=== PATIENT | female | born 1955 | race Caucasian/White ===

== ENCOUNTER 2016-06-03 09:45 | Inpatient (IN) | payer OTHER ==
[~2016-06-03] VITALS: Ht 152.4 cm; Wt 53.1 kg
[~2016-06-03 09:45] MED LIST: ASPI-535 PO; BENA20TA48 PO; CLOP75TA27 PO; DILT180C9 PO; FOLI-49 PO; METO-429 PO; MYCO250C6 PO; OMEP20CA16 PO; PRED-253 PO; SENN8.6C3 PO
[2016-06-03 11:02] LABS: BASOPHILS % 0.1 % (0.0-2.0); EOSINOPHILS # 0.1 10^3/ul (0.0-0.5); EOSINOPHILS % 1.7 % (0.0-7.0); HEMATOCRIT 35.9 % (37.0-47.0); HEMOGLOBIN 11.6 g/dl (12.0-16.0); LYMPHOCYTES # 0.8 10^3/ul (0.8-2.9); LYMPHOCYTES % 16.4 % (15.0-51.0); MEAN CORPUSCULAR HEMOGLOBIN 29.2 pg (29.0-33.0); MEAN CORPUSCULAR HGB CONC 32.4 g/dl (32.0-37.0); MEAN CORPUSCULAR VOLUME 90.3 fl (82.0-101.0); MEAN PLATELET VOLUME 10.8 fl (7.4-10.4); MONOCYTE # 0.6 10^3/ul (0.3-0.9); MONOCYTES % 12.4 % (0.0-11.0); NEUTROPHIL # 3.4 10^3/ul (1.6-7.5); NEUTROPHILS % 69.4 % (39.0-77.0); PLATELET COUNT 174 10^3/UL (140-440); RED BLOOD COUNT 3.98 10^6/ul (4.20-5.40); RED CELL DISTRIBUTION WIDTH 15.4 % (11.5-14.5); UNCORRECTED WBC 4.9 10^3/ul (4.8-10.8); WHITE BLOOD COUNT 4.9 10^3/ul (4.8-10.8)
[2016-06-03 11:12] LABS: CONDITION 1; LH ANALYZER COMMENTS 1; NUCLEATED RED BLOOD CELLS # 0.1 10^3/ul (0.0-0.0); SUSPECT 1
[2016-06-03 11:13] VITALS: Ht 152.4 cm; Wt 53.1 kg
[2016-06-03 11:13] LABS: PROTIME 13.2 Sec (12.2-14.2)
[2016-06-03 11:14] LABS: PARTIAL THROMBOPLASTIN TIME 27.3 Sec (25.0-35.0)
[2016-06-03 11:17] VITALS: BP 159/84; PULSE 59; RESP 16
[2016-06-03] MEDS ORDERED: CHOL100062 PO (11:19)
--- NOTE | 2016-06-03 11:23 | CONS ---
Date/Time of Note Date/Time of Note DATE: 06/03/16 TIME: 11:16 Assessment/Plan Assessment/Plan Chief Complaint/Hosp Course VASCULAR SURGERY CONSULTATION Dear Doctors: Ms. Ericka Aguillon is a 61-year-old female with a longstanding history of bilateral lower extremity gangrene and atherosclerosis with diminished bilateral pedal pulses. Of note, this patient, since September 2015, had undergone bilateral lower extremity interventions with endovascular angioplasty, stenting , and arthrectomy. This was done secondary to having bilateral lower extremity gangrene. Unfortunately, the patient was lost to followup secondary to having insurance issues and her not being able to follow up with us. However, she was seen back in [facility] secondary to her increased tissue loss and rest pain of her bilateral lower extremities in which she had followed up with us and underwent bilateral arterial ultrasound that identified the patient having significant infrapopliteal disease which is similar to her prior interventions. Further, the patient was scheduled for an angiogram. Unfortunately, the patient 's insurance had changed; therefore, we had to reschedule her once her new insurance had been approved. The patient has had a history of gangrene, and after intervention of her right lower extremity and left lower extremity, she had developed adequate demarcation of the fourth and fifth toe on the left, and demarcation of her right fifth toe. The patient is somewhat noncompliant and a little bit difficult to accepting our plans as she likes to pursue her own home remedies with applying medications from her holistic care provider and not necessarily compliant with recommendations given for her wound care. The patient and I had extensive conversations regarding the risk and benefits and alternatives for podiatry intervention, anesthesia, and an angiogram. We have explained to her that because she is a kidney transplant recipient, we are very thoughtful as to try to limit the amount of contrast and would like to separate her interventions; however, the patient feels that if she needs to go under another angiogram, she would rather " and not go through it." Therefore, understanding her concern, we went and reviewed all of her wishes as to how she would like to proceed with this procedure. The patient would like to have this procedure done in a way that she has minimal to no pain during her procedure. We have discussed moderate sedation, we have discussed conscious sedation, we have discussed general anesthesia, and she understands that each one will require different evaluation. If the patient chooses to have general anesthesia, then she would require to have cardiac evaluation and clearance for our intervention. If she does choose that route, then will plan to do bilateral lower extremity interventions at one time; however, with thoughtfulness of her being a kidney transplant. We will limit her dye load and will try to CO2 angiogram for interventions and use intravascular ultrasound for our interventions as needed. At the moment she denies shortness of breath, chest pain, nausea, vomiting, fever or chills. She does have bilateral lower extremity rest pain, specifically in the areas of her gangrene. PHYSICAL EXAMINATION: GENERAL: Alert and oriented x3. LUNGS: Clear to auscultation bilaterally. HEART: S1, S2 present. ABDOMEN: Soft, nontender, nondistended. Bowel sounds positive. EXTREMITIES: Right lower extremity palpable femoral pulse, nonpalpable pedal pulse. Motor, sensory intact. Cap refill 3 to 4 seconds. Right fifth toe with gangrene on the lateral aspect of the toe with demarcation and some dependent rubor on the dorsal aspect of the foot. She had previous ulcers that were on her thigh and calf that have now healed. Left lower extremity palpable femoral pulse, nonpalpable pedal pulse. Motor and sensory intact. Cap refill 3 to 4 seconds. She has circumferential gangrene of her 5th toe which is dry and she has her right 4th toe which has partial gangrene with demarcation. However, the gangrene on her 5th toe has expanded slightly further intermetatarsal region which is concerning. At the moment, she does not have any erythema around her gangrene or sign of any infection. ASSESSMENT AND PLAN: -Bilateral lower extremity atherosclerosis with gangrene: It seems that the patient has come to be agreeable with performing an angiogram for the bilateral lower extremities and interventions. However, she has expressed that she would not like to have the angiogram if it causes her pain, she would rather than to have any interventions done. With this in mind, we have discussed multiple options for interventions with her, and she has agreed to either undergo conscious sedation versus general anesthesia. We have explained to her that if she does want to have general anesthesia will have cardiac evaluation and would require further time in order for us to schedule her. -Her gangrene has worsened and requires antibiotics as there's erythema of bilateral feet. -We have discussed with podiatry regarding her gangrene, and they would like for us to pursue first with an angiogram to evaluate lower extremity perfusion prior to any intervention from their standpoint of debridement and possible amputation. -Discussed vascular optimization (BP meds, diet, nutrition, exercise, sugar control, antiplatelets). -Thank you for allowing us to partake in the care of your patient. Please call with any questions. Problems: Consultation Date/Type/Reason Admit Date/Time Social History Smoking Status: Never smoker Exam/Review of Systems Results Result Diagram: 06/03/16 1046 Results 24 hrs Laboratory Tests Test 06/03/16 10:46 06/03/16 10:51 Activated Partial Thromboplast Time 27.3 Basophils # 0.0 Basophils % 0.1 Blood Morphology Comment Eosinophils # 0.1 Eosinophils % 1.7 Hematocrit 35.9 L Hemoglobin 11.6 L INR International Normalized Ratio 1.00 Lymphocytes # 0.8 Lymphocytes % 16.4 Mean Corpuscular Hemoglobin 29.2 Mean Corpuscular Hemoglobin Concent 32.4 Mean Corpuscular Volume 90.3 Mean Platelet Volume 10.8 H Monocytes # 0.6 Monocytes % 12.4 H Neutrophils # 3.4 Neutrophils % 69.4 Nucleated Red Blood Cells # 0.1 H Nucleated Red Blood Cells % 2.0 H Platelet Count 174 # Prothrombin Time 13.2 Prothrombin Time Ratio 1.0 Red Blood Count 3.98 L Red Cell Distribution Width 15.4 H White Blood Count 4.9 # Bedside Glucose 97 WILD DUARTE MD Jun 03, 2016 11:23
[2016-06-03 11:27] LABS: CALCIUM 9.3 mg/dl (8.4-10.2); CREATININE 0.76 mg/dl (0.44-1.00); POTASSIUM 5.2 mmol/L (3.5-5.1)
[2016-06-03 13:30] VITALS: BP 143/69
[2016-06-03] MEDS ORDERED: ACETAMINOPHEN 325 MG TAB PO PRN (14:00)
[2016-06-03] MEDS ORDERED: morphine 10 MG INJ IM PRN (14:30)
[2016-06-03] MEDS: HYDROCODONE/APAP (5/325) TAB PO PRN (14:35)
[2016-06-03] MEDS ORDERED: NA POLYST SULFON 15 GM/60 ML BTL PO ONE (15:30)
--- NOTE | 2016-06-03 15:59 | CONS ---
DATE OF ADMISSION: 06/03/2016 DATE OF CONSULTATION: 06/03/2016 TYPE OF CONSULTATION: Nephrology. REFERRING PHYSICIAN: Dr. Jeffy Cohen/Dr. Aung Valencia REASON FOR CONSULTATION: Kidney transplant patient, to prevent contrast-induced nephropathy in a pat ient who will need lower extremity angiogram. HISTORY OF PRESENT ILLNESS: This is a 61-year-old female with a past medical history of previous en d-stage renal disease secondary to diabetic nephropathy, was on hemodialysis and had a kidney transp lant done in 2009 at [facility]. The patient has been on Prograf, CellCept and prednisone for immunosuppr ession medications. The patient previously had a left upper extremity AV fistula, currently not work ing. She was seen by vascular surgery, Dr. Valencia for lower extremity angiogram and was plannin g to have possible interventions, but the patient is noted to have a potassium of 5.21 chemistry. S he is also gives a history of not taking kidney transplant medications. The patient gives a history off of medications for a kidney transplant for 2 weeks due to her insurance reasons and not recentl y resumed her kidney transplant medications. At the time of my evaluation, currently she denies any chest pain, palpitation, headache, dizziness, blurry vision, constipation, diarrhea, dysuria, increased urinary frequency. REVIEW OF SYSTEMS: As per HPI. PAST MEDICAL HISTORY: 1. Notable for hypertension, diabetes mellitus, history of a previous end-stage renal disease secon jessica to diabetic nephropathy, status post kidney transplant in 2009 at [facility]. 2. Possible peripheral vascular disease. 3. Anemia of chronic renal disease. 4. History of hypertension. PAST SURGICAL HISTORY: History of right lower extremity kidney transplant surgery, history of left upper extremity AV fistula surgery. SOCIAL HISTORY: No smoking, alcohol or recreational drug use. FAMILY HISTORY: Noncontributory. PHYSICAL EXAMINATION: VITAL SIGNS: Temperature 98.2, heart rate 59, respirations 16, blood pressure 159/84, saturation 10 0% on room air. GENERAL: Awake, alert, in no distress. HEENT: Normal. Oropharynx clear. NECK: Supple, no JVD, no lymphadenopathy. LUNGS: Clear to auscultation. No crackles, no wheezes. HEART: S1, S2, with regular rhythm, no murmur. ABDOMEN: Soft, nontender, nondistended. Bowel sounds are present. EXTREMITIES: No clubbing, cyanosis, or edema. NEUROLOGICAL: Nonfocal, intact. Right lower quadrant kidney, renal allograft is present. No bruit s or tenderness. Normal to palpation. LABORATORY DATA AND DIAGNOSTIC IMAGING: Sodium 142, potassium 5.2, chloride 108, bicarbonate 22, B UN 24, creatinine 0.7, glucose 103, calcium 9.3. PT 13.2, PTT 27.3, INR 1. WBC 4.9, hemoglobin 11. 6, platelet count is 174. IMPRESSION: This is a 61-year-old female with: 1. Left lower extremity gangrene getting admitted for possible lower extremity angiogram. 2. Acute hyperkalemia, potassium 5.2. 3. Status post donor kidney transplant in 2009 at [facility], currently on immunosuppression with Prograf , CellCept, prednisone. 4. History of previous end-stage renal disease on hemodialysis secondary to diabetic nephropathy. 5. History of hypertension. 6. History of diabetes mellitus. 7. History of previous left upper extremity arteriovenous fistula. PLAN: 1. Thank you, Dr. Cohen, for this consultation. I will give the patient Kayexalate 15 grams p.o . x1. 2. Renal allograft ultrasound in the right lower quadrant to assess for kidney transplant. 3. Continue the prednisone and CellCept. The patient was on Prograf at home, but does not remember the dose so I will find out about her Prograf dose. We will continue the Prograf also. 4. The patient will be started on Mucomyst 1200 mg p.o. b.i.d. to prevent any contrast-induced neph ropathy. 5. Depending on the patient's course in the hospital, will follow up. Thank you, Dr. Cohen/Dr. Valencia for this consultation. I will continue to follow this patient . Dictated By: RAMON KEMP MD, KP/SIRISHA Conf#: [id number] DID#: [id number]
--- NOTE | 2016-06-03 18:51 | CONS ---
DATE OF ADMISSION: 06/03/2016 DATE OF CONSULTATION: 06/03/2016 TYPE OF CONSULTATION: Infectious Disease. REASON FOR CONSULTATION: Antibiotic management. HISTORY OF PRESENT ILLNESS: Ericka Aguillon is a 61-year-old female who is admitted with gangr frantz of bilateral feet. Her past problems include: 1. History of end-stage renal disease secondary to diabetic nephropathy who had a kidney transplant in 2009 at [facility]. She has been on Prograf, CellCept and prednisone for immunosuppression. 2. Previous left upper extremity AV fistula, currently not working. 3. Severe peripheral vascular disease, probably secondary to her diabetic condition. She is not ta shama her kidney transplant medication as well for the last 2 weeks. Other problems include hyperten sharmin and anemia of chronic disease. PAST SURGICAL HISTORY: History of the right lower extremity surgery, kidney transplant surgery, his tory of left upper extremity AV fistula. PAST MEDICAL HISTORY: Operations as outlined. FAMILY HISTORY: Noncontributory. SOCIAL HISTORY: She does not smoke, drink or abuse drugs. ALLERGIES: NONE TO PENICILLIN, SULFA OR FOODS. MEDICATIONS: Per chart. REVIEW OF SYSTEMS: As per HPI. PHYSICAL EXAMINATION: GENERAL: The patient is a well-developed, somewhat thin female who speaks mostly Bel[place]ian, is alert, responsive, in no acute distress. VITAL SIGNS: Stable. She is afebrile. SKIN: Without generalized rash. HEENT: Within normal limits. NECK: Supple. LYMPH NODES: None palpable. CHEST: Decreased breath sounds at the bases. HEART: Without murmur or gallop. ABDOMEN: Soft, nontender, without organosplenomegaly or masses. EXTREMITIES: The right lower extremity has right fifth toe gangrene on the lateral aspect of the to e with demarcation and some dependent rubor. The left lower extremity has palpable pulses as does t he right have palpable femoral pulses, nonpalpable pedal pulses for both. She has circumferential g angrene of her 5th toe which is dry and she has right fourth toe which has partial gangrene with dem arcation, however, gangrene of the fifth toe has increased slightly. She has no erythema surroundin g the gangrene or signs of infection. RECTAL AND GENITAL: Deferred. NEUROLOGIC: No focal neurological abnormalities. IMPRESSION AND PLAN: The patient has bilateral lower extremity atherosclerosis with gangrene. The issue is performing an angiogram. She does not want any interventions done. She can undergo consci ous sedation versus general anesthesia. Her gangrene has worsened according to Dr. Valencia and re quires antibiotics as there is erythema of bilateral feet. White count is 4.9, H and H 11.6 and 35 .9, platelet count 174,000. I think in view of her kidney problems, we have a choice of either usin g daptomycin, clindamycin or Zyvox and I think that I would prefer to use Zyvox at this point in jessa e. I will dictate my findings to Dr. Valencia and Dr. Theo Briscoe. Dictated By: TRISTAN CHRISTIE MD, JD/SIRISHA Conf#: [id number] DID#: [id number]
--- NOTE | 2016-06-03 19:06 | HP ---
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 The patient with bilateral lower extremity atheroscler osis. The patient was followed by Dr. Valencia and had multiple interventions including endovascul ar angioplasty, stenting and arthrectomy. The patient also had a history of skin graft to thigh les ions. The patient also presented with bilateral gangrenous toes, a right gangrenous toe that the pa tient developed 1 year ago and 5th and 4th metatarsal gangrenous ulcers on the left lower extremity that the patient stated started developing 2 years ago. The patient also complains of bilateral low er extremity pain and worsened gangrene and presented to [facility]. The patient was not followed due to loss of insurance for some time. However, she presented to [facility], was seen by Dr. Valencia and underwent bilateral arterial ultrasound that identified significant infrapopliteal disease. The patient is admitted for further evaluation and management. The patient denied any fever. Denies any chest pain, denies shortness of breath. Denies nausea, v omiting, diarrhea. PAST MEDICAL HISTORY: Per HPI. PAST SURGICAL HISTORY: Status post renal transplant in 2009, status post left upper extremity arter iovenous fistula for dialysis many years ago, status post skin graft to the thigh and status post nu merous vascular interventions. FAMILY HISTORY: Negative for diabetes and cardiac disease. SOCIAL HISTORY: The patient lives at home with her family. The patient denies any tobacco use, den ies any illicit drug use, denies any alcohol use. ALLERGIES: THE PATIENT HAS NO KNOWN ALLERGIES. MEDICATIONS ON ADMISSION: 1. Benazepril. 2. Cholecalciferol. 3. Plavix. 4. Diltiazem. 5. Folic acid. 6. Metoprolol. 7. CellCept. 8. Omeprazole. 9. Prednisone. 10. Sennosides. REVIEW OF SYSTEMS: A 12-point review of systems is negative unless what mentioned in HPI. PHYSICAL ASSESSMENT: GENERAL: A well-developed, well-nourished female in no acute distress. VITAL SIGNS: Temperature is 98.2, pulse is 59, blood pressure is 143/69, respiratory rate 16, oxyge n saturation 100% on room air. HEENT: Head is atraumatic, normocephalic. Pupils equal, round, reactive to light and accommodation . Oral mucosa is pink, moist. NECK: Supple. No cervical lymphadenopathy, no thyromegaly. CHEST: Lungs clear bilaterally. There are no rhonchi, wheezes, rales noted. CARDIOVASCULAR: Normal S1, S2. The patient has systolic murmur III/. ABDOMEN: Round, soft, nondistended, nontender. Bowel sounds present. There is no guarding or rebo und tenderness. EXTREMITIES: The patient has right 5th toe gangrene and left 5th and 4th toe gangrene, and patient has multiple discolorations over bilateral thighs. SKIN: There is no rash, petechiae. NEUROLOGIC: The patient is awake, alert and oriented x4. No focal deficit noted. Motor strength o f 5/5 in all extremities. LABORATORY DATA ON ADMISSION: CBC: White blood cells 4.9, hemoglobin is 11.6, hematocrit 35.9, princess telets 178. Chemistry: Sodium is 142, potassium 5.2, chloride 108, carbon dioxide 22, anion gap 17 , BUN is 24, creatinine 0.76, glucose 103, calcium is 9.3. PT 13.2, INR is 1.08, PTT is 27.3. ASSESSMENT AND PLAN: 1. Bilateral lower extremity atherosclerosis with gangrene. The patient is followed by Dr. Subhash alicea in vascular surgery consultation, planned for an angiogram. Will obtain cardiology clearance maegan Powell. 2. End-stage renal disease, status post renal transplant. Continue patient on prednisone and CellC ept. 3. Hypertension. Continue benazepril, Lopressor and diltiazem. 4. 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 Continue Plavix. 5. Anemia of chronic kidney disease. Continue to monitor hemoglobin and hematocrit. 6. Severe peripheral arterial disease. PLAN: Will continue Madeline and morphine for pain and Zofran p.r.n. for nausea. Resume patient's anastacio e medication. Will obtain 2D echo. Further recommendations based on clinical course. Plan of care discussed with Dr. Hall. Dictated By: LES GILLILAND NP anibal HALL MD, SR/SIRISHA Conf#: [id number] DID#: [id number]
[2016-06-03] MEDS: SENNA TAB PO SCH (20:52)
[2016-06-03] MEDS: LINEZOLID 600 MG/D5W (PMX) 300 ML IVPB SCH (20:52)
[2016-06-03] MEDS: MYCOPHENOLATE 250 MG CAP PO SCH (20:52)
[2016-06-03] MEDS: TACROLIMUS 0.5 MG CAP PO SCH (20:53)
[2016-06-03] MEDS: ACETYLCYSTEINE 600 MG CAP PO SCH (20:53)
[2016-06-03] MEDS: METOPROLOL 50 MG TAB PO SCH (20:54)
[2016-06-03] MEDS ORDERED: SENNA TAB PO SCH (21:00)
--- NOTE | 2016-06-03 21:48 | CONS ---
DATE OF ADMISSION: 06/03/2016 DATE OF CONSULTATION: 06/03/2016 REASON FOR CONSULTATION: Preoperative evaluation. REQUESTING PHYSICIAN: Dr. Duarte from the vascular surgery service and Dr. Kristin Hall. HISTORY OF PRESENT ILLNESS: Ms. Aguillon is a very pleasant 61-year-old Sierra Leonean speaking female with a history of prior kidney transplantation in 2009, PAD with nonhealing left lower extremity gangrenou s changes of the toe, hypertension who [facility] with ongoing nonheal ing ulceration and gangrenous changes. The patient has now been admitted for further evaluation wit h possible need for surgical intervention for treatment of her gangrenous toe. At this time, the pa mirandant denies chest pain, shortness of breath, prior myocardial infarction, CVA. PAST MEDICAL HISTORY: As above in HPI. MEDICATIONS CURRENTLY IN HOSPITAL: 1. Benazepril 10 mg daily. 2. Plavix 75 mg daily. 3. Diltiazem CD ____ mg daily. 4. Folic acid 1 mg daily. 5. Prednisone 5 mg daily. 6. Lopressor 50 mg p.o. b.i.d. 7. CellCept 1000 mg b.i.d. 8. Senna 8.6 p.o. b.i.d. 9. Mucomyst 1200 mg b.i.d. 10. Prograf 0.5 q.12h. 11. Linezolid q.12. 12. [place] p.r.n. 13. Morphine p.r.n. ALLERGIES: NO KNOWN DRUG ALLERGIES. SOCIAL HISTORY: No tobacco, ETOH, or illicit drug use. FAMILY HISTORY: No history of sudden cardiac or early CAD. REVIEW OF SYSTEMS: As above in HPI. CONSTITUTIONAL: No fevers, chills. PULMONARY: No current shortness of breath. CARDIOVASCULAR: No current chest pain. GASTROINTESTINAL: No vomiting. GENITOURINARY: No hematuria. MUSCULOSKELETAL: Left toe gangrenous changes. PSYCHIATRIC: No documented psych history. NEUROLOGIC: No documented history of CVA. ENDOCRINE: Diabetes mellitus. PHYSICAL EXAMINATION: VITAL SIGNS: Temperature 98.2, blood pressure most recently 143/69, pulse in the 60s, respirations 16, saturating 99%. GENERAL: The patient is alert, awake, in no acute distress. NECK: JVP approximately 9 cm water. CHEST: Fair movement throughout with mildly decreased breath sounds at bases bilaterally. HEART: Regular rate and rhythm. Normal S1, S2. I/ systolic murmur, nondisplaced PMI. ABDOMEN: Positive bowel sounds, soft. EXTREMITIES: Trace edema. Difficult to palpate distal pulses, bilateral posterior tibial. Gangren ous changes the toe. LABORATORY DATA: As above in HPI. No further labs for my review at this time. IMAGING STUDIES: As above in HPI. Her chest x-ray from the revealing no acute cardiopulmonary abnormalities. Lower extremity arterial Doppler revealing abnormal flow in the calf arteries with significant stenosis on the left side. Abnormal flow is present throughout, which may indicate infl ow disease at the iliac. A foot x-ray that also revealed no definite radiographic evidence of acute fracture or osteomyelitis, but ____ is somewhat limited evaluation. The patient additionally has h ad a stress test in 10/2015. At that time revealing mildly diminished diffusion along the inferior wall on stress and rest images without evidence for reversible ischemia. ELECTROCARDIOGRAM: Reveals normal sinus rhythm at 62, normal axis, normal intervals, with inferior T-wave inversion, anterior T-wave inversion. IMPRESSION: 1. Preoperative evaluation prior to intervention on lower extremities for gangrenous changes of the toe. 2. Abnormal electrocardiogram, assess for acute coronary syndrome. 3. Hypertension, mildly elevated. 4. Status post renal transplant. 5. Peripheral arterial disease with lower extremity gangrenous changes and nonhealing wound. 6. Anemia, mild. RECOMMENDATIONS: 1. At this time, would check serial EKGs to assess for any significant ongoing changes. EKG in the morning, EKG for any complaints of chest pain or change in rhythm. 2. Will check a 2D echo to reassess the patient's ejection fraction, wall motion, and any major shreya ve abnormalities. 3. Continue the patient's current beta-donna to control heart rate and blood pressure. 4. Continue the patient's Plavix at this time for prevention of cardiovascular events. 5. Would discontinue the patient's diltiazem and benazepril with further up titration as necessary to improve overall systolic blood pressure control. 6. Continue patient's local wound care. 7. Further recommendations pertaining to the surgical candidacy of this patient will be made after completion of above studies. Dictated By: TIMOTHY SOSA/SIRISHA Conf#: [id number] [facility]#: [id number] CC: KRISTIN HALL MD; WILD DUARTE MD;*[facility]*
[2016-06-04 06:00] LABS: BASOPHILS % 0.1 % (0.0-2.0); EOSINOPHILS # 0.1 10^3/ul (0.0-0.5); EOSINOPHILS % 2.6 % (0.0-7.0); HEMATOCRIT 33.4 % (37.0-47.0); HEMOGLOBIN 10.6 g/dl (12.0-16.0); LYMPHOCYTES # 0.8 10^3/ul (0.8-2.9); MEAN CORPUSCULAR HGB CONC 31.9 g/dl (32.0-37.0); MEAN PLATELET VOLUME 11.3 fl (7.4-10.4); MONOCYTE # 0.8 10^3/ul (0.3-0.9); MONOCYTES % 17.7 % (0.0-11.0); NEUTROPHIL # 2.8 10^3/ul (1.6-7.5); NEUTROPHILS % 61.6 % (39.0-77.0); PLATELET COUNT 157 10^3/UL (140-440); RED BLOOD COUNT 3.67 10^6/ul (4.20-5.40); RED CELL DISTRIBUTION WIDTH 15.4 % (11.5-14.5); UNCORRECTED WBC 4.5 10^3/ul (4.8-10.8); WHITE BLOOD COUNT 4.5 10^3/ul (4.8-10.8)
[2016-06-04 06:16] LABS: ALBUMIN 3.3 g/dl (3.3-4.9); INR 1.14; POTASSIUM 4.7 mmol/L (3.5-5.1); PROTIME 14.6 Sec (12.2-14.2); PT RATIO 1.1
[2016-06-04 06:17] LABS: PARTIAL THROMBOPLASTIN TIME 28.5 Sec (25.0-35.0)
[2016-06-04 06:18] LABS: CREATININE 0.84 mg/dl (0.44-1.00)
[2016-06-04 06:19] LABS: ALBUMIN/GLOBULIN RATIO 1.32; TOTAL PROTEIN 5.8 g/dl (6.1-8.1)
[2016-06-04 06:20] LABS: CALCIUM 8.8 mg/dl (8.4-10.2)
[2016-06-04 06:29] LABS: CONDITION 1; LH ANALYZER COMMENTS 1
[2016-06-04 06:34] LABS: CHOL/HDL RATIO 4.5 RATIO
[2016-06-04 07:26] VITALS: BP 118/68; RESP 18
[2016-06-04] MEDS: CHOLECALCIFEROL 1,000 UNIT TAB PO SCH (08:44)
[2016-06-04] MEDS: TACROLIMUS 0.5 MG CAP PO SCH ×2 (08:44→20:33)
[2016-06-04] MEDS: ACETYLCYSTEINE 600 MG CAP PO SCH ×2 (08:45→20:33)
[2016-06-04] MEDS: METOPROLOL 50 MG TAB PO SCH ×2 (08:45→20:37)
[2016-06-04] MEDS: BENAZEPRIL 20 MG TAB PO SCH (08:45)
[2016-06-04] MEDS: MYCOPHENOLATE 250 MG CAP PO SCH ×2 (08:46→20:33)
[2016-06-04] MEDS: FOLIC ACID 1 MG TAB PO SCH (08:46)
[2016-06-04] MEDS: CLOPIDOGREL 75 MG TAB PO SCH (08:46)
[2016-06-04] MEDS: predniSONE 5 MG TAB PO SCH (08:46)
[2016-06-04] MEDS: SENNA TAB PO SCH ×2 (08:46→20:33)
[2016-06-04] MEDS: LINEZOLID 600 MG/D5W (PMX) 300 ML IVPB SCH ×2 (08:47→20:33)
[2016-06-04] MEDS: DILTIAZEM (CD) 180 MG CAP PO SCH (08:48)
--- NOTE | 2016-06-04 10:33 | CONS ---
Date/Time of Note Date/Time of Note DATE: 06/04/16 TIME: 10:30 Assessment/Plan Assessment/Plan Additional Assessment/Plan 1. Preoperative evaluation prior to intervention on lower extremities for gangrenous changes of the toe- no evidence of ischemia. Pt had Stress test 2015 - no reversible disae. OK to proceed with vascular studies/Rx as needed. 2. Abnormal electrocardiogram, assess for acute coronary syndrome. 3. Hypertension, mildly elevated- BP well Rx now. 4. Status post renal transplant- renal team to follow. 5. Peripheral arterial disease with lower extremity gangrenous changes and nonhealing wound- awaiting vascular dispo and care. 6. Anemia, mild- H/H stable - no bleeding noted. Consultation Date/Type/Reason Admit Date/Time Jun 03, 2016 at 11:09 Initial Consult Date 24 HR Interval Summary Free Text/Dictation no evidence of ischemia. Pt had Stress test 10/2015 - no reversible disease. OK to proceed with vascular studies/Rx as needed. Stable. ROS: No fever, no chills, no nausea, no vomiting, no diarrhea/constipation No recent weight changes No chest pain, no PND, no orthopnea No dizziness, blurred vision No thirst, no heat or cold intolerance Exam/Review of Systems Vital Signs Vitals Vital Signs Date Time Temp Pulse Resp B/P Pulse Ox O2 Delivery O2 Flow Rate FiO2 06/04/16 07:26 97.9 64 18 118/68 100 06/03/16 11:17 Room Air Intake and Output 06/03/16 06/03/16 06/04/16 15:00 23:00 07:00 Intake Total 940 ml 200 ml Balance 940 ml 200 ml Exam General: WN/WD/NAD, AOx 3 (Bulgarian) HEENT: Unicetric/atraumatic/EOMI (follow commands) NECK: JVD elevated, no thyromegaly Lymph: no lymphadenopathy HEART: regular with no S3, II/ systolic murmur at apex LUNGS: Coarse sounds ABD: soft, NT, ND, +BS : Intact Neuro: non focal SKIN: chronic changes EXT: trace edema, PAD Results Result Diagram: 06/04/16 0455 06/04/16 0455 Results 24 hrs Laboratory Tests Test 06/03/16 10:46 06/03/16 10:51 06/04/16 01:09 06/04/16 04:55 Activated Partial Thromboplast Time 27.3 28.5 Anion Gap 17 H 15 Basophils # 0.0 0.0 Basophils % 0.1 0.1 Blood Morphology Comment Blood Urea Nitrogen 24 H 22 H Calcium Level 9.3 8.8 Carbon Dioxide Level 22 26 Chloride Level 108 106 Creatinine 0.76 0.84 Eosinophils # 0.1 0.1 Eosinophils % 1.7 2.6 Glucose Level 103 98 Hematocrit 35.9 L 33.4 L Hemoglobin 11.6 L 10.6 L INR International Normalized Ratio 1.00 1.14 Lymphocytes # 0.8 0.8 Lymphocytes % 16.4 18.0 Mean Corpuscular Hemoglobin 29.2 29.0 Mean Corpuscular Hemoglobin Concent 32.4 31.9 L Mean Corpuscular Volume 90.3 91.0 Mean Platelet Volume 10.8 H 11.3 H Monocytes # 0.6 0.8 Monocytes % 12.4 H 17.7 H Neutrophils # 3.4 2.8 Neutrophils % 69.4 61.6 Nucleated Red Blood Cells # 0.1 H 0.0 Nucleated Red Blood Cells % 2.0 H 0.0 Platelet Count 174 # 157 Potassium Level 5.2 H 4.7 Prothrombin Time 13.2 14.6 H Prothrombin Time Ratio 1.0 1.1 Red Blood Count 3.98 L 3.67 L Red Cell Distribution Width 15.4 H 15.4 H Sodium Level 142 142 White Blood Count 4.9 # 4.5 L Bedside Glucose 97 Troponin I 0.018 < 0.012 Alanine Aminotransferase (ALT/SGPT) 30 Albumin 3.3 Albumin/Globulin Ratio 1.32 Alkaline Phosphatase 170 H Aspartate Amino Transf (AST/SGOT) 24 Cholesterol Level 155 Cholesterol/HDL Ratio 4.5 Direct Bilirubin 0.00 Globulin 2.50 HDL Cholesterol 34 L Indirect Bilirubin 0.0 LDL Cholesterol, Calculated 101 Total Bilirubin 0.0 L Total Protein 5.8 L Triglycerides Level 99 Medications Medications Current Medications Benazepril HCl (Lotensin) 10 mg DAILY PO Last administered on 06/04/16 08:45; Admin Dose 10 MG; Start 06/04/16 at 09:00 Cholecalciferol (Vitamin D) 1,000 unit DAILY PO Last administered on 06/04/16 08:44; Admin Dose 1,000 UNIT; Start 06/04/16 at 09:00 Clopidogrel Bisulfate (plaVIX) 75 mg DAILY PO Last administered on 06/04/16 08 :46; Admin Dose 75 MG; Start 06/04/16 at 09:00 Diltiazem HCl (Cardizem Cd) 180 mg DAILY PO Last administered on 06/04/16 08: 48; Admin Dose 180 MG; Start 06/04/16 at 09:00 Folic Acid (Folic Acid) 1 mg DAILY PO Last administered on 06/04/16 08:46; Admin Dose 1 MG; Start 06/04/16 at 09:00 Metoprolol Tartrate (Lopressor) 50 mg BID PO Last administered on 06/03/16 20: 54; Admin Dose 50 MG; Start 06/03/16 at 21:00 Mycophenolate Mofetil (Cellcept) 1,000 mg BID PO Last administered on 08:46; Admin Dose 1,000 MG; Start 06/03/16 at 21:00 Prednisone (Prednisone) 5 mg DAILY PO Last administered on 06/04/16 08:46; Admin Dose 5 MG; Start 06/04/16 at 09:00 Acetaminophen (Tylenol Tab) 650 mg Q4H PRN PO PAIN AND OR ELEVATED TEMP; Start 06/03/16 at 14:00 Acetaminophen/ Hydrocodone Bitart ([place] (5/325)) 1 tab Q4H PRN PO PAIN Last administered on 06/03/16 14:35; Admin Dose 1 TAB; Start 06/03/16 at 14:30 Morphine Sulfate (morphine) 2 mg Q4H PRN IV PAIN 7-10; Start 06/03/16 at 14:00 Acetylcysteine (Nac) 1,200 mg BID PO Last administered on 06/04/16 08:45; Admin Dose 1,200 MG; Start 06/03/16 at 21:00 Tacrolimus 0.5 mg 0.5 mg Q12 PO Last administered on 06/04/16 08:44; Admin Dose 0.5 MG; Start 06/03/16 at 21:00 Linezolid (Zyvox 600mg/D5W (Pmx)) 300 ml @ 300 mls/hr Q12 IVPB Last administered on 06/04/16 08:47; Admin Dose 300 MLS/HR; Start 06/03/16 at 21:00 Senna (Senokot) 1 tab BID PO Last administered on 06/04/16t 08:46; Admin Dose 1 TAB; Start 06/03/16 at 21:00 MIRELLA MOSER MD Jun 04, 2016 10:33
--- NOTE | 2016-06-04 12:20 | CONS ---
Date/Time of Note Date/Time of Note DATE: 06/04/16 TIME: 12:17 Assessment/Plan Assessment/Plan Additional Assessment/Plan 1. Left lower extremity gangrene getting admitted for possible lower extremity angiogram. 2. Acute hyperkalemia, potassium 5.2. 3. Status post donor kidney transplant in 2009 at [facility], currently on immunosuppression with Prograf, CellCept, prednisone. 4. History of previous end-stage renal disease on hemodialysis secondary to diabetic nephropathy. 5. History of hypertension. 6. History of diabetes mellitus. 7. History of previous left upper extremity arteriovenous fistula. PLAN: K normal today Plan for Right lower quadrant Renal allograft US pt is cleared to have angigoram from renal point of view, currently she is on Mucocyst BID will start IVF hydration with NS 1mg/kg/hr Pre and Post angiogram will follow up Consultation Date/Type/Reason Admit Date/Time Jun 03, 2016 at 11:09 Initial Consult Date May Type of Consultation: NEPHROLOGY Reason for Consultation Kidney transplant pt with LE gangrene, evaluate for prevention of contrast induced nephropathy Referring Provider: WILD DUARTE MD 24 HR Interval Summary Free Text/Dictation pt remained stable, possible plan for LE angiogram on Friday Exam/Review of Systems Vital Signs Vitals Vital Signs Date Time Temp Pulse Resp B/P Pulse Ox O2 Delivery O2 Flow Rate FiO2 06/04/16 07:26 97.9 64 18 118/68 100 06/03/16 11:17 Room Air Intake and Output 06/03/16 06/03/16 06/04/16 14:59 22:59 06:59 Intake Total 940 ml 200 ml Balance 940 ml 200 ml Exam GENERAL: Awake, alert, in no distress. HEENT: Normal. Oropharynx clear. NECK: Supple, no JVD, no lymphadenopathy. LUNGS: Clear to auscultation. No crackles, no wheezes. HEART: S1, S2, with regular rhythm, no murmur. ABDOMEN: Soft, nontender, nondistended. Bowel sounds are present. EXTREMITIES: No clubbing, cyanosis, or edema. NEUROLOGICAL: Nonfocal, intact. Right lower quadrant kidney, renal allograft is present. No bruits or tenderness. Normal to palpation. Results Result Diagram: 06/04/16 0455 06/04/16 0455 Results 24 hrs Laboratory Tests Test 06/04/16 01:09 06/04/16 04:55 Troponin I 0.018 < 0.012 Activated Partial Thromboplast Time 28.5 Alanine Aminotransferase (ALT/SGPT) 30 Albumin 3.3 Albumin/Globulin Ratio 1.32 Alkaline Phosphatase 170 H Anion Gap 15 Aspartate Amino Transf (AST/SGOT) 24 Basophils # 0.0 Basophils % 0.1 Blood Morphology Comment Blood Urea Nitrogen 22 H Calcium Level 8.8 Carbon Dioxide Level 26 Chloride Level 106 Cholesterol Level 155 Cholesterol/HDL Ratio 4.5 Creatinine 0.84 Direct Bilirubin 0.00 Eosinophils # 0.1 Eosinophils % 2.6 Globulin 2.50 Glucose Level 98 HDL Cholesterol 34 L Hematocrit 33.4 L Hemoglobin 10.6 L INR International Normalized Ratio 1.14 Indirect Bilirubin 0.0 LDL Cholesterol, Calculated 101 Lymphocytes # 0.8 Lymphocytes % 18.0 Mean Corpuscular Hemoglobin 29.0 Mean Corpuscular Hemoglobin Concent 31.9 L Mean Corpuscular Volume 91.0 Mean Platelet Volume 11.3 H Monocytes # 0.8 Monocytes % 17.7 H Neutrophils # 2.8 Neutrophils % 61.6 Nucleated Red Blood Cells # 0.0 Nucleated Red Blood Cells % 0.0 Platelet Count 157 Potassium Level 4.7 Prothrombin Time 14.6 H Prothrombin Time Ratio 1.1 Red Blood Count 3.67 L Red Cell Distribution Width 15.4 H Sodium Level 142 Total Bilirubin 0.0 L Total Protein 5.8 L Triglycerides Level 99 White Blood Count 4.5 L Medications Medications Current Medications Benazepril HCl (Lotensin) 10 mg DAILY PO Last administered on 06/04/16 08:45; Admin Dose 10 MG; Start 06/04/16 at 09:00 Cholecalciferol (Vitamin D) 1,000 unit DAILY PO Last administered on 06/04/16 08:44; Admin Dose 1,000 UNIT; Start 06/04/16 at 09:00 Clopidogrel Bisulfate (plaVIX) 75 mg DAILY PO Last administered on 06/04/16 08 :46; Admin Dose 75 MG; Start 06/04/16 at 09:00 Diltiazem HCl (Cardizem Cd) 180 mg DAILY PO Last administered on 06/04/16 08: 48; Admin Dose 180 MG; Start 06/04/16 at 09:00 Folic Acid (Folic Acid) 1 mg DAILY PO Last administered on 06/04/16 08:46; Admin Dose 1 MG; Start 06/04/16 at 09:00 Metoprolol Tartrate (Lopressor) 50 mg BID PO Last administered on 06/03/16 20: 54; Admin Dose 50 MG; Start 06/03/16 at 21:00 Mycophenolate Mofetil (Cellcept) 1,000 mg BID PO Last administered on 08:46; Admin Dose 1,000 MG; Start 06/03/16 at 21:00 Prednisone (Prednisone) 5 mg DAILY PO Last administered on 06/04/16 08:46; Admin Dose 5 MG; Start 06/04/16 at 09:00 Acetaminophen (Tylenol Tab) 650 mg Q4H PRN PO PAIN AND OR ELEVATED TEMP; Start 06/03/16 at 14:00 Acetaminophen/ Hydrocodone Bitart ([place] (5/325)) 1 tab Q4H PRN PO PAIN Last administered on 06/03/16 14:35; Admin Dose 1 TAB; Start 06/03/16 at 14:30 Morphine Sulfate (morphine) 2 mg Q4H PRN IV PAIN 7-10; Start 06/03/16 at 14:00 Acetylcysteine (Nac) 1,200 mg BID PO Last administered on 06/04/16 08:45; Admin Dose 1,200 MG; Start 06/03/16 at 21:00 Tacrolimus 0.5 mg 0.5 mg Q12 PO Last administered on 06/04/16 08:44; Admin Dose 0.5 MG; Start 06/03/16 at 21:00 Linezolid (Zyvox 600mg/D5W (Pmx)) 300 ml @ 300 mls/hr Q12 IVPB Last administered on 06/04/16 08:47; Admin Dose 300 MLS/HR; Start 06/03/16 at 21:00 Senna (Senokot) 1 tab BID PO Last administered on 06/04/16 08:46; Admin Dose 1 TAB; Start 06/03/16 at 21:00 RAMON KEMP MD Jun 04, 2016 12:20
--- NOTE | 2016-06-04 12:55 | PN ---
Date/Time of Note Date/Time of Note DATE: 06/04/16 TIME: 12:52 Assessment/Plan Lines/Catheters IV Catheter Type (from [facility]): Peripheral IV [place] in Place (from [facility]): No Assessment/Plan Chief Complaint/Hosp Course -Bilateral lower extremity atherosclerosis with gangrene: It seems that the patient has come to be agreeable with performing an angiogram for the bilateral lower extremities and interventions. However, she has expressed that she would not like to have the angiogram if it causes her pain, she "would rather than to have any interventions done". With this in mind, we have discussed multiple options for interventions with her, and she has agreed to either undergo conscious sedation versus general anesthesia. We have explained to her that if she does want to have general anesthesia will have cardiac evaluation and would require further time in order for us to schedule her. -Her gangrene has worsened and requires antibiotics as there's erythema of bilateral feet. -We have discussed with podiatry regarding her gangrene, and they would like for us to pursue first with an angiogram to evaluate lower extremity perfusion prior to any intervention from their standpoint of debridement and possible amputation. -Will need nephrology evaluation and hydration prior to intervention - appreciate nephrology feedback -Discussed vascular optimization (BP meds, diet, nutrition, exercise, sugar control, antiplatelets). -Thank you for allowing us to partake in the care of your patient. Please call with any questions. Problems: Subjective 24 Hr Interval Summary no new vascular events overnight Exam/Review of Systems Vital Signs Vitals Vital Signs Date Time Temp Pulse Resp B/P Pulse Ox O2 Delivery O2 Flow Rate FiO2 06/04/16 07:26 97.9 64 18 118/68 100 06/03/16 11:17 Room Air Intake and Output 06/03/16 06/03/16 06/04/16 15:00 23:00 07:00 Intake Total 940 ml 200 ml Balance 940 ml 200 ml Exam Free Text/Dictation GENERAL: Alert and oriented x3. LUNGS: Clear to auscultation bilaterally. HEART: S1, S2 present. ABDOMEN: Soft, nontender, nondistended. Bowel sounds positive. EXTREMITIES: Right lower extremity palpable femoral pulse, nonpalpable pedal pulse. Motor, sensory intact. Cap refill 3 to 4 seconds. fifth toe with gangrene on the lateral aspect of the toe with demarcation with erythema and some dependent rubor on the dorsal aspect of the foot. She had previous ulcers that were on her thigh and calf that have now healed. Left lower extremity palpable femoral pulse, nonpalpable pedal pulse. Motor and sensory intact. Cap refill 3 to 4 seconds. She has circumferential gangrene of her 5th toe which is dry and she has her right 4th toe which has partial gangrene with demarcation with erythema, the gangrene on her 5th toe has expanded slightly further intermetatarsal region which is concerning Results Result Diagram: 06/04/16 0455 06/04/16 0455 WILD DUARTE MD Jun 04, 2016 12:55
--- NOTE | 2016-06-04 13:11 | PN ---
DATE: 06/04/2016 INFECTIOUS DISEASE PROGRESS NOTE SUBJECTIVE: The patient is alert, sitting up in a chair. Looks comfortable, complaining of left fo ot pain. She is in no distress. No fevers. ANTIMICROBIALS: She is on Zyvox. MICROBIOLOGY: Cultures are pending. LABORATORY DATA: WBC today 4.5, platelets 157, no shift, no bands. BUN 22, creatinine 0.84. PHYSICAL EXAMINATION: GENERAL: This is a well-nourished, well-developed, fragile, elderly woman who is alert, in no distr ess. HEENT: Head atraumatic, normocephalic. Sclerae anicteric. Buccal mucosa pink. NECK: Supple, trachea midline. CHEST: Rise symmetrical. Breath sounds clear. HEART: S1, S2. ABDOMEN: Soft, bowel sounds present. EXTREMITIES: Left foot gangrenous change and wound with some drainage. Right foot also with some g angrenous changes. ASSESSMENT: 1. Bilateral lower extremity gangrene. 2. End-stage renal disease with a history of kidney transplant in 2009, on Prograf, CellCept, and p rednisone. 3. History of left upper extremity AV fistula currently not working. 4. Severe peripheral vascular disease. PLAN: The patient remains stable. We will keep her on current antimicrobials for now. Follow telma mmendations of consultants. Pending angiogram. Dictated By: JACQUES HUERTA E [employer] for TRISTAN RIOS/SIRISHA Conf#: [id number] DID#: [id number]
--- NOTE | 2016-06-04 14:38 | RADRPT ---
Vent Rate: 62 bpm RR Interval: 0 msec [place] Interval: 174 msec QRS Duration: 84 msec QT Interval: 468 msec QTC Interval: 475 msec P-R-T [place]: 55 - 44 - 19 degrees Normal sinus rhythm Nonspecific T wave abnormality Prolonged QT Abnormal ECG Electronically Signed By: Dionicio Maza [id number]
--- NOTE | 2016-06-04 14:43 | RADRPT ---
Vent Rate: 60 bpm RR Interval: 0 msec [place] Interval: 172 msec QRS Duration: 86 msec QT Interval: 432 msec QTC Interval: 432 msec P-R-T [place]: 52 - 47 - 10 degrees Normal sinus rhythm Nonspecific T wave abnormality Abnormal ECG Electronically Signed By: Dionicio Maza [id number]
--- NOTE | 2016-06-04 16:28 | PN ---
Date/Time of Note Date/Time of Note DATE: 06/04/16 TIME: 16:25 Assessment/Plan VTE Prophylaxis VTE Prophylaxis Intervention: SCD's Lines/Catheters IV [facility]ter Type (from [facility]): Peripheral IV Urinary Cath still in place: No Assessment/Plan Chief Complaint/Hosp Course ASSESSMENT AND PLAN: 1. Bilateral lower extremity atherosclerosis with gangrene. The patient is followed by Dr. Valencia in vascular surgery consultation, planned for an angiogram. cardiology clearance from Dr. Powell. Dr. Bowen is following from infectious disease standpoint. 2. End-stage renal disease, status post renal transplant. Continue patient on prednisone and CellCept. 3. Hypertension. Continue benazepril, Lopressor and diltiazem. 4. 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 Continue Plavix. 5. Anemia of chronic kidney disease. Continue to monitor hemoglobin and hematocrit. 6. Severe peripheral arterial disease. Further recommendations based on clinical course. Plan of care discussed with Dr. Cohen. Problems: Subjective 24 Hr Interval Summary Free Text/Dictation Patient is undergoing ultrasound currently, no nausea vomiting, remains afebrile , pain is well controlled. Exam/Review of Systems Vital Signs Vitals Vital Signs Date Time Temp Pulse Resp B/P Pulse Ox O2 Delivery O2 Flow Rate FiO2 06/04/16 07:26 97.9 64 18 118/68 100 06/03/16 11:17 Room Air Intake and Output 06/03/16 06/03/16 06/04/16 15:00 23:00 07:00 Intake Total 940 ml 200 ml Balance 940 ml 200 ml Exam PHYSICAL ASSESSMENT: GENERAL: A well-developed, well-nourished female in no acute distress. HEENT: Head is atraumatic, normocephalic. Pupils equal, round, reactive to light and accommodation. Oral mucosa is pink, moist. NECK: Supple. No cervical lymphadenopathy, no thyromegaly. CHEST: Lungs clear bilaterally. There are no rhonchi, wheezes, rales noted. CARDIOVASCULAR: Normal S1, S2. The patient has systolic murmur III/. ABDOMEN: Round, soft, nondistended, nontender. Bowel sounds present. There is no guarding or rebound tenderness. EXTREMITIES: The patient has right 5th toe gangrene and left 5th and 4th toe gangrene, and patient has multiple discolorations over bilateral thighs. SKIN: There is no rash, petechiae. NEUROLOGIC: The patient is awake, alert and oriented x4. Results Result Diagram: 06/04/16 0455 06/04/16 0455 Results 24 hrs Laboratory Tests Test 06/04/16 01:09 06/04/16 04:55 06/04/16 14:20 Troponin I 0.018 < 0.012 < 0.012 Activated Partial Thromboplast Time 28.5 Alanine Aminotransferase (ALT/SGPT) 30 Albumin 3.3 Albumin/Globulin Ratio 1.32 Alkaline Phosphatase 170 H Anion Gap 15 Aspartate Amino Transf (AST/SGOT) 24 Basophils # 0.0 Basophils % 0.1 Blood Morphology Comment Blood Urea Nitrogen 22 H Calcium Level 8.8 Carbon Dioxide Level 26 Chloride Level 106 Cholesterol Level 155 Cholesterol/HDL Ratio 4.5 Creatinine 0.84 Direct Bilirubin 0.00 Eosinophils # 0.1 Eosinophils % 2.6 Globulin 2.50 Glucose Level 98 HDL Cholesterol 34 L Hematocrit 33.4 L Hemoglobin 10.6 L INR International Normalized Ratio 1.14 Indirect Bilirubin 0.0 LDL Cholesterol, Calculated 101 Lymphocytes # 0.8 Lymphocytes % 18.0 Mean Corpuscular Hemoglobin 29.0 Mean Corpuscular Hemoglobin Concent 31.9 L Mean Corpuscular Volume 91.0 Mean Platelet Volume 11.3 H Monocytes # 0.8 Monocytes % 17.7 H Neutrophils # 2.8 Neutrophils % 61.6 Nucleated Red Blood Cells # 0.0 Nucleated Red Blood Cells % 0.0 Platelet Count 157 Potassium Level 4.7 Prothrombin Time 14.6 H Prothrombin Time Ratio 1.1 Red Blood Count 3.67 L Red Cell Distribution Width 15.4 H Sodium Level 142 Total Bilirubin 0.0 L Total Protein 5.8 L Triglycerides Level 99 White Blood Count 4.5 L Medications Medications Current Medications Benazepril HCl (Lotensin) 10 mg DAILY PO Last administered on 06/04/16 08:45; Admin Dose 10 MG; Start 06/04/16 at 09:00 Cholecalciferol (Vitamin D) 1,000 unit DAILY PO Last administered on 06/04/16 08:44; Admin Dose 1,000 UNIT; Start 06/04/16 at 09:00 Clopidogrel Bisulfate (plaVIX) 75 mg DAILY PO Last administered on 06/04/16 08 :46; Admin Dose 75 MG; Start 06/04/16 at 09:00 Diltiazem HCl (Cardizem Cd) 180 mg DAILY PO Last administered on 06/04/16 08: 48; Admin Dose 180 MG; Start 06/04/16 at 09:00 Folic Acid (Folic Acid) 1 mg DAILY PO Last administered on 06/04/16 08:46; Admin Dose 1 MG; Start 06/04/16 at 09:00 Metoprolol Tartrate (Lopressor) 50 mg BID PO Last administered on 06/03/16 20: 54; Admin Dose 50 MG; Start 06/03/16 at 21:00 Mycophenolate Mofetil (Cellcept) 1,000 mg BID PO Last administered on 08:46; Admin Dose 1,000 MG; Start 06/03/16 at 21:00 Prednisone (Prednisone) 5 mg DAILY PO Last administered on 06/04/16 08:46; Admin Dose 5 MG; Start 06/04/16 at 09:00 Acetaminophen (Tylenol Tab) 650 mg Q4H PRN PO PAIN AND OR ELEVATED TEMP; Start 06/03/16 at 14:00 Acetaminophen/ Hydrocodone Bitart ([place] (5/325)) 1 tab Q4H PRN PO PAIN Last administered on 06/03/16 14:35; Admin Dose 1 TAB; Start 06/03/16 at 14:30 Morphine Sulfate (morphine) 2 mg Q4H PRN IV PAIN 7-10; Start 06/03/16 at 14:00 Acetylcysteine (Nac) 1,200 mg BID PO Last administered on 06/04/16 08:45; Admin Dose 1,200 MG; Start 06/03/16 at 21:00 Tacrolimus 0.5 mg 0.5 mg Q12 PO Last administered on 06/04/16 08:44; Admin Dose 0.5 MG; Start 06/03/16 at 21:00 Linezolid (Zyvox 600mg/D5W (Pmx)) 300 ml @ 300 mls/hr Q12 IVPB Last administered on 06/04/16 08:47; Admin Dose 300 MLS/HR; Start 06/03/16 at 21:00 Senna (Senokot) 1 tab BID PO Last administered on 06/04/16 08:46; Admin Dose 1 TAB; Start 06/03/16 at 21:00 LES GILLILAND Jun 04, 2016 16:28
--- NOTE | 2016-06-04 17:15 | RADRPT ---
PROCEDURE: Renal US. CLINICAL INDICATION: Renal dysfunction. Renal transplant in the right iliac fossa. TECHNIQUE: Multiple sonographic images of the kidneys and urinary bladder were obtained. The imag es were reviewed on a PACS workstation. COMPARISON: No prior studies are available for comparison. FINDINGS: The [place] right kidney measures 10.8 cm. The [place] left kidney measures 11.2 cm. Both [place] kidneys are abnormal with increased echogenicity and multiple small cysts consistent wit h chronic renal failure. The transplant kidney appears normal within the right iliac fossa measuring 11.5 x 4.7 x 5.2 cm. Th e transplant kidney and has no mass, hydronephrosis, or calculus. There is no surrounding fluid col lection. The urinary bladder is unremarkable with no mass or calculus. IMPRESSION: 1. Abnormal bilateral [place] kidneys consistent with chronic renal failure. 2. Normal appearance of transplant kidney within the right iliac fossa. RPTAT: QQ .Hernan Baker MD, MD Date Time Electronically viewed and signed by .Hernan Baker MD, on 06/04/2016 17:14 .R/
[2016-06-04 20:00] VITALS: BP 117/57; RESP 20
[2016-06-04] MEDS: HYDROCODONE/APAP (5/325) TAB PO PRN (20:44)
[2016-06-05 06:27] LABS: POTASSIUM 4.6 mmol/L (3.5-5.1)
[2016-06-05 06:29] LABS: CREATININE 0.91 mg/dl (0.44-1.00)
[2016-06-05 06:30] LABS: CALCIUM 8.8 mg/dl (8.4-10.2)
[2016-06-05 06:43] LABS: BASOPHILS % 0.1 % (0.0-2.0); EOSINOPHILS # 0.1 10^3/ul (0.0-0.5); EOSINOPHILS % 1.9 % (0.0-7.0); HEMATOCRIT 30.1 % (37.0-47.0); HEMOGLOBIN 9.7 g/dl (12.0-16.0); LYMPHOCYTES # 0.8 10^3/ul (0.8-2.9); LYMPHOCYTES % 18.2 % (15.0-51.0); MEAN CORPUSCULAR HEMOGLOBIN 29.2 pg (29.0-33.0); MEAN CORPUSCULAR HGB CONC 32.3 g/dl (32.0-37.0); MEAN CORPUSCULAR VOLUME 90.2 fl (82.0-101.0); MEAN PLATELET VOLUME 10.9 fl (7.4-10.4); MONOCYTE # 0.6 10^3/ul (0.3-0.9); MONOCYTES % 14.2 % (0.0-11.0); NEUTROPHIL # 2.7 10^3/ul (1.6-7.5); NEUTROPHILS % 65.6 % (39.0-77.0); PLATELET COUNT 137 10^3/UL (140-440); RED BLOOD COUNT 3.34 10^6/ul (4.20-5.40); RED CELL DISTRIBUTION WIDTH 15.4 % (11.5-14.5); UNCORRECTED WBC 4.1 10^3/ul (4.8-10.8); WHITE BLOOD COUNT 4.1 10^3/ul (4.8-10.8)
[2016-06-05 07:05] LABS: CONDITION 1; LH ANALYZER COMMENTS 1; SUSPECT 1
[2016-06-05 07:47] VITALS: BP 134/91; RESP 14
[2016-06-05] MEDS: CLOPIDOGREL 75 MG TAB PO SCH (08:57)
[2016-06-05] MEDS: CHOLECALCIFEROL 1,000 UNIT TAB PO SCH (08:57)
[2016-06-05] MEDS: LINEZOLID 600 MG/D5W (PMX) 300 ML IVPB SCH ×2 (08:57→20:53)
[2016-06-05] MEDS: METOPROLOL 50 MG TAB PO SCH ×2 (08:57→20:55)
[2016-06-05] MEDS: ACETYLCYSTEINE 600 MG CAP PO SCH ×2 (08:57→20:54)
[2016-06-05] MEDS: SENNA TAB PO SCH ×2 (08:58→20:54)
[2016-06-05] MEDS: MYCOPHENOLATE 250 MG CAP PO SCH ×2 (08:58→20:53)
[2016-06-05] MEDS: FOLIC ACID 1 MG TAB PO SCH (08:58)
[2016-06-05] MEDS: DILTIAZEM (CD) 180 MG CAP PO SCH (08:58)
[2016-06-05] MEDS: TACROLIMUS 0.5 MG CAP PO SCH ×2 (08:59→20:55)
[2016-06-05] MEDS: BENAZEPRIL 20 MG TAB PO SCH (08:59)
[2016-06-05] MEDS: predniSONE 5 MG TAB PO SCH (08:59)
--- NOTE | 2016-06-05 09:34 | CONS ---
Date/Time of Note Date/Time of Note DATE: 06/05/16 TIME: 09:31 Assessment/Plan Assessment/Plan Additional Assessment/Plan 1. Left lower extremity gangrene getting admitted for possible lower extremity angiogram. 2. Acute hyperkalemia, potassium 5.2. 3. Status post donor kidney transplant in 2009 at [facility], currently on immunosuppression with Prograf, CellCept, prednisone. 4. History of previous end-stage renal disease on hemodialysis secondary to diabetic nephropathy. 5. History of hypertension. 6. History of diabetes mellitus. 7. History of previous left upper extremity arteriovenous fistula. PLAN: continue Current immunosuppression with cellcept, prograf and prednisone Right lower quadrant Renal allograft US - normal pt is cleared to have angigoram from renal point of view,-will start IVF hydration with NS 1mg/kg/hr Pre and Post angiogram- Nurse is instructed to call me with extact date and time of LE angiogram procedure. currently she is on Mucocyst BID will follow up Consultation Date/Type/Reason Admit Date/Time Jun 03, 2016 at 11:09 Initial Consult Date May Type of Consultation: NEPHROLOGY Reason for Consultation Kidney transplant with need of LE angiogram, to assess for risk of contrast induced nephropathy Referring Provider: WILD DUARTE MD 24 HR Interval Summary Free Text/Dictation pt remained stable, Plan for LE angiogram, US showd normal appearance of RLQ transplant kidney Exam/Review of Systems Vital Signs Vitals Vital Signs Date Time Temp Pulse Resp B/P Pulse Ox O2 Delivery O2 Flow Rate FiO2 06/05/16 07:47 97.4 62 14 134/91 97 06/03/16 11:17 Room Air Intake and Output 06/04/16 06/04/16 06/05/16 15:00 23:00 07:00 Intake Total 1560 ml 240 ml Balance 1560 ml 240 ml Exam GENERAL: Awake, alert, in no distress. HEENT: Normal. Oropharynx clear. NECK: Supple, no JVD, no lymphadenopathy. LUNGS: Clear to auscultation. No crackles, no wheezes. HEART: S1, S2, with regular rhythm, no murmur. ABDOMEN: Soft, nontender, nondistended. Bowel sounds are present. EXTREMITIES: No clubbing, cyanosis, or edema. NEUROLOGICAL: Nonfocal, intact. Right lower quadrant kidney, renal allograft is present. No bruits or tenderness. Normal to palpation. Results Result Diagram: 06/05/16 0545 06/05/16 0545 Results 24 hrs Laboratory Tests Test 06/04/16 14:20 06/05/16 05:45 Troponin I < 0.012 Anion Gap 15 Basophils # 0.0 Basophils % 0.1 Blood Morphology Comment Blood Urea Nitrogen 25 H Calcium Level 8.8 Carbon Dioxide Level 23 Chloride Level 108 Creatinine 0.91 Eosinophils # 0.1 Eosinophils % 1.9 Glucose Level 85 Hematocrit 30.1 L Hemoglobin 9.7 L Lymphocytes # 0.8 Lymphocytes % 18.2 Mean Corpuscular Hemoglobin 29.2 Mean Corpuscular Hemoglobin Concent 32.3 Mean Corpuscular Volume 90.2 Mean Platelet Volume 10.9 H Monocytes # 0.6 Monocytes % 14.2 H Neutrophils # 2.7 Neutrophils % 65.6 Nucleated Red Blood Cells # 0.0 Nucleated Red Blood Cells % 0.0 Platelet Count 137 L Potassium Level 4.6 Red Blood Count 3.34 L Red Cell Distribution Width 15.4 H Sodium Level 141 White Blood Count 4.1 L Medications Medications Current Medications Benazepril HCl (Lotensin) 10 mg DAILY PO Last administered on 06/05/16 08:59; Admin Dose 10 MG; Start 06/04/16 at 09:00 Cholecalciferol (Vitamin D) 1,000 unit DAILY PO Last administered on 06/05/16 08:57; Admin Dose 1,000 UNIT; Start 06/04/16 at 09:00 Clopidogrel Bisulfate (plaVIX) 75 mg DAILY PO Last administered on 06/05/16 08 :57; Admin Dose 75 MG; Start 06/04/16 at 09:00 Diltiazem HCl (Cardizem Cd) 180 mg DAILY PO Last administered on 06/05/16 08: 58; Admin Dose 180 MG; Start 06/04/16 at 09:00 Folic Acid (Folic Acid) 1 mg DAILY PO Last administered on 06/05/16 08:58; Admin Dose 1 MG; Start 06/04/16 at 09:00 Metoprolol Tartrate (Lopressor) 50 mg BID PO Last administered on 06/05/16 08: 57; Admin Dose 50 MG; Start 06/03/16 at 21:00 Mycophenolate Mofetil (Cellcept) 1,000 mg BID PO Last administered on 08:58; Admin Dose 1,000 MG; Start 06/03/16 at 21:00 Prednisone (Prednisone) 5 mg DAILY PO Last administered on 06/05/16 08:59; Admin Dose 5 MG; Start 06/04/16 at 09:00 Acetaminophen (Tylenol Tab) 650 mg Q4H PRN PO PAIN AND OR ELEVATED TEMP; Start 06/03/16 at 14:00 Acetaminophen/ Hydrocodone Bitart ([place] (5/325)) 1 tab Q4H PRN PO PAIN Last administered on 06/04/16 20:44; Admin Dose 1 TAB; Start 06/03/16 at 14:30 Morphine Sulfate (morphine) 2 mg Q4H PRN IV PAIN 7-10; Start 06/03/16 at 14:00 Acetylcysteine (Nac) 1,200 mg BID PO Last administered on 06/05/16 08:57; Admin Dose 1,200 MG; Start 06/03/16 at 21:00 Tacrolimus 0.5 mg 0.5 mg Q12 PO Last administered on 06/05/16 08:59; Admin Dose 0.5 MG; Start 06/03/16 at 21:00 Linezolid (Zyvox 600mg/D5W (Pmx)) 300 ml @ 300 mls/hr Q12 IVPB Last administered on 06/05/16 08:57; Admin Dose 300 MLS/HR; Start 06/03/16 at 21:00 Senna (Senokot) 1 tab BID PO Last administered on 06/05/16 08:58; Admin Dose 1 TAB; Start 06/03/16 at 21:00 RAMON KEMP MD Jun 05, 2016 09:34
--- NOTE | 2016-06-05 12:52 | CONS ---
Date/Time of Note Date/Time of Note DATE: 06/05/16 TIME: 12:50 Assessment/Plan Assessment/Plan Chief Complaint/Hosp Course SUBJECTIVE: The patient is alert. Looks comfortable. She is in no distress. No fevers. ANTIMICROBIALS: Zyvox. MICROBIOLOGY: Cultures are pending. PHYSICAL EXAMINATION: GENERAL: This is a well-nourished, well-developed, fragile, elderly woman who is alert, in no distress. HEENT: Head atraumatic, normocephalic. Sclerae anicteric. Buccal mucosa pink. NECK: Supple, trachea midline. CHEST: Rise symmetrical. Breath sounds clear. HEART: S1, S2. ABDOMEN: Soft, bowel sounds present. EXTREMITIES: Left foot gangrenous change and open wound. Right foot also with some gangrenous changes. ASSESSMENT: 1. Bilateral lower extremity gangrene R>L. 2. End-stage renal disease with a history of kidney transplant in 2009, on Prograf, CellCept, and prednisone. 3. History of left upper extremity AV fistula currently not working. 4. Severe peripheral vascular disease. PLAN: The patient remains stable. We will keep her on current antimicrobials for now. Vascular rec-s DW staff Problems: Consultation Date/Type/Reason Admit Date/Time Jun 03, 2016 at 11:09 Initial Consult Date Type of Consultation: id Referring Provider: WILD DUARTE MD Exam/Review of Systems Vital Signs Vitals Vital Signs Date Time Temp Pulse Resp B/P Pulse Ox O2 Delivery O2 Flow Rate FiO2 06/05/16 07:47 97.4 62 14 134/91 97 06/03/16 11:17 Room Air Intake and Output 06/04/16 06/04/16 06/05/16 15:00 23:00 07:00 Intake Total 1560 ml 240 ml Balance 1560 ml 240 ml Results Result Diagram: 06/05/16 0545 06/05/16 0545 Results 24 hrs Laboratory Tests Test 06/04/16 14:20 06/05/16 05:45 Troponin I < 0.012 Anion Gap 15 Basophils # 0.0 Basophils % 0.1 Blood Morphology Comment Blood Urea Nitrogen 25 H Calcium Level 8.8 Carbon Dioxide Level 23 Chloride Level 108 Creatinine 0.91 Eosinophils # 0.1 Eosinophils % 1.9 Glucose Level 85 Hematocrit 30.1 L Hemoglobin 9.7 L Lymphocytes # 0.8 Lymphocytes % 18.2 Mean Corpuscular Hemoglobin 29.2 Mean Corpuscular Hemoglobin Concent 32.3 Mean Corpuscular Volume 90.2 Mean Platelet Volume 10.9 H Monocytes # 0.6 Monocytes % 14.2 H Neutrophils # 2.7 Neutrophils % 65.6 Nucleated Red Blood Cells # 0.0 Nucleated Red Blood Cells % 0.0 Platelet Count 137 L Potassium Level 4.6 Red Blood Count 3.34 L Red Cell Distribution Width 15.4 H Sodium Level 141 White Blood Count 4.1 L Medications Medications Current Medications Benazepril HCl (Lotensin) 10 mg DAILY PO Last administered on 06/05/16 08:59; Admin Dose 10 MG; Start 06/04/16 at 09:00 Cholecalciferol (Vitamin D) 1,000 unit DAILY PO Last administered on 06/05/16 08:57; Admin Dose 1,000 UNIT; Start 06/04/16 at 09:00 Clopidogrel Bisulfate (plaVIX) 75 mg DAILY PO Last administered on 06/05/16 08 :57; Admin Dose 75 MG; Start 06/04/16 at 09:00 Diltiazem HCl (Cardizem Cd) 180 mg DAILY PO Last administered on 06/05/16 08: 58; Admin Dose 180 MG; Start 06/04/16 at 09:00 Folic Acid (Folic Acid) 1 mg DAILY PO Last administered on 06/05/16 08:58; Admin Dose 1 MG; Start 06/04/16 at 09:00 Metoprolol Tartrate (Lopressor) 50 mg BID PO Last administered on 06/05/16 08: 57; Admin Dose 50 MG; Start 06/03/16 at 21:00 Mycophenolate Mofetil (Cellcept) 1,000 mg BID PO Last administered on 08:58; Admin Dose 1,000 MG; Start 06/03/16 at 21:00 Prednisone (Prednisone) 5 mg DAILY PO Last administered on 06/05/16 08:59; Admin Dose 5 MG; Start 06/04/16 at 09:00 Acetaminophen (Tylenol Tab) 650 mg Q4H PRN PO PAIN AND OR ELEVATED TEMP; Start 06/03/16 at 14:00 Acetaminophen/ Hydrocodone Bitart ([place] (5/325)) 1 tab Q4H PRN PO PAIN Last administered on 06/04/16 20:44; Admin Dose 1 TAB; Start 06/03/16 at 14:30 Morphine Sulfate (morphine) 2 mg Q4H PRN IV PAIN 7-10; Start 06/03/16 at 14:00 Acetylcysteine (Nac) 1,200 mg BID PO Last administered on 06/05/16 08:57; Admin Dose 1,200 MG; Start 06/03/16 at 21:00 Tacrolimus 0.5 mg 0.5 mg Q12 PO Last administered on 06/05/16 08:59; Admin Dose 0.5 MG; Start 06/03/16 at 21:00 Linezolid (Zyvox 600mg/D5W (Pmx)) 300 ml @ 300 mls/hr Q12 IVPB Last administered on 06/05/16 08:57; Admin Dose 300 MLS/HR; Start 06/03/16 at 21:00 Senna (Senokot) 1 tab BID PO Last administered on 06/05/16 08:58; Admin Dose 1 TAB; Start 06/03/16 at 21:00 JACQUES HUERTA NP Jun 05, 2016 12:52
--- NOTE | 2016-06-05 14:39 | CONS ---
Date/Time of Note Date/Time of Note DATE: 06/05/16 TIME: 14:35 Assessment/Plan Assessment/Plan Chief Complaint/Hosp Course IMPRESSION: 1. Preoperative evaluation prior to intervention on lower extremities for gangrenous changes of the toe. 2. Abnormal electrocardiogram, assess for acute coronary syndrome.-negative troponin x 3 3. Hypertension, mildly elevated. 4. Status post renal transplant. 5. Peripheral arterial disease with lower extremity gangrenous changes and nonhealing wound. 6. Anemia, mild. Recc: -Continue plavix -Continue Dilt/metoprolol -Will f/u echo -Local wound care Problems: Consultation Date/Type/Reason Admit Date/Time Jun 03, 2016 at 11:09 Initial Consult Date 06/03/16 Type of Consultation: Cardiology Reason for Consultation Pre-op Referring Provider: WILD DUARTE MD Exam/Review of Systems Vital Signs Vitals Vital Signs Date Time Temp Pulse Resp B/P Pulse Ox O2 Delivery O2 Flow Rate FiO2 06/05/16 07:47 97.4 62 14 134/91 97 06/03/16 11:17 Room Air Intake and Output 06/04/16 06/04/16 06/05/16 15:00 23:00 07:00 Intake Total 1560 ml 240 ml Balance 1560 ml 240 ml Exam Review of Systems: CONSTITUTIONAL: No fevers, chills. PULMONARY: No sob CARDIOVASCULAR: No chest pain/palpitations GASTROINTESTINAL: No nausea/vomiting. GENITOURINARY: No hematuria/dysuria. MUSCULOSKELETAL: No myagias/arthalgias. PSYCHIATRIC: The patient denies depression. NEUROLOGIC: No weakness Constitutional: alert, oriented Psych: no complaints Head: normocephalic ENMT: mucosa pink and moist Neck: jvd (9 cm water), supple Respiratory: diminished breath sounds (at bases/B) Cardiovascular: regular rate and rhythm Gastrointestinal: non-tender, soft Musculoskeletal: muscle tone (normal) Extremities: edema (none) Neurological: other (No focal deficits) Results Result Diagram: 06/05/16 0545 06/05/16 0545 Results 24 hrs Laboratory Tests Test 06/05/16 05:45 Anion Gap 15 Basophils # 0.0 Basophils % 0.1 Blood Morphology Comment Blood Urea Nitrogen 25 H Calcium Level 8.8 Carbon Dioxide Level 23 Chloride Level 108 Creatinine 0.91 Eosinophils # 0.1 Eosinophils % 1.9 Glucose Level 85 Hematocrit 30.1 L Hemoglobin 9.7 L Lymphocytes # 0.8 Lymphocytes % 18.2 Mean Corpuscular Hemoglobin 29.2 Mean Corpuscular Hemoglobin Concent 32.3 Mean Corpuscular Volume 90.2 Mean Platelet Volume 10.9 H Monocytes # 0.6 Monocytes % 14.2 H Neutrophils # 2.7 Neutrophils % 65.6 Nucleated Red Blood Cells # 0.0 Nucleated Red Blood Cells % 0.0 Platelet Count 137 L Potassium Level 4.6 Red Blood Count 3.34 L Red Cell Distribution Width 15.4 H Sodium Level 141 White Blood Count 4.1 L Medications Medications Current Medications Benazepril HCl (Lotensin) 10 mg DAILY PO Last administered on 06/05/16 08:59; Admin Dose 10 MG; Start 06/04/16 at 09:00 Cholecalciferol (Vitamin D) 1,000 unit DAILY PO Last administered on 06/05/16 08:57; Admin Dose 1,000 UNIT; Start 06/04/16 at 09:00 Clopidogrel Bisulfate (plaVIX) 75 mg DAILY PO Last administered on 06/05/16 08 :57; Admin Dose 75 MG; Start 06/04/16 at 09:00 Diltiazem HCl (Cardizem Cd) 180 mg DAILY PO Last administered on 06/05/16 08: 58; Admin Dose 180 MG; Start 06/04/16 at 09:00 Folic Acid (Folic Acid) 1 mg DAILY PO Last administered on 06/05/16 08:58; Admin Dose 1 MG; Start 06/04/16 at 09:00 Metoprolol Tartrate (Lopressor) 50 mg BID PO Last administered on 06/05/16 08: 57; Admin Dose 50 MG; Start 06/03/16 at 21:00 Mycophenolate Mofetil (Cellcept) 1,000 mg BID PO Last administered on 08:58; Admin Dose 1,000 MG; Start 06/03/16 at 21:00 Prednisone (Prednisone) 5 mg DAILY PO Last administered on 06/05/16 08:59; Admin Dose 5 MG; Start 06/04/16 at 09:00 Acetaminophen (Tylenol Tab) 650 mg Q4H PRN PO PAIN AND OR ELEVATED TEMP; Start 06/03/16 at 14:00 Acetaminophen/ Hydrocodone Bitart ([place] (5/325)) 1 tab Q4H PRN PO PAIN Last administered on 06/04/16 20:44; Admin Dose 1 TAB; Start 06/03/16 at 14:30 Morphine Sulfate (morphine) 2 mg Q4H PRN IV PAIN 7-10; Start 06/03/16 at 14:00 Acetylcysteine (Nac) 1,200 mg BID PO Last administered on 06/05/16 08:57; Admin Dose 1,200 MG; Start 06/03/16 at 21:00 Tacrolimus 0.5 mg 0.5 mg Q12 PO Last administered on 06/05/16 08:59; Admin Dose 0.5 MG; Start 06/03/16 at 21:00 Linezolid (Zyvox 600mg/D5W (Pmx)) 300 ml @ 300 mls/hr Q12 IVPB Last administered on 06/05/16 08:57; Admin Dose 300 MLS/HR; Start 06/03/16 at 21:00 Senna (Senokot) 1 tab BID PO Last administered on 06/05/16 08:58; Admin Dose 1 TAB; Start 06/03/16 at 21:00 TIMOTHY CORTES Jun 05, 2016 14:39
--- NOTE | 2016-06-05 16:09 | RADRPT ---
Echocardiogram Report Patient Name: ESTIVEN RIVERA Gender: Female Date: 1955 Study Date: 04-Jun-2016 Slab Lifting Engineer: Micky Gale [facility] Location: 622 Ref. Physician: LES GILLILAND Quality: Technically Difficult Study Procedures: Transthoracic echocardiogram with complete 2D, M-Mode, and doppler examination. Indications: Evaluate Left Ventricular function. 2D/M Mode Doppler Measurement Value Normal Ranges Measurement Value Normal Ranges LVIDd 2D 4.2 3.5 - 5.6 cm JOSE Vmax 1.0 cm2 LVIDs 2D 2.8 2.1 - 4.1 cm JOSE VTI 1.0 cm2 LVPWd 2D 0.9 0.6 - 1.1 cm AV Mean Claus 1.8 m/sec IVSd 2D 0.8 0.6 - 1.1 cm AV Mean PG 14.7 mmHg AoR Diam 2D 2.6 2.0 - 3.7 cm AV Peak Claus 2.7 m/sec EDV 2D 78.7 cm3 AV Peak PG 28.2 mmHg ESV 2D 22.1 cm3 AV VTI 50.6 cm LA Dimen 2D 4.1 2.3 - 4.0 cm LVOT Mean Claus 0.6 m/sec LVOT Diam 1.9 cm LVOT Mean PG 1.6 mmHg LVOT Peak Claus 0.9 m/sec LVOT Peak PG 3.3 mmHg LVOT VTI 21.2 cm MV E Peak Claus 0.6 m/sec MV A Peak Claus 0.8 m/sec MV E/A 0.7 MV Decel Time 197 msec MV Decel [place] 3 MV E/A 0.7 TR Peak Claus 2.8 m/sec TR Peak PG 31.1 mmHg RVSP 34.0 mmHg Findings Left Ventricle: Normal left ventricular systolic function. Normal left ventricular cavity size. Normal left ventricular wall thickness. Ejection fraction is visually estimated at 6065 %. Tissue Doppler/Mitral Doppler indices are consistent with impaired relaxation (Stage I diastolic dysfunction). Right Ventricle: Mild enlargement of right ventricle. Left Atrium: There is mild enlargement of left atrium. Right Atrium: There is moderate enlargement of right atrium. Mitral Valve: Mitral valve leaflets appear mildly thickened. Mild mitral annular calcification. Trace mitral regurgitation. Aortic Valve: Mild to moderate aortic stenosis. Aortic valve Max velocity 2.66 m/sec. Max PG 28.20 mmHg. Mean PG 14.70 mmHg. Aortic valve area 1.20 cm2. Aortic cusps appear moderately calcified. Tricuspid Valve: Estimated peak PA systolic pressure 34 mmHg. There is moderate to severe tricuspid regurgitation. Pulmonic Valve: Pulmonic valve not well visualized. Pericardium: Normal pericardium with no significant pericardial effusion. Aorta: Normal aortic root. IVC: Normal size and normal respiratory collapse consistent with normal right atrial pressure. Conclusions 1.Normal left ventricular systolic function. Normal left ventricular cavity size. Normal left ventricular wall thickness. Ejection fraction is visually estimated at 60-65 %. Tissue Doppler/Mitral Doppler indices are consistent with impaired relaxation (Stage I diastolic dysfunction). 2.Mild enlargement of right ventricle. 3.There is mild enlargement of left atrium. 4.There is moderate enlargement of right atrium. 5.Trace mitral regurgitation. 6.Mild to moderate aortic stenosis. 7.Estimated peak PA systolic pressure 34 mmHg. 8.There is moderate to severe tricuspid regurgitation. Electronically Signed By: Enrique Powell 05-Jun-2016 16:07:55 -0800 Patient Name: ESTIVEN RIVERA Study Date: 04-Jun-2016 [id number]
--- NOTE | 2016-06-05 16:32 | PN ---
Date/Time of Note Date/Time of Note DATE: 06/05/16 TIME: 16:27 Assessment/Plan VTE Prophylaxis VTE Prophylaxis Intervention: SCD's Lines/Catheters IV Catheter Type (from [facility]): [place] Urinary Cath still in place: No Assessment/Plan Chief Complaint/Hosp Course ASSESSMENT AND PLAN: 1. Bilateral lower extremity atherosclerosis with gangrene. The patient is followed by Dr. Valencia in vascular surgery consultation, planned for an angiogram on Friday. Dr. Powell is following from cardiology standpoint. Dr. Bowen is following from infectious disease standpoint. 2. End-stage renal disease, status post renal transplant. Continue patient on prednisone and CellCept. Dr. Briscoe is following in nephrology consultation. 3. Hypertension. Continue benazepril, Lopressor and diltiazem. 4. 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 Continue Plavix. 5. Anemia of chronic kidney disease. Continue to monitor hemoglobin and hematocrit. 6. Severe peripheral arterial disease. Continue Plavix. Further recommendations based on clinical course. Plan of care discussed with Dr. Cohen. Problems: Subjective 24 Hr Interval Summary Free Text/Dictation No acute events overnight, stable vital signs. Exam/Review of Systems Vital Signs Vitals Vital Signs Date Time Temp Pulse Resp B/P Pulse Ox O2 Delivery O2 Flow Rate FiO2 06/05/16 07:47 97.4 62 14 134/91 97 06/03/16 11:17 Room Air Intake and Output 06/04/16 06/04/16 06/05/16 15:00 23:00 07:00 Intake Total 1560 ml 240 ml Balance 1560 ml 240 ml Exam PHYSICAL ASSESSMENT: GENERAL: A well-developed, well-nourished female in no acute distress. HEENT: Head is atraumatic, normocephalic. Pupils equal, round, reactive to light and accommodation. Oral mucosa is pink, moist. NECK: Supple. No cervical lymphadenopathy, no thyromegaly. CHEST: Lungs clear bilaterally. There are no rhonchi, wheezes, rales noted. CARDIOVASCULAR: Normal S1, S2. The patient has systolic murmur III/. ABDOMEN: Round, soft, nondistended, nontender. Bowel sounds present. There is no guarding or rebound tenderness. EXTREMITIES: The patient has right 5th toe gangrene and left 5th and 4th toe gangrene, and patient has multiple discolorations over bilateral thighs. SKIN: There is no rash, petechiae. NEUROLOGIC: The patient is awake, alert and oriented x4. Results Result Diagram: 06/05/16 0545 06/05/16 0545 Results 24 hrs Laboratory Tests Test 06/05/16 05:45 Anion Gap 15 Basophils # 0.0 Basophils % 0.1 Blood Morphology Comment Blood Urea Nitrogen 25 H Calcium Level 8.8 Carbon Dioxide Level 23 Chloride Level 108 Creatinine 0.91 Eosinophils # 0.1 Eosinophils % 1.9 Glucose Level 85 Hematocrit 30.1 L Hemoglobin 9.7 L Lymphocytes # 0.8 Lymphocytes % 18.2 Mean Corpuscular Hemoglobin 29.2 Mean Corpuscular Hemoglobin Concent 32.3 Mean Corpuscular Volume 90.2 Mean Platelet Volume 10.9 H Monocytes # 0.6 Monocytes % 14.2 H Neutrophils # 2.7 Neutrophils % 65.6 Nucleated Red Blood Cells # 0.0 Nucleated Red Blood Cells % 0.0 Platelet Count 137 L Potassium Level 4.6 Red Blood Count 3.34 L Red Cell Distribution Width 15.4 H Sodium Level 141 White Blood Count 4.1 L Medications Medications Current Medications Benazepril HCl (Lotensin) 10 mg DAILY PO Last administered on 06/05/16 08:59; Admin Dose 10 MG; Start 06/04/16 at 09:00 Cholecalciferol (Vitamin D) 1,000 unit DAILY PO Last administered on 06/05/16 08:57; Admin Dose 1,000 UNIT; Start 06/04/16 at 09:00 Clopidogrel Bisulfate (plaVIX) 75 mg DAILY PO Last administered on 06/05/16 08 :57; Admin Dose 75 MG; Start 06/04/16 at 09:00 Diltiazem HCl (Cardizem Cd) 180 mg DAILY PO Last administered on 06/05/16 08: 58; Admin Dose 180 MG; Start 06/04/16 at 09:00 Folic Acid (Folic Acid) 1 mg DAILY PO Last administered on 06/05/16 08:58; Admin Dose 1 MG; Start 06/04/16 at 09:00 Metoprolol Tartrate (Lopressor) 50 mg BID PO Last administered on 06/05/16 08: 57; Admin Dose 50 MG; Start 06/03/16 at 21:00 Mycophenolate Mofetil (Cellcept) 1,000 mg BID PO Last administered on 08:58; Admin Dose 1,000 MG; Start 06/03/16 at 21:00 Prednisone (Prednisone) 5 mg DAILY PO Last administered on 06/05/16 08:59; Admin Dose 5 MG; Start 06/04/16 at 09:00 Acetaminophen (Tylenol Tab) 650 mg Q4H PRN PO PAIN AND OR ELEVATED TEMP; Start 06/03/16 at 14:00 Acetaminophen/ Hydrocodone Bitart ([place] (5/325)) 1 tab Q4H PRN PO PAIN Last administered on 06/04/16 20:44; Admin Dose 1 TAB; Start 06/03/16 at 14:30 Morphine Sulfate (morphine) 2 mg Q4H PRN IV PAIN 7-10; Start 06/03/16 at 14:00 Acetylcysteine (Nac) 1,200 mg BID PO Last administered on 06/05/16 08:57; Admin Dose 1,200 MG; Start 06/03/16 at 21:00 Tacrolimus 0.5 mg 0.5 mg Q12 PO Last administered on 06/05/16 08:59; Admin Dose 0.5 MG; Start 06/03/16 at 21:00 Linezolid (Zyvox 600mg/D5W (Pmx)) 300 ml @ 300 mls/hr Q12 IVPB Last administered on 06/05/16 08:57; Admin Dose 300 MLS/HR; Start 06/03/16 at 21:00 Senna (Senokot) 1 tab BID PO Last administered on 06/05/16 08:58; Admin Dose 1 TAB; Start 06/03/16 at 21:00 LES GILLILAND Jun 05, 2016 16:32
[2016-06-05 19:47] VITALS: BP 119/68; RESP 14
--- NOTE | 2016-06-05 20:45 | PN ---
Date/Time of Note Date/Time of Note DATE: 06/05/16 TIME: 20:45 Assessment/Plan Lines/Catheters IV Catheter Type (from [facility]): Saline Lock Moreira in Place (from [facility]): No Assessment/Plan Chief Complaint/Hosp Course -Bilateral lower extremity atherosclerosis with gangrene: It seems that the patient has come to be agreeable with performing an angiogram for the bilateral lower extremities and interventions. However, she has expressed that she would not like to have the angiogram if it causes her pain, she "would rather than to have any interventions done". With this in mind, we have discussed multiple options for interventions with her, and she has agreed to either undergo conscious sedation versus general anesthesia. We have explained to her that if she does want to have general anesthesia will have cardiac evaluation and would require further time in order for us to schedule her. -Patient has been scheduled for Friday as that is the first availability with laborer operator and anesthesia for her sedation -Her gangrene has worsened and requires antibiotics as there's erythema of bilateral feet. -We have discussed with podiatry regarding her gangrene, and they would like for us to pursue first with an angiogram to evaluate lower extremity perfusion prior to any intervention from their standpoint of debridement and possible amputation. -Will need nephrology evaluation and hydration prior to intervention - appreciate nephrology feedback -Discussed vascular optimization (BP meds, diet, nutrition, exercise, sugar control, antiplatelets). -Thank you for allowing us to partake in the care of your patient. Please call with any questions. Problems: Subjective 24 Hr Interval Summary no new vascular events overnight Exam/Review of Systems Vital Signs Vitals Vital Signs Date Time Temp Pulse Resp B/P Pulse Ox O2 Delivery O2 Flow Rate FiO2 06/06/16 07:38 97.4 54 18 134/72 100 06/03/16 11:17 Room Air Intake and Output 06/05/16 06/05/16 06/06/16 15:00 23:00 07:00 Intake Total 300 ml 1260 ml 800 ml Output Total 800 ml 800 ml Balance 300 ml 460 ml 0 ml Exam Free Text/Dictation GENERAL: Alert and oriented x3. LUNGS: Clear to auscultation bilaterally. HEART: S1, S2 present. ABDOMEN: Soft, nontender, nondistended. Bowel sounds positive. EXTREMITIES: Right lower extremity palpable femoral pulse, nonpalpable pedal pulse. Motor, sensory intact. Cap refill 3 to 4 seconds. fifth toe with gangrene on the lateral aspect of the toe with demarcation with erythema and some dependent rubor on the dorsal aspect of the foot. Healed ulcers on her thigh and calf. Left lower extremity palpable femoral pulse, nonpalpable pedal pulse. Motor and sensory intact. Cap refill 3 to 4 seconds. She has circumferential gangrene of her 5th toe which is dry and she has her right 4th toe which has partial gangrene with demarcation with erythema, the gangrene on her 5th toe has expanded slightly further intermetatarsal region which is concerning Results Result Diagram: 06/05/16 0545 06/05/16 0545 WILD DUARTE MD Jun 05, 2016 20:45
[2016-06-05] MEDS: HYDROCODONE/APAP (5/325) TAB PO PRN (20:54)
[2016-06-06 07:38] VITALS: BP 134/72; RESP 18
--- NOTE | 2016-06-06 08:54 | CONS ---
Date/Time of Note Date/Time of Note DATE: 06/06/16 TIME: 08:51 Assessment/Plan Assessment/Plan Additional Assessment/Plan 1. Left lower extremity gangrene getting admitted for possible lower extremity angiogram. 2. Acute hyperkalemia, potassium 5.2. 3. Status post donor kidney transplant in 2009 at [facility], currently on immunosuppression with Prograf, CellCept, prednisone. 4. History of previous end-stage renal disease on hemodialysis secondary to diabetic nephropathy. 5. History of hypertension. 6. History of diabetes mellitus. 7. History of previous left upper extremity arteriovenous fistula. PLAN: continue Current immunosuppression with cellcept, prograf and prednisone Right lower quadrant Renal allograft US - normal pt is cleared to have angigoram from renal point of view,-will start IVF hydration with NS 1mg/kg/hr Pre and Post angiogram- Nurse is instructed to call me with extact date and time of LE angiogram procedure. currently she is on Mucocyst BID will follow up Consultation Date/Type/Reason Admit Date/Time Jun 03, 2016 at 11:09 Initial Consult Date May Type of Consultation: NEPHROLOGY Reason for Consultation Kidney transplant on immunosuppression, Plan for LE angiogram Referring Provider: WILD DUARTE MD 24 HR Interval Summary Free Text/Dictation pt stable , awaiting LE angiogram, BP controlled, Cr normal, Renal US showed normal, No hydronephrosis Exam/Review of Systems Vital Signs Vitals Vital Signs Date Time Temp Pulse Resp B/P Pulse Ox O2 Delivery O2 Flow Rate FiO2 06/06/16 07:38 97.4 54 18 134/72 100 06/03/16 11:17 Room Air Intake and Output 06/05/16 06/05/16 06/06/16 15:00 23:00 07:00 Intake Total 300 ml 1260 ml 800 ml Output Total 800 ml 800 ml Balance 300 ml 460 ml 0 ml Exam GENERAL: Awake, alert, in no distress. HEENT: Normal. Oropharynx clear. NECK: Supple, no JVD, no lymphadenopathy. LUNGS: Clear to auscultation. No crackles, no wheezes. HEART: S1, S2, with regular rhythm, no murmur. ABDOMEN: Soft, nontender, nondistended. Bowel sounds are present. EXTREMITIES: No clubbing, cyanosis, or edema. LLE gangrene Results Result Diagram: 06/05/16 0545 06/05/16 0545 Medications Medications Current Medications Benazepril HCl (Lotensin) 10 mg DAILY PO Last administered on 06/05/16 08:59; Admin Dose 10 MG; Start 06/04/16 at 09:00 Cholecalciferol (Vitamin D) 1,000 unit DAILY PO Last administered on 06/05/16 08:57; Admin Dose 1,000 UNIT; Start 06/04/16 at 09:00 Clopidogrel Bisulfate (plaVIX) 75 mg DAILY PO Last administered on 06/05/16 08 :57; Admin Dose 75 MG; Start 06/04/16 at 09:00 Diltiazem HCl (Cardizem Cd) 180 mg DAILY PO Last administered on 06/05/16 08: 58; Admin Dose 180 MG; Start 06/04/16 at 09:00 Folic Acid (Folic Acid) 1 mg DAILY PO Last administered on 06/05/16 08:58; Admin Dose 1 MG; Start 06/04/16 at 09:00 Metoprolol Tartrate (Lopressor) 50 mg BID PO Last administered on 06/05/16 20: 55; Admin Dose 50 MG; Start 06/03/16 at 21:00 Mycophenolate Mofetil (Cellcept) 1,000 mg BID PO Last administered on 20:53; Admin Dose 1,000 MG; Start 06/03/16 at 21:00 Prednisone (Prednisone) 5 mg DAILY PO Last administered on 06/05/16 08:59; Admin Dose 5 MG; Start 06/04/16 at 09:00 Acetaminophen (Tylenol Tab) 650 mg Q4H PRN PO PAIN AND OR ELEVATED TEMP; Start 06/03/16 at 14:00 Acetaminophen/ Hydrocodone Bitart ([place] (5/325)) 1 tab Q4H PRN PO PAIN Last administered on 06/05/16 20:54; Admin Dose 1 TAB; Start 06/03/16 at 14:30 Morphine Sulfate (morphine) 2 mg Q4H PRN IV PAIN 7-10; Start 06/03/16 at 14:00 Acetylcysteine (Nac) 1,200 mg BID PO Last administered on 06/05/16 20:54; Admin Dose 1,200 MG; Start 06/03/16 at 21:00 Tacrolimus 0.5 mg 0.5 mg Q12 PO Last administered on 06/05/16 20:55; Admin Dose 0.5 MG; Start 06/03/16 at 21:00 Linezolid (Zyvox 600mg/D5W (Pmx)) 300 ml @ 300 mls/hr Q12 IVPB Last administered on 06/05/16 20:53; Admin Dose 300 MLS/HR; Start 06/03/16 at 21:00 Senna (Senokot) 1 tab BID PO Last administered on 06/05/16 20:54; Admin Dose 1 TAB; Start 06/03/16 at 21:00 RAMON KEMP MD Jun 06, 2016 08:54
[2016-06-06] MEDS: LINEZOLID 600 MG/D5W (PMX) 300 ML IVPB SCH ×2 (08:56→20:25)
[2016-06-06] MEDS: CLOPIDOGREL 75 MG TAB PO SCH (08:59)
[2016-06-06] MEDS: FOLIC ACID 1 MG TAB PO SCH (08:59)
[2016-06-06] MEDS: HYDROCODONE/APAP (5/325) TAB PO PRN ×2 (08:59→20:25)
[2016-06-06] MEDS: METOPROLOL 50 MG TAB PO SCH ×2 (09:00→20:26)
[2016-06-06] MEDS: TACROLIMUS 0.5 MG CAP PO SCH ×2 (09:00→20:25)
[2016-06-06] MEDS: DILTIAZEM (CD) 180 MG CAP PO SCH (09:00)
[2016-06-06] MEDS: BENAZEPRIL 20 MG TAB PO SCH (09:01)
[2016-06-06] MEDS: predniSONE 5 MG TAB PO SCH (09:01)
[2016-06-06] MEDS: CHOLECALCIFEROL 1,000 UNIT TAB PO SCH (09:01)
[2016-06-06] MEDS: SENNA TAB PO SCH ×2 (09:01→20:25)
[2016-06-06] MEDS: ACETYLCYSTEINE 600 MG CAP PO SCH ×2 (09:01→20:25)
[2016-06-06] MEDS: MYCOPHENOLATE 250 MG CAP PO SCH ×2 (09:07→20:27)
--- NOTE | 2016-06-06 09:11 | PN ---
Date/Time of Note Date/Time of Note DATE: 06/06/16 TIME: 09:09 Assessment/Plan VTE Prophylaxis VTE Prophylaxis Intervention: other Lines/Catheters IV [facility] Type (from [facility]): Saline Lock Urinary Cath still in place: No Assessment/Plan Assessment/Plan 1. Bilateral lower extremity atherosclerosis with gangrene. The patient is followed by Dr. Valencia in vascular surgery consultation, planned for an angiogram on Friday. Dr. Powell is following from cardiology standpoint. Dr. Bowen is following from infectious disease standpoint. 2. End-stage renal disease, status post renal transplant. Continue patient on prednisone and CellCept. Dr. Briscoe is following in nephrology consultation. 3. Hypertension. Continue benazepril, Lopressor and diltiazem. 4. 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 Continue Plavix. 5. Anemia of chronic kidney disease. Continue to monitor hemoglobin and hematocrit. 6. Severe peripheral arterial disease. Continue Plavix. Further recommendations based on clinical course. Plan of care discussed with Dr. Cohen. Subjective 24 Hr Interval Summary Eyes: no complaints ENT: no complaints Respiratory: no complaints Cardiovascular: no complaints Gastrointestinal: no complaints Genitourinary: no complaints Musculoskeletal: bone/joint pain, no complaints Skin: no complaints Neurologic: no complaints Endocrine: no complaints Lymphatic: no complaints Psychological: no complaints Exam/Review of Systems Vital Signs Vitals Vital Signs Date Time Temp Pulse Resp B/P Pulse Ox O2 Delivery O2 Flow Rate FiO2 06/06/16 07:38 97.4 54 18 134/72 100 06/03/16 11:17 Room Air Intake and Output 06/05/16 06/05/16 06/06/16 15:00 23:00 07:00 Intake Total 300 ml 1260 ml 800 ml Output Total 800 ml 800 ml Balance 300 ml 460 ml 0 ml Exam Constitutional: alert Psych: nl mood/affect Eyes: EOMI, nl sclera ENMT: nl external ears & nose Neck: non-tender Respiratory: clear to auscultation Cardiovascular: nl pulses Gastrointestinal: soft Musculoskeletal: nl extremities to inspection Results Result Diagram: 06/05/16 0545 06/05/16 0545 Medications Medications Current Medications Benazepril HCl (Lotensin) 10 mg DAILY PO Last administered on 06/06/16t 09:01; Admin Dose 10 MG; Start 06/04/16 at 09:00 Cholecalciferol (Vitamin D) 1,000 unit DAILY PO Last administered on 06/06/16 09:01; Admin Dose 1,000 UNIT; Start 06/04/16 at 09:00 Clopidogrel Bisulfate (plaVIX) 75 mg DAILY PO Last administered on 06/06/16 08 :59; Admin Dose 75 MG; Start 06/04/16 at 09:00 Diltiazem HCl (Cardizem Cd) 180 mg DAILY PO Last administered on 06/06/16 09: 00; Admin Dose 180 MG; Start 06/04/16 at 09:00 Folic Acid (Folic Acid) 1 mg DAILY PO Last administered on 06/06/16 08:59; Admin Dose 1 MG; Start 06/04/16 at 09:00 Metoprolol Tartrate (Lopressor) 50 mg BID PO Last administered on 06/06/16 09: 00; Admin Dose 50 MG; Start 06/03/16 at 21:00 Mycophenolate Mofetil (Cellcept) 1,000 mg BID PO Last administered on 09:07; Admin Dose 1,000 MG; Start 06/03/16 at 21:00 Prednisone (Prednisone) 5 mg DAILY PO Last administered on 06/06/16 09:01; Admin Dose 5 MG; Start 06/04/16 at 09:00 Acetaminophen (Tylenol Tab) 650 mg Q4H PRN PO PAIN AND OR ELEVATED TEMP; Start 06/03/16 at 14:00 Acetaminophen/ Hydrocodone Bitart ([place] (5/325)) 1 tab Q4H PRN PO PAIN Last administered on 06/06/16 08:59; Admin Dose 1 TAB; Start 06/03/16 at 14:30 Morphine Sulfate (morphine) 2 mg Q4H PRN IV PAIN 7-10; Start 06/03/16 at 14:00 Acetylcysteine (Nac) 1,200 mg BID PO Last administered on 06/06/16 09:01; Admin Dose 1,200 MG; Start 06/03/16 at 21:00 Tacrolimus 0.5 mg 0.5 mg Q12 PO Last administered on 06/06/16 09:00; Admin Dose 0.5 MG; Start 06/03/16 at 21:00 Linezolid (Zyvox 600mg/D5W (Pmx)) 300 ml @ 300 mls/hr Q12 IVPB Last administered on 06/06/16 08:56; Admin Dose 300 MLS/HR; Start 06/03/16 at 21:00 Senna (Senokot) 1 tab BID PO Last administered on 06/06/16 09:01; Admin Dose 1 TAB; Start 06/03/16 at 21:00 TIM BENNETT Jun 06, 2016 09:11
--- NOTE | 2016-06-06 09:41 | PN ---
Date/Time of Note Date/Time of Note DATE: 06/06/16 TIME: 09:39 Assessment/Plan Lines/Catheters IV Catheter Type (from [facility]): Saline Lock Moreira in Place (from [facility]): No Assessment/Plan Chief Complaint/Hosp Course -Bilateral lower extremity atherosclerosis with gangrene: It seems that the patient has come to be agreeable with performing an angiogram for the bilateral lower extremities and interventions. However, she has expressed that she would not like to have the angiogram if it causes her pain, she "would rather than to have any interventions done". With this in mind, we have discussed multiple options for interventions with her, and she has agreed to either undergo conscious sedation versus general anesthesia. -Patient has been scheduled for Friday as that is the first availability with lab aide and anesthesia for her sedation -Her gangrene has worsened and requires antibiotics as there's erythema of bilateral feet. -We have discussed with podiatry regarding her gangrene, and they would like for us to pursue first with an angiogram to evaluate lower extremity perfusion prior to any intervention from their standpoint of debridement and possible amputation. -Will need nephrology evaluation and hydration prior to intervention - appreciate nephrology feedback -Discussed vascular optimization (BP meds, diet, nutrition, exercise, sugar control, antiplatelets). -Thank you for allowing us to partake in the care of your patient. Please call with any questions. Problems: Subjective 24 Hr Interval Summary no new vascular events overnight Exam/Review of Systems Vital Signs Vitals Vital Signs Date Time Temp Pulse Resp B/P Pulse Ox O2 Delivery O2 Flow Rate FiO2 06/06/16 07:38 97.4 54 18 134/72 100 06/03/16 11:17 Room Air Intake and Output 06/05/16 06/05/16 06/06/16 15:00 23:00 07:00 Intake Total 300 ml 1260 ml 800 ml Output Total 800 ml 800 ml Balance 300 ml 460 ml 0 ml Exam Free Text/Dictation GENERAL: Alert and oriented x3. LUNGS: Clear to auscultation bilaterally. HEART: S1, S2 present. ABDOMEN: Soft, nontender, nondistended. Bowel sounds positive. EXTREMITIES: Right lower extremity palpable femoral pulse, nonpalpable pedal pulse. Motor, sensory intact. Cap refill 3 to 4 seconds. fifth toe with gangrene on the lateral aspect of the toe with demarcation with erythema and some dependent rubor on the dorsal aspect of the foot. Healed ulcers on her thigh and calf. Left lower extremity palpable femoral pulse, nonpalpable pedal pulse. Motor and sensory intact. Cap refill 3 to 4 seconds. She has circumferential gangrene of her 5th toe which is dry and she has her right 4th toe which has partial gangrene with demarcation with erythema, the gangrene on her 5th toe has expanded slightly further intermetatarsal region which is concerning Results Result Diagram: 06/05/16 0545 06/05/16 0545 WILD DUARTE MD Jun 06, 2016 09:41
--- NOTE | 2016-06-06 12:15 | CONS ---
Date/Time of Note Date/Time of Note DATE: 06/06/16 TIME: 12:11 Assessment/Plan Assessment/Plan Chief Complaint/Hosp Course IMPRESSION: 1. Preoperative evaluation prior to intervention on lower extremities for gangrenous changes of the toe. 2. Abnormal electrocardiogram, assess for acute coronary syndrome.-negative troponin x 3/Echo 06/05 EF 60-65/mod-sev TR. No cardiac contraindication to proceeding to OR on current medications at moderate risk 3. Hypertension, mildly elevated. 4. Status post renal transplant. 5. Peripheral arterial disease with lower extremity gangrenous changes and nonhealing wound. 6. Anemia, mild. 7.TR-mod-sev by echo Recc: -Continue plavix -Continue Dilt/metoprolol -Local wound care Problems: Consultation Date/Type/Reason Admit Date/Time Jun 03, 2016 at 11:09 Initial Consult Date 06/03/16 Type of Consultation: Cardiology Reason for Consultation Pre-op Referring Provider: WILD DUARTE MD Exam/Review of Systems Vital Signs Vitals Vital Signs Date Time Temp Pulse Resp B/P Pulse Ox O2 Delivery O2 Flow Rate FiO2 06/06/16 07:38 97.4 54 18 134/72 100 06/03/16 11:17 Room Air Intake and Output 06/05/16 06/05/16 06/06/16 15:00 23:00 07:00 Intake Total 300 ml 1260 ml 800 ml Output Total 800 ml 800 ml Balance 300 ml 460 ml 0 ml Exam Review of Systems: CONSTITUTIONAL: No fevers, chills. PULMONARY: No sob CARDIOVASCULAR: No chest pain/palpitations GASTROINTESTINAL: No nausea/vomiting. GENITOURINARY: No hematuria/dysuria. MUSCULOSKELETAL: No myagias/arthalgias. PSYCHIATRIC: The patient denies depression. NEUROLOGIC: No weakness Constitutional: alert, oriented Psych: no complaints Head: normocephalic ENMT: mucosa pink and moist Neck: jvd, supple Respiratory: diminished breath sounds (at bases/B) Cardiovascular: regular rate and rhythm Gastrointestinal: non-tender, soft Musculoskeletal: muscle tone (normal) Extremities: edema (none) Neurological: other (No focal deficits) Results Result Diagram: 06/05/16 0545 06/05/16 0545 Medications Medications Current Medications Benazepril HCl (Lotensin) 10 mg DAILY PO Last administered on 06/06/16 09:01; Admin Dose 10 MG; Start 06/04/16 at 09:00 Cholecalciferol (Vitamin D) 1,000 unit DAILY PO Last administered on 06/06/16 09:01; Admin Dose 1,000 UNIT; Start 06/04/16 at 09:00 Clopidogrel Bisulfate (plaVIX) 75 mg DAILY PO Last administered on 06/06/16 08 :59; Admin Dose 75 MG; Start 06/04/16 at 09:00 Diltiazem HCl (Cardizem Cd) 180 mg DAILY PO Last administered on 06/06/16 09: 00; Admin Dose 180 MG; Start 06/04/16 at 09:00 Folic Acid (Folic Acid) 1 mg DAILY PO Last administered on 06/06/16 08:59; Admin Dose 1 MG; Start 06/04/16 at 09:00 Metoprolol Tartrate (Lopressor) 50 mg BID PO Last administered on 06/06/16 09: 00; Admin Dose 50 MG; Start 06/03/16 at 21:00 Mycophenolate Mofetil (Cellcept) 1,000 mg BID PO Last administered on 09:07; Admin Dose 1,000 MG; Start 06/03/16 at 21:00 Prednisone (Prednisone) 5 mg DAILY PO Last administered on 06/06/16 09:01; Admin Dose 5 MG; Start 06/04/16 at 09:00 Acetaminophen (Tylenol Tab) 650 mg Q4H PRN PO PAIN AND OR ELEVATED TEMP; Start 06/03/16 at 14:00 Acetaminophen/ Hydrocodone Bitart ([place] (5/325)) 1 tab Q4H PRN PO PAIN Last administered on 06/06/16 08:59; Admin Dose 1 TAB; Start 06/03/16 at 14:30 Morphine Sulfate (morphine) 2 mg Q4H PRN IV PAIN 7-10; Start 06/03/16 at 14:00 Acetylcysteine (Nac) 1,200 mg BID PO Last administered on 06/06/16 09:01; Admin Dose 1,200 MG; Start 06/03/16 at 21:00 Tacrolimus 0.5 mg 0.5 mg Q12 PO Last administered on 06/06/16 09:00; Admin Dose 0.5 MG; Start 06/03/16 at 21:00 Linezolid (Zyvox 600mg/D5W (Pmx)) 300 ml @ 300 mls/hr Q12 IVPB Last administered on 06/06/16 08:56; Admin Dose 300 MLS/HR; Start 06/03/16 at 21:00 Senna (Senokot) 1 tab BID PO Last administered on 06/06/16 09:01; Admin Dose 1 TAB; Start 06/03/16 at 21:00 TIMOTHY CORTES Jun 06, 2016 12:15
--- NOTE | 2016-06-06 13:21 | CONS ---
Date/Time of Note Date/Time of Note DATE: 06/06/16 TIME: 13:19 Assessment/Plan Assessment/Plan Chief Complaint/Hosp Course SUBJECTIVE: The patient is alert. Looks comfortable. She is in no distress. No fevers. ANTIMICROBIALS: Zyvox. MICROBIOLOGY: no cultures. PHYSICAL EXAMINATION: GENERAL: This is a well-nourished, well-developed, fragile, elderly woman who is alert, in no distress. HEENT: Head atraumatic, normocephalic. Sclerae anicteric. Buccal mucosa pink. NECK: Supple, trachea midline. CHEST: Rise symmetrical. Breath sounds clear. HEART: S1, S2. ABDOMEN: Soft, bowel sounds present. EXTREMITIES: Left foot gangrenous change and open wound. Right foot also with gangrenous changes of little toe. ASSESSMENT: 1. Bilateral lower extremity gangrene R>L. 2. End-stage renal disease with a history of kidney transplant in 2009, on Prograf, CellCept, and prednisone. 3. History of left upper extremity AV fistula currently not working. 4. Severe peripheral vascular disease. PLAN: The patient remains stable. We will keep her on current antimicrobials. Follow vascular rec-s [facility] staff Problems: Consultation Date/Type/Reason Admit Date/Time Jun 03, 2016 at 11:09 Type of Consultation: id Referring Provider: WILD DUARTE MD Exam/Review of Systems Vital Signs Vitals Vital Signs Date Time Temp Pulse Resp B/P Pulse Ox O2 Delivery O2 Flow Rate FiO2 06/06/16 07:38 97.4 54 18 134/72 100 06/03/16 11:17 Room Air Intake and Output 06/05/16 06/05/16 06/06/16 15:00 23:00 07:00 Intake Total 300 ml 1260 ml 800 ml Output Total 800 ml 800 ml Balance 300 ml 460 ml 0 ml Results Result Diagram: 06/05/16 0545 06/05/16 0545 Medications Medications Current Medications Benazepril HCl (Lotensin) 10 mg DAILY PO Last administered on 06/06/16 09:01; Admin Dose 10 MG; Start 06/04/16 at 09:00 Cholecalciferol (Vitamin D) 1,000 unit DAILY PO Last administered on 06/06/16 09:01; Admin Dose 1,000 UNIT; Start 06/04/16 at 09:00 Clopidogrel Bisulfate (plaVIX) 75 mg DAILY PO Last administered on 06/06/16 08 :59; Admin Dose 75 MG; Start 06/04/16 at 09:00 Diltiazem HCl (Cardizem Cd) 180 mg DAILY PO Last administered on 06/06/16 09: 00; Admin Dose 180 MG; Start 06/04/16 at 09:00 Folic Acid (Folic Acid) 1 mg DAILY PO Last administered on 06/06/16 08:59; Admin Dose 1 MG; Start 06/04/16 at 09:00 Metoprolol Tartrate (Lopressor) 50 mg BID PO Last administered on 06/06/16 09: 00; Admin Dose 50 MG; Start 06/03/16 at 21:00 Mycophenolate Mofetil (Cellcept) 1,000 mg BID PO Last administered on 09:07; Admin Dose 1,000 MG; Start 06/03/16 at 21:00 Prednisone (Prednisone) 5 mg DAILY PO Last administered on 06/06/16 09:01; Admin Dose 5 MG; Start 06/04/16 at 09:00 Acetaminophen (Tylenol Tab) 650 mg Q4H PRN PO PAIN AND OR ELEVATED TEMP; Start 06/03/16 at 14:00 Acetaminophen/ Hydrocodone Bitart ([place] (5/325)) 1 tab Q4H PRN PO PAIN Last administered on 06/06/16 08:59; Admin Dose 1 TAB; Start 06/03/16 at 14:30 Morphine Sulfate (morphine) 2 mg Q4H PRN IV PAIN 7-10; Start 06/03/16 at 14:00 Acetylcysteine (Nac) 1,200 mg BID PO Last administered on 06/06/16 09:01; Admin Dose 1,200 MG; Start 06/03/16 at 21:00 Tacrolimus 0.5 mg 0.5 mg Q12 PO Last administered on 06/06/16 09:00; Admin Dose 0.5 MG; Start 06/03/16 at 21:00 Linezolid (Zyvox 600mg/D5W (Pmx)) 300 ml @ 300 mls/hr Q12 IVPB Last administered on 06/06/16 08:56; Admin Dose 300 MLS/HR; Start 2/13/17 at 21:00 Senna (Senokot) 1 tab BID PO Last administered on 06/06/16t 09:01; Admin Dose 1 TAB; Start 06/03/16 at 21:00 JACQUES HUERTA NP Jun 06, 2016 13:21
[2016-06-06 15:29] LABS: ADD UMIC NO; URINE BILIRUBIN (Dip) NEGATIVE (NEGATIVE); URINE BLOOD (Dip) NEGATIVE (NEGATIVE); URINE COLOR LT. YELLOW (YELLOW); URINE GLUCOSE (Dip) NEGATIVE (NEGATIVE); URINE KETONES (Dip) NEGATIVE (NEGATIVE); URINE LEUKOCYTE ESTERASE (Dip) NEGATIVE (NEGATIVE); URINE NITRITE (Dip) NEGATIVE (NEGATIVE); URINE TOTAL PROTEIN (Dip) NEGATIVE (NEGATIVE); URINE UROBILINOGEN (Dip) 0.2 E.U./dL (0.1-1.0)
[2016-06-06 20:07] VITALS: BP 128/63; RESP 18
[2016-06-07 07:07] LABS: BASOPHILS % 0.2 % (0.0-2.0); EOSINOPHILS # 0.1 10^3/ul (0.0-0.5); EOSINOPHILS % 1.5 % (0.0-7.0); HEMATOCRIT 31.2 % (37.0-47.0); HEMOGLOBIN 10.1 g/dl (12.0-16.0); LYMPHOCYTES # 0.8 10^3/ul (0.8-2.9); LYMPHOCYTES % 15.4 % (15.0-51.0); MEAN CORPUSCULAR HEMOGLOBIN 29.4 pg (29.0-33.0); MEAN CORPUSCULAR HGB CONC 32.3 g/dl (32.0-37.0); MEAN CORPUSCULAR VOLUME 91.1 fl (82.0-101.0); MEAN PLATELET VOLUME 11.3 fl (7.4-10.4); MONOCYTE # 0.7 10^3/ul (0.3-0.9); NEUTROPHIL # 3.8 10^3/ul (1.6-7.5); NEUTROPHILS % 70.9 % (39.0-77.0); PLATELET COUNT 168 10^3/UL (140-440); RED BLOOD COUNT 3.42 10^6/ul (4.20-5.40); RED CELL DISTRIBUTION WIDTH 14.9 % (11.5-14.5); UNCORRECTED WBC 5.4 10^3/ul (4.8-10.8); WHITE BLOOD COUNT 5.4 10^3/ul (4.8-10.8)
[2016-06-07 07:09] LABS: POTASSIUM 4.7 mmol/L (3.5-5.1)
[2016-06-07 07:12] LABS: CREATININE 0.97 mg/dl (0.44-1.00)
[2016-06-07 07:13] LABS: CALCIUM 8.9 mg/dl (8.4-10.2)
[2016-06-07 07:15] LABS: NUCLEATED RED BLOOD CELLS # 0.1 10^3/ul (0.0-0.0)
[2016-06-07 07:16] LABS: CONDITION 1; LH ANALYZER COMMENTS 1
[2016-06-07 07:32] VITALS: BP 107/66; RESP 18
--- NOTE | 2016-06-07 08:34 | CONS ---
Date/Time of Note Date/Time of Note DATE: 06/07/16 TIME: 08:33 Assessment/Plan Assessment/Plan Additional Assessment/Plan 1. Left lower extremity gangrene getting admitted for possible lower extremity angiogram. 2. Acute hyperkalemia, potassium 5.2. 3. Status post donor kidney transplant in 2009 at [facility], currently on immunosuppression with Prograf, CellCept, prednisone. 4. History of previous end-stage renal disease on hemodialysis secondary to diabetic nephropathy. 5. History of hypertension. 6. History of diabetes mellitus. 7. History of previous left upper extremity arteriovenous fistula. PLAN: continue Current immunosuppression with cellcept, prograf and prednisone Right lower quadrant Renal allograft US - normal pt is cleared to have angigoram from renal point of view,-will start IVF hydration with NS 1mg/kg/hr Pre and Post angiogram- Nurse is instructed to call me with extact date and time of LE angiogram procedure. currently she is on Mucocyst BID will follow up Consultation Date/Type/Reason Admit Date/Time Jun 03, 2016 at 11:09 Initial Consult Date May Type of Consultation: NEPHROLOGY Reason for Consultation Kidney Transplant patient, plan for LE angiogram Referring Provider: WILD DUARTE MD 24 HR Interval Summary Free Text/Dictation no events, BP stable, awaiting LE angiogram, pt is on immunosuppression for kidney transplant Exam/Review of Systems Vital Signs Vitals Vital Signs Date Time Temp Pulse Resp B/P Pulse Ox O2 Delivery O2 Flow Rate FiO2 06/07/16 07:32 97.8 64 18 107/66 99 06/03/16 11:17 Room Air Intake and Output 06/06/16 06/06/16 06/07/16 15:00 23:00 07:00 Intake Total 1800 ml 260 ml Output Total 800 ml Balance 1000 ml 260 ml Exam GENERAL: Awake, alert, in no distress. HEENT: Normal. Oropharynx clear. NECK: Supple, no JVD, no lymphadenopathy. LUNGS: Clear to auscultation. No crackles, no wheezes. HEART: S1, S2, with regular rhythm, no murmur. ABDOMEN: Soft, nontender, nondistended. Bowel sounds are present. EXTREMITIES: No clubbing, cyanosis, or edema. LLE gangrene Results Result Diagram: 06/07/16 0505 06/07/16 0505 Results 24 hrs Laboratory Tests Test 06/06/16 14:05 06/07/16 05:05 Urine Bilirubin NEGATIVE Urine Clarity SLIGHTLY CLOUDY Urine Color LT. YELLOW Urine Glucose NEGATIVE Urine Hemoglobin NEGATIVE Urine Ketones NEGATIVE Urine Leukocyte Esterase NEGATIVE Urine Nitrite NEGATIVE Urine Specific [place] 1.010 Urine Total Protein NEGATIVE Urine Urobilinogen 0.2 E.U./dL Urine pH 6.0 Anion Gap 17 H Basophils # 0.0 Basophils % 0.2 Blood Morphology Comment Blood Urea Nitrogen 25 H Calcium Level 8.9 Carbon Dioxide Level 22 Chloride Level 107 Creatinine 0.97 Eosinophils # 0.1 Eosinophils % 1.5 Glucose Level 77 Hematocrit 31.2 L Hemoglobin 10.1 L Lymphocytes # 0.8 Lymphocytes % 15.4 Mean Corpuscular Hemoglobin 29.4 Mean Corpuscular Hemoglobin Concent 32.3 Mean Corpuscular Volume 91.1 Mean Platelet Volume 11.3 H Monocytes # 0.7 Monocytes % 12.0 H Neutrophils # 3.8 Neutrophils % 70.9 Nucleated Red Blood Cells # 0.1 H Nucleated Red Blood Cells % 2.0 H Platelet Count 168 # Potassium Level 4.7 Red Blood Count 3.42 L Red Cell Distribution Width 14.9 H Sodium Level 141 White Blood Count 5.4 # Medications Medications Current Medications Benazepril HCl (Lotensin) 10 mg DAILY PO Last administered on 06/06/16 09:01; Admin Dose 10 MG; Start 06/04/16 at 09:00 Cholecalciferol (Vitamin D) 1,000 unit DAILY PO Last administered on 06/06/16 09:01; Admin Dose 1,000 UNIT; Start 06/04/16 at 09:00 Clopidogrel Bisulfate (plaVIX) 75 mg DAILY PO Last administered on 06/06/16 08 :59; Admin Dose 75 MG; Start 06/04/16 at 09:00 Diltiazem HCl (Cardizem Cd) 180 mg DAILY PO Last administered on 06/06/16 09: 00; Admin Dose 180 MG; Start 06/04/16 at 09:00 Folic Acid (Folic Acid) 1 mg DAILY PO Last administered on 06/06/16 08:59; Admin Dose 1 MG; Start 06/04/16 at 09:00 Metoprolol Tartrate (Lopressor) 50 mg BID PO Last administered on 06/06/16 20: 26; Admin Dose 50 MG; Start 06/03/16 at 21:00 Mycophenolate Mofetil (Cellcept) 1,000 mg BID PO Last administered on 20:27; Admin Dose 1,000 MG; Start 06/03/16 at 21:00 Prednisone (Prednisone) 5 mg DAILY PO Last administered on 06/06/16 09:01; Admin Dose 5 MG; Start 06/04/16 at 09:00 Acetaminophen (Tylenol Tab) 650 mg Q4H PRN PO PAIN AND OR ELEVATED TEMP; Start 06/03/16 at 14:00 Acetaminophen/ Hydrocodone Bitart ([place] (5/325)) 1 tab Q4H PRN PO PAIN Last administered on 06/06/16 20:25; Admin Dose 1 TAB; Start 06/03/16 at 14:30 Morphine Sulfate (morphine) 2 mg Q4H PRN IV PAIN 7-10; Start 06/03/16 at 14:00 Acetylcysteine (Nac) 1,200 mg BID PO Last administered on 06/06/16 20:25; Admin Dose 1,200 MG; Start 06/03/16 at 21:00 Tacrolimus 0.5 mg 0.5 mg Q12 PO Last administered on 06/06/16 20:25; Admin Dose 0.5 MG; Start 06/03/16 at 21:00 Linezolid (Zyvox 600mg/D5W (Pmx)) 300 ml @ 300 mls/hr Q12 IVPB Last administered on 06/06/16 20:25; Admin Dose 300 MLS/HR; Start 06/03/16 at 21:00 Senna (Senokot) 1 tab BID PO Last administered on 06/06/16 20:25; Admin Dose 1 TAB; Start 06/03/16 at 21:00 RAMON KEMP MD Jun 07, 2016 08:34
[2016-06-07] MEDS: DILTIAZEM (CD) 180 MG CAP PO SCH (09:05)
[2016-06-07] MEDS: CLOPIDOGREL 75 MG TAB PO SCH (09:05)
[2016-06-07] MEDS: SENNA TAB PO SCH ×2 (09:05→20:52)
[2016-06-07] MEDS: MYCOPHENOLATE 250 MG CAP PO SCH ×2 (09:05→20:53)
[2016-06-07] MEDS: predniSONE 5 MG TAB PO SCH (09:05)
[2016-06-07] MEDS: FOLIC ACID 1 MG TAB PO SCH (09:05)
[2016-06-07] MEDS: ACETYLCYSTEINE 600 MG CAP PO SCH ×2 (09:05→20:53)
[2016-06-07] MEDS: CHOLECALCIFEROL 1,000 UNIT TAB PO SCH (09:05)
[2016-06-07] MEDS: BENAZEPRIL 20 MG TAB PO SCH (09:06)
[2016-06-07] MEDS: METOPROLOL 50 MG TAB PO SCH ×2 (09:06→20:53)
[2016-06-07] MEDS: TACROLIMUS 0.5 MG CAP PO SCH ×2 (09:12→20:53)
[2016-06-07] MEDS: LINEZOLID 600 MG/D5W (PMX) 300 ML IVPB SCH ×2 (09:13→20:53)
--- NOTE | 2016-06-07 10:40 | CONS ---
Date/Time of Note Date/Time of Note DATE: 06/07/16 TIME: 10:39 Assessment/Plan Assessment/Plan Chief Complaint/Hosp Course IMPRESSION: 1. Preoperative evaluation prior to intervention on lower extremities for gangrenous changes of the toe. 2. Abnormal electrocardiogram, assess for acute coronary syndrome.-negative troponin x 3/Echo 06/05 EF 60-65/mod-sev TR. No cardiac contraindication to proceeding to OR on current medications at moderate risk 3. Hypertension, mildly elevated. 4. Status post renal transplant. 5. Peripheral arterial disease with lower extremity gangrenous changes and nonhealing wound. 6. Anemia, mild. 7.TR-mod-sev by echo Recc: -Continue plavix -Continue Dilt/metoprolol -Local wound care Problems: Consultation Date/Type/Reason Admit Date/Time Jun 03, 2016 at 11:09 Initial Consult Date 06/03/16 Type of Consultation: Cardiology Reason for Consultation Pre-op Referring Provider: WILD DUARTE MD Exam/Review of Systems Vital Signs Vitals Vital Signs Date Time Temp Pulse Resp B/P Pulse Ox O2 Delivery O2 Flow Rate FiO2 06/07/16 07:32 97.8 64 18 107/66 99 06/03/16 11:17 Room Air Intake and Output 06/06/16 06/06/16 06/07/16 15:00 23:00 07:00 Intake Total 1800 ml 260 ml Output Total 800 ml Balance 1000 ml 260 ml Exam Review of Systems: CONSTITUTIONAL: No fevers, chills. PULMONARY: No sob CARDIOVASCULAR: No chest pain/palpitations GASTROINTESTINAL: No nausea/vomiting. GENITOURINARY: No hematuria/dysuria. MUSCULOSKELETAL: Pain in foot PSYCHIATRIC: The patient denies depression. NEUROLOGIC: No weakness Constitutional: alert, oriented Psych: no complaints Head: normocephalic Neck: jvd (9 cm water), supple Respiratory: clear to auscultation Cardiovascular: regular rate and rhythm Gastrointestinal: non-tender, soft Musculoskeletal: muscle tone (normal) Extremities: edema (none) Neurological: other (No focal deficits) Results Result Diagram: 06/07/16 0505 06/07/16 0505 Results 24 hrs Laboratory Tests Test 06/06/16 14:05 06/07/16 05:05 Urine Bilirubin NEGATIVE Urine Clarity SLIGHTLY CLOUDY Urine Color LT. YELLOW Urine Glucose NEGATIVE Urine Hemoglobin NEGATIVE Urine Ketones NEGATIVE Urine Leukocyte Esterase NEGATIVE Urine Nitrite NEGATIVE Urine Specific [place] 1.010 Urine Total Protein NEGATIVE Urine Urobilinogen 0.2 E.U./dL Urine pH 6.0 Anion Gap 17 H Basophils # 0.0 Basophils % 0.2 Blood Morphology Comment Blood Urea Nitrogen 25 H Calcium Level 8.9 Carbon Dioxide Level 22 Chloride Level 107 Creatinine 0.97 Eosinophils # 0.1 Eosinophils % 1.5 Glucose Level 77 Hematocrit 31.2 L Hemoglobin 10.1 L Lymphocytes # 0.8 Lymphocytes % 15.4 Mean Corpuscular Hemoglobin 29.4 Mean Corpuscular Hemoglobin Concent 32.3 Mean Corpuscular Volume 91.1 Mean Platelet Volume 11.3 H Monocytes # 0.7 Monocytes % 12.0 H Neutrophils # 3.8 Neutrophils % 70.9 Nucleated Red Blood Cells # 0.1 H Nucleated Red Blood Cells % 2.0 H Platelet Count 168 # Potassium Level 4.7 Red Blood Count 3.42 L Red Cell Distribution Width 14.9 H Sodium Level 141 White Blood Count 5.4 # Medications Medications Current Medications Benazepril HCl (Lotensin) 10 mg DAILY PO Last administered on 06/07/16 09:06; Admin Dose 10 MG; Start 06/04/16 at 09:00 Cholecalciferol (Vitamin D) 1,000 unit DAILY PO Last administered on 06/07/16 09:05; Admin Dose 1,000 UNIT; Start 06/04/16 at 09:00 Clopidogrel Bisulfate (plaVIX) 75 mg DAILY PO Last administered on 06/07/16 09 :05; Admin Dose 75 MG; Start 06/04/16 at 09:00 Diltiazem HCl (Cardizem Cd) 180 mg DAILY PO Last administered on 06/07/16 09: 05; Admin Dose 180 MG; Start 06/04/16 at 09:00 Folic Acid (Folic Acid) 1 mg DAILY PO Last administered on 06/07/16 09:05; Admin Dose 1 MG; Start 06/04/16 at 09:00 Metoprolol Tartrate (Lopressor) 50 mg BID PO Last administered on 06/07/16 09: 06; Admin Dose 50 MG; Start 06/03/16 at 21:00 Mycophenolate Mofetil (Cellcept) 1,000 mg BID PO Last administered on 09:05; Admin Dose 1,000 MG; Start 06/03/16 at 21:00 Prednisone (Prednisone) 5 mg DAILY PO Last administered on 06/07/16 09:05; Admin Dose 5 MG; Start 06/04/16 at 09:00 Acetaminophen (Tylenol Tab) 650 mg Q4H PRN PO PAIN AND OR ELEVATED TEMP; Start 06/03/16 at 14:00 Acetaminophen/ Hydrocodone Bitart ([place] (5/325)) 1 tab Q4H PRN PO PAIN Last administered on 06/06/16 20:25; Admin Dose 1 TAB; Start 06/03/16 at 14:30 Morphine Sulfate (morphine) 2 mg Q4H PRN IV PAIN 7-10; Start 06/03/16 at 14:00 Acetylcysteine (Nac) 1,200 mg BID PO Last administered on 06/07/16 09:05; Admin Dose 1,200 MG; Start 06/03/16 at 21:00 Tacrolimus 0.5 mg 0.5 mg Q12 PO Last administered on 06/07/16 09:12; Admin Dose 0.5 MG; Start 06/03/16 at 21:00 Linezolid (Zyvox 600mg/D5W (Pmx)) 300 ml @ 300 mls/hr Q12 IVPB Last administered on 06/07/16 09:13; Admin Dose 300 MLS/HR; Start 06/03/16 at 21:00 Senna (Senokot) 1 tab BID PO Last administered on 06/07/16 09:05; Admin Dose 1 TAB; Start 06/03/16 at 21:00 TIMOTHY CORTES Jun 07, 2016 10:40
--- NOTE | 2016-06-07 12:56 | CONS ---
Date/Time of Note Date/Time of Note DATE: 06/07/16 TIME: 12:55 Assessment/Plan Assessment/Plan Chief Complaint/Hosp Course SUBJECTIVE: The patient is alert. Looks comfortable. She is in no distress. No fevers. ANTIMICROBIALS: Zyvox. MICROBIOLOGY: no cultures. PHYSICAL EXAMINATION: GENERAL: This is a well-nourished, well-developed, fragile, elderly woman who is alert, in no distress. HEENT: Head atraumatic, normocephalic. Sclerae anicteric. Buccal mucosa pink. NECK: Supple, trachea midline. CHEST: Rise symmetrical. Breath sounds clear. HEART: S1, S2. ABDOMEN: Soft, bowel sounds present. EXTREMITIES: Left foot gangrenous change and open wound. Right foot also with gangrenous changes of little toe. ASSESSMENT: 1. Bilateral lower extremity gangrene R>L. 2. End-stage renal disease with a history of kidney transplant in 2009, on Prograf, CellCept, and prednisone. 3. History of left upper extremity AV fistula currently not working. 4. Severe peripheral vascular disease. PLAN: The patient remains stable. We will keep her on current antimicrobials. Follow vascular rec-s. Pending cardiac clearance DW staff Problems: Consultation Date/Type/Reason Admit Date/Time Jun 03, 2016 at 11:09 Type of Consultation: id Referring Provider: WILD DUARTE MD Exam/Review of Systems Vital Signs Vitals Vital Signs Date Time Temp Pulse Resp B/P Pulse Ox O2 Delivery O2 Flow Rate FiO2 06/07/16 07:32 97.8 64 18 107/66 99 06/03/16 11:17 Room Air Intake and Output 06/06/16 06/06/16 06/07/16 14:59 22:59 06:59 Intake Total 1800 ml 260 ml Output Total 800 ml Balance 1000 ml 260 ml Results Result Diagram: 06/07/16 0505 06/07/16 0505 Results 24 hrs Laboratory Tests Test 06/06/16 14:05 06/07/16 05:05 Urine Bilirubin NEGATIVE Urine Clarity SLIGHTLY CLOUDY Urine Color LT. YELLOW Urine Glucose NEGATIVE Urine Hemoglobin NEGATIVE Urine Ketones NEGATIVE Urine Leukocyte Esterase NEGATIVE Urine Nitrite NEGATIVE Urine Specific [place] 1.010 Urine Total Protein NEGATIVE Urine Urobilinogen 0.2 E.U./dL Urine pH 6.0 Anion Gap 17 H Basophils # 0.0 Basophils % 0.2 Blood Morphology Comment Blood Urea Nitrogen 25 H Calcium Level 8.9 Carbon Dioxide Level 22 Chloride Level 107 Creatinine 0.97 Eosinophils # 0.1 Eosinophils % 1.5 Glucose Level 77 Hematocrit 31.2 L Hemoglobin 10.1 L Lymphocytes # 0.8 Lymphocytes % 15.4 Mean Corpuscular Hemoglobin 29.4 Mean Corpuscular Hemoglobin Concent 32.3 Mean Corpuscular Volume 91.1 Mean Platelet Volume 11.3 H Monocytes # 0.7 Monocytes % 12.0 H Neutrophils # 3.8 Neutrophils % 70.9 Nucleated Red Blood Cells # 0.1 H Nucleated Red Blood Cells % 2.0 H Platelet Count 168 # Potassium Level 4.7 Red Blood Count 3.42 L Red Cell Distribution Width 14.9 H Sodium Level 141 White Blood Count 5.4 # Medications Medications Current Medications Benazepril HCl (Lotensin) 10 mg DAILY PO Last administered on 06/07/16 09:06; Admin Dose 10 MG; Start 06/04/16 at 09:00 Cholecalciferol (Vitamin D) 1,000 unit DAILY PO Last administered on 06/07/16 09:05; Admin Dose 1,000 UNIT; Start 06/04/16 at 09:00 Clopidogrel Bisulfate (plaVIX) 75 mg DAILY PO Last administered on 06/07/16 09 :05; Admin Dose 75 MG; Start 06/04/16 at 09:00 Diltiazem HCl (Cardizem Cd) 180 mg DAILY PO Last administered on 06/07/16 09: 05; Admin Dose 180 MG; Start 06/04/16 at 09:00 Folic Acid (Folic Acid) 1 mg DAILY PO Last administered on 06/07/16 09:05; Admin Dose 1 MG; Start 06/04/16 at 09:00 Metoprolol Tartrate (Lopressor) 50 mg BID PO Last administered on 06/07/16 09: 06; Admin Dose 50 MG; Start 06/03/16 at 21:00 Mycophenolate Mofetil (Cellcept) 1,000 mg BID PO Last administered on 09:05; Admin Dose 1,000 MG; Start 06/03/16 at 21:00 Prednisone (Prednisone) 5 mg DAILY PO Last administered on 06/07/16 09:05; Admin Dose 5 MG; Start 06/04/16 at 09:00 Acetaminophen (Tylenol Tab) 650 mg Q4H PRN PO PAIN AND OR ELEVATED TEMP; Start 06/03/16 at 14:00 Acetaminophen/ Hydrocodone Bitart ([place] (5/325)) 1 tab Q4H PRN PO PAIN Last administered on 06/06/16 20:25; Admin Dose 1 TAB; Start 06/03/16 at 14:30 Morphine Sulfate (morphine) 2 mg Q4H PRN IV PAIN 7-10; Start 06/03/16 at 14:00 Acetylcysteine (Nac) 1,200 mg BID PO Last administered on 06/07/16 09:05; Admin Dose 1,200 MG; Start 06/03/16 at 21:00 Tacrolimus 0.5 mg 0.5 mg Q12 PO Last administered on 06/07/16 09:12; Admin Dose 0.5 MG; Start 06/03/16 at 21:00 Linezolid (Zyvox 600mg/D5W (Pmx)) 300 ml @ 300 mls/hr Q12 IVPB Last administered on 06/07/16 09:13; Admin Dose 300 MLS/HR; Start 06/03/16 at 21:00 Senna (Senokot) 1 tab BID PO Last administered on 06/07/16 09:05; Admin Dose 1 TAB; Start 06/03/16 at 21:00 JACQUES HUERTA NP Jun 07, 2016 12:56
--- NOTE | 2016-06-07 19:45 | PN ---
Date/Time of Note Date/Time of Note DATE: 06/07/16 TIME: 19:43 Assessment/Plan VTE Prophylaxis VTE Prophylaxis Intervention: SCD's Lines/Catheters IV [facility]from [facility] [place] Urinary Cath still in place: No Assessment/Plan Chief Complaint/Hosp Course ASSESSMENT AND PLAN: 1. Bilateral lower extremity atherosclerosis with gangrene. The patient is followed by Dr. Valencia in vascular surgery consultation, planned for an angiogram on Friday. Dr. Powell is following from cardiology standpoint. Dr. Bowen is following from infectious disease standpoint. 2. End-stage renal disease, status post renal transplant. Continue patient on prednisone and CellCept. Dr. Briscoe is following in nephrology consultation. 3. Hypertension. Continue benazepril, Lopressor and diltiazem. 4. 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 Continue Plavix. 5. Anemia of chronic kidney disease. Continue to monitor hemoglobin and hematocrit. 6. Severe peripheral arterial disease. Continue Plavix. Further recommendations based on clinical course. Plan of care discussed with Dr. Cohen. Problems: Subjective 24 Hr Interval Summary Free Text/Dictation Patient denies any nausea vomiting, pain is well controlled. Exam/Review of Systems Vital Signs Vitals Vital Signs Date Time Temp Pulse Resp B/P Pulse Ox O2 Delivery O2 Flow Rate FiO2 06/07/16 07:32 97.8 64 18 107/66 99 06/03/16 11:17 Room Air Intake and Output 06/06/16 06/06/16 06/07/16 15:00 23:00 07:00 Intake Total 1800 ml 260 ml Output Total 800 ml Balance 1000 ml 260 ml Exam PHYSICAL ASSESSMENT: GENERAL: A well-developed, well-nourished female in no acute distress. HEENT: Head is atraumatic, normocephalic. Pupils equal, round, reactive to light and accommodation. Oral mucosa is pink, moist. NECK: Supple. No cervical lymphadenopathy, no thyromegaly. CHEST: Lungs clear bilaterally. There are no rhonchi, wheezes, rales noted. CARDIOVASCULAR: Normal S1, S2. The patient has systolic murmur III/. ABDOMEN: Round, soft, nondistended, nontender. Bowel sounds present. There is no guarding or rebound tenderness. EXTREMITIES: The patient has right 5th toe gangrene and left 5th and 4th toe gangrene, and patient has multiple discolorations over bilateral thighs. SKIN: There is no rash, petechiae. NEUROLOGIC: The patient is awake, alert and oriented x4. Results Result Diagram: 06/07/16 0505 06/07/16 0505 Results 24 hrs Laboratory Tests Test 06/07/16 05:05 Anion Gap 17 H Basophils # 0.0 Basophils % 0.2 Blood Morphology Comment Blood Urea Nitrogen 25 H Calcium Level 8.9 Carbon Dioxide Level 22 Chloride Level 107 Creatinine 0.97 Eosinophils # 0.1 Eosinophils % 1.5 Glucose Level 77 Hematocrit 31.2 L Hemoglobin 10.1 L Lymphocytes # 0.8 Lymphocytes % 15.4 Mean Corpuscular Hemoglobin 29.4 Mean Corpuscular Hemoglobin Concent 32.3 Mean Corpuscular Volume 91.1 Mean Platelet Volume 11.3 H Monocytes # 0.7 Monocytes % 12.0 H Neutrophils # 3.8 Neutrophils % 70.9 Nucleated Red Blood Cells # 0.1 H Nucleated Red Blood Cells % 2.0 H Platelet Count 168 # Potassium Level 4.7 Red Blood Count 3.42 L Red Cell Distribution Width 14.9 H Sodium Level 141 White Blood Count 5.4 # Medications Medications Current Medications Benazepril HCl (Lotensin) 10 mg DAILY PO Last administered on 06/07/16 09:06; Admin Dose 10 MG; Start 06/04/16 at 09:00 Cholecalciferol (Vitamin D) 1,000 unit DAILY PO Last administered on 06/07/16 09:05; Admin Dose 1,000 UNIT; Start 06/04/16 at 09:00 Clopidogrel Bisulfate (plaVIX) 75 mg DAILY PO Last administered on 06/07/16 09 :05; Admin Dose 75 MG; Start 06/04/16 at 09:00 Diltiazem HCl (Cardizem Cd) 180 mg DAILY PO Last administered on 06/07/16 09: 05; Admin Dose 180 MG; Start 06/04/16 at 09:00 Folic Acid (Folic Acid) 1 mg DAILY PO Last administered on 06/07/16 09:05; Admin Dose 1 MG; Start 06/04/16 at 09:00 Metoprolol Tartrate (Lopressor) 50 mg BID PO Last administered on 06/07/16 09: 06; Admin Dose 50 MG; Start 06/03/16 at 21:00 Mycophenolate Mofetil (Cellcept) 1,000 mg BID PO Last administered on 09:05; Admin Dose 1,000 MG; Start 06/03/16 at 21:00 Prednisone (Prednisone) 5 mg DAILY PO Last administered on 06/07/16 09:05; Admin Dose 5 MG; Start 06/04/16 at 09:00 Acetaminophen (Tylenol Tab) 650 mg Q4H PRN PO PAIN AND OR ELEVATED TEMP; Start 06/03/16 at 14:00 Acetaminophen/ Hydrocodone Bitart ([place] (5/325)) 1 tab Q4H PRN PO PAIN Last administered on 06/06/16 20:25; Admin Dose 1 TAB; Start 06/03/16 at 14:30 Morphine Sulfate (morphine) 2 mg Q4H PRN IV PAIN 7-10; Start 06/03/16 at 14:00 Acetylcysteine (Nac) 1,200 mg BID PO Last administered on 06/07/16 09:05; Admin Dose 1,200 MG; Start 06/03/16 at 21:00 Tacrolimus 0.5 mg 0.5 mg Q12 PO Last administered on 06/07/16 09:12; Admin Dose 0.5 MG; Start 06/03/16 at 21:00 Linezolid (Zyvox 600mg/D5W (Pmx)) 300 ml @ 300 mls/hr Q12 IVPB Last administered on 06/07/16 09:13; Admin Dose 300 MLS/HR; Start 06/03/16 at 21:00 Senna (Senokot) 1 tab BID PO Last administered on 06/07/16 09:05; Admin Dose 1 TAB; Start 06/03/16 at 21:00 LES GILLILAND Jun 07, 2016 19:45
[2016-06-07 20:39] VITALS: BP 124/66; RESP 18
[2016-06-07] MEDS: HYDROCODONE/APAP (5/325) TAB PO PRN (20:54)
[2016-06-08 05:11] LABS: EOSINOPHILS # 0.1 10^3/ul (0.0-0.5); EOSINOPHILS % 1.8 % (0.0-7.0); HEMATOCRIT 32.6 % (37.0-47.0); HEMOGLOBIN 10.5 g/dl (12.0-16.0); LYMPHOCYTES # 0.8 10^3/ul (0.8-2.9); LYMPHOCYTES % 16.7 % (15.0-51.0); MEAN CORPUSCULAR HEMOGLOBIN 29.1 pg (29.0-33.0); MEAN CORPUSCULAR HGB CONC 32.1 g/dl (32.0-37.0); MEAN CORPUSCULAR VOLUME 90.7 fl (82.0-101.0); MEAN PLATELET VOLUME 10.8 fl (7.4-10.4); MONOCYTE # 0.7 10^3/ul (0.3-0.9); MONOCYTES % 14.2 % (0.0-11.0); NEUTROPHIL # 3.3 10^3/ul (1.6-7.5); NEUTROPHILS % 67.3 % (39.0-77.0); PLATELET COUNT 169 10^3/UL (140-440); RED BLOOD COUNT 3.59 10^6/ul (4.20-5.40); RED CELL DISTRIBUTION WIDTH 15.7 % (11.5-14.5); UNCORRECTED WBC 4.8 10^3/ul (4.8-10.8); WHITE BLOOD COUNT 4.8 10^3/ul (4.8-10.8)
[2016-06-08 05:23] LABS: POTASSIUM 4.6 mmol/L (3.5-5.1)
[2016-06-08 05:25] LABS: CREATININE 0.89 mg/dl (0.44-1.00)
[2016-06-08 05:26] LABS: CALCIUM 8.9 mg/dl (8.4-10.2)
[2016-06-08 05:36] LABS: CONDITION 1; LH ANALYZER COMMENTS 1
[2016-06-08 07:53] VITALS: BP 114/63; RESP 20
[2016-06-08] MEDS: LINEZOLID 600 MG/D5W (PMX) 300 ML IVPB SCH ×2 (08:31→21:45)
[2016-06-08] MEDS: TACROLIMUS 0.5 MG CAP PO SCH ×2 (08:34→21:36)
[2016-06-08] MEDS: DILTIAZEM (CD) 180 MG CAP PO SCH (08:34)
[2016-06-08] MEDS: CLOPIDOGREL 75 MG TAB PO SCH (08:34)
[2016-06-08] MEDS: ACETYLCYSTEINE 600 MG CAP PO SCH ×2 (08:34→21:38)
[2016-06-08] MEDS: SENNA TAB PO SCH ×2 (08:35→21:38)
[2016-06-08] MEDS: METOPROLOL 50 MG TAB PO SCH ×2 (08:35→21:37)
[2016-06-08] MEDS: FOLIC ACID 1 MG TAB PO SCH (08:35)
[2016-06-08] MEDS: MYCOPHENOLATE 250 MG CAP PO SCH ×2 (08:35→21:37)
[2016-06-08] MEDS: CHOLECALCIFEROL 1,000 UNIT TAB PO SCH (08:35)
[2016-06-08] MEDS: predniSONE 5 MG TAB PO SCH (08:35)
[2016-06-08] MEDS: BENAZEPRIL 20 MG TAB PO SCH (08:35)
--- NOTE | 2016-06-08 09:08 | PN ---
Date/Time of Note Date/Time of Note DATE: 06/08/16 TIME: 09:07 Assessment/Plan VTE Prophylaxis VTE Prophylaxis Intervention: other Lines/Catheters IV Catheter Type (from [facility]): Saline Lock Urinary Cath still in place: No Assessment/Plan Chief Complaint/Hosp Course 1. Bilateral lower extremity atherosclerosis with gangrene. The patient is followed by Dr. Valencia in vascular surgery consultation, planned for an angiogram on Friday. Dr. Powell is following from cardiology standpoint. Dr. Bowen is following from infectious disease standpoint. 2. End-stage renal disease, status post renal transplant. Continue patient on prednisone and CellCept. Dr. Briscoe is following in nephrology consultation. 3. Hypertension. Continue benazepril, Lopressor and diltiazem. 4. 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 Continue Plavix. 5. Anemia of chronic kidney disease. Continue to monitor hemoglobin and hematocrit. 6. Severe peripheral arterial disease. Continue Plavix. Problems: Subjective 24 Hr Interval Summary Free Text/Dictation Complains of pain in foot where there is gangrene Exam/Review of Systems Vital Signs Vitals Vital Signs Date Time Temp Pulse Resp B/P Pulse Ox O2 Delivery O2 Flow Rate FiO2 06/08/16 07:53 97.7 61 20 114/63 100 Intake and Output 06/07/16 06/07/16 06/08/16 15:00 23:00 07:00 Intake Total 600 ml 400 ml Balance 600 ml 400 ml Exam Constitutional: frail Head: atraumatic, normocephalic Neck: supple Respiratory: clear to auscultation Cardiovascular: regular rate and rhythm Gastrointestinal: non-tender, soft Results Result Diagram: 06/08/160 06/08/16 0440 Results 24 hrs Laboratory Tests Test 06/08/16 04:40 Anion Gap 16 Basophils # 0.0 Basophils % 0.0 Blood Morphology Comment Blood Urea Nitrogen 19 Calcium Level 8.9 Carbon Dioxide Level 21 Chloride Level 109 Creatinine 0.89 Eosinophils # 0.1 Eosinophils % 1.8 Glucose Level 83 Hematocrit 32.6 L Hemoglobin 10.5 L Lymphocytes # 0.8 Lymphocytes % 16.7 Mean Corpuscular Hemoglobin 29.1 Mean Corpuscular Hemoglobin Concent 32.1 Mean Corpuscular Volume 90.7 Mean Platelet Volume 10.8 H Monocytes # 0.7 Monocytes % 14.2 H Neutrophils # 3.3 Neutrophils % 67.3 Nucleated Red Blood Cells # 0.0 Nucleated Red Blood Cells % 0.0 Platelet Count 169 Potassium Level 4.6 Red Blood Count 3.59 L Red Cell Distribution Width 15.7 H Sodium Level 141 White Blood Count 4.8 Medications Medications Current Medications Benazepril HCl (Lotensin) 10 mg DAILY PO Last administered on 06/08/16 08:35; Admin Dose 10 MG; Start 06/04/16 at 09:00 Cholecalciferol (Vitamin D) 1,000 unit DAILY PO Last administered on 06/08/16 08:35; Admin Dose 1,000 UNIT; Start 06/04/16 at 09:00 Clopidogrel Bisulfate (plaVIX) 75 mg DAILY PO Last administered on 06/08/16 08 :34; Admin Dose 75 MG; Start 06/04/16 at 09:00 Diltiazem HCl (Cardizem Cd) 180 mg DAILY PO Last administered on 06/07/16 09: 05; Admin Dose 180 MG; Start 06/04/16 at 09:00 Folic Acid (Folic Acid) 1 mg DAILY PO Last administered on 06/08/16 08:35; Admin Dose 1 MG; Start 06/04/16 at 09:00 Metoprolol Tartrate (Lopressor) 50 mg BID PO Last administered on 06/07/16 20: 53; Admin Dose 50 MG; Start 06/03/16 at 21:00 Mycophenolate Mofetil (Cellcept) 1,000 mg BID PO Last administered on 08:35; Admin Dose 1,000 MG; Start 06/03/16 at 21:00 Prednisone (Prednisone) 5 mg DAILY PO Last administered on 06/08/16 08:35; Admin Dose 5 MG; Start 06/04/16 at 09:00 Acetaminophen (Tylenol Tab) 650 mg Q4H PRN PO PAIN AND OR ELEVATED TEMP; Start 06/03/16 at 14:00 Acetaminophen/ Hydrocodone Bitart ([place] (5/325)) 1 tab Q4H PRN PO PAIN Last administered on 06/07/16 20:54; Admin Dose 1 TAB; Start 06/03/16 at 14:30 Morphine Sulfate (morphine) 2 mg Q4H PRN IV PAIN 7-10; Start 06/03/16 at 14:00 Acetylcysteine (Nac) 1,200 mg BID PO Last administered on 06/08/16 08:34; Admin Dose 1,200 MG; Start 06/03/16 at 21:00 Tacrolimus 0.5 mg 0.5 mg Q12 PO Last administered on 06/08/16 08:34; Admin Dose 0.5 MG; Start 06/03/16 at 21:00 Linezolid (Zyvox 600mg/D5W (Pmx)) 300 ml @ 300 mls/hr Q12 IVPB Last administered on 06/08/16 08:31; Admin Dose 300 MLS/HR; Start 06/03/16 at 21:00 Senna (Senokot) 1 tab BID PO Last administered on 06/08/16 08:35; Admin Dose 1 TAB; Start 06/03/16 at 21:00 RUPERTO ANDUJAR Jun 08, 2016 09:08
--- NOTE | 2016-06-08 10:04 | PN ---
Date/Time of Note Date/Time of Note DATE: 06/08/16 TIME: 10:03 Assessment/Plan Lines/Catheters IV Catheter Type (from [facility]): Saline Lock [place] in Place (from [facility]): No Assessment/Plan Chief Complaint/Hosp Course -Bilateral lower extremity atherosclerosis with gangrene: It seems that the patient has come to be agreeable with performing an angiogram for the bilateral lower extremities and interventions. However, she has expressed that she would not like to have the angiogram if it causes her pain, she "would rather than to have any interventions done". With this in mind, we have discussed multiple options for interventions with her, and she has agreed to either undergo conscious sedation versus general anesthesia. 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 -We have discussed with podiatry regarding her gangrene, and they would like for us to pursue first with an angiogram to evaluate lower extremity perfusion prior to any intervention from their standpoint of debridement and possible amputation. -Appreciate nephrology evaluation and hydration prior to intervention -Discussed vascular optimization (BP meds, diet, nutrition, exercise, sugar control, antiplatelets). -Thank you for allowing us to partake in the care of your patient. Please call with any questions. Problems: Subjective 24 Hr Interval Summary No new vascular events overnight Exam/Review of Systems Vital Signs Vitals Vital Signs Date Time Temp Pulse Resp B/P Pulse Ox O2 Delivery O2 Flow Rate FiO2 06/08/16 07:53 97.7 61 20 114/63 100 Intake and Output 06/07/16 06/07/16 06/08/16 14:59 22:59 06:59 Intake Total 300 ml 700 ml Balance 300 ml 700 ml Exam Free Text/Dictation GENERAL: Alert and oriented x3. LUNGS: Clear to auscultation bilaterally. HEART: S1, S2 present. ABDOMEN: Soft, nontender, nondistended. Bowel sounds positive. EXTREMITIES: Right lower extremity palpable femoral pulse, nonpalpable pedal pulse. Motor, sensory intact. Cap refill 3 to 4 seconds. fifth toe with gangrene on the lateral aspect of the toe with demarcation with erythema and some dependent rubor on the dorsal aspect of the foot. Healed ulcers on her thigh and calf. Left lower extremity palpable femoral pulse, nonpalpable pedal pulse. Motor and sensory intact. Cap refill 3 to 4 seconds. She has circumferential gangrene of her 5th toe which is dry and she has her right 4th toe which has partial gangrene with demarcation with erythema, the gangrene on her 5th toe has expanded slightly further intermetatarsal region which is concerning Results Result Diagram: 06/08/16 0440 06/08/16 0440 WILD DUARTE MD Jun 08, 2016 10:04
--- NOTE | 2016-06-08 10:41 | CONS ---
Date/Time of Note Date/Time of Note DATE: 06/08/16 TIME: 10:37 Assessment/Plan Assessment/Plan Additional Assessment/Plan 1. Left lower extremity gangrene getting admitted for possible lower extremity angiogram. 2. Acute hyperkalemia, potassium 5.2. 3. Status post donor kidney transplant in 2009 at [facility], currently on immunosuppression with Prograf, CellCept, prednisone. 4. History of previous end-stage renal disease on hemodialysis secondary to diabetic nephropathy. 5. History of hypertension. 6. History of diabetes mellitus. 7. History of previous left upper extremity arteriovenous fistula. PLAN: continue Current immunosuppression with cellcept, prograf and prednisone Right lower quadrant Renal allograft US - normal pt is cleared to have angigoram from renal point of view,-will start IVF hydration with NS 1mg/kg/hr Pre and Post angiogram- Nurse is instructed to call me with extact date and time of LE angiogram procedure. currently she is on Mucocyst BID will follow up Consultation Date/Type/Reason Admit Date/Time Jun 03, 2016 at 11:09 Initial Consult Date May Type of Consultation: NEPHROLOGY Reason for Consultation Kidney transplant on immunosuppression, plan for LE angiogram Referring Provider: WILD DUARTE MD 24 HR Interval Summary Free Text/Dictation stable,afebrile, plan for LE angiogram on friday Exam/Review of Systems Vital Signs Vitals Vital Signs Date Time Temp Pulse Resp B/P Pulse Ox O2 Delivery O2 Flow Rate FiO2 06/08/16 07:53 97.7 61 20 114/63 100 Intake and Output 06/07/16 06/07/16 06/08/16 15:00 23:00 07:00 Intake Total 600 ml 400 ml Balance 600 ml 400 ml Exam GENERAL: Awake, alert, in no distress. HEENT: Normal. Oropharynx clear. NECK: Supple, no JVD, no lymphadenopathy. LUNGS: Clear to auscultation. No crackles, no wheezes. HEART: S1, S2, with regular rhythm, no murmur. ABDOMEN: Soft, nontender, nondistended. Bowel sounds are present. EXTREMITIES: No clubbing, cyanosis, or edema. LLE gangrene Results Result Diagram: 06/08/16 0440 06/08/16 0440 Results 24 hrs Laboratory Tests Test 06/08/16 04:40 Anion Gap 16 Basophils # 0.0 Basophils % 0.0 Blood Morphology Comment Blood Urea Nitrogen 19 Calcium Level 8.9 Carbon Dioxide Level 21 Chloride Level 109 Creatinine 0.89 Eosinophils # 0.1 Eosinophils % 1.8 Glucose Level 83 Hematocrit 32.6 L Hemoglobin 10.5 L Lymphocytes # 0.8 Lymphocytes % 16.7 Mean Corpuscular Hemoglobin 29.1 Mean Corpuscular Hemoglobin Concent 32.1 Mean Corpuscular Volume 90.7 Mean Platelet Volume 10.8 H Monocytes # 0.7 Monocytes % 14.2 H Neutrophils # 3.3 Neutrophils % 67.3 Nucleated Red Blood Cells # 0.0 Nucleated Red Blood Cells % 0.0 Platelet Count 169 Potassium Level 4.6 Red Blood Count 3.59 L Red Cell Distribution Width 15.7 H Sodium Level 141 White Blood Count 4.8 Medications Medications Current Medications Benazepril HCl (Lotensin) 10 mg DAILY PO Last administered on 06/08/16 08:35; Admin Dose 10 MG; Start 06/04/16 at 09:00 Cholecalciferol (Vitamin D) 1,000 unit DAILY PO Last administered on 06/08/16 08:35; Admin Dose 1,000 UNIT; Start 06/04/16 at 09:00 Clopidogrel Bisulfate (plaVIX) 75 mg DAILY PO Last administered on 06/08/16 08 :34; Admin Dose 75 MG; Start 06/04/16 at 09:00 Diltiazem HCl (Cardizem Cd) 180 mg DAILY PO Last administered on 06/07/16 09: 05; Admin Dose 180 MG; Start 06/04/16 at 09:00 Folic Acid (Folic Acid) 1 mg DAILY PO Last administered on 06/08/16 08:35; Admin Dose 1 MG; Start 06/04/16 at 09:00 Metoprolol Tartrate (Lopressor) 50 mg BID PO Last administered on 06/07/16 20: 53; Admin Dose 50 MG; Start 06/03/16 at 21:00 Mycophenolate Mofetil (Cellcept) 1,000 mg BID PO Last administered on 08:35; Admin Dose 1,000 MG; Start 06/03/16 at 21:00 Prednisone (Prednisone) 5 mg DAILY PO Last administered on 06/08/16 08:35; Admin Dose 5 MG; Start 06/04/16 at 09:00 Acetaminophen (Tylenol Tab) 650 mg Q4H PRN PO PAIN AND OR ELEVATED TEMP; Start 06/03/16 at 14:00 Acetaminophen/ Hydrocodone Bitart ([place] (5/325)) 1 tab Q4H PRN PO PAIN Last administered on 06/07/16 20:54; Admin Dose 1 TAB; Start 06/03/16 at 14:30 Morphine Sulfate (morphine) 2 mg Q4H PRN IV PAIN 7-10; Start 06/03/16 at 14:00 Acetylcysteine (Nac) 1,200 mg BID PO Last administered on 06/08/16 08:34; Admin Dose 1,200 MG; Start 06/03/16 at 21:00 Tacrolimus 0.5 mg 0.5 mg Q12 PO Last administered on 06/08/16 08:34; Admin Dose 0.5 MG; Start 06/03/16 at 21:00 Linezolid (Zyvox 600mg/D5W (Pmx)) 300 ml @ 300 mls/hr Q12 IVPB Last administered on 06/08/16 08:31; Admin Dose 300 MLS/HR; Start 06/03/16 at 21:00 Senna (Senokot) 1 tab BID PO Last administered on 06/08/16 08:35; Admin Dose 1 TAB; Start 06/03/16 at 21:00 RAMON KEMP MD Jun 08, 2016 10:41
--- NOTE | 2016-06-08 12:42 | CONS ---
Date/Time of Note Date/Time of Note DATE: 06/08/16 TIME: 12:40 Assessment/Plan Assessment/Plan Chief Complaint/Hosp Course IMPRESSION: 1. Preoperative evaluation prior to intervention on lower extremities for gangrenous changes of the toe. 2. Abnormal electrocardiogram, assess for acute coronary syndrome.-negative troponin x 3/Echo 06/05 EF 60-65/mod-sev TR. No cardiac contraindication to proceeding to OR on current medications at moderate risk 3. Hypertension, mildly elevated. 4. Status post renal transplant. 5. Peripheral arterial disease with lower extremity gangrenous changes and nonhealing wound. 6. Anemia, mild. 7.TR-mod-sev by echo 8. s/p renal transplant Recc: -Continue plavix -Continue Dilt/metoprolol/ACEI -Local wound care -Continue steroids/immunosuppresives Problems: Consultation Date/Type/Reason Admit Date/Time Jun 03, 2016 at 11:09 Initial Consult Date 06/03/16 Type of Consultation: Cardiology Reason for Consultation pre-op Referring Provider: WILD DUARTE MD Exam/Review of Systems Vital Signs Vitals Vital Signs Date Time Temp Pulse Resp B/P Pulse Ox O2 Delivery O2 Flow Rate FiO2 06/08/16 07:53 97.7 61 20 114/63 100 Intake and Output 06/07/16 06/07/16 06/08/16 15:00 23:00 07:00 Intake Total 600 ml 400 ml Balance 600 ml 400 ml Exam Review of Systems: CONSTITUTIONAL: No fevers, chills. PULMONARY: No sob CARDIOVASCULAR: No chest pain/palpitations GASTROINTESTINAL: No nausea/vomiting. GENITOURINARY: No hematuria/dysuria. MUSCULOSKELETAL: No myagias/arthalgias. PSYCHIATRIC: The patient denies depression. NEUROLOGIC: No weakness Constitutional: alert, oriented Psych: no complaints Head: normocephalic ENMT: mucosa pink and moist Neck: jvd (9 cm water), supple Respiratory: diminished breath sounds (at bases/B) Cardiovascular: regular rate and rhythm Gastrointestinal: non-tender, soft Musculoskeletal: muscle tone (normal) Extremities: edema (none) Neurological: other (No focal deficits) Results Result Diagram: 06/08/16 0440 06/08/16 0440 Results 24 hrs Laboratory Tests Test 06/08/16 04:40 Anion Gap 16 Basophils # 0.0 Basophils % 0.0 Blood Morphology Comment Blood Urea Nitrogen 19 Calcium Level 8.9 Carbon Dioxide Level 21 Chloride Level 109 Creatinine 0.89 Eosinophils # 0.1 Eosinophils % 1.8 Glucose Level 83 Hematocrit 32.6 L Hemoglobin 10.5 L Lymphocytes # 0.8 Lymphocytes % 16.7 Mean Corpuscular Hemoglobin 29.1 Mean Corpuscular Hemoglobin Concent 32.1 Mean Corpuscular Volume 90.7 Mean Platelet Volume 10.8 H Monocytes # 0.7 Monocytes % 14.2 H Neutrophils # 3.3 Neutrophils % 67.3 Nucleated Red Blood Cells # 0.0 Nucleated Red Blood Cells % 0.0 Platelet Count 169 Potassium Level 4.6 Red Blood Count 3.59 L Red Cell Distribution Width 15.7 H Sodium Level 141 White Blood Count 4.8 Medications Medications Current Medications Benazepril HCl (Lotensin) 10 mg DAILY PO Last administered on 06/08/16 08:35; Admin Dose 10 MG; Start 06/04/16 at 09:00 Cholecalciferol (Vitamin D) 1,000 unit DAILY PO Last administered on 06/08/16 08:35; Admin Dose 1,000 UNIT; Start 06/04/16 at 09:00 Clopidogrel Bisulfate (plaVIX) 75 mg DAILY PO Last administered on 06/08/16 08 :34; Admin Dose 75 MG; Start 06/04/16 at 09:00 Diltiazem HCl (Cardizem Cd) 180 mg DAILY PO Last administered on 06/07/16 09: 05; Admin Dose 180 MG; Start 06/04/16 at 09:00 Folic Acid (Folic Acid) 1 mg DAILY PO Last administered on 06/08/16 08:35; Admin Dose 1 MG; Start 06/04/16 at 09:00 Metoprolol Tartrate (Lopressor) 50 mg BID PO Last administered on 06/07/16 20: 53; Admin Dose 50 MG; Start 06/03/16 at 21:00 Mycophenolate Mofetil (Cellcept) 1,000 mg BID PO Last administered on 08:35; Admin Dose 1,000 MG; Start 06/03/16 at 21:00 Prednisone (Prednisone) 5 mg DAILY PO Last administered on 06/08/16 08:35; Admin Dose 5 MG; Start 06/04/16 at 09:00 Acetaminophen (Tylenol Tab) 650 mg Q4H PRN PO PAIN AND OR ELEVATED TEMP; Start 06/03/16 at 14:00 Acetaminophen/ Hydrocodone Bitart ([place] (5/325)) 1 tab Q4H PRN PO PAIN Last administered on 06/07/16 20:54; Admin Dose 1 TAB; Start 06/03/16 at 14:30 Morphine Sulfate (morphine) 2 mg Q4H PRN IV PAIN 7-10; Start 06/03/16 at 14:00 Acetylcysteine (Nac) 1,200 mg BID PO Last administered on 06/08/16 08:34; Admin Dose 1,200 MG; Start 06/03/16 at 21:00 Tacrolimus 0.5 mg 0.5 mg Q12 PO Last administered on 06/08/16 08:34; Admin Dose 0.5 MG; Start 06/03/16 at 21:00 Linezolid (Zyvox 600mg/D5W (Pmx)) 300 ml @ 300 mls/hr Q12 IVPB Last administered on 06/08/16 08:31; Admin Dose 300 MLS/HR; Start 06/03/16 at 21:00 Senna 1 tab 1 tab BID PO Last administered on 06/08/16 08:35; Admin Dose 1 TAB ; Start 06/03/16 at 21:00 Sodium Chloride (NS) 1,000 ml @ 75 mls/hr [id number] IV ; Start 06/09/16 at 10:00 TIMOTHY CORTES Jun 08, 2016 12:42
[2016-06-08 20:00] VITALS: BP 141/73; PULSE 68; RESP 18
[2016-06-08] MEDS: HYDROCODONE/APAP (5/325) TAB PO PRN (21:45)
[2016-06-09 06:11] LABS: INR 1.1; PROTIME 14.2 Sec (12.2-14.2); PT RATIO 1.1
[2016-06-09 06:12] LABS: PARTIAL THROMBOPLASTIN TIME 25.4 Sec (25.0-35.0)
[2016-06-09 06:15] LABS: POTASSIUM 5.1 mmol/L (3.5-5.1)
[2016-06-09 06:18] LABS: CREATININE 0.93 mg/dl (0.44-1.00)
[2016-06-09 06:19] LABS: CALCIUM 9.2 mg/dl (8.4-10.2)
[2016-06-09 07:37] VITALS: BP 129/72; RESP 20
[2016-06-09] MEDS: LINEZOLID 600 MG/D5W (PMX) 300 ML IVPB SCH ×2 (09:09→20:45)
[2016-06-09] MEDS: SOD CHLORIDE 0.9% 1,000 ML IV SCH (09:09)
[2016-06-09] MEDS: SENNA TAB PO SCH ×2 (09:11→20:45)
[2016-06-09] MEDS: METOPROLOL 50 MG TAB PO SCH ×2 (09:12→20:47)
[2016-06-09] MEDS: FOLIC ACID 1 MG TAB PO SCH (09:12)
[2016-06-09] MEDS: CLOPIDOGREL 75 MG TAB PO SCH (09:12)
[2016-06-09] MEDS: predniSONE 5 MG TAB PO SCH (09:12)
[2016-06-09] MEDS: CHOLECALCIFEROL 1,000 UNIT TAB PO SCH (09:12)
[2016-06-09] MEDS: TACROLIMUS 0.5 MG CAP PO SCH ×2 (09:12→20:46)
[2016-06-09] MEDS: BENAZEPRIL 20 MG TAB PO SCH (09:13)
[2016-06-09] MEDS: DILTIAZEM (CD) 180 MG CAP PO SCH (09:13)
[2016-06-09] MEDS: MYCOPHENOLATE 250 MG CAP PO SCH ×2 (09:13→20:46)
[2016-06-09] MEDS: ACETYLCYSTEINE 600 MG CAP PO SCH ×2 (09:13→20:46)
--- NOTE | 2016-06-09 11:04 | PN ---
Date/Time of Note Date/Time of Note DATE: 06/09/16 TIME: 11:03 Assessment/Plan VTE Prophylaxis VTE Prophylaxis Intervention: other Lines/Catheters [facility] Type (from [facility]): Saline Lock Urinary Cath still in place: No Assessment/Plan Chief Complaint/Hosp Course 1. Bilateral lower extremity atherosclerosis with gangrene. The patient is followed by Dr. Valencia in vascular surgery consultation, planned for an angiogram on Friday. Dr. Powell is following from cardiology standpoint. Dr. Bowen is following from infectious disease standpoint. 2. End-stage renal disease, status post renal transplant. Continue patient on prednisone and CellCept. Dr. Briscoe is following in nephrology consultation. 3. Hypertension. Continue benazepril, Lopressor and diltiazem. 4. 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 Continue Plavix. 5. Anemia of chronic kidney disease. Continue to monitor hemoglobin and hematocrit. 6. Severe peripheral arterial disease. Continue Plavix. Problems: Subjective 24 Hr Interval Summary Free Text/Dictation Patient has no complaints Exam/Review of Systems Vital Signs Vitals Vital Signs Date Time Temp Pulse Resp B/P Pulse Ox O2 Delivery O2 Flow Rate FiO2 06/09/16 07:37 98.2 62 20 129/72 99 06/08/16 20:00 Room Air Intake and Output 06/08/16 06/08/16 06/09/16 15:00 23:00 07:00 Intake Total 1280 ml 300 ml Output Total 800 ml Balance 480 ml 300 ml Exam Constitutional: well developed Head: atraumatic, normocephalic Neck: supple Respiratory: clear to auscultation Cardiovascular: regular rate and rhythm Gastrointestinal: non-tender, soft Results Result Diagram: 06/08/16 0440 06/09/16 0512 Results 24 hrs Laboratory Tests Test 06/09/16 05:12 Activated Partial Thromboplast Time 25.4 Anion Gap 16 Blood Urea Nitrogen 22 H Calcium Level 9.2 Carbon Dioxide Level 22 Chloride Level 108 Creatinine 0.93 Glucose Level 79 INR International Normalized Ratio 1.10 Potassium Level 5.1 Prothrombin Time 14.2 Prothrombin Time Ratio 1.1 Sodium Level 141 Medications Medications Current Medications Benazepril HCl (Lotensin) 10 mg DAILY PO Last administered on 06/09/16t 09:13; Admin Dose 10 MG; Start 06/04/16 at 09:00 Cholecalciferol (Vitamin D) 1,000 unit DAILY PO Last administered on 06/09/16 09:12; Admin Dose 1,000 UNIT; Start 06/04/16 at 09:00 Clopidogrel Bisulfate (plaVIX) 75 mg DAILY PO Last administered on 06/09/16 09 :12; Admin Dose 75 MG; Start 06/04/16 at 09:00 Diltiazem HCl (Cardizem Cd) 180 mg DAILY PO Last administered on 06/09/16 09: 13; Admin Dose 180 MG; Start 06/04/16 at 09:00 Folic Acid (Folic Acid) 1 mg DAILY PO Last administered on 06/09/16 09:12; Admin Dose 1 MG; Start 06/04/16 at 09:00 Metoprolol Tartrate (Lopressor) 50 mg BID PO Last administered on 06/09/16 09: 12; Admin Dose 50 MG; Start 06/03/16 at 21:00 Mycophenolate Mofetil (Cellcept) 1,000 mg BID PO Last administered on 09:13; Admin Dose 1,000 MG; Start 06/03/16 at 21:00 Prednisone (Prednisone) 5 mg DAILY PO Last administered on 06/09/16 09:12; Admin Dose 5 MG; Start 06/04/16 at 09:00 Acetaminophen (Tylenol Tab) 650 mg Q4H PRN PO PAIN AND OR ELEVATED TEMP; Start 06/03/16 at 14:00 Acetaminophen/ Hydrocodone Bitart ([place] (5/325)) 1 tab Q4H PRN PO PAIN Last administered on 06/08/16 21:45; Admin Dose 1 TAB; Start 06/03/16 at 14:30 Morphine Sulfate (morphine) 2 mg Q4H PRN IV PAIN 7-10; Start 06/03/16 at 14:00 Acetylcysteine (Nac) 1,200 mg BID PO Last administered on 06/09/16 09:13; Admin Dose 1,200 MG; Start 06/03/16 at 21:00 Tacrolimus 0.5 mg 0.5 mg Q12 PO Last administered on 06/09/16 09:12; Admin Dose 0.5 MG; Start 06/03/16 at 21:00 Linezolid (Zyvox 600mg/D5W (Pmx)) 300 ml @ 300 mls/hr Q12 IVPB Last administered on 06/09/16 09:09; Admin Dose 300 MLS/HR; Start 06/03/16 at 21:00 Senna 1 tab 1 tab BID PO Last administered on 06/09/16 09:11; Admin Dose 1 TAB ; Start 06/03/16 at 21:00 Sodium Chloride (NS) 1,000 ml @ 75 mls/hr [id number] IV Last administered on 06/09 09:09; Admin Dose 75 MLS/HR; Start 06/09/16 at 10:00 RUPERTO ANDUJAR Jun 09, 2016 11:04
--- NOTE | 2016-06-09 11:30 | CONS ---
Date/Time of Note Date/Time of Note DATE: 06/09/16 TIME: 11:29 Assessment/Plan Assessment/Plan Chief Complaint/Hosp Course IMPRESSION: 1. Preoperative evaluation prior to intervention on lower extremities for gangrenous changes of the toe. 2. Abnormal electrocardiogram, assess for acute coronary syndrome.-negative troponin x 3/Echo 06/05 EF 60-65/mod-sev TR. No cardiac contraindication to proceeding to OR on current medications at moderate risk 3. Hypertension, mildly elevated. 4. Status post renal transplant. 5. Peripheral arterial disease with lower extremity gangrenous changes and nonhealing wound. 6. Anemia, mild. 7.TR-mod-sev by echo 8. s/p renal transplant Recc: -Continue plavix -Continue Dilt/metoprolol/ACEI -Local wound care -Continue steroids/immunosuppresives -Pnding vascular surgery intervention Problems: Consultation Date/Type/Reason Admit Date/Time Jun 03, 2016 at 11:09 Initial Consult Date 06/03/16 Type of Consultation: Cardiology Reason for Consultation Pre-op Referring Provider: WILD DUARTE MD Exam/Review of Systems Vital Signs Vitals Vital Signs Date Time Temp Pulse Resp B/P Pulse Ox O2 Delivery O2 Flow Rate FiO2 06/09/16 07:37 98.2 62 20 129/72 99 06/08/16 20:00 Room Air Intake and Output 06/08/16 06/08/16 06/09/16 15:00 23:00 07:00 Intake Total 1280 ml 300 ml Output Total 800 ml Balance 480 ml 300 ml Exam Review of Systems: CONSTITUTIONAL: No fevers, chills. PULMONARY: No sob CARDIOVASCULAR: No chest pain/palpitations GASTROINTESTINAL: No nausea/vomiting. GENITOURINARY: No hematuria/dysuria. MUSCULOSKELETAL: Pain in foot PSYCHIATRIC: The patient denies depression. NEUROLOGIC: No weakness Constitutional: alert, oriented Head: normocephalic ENMT: mucosa pink and moist Neck: jvd (9 cm water), supple Respiratory: clear to auscultation Cardiovascular: regular rate and rhythm Gastrointestinal: nl liver, spleen, soft Musculoskeletal: muscle tone (normal) Extremities: other (Gangrenous changes of toe) Neurological: other (No focak deficits) Results Result Diagram: 06/08/16 0440 06/09/16 0512 Results 24 hrs Laboratory Tests Test 06/09/16 05:12 Activated Partial Thromboplast Time 25.4 Anion Gap 16 Blood Urea Nitrogen 22 H Calcium Level 9.2 Carbon Dioxide Level 22 Chloride Level 108 Creatinine 0.93 Glucose Level 79 INR International Normalized Ratio 1.10 Potassium Level 5.1 Prothrombin Time 14.2 Prothrombin Time Ratio 1.1 Sodium Level 141 Medications Medications Current Medications Benazepril HCl (Lotensin) 10 mg DAILY PO Last administered on 06/09/16 09:13; Admin Dose 10 MG; Start 06/04/16 at 09:00 Cholecalciferol (Vitamin D) 1,000 unit DAILY PO Last administered on 06/09/16 09:12; Admin Dose 1,000 UNIT; Start 06/04/16 at 09:00 Clopidogrel Bisulfate (plaVIX) 75 mg DAILY PO Last administered on 06/09/16 09 :12; Admin Dose 75 MG; Start 06/04/16 at 09:00 Diltiazem HCl (Cardizem Cd) 180 mg DAILY PO Last administered on 06/09/16 09: 13; Admin Dose 180 MG; Start 06/04/16 at 09:00 Folic Acid (Folic Acid) 1 mg DAILY PO Last administered on 06/09/16 09:12; Admin Dose 1 MG; Start 06/04/16 at 09:00 Metoprolol Tartrate (Lopressor) 50 mg BID PO Last administered on 06/09/16 09: 12; Admin Dose 50 MG; Start 06/03/16 at 21:00 Mycophenolate Mofetil (Cellcept) 1,000 mg BID PO Last administered on 09:13; Admin Dose 1,000 MG; Start 06/03/16 at 21:00 Prednisone (Prednisone) 5 mg DAILY PO Last administered on 06/09/16 09:12; Admin Dose 5 MG; Start 06/04/16 at 09:00 Acetaminophen (Tylenol Tab) 650 mg Q4H PRN PO PAIN AND OR ELEVATED TEMP; Start 06/03/16 at 14:00 Acetaminophen/ Hydrocodone Bitart ([place] (5/325)) 1 tab Q4H PRN PO PAIN Last administered on 06/08/16 21:45; Admin Dose 1 TAB; Start 06/03/16 at 14:30 Morphine Sulfate (morphine) 2 mg Q4H PRN IV PAIN 7-10; Start 06/03/16 at 14:00 Acetylcysteine (Nac) 1,200 mg BID PO Last administered on 06/09/16 09:13; Admin Dose 1,200 MG; Start 06/03/16 at 21:00 Tacrolimus 0.5 mg 0.5 mg Q12 PO Last administered on 06/09/16 09:12; Admin Dose 0.5 MG; Start 06/03/16 at 21:00 Linezolid (Zyvox 600mg/D5W (Pmx)) 300 ml @ 300 mls/hr Q12 IVPB Last administered on 06/09/16 09:09; Admin Dose 300 MLS/HR; Start 06/03/16 at 21:00 Senna 1 tab 1 tab BID PO Last administered on 06/09/16 09:11; Admin Dose 1 TAB ; Start 06/03/16 at 21:00 Sodium Chloride (NS) 1,000 ml @ 75 mls/hr [id number] IV Last administered on 06/09 09:09; Admin Dose 75 MLS/HR; Start 06/09/16 at 10:00 TIMOTHY CORTES Jun 09, 2016 11:30
--- NOTE | 2016-06-09 18:14 | CONS ---
Date/Time of Note Date/Time of Note DATE: 06/09/16 TIME: 18:12 Assessment/Plan Assessment/Plan Additional Assessment/Plan 1. Left lower extremity gangrene getting admitted for possible lower extremity angiogram. 2. Acute hyperkalemia, potassium 5.2. 3. Status post donor kidney transplant in 2009 at [facility], currently on immunosuppression with Prograf, CellCept, prednisone. 4. History of previous end-stage renal disease on hemodialysis secondary to diabetic nephropathy. 5. History of hypertension. 6. History of diabetes mellitus. 7. History of previous left upper extremity arteriovenous fistula. PLAN: continue Current immunosuppression with cellcept, prograf and prednisone Right lower quadrant Renal allograft US - normal pt is cleared to have angigoram from renal point of view,-will start IVF hydration with NS at 70 cc/hr today and will continue it until 6 hr post angiogram currently she is on Mucocyst BID will follow up Consultation Date/Type/Reason Admit Date/Time Jun 03, 2016 at 11:09 Initial Consult Date May Type of Consultation: NEPHROLOGY Reason for Consultation Kidney transplant on immunosuppression, plan for LE angiogram Referring Provider: WILD DUARTE MD 24 HR Interval Summary Free Text/Dictation no acute events, plan for LE angiogram on Friday Exam/Review of Systems Vital Signs Vitals Vital Signs Date Time Temp Pulse Resp B/P Pulse Ox O2 Delivery O2 Flow Rate FiO2 06/09/16 07:37 98.2 62 20 129/72 99 06/08/16 20:00 Room Air Intake and Output 06/08/16 06/08/16 06/09/16 15:00 23:00 07:00 Intake Total 1280 ml 300 ml Output Total 800 ml Balance 480 ml 300 ml Exam GENERAL: Awake, alert, in no distress. HEENT: Normal. Oropharynx clear. NECK: Supple, no JVD, no lymphadenopathy. LUNGS: Clear to auscultation. No crackles, no wheezes. HEART: S1, S2, with regular rhythm, no murmur. ABDOMEN: Soft, nontender, nondistended. Bowel sounds are present. EXTREMITIES: No clubbing, cyanosis, or edema. LLE gangrene Results Result Diagram: 06/08/16 0440 06/09/16 0512 Results 24 hrs Laboratory Tests Test 06/09/16 05:12 Activated Partial Thromboplast Time 25.4 Anion Gap 16 Blood Urea Nitrogen 22 H Calcium Level 9.2 Carbon Dioxide Level 22 Chloride Level 108 Creatinine 0.93 Glucose Level 79 INR International Normalized Ratio 1.10 Potassium Level 5.1 Prothrombin Time 14.2 Prothrombin Time Ratio 1.1 Sodium Level 141 Medications Medications Current Medications Benazepril HCl (Lotensin) 10 mg DAILY PO Last administered on 06/09/16 09:13; Admin Dose 10 MG; Start 06/04/16 at 09:00 Cholecalciferol (Vitamin D) 1,000 unit DAILY PO Last administered on 06/09/16 09:12; Admin Dose 1,000 UNIT; Start 06/04/16 at 09:00 Clopidogrel Bisulfate (plaVIX) 75 mg DAILY PO Last administered on 06/09/16 09 :12; Admin Dose 75 MG; Start 06/04/16 at 09:00 Diltiazem HCl (Cardizem Cd) 180 mg DAILY PO Last administered on 06/09/16 09: 13; Admin Dose 180 MG; Start 06/04/16 at 09:00 Folic Acid (Folic Acid) 1 mg DAILY PO Last administered on 06/09/16 09:12; Admin Dose 1 MG; Start 06/04/16 at 09:00 Metoprolol Tartrate (Lopressor) 50 mg BID PO Last administered on 06/09/16 09: 12; Admin Dose 50 MG; Start 06/03/16 at 21:00 Mycophenolate Mofetil (Cellcept) 1,000 mg BID PO Last administered on 09:13; Admin Dose 1,000 MG; Start 06/03/16 at 21:00 Prednisone (Prednisone) 5 mg DAILY PO Last administered on 06/09/16 09:12; Admin Dose 5 MG; Start 06/04/16 at 09:00 Acetaminophen (Tylenol Tab) 650 mg Q4H PRN PO PAIN AND OR ELEVATED TEMP; Start 06/03/16 at 14:00 Acetaminophen/ Hydrocodone Bitart ([place] (5/325)) 1 tab Q4H PRN PO PAIN Last administered on 06/08/16 21:45; Admin Dose 1 TAB; Start 06/03/16 at 14:30 Morphine Sulfate (morphine) 2 mg Q4H PRN IV PAIN 7-10; Start 06/03/16 at 14:00 Acetylcysteine (Nac) 1,200 mg BID PO Last administered on 06/09/16 09:13; Admin Dose 1,200 MG; Start 06/03/16 at 21:00 Tacrolimus 0.5 mg 0.5 mg Q12 PO Last administered on 06/09/16 09:12; Admin Dose 0.5 MG; Start 06/03/16 at 21:00 Linezolid (Zyvox 600mg/D5W (Pmx)) 300 ml @ 300 mls/hr Q12 IVPB Last administered on 06/09/16 09:09; Admin Dose 300 MLS/HR; Start 06/03/16 at 21:00 Senna 1 tab 1 tab BID PO Last administered on 06/09/16 09:11; Admin Dose 1 TAB ; Start 06/03/16 at 21:00 Sodium Chloride (NS) 1,000 ml @ 75 mls/hr [id number] IV Last administered on 06/09 09:09; Admin Dose 75 MLS/HR; Start 06/09/16 at 10:00 RAMON KEMP MD Jun 09, 2016 18:14
--- NOTE | 2016-06-09 18:22 | CONS ---
Date/Time of Note Date/Time of Note DATE: 06/09/16 TIME: 18:22 Assessment/Plan Assessment/Plan Chief Complaint/Hosp Course SUBJECTIVE: The patient is alert. Looks comfortable. She is in no distress. No fevers. ANTIMICROBIALS: Zyvox. MICROBIOLOGY: no cultures. PHYSICAL EXAMINATION: GENERAL: This is a well-nourished, well-developed, fragile, elderly woman who is alert, in no distress. HEENT: Head atraumatic, normocephalic. Sclerae anicteric. Buccal mucosa pink. NECK: Supple, trachea midline. CHEST: Rise symmetrical. Breath sounds clear. HEART: S1, S2. ABDOMEN: Soft, bowel sounds present. EXTREMITIES: Left foot gangrenous change and open wound. Right foot also with gangrenous changes of little toe. ASSESSMENT: 1. Bilateral lower extremity gangrene R>L. 2. End-stage renal disease with a history of kidney transplant in 2009, on Prograf, CellCept, and prednisone. 3. History of left upper extremity AV fistula currently not working. 4. Severe peripheral vascular disease. PLAN: The patient remains stable. Continue abx. Follow vascular rec-s. DW staff Problems: Consultation Date/Type/Reason Admit Date/Time Jun 03, 2016 at 11:09 Type of Consultation: ID Referring Provider: WILD DUARTE MD Exam/Review of Systems Vital Signs Vitals Vital Signs Date Time Temp Pulse Resp B/P Pulse Ox O2 Delivery O2 Flow Rate FiO2 06/09/16 07:37 98.2 62 20 129/72 99 06/08/16 20:00 Room Air Intake and Output 06/08/16 06/08/16 06/09/16 15:00 23:00 07:00 Intake Total 1280 ml 300 ml Output Total 800 ml Balance 480 ml 300 ml Results Result Diagram: 06/08/16 0440 06/09/16 0512 Results 24 hrs Laboratory Tests Test 06/09/16 05:12 Activated Partial Thromboplast Time 25.4 Anion Gap 16 Blood Urea Nitrogen 22 H Calcium Level 9.2 Carbon Dioxide Level 22 Chloride Level 108 Creatinine 0.93 Glucose Level 79 INR International Normalized Ratio 1.10 Potassium Level 5.1 Prothrombin Time 14.2 Prothrombin Time Ratio 1.1 Sodium Level 141 Medications Medications Current Medications Benazepril HCl (Lotensin) 10 mg DAILY PO Last administered on 06/09/16 09:13; Admin Dose 10 MG; Start 06/04/16 at 09:00 Cholecalciferol (Vitamin D) 1,000 unit DAILY PO Last administered on 06/09/16 09:12; Admin Dose 1,000 UNIT; Start 06/04/16 at 09:00 Clopidogrel Bisulfate (plaVIX) 75 mg DAILY PO Last administered on 06/09/16 09 :12; Admin Dose 75 MG; Start 06/04/16 at 09:00 Diltiazem HCl (Cardizem Cd) 180 mg DAILY PO Last administered on 06/09/16 09: 13; Admin Dose 180 MG; Start 06/04/16 at 09:00 Folic Acid (Folic Acid) 1 mg DAILY PO Last administered on 06/09/16 09:12; Admin Dose 1 MG; Start 06/04/16 at 09:00 Metoprolol Tartrate (Lopressor) 50 mg BID PO Last administered on 06/09/16 09: 12; Admin Dose 50 MG; Start 06/03/16 at 21:00 Mycophenolate Mofetil (Cellcept) 1,000 mg BID PO Last administered on 09:13; Admin Dose 1,000 MG; Start 06/03/16 at 21:00 Prednisone (Prednisone) 5 mg DAILY PO Last administered on 06/09/16 09:12; Admin Dose 5 MG; Start 06/04/16 at 09:00 Acetaminophen (Tylenol Tab) 650 mg Q4H PRN PO PAIN AND OR ELEVATED TEMP; Start 06/03/16 at 14:00 Acetaminophen/ Hydrocodone Bitart ([place] (5/325)) 1 tab Q4H PRN PO PAIN Last administered on 06/08/16 21:45; Admin Dose 1 TAB; Start 06/03/16 at 14:30 Morphine Sulfate (morphine) 2 mg Q4H PRN IV PAIN 7-10; Start 06/03/16 at 14:00 Acetylcysteine (Nac) 1,200 mg BID PO Last administered on 06/09/16 09:13; Admin Dose 1,200 MG; Start 06/03/16 at 21:00 Tacrolimus 0.5 mg 0.5 mg Q12 PO Last administered on 06/09/16 09:12; Admin Dose 0.5 MG; Start 06/03/16 at 21:00 Linezolid (Zyvox 600mg/D5W (Pmx)) 300 ml @ 300 mls/hr Q12 IVPB Last administered on 06/09/16 09:09; Admin Dose 300 MLS/HR; Start 06/03/16 at 21:00 Senna 1 tab 1 tab BID PO Last administered on 06/09/16 09:11; Admin Dose 1 TAB ; Start 06/03/16 at 21:00 Sodium Chloride (NS) 1,000 ml @ 75 mls/hr [id number] IV Last administered on 06/09 09:09; Admin Dose 75 MLS/HR; Start 06/09/16 at 10:00 JACQUES HUERTA NP Jun 09, 2016 18:22
[2016-06-09 20:13] VITALS: BP 116/64; RESP 16
[2016-06-10] VITALS (11 sets, daily range): BP systolic 137–155; BP diastolic 65–77; PULSE 50–55; RESP 18–20
[2016-06-10 06:31] LABS: EOSINOPHILS # 0.1 10^3/ul (0.0-0.5); EOSINOPHILS % 1.2 % (0.0-7.0); HEMATOCRIT 34.9 % (37.0-47.0); HEMOGLOBIN 11.2 g/dl (12.0-16.0); LYMPHOCYTES % 19.1 % (15.0-51.0); MEAN CORPUSCULAR HEMOGLOBIN 29.2 pg (29.0-33.0); MEAN CORPUSCULAR VOLUME 91.4 fl (82.0-101.0); MEAN PLATELET VOLUME 10.3 fl (7.4-10.4); MONOCYTE # 0.5 10^3/ul (0.3-0.9); NEUTROPHIL # 3.5 10^3/ul (1.6-7.5); NEUTROPHILS % 69.7 % (39.0-77.0); PLATELET COUNT 177 10^3/UL (140-440); RED BLOOD COUNT 3.82 10^6/ul (4.20-5.40); RED CELL DISTRIBUTION WIDTH 15.2 % (11.5-14.5)
[2016-06-10 06:33] LABS: CONDITION 1; LH ANALYZER COMMENTS 1; NUCLEATED RED BLOOD CELLS # 0.1 10^3/ul (0.0-0.0)
[2016-06-10 06:34] LABS: INR 1.15; PROTIME 14.7 Sec (12.2-14.2); PT RATIO 1.1
[2016-06-10 06:35] LABS: ALBUMIN 3.3 g/dl (3.3-4.9); PARTIAL THROMBOPLASTIN TIME 27.5 Sec (25.0-35.0)
[2016-06-10 06:36] LABS: POTASSIUM 4.8 mmol/L (3.5-5.1)
[2016-06-10 06:38] LABS: ALBUMIN/GLOBULIN RATIO 1.26; BILIRUBIN,INDIRECT 0.1 mg/dl (0-1.1); BILIRUBIN,TOTAL 0.1 mg/dl (0.2-1.3); CREATININE 0.78 mg/dl (0.44-1.00); TOTAL PROTEIN 5.9 g/dl (6.1-8.1)
[2016-06-10] MEDS ORDERED: CEFAZOLIN 2 GM/50 ML (PMX) IVPB ONE (07:00)
[2016-06-10] MEDS ORDERED: LIDOCAINE 2% (SDV) 5 ML INJ ONE (07:00)
[2016-06-10] MEDS ORDERED: PROPOFOL 200 MG INJ ONE (07:00)
[2016-06-10] MEDS: LINEZOLID 600 MG/D5W (PMX) 300 ML IVPB SCH (08:51)
[2016-06-10] MEDS: ACETYLCYSTEINE 600 MG CAP PO SCH ×2 (08:53→21:23)
[2016-06-10] MEDS: SENNA TAB PO SCH ×2 (08:54→21:23)
[2016-06-10] MEDS: DILTIAZEM (CD) 180 MG CAP PO SCH (08:54)
[2016-06-10] MEDS: MYCOPHENOLATE 250 MG CAP PO SCH ×2 (08:54→21:22)
[2016-06-10] MEDS: METOPROLOL 50 MG TAB PO SCH ×2 (08:55→21:29)
[2016-06-10] MEDS: FOLIC ACID 1 MG TAB PO SCH (08:55)
[2016-06-10] MEDS: predniSONE 5 MG TAB PO SCH (08:56)
[2016-06-10] MEDS: BENAZEPRIL 20 MG TAB PO SCH (08:56)
[2016-06-10] MEDS: CLOPIDOGREL 75 MG TAB PO SCH (08:56)
[2016-06-10] MEDS: CHOLECALCIFEROL 1,000 UNIT TAB PO SCH (08:56)
[2016-06-10] MEDS: TACROLIMUS 0.5 MG CAP PO SCH ×2 (08:57→21:22)
[2016-06-10] MEDS: SOD CHLORIDE 0.9% 1,000 ML IV SCH ×2 (12:40)
--- NOTE | 2016-06-10 12:57 | CONS ---
Date/Time of Note Date/Time of Note DATE: 06/10/16 TIME: 12:56 Assessment/Plan Assessment/Plan Chief Complaint/Hosp Course SUBJECTIVE: The patient is alert. Looks comfortable. She is in no distress. No fevers. ANTIMICROBIALS: Zyvox. MICROBIOLOGY: no cultures. PHYSICAL EXAMINATION: GENERAL: This is a well-nourished, well-developed, fragile, elderly woman who is alert, in no distress. HEENT: Head atraumatic, normocephalic. Sclerae anicteric. Buccal mucosa pink. NECK: Supple, trachea midline. CHEST: Rise symmetrical. Breath sounds clear. HEART: S1, S2. ABDOMEN: Soft, bowel sounds present. EXTREMITIES: Left foot gangrenous change and open wound. Right foot also with gangrenous changes of little toe. ASSESSMENT: 1. Bilateral lower extremity gangrene L>R. 2. End-stage renal disease with a history of kidney transplant in 2009, on Prograf, CellCept, and prednisone. 3. History of left upper extremity AV fistula currently not working. 4. Severe peripheral vascular disease. PLAN: The patient remains stable. Continue abx. Follow vascular rec-s. DW staff Problems: Consultation Date/Type/Reason Admit Date/Time Jun 03, 2016 at 11:09 Type of Consultation: ID Referring Provider: WILD DUARTE MD Exam/Review of Systems Vital Signs Vitals Vital Signs Date Time Temp Pulse Resp B/P Pulse Ox O2 Delivery O2 Flow Rate FiO2 06/10/16 08:08 98.3 65 20 138/70 100 06/08/16 20:00 Room Air Intake and Output 06/09/16 06/09/16 06/10/16 15:00 23:00 07:00 Intake Total 2420 ml 1275 ml Output Total 1150 ml 800 ml Balance 1270 ml 475 ml Results Result Diagram: 06/10/16 0525 06/10/16 0525 Results 24 hrs Laboratory Tests Test 06/10/16 05:25 Activated Partial Thromboplast Time 27.5 Alanine Aminotransferase (ALT/SGPT) 43 Albumin 3.3 Albumin/Globulin Ratio 1.26 Alkaline Phosphatase 191 H Anion Gap 20 H Aspartate Amino Transf (AST/SGOT) 27 Basophils # 0.0 Basophils % 0.0 Blood Morphology Comment Blood Urea Nitrogen 18 Calcium Level 9.0 Carbon Dioxide Level 16 L Chloride Level 112 H Creatinine 0.78 Direct Bilirubin 0.00 Eosinophils # 0.1 Eosinophils % 1.2 Globulin 2.60 Glucose Level 80 Hematocrit 34.9 L Hemoglobin 11.2 L INR International Normalized Ratio 1.15 Indirect Bilirubin 0.1 Lymphocytes # 1.0 Lymphocytes % 19.1 Mean Corpuscular Hemoglobin 29.2 Mean Corpuscular Hemoglobin Concent 32.0 Mean Corpuscular Volume 91.4 Mean Platelet Volume 10.3 Monocytes # 0.5 Monocytes % 10.0 Neutrophils # 3.5 Neutrophils % 69.7 Nucleated Red Blood Cells # 0.1 H Nucleated Red Blood Cells % 2.0 H Platelet Count 177 Potassium Level 4.8 Prothrombin Time 14.7 H Prothrombin Time Ratio 1.1 Red Blood Count 3.82 L Red Cell Distribution Width 15.2 H Sodium Level 143 Total Bilirubin 0.1 L Total Protein 5.9 L White Blood Count 5.0 Medications Medications Current Medications Benazepril HCl (Lotensin) 10 mg DAILY PO Last administered on 06/10/16 08:56; Admin Dose 10 MG; Start 06/04/16 at 09:00 Cholecalciferol (Vitamin D) 1,000 unit DAILY PO Last administered on 06/10/16 08:56; Admin Dose 1,000 UNIT; Start 06/04/16 at 09:00 Clopidogrel Bisulfate (plaVIX) 75 mg DAILY PO Last administered on 06/10/16 08 :56; Admin Dose 75 MG; Start 06/04/16 at 09:00 Diltiazem HCl (Cardizem Cd) 180 mg DAILY PO Last administered on 06/10/16 08: 54; Admin Dose 180 MG; Start 06/04/16 at 09:00 Folic Acid (Folic Acid) 1 mg DAILY PO Last administered on 06/10/16 08:55; Admin Dose 1 MG; Start 06/04/16 at 09:00 Metoprolol Tartrate (Lopressor) 50 mg BID PO Last administered on 06/10/16 08: 55; Admin Dose 50 MG; Start 06/03/16 at 21:00 Mycophenolate Mofetil (Cellcept) 1,000 mg BID PO Last administered on 08:54; Admin Dose 1,000 MG; Start 06/03/16 at 21:00 Prednisone (Prednisone) 5 mg DAILY PO Last administered on 06/10/16 08:56; Admin Dose 5 MG; Start 06/04/16 at 09:00 Acetaminophen (Tylenol Tab) 650 mg Q4H PRN PO PAIN AND OR ELEVATED TEMP; Start 06/03/16 at 14:00 Acetaminophen/ Hydrocodone Bitart ([place] (5/325)) 1 tab Q4H PRN PO PAIN Last administered on 06/08/16 21:45; Admin Dose 1 TAB; Start 06/03/16 at 14:30 Morphine Sulfate (morphine) 2 mg Q4H PRN IV PAIN 7-10; Start 06/03/16 at 14:00 Acetylcysteine (Nac) 1,200 mg BID PO Last administered on 06/10/16 08:53; Admin Dose 1,200 MG; Start 06/03/16 at 21:00 Tacrolimus 0.5 mg 0.5 mg Q12 PO Last administered on 06/10/16 08:57; Admin Dose 0.5 MG; Start 06/03/16 at 21:00 Linezolid (Zyvox 600mg/D5W (Pmx)) 300 ml @ 300 mls/hr Q12 IVPB Last administered on 06/10/16 08:51; Admin Dose 300 MLS/HR; Start 06/03/16 at 21:00 Senna 1 tab 1 tab BID PO Last administered on 06/10/16 08:54; Admin Dose 1 TAB ; Start 06/03/16 at 21:00 Sodium Chloride (NS) 1,000 ml @ 75 mls/hr [id number] IV Last administered on 06/10 00:00; Admin Dose 75 MLS/HR; Start 06/09/16 at 10:00 JACQUES HUERTA NP Jun 10, 2016 12:57
--- NOTE | 2016-06-10 13:02 | CONS ---
Date/Time of Note Date/Time of Note DATE: 06/10/16 TIME: 13:01 Assessment/Plan Assessment/Plan Chief Complaint/Hosp Course IMPRESSION: 1. Preoperative evaluation prior to intervention on lower extremities for gangrenous changes of the toe. 2. Abnormal electrocardiogram, assess for acute coronary syndrome.-negative troponin x 3/Echo 06/05 EF 60-65/mod-sev TR. No cardiac contraindication to proceeding to OR on current medications at moderate risk 3. Hypertension, mildly elevated. 4. Status post renal transplant. 5. Peripheral arterial disease with lower extremity gangrenous changes and nonhealing wound. 6. Anemia, mild. 7.TR-mod-sev by echo 8. s/p renal transplant Recc: -Continue plavix -Continue Dilt/metoprolol/ACEI -Local wound care -Continue steroids/immunosuppresives -Pnding vascular surgery intervention Problems: Consultation Date/Type/Reason Admit Date/Time Jun 03, 2016 at 11:09 Initial Consult Date 06/03/16 Type of Consultation: Cardiology Reason for Consultation pre-op Referring Provider: WILD DUARTE MD Exam/Review of Systems Vital Signs Vitals Vital Signs Date Time Temp Pulse Resp B/P Pulse Ox O2 Delivery O2 Flow Rate FiO2 06/10/16 08:08 98.3 65 20 138/70 100 06/08/16 20:00 Room Air Intake and Output 06/09/16 06/09/16 06/10/16 15:00 23:00 07:00 Intake Total 2420 ml 1275 ml Output Total 1150 ml 800 ml Balance 1270 ml 475 ml Exam Review of Systems: CONSTITUTIONAL: No fevers, chills. PULMONARY: No sob CARDIOVASCULAR: No chest pain/palpitations GASTROINTESTINAL: No nausea/vomiting. GENITOURINARY: No hematuria/dysuria. MUSCULOSKELETAL: pain in foot PSYCHIATRIC: The patient denies depression. NEUROLOGIC: No weakness Constitutional: alert, oriented Psych: no complaints Head: normocephalic ENMT: mucosa pink and moist Neck: jvd (8 cm water), supple Respiratory: clear to auscultation Cardiovascular: regular rate and rhythm Gastrointestinal: non-tender, soft Musculoskeletal: muscle tone (normal) Extremities: edema, other (Gangrenous changes on foot) Neurological: other (No focal deficits) Results Result Diagram: 06/10/1625 06/10/16524 Results 24 hrs Laboratory Tests Test 06/10/16 05:25 Activated Partial Thromboplast Time 27.5 Alanine Aminotransferase (ALT/SGPT) 43 Albumin 3.3 Albumin/Globulin Ratio 1.26 Alkaline Phosphatase 191 H Anion Gap 20 H Aspartate Amino Transf (AST/SGOT) 27 Basophils # 0.0 Basophils % 0.0 Blood Morphology Comment Blood Urea Nitrogen 18 Calcium Level 9.0 Carbon Dioxide Level 16 L Chloride Level 112 H Creatinine 0.78 Direct Bilirubin 0.00 Eosinophils # 0.1 Eosinophils % 1.2 Globulin 2.60 Glucose Level 80 Hematocrit 34.9 L Hemoglobin 11.2 L INR International Normalized Ratio 1.15 Indirect Bilirubin 0.1 Lymphocytes # 1.0 Lymphocytes % 19.1 Mean Corpuscular Hemoglobin 29.2 Mean Corpuscular Hemoglobin Concent 32.0 Mean Corpuscular Volume 91.4 Mean Platelet Volume 10.3 Monocytes # 0.5 Monocytes % 10.0 Neutrophils # 3.5 Neutrophils % 69.7 Nucleated Red Blood Cells # 0.1 H Nucleated Red Blood Cells % 2.0 H Platelet Count 177 Potassium Level 4.8 Prothrombin Time 14.7 H Prothrombin Time Ratio 1.1 Red Blood Count 3.82 L Red Cell Distribution Width 15.2 H Sodium Level 143 Total Bilirubin 0.1 L Total Protein 5.9 L White Blood Count 5.0 Medications Medications Current Medications Benazepril HCl (Lotensin) 10 mg DAILY PO Last administered on 06/10/16 08:56; Admin Dose 10 MG; Start 06/04/16 at 09:00 Cholecalciferol (Vitamin D) 1,000 unit DAILY PO Last administered on 06/10/16 08:56; Admin Dose 1,000 UNIT; Start 06/04/16 at 09:00 Clopidogrel Bisulfate (plaVIX) 75 mg DAILY PO Last administered on 06/10/16 08 :56; Admin Dose 75 MG; Start 06/04/16 at 09:00 Diltiazem HCl (Cardizem Cd) 180 mg DAILY PO Last administered on 06/10/16 08: 54; Admin Dose 180 MG; Start 06/04/16 at 09:00 Folic Acid (Folic Acid) 1 mg DAILY PO Last administered on 06/10/16 08:55; Admin Dose 1 MG; Start 06/04/16 at 09:00 Metoprolol Tartrate (Lopressor) 50 mg BID PO Last administered on 06/10/16 08: 55; Admin Dose 50 MG; Start 06/03/16 at 21:00 Mycophenolate Mofetil (Cellcept) 1,000 mg BID PO Last administered on 08:54; Admin Dose 1,000 MG; Start 06/03/16 at 21:00 Prednisone (Prednisone) 5 mg DAILY PO Last administered on 06/10/16 08:56; Admin Dose 5 MG; Start 06/04/16 at 09:00 Acetaminophen (Tylenol Tab) 650 mg Q4H PRN PO PAIN AND OR ELEVATED TEMP; Start 06/03/16 at 14:00 Acetaminophen/ Hydrocodone Bitart ([place] (5/325)) 1 tab Q4H PRN PO PAIN Last administered on 06/08/16 21:45; Admin Dose 1 TAB; Start 06/03/16 at 14:30 Morphine Sulfate (morphine) 2 mg Q4H PRN IV PAIN 7-10; Start 06/03/16 at 14:00 Acetylcysteine (Nac) 1,200 mg BID PO Last administered on 06/10/16 08:53; Admin Dose 1,200 MG; Start 06/03/16 at 21:00 Tacrolimus 0.5 mg 0.5 mg Q12 PO Last administered on 06/10/16 08:57; Admin Dose 0.5 MG; Start 06/03/16 at 21:00 Linezolid (Zyvox 600mg/D5W (Pmx)) 300 ml @ 300 mls/hr Q12 IVPB Last administered on 06/10/16 08:51; Admin Dose 300 MLS/HR; Start 06/03/16 at 21:00 Senna 1 tab 1 tab BID PO Last administered on 06/10/16 08:54; Admin Dose 1 TAB ; Start 06/03/16 at 21:00 Sodium Chloride (NS) 1,000 ml @ 75 mls/hr [id number] IV Last administered on 06/10 00:00; Admin Dose 75 MLS/HR; Start 06/09/16 at 10:00 TIMOTHY CORTES Jun 10, 2016 13:02
[2016-06-10] MEDS ORDERED: IODIXANOL LOCM 100 ML BTL ONE (13:45)
[2016-06-10] MEDS ORDERED: HEPARIN 1000 UNITS/ML 10 ML INJ ONE (13:45)
[2016-06-10] MEDS ORDERED: HEPARIN 1000 UNITS/NS (A-LINE) 1,000 ML ONE (13:45)
[2016-06-10] MEDS ORDERED: LIDOCAINE 1% (MDV) 20 ML INJ ONE (13:45)
[2016-06-10] MEDS ORDERED: SOD CHLORIDE 0.9% 500 ML ONE (13:46)
[2016-06-10] MEDS ORDERED: FENTAnyl 50 MCG/ML VIAL ONE (14:09)
[2016-06-10] MEDS ORDERED: MIDAZOLAM 1 MG/ML 2 ML INJ ONE (14:09)
[2016-06-10] MEDS ORDERED: PROPOFOL 0 ML ONE (14:09)
--- NOTE | 2016-06-10 15:43 | PN ---
Date/Time of Note Date/Time of Note DATE: 06/10/16 TIME: 15:41 Assessment/Plan VTE Prophylaxis VTE Prophylaxis Intervention: heparin Lines/Catheters IV [facility] Peripheral IV Urinary Cath still in place: No Assessment/Plan Chief Complaint/Hosp Course ASSESSMENT AND PLAN: 1. Bilateral lower extremity atherosclerosis with gangrene. The patient is followed by Dr. Valencia in vascular surgery consultation, planned for an angiogram today. Dr. Powell is following from cardiology standpoint. Dr. Bowen is following from infectious disease standpoint. 2. End-stage renal disease, status post renal transplant. Continue patient on prednisone and CellCept. Dr. Briscoe is following in nephrology consultation. 3. Hypertension. Continue benazepril, Lopressor and diltiazem. 4. 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 Continue Plavix. 5. Anemia of chronic kidney disease. Continue to monitor hemoglobin and hematocrit. 6. Severe peripheral arterial disease. Continue Plavix. Further recommendations based on clinical course. Plan of care discussed with Dr. Cohen. 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 Exam/Review of Systems Vital Signs Vitals Vital Signs Date Time Temp Pulse Resp B/P Pulse Ox O2 Delivery O2 Flow Rate FiO2 06/10/16 08:08 98.3 65 20 138/70 100 06/08/16 20:00 Room Air Intake and Output 06/09/16 06/09/16 06/10/16 15:00 23:00 07:00 Intake Total 2420 ml 1275 ml Output Total 1150 ml 800 ml Balance 1270 ml 475 ml Results Result Diagram: 06/10/16 0525 06/10/16 0525 Results 24 hrs Laboratory Tests Test 06/10/16 05:25 Activated Partial Thromboplast Time 27.5 Alanine Aminotransferase (ALT/SGPT) 43 Albumin 3.3 Albumin/Globulin Ratio 1.26 Alkaline Phosphatase 191 H Anion Gap 20 H Aspartate Amino Transf (AST/SGOT) 27 Basophils # 0.0 Basophils % 0.0 Blood Morphology Comment Blood Urea Nitrogen 18 Calcium Level 9.0 Carbon Dioxide Level 16 L Chloride Level 112 H Creatinine 0.78 Direct Bilirubin 0.00 Eosinophils # 0.1 Eosinophils % 1.2 Globulin 2.60 Glucose Level 80 Hematocrit 34.9 L Hemoglobin 11.2 L INR International Normalized Ratio 1.15 Indirect Bilirubin 0.1 Lymphocytes # 1.0 Lymphocytes % 19.1 Mean Corpuscular Hemoglobin 29.2 Mean Corpuscular Hemoglobin Concent 32.0 Mean Corpuscular Volume 91.4 Mean Platelet Volume 10.3 Monocytes # 0.5 Monocytes % 10.0 Neutrophils # 3.5 Neutrophils % 69.7 Nucleated Red Blood Cells # 0.1 H Nucleated Red Blood Cells % 2.0 H Platelet Count 177 Potassium Level 4.8 Prothrombin Time 14.7 H Prothrombin Time Ratio 1.1 Red Blood Count 3.82 L Red Cell Distribution Width 15.2 H Sodium Level 143 Total Bilirubin 0.1 L Total Protein 5.9 L White Blood Count 5.0 Medications Medications Current Medications Benazepril HCl (Lotensin) 10 mg DAILY PO Last administered on 06/10/16 08:56; Admin Dose 10 MG; Start 06/04/16 at 09:00 Cholecalciferol (Vitamin D) 1,000 unit DAILY PO Last administered on 06/10/16 08:56; Admin Dose 1,000 UNIT; Start 06/04/16 at 09:00 Clopidogrel Bisulfate (plaVIX) 75 mg DAILY PO Last administered on 06/10/16 08 :56; Admin Dose 75 MG; Start 06/04/16 at 09:00 Diltiazem HCl (Cardizem Cd) 180 mg DAILY PO Last administered on 06/10/16 08: 54; Admin Dose 180 MG; Start 06/04/16 at 09:00 Folic Acid (Folic Acid) 1 mg DAILY PO Last administered on 06/10/16 08:55; Admin Dose 1 MG; Start 06/04/16 at 09:00 Metoprolol Tartrate (Lopressor) 50 mg BID PO Last administered on 06/10/16 08: 55; Admin Dose 50 MG; Start 06/03/16 at 21:00 Mycophenolate Mofetil (Cellcept) 1,000 mg BID PO Last administered on 08:54; Admin Dose 1,000 MG; Start 06/03/16 at 21:00 Prednisone (Prednisone) 5 mg DAILY PO Last administered on 06/10/16 08:56; Admin Dose 5 MG; Start 06/04/16 at 09:00 Acetaminophen (Tylenol Tab) 650 mg Q4H PRN PO PAIN AND OR ELEVATED TEMP; Start 06/03/16 at 14:00 Acetaminophen/ Hydrocodone Bitart ([place] (5/325)) 1 tab Q4H PRN PO PAIN Last administered on 06/08/16 21:45; Admin Dose 1 TAB; Start 06/03/16 at 14:30 Morphine Sulfate (morphine) 2 mg Q4H PRN IV PAIN 7-10; Start 06/03/16 at 14:00 Acetylcysteine (Nac) 1,200 mg BID PO Last administered on 06/10/16 08:53; Admin Dose 1,200 MG; Start 06/03/16 at 21:00 Tacrolimus 0.5 mg 0.5 mg Q12 PO Last administered on 06/10/16 08:57; Admin Dose 0.5 MG; Start 06/03/16 at 21:00 Linezolid (Zyvox 600mg/D5W (Pmx)) 300 ml @ 300 mls/hr Q12 IVPB Last administered on 06/10/16 08:51; Admin Dose 300 MLS/HR; Start 06/03/16 at 21:00 Senna 1 tab 1 tab BID PO Last administered on 06/10/16 08:54; Admin Dose 1 TAB ; Start 06/03/16 at 21:00 Sodium Chloride (NS) 1,000 ml @ 75 mls/hr [id number] IV Last administered on 06/10 00:00; Admin Dose 75 MLS/HR; Start 06/09/16 at 10:00 LES GILLILAND Jun 10, 2016 15:43
[2016-06-10] MEDS ORDERED: SOD CHLORIDE 0.45% 1,000 ML IV SCH (17:25)
[2016-06-10] MEDS ORDERED: ONDANSETRON 4 MG INJ IV PRN (17:30)
--- NOTE | 2016-06-10 19:24 | OPR ---
DATE OF OPERATION: 06/10/2016 FLUOROSCOPY SINGH: Lion Barajas MD PREOPERATIVE DIAGNOSIS: Bilateral lower extremity gangrene. POSTOPERATIVE DIAGNOSIS: Bilateral lower extremity gangrene. ANESTHESIA: Local with moderate sedation. BLOOD LOSS: Minimal. COMPLICATIONS: None. HEPARIN: 6000 units of heparin. CONTRAST: As recorded. ACCESS: Bilateral common femoral artery 5-Romanian sheath. CLOSURE: Manual compression and Mynx closure device. INDICATIONS: This is a 61-year-old female who had presented with bilateral lower extremity tissue l oss and gangrene with diminished bilateral popliteal and pedal pulses. Preoperative diagnosis evalu ation was consistent with severe femoral, popliteal and severe tibial disease. The patient had been informed of the alternatives, risks and benefits of angiogram, balloon angioplasty, stenting and at herectomy; risks including but not limited to bleeding, thrombosis, embolization, myocardial infarct ion, , device malfunction, infection, nephrotoxicity and has agreed to proceed. The patient al so had preoperative hydration secondary to her kidney transplant, and we had Nephrology on board. F urther, patient had wanted to have significant amount of sedation for this procedure. Therefore, we had anesthesiologist involved with providing her adequate moderate sedation. PROCEDURE: 1. Ultrasound-guided access of antegrade right common femoral artery. 2. Ultrasound-guided access of antegrade left common femoral artery. 3. Right lower extremity angiogram. 4. Left lower extremity angiogram. 5. Right femoral and popliteal artery balloon angioplasty with [place] 5 mm x 200 cm balloon. 6. Left femoral popliteal artery balloon angioplasty with a [place] 5 mm x 220 cm balloon. 7. Left at-knee popliteal artery and below-knee popliteal artery with a [place] balloon 4 mm x 80 cm . 8. Left posterior tibial artery and tibioperoneal trunk artery balloon angioplasty with a [place] 2. 5 mm x 220 cm. FINDINGS: 1. Left common femoral artery with mild to moderate calcification. 2. Left superficial femoral artery with moderate to severe disease throughout with distal superfici al femoral artery stent restenosis. 3. Left profunda femoral artery with moderate to severe disease in its distal aspect after the seco nd perforating branch. 4. Left above-knee popliteal artery with moderate to severe disease with a stent that has restenosi s. 5. Left at-knee popliteal artery with moderate to severe disease. 6. Left below-knee popliteal artery with moderate disease. 7. Left peroneal artery that is occluded. 8. Left anterior tibial artery that is patent in its proximal aspect with severe stenosis in its or ifice and in its mid and distal aspect has severe disease and occludes at the ankle. 9. The left posterior tibial artery with moderate to severe disease with significant calcification and it's the only runoff to the foot into the common plantar artery. Left dorsalis pedis artery memo y small in caliber and seems to be continuous with the anterior tibial artery that seems to be occlu ding near the ankle with severe disease. 10. Left common plantar artery severely calcified with moderate to severe disease. 11. Left medial and plantar arteries are small in caliber and severely diseased. 12. Right common femoral artery patent with moderate disease. 13. Right profunda femoral artery with moderate disease in its proximal aspect and severe disease i n its distal portion after the second perforating branch. 14. Right superficial femoral artery with moderate to severe disease throughout its course. 15. Right above-knee popliteal artery with mild to moderate disease. 16. Right at-knee popliteal artery with mild to moderate disease. 17. Right below-knee popliteal artery with mild to moderate disease. 18. Right tibioperoneal trunk partially patent and then occludes at the junction of the peroneal an d posterior tibial artery. 19. Posterior tibial artery is occluded. 20. Right peroneal artery has severe disease throughout its course and occludes at the ankle. 21. Right anterior tibial artery is patent with mild disease and calcification throughout and has d irect flow into dorsalis pedis artery which is small in caliber. 22. Right common plantar artery not visualized. 23. Right medial and lateral plantar arteries are not visualized. DESCRIPTION OF PROCEDURE: The patient was brought to the angio suite and positioned in the supine p osition on the fluoroscopic table. Sedation was administered without complications. Bilateral groi ns were shaved and prepped and draped in the usual standard sterile fashion. A timeout and appropri ate sites were marked and confirmed. Local anesthesia was infiltrated in the region of the bilatera l common femoral arteries. The artery was cannulated with a micro access needle under ultrasound guidance, and a guidewire was advanced into the superficial femoral artery under fluoroscopic guidance. The needle was removed an d a microcatheter was placed. A CLARED wire was then passed into the superficial femoral artery un akabr fluoroscopic guidance followed by a short 5-Romanian sheath over the wire. Sheath was appropriate ly flushed with heparinized saline solution. At this point, this was repeated for bilateral groins. At this point, on the right lower extremity using an angled Glidewire and a Norton guiding catheter , we were able to place our wire in the below-knee popliteal artery. Once this was done, angiogram was performed and findings are noted above. At this point, a [place] 5 mm x 200 cm balloon was used , and balloon angioplasty was performed. Completion angiogram identified the patient had patent and adequate in-line flow from the common femoral artery to the below-knee popliteal artery. No areas of dissection were identified. In regard to the left lower extremity, using an angled Glidewire with a Norton guiding catheter, were able to cannulate the left posterior tibial artery. At this point, our Glidewire was exchanged to a 0.014 [place] wire. This was placed in the distal-most aspect of the posterior tibial artery. Once this was performed, we had performed angiogram with noted findings above. We went ahead and u sed a 2.5 mm balloon by 220 cm [place], and balloon angioplasty was performed of the posterior tibial artery and the tibioperoneal trunk. Following this, we went ahead and performed balloon angioplast y of the at-knee popliteal artery and below-knee popliteal artery with a [place] 4 mm x 80 cm balloon . We then concluded with performing a balloon angioplasty of femoral popliteal segment with a Sterl ing 5 mm x 220 cm balloon. Balloon angioplasty was performed, and a completion angiogram identified some areas of dissection near the calcification in the proximal aspect of the superficial femoral a rtery. At this point, the 5 mm balloon was then passed again to the femoral popliteal segment, and balloon angioplasty was performed in order to resolve the issue. During this time, we held the ball oon for about 3 minutes and repeated our angiogram, which identified resolution of the findings. At this point, using a Mynx closure device, we deployed the closure device in bilateral groins, and pr essure was held. All sheaths, catheters and wires were removed. The patient tolerated procedure we ll and was taken to the postanesthesia care unit in stable condition. PLAN: At this point, the patient will be continued on her aspirin and Plavix for dual antiplatelet therapy. Will discuss the findings with our podiatry colleagues as they can pursue with debridement and possible amputation of the lower extremity gangrene. Dictated By: WILD PRATHER/SIRISHA Conf#: [id number] DID#: [id number]
--- NOTE | 2016-06-10 22:16 | CONS ---
Date/Time of Note Date/Time of Note DATE: 06/10/16 TIME: 22:13 Assessment/Plan Assessment/Plan Additional Assessment/Plan 1. Left lower extremity gangrene s/p LE angiogram 2. Acute hyperkalemia- resolved 3. Status post donor kidney transplant in 2009 at [facility], currently on immunosuppression with Prograf, CellCept, prednisone. 4. History of previous end-stage renal disease on hemodialysis secondary to diabetic nephropathy. 5. History of hypertension. 6. History of diabetes mellitus. 7. History of previous left upper extremity arteriovenous fistula. PLAN: continue Current immunosuppression with cellcept, prograf and prednisone Right lower quadrant Renal allograft US - normal s/p LE angiogram- will continue mucomyst and 1/2 NS IVF will follow up this Follow up progress note took greater than 45 min to complete Consultation Date/Type/Reason Admit Date/Time Jun 03, 2016 at 11:09 Initial Consult Date May Type of Consultation: NEPHROLOGY Reason for Consultation Kidney transplant on immunosuppression, Plan for LE angiogram Referring Provider: WILD DUARTE MD 24 HR Interval Summary Free Text/Dictation S/p LE angiogram , on IVF Exam/Review of Systems Vital Signs Vitals Vital Signs Date Time Temp Pulse Resp B/P Pulse Ox O2 Delivery O2 Flow Rate FiO2 06/10/16 19:21 98.0 55 18 150/77 100 06/10/16 18:25 Room Air Intake and Output 06/09/16 06/09/16 06/10/16 15:00 23:00 07:00 Intake Total 2420 ml 1275 ml Output Total 1150 ml 800 ml Balance 1270 ml 475 ml Exam GENERAL: Awake, alert, in no distress. HEENT: Normal. Oropharynx clear. NECK: Supple, no JVD, no lymphadenopathy. LUNGS: Clear to auscultation. No crackles, no wheezes. HEART: S1, S2, with regular rhythm, no murmur. ABDOMEN: Soft, nontender, nondistended. Bowel sounds are present. EXTREMITIES: No clubbing, cyanosis, or edema. LLE gangrene Results Result Diagram: 06/10/16 0525 06/10/16 0525 Results 24 hrs Laboratory Tests Test 06/10/16 05:25 Activated Partial Thromboplast Time 27.5 Alanine Aminotransferase (ALT/SGPT) 43 Albumin 3.3 Albumin/Globulin Ratio 1.26 Alkaline Phosphatase 191 H Anion Gap 20 H Aspartate Amino Transf (AST/SGOT) 27 Basophils # 0.0 Basophils % 0.0 Blood Morphology Comment Blood Urea Nitrogen 18 Calcium Level 9.0 Carbon Dioxide Level 16 L Chloride Level 112 H Creatinine 0.78 Direct Bilirubin 0.00 Eosinophils # 0.1 Eosinophils % 1.2 Globulin 2.60 Glucose Level 80 Hematocrit 34.9 L Hemoglobin 11.2 L INR International Normalized Ratio 1.15 Indirect Bilirubin 0.1 Lymphocytes # 1.0 Lymphocytes % 19.1 Mean Corpuscular Hemoglobin 29.2 Mean Corpuscular Hemoglobin Concent 32.0 Mean Corpuscular Volume 91.4 Mean Platelet Volume 10.3 Monocytes # 0.5 Monocytes % 10.0 Neutrophils # 3.5 Neutrophils % 69.7 Nucleated Red Blood Cells # 0.1 H Nucleated Red Blood Cells % 2.0 H Platelet Count 177 Potassium Level 4.8 Prothrombin Time 14.7 H Prothrombin Time Ratio 1.1 Red Blood Count 3.82 L Red Cell Distribution Width 15.2 H Sodium Level 143 Total Bilirubin 0.1 L Total Protein 5.9 L White Blood Count 5.0 Medications Medications Current Medications Benazepril HCl (Lotensin) 10 mg DAILY PO Last administered on 06/10/16 08:56; Admin Dose 10 MG; Start 06/04/16 at 09:00 Cholecalciferol (Vitamin D) 1,000 unit DAILY PO Last administered on 06/10/16 08:56; Admin Dose 1,000 UNIT; Start 06/04/16 at 09:00 Clopidogrel Bisulfate (plaVIX) 75 mg DAILY PO Last administered on 06/10/16 08 :56; Admin Dose 75 MG; Start 06/04/16 at 09:00 Diltiazem HCl (Cardizem Cd) 180 mg DAILY PO Last administered on 06/10/16 08: 54; Admin Dose 180 MG; Start 06/04/16 at 09:00 Folic Acid (Folic Acid) 1 mg DAILY PO Last administered on 06/10/16 08:55; Admin Dose 1 MG; Start 06/04/16 at 09:00 Metoprolol Tartrate (Lopressor) 50 mg BID PO Last administered on 06/10/16 21: 29; Admin Dose 50 MG; Start 06/03/16 at 21:00 Mycophenolate Mofetil (Cellcept) 1,000 mg BID PO Last administered on 21:22; Admin Dose 1,000 MG; Start 06/03/16 at 21:00 Prednisone (Prednisone) 5 mg DAILY PO Last administered on 06/10/16 08:56; Admin Dose 5 MG; Start 06/04/16 at 09:00 Acetaminophen (Tylenol Tab) 650 mg Q4H PRN PO PAIN AND OR ELEVATED TEMP; Start 06/03/16 at 14:00 Acetaminophen/ Hydrocodone Bitart ([place] (5/325)) 1 tab Q4H PRN PO PAIN Last administered on 06/08/16 21:45; Admin Dose 1 TAB; Start 06/03/16 at 14:30 Morphine Sulfate (morphine) 2 mg Q4H PRN IV PAIN 7-10; Start 06/03/16 at 14:00 Acetylcysteine (Nac) 1,200 mg BID PO Last administered on 06/10/16 21:23; Admin Dose 1,200 MG; Start 06/03/16 at 21:00 Tacrolimus 0.5 mg 0.5 mg Q12 PO Last administered on 06/10/16 21:22; Admin Dose 0.5 MG; Start 06/03/16 at 21:00 Linezolid (Zyvox 600mg/D5W (Pmx)) 300 ml @ 300 mls/hr Q12 IVPB Last administered on 06/10/16 08:51; Admin Dose 300 MLS/HR; Start 06/03/16 at 21:00 Senna 1 tab 1 tab BID PO Last administered on 06/10/16 21:23; Admin Dose 1 TAB ; Start 06/03/16 at 21:00 Sodium Chloride (NS) 1,000 ml @ 75 mls/hr [id number] IV Last administered on 06/10 00:00; Admin Dose 75 MLS/HR; Start 06/09/16 at 10:00 Ondansetron HCl 4 mg 4 mg Q4H PRN IV NAUSEA AND/OR VOMITING; Start 06/10/16 at 17:30 Sodium Chloride (1/2 NS) 1,000 ml @ 75 mls/hr [id number] IV ; Start 06/10/16 at 17 :25; Stop 06/11/16 at 06:44 RAMON KEMP MD Jun 10, 2016 22:16
[2016-06-10] MEDS ORDERED: CLOPIDOGREL 75 MG TAB PO ONE (23:00)
[2016-06-11] MEDS: LINEZOLID 600 MG/D5W (PMX) 300 ML IVPB SCH ×3 (00:27→20:39)
[2016-06-11 07:36] VITALS: BP 169/80; RESP 20
[2016-06-11] MEDS ORDERED: CLOPIDOGREL 75 MG TAB PO SCH (09:00)
[2016-06-11 09:06] LABS: BASOPHILS % 0.1 % (0.0-2.0); EOSINOPHILS % 0.5 % (0.0-7.0); HEMATOCRIT 31.3 % (37.0-47.0); HEMOGLOBIN 10.2 g/dl (12.0-16.0); LYMPHOCYTES # 0.8 10^3/ul (0.8-2.9); LYMPHOCYTES % 10.8 % (15.0-51.0); MEAN CORPUSCULAR HEMOGLOBIN 29.5 pg (29.0-33.0); MEAN CORPUSCULAR HGB CONC 32.5 g/dl (32.0-37.0); MEAN CORPUSCULAR VOLUME 90.7 fl (82.0-101.0); MONOCYTE # 0.7 10^3/ul (0.3-0.9); MONOCYTES % 10.1 % (0.0-11.0); NEUTROPHIL # 5.4 10^3/ul (1.6-7.5); NEUTROPHILS % 78.5 % (39.0-77.0); PLATELET COUNT 156 10^3/UL (140-440); RED BLOOD COUNT 3.45 10^6/ul (4.20-5.40); RED CELL DISTRIBUTION WIDTH 14.8 % (11.5-14.5); UNCORRECTED WBC 6.9 10^3/ul (4.8-10.8); WHITE BLOOD COUNT 6.9 10^3/ul (4.8-10.8)
[2016-06-11 09:13] LABS: POTASSIUM 4.5 mmol/L (3.5-5.1)
[2016-06-11 09:15] LABS: CREATININE 0.81 mg/dl (0.44-1.00)
[2016-06-11 09:16] LABS: CALCIUM 8.9 mg/dl (8.4-10.2)
[2016-06-11 09:19] LABS: CONDITION 1; LH ANALYZER COMMENTS 1
[2016-06-11 10:00] VITALS: BP 130/75; PULSE 88; RESP 18
--- NOTE | 2016-06-11 10:32 | CONS ---
Date/Time of Note Date/Time of Note DATE: 06/11/16 TIME: 10:30 Assessment/Plan Assessment/Plan Additional Assessment/Plan 1. Left lower extremity gangrene s/p LE angiogram 2. Acute hyperkalemia- resolved 3. Status post donor kidney transplant in 2009 at [facility], currently on immunosuppression with Prograf, CellCept, prednisone. 4. History of previous end-stage renal disease on hemodialysis secondary to diabetic nephropathy. 5. History of hypertension. 6. History of diabetes mellitus. 7. History of previous left upper extremity arteriovenous fistula. PLAN: continue Current immunosuppression with cellcept, prograf and prednisone Right lower quadrant Renal allograft US - normal s/p LE angiogram- will continue mucomyst and 1/2 NS IVF - will monitor HCO3 and Cr, plan is to d/c IVF tomorrow will follow up Consultation Date/Type/Reason Admit Date/Time Jun 03, 2016 at 11:09 Initial Consult Date May Type of Consultation: NEPHROLOGY Reason for Consultation Kidney transplant on immunosuppression, S/p LE angiogram Referring Provider: WILD DUARTE MD Exam/Review of Systems Vital Signs Vitals Vital Signs Date Time Temp Pulse Resp B/P Pulse Ox O2 Delivery O2 Flow Rate FiO2 06/11/16 07:36 98.5 70 20 169/80 100 06/10/16 18:25 Room Air Intake and Output 06/10/16 06/10/16 06/11/16 15:00 23:00 07:00 Intake Total 925 ml 950 ml Output Total 1380 ml 1300 ml Balance -455 ml -350 ml Exam GENERAL: Awake, alert, in no distress. HEENT: Normal. Oropharynx clear. NECK: Supple, no JVD, no lymphadenopathy. LUNGS: Clear to auscultation. No crackles, no wheezes. HEART: S1, S2, with regular rhythm, no murmur. ABDOMEN: Soft, nontender, nondistended. Bowel sounds are present. EXTREMITIES: No clubbing, cyanosis, or edema. LLE gangrene Results Result Diagram: 06/11/1612 06/11/16811 Results 24 hrs Laboratory Tests Test 06/11/16 08:12 Anion Gap 17 H Basophils # 0.0 Basophils % 0.1 Blood Morphology Comment Blood Urea Nitrogen 14 Calcium Level 8.9 Carbon Dioxide Level 20 L Chloride Level 107 Creatinine 0.81 Eosinophils # 0.0 Eosinophils % 0.5 Glucose Level 93 Hematocrit 31.3 L Hemoglobin 10.2 L Lymphocytes # 0.8 Lymphocytes % 10.8 L Mean Corpuscular Hemoglobin 29.5 Mean Corpuscular Hemoglobin Concent 32.5 Mean Corpuscular Volume 90.7 Mean Platelet Volume 10.0 Monocytes # 0.7 Monocytes % 10.1 Neutrophils # 5.4 Neutrophils % 78.5 H Nucleated Red Blood Cells # 0.0 Nucleated Red Blood Cells % 0.0 Platelet Count 156 Potassium Level 4.5 Red Blood Count 3.45 L Red Cell Distribution Width 14.8 H Sodium Level 139 White Blood Count 6.9 # Medications Medications Current Medications Benazepril HCl (Lotensin) 10 mg DAILY PO Last administered on 06/10/16 08:56; Admin Dose 10 MG; Start 06/04/16 at 09:00 Cholecalciferol (Vitamin D) 1,000 unit DAILY PO Last administered on 06/10/16 08:56; Admin Dose 1,000 UNIT; Start 06/04/16 at 09:00 Clopidogrel Bisulfate (plaVIX) 75 mg DAILY PO Last administered on 06/10/16 08 :56; Admin Dose 75 MG; Start 06/04/16 at 09:00 Diltiazem HCl (Cardizem Cd) 180 mg DAILY PO Last administered on 06/10/16 08: 54; Admin Dose 180 MG; Start 06/04/16 at 09:00 Folic Acid (Folic Acid) 1 mg DAILY PO Last administered on 06/10/16 08:55; Admin Dose 1 MG; Start 06/04/16 at 09:00 Metoprolol Tartrate (Lopressor) 50 mg BID PO Last administered on 06/10/16 21: 29; Admin Dose 50 MG; Start 06/03/16 at 21:00 Mycophenolate Mofetil (Cellcept) 1,000 mg BID PO Last administered on 21:22; Admin Dose 1,000 MG; Start 06/03/16 at 21:00 Prednisone (Prednisone) 5 mg DAILY PO Last administered on 06/10/16 08:56; Admin Dose 5 MG; Start 06/04/16 at 09:00 Acetaminophen (Tylenol Tab) 650 mg Q4H PRN PO PAIN AND OR ELEVATED TEMP; Start 06/03/16 at 14:00 Acetaminophen/ Hydrocodone Bitart ([place] (5/325)) 1 tab Q4H PRN PO PAIN Last administered on 06/08/16 21:45; Admin Dose 1 TAB; Start 06/03/16 at 14:30 Morphine Sulfate (morphine) 2 mg Q4H PRN IV PAIN 7-10; Start 06/03/16 at 14:00 Acetylcysteine (Nac) 1,200 mg BID PO Last administered on 06/10/16 21:23; Admin Dose 1,200 MG; Start 06/03/16 at 21:00 Tacrolimus 0.5 mg 0.5 mg Q12 PO Last administered on 06/10/16 21:22; Admin Dose 0.5 MG; Start 06/03/16 at 21:00 Linezolid (Zyvox 600mg/D5W (Pmx)) 300 ml @ 300 mls/hr Q12 IVPB Last administered on 06/11/16 00:27; Admin Dose 300 MLS/HR; Start 06/03/16 at 21:00 Senna 1 tab 1 tab BID PO Last administered on 06/10/16 21:23; Admin Dose 1 TAB ; Start 06/03/16 at 21:00 Sodium Chloride (NS) 1,000 ml @ 75 mls/hr [id number] IV Last administered on 06/10 00:00; Admin Dose 75 MLS/HR; Start 06/09/16 at 10:00 Ondansetron HCl (Zofran Inj) 4 mg Q4H PRN IV NAUSEA AND/OR VOMITING; Start at 17:30 RAMON KEMP MD Jun 11, 2016 10:32
[2016-06-11] MEDS: morphine 2 MG INJ IV PRN ×2 (10:44→14:57)
[2016-06-11] MEDS: FOLIC ACID 1 MG TAB PO SCH (10:45)
[2016-06-11] MEDS: CHOLECALCIFEROL 1,000 UNIT TAB PO SCH (10:45)
[2016-06-11] MEDS: CLOPIDOGREL 75 MG TAB PO SCH (10:45)
[2016-06-11] MEDS: predniSONE 5 MG TAB PO SCH (10:45)
[2016-06-11] MEDS: ACETYLCYSTEINE 600 MG CAP PO SCH ×2 (10:45→20:41)
[2016-06-11] MEDS: TACROLIMUS 0.5 MG CAP PO SCH ×2 (10:45→20:42)
[2016-06-11] MEDS: SENNA TAB PO SCH ×2 (10:45→20:41)
[2016-06-11] MEDS: MYCOPHENOLATE 250 MG CAP PO SCH ×2 (10:46→20:40)
[2016-06-11] MEDS: BENAZEPRIL 20 MG TAB PO SCH (10:46)
[2016-06-11] MEDS: METOPROLOL 50 MG TAB PO SCH ×2 (10:47→20:40)
[2016-06-11] MEDS: DILTIAZEM (CD) 180 MG CAP PO SCH (10:47)
--- NOTE | 2016-06-11 12:46 | PN ---
DATE: 06/11/2016 SUBJECTIVE: No events overnight. The patient is sitting comfortably in bed. Denies pain at the ti me. No fevers. WBC 6.9, neutrophils 78.5. BUN 14, creatinine 0.81. ANTIMICROBIALS: The patient remains on Zyvox. PHYSICAL EXAMINATION: GENERAL: Well-developed, fragile, elderly woman who is alert, in no distress. HEENT: Head atraumatic, normocephalic. Sclerae anicteric. Buccal mucosa pink. NECK: Supple, trachea midline. CHEST: Rise symmetrical. Breath sounds clear. HEART: S1, S2. ABDOMEN: Soft. Bowel tones present. EXTREMITIES: With bilateral lower extremity gangrenous changes. ASSESSMENT: 1. Bilateral lower extremities gangrene. 2. Severe peripheral vascular disease status post angiogram with angioplasty. 3. History of kidney transplant, on Prograf, CellCept and prednisone. PLAN: The patient remains stable post-procedure. Continue present care, antibiotics. Follow [facility] ular recommendations. Dictated By: JACQUES HUERTA HEEL ATTACHER for TRISTAN RIOS/SIRISHA Conf#: [id number] DID#: [id number]
--- NOTE | 2016-06-11 14:16 | CONS ---
Date/Time of Note Date/Time of Note DATE: 06/11/16 TIME: 14:14 Assessment/Plan Assessment/Plan Chief Complaint/Hosp Course IMPRESSION: 1. Preoperative evaluation prior to intervention on lower extremities for gangrenous changes of the toe. 2. Abnormal electrocardiogram, assess for acute coronary syndrome.-negative troponin x 3/Echo 06/05 EF 60-65/mod-sev TR. No cardiac contraindication to proceeding to OR on current medications at moderate risk 3. Hypertension, mildly elevated. 4. Status post renal transplant. 5. Peripheral arterial disease with lower extremity gangrenous changes and nonhealing wound s/p peripheral angio/MAP CLERK 06/10/16 6. Anemia, mild. 7.TR-mod-sev by echo 8. s/p renal transplant Recc: -Continue plavix -Continue Dilt/metoprolol with slight increase to ACEI to improve BP control -Local wound care -Continue steroids/immunosuppresives Problems: Consultation Date/Type/Reason Admit Date/Time Jun 03, 2016 at 11:09 Initial Consult Date 06/03/16 Type of Consultation: Cardiology Reason for Consultation pre-op/HTN Referring Provider: WILD DUARTE MD Exam/Review of Systems Vital Signs Vitals Vital Signs Date Time Temp Pulse Resp B/P Pulse Ox O2 Delivery O2 Flow Rate FiO2 06/11/16 07:36 98.5 70 20 169/80 100 06/10/16 18:25 Room Air Intake and Output 06/10/16 06/10/16 06/11/16 15:00 23:00 07:00 Intake Total 925 ml 950 ml Output Total 1380 ml 1300 ml Balance -455 ml -350 ml Exam Review of Systems: CONSTITUTIONAL: No fevers, chills. PULMONARY: No sob CARDIOVASCULAR: No chest pain/palpitations GASTROINTESTINAL: No nausea/vomiting. GENITOURINARY: No hematuria/dysuria. MUSCULOSKELETAL: Mild pain in foot PSYCHIATRIC: The patient denies depression. NEUROLOGIC: No weakness Constitutional: alert, oriented Psych: no complaints Head: normocephalic ENMT: mucosa pink and moist Neck: jvd (8-9 cm water), supple Respiratory: diminished breath sounds (at bases/B) Cardiovascular: regular rate and rhythm Gastrointestinal: non-tender, soft Musculoskeletal: muscle tone (normal) Extremities: edema (none), other (gangrenous changes of foot) Neurological: other (No focal deficits) Results Result Diagram: 06/11/16 0812 06/11/16 0812 Results 24 hrs Laboratory Tests Test 06/11/16 08:12 Anion Gap 17 H Basophils # 0.0 Basophils % 0.1 Blood Morphology Comment Blood Urea Nitrogen 14 Calcium Level 8.9 Carbon Dioxide Level 20 L Chloride Level 107 Creatinine 0.81 Eosinophils # 0.0 Eosinophils % 0.5 Glucose Level 93 Hematocrit 31.3 L Hemoglobin 10.2 L Lymphocytes # 0.8 Lymphocytes % 10.8 L Mean Corpuscular Hemoglobin 29.5 Mean Corpuscular Hemoglobin Concent 32.5 Mean Corpuscular Volume 90.7 Mean Platelet Volume 10.0 Monocytes # 0.7 Monocytes % 10.1 Neutrophils # 5.4 Neutrophils % 78.5 H Nucleated Red Blood Cells # 0.0 Nucleated Red Blood Cells % 0.0 Platelet Count 156 Potassium Level 4.5 Red Blood Count 3.45 L Red Cell Distribution Width 14.8 H Sodium Level 139 White Blood Count 6.9 # Medications Medications Current Medications Benazepril HCl (Lotensin) 10 mg DAILY PO Last administered on 06/11/16 10:46; Admin Dose 10 MG; Start 06/04/16 at 09:00 Cholecalciferol (Vitamin D) 1,000 unit DAILY PO Last administered on 06/11/16 10:45; Admin Dose 1,000 UNIT; Start 06/04/16 at 09:00 Clopidogrel Bisulfate (plaVIX) 75 mg DAILY PO Last administered on 06/11/16 10 :45; Admin Dose 75 MG; Start 06/04/16 at 09:00 Diltiazem HCl (Cardizem Cd) 180 mg DAILY PO Last administered on 06/11/16 10: 47; Admin Dose 180 MG; Start 06/04/16 at 09:00 Folic Acid (Folic Acid) 1 mg DAILY PO Last administered on 06/11/16 10:45; Admin Dose 1 MG; Start 06/04/16 at 09:00 Metoprolol Tartrate (Lopressor) 50 mg BID PO Last administered on 06/11/16 10: 47; Admin Dose 50 MG; Start 06/03/16 at 21:00 Mycophenolate Mofetil (Cellcept) 1,000 mg BID PO Last administered on 10:46; Admin Dose 1,000 MG; Start 06/03/16 at 21:00 Prednisone (Prednisone) 5 mg DAILY PO Last administered on 06/11/16 10:45; Admin Dose 5 MG; Start 06/04/16 at 09:00 Acetaminophen (Tylenol Tab) 650 mg Q4H PRN PO PAIN AND OR ELEVATED TEMP; Start 06/03/16 at 14:00 Acetaminophen/ Hydrocodone Bitart ([place] (5/325)) 1 tab Q4H PRN PO PAIN Last administered on 06/08/16 21:45; Admin Dose 1 TAB; Start 06/03/16 at 14:30 Morphine Sulfate (morphine) 2 mg Q4H PRN IV PAIN 7-10 Last administered on 06/11 10:44; Admin Dose 2 MG; Start 06/03/16 at 14:00 Acetylcysteine (Nac) 1,200 mg BID PO Last administered on 06/11/16 10:45; Admin Dose 1,200 MG; Start 06/03/16 at 21:00 Tacrolimus 0.5 mg 0.5 mg Q12 PO Last administered on 06/11/16 10:45; Admin Dose 0.5 MG; Start 06/03/16 at 21:00 Linezolid (Zyvox 600mg/D5W (Pmx)) 300 ml @ 300 mls/hr Q12 IVPB Last administered on 06/11/16 10:53; Admin Dose 300 MLS/HR; Start 06/03/16 at 21:00 Senna 1 tab 1 tab BID PO Last administered on 06/11/16 10:45; Admin Dose 1 TAB ; Start 06/03/16 at 21:00 Sodium Chloride (NS) 1,000 ml @ 75 mls/hr [id number] IV Last administered on 06/10 00:00; Admin Dose 75 MLS/HR; Start 06/09/16 at 10:00 Ondansetron HCl (Zofran Inj) 4 mg Q4H PRN IV NAUSEA AND/OR VOMITING; Start at 17:30 TIMOTHY CORTES Jun 11, 2016 14:16
[2016-06-11] MEDS: SOD CHLORIDE 0.9% 1,000 ML IV SCH ×2 (14:53→15:20)
--- NOTE | 2016-06-11 18:24 | CONS ---
Date/Time of Note Date/Time of Note DATE: 06/11/16 TIME: 18:16 Assessment/Plan Assessment/Plan Problems: (1) Toe gangrene (2) Peripheral vascular disease Additional Assessment/Plan I discussed and counseled patient extensively regarding her condition. Her left fifth toe gangrene is extensive and involves over 80% of the toe. This toe must be amputated. The fourth toe on the left foot may have potential for salvage and I will debride that in the operating room. The right fifth toe also has good potential with debridement. Patient will be scheduled for surgery. Patient is amenable to surgery. I discussed the case and plan with Dr. Duarte and he agrees. Consultation Date/Type/Reason Admit Date/Time Jun 03, 2016 at 11:09 Date of Consultation: Jun 11, 2016 Type of Consultation: Foot and ankle surgery Reason for Consultation Gangrene of left fourth and fifth toes. Gangrene of right fifth toe. Referring Provider: WILD DUARTE MD Hx of Present Illness Thank you very much for involving me in the care of this patient. As you very well know this is a 61-year-old significant for end-stage renal disease, status post renal transplant in 2009, history of hypertension, history of bilateral upper extremity pyoderma gangrenosum gangrenosum, history of lower extremity DVT who has recently undergone bilateral arterial ultrasound and lower extremity surgical intervention by Dr. Duarte. I was consulted to evaluate left fourth and fifth gangrene and right fifth toe gangrene. Patient reports no pain today. Denies fever, chills, nausea or vomiting. Psychological: no complaints Social History Smoking Status: Never smoker Exam/Review of Systems Vital Signs Vitals Vital Signs Date Time Temp Pulse Resp B/P Pulse Ox O2 Delivery O2 Flow Rate FiO2 06/11/16 07:36 98.5 70 20 169/80 100 06/10/16 18:25 Room Air Intake and Output 06/10/16 06/10/16 06/11/16 15:00 23:00 07:00 Intake Total 925 ml 950 ml Output Total 1380 ml 1300 ml Balance -455 ml -350 ml Exam Patient is in no acute distress. Left fifth toe gangrene is noted which is over 80% of the toe, well demarcated with no sign of infection. Left fourth toe dorsal gangrene noted which is about 10-15% of the toe. Right fifth toe dorsal gangrene noted which is about 10% of the toe. There is no edema of the feet and no erythema surrounding the toes. Palpable pulses noted. Decreased sensation to sharp, dull, vibratory and temperature stimuli noted. Labs and x- rays are reviewed. Results Result Diagram: 06/11/16 0812 06/11/16 0812 Results 24 hrs Laboratory Tests Test 06/11/16 08:12 Anion Gap 17 H Basophils # 0.0 Basophils % 0.1 Blood Morphology Comment Blood Urea Nitrogen 14 Calcium Level 8.9 Carbon Dioxide Level 20 L Chloride Level 107 Creatinine 0.81 Eosinophils # 0.0 Eosinophils % 0.5 Glucose Level 93 Hematocrit 31.3 L Hemoglobin 10.2 L Lymphocytes # 0.8 Lymphocytes % 10.8 L Mean Corpuscular Hemoglobin 29.5 Mean Corpuscular Hemoglobin Concent 32.5 Mean Corpuscular Volume 90.7 Mean Platelet Volume 10.0 Monocytes # 0.7 Monocytes % 10.1 Neutrophils # 5.4 Neutrophils % 78.5 H Nucleated Red Blood Cells # 0.0 Nucleated Red Blood Cells % 0.0 Platelet Count 156 Potassium Level 4.5 Red Blood Count 3.45 L Red Cell Distribution Width 14.8 H Sodium Level 139 White Blood Count 6.9 # Medications Medications Current Medications Cholecalciferol (Vitamin D) 1,000 unit DAILY PO Last administered on 06/11/16 10:45; Admin Dose 1,000 UNIT; Start 06/04/16 at 09:00 Clopidogrel Bisulfate (plaVIX) 75 mg DAILY PO Last administered on 06/11/16 10 :45; Admin Dose 75 MG; Start 06/04/16 at 09:00 Diltiazem HCl (Cardizem Cd) 180 mg DAILY PO Last administered on 06/11/16 10: 47; Admin Dose 180 MG; Start 06/04/16 at 09:00 Folic Acid (Folic Acid) 1 mg DAILY PO Last administered on 06/11/16 10:45; Admin Dose 1 MG; Start 06/04/16 at 09:00 Metoprolol Tartrate (Lopressor) 50 mg BID PO Last administered on 06/11/16 10: 47; Admin Dose 50 MG; Start 06/03/16 at 21:00 Mycophenolate Mofetil (Cellcept) 1,000 mg BID PO Last administered on 10:46; Admin Dose 1,000 MG; Start 06/03/16 at 21:00 Prednisone (Prednisone) 5 mg DAILY PO Last administered on 06/11/16 10:45; Admin Dose 5 MG; Start 06/04/16 at 09:00 Acetaminophen (Tylenol Tab) 650 mg Q4H PRN PO PAIN AND OR ELEVATED TEMP; Start 06/03/16 at 14:00 Acetaminophen/ Hydrocodone Bitart ([place] (5/325)) 1 tab Q4H PRN PO PAIN Last administered on 06/08/16 21:45; Admin Dose 1 TAB; Start 06/03/16 at 14:30 Morphine Sulfate (morphine) 2 mg Q4H PRN IV PAIN 7-10 Last administered on 06/11 14:57; Admin Dose 2 MG; Start 06/03/16 at 14:00 Acetylcysteine (Nac) 1,200 mg BID PO Last administered on 06/11/16 10:45; Admin Dose 1,200 MG; Start 06/03/16 at 21:00 Tacrolimus 0.5 mg 0.5 mg Q12 PO Last administered on 06/11/16 10:45; Admin Dose 0.5 MG; Start 06/03/16 at 21:00 Linezolid (Zyvox 600mg/D5W (Pmx)) 300 ml @ 300 mls/hr Q12 IVPB Last administered on 06/11/16 10:53; Admin Dose 300 MLS/HR; Start 06/03/16 at 21:00 Senna 1 tab 1 tab BID PO Last administered on 06/11/16 10:45; Admin Dose 1 TAB ; Start 06/03/16 at 21:00 Sodium Chloride (NS) 1,000 ml @ 75 mls/hr [id number] IV Last administered on 06/11 14:53; Admin Dose 75 MLS/HR; Start 06/09/16 at 10:00 Ondansetron HCl (Zofran Inj) 4 mg Q4H PRN IV NAUSEA AND/OR VOMITING Last administered on 06/11/16 16:54; Admin Dose 4 MG; Start 06/10/16 at 17:30 Benazepril HCl (Lotensin) 10 mg BID PO ; Start 06/11/16 at 21:00 PHILLIP EMANUEL DPM Jun 11, 2016 18:24
--- NOTE | 2016-06-11 18:56 | PN ---
Date/Time of Note Date/Time of Note DATE: 06/11/16 TIME: 18:51 Assessment/Plan VTE Prophylaxis VTE Prophylaxis Intervention: SCD's Lines/Catheters IV Catheter Type (from [facility]): Peripheral IV Urinary Cath still in place: No Assessment/Plan Chief Complaint/Hosp Course ASSESSMENT AND PLAN: 1. Bilateral lower extremity atherosclerosis with gangrene. The patient is followed by Dr. Valencia in vascular surgery consultation. S/p bilateral lower extremity angiogram with angioplasty of multiple arteries on . Dr. Bowen is following from infectious disease standpoint. Patient spell followed by Dr. Martin in podiatry consultation. Plan for right fifth toe amputation and debridement of the left fourth and fifth toe. 2. End-stage renal disease, status post renal transplant. Continue patient on prednisone and CellCept. Dr. Briscoe is following in nephrology consultation. Continue to monitor patient creatinine. IV hydration per nephrology. 3. Hypertension. Continue benazepril, Lopressor and diltiazem. Dr. Powell is following from cardiology standpoint. 4. 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 Continue Plavix. 5. Anemia of chronic kidney disease. Continue to monitor hemoglobin and hematocrit. 6. Severe peripheral arterial disease. Continue Plavix. Further recommendations based on clinical course. Plan of care discussed with Dr. Cohen. Problems: Subjective 24 Hr Interval Summary Free Text/Dictation Patient's complains of abdominal pain, and nausea , denies vomiting. Exam/Review of Systems Vital Signs Vitals Vital Signs Date Time Temp Pulse Resp B/P Pulse Ox O2 Delivery O2 Flow Rate FiO2 06/11/16 07:36 98.5 70 20 169/80 100 06/10/16 18:25 Room Air Intake and Output 06/10/16 06/10/16 06/11/16 14:59 22:59 06:59 Intake Total 925 ml 950 ml Output Total 1380 ml 1300 ml Balance -455 ml -350 ml Exam PHYSICAL ASSESSMENT: GENERAL: A well-developed, well-nourished female in no acute distress. HEENT: Head is atraumatic, normocephalic. Pupils equal, round, reactive to light and accommodation. Oral mucosa is pink, moist. NECK: Supple. No cervical lymphadenopathy, no thyromegaly. CHEST: Lungs clear bilaterally. There are no rhonchi, wheezes, rales noted. CARDIOVASCULAR: Normal S1, S2. The patient has systolic murmur III/. ABDOMEN: Round, soft, nondistended, nontender. Bowel sounds present. There is no guarding or rebound tenderness. EXTREMITIES: The patient has right 5th toe gangrene and left 5th and 4th toe gangrene, and patient has multiple discolorations over bilateral thighs. SKIN: There is no rash, petechiae. NEUROLOGIC: The patient is awake, alert and oriented x4. Results Result Diagram: 06/11/16 0812 06/11/16 0812 Results 24 hrs Laboratory Tests Test 06/11/16 08:12 Anion Gap 17 H Basophils # 0.0 Basophils % 0.1 Blood Morphology Comment Blood Urea Nitrogen 14 Calcium Level 8.9 Carbon Dioxide Level 20 L Chloride Level 107 Creatinine 0.81 Eosinophils # 0.0 Eosinophils % 0.5 Glucose Level 93 Hematocrit 31.3 L Hemoglobin 10.2 L Lymphocytes # 0.8 Lymphocytes % 10.8 L Mean Corpuscular Hemoglobin 29.5 Mean Corpuscular Hemoglobin Concent 32.5 Mean Corpuscular Volume 90.7 Mean Platelet Volume 10.0 Monocytes # 0.7 Monocytes % 10.1 Neutrophils # 5.4 Neutrophils % 78.5 H Nucleated Red Blood Cells # 0.0 Nucleated Red Blood Cells % 0.0 Platelet Count 156 Potassium Level 4.5 Red Blood Count 3.45 L Red Cell Distribution Width 14.8 H Sodium Level 139 White Blood Count 6.9 # Medications Medications Current Medications Cholecalciferol (Vitamin D) 1,000 unit DAILY PO Last administered on 06/11/16 10:45; Admin Dose 1,000 UNIT; Start 06/04/16 at 09:00 Clopidogrel Bisulfate (plaVIX) 75 mg DAILY PO Last administered on 06/11/16 10 :45; Admin Dose 75 MG; Start 06/04/16 at 09:00 Diltiazem HCl (Cardizem Cd) 180 mg DAILY PO Last administered on 06/11/16 10: 47; Admin Dose 180 MG; Start 06/04/16 at 09:00 Folic Acid (Folic Acid) 1 mg DAILY PO Last administered on 06/11/16 10:45; Admin Dose 1 MG; Start 06/04/16 at 09:00 Metoprolol Tartrate (Lopressor) 50 mg BID PO Last administered on 06/11/16 10: 47; Admin Dose 50 MG; Start 06/03/16 at 21:00 Mycophenolate Mofetil (Cellcept) 1,000 mg BID PO Last administered on 10:46; Admin Dose 1,000 MG; Start 06/03/16 at 21:00 Prednisone (Prednisone) 5 mg DAILY PO Last administered on 06/11/16 10:45; Admin Dose 5 MG; Start 06/04/16 at 09:00 Acetaminophen (Tylenol Tab) 650 mg Q4H PRN PO PAIN AND OR ELEVATED TEMP; Start 06/03/16 at 14:00 Acetaminophen/ Hydrocodone Bitart ([place] (5/325)) 1 tab Q4H PRN PO PAIN Last administered on 06/08/16 21:45; Admin Dose 1 TAB; Start 06/03/16 at 14:30 Morphine Sulfate (morphine) 2 mg Q4H PRN IV PAIN 7-10 Last administered on 06/11 14:57; Admin Dose 2 MG; Start 06/03/16 at 14:00 Acetylcysteine (Nac) 1,200 mg BID PO Last administered on 06/11/16 10:45; Admin Dose 1,200 MG; Start 06/03/16 at 21:00 Tacrolimus 0.5 mg 0.5 mg Q12 PO Last administered on 06/11/16 10:45; Admin Dose 0.5 MG; Start 06/03/16 at 21:00 Linezolid (Zyvox 600mg/D5W (Pmx)) 300 ml @ 300 mls/hr Q12 IVPB Last administered on 06/11/16 10:53; Admin Dose 300 MLS/HR; Start 06/03/16 at 21:00 Senna 1 tab 1 tab BID PO Last administered on 06/11/16 10:45; Admin Dose 1 TAB ; Start 06/03/16 at 21:00 Sodium Chloride (NS) 1,000 ml @ 75 mls/hr [id number] IV Last administered on 06/11 14:53; Admin Dose 75 MLS/HR; Start 06/09/16 at 10:00 Ondansetron HCl (Zofran Inj) 4 mg Q4H PRN IV NAUSEA AND/OR VOMITING Last administered on 2/21/17at 16:54; Admin Dose 4 MG; Start 06/10/16 at 17:30 Benazepril HCl (Lotensin) 10 mg BID PO ; Start 06/11/16 at 21:00 LES GILLILAND Jun 11, 2016 18:55
[2016-06-11 20:13] VITALS: BP 105/58; RESP 18
[2016-06-11] MEDS: BENAZEPRIL 10 MG TAB PO SCH (20:41)
--- NOTE | 2016-06-11 23:07 | PN ---
Date/Time of Note Date/Time of Note DATE: 06/11/16 TIME: 23:07 Assessment/Plan Lines/Catheters IV Catheter Type (from [facility]): Peripheral IV [place] in Place (from [facility]): No Assessment/Plan Chief Complaint/Hosp Course -Bilateral lower extremity atherosclerosis with gangrene: S/P Bilateral LE interventions -Her gangrene has worsened and requires antibiotics as there's erythema of bilateral feet. -Would recommend for patient to undergo debridement possible amputation as soon as possible as perfusion has improved to expedite wound healing -Appreciate nephrology evaluation and hydration -Discussed vascular optimization (BP meds, diet, nutrition, exercise, sugar control, antiplatelets). -Thank you for allowing us to partake in the care of your patient. Please call with any questions. Problems: Subjective 24 Hr Interval Summary Constitutional: no complaints Exam/Review of Systems Vital Signs Vitals Vital Signs Date Time Temp Pulse Resp B/P Pulse Ox O2 Delivery O2 Flow Rate FiO2 06/12/16 20:13 98.4 71 17 131/63 100 06/11/16 10:00 Room Air Intake and Output 06/11/16 06/11/16 06/12/16 15:00 23:00 07:00 Intake Total 300 ml 2515 ml 975 ml Output Total 3400 ml Balance 300 ml -885 ml 975 ml Exam Free Text/Dictation GENERAL: Alert and oriented x3. LUNGS: Clear to auscultation bilaterally. HEART: S1, S2 present. ABDOMEN: Soft, nontender, nondistended. Bowel sounds positive. EXTREMITIES: Right lower extremity palpable femoral pulse, nonpalpable pedal pulse. Motor, sensory intact. Cap refill 3 to 4 seconds. fifth toe with gangrene on the lateral aspect of the toe with demarcation with erythema and some dependent rubor on the dorsal aspect of the foot improving. Healed ulcers on her thigh and calf. Left lower extremity palpable femoral pulse, nonpalpable pedal pulse. Motor and sensory intact. Cap refill 3 to 4 seconds. She has circumferential gangrene of her 5th toe which is dry and she has her right 4th toe which has partial gangrene with demarcation with erythema, the gangrene on her 5th toe has expanded slightly further intermetatarsal region which is concerning Results Result Diagram: 06/12/1615 06/12/16514 WILD DUARTE MD Jun 11, 2016 23:07
[2016-06-12] MEDS: SOD CHLORIDE 0.9% 1,000 ML IV SCH ×3 (02:01→19:36)
[2016-06-12 06:04] LABS: ALBUMIN 2.8 g/dl (3.3-4.9); INR 1.27; POTASSIUM 4.1 mmol/L (3.5-5.1); PT RATIO 1.3
[2016-06-12 06:05] LABS: PARTIAL THROMBOPLASTIN TIME 30.4 Sec (25.0-35.0)
[2016-06-12 06:07] LABS: ALBUMIN/GLOBULIN RATIO 1.21; BILIRUBIN,INDIRECT 0.3 mg/dl (0-1.1); BILIRUBIN,TOTAL 0.3 mg/dl (0.2-1.3); CREATININE 1.04 mg/dl (0.44-1.00); TOTAL PROTEIN 5.1 g/dl (6.1-8.1)
[2016-06-12 06:08] LABS: CALCIUM 8.1 mg/dl (8.4-10.2)
[2016-06-12 07:28] VITALS: BP 93/55; RESP 12
[2016-06-12] MEDS: ACETYLCYSTEINE 600 MG CAP PO SCH (08:27)
[2016-06-12] MEDS: LINEZOLID 600 MG/D5W (PMX) 300 ML IVPB SCH ×2 (08:27→20:24)
[2016-06-12] MEDS: MYCOPHENOLATE 250 MG CAP PO SCH ×2 (08:27→20:25)
[2016-06-12] MEDS: TACROLIMUS 0.5 MG CAP PO SCH ×2 (08:28→20:24)
[2016-06-12] MEDS: FOLIC ACID 1 MG TAB PO SCH (08:28)
[2016-06-12] MEDS: CLOPIDOGREL 75 MG TAB PO SCH (08:28)
[2016-06-12] MEDS: CHOLECALCIFEROL 1,000 UNIT TAB PO SCH (08:29)
[2016-06-12] MEDS: predniSONE 5 MG TAB PO SCH (08:29)
[2016-06-12] MEDS: SENNA TAB PO SCH ×2 (08:29→20:25)
[2016-06-12] MEDS: METOPROLOL 50 MG TAB PO SCH (08:30)
[2016-06-12] MEDS: BENAZEPRIL 10 MG TAB PO SCH ×2 (08:30→20:27)
[2016-06-12] MEDS: DILTIAZEM (CD) 180 MG CAP PO SCH (08:30)
[2016-06-12 08:57] LABS: BASOPHILS % 0.1 % (0.0-2.0); EOSINOPHILS % 0.4 % (0.0-7.0); HEMATOCRIT 28.7 % (37.0-47.0); HEMOGLOBIN 9.4 g/dl (12.0-16.0); LYMPHOCYTES # 0.9 10^3/ul (0.8-2.9); LYMPHOCYTES % 14.1 % (15.0-51.0); MEAN CORPUSCULAR HEMOGLOBIN 29.8 pg (29.0-33.0); MEAN CORPUSCULAR HGB CONC 32.7 g/dl (32.0-37.0); MEAN CORPUSCULAR VOLUME 91.1 fl (82.0-101.0); MEAN PLATELET VOLUME 10.3 fl (7.4-10.4); MONOCYTE # 0.8 10^3/ul (0.3-0.9); MONOCYTES % 12.3 % (0.0-11.0); NEUTROPHIL # 4.8 10^3/ul (1.6-7.5); NEUTROPHILS % 73.1 % (39.0-77.0); PLATELET COUNT 122 10^3/UL (140-440); RED BLOOD COUNT 3.15 10^6/ul (4.20-5.40); RED CELL DISTRIBUTION WIDTH 14.7 % (11.5-14.5); UNCORRECTED WBC 6.6 10^3/ul (4.8-10.8); WHITE BLOOD COUNT 6.6 10^3/ul (4.8-10.8)
[2016-06-12 09:04] LABS: CONDITION 1; LH ANALYZER COMMENTS 1
--- NOTE | 2016-06-12 10:29 | CONS ---
Date/Time of Note Date/Time of Note DATE: 06/12/16 TIME: 10:25 Assessment/Plan Assessment/Plan Additional Assessment/Plan 1. Left lower extremity gangrene s/p LE angiogram 2. Acute hyperkalemia- resolved 3. Acute kidney injury post angiogram due to contrast exposure with prerenal azotemia 3. Status post donor kidney transplant in 2009 at [facility], currently on immunosuppression with Prograf, CellCept, prednisone. 4. History of previous end-stage renal disease on hemodialysis secondary to diabetic nephropathy. 5. History of hypertension. 6. History of diabetes mellitus. 7. History of previous left upper extremity arteriovenous fistula. PLAN: Cr bumped today, pt making good urine, still acidotic , K normal - will start bicitra, d/c IVF now continue Current immunosuppression with cellcept, prograf and prednisone Right lower quadrant Renal allograft US - normal s/p LE angiogram- need Foot surgery ,seen by podiatry, awaiting plan for surgery will follow up Consultation Date/Type/Reason Admit Date/Time Jun 03, 2016 at 11:09 Initial Consult Date May Type of Consultation: NEPHROLOGY Reason for Consultation Kidney transplant on immunosuppression, TOMEKA after angiogram Referring Provider: WILD DUARTE MD 24 HR Interval Summary Free Text/Dictation Cr bumped today, pt making good urine, still acidotic , K normal Exam/Review of Systems Vital Signs Vitals Vital Signs Date Time Temp Pulse Resp B/P Pulse Ox O2 Delivery O2 Flow Rate FiO2 06/12/16 07:28 99.1 54 12 93/55 98 06/11/16 10:00 Room Air Intake and Output 06/11/16 06/11/16 06/12/16 15:00 23:00 07:00 Intake Total 300 ml 2515 ml 975 ml Output Total 3400 ml Balance 300 ml -885 ml 975 ml Exam GENERAL: Awake, alert, in no distress. HEENT: Normal. Oropharynx clear. NECK: Supple, no JVD, no lymphadenopathy. LUNGS: Clear to auscultation. No crackles, no wheezes. HEART: S1, S2, with regular rhythm, no murmur. ABDOMEN: Soft, nontender, nondistended. Bowel sounds are present. EXTREMITIES: No clubbing, cyanosis, or edema. LLE gangrene Results Result Diagram: 06/12/16 0515 06/12/16 0515 Results 24 hrs Laboratory Tests Test 06/12/16 05:15 Activated Partial Thromboplast Time 30.4 Alanine Aminotransferase (ALT/SGPT) 32 Albumin 2.8 L Albumin/Globulin Ratio 1.21 Alkaline Phosphatase 162 H Anion Gap 17 H Aspartate Amino Transf (AST/SGOT) 13 L Basophils # 0.0 Basophils % 0.1 Blood Morphology Comment Blood Urea Nitrogen 19 Calcium Level 8.1 L Carbon Dioxide Level 19 L Chloride Level 106 Creatinine 1.04 H Direct Bilirubin 0.00 Eosinophils # 0.0 Eosinophils % 0.4 Globulin 2.30 Glucose Level 102 Hematocrit 28.7 L Hemoglobin 9.4 L INR International Normalized Ratio 1.27 Indirect Bilirubin 0.3 Lymphocytes # 0.9 Lymphocytes % 14.1 L Mean Corpuscular Hemoglobin 29.8 Mean Corpuscular Hemoglobin Concent 32.7 Mean Corpuscular Volume 91.1 Mean Platelet Volume 10.3 Monocytes # 0.8 Monocytes % 12.3 H Neutrophils # 4.8 Neutrophils % 73.1 Nucleated Red Blood Cells # 0.0 Nucleated Red Blood Cells % 0.0 Platelet Count 122 #L Potassium Level 4.1 Prothrombin Time 16.0 H Prothrombin Time Ratio 1.3 Red Blood Count 3.15 L Red Cell Distribution Width 14.7 H Sodium Level 138 Total Bilirubin 0.3 Total Protein 5.1 L White Blood Count 6.6 Medications Medications Current Medications Cholecalciferol (Vitamin D) 1,000 unit DAILY PO Last administered on 06/12/16 08:29; Admin Dose 1,000 UNIT; Start 06/04/16 at 09:00 Clopidogrel Bisulfate (plaVIX) 75 mg DAILY PO Last administered on 06/12/16 08 :28; Admin Dose 75 MG; Start 06/04/16 at 09:00 Diltiazem HCl (Cardizem Cd) 180 mg DAILY PO Last administered on 06/11/16 10: 47; Admin Dose 180 MG; Start 06/04/16 at 09:00 Folic Acid (Folic Acid) 1 mg DAILY PO Last administered on 06/12/16 08:28; Admin Dose 1 MG; Start 06/04/16 at 09:00 Metoprolol Tartrate (Lopressor) 50 mg BID PO Last administered on 06/11/16 10: 47; Admin Dose 50 MG; Start 06/03/16 at 21:00 Mycophenolate Mofetil (Cellcept) 1,000 mg BID PO Last administered on 08:27; Admin Dose 1,000 MG; Start 06/03/16 at 21:00 Prednisone (Prednisone) 5 mg DAILY PO Last administered on 06/12/16 08:29; Admin Dose 5 MG; Start 06/04/16 at 09:00 Acetaminophen (Tylenol Tab) 650 mg Q4H PRN PO PAIN AND OR ELEVATED TEMP; Start 06/03/16 at 14:00 Acetaminophen/ Hydrocodone Bitart ([place] (5/325)) 1 tab Q4H PRN PO PAIN Last administered on 06/08/16 21:45; Admin Dose 1 TAB; Start 06/03/16 at 14:30 Morphine Sulfate (morphine) 2 mg Q4H PRN IV PAIN 7-10 Last administered on 06/11 14:57; Admin Dose 2 MG; Start 06/03/16 at 14:00 Tacrolimus 0.5 mg 0.5 mg Q12 PO Last administered on 06/12/16 08:28; Admin Dose 0.5 MG; Start 06/03/16 at 21:00 Linezolid (Zyvox 600mg/D5W (Pmx)) 300 ml @ 300 mls/hr Q12 IVPB Last administered on 06/12/16 08:27; Admin Dose 300 MLS/HR; Start 06/03/16 at 21:00 Senna 1 tab 1 tab BID PO Last administered on 06/12/16 08:29; Admin Dose 1 TAB ; Start 06/03/16 at 21:00 Sodium Chloride (NS) 1,000 ml @ 75 mls/hr [id number] IV Last administered on 06/12 02:01; Admin Dose 75 MLS/HR; Start 06/09/16 at 10:00 Ondansetron HCl (Zofran Inj) 4 mg Q4H PRN IV NAUSEA AND/OR VOMITING Last administered on 06/11/16 16:54; Admin Dose 4 MG; Start 06/10/16 at 17:30 Benazepril HCl (Lotensin) 10 mg BID PO ; Start 06/11/16 at 21:00 RAMON KEMP MD Jun 12, 2016 10:29
[2016-06-12] MEDS ORDERED: CITRIC ACID/NA CITRATE 30 ML CUP PO ONE (10:30)
--- NOTE | 2016-06-12 13:14 | CONS ---
Date/Time of Note Date/Time of Note DATE: 06/12/16 TIME: 13:09 Assessment/Plan Assessment/Plan Chief Complaint/Hosp Course IMPRESSION: 1. Preoperative evaluation prior to intervention on lower extremities for gangrenous changes of the toe. 2. Abnormal electrocardiogram, assess for acute coronary syndrome.-negative troponin x 3/Echo 06/05 EF 60-65/mod-sev TR. No cardiac contraindication to proceeding to OR on current medications at moderate risk 3. Hypertension, mildly elevated-borderline Hotn 4. Status post renal transplant. 5. 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 Anemia, mild. 7.TR-mod-sev by echo 8. s/p renal transplant Recc: -Continue plavix -Continue Dilt/metoprolol with possible need to decrease doses to allow patient to better tolerate. -Local wound care -Continue steroids/immunosuppresives -Follow volume status closely Problems: Consultation Date/Type/Reason Admit Date/Time Jun 03, 2016 at 11:09 Initial Consult Date 06/03/16 Type of Consultation: Cardiology Reason for Consultation pre-op/abnl ecg Referring Provider: WILD DUARTE MD Exam/Review of Systems Vital Signs Vitals Vital Signs Date Time Temp Pulse Resp B/P Pulse Ox O2 Delivery O2 Flow Rate FiO2 06/12/16 07:28 99.1 54 12 93/55 98 06/11/16 10:00 Room Air Intake and Output 06/11/16 06/11/16 06/12/16 15:00 23:00 07:00 Intake Total 300 ml 2515 ml 975 ml Output Total 3400 ml Balance 300 ml -885 ml 975 ml Exam Review of Systems: CONSTITUTIONAL: No fevers, chills. PULMONARY: No sob CARDIOVASCULAR: No chest pain/palpitations GASTROINTESTINAL: No nausea/vomiting. GENITOURINARY: No hematuria/dysuria. MUSCULOSKELETAL: mild pain in foot PSYCHIATRIC: The patient denies depression. NEUROLOGIC: No weakness Constitutional: alert, oriented Psych: no complaints Head: normocephalic ENMT: mucosa pink and moist Neck: jvd (9 cm water), supple Respiratory: diminished breath sounds (at bases/B) Cardiovascular: regular rate and rhythm Gastrointestinal: non-tender, soft Musculoskeletal: muscle tone (normal) Extremities: edema (none) Neurological: other (No focal deficits) Results Result Diagram: 06/12/1615 06/12/16 0515 Results 24 hrs Laboratory Tests Test 06/12/16 05:15 Activated Partial Thromboplast Time 30.4 Alanine Aminotransferase (ALT/SGPT) 32 Albumin 2.8 L Albumin/Globulin Ratio 1.21 Alkaline Phosphatase 162 H Anion Gap 17 H Aspartate Amino Transf (AST/SGOT) 13 L Basophils # 0.0 Basophils % 0.1 Blood Morphology Comment Blood Urea Nitrogen 19 Calcium Level 8.1 L Carbon Dioxide Level 19 L Chloride Level 106 Creatinine 1.04 H Direct Bilirubin 0.00 Eosinophils # 0.0 Eosinophils % 0.4 Globulin 2.30 Glucose Level 102 Hematocrit 28.7 L Hemoglobin 9.4 L INR International Normalized Ratio 1.27 Indirect Bilirubin 0.3 Lymphocytes # 0.9 Lymphocytes % 14.1 L Mean Corpuscular Hemoglobin 29.8 Mean Corpuscular Hemoglobin Concent 32.7 Mean Corpuscular Volume 91.1 Mean Platelet Volume 10.3 Monocytes # 0.8 Monocytes % 12.3 H Neutrophils # 4.8 Neutrophils % 73.1 Nucleated Red Blood Cells # 0.0 Nucleated Red Blood Cells % 0.0 Platelet Count 122 #L Potassium Level 4.1 Prothrombin Time 16.0 H Prothrombin Time Ratio 1.3 Red Blood Count 3.15 L Red Cell Distribution Width 14.7 H Sodium Level 138 Total Bilirubin 0.3 Total Protein 5.1 L White Blood Count 6.6 Medications Medications Current Medications Cholecalciferol (Vitamin D) 1,000 unit DAILY PO Last administered on 06/12/16 08:29; Admin Dose 1,000 UNIT; Start 06/04/16 at 09:00 Clopidogrel Bisulfate (plaVIX) 75 mg DAILY PO Last administered on 06/12/16 08 :28; Admin Dose 75 MG; Start 06/04/16 at 09:00 Diltiazem HCl (Cardizem Cd) 180 mg DAILY PO Last administered on 06/11/16 10: 47; Admin Dose 180 MG; Start 06/04/16 at 09:00 Folic Acid (Folic Acid) 1 mg DAILY PO Last administered on 06/12/16 08:28; Admin Dose 1 MG; Start 06/04/16 at 09:00 Metoprolol Tartrate (Lopressor) 50 mg BID PO Last administered on 06/11/16 10: 47; Admin Dose 50 MG; Start 06/03/16 at 21:00 Mycophenolate Mofetil (Cellcept) 1,000 mg BID PO Last administered on 08:27; Admin Dose 1,000 MG; Start 06/03/16 at 21:00 Prednisone (Prednisone) 5 mg DAILY PO Last administered on 06/12/16 08:29; Admin Dose 5 MG; Start 06/04/16 at 09:00 Acetaminophen (Tylenol Tab) 650 mg Q4H PRN PO PAIN AND OR ELEVATED TEMP; Start 06/03/16 at 14:00 Acetaminophen/ Hydrocodone Bitart ([place] (5/325)) 1 tab Q4H PRN PO PAIN Last administered on 06/08/16 21:45; Admin Dose 1 TAB; Start 06/03/16 at 14:30 Morphine Sulfate (morphine) 2 mg Q4H PRN IV PAIN 7-10 Last administered on 06/11 14:57; Admin Dose 2 MG; Start 06/03/16 at 14:00 Tacrolimus 0.5 mg 0.5 mg Q12 PO Last administered on 06/12/16 08:28; Admin Dose 0.5 MG; Start 06/03/16 at 21:00 Linezolid (Zyvox 600mg/D5W (Pmx)) 300 ml @ 300 mls/hr Q12 IVPB Last administered on 06/12/16 08:27; Admin Dose 300 MLS/HR; Start 06/03/16 at 21:00 Senna 1 tab 1 tab BID PO Last administered on 06/12/16 08:29; Admin Dose 1 TAB ; Start 06/03/16 at 21:00 Sodium Chloride (NS) 1,000 ml @ 75 mls/hr [id number] IV Last administered on 06/12 02:01; Admin Dose 75 MLS/HR; Start 06/09/16 at 10:00 Ondansetron HCl (Zofran Inj) 4 mg Q4H PRN IV NAUSEA AND/OR VOMITING Last administered on 06/11/16 16:54; Admin Dose 4 MG; Start 06/10/16 at 17:30 Benazepril HCl (Lotensin) 10 mg BID PO ; Start 06/11/16 at 21:00 Citric Acid/ Sodium Citrate (Bicitra) 30 ml BID PO ; Start 06/12/16 at 21:00 TIMOTHY CORTES Jun 12, 2016 13:14
--- NOTE | 2016-06-12 13:18 | CONS ---
Date/Time of Note Date/Time of Note DATE: 06/12/16 TIME: 13:18 Assessment/Plan Assessment/Plan Chief Complaint/Hosp Course UBJECTIVE: No events overnight. The patient is sitting comfortably in bed. Denies pain at the time. No fevers. ANTIMICROBIALS: The patient remains on Zyvox. PHYSICAL EXAMINATION: GENERAL: Well-developed, fragile, elderly woman who is alert, in no distress. HEENT: Head atraumatic, normocephalic. Sclerae anicteric. Buccal mucosa pink. NECK: Supple, trachea midline. CHEST: Rise symmetrical. Breath sounds clear. HEART: S1, S2. ABDOMEN: Soft. Bowel tones present. EXTREMITIES: With bilateral lower extremity gangrenous changes. ASSESSMENT: 1. Bilateral lower extremities gangrene. 2. Severe peripheral vascular disease status post angiogram with angioplasty. 3. History of kidney transplant, on Prograf, CellCept and prednisone. PLAN: The patient remains stable. Continue present care, antibiotics. Follow vascular/cardiology/renal recommendations. DW staff Problems: Consultation Date/Type/Reason Admit Date/Time Jun 03, 2016 at 11:09 Type of Consultation: ID Referring Provider: WILD DUARTE MD Exam/Review of Systems Vital Signs Vitals Vital Signs Date Time Temp Pulse Resp B/P Pulse Ox O2 Delivery O2 Flow Rate FiO2 06/12/16 07:28 99.1 54 12 93/55 98 06/11/16 10:00 Room Air Intake and Output 06/11/16 06/11/16 06/12/16 14:59 22:59 06:59 Intake Total 300 ml 2515 ml 975 ml Output Total 3400 ml Balance 300 ml -885 ml 975 ml Results Result Diagram: 06/12/16 0515 06/12/16 0515 Results 24 hrs Laboratory Tests Test 06/12/16 05:15 Activated Partial Thromboplast Time 30.4 Alanine Aminotransferase (ALT/SGPT) 32 Albumin 2.8 L Albumin/Globulin Ratio 1.21 Alkaline Phosphatase 162 H Anion Gap 17 H Aspartate Amino Transf (AST/SGOT) 13 L Basophils # 0.0 Basophils % 0.1 Blood Morphology Comment Blood Urea Nitrogen 19 Calcium Level 8.1 L Carbon Dioxide Level 19 L Chloride Level 106 Creatinine 1.04 H Direct Bilirubin 0.00 Eosinophils # 0.0 Eosinophils % 0.4 Globulin 2.30 Glucose Level 102 Hematocrit 28.7 L Hemoglobin 9.4 L INR International Normalized Ratio 1.27 Indirect Bilirubin 0.3 Lymphocytes # 0.9 Lymphocytes % 14.1 L Mean Corpuscular Hemoglobin 29.8 Mean Corpuscular Hemoglobin Concent 32.7 Mean Corpuscular Volume 91.1 Mean Platelet Volume 10.3 Monocytes # 0.8 Monocytes % 12.3 H Neutrophils # 4.8 Neutrophils % 73.1 Nucleated Red Blood Cells # 0.0 Nucleated Red Blood Cells % 0.0 Platelet Count 122 #L Potassium Level 4.1 Prothrombin Time 16.0 H Prothrombin Time Ratio 1.3 Red Blood Count 3.15 L Red Cell Distribution Width 14.7 H Sodium Level 138 Total Bilirubin 0.3 Total Protein 5.1 L White Blood Count 6.6 Medications Medications Current Medications Cholecalciferol (Vitamin D) 1,000 unit DAILY PO Last administered on 06/12/16 08:29; Admin Dose 1,000 UNIT; Start 06/04/16 at 09:00 Clopidogrel Bisulfate (plaVIX) 75 mg DAILY PO Last administered on 06/12/16 08 :28; Admin Dose 75 MG; Start 06/04/16 at 09:00 Diltiazem HCl (Cardizem Cd) 180 mg DAILY PO Last administered on 06/11/16 10: 47; Admin Dose 180 MG; Start 06/04/16 at 09:00 Folic Acid (Folic Acid) 1 mg DAILY PO Last administered on 06/12/16 08:28; Admin Dose 1 MG; Start 06/04/16 at 09:00 Mycophenolate Mofetil (Cellcept) 1,000 mg BID PO Last administered on 08:27; Admin Dose 1,000 MG; Start 06/03/16 at 21:00 Prednisone (Prednisone) 5 mg DAILY PO Last administered on 06/12/16 08:29; Admin Dose 5 MG; Start 06/04/16 at 09:00 Acetaminophen (Tylenol Tab) 650 mg Q4H PRN PO PAIN AND OR ELEVATED TEMP; Start 06/03/16 at 14:00 Acetaminophen/ Hydrocodone Bitart ([place] (5/325)) 1 tab Q4H PRN PO PAIN Last administered on 06/08/16 21:45; Admin Dose 1 TAB; Start 06/03/16 at 14:30 Morphine Sulfate (morphine) 2 mg Q4H PRN IV PAIN 7-10 Last administered on 06/11 14:57; Admin Dose 2 MG; Start 06/03/16 at 14:00 Tacrolimus 0.5 mg 0.5 mg Q12 PO Last administered on 06/12/16 08:28; Admin Dose 0.5 MG; Start 06/03/16 at 21:00 Linezolid (Zyvox 600mg/D5W (Pmx)) 300 ml @ 300 mls/hr Q12 IVPB Last administered on 06/12/16 08:27; Admin Dose 300 MLS/HR; Start 06/03/16 at 21:00 Senna 1 tab 1 tab BID PO Last administered on 06/12/16 08:29; Admin Dose 1 TAB ; Start 06/03/16 at 21:00 Sodium Chloride (NS) 1,000 ml @ 75 mls/hr [id number] IV Last administered on 06/12 02:01; Admin Dose 75 MLS/HR; Start 06/09/16 at 10:00 Ondansetron HCl (Zofran Inj) 4 mg Q4H PRN IV NAUSEA AND/OR VOMITING Last administered on 06/11/16 16:54; Admin Dose 4 MG; Start 06/10/16 at 17:30 Benazepril HCl (Lotensin) 10 mg BID PO ; Start 06/11/16 at 21:00 Citric Acid/ Sodium Citrate (Bicitra) 30 ml BID PO ; Start 06/12/16 at 21:00 Metoprolol Tartrate (Lopressor) 25 mg BID PO ; Start 06/12/16 at 21:00; Status JACQUES [employer]IN[employer]ACTITIONER Jun 12, 2016 13:18
--- NOTE | 2016-06-12 18:11 | PN ---
Date/Time of Note Date/Time of Note DATE: 06/12/16 TIME: 18:10 Assessment/Plan VTE Prophylaxis VTE Prophylaxis Intervention: SCD's Lines/Catheters IV [facility]ter Type (from [email or web address] Peripheral IV Urinary Cath still in place: No Assessment/Plan Chief Complaint/Hosp Course ASSESSMENT AND PLAN: 1. Bilateral lower extremity atherosclerosis with gangrene. The patient is followed by Dr. Valencia in vascular surgery consultation. S/p bilateral lower extremity angiogram with angioplasty of multiple arteries on . Dr. Bowen is following from infectious disease standpoint. Patient spell followed by Dr. Martin in podiatry consultation. Plan for right fifth toe amputation and debridement of the left fourth and fifth toe. 2. End-stage renal disease, status post renal transplant. Continue patient on prednisone and CellCept. Dr. Briscoe is following in nephrology consultation. Continue to monitor patient creatinine. IV hydration per nephrology. 3. Hypertension. Continue benazepril, Lopressor and diltiazem. Dr. Powell is following from cardiology standpoint. 4. 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 Continue Plavix. 5. Anemia of chronic kidney disease. Continue to monitor hemoglobin and hematocrit. 6. Severe peripheral arterial disease. Continue Plavix. Further recommendations based on clinical course. Plan of care discussed with Dr. Cohen. Problems: Subjective 24 Hr Interval Summary Free Text/Dictation Patient denies any nausea today, able to tolerate diet well, afebrile, pain is well controlled. Exam/Review of Systems Vital Signs Vitals Vital Signs Date Time Temp Pulse Resp B/P Pulse Ox O2 Delivery O2 Flow Rate FiO2 06/12/16 07:28 99.1 54 12 93/55 98 06/11/16 10:00 Room Air Intake and Output 06/11/16 06/11/16 06/12/16 15:00 23:00 07:00 Intake Total 300 ml 2515 ml 975 ml Output Total 3400 ml Balance 300 ml -885 ml 975 ml Exam PHYSICAL ASSESSMENT: GENERAL: A well-developed, well-nourished female in no acute distress. HEENT: Head is atraumatic, normocephalic. Pupils equal, round, reactive to light and accommodation. Oral mucosa is pink, moist. NECK: Supple. No cervical lymphadenopathy, no thyromegaly. CHEST: Lungs clear bilaterally. There are no rhonchi, wheezes, rales noted. CARDIOVASCULAR: Normal S1, S2. The patient has systolic murmur III/. ABDOMEN: Round, soft, nondistended, nontender. Bowel sounds present. There is no guarding or rebound tenderness. EXTREMITIES: The patient has right 5th toe gangrene and left 5th and 4th toe gangrene, and patient has multiple discolorations over bilateral thighs. SKIN: There is no rash, petechiae. NEUROLOGIC: The patient is awake, alert and oriented x4. Results Result Diagram: 06/12/1615 06/12/1615 Results 24 hrs Laboratory Tests Test 06/12/16 05:15 Activated Partial Thromboplast Time 30.4 Alanine Aminotransferase (ALT/SGPT) 32 Albumin 2.8 L Albumin/Globulin Ratio 1.21 Alkaline Phosphatase 162 H Anion Gap 17 H Aspartate Amino Transf (AST/SGOT) 13 L Basophils # 0.0 Basophils % 0.1 Blood Morphology Comment Blood Urea Nitrogen 19 Calcium Level 8.1 L Carbon Dioxide Level 19 L Chloride Level 106 Creatinine 1.04 H Direct Bilirubin 0.00 Eosinophils # 0.0 Eosinophils % 0.4 Globulin 2.30 Glucose Level 102 Hematocrit 28.7 L Hemoglobin 9.4 L INR International Normalized Ratio 1.27 Indirect Bilirubin 0.3 Lymphocytes # 0.9 Lymphocytes % 14.1 L Mean Corpuscular Hemoglobin 29.8 Mean Corpuscular Hemoglobin Concent 32.7 Mean Corpuscular Volume 91.1 Mean Platelet Volume 10.3 Monocytes # 0.8 Monocytes % 12.3 H Neutrophils # 4.8 Neutrophils % 73.1 Nucleated Red Blood Cells # 0.0 Nucleated Red Blood Cells % 0.0 Platelet Count 122 #L Potassium Level 4.1 Prothrombin Time 16.0 H Prothrombin Time Ratio 1.3 Red Blood Count 3.15 L Red Cell Distribution Width 14.7 H Sodium Level 138 Total Bilirubin 0.3 Total Protein 5.1 L White Blood Count 6.6 Medications Medications Current Medications Cholecalciferol (Vitamin D) 1,000 unit DAILY PO Last administered on 06/12/16 08:29; Admin Dose 1,000 UNIT; Start 06/04/16 at 09:00 Clopidogrel Bisulfate (plaVIX) 75 mg DAILY PO Last administered on 06/12/16 08 :28; Admin Dose 75 MG; Start 06/04/16 at 09:00 Diltiazem HCl (Cardizem Cd) 180 mg DAILY PO Last administered on 06/11/16 10: 47; Admin Dose 180 MG; Start 06/04/16 at 09:00 Folic Acid (Folic Acid) 1 mg DAILY PO Last administered on 06/12/16 08:28; Admin Dose 1 MG; Start 06/04/16 at 09:00 Mycophenolate Mofetil (Cellcept) 1,000 mg BID PO Last administered on 08:27; Admin Dose 1,000 MG; Start 06/03/16 at 21:00 Prednisone (Prednisone) 5 mg DAILY PO Last administered on 06/12/16 08:29; Admin Dose 5 MG; Start 06/04/16 at 09:00 Acetaminophen (Tylenol Tab) 650 mg Q4H PRN PO PAIN AND OR ELEVATED TEMP; Start 06/03/16 at 14:00 Acetaminophen/ Hydrocodone Bitart ([place] (5/325)) 1 tab Q4H PRN PO PAIN Last administered on 06/08/16 21:45; Admin Dose 1 TAB; Start 06/03/16 at 14:30 Morphine Sulfate (morphine) 2 mg Q4H PRN IV PAIN 7-10 Last administered on 06/11 14:57; Admin Dose 2 MG; Start 06/03/16 at 14:00 Tacrolimus 0.5 mg 0.5 mg Q12 PO Last administered on 06/12/16 08:28; Admin Dose 0.5 MG; Start 06/03/16 at 21:00 Linezolid (Zyvox 600mg/D5W (Pmx)) 300 ml @ 300 mls/hr Q12 IVPB Last administered on 06/12/16 08:27; Admin Dose 300 MLS/HR; Start 06/03/16 at 21:00 Senna 1 tab 1 tab BID PO Last administered on 06/12/16 08:29; Admin Dose 1 TAB ; Start 06/03/16 at 21:00 Sodium Chloride (NS) 1,000 ml @ 75 mls/hr [id number] IV Last administered on 06/12 02:01; Admin Dose 75 MLS/HR; Start 06/09/16 at 10:00 Ondansetron HCl (Zofran Inj) 4 mg Q4H PRN IV NAUSEA AND/OR VOMITING Last administered on 06/11/16t 16:54; Admin Dose 4 MG; Start 06/10/16 at 17:30 Benazepril HCl (Lotensin) 10 mg BID PO ; Start 06/11/16 at 21:00 Citric Acid/ Sodium Citrate (Bicitra) 30 ml BID PO ; Start 06/12/16 at 21:00 Metoprolol Tartrate (Lopressor) 25 mg BID PO ; Start 06/12/16 at 21:00 LES GILLILAND Jun 12, 2016 18:11
[2016-06-12 20:13] VITALS: BP 131/63; RESP 17
[2016-06-12] MEDS: CITRIC ACID/NA CITRATE 30 ML CUP PO SCH (20:23)
[2016-06-12] MEDS: METOPROLOL 25 MG TAB PO SCH (20:27)
--- NOTE | 2016-06-12 22:48 | PN ---
Date/Time of Note Date/Time of Note DATE: 06/12/16 TIME: 22:46 Assessment/Plan Lines/Catheters IV Catheter Type (from [facility]): Peripheral IV [place] in Place (from [facility]): No Assessment/Plan Chief Complaint/Hosp Course -Bilateral lower extremity atherosclerosis with gangrene: S/P Bilateral LE interventions -No further vascular intervention needed -Continue antibiotics. -Would recommend for patient to undergo debridement possible amputation as soon as possible as perfusion has improved to expedite wound healing -Appreciate nephrology evaluation and hydration -Discussed vascular optimization (BP meds, diet, nutrition, exercise, sugar control, antiplatelets). -Thank you for allowing us to partake in the care of your patient. Please call with any questions. Problems: Subjective 24 Hr Interval Summary Constitutional: ambulates, improved, no complaints Exam/Review of Systems Vital Signs Vitals Vital Signs Date Time Temp Pulse Resp B/P Pulse Ox O2 Delivery O2 Flow Rate FiO2 06/12/16 20:13 98.4 71 17 131/63 100 06/11/16 10:00 Room Air Intake and Output 06/11/16 06/11/16 06/12/16 15:00 23:00 07:00 Intake Total 300 ml 2515 ml 975 ml Output Total 3400 ml Balance 300 ml -885 ml 975 ml Exam Free Text/Dictation GENERAL: Alert and oriented x3. LUNGS: Clear to auscultation bilaterally. HEART: S1, S2 present. ABDOMEN: Soft, nontender, nondistended. Bowel sounds positive. EXTREMITIES: Right lower extremity palpable femoral pulse, nonpalpable pedal pulse. Motor, sensory intact. Cap refill 3 to 4 seconds. fifth toe with gangrene on the lateral aspect of the toe with demarcation with erythema and some dependent rubor on the dorsal aspect of the foot. Healed ulcers on her thigh and calf. Left lower extremity palpable femoral pulse, nonpalpable pedal pulse. Motor and sensory intact. Cap refill 3 to 4 seconds. She has circumferential gangrene of her 5th toe which is dry and she has her right 4th toe which has partial gangrene with demarcation with erythema improving, the gangrene on her 5th toe has expanded slightly further intermetatarsal region which is concerning Results Result Diagram: 06/12/1615 06/12/16514 WILD DUARTE MD Jun 12, 2016 22:48
[2016-06-13] VITALS (15 sets, daily range): BP systolic 112–154; BP diastolic 55–78; PULSE 62–68; RESP 16–21
[2016-06-13 05:43] LABS: EOSINOPHILS # 0.1 10^3/ul (0.0-0.5); EOSINOPHILS % 1.6 % (0.0-7.0); HEMATOCRIT 28.9 % (37.0-47.0); HEMOGLOBIN 9.3 g/dl (12.0-16.0); LYMPHOCYTES # 0.7 10^3/ul (0.8-2.9); LYMPHOCYTES % 14.6 % (15.0-51.0); MEAN CORPUSCULAR HEMOGLOBIN 29.2 pg (29.0-33.0); MEAN PLATELET VOLUME 9.8 fl (7.4-10.4); MONOCYTE # 0.5 10^3/ul (0.3-0.9); MONOCYTES % 10.8 % (0.0-11.0); NEUTROPHIL # 3.4 10^3/ul (1.6-7.5); PLATELET COUNT 119 10^3/UL (140-440); RED BLOOD COUNT 3.17 10^6/ul (4.20-5.40); RED CELL DISTRIBUTION WIDTH 14.9 % (11.5-14.5); UNCORRECTED WBC 4.6 10^3/ul (4.8-10.8); WHITE BLOOD COUNT 4.6 10^3/ul (4.8-10.8)
[2016-06-13 06:01] LABS: POTASSIUM 4.1 mmol/L (3.5-5.1)
[2016-06-13 06:03] LABS: CREATININE 0.8 mg/dl (0.44-1.00)
[2016-06-13 06:04] LABS: CALCIUM 8.6 mg/dl (8.4-10.2)
[2016-06-13 06:22] LABS: CONDITION 1; LH ANALYZER COMMENTS 1
[2016-06-13] MEDS ORDERED: LIDOCAINE 2% (MDV) 20 ML INJ ONE (06:59)
[2016-06-13] MEDS ORDERED: POLYMYXIN/BACITRACIN 1L IRRIG ONE (06:59)
[2016-06-13] MEDS ORDERED: BUPIVACAINE 0.5% (SDV) 30 ML INJ ONE (06:59)
[2016-06-13] MEDS: SOD CHLORIDE 0.9% 1,000 ML IV SCH ×2 (07:20→20:25)
--- NOTE | 2016-06-13 07:33 | HPN ---
Date/Time of Note Date/Time of Note DATE: 06/13/16 TIME: 07:33 Interval H&P Admission Note Pt. seen H&P reviewed: No system changes PHILLIP EMANUEL DPM Jun 13, 2016 07:33
[2016-06-13] MEDS ORDERED: FENTAnyl 50 MCG/ML VIAL ONE (07:47)
[2016-06-13] MEDS ORDERED: PROPOFOL 20 ML ONE (07:47)
[2016-06-13] MEDS ORDERED: CEFAZOLIN 1 GM INJ ONE (07:47)
[2016-06-13] MEDS ORDERED: MIDAZOLAM 1 MG/ML 2 ML INJ ONE (07:47)
[2016-06-13] MEDS ORDERED: LIDOCAINE 2% (SDV) 5 ML INJ ONE (07:47)
[2016-06-13] MEDS ORDERED: ONDANSETRON 4 MG INJ ONE (07:54)
[2016-06-13] MEDS ORDERED: DIPHENHYDRAMINE 50 MG INJ IV PRN (08:30)
[2016-06-13] MEDS ORDERED: MEPERIDINE 25 MG INJ IV PRN (08:30)
[2016-06-13] MEDS ORDERED: PROCHLORPERAZINE 10 MG INJ IV PRN (08:30)
[2016-06-13] MEDS ORDERED: ONDANSETRON 4 MG INJ IV PRN (08:30)
[2016-06-13] MEDS ORDERED: FENTAnyl 50 MCG/ML VIAL IV PRN (08:30)
[2016-06-13] MEDS ORDERED: OXYCODONE/ACETAMINOPHEN (5/325) TAB PO PRN (08:30)
[2016-06-13] MEDS ORDERED: HYDROmorphONE (0.2 MG/ML) 10ML SYG IV PRN (08:30)
--- NOTE | 2016-06-13 08:45 | OPR ---
Date/Time of Note Date/Time of Note DATE: 06/13/16 TIME: 08:41 Operative Report Procedure Date: Jun 13, 2016 Preoperative Diagnosis Gangrene of left fifth toe Gangrene of left fourth toe Gangrene of right fifth toe Peripheral vascular disease Diabetes mellitus Peripheral neuropathy Postoperative Diagnosis Gangrene of left fifth toe Gangrene of left fourth toe Gangrene of right fifth toe Peripheral vascular disease Diabetes mellitus Peripheral neuropathy Operation Performed Amputation of left fifth gangrenous toe Surgical debridement of gangrenous left fourth toe Surgical debridement of gangrenous right fifth toe Surgeon: PHILLIP EMANUEL DPM Anesthesia: MAC Estimated Blood Loss: minimal Specimens Left fifth gangrenous toe Complications: None Pt Condition Post Procedure: stable Disposition: PACU Indications This is a pleasant 61 year old female who has been suffering with gangrene of her left fifth, fourth and right fifth toes. Patient has had recent lower extremity arterial procedure. I recommended amputation of the left fifth toe with surgical debridement of left fourth and right fifth toes. Risks and complications of this type of surgery was discussed with patient in great detail. All questions were answered. Consent was obtained, signed and placed in the chart. No guarantee or warranty was given or implied as to the outcome of the procedure, either in verbal or written form. Operative Findings Gangrenous changes to the left fifth toe at 80% of the toe. 40% gangrene of the left fourth toe. 25% gangrene of the right fifth toe. Procedure Description The patient was brought into the operating room and was placed on the operating table in supine position. All bony prominences were properly padded. A timeout was called by the circulating nurse. The patient was placed under mild sedation and I injected the left foot with 20 cc of a one-to-one mixture of 2% lidocaine plain and 0.5% Marcaine plain. Left foot was then scrubbed, prepped and draped in the usual aseptic manner. Attention was directed to the left foot. Left fifth toe was found to be 80% gangrenous. An incision was made along the healthy tissue border using a #15 blade to bleeding tissue. Using electrocautery, bleeders were cauterized. The gangrenous toe was sharply debrided using electrocautery, sharp [address] to the metatarsophalangeal joint. The toe was then disarticulated at this level. Bleeders were cauterized to control as necessary. The wound was flushed with copious amounts of sterile normal saline. I created a plantar flap from the fifth toe and was able to bring up the flap to cover the wound. Primary closure was achieved using 4-0 Monocryl in simple suture technique. Next, sharp debridement of gangrenous changes of the left fourth toe was done to bleeding tissue. Next, sharp debridement of gangrenous changes of the right fifth toe was done to bleeding tissue. All wounds were flushed with copious amounts of sterile normal saline. Sterile dressing was applied to both feet. Patient tolerated the procedure and anesthesia well. She was transferred to the recovery room with vital signs stable and vascular status intact the remaining left foot and full right foot. Postoperative orders written. X-rays are ordered as well. Patient is to be nonweightbearing on her feet. Patient will be sent back to the floor when stable. Patient will be followed in-house. PHILLIP EMANUEL DPM Jun 13, 2016 08:45
[2016-06-13] MEDS: METOPROLOL 25 MG TAB PO SCH ×3 (09:00→20:38)
[2016-06-13] MEDS: TACROLIMUS 0.5 MG CAP PO SCH ×3 (09:00→20:24)
[2016-06-13] MEDS: predniSONE 5 MG TAB PO SCH ×2 (09:00→10:38)
[2016-06-13] MEDS: SENNA TAB PO SCH ×3 (09:00→20:24)
[2016-06-13] MEDS: CITRIC ACID/NA CITRATE 30 ML CUP PO SCH ×3 (09:00→20:23)
[2016-06-13] MEDS: DILTIAZEM (CD) 180 MG CAP PO SCH ×2 (09:00→10:39)
[2016-06-13] MEDS: MYCOPHENOLATE 250 MG CAP PO SCH ×3 (09:00→20:24)
[2016-06-13] MEDS: LINEZOLID 600 MG/D5W (PMX) 300 ML IVPB SCH ×3 (09:00→20:25)
[2016-06-13] MEDS: BENAZEPRIL 10 MG TAB PO SCH ×3 (09:00→20:38)
[2016-06-13] MEDS: CHOLECALCIFEROL 1,000 UNIT TAB PO SCH ×2 (09:00→10:33)
[2016-06-13] MEDS: FOLIC ACID 1 MG TAB PO SCH ×2 (09:00→10:37)
[2016-06-13] MEDS: CLOPIDOGREL 75 MG TAB PO SCH ×2 (09:00→10:37)
--- NOTE | 2016-06-13 09:35 | CONS ---
Date/Time of Note Date/Time of Note DATE: 06/13/16 TIME: 09:33 Assessment/Plan Assessment/Plan Additional Assessment/Plan 1. Left lower extremity gangrene s/p LE angiogram - plan for podiatry surgery today 2. Acute hyperkalemia- resolved 3. Acute kidney injury post angiogram due to contrast exposure with prerenal azotemia - now improved to normal 3. Status post donor kidney transplant in 2009 at [facility], currently on immunosuppression with Prograf, CellCept, prednisone. 4. 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 History of hypertension. 6. History of diabetes mellitus. 7. History of previous left upper extremity arteriovenous fistula. PLAN: plan for podiatry surgery today Cr improved back to normal, electroytes stable, Continue Bicitra continue Current immunosuppression with cellcept, prograf and prednisone Right lower quadrant Renal allograft US - normal will follow up Consultation Date/Type/Reason Admit Date/Time Jun 03, 2016 at 11:09 Initial Consult Date May Type of Consultation: NEPHROLOGY Reason for Consultation TOME[place], kidney transplant, Referring Provider: WILD DUARTE MD 24 HR Interval Summary Free Text/Dictation Plan for podiatry surgery today,a febrile, BP stable Exam/Review of Systems Vital Signs Vitals Vital Signs Date Time Temp Pulse Resp B/P Pulse Ox O2 Delivery O2 Flow Rate FiO2 06/13/16 09:20 64 17 120/55 100 Room Air 06/13/16 08:59 98.0 Intake and Output 06/12/16 06/12/16 06/13/16 15:00 23:00 07:00 Intake Total 2265 ml 712 ml Balance 2265 ml 712 ml Exam GENERAL: Awake, alert, in no distress. HEENT: Normal. Oropharynx clear. NECK: Supple, no JVD, no lymphadenopathy. LUNGS: Clear to auscultation. No crackles, no wheezes. HEART: S1, S2, with regular rhythm, no murmur. ABDOMEN: Soft, nontender, nondistended. Bowel sounds are present. EXTREMITIES: No clubbing, cyanosis, or edema. LLE gangrene Results Result Diagram: 06/13/16 0510 06/13/16 0510 Results 24 hrs Laboratory Tests Test 06/13/16 05:10 Anion Gap 14 Basophils # 0.0 Basophils % 0.0 Blood Morphology Comment Blood Urea Nitrogen 14 Calcium Level 8.6 Carbon Dioxide Level 23 Chloride Level 109 Creatinine 0.80 Eosinophils # 0.1 Eosinophils % 1.6 Glucose Level 84 Hematocrit 28.9 L Hemoglobin 9.3 L Lymphocytes # 0.7 L Lymphocytes % 14.6 L Mean Corpuscular Hemoglobin 29.2 Mean Corpuscular Hemoglobin Concent 32.0 Mean Corpuscular Volume 91.0 Mean Platelet Volume 9.8 Monocytes # 0.5 Monocytes % 10.8 Neutrophils # 3.4 Neutrophils % 73.0 Nucleated Red Blood Cells # 0.0 Nucleated Red Blood Cells % 0.0 Platelet Count 119 L Potassium Level 4.1 Red Blood Count 3.17 L Red Cell Distribution Width 14.9 H Sodium Level 142 White Blood Count 4.6 #L Medications Medications Current Medications Cholecalciferol (Vitamin D) 1,000 unit DAILY PO Last administered on 06/12/16 08:29; Admin Dose 1,000 UNIT; Start 06/04/16 at 09:00 Clopidogrel Bisulfate (plaVIX) 75 mg DAILY PO Last administered on 06/12/16 08 :28; Admin Dose 75 MG; Start 06/04/16 at 09:00 Diltiazem HCl (Cardizem Cd) 180 mg DAILY PO Last administered on 06/11/16 10: 47; Admin Dose 180 MG; Start 06/04/16 at 09:00 Folic Acid (Folic Acid) 1 mg DAILY PO Last administered on 06/12/16 08:28; Admin Dose 1 MG; Start 06/04/16 at 09:00 Mycophenolate Mofetil (Cellcept) 1,000 mg BID PO Last administered on 20:25; Admin Dose 1,000 MG; Start 06/03/16 at 21:00 Prednisone (Prednisone) 5 mg DAILY PO Last administered on 06/12/16 08:29; Admin Dose 5 MG; Start 06/04/16 at 09:00 Acetaminophen (Tylenol Tab) 650 mg Q4H PRN PO PAIN AND OR ELEVATED TEMP; Start 06/03/16 at 14:00 Acetaminophen/ Hydrocodone Bitart ([place] (5/325)) 1 tab Q4H PRN PO PAIN Last administered on 06/08/16 21:45; Admin Dose 1 TAB; Start 06/03/16 at 14:30 Morphine Sulfate (morphine) 2 mg Q4H PRN IV PAIN 7-10 Last administered on 06/11 14:57; Admin Dose 2 MG; Start 06/03/16 at 14:00 Tacrolimus 0.5 mg 0.5 mg Q12 PO Last administered on 06/12/16 20:24; Admin Dose 0.5 MG; Start 06/03/16 at 21:00 Linezolid (Zyvox 600mg/D5W (Pmx)) 300 ml @ 300 mls/hr Q12 IVPB Last administered on 06/12/16 20:24; Admin Dose 300 MLS/HR; Start 06/03/16 at 21:00 Senna 1 tab 1 tab BID PO Last administered on 06/12/16 20:25; Admin Dose 1 TAB ; Start 06/03/16 at 21:00 Sodium Chloride (NS) 1,000 ml @ 75 mls/hr [id number] IV Last administered on 06/12 19:36; Admin Dose 75 MLS/HR; Start 06/09/16 at 10:00 Ondansetron HCl (Zofran Inj) 4 mg Q4H PRN IV NAUSEA AND/OR VOMITING Last administered on 06/11/16 16:54; Admin Dose 4 MG; Start 06/10/16 at 17:30 Benazepril HCl (Lotensin) 10 mg BID PO Last administered on 06/12/16 20:27; Admin Dose 10 MG; Start 06/11/16 at 21:00 Citric Acid/ Sodium Citrate (Bicitra) 30 ml BID PO Last administered on 20:23; Admin Dose 30 ML; Start 06/12/16 at 21:00 Metoprolol Tartrate (Lopressor) 25 mg BID PO Last administered on 06/12/16 20: 27; Admin Dose 25 MG; Start 06/12/16 at 21:00 RAMON KEMP MD Jun 13, 2016 09:35
--- NOTE | 2016-06-13 11:15 | CONS ---
Date/Time of Note Date/Time of Note DATE: 06/13/16 TIME: 11:11 Assessment/Plan Assessment/Plan Chief Complaint/Hosp Course IMPRESSION: 1. Preoperative evaluation prior to intervention on lower extremities for gangrenous changes of the toe. 2. Abnormal electrocardiogram, assess for acute coronary syndrome.-negative troponin x 3/Echo 06/05 EF 60-65/mod-sev TR. No cardiac contraindication to proceeding to OR on current medications at moderate risk 3. Hypertension, mildly elevated-borderline Hotn 4. Status post renal transplant. 5. Peripheral arterial disease with lower extremity gangrenous changes and nonhealing wound s/p peripheral angio/[employer] 06/10/16 and now POD#0 s/p toe debridement 6. Anemia, mild. 7.TR-mod-sev by echo 8. s/p renal transplant Recc: -Continue plavix -Continue ACEI/metoprolol and follow BP closely -Local wound care -Continue steroids/immunosuppresives -Follow volume status closely Problems: Consultation Date/Type/Reason Admit Date/Time Jun 03, 2016 at 11:09 Initial Consult Date 06/03/16 Type of Consultation: Cardiology Reason for Consultation HTn/abnl ecg Referring Provider: WILD DUARTE MD Exam/Review of Systems Vital Signs Vitals Vital Signs Date Time Temp Pulse Resp B/P Pulse Ox O2 Delivery O2 Flow Rate FiO2 06/13/16 10:08 97.7 70 16 141/71 100 06/13/16 09:40 Room Air Intake and Output 06/12/16 06/12/16 06/13/16 15:00 23:00 07:00 Intake Total 2265 ml 712 ml Balance 2265 ml 712 ml Exam Review of Systems: CONSTITUTIONAL: No fevers, chills. PULMONARY: No sob CARDIOVASCULAR: No chest pain/palpitations GASTROINTESTINAL: No nausea/vomiting. GENITOURINARY: No hematuria/dysuria. MUSCULOSKELETAL: pain in foot PSYCHIATRIC: The patient denies depression. NEUROLOGIC: No weakness Constitutional: alert Psych: no complaints Head: normocephalic ENMT: mucosa pink and moist Neck: jvd (8 cm water), supple Respiratory: diminished breath sounds (at bases/B) Cardiovascular: regular rate and rhythm Gastrointestinal: non-tender, soft Musculoskeletal: muscle tone Extremities: edema (none) Neurological: other (No focal deficits) Results Result Diagram: 06/13/16 0510 06/13/16 0510 Results 24 hrs Laboratory Tests Test 06/13/16 05:10 Anion Gap 14 Basophils # 0.0 Basophils % 0.0 Blood Morphology Comment Blood Urea Nitrogen 14 Calcium Level 8.6 Carbon Dioxide Level 23 Chloride Level 109 Creatinine 0.80 Eosinophils # 0.1 Eosinophils % 1.6 Glucose Level 84 Hematocrit 28.9 L Hemoglobin 9.3 L Lymphocytes # 0.7 L Lymphocytes % 14.6 L Mean Corpuscular Hemoglobin 29.2 Mean Corpuscular Hemoglobin Concent 32.0 Mean Corpuscular Volume 91.0 Mean Platelet Volume 9.8 Monocytes # 0.5 Monocytes % 10.8 Neutrophils # 3.4 Neutrophils % 73.0 Nucleated Red Blood Cells # 0.0 Nucleated Red Blood Cells % 0.0 Platelet Count 119 L Potassium Level 4.1 Red Blood Count 3.17 L Red Cell Distribution Width 14.9 H Sodium Level 142 White Blood Count 4.6 #L Medications Medications Current Medications Cholecalciferol (Vitamin D) 1,000 unit DAILY PO Last administered on 06/13/16 10:33; Admin Dose 1,000 UNIT; Start 06/04/16 at 09:00 Clopidogrel Bisulfate (plaVIX) 75 mg DAILY PO Last administered on 06/13/16 10 :37; Admin Dose 75 MG; Start 06/04/16 at 09:00 Diltiazem HCl (Cardizem Cd) 180 mg DAILY PO Last administered on 06/13/16 10: 39; Admin Dose 180 MG; Start 06/04/16 at 09:00 Folic Acid (Folic Acid) 1 mg DAILY PO Last administered on 06/13/16 10:37; Admin Dose 1 MG; Start 06/04/16 at 09:00 Mycophenolate Mofetil (Cellcept) 1,000 mg BID PO Last administered on 10:40; Admin Dose 1,000 MG; Start 06/03/16 at 21:00 Prednisone (Prednisone) 5 mg DAILY PO Last administered on 06/13/16 10:38; Admin Dose 5 MG; Start 06/04/16 at 09:00 Acetaminophen (Tylenol Tab) 650 mg Q4H PRN PO PAIN AND OR ELEVATED TEMP; Start 06/03/16 at 14:00 Acetaminophen/ Hydrocodone Bitart ([place] (5/325)) 1 tab Q4H PRN PO PAIN Last administered on 06/08/16 21:45; Admin Dose 1 TAB; Start 06/03/16 at 14:30 Morphine Sulfate (morphine) 2 mg Q4H PRN IV PAIN 7-10 Last administered on 06/11 14:57; Admin Dose 2 MG; Start 06/03/16 at 14:00 Tacrolimus 0.5 mg 0.5 mg Q12 PO Last administered on 06/13/16 10:34; Admin Dose 0.5 MG; Start 06/03/16 at 21:00 Linezolid (Zyvox 600mg/D5W (Pmx)) 300 ml @ 300 mls/hr Q12 IVPB Last administered on 06/12/16 20:24; Admin Dose 300 MLS/HR; Start 06/03/16 at 21:00 Senna 1 tab 1 tab BID PO Last administered on 06/13/16 10:37; Admin Dose 1 TAB ; Start 06/03/16 at 21:00 Sodium Chloride (NS) 1,000 ml @ 75 mls/hr [id number] IV Last administered on 06/12 19:36; Admin Dose 75 MLS/HR; Start 06/09/16 at 10:00 Ondansetron HCl (Zofran Inj) 4 mg Q4H PRN IV NAUSEA AND/OR VOMITING Last administered on 06/11/16 16:54; Admin Dose 4 MG; Start 06/10/16 at 17:30 Benazepril HCl (Lotensin) 10 mg BID PO Last administered on 06/13/16 10:37; Admin Dose 10 MG; Start 06/11/16 at 21:00 Citric Acid/ Sodium Citrate (Bicitra) 30 ml BID PO Last administered on 10:32; Admin Dose 30 ML; Start 06/12/16 at 21:00 Metoprolol Tartrate (Lopressor) 25 mg BID PO Last administered on 06/13/16 10: 38; Admin Dose 25 MG; Start 06/12/16 at 21:00 TIMOTHY CORTES Jun 13, 2016 11:15
--- NOTE | 2016-06-13 11:43 | PN ---
Date/Time of Note Date/Time of Note DATE: 06/13/16 TIME: 11:40 Assessment/Plan Lines/Catheters IV [facility] [place] [facility] Urinary Cath still in place: No Assessment/Plan Assessment/Plan 1. Bilateral lower extremity atherosclerosis with gangrene. The patient is followed by Dr. Valencia in vascular surgery consultation. S/p bilateral lower extremity angiogram with angioplasty of multiple arteries on . Dr. Bowen is following from infectious disease standpoint. Patient spell followed by Dr. Martin in podiatry consultation. Plan for right fifth toe amputation and debridement of the left fourth and fifth toe. 2. End-stage renal disease, status post renal transplant. Continue patient on prednisone and CellCept. Dr. Briscoe is following in nephrology consultation. Continue to monitor patient creatinine. IV hydration per nephrology. 3. Hypertension. Continue benazepril, Lopressor and diltiazem. Dr. Powell is following from cardiology standpoint. 4. 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 Continue Plavix. 5. Anemia of chronic kidney disease. Continue to monitor hemoglobin and hematocrit. 6. Severe peripheral arterial disease. Continue Plavix. Further recommendations based on clinical course. Plan of care discussed with Dr. Cohen. Exam/Review of Systems Vital Signs Vitals Vital Signs Date Time Temp Pulse Resp B/P Pulse Ox O2 Delivery O2 Flow Rate FiO2 06/13/16 10:08 97.7 70 16 141/71 100 06/13/16 09:40 Room Air Intake and Output 06/12/16 06/12/16 06/13/16 15:00 23:00 07:00 Intake Total 2265 ml 712 ml Balance 2265 ml 712 ml Results Result Diagram: 06/13/16 0510 06/13/16 0510 Results 24 hrs Laboratory Tests Test 06/13/16 05:10 Anion Gap 14 Basophils # 0.0 Basophils % 0.0 Blood Morphology Comment Blood Urea Nitrogen 14 Calcium Level 8.6 Carbon Dioxide Level 23 Chloride Level 109 Creatinine 0.80 Eosinophils # 0.1 Eosinophils % 1.6 Glucose Level 84 Hematocrit 28.9 L Hemoglobin 9.3 L Lymphocytes # 0.7 L Lymphocytes % 14.6 L Mean Corpuscular Hemoglobin 29.2 Mean Corpuscular Hemoglobin Concent 32.0 Mean Corpuscular Volume 91.0 Mean Platelet Volume 9.8 Monocytes # 0.5 Monocytes % 10.8 Neutrophils # 3.4 Neutrophils % 73.0 Nucleated Red Blood Cells # 0.0 Nucleated Red Blood Cells % 0.0 Platelet Count 119 L Potassium Level 4.1 Red Blood Count 3.17 L Red Cell Distribution Width 14.9 H Sodium Level 142 White Blood Count 4.6 #L Medications Medications Current Medications Cholecalciferol (Vitamin D) 1,000 unit DAILY PO Last administered on 06/13/16 10:33; Admin Dose 1,000 UNIT; Start 06/04/16 at 09:00 Clopidogrel Bisulfate (plaVIX) 75 mg DAILY PO Last administered on 06/13/16 10 :37; Admin Dose 75 MG; Start 06/04/16 at 09:00 Diltiazem HCl (Cardizem Cd) 180 mg DAILY PO Last administered on 06/13/16 10: 39; Admin Dose 180 MG; Start 06/04/16 at 09:00 Folic Acid (Folic Acid) 1 mg DAILY PO Last administered on 06/13/16 10:37; Admin Dose 1 MG; Start 06/04/16 at 09:00 Mycophenolate Mofetil (Cellcept) 1,000 mg BID PO Last administered on 10:40; Admin Dose 1,000 MG; Start 06/03/16 at 21:00 Prednisone (Prednisone) 5 mg DAILY PO Last administered on 06/13/16 10:38; Admin Dose 5 MG; Start 06/04/16 at 09:00 Acetaminophen (Tylenol Tab) 650 mg Q4H PRN PO PAIN AND OR ELEVATED TEMP; Start 06/03/16 at 14:00 Acetaminophen/ Hydrocodone Bitart ([place] (5/325)) 1 tab Q4H PRN PO PAIN Last administered on 06/08/16 21:45; Admin Dose 1 TAB; Start 06/03/16 at 14:30 Morphine Sulfate (morphine) 2 mg Q4H PRN IV PAIN 7-10 Last administered on 06/11 14:57; Admin Dose 2 MG; Start 06/03/16 at 14:00 Tacrolimus 0.5 mg 0.5 mg Q12 PO Last administered on 06/13/16 10:34; Admin Dose 0.5 MG; Start 06/03/16 at 21:00 Linezolid (Zyvox 600mg/D5W (Pmx)) 300 ml @ 300 mls/hr Q12 IVPB Last administered on 06/12/16 20:24; Admin Dose 300 MLS/HR; Start 06/03/16 at 21:00 Senna 1 tab 1 tab BID PO Last administered on 06/13/16 10:37; Admin Dose 1 TAB ; Start 06/03/16 at 21:00 Sodium Chloride (NS) 1,000 ml @ 75 mls/hr [id number] IV Last administered on 06/12 19:36; Admin Dose 75 MLS/HR; Start 06/09/16 at 10:00 Ondansetron HCl (Zofran Inj) 4 mg Q4H PRN IV NAUSEA AND/OR VOMITING Last administered on 06/11/16 16:54; Admin Dose 4 MG; Start 06/10/16 at 17:30 Benazepril HCl (Lotensin) 10 mg BID PO Last administered on 06/13/16 10:37; Admin Dose 10 MG; Start 06/11/16 at 21:00 Citric Acid/ Sodium Citrate (Bicitra) 30 ml BID PO Last administered on 10:32; Admin Dose 30 ML; Start 06/12/16 at 21:00 Metoprolol Tartrate (Lopressor) 25 mg BID PO Last administered on 06/13/16 10: 38; Admin Dose 25 MG; Start 06/12/16 at 21:00 TMI BENNETT Jun 13, 2016 11:43
--- NOTE | 2016-06-13 11:57 | RADRPT ---
PROCEDURE: XR Left Foot. CLINICAL INDICATION: Postoperative x-rays following indication of the left fifth digit. TECHNIQUE: AP, lateral and oblique views of the left foot was obtained. The images were reviewed on a PACS workstation. COMPARISON: Left foot 04/02/2016 FINDINGS: The bony elements are rarefied. The left fifth digit was amputated. This effacing the same adjacen t to the distal end of the left fifth metatarsal bone. There are vascular calcifications in the art erial side of the including anterior posterior tibial arteries and plantar arteries. There is a princess ntar spur off of the os calcaneus. There is a small residual bone density distal to the left fifth metatarsal bone. IMPRESSION: 1. There are extensive vascular calcifications in the foot and ankle. 2. Status post amputation of the left fifth digit. 3. Rarefaction of bony elements. 4. Plantar spur off of the left os calcaneus. RPTAT:AAJJ Physician Izzy Date Time Electronically viewed and signed by Physician Izzy on 06/13/2016 11:56 RHODA/
[2016-06-13] MEDS ORDERED: LIDOCAINE 1% (MDV) 20 ML INJ SC ONE (12:30)
--- NOTE | 2016-06-13 12:51 | CONS ---
Date/Time of Note Date/Time of Note DATE: 06/13/16 TIME: 12:50 Assessment/Plan Assessment/Plan Chief Complaint/Hosp Course UBJECTIVE: No events overnight. The patient is sitting comfortably in bed. Denies pain at the time. No fevers. ANTIMICROBIALS: Zyvox. PHYSICAL EXAMINATION: GENERAL: Well-developed, fragile, elderly woman who is alert, in no distress. HEENT: Head atraumatic, normocephalic. Sclerae anicteric. Buccal mucosa pink. NECK: Supple, trachea midline. CHEST: Rise symmetrical. Breath sounds clear. HEART: S1, S2. ABDOMEN: Soft. Bowel tones present. EXTREMITIES: With bilateral lower extremity dressings intact ASSESSMENT: 1. Bilateral lower extremities gangrene, s/p amputation of left fifth gangrenous toe Surgical debridement of gangrenous left fourth toe Surgical debridement of gangrenous right fifth toe 2. Severe peripheral vascular disease status post angiogram with angioplasty. 3. History of kidney transplant, on Prograf, CellCept and prednisone. PLAN: The patient remains stable. Continue present care, antibiotics. Follow vascular/cardiology/renal recommendations. DW staff Problems: Consultation Date/Type/Reason Admit Date/Time Jun 03, 2016 at 11:09 Type of Consultation: ID Referring Provider: WILD DUARTE MD Exam/Review of Systems Vital Signs Vitals Vital Signs Date Time Temp Pulse Resp B/P Pulse Ox O2 Delivery O2 Flow Rate FiO2 06/13/16 10:08 97.7 70 16 141/71 100 06/13/16 09:40 Room Air Intake and Output 06/12/16 06/12/16 06/13/16 15:00 23:00 07:00 Intake Total 2265 ml 712 ml Balance 2265 ml 712 ml Results Result Diagram: 06/13/16 0510 06/13/16 0510 Results 24 hrs Laboratory Tests Test 06/13/16 05:10 Anion Gap 14 Basophils # 0.0 Basophils % 0.0 Blood Morphology Comment Blood Urea Nitrogen 14 Calcium Level 8.6 Carbon Dioxide Level 23 Chloride Level 109 Creatinine 0.80 Eosinophils # 0.1 Eosinophils % 1.6 Glucose Level 84 Hematocrit 28.9 L Hemoglobin 9.3 L Lymphocytes # 0.7 L Lymphocytes % 14.6 L Mean Corpuscular Hemoglobin 29.2 Mean Corpuscular Hemoglobin Concent 32.0 Mean Corpuscular Volume 91.0 Mean Platelet Volume 9.8 Monocytes # 0.5 Monocytes % 10.8 Neutrophils # 3.4 Neutrophils % 73.0 Nucleated Red Blood Cells # 0.0 Nucleated Red Blood Cells % 0.0 Platelet Count 119 L Potassium Level 4.1 Red Blood Count 3.17 L Red Cell Distribution Width 14.9 H Sodium Level 142 White Blood Count 4.6 #L Medications Medications Current Medications Cholecalciferol (Vitamin D) 1,000 unit DAILY PO Last administered on 06/13/16 10:33; Admin Dose 1,000 UNIT; Start 06/04/16 at 09:00 Clopidogrel Bisulfate (plaVIX) 75 mg DAILY PO Last administered on 06/13/16 10 :37; Admin Dose 75 MG; Start 06/04/16 at 09:00 Diltiazem HCl (Cardizem Cd) 180 mg DAILY PO Last administered on 06/13/16 10: 39; Admin Dose 180 MG; Start 06/04/16 at 09:00 Folic Acid (Folic Acid) 1 mg DAILY PO Last administered on 06/13/16 10:37; Admin Dose 1 MG; Start 06/04/16 at 09:00 Mycophenolate Mofetil (Cellcept) 1,000 mg BID PO Last administered on 10:40; Admin Dose 1,000 MG; Start 06/03/16 at 21:00 Prednisone (Prednisone) 5 mg DAILY PO Last administered on 06/13/16 10:38; Admin Dose 5 MG; Start 06/04/16 at 09:00 Acetaminophen (Tylenol Tab) 650 mg Q4H PRN PO PAIN AND OR ELEVATED TEMP; Start 06/03/16 at 14:00 Acetaminophen/ Hydrocodone Bitart ([place] (5/325)) 1 tab Q4H PRN PO PAIN Last administered on 06/08/16 21:45; Admin Dose 1 TAB; Start 06/03/16 at 14:30 Morphine Sulfate (morphine) 2 mg Q4H PRN IV PAIN 7-10 Last administered on 06/11 14:57; Admin Dose 2 MG; Start 06/03/16 at 14:00 Tacrolimus 0.5 mg 0.5 mg Q12 PO Last administered on 06/13/16 10:34; Admin Dose 0.5 MG; Start 06/03/16 at 21:00 Linezolid (Zyvox 600mg/D5W (Pmx)) 300 ml @ 300 mls/hr Q12 IVPB Last administered on 06/13/16 12:28; Admin Dose 300 MLS/HR; Start 06/03/16 at 21:00 Senna 1 tab 1 tab BID PO Last administered on 06/13/16 10:37; Admin Dose 1 TAB ; Start 06/03/16 at 21:00 Sodium Chloride (NS) 1,000 ml @ 75 mls/hr [id number] IV Last administered on 06/12 19:36; Admin Dose 75 MLS/HR; Start 06/09/16 at 10:00 Ondansetron HCl (Zofran Inj) 4 mg Q4H PRN IV NAUSEA AND/OR VOMITING Last administered on 06/11/16 16:54; Admin Dose 4 MG; Start 06/10/16 at 17:30 Benazepril HCl (Lotensin) 10 mg BID PO Last administered on 06/13/16 10:37; Admin Dose 10 MG; Start 06/11/16 at 21:00 Citric Acid/ Sodium Citrate (Bicitra) 30 ml BID PO Last administered on 10:32; Admin Dose 30 ML; Start 06/12/16 at 21:00 Metoprolol Tartrate (Lopressor) 25 mg BID PO Last administered on 06/13/16 10: 38; Admin Dose 25 MG; Start 06/12/16 at 21:00 JACQUES HUERTA NP Jun 13, 2016 12:51
[2016-06-13] MEDS: morphine 2 MG INJ IV PRN (14:01)
[2016-06-13] MEDS: HYDROCODONE/APAP (5/325) TAB PO PRN ×2 (15:32→20:24)
[2016-06-14] MEDS: HYDROCODONE/APAP (5/325) TAB PO PRN ×2 (04:43→20:58)
[2016-06-14] MEDS: morphine 2 MG INJ IV PRN (04:47)
[2016-06-14 05:42] LABS: ADD SCAN DIFF NO
[2016-06-14 05:53] LABS: INR 1.13; PROTIME 14.5 Sec (12.2-14.2); PT RATIO 1.1
[2016-06-14 05:54] LABS: PARTIAL THROMBOPLASTIN TIME 30.2 Sec (25.0-35.0)
[2016-06-14 05:57] LABS: HEMATOCRIT 28.3 % (37.0-47.0); HEMOGLOBIN 8.8 g/dl (12.0-16.0); MEAN CORPUSCULAR HEMOGLOBIN 28.8 pg (29.0-33.0); MEAN CORPUSCULAR HGB CONC 31.1 g/dl (32.0-37.0); MEAN CORPUSCULAR VOLUME 92.5 fl (82.0-101.0); PLATELET COUNT 108 10^3/UL (140-415); RED BLOOD COUNT 3.06 10^6/ul (4.20-5.40); RED CELL DISTRIBUTION WIDTH 13.7 % (11.5-14.5); WHITE BLOOD COUNT 6.3 10^3/ul (4.8-10.8)
[2016-06-14 05:59] LABS: POTASSIUM 4.3 mmol/L (3.5-5.1)
[2016-06-14 06:01] LABS: CREATININE 0.75 mg/dl (0.44-1.00)
[2016-06-14 06:02] LABS: CALCIUM 8.4 mg/dl (8.4-10.2)
[2016-06-14 07:04] LABS: MEAN PLATELET VOLUME 12.7 fl (7.4-10.4)
[2016-06-14 08:39] VITALS: BP 114/64; RESP 18
[2016-06-14] MEDS: LINEZOLID 600 MG/D5W (PMX) 300 ML IVPB SCH (09:12)
[2016-06-14] MEDS: CITRIC ACID/NA CITRATE 30 ML CUP PO SCH (09:12)
[2016-06-14] MEDS: SENNA TAB PO SCH ×2 (09:12→20:46)
[2016-06-14] MEDS: TACROLIMUS 0.5 MG CAP PO SCH ×2 (09:12→20:46)
[2016-06-14] MEDS: FOLIC ACID 1 MG TAB PO SCH (09:12)
[2016-06-14] MEDS: predniSONE 5 MG TAB PO SCH (09:12)
[2016-06-14] MEDS: CLOPIDOGREL 75 MG TAB PO SCH (09:13)
[2016-06-14] MEDS: MYCOPHENOLATE 250 MG CAP PO SCH ×2 (09:13→20:44)
[2016-06-14] MEDS: CHOLECALCIFEROL 1,000 UNIT TAB PO SCH (09:13)
[2016-06-14] MEDS: BENAZEPRIL 10 MG TAB PO SCH ×2 (09:13→20:46)
[2016-06-14] MEDS: DILTIAZEM (CD) 180 MG CAP PO SCH (09:14)
[2016-06-14] MEDS: SOD CHLORIDE 0.9% 1,000 ML IV SCH ×2 (10:00→18:06)
[2016-06-14 10:25] LABS: EOSINOPHILS # 0.1 10^3/ul (0.0-0.5); LYMPHOCYTES # 0.9 10^3/ul (0.8-2.9); MONOCYTE # 0.3 10^3/ul (0.3-0.9); NEUTROPHIL # 5.1 10^3/ul (1.6-7.5)
--- NOTE | 2016-06-14 10:57 | CONS ---
Date/Time of Note Date/Time of Note DATE: 06/14/16 TIME: 10:53 Assessment/Plan Assessment/Plan Additional Assessment/Plan 1. Left lower extremity gangrene s/p LE angiogram - now s/p Amputation of left fifth gangrenous toe, Surgical debridement of gangrenous left fourth toe, Surgical debridement of gangrenous right fifth toe 2. Acute hyperkalemia- resolved 3. Acute kidney injury post angiogram due to contrast exposure with prerenal azotemia - now improved to normal with IVF hydration 3. Status post donor kidney transplant in 2009 at [facility], currently on immunosuppression with Prograf, CellCept, prednisone. 4. 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 History of hypertension. 6. History of diabetes mellitus. 7. History of previous left upper extremity arteriovenous fistula. PLAN: s/p Amputation of left fifth gangrenous toe, Surgical debridement of gangrenous left fourth toe, Surgical debridement of gangrenous right fifth toe Cr improved back to normal, electroytes stable, d/c bicitra continue Current immunosuppression with cellcept, prograf and prednisone Right lower quadrant Renal allograft US - normal will follow up Consultation Date/Type/Reason Admit Date/Time Jun 03, 2016 at 11:09 Initial Consult Date May Type of Consultation: NEPHROLOGY Reason for Consultation kidney transplant on immunosuppression, S/p podiatry surgery, TOMEKA post op , s/p LE angiogram Referring Provider: WILD DUARTE MD 24 HR Interval Summary Free Text/Dictation s/p Amputation of left fifth gangrenous toe, Surgical debridement of gangrenous left fourth toe, Surgical debridement of gangrenous right fifth toe pt creatinine improved to0.75 with IVF hydration, pain controlled,BP stable Exam/Review of Systems Vital Signs Vitals Vital Signs Date Time Temp Pulse Resp B/P Pulse Ox O2 Delivery O2 Flow Rate FiO2 06/14/16 08:39 98.8 73 18 114/64 100 06/13/16 09:40 Room Air Intake and Output 06/13/16 06/13/16 06/14/16 15:00 23:00 07:00 Intake Total 350 ml 888 ml 830 ml Output Total 5 ml 1200 ml Balance 345 ml -312 ml 830 ml Exam GENERAL: Awake, alert, in no distress. HEENT: Normal. Oropharynx clear. NECK: Supple, no JVD, no lymphadenopathy. LUNGS: Clear to auscultation. No crackles, no wheezes. HEART: S1, S2, with regular rhythm, no murmur. ABDOMEN: Soft, nontender, nondistended. Bowel sounds are present. EXTREMITIES: No clubbing, cyanosis, or edema. LLE dressing in place Results Result Diagram: 06/14/1615 06/14/16 0515 Results 24 hrs Laboratory Tests Test 06/14/16 05:15 Activated Partial Thromboplast Time 30.2 Anion Gap 14 Blood Urea Nitrogen 12 Calcium Level 8.4 Carbon Dioxide Level 25 Chloride Level 103 Creatinine 0.75 Eosinophils # 0.1 Eosinophils % 1.0 Glucose Level 96 Hematocrit 28.3 L Hemoglobin 8.8 L Hemoglobin A1c 5.3 INR International Normalized Ratio 1.13 Lymphocytes # 0.9 Lymphocytes % 14.0 L Mean Corpuscular Hemoglobin 28.8 L Mean Corpuscular Hemoglobin Concent 31.1 L Mean Corpuscular Volume 92.5 Mean Platelet Volume 12.7 #H Monocytes # 0.3 Monocytes % 4.0 Neutrophils # 5.1 Neutrophils % 81.0 H Platelet Count 108 L Potassium Level 4.3 Prothrombin Time 14.5 H Prothrombin Time Ratio 1.1 Red Blood Count 3.06 L Red Cell Distribution Width 13.7 Sodium Level 138 White Blood Count 6.3 # Medications Medications Current Medications Cholecalciferol (Vitamin D) 1,000 unit DAILY PO Last administered on 06/14/16 09:13; Admin Dose 1,000 UNIT; Start 06/04/16 at 09:00 Clopidogrel Bisulfate (plaVIX) 75 mg DAILY PO Last administered on 06/14/16 09 :13; Admin Dose 75 MG; Start 06/04/16 at 09:00 Diltiazem HCl (Cardizem Cd) 180 mg DAILY PO Last administered on 06/14/16 09: 14; Admin Dose 180 MG; Start 06/04/16 at 09:00 Folic Acid (Folic Acid) 1 mg DAILY PO Last administered on 06/14/16 09:12; Admin Dose 1 MG; Start 06/04/16 at 09:00 Mycophenolate Mofetil (Cellcept) 1,000 mg BID PO Last administered on 09:13; Admin Dose 1,000 MG; Start 06/03/16 at 21:00 Prednisone (Prednisone) 5 mg DAILY PO Last administered on 06/14/16 09:12; Admin Dose 5 MG; Start 06/04/16 at 09:00 Acetaminophen (Tylenol Tab) 650 mg Q4H PRN PO PAIN AND OR ELEVATED TEMP; Start 06/03/16 at 14:00 Acetaminophen/ Hydrocodone Bitart ([place] (5/325)) 1 tab Q4H PRN PO PAIN Last administered on 06/14/16 04:43; Admin Dose 1 TAB; Start 06/03/16 at 14:30 Morphine Sulfate (morphine) 2 mg Q4H PRN IV PAIN 7-10 Last administered on 06/14 04:47; Admin Dose 2 MG; Start 06/03/16 at 14:00 Tacrolimus 0.5 mg 0.5 mg Q12 PO Last administered on 06/14/16 09:12; Admin Dose 0.5 MG; Start 06/03/16 at 21:00 Linezolid (Zyvox 600mg/D5W (Pmx)) 300 ml @ 300 mls/hr Q12 IVPB Last administered on 06/14/16 09:12; Admin Dose 300 MLS/HR; Start 06/03/16 at 21:00 Senna 1 tab 1 tab BID PO Last administered on 06/14/16 09:12; Admin Dose 1 TAB ; Start 06/03/16 at 21:00 Sodium Chloride (NS) 1,000 ml @ 75 mls/hr [id number] IV Last administered on 06/13 20:25; Admin Dose 75 MLS/HR; Start 06/09/16 at 10:00 Ondansetron HCl (Zofran Inj) 4 mg Q4H PRN IV NAUSEA AND/OR VOMITING Last administered on 06/11/16 16:54; Admin Dose 4 MG; Start 06/10/16 at 17:30 Benazepril HCl (Lotensin) 10 mg BID PO Last administered on 06/14/16 09:13; Admin Dose 10 MG; Start 06/11/16 at 21:00 Citric Acid/ Sodium Citrate (Bicitra) 30 ml BID PO Last administered on 09:12; Admin Dose 30 ML; Start 06/12/16 at 21:00 Metoprolol Tartrate (Lopressor) 25 mg BID PO Last administered on 06/13/16t 20: 38; Admin Dose 25 MG; Start 06/12/16 at 21:00 RAMON KEMP MD Jun 14, 2016 10:57
[2016-06-14] MEDS: METOPROLOL 25 MG TAB PO SCH ×2 (11:20→20:45)
--- NOTE | 2016-06-14 12:08 | CONS ---
Date/Time of Note Date/Time of Note DATE: 06/14/16 TIME: 12:06 Assessment/Plan Assessment/Plan Additional Assessment/Plan 1. Preoperative evaluation prior to intervention on lower extremities for gangrenous changes of the toe- s/p therapy, tolearated well, surgical team follows 2. Abnormal electrocardiogram, assess for acute coronary syndrome.-negative troponin x 3/Echo 06/05 EF 60-65/mod-sev TR. No cardiac contraindication to proceeding to OR on current medications at moderate risk 3. Hypertension, mildly elevated-borderline Hotn- STABLE, will con't current RX 4. Status post renal transplant - avoid nephrotoxic meds, renal team follows 5. 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 Anemia, mild- H/H stable, no bleeding noted 7.TR-mod-sev by echo 8. s/p renal transplant Consultation Date/Type/Reason Admit Date/Time Jun 03, 2016 at 11:09 Type of Consultation: NEPHROLOGY Referring Provider: WILD DUARTE MD 24 HR Interval Summary Free Text/Dictation NO acute change.Off tele. No CP. No palpitations noted. ROS: No fever, no chills, no nausea, no vomiting, no diarrhea/constipation No recent weight changes No chest pain, no PND, no orthopnea No dizziness, blurred vision No thirst, no heat or cold intolerance Exam/Review of Systems Vital Signs Vitals Vital Signs Date Time Temp Pulse Resp B/P Pulse Ox O2 Delivery O2 Flow Rate FiO2 06/14/16 08:39 98.8 73 18 114/64 100 06/13/16 09:40 Room Air Intake and Output 06/13/16 06/13/16 06/14/16 15:00 23:00 07:00 Intake Total 350 ml 888 ml 830 ml Output Total 5 ml 1200 ml Balance 345 ml -312 ml 830 ml Exam General: WN/WD/NAD, AOx 3 HEENT: Unicetric/atraumatic/EOMI (follow commands) NECK: JVD elevated, no thyromegaly Lymph: no lymphadenopathy HEART: regular with no S3, II/ systolic murmur at apex LUNGS: Coarse sounds ABD: soft, NT, ND, +BS : Intact Neuro: non focal SKIN: chronic changes EXT: trace edema, post op changes /dressing Results Result Diagram: 06/14/1615 06/14/1615 Results 24 hrs Laboratory Tests Test 06/14/16 05:15 Activated Partial Thromboplast Time 30.2 Anion Gap 14 Blood Urea Nitrogen 12 Calcium Level 8.4 Carbon Dioxide Level 25 Chloride Level 103 Creatinine 0.75 Eosinophils # 0.1 Eosinophils % 1.0 Glucose Level 96 Hematocrit 28.3 L Hemoglobin 8.8 L Hemoglobin A1c 5.3 INR International Normalized Ratio 1.13 Lymphocytes # 0.9 Lymphocytes % 14.0 L Mean Corpuscular Hemoglobin 28.8 L Mean Corpuscular Hemoglobin Concent 31.1 L Mean Corpuscular Volume 92.5 Mean Platelet Volume 12.7 #H Monocytes # 0.3 Monocytes % 4.0 Neutrophils # 5.1 Neutrophils % 81.0 H Platelet Count 108 L Potassium Level 4.3 Prothrombin Time 14.5 H Prothrombin Time Ratio 1.1 Red Blood Count 3.06 L Red Cell Distribution Width 13.7 Sodium Level 138 White Blood Count 6.3 # Medications Medications Current Medications Cholecalciferol (Vitamin D) 1,000 unit DAILY PO Last administered on 06/14/16 09:13; Admin Dose 1,000 UNIT; Start 06/04/16 at 09:00 Clopidogrel Bisulfate (plaVIX) 75 mg DAILY PO Last administered on 06/14/16 09 :13; Admin Dose 75 MG; Start 06/04/16 at 09:00 Diltiazem HCl (Cardizem Cd) 180 mg DAILY PO Last administered on 06/14/16 09: 14; Admin Dose 180 MG; Start 06/04/16 at 09:00 Folic Acid (Folic Acid) 1 mg DAILY PO Last administered on 06/14/16 09:12; Admin Dose 1 MG; Start 06/04/16 at 09:00 Mycophenolate Mofetil (Cellcept) 1,000 mg BID PO Last administered on 09:13; Admin Dose 1,000 MG; Start 06/03/16 at 21:00 Prednisone (Prednisone) 5 mg DAILY PO Last administered on 06/14/16 09:12; Admin Dose 5 MG; Start 06/04/16 at 09:00 Acetaminophen (Tylenol Tab) 650 mg Q4H PRN PO PAIN AND OR ELEVATED TEMP; Start 06/03/16 at 14:00 Acetaminophen/ Hydrocodone Bitart ([place] (5/325)) 1 tab Q4H PRN PO PAIN Last administered on 06/14/16 04:43; Admin Dose 1 TAB; Start 06/03/16 at 14:30 Morphine Sulfate (morphine) 2 mg Q4H PRN IV PAIN 7-10 Last administered on 06/14 04:47; Admin Dose 2 MG; Start 06/03/16 at 14:00 Tacrolimus 0.5 mg 0.5 mg Q12 PO Last administered on 06/14/16 09:12; Admin Dose 0.5 MG; Start 06/03/16 at 21:00 Linezolid (Zyvox 600mg/D5W (Pmx)) 300 ml @ 300 mls/hr Q12 IVPB Last administered on 06/14/16 09:12; Admin Dose 300 MLS/HR; Start 06/03/16 at 21:00 Senna 1 tab 1 tab BID PO Last administered on 06/14/16 09:12; Admin Dose 1 TAB ; Start 06/03/16 at 21:00 Sodium Chloride (NS) 1,000 ml @ 75 mls/hr [id number] IV Last administered on 06/13 20:25; Admin Dose 75 MLS/HR; Start 06/09/16 at 10:00 Ondansetron HCl (Zofran Inj) 4 mg Q4H PRN IV NAUSEA AND/OR VOMITING Last administered on 06/11/16 16:54; Admin Dose 4 MG; Start 06/10/16 at 17:30 Benazepril HCl (Lotensin) 10 mg BID PO Last administered on 06/14/16 09:13; Admin Dose 10 MG; Start 06/11/16 at 21:00 Metoprolol Tartrate (Lopressor) 25 mg BID PO Last administered on 06/14/16 11: 20; Admin Dose 25 MG; Start 06/12/16 at 21:00 MIRELLA MOSER MD Jun 14, 2016 12:08
--- NOTE | 2016-06-14 13:05 | CONS ---
Date/Time of Note Date/Time of Note DATE: 06/14/16 TIME: 13:04 Assessment/Plan Assessment/Plan Chief Complaint/Hosp Course SUBJECTIVE: No events overnight. The patient is sitting comfortably in bed. No fevers. No n/v/d ANTIMICROBIALS: Zyvox. PHYSICAL EXAMINATION: GENERAL: Well-developed, fragile, elderly woman who is alert, in no distress. HEENT: Head atraumatic, normocephalic. Sclerae anicteric. Buccal mucosa pink. NECK: Supple, trachea midline. CHEST: Rise symmetrical. Breath sounds clear. HEART: S1, S2. ABDOMEN: Soft. Bowel tones present. EXTREMITIES: With bilateral lower extremity dressings intact ASSESSMENT: 1. Bilateral lower extremities gangrene, s/p amputation of left fifth gangrenous toe, surgical debridement of gangrenous left fourth toe and right fifth toe 2. Severe peripheral vascular disease status post angiogram with angioplasty. 3. History of kidney transplant, on Prograf, CellCept and prednisone. 4. Thrombocytopenia PLAN: The patient remains stable. Continue present care, change antibiotics to Daptomycin 2 to thrombocytopenia. Follow vascular/cardiology/renal recommendations. DW staff Problems: Consultation Date/Type/Reason Admit Date/Time Jun 03, 2016 at 11:09 Type of Consultation: ID Referring Provider: WILD DUARTE MD Exam/Review of Systems Vital Signs Vitals Vital Signs Date Time Temp Pulse Resp B/P Pulse Ox O2 Delivery O2 Flow Rate FiO2 06/14/16 08:39 98.8 73 18 114/64 100 06/13/16 09:40 Room Air Intake and Output 06/13/16 06/13/16 06/14/16 15:00 23:00 07:00 Intake Total 350 ml 888 ml 830 ml Output Total 5 ml 1200 ml Balance 345 ml -312 ml 830 ml Results Result Diagram: 06/14/16 0515 06/14/16 0515 Results 24 hrs Laboratory Tests Test 06/14/16 05:15 Activated Partial Thromboplast Time 30.2 Anion Gap 14 Blood Urea Nitrogen 12 Calcium Level 8.4 Carbon Dioxide Level 25 Chloride Level 103 Creatinine 0.75 Eosinophils # 0.1 Eosinophils % 1.0 Glucose Level 96 Hematocrit 28.3 L Hemoglobin 8.8 L Hemoglobin A1c 5.3 INR International Normalized Ratio 1.13 Lymphocytes # 0.9 Lymphocytes % 14.0 L Mean Corpuscular Hemoglobin 28.8 L Mean Corpuscular Hemoglobin Concent 31.1 L Mean Corpuscular Volume 92.5 Mean Platelet Volume 12.7 #H Monocytes # 0.3 Monocytes % 4.0 Neutrophils # 5.1 Neutrophils % 81.0 H Platelet Count 108 L Potassium Level 4.3 Prothrombin Time 14.5 H Prothrombin Time Ratio 1.1 Red Blood Count 3.06 L Red Cell Distribution Width 13.7 Sodium Level 138 White Blood Count 6.3 # Medications Medications Current Medications Cholecalciferol (Vitamin D) 1,000 unit DAILY PO Last administered on 06/14/16 09:13; Admin Dose 1,000 UNIT; Start 06/04/16 at 09:00 Clopidogrel Bisulfate (plaVIX) 75 mg DAILY PO Last administered on 06/14/16 09 :13; Admin Dose 75 MG; Start 06/04/16 at 09:00 Diltiazem HCl (Cardizem Cd) 180 mg DAILY PO Last administered on 06/14/16 09: 14; Admin Dose 180 MG; Start 06/04/16 at 09:00 Folic Acid (Folic Acid) 1 mg DAILY PO Last administered on 06/14/16 09:12; Admin Dose 1 MG; Start 06/04/16 at 09:00 Mycophenolate Mofetil (Cellcept) 1,000 mg BID PO Last administered on 09:13; Admin Dose 1,000 MG; Start 06/03/16 at 21:00 Prednisone (Prednisone) 5 mg DAILY PO Last administered on 06/14/16 09:12; Admin Dose 5 MG; Start 06/04/16 at 09:00 Acetaminophen (Tylenol Tab) 650 mg Q4H PRN PO PAIN AND OR ELEVATED TEMP; Start 06/03/16 at 14:00 Acetaminophen/ Hydrocodone Bitart ([place] (5/325)) 1 tab Q4H PRN PO PAIN Last administered on 06/14/16 04:43; Admin Dose 1 TAB; Start 06/03/16 at 14:30 Morphine Sulfate (morphine) 2 mg Q4H PRN IV PAIN 7-10 Last administered on 06/14 04:47; Admin Dose 2 MG; Start 06/03/16 at 14:00 Tacrolimus 0.5 mg 0.5 mg Q12 PO Last administered on 06/14/16 09:12; Admin Dose 0.5 MG; Start 06/03/16 at 21:00 Linezolid (Zyvox 600mg/D5W (Pmx)) 300 ml @ 300 mls/hr Q12 IVPB Last administered on 06/14/16 09:12; Admin Dose 300 MLS/HR; Start 06/03/16 at 21:00 Senna 1 tab 1 tab BID PO Last administered on 06/14/16 09:12; Admin Dose 1 TAB ; Start 06/03/16 at 21:00 Sodium Chloride (NS) 1,000 ml @ 75 mls/hr [id number] IV Last administered on 06/13 20:25; Admin Dose 75 MLS/HR; Start 06/09/16 at 10:00 Ondansetron HCl (Zofran Inj) 4 mg Q4H PRN IV NAUSEA AND/OR VOMITING Last administered on 06/11/16 16:54; Admin Dose 4 MG; Start 06/10/16 at 17:30 Benazepril HCl (Lotensin) 10 mg BID PO Last administered on 06/14/16 09:13; Admin Dose 10 MG; Start 06/11/16 at 21:00 Metoprolol Tartrate (Lopressor) 25 mg BID PO Last administered on 06/14/16 11: 20; Admin Dose 25 MG; Start 06/12/16 at 21:00 JACQUES HUERTA NP Jun 14, 2016 13:05
--- NOTE | 2016-06-14 15:40 | PN ---
Date/Time of Note Date/Time of Note DATE: 06/14/16 TIME: 15:35 Assessment/Plan VTE Prophylaxis VTE Prophylaxis Intervention: SCD's, other Lines/Catheters IV [facility] [place] Urinary Cath still in place: No Assessment/Plan Chief Complaint/Hosp Course ASSESSMENT AND PLAN: 1. Bilateral lower extremity atherosclerosis with gangrene. The patient is followed by Dr. Valencia in vascular surgery consultation. S/p bilateral lower extremity angiogram with angioplasty of multiple arteries on . Dr. Bowen is following from infectious disease standpoint. S/p amputation of left fifth gangrenous toe, surgical debridement of gangrenous left fourth toe and gangrenous right fifth toe by Dr Reynaga, podiatry 06/13. Continue current wound care per podiatry recommendations. 2. End-stage renal disease, status post renal transplant. Continue patient on prednisone and CellCept. Dr. Briscoe is following in nephrology consultation. Continue to monitor patient creatinine. IV hydration per nephrology. 3. Hypertension. Continue benazepril, Lopressor and diltiazem. Dr. Powell is following from cardiology standpoint. 4. 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 Continue Plavix. 5. Anemia of chronic kidney disease. Continue to monitor hemoglobin and hematocrit. 6. Severe peripheral arterial disease. Continue Plavix. Further recommendations based on clinical course. Plan of care discussed with Dr. Cohen. Problems: Subjective 24 Hr Interval Summary Free Text/Dictation Patient denies any nausea vomiting remains afebrile, complains of bilateral surgical incision pain, patient status post left fifth toe amputation. Exam/Review of Systems Vital Signs Vitals Vital Signs Date Time Temp Pulse Resp B/P Pulse Ox O2 Delivery O2 Flow Rate FiO2 06/14/16 08:39 98.8 73 18 114/64 100 06/13/16 09:40 Room Air Intake and Output 06/13/16 06/13/16 06/14/16 15:00 23:00 07:00 Intake Total 350 ml 888 ml 830 ml Output Total 5 ml 1200 ml Balance 345 ml -312 ml 830 ml Exam PHYSICAL ASSESSMENT: GENERAL: A well-developed, well-nourished female in no acute distress. HEENT: Head is atraumatic, normocephalic. Pupils equal, round, reactive to light and accommodation. Oral mucosa is pink, moist. NECK: Supple. No cervical lymphadenopathy, no thyromegaly. CHEST: Lungs clear bilaterally. There are no rhonchi, wheezes, rales noted. CARDIOVASCULAR: Normal S1, S2. The patient has systolic murmur III/. ABDOMEN: Round, soft, nondistended, nontender. Bowel sounds present. There is no guarding or rebound tenderness. EXTREMITIES: patient has multiple discolorations over bilateral thighs. Left fifth and fourth toes in the right fifth toe status post surgery with dry clean and intact dressing. SKIN: There is no rash, petechiae. NEUROLOGIC: The patient is awake, alert and oriented x4. Results Result Diagram: 06/14/16 0515 06/14/16 0515 Results 24 hrs Laboratory Tests Test 06/14/16 05:15 Activated Partial Thromboplast Time 30.2 Anion Gap 14 Blood Urea Nitrogen 12 Calcium Level 8.4 Carbon Dioxide Level 25 Chloride Level 103 Creatinine 0.75 Eosinophils # 0.1 Eosinophils % 1.0 Glucose Level 96 Hematocrit 28.3 L Hemoglobin 8.8 L Hemoglobin A1c 5.3 INR International Normalized Ratio 1.13 Lymphocytes # 0.9 Lymphocytes % 14.0 L Mean Corpuscular Hemoglobin 28.8 L Mean Corpuscular Hemoglobin Concent 31.1 L Mean Corpuscular Volume 92.5 Mean Platelet Volume 12.7 #H Monocytes # 0.3 Monocytes % 4.0 Neutrophils # 5.1 Neutrophils % 81.0 H Platelet Count 108 L Potassium Level 4.3 Prothrombin Time 14.5 H Prothrombin Time Ratio 1.1 Red Blood Count 3.06 L Red Cell Distribution Width 13.7 Sodium Level 138 White Blood Count 6.3 # Medications Medications Current Medications Cholecalciferol (Vitamin D) 1,000 unit DAILY PO Last administered on 06/14/16 09:13; Admin Dose 1,000 UNIT; Start 06/04/16 at 09:00 Clopidogrel Bisulfate (plaVIX) 75 mg DAILY PO Last administered on 06/14/16 09 :13; Admin Dose 75 MG; Start 06/04/16 at 09:00 Diltiazem HCl (Cardizem Cd) 180 mg DAILY PO Last administered on 06/14/16 09: 14; Admin Dose 180 MG; Start 06/04/16 at 09:00 Folic Acid (Folic Acid) 1 mg DAILY PO Last administered on 06/14/16 09:12; Admin Dose 1 MG; Start 06/04/16 at 09:00 Mycophenolate Mofetil (Cellcept) 1,000 mg BID PO Last administered on 09:13; Admin Dose 1,000 MG; Start 06/03/16 at 21:00 Prednisone (Prednisone) 5 mg DAILY PO Last administered on 06/14/16 09:12; Admin Dose 5 MG; Start 06/04/16 at 09:00 Acetaminophen (Tylenol Tab) 650 mg Q4H PRN PO PAIN AND OR ELEVATED TEMP; Start 06/03/16 at 14:00 Acetaminophen/ Hydrocodone Bitart ([place] (5/325)) 1 tab Q4H PRN PO PAIN Last administered on 06/14/16 04:43; Admin Dose 1 TAB; Start 06/03/16 at 14:30 Morphine Sulfate (morphine) 2 mg Q4H PRN IV PAIN 7-10 Last administered on 06/14 04:47; Admin Dose 2 MG; Start 06/03/16 at 14:00 Tacrolimus (Prograf) 0.5 mg Q12 PO Last administered on 06/14/16 09:12; Admin Dose 0.5 MG; Start 06/03/16 at 21:00 Senna 1 tab 1 tab BID PO Last administered on 06/14/16 09:12; Admin Dose 1 TAB ; Start 06/03/16 at 21:00 Sodium Chloride (NS) 1,000 ml @ 75 mls/hr [id number] IV Last administered on 06/13 20:25; Admin Dose 75 MLS/HR; Start 06/09/16 at 10:00 Ondansetron HCl (Zofran Inj) 4 mg Q4H PRN IV NAUSEA AND/OR VOMITING Last administered on 06/11/16 16:54; Admin Dose 4 MG; Start 06/10/16 at 17:30 Benazepril HCl (Lotensin) 10 mg BID PO Last administered on 06/14/16 09:13; Admin Dose 10 MG; Start 06/11/16 at 21:00 Metoprolol Tartrate 25 mg 25 mg BID PO Last administered on 06/14/16 11:20; Admin Dose 25 MG; Start 06/12/16 at 21:00 Daptomycin/Sodium Chloride ([place]/NS) 100 ml @ 200 mls/hr Q24H IVPB ; Start 06/14/16 at 16:00 LES GILLILAND Jun 14, 2016 15:40
[2016-06-14] MEDS: DAPTOMYCIN 320 MG in SOD CHLORIDE 0.9% 100 ML IVPB SCH (18:02)
[2016-06-14 20:00] VITALS: BP 183/83; PULSE 86
[2016-06-14 21:00] VITALS: BP 125/65; PULSE 65; RESP 18
[2016-06-15 06:17] LABS: ADD SCAN DIFF NO
[2016-06-15 06:33] LABS: ABNORMAL IP MESSAGE 1; BASOPHILS % 0.4 % (0.0-2.0); EOSINOPHILS # 0.1 10^3/ul (0.0-0.5); EOSINOPHILS % 1.4 % (0.0-7.0); HEMATOCRIT 28.6 % (37.0-47.0); HEMOGLOBIN 9.2 g/dl (12.0-16.0); LYMPHOCYTES # 0.9 10^3/ul (0.8-2.9); LYMPHOCYTES % 19.1 % (15.0-51.0); MEAN CORPUSCULAR HEMOGLOBIN 29.6 pg (29.0-33.0); MEAN CORPUSCULAR HGB CONC 32.2 g/dl (32.0-37.0); MEAN PLATELET VOLUME 12.6 fl (7.4-10.4); MONOCYTE # 0.5 10^3/ul (0.3-0.9); MONOCYTES % 10.9 % (0.0-11.0); NEUTROPHIL # 3.3 10^3/ul (1.6-7.5); PLATELET COUNT 95 10^3/UL (140-415); RED BLOOD COUNT 3.11 10^6/ul (4.20-5.40); RED CELL DISTRIBUTION WIDTH 13.5 % (11.5-14.5); WHITE BLOOD COUNT 4.9 10^3/ul (4.8-10.8)
[2016-06-15 06:54] LABS: POTASSIUM 4.6 mmol/L (3.5-5.1)
[2016-06-15 06:57] LABS: CREATININE 0.72 mg/dl (0.44-1.00)
[2016-06-15 06:58] LABS: CALCIUM 8.8 mg/dl (8.4-10.2)
[2016-06-15 07:40] VITALS: BP 160/77; RESP 18
[2016-06-15] MEDS: MYCOPHENOLATE 250 MG CAP PO SCH ×2 (08:31→21:26)
[2016-06-15] MEDS: FOLIC ACID 1 MG TAB PO SCH (08:32)
[2016-06-15] MEDS: TACROLIMUS 0.5 MG CAP PO SCH ×2 (08:33→21:26)
[2016-06-15] MEDS: SENNA TAB PO SCH ×2 (08:33→21:26)
[2016-06-15] MEDS: BENAZEPRIL 10 MG TAB PO SCH ×2 (08:33→21:29)
[2016-06-15] MEDS: CLOPIDOGREL 75 MG TAB PO SCH (08:33)
[2016-06-15] MEDS: predniSONE 5 MG TAB PO SCH (08:33)
[2016-06-15] MEDS: CHOLECALCIFEROL 1,000 UNIT TAB PO SCH (08:34)
[2016-06-15] MEDS: METOPROLOL 25 MG TAB PO SCH ×2 (08:34→21:29)
[2016-06-15] MEDS: DILTIAZEM (CD) 180 MG CAP PO SCH (09:37)
[2016-06-15] MEDS: HYDROCODONE/APAP (5/325) TAB PO PRN ×2 (09:38→21:34)
[2016-06-15] MEDS: SOD CHLORIDE 0.9% 1,000 ML IV SCH (09:39)
--- NOTE | 2016-06-15 12:34 | PN ---
Date/Time of Note Date/Time of Note DATE: 06/15/16 TIME: 12:31 Assessment/Plan VTE Prophylaxis VTE Prophylaxis Intervention: other Lines/Catheters IV Catheter Type (from [facility]): [place] [facility] Urinary Cath still in place: No Assessment/Plan Assessment/Plan 1. Bilateral lower extremity atherosclerosis with gangrene. The patient is followed by Dr. Valencia in vascular surgery consultation. S/p bilateral lower extremity angiogram with angioplasty of multiple arteries on . Dr. Bowen is following from infectious disease standpoint. S/p amputation of left fifth gangrenous toe, surgical debridement of gangrenous left fourth toe and gangrenous right fifth toe by Dr Reynaga, podiatry 06/13. Continue current wound care per podiatry recommendations. 2. End-stage renal disease, status post renal transplant. Continue patient on prednisone and CellCept. Dr. Briscoe is following in nephrology consultation. Continue to monitor patient creatinine. IV hydration per nephrology. 3. Hypertension. Continue benazepril, Lopressor and diltiazem. Dr. Powell is following from cardiology standpoint. 4. 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 Continue Plavix. 5. Anemia of chronic kidney disease. Continue to monitor hemoglobin and hematocrit. 6. Severe peripheral arterial disease. Continue Plavix. Further recommendations based on clinical course. Plan of care discussed with Dr. Cohen. Exam/Review of Systems Vital Signs Vitals Vital Signs Date Time Temp Pulse Resp B/P Pulse Ox O2 Delivery O2 Flow Rate FiO2 06/15/16 07:40 98.6 78 18 160/77 99 06/14/16 21:00 Room Air Intake and Output 06/14/16 06/14/16 06/15/16 15:00 23:00 07:00 Intake Total 300 ml 1140 ml 825 ml Balance 300 ml 1140 ml 825 ml Exam Constitutional: alert, oriented Psych: no complaints Head: atraumatic Eyes: EOMI, nl sclera ENMT: nl external ears & nose, nl lips & teeth Neck: non-tender Respiratory: clear to auscultation Cardiovascular: nl pulses Gastrointestinal: non-tender, soft Musculoskeletal: nl extremities to inspection Extremities: normal pulses Neurological: nl mental status Skin: nl turgor Lymph: nontender Results Result Diagram: 06/15/16 0506/15/16 0520 Results 24 hrs Laboratory Tests Test 06/15/16 05:20 Anion Gap 16 Basophils # 0.0 Basophils % 0.4 Blood Urea Nitrogen 12 Calcium Level 8.8 Carbon Dioxide Level 24 Chloride Level 106 Creatine Kinase 62 Creatinine 0.72 Eosinophils # 0.1 Eosinophils % 1.4 Glucose Level 83 Hematocrit 28.6 L Hemoglobin 9.2 L Lymphocytes # 0.9 Lymphocytes % 19.1 Mean Corpuscular Hemoglobin 29.6 Mean Corpuscular Hemoglobin Concent 32.2 Mean Corpuscular Volume 92.0 Mean Platelet Volume 12.6 H Monocytes # 0.5 Monocytes % 10.9 Neutrophils # 3.3 Neutrophils % 68.0 Nucleated Red Blood Cells # 0.0 Nucleated Red Blood Cells % 0.0 Platelet Count 95 L Potassium Level 4.6 Red Blood Count 3.11 L Red Cell Distribution Width 13.5 Sodium Level 141 White Blood Count 4.9 # Medications Medications Current Medications Cholecalciferol (Vitamin D) 1,000 unit DAILY PO Last administered on 06/15/16 08:34; Admin Dose 1,000 UNIT; Start 06/04/16 at 09:00 Clopidogrel Bisulfate (plaVIX) 75 mg DAILY PO Last administered on 06/15/16 08 :33; Admin Dose 75 MG; Start 06/04/16 at 09:00 Diltiazem HCl (Cardizem Cd) 180 mg DAILY PO Last administered on 06/15/16 09: 37; Admin Dose 180 MG; Start 06/04/16 at 09:00 Folic Acid (Folic Acid) 1 mg DAILY PO Last administered on 06/15/16 08:32; Admin Dose 1 MG; Start 06/04/16 at 09:00 Mycophenolate Mofetil (Cellcept) 1,000 mg BID PO Last administered on 08:31; Admin Dose 1,000 MG; Start 06/03/16 at 21:00 Prednisone (Prednisone) 5 mg DAILY PO Last administered on 06/15/16 08:33; Admin Dose 5 MG; Start 06/04/16 at 09:00 Acetaminophen (Tylenol Tab) 650 mg Q4H PRN PO PAIN AND OR ELEVATED TEMP; Start 06/03/16 at 14:00 Acetaminophen/ Hydrocodone Bitart ([place] (5/325)) 1 tab Q4H PRN PO PAIN Last administered on 06/15/16 09:38; Admin Dose 1 TAB; Start 06/03/16 at 14:30 Tacrolimus (Prograf) 0.5 mg Q12 PO Last administered on 06/15/16 08:33; Admin Dose 0.5 MG; Start 06/03/16 at 21:00 Senna 1 tab 1 tab BID PO Last administered on 06/15/16 08:33; Admin Dose 1 TAB ; Start 06/03/16 at 21:00 Sodium Chloride (NS) 1,000 ml @ 75 mls/hr [id number] IV Last administered on 06/15 09:39; Admin Dose 75 MLS/HR; Start 06/09/16 at 10:00 Ondansetron HCl (Zofran Inj) 4 mg Q4H PRN IV NAUSEA AND/OR VOMITING Last administered on 06/11/16 16:54; Admin Dose 4 MG; Start 06/10/16 at 17:30 Benazepril HCl (Lotensin) 10 mg BID PO Last administered on 06/15/16 08:33; Admin Dose 10 MG; Start 06/11/16 at 21:00 Metoprolol Tartrate 25 mg 25 mg BID PO Last administered on 06/15/16 08:34; Admin Dose 25 MG; Start 06/12/16 at 21:00 Daptomycin/Sodium Chloride (Cubicin/NS) 100 ml @ 200 mls/hr Q24H IVPB Last administered on 06/14/16 18:02; Admin Dose 200 MLS/HR; Start 06/14/16 at 16:00 Morphine Sulfate (morphine) 2 mg Q3H PRN IV PAIN 7-10; Start 06/14/16 at 18:00 TIM BENNETT Jun 15, 2016 12:34
--- NOTE | 2016-06-15 12:39 | CONS ---
Date/Time of Note Date/Time of Note DATE: 06/15/16 TIME: 12:37 Assessment/Plan Assessment/Plan Additional Assessment/Plan 1. Left lower extremity gangrene s/p LE angiogram - now s/p Amputation of left fifth gangrenous toe, Surgical debridement of gangrenous left fourth toe, Surgical debridement of gangrenous right fifth toe 2. Acute hyperkalemia- resolved 3. Acute kidney injury post angiogram due to contrast exposure with prerenal azotemia - now improved to normal with IVF hydration 3. Status post donor kidney transplant in 2009 at [facility], currently on immunosuppression with Prograf, CellCept, prednisone. 4. 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 History of hypertension. 6. History of diabetes mellitus. 7. History of previous left upper extremity arteriovenous fistula. PLAN: s/p Amputation of left fifth gangrenous toe, Surgical debridement of gangrenous left fourth toe, Surgical debridement of gangrenous right fifth toe Cr improved back to normal, electroytes stable, d/c bicitra ,d/c IV fluids continue Current immunosuppression with cellcept, prograf and prednisone Right lower quadrant Renal allograft US - normal will follow up Consultation Date/Type/Reason Admit Date/Time Jun 03, 2016 at 11:09 Initial Consult Date May Type of Consultation: NEPHROLOGY Reason for Consultation Kidney transplant on immunosupppressin, Post Contrast TOMEKA,S/p foot amputation Referring Provider: WILD DUARTE MD 24 HR Interval Summary Free Text/Dictation Cr normal now, pt stable Exam/Review of Systems Vital Signs Vitals Vital Signs Date Time Temp Pulse Resp B/P Pulse Ox O2 Delivery O2 Flow Rate FiO2 06/15/16 07:40 98.6 78 18 160/77 99 06/14/16 21:00 Room Air Intake and Output 06/14/16 06/14/16 06/15/16 15:00 23:00 07:00 Intake Total 300 ml 1140 ml 825 ml Balance 300 ml 1140 ml 825 ml Exam GENERAL: Awake, alert, in no distress. HEENT: Normal. Oropharynx clear. NECK: Supple, no JVD, no lymphadenopathy. LUNGS: Clear to auscultation. No crackles, no wheezes. HEART: S1, S2, with regular rhythm, no murmur. ABDOMEN: Soft, nontender, nondistended. Bowel sounds are present. EXTREMITIES: No clubbing, cyanosis, or edema. LLE dressing in place Results Result Diagram: 06/15/16 0520 06/15/16 0520 Results 24 hrs Laboratory Tests Test 06/15/16 05:20 Anion Gap 16 Basophils # 0.0 Basophils % 0.4 Blood Urea Nitrogen 12 Calcium Level 8.8 Carbon Dioxide Level 24 Chloride Level 106 Creatine Kinase 62 Creatinine 0.72 Eosinophils # 0.1 Eosinophils % 1.4 Glucose Level 83 Hematocrit 28.6 L Hemoglobin 9.2 L Lymphocytes # 0.9 Lymphocytes % 19.1 Mean Corpuscular Hemoglobin 29.6 Mean Corpuscular Hemoglobin Concent 32.2 Mean Corpuscular Volume 92.0 Mean Platelet Volume 12.6 H Monocytes # 0.5 Monocytes % 10.9 Neutrophils # 3.3 Neutrophils % 68.0 Nucleated Red Blood Cells # 0.0 Nucleated Red Blood Cells % 0.0 Platelet Count 95 L Potassium Level 4.6 Red Blood Count 3.11 L Red Cell Distribution Width 13.5 Sodium Level 141 White Blood Count 4.9 # Medications Medications Current Medications Cholecalciferol (Vitamin D) 1,000 unit DAILY PO Last administered on 06/15/16 08:34; Admin Dose 1,000 UNIT; Start 06/04/16 at 09:00 Clopidogrel Bisulfate (plaVIX) 75 mg DAILY PO Last administered on 06/15/16 08 :33; Admin Dose 75 MG; Start 06/04/16 at 09:00 Diltiazem HCl (Cardizem Cd) 180 mg DAILY PO Last administered on 06/15/16 09: 37; Admin Dose 180 MG; Start 06/04/16 at 09:00 Folic Acid (Folic Acid) 1 mg DAILY PO Last administered on 06/15/16 08:32; Admin Dose 1 MG; Start 06/04/16 at 09:00 Mycophenolate Mofetil (Cellcept) 1,000 mg BID PO Last administered on 08:31; Admin Dose 1,000 MG; Start 06/03/16 at 21:00 Prednisone (Prednisone) 5 mg DAILY PO Last administered on 06/15/16 08:33; Admin Dose 5 MG; Start 06/04/16 at 09:00 Acetaminophen (Tylenol Tab) 650 mg Q4H PRN PO PAIN AND OR ELEVATED TEMP; Start 06/03/16 at 14:00 Acetaminophen/ Hydrocodone Bitart ([place] (5/325)) 1 tab Q4H PRN PO PAIN Last administered on 06/15/16 09:38; Admin Dose 1 TAB; Start 06/03/16 at 14:30 Tacrolimus (Prograf) 0.5 mg Q12 PO Last administered on 06/15/16 08:33; Admin Dose 0.5 MG; Start 06/03/16 at 21:00 Senna (Senokot) 1 tab BID PO Last administered on 06/15/16 08:33; Admin Dose 1 TAB; Start 06/03/16 at 21:00 Ondansetron HCl (Zofran Inj) 4 mg Q4H PRN IV NAUSEA AND/OR VOMITING Last administered on 06/11/16 16:54; Admin Dose 4 MG; Start 06/10/16 at 17:30 Benazepril HCl (Lotensin) 10 mg BID PO Last administered on 06/15/16 08:33; Admin Dose 10 MG; Start 06/11/16 at 21:00 Metoprolol Tartrate 25 mg 25 mg BID PO Last administered on 06/15/16 08:34; Admin Dose 25 MG; Start 06/12/16 at 21:00 Daptomycin/Sodium Chloride (Cubicin/NS) 100 ml @ 200 mls/hr Q24H IVPB Last administered on 06/14/16 18:02; Admin Dose 200 MLS/HR; Start 06/14/16 at 16:00 Morphine Sulfate (morphine) 2 mg Q3H PRN IV PAIN 7-10; Start 06/14/16 at 18:00 RAMON KEMP MD Jun 15, 2016 12:39
--- NOTE | 2016-06-15 14:15 | CONS ---
Date/Time of Note Date/Time of Note DATE: 06/15/16 TIME: 14:13 Assessment/Plan Assessment/Plan Additional Assessment/Plan 1. Preoperative evaluation prior to intervention on lower extremities for gangrenous changes of the toe- s/p therapy, tolerated well, surgical team follows - PAIN CONTROLLED. 2. Abnormal electrocardiogram, assess for acute coronary syndrome.-negative troponin x 3/Echo 06/05 EF 60-65/mod-sev TR. No cardiac contraindication to proceeding to OR on current medications at moderate risk - stable now 3. Hypertension, mildly elevated-borderline Hotn- STABLE, will con't current RX - con't MED RX 4. Status post renal transplant - avoid nephrotoxic meds, renal team follows 5. Peripheral arterial disease with lower extremity gangrenous changes and nonhealing wound s/p peripheral angio/[employer] 06/10/16 and now POD#0 s/p toe debridement 6. Anemia, mild- H/H stable, no bleeding noted 7.TR-mod-sev by echo 8. s/p renal transplant Consultation Date/Type/Reason Admit Date/Time Jun 03, 2016 at 11:09 Type of Consultation: NEPHROLOGY Referring Provider: WILD DUARTE MD 24 HR Interval Summary Free Text/Dictation No acute change - con't pain Rx and HTN therapy.Off tele now. ROS: No fever, no chills, no nausea, no vomiting, no diarrhea/constipation No recent weight changes No chest pain, no PND, no orthopnea No dizziness, blurred vision No thirst, no heat or cold intolerance Exam/Review of Systems Vital Signs Vitals Vital Signs Date Time Temp Pulse Resp B/P Pulse Ox O2 Delivery O2 Flow Rate FiO2 06/15/16 07:40 98.6 78 18 160/77 99 06/14/16 21:00 Room Air Intake and Output 06/14/16 06/14/16 06/15/16 15:00 23:00 07:00 Intake Total 300 ml 1140 ml 825 ml Balance 300 ml 1140 ml 825 ml Exam General: WN/WD/NAD, AOx 2-3 HEENT: Unicetric/atraumatic/EOMI (follows commands) NECK: JVD elevated, no thyromegaly Lymph: no lymphadenopathy HEART: regular with no S3, II/ systolic murmur at apex LUNGS: Coarse sounds ABD: soft, NT, ND, +BS : Intact Neuro: non focal SKIN: chronic changes EXT: trace edema, PVD, amputation Results Result Diagram: 06/15/1620 06/15/16 0520 Results 24 hrs Laboratory Tests Test 06/15/16 05:20 Anion Gap 16 Basophils # 0.0 Basophils % 0.4 Blood Urea Nitrogen 12 Calcium Level 8.8 Carbon Dioxide Level 24 Chloride Level 106 Creatine Kinase 62 Creatinine 0.72 Eosinophils # 0.1 Eosinophils % 1.4 Glucose Level 83 Hematocrit 28.6 L Hemoglobin 9.2 L Lymphocytes # 0.9 Lymphocytes % 19.1 Mean Corpuscular Hemoglobin 29.6 Mean Corpuscular Hemoglobin Concent 32.2 Mean Corpuscular Volume 92.0 Mean Platelet Volume 12.6 H Monocytes # 0.5 Monocytes % 10.9 Neutrophils # 3.3 Neutrophils % 68.0 Nucleated Red Blood Cells # 0.0 Nucleated Red Blood Cells % 0.0 Platelet Count 95 L Potassium Level 4.6 Red Blood Count 3.11 L Red Cell Distribution Width 13.5 Sodium Level 141 White Blood Count 4.9 # Medications Medications Current Medications Cholecalciferol (Vitamin D) 1,000 unit DAILY PO Last administered on 06/15/16 08:34; Admin Dose 1,000 UNIT; Start 06/04/16 at 09:00 Clopidogrel Bisulfate (plaVIX) 75 mg DAILY PO Last administered on 06/15/16 08 :33; Admin Dose 75 MG; Start 06/04/16 at 09:00 Diltiazem HCl (Cardizem Cd) 180 mg DAILY PO Last administered on 06/15/16 09: 37; Admin Dose 180 MG; Start 06/04/16 at 09:00 Folic Acid (Folic Acid) 1 mg DAILY PO Last administered on 06/15/16 08:32; Admin Dose 1 MG; Start 06/04/16 at 09:00 Mycophenolate Mofetil (Cellcept) 1,000 mg BID PO Last administered on 08:31; Admin Dose 1,000 MG; Start 06/03/16 at 21:00 Prednisone (Prednisone) 5 mg DAILY PO Last administered on 06/15/16 08:33; Admin Dose 5 MG; Start 06/04/16 at 09:00 Acetaminophen (Tylenol Tab) 650 mg Q4H PRN PO PAIN AND OR ELEVATED TEMP; Start 06/03/16 at 14:00 Acetaminophen/ Hydrocodone Bitart ([place] (5/325)) 1 tab Q4H PRN PO PAIN Last administered on 06/15/16 09:38; Admin Dose 1 TAB; Start 06/03/16 at 14:30 Tacrolimus (Prograf) 0.5 mg Q12 PO Last administered on 06/15/16 08:33; Admin Dose 0.5 MG; Start 06/03/16 at 21:00 Senna (Senokot) 1 tab BID PO Last administered on 06/15/16 08:33; Admin Dose 1 TAB; Start 06/03/16 at 21:00 Ondansetron HCl (Zofran Inj) 4 mg Q4H PRN IV NAUSEA AND/OR VOMITING Last administered on 06/11/16 16:54; Admin Dose 4 MG; Start 06/10/16 at 17:30 Benazepril HCl (Lotensin) 10 mg BID PO Last administered on 06/15/16 08:33; Admin Dose 10 MG; Start 06/11/16 at 21:00 Metoprolol Tartrate 25 mg 25 mg BID PO Last administered on 06/15/16 08:34; Admin Dose 25 MG; Start 06/12/16 at 21:00 Daptomycin/Sodium Chloride (Cubicin/NS) 100 ml @ 200 mls/hr Q24H IVPB Last administered on 06/14/16 18:02; Admin Dose 200 MLS/HR; Start 06/14/16 at 16:00 Morphine Sulfate (morphine) 2 mg Q3H PRN IV PAIN 7-10; Start 06/14/16 at 18:00 MIRELLA MOSER MD Jun 15, 2016 14:15
--- NOTE | 2016-06-15 14:24 | CONS ---
Date/Time of Note Date/Time of Note DATE: 06/15/16 TIME: 14:23 Assessment/Plan Assessment/Plan Chief Complaint/Hosp Course ID PROGRESS NOTE CURRENT ABX=> DAPTO s/p Zyvox POD #2 => S/p 06/13/16 Operation Performed Amputation of left fifth gangrenous toe Surgical debridement of gangrenous left fourth toe Surgical debridement of gangrenous right fifth toe 24H INTERVAL SUMMARY * Sleeping, awakens, no new issues * Afebrile, VSS, NAD PHYSICAL EXAMINATION: GENERAL: VSS, NAD HEENT: Unremarkable -- NECK: Supple, trachea midline. CHEST: Rise symmetrical, without dyspnea on observation HEART: Pulse RRR ABDOMEN: Soft, benign EXTREMITIES: Warm -- gangrenous toes ID ASSESSMENT 61 yo F admit with: 1. Bilateral lower extremities gangrene, s/p 06/13/16 amputation of left fifth gangrenous toe, surgical debridement of gangrenous left fourth toe and right fifth toe 2. Severe peripheral vascular disease status post angiogram with angioplasty 3. History of kidney transplant, on Prograf, CellCept and prednisone. 4. Thrombocytopenia (- )MRSA Nares screening last admit 10/31/15 INVASIVES: PIV, ABX ALLERGY: KNDA CURRENT ABX: =>DAPTO IV s/p Zyvox ID RECOMMENDATIONS 1. Continue current ABX 2. Await further recs consultants . Problems: Consultation Date/Type/Reason Admit Date/Time Jun 03, 2016 at 11:09 Initial Consult Date 06/11/16 Type of Consultation: ID Referring Provider: WILD DUARTE MD Exam/Review of Systems Vital Signs Vitals Vital Signs Date Time Temp Pulse Resp B/P Pulse Ox O2 Delivery O2 Flow Rate FiO2 06/15/16 07:40 98.6 78 18 160/77 99 06/14/16 21:00 Room Air Intake and Output 06/14/16 06/14/16 06/15/16 15:00 23:00 07:00 Intake Total 300 ml 1140 ml 825 ml Balance 300 ml 1140 ml 825 ml Results Result Diagram: 06/15/16 0520 06/15/16 0520 Results 24 hrs Laboratory Tests Test 06/15/16 05:20 Anion Gap 16 Basophils # 0.0 Basophils % 0.4 Blood Urea Nitrogen 12 Calcium Level 8.8 Carbon Dioxide Level 24 Chloride Level 106 Creatine Kinase 62 Creatinine 0.72 Eosinophils # 0.1 Eosinophils % 1.4 Glucose Level 83 Hematocrit 28.6 L Hemoglobin 9.2 L Lymphocytes # 0.9 Lymphocytes % 19.1 Mean Corpuscular Hemoglobin 29.6 Mean Corpuscular Hemoglobin Concent 32.2 Mean Corpuscular Volume 92.0 Mean Platelet Volume 12.6 H Monocytes # 0.5 Monocytes % 10.9 Neutrophils # 3.3 Neutrophils % 68.0 Nucleated Red Blood Cells # 0.0 Nucleated Red Blood Cells % 0.0 Platelet Count 95 L Potassium Level 4.6 Red Blood Count 3.11 L Red Cell Distribution Width 13.5 Sodium Level 141 White Blood Count 4.9 # Medications Medications Current Medications Cholecalciferol (Vitamin D) 1,000 unit DAILY PO Last administered on 06/15/16 08:34; Admin Dose 1,000 UNIT; Start 06/04/16 at 09:00 Clopidogrel Bisulfate (plaVIX) 75 mg DAILY PO Last administered on 06/15/16 08 :33; Admin Dose 75 MG; Start 06/04/16 at 09:00 Diltiazem HCl (Cardizem Cd) 180 mg DAILY PO Last administered on 06/15/16 09: 37; Admin Dose 180 MG; Start 06/04/16 at 09:00 Folic Acid (Folic Acid) 1 mg DAILY PO Last administered on 06/15/16 08:32; Admin Dose 1 MG; Start 06/04/16 at 09:00 Mycophenolate Mofetil (Cellcept) 1,000 mg BID PO Last administered on 08:31; Admin Dose 1,000 MG; Start 06/03/16 at 21:00 Prednisone (Prednisone) 5 mg DAILY PO Last administered on 06/15/16 08:33; Admin Dose 5 MG; Start 06/04/16 at 09:00 Acetaminophen (Tylenol Tab) 650 mg Q4H PRN PO PAIN AND OR ELEVATED TEMP; Start 06/03/16 at 14:00 Acetaminophen/ Hydrocodone Bitart ([place] (5/325)) 1 tab Q4H PRN PO PAIN Last administered on 06/15/16 09:38; Admin Dose 1 TAB; Start 06/03/16 at 14:30 Tacrolimus (Prograf) 0.5 mg Q12 PO Last administered on 06/15/16 08:33; Admin Dose 0.5 MG; Start 06/03/16 at 21:00 Senna (Senokot) 1 tab BID PO Last administered on 06/15/16 08:33; Admin Dose 1 TAB; Start 06/03/16 at 21:00 Ondansetron HCl (Zofran Inj) 4 mg Q4H PRN IV NAUSEA AND/OR VOMITING Last administered on 06/11/16 16:54; Admin Dose 4 MG; Start 06/10/16 at 17:30 Benazepril HCl (Lotensin) 10 mg BID PO Last administered on 06/15/16 08:33; Admin Dose 10 MG; Start 06/11/16 at 21:00 Metoprolol Tartrate 25 mg 25 mg BID PO Last administered on 06/15/16 08:34; Admin Dose 25 MG; Start 06/12/16 at 21:00 Daptomycin/Sodium Chloride (Cubicin/NS) 100 ml @ 200 mls/hr Q24H IVPB Last administered on 06/14/16 18:02; Admin Dose 200 MLS/HR; Start 06/14/16 at 16:00 Morphine Sulfate (morphine) 2 mg Q3H PRN IV PAIN 7-10; Start 06/14/16 at 18:00 Hydralazine HCl (Apresoline) 50 mg TID PO ; Start 06/15/16 at 21:00; Status HAMZAH BHATIA NP Jun 15, 2016 14:24
[2016-06-15] MEDS: DAPTOMYCIN 320 MG in SOD CHLORIDE 0.9% 100 ML IVPB SCH (16:08)
[2016-06-15 19:43] VITALS: BP 177/80; RESP 18
[2016-06-16 00:01] VITALS: BP 155/74; PULSE 69
[2016-06-16 05:48] LABS: ADD SCAN DIFF NO
[2016-06-16 05:58] LABS: POTASSIUM 4.1 mmol/L (3.5-5.1)
[2016-06-16 06:00] LABS: CREATININE 0.75 mg/dl (0.44-1.00)
[2016-06-16 06:01] LABS: CALCIUM 8.7 mg/dl (8.4-10.2)
[2016-06-16 06:07] LABS: ABNORMAL IP MESSAGE 1; BASOPHILS % 0.2 % (0.0-2.0); EOSINOPHILS # 0.1 10^3/ul (0.0-0.5); HEMATOCRIT 26.8 % (37.0-47.0); HEMOGLOBIN 8.5 g/dl (12.0-16.0); LYMPHOCYTES # 0.8 10^3/ul (0.8-2.9); LYMPHOCYTES % 16.2 % (15.0-51.0); MEAN CORPUSCULAR HEMOGLOBIN 28.9 pg (29.0-33.0); MEAN CORPUSCULAR HGB CONC 31.7 g/dl (32.0-37.0); MEAN CORPUSCULAR VOLUME 91.2 fl (82.0-101.0); MEAN PLATELET VOLUME 12.3 fl (7.4-10.4); MONOCYTE # 0.7 10^3/ul (0.3-0.9); MONOCYTES % 14.3 % (0.0-11.0); NEUTROPHIL # 3.4 10^3/ul (1.6-7.5); NEUTROPHILS % 67.1 % (39.0-77.0); PLATELET COUNT 83 10^3/UL (140-415); RED BLOOD COUNT 2.94 10^6/ul (4.20-5.40); RED CELL DISTRIBUTION WIDTH 13.2 % (11.5-14.5); WHITE BLOOD COUNT 5.1 10^3/ul (4.8-10.8)
[2016-06-16 07:50] VITALS: BP 152/74; RESP 18
[2016-06-16 10:31] VITALS: BP 199/85; PULSE 69
[2016-06-16] MEDS: BENAZEPRIL 10 MG TAB PO SCH ×2 (10:43→20:11)
[2016-06-16] MEDS: DILTIAZEM (CD) 180 MG CAP PO SCH (10:43)
[2016-06-16] MEDS: CHOLECALCIFEROL 1,000 UNIT TAB PO SCH (10:43)
[2016-06-16] MEDS: MYCOPHENOLATE 250 MG CAP PO SCH ×2 (10:43→20:11)
[2016-06-16] MEDS: FOLIC ACID 1 MG TAB PO SCH (10:43)
[2016-06-16] MEDS: TACROLIMUS 0.5 MG CAP PO SCH ×2 (10:44→20:10)
[2016-06-16] MEDS: SENNA TAB PO SCH ×2 (10:44→20:11)
[2016-06-16] MEDS: CLOPIDOGREL 75 MG TAB PO SCH (10:44)
[2016-06-16] MEDS: HYDROCODONE/APAP (5/325) TAB PO PRN ×2 (10:44→21:08)
[2016-06-16] MEDS: predniSONE 5 MG TAB PO SCH (10:44)
[2016-06-16] MEDS: METOPROLOL 25 MG TAB PO SCH ×2 (10:45→20:10)
--- NOTE | 2016-06-16 11:22 | PN ---
Date/Time of Note Date/Time of Note DATE: 06/16/16 TIME: 11:14 Assessment/Plan VTE Prophylaxis VTE Prophylaxis Intervention: LMWH Lines/Catheters [facility] Saline Lock Urinary Cath still in place: No Assessment/Plan Assessment/Plan 1. Bilateral lower extremity atherosclerosis with gangrene. The patient is followed by Dr. Valencia in vascular surgery consultation. S/p bilateral lower extremity angiogram with angioplasty of multiple arteries on . Dr. Bowen is following from infectious disease standpoint. S/p amputation of left fifth gangrenous toe, surgical debridement of gangrenous left fourth toe and gangrenous right fifth toe by Dr Reynaga, podiatry . Continue current wound care per podiatry recommendations. 2. End-stage renal disease, status post renal transplant. Continue patient on prednisone and CellCept. Dr. Briscoe is following in nephrology consultation. Continue to monitor patient creatinine. IV hydration per nephrology. 3. Hypertension. Continue benazepril, Lopressor and diltiazem. Dr. Powell is following from cardiology standpoint. 4. 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 Continue Plavix. 5. Anemia of chronic kidney disease. Continue to monitor hemoglobin and hematocrit. 6. Severe peripheral arterial disease. Continue Plavix. Further recommendations based on clinical course. Plan of care discussed with Dr. Cohen. Subjective 24 Hr Interval Summary Eyes: no complaints ENT: no complaints Respiratory: no complaints Cardiovascular: no complaints Gastrointestinal: no complaints Genitourinary: no complaints Musculoskeletal: bone/joint pain Skin: no complaints Neurologic: no complaints Endocrine: no complaints Lymphatic: no complaints Psychological: no complaints Exam/Review of Systems Vital Signs Vitals Vital Signs Date Time Temp Pulse Resp B/P Pulse Ox O2 Delivery O2 Flow Rate FiO2 06/16/16 10:31 69 199/85 06/16/16 07:50 98.6 18 100 06/14/16 21:00 Room Air Intake and Output 06/15/16 06/15/16 06/16/16 15:00 23:00 07:00 Intake Total 1080 ml 400 ml Output Total 2400 ml 2200 ml Balance -1320 ml -1800 ml Exam Constitutional: alert, oriented, well developed Psych: no complaints Head: atraumatic Eyes: EOMI, PERRL, nl sclera ENMT: nl external ears & nose Neck: non-tender Respiratory: clear to auscultation Cardiovascular: nl pulses Gastrointestinal: non-tender, soft Musculoskeletal: other Extremities: normal pulses Neurological: nl mental status, nl speech Skin: other Lymph: nontender Results Result Diagram: 06/16/1651406/16/1615 Results 24 hrs Laboratory Tests Test 06/16/16 05:15 Anion Gap 12 Basophils # 0.0 Basophils % 0.2 Blood Urea Nitrogen 13 Calcium Level 8.7 Carbon Dioxide Level 31 Chloride Level 102 Creatinine 0.75 Eosinophils # 0.1 Eosinophils % 2.0 Glucose Level 107 Hematocrit 26.8 L Hemoglobin 8.5 L Lymphocytes # 0.8 Lymphocytes % 16.2 Mean Corpuscular Hemoglobin 28.9 L Mean Corpuscular Hemoglobin Concent 31.7 L Mean Corpuscular Volume 91.2 Mean Platelet Volume 12.3 H Monocytes # 0.7 Monocytes % 14.3 H Neutrophils # 3.4 Neutrophils % 67.1 Nucleated Red Blood Cells # 0.0 Nucleated Red Blood Cells % 0.0 Platelet Count 83 L Potassium Level 4.1 Red Blood Count 2.94 L Red Cell Distribution Width 13.2 Sodium Level 141 White Blood Count 5.1 Medications Medications Current Medications Cholecalciferol (Vitamin D) 1,000 unit DAILY PO Last administered on 06/16/16 10:43; Admin Dose 1,000 UNIT; Start 06/04/16 at 09:00 Clopidogrel Bisulfate (plaVIX) 75 mg DAILY PO Last administered on 06/16/16 10 :44; Admin Dose 75 MG; Start 06/04/16 at 09:00 Diltiazem HCl (Cardizem Cd) 180 mg DAILY PO Last administered on 06/16/16 10: 43; Admin Dose 180 MG; Start 06/04/16 at 09:00 Folic Acid (Folic Acid) 1 mg DAILY PO Last administered on 06/16/16 10:43; Admin Dose 1 MG; Start 06/04/16 at 09:00 Mycophenolate Mofetil (Cellcept) 1,000 mg BID PO Last administered on 10:43; Admin Dose 1,000 MG; Start 06/03/16 at 21:00 Prednisone (Prednisone) 5 mg DAILY PO Last administered on 06/16/16 10:44; Admin Dose 5 MG; Start 06/04/16 at 09:00 Acetaminophen (Tylenol Tab) 650 mg Q4H PRN PO PAIN AND OR ELEVATED TEMP; Start 06/03/16 at 14:00 Acetaminophen/ Hydrocodone Bitart ([place] (5/325)) 1 tab Q4H PRN PO PAIN Last administered on 06/16/16 10:44; Admin Dose 1 TAB; Start 06/03/16 at 14:30 Tacrolimus (Prograf) 0.5 mg Q12 PO Last administered on 06/16/16 10:44; Admin Dose 0.5 MG; Start 06/03/16 at 21:00 Senna (Senokot) 1 tab BID PO Last administered on 06/16/16 10:44; Admin Dose 1 TAB; Start 06/03/16 at 21:00 Ondansetron HCl (Zofran Inj) 4 mg Q4H PRN IV NAUSEA AND/OR VOMITING Last administered on 06/11/16 16:54; Admin Dose 4 MG; Start 06/10/16 at 17:30 Benazepril HCl (Lotensin) 10 mg BID PO Last administered on 06/16/16 10:43; Admin Dose 10 MG; Start 06/11/16 at 21:00 Metoprolol Tartrate 25 mg 25 mg BID PO Last administered on 06/16/16 10:45; Admin Dose 25 MG; Start 06/12/16 at 21:00 Daptomycin/Sodium Chloride (Cubicin/NS) 100 ml @ 200 mls/hr Q24H IVPB Last administered on 06/15/16 16:08; Admin Dose 200 MLS/HR; Start 06/14/16 at 16:00 Morphine Sulfate (morphine) 2 mg Q3H PRN IV PAIN 7-10; Start 06/14/16 at 18:00 Hydralazine HCl (Apresoline) 50 mg TID PRN PO ELEVATED BLOOD PRESSURE; Start at 15:00 TIM BENNETT Jun 16, 2016 11:22
--- NOTE | 2016-06-16 12:14 | CONS ---
Date/Time of Note Date/Time of Note DATE: 06/16/16 TIME: 12:12 Assessment/Plan Assessment/Plan Additional Assessment/Plan 1. Left lower extremity gangrene s/p LE angiogram - now s/p Amputation of left fifth gangrenous toe, Surgical debridement of gangrenous left fourth toe, Surgical debridement of gangrenous right fifth toe 2. Acute hyperkalemia- resolved 3. Acute kidney injury post angiogram due to contrast exposure with prerenal azotemia - now improved to normal with IVF hydration 3. Status post donor kidney transplant in 2009 at [facility], currently on immunosuppression with Prograf, CellCept, prednisone. 4. 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 History of hypertension. 6. History of diabetes mellitus. 7. History of previous left upper extremity arteriovenous fistula. PLAN: s/p Amputation of left fifth gangrenous toe, Surgical debridement of gangrenous left fourth toe, Surgical debridement of gangrenous right fifth toe Cr improved back to normal, electroytes stable, d/emily bicitra ,d/emily IV fluids continue Current immunosuppression with cellcept, prograf and prednisone Right lower quadrant Renal allograft US - normal will follow up Consultation Date/Type/Reason Admit Date/Time Jun 03, 2016 at 11:09 Initial Consult Date May Type of Consultation: NEPHROLOGY Reason for Consultation Kidney transplant on immunosuppression, Post Contrast TOMEKA, s/p foot amputation Referring Provider: WILD DUARTE MD Exam/Review of Systems Vital Signs Vitals Vital Signs Date Time Temp Pulse Resp B/P Pulse Ox O2 Delivery O2 Flow Rate FiO2 06/16/16 10:31 69 199/85 06/16/16 07:50 98.6 18 100 06/14/16 21:00 Room Air Intake and Output 06/15/16 06/15/16 06/16/16 15:00 23:00 07:00 Intake Total 1080 ml 400 ml Output Total 2400 ml 2200 ml Balance -1320 ml -1800 ml Exam GENERAL: Awake, alert, in no distress. HEENT: Normal. Oropharynx clear. NECK: Supple, no JVD, no lymphadenopathy. LUNGS: Clear to auscultation. No crackles, no wheezes. HEART: S1, S2, with regular rhythm, no murmur. ABDOMEN: Soft, nontender, nondistended. Bowel sounds are present. EXTREMITIES: No clubbing, cyanosis, or edema. LLE dressing in place Results Result Diagram: 06/16/16 0515 06/16/16 0515 Results 24 hrs Laboratory Tests Test 06/16/16 05:15 Anion Gap 12 Basophils # 0.0 Basophils % 0.2 Blood Urea Nitrogen 13 Calcium Level 8.7 Carbon Dioxide Level 31 Chloride Level 102 Creatinine 0.75 Eosinophils # 0.1 Eosinophils % 2.0 Glucose Level 107 Hematocrit 26.8 L Hemoglobin 8.5 L Lymphocytes # 0.8 Lymphocytes % 16.2 Mean Corpuscular Hemoglobin 28.9 L Mean Corpuscular Hemoglobin Concent 31.7 L Mean Corpuscular Volume 91.2 Mean Platelet Volume 12.3 H Monocytes # 0.7 Monocytes % 14.3 H Neutrophils # 3.4 Neutrophils % 67.1 Nucleated Red Blood Cells # 0.0 Nucleated Red Blood Cells % 0.0 Platelet Count 83 L Potassium Level 4.1 Red Blood Count 2.94 L Red Cell Distribution Width 13.2 Sodium Level 141 White Blood Count 5.1 Medications Medications Current Medications Cholecalciferol (Vitamin D) 1,000 unit DAILY PO Last administered on 06/16/16 10:43; Admin Dose 1,000 UNIT; Start 06/04/16 at 09:00 Clopidogrel Bisulfate (plaVIX) 75 mg DAILY PO Last administered on 06/16/16 10 :44; Admin Dose 75 MG; Start 06/04/16 at 09:00 Diltiazem HCl (Cardizem Cd) 180 mg DAILY PO Last administered on 06/16/16 10: 43; Admin Dose 180 MG; Start 06/04/16 at 09:00 Folic Acid (Folic Acid) 1 mg DAILY PO Last administered on 06/16/16 10:43; Admin Dose 1 MG; Start 06/04/16 at 09:00 Mycophenolate Mofetil (Cellcept) 1,000 mg BID PO Last administered on 10:43; Admin Dose 1,000 MG; Start 06/03/16 at 21:00 Prednisone (Prednisone) 5 mg DAILY PO Last administered on 06/16/16 10:44; Admin Dose 5 MG; Start 06/04/16 at 09:00 Acetaminophen (Tylenol Tab) 650 mg Q4H PRN PO PAIN AND OR ELEVATED TEMP; Start 06/03/16 at 14:00 Acetaminophen/ Hydrocodone Bitart ([place] (5/325)) 1 tab Q4H PRN PO PAIN Last administered on 06/16/16 10:44; Admin Dose 1 TAB; Start 06/03/16 at 14:30 Tacrolimus (Prograf) 0.5 mg Q12 PO Last administered on 06/16/16 10:44; Admin Dose 0.5 MG; Start 06/03/16 at 21:00 Senna (Senokot) 1 tab BID PO Last administered on 06/16/16 10:44; Admin Dose 1 TAB; Start 06/03/16 at 21:00 Ondansetron HCl (Zofran Inj) 4 mg Q4H PRN IV NAUSEA AND/OR VOMITING Last administered on 06/11/16 16:54; Admin Dose 4 MG; Start 06/10/16 at 17:30 Benazepril HCl (Lotensin) 10 mg BID PO Last administered on 06/16/16 10:43; Admin Dose 10 MG; Start 06/11/16 at 21:00 Metoprolol Tartrate 25 mg 25 mg BID PO Last administered on 06/16/16 10:45; Admin Dose 25 MG; Start 06/12/16 at 21:00 Daptomycin/Sodium Chloride (Cubicin/NS) 100 ml @ 200 mls/hr Q24H IVPB Last administered on 06/15/16 16:08; Admin Dose 200 MLS/HR; Start 06/14/16 at 16:00 Morphine Sulfate (morphine) 2 mg Q3H PRN IV PAIN 7-10; Start 06/14/16 at 18:00 Hydralazine HCl (Apresoline) 50 mg TID PRN PO ELEVATED BLOOD PRESSURE; Start at 15:00 RAMON KEMP MD Jun 16, 2016 12:14
[2016-06-16 12:25] VITALS: BP 131/69; PULSE 60
--- NOTE | 2016-06-16 14:24 | CONS ---
Date/Time of Note Date/Time of Note DATE: 06/16/16 TIME: 14:21 Assessment/Plan Assessment/Plan Additional Assessment/Plan 1. Preoperative evaluation prior to intervention on lower extremities for gangrenous changes of the toe- s/p therapy, tolerated well, surgical team follows - PAIN CONTROLLED 2. Abnormal electrocardiogram, assess for acute coronary syndrome.-negative troponin x 3/Echo 06/05 EF 60-65/mod-sev TR. No cardiac contraindication to proceeding to OR on current medications at moderate risk - stable now 3. Hypertension, mildly elevated-borderline Hotn- BP very high now, will adjust Rx in conjunction with renal team. 4. Status post renal transplant - avoid nephrotoxic meds, renal team follows 5. Peripheral arterial disease with lower extremity gangrenous changes and nonhealing wound s/p peripheral angio/[employer] 06/10/16 and now s/p toe debridement 6. Anemia, mild- H/H stable, no bleeding noted 7.TR-mod-sev by echo 8. s/p renal transplant Consultation Date/Type/Reason Admit Date/Time Jun 03, 2016 at 11:09 Type of Consultation: NEPHROLOGY Referring Provider: WILD DUARTE MD 24 HR Interval Summary Free Text/Dictation No acute change - pain reasonably controlled, but BP is very high. ROS: No fever, no chills, no nausea, no vomiting, no diarrhea/constipation No recent weight changes No chest pain, no PND, no orthopnea No dizziness, blurred vision No thirst, no heat or cold intolerance Exam/Review of Systems Vital Signs Vitals Vital Signs Date Time Temp Pulse Resp B/P Pulse Ox O2 Delivery O2 Flow Rate FiO2 06/16/16 10:31 69 199/85 06/16/16 07:50 98.6 18 100 06/14/16 21:00 Room Air Intake and Output 06/15/16 06/15/16 06/16/16 15:00 23:00 07:00 Intake Total 1080 ml 400 ml Output Total 2400 ml 2200 ml Balance -1320 ml -1800 ml Exam General: WN/WD/NAD, AOx 2-3 HEENT: Unicetric/atraumatic/EOMI (follows commands) NECK: JVD elevated, no thyromegaly Lymph: no lymphadenopathy HEART: regular with no S3, II/ systolic murmur at apex LUNGS: Coarse sounds ABD: soft, NT, ND, +BS : Intact Neuro: non focal SKIN: chronic changes EXT: trace edema, PVD Results Result Diagram: 06/16/1651406/16/1615 Results 24 hrs Laboratory Tests Test 06/16/16 05:15 Anion Gap 12 Basophils # 0.0 Basophils % 0.2 Blood Urea Nitrogen 13 Calcium Level 8.7 Carbon Dioxide Level 31 Chloride Level 102 Creatinine 0.75 Eosinophils # 0.1 Eosinophils % 2.0 Glucose Level 107 Hematocrit 26.8 L Hemoglobin 8.5 L Lymphocytes # 0.8 Lymphocytes % 16.2 Mean Corpuscular Hemoglobin 28.9 L Mean Corpuscular Hemoglobin Concent 31.7 L Mean Corpuscular Volume 91.2 Mean Platelet Volume 12.3 H Monocytes # 0.7 Monocytes % 14.3 H Neutrophils # 3.4 Neutrophils % 67.1 Nucleated Red Blood Cells # 0.0 Nucleated Red Blood Cells % 0.0 Platelet Count 83 L Potassium Level 4.1 Red Blood Count 2.94 L Red Cell Distribution Width 13.2 Sodium Level 141 White Blood Count 5.1 Medications Medications Current Medications Cholecalciferol (Vitamin D) 1,000 unit DAILY PO Last administered on 06/16/16 10:43; Admin Dose 1,000 UNIT; Start 06/04/16 at 09:00 Clopidogrel Bisulfate (plaVIX) 75 mg DAILY PO Last administered on 06/16/16 10 :44; Admin Dose 75 MG; Start 06/04/16 at 09:00 Diltiazem HCl (Cardizem Cd) 180 mg DAILY PO Last administered on 06/16/16 10: 43; Admin Dose 180 MG; Start 06/04/16 at 09:00 Folic Acid (Folic Acid) 1 mg DAILY PO Last administered on 06/16/16 10:43; Admin Dose 1 MG; Start 06/04/16 at 09:00 Mycophenolate Mofetil (Cellcept) 1,000 mg BID PO Last administered on 10:43; Admin Dose 1,000 MG; Start 06/03/16 at 21:00 Prednisone (Prednisone) 5 mg DAILY PO Last administered on 06/16/16 10:44; Admin Dose 5 MG; Start 06/04/16 at 09:00 Acetaminophen (Tylenol Tab) 650 mg Q4H PRN PO PAIN AND OR ELEVATED TEMP; Start 06/03/16 at 14:00 Acetaminophen/ Hydrocodone Bitart ([place] (5/325)) 1 tab Q4H PRN PO PAIN Last administered on 06/16/16 10:44; Admin Dose 1 TAB; Start 06/03/16 at 14:30 Tacrolimus (Prograf) 0.5 mg Q12 PO Last administered on 06/16/16 10:44; Admin Dose 0.5 MG; Start 06/03/16 at 21:00 Senna (Senokot) 1 tab BID PO Last administered on 06/16/16 10:44; Admin Dose 1 TAB; Start 06/03/16 at 21:00 Ondansetron HCl (Zofran Inj) 4 mg Q4H PRN IV NAUSEA AND/OR VOMITING Last administered on 06/11/16 16:54; Admin Dose 4 MG; Start 06/10/16 at 17:30 Benazepril HCl (Lotensin) 10 mg BID PO Last administered on 06/16/16 10:43; Admin Dose 10 MG; Start 06/11/16 at 21:00 Metoprolol Tartrate 25 mg 25 mg BID PO Last administered on 06/16/16 10:45; Admin Dose 25 MG; Start 06/12/16 at 21:00 Daptomycin/Sodium Chloride (Cubicin/NS) 100 ml @ 200 mls/hr Q24H IVPB Last administered on 06/15/16 16:08; Admin Dose 200 MLS/HR; Start 06/14/16 at 16:00 Morphine Sulfate (morphine) 2 mg Q3H PRN IV PAIN 7-10; Start 06/14/16 at 18:00 Hydralazine HCl (Apresoline) 50 mg TID PRN PO ELEVATED BLOOD PRESSURE; Start at 15:00 MIRELLA MOSER MD Jun 16, 2016 14:24
--- NOTE | 2016-06-16 15:38 | CONS ---
Date/Time of Note Date/Time of Note DATE: 06/16/16 TIME: 15:37 Assessment/Plan Assessment/Plan Chief Complaint/Hosp Course ID PROGRESS NOTE CURRENT ABX=> DAPTO s/p Zyvox POD #3 => S/p 06/13/16 Operation Performed Amputation of left fifth gangrenous toe Surgical debridement of gangrenous left fourth toe Surgical debridement of gangrenous right fifth toe 24H INTERVAL SUMMARY * Clinically stable, no new issues, doing "OK" * Afebrile, VSS, NAD PHYSICAL EXAMINATION: GENERAL: VSS, NAD HEENT: Unremarkable -- NECK: Supple, trachea midline. CHEST: Rise symmetrical, without dyspnea on observation HEART: Pulse RRR ABDOMEN: Soft, benign EXTREMITIES: Warm -- gangrenous toes ID ASSESSMENT 61 yo F admit with: 1. Bilateral lower extremities gangrene, s/p 06/13/16 amputation of left fifth gangrenous toe, surgical debridement of gangrenous left fourth toe and right fifth toe 2. Severe peripheral vascular disease status post angiogram with angioplasty 3. History of kidney transplant, on Prograf, CellCept and prednisone. 4. Thrombocytopenia (- )MRSA Nares screening last admit 10/31/15 INVASIVES: PIV, ABX ALLERGY: KNDA CURRENT ABX: =>DAPTO IV s/p Zyvox ID RECOMMENDATIONS 1. Continue current ABX 2. Await further recs consultants . Problems: Consultation Date/Type/Reason Admit Date/Time Jun 03, 2016 at 11:09 Initial Consult Date 06/11/16 Type of Consultation: ID Referring Provider: WILD DUARTE MD Exam/Review of Systems Vital Signs Vitals Vital Signs Date Time Temp Pulse Resp B/P Pulse Ox O2 Delivery O2 Flow Rate FiO2 06/16/16 10:31 69 199/85 06/16/16 07:50 98.6 18 100 06/14/16 21:00 Room Air Intake and Output 06/15/16 06/15/16 06/16/16 15:00 23:00 07:00 Intake Total 1080 ml 400 ml Output Total 2400 ml 2200 ml Balance -1320 ml -1800 ml Results Result Diagram: 06/16/16 0515 06/16/16 0515 Results 24 hrs Laboratory Tests Test 06/16/16 05:15 Anion Gap 12 Basophils # 0.0 Basophils % 0.2 Blood Urea Nitrogen 13 Calcium Level 8.7 Carbon Dioxide Level 31 Chloride Level 102 Creatinine 0.75 Eosinophils # 0.1 Eosinophils % 2.0 Glucose Level 107 Hematocrit 26.8 L Hemoglobin 8.5 L Lymphocytes # 0.8 Lymphocytes % 16.2 Mean Corpuscular Hemoglobin 28.9 L Mean Corpuscular Hemoglobin Concent 31.7 L Mean Corpuscular Volume 91.2 Mean Platelet Volume 12.3 H Monocytes # 0.7 Monocytes % 14.3 H Neutrophils # 3.4 Neutrophils % 67.1 Nucleated Red Blood Cells # 0.0 Nucleated Red Blood Cells % 0.0 Platelet Count 83 L Potassium Level 4.1 Red Blood Count 2.94 L Red Cell Distribution Width 13.2 Sodium Level 141 White Blood Count 5.1 Medications Medications Current Medications Cholecalciferol (Vitamin D) 1,000 unit DAILY PO Last administered on 06/16/16 10:43; Admin Dose 1,000 UNIT; Start 06/04/16 at 09:00 Clopidogrel Bisulfate (plaVIX) 75 mg DAILY PO Last administered on 06/16/16 10 :44; Admin Dose 75 MG; Start 06/04/16 at 09:00 Diltiazem HCl (Cardizem Cd) 180 mg DAILY PO Last administered on 06/16/16 10: 43; Admin Dose 180 MG; Start 06/04/16 at 09:00 Folic Acid (Folic Acid) 1 mg DAILY PO Last administered on 06/16/16 10:43; Admin Dose 1 MG; Start 06/04/16 at 09:00 Mycophenolate Mofetil (Cellcept) 1,000 mg BID PO Last administered on 10:43; Admin Dose 1,000 MG; Start 06/03/16 at 21:00 Prednisone (Prednisone) 5 mg DAILY PO Last administered on 06/16/16 10:44; Admin Dose 5 MG; Start 06/04/16 at 09:00 Acetaminophen (Tylenol Tab) 650 mg Q4H PRN PO PAIN AND OR ELEVATED TEMP; Start 06/03/16 at 14:00 Acetaminophen/ Hydrocodone Bitart ([place] (5/325)) 1 tab Q4H PRN PO PAIN Last administered on 06/16/16 10:44; Admin Dose 1 TAB; Start 06/03/16 at 14:30 Tacrolimus (Prograf) 0.5 mg Q12 PO Last administered on 06/16/16 10:44; Admin Dose 0.5 MG; Start 06/03/16 at 21:00 Senna (Senokot) 1 tab BID PO Last administered on 06/16/16 10:44; Admin Dose 1 TAB; Start 06/03/16 at 21:00 Ondansetron HCl (Zofran Inj) 4 mg Q4H PRN IV NAUSEA AND/OR VOMITING Last administered on 06/11/16 16:54; Admin Dose 4 MG; Start 06/10/16 at 17:30 Benazepril HCl (Lotensin) 10 mg BID PO Last administered on 06/16/16 10:43; Admin Dose 10 MG; Start 06/11/16 at 21:00 Metoprolol Tartrate 25 mg 25 mg BID PO Last administered on 06/16/16 10:45; Admin Dose 25 MG; Start 06/12/16 at 21:00 Daptomycin/Sodium Chloride (Cubicin/NS) 100 ml @ 200 mls/hr Q24H IVPB Last administered on 06/15/16 16:08; Admin Dose 200 MLS/HR; Start 06/14/16 at 16:00 Morphine Sulfate (morphine) 2 mg Q3H PRN IV PAIN 7-10; Start 06/14/16 at 18:00 Hydralazine HCl (Apresoline) 50 mg TID PRN PO ELEVATED BLOOD PRESSURE; Start at 15:00 Isosorbide Dinitrate (Isordil) 60 mg TID PO ; Start 06/16/16 at 21:00 HAMZAH GARZA NP Jun 16, 2016 15:38
[2016-06-16] MEDS: DAPTOMYCIN 320 MG in SOD CHLORIDE 0.9% 100 ML IVPB SCH (16:20)
[2016-06-16 19:46] VITALS: BP 198/91; RESP 20
[2016-06-16] MEDS: morphine 2 MG INJ IV PRN (20:04)
[2016-06-16] MEDS: ISOSORBIDE DINITRATE 20 MG TAB PO SCH (20:11)
[2016-06-16 21:10] VITALS: BP 173/77; PULSE 71; RESP 18
--- NOTE | 2016-06-16 23:33 | PN ---
Date/Time of Note Date/Time of Note DATE: 06/14/16 TIME: 20:29 Assessment/Plan Lines/Catheters IV Catheter Type (from Nrs): Saline Lock Moreira in Place (from Nrsg): No Assessment/Plan Problems: (1) Acquired absence of other left toe(s) Comment: Dressing was changed today. Continue partial weightbearing bilateral feet. Patient will be followed up in-house. (2) Toe gangrene (3) Peripheral vascular disease Subjective 24 Hr Interval Summary Patient was seen and examined at bedside. She is status post amputation of the left gangrenous fifth toe and debridement of left fourth and right fifth toes. She is doing well with minimum complaint of pain. Denies fever or chills. Reports no overnight adverse events. Date of surgery June 13, 2016. Constitutional: no complaints Pain Control: well controlled Exam/Review of Systems Vital Signs Vitals Vital Signs Date Time Temp Pulse Resp B/P Pulse Ox O2 Delivery O2 Flow Rate FiO2 06/16/16 21:10 71 18 173/77 06/16/16 19:46 98.5 100 06/14/16 21:00 Room Air Intake and Output 06/15/16 06/15/16 06/16/16 15:00 23:00 07:00 Intake Total 1080 ml 400 ml Output Total 2400 ml 2200 ml Balance -1320 ml -1800 ml Exam Free Text/Dictation Patient is laying supine in bed in no acute distress. Bandages are removed from both feet. Patient is status post amputation of the left fifth toe well- healed with wound edges well coapted. Sutures are intact with no sign of infection. Left fourth toe is status post surgical debridement. There is viable tissue present. Right fifth toe is also status post surgical debridement. There is viable tissue on the right fifth toe as well. Dorsalis pedis and posterior tibial pulse is weak but palpable. There is no sign of infection with no bleeding. Both feet are tender to palpation. No other changes noted on examination. Labs were reviewed along with imaging. Results Result Diagram: 06/16/16 0515 06/16/16 0515 PHILLIP EMANUEL DPM Jun 16, 2016 23:33
--- NOTE | 2016-06-16 23:35 | PN ---
Date/Time of Note Date/Time of Note DATE: 06/16/16 TIME: 23:33 Assessment/Plan Lines/Catheters IV Catheter Type (from Nrs): Saline Lock Moreira in Place (from Nrs): No Assessment/Plan Problems: (1) Acquired absence of other left toe(s) (2) Toe gangrene (3) Peripheral vascular disease (4) DVT (deep venous thrombosis) Status: Acute (5) Encounter for wound re-check Status: Acute Assessment/Plan Patient may continue partial weightbearing. Daily dressing change to continue. Santyl ointment to left fourth toe and right fifth toe. Patient may be discharged home with visiting nurse for daily dressing change. Postop shoe to both feet. Patient may follow-up in 1 week at the clinic. Subjective 24 Hr Interval Summary Patient was seen and examined at bedside. Status post left fifth toe amputation with debridement of the left fourth and left fifth gangrenous toes on June 13, 2016. Reports less pain. Denies fever chills nausea or vomiting. Reports no overnight adverse events. Constitutional: no complaints Pain Control: well controlled Exam/Review of Systems Vital Signs Vitals Vital Signs Date Time Temp Pulse Resp B/P Pulse Ox O2 Delivery O2 Flow Rate FiO2 06/16/16 21:10 71 18 173/77 06/16/16 19:46 98.5 100 06/14/16 21:00 Room Air Intake and Output 06/15/16 06/15/16 06/16/16 15:00 23:00 07:00 Intake Total 1080 ml 400 ml Output Total 2400 ml 2200 ml Balance -1320 ml -1800 ml Exam Free Text/Dictation Laying supine in bed in no acute distress. Bandages were removed. Status post amputation of left fifth toe well coapted with sutures intact. No sign of infection noted. Left fourth and fifth toes are viable removed. Well coapted incision on the left foot with sutures intact. Both the left fourth and fifth toes show viable to. No other changes noted on examination today. Results Result Diagram: 06/16/16 0515 06/16/16 0515 PHILLIP EMANUEL DPM Jun 16, 2016 23:35
[2016-06-17] VITALS (7 sets, daily range): BP systolic 91–171; BP diastolic 52–81; PULSE 62–68; RESP 18
[2016-06-17 04:55] LABS: ADD SCAN DIFF NO
[2016-06-17 05:04] LABS: ABNORMAL IP MESSAGE 1; BASOPHILS % 0.1 % (0.0-2.0); EOSINOPHILS # 0.1 10^3/ul (0.0-0.5); EOSINOPHILS % 1.4 % (0.0-7.0); HEMATOCRIT 27.7 % (37.0-47.0); HEMOGLOBIN 8.7 g/dl (12.0-16.0); LYMPHOCYTES % 14.2 % (15.0-51.0); MEAN CORPUSCULAR HGB CONC 31.4 g/dl (32.0-37.0); MEAN CORPUSCULAR VOLUME 92.3 fl (82.0-101.0); MEAN PLATELET VOLUME 12.6 fl (7.4-10.4); MONOCYTE # 1.1 10^3/ul (0.3-0.9); MONOCYTES % 15.3 % (0.0-11.0); NEUTROPHIL # 4.8 10^3/ul (1.6-7.5); NEUTROPHILS % 68.7 % (39.0-77.0); PLATELET COUNT 86 10^3/UL (140-415); RED CELL DISTRIBUTION WIDTH 13.2 % (11.5-14.5)
[2016-06-17 05:36] LABS: POTASSIUM 4.3 mmol/L (3.5-5.1)
[2016-06-17 05:38] LABS: CREATININE 0.83 mg/dl (0.44-1.00)
[2016-06-17 05:39] LABS: CALCIUM 8.6 mg/dl (8.4-10.2)
[2016-06-17] MEDS: HYDROCODONE/APAP (5/325) TAB PO PRN ×2 (07:45→20:34)
[2016-06-17] MEDS: TACROLIMUS 0.5 MG CAP PO SCH ×2 (08:53→20:33)
[2016-06-17] MEDS: CLOPIDOGREL 75 MG TAB PO SCH (08:54)
[2016-06-17] MEDS: METOPROLOL 25 MG TAB PO SCH ×2 (08:55→20:34)
[2016-06-17] MEDS: DILTIAZEM (CD) 180 MG CAP PO SCH (08:56)
[2016-06-17] MEDS: ISOSORBIDE DINITRATE 20 MG TAB PO SCH ×3 (08:57→20:33)
[2016-06-17] MEDS: SENNA TAB PO SCH ×2 (08:57→20:33)
[2016-06-17] MEDS: MYCOPHENOLATE 250 MG CAP PO SCH ×2 (08:58→20:33)
[2016-06-17] MEDS: BENAZEPRIL 10 MG TAB PO SCH ×2 (08:58→20:33)
[2016-06-17] MEDS: predniSONE 5 MG TAB PO SCH (09:00)
[2016-06-17] MEDS: CHOLECALCIFEROL 1,000 UNIT TAB PO SCH (09:00)
[2016-06-17] MEDS: FOLIC ACID 1 MG TAB PO SCH (09:00)
--- NOTE | 2016-06-17 09:29 | CONS ---
Date/Time of Note Date/Time of Note DATE: 06/17/16 TIME: 09:25 Assessment/Plan Assessment/Plan Additional Assessment/Plan 1. Preoperative evaluation prior to intervention on lower extremities for gangrenous changes of the toe- s/p therapy, tolerated well, surgical team follows - PAIN CONTROLLED with meds - better overall. 2. Abnormal electrocardiogram, assess for acute coronary syndrome.-negative troponin x 3/Echo 06/05 EF 60-65/mod-sev TR. No signs of ischemia. 3. Hypertension, mildly elevated-borderline Hotn- BP very high now, will adjust Rx in conjunction with renal team. 4. Status post renal transplant - avoid nephrotoxic meds, renal team follows 5. 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 Anemia, mild- H/H stable, no bleeding noted 7.TR-mod-sev by echo 8. s/p renal transplant Consultation Date/Type/Reason Admit Date/Time Jun 03, 2016 at 11:09 Type of Consultation: ID Referring Provider: WILD DUARTE MD 24 HR Interval Summary Free Text/Dictation No acute change -BP stable - con't pain rx - vascular team follows. ROS: No fever, no chills, no nausea, no vomiting, no diarrhea/constipation No recent weight changes No chest pain, no PND, no orthopnea No dizziness, blurred vision No thirst, no heat or cold intolerance Exam/Review of Systems Vital Signs Vitals Vital Signs Date Time Temp Pulse Resp B/P Pulse Ox O2 Delivery O2 Flow Rate FiO2 06/17/16 07:28 98.1 77 18 171/81 99 06/14/16 21:00 Room Air Intake and Output 06/16/16 06/16/16 06/17/16 15:00 23:00 07:00 Intake Total 760 ml 200 ml Output Total 1600 ml 1500 ml Balance -840 ml -1300 ml Exam General: WN/WD/NAD, AOx 3 HEENT: Unicetric/atraumatic/EOMI (follows commands) NECK: JVD elevated, no thyromegaly Lymph: no lymphadenopathy HEART: regular with no S3, II/ systolic murmur at apex LUNGS: Coarse sounds ABD: soft, NT, ND, +BS : Intact Neuro: non focal SKIN: chronic changes EXT: in dressing, warm LE Results Result Diagram: 06/17/16 0420 06/17/16 0420 Results 24 hrs Laboratory Tests Test 06/17/16 04:20 Anion Gap 14 Basophils # 0.0 Basophils % 0.1 Blood Urea Nitrogen 19 Calcium Level 8.6 Carbon Dioxide Level 27 Chloride Level 103 Creatinine 0.83 Eosinophils # 0.1 Eosinophils % 1.4 Glucose Level 92 Hematocrit 27.7 L Hemoglobin 8.7 L Lymphocytes # 1.0 Lymphocytes % 14.2 L Mean Corpuscular Hemoglobin 29.0 Mean Corpuscular Hemoglobin Concent 31.4 L Mean Corpuscular Volume 92.3 Mean Platelet Volume 12.6 H Monocytes # 1.1 H Monocytes % 15.3 H Neutrophils # 4.8 Neutrophils % 68.7 Nucleated Red Blood Cells # 0.0 Nucleated Red Blood Cells % 0.0 Platelet Count 86 L Potassium Level 4.3 Red Blood Count 3.00 L Red Cell Distribution Width 13.2 Sodium Level 140 White Blood Count 7.0 # Medications Medications Current Medications Cholecalciferol (Vitamin D) 1,000 unit DAILY PO Last administered on 06/17/16 09:00; Admin Dose 1,000 UNIT; Start 06/04/16 at 09:00 Clopidogrel Bisulfate (plaVIX) 75 mg DAILY PO Last administered on 06/17/16 08 :54; Admin Dose 75 MG; Start 06/04/16 at 09:00 Diltiazem HCl (Cardizem Cd) 180 mg DAILY PO Last administered on 06/17/16 08: 56; Admin Dose 180 MG; Start 06/04/16 at 09:00 Folic Acid (Folic Acid) 1 mg DAILY PO Last administered on 06/17/16 09:00; Admin Dose 1 MG; Start 06/04/16 at 09:00 Mycophenolate Mofetil (Cellcept) 1,000 mg BID PO Last administered on 08:58; Admin Dose 1,000 MG; Start 06/03/16 at 21:00 Prednisone (Prednisone) 5 mg DAILY PO Last administered on 06/17/16 09:00; Admin Dose 5 MG; Start 06/04/16 at 09:00 Acetaminophen (Tylenol Tab) 650 mg Q4H PRN PO PAIN AND OR ELEVATED TEMP; Start 06/03/16 at 14:00 Acetaminophen/ Hydrocodone Bitart ([place] (5/325)) 1 tab Q4H PRN PO PAIN Last administered on 06/17/16 07:45; Admin Dose 1 TAB; Start 06/03/16 at 14:30 Tacrolimus (Prograf) 0.5 mg Q12 PO Last administered on 06/17/16 08:53; Admin Dose 0.5 MG; Start 06/03/16 at 21:00 Senna (Senokot) 1 tab BID PO Last administered on 06/17/16 08:57; Admin Dose 1 TAB; Start 06/03/16 at 21:00 Ondansetron HCl (Zofran Inj) 4 mg Q4H PRN IV NAUSEA AND/OR VOMITING Last administered on 06/11/16 16:54; Admin Dose 4 MG; Start 06/10/16 at 17:30 Benazepril HCl (Lotensin) 10 mg BID PO Last administered on 06/17/16 08:58; Admin Dose 10 MG; Start 06/11/16 at 21:00 Metoprolol Tartrate 25 mg 25 mg BID PO Last administered on 06/17/16 08:55; Admin Dose 25 MG; Start 06/12/16 at 21:00 Daptomycin/Sodium Chloride (Cubicin/NS) 100 ml @ 200 mls/hr Q24H IVPB Last administered on 06/16/16 16:20; Admin Dose 200 MLS/HR; Start 06/14/16 at 16:00 Morphine Sulfate (morphine) 2 mg Q3H PRN IV PAIN 7-10 Last administered on 06/16 20:04; Admin Dose 2 MG; Start 06/14/16 at 18:00 Hydralazine HCl (Apresoline) 50 mg TID PRN PO ELEVATED BLOOD PRESSURE Last administered on 06/16/16 21:12; Admin Dose 50 MG; Start 06/15/16 at 15:00 Isosorbide Dinitrate (Isordil) 60 mg TID PO Last administered on 06/17/16 08: 57; Admin Dose 60 MG; Start 06/16/16 at 21:00 MIRELLA MOSER MD Jun 17, 2016 09:29
--- NOTE | 2016-06-17 12:39 | CONS ---
Date/Time of Note Date/Time of Note DATE: 06/17/16 TIME: 12:32 Assessment/Plan Assessment/Plan Chief Complaint/Hosp Course SUBJECTIVE: No events overnight. The patient is sitting comfortably in bed. No fevers. No n/v/d ANTIMICROBIALS: Zyvox. PHYSICAL EXAMINATION: GENERAL: Well-developed, fragile, elderly woman who is alert, in no distress. HEENT: Head atraumatic, normocephalic. Sclerae anicteric. Buccal mucosa pink. NECK: Supple, trachea midline. CHEST: Rise symmetrical. Breath sounds clear. HEART: S1, S2. ABDOMEN: Soft. Bowel tones present. EXTREMITIES: With bilateral lower extremity dressings intact ASSESSMENT: 1. Bilateral lower extremities gangrene, s/p amputation of left fifth gangrenous toe, surgical debridement of gangrenous left fourth toe and right fifth toe 2. Severe peripheral vascular disease status post angiogram with angioplasty. 3. History of kidney transplant, on Prograf, CellCept and prednisone. 4. Thrombocytopenia PLAN: The patient remains stable. Will dw with Dr Reynaga if pt can be switched to oral Doxycycline DW staff Problems: Consultation Date/Type/Reason Admit Date/Time Jun 03, 2016 at 11:09 Type of Consultation: ID Referring Provider: WILD DUARTE MD Exam/Review of Systems Vital Signs Vitals Vital Signs Date Time Temp Pulse Resp B/P Pulse Ox O2 Delivery O2 Flow Rate FiO2 06/17/16 11:49 67 06/17/16 11:48 111/57 06/17/16 07:28 98.1 18 99 06/14/16 21:00 Room Air Intake and Output 06/16/16 06/16/16 06/17/16 15:00 23:00 07:00 Intake Total 760 ml 200 ml Output Total 1600 ml 1500 ml Balance -840 ml -1300 ml Results Result Diagram: 06/17/16 0420 06/17/16 0420 Results 24 hrs Laboratory Tests Test 06/17/16 04:20 Anion Gap 14 Basophils # 0.0 Basophils % 0.1 Blood Urea Nitrogen 19 Calcium Level 8.6 Carbon Dioxide Level 27 Chloride Level 103 Creatinine 0.83 Eosinophils # 0.1 Eosinophils % 1.4 Glucose Level 92 Hematocrit 27.7 L Hemoglobin 8.7 L Lymphocytes # 1.0 Lymphocytes % 14.2 L Mean Corpuscular Hemoglobin 29.0 Mean Corpuscular Hemoglobin Concent 31.4 L Mean Corpuscular Volume 92.3 Mean Platelet Volume 12.6 H Monocytes # 1.1 H Monocytes % 15.3 H Neutrophils # 4.8 Neutrophils % 68.7 Nucleated Red Blood Cells # 0.0 Nucleated Red Blood Cells % 0.0 Platelet Count 86 L Potassium Level 4.3 Red Blood Count 3.00 L Red Cell Distribution Width 13.2 Sodium Level 140 White Blood Count 7.0 # Medications Medications Current Medications Cholecalciferol (Vitamin D) 1,000 unit DAILY PO Last administered on 06/17/16 09:00; Admin Dose 1,000 UNIT; Start 06/04/16 at 09:00 Clopidogrel Bisulfate (plaVIX) 75 mg DAILY PO Last administered on 06/17/16 08 :54; Admin Dose 75 MG; Start 06/04/16 at 09:00 Diltiazem HCl (Cardizem Cd) 180 mg DAILY PO Last administered on 06/17/16 08: 56; Admin Dose 180 MG; Start 06/04/16 at 09:00 Folic Acid (Folic Acid) 1 mg DAILY PO Last administered on 06/17/16 09:00; Admin Dose 1 MG; Start 06/04/16 at 09:00 Mycophenolate Mofetil (Cellcept) 1,000 mg BID PO Last administered on 08:58; Admin Dose 1,000 MG; Start 06/03/16 at 21:00 Prednisone (Prednisone) 5 mg DAILY PO Last administered on 06/17/16 09:00; Admin Dose 5 MG; Start 06/04/16 at 09:00 Acetaminophen (Tylenol Tab) 650 mg Q4H PRN PO PAIN AND OR ELEVATED TEMP; Start 06/03/16 at 14:00 Acetaminophen/ Hydrocodone Bitart ([place] (5/325)) 1 tab Q4H PRN PO PAIN Last administered on 06/17/16 07:45; Admin Dose 1 TAB; Start 06/03/16 at 14:30 Tacrolimus (Prograf) 0.5 mg Q12 PO Last administered on 06/17/16 08:53; Admin Dose 0.5 MG; Start 06/03/16 at 21:00 Senna (Senokot) 1 tab BID PO Last administered on 06/17/16 08:57; Admin Dose 1 TAB; Start 06/03/16 at 21:00 Ondansetron HCl (Zofran Inj) 4 mg Q4H PRN IV NAUSEA AND/OR VOMITING Last administered on 06/11/16 16:54; Admin Dose 4 MG; Start 06/10/16 at 17:30 Benazepril HCl (Lotensin) 10 mg BID PO Last administered on 06/17/16 08:58; Admin Dose 10 MG; Start 06/11/16 at 21:00 Metoprolol Tartrate 25 mg 25 mg BID PO Last administered on 06/17/16 08:55; Admin Dose 25 MG; Start 06/12/16 at 21:00 Daptomycin/Sodium Chloride (Cubicin/NS) 100 ml @ 200 mls/hr Q24H IVPB Last administered on 06/16/16 16:20; Admin Dose 200 MLS/HR; Start 06/14/16 at 16:00 Morphine Sulfate (morphine) 2 mg Q3H PRN IV PAIN 7-10 Last administered on 06/16 20:04; Admin Dose 2 MG; Start 06/14/16 at 18:00 Hydralazine HCl (Apresoline) 50 mg TID PRN PO ELEVATED BLOOD PRESSURE Last administered on 06/16/16 21:12; Admin Dose 50 MG; Start 06/15/16 at 15:00 Isosorbide Dinitrate (Isordil) 60 mg TID PO Last administered on 06/17/16 08: 57; Admin Dose 60 MG; Start 06/16/16 at 21:00 JACQUES HUERTA NP Jun 17, 2016 12:39
[2016-06-17] MEDS: DAPTOMYCIN 320 MG in SOD CHLORIDE 0.9% 100 ML IVPB SCH (15:54)
--- NOTE | 2016-06-17 17:35 | CONS ---
Date/Time of Note Date/Time of Note DATE: 06/17/16 TIME: 17:34 Assessment/Plan Assessment/Plan Additional Assessment/Plan 1. Left lower extremity gangrene s/p LE angiogram - now s/p Amputation of left fifth gangrenous toe, Surgical debridement of gangrenous left fourth toe, Surgical debridement of gangrenous right fifth toe 2. Acute hyperkalemia- resolved 3. Acute kidney injury post angiogram due to contrast exposure with prerenal azotemia - now improved to normal with IVF hydration 3. Status post donor kidney transplant in 2009 at [facility], currently on immunosuppression with Prograf, CellCept, prednisone. 4. 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 History of hypertension. 6. History of diabetes mellitus. 7. History of previous left upper extremity arteriovenous fistula. PLAN: s/p Amputation of left fifth gangrenous toe, Surgical debridement of gangrenous left fourth toe, Surgical debridement of gangrenous right fifth toe Cr improved back to normal, electroytes stable continue Current immunosuppression with cellcept, prograf and prednisone Right lower quadrant Renal allograft US - normal will follow up Consultation Date/Type/Reason Admit Date/Time Jun 03, 2016 at 11:09 Initial Consult Date May Type of Consultation: NEPHROLOGY Reason for Consultation TOMEKA post contrast,kidney transplant on immunosuppression Referring Provider: WILD DUARTE MD 24 HR Interval Summary Free Text/Dictation Cr stable, no complaints Exam/Review of Systems Vital Signs Vitals Vital Signs Date Time Temp Pulse Resp B/P Pulse Ox O2 Delivery O2 Flow Rate FiO2 06/17/16 14:17 65 106/58 06/17/16 07:28 98.1 18 99 06/14/16 21:00 Room Air Intake and Output 06/16/16 06/16/16 06/17/16 15:00 23:00 07:00 Intake Total 760 ml 200 ml Output Total 1600 ml 1500 ml Balance -840 ml -1300 ml Exam HEENT: Unicetric/atraumatic/EOMI (follows commands) NECK: JVD elevated, no thyromegaly Lymph: no lymphadenopathy HEART: regular with no S3, II/ systolic murmur at apex LUNGS: Coarse sounds ABD: soft, NT, ND, +BS : Intact Neuro: non focal SKIN: chronic changes EXT: in dressing, warm LE Results Result Diagram: 06/17/16 0420 06/17/16 0420 Results 24 hrs Laboratory Tests Test 06/17/16 04:20 Anion Gap 14 Basophils # 0.0 Basophils % 0.1 Blood Urea Nitrogen 19 Calcium Level 8.6 Carbon Dioxide Level 27 Chloride Level 103 Creatinine 0.83 Eosinophils # 0.1 Eosinophils % 1.4 Glucose Level 92 Hematocrit 27.7 L Hemoglobin 8.7 L Lymphocytes # 1.0 Lymphocytes % 14.2 L Mean Corpuscular Hemoglobin 29.0 Mean Corpuscular Hemoglobin Concent 31.4 L Mean Corpuscular Volume 92.3 Mean Platelet Volume 12.6 H Monocytes # 1.1 H Monocytes % 15.3 H Neutrophils # 4.8 Neutrophils % 68.7 Nucleated Red Blood Cells # 0.0 Nucleated Red Blood Cells % 0.0 Platelet Count 86 L Potassium Level 4.3 Red Blood Count 3.00 L Red Cell Distribution Width 13.2 Sodium Level 140 White Blood Count 7.0 # Medications Medications Current Medications Cholecalciferol (Vitamin D) 1,000 unit DAILY PO Last administered on 06/17/16 09:00; Admin Dose 1,000 UNIT; Start 06/04/16 at 09:00 Clopidogrel Bisulfate (plaVIX) 75 mg DAILY PO Last administered on 06/17/16 08 :54; Admin Dose 75 MG; Start 06/04/16 at 09:00 Diltiazem HCl (Cardizem Cd) 180 mg DAILY PO Last administered on 06/17/16 08: 56; Admin Dose 180 MG; Start 06/04/16 at 09:00 Folic Acid (Folic Acid) 1 mg DAILY PO Last administered on 06/17/16 09:00; Admin Dose 1 MG; Start 06/04/16 at 09:00 Mycophenolate Mofetil (Cellcept) 1,000 mg BID PO Last administered on 08:58; Admin Dose 1,000 MG; Start 06/03/16 at 21:00 Prednisone (Prednisone) 5 mg DAILY PO Last administered on 06/17/16 09:00; Admin Dose 5 MG; Start 06/04/16 at 09:00 Acetaminophen (Tylenol Tab) 650 mg Q4H PRN PO PAIN AND OR ELEVATED TEMP; Start 06/03/16 at 14:00 Acetaminophen/ Hydrocodone Bitart ([place] (5/325)) 1 tab Q4H PRN PO PAIN Last administered on 06/17/16 07:45; Admin Dose 1 TAB; Start 06/03/16 at 14:30 Tacrolimus (Prograf) 0.5 mg Q12 PO Last administered on 06/17/16 08:53; Admin Dose 0.5 MG; Start 06/03/16 at 21:00 Senna (Senokot) 1 tab BID PO Last administered on 06/17/16 08:57; Admin Dose 1 TAB; Start 06/03/16 at 21:00 Ondansetron HCl (Zofran Inj) 4 mg Q4H PRN IV NAUSEA AND/OR VOMITING Last administered on 06/11/16 16:54; Admin Dose 4 MG; Start 06/10/16 at 17:30 Benazepril HCl (Lotensin) 10 mg BID PO Last administered on 06/17/16 08:58; Admin Dose 10 MG; Start 06/11/16 at 21:00 Metoprolol Tartrate 25 mg 25 mg BID PO Last administered on 06/17/16 08:55; Admin Dose 25 MG; Start 06/12/16 at 21:00 Daptomycin/Sodium Chloride (Cubicin/NS) 100 ml @ 200 mls/hr Q24H IVPB Last administered on 06/17/16 15:54; Admin Dose 200 MLS/HR; Start 06/14/16 at 16:00 Morphine Sulfate (morphine) 2 mg Q3H PRN IV PAIN 7-10 Last administered on 06/16 20:04; Admin Dose 2 MG; Start 06/14/16 at 18:00 Hydralazine HCl (Apresoline) 50 mg TID PRN PO ELEVATED BLOOD PRESSURE Last administered on 06/16/16 21:12; Admin Dose 50 MG; Start 06/15/16 at 15:00 Isosorbide Dinitrate (Isordil) 60 mg TID PO Last administered on 06/17/16 08: 57; Admin Dose 60 MG; Start 06/16/16 at 21:00 RAMON KEMP MD Jun 17, 2016 17:35
--- NOTE | 2016-06-17 19:00 | PN ---
Date/Time of Note Date/Time of Note DATE: 06/17/16 TIME: 18:58 Assessment/Plan VTE Prophylaxis VTE Prophylaxis Intervention: SCD's Lines/Catheters IV [facility] [place] Urinary Cath still in place: No Assessment/Plan Chief Complaint/Hosp Course ASSESSMENT AND PLAN: 1. Bilateral lower extremity atherosclerosis with gangrene. The patient is followed by Dr. Valencia in vascular surgery consultation. S/p bilateral lower extremity angiogram with angioplasty of multiple arteries on . Dr. Bowen is following from infectious disease standpoint. S/p amputation of left fifth gangrenous toe, surgical debridement of gangrenous left fourth toe and gangrenous right fifth toe by Dr Reynaga, podiatry 06/13. Continue current wound care per podiatry recommendations. 2. End-stage renal disease, status post renal transplant. Continue patient on prednisone and CellCept. Dr. Briscoe is following in nephrology consultation. Continue to monitor patient creatinine. IV hydration per nephrology. 3. Hypertension. Continue benazepril, Lopressor and diltiazem. Dr. Powell is following from cardiology standpoint. 4. 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 Continue Plavix. 5. Anemia of chronic kidney disease. Continue to monitor hemoglobin and hematocrit. 6. Severe peripheral arterial disease. Continue Plavix. Further recommendations based on clinical course. Plan of care discussed with Dr. Cohen. Problems: Subjective 24 Hr Interval Summary Free Text/Dictation No acute events overnight, patient is afebrile, denies nausea vomiting, pain is well controlled. Exam/Review of Systems Vital Signs Vitals Vital Signs Date Time Temp Pulse Resp B/P Pulse Ox O2 Delivery O2 Flow Rate FiO2 06/17/16 14:17 65 106/58 06/17/16 07:28 98.1 18 99 06/14/16 21:00 Room Air Intake and Output 06/16/16 06/16/16 06/17/16 15:00 23:00 07:00 Intake Total 760 ml 200 ml Output Total 1600 ml 1500 ml Balance -840 ml -1300 ml Exam PHYSICAL ASSESSMENT: GENERAL: A well-developed, well-nourished female in no acute distress. HEENT: Head is atraumatic, normocephalic. Pupils equal, round, reactive to light and accommodation. Oral mucosa is pink, moist. NECK: Supple. No cervical lymphadenopathy, no thyromegaly. CHEST: Lungs clear bilaterally. There are no rhonchi, wheezes, rales noted. CARDIOVASCULAR: Normal S1, S2. The patient has systolic murmur III/. ABDOMEN: Round, soft, nondistended, nontender. Bowel sounds present. There is no guarding or rebound tenderness. EXTREMITIES: patient has multiple discolorations over bilateral thighs. Left fifth and fourth toes in the right fifth toe status post surgery with dry clean and intact dressing. SKIN: There is no rash, petechiae. NEUROLOGIC: The patient is awake, alert and oriented x4. Results Result Diagram: 06/17/16 0420 06/17/16 0420 Results 24 hrs Laboratory Tests Test 06/17/16 04:20 Anion Gap 14 Basophils # 0.0 Basophils % 0.1 Blood Urea Nitrogen 19 Calcium Level 8.6 Carbon Dioxide Level 27 Chloride Level 103 Creatinine 0.83 Eosinophils # 0.1 Eosinophils % 1.4 Glucose Level 92 Hematocrit 27.7 L Hemoglobin 8.7 L Lymphocytes # 1.0 Lymphocytes % 14.2 L Mean Corpuscular Hemoglobin 29.0 Mean Corpuscular Hemoglobin Concent 31.4 L Mean Corpuscular Volume 92.3 Mean Platelet Volume 12.6 H Monocytes # 1.1 H Monocytes % 15.3 H Neutrophils # 4.8 Neutrophils % 68.7 Nucleated Red Blood Cells # 0.0 Nucleated Red Blood Cells % 0.0 Platelet Count 86 L Potassium Level 4.3 Red Blood Count 3.00 L Red Cell Distribution Width 13.2 Sodium Level 140 White Blood Count 7.0 # Medications Medications Current Medications Cholecalciferol (Vitamin D) 1,000 unit DAILY PO Last administered on 06/17/16 09:00; Admin Dose 1,000 UNIT; Start 06/04/16 at 09:00 Clopidogrel Bisulfate (plaVIX) 75 mg DAILY PO Last administered on 06/17/16 08 :54; Admin Dose 75 MG; Start 06/04/16 at 09:00 Diltiazem HCl (Cardizem Cd) 180 mg DAILY PO Last administered on 06/17/16 08: 56; Admin Dose 180 MG; Start 06/04/16 at 09:00 Folic Acid (Folic Acid) 1 mg DAILY PO Last administered on 06/17/16 09:00; Admin Dose 1 MG; Start 06/04/16 at 09:00 Mycophenolate Mofetil (Cellcept) 1,000 mg BID PO Last administered on 08:58; Admin Dose 1,000 MG; Start 06/03/16 at 21:00 Prednisone (Prednisone) 5 mg DAILY PO Last administered on 06/17/16 09:00; Admin Dose 5 MG; Start 06/04/16 at 09:00 Acetaminophen (Tylenol Tab) 650 mg Q4H PRN PO PAIN AND OR ELEVATED TEMP; Start 06/03/16 at 14:00 Acetaminophen/ Hydrocodone Bitart ([place] (5/325)) 1 tab Q4H PRN PO PAIN Last administered on 06/17/16 07:45; Admin Dose 1 TAB; Start 06/03/16 at 14:30 Tacrolimus (Prograf) 0.5 mg Q12 PO Last administered on 06/17/16 08:53; Admin Dose 0.5 MG; Start 06/03/16 at 21:00 Senna (Senokot) 1 tab BID PO Last administered on 06/17/16 08:57; Admin Dose 1 TAB; Start 06/03/16 at 21:00 Ondansetron HCl (Zofran Inj) 4 mg Q4H PRN IV NAUSEA AND/OR VOMITING Last administered on 06/11/16 16:54; Admin Dose 4 MG; Start 06/10/16 at 17:30 Benazepril HCl (Lotensin) 10 mg BID PO Last administered on 06/17/16 08:58; Admin Dose 10 MG; Start 06/11/16 at 21:00 Metoprolol Tartrate 25 mg 25 mg BID PO Last administered on 06/17/16 08:55; Admin Dose 25 MG; Start 06/12/16 at 21:00 Daptomycin/Sodium Chloride (Cubicin/NS) 100 ml @ 200 mls/hr Q24H IVPB Last administered on 06/17/16 15:54; Admin Dose 200 MLS/HR; Start 06/14/16 at 16:00 Morphine Sulfate (morphine) 2 mg Q3H PRN IV PAIN 7-10 Last administered on 06/16 20:04; Admin Dose 2 MG; Start 06/14/16 at 18:00 Hydralazine HCl (Apresoline) 50 mg TID PRN PO ELEVATED BLOOD PRESSURE Last administered on 06/16/16 21:12; Admin Dose 50 MG; Start 06/15/16 at 15:00 Isosorbide Dinitrate (Isordil) 60 mg TID PO Last administered on 06/17/16 08: 57; Admin Dose 60 MG; Start 06/16/16 at 21:00 LES GILLILAND Jun 17, 2016 19:00
[2016-06-17] MEDS: morphine 2 MG INJ IV PRN (20:29)
[2016-06-18 05:30] LABS: ADD SCAN DIFF NO
[2016-06-18 05:36] LABS: ABNORMAL IP MESSAGE 1; HEMATOCRIT 26.2 % (37.0-47.0); HEMOGLOBIN 8.2 g/dl (12.0-16.0); MEAN CORPUSCULAR HEMOGLOBIN 28.8 pg (29.0-33.0); MEAN CORPUSCULAR HGB CONC 31.3 g/dl (32.0-37.0); MEAN CORPUSCULAR VOLUME 91.9 fl (82.0-101.0); MEAN PLATELET VOLUME 11.4 fl (7.4-10.4); PLATELET COUNT 87 10^3/UL (140-415); RED BLOOD COUNT 2.85 10^6/ul (4.20-5.40); RED CELL DISTRIBUTION WIDTH 13.1 % (11.5-14.5); WHITE BLOOD COUNT 5.3 10^3/ul (4.8-10.8)
[2016-06-18 06:03] LABS: POTASSIUM 4.6 mmol/L (3.5-5.1)
[2016-06-18 06:06] LABS: CALCIUM 8.7 mg/dl (8.4-10.2); CREATININE 0.84 mg/dl (0.44-1.00)
[2016-06-18 07:47] VITALS: BP 132/72; RESP 20
[2016-06-18] MEDS: ISOSORBIDE DINITRATE 20 MG TAB PO SCH ×2 (08:32→12:55)
[2016-06-18] MEDS: BENAZEPRIL 10 MG TAB PO SCH (08:32)
[2016-06-18] MEDS: predniSONE 5 MG TAB PO SCH (08:32)
[2016-06-18] MEDS: TACROLIMUS 0.5 MG CAP PO SCH (08:32)
[2016-06-18] MEDS: MYCOPHENOLATE 250 MG CAP PO SCH (08:33)
[2016-06-18] MEDS: FOLIC ACID 1 MG TAB PO SCH (08:33)
[2016-06-18] MEDS: DILTIAZEM (CD) 180 MG CAP PO SCH (08:33)
[2016-06-18] MEDS: METOPROLOL 25 MG TAB PO SCH (08:33)
[2016-06-18] MEDS: CHOLECALCIFEROL 1,000 UNIT TAB PO SCH (08:33)
[2016-06-18] MEDS: CLOPIDOGREL 75 MG TAB PO SCH (08:33)
[2016-06-18] MEDS: SENNA TAB PO SCH (08:33)
[2016-06-18] MEDS: HYDROCODONE/APAP (5/325) TAB PO PRN (08:36)
--- NOTE | 2016-06-18 08:46 | CONS ---
Date/Time of Note Date/Time of Note DATE: 06/18/16 TIME: 08:45 Assessment/Plan Assessment/Plan Additional Assessment/Plan 1. Left lower extremity gangrene s/p LE angiogram - now s/p Amputation of left fifth gangrenous toe, Surgical debridement of gangrenous left fourth toe, Surgical debridement of gangrenous right fifth toe 2. Acute hyperkalemia- resolved 3. Acute kidney injury post angiogram due to contrast exposure with prerenal azotemia - now improved to normal with IVF hydration 3. Status post donor kidney transplant in 2009 at [facility], currently on immunosuppression with Prograf, CellCept, prednisone. 4. 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 History of hypertension. 6. History of diabetes mellitus. 7. History of previous left upper extremity arteriovenous fistula. PLAN: s/p Amputation of left fifth gangrenous toe, Surgical debridement of gangrenous left fourth toe, Surgical debridement of gangrenous right fifth toe Cr improved back to normal, electroytes stable continue Current immunosuppression with cellcept, prograf and prednisone Right lower quadrant Renal allograft US - normal will follow up Consultation Date/Type/Reason Admit Date/Time Jun 03, 2016 at 11:09 Initial Consult Date May Type of Consultation: NEPHROLOGY Reason for Consultation Kidney transplant on immunosuppresssion, post Contrast TOMEKA Referring Provider: WILD DUARTE MD Exam/Review of Systems Vital Signs Vitals Vital Signs Date Time Temp Pulse Resp B/P Pulse Ox O2 Delivery O2 Flow Rate FiO2 06/18/16 07:47 98.4 72 20 132/72 100 06/14/16 21:00 Room Air Intake and Output 06/17/16 06/17/16 06/18/16 15:00 23:00 07:00 Intake Total 740 ml 580 ml Output Total 600 ml Balance 140 ml 580 ml Exam HEENT: Unicetric/atraumatic/EOMI (follows commands) NECK: JVD elevated, no thyromegaly Lymph: no lymphadenopathy HEART: regular with no S3, II/ systolic murmur at apex LUNGS: Coarse sounds ABD: soft, NT, ND, +BS : Intact Neuro: non focal SKIN: chronic changes EXT: in dressing, warm LE Results Result Diagram: 06/18/1645406/18/16454 Results 24 hrs Laboratory Tests Test 06/18/16 04:55 Anion Gap 16 Blood Urea Nitrogen 20 Calcium Level 8.7 Carbon Dioxide Level 27 Chloride Level 104 Creatinine 0.84 Glucose Level 91 Hematocrit 26.2 L Hemoglobin 8.2 L Mean Corpuscular Hemoglobin 28.8 L Mean Corpuscular Hemoglobin Concent 31.3 L Mean Corpuscular Volume 91.9 Mean Platelet Volume 11.4 H Platelet Count 87 L Potassium Level 4.6 Red Blood Count 2.85 L Red Cell Distribution Width 13.1 Sodium Level 142 White Blood Count 5.3 # Medications Medications Current Medications Cholecalciferol (Vitamin D) 1,000 unit DAILY PO Last administered on 06/18/16 08:33; Admin Dose 1,000 UNIT; Start 06/04/16 at 09:00 Clopidogrel Bisulfate (plaVIX) 75 mg DAILY PO Last administered on 06/18/16 08 :33; Admin Dose 75 MG; Start 06/04/16 at 09:00 Diltiazem HCl (Cardizem Cd) 180 mg DAILY PO Last administered on 06/18/16 08: 33; Admin Dose 180 MG; Start 06/04/16 at 09:00 Folic Acid (Folic Acid) 1 mg DAILY PO Last administered on 06/18/16 08:33; Admin Dose 1 MG; Start 06/04/16 at 09:00 Mycophenolate Mofetil (Cellcept) 1,000 mg BID PO Last administered on 08:33; Admin Dose 1,000 MG; Start 06/03/16 at 21:00 Prednisone (Prednisone) 5 mg DAILY PO Last administered on 06/18/16 08:32; Admin Dose 5 MG; Start 06/04/16 at 09:00 Acetaminophen (Tylenol Tab) 650 mg Q4H PRN PO PAIN AND OR ELEVATED TEMP; Start 06/03/16 at 14:00 Acetaminophen/ Hydrocodone Bitart ([place] (5/325)) 1 tab Q4H PRN PO PAIN Last administered on 06/18/16 08:36; Admin Dose 1 TAB; Start 06/03/16 at 14:30 Tacrolimus (Prograf) 0.5 mg Q12 PO Last administered on 06/18/16 08:32; Admin Dose 0.5 MG; Start 06/03/16 at 21:00 Senna (Senokot) 1 tab BID PO Last administered on 06/18/16 08:33; Admin Dose 1 TAB; Start 06/03/16 at 21:00 Ondansetron HCl (Zofran Inj) 4 mg Q4H PRN IV NAUSEA AND/OR VOMITING Last administered on 06/11/16 16:54; Admin Dose 4 MG; Start 06/10/16 at 17:30 Benazepril HCl (Lotensin) 10 mg BID PO Last administered on 06/18/16 08:32; Admin Dose 10 MG; Start 06/11/16 at 21:00 Metoprolol Tartrate 25 mg 25 mg BID PO Last administered on 06/18/16 08:33; Admin Dose 25 MG; Start 06/12/16 at 21:00 Daptomycin/Sodium Chloride (Cubicin/NS) 100 ml @ 200 mls/hr Q24H IVPB Last administered on 06/17/16 15:54; Admin Dose 200 MLS/HR; Start 06/14/16 at 16:00 Morphine Sulfate (morphine) 2 mg Q3H PRN IV PAIN 7-10 Last administered on 06/17 20:29; Admin Dose 2 MG; Start 06/14/16 at 18:00 Hydralazine HCl (Apresoline) 50 mg TID PRN PO ELEVATED BLOOD PRESSURE Last administered on 06/16/16 21:12; Admin Dose 50 MG; Start 06/15/16 at 15:00 Isosorbide Dinitrate (Isordil) 60 mg TID PO Last administered on 06/18/16 08: 32; Admin Dose 60 MG; Start 06/16/16 at 21:00 RAMON KEMP MD Jun 18, 2016 08:46
[2016-06-18 09:18] LABS: EOSINOPHILS # 0.2 10^3/ul (0.0-0.5); MONOCYTE # 0.9 10^3/ul (0.3-0.9); NEUTROPHIL # 3.2 10^3/ul (1.6-7.5)
[2016-06-18 09:19] LABS: PLATELET ESTIMATE PLT APPEAR DECREASED
--- NOTE | 2016-06-18 12:11 | CONS ---
Date/Time of Note Date/Time of Note DATE: 06/18/16 TIME: 12:09 Assessment/Plan Assessment/Plan Chief Complaint/Hosp Course SUBJECTIVE: No events overnight. The patient is sitting comfortably in bed. No fevers. No n/v/d ANTIMICROBIALS: Daptomycin PHYSICAL EXAMINATION: GENERAL: Well-developed, fragile, elderly woman who is alert, in no distress. HEENT: Head atraumatic, normocephalic. Sclerae anicteric. Buccal mucosa pink. NECK: Supple, trachea midline. CHEST: Rise symmetrical. Breath sounds clear. HEART: S1, S2. ABDOMEN: Soft. Bowel tones present. EXTREMITIES: With bilateral lower extremity dressings intact ASSESSMENT: 1. Bilateral lower extremities gangrene, s/p amputation of left fifth gangrenous toe, surgical debridement of gangrenous left fourth toe and right fifth toe 2. Severe peripheral vascular disease status post angiogram with angioplasty. 3. History of kidney transplant, on Prograf, CellCept and prednisone. 4. Thrombocytopenia PLAN: The patient remains stable. Given the fact that infected toe was amputated and per dw with Dr Reynaga will dc on oral Doxycycline DW staff Problems: Consultation Date/Type/Reason Admit Date/Time Jun 03, 2016 at 11:09 Type of Consultation: id Referring Provider: WILD DUARTE MD Exam/Review of Systems Vital Signs Vitals Vital Signs Date Time Temp Pulse Resp B/P Pulse Ox O2 Delivery O2 Flow Rate FiO2 06/18/16 07:47 98.4 72 20 132/72 100 06/14/16 21:00 Room Air Intake and Output 06/17/16 06/17/16 06/18/16 15:00 23:00 07:00 Intake Total 740 ml 580 ml Output Total 600 ml Balance 140 ml 580 ml Results Result Diagram: 06/18/16 0455 06/18/16 0455 Results 24 hrs Laboratory Tests Test 06/18/16 04:55 Anion Gap 16 Band Neutrophils % 1.0 Blood Urea Nitrogen 20 Calcium Level 8.7 Carbon Dioxide Level 27 Chloride Level 104 Creatinine 0.84 Eosinophils # 0.2 Eosinophils % 3.0 Glucose Level 91 Hematocrit 26.2 L Hemoglobin 8.2 L Lymphocytes # 1.0 Lymphocytes % 19.0 Mean Corpuscular Hemoglobin 28.8 L Mean Corpuscular Hemoglobin Concent 31.3 L Mean Corpuscular Volume 91.9 Mean Platelet Volume 11.4 H Monocytes # 0.9 Monocytes % 17.0 H Neutrophils # 3.2 Neutrophils % 60.0 Platelet Count 87 L Platelet Estimate PLT APPEAR DECREASED Potassium Level 4.6 Red Blood Count 2.85 L Red Cell Distribution Width 13.1 Sodium Level 142 White Blood Count 5.3 # Medications Medications Current Medications Cholecalciferol (Vitamin D) 1,000 unit DAILY PO Last administered on 06/18/16 08:33; Admin Dose 1,000 UNIT; Start 06/04/16 at 09:00 Clopidogrel Bisulfate (plaVIX) 75 mg DAILY PO Last administered on 06/18/16 08 :33; Admin Dose 75 MG; Start 06/04/16 at 09:00 Diltiazem HCl (Cardizem Cd) 180 mg DAILY PO Last administered on 06/18/16 08: 33; Admin Dose 180 MG; Start 06/04/16 at 09:00 Folic Acid (Folic Acid) 1 mg DAILY PO Last administered on 06/18/16 08:33; Admin Dose 1 MG; Start 06/04/16 at 09:00 Mycophenolate Mofetil (Cellcept) 1,000 mg BID PO Last administered on 08:33; Admin Dose 1,000 MG; Start 06/03/16 at 21:00 Prednisone (Prednisone) 5 mg DAILY PO Last administered on 06/18/16 08:32; Admin Dose 5 MG; Start 06/04/16 at 09:00 Acetaminophen (Tylenol Tab) 650 mg Q4H PRN PO PAIN AND OR ELEVATED TEMP; Start 06/03/16 at 14:00 Acetaminophen/ Hydrocodone Bitart ([place] (5/325)) 1 tab Q4H PRN PO PAIN Last administered on 06/18/16 08:36; Admin Dose 1 TAB; Start 06/03/16 at 14:30 Tacrolimus (Prograf) 0.5 mg Q12 PO Last administered on 06/18/16 08:32; Admin Dose 0.5 MG; Start 06/03/16 at 21:00 Senna (Senokot) 1 tab BID PO Last administered on 06/18/16 08:33; Admin Dose 1 TAB; Start 06/03/16 at 21:00 Ondansetron HCl (Zofran Inj) 4 mg Q4H PRN IV NAUSEA AND/OR VOMITING Last administered on 06/11/16 16:54; Admin Dose 4 MG; Start 06/10/16 at 17:30 Benazepril HCl (Lotensin) 10 mg BID PO Last administered on 06/18/16 08:32; Admin Dose 10 MG; Start 06/11/16 at 21:00 Metoprolol Tartrate 25 mg 25 mg BID PO Last administered on 06/18/16 08:33; Admin Dose 25 MG; Start 06/12/16 at 21:00 Daptomycin/Sodium Chloride (Cubicin/NS) 100 ml @ 200 mls/hr Q24H IVPB Last administered on 06/17/16 15:54; Admin Dose 200 MLS/HR; Start 06/14/16 at 16:00 Morphine Sulfate (morphine) 2 mg Q3H PRN IV PAIN 7-10 Last administered on 06/17 20:29; Admin Dose 2 MG; Start 06/14/16 at 18:00 Hydralazine HCl (Apresoline) 50 mg TID PRN PO ELEVATED BLOOD PRESSURE Last administered on 06/16/16 21:12; Admin Dose 50 MG; Start 06/15/16 at 15:00 Isosorbide Dinitrate (Isordil) 60 mg TID PO Last administered on 06/18/16 08: 32; Admin Dose 60 MG; Start 06/16/16 at 21:00 JACQUES HUERTA NP Jun 18, 2016 12:11
[2016-06-18 12:56] VITALS: BP 118/62; PULSE 66
--- NOTE | 2016-06-18 12:59 | CONS ---
Date/Time of Note Date/Time of Note DATE: 06/18/16 TIME: 12:57 Assessment/Plan Assessment/Plan Additional Assessment/Plan 1. Preoperative evaluation prior to intervention on lower extremities for gangrenous changes of the toe- s/p therapy, tolerated well, surgical team follows - PAIN CONTROLLED with meds - better overall. STABLE. 2. Abnormal electrocardiogram, assess for acute coronary syndrome.-negative troponin x 3/Echo 06/05 EF 60-65/mod-sev TR. No signs of ischemia. 3. Hypertension, mildly elevated-borderline Hotn- BP very high now, will adjust Rx in conjunction with renal team. BETTER now. 4. Status post renal transplant - avoid nephrotoxic meds, renal team follows 5. Peripheral arterial disease with lower extremity gangrenous changes and nonhealing wound s/p peripheral angio/NURSE CHEMICAL DEPENDENCY 06/10/16 and now s/p toe debridement 6. Anemia, mild- H/H stable, no bleeding noted 7.TR-mod-sev by echo - no intervention planned. 8. s/p renal transplant Consultation Date/Type/Reason Admit Date/Time Jun 03, 2016 at 11:09 Type of Consultation: id Referring Provider: WILD DUARTE MD 24 HR Interval Summary Free Text/Dictation NO acute change - pain controlled. Con't Med rx. Medications reviewed ROS: No fever, no chills, no nausea, no vomiting, no diarrhea/constipation No recent weight changes No chest pain, no PND, no orthopnea No dizziness, blurred vision No thirst, no heat or cold intolerance . Exam/Review of Systems Vital Signs Vitals Vital Signs Date Time Temp Pulse Resp B/P Pulse Ox O2 Delivery O2 Flow Rate FiO2 06/18/16 12:56 66 118/62 06/18/16 07:47 98.4 20 100 06/14/16 21:00 Room Air Intake and Output 06/17/16 06/17/16 06/18/16 15:00 23:00 07:00 Intake Total 740 ml 580 ml Output Total 600 ml Balance 140 ml 580 ml Exam General: WN/WD/NAD, AOx 3 HEENT: Unicetric/atraumatic/EOMI (follow commands) NECK: JVD elevated, no thyromegaly Lymph: no lymphadenopathy HEART: regular with no S3, II/ systolic murmur at apex LUNGS: Coarse sounds ABD: soft, NT, ND, +BS : Intact Neuro: non focal SKIN: chronic changes EXT: trace edema Results Result Diagram: 06/18/165 06/18/165 Results 24 hrs Laboratory Tests Test 06/18/16 04:55 Anion Gap 16 Band Neutrophils % 1.0 Blood Urea Nitrogen 20 Calcium Level 8.7 Carbon Dioxide Level 27 Chloride Level 104 Creatinine 0.84 Eosinophils # 0.2 Eosinophils % 3.0 Glucose Level 91 Hematocrit 26.2 L Hemoglobin 8.2 L Lymphocytes # 1.0 Lymphocytes % 19.0 Mean Corpuscular Hemoglobin 28.8 L Mean Corpuscular Hemoglobin Concent 31.3 L Mean Corpuscular Volume 91.9 Mean Platelet Volume 11.4 H Monocytes # 0.9 Monocytes % 17.0 H Neutrophils # 3.2 Neutrophils % 60.0 Platelet Count 87 L Platelet Estimate PLT APPEAR DECREASED Potassium Level 4.6 Red Blood Count 2.85 L Red Cell Distribution Width 13.1 Sodium Level 142 White Blood Count 5.3 # Medications Medications Current Medications Cholecalciferol (Vitamin D) 1,000 unit DAILY PO Last administered on 06/18/16 08:33; Admin Dose 1,000 UNIT; Start 06/04/16 at 09:00 Clopidogrel Bisulfate (plaVIX) 75 mg DAILY PO Last administered on 06/18/16 08 :33; Admin Dose 75 MG; Start 06/04/16 at 09:00 Diltiazem HCl (Cardizem Cd) 180 mg DAILY PO Last administered on 06/18/16 08: 33; Admin Dose 180 MG; Start 06/04/16 at 09:00 Folic Acid (Folic Acid) 1 mg DAILY PO Last administered on 06/18/16 08:33; Admin Dose 1 MG; Start 06/04/16 at 09:00 Mycophenolate Mofetil (Cellcept) 1,000 mg BID PO Last administered on 08:33; Admin Dose 1,000 MG; Start 06/03/16 at 21:00 Prednisone (Prednisone) 5 mg DAILY PO Last administered on 06/18/16 08:32; Admin Dose 5 MG; Start 06/04/16 at 09:00 Acetaminophen (Tylenol Tab) 650 mg Q4H PRN PO PAIN AND OR ELEVATED TEMP; Start 06/03/16 at 14:00 Acetaminophen/ Hydrocodone Bitart ([place] (5/325)) 1 tab Q4H PRN PO PAIN Last administered on 06/18/16 08:36; Admin Dose 1 TAB; Start 06/03/16 at 14:30 Tacrolimus (Prograf) 0.5 mg Q12 PO Last administered on 06/18/16 08:32; Admin Dose 0.5 MG; Start 06/03/16 at 21:00 Senna (Senokot) 1 tab BID PO Last administered on 06/18/16 08:33; Admin Dose 1 TAB; Start 06/03/16 at 21:00 Ondansetron HCl (Zofran Inj) 4 mg Q4H PRN IV NAUSEA AND/OR VOMITING Last administered on 06/11/16 16:54; Admin Dose 4 MG; Start 06/10/16 at 17:30 Benazepril HCl (Lotensin) 10 mg BID PO Last administered on 06/18/16 08:32; Admin Dose 10 MG; Start 06/11/16 at 21:00 Metoprolol Tartrate 25 mg 25 mg BID PO Last administered on 06/18/16 08:33; Admin Dose 25 MG; Start 06/12/16 at 21:00 Daptomycin/Sodium Chloride (Cubicin/NS) 100 ml @ 200 mls/hr Q24H IVPB Last administered on 06/17/16 15:54; Admin Dose 200 MLS/HR; Start 06/14/16 at 16:00 Morphine Sulfate (morphine) 2 mg Q3H PRN IV PAIN 7-10 Last administered on 06/17 20:29; Admin Dose 2 MG; Start 06/14/16 at 18:00 Hydralazine HCl (Apresoline) 50 mg TID PRN PO ELEVATED BLOOD PRESSURE Last administered on 06/16/16 21:12; Admin Dose 50 MG; Start 06/15/16 at 15:00 Isosorbide Dinitrate (Isordil) 60 mg TID PO Last administered on 06/18/16 12: 55; Admin Dose 60 MG; Start 06/16/16 at 21:00 MIRELLA MOSER MD Jun 18, 2016 12:58
[2016-06-18] MEDS ORDERED: DOXY-220 PO (15:29)
[2016-06-18] MEDS ORDERED: CLOP75TA27 PO (15:29)
[2016-06-18] MEDS ORDERED: METO-448 PO (15:29)
[2016-06-18] MEDS ORDERED: ISOS20TA19 PO (15:29)
[2016-06-18] MEDS ORDERED: BENA10TA48 PO (15:29)
[2016-06-18] MEDS ORDERED: HYDR-3498 PO (15:33)
[2016-06-18] MEDS ORDERED: COLLAGENASE 30 GM TUBE TOP ONE (16:00)
[2016-06-18] MEDS: DAPTOMYCIN 320 MG in SOD CHLORIDE 0.9% 100 ML IVPB SCH (16:34)
== END 2016-06-18 18:45 | disposition home or self-care (01) | DRG 253 ==
LOC: SDS 09:45 → MS2 11:09 → SDS 11:09 → MS2 12:35
PROVIDERS: ADMIT Internal Medicine; ATTEND Internal Medicine
PROC: 047L3ZZ Dilation of Left Femoral Artery, Percutaneous Approach (ICD-10-PCS; 2016-06-10)
PROC: 047N3ZZ Dilation of Left Popliteal Artery, Percutaneous Approach (ICD-10-PCS; 2016-06-10)
PROC: 047M3ZZ Dilation of Right Popliteal Artery, Percutaneous Approach (ICD-10-PCS; 2016-06-10)
PROC: 047S3ZZ Dilation of Left Posterior Tibial Artery, Percutaneous Approach (ICD-10-PCS; 2016-06-10)
PROC: 047Y3ZZ Dilation of Lower Artery, Percutaneous Approach (ICD-10-PCS; 2016-06-10)
PROC: 047K3ZZ Dilation of Right Femoral Artery, Percutaneous Approach (ICD-10-PCS; principal; 2016-06-10 12:00)
PROC: 0YBN0ZZ Excision of Left Foot, Open Approach (ICD-10-PCS; 2016-06-13)
PROC: 0Y6Y0Z0 Detachment at Left 5th Toe, Complete, Open Approach (ICD-10-PCS; 2016-06-13)
PROC: 0YBM0ZZ Excision of Right Foot, Open Approach (ICD-10-PCS; 2016-06-13 07:30)
DX: I70.263 Atherosclerosis of native arteries of extremities with gangrene, bilateral legs (principal); N17.9 Acute kidney failure, unspecified; D69.6 Thrombocytopenia, unspecified; Z94.0 Kidney transplant status; E87.5 Hyperkalemia; I10 Essential (primary) hypertension; D64.9 Anemia, unspecified; E78.5 Hyperlipidemia, unspecified; E11.9 Type 2 diabetes mellitus without complications; T50.8X5A Adverse effect of diagnostic agents, initial encounter; Y92.230 Patient room in hospital as the place of occurrence of the external cause; Z86.718 Personal history of other venous thrombosis and embolism; Z79.899 Other long term (current) drug therapy; Z79.02 Long term (current) use of antithrombotics/antiplatelets; Z79.52 Long term (current) use of systemic steroids
CPT/HCPCS: 75716; 76775; 80048; 80053; 80061; 81003; 82550; 82553; 82962; 83036; 84484; 85025; 85610; 85730; 88305; 88311; 93005; 93306; C1725; C1769; C1887; C1894; J0690; J1644; J2250; J2270; J2405; J3010; J7030; J7040; J7512; J7517; L3260-LT; Q9967

== ENCOUNTER 2016-09-26 08:28 | Day surgery (SDC) | payer OTHER ==
[2016-09-26] VITALS (11 sets, daily range): BP systolic 106–140; BP diastolic 59–72; PULSE 58–66; RESP 13–24; Ht 152.4 cm; Wt 50.0 kg
[~2016-09-26] VITALS: Ht 152.4 cm; Wt 50.0 kg
[~2016-09-26 08:28] MED LIST changes: -ASPI-535 PO; +BENA10TA48 PO; -BENA20TA48 PO; +CHOL100062 PO; +DOXY-220 PO; +FENTAnyl 50 MCG/ML VIAL ONE; +HYDR-3498 PO; +ISOS20TA19 PO; +LIDOCAINE 2% (SDV) 5 ML INJ ONE; -METO-429 PO; +METO-448 PO; +MIDAZOLAM 1 MG/ML 2 ML INJ ONE; +PROPOFOL 20 ML ONE
[2016-09-26] MEDS ORDERED: PROCHLORPERAZINE 10 MG INJ IV PRN (08:30)
[2016-09-26] MEDS ORDERED: METOCLOPRAMIDE 10 MG INJ IV PRN (08:30)
[2016-09-26] MEDS ORDERED: OXYCODONE/ACETAMINOPHEN (5/325) TAB PO PRN (08:30)
[2016-09-26] MEDS ORDERED: DIPHENHYDRAMINE 50 MG INJ IV PRN (08:30)
[2016-09-26] MEDS ORDERED: MEPERIDINE 25 MG INJ IV PRN (08:30)
[2016-09-26] MEDS ORDERED: ONDANSETRON 4 MG INJ IV PRN (08:30)
[2016-09-26] MEDS ORDERED: HYDROmorphONE (0.2 MG/ML) 10ML SYG IV PRN (08:30)
[2016-09-26] MEDS ORDERED: FENTAnyl 50 MCG/ML VIAL IV PRN (08:30)
[2016-09-26] MEDS ORDERED: CEFAZOLIN 2 GM/50 ML (PMX) 50 ML IVPB ONE (09:00)
[2016-09-26] MEDS ORDERED: METO-429 PO (09:19)
[2016-09-26] MEDS ORDERED: TACR1CAP PO (09:21)
[2016-09-26 10:14] LABS: ADD SCAN DIFF NO
[2016-09-26 10:23] LABS: BASOPHILS % 0.2 % (0.0-2.0); EOSINOPHILS # 0.1 10^3/ul (0.0-0.5); EOSINOPHILS % 1.1 % (0.0-7.0); HEMATOCRIT 35.1 % (37.0-47.0); HEMOGLOBIN 10.8 g/dl (12.0-16.0); LYMPHOCYTES # 0.8 10^3/ul (0.8-2.9); LYMPHOCYTES % 16.4 % (15.0-51.0); MEAN CORPUSCULAR HEMOGLOBIN 27.4 pg (29.0-33.0); MEAN CORPUSCULAR HGB CONC 30.8 g/dl (32.0-37.0); MEAN CORPUSCULAR VOLUME 89.1 fl (82.0-101.0); MEAN PLATELET VOLUME 12.9 fl (7.4-10.4); MONOCYTE # 0.7 10^3/ul (0.3-0.9); MONOCYTES % 14.3 % (0.0-11.0); NEUTROPHIL # 3.2 10^3/ul (1.6-7.5); NEUTROPHILS % 67.8 % (39.0-77.0); PLATELET COUNT 170 10^3/UL (140-415); RED BLOOD COUNT 3.94 10^6/ul (4.20-5.40); RED CELL DISTRIBUTION WIDTH 14.1 % (11.5-14.5); WHITE BLOOD COUNT 4.7 10^3/ul (4.8-10.8)
[2016-09-26 10:36] LABS: INR 1.19; PROTIME 15.2 Sec (12.2-14.2); PT RATIO 1.2
[2016-09-26 10:37] LABS: PARTIAL THROMBOPLASTIN TIME 28.7 Sec (25.0-35.0)
[2016-09-26] MEDS ORDERED: BUPIVACAINE 0.5% (SDV) 30 ML INJ ONE (10:41)
[2016-09-26] MEDS ORDERED: LIDOCAINE 2% (MDV) 20 ML INJ ONE (10:41)
[2016-09-26 10:42] LABS: MAGNESIUM 1.5 mg/dl (1.7-2.5); PHOSPHORUS 5.1 mg/dl (2.5-4.9)
[2016-09-26] MEDS ORDERED: BACITRACIN/POLYMYXIN 28.35 GM OINT TOP ONE (10:42)
--- NOTE | 2016-09-26 11:09 | HPN ---
Date/Time of Note Date/Time of Note DATE: 09/26/16 TIME: 11:08 Interval H&P Admission Note Pt. seen H&P reviewed: No system changes PIHLLIP EMANUEL DPM Sep 26, 2016 11:09
[2016-09-26 11:10] LABS: CALCIUM 9.2 mg/dl (8.4-10.2); CREATININE 0.92 mg/dl (0.44-1.00); POTASSIUM 4.1 mmol/L (3.5-5.1)
[2016-09-26] MEDS ORDERED: CEFAZOLIN 1 GM INJ ONE (11:17)
[2016-09-26] MEDS ORDERED: METOCLOPRAMIDE 10 MG INJ ONE (11:19)
[2016-09-26] MEDS ORDERED: ONDANSETRON 4 MG INJ ONE (11:19)
[2016-09-26] MEDS ORDERED: EPHEDrine SULFATE 50 MG/5 ML SYG ONE (11:20)
[2016-09-26] MEDS ORDERED: POLYMYXIN/BACITRACIN 1L IRRIG IRR ONE (11:53)
--- NOTE | 2016-09-26 12:06 | OPR ---
Date/Time of Note Date/Time of Note DATE: 09/26/16 TIME: 12:06 Operative Report Procedure Date: Sep 26, 2016 Preoperative Diagnosis Gangrene right fifth toe Gangrene left fourth toe Status post left fifth toe previous amputation Peripheral vascular disease Diabetes mellitus Peripheral neuropathy Postoperative Diagnosis Gangrene right fifth toe Gangrene left fourth toe Status post left fifth toe previous amputation Peripheral vascular disease Diabetes mellitus Peripheral neuropathy Operation Performed Amputation of right fifth gangrenous toe Amputation of left fourth gangrenous toe Surgeon: PHILLIP EMANUEL DPM Anesthesia: general, MAC Estimated Blood Loss: minimal Specimens Right fifth toe Left fourth toe Complications: None Pt Condition Post Procedure: stable Disposition: PACU Indications This is a pleasant 61-year-old female patient who has been suffering with gangrenous changes to the right fifth toe and left fourth toe for the past several months. She has already had amputation of her left fifth toe due to gangrenous changes and has been suffering with chronic open wound and pain in both feet because of the above toes. She has been followed at the amputation prevention center and she has not progressed to healing. Recommendation was made for amputation of the right fifth gangrenous toe and left fourth gangrenous toe. Risks and complications of this type of surgery was discussed with patient in great detail. Risks and complications discussed included, but are not limited to, postoperative infection, postoperative pain, hardware failure, failure of surgery to correct the problem, need for additional surgical procedures, deep venous thrombosis, limb loss and loss of life. Patient understands the discussion and agrees to the procedure. An informed consent was signed, obtained and placed in the chart. No guarantees or warrantees was given or implied as to the outcome of the procedure either in verbal or written form. Operative\Procedure Findings Gangrenous right fifth toe and gangrenous left fourth toe. Status post left fifth toe amputation. Procedure Description The patient was seen in the preoperative area. Proposed surgery was discussed with patient in great detail. Risks and complications of this type of surgery was discussed with patient in great detail. Opportunity was given to patient to ask questions and all questions were answered. An informed consent was then obtained, signed and placed in the chart. The patient was then taken to the operating room and was placed on the operating table in the supine position. General anesthesia was given by the anesthesiologist. All bony prominences were properly padded. A timeout was called by the circulating nurse and everyone agreed. Both feet were then scrubbed, prepped and draped in the usual aseptic manner. Procedure #1: Amputation of right fifth gangrenous toe attention was first directed to the right fifth toe. A fishmouth incision was made using a #10 blade. Bleeders were cauterized as necessary. Dissection was made all the way to bone at the base of the proximal phalanx. Next, the fifth metatarsophalangeal joint was sharply dissected and the toe was disarticulated at the joint and passed to the back table. Copious amounts of sterile normal saline was used for irrigation. Tendinous and ligamentous structures were then sharply debrided. The skin was closed using 2-0 nylon simple suture technique. Procedure #2: Amputation of left fourth gangrenous toe The same exact procedure was done on the left fourth toe as was done on the right fifth toe. Postoperative injection of 0.5% Marcaine plain was given to both the right and left feet. Sterile dressing was applied to both feet. The patient tolerated the procedure and anesthesia well. She was transferred to the recovery room with vital signs stable and vascular status intact to both feet and the remaining toes. Postoperative orders were written. Patient will be discharged home after postoperative monitoring. Prescription was submitted electronically to her pharmacy. Patient will be followed up in the amputation prevention center in 1 week. Partial weightbearing bilateral feet with postop shoes and crutches. PHILLIP EMANUEL DPM Sep 26, 2016 12:06
--- NOTE | 2016-09-27 08:29 | RADRPT ---
PROCEDURE: XR Foot. CLINICAL INDICATION: Post op xrays TECHNIQUE: AP, lateral and oblique views of the right foot was obtained. The images were reviewed on a PACS workstation. COMPARISON: Plain radiographs of the right foot from 04/02/2016 FINDINGS: There has been interval resection at the fifth proximal phalanx. There is decreased osseous mineralization. Mild degenerative changes of the midfoot are again noted including joint space narrowing. There is a tiny inferior calcaneal spur. Atherosclerotic vascular calcifications of the anterior and posterior tibial arteries in the distal calf and ankle as well as the dorsalis pedis artery are noted. IMPRESSION: Interval resection of the fifth proximal phalanx. Decreased osseous mineralization. Mild degenerative changes of the midfoot. Tiny inferior calcaneal spur. RPTAT: EE Physician Eve Date Time Electronically viewed and signed by Physician Eve on 09/27/2016 08:29 /
--- NOTE | 2016-09-27 08:32 | RADRPT ---
PROCEDURE: XR Foot. CLINICAL INDICATION: Post op xrays, gangrene TECHNIQUE: AP, lateral and oblique views of the left foot was obtained. The images were reviewed on a PACS workstation. COMPARISON: Plain radiographs of the left foot from 06/13/2016 FINDINGS: There has been interval resection at the fourth proximal phalanx. Resection at the first proximal phalanx is again noted. There is decreased osseous mineralization. There is mild narrowing of the joint spaces in the midfoot. Prominent vascular calcifications of the anterior and posterior tibial arteries are noted as well as the dorsalis pedis artery. There is a tiny inferior calcaneal spur. There is no acute fracture. RPTAT: AA IMPRESSION: Interval resection at the fourth proximal phalanx. Redemonstration of resection of the fifth proximal phalanx. Decreased osseous mineralization. Prominent atherosclerotic vascular calcifications. Given the reported history of gangrene and foot resections, pain duplex sonogram of the lower extremity arteries or CTA runoff study can be obtained for further evaluation of the lower extremity arteries, if indicated. Tiny inferior calcaneal spur. Physician Eve Date Time Electronically viewed and signed by Physician vEe on 09/27/2016 08:32 /
== END 2016-09-26 14:00 | disposition home or self-care (01) ==
LOC: SDS 08:28
PROVIDERS: ATTEND Podiatrist Foot & Ankle Surgery
DX: M86.171 Other acute osteomyelitis, right ankle and foot (principal); I96 Gangrene, not elsewhere classified; I73.9 Peripheral vascular disease, unspecified; E09.42 Drug or chemical induced diabetes mellitus with neurological complications with diabetic polyneuropathy
CPT/HCPCS: 28820; 73630; 80048; 82962; 83735; 84100; 85025; 85610; 85730; 88305; 88311; J0690; J2250; J2405; J2765; J3010; L3260; Z7512; Z7610

== ENCOUNTER 2016-11-12 07:33 | Inpatient (IN) | payer OTHER ==
[~2016-11-12] VITALS: Ht 152.4 cm; Wt 48.8 kg
[~2016-11-12 07:33] MED LIST changes: -BENA10TA48 PO; -DOXY-220 PO; -FENTAnyl 50 MCG/ML VIAL ONE; -FOLI-49 PO; -HYDR-3498 PO; -ISOS20TA19 PO; -LIDOCAINE 2% (SDV) 5 ML INJ ONE; +METO-429 PO; -METO-448 PO; -MIDAZOLAM 1 MG/ML 2 ML INJ ONE; -PRED-253 PO; -PROPOFOL 20 ML ONE; -SENN8.6C3 PO; +TACR1CAP PO
[2016-11-12 07:36] VITALS: Ht 152.4 cm; Wt 48.8 kg
[2016-11-12] MEDS ORDERED: HYDROmorphONE 1 MG/ML SYG IV STA (08:15)
[2016-11-12] MEDS ORDERED: SOD CHLORIDE 0.9% 1,000 ML IV ONE ×2 (08:30→10:00)
[2016-11-12] MEDS ORDERED: FAMO40TA52 PO (08:44)
[2016-11-12] MEDS ORDERED: FOLI-49 PO (08:45)
[2016-11-12] MEDS ORDERED: ASPI-664 PO (08:45)
[2016-11-12] MEDS ORDERED: HYDR-906 PO (08:45)
[2016-11-12] MEDS ORDERED: SENN-53 PO (08:46)
[2016-11-12] MEDS ORDERED: MEG40/1 PO (08:46)
[2016-11-12] MEDS ORDERED: BENA10TA48 PO (08:46)
[2016-11-12] MEDS ORDERED: PRED5 PO (08:47)
[2016-11-12 08:58] LABS: BASOPHILS % 0.1 % (0.0-2.0); EOSINOPHILS % 0.4 % (0.0-7.0); HEMATOCRIT 39.9 % (37.0-47.0); HEMOGLOBIN 12.8 g/dl (12.0-16.0); LYMPHOCYTES # 0.8 10^3/ul (0.8-2.9); LYMPHOCYTES % 7.3 % (15.0-51.0); MEAN CORPUSCULAR HEMOGLOBIN 27.2 pg (29.0-33.0); MEAN CORPUSCULAR HGB CONC 32.1 g/dl (32.0-37.0); MEAN CORPUSCULAR VOLUME 84.7 fl (82.0-101.0); MONOCYTE # 0.8 10^3/ul (0.3-0.9); MONOCYTES % 7.5 % (0.0-11.0); NEUTROPHIL # 8.8 10^3/ul (1.6-7.5); NEUTROPHILS % 84.4 % (39.0-77.0); PLATELET COUNT 239 10^3/UL (140-415); RED BLOOD COUNT 4.71 10^6/ul (4.20-5.40); RED CELL DISTRIBUTION WIDTH 14.5 % (11.5-14.5); WHITE BLOOD COUNT 10.5 10^3/ul (4.8-10.8)
[2016-11-12 09:12] LABS: INR 1.18; PROTIME 15.1 Sec (12.2-14.2); PT RATIO 1.2
[2016-11-12] MEDS ORDERED: VANCOMYCIN 1 GM (PMX) 250 ML IVPB SCH (09:30)
[2016-11-12] MEDS ORDERED: PIPER-TAZO 3.375 GM IV (PMX) 100 ML IVPB ONE (09:30)
--- NOTE | 2016-11-12 09:30 | RADRPT ---
PROCEDURE: XR Chest. CLINICAL INDICATION: Possible Sepsis TECHNIQUE: Single frontal view of the chest was obtained COMPARISON: Chest x-ray 04/02/[address] abdomen/pelvis 03/02/2012 FINDINGS: The cardiac silhouette is within normal limits. There are atherosclerotic calcifications of the thoracic aorta. An ovoid density projecting over the lower midline cardiac silhouette is stable compared to prior est x-ray and compatible with a small hiatal hernia, as seen on prior CT of 03/02/2012. There is mild left basilar atelectasis and / or scarring. No pneumothorax, significant pleural effusion, or parenchymal consolidation is identified. There ar e degenerative changes of the visualized spine. There is a new 7 mm sclerotic lesion in the left humeral head, of uncertain etiology. Recommend ded icated left shoulder x-rays for further evaluation. IMPRESSION: 1. No evidence of acute cardiopulmonary process. 2. Mild left basilar atelectasis and / or scarring. 3. New 7 mm sclerotic lesion in the left humeral head, of uncertain etiology. Recommend dedicated left shoulder x-rays for further evaluation. 4. Small hiatal hernia, stable. 5. Thoracic aortic atherosclerotic disease. RPTAT: PP Physician Ethan Date Time Electronically viewed and signed by Physician Ethan on 11/12/2016 09:30 /
[2016-11-12 09:42] LABS: ALBUMIN 4.5 g/dl (3.3-4.9); ALBUMIN/GLOBULIN RATIO 1.32; BILIRUBIN,INDIRECT 0.2 mg/dl (0-1.1); BILIRUBIN,TOTAL 0.2 mg/dl (0.2-1.3); CALCIUM 10.3 mg/dl (8.4-10.2); CREATININE 0.88 mg/dl (0.44-1.00); POTASSIUM 4.1 mmol/L (3.5-5.1); TOTAL PROTEIN 7.9 g/dl (6.1-8.1)
[2016-11-12 09:56] LABS: TROPONIN-I 0.034 ng/ml (0.00-0.12)
--- NOTE | 2016-11-12 09:59 | ERA ---
ER Documentation Chief Complaint Date/Time DATE: 11/12/16 TIME: 075 Chief Complaint left lower leg lump and redness x 2 weeks, bilateral feet pain s/p toe ampu HPI 61-year-old female presents to the emergency department complaining of chills and bilateral leg pain. Patient is recently status post amputation of gangrenous toes on bilateral feet accompanied by ongoing peripheral vascular disease. Patient states that since her amputation, she has continued to have severe bilateral foot and leg pain. She describes chills but no specific fever. She denies trauma. She is an otherwise poor historian but does not describe anything other than the 01/28 pain. ROS All systems reviewed and are negative except as per history of present illness. Medications Home Meds Reported Medications Prednisone* (Prednisone*) 5 Mg Tab, 5 MG PO DAILY, TAB 11/12/16 Sennosides* (Senna Lax*) 8.6 Mg Tablet, 1 TAB PO DAILY, TAB 11/12/16 Benazepril Hcl* (Benazepril Hcl*) 10 Mg Tablet, 10 MG PO DAILY, #30 TAB 11/12/16 Megestrol Acetate* (Megestrol Acetate*) 400 Mg/10 Ml Susp, 400 MG PO BID, ML 11/12/16 Aspirin (Low Dose Aspirin) 81 Mg Tablet.dr, 81 MG PO DAILY, #30 TAB 11/12/16 Folic Acid* (Folic Acid*) 1 Mg Tablet, 1 MG PO DAILY, TAB 11/12/16 Hydrocodone/Acetaminophen (Waterproof 5-325 Tablet) 1 Each Tablet, 1 EACH PO Q6 Y for PAIN, TAB 11/12/16 Famotidine* (Famotidine*) 40 Mg Tablet, 40 MG PO HS, #30 TAB 11/12/16 Tacrolimus* (Tacrolimus*) 1 Mg Capsule, 2 MG PO Q12, CAP 09/26/16 Metoprolol Tartrate* (Lopressor*) 50 Mg Tab, 50 MG PO BID, #60 TAB 09/26/16 Cholecalciferol* (Vitamin D3*) 1,000 Unit Tablet, 1 TAB PO DAILY, #30 06/03/16 Mycophenolate Mofetil (Cellcept) 250 Mg Capsule, 1000 MG PO BID 07/31/12 Diltiazem Hcl (Diltiazem Er) 180 Mg Capsule.cr, 180 MG PO DAILY 07/30/12 Discontinued Reported Medications Omeprazole* (Omeprazole*) 20 Mg Capsule.dr, 20 MG PO BID 07/21/13 Discontinued Scripts Clopidogrel Bisulfate (Clopidogrel) 75 Mg Tablet, 75 MG PO DAILY for 30 Days, # 30 TAB 1 Refill Prov:LSE GILLILAND 06/18/16 Allergies Allergies: Coded Allergies: No Known Allergy (Unverified , 11/12/16) PMhx/Soc History of Surgery: Yes (KIDNEY TRANSPLANT IN 2009) Anesthesia Reaction: No Hx Neurological Disorder: No Hx Respiratory Disorders: No Hx Cardiac Disorders: Yes (HTN, HYPERLIPIDEMIA, CARDIAC VALVE ISSUES ) Hx Psychiatric Problems: No Hx Miscellaneous Medical Probl: Yes (AMPUTAION OF TWO TOES TODAY) Hx Alcohol Use: Yes (NOT SINCE TRANSPLANT) Hx Substance Use: No Hx Tobacco Use: No Smoking Status: Unknown if ever smoked FmHx Noncontributory for chief complaint Physical Exam Vitals Vital Signs Date Time Temp Pulse Resp B/P Pulse Ox O2 Delivery O2 Flow Rate FiO2 11/12/16 07:36 98.6 108 18 172/88 100 Physical Exam GENERAL: Patient is a frail elderly female who appears uncomfortable HEENT: Pupils equal, round, and reactive to light. EOMI. There is no scleral icterus. NECK: C-spine is soft and supple, there is no meningismus. There is no cervical lymphadenopathy. LUNGS: Clear to auscultation bilaterally. There are no rales, wheezes or rhonchi. HEART: Regular rate and rhythm, no murmurs, clicks, rubs or gallops. ABDOMEN: Soft, non-tender, non-distended. There are bowel sounds in all four quadrants. No rebound or guarding. EXTREMITIES: Patient has gangrenous toes of both lower extremities. Her recent operative amputations are healing, but with poor healing noted. No new trauma is noted. NEURO: The patient moves all four extremities with 5/5 strength. Cranial nerves II - XII are intact. Normal gait. Alert and oriented SKIN: Patient has chronic vascular changes as well as gangrene about both feet HEME/LYMPHATIC: There is no evidence of excessive bruising or lymphedema. PSYCHIATRIC: The patient does not appear anxious or depressed. Result Diagram: 11/12/16 0820 11/12/16 0820 Results 24 hrs Laboratory Tests Test 11/12/16 08:19 11/12/16 08:20 Bedside Glucose 129mg/dL White Blood Count 10.510^3/ul Red Blood Count 4.7110^6/ul Hemoglobin 12.8g/dl Hematocrit 39.9% Mean Corpuscular Volume 84.7fl Mean Corpuscular Hemoglobin 27.2pg Mean Corpuscular Hemoglobin Concent 32.1g/dl Red Cell Distribution Width 14.5% Platelet Count 92794^3/UL Mean Platelet Volume 13.0fl Neutrophils % 84.4% Lymphocytes % 7.3% Monocytes % 7.5% Eosinophils % 0.4% Basophils % 0.1% Nucleated Red Blood Cells % 0.0/100WBC Neutrophils # 8.810^3/ul Lymphocytes # 0.810^3/ul Monocytes # 0.810^3/ul Eosinophils # 0.010^3/ul Basophils # 0.010^3/ul Nucleated Red Blood Cells # 0.010^3/ul Prothrombin Time 15.1Sec Prothrombin Time Ratio 1.2 INR International Normalized Ratio 1.18 Activated Partial Thromboplast Time 29.0Sec Sodium Level 141mmol/L Potassium Level 4.1mmol/L Chloride Level 104mmol/L Carbon Dioxide Level 18mmol/L Anion Gap 23 Blood Urea Nitrogen 20mg/dl Creatinine 0.88mg/dl Glucose Level 139mg/dl Lactic Acid Level 2.3mmol/L Calcium Level 10.3mg/dl Total Bilirubin 0.2mg/dl Direct Bilirubin 0.00mg/dl Indirect Bilirubin 0.2mg/dl Aspartate Amino Transf (AST/SGOT) 22IU/L Alanine Aminotransferase (ALT/SGPT) 18IU/L Alkaline Phosphatase 165IU/L Troponin I Pending Total Protein 7.9g/dl Albumin 4.5g/dl Globulin 3.40g/dl Albumin/Globulin Ratio 1.32 Current Medications Medications (Trade) Dose Ordered Sig/Lacey Route PRN Reason Start Time Stop Time Status Last Admin Dose Admin Hydromorphone HCl 1 mg 1 mg ONCE STAT IV 11/12/16 08:15 11/12/16 08:18 DC 11/12/16 08:59 Sodium Chloride 1,000 ml @ 1,000 mls/hr Q1H ONCE IV 11/12/16 08:30 11/12/16 09:29 DC 11/12/16 08:58 Vancomycin HCl 250 ml @ 125 mls/hr ONCE IVPB 11/12/16 09:30 11/12/16 11:29 Piperacillin Sod/ Tazobactam Sod 100 ml @ 200 mls/hr ONCE ONCE IVPB 11/12/16 09:30 11/12/16 09:59 11/12/16 09:27 Sodium Chloride (NS) 1,000 ml @ 1,000 mls/hr Q1H ONCE IV 11/12/16 10:00 11/12/16 10:59 Procedures/MDM Patient was taken to a room, seen and evaluated. Comfort measures were initiated. Diagnostic tests were ordered and reviewed. 3 LEAD RHYTHM STRIP: Normal sinus rhythm without ectopy EK lead EKG reviewed by myself: Normal Sinus Rhythm Normal [place] and intervals Nonspecific ST and T-wave changes without ST elevation Impression: Nonspecific EKG RADIOLOGY: reviewed with the radiologist CONSULTATION: Dr. Cohen was notified for admission. Dr. Reynaga was notified for wound care REEVALUATION: Patient pain was able to be controlled with narcotics. She remained hemodynamically stable MEDICAL DECISION MAKIN-year-old female with advanced peripheral vascular disease presents with bilateral lower extremity gangrene and evidence of ongoing ischemia with bilateral lower leg pain. At this point, her lactate is elevated with her evidence of gangrene raising the concern that she may be septic from the gangrenous feet. Patient has been started on broad-spectrum antibiotics as well as aggressive fluid resuscitation. Patient will be admitted to the hospital for further vascular surgery consultation, consideration of bypass, antibiotics and consideration of further amputation. Departure Diagnosis: Primary Impression: Peripheral vascular disease Additional Impression: Toe gangrene Condition: Serious LANETTE DARBY Nov 12, 2016 09:59
[2016-11-12 13:16] VITALS: TEMP 98.2
[2016-11-12 14:00] VITALS: BP 153/74; RESP 19
[2016-11-12] MEDS ORDERED: OMEP40CA6 PO (14:41)
[2016-11-12] MEDS ORDERED: ONDANSETRON 4 MG INJ IV PRN (16:00)
[2016-11-12] MEDS ORDERED: ACETAMINOPHEN 325 MG TAB PO PRN (16:00)
[2016-11-12] MEDS: SOD CHLORIDE 0.9% 1,000 ML IV SCH (16:13)
--- NOTE | 2016-11-12 16:29 | HP ---
Date/Time of Note Date/Time of Note DATE: 11/12/16 TIME: 16:00 Assessment/Plan VTE Prophylaxis VTE Prophylaxis Intervention: LMWH, SCD's Assessment/Plan Assessment/Plan - Possible postop infection, patient status post bilateral fifth and left fourth toe amputation by Dr. Reynaga, continue antibiotics. Dr. Bowen will be following patient from infectious disease consultation. - Severe left lower extremity pain with concern for ischemia, Dr. Valencia is asked to see patient in vascular surgery consultation. Continue pain medication. - End-stage renal disease status post renal transplant. Continues CellCept and tacrolimus. - Hypertension. Dr. Powell will be following from cardiology consultation. 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 - Anemia of chronic kidney disease. - Severe peripheral arterial disease. Further recommendations based on clinical course. Plan of care discussed with Dr. Cohen. HPI/ROS Admit Date/Time Admit Date/Time Nov 12, 2016 at 10:06 Hx of Present Illness The patient is 61-year-old female known to me from previous admission. Patient with history of end-stage renal disease status post renal transplant in 2009, hypertension, dyslipidemia, history of bilateral upper extremity pyoderma gangrenosum lesions versus embolic lesions, history of left lower extremity DVT, and bilateral lower extremity atherosclerosis. Patient underwent bilateral lower extremities angiogram with multiple vascular intervention in May [address] Valencia. Patient had bilateral eye gangrenosa toes and underwent recently bilateral toes amputation by Dr. Reynaga 5 days ago. Patient presented to the emergency room with severe left lower extremity pain extending from the toe to the the cuff. Patient also complains of chills. Patient denies any nausea vomiting. patient had elevated lactate and slightly elevated white blood cells, patient takes CellCept and tacrolimus. Patient was started on broad-spectrum antibiotics in the emergency room and admitted for further evaluation and management. ROS 12 point review of system is negative unless what mentioned in HPI PMH/Family/Social Past Medical History Per HPI Past Surgical History Status post renal transplant in 2009, status post left upper extremity arteriovenous fistula for dialysis many years ago, status post skin graft to the thigh and status post numerous vascular interventions, status post recent bilateral 5th toes amputation. Family History Significant Family History: no pertinent family hx Social History Alcohol Use: none Smoking Status: Never smoker Drug Use: none Exam/Review of Systems Vital Signs Vitals Vital Signs Date Time Temp Pulse Resp B/P Pulse Ox O2 Delivery O2 Flow Rate FiO2 11/12/16 14:00 97.9 88 19 153/74 99 11/12/16 13:16 Room Air Labs Result Diagram: 11/12/16 0820 11/12/16 0820 Medications Medications Current Medications Sodium Chloride (NS) 1,000 ml @ 60 mls/hr [id number] IV ; Start 11/12/16 at 15:54 ; Status UNV Ondansetron HCl (Zofran Inj) 4 mg Q6H PRN IV NAUSEA AND/OR VOMITING; Start at 16:00; Status UNV Acetaminophen (Tylenol Tab) 650 mg Q6H PRN PO PAIN LEVEL 1-3 OR FEVER; Start at 16:00; Status UNV Morphine Sulfate (morphine) 2 mg Q4H PRN IV SEVERE PAIN LEVEL 7-10; Start 11/12 at 16:00; Status UNV Pantoprazole (Protonix Tab) 40 mg DAILY@06 PO ; Start 11/13/16 at 06:00; Status UNV Enoxaparin Sodium (Lovenox) 30 mg DAILY SC ; Start 11/13/16 at 09:00; Status UNV LES GILLILAND Nov 12, 2016 16:11
--- NOTE | 2016-11-12 17:04 | CONS ---
Date/Time of Note Date/Time of Note DATE: 11/12/16 TIME: 16:51 Assessment/Plan Assessment/Plan Additional Assessment/Plan 1. Bilateral LE gangrene, s/p recent amputation by podiatry, Rule out Ischemia of LE 2. h/o donor kidney transplant in 2009 at [facility], currently on immunosuppression with Prograf, CellCept 4. 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 History of hypertension. 6. History of diabetes mellitus. 7. History of previous left upper extremity arteriovenous fistula. 8. Mild Metabolic acidosis, Hypercalcemia Plan: IV abx as per Infectious disease service will start bicitra 30ml pO TID for acidosis IVF NS Vascular surgery is planning for LE angiogram so we will order mucomyst to avoid Contrast induced nephropathy Continue current immunosuppresion with prograf,cellcept, no prednisone due to hypercalcemia will continue to follow up Pt is seen in med/surge floor, Total time spent in pt evaluation, management and communicating with nursing staff is more than 90 minutes Consultation Date/Type/Reason Admit Date/Time Nov 12, 2016 at 10:06 Date of Consultation: Nov 12, 2016 Type of Consultation: NEPHROLOGY Reason for Consultation Kidney transplant, on Immunosuppression to prevent contrast induced nephropathy, severe PVD Referring Provider: KRISTIN HALL MD Hx of Present Illness 61-year-old female known to me from previous admission. 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 Patient underwent bilateral lower extremities angiogram with multiple vascular intervention in May [address] Valencia. Patient had bilateral dry gangrenous toes and underwent recently bilateral toes amputation by Dr. Reynaga 5 days ago. Patient presented to the emergency room with severe left lower extremity pain extending from the toe to the the cuff. Patient also complains of chills. Patient denies any nausea vomiting. patient had elevated lactate and slightly elevated white blood cells. Patient was started on broad-spectrum antibiotics in the emergency room and admitted for further evaluation and management. Vascular surgery has been consulted on case and Possible plan for LE angiogram, Renal has been consulted for management of immunosuppresion and to prevent contrast induced nephropathy. Constitutional: no complaints Eyes: no complaints ENT: no complaints Respiratory: no complaints Cardiovascular: no complaints Gastrointestinal: no complaints Genitourinary: no complaints Musculoskeletal: other (left lower leg pain, with gangrene ) Skin: skin lesions Neurologic: no complaints Endocrine: no complaints Lymphatic: no complaints Immunologic: no complaints Past Medical History Medical History: coronary artery disease, high cholesterol, hypertension, other (peripheral vascular diseasea, atherosclerosis ) Past Surgical History Past Surgical Hx: other (Bilatearal Toe amputation, H/o Kideny transplatn in 2009) Family History Significant Family History: no pertinent family hx Social History Alcohol Use: none Smoking Status: Never smoker Drug Use: none Exam/Review of Systems Vital Signs Vitals Vital Signs Date Time Temp Pulse Resp B/P Pulse Ox O2 Delivery O2 Flow Rate FiO2 11/12/16 14:00 97.9 88 19 153/74 99 11/12/16 13:16 Room Air Exam Constitutional: alert, oriented Psych: no complaints Head: atraumatic, normocephalic Eyes: nl conjunctiva ENMT: nl external ears & nose Neck: non-tender, supple Respiratory: clear to auscultation, diminished breath sounds, normal air movement Cardiovascular: nl pulses, regular rate and rhythm Gastrointestinal: non-tender, soft Genitourinary - Female: other (deferred) Musculoskeletal: other (gangrenous toes of both lower extremities. Her recent operative amputations are healing, but with poor healing noted. No new trauma is noted.) Extremities: edema, other (diminished pulses in both LE ) Neurological: CHIP SILO TENDER II-XII intact Lymph: nl lymph nodes Results Result Diagram: 11/12/16 0820 11/12/16 0820 Results 24 hrs Laboratory Tests Test 11/12/16 08:19 11/12/16 08:20 11/12/16 11:30 11/12/16 13:30 Bedside Glucose 129 White Blood Count 10.5 # Red Blood Count 4.71 Hemoglobin 12.8 Hematocrit 39.9 Mean Corpuscular Volume 84.7 Mean Corpuscular Hemoglobin 27.2 L Mean Corpuscular Hemoglobin Concent 32.1 Red Cell Distribution Width 14.5 Platelet Count 239 # Mean Platelet Volume 13.0 H Neutrophils % 84.4 H Lymphocytes % 7.3 L Monocytes % 7.5 Eosinophils % 0.4 Basophils % 0.1 Nucleated Red Blood Cells % 0.0 Neutrophils # 8.8 H Lymphocytes # 0.8 Monocytes # 0.8 Eosinophils # 0.0 Basophils # 0.0 Nucleated Red Blood Cells # 0.0 Prothrombin Time 15.1 H Prothrombin Time Ratio 1.2 INR International Normalized Ratio 1.18 Activated Partial Thromboplast Time 29.0 Sodium Level 141 Potassium Level 4.1 Chloride Level 104 Carbon Dioxide Level 18 L Anion Gap 23 H Blood Urea Nitrogen 20 Creatinine 0.88 Glucose Level 139 Lactic Acid Level 2.3 *H 1.3 0.9 Calcium Level 10.3 H Total Bilirubin 0.2 Direct Bilirubin 0.00 Indirect Bilirubin 0.2 Aspartate Amino Transf (AST/SGOT) 22 Alanine Aminotransferase (ALT/SGPT) 18 Alkaline Phosphatase 165 H Troponin I 0.034 Total Protein 7.9 Albumin 4.5 Globulin 3.40 H Albumin/Globulin Ratio 1.32 Medications Medications Current Medications Sodium Chloride (NS) 1,000 ml @ 60 mls/hr [id number] IV Last administered on 11/12t 16:13; Admin Dose 60 MLS/HR; Start 11/12/16 at 15:54 Ondansetron HCl (Zofran Inj) 4 mg Q6H PRN IV NAUSEA AND/OR VOMITING; Start at 16:00 Acetaminophen (Tylenol Tab) 650 mg Q6H PRN PO PAIN LEVEL 1-3 OR FEVER; Start at 16:00 Morphine Sulfate (morphine) 2 mg Q4H PRN IV SEVERE PAIN LEVEL 7-10; Start 11/12 at 16:00 Pantoprazole (Protonix Tab) 40 mg DAILY@06 PO ; Start 11/13/16 at 06:00 Enoxaparin Sodium (Lovenox) 30 mg DAILY SC ; Start 11/13/16 at 09:00 Aspirin (Halfprin) 81 mg DAILY PO ; Start 11/13/16 at 09:00 Diltiazem HCl (Cardizem Cd) 180 mg DAILY PO ; Start 11/13/16 at 09:00 Famotidine (Pepcid) 40 mg HS PO ; Start 11/12/16 at 21:00 Folic Acid (Folic Acid) 1 mg DAILY PO ; Start 11/13/16 at 09:00 Metoprolol Tartrate (Lopressor) 50 mg BID PO ; Start 11/12/16 at 21:00 Mycophenolate Mofetil (Cellcept) 1,000 mg BID PO ; Start 11/12/16 at 21:00 Tacrolimus (Prograf) 2 mg Q12 PO ; Start 11/12/16 at 21:00 RAMON KEMP MD Nov 12, 2016 17:02
[2016-11-12] MEDS ORDERED: PENDING SANTYL ORDER FOR WOUND CARE XX PRN (19:00)
--- NOTE | 2016-11-12 19:46 | CONS ---
Date/Time of Note Date/Time of Note DATE: 11/12/16 TIME: 19:45 Consultation Date/Type/Reason Admit Date/Time Nov 12, 2016 at 10:06 Type of Consultation: ID Reason for Consultation Antibiotic management. Constitutional: no complaints Eyes: no complaints ENT: no complaints Respiratory: no complaints Cardiovascular: no complaints Gastrointestinal: no complaints Genitourinary: no complaints Musculoskeletal: other (left lower leg pain, with gangrene ) Skin: skin lesions Neurologic: no complaints Endocrine: no complaints Lymphatic: no complaints Psychological: no complaints Immunologic: no complaints Past Medical History Medical History: coronary artery disease, high cholesterol, hypertension, other (peripheral vascular diseasea, atherosclerosis ) Past Surgical History Past Surgical Hx: other (Bilatearal Toe amputation, H/o Kideny transplatn in 2009) Social History Alcohol Use: none Smoking Status: Never smoker Drug Use: none Exam/Review of Systems Vital Signs Vitals Vital Signs Date Time Temp Pulse Resp B/P Pulse Ox O2 Delivery O2 Flow Rate FiO2 11/12/16 14:00 97.9 88 19 153/74 99 11/12/16 13:16 Room Air Results Result Diagram: 11/12/16 0820 11/12/16 0820 Results 24 hrs Laboratory Tests Test 11/12/16 08:19 11/12/16 08:20 11/12/16 11:30 11/12/16 13:30 Bedside Glucose 129 White Blood Count 10.5 # Red Blood Count 4.71 Hemoglobin 12.8 Hematocrit 39.9 Mean Corpuscular Volume 84.7 Mean Corpuscular Hemoglobin 27.2 L Mean Corpuscular Hemoglobin Concent 32.1 Red Cell Distribution Width 14.5 Platelet Count 239 # Mean Platelet Volume 13.0 H Neutrophils % 84.4 H Lymphocytes % 7.3 L Monocytes % 7.5 Eosinophils % 0.4 Basophils % 0.1 Nucleated Red Blood Cells % 0.0 Neutrophils # 8.8 H Lymphocytes # 0.8 Monocytes # 0.8 Eosinophils # 0.0 Basophils # 0.0 Nucleated Red Blood Cells # 0.0 Prothrombin Time 15.1 H Prothrombin Time Ratio 1.2 INR International Normalized Ratio 1.18 Activated Partial Thromboplast Time 29.0 Sodium Level 141 Potassium Level 4.1 Chloride Level 104 Carbon Dioxide Level 18 L Anion Gap 23 H Blood Urea Nitrogen 20 Creatinine 0.88 Glucose Level 139 Lactic Acid Level 2.3 *H 1.3 0.9 Calcium Level 10.3 H Total Bilirubin 0.2 Direct Bilirubin 0.00 Indirect Bilirubin 0.2 Aspartate Amino Transf (AST/SGOT) 22 Alanine Aminotransferase (ALT/SGPT) 18 Alkaline Phosphatase 165 H Troponin I 0.034 Total Protein 7.9 Albumin 4.5 Globulin 3.40 H Albumin/Globulin Ratio 1.32 Test 11/12/16 18:20 Troponin I 0.044 Medications Medications Current Medications Sodium Chloride (NS) 1,000 ml @ 75 mls/hr [id number] IV Last administered on 11/12t 16:13; Admin Dose 60 MLS/HR; Start 11/12/16 at 15:54 Ondansetron HCl (Zofran Inj) 4 mg Q6H PRN IV NAUSEA AND/OR VOMITING; Start at 16:00 Acetaminophen (Tylenol Tab) 650 mg Q6H PRN PO PAIN LEVEL 1-3 OR FEVER; Start at 16:00 Morphine Sulfate (morphine) 2 mg Q4H PRN IV SEVERE PAIN LEVEL 7-10; Start 11/12 at 16:00 Pantoprazole (Protonix Tab) 40 mg DAILY@06 PO ; Start 11/13/16 at 06:00 Enoxaparin Sodium (Lovenox) 30 mg DAILY SC ; Start 11/13/16 at 09:00 Aspirin (Halfprin) 81 mg DAILY PO ; Start 11/13/16 at 09:00 Diltiazem HCl (Cardizem Cd) 180 mg DAILY PO ; Start 11/13/16 at 09:00 Famotidine (Pepcid) 40 mg HS PO ; Start 11/12/16 at 21:00 Folic Acid (Folic Acid) 1 mg DAILY PO ; Start 11/13/16 at 09:00 Mycophenolate Mofetil (Cellcept) 1,000 mg BID PO ; Start 11/12/16 at 21:00 Tacrolimus (Prograf) 2 mg Q12 PO ; Start 11/12/16 at 21:00 Citric Acid/ Sodium Citrate (Bicitra) 30 ml TID PO ; Start 11/12/16 at 21:00 Acetylcysteine (Nac) 1,200 mg BID PO ; Start 11/12/16 at 21:00 Metoprolol Tartrate (Lopressor) 75 mg BID PO ; Start 11/12/16 at 21:00 Gabapentin (Neurontin) 100 mg TID PO ; Start 11/12/16 at 21:00 Miscellaneous Information (Pending [facility] Order For Wound Care) This patient hernandez... PRN PRN XX WOUND CARE; Start 11/12/16 at 19:00 TRISTAN CHRISTIE MD Nov 12, 2016 19:45
[2016-11-12 20:00] VITALS: BP 143/76; RESP 18
[2016-11-12] MEDS ORDERED: COLLAGENASE 30 GM TUBE TOP PRN (20:00)
[2016-11-12] MEDS: morphine 2 MG INJ IV PRN (20:01)
[2016-11-12] MEDS: CITRIC ACID/NA CITRATE 30 ML CUP PO SCH (20:15)
[2016-11-12] MEDS: FAMOTIDINE 20 MG TAB PO SCH (20:16)
[2016-11-12] MEDS: GABAPENTIN 100 MG CAP PO SCH (20:16)
[2016-11-12] MEDS: ACETYLCYSTEINE 600 MG CAP PO SCH (20:16)
[2016-11-12] MEDS: TACROLIMUS 1 MG CAP PO SCH (20:16)
[2016-11-12] MEDS: MYCOPHENOLATE 250 MG CAP PO SCH (20:16)
[2016-11-12] MEDS: METOPROLOL 25 MG TAB PO SCH (20:17)
[2016-11-12] MEDS ORDERED: METOPROLOL 50 MG TAB PO SCH (21:00)
[2016-11-12] MEDS: COLLAGENASE 30 GM TUBE TOP SCH (22:21)
[2016-11-12] MEDS ORDERED: morphine 2 MG INJ IV ONE (23:30)
[2016-11-13] MEDS: morphine 2 MG INJ IV PRN ×3 (00:41→20:41)
[2016-11-13 02:11] VITALS: BP 134/62; RESP 19
[2016-11-13] MEDS: SOD CHLORIDE 0.9% 1,000 ML IV SCH ×2 (05:27→09:18)
[2016-11-13 05:39] LABS: ABNORMAL IP MESSAGE 1; BASOPHILS % 0.2 % (0.0-2.0); EOSINOPHILS # 0.1 10^3/ul (0.0-0.5); HEMATOCRIT 32.1 % (37.0-47.0); HEMOGLOBIN 9.9 g/dl (12.0-16.0); LYMPHOCYTES # 0.8 10^3/ul (0.8-2.9); LYMPHOCYTES % 13.8 % (15.0-51.0); MEAN CORPUSCULAR HEMOGLOBIN 26.3 pg (29.0-33.0); MEAN CORPUSCULAR HGB CONC 30.8 g/dl (32.0-37.0); MEAN CORPUSCULAR VOLUME 85.1 fl (82.0-101.0); MEAN PLATELET VOLUME 13.5 fl (7.4-10.4); MONOCYTE # 1.2 10^3/ul (0.3-0.9); MONOCYTES % 20.1 % (0.0-11.0); NEUTROPHIL # 3.9 10^3/ul (1.6-7.5); NEUTROPHILS % 64.6 % (39.0-77.0); PLATELET COUNT 193 10^3/UL (140-415); RED BLOOD COUNT 3.77 10^6/ul (4.20-5.40); RED CELL DISTRIBUTION WIDTH 14.6 % (11.5-14.5); WHITE BLOOD COUNT 6.1 10^3/ul (4.8-10.8)
[2016-11-13 05:51] LABS: POSITIVE DIFF @See below
[2016-11-13] MEDS: PANTOPRAZOLE (EC) 40 MG TAB PO SCH (05:55)
[2016-11-13 06:13] LABS: CHOL/HDL RATIO 4.7 RATIO
[2016-11-13 06:18] LABS: ALBUMIN 3.4 g/dl (3.3-4.9); ALBUMIN/GLOBULIN RATIO 1.25; BILIRUBIN,INDIRECT 0.3 mg/dl (0-1.1); BILIRUBIN,TOTAL 0.3 mg/dl (0.2-1.3); CALCIUM 9.1 mg/dl (8.4-10.2); CREATININE 0.71 mg/dl (0.44-1.00); MAGNESIUM 1.3 mg/dl (1.7-2.5); POTASSIUM 3.6 mmol/L (3.5-5.1); TOTAL PROTEIN 6.1 g/dl (6.1-8.1)
--- NOTE | 2016-11-13 06:27 | CONS ---
DATE OF ADMISSION: 11/12/2016 DATE OF CONSULTATION: 11/12/2016 REASON FOR CONSULTATION: Preoperative evaluation. HISTORY OF PRESENT ILLNESS: Ms. Aguillon is 61-year-old female with a history of hypertension, dyslipidemia, renal transplant 2009, bilateral lower extremity nonhealing ulcers, history of lower extremity DVT, peripheral arterial disease, status post bilateral left toe amputations, who presented with worsening infection and pain. Patient is being evaluated by Vascular Surgery with plans for peripheral bypass. Given these findings, cardiology consult has been requested. At this time, patient denies chest pain or shortness of breath. PAST MEDICAL HISTORY: As above in HPI. MEDICATION: Currently in the hospital, Lovenox subcu daily, aspirin 81 mg a day, diltiazem 180 mg a day, folic acid 1 mg daily, Protonix 40 mg daily, metoprolol 50 mg b.i.d., sulfa 1000 mg b.i.d., ProGraf 2 mg q.12, Bicitra, acetylcysteine, morphine p.r.n., Tylenol p.r.n., Zofran p.r.n. ALLERGIES: NO KNOWN DRUG ALLERGIES. SOCIAL HISTORY: No tobacco, EtOH or illicit drug use. FAMILY HISTORY: Negative for sudden cardiac or early CAD. REVIEW OF SYSTEMS: As above in HPI. CONSTITUTIONAL: No fevers, chills. RESPIRATORY: No current shortness of breath. CARDIOVASCULAR: No current chest pain. GASTROINTESTINAL: No vomiting. Abdominal pain. GENITOURINARY: No hematuria. MUSCULOSKELETAL: Multiple nonhealing ulcerations of the feet and toes, status post lower extremity bilateral toe amputations. Difficult to palpate distal pulses bilaterally and posterior tibial. No significant edema. LABORATORY: As above in HPI. No further labs are reviewed at this time. IMAGING STUDIES: As above in HPI. With chest x-ray revealing mild left basilar atelectasis. New 7 mm sclerotic lesion of the left humeral head. Small hiatal hernia. ELECTROCARDIOGRAM: No electrocardiograms are reviewed at this time. ECHOCARDIOGRAM: Most recent echo from May 2016 revealing EF of 60 percent to 65 percent with [id number] aortic stenosis, moderate tricuspid regurgitation. IMPRESSION: 1. Preoperative evaluation prior to lower extremity peripheral bypass surgery. 2. Hypertension, uncontrolled. 3. Possible coronary artery disease, on medications. 4. Peripheral arterial disease with nonhealing lower extremity ulcerations. 5. Status post lower extremity toe amputations. 6. Status post renal transplant, on immunosuppressive medications. 7. Lower extremity gangrenous changes. RECOMMENDATIONS: 1. At this time, would maintain patient on beta donna and diltiazem with further up-titration if necessary to improve overall systolic blood pressure control. 2. Would send troponin q.6 x2 to ensure patient has not had any recent coronary syndrome since the patient has upcoming surgery. 3. Given patient's multiple cardiac risk factors, I believe this patient will benefit from preoperative stress test. a Lexiscan first thing in the morning. 4. Continue the patient's aspirin for prophylaxis cardiac events. 5. Check a fasting lipid panel and initiate lipid-lowering medication if necessary. 6. Continue the patient's immunosuppressive medications. 7. Follow the patient's volume status closely. 8. Continue local wound care. Thank you for allowing to take part in the care of this patient. I will continue to follow very closely with you. Further recommendations will be made as the patient progresses though her inpatient hospital course. Dictated By: Mp Gaffney /santiago/fatuma /Document#: [id number] CC: Jeffy Cohen MD; Aung Valencia MD;*[facility]*
[2016-11-13 08:49] VITALS: BP 159/74; RESP 16
[2016-11-13] MEDS: FOLIC ACID 1 MG TAB PO SCH (09:00)
[2016-11-13] MEDS: CITRIC ACID/NA CITRATE 30 ML CUP PO SCH ×3 (09:00→20:42)
[2016-11-13] MEDS: GABAPENTIN 100 MG CAP PO SCH ×3 (09:00→20:42)
[2016-11-13] MEDS: ASPIRIN (EC) 81 MG TAB PO SCH (09:00)
[2016-11-13] MEDS: TACROLIMUS 1 MG CAP PO SCH ×2 (09:00→20:44)
[2016-11-13] MEDS: ACETYLCYSTEINE 600 MG CAP PO SCH ×2 (09:00→20:43)
[2016-11-13] MEDS: MYCOPHENOLATE 250 MG CAP PO SCH ×2 (09:00→20:42)
--- NOTE | 2016-11-13 09:03 | RADRPT ---
Vent Rate: 67 bpm RR Interval: 0 msec [place] Interval: 154 msec QRS Duration: 88 msec QT Interval: 416 msec QTC Interval: 439 msec P-R-T [place]: 58 - 23 - 25 degrees Normal sinus rhythm Normal ECG Electronically Signed By: Rashad Owens [id number]
[2016-11-13] MEDS: ENOXAPARIN 30 MG/0.3 ML SYG SC SCH (09:19)
[2016-11-13] MEDS: COLLAGENASE 30 GM TUBE TOP SCH ×2 (09:20→15:34)
[2016-11-13] MEDS: METOPROLOL 25 MG TAB PO SCH ×2 (09:53→20:43)
[2016-11-13] MEDS: DILTIAZEM (CD) 180 MG CAP PO SCH (09:54)
--- NOTE | 2016-11-13 13:08 | CONS ---
Date/Time of Note Date/Time of Note DATE: 11/13/16 TIME: 13:06 Assessment/Plan Assessment/Plan Chief Complaint/Hosp Course 61-year-old female known to me from previous admission. 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 Patient underwent bilateral lower extremities angiogram with multiple vascular intervention in May [address] Valencia. Patient had bilateral dry gangrenous toes and underwent recently bilateral toes amputation by Dr. Reynaga 5 days ago. Patient presented to the emergency room with severe left lower extremity pain extending from the toe to the the cuff. Patient also complains of chills. Patient denies any nausea vomiting. patient had elevated lactate and slightly elevated white blood cells. Patient was started on broad-spectrum antibiotics in the emergency room and admitted for further evaluation and management. Vascular surgery has been consulted on case and Possible plan for LE angiogram, Renal has been consulted for management of immunosuppresion and to prevent contrast induced nephropathy. Problems: Additional Assessment/Plan 1. Bilateral LE gangrene, s/p recent amputation by podiatry, Rule out Ischemia of LE 2. h/o donor kidney transplant in 2009 at [facility], currently on immunosuppression with Prograf, CellCept 4. 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 History of hypertension. 6. History of diabetes mellitus. 7. History of previous left upper extremity arteriovenous fistula. 8. Mild Metabolic acidosis, Hypercalcemia Plan: IV abx as per Infectious disease service will start bicitra 30ml pO TID for acidosis pt is developing hyperchloremic metaboilc acidosis, d/c NS< start 1/2 NS at 75 cc/hr Vascular surgery is planning for LE angiogram so we will order mucomyst to avoid Contrast induced nephropathy Continue current immunosuppresion with prograf,cellcept, no prednisone due to hypercalcemia will continue to follow up Consultation Date/Type/Reason Admit Date/Time Nov 12, 2016 at 10:06 Initial Consult Date 11/12/16 Type of Consultation: NEPHROLOGY Referring Provider: KRISTIN HALL MD Exam/Review of Systems Vital Signs Vitals Vital Signs Date Time Temp Pulse Resp B/P Pulse Ox O2 Delivery O2 Flow Rate FiO2 11/13/16 08:49 98.3 72 16 159/74 98 11/12/16 13:16 Room Air Intake and Output 11/12/16 11/12/16 11/13/16 15:00 23:00 07:00 Intake Total 120 ml 1045 ml Output Total 550 ml Balance 120 ml 495 ml Exam Constitutional: alert, oriented Psych: no complaints Head: atraumatic, normocephalic Eyes: nl conjunctiva ENMT: nl external ears & nose Neck: non-tender, supple Respiratory: clear to auscultation, diminished breath sounds, normal air movement Cardiovascular: nl pulses, regular rate and rhythm Gastrointestinal: non-tender, soft Genitourinary - Female: other (deferred) Musculoskeletal: other (gangrenous toes of both lower extremities. Her recent operative amputations are healing, but with poor healing noted. No new trauma is noted.) Extremities: edema, other (diminished pulses in both LE ) Neurological: LEAD MECHANIC II-XII intact Lymph: nl lymph nodes Results Result Diagram: 11/13/16 0448 11/13/16 0448 Results 24 hrs Laboratory Tests Test 11/12/16 13:30 11/12/16 18:20 11/13/16 00:39 11/13/16 04:48 Lactic Acid Level 0.9 Troponin I 0.044 0.041 White Blood Count 6.1 # Red Blood Count 3.77 L Hemoglobin 9.9 #L Hematocrit 32.1 L Mean Corpuscular Volume 85.1 Mean Corpuscular Hemoglobin 26.3 L Mean Corpuscular Hemoglobin Concent 30.8 L Red Cell Distribution Width 14.6 H Platelet Count 193 Mean Platelet Volume 13.5 H Neutrophils % 64.6 Lymphocytes % 13.8 L Monocytes % 20.1 H Eosinophils % 1.0 Basophils % 0.2 Nucleated Red Blood Cells % 0.0 Neutrophils # 3.9 Lymphocytes # 0.8 Monocytes # 1.2 H Eosinophils # 0.1 Basophils # 0.0 Nucleated Red Blood Cells # 0.0 Sodium Level 143 Potassium Level 3.6 Chloride Level 111 H Carbon Dioxide Level 19 L Anion Gap 17 H Blood Urea Nitrogen 10 # Creatinine 0.71 Glucose Level 85 # Calcium Level 9.1 Magnesium Level 1.3 L Total Bilirubin 0.3 Direct Bilirubin 0.00 Indirect Bilirubin 0.3 Aspartate Amino Transf (AST/SGOT) 17 Alanine Aminotransferase (ALT/SGPT) 23 Alkaline Phosphatase 112 Total Protein 6.1 # Albumin 3.4 # Globulin 2.70 Albumin/Globulin Ratio 1.25 Triglycerides Level 105 Cholesterol Level 118 LDL Cholesterol, Calculated 72 HDL Cholesterol 25 L Cholesterol/HDL Ratio 4.7 Medications Medications Current Medications Sodium Chloride (NS) 1,000 ml @ 75 mls/hr [id number] IV Last administered on 11/13 09:18; Admin Dose 75 MLS/HR; Start 11/12/16 at 15:54 Ondansetron HCl (Zofran Inj) 4 mg Q6H PRN IV NAUSEA AND/OR VOMITING; Start at 16:00 Acetaminophen (Tylenol Tab) 650 mg Q6H PRN PO PAIN LEVEL 1-3 OR FEVER; Start at 16:00 Morphine Sulfate (morphine) 2 mg Q4H PRN IV SEVERE PAIN LEVEL 7-10 Last administered on 11/13/16 06:10; Admin Dose 2 MG; Start 11/12/16 at 16:00 Pantoprazole (Protonix Tab) 40 mg DAILY@06 PO Last administered on 11/13/16 05 :55; Admin Dose 40 MG; Start 11/13/16 at 06:00 Enoxaparin Sodium (Lovenox) 30 mg DAILY SC Last administered on 11/13/16 09:19 ; Admin Dose 30 MG; Start 11/13/16 at 09:00 Aspirin (Halfprin) 81 mg DAILY PO ; Start 11/13/16 at 09:00 Diltiazem HCl (Cardizem Cd) 180 mg DAILY PO Last administered on 11/13/16 09: 54; Admin Dose 180 MG; Start 11/13/16 at 09:00 Famotidine (Pepcid) 40 mg HS PO Last administered on 11/12/16 20:16; Admin Dose 40 MG; Start 11/12/16 at 21:00 Folic Acid (Folic Acid) 1 mg DAILY PO ; Start 11/13/16 at 09:00 Mycophenolate Mofetil (Cellcept) 1,000 mg BID PO Last administered on 20:16; Admin Dose 1,000 MG; Start 11/12/16 at 21:00 Tacrolimus (Prograf) 2 mg Q12 PO Last administered on 11/12/16 20:16; Admin Dose 2 MG; Start 11/12/16 at 21:00 Citric Acid/ Sodium Citrate (Bicitra) 30 ml TID PO Last administered on 20:15; Admin Dose 30 ML; Start 11/12/16 at 21:00 Acetylcysteine (Nac) 1,200 mg BID PO Last administered on 11/12/16 20:16; Admin Dose 1,200 MG; Start 11/12/16 at 21:00 Metoprolol Tartrate (Lopressor) 75 mg BID PO Last administered on 11/13/16 09: 53; Admin Dose 75 MG; Start 11/12/16 at 21:00 Gabapentin (Neurontin) 100 mg TID PO Last administered on 11/12/16 20:16; Admin Dose 100 MG; Start 11/12/16 at 21:00 Collagenase (Santyl) 1 applic DAILY TOP Last administered on 11/13/16 09:20; Admin Dose 1 APPLIC; Start 11/12/16 at 21:00 Collagenase (Santyl) 1 applic PRN PRN TOP WOUND CARE; Start 11/12/16 at 20:00 RAMON KEMP MD Nov 13, 2016 13:08
--- NOTE | 2016-11-13 14:42 | CONS ---
Date/Time of Note Date/Time of Note DATE: 11/13/16 TIME: 14:37 Assessment/Plan Assessment/Plan Chief Complaint/Hosp Course IMP: 1. Pre-op for LE vascular procedure 2.HTN-uncontrolled 3,CAD 4.PAD with nonhealing LE wounds Recc: -Tele -serial ecg's -Continue dilt/BB -Start ACEI to improve BP control -local wound care -pre-op lecxiscan today Problems: Consultation Date/Type/Reason Admit Date/Time Nov 12, 2016 at 10:06 Initial Consult Date 11/12/16 Type of Consultation: cardiology Reason for Consultation pre-op Referring Provider: KRISTIN HALL MD Exam/Review of Systems Vital Signs Vitals Vital Signs Date Time Temp Pulse Resp B/P Pulse Ox O2 Delivery O2 Flow Rate FiO2 11/13/16 08:49 98.3 72 16 159/74 98 11/12/16 13:16 Room Air Intake and Output 11/12/16 11/12/16 11/13/16 15:00 23:00 07:00 Intake Total 120 ml 1045 ml Output Total 550 ml Balance 120 ml 495 ml Exam Review of Systems: CONSTITUTIONAL: No fevers, chills. PULMONARY: No sob CARDIOVASCULAR: No chest pain/palpitations GASTROINTESTINAL: No nausea/vomiting. GENITOURINARY: No hematuria/dysuria. MUSCULOSKELETAL: No myagias/arthalgias. PSYCHIATRIC: The patient denies depression. NEUROLOGIC: No weakness Constitutional: alert Psych: no complaints Head: normocephalic Neck: jvd (8 cm water), supple Respiratory: diminished breath sounds Cardiovascular: regular rate and rhythm Gastrointestinal: non-tender, soft Musculoskeletal: muscle tone (normal) Extremities: other (Dressing covering bnoth feet) Results Result Diagram: 11/13/16 0448 11/13/16 0448 Results 24 hrs Laboratory Tests Test 11/12/16 18:20 11/13/16 00:39 11/13/16 04:48 Troponin I 0.044 0.041 White Blood Count 6.1 # Red Blood Count 3.77 L Hemoglobin 9.9 #L Hematocrit 32.1 L Mean Corpuscular Volume 85.1 Mean Corpuscular Hemoglobin 26.3 L Mean Corpuscular Hemoglobin Concent 30.8 L Red Cell Distribution Width 14.6 H Platelet Count 193 Mean Platelet Volume 13.5 H Neutrophils % 64.6 Lymphocytes % 13.8 L Monocytes % 20.1 H Eosinophils % 1.0 Basophils % 0.2 Nucleated Red Blood Cells % 0.0 Neutrophils # 3.9 Lymphocytes # 0.8 Monocytes # 1.2 H Eosinophils # 0.1 Basophils # 0.0 Nucleated Red Blood Cells # 0.0 Sodium Level 143 Potassium Level 3.6 Chloride Level 111 H Carbon Dioxide Level 19 L Anion Gap 17 H Blood Urea Nitrogen 10 # Creatinine 0.71 Glucose Level 85 # Calcium Level 9.1 Magnesium Level 1.3 L Total Bilirubin 0.3 Direct Bilirubin 0.00 Indirect Bilirubin 0.3 Aspartate Amino Transf (AST/SGOT) 17 Alanine Aminotransferase (ALT/SGPT) 23 Alkaline Phosphatase 112 Total Protein 6.1 # Albumin 3.4 # Globulin 2.70 Albumin/Globulin Ratio 1.25 Triglycerides Level 105 Cholesterol Level 118 LDL Cholesterol, Calculated 72 HDL Cholesterol 25 L Cholesterol/HDL Ratio 4.7 Medications Medications Current Medications Ondansetron HCl (Zofran Inj) 4 mg Q6H PRN IV NAUSEA AND/OR VOMITING; Start at 16:00 Acetaminophen (Tylenol Tab) 650 mg Q6H PRN PO PAIN LEVEL 1-3 OR FEVER; Start at 16:00 Morphine Sulfate (morphine) 2 mg Q4H PRN IV SEVERE PAIN LEVEL 7-10 Last administered on 11/13/16 06:10; Admin Dose 2 MG; Start 11/12/16 at 16:00 Pantoprazole (Protonix Tab) 40 mg DAILY@06 PO Last administered on 11/13/16 05 :55; Admin Dose 40 MG; Start 11/13/16 at 06:00 Enoxaparin Sodium (Lovenox) 30 mg DAILY SC Last administered on 11/13/16 09:19 ; Admin Dose 30 MG; Start 11/13/16 at 09:00 Aspirin (Halfprin) 81 mg DAILY PO ; Start 11/13/16 at 09:00 Diltiazem HCl (Cardizem Cd) 180 mg DAILY PO Last administered on 11/13/16 09: 54; Admin Dose 180 MG; Start 11/13/16 at 09:00 Famotidine (Pepcid) 40 mg HS PO Last administered on 11/12/16 20:16; Admin Dose 40 MG; Start 11/12/16 at 21:00 Folic Acid (Folic Acid) 1 mg DAILY PO ; Start 11/13/16 at 09:00 Mycophenolate Mofetil (Cellcept) 1,000 mg BID PO Last administered on 20:16; Admin Dose 1,000 MG; Start 11/12/16 at 21:00 Tacrolimus (Prograf) 2 mg Q12 PO Last administered on 11/12/16 20:16; Admin Dose 2 MG; Start 11/12/16 at 21:00 Citric Acid/ Sodium Citrate (Bicitra) 30 ml TID PO Last administered on 20:15; Admin Dose 30 ML; Start 11/12/16 at 21:00 Acetylcysteine (Nac) 1,200 mg BID PO Last administered on 11/12/16 20:16; Admin Dose 1,200 MG; Start 11/12/16 at 21:00 Metoprolol Tartrate (Lopressor) 75 mg BID PO Last administered on 11/13/16 09: 53; Admin Dose 75 MG; Start 11/12/16 at 21:00 Gabapentin (Neurontin) 100 mg TID PO Last administered on 11/12/16 20:16; Admin Dose 100 MG; Start 11/12/16 at 21:00 Collagenase (Santyl) 1 applic DAILY TOP Last administered on 11/13/16 09:20; Admin Dose 1 APPLIC; Start 11/12/16 at 21:00 Collagenase 1 applic 1 applic PRN PRN TOP WOUND CARE; Start 11/12/16 at 20:00 Sodium Chloride (1/2 NS) 1,000 ml @ 75 mls/hr [id number] IV ; Start 11/13/16 at 13 :30 TIMOTHY CORTES Nov 13, 2016 14:42
[2016-11-13] MEDS: SOD CHLORIDE 0.45% 1,000 ML IV SCH (15:25)
[2016-11-13 15:30] VITALS: BP 144/68; RESP 18
--- NOTE | 2016-11-13 16:19 | RADRPT ---
PROCEDURE: Lexiscan myocardial perfusion study CLINICAL INDICATION: 61 -year-old patient complaining of chest pain. TECHNIQUE: Lexiscan 0.4 mg intravenously separate acquisition gated myocardial perfusion SPECT usi ng Tc 99m Myoview 27.3 mCi intravenously at stress and Tc-99m Myoview, 8.6 mCi intravenously at rest was performed using the rest/stress sequence. Poststress Myoview SPECT images were obtained in the supine position. COMPARISON: October 24, 2015 FINDINGS: Perfusion images reveal no evidence of new perfusion defects. Unchanged mild predominantly nonreversible perfusion abnormality is seen in the inferior and inferos eptal tatum. Lexiscan post stress gated SPECT images demonstrate no wall motion abnormalities. IMPRESSION: 1. The type and distribution of the scintigraphic abnormalities are most consistent with an unchang ed predominantly nonreversible perfusion abnormality in the inferior and inferoseptal tatum. 2. No new wall motion abnormalities. 3. The left ventricle ejection fraction at stress is greater than 70%, unchanged since the previous study. A call report was made to Dr. Powell at 04:17 p.m. on November 13, 2016. RPTAT: HH .Delores Schilling MD, MD Date Time Electronically viewed and signed by .Delores Schilling MD, MD on 11/13/2016 16:18 .L/
[2016-11-13] MEDS ORDERED: REGADENOSON 0.4 MG/5 ML SYG ONE (18:03)
[2016-11-13 20:29] VITALS: BP 157/81; RESP 18
--- NOTE | 2016-11-13 20:31 | CONS ---
Date/Time of Note Date/Time of Note DATE: 11/13/16 TIME: 20:08 Assessment/Plan Assessment/Plan Chief Complaint/Hosp Course ID PROGRESS NOTE CURRENT ABX=> Start Clindamycin IV + Levaquin IV Vanco IV + Zosyn 11/12 * LABS11/13/16 0448 11/13/16 0448 24H INTERVAL SUMMARY * Sleeping, Afebrile, VSS, NAD * 11/12 BCx (-) * s/p Lexiscan-MIBI 11/13 w/unchanged predominantly nonreversible perfusion abnormality in the inferior and inferoseptal tatum. No new wall motion abnormalities. LVEF at stress is greater than 70%, unchanged since the previous study. PHYSICAL EXAMINATION: GENERAL: VSS, NAD HEENT: Unremarkable -- NECK: Supple, trachea midline. CHEST: Rise symmetrical, without dyspnea on observation HEART: Pulse RRR ABDOMEN: Soft, benign EXTREMITIES: Warm -- gangrenous toes ID ASSESSMENT 61 yo F admit with: 1. 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 Severe peripheral vascular disease status post angiogram with angioplasty 3. Hx of donor kidney transplant 2009, on Prograf, CellCept and prednisone. 4. 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 h/o donor kidney transplant in 2009 at [facility], currently on immunosuppression with Prograf, CellCept 6. HTN -> Poorly controlle 7. DM w/complications of DM polyneuropathies: renal, peripheral 8. History of previous left upper extremity arteriovenous fistula. 9. Mild Metabolic acidosis, Hypercalcemia 10. Hx of Thrombocytopenia FEB admission on Zyvox 11. Hx of CAD, 11/13 Lexiscan MIBI: No reversibility, no new WMA, EF 70% at stress (- )MRSA Nares screening last admit 10/31/15 INVASIVES: PIV, ABX ALLERGY: KNDA CURRENT ABX: Start Clindamycin IV + Levaquin IV =>Vanco IV + Zosyn on 11/12/16 ID RECOMMENDATIONS 1. Pt is high risk immunocompromised host 2/2 DM + immunosuppressive renal Tx status 2. Hx of renal insufficiency with Vanco IV in the past, hx of thrombocytopenia w /Zyvox in the past * Daptomycin used in the past -> not able to use statin meds if needed for PAD while on Dapto => may consider future 3. Start Clindamycin IVPB 600mg IV Q6H + Levaquin pharm dose IV 4. At risk for C.Diff on current ABX combination -- monitor for opportunistic infx such as yeast, diarrhea . Problems: Consultation Date/Type/Reason Admit Date/Time Nov 12, 2016 at 10:06 Initial Consult Date 11/12/16 Type of Consultation: ID Referring Provider: KRISTIN HALL MD Exam/Review of Systems Vital Signs Vitals Vital Signs Date Time Temp Pulse Resp B/P Pulse Ox O2 Delivery O2 Flow Rate FiO2 11/13/16 15:30 98.1 69 18 144/68 100 11/12/16 13:16 Room Air Intake and Output 11/12/16 11/12/16 11/13/16 15:00 23:00 07:00 Intake Total 120 ml 1045 ml Output Total 550 ml Balance 120 ml 495 ml Results Result Diagram: 11/13/16 0448 11/13/16 0448 Results 24 hrs Laboratory Tests Test 11/13/16 00:39 11/13/16 04:48 Troponin I 0.041 White Blood Count 6.1 # Red Blood Count 3.77 L Hemoglobin 9.9 #L Hematocrit 32.1 L Mean Corpuscular Volume 85.1 Mean Corpuscular Hemoglobin 26.3 L Mean Corpuscular Hemoglobin Concent 30.8 L Red Cell Distribution Width 14.6 H Platelet Count 193 Mean Platelet Volume 13.5 H Neutrophils % 64.6 Lymphocytes % 13.8 L Monocytes % 20.1 H Eosinophils % 1.0 Basophils % 0.2 Nucleated Red Blood Cells % 0.0 Neutrophils # 3.9 Lymphocytes # 0.8 Monocytes # 1.2 H Eosinophils # 0.1 Basophils # 0.0 Nucleated Red Blood Cells # 0.0 Sodium Level 143 Potassium Level 3.6 Chloride Level 111 H Carbon Dioxide Level 19 L Anion Gap 17 H Blood Urea Nitrogen 10 # Creatinine 0.71 Glucose Level 85 # Calcium Level 9.1 Magnesium Level 1.3 L Total Bilirubin 0.3 Direct Bilirubin 0.00 Indirect Bilirubin 0.3 Aspartate Amino Transf (AST/SGOT) 17 Alanine Aminotransferase (ALT/SGPT) 23 Alkaline Phosphatase 112 Total Protein 6.1 # Albumin 3.4 # Globulin 2.70 Albumin/Globulin Ratio 1.25 Triglycerides Level 105 Cholesterol Level 118 LDL Cholesterol, Calculated 72 HDL Cholesterol 25 L Cholesterol/HDL Ratio 4.7 Medications Medications Current Medications Ondansetron HCl (Zofran Inj) 4 mg Q6H PRN IV NAUSEA AND/OR VOMITING; Start at 16:00 Acetaminophen (Tylenol Tab) 650 mg Q6H PRN PO PAIN LEVEL 1-3 OR FEVER; Start at 16:00 Morphine Sulfate (morphine) 2 mg Q4H PRN IV SEVERE PAIN LEVEL 7-10 Last administered on 11/13/16 06:10; Admin Dose 2 MG; Start 11/12/16 at 16:00 Pantoprazole (Protonix Tab) 40 mg DAILY@06 PO Last administered on 11/13/16 05 :55; Admin Dose 40 MG; Start 11/13/16 at 06:00 Enoxaparin Sodium (Lovenox) 30 mg DAILY SC Last administered on 11/13/16 09:19 ; Admin Dose 30 MG; Start 11/13/16 at 09:00 Aspirin (Halfprin) 81 mg DAILY PO ; Start 11/13/16 at 09:00 Diltiazem HCl (Cardizem Cd) 180 mg DAILY PO Last administered on 11/13/16 09: 54; Admin Dose 180 MG; Start 11/13/16 at 09:00 Famotidine (Pepcid) 40 mg HS PO Last administered on 11/12/16 20:16; Admin Dose 40 MG; Start 11/12/16 at 21:00 Folic Acid (Folic Acid) 1 mg DAILY PO ; Start 11/13/16 at 09:00 Mycophenolate Mofetil (Cellcept) 1,000 mg BID PO Last administered on 20:16; Admin Dose 1,000 MG; Start 11/12/16 at 21:00 Tacrolimus (Prograf) 2 mg Q12 PO Last administered on 11/12/16 20:16; Admin Dose 2 MG; Start 11/12/16 at 21:00 Citric Acid/ Sodium Citrate (Bicitra) 30 ml TID PO Last administered on 20:15; Admin Dose 30 ML; Start 11/12/16 at 21:00 Acetylcysteine (Nac) 1,200 mg BID PO Last administered on 11/12/16 20:16; Admin Dose 1,200 MG; Start 11/12/16 at 21:00 Metoprolol Tartrate (Lopressor) 75 mg BID PO Last administered on 11/13/16 09: 53; Admin Dose 75 MG; Start 11/12/16 at 21:00 Gabapentin (Neurontin) 100 mg TID PO Last administered on 11/12/16 20:16; Admin Dose 100 MG; Start 11/12/16 at 21:00 Collagenase (Santyl) 1 applic DAILY TOP Last administered on 11/12/16 22:21; Admin Dose 1 APPLIC; Start 11/12/16 at 21:00 Collagenase 1 applic 1 applic PRN PRN TOP WOUND CARE; Start 11/12/16 at 20:00 Sodium Chloride (1/2 NS) 1,000 ml @ 75 mls/hr [id number] IV Last administered on 11/13/16 15:25; Admin Dose 75 MLS/HR; Start 11/13/16 at 13:30 HAMZAH GARZA NP Nov 13, 2016 20:19
[2016-11-13] MEDS: LEVOFLOXACIN 500MG/D5W (PMX) 100 ML IVPB SCH (20:41)
[2016-11-13] MEDS: FAMOTIDINE 20 MG TAB PO SCH (20:42)
[2016-11-13] MEDS: CLINDAMYCIN 600 MG/D5W (PMX) 50 ML IVPB SCH (21:59)
[2016-11-13] MEDS ORDERED: MAGNESIUM SULFATE 2 GM/50 ML 50 ML IVPB ONE (23:30)
[2016-11-14] MEDS: CLINDAMYCIN 600 MG/D5W (PMX) 50 ML IVPB SCH ×4 (02:09→11:00)
[2016-11-14] MEDS: SOD CHLORIDE 0.45% 1,000 ML IV SCH ×2 (02:11→15:09)
[2016-11-14 02:20] VITALS: BP 136/63; RESP 18
[2016-11-14] MEDS: PANTOPRAZOLE (EC) 40 MG TAB PO SCH (05:22)
--- NOTE | 2016-11-14 07:44 | HP ---
DATE OF ADMISSION: 11/12/2016 Vascular surgery [facility] HISTORY OF PRESENT ILLNESS: Ms. Aguillon is a 61-year-old female known to our Vascular Surgery Service and the Wound Care Office secondary to extensive history of aortoiliac atherosclerotic disease and bilateral lower extremity atherosclerosis with gangrene. The patient over the past 2 years has had multiple interventions and evaluations for findings of lower extremity gangrene. Of note, in the past. The patient had originally presented with history of bilateral lower extremity lesions that were unexplained as the patient was negative for any specific type of autoimmune and cancer as she was evaluated by multiple tissue biopsies done by our General Surgery colleagues. Further the patient has been evaluated by our Medical colleagues for any other findings that may suggest otherwise. 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 Further the patient is somewhat noncompliant and does not necessarily follow up with us regarding her vascular surveillance as we had recommended in the past. The patient as of recent had developed new signs of left lower extremity blue toe and increased rest pain. We did have an extensive conversation in our office about a week ago about the patient requiring further interventions likely starting with her inflow for aortoiliac disease and then her bilateral lower extremities left being done first as that is the more symptomatic side. The patient has also developed worsening rest pain and has developed gangrene of the left first toe after originally presenting with a blue toe. REVIEW OF SYSTEMS: Fourteen point review performed and negative except what was mentioned in the HPI. PAST MEDICAL HISTORY: Entails history of noncompliance, bilateral lower extremity atherosclerosis with gangrene, aortoiliac atherosclerotic disease, hypertension, history of end- stage renal disease, a kidney transplant recipient in 2009 on immunosuppression therapy. PAST SURGICAL HISTORY: Left upper extremity AV fistula creation, multiple lower extremity endovascular interventions, and a kidney transplant in 2010. FAMILY HISTORY: Positive for hypertension. SOCIAL HISTORY: Denies tobacco, alcohol or illicit drug use. PHYSICAL EXAMINATION: Alert and oriented x3. No apparent distress. HEENT: Normocephalic and atraumatic. EOMI. PERRLA. Mucosa moist. NECK: Supple. No carotid bruit. LUNGS: Clear to auscultation bilaterally. No crackles. CARDIOVASCULAR: S1 and S2 present. No murmurs. ABDOMEN: Soft, nontender and nondistended. Bowel sounds positive. Surgical scar well healed. EXTREMITIES: Right lower extremity faint femoral pulse. Nonpalpable pedal pulse. Motor and sensory intact. Capillary refill 4 seconds. Gangrene of the fifth toe amputation stump. Left lower extremity faint femoral pulse. Nonpalpable pedal pulse. Motor and sensory intact. Capillary refill 4 seconds. Tenderness and pain of the left first toe that was a bluish discoloration and now developing gangrene. Left fourth and fifth toe amputation stump with gangrene. ASSESSMENT AND PLAN: Bilateral lower extremity atherosclerosis with bilateral foot gangrene: It seems that the patient's progression of atherosclerotic disease is still there, and the patient has developed new gangrene at the left first toe. There is still concern with the patient having a blue toe syndrome in which she may require stent grafting of her aortoiliac segment right above her kidney transplant. As we have to be cautious in regards to giving the patient contrast we will plan to discuss hydration and the renal protection prior to a angiogram with our Nephrology colleagues. Ideally we would like to obtain a CT angiography of her abdomen and pelvis with bilateral lower extremity runoff in order to allow us to delineate her aortoiliac disease since we had evaluated about a year ago. Would recommend obtaining bilateral upper and lower extremity vein mapping in order to evaluate a possible conduits if she would require revascularization. The patient in the past did not have adequate vein for conduit. Optimize vascular status (BP medications, diet, nutrition and exercise, [____] control, antiplatelets). Continue with antibiotics for the gangrene. Podiatry colleagues are involved with the local wound care and will plan to determine the best option course for the patient as she would like to have everything done to provide her adequate limb salvage. We will plan for Cardiology evaluation to evaluate for possible aortoiliac intervention and possible lower extremity intervention. Discussed findings, plan and management with the patient with a certified excel developer and she understands. Thank you for allowing us to partake in the care of your patient. Please call with any questions. Dictated By: Aung Valencia MD /[email or web address] /Document#: [id number]
[2016-11-14 08:03] VITALS: BP 155/73; RESP 18
[2016-11-14] MEDS: GABAPENTIN 100 MG CAP PO SCH ×3 (08:38→20:16)
[2016-11-14] MEDS: DILTIAZEM (CD) 180 MG CAP PO SCH (08:38)
[2016-11-14] MEDS: MYCOPHENOLATE 250 MG CAP PO SCH ×2 (08:38→20:16)
[2016-11-14] MEDS: CITRIC ACID/NA CITRATE 30 ML CUP PO SCH ×3 (08:38→20:17)
[2016-11-14] MEDS: ASPIRIN (EC) 81 MG TAB PO SCH (08:38)
[2016-11-14] MEDS: TACROLIMUS 1 MG CAP PO SCH ×2 (08:39→20:16)
[2016-11-14] MEDS: METOPROLOL 25 MG TAB PO SCH ×2 (08:39→20:17)
[2016-11-14] MEDS: COLLAGENASE 30 GM TUBE TOP SCH ×2 (08:39→09:00)
[2016-11-14] MEDS: ENOXAPARIN 30 MG/0.3 ML SYG SC SCH (08:44)
[2016-11-14] MEDS: FOLIC ACID 1 MG TAB PO SCH (09:06)
[2016-11-14] MEDS: ACETYLCYSTEINE 600 MG CAP PO SCH ×2 (09:06→20:16)
--- NOTE | 2016-11-14 10:04 | CONS ---
Date/Time of Note Date/Time of Note DATE: 11/14/16 TIME: 09:59 Assessment/Plan Assessment/Plan Chief Complaint/Hosp Course IMP: 1. Pre-op for LE vascular procedure. Nl EF and no ischemia by lexiscan 11/13 only scar. Thus ok to proceed to OR on current medical therapy without further noninvasive evaluation at moderate risk 2.HTN-uncontrolled 3,CAD 4.PAD with nonhealing LE wounds Recc: -Tele -serial ecg's -Continue dilt/BB -Start ACEI to improve BP control -local wound care -await echo Problems: Consultation Date/Type/Reason Admit Date/Time Nov 12, 2016 at 10:06 Initial Consult Date 11/12/16 Type of Consultation: cardiology Reason for Consultation preop Referring Provider: KRISTIN HALL MD Exam/Review of Systems Vital Signs Vitals Vital Signs Date Time Temp Pulse Resp B/P Pulse Ox O2 Delivery O2 Flow Rate FiO2 11/14/16 08:03 98.2 63 18 155/73 100 11/12/16 13:16 Room Air Intake and Output 11/13/16 11/13/16 11/14/16 15:00 23:00 07:00 Intake Total 400 ml 490 ml 1087.5 ml Balance 400 ml 490 ml 1087.5 ml Exam Review of Systems: CONSTITUTIONAL: No fevers, chills. PULMONARY: No sob CARDIOVASCULAR: No chest pain/palpitations GASTROINTESTINAL: No nausea/vomiting. GENITOURINARY: No hematuria/dysuria. MUSCULOSKELETAL:pain in foot PSYCHIATRIC: The patient denies depression. NEUROLOGIC: No weakness Constitutional: alert Psych: no complaints ENMT: mucosa pink and moist Neck: jvd (9 cm water), supple Respiratory: diminished breath sounds (at bases/B) Cardiovascular: regular rate and rhythm Gastrointestinal: non-tender, soft Musculoskeletal: muscle tone (normal) Extremities: edema (none) Neurological: other (No focal deficits) Results Result Diagram: 11/13/16 0448 11/13/16 0448 Results 24 hrs Laboratory Tests Test 11/13/16 20:40 11/14/16 04:39 Bedside Glucose 102 Magnesium Level 2.2 Medications Medications Current Medications Ondansetron HCl (Zofran Inj) 4 mg Q6H PRN IV NAUSEA AND/OR VOMITING; Start at 16:00 Acetaminophen (Tylenol Tab) 650 mg Q6H PRN PO PAIN LEVEL 1-3 OR FEVER; Start at 16:00 Morphine Sulfate (morphine) 2 mg Q4H PRN IV SEVERE PAIN LEVEL 7-10 Last administered on 11/13/16 20:41; Admin Dose 2 MG; Start 11/12/16 at 16:00 Pantoprazole (Protonix Tab) 40 mg DAILY@06 PO Last administered on 11/14/16 05 :22; Admin Dose 40 MG; Start 11/13/16 at 06:00 Enoxaparin Sodium (Lovenox) 30 mg DAILY SC Last administered on 11/14/16 08:44 ; Admin Dose 30 MG; Start 11/13/16 at 09:00 Aspirin (Halfprin) 81 mg DAILY PO Last administered on 11/14/16 08:38; Admin Dose 81 MG; Start 11/13/16 at 09:00 Diltiazem HCl (Cardizem Cd) 180 mg DAILY PO Last administered on 11/14/16 08: 38; Admin Dose 180 MG; Start 11/13/16 at 09:00 Famotidine (Pepcid) 40 mg HS PO Last administered on 11/13/16 20:42; Admin Dose 40 MG; Start 11/12/16 at 21:00 Folic Acid (Folic Acid) 1 mg DAILY PO Last administered on 11/14/16 09:06; Admin Dose 1 MG; Start 11/13/16 at 09:00 Mycophenolate Mofetil (Cellcept) 1,000 mg BID PO Last administered on 08:38; Admin Dose 1,000 MG; Start 11/12/16 at 21:00 Tacrolimus (Prograf) 2 mg Q12 PO Last administered on 11/14/16 08:39; Admin Dose 2 MG; Start 11/12/16 at 21:00 Citric Acid/ Sodium Citrate (Bicitra) 30 ml TID PO Last administered on 08:38; Admin Dose 30 ML; Start 11/12/16 at 21:00 Acetylcysteine (Nac) 1,200 mg BID PO Last administered on 11/14/16 09:06; Admin Dose 1,200 MG; Start 11/12/16 at 21:00 Metoprolol Tartrate (Lopressor) 75 mg BID PO Last administered on 11/14/16 08: 39; Admin Dose 75 MG; Start 11/12/16 at 21:00 Gabapentin (Neurontin) 100 mg TID PO Last administered on 11/14/16 08:38; Admin Dose 100 MG; Start 11/12/16 at 21:00 Collagenase (Santyl) 1 applic DAILY TOP Last administered on 11/14/16 08:39; Admin Dose 1 APPLIC; Start 11/12/16 at 21:00 Collagenase 1 applic 1 applic PRN PRN TOP WOUND CARE; Start 11/12/16 at 20:00 Sodium Chloride 1,000 ml @ 75 mls/hr [id number] IV Last administered on 15:25; Admin Dose 75 MLS/HR; Start 11/13/16 at 13:30 Clindamycin HCl/ Dextrose 50 ml @ 50 mls/hr Q6 IVPB Last administered on 05:22; Admin Dose 50 MLS/HR; Start 11/13/16 at 20:30 Levofloxacin/ Dextrose (Levaquin 500mg/ D5W 100 ml (Pmx)) 100 ml @ 100 mls/hr Q24H IVPB Last administered on 11/13/16 20:41; Admin Dose 100 MLS/HR; Start at 20:30 TIMOTHY CORTES Nov 14, 2016 10:04
[2016-11-14] MEDS: BENAZEPRIL 10 MG TAB PO SCH ×2 (10:59→20:16)
--- NOTE | 2016-11-14 12:56 | PN ---
Date/Time of Note Date/Time of Note DATE: 11/14/16 TIME: 12:37 Assessment/Plan Lines/Catheters IV C[facility] (from [facility]): Peripheral IV Assessment/Plan Chief Complaint/Hosp Course -Bilateral lower extremity atherosclerosis with bilateral foot gangrene: It seems that the patient's progression of atherosclerotic disease is still there, and the patient has developed new gangrene of the left first toe. There is still concern with the patient having a history of possible blue toe syndrome and may require stent grafting of her aortoiliac segment. As we have to be cautious in regards to giving the patient contrast, will plan for hydration and renal protection prior to a angiogram with our Nephrology colleagues. -Ideally would like to obtain a CT angiography of her abdomen and pelvis with bilateral lower extremity runoff in order to allow us better to delineate her aortoiliac disease since we had evaluated that about a year ago. -Awaiting bilateral upper and lower extremity vein mapping in order to evaluate possible conduits if she would require revascularization. The patient in the past did not have adequate veins for conduit. -Optimize vascular status (BP medications, diet, nutrition and exercise, sugar control, antiplatelets). -Continue with antibiotics for the gangrene. -Podiatry colleagues are involved with the local wound care and will plan to determine the best option course for the patient as she would like to have everything done to provide her adequate limb salvage. -We will plan for Cardiology evaluation to evaluate for possible aortoiliac intervention and possible lower extremity intervention. -Discussed findings, plan and management with the patient with a certified rail car repairman and she understands that there is great concern as she has critical limb ischemia of both legs and limb salvage may be challenging for her and possibility of a major amputation in there -Thank you for allowing us to partake in the care of your patient. Please call with any questions. Problems: Subjective 24 Hr Interval Summary no new vascular events overnight Exam/Review of Systems Vital Signs Vitals Vital Signs Date Time Temp Pulse Resp B/P Pulse Ox O2 Delivery O2 Flow Rate FiO2 11/14/16 08:03 98.2 63 18 155/73 100 11/12/16 13:16 Room Air Intake and Output 11/13/16 11/13/16 11/14/16 15:00 23:00 07:00 Intake Total 400 ml 490 ml 1087.5 ml Balance 400 ml 490 ml 1087.5 ml Exam Free Text/Dictation Alert and oriented x3. LUNGS: Clear to auscultation bilaterally CARDIOVASCULAR: S1 and S2 present. ABDOMEN: Soft, nontender and nondistended. Bowel sounds positive. Surgical scar well healed. EXTREMITIES: Right lower extremity faint femoral pulse. Nonpalpable pedal pulse. Motor and sensory intact. Capillary refill 4 seconds. Gangrene of the fifth toe amputation stump. Left lower extremity faint femoral pulse. Nonpalpable pedal pulse. Motor and sensory intact. Capillary refill 4 seconds. Tenderness and pain of the left first toe that was a bluish discoloration and now developing gangrene. Left fourth and fifth toe amputation stump with gangrene. Results Result Diagram: 11/13/16 0448 11/13/16 0448 WILD DUARTE MD Nov 14, 2016 12:53
[2016-11-14 14:00] VITALS: BP 122/64; RESP 19
[2016-11-14 15:39] LABS: ADD UMIC YES; UR ASCORBIC ACID 40 mg/dL (NEGATIVE); UR BACTERIA MANY /HPF (NONE SEEN); UR BILIRUBIN (Dip) 2+ mg/dL (NEGATIVE); UR BLOOD (Dip) 1+ mg/dL (NEGATIVE); UR CLARITY CLOUDY (CLEAR); UR COLOR AMBER (YELLOW); UR GLUCOSE (Dip) NEGATIVE (NEGATIVE); UR KETONES (Dip) 1+ mg/dL (NEGATIVE); UR LEUKOCYTE ESTERASE (Dip) 2+ Leu/ul (NEGATIVE); UR NITRITE (Dip) NEGATIVE (NEGATIVE); UR RBC 64 /HPF (0-5); UR SPECIFIC GRAVITY (Dip) 1.016 (1.003-1.030); UR TOTAL PROTEIN (Dip) 1+ mg/dl (NEGATIVE); UR UROBILINOGEN (Dip) 2+ mg/dL (NEGATIVE); UR WBC CLUMPS FEW /HPF (NONE SEEN)
--- NOTE | 2016-11-14 16:00 | CONS ---
Date/Time of Note Date/Time of Note DATE: 11/14/16 TIME: 15:50 Assessment/Plan Assessment/Plan Chief Complaint/Hosp Course ID PROGRESS NOTE CURRENT ABX=> Start Clindamycin IV + Levaquin IV Vanco IV + Zosyn 11/12 24H INTERVAL SUMMARY * (+)Diarrhea -> sample sent for C.Diff per nurse, no fevers, VSS * 11/12 BCx (-) * s/p Lexiscan-MIBI 11/13 w/unchanged predominantly nonreversible perfusion abnormality in the inferior and inferoseptal tatum. No new wall motion abnormalities. LVEF at stress is greater than 70%, unchanged since the previous study. PHYSICAL EXAMINATION: GENERAL: VSS, NAD HEENT: Unremarkable -- NECK: Supple, trachea midline. CHEST: Rise symmetrical, without dyspnea on observation HEART: Pulse RRR ABDOMEN: Soft, benign EXTREMITIES: Warm -- gangrenous toes ID ASSESSMENT 61 yo F admit with: 1. 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 Severe peripheral vascular disease status post angiogram with angioplasty 3. Hx of donor kidney transplant 2009, on Prograf, CellCept and prednisone. 4. 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 h/o donor kidney transplant in 2009 at [facility], currently on immunosuppression with Prograf, CellCept 6. HTN -> Poorly controlled 7. DM w/complications of DM polyneuropathies: renal, peripheral 8. History of previous left upper extremity arteriovenous fistula. 9. (+)Diarrhea => ABX associated suspect C.Diff 10. Hx of Thrombocytopenia FEB admission on Zyvox 11. Hx of CAD, 11/13 Lexiscan MIBI: No reversibility, no new WMA, EF 70% at stress (- )MRSA Nares screening last admit 10/31/15 INVASIVES: PIV, ABX ALLERGY: KNDA CURRENT ABX: Levaquin IV + START TODAY: Dapto + Flagyl + Vanco po #1 Clindamycin IV +=> DC TODAY DUE TO SEVERE DIARRHEA =>Vanco IV + Zosyn on 11/12/16 ID RECOMMENDATIONS 1. Pt is high risk immunocompromised host 2/2 DM + immunosuppressive renal Tx status 2. Hx of renal insufficiency with Vanco IV in the past, hx of thrombocytopenia w /Zyvox in the past * Start Dapto 6mg/kg pharmacy may adjust per renal => baseline CPK, ESR,CRP ordered for today, HOLD STATIN while on DAPTO * Start Flagyl 500mg IVPB daily * Start Vanco 125mg Liq PO Q6H for copious ABX associated diarrhea. * DC CLINDAMYCIN * Continue Levaquin 3 . Problems: Consultation Date/Type/Reason Admit Date/Time Nov 12, 2016 at 10:06 Initial Consult Date 11/12/16 Type of Consultation: ID Referring Provider: KRISTIN HALL MD Exam/Review of Systems Vital Signs Vitals Vital Signs Date Time Temp Pulse Resp B/P Pulse Ox O2 Delivery O2 Flow Rate FiO2 11/14/16 14:00 98.0 57 19 122/64 100 11/12/16 13:16 Room Air Intake and Output 11/13/16 11/13/16 11/14/16 15:00 23:00 07:00 Intake Total 400 ml 490 ml 1087.5 ml Balance 400 ml 490 ml 1087.5 ml Results Result Diagram: 11/13/16 0448 11/13/16 0448 Results 24 hrs Laboratory Tests Test 11/13/16 20:40 11/14/16 04:39 11/14/16 13:45 Bedside Glucose 102 Magnesium Level 2.2 Urine Color JASON Urine Clarity CLOUDY A Urine pH 7.0 Urine Specific [place] 1.016 Urine Ketones 1+ H Urine Nitrite NEGATIVE Urine Bilirubin 2+ H Urine Urobilinogen 2+ H Urine Leukocyte Esterase 2+ H Urine Microscopic RBC 64 H Urine Microscopic WBC 0 Urine Bacteria MANY A Urine Hemoglobin 1+ H Urine Glucose NEGATIVE Urine Total Protein 1+ H Medications Medications Current Medications Ondansetron HCl (Zofran Inj) 4 mg Q6H PRN IV NAUSEA AND/OR VOMITING; Start at 16:00 Acetaminophen (Tylenol Tab) 650 mg Q6H PRN PO PAIN LEVEL 1-3 OR FEVER; Start at 16:00 Morphine Sulfate (morphine) 2 mg Q4H PRN IV SEVERE PAIN LEVEL 7-10 Last administered on 11/13/16 20:41; Admin Dose 2 MG; Start 11/12/16 at 16:00 Pantoprazole (Protonix Tab) 40 mg DAILY@06 PO Last administered on 11/14/16 05 :22; Admin Dose 40 MG; Start 11/13/16 at 06:00 Enoxaparin Sodium (Lovenox) 30 mg DAILY SC Last administered on 11/14/16 08:44 ; Admin Dose 30 MG; Start 11/13/16 at 09:00 Aspirin (Halfprin) 81 mg DAILY PO Last administered on 11/14/16 08:38; Admin Dose 81 MG; Start 11/13/16 at 09:00 Diltiazem HCl (Cardizem Cd) 180 mg DAILY PO Last administered on 11/14/16 08: 38; Admin Dose 180 MG; Start 11/13/16 at 09:00 Famotidine (Pepcid) 40 mg HS PO Last administered on 11/13/16 20:42; Admin Dose 40 MG; Start 11/12/16 at 21:00 Folic Acid (Folic Acid) 1 mg DAILY PO Last administered on 11/14/16 09:06; Admin Dose 1 MG; Start 11/13/16 at 09:00 Mycophenolate Mofetil (Cellcept) 1,000 mg BID PO Last administered on 08:38; Admin Dose 1,000 MG; Start 11/12/16 at 21:00 Tacrolimus (Prograf) 2 mg Q12 PO Last administered on 11/14/16 08:39; Admin Dose 2 MG; Start 11/12/16 at 21:00 Citric Acid/ Sodium Citrate (Bicitra) 30 ml TID PO Last administered on 13:28; Admin Dose 30 ML; Start 11/12/16 at 21:00 Acetylcysteine (Nac) 1,200 mg BID PO Last administered on 11/14/16 09:06; Admin Dose 1,200 MG; Start 11/12/16 at 21:00 Metoprolol Tartrate (Lopressor) 75 mg BID PO Last administered on 11/14/16 08: 39; Admin Dose 75 MG; Start 11/12/16 at 21:00 Gabapentin (Neurontin) 100 mg TID PO Last administered on 11/14/16 13:28; Admin Dose 100 MG; Start 11/12/16 at 21:00 Collagenase (Santyl) 1 applic DAILY TOP Last administered on 11/14/16 08:39; Admin Dose 1 APPLIC; Start 11/12/16 at 21:00 Collagenase 1 applic 1 applic PRN PRN TOP WOUND CARE; Start 11/12/16 at 20:00 Sodium Chloride 1,000 ml @ 75 mls/hr [id number] IV Last administered on 15:09; Admin Dose 75 MLS/HR; Start 11/13/16 at 13:30 Clindamycin HCl/ Dextrose 50 ml @ 50 mls/hr Q6 IVPB Last administered on 11:00; Admin Dose 50 MLS/HR; Start 11/13/16 at 20:30 Levofloxacin/ Dextrose (Levaquin 500mg/ D5W 100 ml (Pmx)) 100 ml @ 100 mls/hr Q24H IVPB Last administered on 11/13/16 20:41; Admin Dose 100 MLS/HR; Start at 20:30 Benazepril HCl (Lotensin) 10 mg BID PO Last administered on 11/14/16 10:59; Admin Dose 10 MG; Start 11/14/16 at 11:00 HAMZAH GARZA NP Nov 14, 2016 16:00
[2016-11-14] MEDS: metroNIDAZOLE 500 MG/NS (PMX) 100 ML IVPB SCH ×2 (16:23→22:59)
--- NOTE | 2016-11-14 16:35 | CONS ---
Date/Time of Note Date/Time of Note DATE: 11/14/16 TIME: 16:33 Assessment/Plan Assessment/Plan Chief Complaint/Hosp Course 61-year-old female known to me from previous admission. 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 Patient underwent bilateral lower extremities angiogram with multiple vascular intervention in May [address] Valencia. Patient had bilateral dry gangrenous toes and underwent recently bilateral toes amputation by Dr. Reynaga 5 days ago. Patient presented to the emergency room with severe left lower extremity pain extending from the toe to the the cuff. Patient also complains of chills. Patient denies any nausea vomiting. patient had elevated lactate and slightly elevated white blood cells. Patient was started on broad-spectrum antibiotics in the emergency room and admitted for further evaluation and management. Vascular surgery has been consulted on case and Possible plan for LE angiogram, Renal has been consulted for management of immunosuppresion and to prevent contrast induced nephropathy. Problems: Additional Assessment/Plan 1. Bilateral LE gangrene, s/p recent amputation by podiatry, Rule out Ischemia of LE 2. h/o donor kidney transplant in 2009 at [facility], currently on immunosuppression with Prograf, CellCept 4. 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 History of hypertension. 6. History of diabetes mellitus. 7. History of previous left upper extremity arteriovenous fistula. 8. Mild Metabolic acidosis, Hypercalcemia Plan: IV abx as per Infectious disease service continue bicitra 30ml pO TID for acidosis 1/2 NS at 75 cc/hr Vascular surgery is planning for LE angiogram so on mucomyst to avoid Contrast induced nephropathy Continue current immunosuppresion with prograf,cellcept, no prednisone due to hypercalcemia will continue to follow up Consultation Date/Type/Reason Admit Date/Time Nov 12, 2016 at 10:06 Initial Consult Date 11/12/16 Type of Consultation: NEPHROLOGY Referring Provider: KRISTIN HALL MD Exam/Review of Systems Vital Signs Vitals Vital Signs Date Time Temp Pulse Resp B/P Pulse Ox O2 Delivery O2 Flow Rate FiO2 11/14/16 14:00 98.0 57 19 122/64 100 11/12/16 13:16 Room Air Intake and Output 11/13/16 11/13/16 11/14/16 15:00 23:00 07:00 Intake Total 400 ml 490 ml 1087.5 ml Balance 400 ml 490 ml 1087.5 ml Exam Constitutional: alert, oriented Psych: no complaints Head: atraumatic, normocephalic Eyes: nl conjunctiva ENMT: nl external ears & nose Neck: non-tender, supple Respiratory: clear to auscultation, diminished breath sounds, normal air movement Cardiovascular: nl pulses, regular rate and rhythm Gastrointestinal: non-tender, soft Genitourinary - Female: other (deferred) Musculoskeletal: other (gangrenous toes of both lower extremities. Her recent operative amputations are healing, but with poor healing noted. No new trauma is noted.) Extremities: edema, other (diminished pulses in both LE ) Neurological: MANAGER READING II-XII intact Lymph: nl lymph nodes Results Result Diagram: 11/13/16 0448 11/13/16 0448 Results 24 hrs Laboratory Tests Test 11/13/16 20:40 11/14/16 04:39 11/14/16 13:45 Bedside Glucose 102 Magnesium Level 2.2 Urine Color JASON Urine Clarity CLOUDY A Urine pH 7.0 Urine Specific [place] 1.016 Urine Ketones 1+ H Urine Nitrite NEGATIVE Urine Bilirubin 2+ H Urine Urobilinogen 2+ H Urine Leukocyte Esterase 2+ H Urine Microscopic RBC 64 H Urine Microscopic WBC 0 Urine Bacteria MANY A Urine Hemoglobin 1+ H Urine Glucose NEGATIVE Urine Total Protein 1+ H Medications Medications Current Medications Ondansetron HCl (Zofran Inj) 4 mg Q6H PRN IV NAUSEA AND/OR VOMITING; Start at 16:00 Acetaminophen (Tylenol Tab) 650 mg Q6H PRN PO PAIN LEVEL 1-3 OR FEVER; Start at 16:00 Morphine Sulfate (morphine) 2 mg Q4H PRN IV SEVERE PAIN LEVEL 7-10 Last administered on 11/13/16 20:41; Admin Dose 2 MG; Start 11/12/16 at 16:00 Pantoprazole (Protonix Tab) 40 mg DAILY@06 PO Last administered on 11/14/16 05 :22; Admin Dose 40 MG; Start 11/13/16 at 06:00 Enoxaparin Sodium (Lovenox) 30 mg DAILY SC Last administered on 11/14/16 08:44 ; Admin Dose 30 MG; Start 11/13/16 at 09:00 Aspirin (Halfprin) 81 mg DAILY PO Last administered on 11/14/16 08:38; Admin Dose 81 MG; Start 11/13/16 at 09:00 Diltiazem HCl (Cardizem Cd) 180 mg DAILY PO Last administered on 11/14/16 08: 38; Admin Dose 180 MG; Start 11/13/16 at 09:00 Famotidine (Pepcid) 40 mg HS PO Last administered on 11/13/16 20:42; Admin Dose 40 MG; Start 11/12/16 at 21:00 Folic Acid (Folic Acid) 1 mg DAILY PO Last administered on 11/14/16 09:06; Admin Dose 1 MG; Start 11/13/16 at 09:00 Mycophenolate Mofetil (Cellcept) 1,000 mg BID PO Last administered on 08:38; Admin Dose 1,000 MG; Start 11/12/16 at 21:00 Tacrolimus (Prograf) 2 mg Q12 PO Last administered on 11/14/16 08:39; Admin Dose 2 MG; Start 11/12/16 at 21:00 Citric Acid/ Sodium Citrate (Bicitra) 30 ml TID PO Last administered on 13:28; Admin Dose 30 ML; Start 11/12/16 at 21:00 Acetylcysteine (Nac) 1,200 mg BID PO Last administered on 11/14/16 09:06; Admin Dose 1,200 MG; Start 11/12/16 at 21:00 Metoprolol Tartrate (Lopressor) 75 mg BID PO Last administered on 11/14/16 08: 39; Admin Dose 75 MG; Start 11/12/16 at 21:00 Gabapentin (Neurontin) 100 mg TID PO Last administered on 11/14/16 13:28; Admin Dose 100 MG; Start 11/12/16 at 21:00 Collagenase (Santyl) 1 applic DAILY TOP Last administered on 11/12/16 22:21; Admin Dose 1 APPLIC; Start 11/12/16 at 21:00 Collagenase 1 applic 1 applic PRN PRN TOP WOUND CARE; Start 11/12/16 at 20:00 Sodium Chloride 1,000 ml @ 75 mls/hr [id number] IV Last administered on 15:09; Admin Dose 75 MLS/HR; Start 11/13/16 at 13:30 Levofloxacin/ Dextrose (Levaquin 500mg/ D5W 100 ml (Pmx)) 100 ml @ 100 mls/hr Q24H IVPB Last administered on 11/13/16 20:41; Admin Dose 100 MLS/HR; Start at 20:30 Benazepril HCl 10 mg 10 mg BID PO Last administered on 11/14/16 10:59; Admin Dose 10 MG; Start 11/14/16 at 11:00 Metronidazole 100 ml @ 100 mls/hr Q8 IVPB Last administered on 11/14/16 16:23 ; Admin Dose 100 MLS/HR; Start 11/14/16 at 16:00 Daptomycin/Sodium Chloride (Cubicin/NS) 100 ml @ 200 mls/hr Q24H IVPB ; Start 11/14/16 at 17:00 Vancomycin HCl (Vancomycin Oral Syringe) 250 mg Q6 PO ; Start 11/14/16 at 18:00 RAMON KEMP MD Nov 14, 2016 16:35
--- NOTE | 2016-11-14 17:02 | RADRPT ---
PROCEDURE: Right lower extremity venous mapping. CLINICAL INDICATION: Right lower extremity gangrene. TECHNIQUE: The right greater saphenous vein was evaluated with ultrasound in the axial and sagitta l planes. Diameter of the veins were determined as indicated below. COMPARISON: No prior studies are available for comparison. FINDINGS: Right greater saphenous vein: At groin: 0.04 cm. Upper thigh: 0.09 cm. Mid thigh: 0.07 cm. Lower thigh: 0.07 cm. At knee: 0.08 cm. Upper calf: 0.09 cm. Mid calf: 0.06 cm. Ankle: 0.01 cm. The greater saphenous veins demonstrate normal compressibility with no thrombus or occlusion. IMPRESSION: 1. Diameter of greater saphenous veins as indicated above. 2. No thrombosis visualized. RPTAT: QQ .Hernan Baker MD, MD Date Time Electronically viewed and signed by .Hernan Baker MD, MD on 11/14/2016 17:01 .R/
--- NOTE | 2016-11-14 17:28 | PN ---
Date/Time of Note Date/Time of Note DATE: 11/14/16 TIME: 17:27 Assessment/Plan VTE Prophylaxis VTE Prophylaxis Intervention: heparin Lines/Catheters IV Catheter Type (from Nrsg): Peripheral IV Assessment/Plan Chief Complaint/Hosp Course Continue abx for osteo of foot Angiogram planned for LLE vascular disease Continue immunsuppression for renal tranplant Problems: Subjective 24 Hr Interval Summary Free Text/Dictation Complains of pain in her L foot Exam/Review of Systems Vital Signs Vitals Vital Signs Date Time Temp Pulse Resp B/P Pulse Ox O2 Delivery O2 Flow Rate FiO2 11/14/16 14:00 98.0 57 19 122/64 100 11/12/16 13:16 Room Air Intake and Output 11/13/16 11/13/16 11/14/16 15:00 23:00 07:00 Intake Total 400 ml 490 ml 1087.5 ml Balance 400 ml 490 ml 1087.5 ml Results Result Diagram: 11/13/16 0448 11/13/16 0448 Results 24 hrs Laboratory Tests Test 11/13/16 20:40 11/14/16 04:39 11/14/16 13:45 Bedside Glucose 102 Magnesium Level 2.2 Urine Color JASON Urine Clarity CLOUDY A Urine pH 7.0 Urine Specific [place] 1.016 Urine Ketones 1+ H Urine Nitrite NEGATIVE Urine Bilirubin 2+ H Urine Urobilinogen 2+ H Urine Leukocyte Esterase 2+ H Urine Microscopic RBC 64 H Urine Microscopic WBC 0 Urine Bacteria MANY A Urine Hemoglobin 1+ H Urine Glucose NEGATIVE Urine Total Protein 1+ H Medications Medications Current Medications Ondansetron HCl (Zofran Inj) 4 mg Q6H PRN IV NAUSEA AND/OR VOMITING; Start at 16:00 Acetaminophen (Tylenol Tab) 650 mg Q6H PRN PO PAIN LEVEL 1-3 OR FEVER; Start at 16:00 Morphine Sulfate (morphine) 2 mg Q4H PRN IV SEVERE PAIN LEVEL 7-10 Last administered on 11/13/16 20:41; Admin Dose 2 MG; Start 11/12/16 at 16:00 Pantoprazole (Protonix Tab) 40 mg DAILY@06 PO Last administered on 11/14/16 05 :22; Admin Dose 40 MG; Start 11/13/16 at 06:00 Enoxaparin Sodium (Lovenox) 30 mg DAILY SC Last administered on 11/14/16 08:44 ; Admin Dose 30 MG; Start 11/13/16 at 09:00 Aspirin (Halfprin) 81 mg DAILY PO Last administered on 11/14/16 08:38; Admin Dose 81 MG; Start 11/13/16 at 09:00 Diltiazem HCl (Cardizem Cd) 180 mg DAILY PO Last administered on 11/14/16 08: 38; Admin Dose 180 MG; Start 11/13/16 at 09:00 Famotidine (Pepcid) 40 mg HS PO Last administered on 11/13/16 20:42; Admin Dose 40 MG; Start 11/12/16 at 21:00 Folic Acid (Folic Acid) 1 mg DAILY PO Last administered on 11/14/16 09:06; Admin Dose 1 MG; Start 11/13/16 at 09:00 Mycophenolate Mofetil (Cellcept) 1,000 mg BID PO Last administered on 08:38; Admin Dose 1,000 MG; Start 11/12/16 at 21:00 Tacrolimus (Prograf) 2 mg Q12 PO Last administered on 11/14/16 08:39; Admin Dose 2 MG; Start 11/12/16 at 21:00 Citric Acid/ Sodium Citrate (Bicitra) 30 ml TID PO Last administered on 13:28; Admin Dose 30 ML; Start 11/12/16 at 21:00 Acetylcysteine (Nac) 1,200 mg BID PO Last administered on 11/14/16 09:06; Admin Dose 1,200 MG; Start 11/12/16 at 21:00 Metoprolol Tartrate (Lopressor) 75 mg BID PO Last administered on 11/14/16 08: 39; Admin Dose 75 MG; Start 11/12/16 at 21:00 Gabapentin (Neurontin) 100 mg TID PO Last administered on 11/14/16 13:28; Admin Dose 100 MG; Start 11/12/16 at 21:00 Collagenase (Santyl) 1 applic DAILY TOP Last administered on 11/12/16 22:21; Admin Dose 1 APPLIC; Start 11/12/16 at 21:00 Collagenase 1 applic 1 applic PRN PRN TOP WOUND CARE; Start 11/12/16 at 20:00 Sodium Chloride 1,000 ml @ 75 mls/hr [id number] IV Last administered on 15:09; Admin Dose 75 MLS/HR; Start 11/13/16 at 13:30 Levofloxacin/ Dextrose (Levaquin 500mg/ D5W 100 ml (Pmx)) 100 ml @ 100 mls/hr Q24H IVPB Last administered on 11/13/16 20:41; Admin Dose 100 MLS/HR; Start at 20:30 Benazepril HCl 10 mg 10 mg BID PO Last administered on 11/14/16 10:59; Admin Dose 10 MG; Start 11/14/16 at 11:00 Metronidazole 100 ml @ 100 mls/hr Q8 IVPB Last administered on 11/14/16 16:23 ; Admin Dose 100 MLS/HR; Start 11/14/16 at 16:00 Daptomycin/Sodium Chloride (Cubicin/NS) 100 ml @ 200 mls/hr Q24H IVPB ; Start 11/14/16 at 17:00 Vancomycin HCl (Vancomycin Oral Syringe) 250 mg Q6 PO ; Start 11/14/16 at 18:00 ARSEN JJ MD Nov 14, 2016 17:28
--- NOTE | 2016-11-14 17:37 | RADRPT ---
PROCEDURE: US Bilateral Upper Extremity Veins. CLINICAL INDICATION: Bilateral upper extremity swelling. Venous diameter for dialysis fistula plan shruthi. TECHNIQUE: Multiple longitudinal and transverse images of the bilateral upper extremity venous eufemia e was obtained with kirkland scale and color Doppler imaging. COMPARISON: None available FINDINGS: Diameters are as follows: Right arm cephalic: Not visualized. Right forearm cephalic: Not visualized. Right arm basilic upper: 0.40 cm. Right arm basilic mid: 0.31 cm. Right arm basilic lower: 0.21 cm. Right forearm basilic upper: 0.03 cm. Right forearm basilic mid: 0.09 cm. Right forearm basilic lower: 0.03 cm. Left arm cephalic upper: 0.02 cm. Left arm cephalic mid: 0.08 cm. Left arm cephalic lower: 0.16 cm. Thrombosed Left forearm cephalic upper: 0.10 cm. Thrombosed Left forearm cephalic mid: 0.13 cm. Thrombosed Left forearm cephalic lower: 0.13 cm. Thrombosed Left arm basilic upper: Not visualized. Left arm basilic mid: 0.03 cm. Left arm basilic lower: 0.07 cm. Left forearm basilic upper: 0.02 cm. Left forearm basilic mid: Not visualized. Left forearm basilic lower: 0.02 cm. There is a dialysis fistula extending from the left brachial artery to the left basilic vein. IMPRESSION: 1. The diameter of the vessels as indicated above. 2. Dialysis fistula extending from the left brachial artery to the left basilic vein. 3. Right cephalic vein not visualized. 4. Left forearm cephalic vein is thrombosed. RPTAT: QQ .Hernan Baker MD, Date Time Electronically viewed and signed by .Hernan Baker MD, on 11/14/2016 17:37 .R/
--- NOTE | 2016-11-14 17:45 | RADRPT ---
PROCEDURE: US bilateral lower extremity arteries. CLINICAL INDICATION: Bilateral leg pain. Lower extremity gangrene. TECHNIQUE: Multiple longitudinal and transverse images of the bilateral lower extremity arteries w ere obtained with kirkland scale, pulsed Doppler, and color Doppler imaging. COMPARISON: No prior studies are available for comparison. FINDINGS: Right ECONOMICS FACULTY MEMBER:72 cm/sec PSFA:388 cm/sec MSFA:396 cm/sec DSFA:111 cm/sec POP:36 cm/sec MOWER SHARPENER:Occluded DPA:Occluded Left ECONOMICS FACULTY MEMBER:121 cm/sec PSFA:255 cm/sec MSFA:517 cm/sec DSFA:65 cm/sec POP:113 cm/sec MOWER SHARPENER:Occluded DPA:Occluded On the right side, there is abnormal flow consistent with a high-grade stenosis in the proximal and mid superficial femoral artery. The calf arteries are occluded or not visualized. On the left side, there is abnormal flow consistent with high-grade stenosis in the proximal superfi cial femoral artery and mid superficial femoral artery. The calf arteries are occluded or not visua lized. IMPRESSION: 1. Bilateral high-grade stenosis in the superficial femoral arteries. 2. Bilateral calf artery occlusion. RPTAT: QQ .Hernan Baker MD, MD Date Time Electronically viewed and signed by .Hernan Baker MD, on 11/14/2016 17:44 .R/
[2016-11-14] MEDS: DAPTOMYCIN IVPB SCH (17:56)
[2016-11-14] MEDS: SOD CHLORIDE 0.9% IVPB SCH (17:56)
[2016-11-14] MEDS: VANCOMYCIN HCL 250 MG/5ML POSYG PO SCH ×2 (17:56→23:00)
[2016-11-14] MEDS: morphine 2 MG INJ IV PRN (18:24)
[2016-11-14 18:44] LABS: CK-MB 0.96 ng/ml (0.0-2.4); TROPONIN-I 0.023 ng/ml (0.00-0.12)
[2016-11-14 19:40] LABS: C-REACTIVE PROTEIN 3.5 mg/dl (0.0-0.9)
[2016-11-14] MEDS: FAMOTIDINE 20 MG TAB PO SCH (20:16)
[2016-11-14] MEDS: LEVOFLOXACIN 500MG/D5W (PMX) 100 ML IVPB SCH (20:19)
[2016-11-14 20:24] VITALS: BP 113/58; RESP 18
[2016-11-14] MEDS ORDERED: IODIXANOL LOCM 50 ML BTL ONE (21:19)
[2016-11-14] MEDS ORDERED: SOD CHLORIDE 0.9% 100 ML ONE (21:19)
[2016-11-14] MEDS ORDERED: IODIXANOL LOCM 100 ML BTL ONE (21:19)
--- NOTE | 2016-11-14 23:55 | CONS ---
Date/Time of Note Date/Time of Note DATE: 11/13/16 TIME: 23:55 Assessment/Plan Assessment/Plan Problems: (1) DVT (deep venous thrombosis) Status: Acute (2) Encounter for wound re-check Status: Acute (3) Skin change Status: Acute (4) Acquired absence of other left toe(s) (5) Non-pressure chronic ulcer of other part of left foot with fat layer exposed (6) Peripheral vascular disease (7) Toe gangrene Additional Assessment/Plan Thank you very much again for involving the care of this patient. This patient requires meticulous evaluation by vascular surgery in order to decipher whether or not she is a candidate for revascularization in order to improve perfusion to the feet. She also has microvascular disease which has made her condition worse. She is in pain and will require pain management. At this time, foot surgery is going to be delayed until there is adequate perfusion to both feet. Only on an emergency basis and if there is a life or limb threatening condition , surgery will be entertained. Patient is under evaluation of vascular surgery at this time and I will await their plan. Meanwhile, Betadine will be painted in the open areas and the feet will be open to air. Partial weightbearing allowed with postop shoes. Patient will be followed in-house. Consultation Date/Type/Reason Admit Date/Time Nov 12, 2016 at 10:06 Date of Consultation: Nov 13, 2016 Type of Consultation: Foot and ankle surgery Reason for Consultation Evaluation of significant pain in both feet and open wound bilateral feet Hx of Present Illness Thank you very much for involving the care of this patient. As you very well know this is a 61-year-old female patient who is well-known to me from previous admissions and also amputation prevention center. At performed amputations of her right fifth toe and left fourth and fifth toes with revision amputation. She is undergone evaluation by vascular surgery as well. She has history of end -stage renal disease status post renal transplant 2009. She has hypertension and dyslipidemia with history of bilateral upper extremity pyoderma gangrenosum with history of lower extremity DVT and bilateral lower extremity atherosclerosis. She has had worsening. Amputation sites anymore gangrenous changes and returns to the hospital and was admitted. I was consulted for continuation of care and evaluation. Patient reports continued pain in both feet and has been having this complains even in the clinic. Patient will be placed on broad-spectrum antibiotics during this admission. Constitutional: no complaints, No chills, No diaphoresis, No disoriented, No febrile, No improved, No other , No poor po, No requiring IVF, No requiring O2 Eyes: no complaints, No discharge, No other, No pain, No redness, No visual change ENT: no complaints, No bleeding, No congestion, No discharge, No dysphagia, No other, No pain, No sore throat Respiratory: no complaints, No cough, No other, No pain, No pleuritic pain, No shortness of breath, No sputum, No wheezing Cardiovascular: no complaints Gastrointestinal: no complaints Genitourinary: no complaints Musculoskeletal: other (left lower leg pain, with gangrene ) Skin: skin lesions Neurologic: no complaints Endocrine: no complaints Lymphatic: no complaints Psychological: no complaints Immunologic: no complaints Past Medical History As per history of present illness. Medical History: coronary artery disease, high cholesterol, hypertension, other (peripheral vascular diseasea, atherosclerosis ) Past Surgical History As per history of present illness. Past Surgical Hx: other (Bilatearal Toe amputation, H/o Kideny transplatn in 2009) Social History As per history of present illness. Alcohol Use: none Smoking Status: Never smoker Drug Use: none Exam/Review of Systems Vital Signs Vitals Vital Signs Date Time Temp Pulse Resp B/P Pulse Ox O2 Delivery O2 Flow Rate FiO2 11/14/16 20:24 97.9 57 18 113/58 100 11/12/16 13:16 Room Air Intake and Output 11/13/16 11/13/16 11/14/16 15:00 23:00 07:00 Intake Total 400 ml 490 ml 1087.5 ml Balance 400 ml 490 ml 1087.5 ml Exam Patient is in no acute distress laying supine in bed. Bilateral feet have no palpable pedal pulses. There is increase in temperature gradient bilaterally. Patient has gangrenous changes at the amputation sites on both feet. She is status post amputation of the right fifth toe and amputation of the left fourth and fifth toes. There is no erythema and no edema of the lower extremity. The areas are tender to palpation. Protective sensation is abnormal to sharp, dull , vibratory temperature stimuli. Labs reviewed. Imaging reviewed. Results Result Diagram: 11/13/16 0448 11/13/16 0448 Results 24 hrs Laboratory Tests Test 11/14/16 04:39 11/14/16 13:45 11/14/16 17:45 Magnesium Level 2.2 Urine Color JASON Urine Clarity CLOUDY A Urine pH 7.0 Urine Specific [place] 1.016 Urine Ketones 1+ H Urine Nitrite NEGATIVE Urine Bilirubin 2+ H Urine Urobilinogen 2+ H Urine Leukocyte Esterase 2+ H Urine Microscopic RBC 64 H Urine Microscopic WBC 0 Urine Bacteria MANY A Urine Hemoglobin 1+ H Urine Glucose NEGATIVE Urine Total Protein 1+ H Erythrocyte Sedimentation Rate 30 Creatine Kinase 47 Creatine Kinase Index 2.0 Creatinine Kinase MB (Mass) 0.96 Troponin I 0.023 C-Reactive Protein 3.5 H Medications Medications Current Medications Ondansetron HCl (Zofran Inj) 4 mg Q6H PRN IV NAUSEA AND/OR VOMITING; Start at 16:00 Acetaminophen (Tylenol Tab) 650 mg Q6H PRN PO PAIN LEVEL 1-3 OR FEVER; Start at 16:00 Morphine Sulfate (morphine) 2 mg Q4H PRN IV SEVERE PAIN LEVEL 7-10 Last administered on 11/14/16 18:24; Admin Dose 2 MG; Start 11/12/16 at 16:00 Pantoprazole (Protonix Tab) 40 mg DAILY@06 PO Last administered on 11/14/16 05 :22; Admin Dose 40 MG; Start 11/13/16 at 06:00 Enoxaparin Sodium (Lovenox) 30 mg DAILY SC Last administered on 11/14/16 08:44 ; Admin Dose 30 MG; Start 11/13/16 at 09:00 Aspirin (Halfprin) 81 mg DAILY PO Last administered on 11/14/16 08:38; Admin Dose 81 MG; Start 11/13/16 at 09:00 Diltiazem HCl (Cardizem Cd) 180 mg DAILY PO Last administered on 11/14/16 08: 38; Admin Dose 180 MG; Start 11/13/16 at 09:00 Famotidine (Pepcid) 40 mg HS PO Last administered on 11/14/16 20:16; Admin Dose 40 MG; Start 11/12/16 at 21:00 Folic Acid (Folic Acid) 1 mg DAILY PO Last administered on 11/14/16 09:06; Admin Dose 1 MG; Start 11/13/16 at 09:00 Mycophenolate Mofetil (Cellcept) 1,000 mg BID PO Last administered on 20:16; Admin Dose 1,000 MG; Start 11/12/16 at 21:00 Tacrolimus (Prograf) 2 mg Q12 PO Last administered on 11/14/16 20:16; Admin Dose 2 MG; Start 11/12/16 at 21:00 Citric Acid/ Sodium Citrate (Bicitra) 30 ml TID PO Last administered on 20:17; Admin Dose 30 ML; Start 11/12/16 at 21:00 Acetylcysteine (Nac) 1,200 mg BID PO Last administered on 11/14/16 20:16; Admin Dose 1,200 MG; Start 11/12/16 at 21:00 Metoprolol Tartrate (Lopressor) 75 mg BID PO Last administered on 11/14/16 08: 39; Admin Dose 75 MG; Start 11/12/16 at 21:00 Gabapentin (Neurontin) 100 mg TID PO Last administered on 11/14/16 20:16; Admin Dose 100 MG; Start 11/12/16 at 21:00 Collagenase (Santyl) 1 applic DAILY TOP Last administered on 11/12/16 22:21; Admin Dose 1 APPLIC; Start 11/12/16 at 21:00 Collagenase 1 applic 1 applic PRN PRN TOP WOUND CARE; Start 11/12/16 at 20:00 Sodium Chloride 1,000 ml @ 75 mls/hr [id number] IV Last administered on 15:09; Admin Dose 75 MLS/HR; Start 11/13/16 at 13:30 Levofloxacin/ Dextrose (Levaquin 500mg/ D5W 100 ml (Pmx)) 100 ml @ 100 mls/hr Q24H IVPB Last administered on 11/14/16 20:19; Admin Dose 100 MLS/HR; Start at 20:30 Benazepril HCl 10 mg 10 mg BID PO Last administered on 11/14/16 20:16; Admin Dose 10 MG; Start 11/14/16 at 11:00 Metronidazole 100 ml @ 100 mls/hr Q8 IVPB Last administered on 11/14/16 22:59 ; Admin Dose 100 MLS/HR; Start 11/14/16 at 16:00 Daptomycin/Sodium Chloride (Cubicin/NS) 100 ml @ 200 mls/hr Q24H IVPB Last administered on 11/14/16 17:56; Admin Dose 200 MLS/HR; Start 11/14/16 at 17:00 Vancomycin HCl (Vancomycin Oral Syringe) 250 mg Q6 PO Last administered on 11/14 23:00; Admin Dose 250 MG; Start 11/14/16 at 18:00 PHILLIP EMANUEL DPM Nov 14, 2016 23:55
--- NOTE | 2016-11-14 23:56 | PN ---
Date/Time of Note Date/Time of Note DATE: 11/14/16 TIME: 23:55 Assessment/Plan Lines/Catheters IV Catheter Type (from Nrs): Peripheral IV Assessment/Plan Problems: (1) Genitourinary symptoms Status: Acute (2) DVT (deep venous thrombosis) Status: Acute (3) Encounter for wound re-check Status: Acute (4) Skin change Status: Acute (5) Acquired absence of other left toe(s) (6) Non-pressure chronic ulcer of other part of left foot with fat layer exposed (7) Peripheral vascular disease (8) Toe gangrene Assessment/Plan Continue with Betadine paint to the open wound on both the right and left foot. Awaiting vascular surgery plan. No surgery recommended for both feet at this time. Patient will be followed in-house. Subjective 24 Hr Interval Summary Patient is in no acute distress laying supine in bed. She reports continued pain in both feet. She states that she does not want to have Santyl applied to both feet because that causes pain. Patient denies fever and chills and reports no trauma to her feet. Constitutional: no complaints Pain Control: well controlled Exam/Review of Systems Vital Signs Vitals Vital Signs Date Time Temp Pulse Resp B/P Pulse Ox O2 Delivery O2 Flow Rate FiO2 11/16/16 17:07 98.1 61 20 125/68 100 11/12/16 13:16 Room Air Intake and Output 11/15/16 11/15/16 11/16/16 15:00 23:00 07:00 Intake Total 250 ml 1695 ml 1180 ml Balance 250 ml 1695 ml 1180 ml Exam Free Text/Dictation Laying supine in bed in no acute distress. There is no major change in both feet. They are tender to palpation. Nonpalpable dorsalis pedis and posterior tibial pulse continues on both lower extremities. Labs reviewed. Imaging reviewed. Results Result Diagram: 11/13/16 0448 11/16/16 1411 PHILLIP EMANUEL DPM Nov 14, 2016 23:55
[2016-11-15] MEDS: morphine 2 MG INJ IV PRN ×2 (02:27→20:17)
[2016-11-15 02:47] VITALS: BP 131/67; RESP 16
[2016-11-15] MEDS: SOD CHLORIDE 0.45% 1,000 ML IV SCH ×2 (05:05→14:53)
[2016-11-15] MEDS: PANTOPRAZOLE (EC) 40 MG TAB PO SCH (05:06)
[2016-11-15] MEDS: VANCOMYCIN HCL 250 MG/5ML POSYG PO SCH ×3 (05:06→17:42)
[2016-11-15] MEDS: metroNIDAZOLE 500 MG/NS (PMX) 100 ML IVPB SCH ×3 (05:06→21:53)
[2016-11-15 08:00] VITALS: BP 170/82; RESP 18
--- NOTE | 2016-11-15 09:53 | RADRPT ---
PROCEDURE: CT angiogram of the aorta and bilateral runoff. CLINICAL INDICATION: Peripheral vascular disease. lower extremity gangrene. Prior toe amputations . Renal transplant. TECHNIQUE: CT angiogram of the abdomen and pelvis with bilateral runoff was performed on the [place] [address] scanner . The patient was scanned after administration of 120 cc of Visipaque 320 intravenous contrast. Oral contrast was also administered. 3-D sagittal and coronal reformatte d images were obtained from the axial source images. One or more of the following dose reduction techniques were used: Automated exposure control. Adjustment of the mA and/or kV according to patient size. Use of iterative reconstruction technique. DLP 143.84 mGycm. CTDI vol 456.41 mGy COMPARISON: Lower extremity Doppler study 11/13/2016 FINDINGS: CTA Aorta: There are concentric calcific plaques involving the infrarenal abdominal aorta with no significant s tenosis or aneurysmal dilatation. There is moderate ostial stenosis of the celiac artery. The SMA and UMU are patent with no significant ostial stenosis. There is severe stenosis of bilateral renal arteries. CTA Right leg: Scattered calcific plaques are seen in the proximal common and external iliac arteries with no hemod ynamically significant stenosis. There is mild calcific disease of the right common femoral artery with no significant stenosis. The re is severe stenosis of the proximal right SFA. There is occlusion of the right cerebral SFA appro ximately 7 cm distal to its origin. There is discontinuous faint opacification of the mid distal ri ght SFA through the collaterals. There is diffuse calcific disease of the right popliteal artery wh ich remains patent. There is occlusion of the tibioperoneal trunk. There is chronic occlusion of t he posterior tibial and peroneal arteries. Circumferential diffuse calcific disease involving right kbrbj-kad-fkpo arteries. It is difficult to evaluate the patency of the right anterior tibial arter y. CTA Left leg: Scattered calcific plaques are seen in the left common and external iliac arteries with no significa nt stenosis. There is moderate stenosis of the left common femoral artery just above the femoral bif urcation. There is occlusion of the left SFA at its origin. There is a long segment left SFA stent extending into the popliteal artery which is occluded. There is occlusion of the remainder of the popliteal artery. Severe calcific disease of the nruoi-jdp-tyuu arteries. CT abdomen: The lung bases are clear. There are markedly enlarged bilateral kidneys replaced by numerous cysts in keeping with polycystic kidney disease. Some of the cysts with hyperdense content and wall calcifications. Numerous sub anu timeter cysts are seen in both hepatic lobes. There is a small hiatal hernia. Right lower quadrant transplant kidney is enhances homogeneously. There is no urolithiasis. There is no hydronephrosis . The spleen, adrenal glands, pancreas, gallbladder are normal. There is no ascites or retroperitoneal adenopathy. There is no bowel obstruction. CT pelvis: The urinary bladder is normal. No pelvic masses or pelvic lymphadenopathy seen. There is no free fl uid. The bony pelvis is intact. IMPRESSION: Vascular: 1. No significant aortoiliac disease. 2. Moderate ostial stenosis of the celiac artery. 3. Severe stenosis of bilateral renal arteries. Right le. Mild stenosis of the right common femoral artery. 2. Severe stenosis of the proximal right SFA with occlusion approximately 7 cm distal to its origin. Faint discontinuous opacification of the mid distal right SFA through collaterals with short segmen t tandem occlusions. 3. Severe disease of the right popliteal artery which remains patent. 4. Circumferential heavily calcified plaque involving below the knee arteries. Not possible to yonatan luate the patency of the vessels. Posterior tibial and tibioperoneal arteries are likely chronicall y occluded. Left le. Moderate stenosis of the left common femoral artery above the femoral bifurcation. 2. Occlusion of the left SFA at its origin with no distal reconstitution. 3. Occluded long segment left SFA stent. 4. Occlusion of the left popliteal artery. 5. Circumferential heavily calcified plaque involving mingp-fvw-uhyl arteries. Not possible to yonatan luate the patency of the vessels. Abdomen and pelvis: 1. Polycystic kidney disease. 2. Mild hiatal hernia. 3. Unremarkable transplant kidney in the right lower quadrant. RPTAT: PP .Maxine Stanton MD, MD Date Time Electronically viewed and signed by .Maxine Stanton MD, on 11/15/2016 09:52 .O/
[2016-11-15] MEDS: CITRIC ACID/NA CITRATE 30 ML CUP PO SCH ×3 (10:32→20:23)
[2016-11-15] MEDS: ENOXAPARIN 30 MG/0.3 ML SYG SC SCH (10:33)
[2016-11-15] MEDS: ACETYLCYSTEINE 600 MG CAP PO SCH ×2 (10:33→20:25)
[2016-11-15] MEDS: MYCOPHENOLATE 250 MG CAP PO SCH ×2 (10:34→21:54)
[2016-11-15] MEDS: ASPIRIN (EC) 81 MG TAB PO SCH (10:34)
[2016-11-15] MEDS: BENAZEPRIL 10 MG TAB PO SCH (10:34)
[2016-11-15] MEDS: DILTIAZEM (CD) 180 MG CAP PO SCH (10:34)
[2016-11-15] MEDS: TACROLIMUS 1 MG CAP PO SCH ×2 (10:34→20:25)
[2016-11-15] MEDS: FOLIC ACID 1 MG TAB PO SCH (10:35)
[2016-11-15] MEDS: GABAPENTIN 100 MG CAP PO SCH ×3 (10:35→20:25)
[2016-11-15] MEDS: METOPROLOL 25 MG TAB PO SCH ×2 (10:35→20:25)
--- NOTE | 2016-11-15 12:31 | CONS ---
Date/Time of Note Date/Time of Note DATE: 11/15/16 TIME: 12:28 Assessment/Plan Assessment/Plan Additional Assessment/Plan 1. 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 h/o donor kidney transplant in 2009 at [facility], currently on immunosuppression with Prograf, CellCept 4. 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 History of hypertension. 6. History of diabetes mellitus. 7. History of previous left upper extremity arteriovenous fistula. 8. Mild Metabolic acidosis, Hypercalcemia Plan: IV abx as per Infectious disease service continue bicitra 30ml pO TID for acidosis, Cr normal today. s/p contrast exposure yesterda, pt will need Future Vascular intervetion next week as per - D/c mucomyst now, wcontinue IVF 1/2 NS at 75 cc/hr Continue current immunosuppresion with prograf,cellcept, no prednisone due to hypercalcemia will continue to follow up Consultation Date/Type/Reason Admit Date/Time Nov 12, 2016 at 10:06 Initial Consult Date 11/12/16 Type of Consultation: NEPHROLOGY Referring Provider: KRISTIN HALL MD 24 HR Interval Summary Free Text/Dictation s/p LE angiogram showed severe stenosis of Right SFA- used contrast, today Cr normal HCO3 still low Exam/Review of Systems Vital Signs Vitals Vital Signs Date Time Temp Pulse Resp B/P Pulse Ox O2 Delivery O2 Flow Rate FiO2 11/15/16 08:00 98.8 84 18 170/82 98 11/12/16 13:16 Room Air Intake and Output 11/14/16 11/14/16 11/15/16 15:00 23:00 07:00 Intake Total 50 ml 1810 ml 1175 ml Balance 50 ml 1810 ml 1175 ml Exam Constitutional: alert, oriented Psych: no complaints Head: atraumatic, normocephalic Eyes: nl conjunctiva ENMT: nl external ears & nose Neck: non-tender, supple Respiratory: clear to auscultation, diminished breath sounds, normal air movement Cardiovascular: nl pulses, regular rate and rhythm Gastrointestinal: non-tender, soft Genitourinary - Female: other (deferred) Musculoskeletal: other (gangrenous toes of both lower extremities. Her recent operative amputations are healing, but with poor healing noted. No new trauma is noted.) Extremities: edema, other (diminished pulses in both LE ) Neurological: IMMIGRATION JUDGE II-XII intact Lymph: nl lymph nodes Results Result Diagram: 11/13/168 11/13/168 Results 24 hrs Laboratory Tests Test 11/14/16 13:45 11/14/16 17:45 Urine Color JASON Urine Clarity CLOUDY A Urine pH 7.0 Urine Specific [place] 1.016 Urine Ketones 1+ H Urine Nitrite NEGATIVE Urine Bilirubin 2+ H Urine Urobilinogen 2+ H Urine Leukocyte Esterase 2+ H Urine Microscopic RBC 64 H Urine Microscopic WBC 0 Urine Bacteria MANY A Urine Hemoglobin 1+ H Urine Glucose NEGATIVE Urine Total Protein 1+ H Erythrocyte Sedimentation Rate 30 Creatine Kinase 47 Creatine Kinase Index 2.0 Creatinine Kinase MB (Mass) 0.96 Troponin I 0.023 C-Reactive Protein 3.5 H Medications Medications Current Medications Ondansetron HCl (Zofran Inj) 4 mg Q6H PRN IV NAUSEA AND/OR VOMITING; Start at 16:00 Acetaminophen (Tylenol Tab) 650 mg Q6H PRN PO PAIN LEVEL 1-3 OR FEVER; Start at 16:00 Morphine Sulfate (morphine) 2 mg Q4H PRN IV SEVERE PAIN LEVEL 7-10 Last administered on 11/15/16 02:27; Admin Dose 2 MG; Start 11/12/16 at 16:00 Pantoprazole (Protonix Tab) 40 mg DAILY@06 PO Last administered on 11/15/16 05 :06; Admin Dose 40 MG; Start 11/13/16 at 06:00 Enoxaparin Sodium (Lovenox) 30 mg DAILY SC Last administered on 11/15/16 10:33 ; Admin Dose 30 MG; Start 11/13/16 at 09:00 Aspirin (Halfprin) 81 mg DAILY PO Last administered on 11/15/16 10:34; Admin Dose 81 MG; Start 11/13/16 at 09:00 Diltiazem HCl (Cardizem Cd) 180 mg DAILY PO Last administered on 11/15/16 10: 34; Admin Dose 180 MG; Start 11/13/16 at 09:00 Famotidine (Pepcid) 40 mg HS PO Last administered on 11/14/16 20:16; Admin Dose 40 MG; Start 11/12/16 at 21:00 Folic Acid (Folic Acid) 1 mg DAILY PO Last administered on 11/15/16 10:35; Admin Dose 1 MG; Start 11/13/16 at 09:00 Mycophenolate Mofetil (Cellcept) 1,000 mg BID PO Last administered on 10:34; Admin Dose 1,000 MG; Start 11/12/16 at 21:00 Tacrolimus (Prograf) 2 mg Q12 PO Last administered on 11/15/16 10:34; Admin Dose 2 MG; Start 11/12/16 at 21:00 Citric Acid/ Sodium Citrate (Bicitra) 30 ml TID PO Last administered on 10:32; Admin Dose 30 ML; Start 11/12/16 at 21:00 Acetylcysteine (Nac) 1,200 mg BID PO Last administered on 11/15/16 10:33; Admin Dose 1,200 MG; Start 11/12/16 at 21:00 Metoprolol Tartrate (Lopressor) 75 mg BID PO Last administered on 11/15/16 10: 35; Admin Dose 75 MG; Start 11/12/16 at 21:00 Gabapentin (Neurontin) 100 mg TID PO Last administered on 11/15/16 10:35; Admin Dose 100 MG; Start 11/12/16 at 21:00 Collagenase (Santyl) 1 applic DAILY TOP Last administered on 11/12/16 22:21; Admin Dose 1 APPLIC; Start 11/12/16 at 21:00 Collagenase 1 applic 1 applic PRN PRN TOP WOUND CARE; Start 11/12/16 at 20:00 Sodium Chloride 1,000 ml @ 75 mls/hr [id number] IV Last administered on 15:09; Admin Dose 75 MLS/HR; Start 11/13/16 at 13:30 Levofloxacin/ Dextrose (Levaquin 500mg/ D5W 100 ml (Pmx)) 100 ml @ 100 mls/hr Q24H IVPB Last administered on 11/14/16 20:19; Admin Dose 100 MLS/HR; Start at 20:30 Benazepril HCl 10 mg 10 mg BID PO Last administered on 11/15/16 10:34; Admin Dose 10 MG; Start 11/14/16 at 11:00 Metronidazole 100 ml @ 100 mls/hr Q8 IVPB Last administered on 11/15/16 05:06 ; Admin Dose 100 MLS/HR; Start 11/14/16 at 16:00 Daptomycin/Sodium Chloride (Cubicin/NS) 100 ml @ 200 mls/hr Q24H IVPB Last administered on 11/14/16 17:56; Admin Dose 200 MLS/HR; Start 11/14/16 at 17:00 Vancomycin HCl (Vancomycin Oral Syringe) 250 mg Q6 PO Last administered on 11/15 05:06; Admin Dose 250 MG; Start 11/14/16 at 18:00 RAMON KEMP MD Nov 15, 2016 12:31
[2016-11-15] MEDS: COLLAGENASE 30 GM TUBE TOP SCH (12:41)
--- NOTE | 2016-11-15 13:44 | CARRPT ---
DATE OF PROCEDURE: 11/13/2016 DATE OF PROCEDURE: November 13, 2016. REQUESTING PHYSICIAN: Jeffy Cohen MD. ATTENDING PHYSICIAN: Enrique Powell MD. INDICATIONS: Preoperative. BASELINE VITAL SIGNS: Pulse 65, blood pressure 105/60. Electrocardiogram reveals normal sinus rhythm, rate of 67, normal axis, normal intervals with 2D finding actually to the AVL. PROCEDURE: The patient underwent standard Lexiscan infusion for 10 seconds, followed by a chaser. The patient's test was stopped upon completion of protocol. Max blood pressure during the test was 126/67. Max heart rate during the test was 95. ECG FINDINGS: During the Lexiscan infusion, the patient developed exaggeration of previously noted anterior T-wave inversion, which returned to normal during recovery. No documented PVCs. SYMPTOMS: The patient had no complaints of chest pain. No shortness of breath. Negative stress test. IMPRESSION: 1. Lexiscan-induced ST changes/abnormalities that are non- diagnostic for cardiac ischemia. 2. Positive complaints of chest pain and shortness of breath during stress test. 3. No documented PVCs during the test. 4. Report of nuclear images to follow in a separate dictation. Dictated By: Mp Gaffney /fnt/grs /Document#: [id number] CC: Jeffy Cohen MD;*EndCC* MTDD
[2016-11-15 14:00] VITALS: BP 117/69; RESP 18
--- NOTE | 2016-11-15 14:34 | CONS ---
Date/Time of Note Date/Time of Note DATE: 11/15/16 TIME: 14:29 Assessment/Plan Assessment/Plan Chief Complaint/Hosp Course IMP: 1. Pre-op for LE vascular procedure. Nl EF and no ischemia by lexiscan 11/13 only scar. Repeat echo pnding 2.HTN-uncontrolled 3,CAD 4.PAD with nonhealing LE wounds 5. Recc: -Tele -serial ecg's -Continue dilt/BB -ACEI held ? -local wound care -will f/u echo to asses significance of Problems: Consultation Date/Type/Reason Admit Date/Time Nov 12, 2016 at 10:06 Initial Consult Date 11/12/16 Type of Consultation: cardiology Reason for Consultation pre-op Referring Provider: KRISTIN HALL MD Exam/Review of Systems Vital Signs Vitals Vital Signs Date Time Temp Pulse Resp B/P Pulse Ox O2 Delivery O2 Flow Rate FiO2 11/15/16 08:00 98.8 84 18 170/82 98 11/12/16 13:16 Room Air Intake and Output 11/14/16 11/14/16 11/15/16 15:00 23:00 07:00 Intake Total 50 ml 1810 ml 1175 ml Balance 50 ml 1810 ml 1175 ml Exam Review of Systems: CONSTITUTIONAL: No fevers, chills. PULMONARY: No sob CARDIOVASCULAR: No chest pain/palpitations GASTROINTESTINAL: No nausea/vomiting. GENITOURINARY: No hematuria/dysuria. MUSCULOSKELETAL: pain in foot PSYCHIATRIC: The patient denies depression. NEUROLOGIC: No weakness Constitutional: alert Psych: no complaints Head: normocephalic ENMT: mucosa pink and moist Neck: jvd (8-9 cm water), supple Respiratory: clear to auscultation Cardiovascular: regular rate and rhythm Gastrointestinal: non-tender, soft Musculoskeletal: muscle weakness (generalized) Extremities: edema (none), other (gangrenoous changes of foot) Neurological: other (No focal deficits) Results Result Diagram: 11/13/1644711/13/168 Results 24 hrs Laboratory Tests Test 11/14/16 17:45 Erythrocyte Sedimentation Rate 30 Creatine Kinase 47 Creatine Kinase Index 2.0 Creatinine Kinase MB (Mass) 0.96 Troponin I 0.023 C-Reactive Protein 3.5 H Medications Medications Current Medications Ondansetron HCl (Zofran Inj) 4 mg Q6H PRN IV NAUSEA AND/OR VOMITING; Start at 16:00 Acetaminophen (Tylenol Tab) 650 mg Q6H PRN PO PAIN LEVEL 1-3 OR FEVER; Start at 16:00 Morphine Sulfate (morphine) 2 mg Q4H PRN IV SEVERE PAIN LEVEL 7-10 Last administered on 11/15/16 02:27; Admin Dose 2 MG; Start 11/12/16 at 16:00 Pantoprazole (Protonix Tab) 40 mg DAILY@06 PO Last administered on 11/15/16 05 :06; Admin Dose 40 MG; Start 11/13/16 at 06:00 Enoxaparin Sodium (Lovenox) 30 mg DAILY SC Last administered on 11/15/16 10:33 ; Admin Dose 30 MG; Start 11/13/16 at 09:00 Aspirin (Halfprin) 81 mg DAILY PO Last administered on 11/15/16 10:34; Admin Dose 81 MG; Start 11/13/16 at 09:00 Diltiazem HCl (Cardizem Cd) 180 mg DAILY PO Last administered on 11/15/16 10: 34; Admin Dose 180 MG; Start 11/13/16 at 09:00 Famotidine (Pepcid) 40 mg HS PO Last administered on 11/14/16 20:16; Admin Dose 40 MG; Start 11/12/16 at 21:00 Folic Acid (Folic Acid) 1 mg DAILY PO Last administered on 11/15/16 10:35; Admin Dose 1 MG; Start 11/13/16 at 09:00 Mycophenolate Mofetil (Cellcept) 1,000 mg BID PO Last administered on 10:34; Admin Dose 1,000 MG; Start 11/12/16 at 21:00 Tacrolimus (Prograf) 2 mg Q12 PO Last administered on 11/15/16 10:34; Admin Dose 2 MG; Start 11/12/16 at 21:00 Citric Acid/ Sodium Citrate (Bicitra) 30 ml TID PO Last administered on 12:42; Admin Dose 30 ML; Start 11/12/16 at 21:00 Acetylcysteine (Nac) 1,200 mg BID PO Last administered on 11/15/16 10:33; Admin Dose 1,200 MG; Start 11/12/16 at 21:00 Metoprolol Tartrate (Lopressor) 75 mg BID PO Last administered on 11/15/16 10: 35; Admin Dose 75 MG; Start 11/12/16 at 21:00 Gabapentin (Neurontin) 100 mg TID PO Last administered on 11/15/16 12:42; Admin Dose 100 MG; Start 11/12/16 at 21:00 Collagenase (Santyl) 1 applic DAILY TOP Last administered on 11/15/16 12:41; Admin Dose 1 APPLIC; Start 11/12/16 at 21:00 Collagenase 1 applic 1 applic PRN PRN TOP WOUND CARE; Start 11/12/16 at 20:00 Sodium Chloride 1,000 ml @ 75 mls/hr [id number] IV Last administered on 15:09; Admin Dose 75 MLS/HR; Start 11/13/16 at 13:30 Levofloxacin/ Dextrose (Levaquin 500mg/ D5W 100 ml (Pmx)) 100 ml @ 100 mls/hr Q24H IVPB Last administered on 11/14/16 20:19; Admin Dose 100 MLS/HR; Start at 20:30 Benazepril HCl 10 mg 10 mg BID PO Last administered on 11/15/16 10:34; Admin Dose 10 MG; Start 11/14/16 at 11:00; Status Future Hold Metronidazole 100 ml @ 100 mls/hr Q8 IVPB Last administered on 11/15/16 05:06 ; Admin Dose 100 MLS/HR; Start 11/14/16 at 16:00 Daptomycin/Sodium Chloride (Cubicin/NS) 100 ml @ 200 mls/hr Q24H IVPB Last administered on 11/14/16 17:56; Admin Dose 200 MLS/HR; Start 11/14/16 at 17:00 Vancomycin HCl (Vancomycin Oral Syringe) 250 mg Q6 PO Last administered on 11/15 12:42; Admin Dose 250 MG; Start 11/14/16 at 18:00 TIMOTHY CORTES 28, 2017 14:34
--- NOTE | 2016-11-15 16:06 | PN ---
Date/Time of Note Date/Time of Note DATE: 11/15/16 TIME: 16:03 Assessment/Plan VTE Prophylaxis VTE Prophylaxis Intervention: LMWH Lines/Catheters IV Catheter Type (from Nrsg): Peripheral IV Assessment/Plan Chief Complaint/Hosp Course 61 yo female wtih h/o kidney transplant on immunosuppresion, severe PAD leading to OM and nonhealing wounds, DMII with foot OM and claudication Osteomyelitis: - Continue abx per ID for osteo of foot Peripheral vascular disease: - Management per vascular, needs revascularization - Continue medical management with aspirin, statin, BP controlled H/o reanl transplant: - Continue cellcept, tacrolimus. Holding prednisone Problems: Subjective 24 Hr Interval Summary Free Text/Dictation Continued pain in L foot, calf at rest Exam/Review of Systems Vital Signs Vitals Vital Signs Date Time Temp Pulse Resp B/P Pulse Ox O2 Delivery O2 Flow Rate FiO2 11/15/16 14:00 98.6 63 18 117/69 96 11/12/16 13:16 Room Air Intake and Output 11/14/16 11/14/16 11/15/16 15:00 23:00 07:00 Intake Total 50 ml 1810 ml 1175 ml Balance 50 ml 1810 ml [address]-A with vascular stenosis as described L foot with nonhealing ulcer s/p toe amputations 4/5 Results Result Diagram: 11/13/16 0448 11/13/16 0448 Results 24 hrs Laboratory Tests Test 11/14/16 17:45 Erythrocyte Sedimentation Rate 30 Creatine Kinase 47 Creatine Kinase Index 2.0 Creatinine Kinase MB (Mass) 0.96 Troponin I 0.023 C-Reactive Protein 3.5 H Medications Medications Current Medications Ondansetron HCl (Zofran Inj) 4 mg Q6H PRN IV NAUSEA AND/OR VOMITING; Start at 16:00 Acetaminophen (Tylenol Tab) 650 mg Q6H PRN PO PAIN LEVEL 1-3 OR FEVER; Start at 16:00 Morphine Sulfate (morphine) 2 mg Q4H PRN IV SEVERE PAIN LEVEL 7-10 Last administered on 11/15/16 02:27; Admin Dose 2 MG; Start 11/12/16 at 16:00 Pantoprazole (Protonix Tab) 40 mg DAILY@06 PO Last administered on 11/15/16 05 :06; Admin Dose 40 MG; Start 11/13/16 at 06:00 Enoxaparin Sodium (Lovenox) 30 mg DAILY SC Last administered on 11/15/16 10:33 ; Admin Dose 30 MG; Start 11/13/16 at 09:00 Aspirin (Halfprin) 81 mg DAILY PO Last administered on 11/15/16 10:34; Admin Dose 81 MG; Start 11/13/16 at 09:00 Diltiazem HCl (Cardizem Cd) 180 mg DAILY PO Last administered on 11/15/16 10: 34; Admin Dose 180 MG; Start 11/13/16 at 09:00 Famotidine (Pepcid) 40 mg HS PO Last administered on 11/14/16 20:16; Admin Dose 40 MG; Start 11/12/16 at 21:00 Folic Acid (Folic Acid) 1 mg DAILY PO Last administered on 11/15/16 10:35; Admin Dose 1 MG; Start 11/13/16 at 09:00 Mycophenolate Mofetil (Cellcept) 1,000 mg BID PO Last administered on 10:34; Admin Dose 1,000 MG; Start 11/12/16 at 21:00 Tacrolimus (Prograf) 2 mg Q12 PO Last administered on 11/15/16 10:34; Admin Dose 2 MG; Start 11/12/16 at 21:00 Citric Acid/ Sodium Citrate (Bicitra) 30 ml TID PO Last administered on 12:42; Admin Dose 30 ML; Start 11/12/16 at 21:00 Acetylcysteine (Nac) 1,200 mg BID PO Last administered on 11/15/16 10:33; Admin Dose 1,200 MG; Start 11/12/16 at 21:00 Metoprolol Tartrate (Lopressor) 75 mg BID PO Last administered on 11/15/16 10: 35; Admin Dose 75 MG; Start 11/12/16 at 21:00 Gabapentin (Neurontin) 100 mg TID PO Last administered on 11/15/16 12:42; Admin Dose 100 MG; Start 11/12/16 at 21:00 Collagenase (Santyl) 1 applic DAILY TOP Last administered on 11/15/16 12:41; Admin Dose 1 APPLIC; Start 11/12/16 at 21:00 Collagenase 1 applic 1 applic PRN PRN TOP WOUND CARE; Start 11/12/16 at 20:00 Sodium Chloride 1,000 ml @ 75 mls/hr [id number] IV Last administered on 14:53; Admin Dose 75 MLS/HR; Start 11/13/16 at 13:30 Levofloxacin/ Dextrose (Levaquin 500mg/ D5W 100 ml (Pmx)) 100 ml @ 100 mls/hr Q24H IVPB Last administered on 11/14/16 20:19; Admin Dose 100 MLS/HR; Start at 20:30 Benazepril HCl 10 mg 10 mg BID PO Last administered on 11/15/16 10:34; Admin Dose 10 MG; Start 11/14/16 at 11:00; Status Future Hold Metronidazole 100 ml @ 100 mls/hr Q8 IVPB Last administered on 11/15/16 14:52 ; Admin Dose 100 MLS/HR; Start 11/14/16 at 16:00 Daptomycin/Sodium Chloride (Cubicin/NS) 100 ml @ 200 mls/hr Q24H IVPB Last administered on 11/14/16 17:56; Admin Dose 200 MLS/HR; Start 11/14/16 at 17:00 Vancomycin HCl (Vancomycin Oral Syringe) 250 mg Q6 PO Last administered on 11/15 12:42; Admin Dose 250 MG; Start 11/14/16 at 18:00 ARSEN JJ MD Nov 15, 2016 16:06
--- NOTE | 2016-11-15 16:21 | RADRPT ---
Echocardiogram Report Patient Name: ESTIVEN RIVERA Gender: Female Date: 1955 Study Date: 15-Nov-2016 Business [employer] Relationship Manager: Nazario English [facility] Location: 2260 Ref. Physician: TIMOTHY POWELL Quality: Technically Difficult Study Procedures: Transthoracic echocardiogram with complete 2D, M-Mode, and doppler examination. Indications: Pre-op. 2D/M Mode Doppler Measurement Value Normal Ranges Measurement Value Normal Ranges LVIDd 2D 4.6 3.5 - 5.6 cm JOSE Vmax 0.8 cm2 LVIDs 2D 3.2 2.1 - 4.1 cm JOSE VTI 1.7 cm2 FS 2D 30.5 % AV Peak Claus 3.6 m/sec LVPWd 2D 1.0 0.6 - 1.1 cm AV Peak PG 51.0 mmHg IVSd 2D 1.1 0.6 - 1.1 cm LVOT Mean Claus 0.6 m/sec IVS/LVPW 2D 1.1 LVOT Mean PG 2.0 mmHg AoR Diam 2D 2.0 2.0 - 3.7 cm LVOT Peak Claus 0.9 m/sec LA/Ao 2D 2 0 - 1 LVOT Peak PG 3.0 mmHg EDV 2D 94.2 cm3 LVOT VTI 26.9 cm ESV 2D 31.6 cm3 MV E Peak Claus 0.8 m/sec LA Dimen 2D 3.7 2.3 - 4.0 cm MV A Peak Claus 1.0 m/sec LVOT Diam 2.0 cm MV E/A 0.8 LVOT Area 3.1 cm2 MV Decel Time 324 msec MV E/A 0.8 TR Peak Claus 2.7 m/sec TR Peak PG 29.0 mmHg RVSP 37.0 mmHg Findings Left Ventricle: Normal left ventricular systolic function. Normal left ventricular cavity size. Mild concentric left ventricular hypertrophy. Ejection fraction is visually estimated at 6065 %. Tissue Doppler/Mitral Doppler indices are consistent with impaired relaxation (Stage I diastolic dysfunction). Right Ventricle: Normal right ventricular size. Normal right ventricular systolic function. Left Atrium: The left atrium is normal in size. Right Atrium: The right atrium is normal in size. Mitral Valve: Normal appearance and function of the mitral valve with trace physiologic regurgitation. Aortic Valve: Moderate aortic stenosis. Aortic valve Max velocity 3.58 m/sec. Max PG 51.00 mmHg. Mean PG 20.00 mmHg. Aortic valve area 1.17 cm2. Aortic cusps appear moderately calcified. Trace aortic valve regurgitation. Tricuspid Valve: Normal appearance of the tricuspid valve. Estimated peak PA systolic pressure 37 mmHg. There is mild tricuspid regurgitation. Pulmonic Valve: Pulmonic valve not well visualized. Pericardium: Normal pericardium with no significant pericardial effusion. Aorta: Normal aortic root. IVC: Normal size and no respiratory collapse consistent with elevated right atrial pressure. Conclusions 1.Normal left ventricular systolic function. Normal left ventricular cavity size. Mild concentric left ventricular hypertrophy. Ejection fraction is visually estimated at 60-65 %. Tissue Doppler/Mitral Doppler indices are consistent with impaired relaxation (Stage I diastolic dysfunction). 2.Normal appearance and function of the mitral valve with trace physiologic regurgitation. 3.Moderate aortic stenosis. Mean PG 20.00 mmHg. Aortic valve area 1.17 cm2. Aortic cusps appear moderately calcified. Trace aortic valve regurgitation. 4.Normal appearance of the tricuspid valve. Estimated peak PA systolic pressure 37 mmHg. There is mild tricuspid regurgitation. Electronically Signed By: Timothy Powell 15-Nov-2016 16:21:10 [id number] Patient Name: ESTIVEN RIVERA Study Date: 15-Nov-2016 [id number]
[2016-11-15] MEDS: SOD CHLORIDE 0.9% IVPB SCH (17:41)
[2016-11-15] MEDS: DAPTOMYCIN IVPB SCH (17:41)
--- NOTE | 2016-11-15 19:42 | CONS ---
Date/Time of Note Date/Time of Note DATE: 11/15/16 TIME: 19:38 Assessment/Plan Assessment/Plan Chief Complaint/Hosp Course ID PROGRESS NOTE CURRENT ABX=> Levaquin IV + Dapto + Flagyl + Vanco po #2 s/p Clindamycin-> DC"d due to severe diarrhea Vanco IV + Zosyn 11/12 24H INTERVAL SUMMARY * A/A/O =-> No fevers, still has (+)Diarrhea -> sample sent for C.Diff per nurse yesterday -- I see no result in computer ? PHYSICAL EXAMINATION: GENERAL: VSS, NAD HEENT: Unremarkable -- NECK: Supple, trachea midline. CHEST: Rise symmetrical, without dyspnea on observation HEART: Pulse RRR ABDOMEN: Soft, benign EXTREMITIES: Warm -- gangrenous toes ID ASSESSMENT 61 yo F admit with: 1. 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 Severe peripheral vascular disease status post angiogram with angioplasty 3. Hx of donor kidney transplant 2009, on Prograf, CellCept and prednisone. 4. 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 h/o donor kidney transplant in 2009 at [facility], currently on immunosuppression with Prograf, CellCept 6. HTN -> Poorly controlled 7. DM w/complications of DM polyneuropathies: renal, peripheral 8. History of previous left upper extremity arteriovenous fistula. 9. (+)Diarrhea => ABX associated suspect C.Diff 10. Hx of Thrombocytopenia FEB admission on Zyvox 11. Hx of CAD, 11/13 Lexiscan MIBI: No reversibility, no new WMA, EF 70% at stress (- )MRSA Nares screening last admit 10/31/15 INVASIVES: PIV, ABX ALLERGY: KNDA CURRENT ABX: Levaquin IV + Dapto + Flagyl + Vanco po #2 Clindamycin IV +=> DC TODAY DUE TO SEVERE DIARRHEA =>Vanco IV + Zosyn on 11/12/16 ID RECOMMENDATIONS 1. Pt is high risk immunocompromised host 2/2 DM + immunosuppressive renal Tx status 2. Hx of renal insufficiency with Vanco IV in the past, hx of thrombocytopenia w /Zyvox in the past * Dapto 6mg/kg pharmacy may adjust per renal => baseline CPK, ESR,CRP ordered for today, HOLD STATIN while on DAPTO * Flagyl 500mg IVPB daily * Vanco 125mg Liq PO Q6H for copious ABX associated diarrhea. * Continue Levaquin . Problems: Consultation Date/Type/Reason Admit Date/Time Nov 12, 2016 at 10:06 Initial Consult Date 11/12/16 Type of Consultation: ID Referring Provider: KRISTIN HALL MD Exam/Review of Systems Vital Signs Vitals Vital Signs Date Time Temp Pulse Resp B/P Pulse Ox O2 Delivery O2 Flow Rate FiO2 11/15/16 14:00 98.6 63 18 117/69 96 11/12/16 13:16 Room Air Intake and Output 11/14/16 11/14/16 11/15/16 15:00 23:00 07:00 Intake Total 50 ml 1810 ml 1175 ml Balance 50 ml 1810 ml 1175 ml Results Result Diagram: 11/13/16 0448 11/13/16 0448 Medications Medications Current Medications Ondansetron HCl (Zofran Inj) 4 mg Q6H PRN IV NAUSEA AND/OR VOMITING; Start at 16:00 Acetaminophen (Tylenol Tab) 650 mg Q6H PRN PO PAIN LEVEL 1-3 OR FEVER; Start at 16:00 Morphine Sulfate (morphine) 2 mg Q4H PRN IV SEVERE PAIN LEVEL 7-10 Last administered on 11/15/16 02:27; Admin Dose 2 MG; Start 11/12/16 at 16:00 Pantoprazole (Protonix Tab) 40 mg DAILY@06 PO Last administered on 11/15/16 05 :06; Admin Dose 40 MG; Start 11/13/16 at 06:00 Enoxaparin Sodium (Lovenox) 30 mg DAILY SC Last administered on 11/15/16 10:33 ; Admin Dose 30 MG; Start 11/13/16 at 09:00 Aspirin (Halfprin) 81 mg DAILY PO Last administered on 11/15/16 10:34; Admin Dose 81 MG; Start 11/13/16 at 09:00 Diltiazem HCl (Cardizem Cd) 180 mg DAILY PO Last administered on 11/15/16 10: 34; Admin Dose 180 MG; Start 11/13/16 at 09:00 Famotidine (Pepcid) 40 mg HS PO Last administered on 11/14/16 20:16; Admin Dose 40 MG; Start 11/12/16 at 21:00 Folic Acid (Folic Acid) 1 mg DAILY PO Last administered on 11/15/16 10:35; Admin Dose 1 MG; Start 11/13/16 at 09:00 Mycophenolate Mofetil (Cellcept) 1,000 mg BID PO Last administered on 10:34; Admin Dose 1,000 MG; Start 11/12/16 at 21:00 Tacrolimus (Prograf) 2 mg Q12 PO Last administered on 11/15/16 10:34; Admin Dose 2 MG; Start 11/12/16 at 21:00 Citric Acid/ Sodium Citrate (Bicitra) 30 ml TID PO Last administered on 12:42; Admin Dose 30 ML; Start 11/12/16 at 21:00 Acetylcysteine (Nac) 1,200 mg BID PO Last administered on 11/15/16 10:33; Admin Dose 1,200 MG; Start 11/12/16 at 21:00 Metoprolol Tartrate (Lopressor) 75 mg BID PO Last administered on 11/15/16 10: 35; Admin Dose 75 MG; Start 11/12/16 at 21:00 Gabapentin (Neurontin) 100 mg TID PO Last administered on 11/15/16 12:42; Admin Dose 100 MG; Start 11/12/16 at 21:00 Collagenase (Santyl) 1 applic DAILY TOP Last administered on 11/15/16 12:41; Admin Dose 1 APPLIC; Start 11/12/16 at 21:00 Collagenase 1 applic 1 applic PRN PRN TOP WOUND CARE; Start 11/12/16 at 20:00 Sodium Chloride 1,000 ml @ 75 mls/hr [id number] IV Last administered on 14:53; Admin Dose 75 MLS/HR; Start 11/13/16 at 13:30 Levofloxacin/ Dextrose (Levaquin 500mg/ D5W 100 ml (Pmx)) 100 ml @ 100 mls/hr Q24H IVPB Last administered on 11/14/16 20:19; Admin Dose 100 MLS/HR; Start at 20:30 Benazepril HCl 10 mg 10 mg BID PO Last administered on 11/15/16 10:34; Admin Dose 10 MG; Start 11/14/16 at 11:00; Status Future Hold Metronidazole 100 ml @ 100 mls/hr Q8 IVPB Last administered on 11/15/16 14:52 ; Admin Dose 100 MLS/HR; Start 11/14/16 at 16:00 Daptomycin/Sodium Chloride (Cubicin/NS) 100 ml @ 200 mls/hr Q24H IVPB Last administered on 11/15/16 17:41; Admin Dose 200 MLS/HR; Start 11/14/16 at 17:00 Vancomycin HCl (Vancomycin Oral Syringe) 250 mg Q6 PO Last administered on 11/15 17:42; Admin Dose 250 MG; Start 11/14/16 at 18:00 HAMZAH GARZA [employer]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
[2016-11-15] MEDS: LEVOFLOXACIN 500MG/D5W (PMX) 100 ML IVPB SCH (20:20)
[2016-11-15] MEDS: FAMOTIDINE 20 MG TAB PO SCH (20:26)
[2016-11-15 21:25] VITALS: BP 121/60; RESP 16
[2016-11-15] MEDS ORDERED: ZOLPIDEM 5 MG TAB PO PRN (23:30)
[2016-11-16] MEDS: morphine 2 MG INJ IV PRN (00:34)
[2016-11-16] MEDS: VANCOMYCIN HCL 250 MG/5ML POSYG PO SCH ×3 (00:35→11:03)
[2016-11-16 02:52] VITALS: BP 120/59; RESP 16
[2016-11-16] MEDS: PANTOPRAZOLE (EC) 40 MG TAB PO SCH (05:15)
[2016-11-16] MEDS: metroNIDAZOLE 500 MG/NS (PMX) 100 ML IVPB SCH ×3 (05:30→22:19)
[2016-11-16 06:57] LABS: CALCIUM 8.7 mg/dl (8.4-10.2); CREATININE 0.69 mg/dl (0.44-1.00)
[2016-11-16 07:04] LABS: INR 1.39; PARTIAL THROMBOPLASTIN TIME 32.4 Sec (25.0-35.0); PROTIME 17.1 Sec (12.2-14.2); PT RATIO 1.3
[2016-11-16 07:19] LABS: POTASSIUM 2.7 mmol/L (3.5-5.1)
[2016-11-16] MEDS: ACETYLCYSTEINE 600 MG CAP PO SCH ×2 (08:04→20:37)
[2016-11-16] MEDS: DILTIAZEM (CD) 180 MG CAP PO SCH (08:04)
[2016-11-16] MEDS: CITRIC ACID/NA CITRATE 30 ML CUP PO SCH ×3 (08:04→20:36)
[2016-11-16] MEDS: TACROLIMUS 1 MG CAP PO SCH ×2 (08:04→20:32)
[2016-11-16] MEDS: ASPIRIN (EC) 81 MG TAB PO SCH (08:04)
[2016-11-16] MEDS: FOLIC ACID 1 MG TAB PO SCH (08:04)
[2016-11-16] MEDS: MYCOPHENOLATE 250 MG CAP PO SCH ×2 (08:04→20:31)
[2016-11-16] MEDS: GABAPENTIN 100 MG CAP PO SCH ×3 (08:04→20:31)
[2016-11-16] MEDS: ENOXAPARIN 30 MG/0.3 ML SYG SC SCH (08:04)
[2016-11-16] MEDS: METOPROLOL 25 MG TAB PO SCH ×2 (08:05→20:37)
[2016-11-16 08:54] VITALS: BP 144/69; RESP 18
[2016-11-16] MEDS: COLLAGENASE 30 GM TUBE TOP SCH (09:00)
[2016-11-16] MEDS ORDERED: POTASSIUM CHLORIDE 50 ML IVPB PRN (09:00)
[2016-11-16] MEDS ORDERED: POTASSIUM CHLORIDE 20 MEQ POWDER FOR ORAL SOLN PO PRN ×4 (09:00→19:30)
[2016-11-16] MEDS ORDERED: POTASSIUM CHLORIDE 250 ML IVPB ONE (10:00)
--- NOTE | 2016-11-16 10:30 | PN ---
Date/Time of Note Date/Time of Note DATE: 11/16/16 TIME: 10:21 Assessment/Plan Lines/Catheters IV Catheter Type (from [facility]): Peripheral IV Moreira in Place (from [facility]): No Assessment/Plan Chief Complaint/Hosp Course -Bilateral lower extremity atherosclerosis with bilateral foot gangrene: It seems that the patient's has progression of her significant infrainguinal atherosclerotic disease and upon CT angiography there is extensive infrainguinal disease bilaterally and will require intervention. Unfortunately she has no vein conduit to perform limb salvage revascularization and being chronically immunosuppressed secondary to her kidney transplant limits performing bypass with graft. Therefore, will plan on staged procedures with endovascular interventions with anesthesia as she would like to be completely anesthetized during her procedures. Will plan LLE first followed by RLE . -Our interventions will be coordinated with our multidisciplinary team as she would need to be monitored for her preservation of kidney transplant and contrast dosing -Optimize vascular status (BP medications, diet, nutrition and exercise, sugar control, antiplatelets). -Continue with antibiotics for the gangrene. -Podiatry colleagues are involved with the local wound care and will plan to determine the best option course for the patient as she would like to have everything done to provide her adequate limb salvage. -Appreciate Cardiology evaluation -Discussed findings, plan and management with the patient with a certified dark room attendant and she understands that there is great concern as she has critical limb ischemia of both legs and limb salvage may be challenging for her and possibility of a major amputation in there -Thank you for allowing us to partake in the care of your patient. Please call with any questions. Problems: Subjective 24 Hr Interval Summary no new vascular events overnight Exam/Review of Systems Vital Signs Vitals Vital Signs Date Time Temp Pulse Resp B/P Pulse Ox O2 Delivery O2 Flow Rate FiO2 11/16/16 08:54 98.0 64 18 144/69 99 11/12/16 13:16 Room Air Intake and Output 11/15/16 11/15/16 11/16/16 15:00 23:00 07:00 Intake Total 250 ml 1695 ml 1180 ml Balance 250 ml 1695 ml 1180 ml Exam Free Text/Dictation Alert and oriented x3. LUNGS: Clear to auscultation bilaterally CARDIOVASCULAR: S1 and S2 present. ABDOMEN: Soft, nontender and nondistended. Bowel sounds positive. Surgical scar well healed. EXTREMITIES: Right lower extremity faint femoral pulse. Nonpalpable pedal pulse. Motor and sensory intact. Capillary refill 4 seconds. Gangrene of the fifth toe amputation stump. Left lower extremity faint femoral pulse. Nonpalpable pedal pulse. Motor and sensory intact. Capillary refill 4 seconds. Tenderness and pain of the left first toe that was a bluish discoloration and now developing gangrene. Left fourth and fifth toe amputation stump with gangrene. Results Result Diagram: 11/13/16 0448 11/16/16 0539 WILD DUARTE MD Nov 16, 2016 10:30
--- NOTE | 2016-11-16 12:15 | CONS ---
Date/Time of Note Date/Time of Note DATE: 11/16/16 TIME: 12:13 Assessment/Plan Assessment/Plan Additional Assessment/Plan 1. Pre-op for LE vascular procedure. Nl EF and no ischemia by lexalberto 11/13 only scar- per Dr. Powell, Mod - Ok for surgery, moderate risk. 2.HTN-uncontrolled - con't to adjust Rx 3,CAD - no CP now, no ischemi patrick Stress test 11/13 4.PAD with nonhealing LE wounds - vascular to follow 5. -moderate by ECHo. Consultation Date/Type/Reason Admit Date/Time Nov 12, 2016 at 10:06 Initial Consult Date 11/13/16 Type of Consultation: ID Referring Provider: KRISTIN HALL MD 24 HR Interval Summary Free Text/Dictation no ischemia by lexalberto 11/13 only scar- per Dr. Powell, Mod - Ok for surgery, moderate risk. ROS: No fever, no chills, no nausea, no vomiting, no diarrhea/constipation No recent weight changes No chest pain, no PND, no orthopnea No dizziness, blurred vision No thirst, no heat or cold intolerance Exam/Review of Systems Vital Signs Vitals Vital Signs Date Time Temp Pulse Resp B/P Pulse Ox O2 Delivery O2 Flow Rate FiO2 11/16/16 08:54 98.0 64 18 144/69 99 11/12/16 13:16 Room Air Intake and Output 11/15/16 11/15/16 11/16/16 15:00 23:00 07:00 Intake Total 250 ml 1695 ml 1180 ml Balance 250 ml 1695 ml 1180 ml Exam General: WN/WD/NAD, AOx 2-3 HEENT: Unicetric/atraumatic/EOMI ( follow commands) NECK: JVD elevated, no thyromegaly Lymph: no lymphadenopathy HEART: regular with no S3, II/ systolic murmur at apex + 2/6 t base LUNGS: Coarse sounds ABD: soft, NT, ND, +BS : Intact Neuro: non focal SKIN: chronic changes EXT: trace edema, PAD severe Results Result Diagram: 11/13/16 0448 11/16/16 0539 Results 24 hrs Laboratory Tests Test 11/16/16 05:39 Prothrombin Time 17.1 H Prothrombin Time Ratio 1.3 INR International Normalized Ratio 1.39 Activated Partial Thromboplast Time 32.4 Sodium Level 144 Potassium Level 2.7 *L Chloride Level 109 Carbon Dioxide Level 20 L Anion Gap 18 H Blood Urea Nitrogen 6 L Creatinine 0.69 Glucose Level 84 Calcium Level 8.7 Medications Medications Current Medications Ondansetron HCl (Zofran Inj) 4 mg Q6H PRN IV NAUSEA AND/OR VOMITING; Start at 16:00 Acetaminophen (Tylenol Tab) 650 mg Q6H PRN PO PAIN LEVEL 1-3 OR FEVER; Start at 16:00 Morphine Sulfate (morphine) 2 mg Q4H PRN IV SEVERE PAIN LEVEL 7-10 Last administered on 11/16/16 00:34; Admin Dose 2 MG; Start 11/12/16 at 16:00 Pantoprazole (Protonix Tab) 40 mg DAILY@06 PO Last administered on 11/16/16 05 :15; Admin Dose 40 MG; Start 11/13/16 at 06:00 Enoxaparin Sodium (Lovenox) 30 mg DAILY SC Last administered on 11/16/16 08:04 ; Admin Dose 30 MG; Start 11/13/16 at 09:00 Aspirin (Halfprin) 81 mg DAILY PO Last administered on 11/16/16 08:04; Admin Dose 81 MG; Start 11/13/16 at 09:00 Diltiazem HCl (Cardizem Cd) 180 mg DAILY PO Last administered on 11/16/16 08: 04; Admin Dose 180 MG; Start 11/13/16 at 09:00 Famotidine (Pepcid) 40 mg HS PO Last administered on 11/15/16 20:26; Admin Dose 40 MG; Start 11/12/16 at 21:00 Folic Acid (Folic Acid) 1 mg DAILY PO Last administered on 11/16/16 08:04; Admin Dose 1 MG; Start 11/13/16 at 09:00 Mycophenolate Mofetil (Cellcept) 1,000 mg BID PO Last administered on 08:04; Admin Dose 1,000 MG; Start 11/12/16 at 21:00 Tacrolimus (Prograf) 2 mg Q12 PO Last administered on 11/16/16 08:04; Admin Dose 2 MG; Start 11/12/16 at 21:00 Citric Acid/ Sodium Citrate (Bicitra) 30 ml TID PO Last administered on 08:04; Admin Dose 30 ML; Start 11/12/16 at 21:00 Acetylcysteine (Nac) 1,200 mg BID PO Last administered on 11/16/16 08:04; Admin Dose 1,200 MG; Start 11/12/16 at 21:00 Metoprolol Tartrate (Lopressor) 75 mg BID PO Last administered on 11/16/16 08: 05; Admin Dose 75 MG; Start 11/12/16 at 21:00 Gabapentin (Neurontin) 100 mg TID PO Last administered on 11/16/16 08:04; Admin Dose 100 MG; Start 11/12/16 at 21:00 Collagenase (Santyl) 1 applic DAILY TOP Last administered on 11/15/16 12:41; Admin Dose 1 APPLIC; Start 11/12/16 at 21:00 Collagenase 1 applic 1 applic PRN PRN TOP WOUND CARE; Start 11/12/16 at 20:00 Sodium Chloride 1,000 ml @ 75 mls/hr [id number] IV Last administered on 14:53; Admin Dose 75 MLS/HR; Start 11/13/16 at 13:30 Levofloxacin/ Dextrose (Levaquin 500mg/ D5W 100 ml (Pmx)) 100 ml @ 100 mls/hr Q24H IVPB Last administered on 11/15/16 20:20; Admin Dose 100 MLS/HR; Start at 20:30 Benazepril HCl 10 mg 10 mg BID PO Last administered on 11/15/16 10:34; Admin Dose 10 MG; Start 11/14/16 at 11:00; Status Future Hold Metronidazole 100 ml @ 100 mls/hr Q8 IVPB Last administered on 11/16/16 05:30 ; Admin Dose 100 MLS/HR; Start 11/14/16 at 16:00 Daptomycin/Sodium Chloride (Cubicin/NS) 100 ml @ 200 mls/hr Q24H IVPB Last administered on 11/15/16 17:41; Admin Dose 200 MLS/HR; Start 11/14/16 at 17:00 Vancomycin HCl (Vancomycin Oral Syringe) 250 mg Q6 PO Last administered on 11/16 11:03; Admin Dose 250 MG; Start 11/14/16 at 18:00 Zolpidem Tartrate 5 mg 5 mg HS PRN PO INSOMNIA; Start 11/15/16 at 23:30 Potassium Chloride (KCl 40 MEQ/250 ML NS) 250 ml @ 62.5 mls/hr ONCE ONCE IVPB Last administered on 11/16/16t 10:41; Admin Dose 62.5 MLS/HR; Start 11/16/16 at 10:00; Stop 11/16/16 at 13:59 MIRELLA MOSER MD Nov 16, 2016 12:15
--- NOTE | 2016-11-16 13:49 | CONS ---
Date/Time of Note Date/Time of Note DATE: 11/16/16 TIME: 13:47 Assessment/Plan Assessment/Plan Additional Assessment/Plan 1. 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 h/o donor kidney transplant in 2009 at [facility], currently on immunosuppression with Prograf, CellCept 4. 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 History of hypertension. 6. History of diabetes mellitus. 7. History of previous left upper extremity arteriovenous fistula. 8. Mild Metabolic acidosis, Hypercalcemia Plan: IV abx as per Infectious disease service continue bicitra 30ml pO TID for acidosis, Cr normal today. s/p contrast exposure yesterda, pt will need Future Vascular intervetion next week as per - D/c mucomyst now, wcontinue IVF 1/2 NS at 75 cc/hr K replacement , Cr normal Continue current immunosuppresion with prograf,cellcept, no prednisone due to hypercalcemia will continue to follow up Consultation Date/Type/Reason Admit Date/Time Nov 12, 2016 at 10:06 Initial Consult Date 11/12/16 Type of Consultation: ID Referring Provider: KRISTIN HALL MD Exam/Review of Systems Vital Signs Vitals Vital Signs Date Time Temp Pulse Resp B/P Pulse Ox O2 Delivery O2 Flow Rate FiO2 11/16/16 08:54 98.0 64 18 144/69 99 11/12/16 13:16 Room Air Intake and Output 11/15/16 11/15/16 11/16/16 15:00 23:00 07:00 Intake Total 250 ml 1695 ml 1180 ml Balance 250 ml 1695 ml 1180 ml Exam Constitutional: alert, oriented Psych: no complaints Head: atraumatic, normocephalic Eyes: nl conjunctiva ENMT: nl external ears & nose Neck: non-tender, supple Respiratory: clear to auscultation, diminished breath sounds, normal air movement Cardiovascular: nl pulses, regular rate and rhythm Gastrointestinal: non-tender, soft Genitourinary - Female: other (deferred) Musculoskeletal: other (gangrenous toes of both lower extremities. Her recent operative amputations are healing, but with poor healing noted. No new trauma is noted.) Extremities: edema, other (diminished pulses in both LE ) Neurological: BOX [employer] CHECKER II-XII intact Lymph: nl lymph nodes Results Result Diagram: 11/13/16 0448 11/16/16 0539 Results 24 hrs Laboratory Tests Test 11/16/16 05:39 Prothrombin Time 17.1 H Prothrombin Time Ratio 1.3 INR International Normalized Ratio 1.39 Activated Partial Thromboplast Time 32.4 Sodium Level 144 Potassium Level 2.7 *L Chloride Level 109 Carbon Dioxide Level 20 L Anion Gap 18 H Blood Urea Nitrogen 6 L Creatinine 0.69 Glucose Level 84 Calcium Level 8.7 Medications Medications Current Medications Ondansetron HCl (Zofran Inj) 4 mg Q6H PRN IV NAUSEA AND/OR VOMITING; Start at 16:00 Acetaminophen (Tylenol Tab) 650 mg Q6H PRN PO PAIN LEVEL 1-3 OR FEVER; Start at 16:00 Morphine Sulfate (morphine) 2 mg Q4H PRN IV SEVERE PAIN LEVEL 7-10 Last administered on 11/16/16 00:34; Admin Dose 2 MG; Start 11/12/16 at 16:00 Pantoprazole (Protonix Tab) 40 mg DAILY@06 PO Last administered on 11/16/16 05 :15; Admin Dose 40 MG; Start 11/13/16 at 06:00 Enoxaparin Sodium (Lovenox) 30 mg DAILY SC Last administered on 11/16/16 08:04 ; Admin Dose 30 MG; Start 11/13/16 at 09:00 Aspirin (Halfprin) 81 mg DAILY PO Last administered on 11/16/16 08:04; Admin Dose 81 MG; Start 11/13/16 at 09:00 Diltiazem HCl (Cardizem Cd) 180 mg DAILY PO Last administered on 11/16/16 08: 04; Admin Dose 180 MG; Start 11/13/16 at 09:00 Famotidine (Pepcid) 40 mg HS PO Last administered on 11/15/16 20:26; Admin Dose 40 MG; Start 11/12/16 at 21:00 Folic Acid (Folic Acid) 1 mg DAILY PO Last administered on 11/16/16 08:04; Admin Dose 1 MG; Start 11/13/16 at 09:00 Mycophenolate Mofetil (Cellcept) 1,000 mg BID PO Last administered on 08:04; Admin Dose 1,000 MG; Start 11/12/16 at 21:00 Tacrolimus (Prograf) 2 mg Q12 PO Last administered on 11/16/16 08:04; Admin Dose 2 MG; Start 11/12/16 at 21:00 Citric Acid/ Sodium Citrate (Bicitra) 30 ml TID PO Last administered on 13:23; Admin Dose 30 ML; Start 11/12/16 at 21:00 Acetylcysteine (Nac) 1,200 mg BID PO Last administered on 11/16/16 08:04; Admin Dose 1,200 MG; Start 11/12/16 at 21:00 Metoprolol Tartrate (Lopressor) 75 mg BID PO Last administered on 11/16/16 08: 05; Admin Dose 75 MG; Start 11/12/16 at 21:00 Gabapentin (Neurontin) 100 mg TID PO Last administered on 11/16/16 13:23; Admin Dose 100 MG; Start 11/12/16 at 21:00 Collagenase (Santyl) 1 applic DAILY TOP Last administered on 11/15/16 12:41; Admin Dose 1 APPLIC; Start 11/12/16 at 21:00 Collagenase 1 applic 1 applic PRN PRN TOP WOUND CARE; Start 11/12/16 at 20:00 Sodium Chloride 1,000 ml @ 75 mls/hr [id number] IV Last administered on 14:53; Admin Dose 75 MLS/HR; Start 11/13/16 at 13:30 Levofloxacin/ Dextrose (Levaquin 500mg/ D5W 100 ml (Pmx)) 100 ml @ 100 mls/hr Q24H IVPB Last administered on 11/15/16 20:20; Admin Dose 100 MLS/HR; Start at 20:30 Benazepril HCl 10 mg 10 mg BID PO Last administered on 11/15/16 10:34; Admin Dose 10 MG; Start 11/14/16 at 11:00; Status Future Hold Metronidazole 100 ml @ 100 mls/hr Q8 IVPB Last administered on 11/16/16 05:30 ; Admin Dose 100 MLS/HR; Start 11/14/16 at 16:00 Daptomycin/Sodium Chloride (Cubicin/NS) 100 ml @ 200 mls/hr Q24H IVPB Last administered on 11/15/16 17:41; Admin Dose 200 MLS/HR; Start 11/14/16 at 17:00 Vancomycin HCl (Vancomycin Oral Syringe) 250 mg Q6 PO Last administered on 11/16 11:03; Admin Dose 250 MG; Start 11/14/16 at 18:00 Zolpidem Tartrate 5 mg 5 mg HS PRN PO INSOMNIA; Start 11/15/16 at 23:30 Potassium Chloride (KCl 40 MEQ/250 ML NS) 250 ml @ 62.5 mls/hr ONCE ONCE IVPB Last administered on 11/16/16 10:41; Admin Dose 62.5 MLS/HR; Start 11/16/16 at 10:00; Stop 11/16/16 at 13:59 RAMON KEMP MD Nov 16, 2016 13:48
[2016-11-16] MEDS: SOD CHLORIDE 0.45% 1,000 ML IV SCH (14:40)
[2016-11-16 14:57] LABS: CALCIUM 8.6 mg/dl (8.4-10.2); CREATININE 0.69 mg/dl (0.44-1.00); POTASSIUM 3.5 mmol/L (3.5-5.1)
[2016-11-16] MEDS: SOD CHLORIDE 0.9% IVPB SCH (16:41)
[2016-11-16] MEDS: LOPERAMIDE 2 MG CAP PO PRN (16:41)
[2016-11-16] MEDS: DAPTOMYCIN IVPB SCH (16:41)
[2016-11-16 17:07] VITALS: BP 125/68; RESP 20
--- NOTE | 2016-11-16 17:27 | CONS ---
Date/Time of Note Date/Time of Note DATE: 11/16/16 TIME: 17:24 Assessment/Plan Assessment/Plan Chief Complaint/Hosp Course ID PROGRESS NOTE CURRENT ABX=> Levaquin IV + Dapto + Flagyl IV + Vanco po #3 s/p Clindamycin-> DC"d due to severe diarrhea Vanco IV + Zosyn 11/12 24H INTERVAL SUMMARY * A/A/O =-> No fevers, still has (+)Diarrhea ->C.Diff (-) * Appreciate APC/Vascular note: (+)critical limb ischemia of both legs and limb salvage may be challenging for her and possibility of a major amputation in there. The plan is for staged revascularization procedures -> plan LLE first followed by RLE . PHYSICAL EXAMINATION: GENERAL: VSS, NAD HEENT: Unremarkable -- NECK: Supple, trachea midline. CHEST: Rise symmetrical, without dyspnea on observation HEART: Pulse RRR ABDOMEN: Soft, benign EXTREMITIES: Warm -- gangrenous toes ID ASSESSMENT 61 yo F admit with: 1. 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 Severe peripheral vascular disease status post angiogram with angioplasty 3. Hx of donor kidney transplant 2009, on Prograf, CellCept and prednisone. 4. 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 h/o donor kidney transplant in 2009 at [facility], currently on immunosuppression with Prograf, CellCept 6. HTN -> Poorly controlled 7. DM w/complications of DM polyneuropathies: renal, peripheral 8. History of previous left upper extremity arteriovenous fistula. 9. (+)Diarrhea => ABX associated suspect C.Diff 10. Hx of Thrombocytopenia FEB admission on Zyvox 11. Hx of CAD, 11/13 Lexiscan MIBI: No reversibility, no new WMA, EF 70% at stress (- )MRSA Nares screening last admit 10/31/15 INVASIVES: PIV, ABX ALLERGY: KNDA CURRENT ABX: Levaquin IV + Dapto + Flagyl IV + Vanco po #3 Clindamycin IV +=> DC TODAY DUE TO SEVERE DIARRHEA =>Vanco IV + Zosyn on 11/12/16 ID RECOMMENDATIONS 1. Pt is high risk immunocompromised host 2/2 DM + immunosuppressive renal Tx status 2. Hx of renal insufficiency with Vanco IV in the past, hx of thrombocytopenia w /Zyvox in the past * Dapto 6mg/kg pharmacy may adjust per renal => baseline CPK, ESR,CRP ordered for today, HOLD STATIN while on DAPTO * Flagyl 500mg IVPB daily * Vanco 125mg Liq PO Q6H for copious ABX associated diarrhea. * Continue Levaquin 3. Appreciate APC/Vascular note: (+)critical limb ischemia of both legs and limb salvage may be challenging for her and possibility of a major amputation in there. * The plan is for staged revascularization procedures -> plan LLE first followed by RLE . . Problems: Consultation Date/Type/Reason Admit Date/Time Nov 12, 2016 at 10:06 Initial Consult Date 11/12/16 Type of Consultation: ID Referring Provider: KRISTIN HALL MD Exam/Review of Systems Vital Signs Vitals Vital Signs Date Time Temp Pulse Resp B/P Pulse Ox O2 Delivery O2 Flow Rate FiO2 11/16/16 17:07 98.1 61 20 125/68 100 11/12/16 13:16 Room Air Intake and Output 11/15/16 11/15/16 11/16/16 15:00 23:00 07:00 Intake Total 250 ml 1695 ml 1180 ml Balance 250 ml 1695 ml 1180 ml Results Result Diagram: 11/13/16 0448 11/16/16 1411 Results 24 hrs Laboratory Tests Test 11/16/16 05:39 11/16/16 14:11 Prothrombin Time 17.1 H Prothrombin Time Ratio 1.3 INR International Normalized Ratio 1.39 Activated Partial Thromboplast Time 32.4 Sodium Level 144 144 Potassium Level 2.7 *L 3.5 Chloride Level 109 111 H Carbon Dioxide Level 20 L 21 Anion Gap 18 H 16 Blood Urea Nitrogen 6 L 5 L Creatinine 0.69 0.69 Glucose Level 84 110 Calcium Level 8.7 8.6 Medications Medications Current Medications Ondansetron HCl (Zofran Inj) 4 mg Q6H PRN IV NAUSEA AND/OR VOMITING; Start at 16:00 Acetaminophen (Tylenol Tab) 650 mg Q6H PRN PO PAIN LEVEL 1-3 OR FEVER; Start at 16:00 Morphine Sulfate (morphine) 2 mg Q4H PRN IV SEVERE PAIN LEVEL 7-10 Last administered on 11/16/16 00:34; Admin Dose 2 MG; Start 11/12/16 at 16:00 Pantoprazole (Protonix Tab) 40 mg DAILY@06 PO Last administered on 11/16/16 05 :15; Admin Dose 40 MG; Start 11/13/16 at 06:00 Enoxaparin Sodium (Lovenox) 30 mg DAILY SC Last administered on 11/16/16 08:04 ; Admin Dose 30 MG; Start 11/13/16 at 09:00 Aspirin (Halfprin) 81 mg DAILY PO Last administered on 11/16/16 08:04; Admin Dose 81 MG; Start 11/13/16 at 09:00 Diltiazem HCl (Cardizem Cd) 180 mg DAILY PO Last administered on 11/16/16 08: 04; Admin Dose 180 MG; Start 11/13/16 at 09:00 Famotidine (Pepcid) 40 mg HS PO Last administered on 11/15/16 20:26; Admin Dose 40 MG; Start 11/12/16 at 21:00 Folic Acid (Folic Acid) 1 mg DAILY PO Last administered on 11/16/16 08:04; Admin Dose 1 MG; Start 11/13/16 at 09:00 Mycophenolate Mofetil (Cellcept) 1,000 mg BID PO Last administered on 08:04; Admin Dose 1,000 MG; Start 11/12/16 at 21:00 Tacrolimus (Prograf) 2 mg Q12 PO Last administered on 11/16/16 08:04; Admin Dose 2 MG; Start 11/12/16 at 21:00 Citric Acid/ Sodium Citrate (Bicitra) 30 ml TID PO Last administered on 13:23; Admin Dose 30 ML; Start 11/12/16 at 21:00 Acetylcysteine (Nac) 1,200 mg BID PO Last administered on 11/16/16 08:04; Admin Dose 1,200 MG; Start 11/12/16 at 21:00 Metoprolol Tartrate (Lopressor) 75 mg BID PO Last administered on 11/16/16 08: 05; Admin Dose 75 MG; Start 11/12/16 at 21:00 Gabapentin (Neurontin) 100 mg TID PO Last administered on 11/16/16 13:23; Admin Dose 100 MG; Start 11/12/16 at 21:00 Collagenase (Santyl) 1 applic DAILY TOP Last administered on 11/15/16 12:41; Admin Dose 1 APPLIC; Start 11/12/16 at 21:00 Collagenase 1 applic 1 applic PRN PRN TOP WOUND CARE; Start 11/12/16 at 20:00 Sodium Chloride 1,000 ml @ 75 mls/hr [id number] IV Last administered on 14:40; Admin Dose 75 MLS/HR; Start 11/13/16 at 13:30 Levofloxacin/ Dextrose (Levaquin 500mg/ D5W 100 ml (Pmx)) 100 ml @ 100 mls/hr Q24H IVPB Last administered on 11/15/16 20:20; Admin Dose 100 MLS/HR; Start at 20:30 Benazepril HCl 10 mg 10 mg BID PO Last administered on 11/15/16 10:34; Admin Dose 10 MG; Start 11/14/16 at 11:00; Status Future Hold Metronidazole 100 ml @ 100 mls/hr Q8 IVPB Last administered on 11/16/16 14:40 ; Admin Dose 100 MLS/HR; Start 11/14/16 at 16:00 Daptomycin/Sodium Chloride (Cubicin/NS) 100 ml @ 200 mls/hr Q24H IVPB Last administered on 11/16/16 16:41; Admin Dose 200 MLS/HR; Start 11/14/16 at 17:00 Zolpidem Tartrate (Ambien) 5 mg HS PRN PO INSOMNIA; Start 11/15/16 at 23:30 Loperamide HCl (Imodium Cap) 2 mg QID PRN PO DIARRHEA Last administered on 11/16 16:41; Admin Dose 2 MG; Start 11/16/16 at 16:00 HAMZAH GARZA NP Nov 16, 2016 17:27
--- NOTE | 2016-11-16 18:17 | PN ---
Date/Time of Note Date/Time of Note DATE: 11/16/16 TIME: 18:16 Assessment/Plan Lines/Catheters IV Catheter Type (from [email or web address] Peripheral IV More[place] in Place (from Nrs): No Assessment/Plan Problems: (1) Genitourinary symptoms Status: Acute (2) DVT (deep venous thrombosis) Status: Acute (3) Encounter for wound re-check Status: Acute (4) Skin change Status: Acute (5) Acquired absence of other left toe(s) (6) Non-pressure chronic ulcer of other part of left foot with fat layer exposed (7) Peripheral vascular disease (8) Toe gangrene Assessment/Plan Patient has significant atherosclerotic disease of the lower extremities and his immunocompromise and is quite a challenge apparently according to vascular surgery. I will coordinate care with vascular surgery and the team in order to optimize her limb salvage chances. At this time we will continue Betadine paint wound bilateral feet. Patient remains at high risk for worsening of condition and limb loss. Wound care will continue. Patient will be followed in -house. Subjective 24 Hr Interval Summary Patient was seen and examined at bedside. Patient has been evaluated by vascular surgery. Patient apparently has progression of her significant infrainguinal atherosclerotic disease with extensive infrainguinal disease bilaterally. Patient is currently being assessed for all possible surgical intravenous modalities for reperfusion of her limbs. Pain Control: moderate Exam/Review of Systems Vital Signs Vitals Vital Signs Date Time Temp Pulse Resp B/P Pulse Ox O2 Delivery O2 Flow Rate FiO2 11/16/16 17:07 98.1 61 20 125/68 100 11/12/16 13:16 Room Air Intake and Output 11/15/16 11/15/16 11/16/16 15:00 23:00 07:00 Intake Total 250 ml 1695 ml 1180 ml Balance 250 ml 1695 ml 1180 ml Exam Free Text/Dictation Patient is in no acute distress. Bilateral forefoot cyanotic changes noted. Status post amputation of the right big toe on the left foot fifth toes with gangrenous changes of the amputation site. No other major changes noted. Results Result Diagram: 11/13/16 0448 11/16/16 1411 PHILLIP EMANUEL DPM Nov 16, 2016 18:17
--- NOTE | 2016-11-16 19:02 | PN ---
Date/Time of Note Date/Time of Note DATE: 11/16/16 TIME: 19:01 Assessment/Plan VTE Prophylaxis VTE Prophylaxis Intervention: LMWH Lines/Catheters IV Catheter Type (from Nrsg): Peripheral IV Urinary Cath still in place: No Assessment/Plan Chief Complaint/Hosp Course 61 yo female wt h/o kidney transplant on immunosuppresion, severe PAD leading to OM and nonhealing wounds, DMII with foot OM and claudication Osteomyelitis: - Continue abx per ID for osteo of foot Peripheral vascular disease: - Management per vascular, needs revascularization - Continue medical management with aspirin, statin, BP controlled H/o reanl transplant: - Continue cellcept, tacrolimus. Holding prednisone Hypokalemia: - Likely from diarrhea, low PO - Supplement as needed Diarrhea: - C Diff negative - Suspect abx induced - Loperamide Problems: Subjective 24 Hr Interval Summary Free Text/Dictation Marked hypokalemia has developed Patient reports diarrhea, watery a few times a day. Not taking much PO she says as a results. No abomdinal pain. Continued LE pain Exam/Review of Systems Vital Signs Vitals Vital Signs Date Time Temp Pulse Resp B/P Pulse Ox O2 Delivery O2 Flow Rate FiO2 11/16/16 17:07 98.1 61 20 125/68 100 11/12/16 13:16 Room Air Intake and Output 11/15/16 11/15/16 11/16/16 15:00 23:00 07:00 Intake Total 250 ml 1695 ml 1180 ml Balance 250 ml 1695 ml 1180 ml Results Result Diagram: 11/13/16 0448 11/16/16 1411 Results 24 hrs Laboratory Tests Test 11/16/16 05:39 11/16/16 14:11 Prothrombin Time 17.1 H Prothrombin Time Ratio 1.3 INR International Normalized Ratio 1.39 Activated Partial Thromboplast Time 32.4 Sodium Level 144 144 Potassium Level 2.7 *L 3.5 Chloride Level 109 111 H Carbon Dioxide Level 20 L 21 Anion Gap 18 H 16 Blood Urea Nitrogen 6 L 5 L Creatinine 0.69 0.69 Glucose Level 84 110 Calcium Level 8.7 8.6 Medications Medications Current Medications Ondansetron HCl (Zofran Inj) 4 mg Q6H PRN IV NAUSEA AND/OR VOMITING; Start at 16:00 Acetaminophen (Tylenol Tab) 650 mg Q6H PRN PO PAIN LEVEL 1-3 OR FEVER; Start at 16:00 Morphine Sulfate (morphine) 2 mg Q4H PRN IV SEVERE PAIN LEVEL 7-10 Last administered on 11/16/16 00:34; Admin Dose 2 MG; Start 11/12/16 at 16:00 Pantoprazole (Protonix Tab) 40 mg DAILY@06 PO Last administered on 11/16/16 05 :15; Admin Dose 40 MG; Start 11/13/16 at 06:00 Enoxaparin Sodium (Lovenox) 30 mg DAILY SC Last administered on 11/16/16 08:04 ; Admin Dose 30 MG; Start 11/13/16 at 09:00 Aspirin (Halfprin) 81 mg DAILY PO Last administered on 11/16/16 08:04; Admin Dose 81 MG; Start 11/13/16 at 09:00 Diltiazem HCl (Cardizem Cd) 180 mg DAILY PO Last administered on 11/16/16 08: 04; Admin Dose 180 MG; Start 11/13/16 at 09:00 Famotidine (Pepcid) 40 mg HS PO Last administered on 11/15/16 20:26; Admin Dose 40 MG; Start 11/12/16 at 21:00 Folic Acid (Folic Acid) 1 mg DAILY PO Last administered on 11/16/16 08:04; Admin Dose 1 MG; Start 11/13/16 at 09:00 Mycophenolate Mofetil (Cellcept) 1,000 mg BID PO Last administered on 08:04; Admin Dose 1,000 MG; Start 11/12/16 at 21:00 Tacrolimus (Prograf) 2 mg Q12 PO Last administered on 11/16/16 08:04; Admin Dose 2 MG; Start 11/12/16 at 21:00 Citric Acid/ Sodium Citrate (Bicitra) 30 ml TID PO Last administered on 13:23; Admin Dose 30 ML; Start 11/12/16 at 21:00 Acetylcysteine (Nac) 1,200 mg BID PO Last administered on 11/16/16 08:04; Admin Dose 1,200 MG; Start 11/12/16 at 21:00 Metoprolol Tartrate (Lopressor) 75 mg BID PO Last administered on 11/16/16 08: 05; Admin Dose 75 MG; Start 11/12/16 at 21:00 Gabapentin 100 mg 100 mg TID PO Last administered on 11/16/16 13:23; Admin Dose 100 MG; Start 11/12/16 at 21:00 Sodium Chloride 1,000 ml @ 75 mls/hr [id number] IV Last administered on 14:40; Admin Dose 75 MLS/HR; Start 11/13/16 at 13:30 Levofloxacin/ Dextrose (Levaquin 500mg/ D5W 100 ml (Pmx)) 100 ml @ 100 mls/hr Q24H IVPB Last administered on 11/15/16 20:20; Admin Dose 100 MLS/HR; Start at 20:30 Benazepril HCl 10 mg 10 mg BID PO Last administered on 11/15/16 10:34; Admin Dose 10 MG; Start 11/14/16 at 11:00; Status Future Hold Metronidazole 100 ml @ 100 mls/hr Q8 IVPB Last administered on 11/16/16 14:40 ; Admin Dose 100 MLS/HR; Start 11/14/16 at 16:00 Daptomycin/Sodium Chloride (Cubicin/NS) 100 ml @ 200 mls/hr Q24H IVPB Last administered on 11/16/16 16:41; Admin Dose 200 MLS/HR; Start 11/14/16 at 17:00 Zolpidem Tartrate (Ambien) 5 mg HS PRN PO INSOMNIA; Start 11/15/16 at 23:30 Loperamide HCl (Imodium Cap) 2 mg QID PRN PO DIARRHEA Last administered on 11/16 16:41; Admin Dose 2 MG; Start 11/16/16 at 16:00 ARSEN JJ MD Nov 16, 2016 19:02
[2016-11-16] MEDS ORDERED: POTASSIUM CHLORIDE (SR) 20 MEQ TAB PO STA (19:14)
[2016-11-16 19:59] VITALS: BP 140/69; RESP 16
[2016-11-16] MEDS: LEVOFLOXACIN 500MG/D5W (PMX) 100 ML IVPB SCH (20:28)
[2016-11-16] MEDS: FAMOTIDINE 20 MG TAB PO SCH (20:31)
[2016-11-17 02:00] VITALS: BP 137/66; RESP 20
[2016-11-17] MEDS: morphine 2 MG INJ IV PRN ×2 (02:26→16:45)
[2016-11-17] MEDS: PANTOPRAZOLE (EC) 40 MG TAB PO SCH (05:36)
[2016-11-17] MEDS: metroNIDAZOLE 500 MG/NS (PMX) 100 ML IVPB SCH ×3 (05:36→22:24)
[2016-11-17 06:25] LABS: CREATININE 0.64 mg/dl (0.44-1.00); MAGNESIUM 1.1 mg/dl (1.7-2.5); POTASSIUM 3.8 mmol/L (3.5-5.1)
[2016-11-17] MEDS: SOD CHLORIDE 0.45% 1,000 ML IV SCH ×2 (06:37→10:50)
[2016-11-17 08:00] VITALS: BP 150/72; RESP 17
[2016-11-17] MEDS: GABAPENTIN 100 MG CAP PO SCH ×3 (08:46→21:23)
[2016-11-17] MEDS: DILTIAZEM (CD) 180 MG CAP PO SCH (08:47)
[2016-11-17] MEDS: MYCOPHENOLATE 250 MG CAP PO SCH ×2 (08:47→21:23)
[2016-11-17] MEDS: FOLIC ACID 1 MG TAB PO SCH (08:47)
[2016-11-17] MEDS: ASPIRIN (EC) 81 MG TAB PO SCH (08:47)
[2016-11-17] MEDS: TACROLIMUS 1 MG CAP PO SCH ×2 (08:47→21:23)
[2016-11-17] MEDS: ACETYLCYSTEINE 600 MG CAP PO SCH ×2 (08:47→21:23)
[2016-11-17] MEDS: ENOXAPARIN 30 MG/0.3 ML SYG SC SCH (08:48)
[2016-11-17] MEDS: CITRIC ACID/NA CITRATE 30 ML CUP PO SCH ×3 (08:48→21:22)
[2016-11-17] MEDS: METOPROLOL 25 MG TAB PO SCH ×2 (08:48→21:24)
[2016-11-17] MEDS: LOPERAMIDE 2 MG CAP PO PRN (12:51)
--- NOTE | 2016-11-17 13:59 | CONS ---
Date/Time of Note Date/Time of Note DATE: 11/17/16 TIME: 13:55 Assessment/Plan Assessment/Plan Chief Complaint/Hosp Course Assessment/Plan Chief Complaint/Hosp Course ID PROGRESS NOTE CURRENT ABX=> Levaquin IV + Dapto + Flagyl IV + Vanco po #3 s/p Clindamycin-> DC"d due to severe diarrhea Vanco IV + Zosyn 11/12 24H INTERVAL SUMMARY 1. Alert. Oriented. No Acute Distress. PHYSICAL EXAMINATION: GENERAL: VSS, NAD HEENT: Unremarkable -- NECK: Supple, trachea midline. CHEST: Rise symmetrical, without dyspnea on observation HEART: Pulse RRR ABDOMEN: Soft, benign EXTREMITIES: Warm -- gangrenous toes ID ASSESSMENT 61 yo F admit with: 1. 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 Severe peripheral vascular disease status post angiogram with angioplasty 3. Hx of donor kidney transplant 2009, on Prograf, CellCept and prednisone. 4. 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 h/o donor kidney transplant in 2009 at [facility], currently on immunosuppression with Prograf, CellCept 6. HTN -> Poorly controlled 7. DM w/complications of DM polyneuropathies: renal, peripheral 8. History of previous left upper extremity arteriovenous fistula. 9. (+)Diarrhea => ABX associated suspect C.Diff 10. Hx of Thrombocytopenia FEB admission on Zyvox 11. Hx of CAD, 11/13 Lexiscan MIBI: No reversibility, no new WMA, EF 70% at stress (- )MRSA Nares screening last admit 10/31/15 INVASIVES: PIV, ABX ALLERGY: KNDA CURRENT ABX: Levaquin IV + Dapto + Flagyl IV + Vanco po #3 Clindamycin IV +=> DC TODAY DUE TO SEVERE DIARRHEA =>Vanco IV + Zosyn on 11/12/16 ID RECOMMENDATIONS 1. Pt is high risk immunocompromised host 2/2 DM + immunosuppressive renal Tx status 2. Hx of renal insufficiency with Vanco IV in the past, hx of thrombocytopenia w /Zyvox in the past * Dapto 6mg/kg pharmacy may adjust per renal => baseline CPK, ESR,CRP ordered for today, HOLD STATIN while on DAPTO * Flagyl 500mg IVPB daily * Vanco 125mg Liq PO Q6H for copious ABX associated diarrhea. * Continue Levaquin 3. Appreciate APC/Vascular note: (+)critical limb ischemia of both legs and limb salvage may be challenging for her and possibility of a major amputation in there. * The plan is for staged revascularization procedures -> plan LLE first followed by RLE . 4. Monitor Labs. Problems: Consultation Date/Type/Reason Admit Date/Time Nov 12, 2016 at 10:06 Initial Consult Date 11/13/16 Type of Consultation: id Referring Provider: KRISTIN HALL MD Exam/Review of Systems Vital Signs Vitals Vital Signs Date Time Temp Pulse Resp B/P Pulse Ox O2 Delivery O2 Flow Rate FiO2 11/17/16 08:00 98.3 63 17 150/72 100 Intake and Output 11/16/16 11/16/16 11/17/16 15:00 23:00 07:00 Intake Total 475 ml 1070 ml 1300 ml Balance 475 ml 1070 ml 1300 ml Results Result Diagram: 11/13/16 0448 11/17/16 0446 Results 24 hrs Laboratory Tests Test 11/16/16 14:11 11/17/16 04:46 Sodium Level 144 146 H Potassium Level 3.5 3.8 Chloride Level 111 H 111 H Carbon Dioxide Level 21 20 L Anion Gap 16 19 H Blood Urea Nitrogen 5 L 4 L Creatinine 0.69 0.64 Glucose Level 110 86 Calcium Level 8.6 9.0 Magnesium Level 1.1 L Medications Medications Current Medications Ondansetron HCl (Zofran Inj) 4 mg Q6H PRN IV NAUSEA AND/OR VOMITING; Start at 16:00 Acetaminophen (Tylenol Tab) 650 mg Q6H PRN PO PAIN LEVEL 1-3 OR FEVER; Start at 16:00 Morphine Sulfate (morphine) 2 mg Q4H PRN IV SEVERE PAIN LEVEL 7-10 Last administered on 11/17/16t 02:26; Admin Dose 2 MG; Start 11/12/16 at 16:00 Pantoprazole (Protonix Tab) 40 mg DAILY@06 PO Last administered on 11/17/16 05 :36; Admin Dose 40 MG; Start 11/13/16 at 06:00 Enoxaparin Sodium (Lovenox) 30 mg DAILY SC Last administered on 11/17/16 08:48 ; Admin Dose 30 MG; Start 11/13/16 at 09:00 Aspirin (Halfprin) 81 mg DAILY PO Last administered on 11/17/16 08:47; Admin Dose 81 MG; Start 11/13/16 at 09:00 Diltiazem HCl (Cardizem Cd) 180 mg DAILY PO Last administered on 11/17/16 08: 47; Admin Dose 180 MG; Start 11/13/16 at 09:00 Famotidine (Pepcid) 40 mg HS PO Last administered on 11/16/16 20:31; Admin Dose 40 MG; Start 11/12/16 at 21:00 Folic Acid (Folic Acid) 1 mg DAILY PO Last administered on 11/17/16 08:47; Admin Dose 1 MG; Start 11/13/16 at 09:00 Mycophenolate Mofetil (Cellcept) 1,000 mg BID PO Last administered on 08:47; Admin Dose 1,000 MG; Start 11/12/16 at 21:00 Tacrolimus (Prograf) 2 mg Q12 PO Last administered on 11/17/16 08:47; Admin Dose 2 MG; Start 11/12/16 at 21:00 Citric Acid/ Sodium Citrate (Bicitra) 30 ml TID PO Last administered on 12:45; Admin Dose 30 ML; Start 11/12/16 at 21:00 Acetylcysteine (Nac) 1,200 mg BID PO Last administered on 11/17/16 08:47; Admin Dose 1,200 MG; Start 11/12/16 at 21:00 Metoprolol Tartrate (Lopressor) 75 mg BID PO Last administered on 11/17/16 08: 48; Admin Dose 75 MG; Start 11/12/16 at 21:00 Gabapentin 100 mg 100 mg TID PO Last administered on 11/17/16 12:45; Admin Dose 100 MG; Start 11/12/16 at 21:00 Sodium Chloride 1,000 ml @ 75 mls/hr [id number] IV Last administered on 06:37; Admin Dose 75 MLS/HR; Start 11/13/16 at 13:30 Levofloxacin/ Dextrose (Levaquin 500mg/ D5W 100 ml (Pmx)) 100 ml @ 100 mls/hr Q24H IVPB Last administered on 11/16/16 20:28; Admin Dose 100 MLS/HR; Start at 20:30 Benazepril HCl 10 mg 10 mg BID PO Last administered on 11/15/16 10:34; Admin Dose 10 MG; Start 11/14/16 at 11:00; Status Future Hold Metronidazole 100 ml @ 100 mls/hr Q8 IVPB Last administered on 11/17/16 05:36 ; Admin Dose 100 MLS/HR; Start 11/14/16 at 16:00 Daptomycin/Sodium Chloride (Cubicin/NS) 100 ml @ 200 mls/hr Q24H IVPB Last administered on 11/16/16 16:41; Admin Dose 200 MLS/HR; Start 11/14/16 at 17:00 Zolpidem Tartrate (Ambien) 5 mg HS PRN PO INSOMNIA; Start 11/15/16 at 23:30 Loperamide HCl (Imodium Cap) 2 mg QID PRN PO DIARRHEA Last administered on 11/17 12:51; Admin Dose 2 MG; Start 11/16/16 at 16:00 ROBERT GOETZ NP Nov 17, 2016 13:59
[2016-11-17 14:00] VITALS: BP 132/60; RESP 19
[2016-11-17] MEDS: DAPTOMYCIN IVPB SCH (16:34)
[2016-11-17] MEDS: SOD CHLORIDE 0.9% IVPB SCH (16:34)
--- NOTE | 2016-11-17 17:21 | CONS ---
Date/Time of Note Date/Time of Note DATE: 11/17/16 TIME: 17:19 Assessment/Plan Assessment/Plan Additional Assessment/Plan 1. Pre-op for LE vascular procedure. Nl EF and no ischemia by lexiscan 11/13 only scar- per Dr. Powell, Mod - Ok for surgery, moderate risk. 2.HTN-uncontrolled - con't to adjust Rx - will monitor 3,CAD - no CP now, no ischemi patrick Stress test 11/13 4.PAD with nonhealing LE wounds - vascular to follow, wound care in place 5. -moderate by ECHo.- no intervention planned now Consultation Date/Type/Reason Admit Date/Time Nov 12, 2016 at 10:06 Initial Consult Date 11/13/16 Type of Consultation: id Referring Provider: KRISTIN HALL MD 24 HR Interval Summary Free Text/Dictation NO acute events - BP in good range - con't to monitor ROS: No fever, no chills, no nausea, no vomiting, no diarrhea/constipation No recent weight changes No chest pain, no PND, no orthopnea No dizziness, blurred vision No thirst, no heat or cold intolerance Exam/Review of Systems Vital Signs Vitals Vital Signs Date Time Temp Pulse Resp B/P Pulse Ox O2 Delivery O2 Flow Rate FiO2 11/17/16 08:00 98.3 63 17 150/72 100 Intake and Output 11/16/16 11/16/16 11/17/16 15:00 23:00 07:00 Intake Total 475 ml 1070 ml 1300 ml Balance 475 ml 1070 ml 1300 ml Exam General: WN/WD/NAD, AOx 1-2 HEENT: Unicetric/atraumatic/EOMI (follow commands) NECK: JVD elevated, no thyromegaly Lymph: no lymphadenopathy HEART: regular with no S3, II/ systolic murmur at apex LUNGS: Coarse sounds ABD: soft, NT, ND, +BS : Intact Neuro: non focal SKIN: chronic changes EXT: trace edema, PAD Results Result Diagram: 11/13/16 0448 11/17/16 0446 Results 24 hrs Laboratory Tests Test 11/17/16 04:46 Sodium Level 146 H Potassium Level 3.8 Chloride Level 111 H Carbon Dioxide Level 20 L Anion Gap 19 H Blood Urea Nitrogen 4 L Creatinine 0.64 Glucose Level 86 Calcium Level 9.0 Magnesium Level 1.1 L Medications Medications Current Medications Ondansetron HCl (Zofran Inj) 4 mg Q6H PRN IV NAUSEA AND/OR VOMITING; Start at 16:00 Acetaminophen (Tylenol Tab) 650 mg Q6H PRN PO PAIN LEVEL 1-3 OR FEVER; Start at 16:00 Morphine Sulfate (morphine) 2 mg Q4H PRN IV SEVERE PAIN LEVEL 7-10 Last administered on 11/17/16 16:45; Admin Dose 2 MG; Start 11/12/16 at 16:00 Pantoprazole (Protonix Tab) 40 mg DAILY@06 PO Last administered on 11/17/16 05 :36; Admin Dose 40 MG; Start 11/13/16 at 06:00 Enoxaparin Sodium (Lovenox) 30 mg DAILY SC Last administered on 11/17/16 08:48 ; Admin Dose 30 MG; Start 11/13/16 at 09:00 Aspirin (Halfprin) 81 mg DAILY PO Last administered on 11/17/16 08:47; Admin Dose 81 MG; Start 11/13/16 at 09:00 Diltiazem HCl (Cardizem Cd) 180 mg DAILY PO Last administered on 11/17/16 08: 47; Admin Dose 180 MG; Start 11/13/16 at 09:00 Famotidine (Pepcid) 40 mg HS PO Last administered on 11/16/16 20:31; Admin Dose 40 MG; Start 11/12/16 at 21:00 Folic Acid (Folic Acid) 1 mg DAILY PO Last administered on 11/17/16 08:47; Admin Dose 1 MG; Start 11/13/16 at 09:00 Mycophenolate Mofetil (Cellcept) 1,000 mg BID PO Last administered on 08:47; Admin Dose 1,000 MG; Start 11/12/16 at 21:00 Tacrolimus (Prograf) 2 mg Q12 PO Last administered on 11/17/16 08:47; Admin Dose 2 MG; Start 11/12/16 at 21:00 Citric Acid/ Sodium Citrate (Bicitra) 30 ml TID PO Last administered on 12:45; Admin Dose 30 ML; Start 11/12/16 at 21:00 Acetylcysteine (Nac) 1,200 mg BID PO Last administered on 11/17/16 08:47; Admin Dose 1,200 MG; Start 11/12/16 at 21:00 Metoprolol Tartrate (Lopressor) 75 mg BID PO Last administered on 11/17/16 08: 48; Admin Dose 75 MG; Start 11/12/16 at 21:00 Gabapentin 100 mg 100 mg TID PO Last administered on 11/17/16 12:45; Admin Dose 100 MG; Start 11/12/16 at 21:00 Sodium Chloride 1,000 ml @ 75 mls/hr [id number] IV Last administered on 06:37; Admin Dose 75 MLS/HR; Start 11/13/16 at 13:30 Levofloxacin/ Dextrose (Levaquin 500mg/ D5W 100 ml (Pmx)) 100 ml @ 100 mls/hr Q24H IVPB Last administered on 11/16/16 20:28; Admin Dose 100 MLS/HR; Start at 20:30 Benazepril HCl 10 mg 10 mg BID PO Last administered on 11/15/16 10:34; Admin Dose 10 MG; Start 11/14/16 at 11:00; Status Future Hold Metronidazole 100 ml @ 100 mls/hr Q8 IVPB Last administered on 11/17/16 14:25 ; Admin Dose 100 MLS/HR; Start 11/14/16 at 16:00 Daptomycin/Sodium Chloride (Cubicin/NS) 100 ml @ 200 mls/hr Q24H IVPB Last administered on 11/17/16 16:34; Admin Dose 200 MLS/HR; Start 11/14/16 at 17:00 Zolpidem Tartrate (Ambien) 5 mg HS PRN PO INSOMNIA; Start 11/15/16 at 23:30 Loperamide HCl (Imodium Cap) 2 mg QID PRN PO DIARRHEA Last administered on 11/17 12:51; Admin Dose 2 MG; Start 11/16/16 at 16:00 MIRELLA MOSER MD Nov 17, 2016 17:21
--- NOTE | 2016-11-17 17:50 | PN ---
Date/Time of Note Date/Time of Note DATE: 11/17/16 TIME: 17:50 Assessment/Plan VTE Prophylaxis VTE Prophylaxis Intervention: heparin, LMWH Lines/Catheters IV Catheter Type (from Nrsg): Peripheral IV Urinary Cath still in place: No Assessment/Plan Chief Complaint/Hosp Course 61 yo female wt h/o kidney transplant on immunosuppresion, severe PAD leading to OM and nonhealing wounds, DMII with foot OM and claudication Osteomyelitis: - Continue abx per ID for osteo of foot Peripheral vascular disease: - Management per vascular, needs revascularization - Continue medical management with aspirin, statin, BP controlled H/o reanl transplant: - Continue cellcept, tacrolimus. Holding prednisone Hypokalemia: - Likely from diarrhea, low PO - Supplement as needed Diarrhea: - C Diff negative - Suspect abx induced - Loperamide Problems: Subjective 24 Hr Interval Summary Free Text/Dictation No events, stable LE pain Exam/Review of Systems Vital Signs Vitals Vital Signs Date Time Temp Pulse Resp B/P Pulse Ox O2 Delivery O2 Flow Rate FiO2 11/17/16 14:00 98.2 61 19 132/60 100 Intake and Output 11/16/16 11/16/16 11/17/16 15:00 23:00 07:00 Intake Total 475 ml 1070 ml 1300 ml Balance 475 ml 1070 ml 1300 ml Results Result Diagram: 11/13/16 0448 11/17/16 0446 Results 24 hrs Laboratory Tests Test 11/17/16 04:46 Sodium Level 146 H Potassium Level 3.8 Chloride Level 111 H Carbon Dioxide Level 20 L Anion Gap 19 H Blood Urea Nitrogen 4 L Creatinine 0.64 Glucose Level 86 Calcium Level 9.0 Magnesium Level 1.1 L Medications Medications Current Medications Ondansetron HCl (Zofran Inj) 4 mg Q6H PRN IV NAUSEA AND/OR VOMITING; Start at 16:00 Acetaminophen (Tylenol Tab) 650 mg Q6H PRN PO PAIN LEVEL 1-3 OR FEVER; Start at 16:00 Morphine Sulfate (morphine) 2 mg Q4H PRN IV SEVERE PAIN LEVEL 7-10 Last administered on 11/17/16 16:45; Admin Dose 2 MG; Start 11/12/16 at 16:00 Pantoprazole (Protonix Tab) 40 mg DAILY@06 PO Last administered on 11/17/16 05 :36; Admin Dose 40 MG; Start 11/13/16 at 06:00 Enoxaparin Sodium (Lovenox) 30 mg DAILY SC Last administered on 11/17/16 08:48 ; Admin Dose 30 MG; Start 11/13/16 at 09:00 Aspirin (Halfprin) 81 mg DAILY PO Last administered on 11/17/16 08:47; Admin Dose 81 MG; Start 11/13/16 at 09:00 Diltiazem HCl (Cardizem Cd) 180 mg DAILY PO Last administered on 11/17/16 08: 47; Admin Dose 180 MG; Start 11/13/16 at 09:00 Famotidine (Pepcid) 40 mg HS PO Last administered on 11/16/16 20:31; Admin Dose 40 MG; Start 11/12/16 at 21:00 Folic Acid (Folic Acid) 1 mg DAILY PO Last administered on 11/17/16 08:47; Admin Dose 1 MG; Start 11/13/16 at 09:00 Mycophenolate Mofetil (Cellcept) 1,000 mg BID PO Last administered on 08:47; Admin Dose 1,000 MG; Start 11/12/16 at 21:00 Tacrolimus (Prograf) 2 mg Q12 PO Last administered on 11/17/16 08:47; Admin Dose 2 MG; Start 11/12/16 at 21:00 Citric Acid/ Sodium Citrate (Bicitra) 30 ml TID PO Last administered on 12:45; Admin Dose 30 ML; Start 11/12/16 at 21:00 Acetylcysteine (Nac) 1,200 mg BID PO Last administered on 11/17/16 08:47; Admin Dose 1,200 MG; Start 11/12/16 at 21:00 Metoprolol Tartrate (Lopressor) 75 mg BID PO Last administered on 11/17/16 08: 48; Admin Dose 75 MG; Start 11/12/16 at 21:00 Gabapentin 100 mg 100 mg TID PO Last administered on 11/17/16 12:45; Admin Dose 100 MG; Start 11/12/16 at 21:00 Sodium Chloride 1,000 ml @ 75 mls/hr [id number] IV Last administered on 06:37; Admin Dose 75 MLS/HR; Start 11/13/16 at 13:30 Levofloxacin/ Dextrose (Levaquin 500mg/ D5W 100 ml (Pmx)) 100 ml @ 100 mls/hr Q24H IVPB Last administered on 11/16/16 20:28; Admin Dose 100 MLS/HR; Start at 20:30 Benazepril HCl 10 mg 10 mg BID PO Last administered on 11/15/16 10:34; Admin Dose 10 MG; Start 11/14/16 at 11:00; Status Future Hold Metronidazole 100 ml @ 100 mls/hr Q8 IVPB Last administered on 11/17/16 14:25 ; Admin Dose 100 MLS/HR; Start 11/14/16 at 16:00 Daptomycin/Sodium Chloride (Cubicin/NS) 100 ml @ 200 mls/hr Q24H IVPB Last administered on 11/17/16 16:34; Admin Dose 200 MLS/HR; Start 11/14/16 at 17:00 Zolpidem Tartrate (Ambien) 5 mg HS PRN PO INSOMNIA; Start 11/15/16 at 23:30 Loperamide HCl (Imodium Cap) 2 mg QID PRN PO DIARRHEA Last administered on 11/17 12:51; Admin Dose 2 MG; Start 11/16/16 at 16:00 ARSEN JJ MD Nov 17, 2016 17:50
--- NOTE | 2016-11-17 17:56 | CONS ---
DATE OF ADMISSION: 11/12/2016 DATE OF CONSULTATION: 11/12/2016 REASON FOR CONSULTATION: Antibiotic management. HISTORY OF PRESENT ILLNESS: The patient is a 61-year-old, female, with numerous problems, who was admitted with possible postop wound infection status post bilateral 5th and 4th toe amputation by Dr. Reynaga. The patient has numerous problems including, 1. End-stage renal disease, status post renal transplant in 2009. 2. Hypertension. 3. Dyslipidemia. 4. 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 5. History of left lower extremity DVT and bilateral lower extremity atherosclerosis. The patient underwent bilateral lower extremity angiogram with multiple vascular interventions in May,. She had bilateral pyoderma gangrenosa involving the toes and recently underwent bilateral toe amputation of her 5th toes by Dr. Reynaga. She presented to the emergency room with severe left lower extremity pain extending from the toe to the ankle. She also complained of chills. She is taking CellCept and tacrolimus. On admission, her white count was 10.5, hemoglobin and hematocrit of 12.8 and 39.9, platelet count 239,000. BUN and creatinine 20/0.88. PAST MEDICAL HISTORY: Operations as outlined. She also has a left upper extremity AV fistula for dialysis placed many years ago. FAMILY HISTORY: Noncontributory. SOCIAL HISTORY: She does not smoke, drink, or abuse drugs. ALLERGIES: NONE TO PENICILLIN, SULFA, OR FOODS. MEDICATIONS: Per chart. REVIEW OF SYSTEMS: As per HPI. PHYSICAL EXAMINATION: Patient is a well-developed, well- nourished female, alert, responsive, oriented times 3, in no acute distress. VITAL SIGNS: Stable. She is afebrile. SKIN: Without generalized rash. HEENT: Within normal limits. NECK: Supple. Lymph nodes nonpalpable. CHEST: Decreased breath sounds at the bases. HEART: Without murmur or gallop. ABDOMEN: Soft, nontender, without organosplenomegaly or masses. EXTREMITIES: She has gangrenous toes in both lower extremities. Recent amputations are healing, but poorly. She is edematous with decreased pulses in both lower extremities. RECTAL/GENITAL: Deferred. NEUROLOGICAL: No focal neurological abnormalities. IMPRESSION AND PLAN: Patient currently comes in with lower extremity cellulitis bilateral, possible postoperative infection. The patient was started on vancomycin and Zosyn and that is what she is currently on, though vancomycin will be probably every 3 to 4 days. She had blood cultures done and MRSA screen done as well. I will dictate my findings to Dr. Cohen and Dr. Mary Briscoe. Dictated By: Tod Bowen MD JD/santiago/panfilo /Document#: [id number]
[2016-11-17] MEDS ORDERED: MAGNESIUM SULFATE 2 GM/50 ML 50 ML IVPB ONE (20:00)
[2016-11-17 20:14] VITALS: BP 158/78; RESP 18
[2016-11-17] MEDS: LEVOFLOXACIN 500MG/D5W (PMX) 100 ML IVPB SCH (21:22)
[2016-11-17] MEDS: FAMOTIDINE 20 MG TAB PO SCH (21:23)
[2016-11-17 22:00] VITALS: BP 138/72; PULSE 67; RESP 18
--- NOTE | 2016-11-17 22:12 | CONS ---
Date/Time of Note Date/Time of Note DATE: 11/17/16 TIME: 22:11 Assessment/Plan Assessment/Plan Additional Assessment/Plan 1. 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 h/o donor kidney transplant in 2009 at [facility], currently on immunosuppression with Prograf, CellCept 4. 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 History of hypertension. 6. History of diabetes mellitus. 7. History of previous left upper extremity arteriovenous fistula. 8. Mild Metabolic acidosis, Hypercalcemia Plan: IV abx as per Infectious disease service continue bicitra 30ml pO TID for acidosis, Cr normal today. s/p contrast exposure with LE angiogram pt will need Future Vascular intervetion next week as per - D/c mucomyst now, wcontinue IVF 1/2 NS at 75 cc/hr Cr normal Continue current immunosuppresion with prograf,cellcept, no prednisone due to hypercalcemia will continue to follow up Consultation Date/Type/Reason Admit Date/Time Nov 12, 2016 at 10:06 Initial Consult Date 11/12/16 Type of Consultation: NEPHROLOGY Referring Provider: KRISTIN HALL MD 24 HR Interval Summary Free Text/Dictation Na 146, HCo3 20, BP stable,afebrile Exam/Review of Systems Vital Signs Vitals Vital Signs Date Time Temp Pulse Resp B/P Pulse Ox O2 Delivery O2 Flow Rate FiO2 11/17/16 20:14 98.2 62 18 158/78 100 Intake and Output 11/16/16 11/16/16 11/17/16 15:00 23:00 07:00 Intake Total 475 ml 1070 ml 1300 ml Balance 475 ml 1070 ml 1300 ml Results Result Diagram: 11/13/16 0448 11/17/16 0446 Results 24 hrs Laboratory Tests Test 11/17/16 04:46 Sodium Level 146 H Potassium Level 3.8 Chloride Level 111 H Carbon Dioxide Level 20 L Anion Gap 19 H Blood Urea Nitrogen 4 L Creatinine 0.64 Glucose Level 86 Calcium Level 9.0 Magnesium Level 1.1 L Medications Medications Current Medications Ondansetron HCl (Zofran Inj) 4 mg Q6H PRN IV NAUSEA AND/OR VOMITING; Start at 16:00 Acetaminophen (Tylenol Tab) 650 mg Q6H PRN PO PAIN LEVEL 1-3 OR FEVER; Start at 16:00 Morphine Sulfate (morphine) 2 mg Q4H PRN IV SEVERE PAIN LEVEL 7-10 Last administered on 11/17/16 16:45; Admin Dose 2 MG; Start 11/12/16 at 16:00 Pantoprazole (Protonix Tab) 40 mg DAILY@06 PO Last administered on 11/17/16 05 :36; Admin Dose 40 MG; Start 11/13/16 at 06:00 Enoxaparin Sodium (Lovenox) 30 mg DAILY SC Last administered on 11/17/16 08:48 ; Admin Dose 30 MG; Start 11/13/16 at 09:00 Aspirin (Halfprin) 81 mg DAILY PO Last administered on 11/17/16 08:47; Admin Dose 81 MG; Start 11/13/16 at 09:00 Diltiazem HCl (Cardizem Cd) 180 mg DAILY PO Last administered on 11/17/16 08: 47; Admin Dose 180 MG; Start 11/13/16 at 09:00 Famotidine (Pepcid) 40 mg HS PO Last administered on 11/17/16 21:23; Admin Dose 40 MG; Start 11/12/16 at 21:00 Folic Acid (Folic Acid) 1 mg DAILY PO Last administered on 11/17/16 08:47; Admin Dose 1 MG; Start 11/13/16 at 09:00 Mycophenolate Mofetil (Cellcept) 1,000 mg BID PO Last administered on 21:23; Admin Dose 1,000 MG; Start 11/12/16 at 21:00 Tacrolimus (Prograf) 2 mg Q12 PO Last administered on 11/17/16 21:23; Admin Dose 2 MG; Start 11/12/16 at 21:00 Citric Acid/ Sodium Citrate (Bicitra) 30 ml TID PO Last administered on 21:22; Admin Dose 30 ML; Start 11/12/16 at 21:00 Acetylcysteine (Nac) 1,200 mg BID PO Last administered on 11/17/16 21:23; Admin Dose 1,200 MG; Start 11/12/16 at 21:00 Metoprolol Tartrate (Lopressor) 75 mg BID PO Last administered on 11/17/16 21: 24; Admin Dose 75 MG; Start 11/12/16 at 21:00 Gabapentin 100 mg 100 mg TID PO Last administered on 11/17/16 21:23; Admin Dose 100 MG; Start 11/12/16 at 21:00 Sodium Chloride 1,000 ml @ 75 mls/hr [id number] IV Last administered on 06:37; Admin Dose 75 MLS/HR; Start 11/13/16 at 13:30 Levofloxacin/ Dextrose (Levaquin 500mg/ D5W 100 ml (Pmx)) 100 ml @ 100 mls/hr Q24H IVPB Last administered on 11/17/16 21:22; Admin Dose 100 MLS/HR; Start at 20:30 Benazepril HCl 10 mg 10 mg BID PO Last administered on 11/15/16 10:34; Admin Dose 10 MG; Start 11/14/16 at 11:00; Status Future Hold Metronidazole 100 ml @ 100 mls/hr Q8 IVPB Last administered on 11/17/16 14:25 ; Admin Dose 100 MLS/HR; Start 11/14/16 at 16:00 Daptomycin/Sodium Chloride (Cubicin/NS) 100 ml @ 200 mls/hr Q24H IVPB Last administered on 11/17/16 16:34; Admin Dose 200 MLS/HR; Start 11/14/16 at 17:00 Zolpidem Tartrate (Ambien) 5 mg HS PRN PO INSOMNIA; Start 11/15/16 at 23:30 Loperamide HCl (Imodium Cap) 2 mg QID PRN PO DIARRHEA Last administered on 11/17 12:51; Admin Dose 2 MG; Start 11/16/16 at 16:00 RAMON KEMP MD Nov 17, 2016 22:12
[2016-11-18] MEDS: SOD CHLORIDE 0.45% 1,000 ML IV SCH ×2 (00:22→12:29)
[2016-11-18] MEDS: morphine 2 MG INJ IV PRN (00:22)
[2016-11-18 02:31] VITALS: BP 114/57; RESP 18
[2016-11-18] MEDS: metroNIDAZOLE 500 MG/NS (PMX) 100 ML IVPB SCH ×3 (06:11→22:00)
[2016-11-18] MEDS: PANTOPRAZOLE (EC) 40 MG TAB PO SCH (06:11)
[2016-11-18 07:50] VITALS: BP 132/70; RESP 18
[2016-11-18] MEDS: METOPROLOL 25 MG TAB PO SCH ×2 (09:02→20:34)
[2016-11-18] MEDS: TACROLIMUS 1 MG CAP PO SCH ×2 (09:02→20:31)
[2016-11-18] MEDS: GABAPENTIN 100 MG CAP PO SCH ×3 (09:02→20:31)
[2016-11-18] MEDS: ACETYLCYSTEINE 600 MG CAP PO SCH ×2 (09:03→20:31)
[2016-11-18] MEDS: CITRIC ACID/NA CITRATE 30 ML CUP PO SCH ×3 (09:03→20:31)
[2016-11-18] MEDS: MYCOPHENOLATE 250 MG CAP PO SCH ×2 (09:03→20:31)
[2016-11-18] MEDS: ASPIRIN (EC) 81 MG TAB PO SCH (09:03)
[2016-11-18] MEDS: FOLIC ACID 1 MG TAB PO SCH (09:03)
[2016-11-18] MEDS: DILTIAZEM (CD) 180 MG CAP PO SCH (09:03)
[2016-11-18] MEDS: ENOXAPARIN 30 MG/0.3 ML SYG SC SCH (12:29)
--- NOTE | 2016-11-18 12:41 | CONS ---
Date/Time of Note Date/Time of Note DATE: 11/18/16 TIME: 12:34 Assessment/Plan Assessment/Plan Chief Complaint/Hosp Course IMP: 1. Pre-op for LE vascular procedure. Nl EF and no ischemia by lexiscan 11/13 only scar. Ok to proceed with surgery from CV standpoint at moderate risk 2.HTN-uncontrolled 3,CAD 4.PAD with nonhealing LE wounds 5. -moderate by echo this admit Recc: -Tele -serial ecg's -Continue dilt/BB/ASA -local wound care -pending LE revascularization this week Problems: Consultation Date/Type/Reason Admit Date/Time Nov 12, 2016 at 10:06 Initial Consult Date 11/12/16 Type of Consultation: cardiology Reason for Consultation Pre-op Referring Provider: KRISTIN HALL MD Exam/Review of Systems Vital Signs Vitals Vital Signs Date Time Temp Pulse Resp B/P Pulse Ox O2 Delivery O2 Flow Rate FiO2 11/18/16 07:50 98.1 72 18 132/70 98 11/17/16 22:00 Room Air Intake and Output 11/17/16 11/17/16 11/18/16 15:00 23:00 07:00 Intake Total 1675 ml 875 ml Balance 1675 ml 875 ml Exam Review of Systems: CONSTITUTIONAL: No fevers, chills. PULMONARY: No sob CARDIOVASCULAR: No chest pain/palpitations GASTROINTESTINAL: No nausea/vomiting. GENITOURINARY: No hematuria/dysuria. MUSCULOSKELETAL: No myagias/arthalgias. PSYCHIATRIC: The patient denies depression. NEUROLOGIC: No weakness Constitutional: alert Psych: no complaints Head: normocephalic ENMT: mucosa pink and moist Neck: jvd, supple Respiratory: diminished breath sounds Cardiovascular: regular rate and rhythm Gastrointestinal: non-tender, soft Musculoskeletal: muscle tone Extremities: edema (none) Neurological: other (No mfocal [id number]) Results Result Diagram: 11/17/16 0446 Medications Medications Current Medications Ondansetron HCl (Zofran Inj) 4 mg Q6H PRN IV NAUSEA AND/OR VOMITING; Start at 16:00 Acetaminophen (Tylenol Tab) 650 mg Q6H PRN PO PAIN LEVEL 1-3 OR FEVER; Start at 16:00 Morphine Sulfate (morphine) 2 mg Q4H PRN IV SEVERE PAIN LEVEL 7-10 Last administered on 11/18/16 00:22; Admin Dose 2 MG; Start 11/12/16 at 16:00 Pantoprazole (Protonix Tab) 40 mg DAILY@06 PO Last administered on 11/18/16 06 :11; Admin Dose 40 MG; Start 11/13/16 at 06:00 Enoxaparin Sodium (Lovenox) 30 mg DAILY SC Last administered on 11/18/16 12:29 ; Admin Dose 30 MG; Start 11/13/16 at 09:00 Aspirin (Halfprin) 81 mg DAILY PO Last administered on 11/18/16 09:03; Admin Dose 81 MG; Start 11/13/16 at 09:00 Diltiazem HCl (Cardizem Cd) 180 mg DAILY PO Last administered on 11/18/16 09: 03; Admin Dose 180 MG; Start 11/13/16 at 09:00 Famotidine (Pepcid) 40 mg HS PO Last administered on 11/17/16 21:23; Admin Dose 40 MG; Start 11/12/16 at 21:00 Folic Acid (Folic Acid) 1 mg DAILY PO Last administered on 11/18/16 09:03; Admin Dose 1 MG; Start 11/13/16 at 09:00 Mycophenolate Mofetil (Cellcept) 1,000 mg BID PO Last administered on 09:03; Admin Dose 1,000 MG; Start 11/12/16 at 21:00 Tacrolimus (Prograf) 2 mg Q12 PO Last administered on 11/18/16 09:02; Admin Dose 2 MG; Start 11/12/16 at 21:00 Citric Acid/ Sodium Citrate (Bicitra) 30 ml TID PO Last administered on 12:28; Admin Dose 30 ML; Start 11/12/16 at 21:00 Acetylcysteine (Nac) 1,200 mg BID PO Last administered on 11/18/16 09:03; Admin Dose 1,200 MG; Start 11/12/16 at 21:00 Metoprolol Tartrate (Lopressor) 75 mg BID PO Last administered on 11/18/16 09: 02; Admin Dose 75 MG; Start 11/12/16 at 21:00 Gabapentin 100 mg 100 mg TID PO Last administered on 11/18/16 12:28; Admin Dose 100 MG; Start 11/12/16 at 21:00 Sodium Chloride 1,000 ml @ 75 mls/hr [id number] IV Last administered on 00:22; Admin Dose 75 MLS/HR; Start 11/13/16 at 13:30 Levofloxacin/ Dextrose (Levaquin 500mg/ D5W 100 ml (Pmx)) 100 ml @ 100 mls/hr Q24H IVPB Last administered on 11/17/16 21:22; Admin Dose 100 MLS/HR; Start at 20:30 Benazepril HCl 10 mg 10 mg BID PO Last administered on 11/15/16 10:34; Admin Dose 10 MG; Start 11/14/16 at 11:00; Status Future Hold Metronidazole 100 ml @ 100 mls/hr Q8 IVPB Last administered on 11/18/16 06:11 ; Admin Dose 100 MLS/HR; Start 11/14/16 at 16:00 Daptomycin/Sodium Chloride (Cubicin/NS) 100 ml @ 200 mls/hr Q24H IVPB Last administered on 11/17/16 16:34; Admin Dose 200 MLS/HR; Start 11/14/16 at 17:00 Zolpidem Tartrate (Ambien) 5 mg HS PRN PO INSOMNIA; Start 11/15/16 at 23:30 Loperamide HCl (Imodium Cap) 2 mg QID PRN PO DIARRHEA Last administered on 11/17 12:51; Admin Dose 2 MG; Start 11/16/16 at 16:00 TIMOTHY CORTES Nov 18, 2016 12:41
--- NOTE | 2016-11-18 13:13 | CONS ---
Date/Time of Note Date/Time of Note DATE: 11/18/16 TIME: 13:09 Assessment/Plan Assessment/Plan Additional Assessment/Plan 1. 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 h/o donor kidney transplant in 2009 at [facility], currently on immunosuppression with Prograf, CellCept 4. 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 History of hypertension. 6. History of diabetes mellitus. 7. History of previous left upper extremity arteriovenous fistula. 8. Mild Metabolic acidosis, Hypercalcemia Plan: IV abx as per Infectious disease service continue bicitra 30ml pO TID for acidosis, Cr normal yesterday. s/p contrast exposure with LE angiogram pt will need Future Vascular intervetion next week as per - D/c mucomyst now, will hold off IVF now, then if Intervention planned on friday then we will give IVF startign tomorrow friday until post procedure Continue current immunosuppresion with prograf,cellcept, no prednisone due to hypercalcemia will continue to follow up Consultation Date/Type/Reason Admit Date/Time Nov 12, 2016 at 10:06 Initial Consult Date 11/12/16 Type of Consultation: cardiology Referring Provider: KRISTIN HALL MD Exam/Review of Systems Vital Signs Vitals Vital Signs Date Time Temp Pulse Resp B/P Pulse Ox O2 Delivery O2 Flow Rate FiO2 11/18/16 07:50 98.1 72 18 132/70 98 11/17/16 22:00 Room Air Intake and Output 11/17/16 11/17/16 11/18/16 15:00 23:00 07:00 Intake Total 1675 ml 875 ml Balance 1675 ml 875 ml Exam Constitutional: alert, oriented Respiratory: clear to auscultation, diminished breath sounds, normal air movement Cardiovascular: nl pulses, regular rate and rhythm Gastrointestinal: non-tender, soft Musculoskeletal: other (gangrenous toes of both lower extremities. Her recent operative amputations are healing, but with poor healing noted. No new trauma is noted.) Extremities: edema, other (diminished pulses in both LE ) Neurological: [employer] DEVEL[employer] II-XII intact Results Result Diagram: 11/17/16 0446 Medications Medications Current Medications Ondansetron HCl (Zofran Inj) 4 mg Q6H PRN IV NAUSEA AND/OR VOMITING; Start at 16:00 Acetaminophen (Tylenol Tab) 650 mg Q6H PRN PO PAIN LEVEL 1-3 OR FEVER; Start at 16:00 Morphine Sulfate (morphine) 2 mg Q4H PRN IV SEVERE PAIN LEVEL 7-10 Last administered on 11/18/16 00:22; Admin Dose 2 MG; Start 11/12/16 at 16:00 Pantoprazole (Protonix Tab) 40 mg DAILY@06 PO Last administered on 11/18/16 06 :11; Admin Dose 40 MG; Start 11/13/16 at 06:00 Enoxaparin Sodium (Lovenox) 30 mg DAILY SC Last administered on 11/18/16 12:29 ; Admin Dose 30 MG; Start 11/13/16 at 09:00 Aspirin (Halfprin) 81 mg DAILY PO Last administered on 11/18/16 09:03; Admin Dose 81 MG; Start 11/13/16 at 09:00 Diltiazem HCl (Cardizem Cd) 180 mg DAILY PO Last administered on 11/18/16 09: 03; Admin Dose 180 MG; Start 11/13/16 at 09:00 Famotidine (Pepcid) 40 mg HS PO Last administered on 11/17/16 21:23; Admin Dose 40 MG; Start 11/12/16 at 21:00 Folic Acid (Folic Acid) 1 mg DAILY PO Last administered on 11/18/16 09:03; Admin Dose 1 MG; Start 11/13/16 at 09:00 Mycophenolate Mofetil (Cellcept) 1,000 mg BID PO Last administered on 09:03; Admin Dose 1,000 MG; Start 11/12/16 at 21:00 Tacrolimus (Prograf) 2 mg Q12 PO Last administered on 11/18/16 09:02; Admin Dose 2 MG; Start 11/12/16 at 21:00 Citric Acid/ Sodium Citrate (Bicitra) 30 ml TID PO Last administered on 12:28; Admin Dose 30 ML; Start 11/12/16 at 21:00 Acetylcysteine (Nac) 1,200 mg BID PO Last administered on 11/18/16 09:03; Admin Dose 1,200 MG; Start 11/12/16 at 21:00 Metoprolol Tartrate (Lopressor) 75 mg BID PO Last administered on 11/18/16 09: 02; Admin Dose 75 MG; Start 11/12/16 at 21:00 Gabapentin 100 mg 100 mg TID PO Last administered on 11/18/16 12:28; Admin Dose 100 MG; Start 11/12/16 at 21:00 Sodium Chloride 1,000 ml @ 75 mls/hr [id number] IV Last administered on 00:22; Admin Dose 75 MLS/HR; Start 11/13/16 at 13:30 Levofloxacin/ Dextrose (Levaquin 500mg/ D5W 100 ml (Pmx)) 100 ml @ 100 mls/hr Q24H IVPB Last administered on 11/17/16 21:22; Admin Dose 100 MLS/HR; Start at 20:30 Benazepril HCl 10 mg 10 mg BID PO Last administered on 11/15/16 10:34; Admin Dose 10 MG; Start 11/14/16 at 11:00; Status Future Hold Metronidazole 100 ml @ 100 mls/hr Q8 IVPB Last administered on 11/18/16 06:11 ; Admin Dose 100 MLS/HR; Start 11/14/16 at 16:00 Daptomycin/Sodium Chloride (Cubicin/NS) 100 ml @ 200 mls/hr Q24H IVPB Last administered on 11/17/16 16:34; Admin Dose 200 MLS/HR; Start 11/14/16 at 17:00 Zolpidem Tartrate (Ambien) 5 mg HS PRN PO INSOMNIA; Start 11/15/16 at 23:30 Loperamide HCl (Imodium Cap) 2 mg QID PRN PO DIARRHEA Last administered on 11/17 12:51; Admin Dose 2 MG; Start 11/16/16 at 16:00 RAMON KEMP MD Nov 18, 2016 13:12
--- NOTE | 2016-11-18 14:20 | PN ---
Date/Time of Note Date/Time of Note DATE: 11/18/16 TIME: 14:20 Assessment/Plan VTE Prophylaxis VTE Prophylaxis Intervention: LMWH Lines/Catheters IV Catheter Type (from [facility]): Peripheral IV Urinary Cath still in place: No Assessment/Plan Chief Complaint/Hosp Course 1.Significant peripheral vascular disease with gangrene of the lower extremities , L>R 09/26/16 Amputation of right fifth gangrenous toe + Amputation of left fourth gangrenous toe 06/13/16 Amputation of left fifth gangrenous toe, and surgical debridement of gangrenous left fourth toe and right fifth toe -Vascular on board and plan for staged vascular intervention -Continue aspirin, blood pressure management, statin and prophylactic anticoagulation. -Antibiotics per ID recommendation. 2.H/o kidney transplant: - on immunosuppression with Prograf, CellCept 3. Hypertension. -Continue antihypertensives 4. Chronic anemia. -H&H stable. Will monitor. 5. Peripheral neuropathy. -Continue pain medications DVT prophylaxis: Lovenox PUD prophylaxis: Protonix next Plan: We will follow-up with vascular recommendation regarding further vascular interventions. Continue current medical management. Case discussed with . Problems: Subjective 24 Hr Interval Summary Free Text/Dictation Patient remains afebrile. No acute overnight episodes. Diarrhea controlled now. Exam/Review of Systems Vital Signs Vitals Vital Signs Date Time Temp Pulse Resp B/P Pulse Ox O2 Delivery O2 Flow Rate FiO2 11/18/16 07:50 98.1 72 18 132/70 98 11/17/16 22:00 Room Air Intake and Output 11/17/16 11/17/16 11/18/16 14:59 22:59 06:59 Intake Total 1675 ml 875 ml Balance 1675 ml 875 ml Exam General: Well developed,adequately built, not in any acute distress . HEENT: Normocephalic, Atraumatic, No laceration or hematoma; Eyes: PEERL, Conjunctiva clear, Anicteric sclera Neck: Supple without any lymphadenopathy, nontender, no JVD, no carotid bruits, trachea midline, no thyromegaly Cardiac: S1, S2 auscultated, regular rhythm and rate, no mumurs or gallop Pulmonary: Normal respiratory effort. Chest clear to auscultation bilaterally, no adventitious breath sounds GI: Abdomen normal to inspection. Soft, non tender, non- distended, no masses, no rebound tenderness or guarding. Bowel sounds active on all four quadrants Genitourinary: Deferred Extremities:gangrenous toes. No cyanosis, clubbing, or edema. Pulses [2+] bilaterally. Full ROM on all four extremities. No focal weakness appreciated. Neurologic: Alert to person, place, time, and situation. Affect appropriate, intact sensation. Skin: Clean,dry, and intact. No ecchymosis, no rashes, or lesions Results Result Diagram: 11/17/16 0446 Medications Medications Current Medications Ondansetron HCl (Zofran Inj) 4 mg Q6H PRN IV NAUSEA AND/OR VOMITING; Start at 16:00 Acetaminophen (Tylenol Tab) 650 mg Q6H PRN PO PAIN LEVEL 1-3 OR FEVER; Start at 16:00 Morphine Sulfate (morphine) 2 mg Q4H PRN IV SEVERE PAIN LEVEL 7-10 Last administered on 11/18/16 00:22; Admin Dose 2 MG; Start 11/12/16 at 16:00 Pantoprazole (Protonix Tab) 40 mg DAILY@06 PO Last administered on 11/18/16 06 :11; Admin Dose 40 MG; Start 11/13/16 at 06:00 Enoxaparin Sodium (Lovenox) 30 mg DAILY SC Last administered on 11/18/16 12:29 ; Admin Dose 30 MG; Start 11/13/16 at 09:00 Aspirin (Halfprin) 81 mg DAILY PO Last administered on 11/18/16 09:03; Admin Dose 81 MG; Start 11/13/16 at 09:00 Diltiazem HCl (Cardizem Cd) 180 mg DAILY PO Last administered on 11/18/16 09: 03; Admin Dose 180 MG; Start 11/13/16 at 09:00 Famotidine (Pepcid) 40 mg HS PO Last administered on 11/17/16 21:23; Admin Dose 40 MG; Start 11/12/16 at 21:00 Folic Acid (Folic Acid) 1 mg DAILY PO Last administered on 11/18/16 09:03; Admin Dose 1 MG; Start 11/13/16 at 09:00 Mycophenolate Mofetil (Cellcept) 1,000 mg BID PO Last administered on 09:03; Admin Dose 1,000 MG; Start 11/12/16 at 21:00 Tacrolimus (Prograf) 2 mg Q12 PO Last administered on 11/18/16 09:02; Admin Dose 2 MG; Start 11/12/16 at 21:00 Citric Acid/ Sodium Citrate (Bicitra) 30 ml TID PO Last administered on 12:28; Admin Dose 30 ML; Start 11/12/16 at 21:00 Acetylcysteine (Nac) 1,200 mg BID PO Last administered on 11/18/16 09:03; Admin Dose 1,200 MG; Start 11/12/16 at 21:00 Metoprolol Tartrate (Lopressor) 75 mg BID PO Last administered on 11/18/16 09: 02; Admin Dose 75 MG; Start 11/12/16 at 21:00 Gabapentin 100 mg 100 mg TID PO Last administered on 11/18/16 12:28; Admin Dose 100 MG; Start 11/12/16 at 21:00 Levofloxacin/ Dextrose (Levaquin 500mg/ D5W 100 ml (Pmx)) 100 ml @ 100 mls/hr Q24H IVPB Last administered on 11/17/16 21:22; Admin Dose 100 MLS/HR; Start at 20:30 Benazepril HCl 10 mg 10 mg BID PO Last administered on 11/15/16 10:34; Admin Dose 10 MG; Start 11/14/16 at 11:00; Status Future Hold Metronidazole 100 ml @ 100 mls/hr Q8 IVPB Last administered on 11/18/16 14:18 ; Admin Dose 100 MLS/HR; Start 11/14/16 at 16:00 Daptomycin/Sodium Chloride (Cubicin/NS) 100 ml @ 200 mls/hr Q24H IVPB Last administered on 11/17/16 16:34; Admin Dose 200 MLS/HR; Start 11/14/16 at 17:00 Zolpidem Tartrate (Ambien) 5 mg HS PRN PO INSOMNIA; Start 11/15/16 at 23:30 Loperamide HCl (Imodium Cap) 2 mg QID PRN PO DIARRHEA Last administered on 11/17 12:51; Admin Dose 2 MG; Start 11/16/16 at 16:00 HELEN ANDREWS NP Nov 18, 2016 14:20
[2016-11-18 15:18] VITALS: BP 108/56; RESP 18
[2016-11-18] MEDS: DAPTOMYCIN IVPB SCH (17:36)
[2016-11-18] MEDS: SOD CHLORIDE 0.9% IVPB SCH (17:36)
--- NOTE | 2016-11-18 18:17 | CONS ---
Date/Time of Note Date/Time of Note DATE: 11/18/16 TIME: 18:13 Assessment/Plan Assessment/Plan Chief Complaint/Hosp Course ID PROGRESS NOTE CURRENT ABX=> Levaquin IV + Dapto + Flagyl IV + Vanco po #5 s/p Clindamycin-> DC"d due to severe diarrhea Vanco IV + Zosyn 11/12 24H INTERVAL SUMMARY * Patient remains afebrile. No acute overnight episodes. Diarrhea controlled now. * A/A/O =-> No fevers, diarrhea controlled on empiric ABX for C.Diff despite (- ) C.Diff toxin PHYSICAL EXAMINATION: GENERAL: VSS, NAD HEENT: Unremarkable -- NECK: Supple, trachea midline. CHEST: Rise symmetrical, without dyspnea on observation HEART: Pulse RRR ABDOMEN: Soft, benign EXTREMITIES: Warm -- gangrenous toes ID ASSESSMENT 61 yo F admit with: 1. 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 Severe peripheral vascular disease status post angiogram with angioplasty 3. Hx of donor kidney transplant 2009, on Prograf, CellCept and prednisone. 4. 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 h/o donor kidney transplant in 2009 at [facility], currently on immunosuppression with Prograf, CellCept 6. HTN -> Poorly controlled 7. DM w/complications of DM polyneuropathies: renal, peripheral 8. History of previous left upper extremity arteriovenous fistula. 9. (+)Diarrhea => ABX associated suspect C.Diff => C.Diff toxin (-) after initiation of ABX 10. Hx of Thrombocytopenia FEB admission on Zyvox 11. Hx of CAD, 11/13 Lexiscan MIBI: No reversibility, no new WMA, EF 70% at stress (- )MRSA Nares screening last admit 10/31/15 INVASIVES: PIV, ABX ALLERGY: KNDA CURRENT ABX: CURRENT ABX=> Levaquin IV + Dapto + Flagyl IV + Vanco po #5 s/p Clindamycin-> DC"d 2/2 severe diarrhea Vanco IV + Zosyn 11/12 ID RECOMMENDATIONS 1. Pt is high risk immunocompromised host 2/2 DM + immunosuppressive renal Tx status 2. Hx of renal insufficiency with Vanco IV in the past, hx of thrombocytopenia w /Zyvox in the past * Dapto 6mg/kg pharmacy may adjust per renal => baseline CPK, ESR,CRP ordered for today, HOLD STATIN while on DAPTO * Flagyl 500mg IVPB daily/ Vanco 125mg Liq PO Q6H=> continue for now * Continue Levaquin 3. Appreciate APC/Vascular note: (+)critical limb ischemia of both legs and limb salvage may be challenging for her and possibility of a major amputation in there. * The plan is for staged revascularization procedures -> plan LLE first followed by RLE . . Problems: Consultation Date/Type/Reason Admit Date/Time Nov 12, 2016 at 10:06 Initial Consult Date 11/12/16 Type of Consultation: ID Referring Provider: KRISTIN HALL MD Exam/Review of Systems Vital Signs Vitals Vital Signs Date Time Temp Pulse Resp B/P Pulse Ox O2 Delivery O2 Flow Rate FiO2 11/18/16 15:18 97.8 58 18 108/56 96 11/17/16 22:00 Room Air Intake and Output 11/17/16 11/17/16 11/18/16 15:00 23:00 07:00 Intake Total 1675 ml 875 ml Balance 1675 ml 875 ml Results Result Diagram: 11/17/16 0446 Medications Medications Current Medications Ondansetron HCl (Zofran Inj) 4 mg Q6H PRN IV NAUSEA AND/OR VOMITING; Start at 16:00 Acetaminophen (Tylenol Tab) 650 mg Q6H PRN PO PAIN LEVEL 1-3 OR FEVER; Start at 16:00 Pantoprazole (Protonix Tab) 40 mg DAILY@06 PO Last administered on 11/18/16 06 :11; Admin Dose 40 MG; Start 11/13/16 at 06:00 Enoxaparin Sodium (Lovenox) 30 mg DAILY SC Last administered on 11/18/16 12:29 ; Admin Dose 30 MG; Start 11/13/16 at 09:00 Aspirin (Halfprin) 81 mg DAILY PO Last administered on 11/18/16 09:03; Admin Dose 81 MG; Start 11/13/16 at 09:00 Diltiazem HCl (Cardizem Cd) 180 mg DAILY PO Last administered on 11/18/16 09: 03; Admin Dose 180 MG; Start 11/13/16 at 09:00 Famotidine (Pepcid) 40 mg HS PO Last administered on 11/17/16 21:23; Admin Dose 40 MG; Start 11/12/16 at 21:00 Folic Acid (Folic Acid) 1 mg DAILY PO Last administered on 11/18/16 09:03; Admin Dose 1 MG; Start 11/13/16 at 09:00 Mycophenolate Mofetil (Cellcept) 1,000 mg BID PO Last administered on 09:03; Admin Dose 1,000 MG; Start 11/12/16 at 21:00 Tacrolimus (Prograf) 2 mg Q12 PO Last administered on 11/18/16 09:02; Admin Dose 2 MG; Start 11/12/16 at 21:00 Citric Acid/ Sodium Citrate (Bicitra) 30 ml TID PO Last administered on 12:28; Admin Dose 30 ML; Start 11/12/16 at 21:00 Acetylcysteine (Nac) 1,200 mg BID PO Last administered on 11/18/16 09:03; Admin Dose 1,200 MG; Start 11/12/16 at 21:00 Metoprolol Tartrate (Lopressor) 75 mg BID PO Last administered on 11/18/16 09: 02; Admin Dose 75 MG; Start 11/12/16 at 21:00 Gabapentin 100 mg 100 mg TID PO Last administered on 11/18/16 12:28; Admin Dose 100 MG; Start 11/12/16 at 21:00 Levofloxacin/ Dextrose (Levaquin 500mg/ D5W 100 ml (Pmx)) 100 ml @ 100 mls/hr Q24H IVPB Last administered on 11/17/16 21:22; Admin Dose 100 MLS/HR; Start at 20:30 Benazepril HCl 10 mg 10 mg BID PO Last administered on 11/15/16 10:34; Admin Dose 10 MG; Start 11/14/16 at 11:00; Status Future Hold Metronidazole 100 ml @ 100 mls/hr Q8 IVPB Last administered on 11/18/16 14:18 ; Admin Dose 100 MLS/HR; Start 11/14/16 at 16:00 Daptomycin/Sodium Chloride (Cubicin/NS) 100 ml @ 200 mls/hr Q24H IVPB Last administered on 11/18/16 17:36; Admin Dose 200 MLS/HR; Start 11/14/16 at 17:00 Zolpidem Tartrate (Ambien) 5 mg HS PRN PO INSOMNIA; Start 11/15/16 at 23:30 Loperamide HCl (Imodium Cap) 2 mg QID PRN PO DIARRHEA Last administered on 11/17 12:51; Admin Dose 2 MG; Start 11/16/16 at 16:00 Morphine Sulfate (morphine) 2 mg Q4H PRN IV SEVERE PAIN LEVEL 7-10; Start 11/18 at 14:30 HAMZAH GARZA NP Nov 18, 2016 18:17
[2016-11-18] MEDS: LEVOFLOXACIN 500MG/D5W (PMX) 100 ML IVPB SCH (20:22)
[2016-11-18] MEDS: FAMOTIDINE 20 MG TAB PO SCH (20:32)
[2016-11-18 21:01] VITALS: BP 125/60; RESP 18
[2016-11-19] MEDS: morphine 4 MG/ML VIAL IV PRN ×3 (00:43→21:05)
[2016-11-19 02:47] VITALS: BP 117/56; RESP 18
[2016-11-19 05:33] LABS: BASOPHILS % 0.2 % (0.0-2.0); EOSINOPHILS # 0.1 10^3/ul (0.0-0.5); EOSINOPHILS % 0.9 % (0.0-7.0); HEMOGLOBIN 9.2 g/dl (12.0-16.0); LYMPHOCYTES # 0.8 10^3/ul (0.8-2.9); LYMPHOCYTES % 15.4 % (15.0-51.0); MEAN CORPUSCULAR HEMOGLOBIN 27.1 pg (29.0-33.0); MEAN CORPUSCULAR HGB CONC 31.7 g/dl (32.0-37.0); MEAN CORPUSCULAR VOLUME 85.5 fl (82.0-101.0); MEAN PLATELET VOLUME 12.6 fl (7.4-10.4); MONOCYTE # 0.8 10^3/ul (0.3-0.9); NEUTROPHIL # 3.6 10^3/ul (1.6-7.5); NEUTROPHILS % 68.3 % (39.0-77.0); PLATELET COUNT 190 10^3/UL (140-415); RED BLOOD COUNT 3.39 10^6/ul (4.20-5.40); RED CELL DISTRIBUTION WIDTH 14.7 % (11.5-14.5); WHITE BLOOD COUNT 5.3 10^3/ul (4.8-10.8)
[2016-11-19 05:48] LABS: INR 1.55; PARTIAL THROMBOPLASTIN TIME 31.8 Sec (25.0-35.0); PROTIME 18.7 Sec (12.2-14.2); PT RATIO 1.5
[2016-11-19 05:54] LABS: CALCIUM 8.8 mg/dl (8.4-10.2); CREATININE 0.71 mg/dl (0.44-1.00); POTASSIUM 3.2 mmol/L (3.5-5.1)
[2016-11-19] MEDS: metroNIDAZOLE 500 MG/NS (PMX) 100 ML IVPB SCH ×3 (05:59→21:57)
[2016-11-19] MEDS: PANTOPRAZOLE (EC) 40 MG TAB PO SCH (05:59)
[2016-11-19 07:20] VITALS: BP 130/64; RESP 18
[2016-11-19] MEDS: SOD CHLORIDE 0.45% 1,000 ML IV SCH ×2 (07:35→20:20)
[2016-11-19] MEDS: MYCOPHENOLATE 250 MG CAP PO SCH ×2 (08:44→21:41)
[2016-11-19] MEDS: CITRIC ACID/NA CITRATE 30 ML CUP PO SCH ×3 (08:44→20:39)
[2016-11-19] MEDS: ASPIRIN (EC) 81 MG TAB PO SCH (08:47)
[2016-11-19] MEDS: FOLIC ACID 1 MG TAB PO SCH (08:47)
[2016-11-19] MEDS: DILTIAZEM (CD) 180 MG CAP PO SCH (08:48)
[2016-11-19] MEDS: GABAPENTIN 100 MG CAP PO SCH ×3 (08:48→20:40)
[2016-11-19] MEDS: METOPROLOL 25 MG TAB PO SCH ×2 (08:48→20:41)
[2016-11-19] MEDS: ENOXAPARIN 30 MG/0.3 ML SYG SC SCH (08:51)
[2016-11-19] MEDS: ACETYLCYSTEINE 600 MG CAP PO SCH ×2 (08:55→20:55)
[2016-11-19] MEDS: TACROLIMUS 1 MG CAP PO SCH ×2 (08:56→20:39)
--- NOTE | 2016-11-19 09:33 | CONS ---
Date/Time of Note Date/Time of Note DATE: 11/19/16 TIME: 09:33 Assessment/Plan Assessment/Plan Additional Assessment/Plan 1. 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 h/o donor kidney transplant in 2009 at [facility], currently on immunosuppression with Prograf, CellCept 4. 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 History of hypertension. 6. History of diabetes mellitus. 7. History of previous left upper extremity arteriovenous fistula. 8. Mild Metabolic acidosis, Hypercalcemia Plan: IV abx as per Infectious disease service continue bicitra 30ml pO TID for acidosis, Cr normal today. s/p contrast exposure with LE angiogram pt will need Future Vascular intervetion next week as per Continue current immunosuppresion with prograf,cellcept, no prednisone due to hypercalcemia will continue to follow up Consultation Date/Type/Reason Admit Date/Time Nov 12, 2016 at 10:06 Initial Consult Date 11/12/16 Type of Consultation: NEPHROLOGY Referring Provider: KRISTIN HALL MD 24 HR Interval Summary Free Text/Dictation K 3.2, mag 1.3, stable, c/o leg pain Exam/Review of Systems Vital Signs Vitals Vital Signs Date Time Temp Pulse Resp B/P Pulse Ox O2 Delivery O2 Flow Rate FiO2 11/19/16 07:20 98.2 62 18 130/64 100 11/17/16 22:00 Room Air Intake and Output 11/18/16 11/18/16 11/19/16 15:00 23:00 07:00 Intake Total 850 ml 1400 ml 580 ml Balance 850 ml 1400 ml 580 ml Results Result Diagram: 11/19/16 0447 11/19/16 0447 Results 24 hrs Laboratory Tests Test 11/19/16 04:47 White Blood Count 5.3 Red Blood Count 3.39 L Hemoglobin 9.2 L Hematocrit 29.0 L Mean Corpuscular Volume 85.5 Mean Corpuscular Hemoglobin 27.1 L Mean Corpuscular Hemoglobin Concent 31.7 L Red Cell Distribution Width 14.7 H Platelet Count 190 Mean Platelet Volume 12.6 H Neutrophils % 68.3 Lymphocytes % 15.4 Monocytes % 15.0 H Eosinophils % 0.9 Basophils % 0.2 Nucleated Red Blood Cells % 0.0 Neutrophils # 3.6 Lymphocytes # 0.8 Monocytes # 0.8 Eosinophils # 0.1 Basophils # 0.0 Nucleated Red Blood Cells # 0.0 Prothrombin Time 18.7 H Prothrombin Time Ratio 1.5 INR International Normalized Ratio 1.55 Activated Partial Thromboplast Time 31.8 Sodium Level 144 Potassium Level 3.2 L Chloride Level 105 Carbon Dioxide Level 26 Anion Gap 16 Blood Urea Nitrogen 12 Creatinine 0.71 Glucose Level 94 Hemoglobin A1c 5.4 Calcium Level 8.8 Magnesium Level 1.3 L Medications Medications Current Medications Ondansetron HCl (Zofran Inj) 4 mg Q6H PRN IV NAUSEA AND/OR VOMITING; Start at 16:00 Acetaminophen (Tylenol Tab) 650 mg Q6H PRN PO PAIN LEVEL 1-3 OR FEVER; Start at 16:00 Pantoprazole (Protonix Tab) 40 mg DAILY@06 PO Last administered on 11/19/16 05: 59; Admin Dose 40 MG; Start 11/13/16 at 06:00 Enoxaparin Sodium (Lovenox) 30 mg DAILY SC Last administered on 11/19/16 08:51 ; Admin Dose 30 MG; Start 11/13/16 at 09:00 Aspirin (Halfprin) 81 mg DAILY PO Last administered on 11/19/16 08:47; Admin Dose 81 MG; Start 11/13/16 at 09:00 Diltiazem HCl (Cardizem Cd) 180 mg DAILY PO Last administered on 11/19/16 08:48 ; Admin Dose 180 MG; Start 11/13/16 at 09:00 Famotidine (Pepcid) 40 mg HS PO Last administered on 11/18/16 20:32; Admin Dose 40 MG; Start 11/12/16 at 21:00 Folic Acid (Folic Acid) 1 mg DAILY PO Last administered on 11/19/16 08:47; Admin Dose 1 MG; Start 11/13/16 at 09:00 Mycophenolate Mofetil (Cellcept) 1,000 mg BID PO Last administered on 11/19/16 08:44; Admin Dose 1,000 MG; Start 11/12/16 at 21:00 Tacrolimus (Prograf) 2 mg Q12 PO Last administered on 11/19/16 08:56; Admin Dose 2 MG; Start 11/12/16 at 21:00 Citric Acid/ Sodium Citrate (Bicitra) 30 ml TID PO Last administered on 08:44; Admin Dose 30 ML; Start 11/12/16 at 21:00 Acetylcysteine (Nac) 1,200 mg BID PO Last administered on 11/19/16 08:55; Admin Dose 1,200 MG; Start 11/12/16 at 21:00 Metoprolol Tartrate (Lopressor) 75 mg BID PO Last administered on 11/19/16 08: 48; Admin Dose 75 MG; Start 11/12/16 at 21:00 Gabapentin 100 mg 100 mg TID PO Last administered on 11/19/16 08:48; Admin Dose 100 MG; Start 11/12/16 at 21:00 Levofloxacin/ Dextrose (Levaquin 500mg/ D5W 100 ml (Pmx)) 100 ml @ 100 mls/hr Q24H IVPB Last administered on 11/18/16 20:22; Admin Dose 100 MLS/HR; Start at 20:30 Benazepril HCl 10 mg 10 mg BID PO Last administered on 11/15/16 10:34; Admin Dose 10 MG; Start 11/14/16 at 11:00; Status Future Hold Metronidazole 100 ml @ 100 mls/hr Q8 IVPB Last administered on 11/19/16 05:59 ; Admin Dose 100 MLS/HR; Start 11/14/16 at 16:00 Daptomycin/Sodium Chloride (Cubicin/NS) 100 ml @ 200 mls/hr Q24H IVPB Last administered on 11/18/16 17:36; Admin Dose 200 MLS/HR; Start 11/14/16 at 17:00 Zolpidem Tartrate (Ambien) 5 mg HS PRN PO INSOMNIA; Start 11/15/16 at 23:30 Loperamide HCl (Imodium Cap) 2 mg QID PRN PO DIARRHEA Last administered on 11/17 12:51; Admin Dose 2 MG; Start 11/16/16 at 16:00 Morphine Sulfate 2 mg 2 mg Q4H PRN IV SEVERE PAIN LEVEL 7-10 Last administered on 11/19/16 00:43; Admin Dose 2 MG; Start 11/18/16 at 14:30 Sodium Chloride 1,000 ml @ 75 mls/hr [id number] IV Last administered on 11/19/16t 07:35; Admin Dose 75 MLS/HR; Start 11/19/16 at 07:00 Magnesium Sulfate/ Sodium Chloride (Magnesium Sulfate/NS) 106 ml @ 35.333 mls/ hr ONCE ONCE IVPB ; Start 11/19/16 at 10:00; Stop 11/19/16 at 12:59; Status UNV RAMON KEMP MD Nov 19, 2016 09:33
[2016-11-19] MEDS ORDERED: MAGNESIUM SULFATE 3 GM in SOD CHLORIDE 0.9% 100 ML IVPB ONE ×2 (11:00→15:00)
[2016-11-19] MEDS ORDERED: POTASSIUM CHLORIDE 20 MEQ in SOD CHLORIDE 0.9% 100 ML IVPB ONE (11:00)
[2016-11-19 14:02] VITALS: BP 102/50; RESP 16
--- NOTE | 2016-11-19 14:55 | PN ---
Date/Time of Note Date/Time of Note DATE: 11/19/16 TIME: 14:52 Assessment/Plan VTE Prophylaxis VTE Prophylaxis Intervention: LMWH Lines/Catheters IV Catheter Type (from [facility] Peripheral IV Urinary Cath still in place: No Assessment/Plan Chief Complaint/Hosp Course 1.Significant peripheral vascular disease with gangrene of the lower extremities , L>R 09/26/16 Amputation of right fifth gangrenous toe + Amputation of left fourth gangrenous toe 06/13/16 Amputation of left fifth gangrenous toe, and surgical debridement of gangrenous left fourth toe and right fifth toe -Vascular on board and plan for staged vascular intervention. -Continue aspirin, blood pressure management, statin and prophylactic anticoagulation. -Antibiotics per ID recommendation. 2.H/o kidney transplant: - on immunosuppression with Prograf, CellCept 3. Hypertension. -Continue antihypertensives 4. Chronic anemia. -H&H stable. Will monitor. 5. Peripheral neuropathy. -Continue pain medications 6.Hypokalemia with Hypomagnesemia. Status post repletion.Will monitor. DVT prophylaxis: Lovenox PUD prophylaxis: Protonix Plan: We will follow-up with vascular recommendation regarding further vascular interventions. Continue current medical management. Given patient's medical condition, patient is at intermediate risk for any untoward medical events for surgery. However, benefit likely outweigh risks and recommended to have surgical intervention. Case discussed with . Problems: Subjective 24 Hr Interval Summary Free Text/Dictation No acute overnight episodes. Exam/Review of Systems Vital Signs Vitals Vital Signs Date Time Temp Pulse Resp B/P Pulse Ox O2 Delivery O2 Flow Rate FiO2 11/19/16 14:02 98.7 59 16 102/50 98 11/17/16 22:00 Room Air Intake and Output 11/18/16 11/18/16 11/19/16 15:00 23:00 07:00 Intake Total 850 ml 1400 ml 580 ml Balance 850 ml 1400 ml 580 ml Exam General: Well developed,adequately built, not in any acute distress . HEENT: Normocephalic, Atraumatic, No laceration or hematoma; Eyes: PEERL, Conjunctiva clear, Anicteric sclera Neck: Supple without any lymphadenopathy, nontender, no JVD, no carotid bruits, trachea midline, no thyromegaly Cardiac: S1, S2 auscultated, regular rhythm and rate, no mumurs or gallop Pulmonary: Normal respiratory effort. Chest clear to auscultation bilaterally, no adventitious breath sounds GI: Abdomen normal to inspection. Soft, non tender, non- distended, no masses, no rebound tenderness or guarding. Bowel sounds active on all four quadrants Genitourinary: Deferred Extremities: Gangrenous toes. No cyanosis, clubbing, or edema. Pulses [2+] bilaterally. Full ROM on all four extremities. No focal weakness appreciated. Neurologic: Alert to person, place, time, and situation. Affect appropriate, intact sensation. Skin: Clean,dry, and intact. No ecchymosis, no rashes, or lesions Results Result Diagram: 11/19/1644611/19/16446 Results 24 hrs Laboratory Tests Test 11/19/16 04:47 White Blood Count 5.3 Red Blood Count 3.39 L Hemoglobin 9.2 L Hematocrit 29.0 L Mean Corpuscular Volume 85.5 Mean Corpuscular Hemoglobin 27.1 L Mean Corpuscular Hemoglobin Concent 31.7 L Red Cell Distribution Width 14.7 H Platelet Count 190 Mean Platelet Volume 12.6 H Neutrophils % 68.3 Lymphocytes % 15.4 Monocytes % 15.0 H Eosinophils % 0.9 Basophils % 0.2 Nucleated Red Blood Cells % 0.0 Neutrophils # 3.6 Lymphocytes # 0.8 Monocytes # 0.8 Eosinophils # 0.1 Basophils # 0.0 Nucleated Red Blood Cells # 0.0 Prothrombin Time 18.7 H Prothrombin Time Ratio 1.5 INR International Normalized Ratio 1.55 Activated Partial Thromboplast Time 31.8 Sodium Level 144 Potassium Level 3.2 L Chloride Level 105 Carbon Dioxide Level 26 Anion Gap 16 Blood Urea Nitrogen 12 Creatinine 0.71 Glucose Level 94 Hemoglobin A1c 5.4 Calcium Level 8.8 Magnesium Level 1.3 L Medications Medications Current Medications Ondansetron HCl (Zofran Inj) 4 mg Q6H PRN IV NAUSEA AND/OR VOMITING; Start at 16:00 Acetaminophen (Tylenol Tab) 650 mg Q6H PRN PO PAIN LEVEL 1-3 OR FEVER; Start at 16:00 Pantoprazole (Protonix Tab) 40 mg DAILY@06 PO Last administered on 11/19/16t 05: 59; Admin Dose 40 MG; Start 11/13/16 at 06:00 Enoxaparin Sodium (Lovenox) 30 mg DAILY SC Last administered on 11/19/16 08:51 ; Admin Dose 30 MG; Start 11/13/16 at 09:00 Aspirin (Halfprin) 81 mg DAILY PO Last administered on 11/19/16 08:47; Admin Dose 81 MG; Start 11/13/16 at 09:00 Diltiazem HCl (Cardizem Cd) 180 mg DAILY PO Last administered on 11/19/16 08:48 ; Admin Dose 180 MG; Start 11/13/16 at 09:00 Famotidine (Pepcid) 40 mg HS PO Last administered on 11/18/16 20:32; Admin Dose 40 MG; Start 11/12/16 at 21:00 Folic Acid (Folic Acid) 1 mg DAILY PO Last administered on 11/19/16 08:47; Admin Dose 1 MG; Start 11/13/16 at 09:00 Mycophenolate Mofetil (Cellcept) 1,000 mg BID PO Last administered on 11/19/16 08:44; Admin Dose 1,000 MG; Start 11/12/16 at 21:00 Tacrolimus (Prograf) 2 mg Q12 PO Last administered on 11/19/16 08:56; Admin Dose 2 MG; Start 11/12/16 at 21:00 Citric Acid/ Sodium Citrate (Bicitra) 30 ml TID PO Last administered on 13:26; Admin Dose 30 ML; Start 11/12/16 at 21:00 Acetylcysteine (Nac) 1,200 mg BID PO Last administered on 11/19/16 08:55; Admin Dose 1,200 MG; Start 11/12/16 at 21:00 Metoprolol Tartrate (Lopressor) 75 mg BID PO Last administered on 11/19/16 08: 48; Admin Dose 75 MG; Start 11/12/16 at 21:00 Gabapentin 100 mg 100 mg TID PO Last administered on 11/19/16 13:26; Admin Dose 100 MG; Start 11/12/16 at 21:00 Levofloxacin/ Dextrose (Levaquin 500mg/ D5W 100 ml (Pmx)) 100 ml @ 100 mls/hr Q24H IVPB Last administered on 11/18/16 20:22; Admin Dose 100 MLS/HR; Start at 20:30 Benazepril HCl 10 mg 10 mg BID PO Last administered on 11/15/16 10:34; Admin Dose 10 MG; Start 11/14/16 at 11:00; Status Future Hold Metronidazole 100 ml @ 100 mls/hr Q8 IVPB Last administered on 11/19/16 05:59 ; Admin Dose 100 MLS/HR; Start 11/14/16 at 16:00 Daptomycin/Sodium Chloride (Cubicin/NS) 100 ml @ 200 mls/hr Q24H IVPB Last administered on 11/18/16 17:36; Admin Dose 200 MLS/HR; Start 11/14/16 at 17:00 Zolpidem Tartrate (Ambien) 5 mg HS PRN PO INSOMNIA; Start 11/15/16 at 23:30 Loperamide HCl (Imodium Cap) 2 mg QID PRN PO DIARRHEA Last administered on 11/17 12:51; Admin Dose 2 MG; Start 11/16/16 at 16:00 Morphine Sulfate 2 mg 2 mg Q4H PRN IV SEVERE PAIN LEVEL 7-10 Last administered on 11/19/16 09:30; Admin Dose 2 MG; Start 11/18/16 at 14:30 Sodium Chloride (1/2 NS) 1,000 ml @ 75 mls/hr [id number] IV Last administered on 11/19/16 07:35; Admin Dose 75 MLS/HR; Start 11/19/16 at 07:00 HELEN ANDREWS NP Nov 19, 2016 14:55
[2016-11-19] MEDS: DAPTOMYCIN IVPB SCH (16:40)
[2016-11-19] MEDS: SOD CHLORIDE 0.9% IVPB SCH (16:40)
--- NOTE | 2016-11-19 16:42 | CONS ---
Date/Time of Note Date/Time of Note DATE: 11/19/16 TIME: 16:41 Assessment/Plan Assessment/Plan Chief Complaint/Hosp Course ID PROGRESS NOTE CURRENT ABX=> Levaquin IV + Dapto + Flagyl IV + Vanco po #6 s/p Clindamycin-> DC"d due to severe diarrhea Vanco IV + Zosyn 11/12 24H INTERVAL SUMMARY * Still having loose BMs, less frequent * A/A/O =-> No fevers, diarrhea controlled on empiric ABX for C.Diff despite (- ) C.Diff toxin PHYSICAL EXAMINATION: GENERAL: VSS, NAD HEENT: Unremarkable -- NECK: Supple, trachea midline. CHEST: Rise symmetrical, without dyspnea on observation HEART: Pulse RRR ABDOMEN: Soft, benign EXTREMITIES: Warm -- gangrenous toes ID ASSESSMENT 61 yo F admit with: 1. 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 Severe peripheral vascular disease status post angiogram with angioplasty 3. Hx of donor kidney transplant 2009, on Prograf, CellCept and prednisone. 4. 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 h/o donor kidney transplant in 2009 at [facility], currently on immunosuppression with Prograf, CellCept 6. HTN -> Poorly controlled 7. DM w/complications of DM polyneuropathies: renal, peripheral 8. History of previous left upper extremity arteriovenous fistula. 9. (+)Diarrhea => ABX associated suspect C.Diff => C.Diff toxin (-) after initiation of ABX 10. Hx of Thrombocytopenia FEB admission on Zyvox 11. Hx of CAD, 11/13 Lexiscan MIBI: No reversibility, no new WMA, EF 70% at stress (- )MRSA Nares screening last admit 10/31/15 INVASIVES: PIV, ABX ALLERGY: KNDA CURRENT ABX: CURRENT ABX=> Levaquin IV + Dapto + Flagyl IV + Vanco po #6 s/p Clindamycin-> DC"d 2/2 severe diarrhea Vanco IV + Zosyn 11/12 ID RECOMMENDATIONS=> Continue current plan: 1. Pt is high risk immunocompromised host 2/2 DM + immunosuppressive renal Tx status 2. Hx of renal insufficiency with Vanco IV in the past, hx of thrombocytopenia w /Zyvox in the past * Dapto 6mg/kg pharmacy may adjust per renal => baseline CPK, ESR,CRP ordered for today, HOLD STATIN while on DAPTO * Flagyl 500mg IVPB daily/ Vanco 125mg Liq PO Q6H=> continue for now * Continue Levaquin 3. Appreciate APC/Vascular note: (+)critical limb ischemia of both legs and limb salvage may be challenging for her and possibility of a major amputation in there. * The plan is for staged revascularization procedures -> plan LLE first followed by RLE . . Problems: Consultation Date/Type/Reason Admit Date/Time Nov 12, 2016 at 10:06 Initial Consult Date 11/12/16 Type of Consultation: ID Referring Provider: KRISTIN HALL MD Exam/Review of Systems Vital Signs Vitals Vital Signs Date Time Temp Pulse Resp B/P Pulse Ox O2 Delivery O2 Flow Rate FiO2 11/19/16 14:02 98.7 59 16 102/50 98 11/17/16 22:00 Room Air Intake and Output 11/18/16 11/18/16 11/19/16 15:00 23:00 07:00 Intake Total 850 ml 1400 ml 580 ml Balance 850 ml 1400 ml 580 ml Results Result Diagram: 11/19/16 0447 11/19/16 0447 Results 24 hrs Laboratory Tests Test 11/19/16 04:47 White Blood Count 5.3 Red Blood Count 3.39 L Hemoglobin 9.2 L Hematocrit 29.0 L Mean Corpuscular Volume 85.5 Mean Corpuscular Hemoglobin 27.1 L Mean Corpuscular Hemoglobin Concent 31.7 L Red Cell Distribution Width 14.7 H Platelet Count 190 Mean Platelet Volume 12.6 H Neutrophils % 68.3 Lymphocytes % 15.4 Monocytes % 15.0 H Eosinophils % 0.9 Basophils % 0.2 Nucleated Red Blood Cells % 0.0 Neutrophils # 3.6 Lymphocytes # 0.8 Monocytes # 0.8 Eosinophils # 0.1 Basophils # 0.0 Nucleated Red Blood Cells # 0.0 Prothrombin Time 18.7 H Prothrombin Time Ratio 1.5 INR International Normalized Ratio 1.55 Activated Partial Thromboplast Time 31.8 Sodium Level 144 Potassium Level 3.2 L Chloride Level 105 Carbon Dioxide Level 26 Anion Gap 16 Blood Urea Nitrogen 12 Creatinine 0.71 Glucose Level 94 Hemoglobin A1c 5.4 Calcium Level 8.8 Magnesium Level 1.3 L Medications Medications Current Medications Ondansetron HCl (Zofran Inj) 4 mg Q6H PRN IV NAUSEA AND/OR VOMITING; Start at 16:00 Acetaminophen (Tylenol Tab) 650 mg Q6H PRN PO PAIN LEVEL 1-3 OR FEVER; Start at 16:00 Pantoprazole (Protonix Tab) 40 mg DAILY@06 PO Last administered on 11/19/16 05: 59; Admin Dose 40 MG; Start 11/13/16 at 06:00 Enoxaparin Sodium (Lovenox) 30 mg DAILY SC Last administered on 11/19/16 08:51 ; Admin Dose 30 MG; Start 11/13/16 at 09:00 Aspirin (Halfprin) 81 mg DAILY PO Last administered on 11/19/16 08:47; Admin Dose 81 MG; Start 11/13/16 at 09:00 Diltiazem HCl (Cardizem Cd) 180 mg DAILY PO Last administered on 11/19/16 08:48 ; Admin Dose 180 MG; Start 11/13/16 at 09:00 Famotidine (Pepcid) 40 mg HS PO Last administered on 11/18/16 20:32; Admin Dose 40 MG; Start 11/12/16 at 21:00 Folic Acid (Folic Acid) 1 mg DAILY PO Last administered on 11/19/16 08:47; Admin Dose 1 MG; Start 11/13/16 at 09:00 Mycophenolate Mofetil (Cellcept) 1,000 mg BID PO Last administered on 11/19/16 08:44; Admin Dose 1,000 MG; Start 11/12/16 at 21:00 Tacrolimus (Prograf) 2 mg Q12 PO Last administered on 11/19/16 08:56; Admin Dose 2 MG; Start 11/12/16 at 21:00 Citric Acid/ Sodium Citrate (Bicitra) 30 ml TID PO Last administered on 13:26; Admin Dose 30 ML; Start 11/12/16 at 21:00 Acetylcysteine (Nac) 1,200 mg BID PO Last administered on 11/19/16 08:55; Admin Dose 1,200 MG; Start 11/12/16 at 21:00 Metoprolol Tartrate (Lopressor) 75 mg BID PO Last administered on 11/19/16 08: 48; Admin Dose 75 MG; Start 11/12/16 at 21:00 Gabapentin 100 mg 100 mg TID PO Last administered on 11/19/16 13:26; Admin Dose 100 MG; Start 11/12/16 at 21:00 Levofloxacin/ Dextrose (Levaquin 500mg/ D5W 100 ml (Pmx)) 100 ml @ 100 mls/hr Q24H IVPB Last administered on 11/18/16 20:22; Admin Dose 100 MLS/HR; Start at 20:30 Benazepril HCl 10 mg 10 mg BID PO Last administered on 11/15/16 10:34; Admin Dose 10 MG; Start 11/14/16 at 11:00; Status Future Hold Metronidazole 100 ml @ 100 mls/hr Q8 IVPB Last administered on 11/19/16 14:54 ; Admin Dose 100 MLS/HR; Start 11/14/16 at 16:00 Daptomycin/Sodium Chloride (Cubicin/NS) 100 ml @ 200 mls/hr Q24H IVPB Last administered on 11/18/16 17:36; Admin Dose 200 MLS/HR; Start 11/14/16 at 17:00 Zolpidem Tartrate (Ambien) 5 mg HS PRN PO INSOMNIA; Start 11/15/16 at 23:30 Loperamide HCl (Imodium Cap) 2 mg QID PRN PO DIARRHEA Last administered on 11/17 12:51; Admin Dose 2 MG; Start 11/16/16 at 16:00 Morphine Sulfate 2 mg 2 mg Q4H PRN IV SEVERE PAIN LEVEL 7-10 Last administered on 11/19/16 09:30; Admin Dose 2 MG; Start 11/18/16 at 14:30 Sodium Chloride (1/2 NS) 1,000 ml @ 75 mls/hr [id number] IV Last administered on 11/19/16 07:35; Admin Dose 75 MLS/HR; Start 11/19/16 at 07:00 HAMZAH GARZA NP Nov 19, 2016 16:42
--- NOTE | 2016-11-19 16:54 | PN ---
Date/Time of Note Date/Time of Note DATE: 11/19/16 TIME: 16:49 Assessment/Plan Lines/Catheters IV Catheter Type (from [facility]): Peripheral IV [place] in Place (from [facility]): No Assessment/Plan Chief Complaint/Hosp Course -Bilateral lower extremity atherosclerosis with bilateral foot gangrene: It seems that the patient's has progression of her significant infrainguinal atherosclerotic disease and upon CT angiography there is extensive infrainguinal disease bilaterally and will require intervention. Unfortunately she has no vein conduit to perform limb salvage revascularization and being chronically immunosuppressed secondary to her kidney transplant limits performing bypass with graft. Therefore, will plan on staged procedures with endovascular interventions with anesthesia as she would like to be completely anesthetized during her procedures. Will plan LLE first followed by RLE . At the moment anesthesia is not available in the lab head till early next week. Will continue to keep trying and request for availability -Our interventions will be coordinated with our multidisciplinary team as she would need to be monitored for her preservation of kidney transplant and contrast dosing -Optimize vascular status (BP medications, diet, nutrition and exercise, sugar control, antiplatelets). -Continue with antibiotics for the gangrene. -Podiatry colleagues are involved with the local wound care and will plan to determine the best option course for the patient as she would like to have everything done to provide her adequate limb salvage. -Appreciate Cardiology evaluation -Discussed findings, plan and management with the patient with a certified cylinder filler and she understands that there is great concern as she has critical limb ischemia of both legs and limb salvage may be challenging for her and possibility of a major amputation in there -Thank you for allowing us to partake in the care of your patient. Please call with any questions. Problems: Subjective 24 Hr Interval Summary no new vascular events overnight, pain controlled Exam/Review of Systems Vital Signs Vitals Vital Signs Date Time Temp Pulse Resp B/P Pulse Ox O2 Delivery O2 Flow Rate FiO2 11/19/16 14:02 98.7 59 16 102/50 98 11/17/16 22:00 Room Air Intake and Output 11/18/16 11/18/16 11/19/16 15:00 23:00 07:00 Intake Total 850 ml 1400 ml 580 ml Balance 850 ml 1400 ml 580 ml Exam Free Text/Dictation Alert and oriented x3. LUNGS: Clear to auscultation bilaterally CARDIOVASCULAR: S1 and S2 present. ABDOMEN: Soft, nontender and nondistended. Bowel sounds positive. Surgical scar well healed. EXTREMITIES: Right lower extremity faint femoral pulse. Nonpalpable pedal pulse. Motor and sensory intact. Capillary refill 4 seconds. Gangrene of the fifth toe amputation stump. Left lower extremity faint femoral pulse. Nonpalpable pedal pulse. Motor and sensory intact. Capillary refill 4 seconds. Tenderness improved first toe with gangrene. Fourth and fifth toe amputation stump gangrene. Results Result Diagram: 11/19/16 0447 11/19/16 0447 WILD DUARTE MD Nov 19, 2016 16:54
[2016-11-19 19:34] VITALS: BP 142/69; RESP 16
[2016-11-19] MEDS: LEVOFLOXACIN 500MG/D5W (PMX) 100 ML IVPB SCH (20:39)
[2016-11-19] MEDS: FAMOTIDINE 20 MG TAB PO SCH (20:40)
[2016-11-20] MEDS: morphine 4 MG/ML VIAL IV PRN (01:28)
[2016-11-20] MEDS: SOD CHLORIDE 0.45% 1,000 ML IV SCH ×2 (01:32→23:00)
[2016-11-20 02:04] VITALS: BP 134/65; RESP 16
[2016-11-20] MEDS: PANTOPRAZOLE (EC) 40 MG TAB PO SCH (05:16)
[2016-11-20] MEDS: metroNIDAZOLE 500 MG/NS (PMX) 100 ML IVPB SCH ×3 (05:16→22:01)
[2016-11-20 07:38] LABS: CALCIUM 8.5 mg/dl (8.4-10.2); CREATININE 0.58 mg/dl (0.44-1.00); MAGNESIUM 1.4 mg/dl (1.7-2.5); POTASSIUM 3.1 mmol/L (3.5-5.1)
[2016-11-20 08:21] VITALS: BP 143/65; RESP 18
[2016-11-20] MEDS: CITRIC ACID/NA CITRATE 30 ML CUP PO SCH ×3 (09:49→21:06)
[2016-11-20] MEDS: DILTIAZEM (CD) 180 MG CAP PO SCH (09:50)
[2016-11-20] MEDS: ASPIRIN (EC) 81 MG TAB PO SCH (09:51)
[2016-11-20] MEDS: ACETYLCYSTEINE 600 MG CAP PO SCH ×2 (09:51→21:06)
[2016-11-20] MEDS: FOLIC ACID 1 MG TAB PO SCH (09:51)
[2016-11-20] MEDS: METOPROLOL 25 MG TAB PO SCH ×2 (09:51→21:05)
[2016-11-20] MEDS: ENOXAPARIN 30 MG/0.3 ML SYG SC SCH (09:52)
[2016-11-20] MEDS: GABAPENTIN 100 MG CAP PO SCH ×3 (09:55→21:05)
[2016-11-20] MEDS: TACROLIMUS 1 MG CAP PO SCH ×2 (10:02→21:04)
[2016-11-20] MEDS: MYCOPHENOLATE 250 MG CAP PO SCH ×2 (10:02→21:58)
--- NOTE | 2016-11-20 12:05 | PN ---
Date/Time of Note Date/Time of Note DATE: 11/20/16 TIME: 11:59 Assessment/Plan VTE Prophylaxis VTE Prophylaxis Intervention: LMWH Lines/Catheters IV Catheter Type (from [facility]): Peripheral IV Urinary Cath still in place: No Assessment/Plan Chief Complaint/Hosp Course 1.Significant peripheral vascular disease with bilateral lower extremities gangrene. -Vascular on board and per evaluation, patient has critical limb ischemia of both legs and limb salvage may be challenging for her and possibility of a major amputation in there. Hence the plan is for staged revascularization procedure left lower extremities first followed by right lower extremity. -Continue aspirin, blood pressure management, statin and prophylactic anticoagulation. -Antibiotics per ID recommendation. 2.H/o kidney transplant: - on immunosuppression with Prograf, CellCept 3. Hypertension. -Continue antihypertensives 4. Chronic anemia. -H&H stable. Will monitor. 5. Peripheral neuropathy. -Continue pain medications DVT prophylaxis: Lovenox PUD prophylaxis: Protonix next Plan: We will follow-up with vascular recommendation regarding further vascular interventions-intervention pending secondary to anesthesia availability. Continue current medical management. Case discussed with . Problems: Subjective 24 Hr Interval Summary Free Text/Dictation No overnight episodes. Exam/Review of Systems Vital Signs Vitals Vital Signs Date Time Temp Pulse Resp B/P Pulse Ox O2 Delivery O2 Flow Rate FiO2 11/20/16 08:21 98.2 62 18 143/65 100 11/17/16 22:00 Room Air Intake and Output 11/19/16 11/19/16 11/20/16 15:00 23:00 07:00 Intake Total 406 ml 905 ml 1300 ml Balance 406 ml 905 ml 1300 ml Exam General: Well developed,adequately built, not in any acute distress . HEENT: Normocephalic, Atraumatic, No laceration or hematoma; Eyes: PEERL, Conjunctiva clear, Anicteric sclera Neck: Supple without any lymphadenopathy, nontender, no JVD, no carotid bruits, trachea midline, no thyromegaly Cardiac: S1, S2 auscultated, regular rhythm and rate, no mumurs or gallop Pulmonary: Normal respiratory effort. Chest clear to auscultation bilaterally, no adventitious breath sounds GI: Abdomen normal to inspection. Soft, non tender, non- distended, no masses, no rebound tenderness or guarding. Bowel sounds active on all four quadrants Genitourinary: Deferred Extremities: Gangrenous toes. No cyanosis, clubbing, or edema. Pulses [2+] bilaterally. Full ROM on all four extremities. No focal weakness appreciated. Neurologic: Alert to person, place, time, and situation. Affect appropriate, intact sensation. Skin: Clean,dry, and intact. No ecchymosis, no rashes, or lesions Results Result Diagram: 11/19/16 0447 11/20/16 0548 Results 24 hrs Laboratory Tests Test 11/19/16 20:37 11/20/16 05:48 Bedside Glucose 152 Sodium Level 140 Potassium Level 3.1 L Chloride Level 103 Carbon Dioxide Level 24 Anion Gap 16 Blood Urea Nitrogen 8 Creatinine 0.58 Glucose Level 88 Calcium Level 8.5 Magnesium Level 1.4 L Medications Medications Current Medications Ondansetron HCl (Zofran Inj) 4 mg Q6H PRN IV NAUSEA AND/OR VOMITING; Start at 16:00 Acetaminophen (Tylenol Tab) 650 mg Q6H PRN PO PAIN LEVEL 1-3 OR FEVER; Start at 16:00 Pantoprazole (Protonix Tab) 40 mg DAILY@06 PO Last administered on 11/20/16 05: 16; Admin Dose 40 MG; Start 11/13/16 at 06:00 Enoxaparin Sodium (Lovenox) 30 mg DAILY SC Last administered on 11/20/16 09:52 ; Admin Dose 30 MG; Start 11/13/16 at 09:00 Aspirin (Halfprin) 81 mg DAILY PO Last administered on 11/20/16 09:51; Admin Dose 81 MG; Start 11/13/16 at 09:00 Diltiazem HCl (Cardizem Cd) 180 mg DAILY PO Last administered on 11/20/16 09:50 ; Admin Dose 180 MG; Start 11/13/16 at 09:00 Famotidine (Pepcid) 40 mg HS PO Last administered on 11/19/16 20:40; Admin Dose 40 MG; Start 11/12/16 at 21:00 Folic Acid (Folic Acid) 1 mg DAILY PO Last administered on 11/20/16 09:51; Admin Dose 1 MG; Start 11/13/16 at 09:00 Mycophenolate Mofetil (Cellcept) 1,000 mg BID PO Last administered on 11/20/16 10:02; Admin Dose 1,000 MG; Start 11/12/16 at 21:00 Tacrolimus (Prograf) 2 mg Q12 PO Last administered on 11/20/16 10:02; Admin Dose 2 MG; Start 11/12/16 at 21:00 Citric Acid/ Sodium Citrate (Bicitra) 30 ml TID PO Last administered on 09:49; Admin Dose 30 ML; Start 11/12/16 at 21:00 Acetylcysteine (Nac) 1,200 mg BID PO Last administered on 11/20/16 09:51; Admin Dose 1,200 MG; Start 11/12/16 at 21:00 Metoprolol Tartrate (Lopressor) 75 mg BID PO Last administered on 11/20/16 09: 51; Admin Dose 75 MG; Start 11/12/16 at 21:00 Gabapentin 100 mg 100 mg TID PO Last administered on 11/20/16 09:55; Admin Dose 100 MG; Start 11/12/16 at 21:00 Levofloxacin/ Dextrose (Levaquin 500mg/ D5W 100 ml (Pmx)) 100 ml @ 100 mls/hr Q24H IVPB Last administered on 11/19/16 20:39; Admin Dose 100 MLS/HR; Start at 20:30 Benazepril HCl 10 mg 10 mg BID PO Last administered on 11/15/16 10:34; Admin Dose 10 MG; Start 11/14/16 at 11:00; Status Future Hold Metronidazole 100 ml @ 100 mls/hr Q8 IVPB Last administered on 11/20/16 05:16 ; Admin Dose 100 MLS/HR; Start 11/14/16 at 16:00 Daptomycin/Sodium Chloride (Cubicin/NS) 100 ml @ 200 mls/hr Q24H IVPB Last administered on 11/19/16 16:40; Admin Dose 200 MLS/HR; Start 11/14/16 at 17:00 Zolpidem Tartrate (Ambien) 5 mg HS PRN PO INSOMNIA; Start 11/15/16 at 23:30 Loperamide HCl (Imodium Cap) 2 mg QID PRN PO DIARRHEA Last administered on 11/17 12:51; Admin Dose 2 MG; Start 11/16/16 at 16:00 Morphine Sulfate 2 mg 2 mg Q4H PRN IV SEVERE PAIN LEVEL 7-10 Last administered on 11/20/16 01:28; Admin Dose 2 MG; Start 11/18/16 at 14:30 Sodium Chloride (1/2 NS) 1,000 ml @ 75 mls/hr [id number] IV Last administered on 11/20/16 01:32; Admin Dose 75 MLS/HR; Start 11/19/16 at 07:00 HELEN ANDREWS NP Nov 20, 2016 12:05
[2016-11-20] MEDS ORDERED: POTASSIUM CHLORIDE 250 ML IVPB ONE (13:00)
[2016-11-20] MEDS ORDERED: MAGNESIUM SULFATE 3 GM in SOD CHLORIDE 0.9% 100 ML IVPB ONE (13:00)
--- NOTE | 2016-11-20 13:38 | CONS ---
Date/Time of Note Date/Time of Note DATE: 11/20/16 TIME: 13:36 Assessment/Plan Assessment/Plan Chief Complaint/Hosp Course IMP: 1. Pre-op for LE vascular procedure. Nl EF and no ischemia by lexiscan 11/13 only scar. Ok to proceed with surgery from CV standpoint at moderate risk 2.HTN-uncontrolled 3,CAD 4.PAD with nonhealing LE wounds 5. -moderate by echo this admit Recc: -Tele -serial ecg's -Continue dilt/BB/ASA -local wound care -pending LE revascularization as staged procedure when anesthesia available and will attempt endovascular approach first Problems: Consultation Date/Type/Reason Admit Date/Time Nov 12, 2016 at 10:06 Initial Consult Date 11/12/16 Type of Consultation: cariology Reason for Consultation pre-op Referring Provider: KRISTIN HALL MD Exam/Review of Systems Vital Signs Vitals Vital Signs Date Time Temp Pulse Resp B/P Pulse Ox O2 Delivery O2 Flow Rate FiO2 11/20/16 08:21 98.2 62 18 143/65 100 11/17/16 22:00 Room Air Intake and Output 11/19/16 11/19/16 11/20/16 15:00 23:00 07:00 Intake Total 406 ml 905 ml 1300 ml Balance 406 ml 905 ml 1300 ml Exam Review of Systems: CONSTITUTIONAL: No fevers, chills. PULMONARY: No sob CARDIOVASCULAR: No chest pain/palpitations GASTROINTESTINAL: No nausea/vomiting. GENITOURINARY: No hematuria/dysuria. MUSCULOSKELETAL: PAIN IN FOOT PSYCHIATRIC: The patient denies depression. NEUROLOGIC: No weakness Constitutional: alert Psych: no complaints Head: normocephalic ENMT: mucosa pink and moist Neck: jvd (9 CM WATER), supple Respiratory: clear to auscultation Cardiovascular: regular rate and rhythm Gastrointestinal: non-tender, soft Musculoskeletal: muscle weakness (GENERALIZED) Extremities: edema (none), other (covered by dressing) Neurological: other (NO focal deficfts) Results Result Diagram: 11/19/16 0447 11/20/16 0548 Results 24 hrs Laboratory Tests Test 11/19/16 20:37 11/20/16 05:48 Bedside Glucose 152 Sodium Level 140 Potassium Level 3.1 L Chloride Level 103 Carbon Dioxide Level 24 Anion Gap 16 Blood Urea Nitrogen 8 Creatinine 0.58 Glucose Level 88 Calcium Level 8.5 Magnesium Level 1.4 L Medications Medications Current Medications Ondansetron HCl (Zofran Inj) 4 mg Q6H PRN IV NAUSEA AND/OR VOMITING; Start at 16:00 Acetaminophen (Tylenol Tab) 650 mg Q6H PRN PO PAIN LEVEL 1-3 OR FEVER; Start at 16:00 Pantoprazole (Protonix Tab) 40 mg DAILY@06 PO Last administered on 11/20/16 05: 16; Admin Dose 40 MG; Start 11/13/16 at 06:00 Enoxaparin Sodium (Lovenox) 30 mg DAILY SC Last administered on 11/20/16 09:52 ; Admin Dose 30 MG; Start 11/13/16 at 09:00 Aspirin (Halfprin) 81 mg DAILY PO Last administered on 11/20/16 09:51; Admin Dose 81 MG; Start 11/13/16 at 09:00 Diltiazem HCl (Cardizem Cd) 180 mg DAILY PO Last administered on 11/20/16 09:50 ; Admin Dose 180 MG; Start 11/13/16 at 09:00 Famotidine (Pepcid) 40 mg HS PO Last administered on 11/19/16 20:40; Admin Dose 40 MG; Start 11/12/16 at 21:00 Folic Acid (Folic Acid) 1 mg DAILY PO Last administered on 11/20/16 09:51; Admin Dose 1 MG; Start 11/13/16 at 09:00 Mycophenolate Mofetil (Cellcept) 1,000 mg BID PO Last administered on 11/20/16 10:02; Admin Dose 1,000 MG; Start 11/12/16 at 21:00 Tacrolimus (Prograf) 2 mg Q12 PO Last administered on 11/20/16 10:02; Admin Dose 2 MG; Start 11/12/16 at 21:00 Citric Acid/ Sodium Citrate (Bicitra) 30 ml TID PO Last administered on 13:32; Admin Dose 30 ML; Start 11/12/16 at 21:00 Acetylcysteine (Nac) 1,200 mg BID PO Last administered on 11/20/16 09:51; Admin Dose 1,200 MG; Start 11/12/16 at 21:00 Metoprolol Tartrate (Lopressor) 75 mg BID PO Last administered on 11/20/16 09: 51; Admin Dose 75 MG; Start 11/12/16 at 21:00 Gabapentin 100 mg 100 mg TID PO Last administered on 11/20/16 13:32; Admin Dose 100 MG; Start 11/12/16 at 21:00 Levofloxacin/ Dextrose (Levaquin 500mg/ D5W 100 ml (Pmx)) 100 ml @ 100 mls/hr Q24H IVPB Last administered on 11/19/16 20:39; Admin Dose 100 MLS/HR; Start at 20:30 Benazepril HCl 10 mg 10 mg BID PO Last administered on 11/15/16 10:34; Admin Dose 10 MG; Start 11/14/16 at 11:00; Status Future Hold Metronidazole 100 ml @ 100 mls/hr Q8 IVPB Last administered on 11/20/16 13:32 ; Admin Dose 100 MLS/HR; Start 11/14/16 at 16:00 Daptomycin/Sodium Chloride (Cubicin/NS) 100 ml @ 200 mls/hr Q24H IVPB Last administered on 11/19/16 16:40; Admin Dose 200 MLS/HR; Start 11/14/16 at 17:00 Zolpidem Tartrate (Ambien) 5 mg HS PRN PO INSOMNIA; Start 11/15/16 at 23:30 Loperamide HCl (Imodium Cap) 2 mg QID PRN PO DIARRHEA Last administered on 11/17 12:51; Admin Dose 2 MG; Start 11/16/16 at 16:00 Morphine Sulfate 2 mg 2 mg Q4H PRN IV SEVERE PAIN LEVEL 7-10 Last administered on 11/20/16 01:28; Admin Dose 2 MG; Start 11/18/16 at 14:30 Sodium Chloride 1,000 ml @ 75 mls/hr [id number] IV Last administered on 11/20/16 01:32; Admin Dose 75 MLS/HR; Start 11/19/16 at 07:00 Potassium Chloride 250 ml @ 62.5 mls/hr ONCE ONCE IVPB Last administered on 13:23; Admin Dose 62.5 MLS/HR; Start 11/20/16 at 13:00; Stop 11/20/16 at 16:59 Magnesium Sulfate/ Sodium Chloride (Magnesium Sulfate/NS) 106 ml @ 35.333 mls/ hr ONCE ONCE IVPB ; Start 11/20/16 at 13:00; Stop 11/20/16 at 15:59 TIMOTHY CORTES Nov 20, 2016 13:38
[2016-11-20 15:43] VITALS: BP 114/65; RESP 20
--- NOTE | 2016-11-20 16:35 | CONS ---
Date/Time of Note Date/Time of Note DATE: 11/20/16 TIME: 16:33 Assessment/Plan Assessment/Plan Chief Complaint/Hosp Course ID PROGRESS NOTE CURRENT ABX=> Levaquin IV + Dapto + Flagyl IV + Vanco po #7 s/p Clindamycin-> DC"d due to severe diarrhea Vanco IV + Zosyn 11/12 24H INTERVAL SUMMARY * No new isues, no fevers, pain is contolled. * Pending revascularization when [facility] [employer] is available for booking == next week per notes PHYSICAL EXAMINATION: GENERAL: VSS, NAD HEENT: Unremarkable -- NECK: Supple, trachea midline. CHEST: Rise symmetrical, without dyspnea on observation HEART: Pulse RRR ABDOMEN: Soft, benign EXTREMITIES: Warm -- gangrenous toes ID ASSESSMENT 61 yo F admit with: 1. 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 Severe peripheral vascular disease status post angiogram with angioplasty 3. Hx of donor kidney transplant 2009, on Prograf, CellCept and prednisone. 4. 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 h/o donor kidney transplant in 2009 at [facility], currently on immunosuppression with Prograf, CellCept 6. HTN -> Poorly controlled 7. DM w/complications of DM polyneuropathies: renal, peripheral 8. History of previous left upper extremity arteriovenous fistula. 9. (+)Diarrhea => ABX associated suspect C.Diff => C.Diff toxin (-) after initiation of ABX 10. Hx of Thrombocytopenia FEB admission on Zyvox 11. Hx of CAD, 11/13 Lexiscan MIBI: No reversibility, no new WMA, EF 70% at stress (- )MRSA Nares screening last admit 10/31/15 INVASIVES: PIV, ABX ALLERGY: KNDA CURRENT ABX: CURRENT ABX=> Levaquin IV + Dapto + Flagyl IV + Vanco po #7 s/p Clindamycin-> DC"d 2/2 severe diarrhea Vanco IV + Zosyn 11/12 ID RECOMMENDATIONS=> Continue current plan: 1. Pt is high risk immunocompromised host 2/2 DM + immunosuppressive renal Tx status 2. Hx of renal insufficiency with Vanco IV in the past, hx of thrombocytopenia w /Zyvox in the past * Dapto 6mg/kg pharmacy may adjust per renal => baseline CPK, ESR,CRP ordered for today, HOLD STATIN while on DAPTO * Flagyl 500mg IVPB daily/ Vanco 125mg Liq PO Q6H=> continue for now * Continue Levaquin 3. Appreciate APC/Vascular note: (+)critical limb ischemia of both legs and limb salvage may be challenging for her and possibility of a major amputation in there. * The plan is for staged revascularization procedures -> plan LLE first followed by RLE . * Pending revascularization when [facility] [employer] is available for booking == next week per notes . Problems: Consultation Date/Type/Reason Admit Date/Time Nov 12, 2016 at 10:06 Initial Consult Date 11/12/16 Type of Consultation: ID Referring Provider: KRISTIN HALL MD Exam/Review of Systems Vital Signs Vitals Vital Signs Date Time Temp Pulse Resp B/P Pulse Ox O2 Delivery O2 Flow Rate FiO2 11/20/16 15:43 98.8 62 20 114/65 100 11/17/16 22:00 Room Air Intake and Output 11/19/16 11/19/16 11/20/16 15:00 23:00 07:00 Intake Total 406 ml 905 ml 1300 ml Balance 406 ml 905 ml 1300 ml Results Result Diagram: 11/19/16 0447 11/20/16 0548 Results 24 hrs Laboratory Tests Test 11/19/16 20:37 11/20/16 05:48 Bedside Glucose 152 Sodium Level 140 Potassium Level 3.1 L Chloride Level 103 Carbon Dioxide Level 24 Anion Gap 16 Blood Urea Nitrogen 8 Creatinine 0.58 Glucose Level 88 Calcium Level 8.5 Magnesium Level 1.4 L Medications Medications Current Medications Ondansetron HCl (Zofran Inj) 4 mg Q6H PRN IV NAUSEA AND/OR VOMITING; Start at 16:00 Acetaminophen (Tylenol Tab) 650 mg Q6H PRN PO PAIN LEVEL 1-3 OR FEVER; Start at 16:00 Pantoprazole (Protonix Tab) 40 mg DAILY@06 PO Last administered on 11/20/16 05: 16; Admin Dose 40 MG; Start 11/13/16 at 06:00 Enoxaparin Sodium (Lovenox) 30 mg DAILY SC Last administered on 11/20/16 09:52 ; Admin Dose 30 MG; Start 11/13/16 at 09:00 Aspirin (Halfprin) 81 mg DAILY PO Last administered on 11/20/16 09:51; Admin Dose 81 MG; Start 11/13/16 at 09:00 Diltiazem HCl (Cardizem Cd) 180 mg DAILY PO Last administered on 11/20/16 09:50 ; Admin Dose 180 MG; Start 11/13/16 at 09:00 Famotidine (Pepcid) 40 mg HS PO Last administered on 11/19/16 20:40; Admin Dose 40 MG; Start 11/12/16 at 21:00 Folic Acid (Folic Acid) 1 mg DAILY PO Last administered on 11/20/16 09:51; Admin Dose 1 MG; Start 11/13/16 at 09:00 Mycophenolate Mofetil (Cellcept) 1,000 mg BID PO Last administered on 11/20/16 10:02; Admin Dose 1,000 MG; Start 11/12/16 at 21:00 Tacrolimus (Prograf) 2 mg Q12 PO Last administered on 11/20/16 10:02; Admin Dose 2 MG; Start 11/12/16 at 21:00 Citric Acid/ Sodium Citrate (Bicitra) 30 ml TID PO Last administered on 13:32; Admin Dose 30 ML; Start 11/12/16 at 21:00 Acetylcysteine (Nac) 1,200 mg BID PO Last administered on 11/20/16 09:51; Admin Dose 1,200 MG; Start 11/12/16 at 21:00 Metoprolol Tartrate (Lopressor) 75 mg BID PO Last administered on 11/20/16 09: 51; Admin Dose 75 MG; Start 11/12/16 at 21:00 Gabapentin 100 mg 100 mg TID PO Last administered on 11/20/16 13:32; Admin Dose 100 MG; Start 11/12/16 at 21:00 Levofloxacin/ Dextrose (Levaquin 500mg/ D5W 100 ml (Pmx)) 100 ml @ 100 mls/hr Q24H IVPB Last administered on 11/19/16 20:39; Admin Dose 100 MLS/HR; Start at 20:30 Benazepril HCl 10 mg 10 mg BID PO Last administered on 11/15/16 10:34; Admin Dose 10 MG; Start 11/14/16 at 11:00; Status Future Hold Metronidazole 100 ml @ 100 mls/hr Q8 IVPB Last administered on 11/20/16 13:32 ; Admin Dose 100 MLS/HR; Start 11/14/16 at 16:00 Daptomycin/Sodium Chloride (Cubicin/NS) 100 ml @ 200 mls/hr Q24H IVPB Last administered on 11/19/16 16:40; Admin Dose 200 MLS/HR; Start 11/14/16 at 17:00 Zolpidem Tartrate (Ambien) 5 mg HS PRN PO INSOMNIA; Start 11/15/16 at 23:30 Loperamide HCl (Imodium Cap) 2 mg QID PRN PO DIARRHEA Last administered on 11/17 12:51; Admin Dose 2 MG; Start 11/16/16 at 16:00 Morphine Sulfate 2 mg 2 mg Q4H PRN IV SEVERE PAIN LEVEL 7-10 Last administered on 11/20/16 01:28; Admin Dose 2 MG; Start 11/18/16 at 14:30 Sodium Chloride 1,000 ml @ 75 mls/hr [id number] IV Last administered on 11/20/16 01:32; Admin Dose 75 MLS/HR; Start 11/19/16 at 07:00 Potassium Chloride (KCl 40 MEQ/250 ML NS) 250 ml @ 62.5 mls/hr ONCE ONCE IVPB Last administered on 11/20/16 13:23; Admin Dose 62.5 MLS/HR; Start 11/20/16 at 13:00; Stop 11/20/16 at 16:59 HAMZAH GARZA NP Nov 20, 2016 16:35
--- NOTE | 2016-11-20 16:43 | CONS ---
Date/Time of Note Date/Time of Note DATE: 11/20/16 TIME: 16:42 Assessment/Plan Assessment/Plan Additional Assessment/Plan 1. 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 h/o donor kidney transplant in 2009 at [facility], currently on immunosuppression with Prograf, CellCept 4. 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 History of hypertension. 6. History of diabetes mellitus. 7. History of previous left upper extremity arteriovenous fistula. 8. Mild Metabolic acidosis, Hypercalcemia ,Hypokalemia, Hypomagnesemia Plan: IV abx as per Infectious disease service continue bicitra 30ml pO TID for acidosis, Cr normal today. mag and K replacement has been ordered for today Continue current immunosuppresion with prograf,cellcept, no prednisone due to hypercalcemia will continue to follow up Consultation Date/Type/Reason Admit Date/Time Nov 12, 2016 at 10:06 Initial Consult Date 11/12/16 Type of Consultation: NEPHROLOGY Referring Provider: KRISTIN HALL MD Exam/Review of Systems Vital Signs Vitals Vital Signs Date Time Temp Pulse Resp B/P Pulse Ox O2 Delivery O2 Flow Rate FiO2 11/20/16 15:43 98.8 62 20 114/65 100 11/17/16 22:00 Room Air Intake and Output 11/19/16 11/19/16 11/20/16 15:00 23:00 07:00 Intake Total 406 ml 905 ml 1300 ml Balance 406 ml 905 ml 1300 ml Exam Constitutional: alert, oriented Respiratory: clear to auscultation, diminished breath sounds, normal air movement Cardiovascular: nl pulses, regular rate and rhythm Gastrointestinal: non-tender, soft Musculoskeletal: other (gangrenous toes of both lower extremities. Her recent operative amputations are healing, but with poor healing noted. No new trauma is noted.) Extremities: edema, other (diminished pulses in both LE ) Neurological: LAYOUT FORMER II-XII intact Results Result Diagram: 11/19/16 0447 11/20/16 0548 Results 24 hrs Laboratory Tests Test 11/19/16 20:37 11/20/16 05:48 Bedside Glucose 152 Sodium Level 140 Potassium Level 3.1 L Chloride Level 103 Carbon Dioxide Level 24 Anion Gap 16 Blood Urea Nitrogen 8 Creatinine 0.58 Glucose Level 88 Calcium Level 8.5 Magnesium Level 1.4 L Medications Medications Current Medications Ondansetron HCl (Zofran Inj) 4 mg Q6H PRN IV NAUSEA AND/OR VOMITING; Start at 16:00 Acetaminophen (Tylenol Tab) 650 mg Q6H PRN PO PAIN LEVEL 1-3 OR FEVER; Start at 16:00 Pantoprazole (Protonix Tab) 40 mg DAILY@06 PO Last administered on 11/20/16 05: 16; Admin Dose 40 MG; Start 11/13/16 at 06:00 Enoxaparin Sodium (Lovenox) 30 mg DAILY SC Last administered on 11/20/16 09:52 ; Admin Dose 30 MG; Start 11/13/16 at 09:00 Aspirin (Halfprin) 81 mg DAILY PO Last administered on 11/20/16 09:51; Admin Dose 81 MG; Start 11/13/16 at 09:00 Diltiazem HCl (Cardizem Cd) 180 mg DAILY PO Last administered on 11/20/16 09:50 ; Admin Dose 180 MG; Start 11/13/16 at 09:00 Famotidine (Pepcid) 40 mg HS PO Last administered on 11/19/16 20:40; Admin Dose 40 MG; Start 11/12/16 at 21:00 Folic Acid (Folic Acid) 1 mg DAILY PO Last administered on 11/20/16 09:51; Admin Dose 1 MG; Start 11/13/16 at 09:00 Mycophenolate Mofetil (Cellcept) 1,000 mg BID PO Last administered on 11/20/16 10:02; Admin Dose 1,000 MG; Start 11/12/16 at 21:00 Tacrolimus (Prograf) 2 mg Q12 PO Last administered on 11/20/16 10:02; Admin Dose 2 MG; Start 11/12/16 at 21:00 Citric Acid/ Sodium Citrate (Bicitra) 30 ml TID PO Last administered on 13:32; Admin Dose 30 ML; Start 11/12/16 at 21:00 Acetylcysteine (Nac) 1,200 mg BID PO Last administered on 11/20/16 09:51; Admin Dose 1,200 MG; Start 11/12/16 at 21:00 Metoprolol Tartrate (Lopressor) 75 mg BID PO Last administered on 11/20/16 09: 51; Admin Dose 75 MG; Start 11/12/16 at 21:00 Gabapentin 100 mg 100 mg TID PO Last administered on 11/20/16 13:32; Admin Dose 100 MG; Start 11/12/16 at 21:00 Levofloxacin/ Dextrose (Levaquin 500mg/ D5W 100 ml (Pmx)) 100 ml @ 100 mls/hr Q24H IVPB Last administered on 11/19/16 20:39; Admin Dose 100 MLS/HR; Start at 20:30 Benazepril HCl 10 mg 10 mg BID PO Last administered on 11/15/16 10:34; Admin Dose 10 MG; Start 11/14/16 at 11:00; Status Future Hold Metronidazole 100 ml @ 100 mls/hr Q8 IVPB Last administered on 11/20/16 13:32 ; Admin Dose 100 MLS/HR; Start 11/14/16 at 16:00 Daptomycin/Sodium Chloride (Cubicin/NS) 100 ml @ 200 mls/hr Q24H IVPB Last administered on 11/19/16 16:40; Admin Dose 200 MLS/HR; Start 11/14/16 at 17:00 Zolpidem Tartrate (Ambien) 5 mg HS PRN PO INSOMNIA; Start 11/15/16 at 23:30 Loperamide HCl (Imodium Cap) 2 mg QID PRN PO DIARRHEA Last administered on 11/17 12:51; Admin Dose 2 MG; Start 11/16/16 at 16:00 Morphine Sulfate 2 mg 2 mg Q4H PRN IV SEVERE PAIN LEVEL 7-10 Last administered on 11/20/16 01:28; Admin Dose 2 MG; Start 11/18/16 at 14:30 Sodium Chloride 1,000 ml @ 75 mls/hr [id number] IV Last administered on 11/20/16 01:32; Admin Dose 75 MLS/HR; Start 11/19/16 at 07:00 Potassium Chloride (KCl 40 MEQ/250 ML NS) 250 ml @ 62.5 mls/hr ONCE ONCE IVPB Last administered on 11/20/16 13:23; Admin Dose 62.5 MLS/HR; Start 11/20/16 at 13:00; Stop 11/20/16 at 16:59 RAMON KEMP MD Nov 20, 2016 16:43
[2016-11-20] MEDS: SOD CHLORIDE 0.9% IVPB SCH (19:39)
[2016-11-20] MEDS: DAPTOMYCIN IVPB SCH (19:39)
[2016-11-20 20:02] VITALS: BP 141/70; RESP 18
[2016-11-20] MEDS: LEVOFLOXACIN 500MG/D5W (PMX) 100 ML IVPB SCH (21:04)
[2016-11-20] MEDS: FAMOTIDINE 20 MG TAB PO SCH (21:06)
--- NOTE | 2016-11-20 21:50 | RADRPT ---
PROCEDURE: Soft tissue of the neck CLINICAL INDICATION: Left neck bruise TECHNIQUE: AP and lateral soft tissue views of the neck were performed. COMPARISON: None FINDINGS: There is appearance of bilateral cervical carotid calcification. Additional arterial calcifications are apparent in the neck soft tissues. Visualized soft tissues of the neck are otherwise unremarkabl e in appearance. IMPRESSION: Bilateral cervical carotid calcification. Additional arterial calcifications in the neck soft tissue s. Please see above. RPTAT: HJES .Piyush Yap MD, MD Date Time Electronically viewed and signed by .Piyush Yap MD, MD on 11/20/2016 21:50 .S/
[2016-11-21 02:01] VITALS: BP 138/68; RESP 18
[2016-11-21] MEDS: SOD CHLORIDE 0.45% 1,000 ML IV SCH ×2 (03:07→20:55)
[2016-11-21] MEDS: morphine 4 MG/ML VIAL IV PRN ×2 (04:28→21:06)
[2016-11-21] MEDS: PANTOPRAZOLE (EC) 40 MG TAB PO SCH (05:09)
[2016-11-21] MEDS: metroNIDAZOLE 500 MG/NS (PMX) 100 ML IVPB SCH ×3 (05:10→22:22)
[2016-11-21 07:00] LABS: CALCIUM 8.9 mg/dl (8.4-10.2); CREATININE 0.58 mg/dl (0.44-1.00); MAGNESIUM 1.7 mg/dl (1.7-2.5); POTASSIUM 3.6 mmol/L (3.5-5.1)
[2016-11-21 08:00] VITALS: BP 157/77; RESP 18
[2016-11-21] MEDS: ACETYLCYSTEINE 600 MG CAP PO SCH ×2 (08:08→20:56)
[2016-11-21] MEDS: ASPIRIN (EC) 81 MG TAB PO SCH (08:08)
[2016-11-21] MEDS: CITRIC ACID/NA CITRATE 30 ML CUP PO SCH ×3 (08:08→20:55)
[2016-11-21] MEDS: GABAPENTIN 100 MG CAP PO SCH ×3 (08:08→20:57)
[2016-11-21] MEDS: TACROLIMUS 1 MG CAP PO SCH ×2 (08:09→20:55)
[2016-11-21] MEDS: MYCOPHENOLATE 250 MG CAP PO SCH ×2 (08:09→20:57)
[2016-11-21] MEDS: ENOXAPARIN 30 MG/0.3 ML SYG SC SCH (08:09)
[2016-11-21] MEDS: FOLIC ACID 1 MG TAB PO SCH (08:10)
[2016-11-21] MEDS: DILTIAZEM (CD) 180 MG CAP PO SCH (08:10)
[2016-11-21] MEDS: METOPROLOL 25 MG TAB PO SCH ×2 (08:10→20:57)
--- NOTE | 2016-11-21 09:22 | PN ---
Date/Time of Note Date/Time of Note DATE: 11/21/16 TIME: 09:20 Assessment/Plan VTE Prophylaxis VTE Prophylaxis Intervention: LMWH Lines/Catheters IV [facility]ter [facility]from [facility] Peripheral IV Urinary Cath still in place: No Assessment/Plan Chief Complaint/Hosp Course 1.Significant peripheral vascular disease with bilateral lower extremities gangrene. -Vascular on board and per evaluation, patient has critical limb ischemia of both legs and limb salvage may be challenging for her and possibility of a major amputation in there. Hence the plan is for staged revascularization procedure left lower extremities first followed by right lower extremity. -Continue aspirin, blood pressure management, statin and prophylactic anticoagulation. -ID following. So far cultures have been negative. Defer antibiotics to ID team. 2.H/o kidney transplant: - on immunosuppression with Prograf, CellCept -Nephrology on board and will follow recommendations. 3. Hypertension. -Continue antihypertensives 4. Chronic anemia. -H&H stable. Will monitor. 5. Peripheral neuropathy. -Continue pain medications 6. Persistent hypomagnesemia. Now resolved. DVT prophylaxis: Lovenox PUD prophylaxis: Protonix next Plan: We will follow-up with vascular recommendation regarding further vascular interventions-intervention pending secondary to anesthesia availability. Continue current medical management. Case discussed with . Problems: Subjective 24 Hr Interval Summary Free Text/Dictation No acute overnight episodes. Exam/Review of Systems Vital Signs Vitals Vital Signs Date Time Temp Pulse Resp B/P Pulse Ox O2 Delivery O2 Flow Rate FiO2 11/21/16 08:00 98.6 73 18 157/77 96 11/17/16 22:00 Room Air Intake and Output 11/20/16 11/20/16 11/21/16 15:00 23:00 07:00 Intake Total 100 ml 1584 ml 1046 ml Balance 100 ml 1584 ml 1046 ml Exam General: Well developed,adequately built, not in any acute distress . HEENT: Normocephalic, Atraumatic, No laceration or hematoma; Eyes: PEERL, Conjunctiva clear, Anicteric sclera Neck: Supple without any lymphadenopathy, nontender, no JVD, no carotid bruits, trachea midline, no thyromegaly Cardiac: S1, S2 auscultated, regular rhythm and rate, no mumurs or gallop Pulmonary: Normal respiratory effort. Chest clear to auscultation bilaterally, no adventitious breath sounds GI: Abdomen normal to inspection. Soft, non tender, non- distended, no masses, no rebound tenderness or guarding. Bowel sounds active on all four quadrants Genitourinary: Deferred Extremities: Gangrenous toes. No cyanosis, clubbing, or edema. Pulses [2+] bilaterally. Full ROM on all four extremities. No focal weakness appreciated. Neurologic: Alert to person, place, time, and situation. Affect appropriate, intact sensation. Skin: Clean,dry, and intact. No ecchymosis, no rashes, or lesions Results Result Diagram: 11/19/16 0447 11/21/16 0455 Results 24 hrs Laboratory Tests Test 11/21/16 04:55 Sodium Level 139 Potassium Level 3.6 Chloride Level 101 Carbon Dioxide Level 28 Anion Gap 14 Blood Urea Nitrogen 6 L Creatinine 0.58 Glucose Level 92 Calcium Level 8.9 Magnesium Level 1.7 Medications Medications Current Medications Ondansetron HCl (Zofran Inj) 4 mg Q6H PRN IV NAUSEA AND/OR VOMITING; Start at 16:00 Acetaminophen (Tylenol Tab) 650 mg Q6H PRN PO PAIN LEVEL 1-3 OR FEVER; Start at 16:00 Pantoprazole (Protonix Tab) 40 mg DAILY@06 PO Last administered on 11/21/16 05: 09; Admin Dose 40 MG; Start 11/13/16 at 06:00 Enoxaparin Sodium (Lovenox) 30 mg DAILY SC Last administered on 11/21/16 08:09 ; Admin Dose 30 MG; Start 11/13/16 at 09:00 Aspirin (Halfprin) 81 mg DAILY PO Last administered on 11/21/16 08:08; Admin Dose 81 MG; Start 11/13/16 at 09:00 Diltiazem HCl (Cardizem Cd) 180 mg DAILY PO Last administered on 11/21/16 08:10 ; Admin Dose 180 MG; Start 11/13/16 at 09:00 Famotidine (Pepcid) 40 mg HS PO Last administered on 11/20/16 21:06; Admin Dose 40 MG; Start 11/12/16 at 21:00 Folic Acid (Folic Acid) 1 mg DAILY PO Last administered on 11/21/16 08:10; Admin Dose 1 MG; Start 11/13/16 at 09:00 Mycophenolate Mofetil (Cellcept) 1,000 mg BID PO Last administered on 11/21/16 08:09; Admin Dose 1,000 MG; Start 11/12/16 at 21:00 Tacrolimus (Prograf) 2 mg Q12 PO Last administered on 11/21/16 08:09; Admin Dose 2 MG; Start 11/12/16 at 21:00 Citric Acid/ Sodium Citrate (Bicitra) 30 ml TID PO Last administered on 08:08; Admin Dose 30 ML; Start 11/12/16 at 21:00 Acetylcysteine (Nac) 1,200 mg BID PO Last administered on 11/21/16 08:08; Admin Dose 1,200 MG; Start 11/12/16 at 21:00 Metoprolol Tartrate (Lopressor) 75 mg BID PO Last administered on 11/21/16 08: 10; Admin Dose 75 MG; Start 11/12/16 at 21:00 Gabapentin 100 mg 100 mg TID PO Last administered on 11/21/16 08:08; Admin Dose 100 MG; Start 11/12/16 at 21:00 Levofloxacin/ Dextrose (Levaquin 500mg/ D5W 100 ml (Pmx)) 100 ml @ 100 mls/hr Q24H IVPB Last administered on 11/20/16 21:04; Admin Dose 100 MLS/HR; Start at 20:30 Benazepril HCl 10 mg 10 mg BID PO Last administered on 11/15/16 10:34; Admin Dose 10 MG; Start 11/14/16 at 11:00; Status Future Hold Metronidazole 100 ml @ 100 mls/hr Q8 IVPB Last administered on 11/21/16 05:10 ; Admin Dose 100 MLS/HR; Start 11/14/16 at 16:00 Daptomycin/Sodium Chloride (Cubicin/NS) 100 ml @ 200 mls/hr Q24H IVPB Last administered on 11/20/16 19:39; Admin Dose 200 MLS/HR; Start 11/14/16 at 17:00 Zolpidem Tartrate (Ambien) 5 mg HS PRN PO INSOMNIA; Start 11/15/16 at 23:30 Loperamide HCl (Imodium Cap) 2 mg QID PRN PO DIARRHEA Last administered on 11/17 12:51; Admin Dose 2 MG; Start 11/16/16 at 16:00 Morphine Sulfate 2 mg 2 mg Q4H PRN IV SEVERE PAIN LEVEL 7-10 Last administered on 11/21/16 04:28; Admin Dose 2 MG; Start 11/18/16 at 14:30 Sodium Chloride (1/2 NS) 1,000 ml @ 75 mls/hr [id number] IV Last administered on 11/21/16 03:07; Admin Dose 75 MLS/HR; Start 11/19/16 at 07:00 HELEN ANDREWS NP Nov 21, 2016 09:22
--- NOTE | 2016-11-21 12:07 | CONS ---
Date/Time of Note Date/Time of Note DATE: 11/21/16 TIME: 12:05 Assessment/Plan Assessment/Plan Additional Assessment/Plan 1. 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 h/o donor kidney transplant in 2009 at [facility], currently on immunosuppression with Prograf, CellCept 4. 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 History of hypertension. 6. History of diabetes mellitus. 7. History of previous left upper extremity arteriovenous fistula. 8. Mild Metabolic acidosis, Hypercalcemia ,Hypokalemia, Hypomagnesemia Plan: IV abx as per Infectious disease service continue bicitra 30ml pO TID for acidosis, Cr normal today. electrolytes replacement as needed whenever vascular plan for intervention,Nurse is instructed to call me to prevent contrast induced nephropathy Continue current immunosuppresion with prograf,cellcept, no prednisone due to hypercalcemia will continue to follow up Consultation Date/Type/Reason Admit Date/Time Nov 12, 2016 at 10:06 Initial Consult Date 11/12/16 Type of Consultation: NEPHROLOGY Referring Provider: KRISTIN HALL MD Exam/Review of Systems Vital Signs Vitals Vital Signs Date Time Temp Pulse Resp B/P Pulse Ox O2 Delivery O2 Flow Rate FiO2 11/21/16 08:00 98.6 73 18 157/77 96 11/17/16 22:00 Room Air Intake and Output 11/20/16 11/20/16 11/21/16 15:00 23:00 07:00 Intake Total 100 ml 1584 ml 1046 ml Balance 100 ml 1584 ml 1046 ml Exam Constitutional: alert, oriented Respiratory: clear to auscultation, diminished breath sounds, normal air movement Cardiovascular: nl pulses, regular rate and rhythm Gastrointestinal: non-tender, soft Musculoskeletal: other (gangrenous toes of both lower extremities. Her recent operative amputations are healing, but with poor healing noted. No new trauma is noted.) Extremities: edema, other (diminished pulses in both LE ) Neurological: SORT MANAGER II-XII intact Results Result Diagram: 11/19/16 0447 11/21/16 0455 Results 24 hrs Laboratory Tests Test 11/21/16 04:55 Sodium Level 139 Potassium Level 3.6 Chloride Level 101 Carbon Dioxide Level 28 Anion Gap 14 Blood Urea Nitrogen 6 L Creatinine 0.58 Glucose Level 92 Calcium Level 8.9 Magnesium Level 1.7 Medications Medications Current Medications Ondansetron HCl (Zofran Inj) 4 mg Q6H PRN IV NAUSEA AND/OR VOMITING; Start at 16:00 Acetaminophen (Tylenol Tab) 650 mg Q6H PRN PO PAIN LEVEL 1-3 OR FEVER; Start at 16:00 Pantoprazole (Protonix Tab) 40 mg DAILY@06 PO Last administered on 11/21/16 05: 09; Admin Dose 40 MG; Start 11/13/16 at 06:00 Enoxaparin Sodium (Lovenox) 30 mg DAILY SC Last administered on 11/21/16 08:09 ; Admin Dose 30 MG; Start 11/13/16 at 09:00 Aspirin (Halfprin) 81 mg DAILY PO Last administered on 11/21/16 08:08; Admin Dose 81 MG; Start 11/13/16 at 09:00 Diltiazem HCl (Cardizem Cd) 180 mg DAILY PO Last administered on 11/21/16 08:10 ; Admin Dose 180 MG; Start 11/13/16 at 09:00 Famotidine (Pepcid) 40 mg HS PO Last administered on 11/20/16 21:06; Admin Dose 40 MG; Start 11/12/16 at 21:00 Folic Acid (Folic Acid) 1 mg DAILY PO Last administered on 11/21/16 08:10; Admin Dose 1 MG; Start 11/13/16 at 09:00 Mycophenolate Mofetil (Cellcept) 1,000 mg BID PO Last administered on 11/21/16 08:09; Admin Dose 1,000 MG; Start 11/12/16 at 21:00 Tacrolimus (Prograf) 2 mg Q12 PO Last administered on 11/21/16 08:09; Admin Dose 2 MG; Start 11/12/16 at 21:00 Citric Acid/ Sodium Citrate (Bicitra) 30 ml TID PO Last administered on 08:08; Admin Dose 30 ML; Start 11/12/16 at 21:00 Acetylcysteine (Nac) 1,200 mg BID PO Last administered on 11/21/16 08:08; Admin Dose 1,200 MG; Start 11/12/16 at 21:00 Metoprolol Tartrate (Lopressor) 75 mg BID PO Last administered on 11/21/16 08: 10; Admin Dose 75 MG; Start 11/12/16 at 21:00 Gabapentin 100 mg 100 mg TID PO Last administered on 11/21/16 08:08; Admin Dose 100 MG; Start 11/12/16 at 21:00 Levofloxacin/ Dextrose (Levaquin 500mg/ D5W 100 ml (Pmx)) 100 ml @ 100 mls/hr Q24H IVPB Last administered on 11/20/16 21:04; Admin Dose 100 MLS/HR; Start at 20:30 Benazepril HCl 10 mg 10 mg BID PO Last administered on 11/15/16 10:34; Admin Dose 10 MG; Start 11/14/16 at 11:00; Status Future Hold Metronidazole 100 ml @ 100 mls/hr Q8 IVPB Last administered on 11/21/16 05:10 ; Admin Dose 100 MLS/HR; Start 11/14/16 at 16:00 Daptomycin/Sodium Chloride (Cubicin/NS) 100 ml @ 200 mls/hr Q24H IVPB Last administered on 11/20/16 19:39; Admin Dose 200 MLS/HR; Start 11/14/16 at 17:00 Zolpidem Tartrate (Ambien) 5 mg HS PRN PO INSOMNIA; Start 11/15/16 at 23:30 Loperamide HCl (Imodium Cap) 2 mg QID PRN PO DIARRHEA Last administered on 11/17 12:51; Admin Dose 2 MG; Start 11/16/16 at 16:00 Morphine Sulfate 2 mg 2 mg Q4H PRN IV SEVERE PAIN LEVEL 7-10 Last administered on 11/21/16 04:28; Admin Dose 2 MG; Start 11/18/16 at 14:30 Sodium Chloride (1/2 NS) 1,000 ml @ 75 mls/hr [id number] IV Last administered on 11/21/16 03:07; Admin Dose 75 MLS/HR; Start 11/19/16 at 07:00 RAMON KEMP MD Nov 21, 2016 12:06
--- NOTE | 2016-11-21 12:53 | CONS ---
Date/Time of Note Date/Time of Note DATE: 11/21/16 TIME: 12:51 Assessment/Plan Assessment/Plan Chief Complaint/Hosp Course IMP: 1. Pre-op for LE vascular procedure. Nl EF and no ischemia by lexiscan 11/13 only scar. Ok to proceed with surgery from CV standpoint at moderate risk 2.HTN-uncontrolled 3,CAD 4.PAD with nonhealing LE wounds 5. -moderate by echo this admit Recc: -Now on med-surg -serial ecg's -Continue dilt/BB/ASA -local wound care -pending LE revascularization as staged procedure when anesthesia available and will attempt endovascular approach first Problems: Consultation Date/Type/Reason Admit Date/Time Nov 12, 2016 at 10:06 Initial Consult Date 11/12/16 Type of Consultation: cardiology Reason for Consultation HTN/Pre-op Referring Provider: KRISTIN HALL MD Exam/Review of Systems Vital Signs Vitals Vital Signs Date Time Temp Pulse Resp B/P Pulse Ox O2 Delivery O2 Flow Rate FiO2 11/21/16 08:00 98.6 73 18 157/77 96 11/17/16 22:00 Room Air Intake and Output 11/20/16 11/20/16 11/21/16 14:59 22:59 06:59 Intake Total 100 ml 1484 ml 1146 ml Balance 100 ml 1484 ml 1146 ml Exam Review of Systems: CONSTITUTIONAL: No fevers, chills. PULMONARY: No sob CARDIOVASCULAR: No chest pain/palpitations GASTROINTESTINAL: No nausea/vomiting. GENITOURINARY: No hematuria/dysuria. MUSCULOSKELETAL: mild pain in foot PSYCHIATRIC: The patient denies depression. NEUROLOGIC: No weakness Constitutional: alert Psych: no complaints Head: normocephalic ENMT: mucosa pink and moist Neck: jvd (9 cm water), supple Respiratory: diminished breath sounds (at bases/B) Cardiovascular: regular rate and rhythm Gastrointestinal: non-tender, soft Musculoskeletal: muscle weakness (mild generlaized), other (foot covered by dressing) Extremities: edema (none) Neurological: other (No focal deficits) Results Result Diagram: 11/19/16 0447 11/21/16 0455 Results 24 hrs Laboratory Tests Test 11/21/16 04:55 Sodium Level 139 Potassium Level 3.6 Chloride Level 101 Carbon Dioxide Level 28 Anion Gap 14 Blood Urea Nitrogen 6 L Creatinine 0.58 Glucose Level 92 Calcium Level 8.9 Magnesium Level 1.7 Medications Medications Current Medications Ondansetron HCl (Zofran Inj) 4 mg Q6H PRN IV NAUSEA AND/OR VOMITING; Start at 16:00 Acetaminophen (Tylenol Tab) 650 mg Q6H PRN PO PAIN LEVEL 1-3 OR FEVER; Start at 16:00 Pantoprazole (Protonix Tab) 40 mg DAILY@06 PO Last administered on 11/21/16 05: 09; Admin Dose 40 MG; Start 11/13/16 at 06:00 Enoxaparin Sodium (Lovenox) 30 mg DAILY SC Last administered on 11/21/16 08:09 ; Admin Dose 30 MG; Start 11/13/16 at 09:00 Aspirin (Halfprin) 81 mg DAILY PO Last administered on 11/21/16 08:08; Admin Dose 81 MG; Start 11/13/16 at 09:00 Diltiazem HCl (Cardizem Cd) 180 mg DAILY PO Last administered on 11/21/16 08:10 ; Admin Dose 180 MG; Start 11/13/16 at 09:00 Famotidine (Pepcid) 40 mg HS PO Last administered on 11/20/16 21:06; Admin Dose 40 MG; Start 11/12/16 at 21:00 Folic Acid (Folic Acid) 1 mg DAILY PO Last administered on 11/21/16 08:10; Admin Dose 1 MG; Start 11/13/16 at 09:00 Mycophenolate Mofetil (Cellcept) 1,000 mg BID PO Last administered on 11/21/16 08:09; Admin Dose 1,000 MG; Start 11/12/16 at 21:00 Tacrolimus (Prograf) 2 mg Q12 PO Last administered on 11/21/16 08:09; Admin Dose 2 MG; Start 11/12/16 at 21:00 Citric Acid/ Sodium Citrate (Bicitra) 30 ml TID PO Last administered on 08:08; Admin Dose 30 ML; Start 11/12/16 at 21:00 Acetylcysteine (Nac) 1,200 mg BID PO Last administered on 11/21/16 08:08; Admin Dose 1,200 MG; Start 11/12/16 at 21:00 Metoprolol Tartrate (Lopressor) 75 mg BID PO Last administered on 11/21/16 08: 10; Admin Dose 75 MG; Start 11/12/16 at 21:00 Gabapentin 100 mg 100 mg TID PO Last administered on 11/21/16 08:08; Admin Dose 100 MG; Start 11/12/16 at 21:00 Levofloxacin/ Dextrose (Levaquin 500mg/ D5W 100 ml (Pmx)) 100 ml @ 100 mls/hr Q24H IVPB Last administered on 11/20/16 21:04; Admin Dose 100 MLS/HR; Start at 20:30 Benazepril HCl 10 mg 10 mg BID PO Last administered on 11/15/16 10:34; Admin Dose 10 MG; Start 11/14/16 at 11:00; Status Future Hold Metronidazole 100 ml @ 100 mls/hr Q8 IVPB Last administered on 11/21/16 05:10 ; Admin Dose 100 MLS/HR; Start 11/14/16 at 16:00 Daptomycin/Sodium Chloride (Cubicin/NS) 100 ml @ 200 mls/hr Q24H IVPB Last administered on 11/20/16 19:39; Admin Dose 200 MLS/HR; Start 11/14/16 at 17:00 Zolpidem Tartrate (Ambien) 5 mg HS PRN PO INSOMNIA; Start 11/15/16 at 23:30 Loperamide HCl (Imodium Cap) 2 mg QID PRN PO DIARRHEA Last administered on 11/17 12:51; Admin Dose 2 MG; Start 11/16/16 at 16:00 Morphine Sulfate 2 mg 2 mg Q4H PRN IV SEVERE PAIN LEVEL 7-10 Last administered on 11/21/16 04:28; Admin Dose 2 MG; Start 11/18/16 at 14:30 Sodium Chloride (1/2 NS) 1,000 ml @ 75 mls/hr [id number] IV Last administered on 11/21/16 03:07; Admin Dose 75 MLS/HR; Start 11/19/16 at 07:00 TIMOTHY CORTES Nov 21, 2016 12:53
[2016-11-21 14:00] VITALS: BP 108/58; RESP 18
--- NOTE | 2016-11-21 16:00 | PN ---
Date/Time of Note Date/Time of Note DATE: 11/21/16 TIME: 15:59 Assessment/Plan Lines/Catheters IV Catheter Type (from [facility] [[email or web address] Peripheral IV Moreira in Place (from [facility] [[email or web address] No Assessment/Plan Chief Complaint/Hosp Course -Bilateral lower extremity atherosclerosis with bilateral foot gangrene: It seems that the patient's has progression of her significant infrainguinal atherosclerotic disease and upon CT angiography there is extensive infrainguinal disease bilaterally and will require intervention. Unfortunately she has no vein conduit to perform limb salvage revascularization and being chronically immunosuppressed secondary to her kidney transplant limits performing bypass with graft. Therefore, will plan on staged procedures with endovascular interventions with anesthesia as she would like to be completely anesthetized during her procedures. At the moment anesthesia is not available in the laborer [facility] till early next week. Will continue to keep trying and request for availability. Will attempt in the OR -Our interventions will be coordinated with our multidisciplinary team as she would need to be monitored for her preservation of kidney transplant and contrast dosing -Optimize vascular status (BP medications, diet, nutrition and exercise, sugar control, antiplatelets). -Continue with antibiotics for the gangrene. -Podiatry colleagues are involved with the local wound care and will plan to determine the best option course for the patient as she would like to have everything done to provide her adequate limb salvage. -Appreciate Cardiology evaluation -Discussed findings, plan and management with the patient with a certified customer service consultant and she understands that there is great concern as she has critical limb ischemia of both legs and limb salvage may be challenging for her and possibility of a major amputation in there -Thank you for allowing us to partake in the care of your patient. Please call with any questions. Problems: Subjective 24 Hr Interval Summary no new vascular events overnight Exam/Review of Systems Vital Signs Vitals Vital Signs Date Time Temp Pulse Resp B/P Pulse Ox O2 Delivery O2 Flow Rate FiO2 11/21/16 14:00 98.6 86 18 108/58 96 11/17/16 22:00 Room Air Intake and Output 11/20/16 11/20/16 11/21/16 15:00 23:00 07:00 Intake Total 100 ml 1584 ml 1046 ml Balance 100 ml 1584 ml 1046 ml Exam Free Text/Dictation Alert and oriented x3. LUNGS: Clear to auscultation bilaterally CARDIOVASCULAR: S1 and S2 present. ABDOMEN: Soft, nontender and nondistended. Bowel sounds positive. Surgical scar well healed. EXTREMITIES: Right lower extremity faint femoral pulse. Nonpalpable pedal pulse. Motor and sensory intact. Capillary refill 4 seconds. Gangrene of the fifth toe amputation stump. Left lower extremity faint femoral pulse. Nonpalpable pedal pulse. Motor and sensory intact. Capillary refill 4 seconds. Tenderness improved first toe with gangrene. Fourth and fifth toe amputation stump gangrene. Results Result Diagram: 11/19/16 0447 11/21/16 0455 WILD DUARTE MD Nov 21, 2016 16:00
--- NOTE | 2016-11-21 16:26 | CONS ---
Date/Time of Note Date/Time of Note DATE: 11/21/16 TIME: 16:19 Assessment/Plan Assessment/Plan Chief Complaint/Hosp Course ID PROGRESS NOTE CURRENT ABX=> Levaquin IV + Dapto + Flagyl IV s/p Vanco PO 11/14-11/16 s/p Clindamycin-> DC"d due to severe diarrhea Vanco IV + Zosyn 11/12 24H INTERVAL SUMMARY * A.A/O -- diarrhea has resolved -- feeling much better, no fevers/chills * Pending revascularization when [facility] shift lab technician is available for booking == next week per notes PHYSICAL EXAMINATION: GENERAL: VSS, NAD HEENT: Unremarkable -- NECK: Supple, trachea midline. CHEST: Rise symmetrical, without dyspnea on observation HEART: Pulse RRR ABDOMEN: Soft, benign EXTREMITIES: Warm -- gangrenous toes ID ASSESSMENT 61 yo F admit with: 1. 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 Severe peripheral vascular disease status post angiogram with angioplasty 3. Hx of donor kidney transplant 2009, on Prograf, CellCept and prednisone. 4. 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 h/o donor kidney transplant in 2009 at [facility], currently on immunosuppression with Prograf, CellCept 6. HTN -> Poorly controlled 7. DM w/complications of DM polyneuropathies: renal, peripheral 8. History of previous left upper extremity arteriovenous fistula. 9. (+)Diarrhea => ABX associated suspect C.Diff => C.Diff toxin (-) after initiation of ABX 10. Hx of Thrombocytopenia FEB admission on Zyvox 11. Hx of CAD, 11/13 Lexiscan MIBI: No reversibility, no new WMA, EF 70% at stress (- )MRSA Nares screening last admit 10/31/15 INVASIVES: PIV, ABX ALLERGY: KNDA CURRENT ABX: => Levaquin IV + Dapto + Flagyl IV s/p Vanco PO 11/14-11/16 s/p Clindamycin-> DC"d due to severe diarrhea Vanco IV + Zosyn 11/12 ID RECOMMENDATIONS=> No Changes to ABX Plan Below: 1. Pt is high risk immunocompromised host 2/2 DM + immunosuppressive renal Tx status 2. Hx of renal insufficiency with Vanco IV in the past, hx of thrombocytopenia w /Zyvox in the past * Dapto 6mg/kg pharmacy may adjust per renal => baseline CPK, ESR,CRP ordered for today, HOLD STATIN while on DAPTO * Flagyl 500mg IVPB daily/ Vanco 125mg Liq PO Q6H=> continue for now * Continue Levaquin 3. Appreciate APC/Vascular note: (+)critical limb ischemia of both legs and limb salvage may be challenging for her and possibility of a major amputation in there. * The plan is for staged revascularization procedures -> plan LLE first followed by RLE . * Pending revascularization when [facility] shift lab technician is available for booking == next week per notes . Problems: Consultation Date/Type/Reason Admit Date/Time Nov 12, 2016 at 10:06 Initial Consult Date 11/12/16 Type of Consultation: ID Referring Provider: KRISTIN HALL MD Exam/Review of Systems Vital Signs Vitals Vital Signs Date Time Temp Pulse Resp B/P Pulse Ox O2 Delivery O2 Flow Rate FiO2 11/21/16 14:00 98.6 86 18 108/58 96 11/17/16 22:00 Room Air Intake and Output 11/20/16 11/20/16 11/21/16 15:00 23:00 07:00 Intake Total 100 ml 1584 ml 1046 ml Balance 100 ml 1584 ml 1046 ml Results Result Diagram: 11/19/16 0447 11/21/16 0455 Results 24 hrs Laboratory Tests Test 11/21/16 04:55 Sodium Level 139 Potassium Level 3.6 Chloride Level 101 Carbon Dioxide Level 28 Anion Gap 14 Blood Urea Nitrogen 6 L Creatinine 0.58 Glucose Level 92 Calcium Level 8.9 Magnesium Level 1.7 Medications Medications Current Medications Ondansetron HCl (Zofran Inj) 4 mg Q6H PRN IV NAUSEA AND/OR VOMITING; Start at 16:00 Acetaminophen (Tylenol Tab) 650 mg Q6H PRN PO PAIN LEVEL 1-3 OR FEVER; Start at 16:00 Pantoprazole (Protonix Tab) 40 mg DAILY@06 PO Last administered on 11/21/16 05: 09; Admin Dose 40 MG; Start 11/13/16 at 06:00 Enoxaparin Sodium (Lovenox) 30 mg DAILY SC Last administered on 11/21/16 08:09 ; Admin Dose 30 MG; Start 11/13/16 at 09:00 Aspirin (Halfprin) 81 mg DAILY PO Last administered on 11/21/16 08:08; Admin Dose 81 MG; Start 11/13/16 at 09:00 Diltiazem HCl (Cardizem Cd) 180 mg DAILY PO Last administered on 11/21/16 08:10 ; Admin Dose 180 MG; Start 11/13/16 at 09:00 Famotidine (Pepcid) 40 mg HS PO Last administered on 11/20/16 21:06; Admin Dose 40 MG; Start 11/12/16 at 21:00 Folic Acid (Folic Acid) 1 mg DAILY PO Last administered on 11/21/16 08:10; Admin Dose 1 MG; Start 11/13/16 at 09:00 Mycophenolate Mofetil (Cellcept) 1,000 mg BID PO Last administered on 11/21/16 08:09; Admin Dose 1,000 MG; Start 11/12/16 at 21:00 Tacrolimus (Prograf) 2 mg Q12 PO Last administered on 11/21/16 08:09; Admin Dose 2 MG; Start 11/12/16 at 21:00 Citric Acid/ Sodium Citrate (Bicitra) 30 ml TID PO Last administered on 15:23; Admin Dose 30 ML; Start 11/12/16 at 21:00 Acetylcysteine (Nac) 1,200 mg BID PO Last administered on 11/21/16 08:08; Admin Dose 1,200 MG; Start 11/12/16 at 21:00 Metoprolol Tartrate (Lopressor) 75 mg BID PO Last administered on 11/21/16 08: 10; Admin Dose 75 MG; Start 11/12/16 at 21:00 Gabapentin 100 mg 100 mg TID PO Last administered on 11/21/16 15:23; Admin Dose 100 MG; Start 11/12/16 at 21:00 Levofloxacin/ Dextrose (Levaquin 500mg/ D5W 100 ml (Pmx)) 100 ml @ 100 mls/hr Q24H IVPB Last administered on 11/20/16 21:04; Admin Dose 100 MLS/HR; Start at 20:30 Benazepril HCl 10 mg 10 mg BID PO Last administered on 11/15/16 10:34; Admin Dose 10 MG; Start 11/14/16 at 11:00; Status Future Hold Metronidazole 100 ml @ 100 mls/hr Q8 IVPB Last administered on 11/21/16 15:24 ; Admin Dose 100 MLS/HR; Start 11/14/16 at 16:00 Daptomycin/Sodium Chloride (Cubicin/NS) 100 ml @ 200 mls/hr Q24H IVPB Last administered on 11/20/16 19:39; Admin Dose 200 MLS/HR; Start 11/14/16 at 17:00 Zolpidem Tartrate (Ambien) 5 mg HS PRN PO INSOMNIA; Start 11/15/16 at 23:30 Loperamide HCl (Imodium Cap) 2 mg QID PRN PO DIARRHEA Last administered on 11/17 12:51; Admin Dose 2 MG; Start 11/16/16 at 16:00 Morphine Sulfate 2 mg 2 mg Q4H PRN IV SEVERE PAIN LEVEL 7-10 Last administered on 11/21/16 04:28; Admin Dose 2 MG; Start 11/18/16 at 14:30 Sodium Chloride (1/2 NS) 1,000 ml @ 75 mls/hr [id number] IV Last administered on 11/21/16 03:07; Admin Dose 75 MLS/HR; Start 11/19/16 at 07:00 HAMZAH GARZA NP Nov 21, 2016 16:26
[2016-11-21] MEDS: DAPTOMYCIN IVPB SCH (16:43)
[2016-11-21] MEDS: SOD CHLORIDE 0.9% IVPB SCH (16:43)
[2016-11-21 20:28] VITALS: BP 148/72; RESP 18
[2016-11-21] MEDS: LEVOFLOXACIN 500MG/D5W (PMX) 100 ML IVPB SCH (20:55)
[2016-11-21] MEDS: FAMOTIDINE 20 MG TAB PO SCH (20:58)
[2016-11-22] MEDS: morphine 4 MG/ML VIAL IV PRN (02:11)
[2016-11-22 02:53] VITALS: BP 153/72; RESP 18
[2016-11-22] MEDS: metroNIDAZOLE 500 MG/NS (PMX) 100 ML IVPB SCH ×3 (05:23→23:13)
[2016-11-22] MEDS: PANTOPRAZOLE (EC) 40 MG TAB PO SCH (05:23)
[2016-11-22 07:08] LABS: CALCIUM 8.9 mg/dl (8.4-10.2); CREATININE 0.53 mg/dl (0.44-1.00); MAGNESIUM 1.2 mg/dl (1.7-2.5); POTASSIUM 3.9 mmol/L (3.5-5.1)
[2016-11-22 08:31] VITALS: BP 152/72; RESP 17
[2016-11-22] MEDS: TACROLIMUS 1 MG CAP PO SCH ×2 (10:06→20:41)
[2016-11-22] MEDS: CITRIC ACID/NA CITRATE 30 ML CUP PO SCH ×3 (10:06→20:41)
[2016-11-22] MEDS: GABAPENTIN 100 MG CAP PO SCH ×3 (10:06→20:41)
[2016-11-22] MEDS: ACETYLCYSTEINE 600 MG CAP PO SCH ×2 (10:07→20:41)
[2016-11-22] MEDS: FOLIC ACID 1 MG TAB PO SCH (10:07)
[2016-11-22] MEDS: ASPIRIN (EC) 81 MG TAB PO SCH (10:07)
[2016-11-22] MEDS: MYCOPHENOLATE 250 MG CAP PO SCH ×2 (10:07→20:41)
[2016-11-22] MEDS: DILTIAZEM (CD) 180 MG CAP PO SCH (10:08)
[2016-11-22] MEDS: METOPROLOL 25 MG TAB PO SCH ×2 (10:09→20:42)
[2016-11-22] MEDS: ENOXAPARIN 30 MG/0.3 ML SYG SC SCH (10:10)
--- NOTE | 2016-11-22 11:34 | PN ---
Date/Time of Note Date/Time of Note DATE: 11/22/16 TIME: 11:34 Assessment/Plan VTE Prophylaxis VTE Prophylaxis Intervention: LMWH Lines/Catheters IV Catheter Type (from [facility]): Peripheral IV Urinary Cath still in place: No Assessment/Plan Chief Complaint/Hosp Course 1.Significant peripheral vascular disease with bilateral lower extremities gangrene. -Vascular on board and per evaluation, patient has critical limb ischemia of both legs and limb salvage may be challenging for her and possibility of a major amputation in there. Hence the plan is for staged revascularization procedure left lower extremities first followed by right lower extremity. -Continue aspirin, blood pressure management, statin and prophylactic anticoagulation. -ID following. So far cultures have been negative. Defer antibiotics to ID team. 2.H/o kidney transplant: - on immunosuppression with Prograf, CellCept -Nephrology on board and will follow recommendations. 3. Hypertension. -Continue antihypertensives 4. Chronic anemia. -H&H stable. Will monitor. 5. Peripheral neuropathy. -Continue pain medications 6. Persistent hypomagnesemia. Now resolved. DVT prophylaxis: Lovenox PUD prophylaxis: Protonix Plan: We will follow-up with vascular recommendation regarding further vascular interventions-intervention pending secondary to anesthesia availability- possibly early next week. Continue current medical management. Case discussed with . Problems: Subjective 24 Hr Interval Summary Free Text/Dictation HAVING MODERATE PAIN ON LEs, no acute distress. Exam/Review of Systems Vital Signs Vitals Vital Signs Date Time Temp Pulse Resp B/P Pulse Ox O2 Delivery O2 Flow Rate FiO2 11/22/16 08:31 98.7 65 17 152/72 99 Intake and Output 11/21/16 11/21/16 11/22/16 15:00 23:00 07:00 Intake Total 1050 ml 650 ml Balance 1050 ml 650 ml Exam General: Well developed,adequately built, not in any acute distress . HEENT: Normocephalic, Atraumatic, No laceration or hematoma; Eyes: PEERL, Conjunctiva clear, Anicteric sclera Neck: Supple without any lymphadenopathy, nontender, no JVD, no carotid bruits, trachea midline, no thyromegaly Cardiac: S1, S2 auscultated, regular rhythm and rate, no mumurs or gallop Pulmonary: Normal respiratory effort. Chest clear to auscultation bilaterally, no adventitious breath sounds GI: Abdomen normal to inspection. Soft, non tender, non- distended, no masses, no rebound tenderness or guarding. Bowel sounds active on all four quadrants Genitourinary: Deferred Extremities: Gangrenous toes. No cyanosis, clubbing, or edema. Pulses [2+] bilaterally. Full ROM on all four extremities. No focal weakness appreciated. Neurologic: Alert to person, place, time, and situation. Affect appropriate, intact sensation. Skin: Clean,dry, and intact. No ecchymosis, no rashes, or lesions Results Result Diagram: 11/19/167 11/22/16442 Results 24 hrs Laboratory Tests Test 11/22/16 04:43 Sodium Level 141 Potassium Level 3.9 Chloride Level 100 Carbon Dioxide Level 29 Anion Gap 16 Blood Urea Nitrogen 6 L Creatinine 0.53 Glucose Level 83 Calcium Level 8.9 Magnesium Level 1.2 L Creatine Kinase 45 Medications Medications Current Medications Ondansetron HCl (Zofran Inj) 4 mg Q6H PRN IV NAUSEA AND/OR VOMITING; Start at 16:00 Acetaminophen (Tylenol Tab) 650 mg Q6H PRN PO PAIN LEVEL 1-3 OR FEVER; Start at 16:00 Pantoprazole (Protonix Tab) 40 mg DAILY@06 PO Last administered on 11/22/16 05: 23; Admin Dose 40 MG; Start 11/13/16 at 06:00 Enoxaparin Sodium (Lovenox) 30 mg DAILY SC Last administered on 11/22/16 10:10 ; Admin Dose 30 MG; Start 11/13/16 at 09:00 Aspirin (Halfprin) 81 mg DAILY PO Last administered on 11/22/16 10:07; Admin Dose 81 MG; Start 11/13/16 at 09:00 Diltiazem HCl (Cardizem Cd) 180 mg DAILY PO Last administered on 11/22/16 10:08 ; Admin Dose 180 MG; Start 11/13/16 at 09:00 Famotidine (Pepcid) 40 mg HS PO Last administered on 11/21/16 20:58; Admin Dose 40 MG; Start 11/12/16 at 21:00 Folic Acid (Folic Acid) 1 mg DAILY PO Last administered on 11/22/16 10:07; Admin Dose 1 MG; Start 11/13/16 at 09:00 Mycophenolate Mofetil (Cellcept) 1,000 mg BID PO Last administered on 11/22/16 10:07; Admin Dose 1,000 MG; Start 11/12/16 at 21:00 Tacrolimus (Prograf) 2 mg Q12 PO Last administered on 11/22/16 10:06; Admin Dose 2 MG; Start 11/12/16 at 21:00 Citric Acid/ Sodium Citrate (Bicitra) 30 ml TID PO Last administered on 10:06; Admin Dose 30 ML; Start 11/12/16 at 21:00 Acetylcysteine (Nac) 1,200 mg BID PO Last administered on 11/22/16 10:07; Admin Dose 1,200 MG; Start 11/12/16 at 21:00 Metoprolol Tartrate (Lopressor) 75 mg BID PO Last administered on 11/22/16 10: 09; Admin Dose 75 MG; Start 11/12/16 at 21:00 Gabapentin 100 mg 100 mg TID PO Last administered on 11/22/16 10:06; Admin Dose 100 MG; Start 11/12/16 at 21:00 Levofloxacin/ Dextrose (Levaquin 500mg/ D5W 100 ml (Pmx)) 100 ml @ 100 mls/hr Q24H IVPB Last administered on 11/21/16 20:55; Admin Dose 100 MLS/HR; Start at 20:30 Benazepril HCl 10 mg 10 mg BID PO Last administered on 11/15/16 10:34; Admin Dose 10 MG; Start 11/14/16 at 11:00; Status Future Hold Metronidazole 100 ml @ 100 mls/hr Q8 IVPB Last administered on 11/22/16 05:23 ; Admin Dose 100 MLS/HR; Start 11/14/16 at 16:00 Daptomycin/Sodium Chloride (Cubicin/NS) 100 ml @ 200 mls/hr Q24H IVPB Last administered on 11/21/16 16:43; Admin Dose 200 MLS/HR; Start 11/14/16 at 17:00 Zolpidem Tartrate (Ambien) 5 mg HS PRN PO INSOMNIA; Start 11/15/16 at 23:30 Loperamide HCl (Imodium Cap) 2 mg QID PRN PO DIARRHEA Last administered on 11/17 12:51; Admin Dose 2 MG; Start 11/16/16 at 16:00 Morphine Sulfate 2 mg 2 mg Q4H PRN IV SEVERE PAIN LEVEL 7-10 Last administered on 11/22/16 02:11; Admin Dose 2 MG; Start 11/18/16 at 14:30 Sodium Chloride (1/2 NS) 1,000 ml @ 75 mls/hr [id number] IV Last administered on 11/21/16 20:55; Admin Dose 75 MLS/HR; Start 11/19/16 at 07:00 HELEN ANDREWS NP Nov 22, 2016 11:34
--- NOTE | 2016-11-22 13:22 | CONS ---
Date/Time of Note Date/Time of Note DATE: 11/22/16 TIME: 13:20 Assessment/Plan Assessment/Plan Chief Complaint/Hosp Course IMP: 1. Pre-op for LE vascular procedure. Nl EF and no ischemia by lexiscan 11/13 only scar. Ok to proceed with surgery from CV standpoint at moderate risk 2.HTN-uncontrolled 3,CAD 4.PAD with nonhealing LE wounds 5. -moderate by echo this admit Recc: -Now on med-surg -serial ecg's -Continue dilt/BB/ASA -local wound care -pending LE revascularization as staged procedure when anesthesia available and will attempt endovascular approach first Problems: Consultation Date/Type/Reason Admit Date/Time Nov 12, 2016 at 10:06 Initial Consult Date 11/12/16 Type of Consultation: cardiology Reason for Consultation HTN/pre-op Referring Provider: KRISTIN HALL MD Exam/Review of Systems Vital Signs Vitals Vital Signs Date Time Temp Pulse Resp B/P Pulse Ox O2 Delivery O2 Flow Rate FiO2 11/22/16 08:31 98.7 65 17 152/72 99 Intake and Output 11/21/16 11/21/16 11/22/16 15:00 23:00 07:00 Intake Total 1050 ml 650 ml Balance 1050 ml 650 ml Exam Review of Systems: CONSTITUTIONAL: No fevers, chills. PULMONARY: No sob CARDIOVASCULAR: No chest pain/palpitations GASTROINTESTINAL: No nausea/vomiting. GENITOURINARY: No hematuria/dysuria. MUSCULOSKELETAL: No myagias/arthalgias. PSYCHIATRIC: The patient denies depression. NEUROLOGIC: No weakness Constitutional: alert Psych: no complaints Head: normocephalic ENMT: mucosa pink and moist Neck: jvd (9 cm water), supple Respiratory: diminished breath sounds Cardiovascular: regular rate and rhythm Gastrointestinal: non-tender, soft Musculoskeletal: muscle tone Extremities: normal pulses Neurological: other (No focal deficits) Results Result Diagram: 11/19/16 0447 11/22/16 0443 Results 24 hrs Laboratory Tests Test 11/22/16 04:43 Sodium Level 141 Potassium Level 3.9 Chloride Level 100 Carbon Dioxide Level 29 Anion Gap 16 Blood Urea Nitrogen 6 L Creatinine 0.53 Glucose Level 83 Calcium Level 8.9 Magnesium Level 1.2 L Creatine Kinase 45 Medications Medications Current Medications Ondansetron HCl (Zofran Inj) 4 mg Q6H PRN IV NAUSEA AND/OR VOMITING; Start at 16:00 Acetaminophen (Tylenol Tab) 650 mg Q6H PRN PO PAIN LEVEL 1-3 OR FEVER; Start at 16:00 Pantoprazole (Protonix Tab) 40 mg DAILY@06 PO Last administered on 11/22/16 05: 23; Admin Dose 40 MG; Start 11/13/16 at 06:00 Enoxaparin Sodium (Lovenox) 30 mg DAILY SC Last administered on 11/22/16 10:10 ; Admin Dose 30 MG; Start 11/13/16 at 09:00 Aspirin (Halfprin) 81 mg DAILY PO Last administered on 11/22/16 10:07; Admin Dose 81 MG; Start 11/13/16 at 09:00 Diltiazem HCl (Cardizem Cd) 180 mg DAILY PO Last administered on 11/22/16 10:08 ; Admin Dose 180 MG; Start 11/13/16 at 09:00 Famotidine (Pepcid) 40 mg HS PO Last administered on 11/21/16 20:58; Admin Dose 40 MG; Start 11/12/16 at 21:00 Folic Acid (Folic Acid) 1 mg DAILY PO Last administered on 11/22/16 10:07; Admin Dose 1 MG; Start 11/13/16 at 09:00 Mycophenolate Mofetil (Cellcept) 1,000 mg BID PO Last administered on 11/22/16 10:07; Admin Dose 1,000 MG; Start 11/12/16 at 21:00 Tacrolimus (Prograf) 2 mg Q12 PO Last administered on 11/22/16 10:06; Admin Dose 2 MG; Start 11/12/16 at 21:00 Citric Acid/ Sodium Citrate (Bicitra) 30 ml TID PO Last administered on 10:06; Admin Dose 30 ML; Start 11/12/16 at 21:00 Acetylcysteine (Nac) 1,200 mg BID PO Last administered on 11/22/16 10:07; Admin Dose 1,200 MG; Start 11/12/16 at 21:00 Metoprolol Tartrate (Lopressor) 75 mg BID PO Last administered on 11/22/16 10: 09; Admin Dose 75 MG; Start 11/12/16 at 21:00 Gabapentin 100 mg 100 mg TID PO Last administered on 11/22/16 10:06; Admin Dose 100 MG; Start 11/12/16 at 21:00 Levofloxacin/ Dextrose (Levaquin 500mg/ D5W 100 ml (Pmx)) 100 ml @ 100 mls/hr Q24H IVPB Last administered on 11/21/16 20:55; Admin Dose 100 MLS/HR; Start at 20:30 Benazepril HCl 10 mg 10 mg BID PO Last administered on 11/15/16 10:34; Admin Dose 10 MG; Start 11/14/16 at 11:00; Status Future Hold Metronidazole 100 ml @ 100 mls/hr Q8 IVPB Last administered on 11/22/16 05:23 ; Admin Dose 100 MLS/HR; Start 11/14/16 at 16:00 Daptomycin/Sodium Chloride (Cubicin/NS) 100 ml @ 200 mls/hr Q24H IVPB Last administered on 11/21/16 16:43; Admin Dose 200 MLS/HR; Start 11/14/16 at 17:00 Zolpidem Tartrate (Ambien) 5 mg HS PRN PO INSOMNIA; Start 11/15/16 at 23:30 Loperamide HCl (Imodium Cap) 2 mg QID PRN PO DIARRHEA Last administered on 11/17 12:51; Admin Dose 2 MG; Start 11/16/16 at 16:00 Morphine Sulfate 2 mg 2 mg Q4H PRN IV SEVERE PAIN LEVEL 7-10 Last administered on 11/22/16 02:11; Admin Dose 2 MG; Start 11/18/16 at 14:30 Sodium Chloride (1/2 NS) 1,000 ml @ 75 mls/hr [id number] IV Last administered on 11/21/16 20:55; Admin Dose 75 MLS/HR; Start 11/19/16 at 07:00 Acetaminophen/ Hydrocodone Bitart ([place] (5/325)) 1 tab Q6H PRN PO pain; Start 11/22/16 at 12:00 TIMOTHY CORTES Nov 22, 2016 13:22
--- NOTE | 2016-11-22 13:38 | CONS ---
Date/Time of Note Date/Time of Note DATE: 11/22/16 TIME: 13:32 Assessment/Plan Assessment/Plan Additional Assessment/Plan 1. 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 h/o donor kidney transplant in 2009 at [facility], currently on immunosuppression with Prograf, CellCept 4. 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 History of hypertension. 6. History of diabetes mellitus. 7. History of previous left upper extremity arteriovenous fistula. 8. Mild Metabolic acidosis, Hypercalcemia ,Hypokalemia- resolved, Hypomagnesemia - 1.2- mag sulphate 3 gm iv x1, am MaG LEVEL Plan: IV abx as per Infectious disease service continue Bicitra 30ml pO TID for acidosis, Cr normal today. electrolytes replacement as needed whenever vascular plan for intervention,Nurse is instructed to call me to prevent contrast induced nephropathy Continue current immunosuppression with Prograf,CellCept, no prednisone due to hypercalcemia will continue to follow up Consultation Date/Type/Reason Admit Date/Time Nov 12, 2016 at 10:06 Initial Consult Date 11/13/16 Type of Consultation: cardiology Referring Provider: KRISTIN HALL MD 24 HR Interval Summary Free Text/Dictation c/o left leg pain. Plan for LLE vascular procedure on Friday11/26/[address] Maharaj per staff. Dr Briscoe to adjust any medication before procedure. dw staff Exam/Review of Systems Vital Signs Vitals Vital Signs Date Time Temp Pulse Resp B/P Pulse Ox O2 Delivery O2 Flow Rate FiO2 11/22/16 08:31 98.7 65 17 152/72 99 Intake and Output 11/21/16 11/21/16 11/22/16 15:00 23:00 07:00 Intake Total 1050 ml 650 ml Balance 1050 ml 650 ml Exam Constitutional: alert, oriented Respiratory: clear to auscultation, normal air movement Cardiovascular: nl pulses, regular rate and rhythm Gastrointestinal: non-tender, soft Musculoskeletal: other (Bilateral LE gangrene,) Extremities: other (Bilateral LE gangrene,) Neurological: nl mental status, nl speech Skin: other (Bilateral LE gangrene,) Results Result Diagram: 11/19/16 0447 11/22/16 0443 Results 24 hrs Laboratory Tests Test 11/22/16 04:43 Sodium Level 141 Potassium Level 3.9 Chloride Level 100 Carbon Dioxide Level 29 Anion Gap 16 Blood Urea Nitrogen 6 L Creatinine 0.53 Glucose Level 83 Calcium Level 8.9 Magnesium Level 1.2 L Creatine Kinase 45 Medications Medications Current Medications Ondansetron HCl (Zofran Inj) 4 mg Q6H PRN IV NAUSEA AND/OR VOMITING; Start at 16:00 Acetaminophen (Tylenol Tab) 650 mg Q6H PRN PO PAIN LEVEL 1-3 OR FEVER; Start at 16:00 Pantoprazole (Protonix Tab) 40 mg DAILY@06 PO Last administered on 11/22/16 05: 23; Admin Dose 40 MG; Start 11/13/16 at 06:00 Enoxaparin Sodium (Lovenox) 30 mg DAILY SC Last administered on 11/22/16 10:10 ; Admin Dose 30 MG; Start 11/13/16 at 09:00 Aspirin (Halfprin) 81 mg DAILY PO Last administered on 11/22/16 10:07; Admin Dose 81 MG; Start 11/13/16 at 09:00 Diltiazem HCl (Cardizem Cd) 180 mg DAILY PO Last administered on 11/22/16 10:08 ; Admin Dose 180 MG; Start 11/13/16 at 09:00 Famotidine (Pepcid) 40 mg HS PO Last administered on 11/21/16 20:58; Admin Dose 40 MG; Start 11/12/16 at 21:00 Folic Acid (Folic Acid) 1 mg DAILY PO Last administered on 11/22/16 10:07; Admin Dose 1 MG; Start 11/13/16 at 09:00 Mycophenolate Mofetil (Cellcept) 1,000 mg BID PO Last administered on 11/22/16 10:07; Admin Dose 1,000 MG; Start 11/12/16 at 21:00 Tacrolimus (Prograf) 2 mg Q12 PO Last administered on 11/22/16 10:06; Admin Dose 2 MG; Start 11/12/16 at 21:00 Citric Acid/ Sodium Citrate (Bicitra) 30 ml TID PO Last administered on 10:06; Admin Dose 30 ML; Start 11/12/16 at 21:00 Acetylcysteine (Nac) 1,200 mg BID PO Last administered on 11/22/16 10:07; Admin Dose 1,200 MG; Start 11/12/16 at 21:00 Metoprolol Tartrate (Lopressor) 75 mg BID PO Last administered on 11/22/16 10: 09; Admin Dose 75 MG; Start 11/12/16 at 21:00 Gabapentin 100 mg 100 mg TID PO Last administered on 11/22/16 10:06; Admin Dose 100 MG; Start 11/12/16 at 21:00 Levofloxacin/ Dextrose (Levaquin 500mg/ D5W 100 ml (Pmx)) 100 ml @ 100 mls/hr Q24H IVPB Last administered on 11/21/16 20:55; Admin Dose 100 MLS/HR; Start at 20:30 Benazepril HCl 10 mg 10 mg BID PO Last administered on 11/15/16 10:34; Admin Dose 10 MG; Start 11/14/16 at 11:00; Status Future Hold Metronidazole 100 ml @ 100 mls/hr Q8 IVPB Last administered on 11/22/16 05:23 ; Admin Dose 100 MLS/HR; Start 11/14/16 at 16:00 Daptomycin/Sodium Chloride (Cubicin/NS) 100 ml @ 200 mls/hr Q24H IVPB Last administered on 11/21/16 16:43; Admin Dose 200 MLS/HR; Start 11/14/16 at 17:00 Zolpidem Tartrate (Ambien) 5 mg HS PRN PO INSOMNIA; Start 11/15/16 at 23:30 Loperamide HCl (Imodium Cap) 2 mg QID PRN PO DIARRHEA Last administered on 11/17 12:51; Admin Dose 2 MG; Start 11/16/16 at 16:00 Morphine Sulfate 2 mg 2 mg Q4H PRN IV SEVERE PAIN LEVEL 7-10 Last administered on 11/22/16 02:11; Admin Dose 2 MG; Start 11/18/16 at 14:30 Sodium Chloride (1/2 NS) 1,000 ml @ 75 mls/hr [id number] IV Last administered on 11/21/16 20:55; Admin Dose 75 MLS/HR; Start 11/19/16 at 07:00 Acetaminophen/ Hydrocodone Bitart ([place] (5/325)) 1 tab Q6H PRN PO pain; Start 11/22/16 at 12:00 TIM BENNETT Nov 22, 2016 13:38
[2016-11-22] MEDS ORDERED: MAGNESIUM SULFATE 3 GM in SOD CHLORIDE 0.9% 100 ML IVPB SCH (15:00)
[2016-11-22] MEDS: SOD CHLORIDE 0.45% 1,000 ML IV SCH (15:17)
[2016-11-22 15:47] VITALS: BP 132/73; RESP 18
--- NOTE | 2016-11-22 16:03 | CONS ---
Date/Time of Note Date/Time of Note DATE: 11/22/16 TIME: 16:00 Assessment/Plan Assessment/Plan Chief Complaint/Hosp Course ID PROGRESS NOTE CURRENT ABX=> Levaquin IV #9 + Dapto#9 + Flagyl IV #9 TOTAL ABX DAY #11 s/p Vanco PO 11/14-11/16 s/p Clindamycin-> DC"d due to severe diarrhea Vanco IV + Zosyn 11/12 24H INTERVAL SUMMARY * Awake, alert, no new issues, doing OK -- pending vascular intervention to be scheduled next week * Diarrhea resolving -- still has less frequent loose stools which is manageable PHYSICAL EXAMINATION: GENERAL: VSS, NAD HEENT: Unremarkable -- NECK: Supple, trachea midline. CHEST: Rise symmetrical, without dyspnea on observation HEART: Pulse RRR ABDOMEN: Soft, benign EXTREMITIES: Warm -- gangrenous toes ID ASSESSMENT 61 yo F admit with: 1. 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 Severe peripheral vascular disease status post angiogram with angioplasty 3. Hx of donor kidney transplant 2009, on Prograf, CellCept and prednisone. 4. 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 h/o donor kidney transplant in 2009 at [facility], currently on immunosuppression with Prograf, CellCept 6. HTN -> Poorly controlled 7. DM w/complications of DM polyneuropathies: renal, peripheral 8. History of previous left upper extremity arteriovenous fistula. 9. (+)Diarrhea => ABX associated suspect C.Diff => C.Diff toxin (-) after initiation of ABX 10. Hx of Thrombocytopenia FEB admission on Zyvox 11. Hx of CAD, 11/13 Lexiscan MIBI: No reversibility, no new WMA, EF 70% at stress (- )MRSA Nares screening last admit 10/31/15 INVASIVES: PIV, ABX ALLERGY: KNDA CURRENT ABX: =>Levaquin IV #9 + Dapto#9 + Flagyl IV #9 TOTAL ABX DAY #11 s/p Vanco PO 11/14-11/16 s/p Clindamycin-> DC"d due to severe diarrhea Vanco IV + Zosyn 11/12 ID RECOMMENDATIONS=> No Changes to ABX Plan Below: 1. Pt is high risk immunocompromised host 2/2 DM + immunosuppressive renal Tx status 2. Hx of renal insufficiency with Vanco IV in the past, hx of thrombocytopenia w /Zyvox in the past * Dapto 6mg/kg pharmacy may adjust per renal => baseline CPK, ESR,CRP ordered for today, HOLD STATIN while on DAPTO * Flagyl 500mg IVPB daily/ Vanco 125mg Liq PO Q6H=> continue for now * Continue Levaquin 3. Appreciate APC/Vascular note: (+)critical limb ischemia of both legs and limb salvage may be challenging for her and possibility of a major amputation in there. * The plan is for staged revascularization procedures -> plan LLE first followed by RLE . * Pending revascularization when [facility] lab clerk is available for booking == next week per notes . Problems: Consultation Date/Type/Reason Admit Date/Time Nov 12, 2016 at 10:06 Initial Consult Date 11/12/16 Type of Consultation: ID Referring Provider: KRISTIN HALL MD Exam/Review of Systems Vital Signs Vitals Vital Signs Date Time Temp Pulse Resp B/P Pulse Ox O2 Delivery O2 Flow Rate FiO2 11/22/16 15:47 98.6 63 18 132/73 100 Intake and Output 11/21/16 11/21/16 11/22/16 15:00 23:00 07:00 Intake Total 1050 ml 650 ml Balance 1050 ml 650 ml Results Result Diagram: 11/19/16 0447 11/22/16 0443 Results 24 hrs Laboratory Tests Test 11/22/16 04:43 Sodium Level 141 Potassium Level 3.9 Chloride Level 100 Carbon Dioxide Level 29 Anion Gap 16 Blood Urea Nitrogen 6 L Creatinine 0.53 Glucose Level 83 Calcium Level 8.9 Magnesium Level 1.2 L Creatine Kinase 45 Medications Medications Current Medications Ondansetron HCl (Zofran Inj) 4 mg Q6H PRN IV NAUSEA AND/OR VOMITING; Start at 16:00 Acetaminophen (Tylenol Tab) 650 mg Q6H PRN PO PAIN LEVEL 1-3 OR FEVER; Start at 16:00 Pantoprazole (Protonix Tab) 40 mg DAILY@06 PO Last administered on 11/22/16 05: 23; Admin Dose 40 MG; Start 11/13/16 at 06:00 Enoxaparin Sodium (Lovenox) 30 mg DAILY SC Last administered on 11/22/16 10:10 ; Admin Dose 30 MG; Start 11/13/16 at 09:00 Aspirin (Halfprin) 81 mg DAILY PO Last administered on 11/22/16 10:07; Admin Dose 81 MG; Start 11/13/16 at 09:00 Diltiazem HCl (Cardizem Cd) 180 mg DAILY PO Last administered on 11/22/16 10:08 ; Admin Dose 180 MG; Start 11/13/16 at 09:00 Famotidine (Pepcid) 40 mg HS PO Last administered on 11/21/16 20:58; Admin Dose 40 MG; Start 11/12/16 at 21:00 Folic Acid (Folic Acid) 1 mg DAILY PO Last administered on 11/22/16 10:07; Admin Dose 1 MG; Start 11/13/16 at 09:00 Mycophenolate Mofetil (Cellcept) 1,000 mg BID PO Last administered on 11/22/16 10:07; Admin Dose 1,000 MG; Start 11/12/16 at 21:00 Tacrolimus (Prograf) 2 mg Q12 PO Last administered on 11/22/16 10:06; Admin Dose 2 MG; Start 11/12/16 at 21:00 Citric Acid/ Sodium Citrate (Bicitra) 30 ml TID PO Last administered on 15:17; Admin Dose 30 ML; Start 11/12/16 at 21:00 Acetylcysteine (Nac) 1,200 mg BID PO Last administered on 11/22/16 10:07; Admin Dose 1,200 MG; Start 11/12/16 at 21:00 Metoprolol Tartrate (Lopressor) 75 mg BID PO Last administered on 11/22/16 10: 09; Admin Dose 75 MG; Start 11/12/16 at 21:00 Gabapentin 100 mg 100 mg TID PO Last administered on 11/22/16 15:17; Admin Dose 100 MG; Start 11/12/16 at 21:00 Levofloxacin/ Dextrose (Levaquin 500mg/ D5W 100 ml (Pmx)) 100 ml @ 100 mls/hr Q24H IVPB Last administered on 11/21/16 20:55; Admin Dose 100 MLS/HR; Start at 20:30 Benazepril HCl 10 mg 10 mg BID PO Last administered on 11/15/16 10:34; Admin Dose 10 MG; Start 11/14/16 at 11:00; Status Future Hold Metronidazole 100 ml @ 100 mls/hr Q8 IVPB Last administered on 11/22/16 15:17 ; Admin Dose 100 MLS/HR; Start 11/14/16 at 16:00 Daptomycin/Sodium Chloride (Cubicin/NS) 100 ml @ 200 mls/hr Q24H IVPB Last administered on 11/21/16 16:43; Admin Dose 200 MLS/HR; Start 11/14/16 at 17:00 Zolpidem Tartrate (Ambien) 5 mg HS PRN PO INSOMNIA; Start 11/15/16 at 23:30 Loperamide HCl (Imodium Cap) 2 mg QID PRN PO DIARRHEA Last administered on 11/17 12:51; Admin Dose 2 MG; Start 11/16/16 at 16:00 Morphine Sulfate 2 mg 2 mg Q4H PRN IV SEVERE PAIN LEVEL 7-10 Last administered on 11/22/16 02:11; Admin Dose 2 MG; Start 11/18/16 at 14:30 Sodium Chloride (1/2 NS) 1,000 ml @ 75 mls/hr [id number] IV Last administered on 11/22/16 15:17; Admin Dose 75 MLS/HR; Start 11/19/16 at 07:00 Acetaminophen/ Hydrocodone Bitart 1 tab 1 tab Q6H PRN PO pain; Start 11/22/16 at 12:00 Magnesium Sulfate/ Sodium Chloride (Magnesium Sulfate/NS) 106 ml @ 35.333 mls/ hr ONCE IVPB ; Start 11/22/16 at 15:00; Stop 11/22/16 at 17:59 HAMZAH GARZA NP Nov 22, 2016 16:03
[2016-11-22] MEDS: DAPTOMYCIN IVPB SCH (18:13)
[2016-11-22] MEDS: SOD CHLORIDE 0.9% IVPB SCH (18:13)
[2016-11-22] MEDS: HYDROCODONE/APAP (5/325) TAB PO PRN (18:18)
[2016-11-22 19:33] VITALS: BP 141/72; RESP 20
[2016-11-22] MEDS: FAMOTIDINE 20 MG TAB PO SCH (20:41)
[2016-11-22] MEDS: LEVOFLOXACIN 500MG/D5W (PMX) 100 ML IVPB SCH (22:08)
[2016-11-23] MEDS: HYDROCODONE/APAP (5/325) TAB PO PRN ×4 (01:34→22:03)
[2016-11-23 02:04] VITALS: BP 115/58; RESP 18
[2016-11-23] MEDS: SOD CHLORIDE 0.45% 1,000 ML IV SCH ×2 (04:20→13:27)
[2016-11-23] MEDS: PANTOPRAZOLE (EC) 40 MG TAB PO SCH (05:08)
[2016-11-23] MEDS: metroNIDAZOLE 500 MG/NS (PMX) 100 ML IVPB SCH ×3 (05:08→22:06)
[2016-11-23 06:44] LABS: BASOPHILS % 0.2 % (0.0-2.0); EOSINOPHILS # 0.1 10^3/ul (0.0-0.5); EOSINOPHILS % 1.3 % (0.0-7.0); HEMATOCRIT 29.4 % (37.0-47.0); HEMOGLOBIN 9.1 g/dl (12.0-16.0); LYMPHOCYTES # 0.9 10^3/ul (0.8-2.9); LYMPHOCYTES % 18.5 % (15.0-51.0); MEAN CORPUSCULAR HEMOGLOBIN 26.8 pg (29.0-33.0); MEAN CORPUSCULAR VOLUME 86.5 fl (82.0-101.0); MEAN PLATELET VOLUME 12.4 fl (7.4-10.4); MONOCYTE # 0.8 10^3/ul (0.3-0.9); MONOCYTES % 16.3 % (0.0-11.0); NEUTROPHIL # 2.9 10^3/ul (1.6-7.5); NEUTROPHILS % 63.5 % (39.0-77.0); PLATELET COUNT 190 10^3/UL (140-415); RED CELL DISTRIBUTION WIDTH 14.8 % (11.5-14.5); WHITE BLOOD COUNT 4.6 10^3/ul (4.8-10.8)
[2016-11-23 07:01] LABS: CALCIUM 8.8 mg/dl (8.4-10.2); CREATININE 0.64 mg/dl (0.44-1.00); MAGNESIUM 1.8 mg/dl (1.7-2.5); POTASSIUM 3.9 mmol/L (3.5-5.1)
[2016-11-23 08:16] VITALS: BP 138/69; RESP 18
[2016-11-23] MEDS: CITRIC ACID/NA CITRATE 30 ML CUP PO SCH ×3 (08:44→22:00)
[2016-11-23] MEDS: GABAPENTIN 100 MG CAP PO SCH ×3 (08:44→22:03)
[2016-11-23] MEDS: MYCOPHENOLATE 250 MG CAP PO SCH ×2 (08:45→22:10)
[2016-11-23] MEDS: METOPROLOL 25 MG TAB PO SCH ×2 (08:45→22:05)
[2016-11-23] MEDS: ACETYLCYSTEINE 600 MG CAP PO SCH ×2 (08:45→22:05)
[2016-11-23] MEDS: ASPIRIN (EC) 81 MG TAB PO SCH (08:45)
[2016-11-23] MEDS: FOLIC ACID 1 MG TAB PO SCH (08:45)
[2016-11-23] MEDS: ENOXAPARIN 30 MG/0.3 ML SYG SC SCH (08:46)
[2016-11-23] MEDS: TACROLIMUS 1 MG CAP PO SCH ×2 (08:46→22:01)
[2016-11-23] MEDS: DILTIAZEM (CD) 180 MG CAP PO SCH (08:47)
--- NOTE | 2016-11-23 12:20 | PN ---
Date/Time of Note Date/Time of Note DATE: 11/23/16 TIME: 12:16 Assessment/Plan VTE Prophylaxis VTE Prophylaxis Intervention: heparin Lines/Catheters IV Catheter Type (from [facility]): Peripheral IV Urinary Cath still in place: No Assessment/Plan Problems: (1) Diabetes mellitus type 2 with complications Status: Chronic Comment: Patient had an excellent A1c coming into the hospital and is remained well controlled. Please note much of this is due to her diligence and also the changes in her physiology after all the problems she has had. 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 Please see their notes for the plans for a stage procedure as soon as they can get enough support. (4) Peripheral vascular disease Status: Chronic Comment: As per vascular surgery staged interventions as she can be supported. (5) Status post kidney transplant Status: Chronic Comment: She is already on an acid heel cysteine for protection. She will continue with nephrology assisting and continue on her antirejection medications Subjective 24 Hr Interval Summary Free Text/Dictation Patient sitting in bed able to converse easily. Constitutional: no complaints (Denies fevers chills or sweats) Respiratory: no complaints Cardiovascular: no complaints Gastrointestinal: no complaints Genitourinary: no complaints Exam/Review of Systems Vital Signs Vitals Vital Signs Date Time Temp Pulse Resp B/P Pulse Ox O2 Delivery O2 Flow Rate FiO2 11/23/16 08:16 98.0 60 18 138/69 100 Intake and Output 11/22/16 11/22/16 11/23/16 15:00 23:00 07:00 Intake Total 550 ml 446 ml 1050 ml Balance 550 ml 446 ml 1050 ml Exam Constitutional: alert, oriented Respiratory: clear to auscultation, normal air movement Cardiovascular: regular rate and rhythm Extremities: other (Decreased pulses with bilateral gangrene (dry) especially of the fifth toes and fourth toes. Left leg is worse than right leg.) Results Result Diagram: 11/23/16 0540 11/23/16 0542 Results 24 hrs Laboratory Tests Test 11/23/16 05:40 11/23/16 05:42 White Blood Count 4.6 L Red Blood Count 3.40 L Hemoglobin 9.1 L Hematocrit 29.4 L Mean Corpuscular Volume 86.5 Mean Corpuscular Hemoglobin 26.8 L Mean Corpuscular Hemoglobin Concent 31.0 L Red Cell Distribution Width 14.8 H Platelet Count 190 Mean Platelet Volume 12.4 H Neutrophils % 63.5 Lymphocytes % 18.5 Monocytes % 16.3 H Eosinophils % 1.3 Basophils % 0.2 Nucleated Red Blood Cells % 0.0 Neutrophils # 2.9 Lymphocytes # 0.9 Monocytes # 0.8 Eosinophils # 0.1 Basophils # 0.0 Nucleated Red Blood Cells # 0.0 Sodium Level 142 Potassium Level 3.9 Chloride Level 99 Carbon Dioxide Level 31 Anion Gap 16 Blood Urea Nitrogen 5 L Creatinine 0.64 Glucose Level 91 Calcium Level 8.8 Magnesium Level 1.8 Medications Medications Current Medications Ondansetron HCl (Zofran Inj) 4 mg Q6H PRN IV NAUSEA AND/OR VOMITING; Start at 16:00 Acetaminophen (Tylenol Tab) 650 mg Q6H PRN PO PAIN LEVEL 1-3 OR FEVER; Start at 16:00 Pantoprazole (Protonix Tab) 40 mg DAILY@06 PO Last administered on 11/23/16 05: 08; Admin Dose 40 MG; Start 11/13/16 at 06:00 Enoxaparin Sodium (Lovenox) 30 mg DAILY SC Last administered on 11/23/16 08:46 ; Admin Dose 30 MG; Start 11/13/16 at 09:00 Aspirin (Halfprin) 81 mg DAILY PO Last administered on 11/23/16 08:45; Admin Dose 81 MG; Start 11/13/16 at 09:00 Diltiazem HCl (Cardizem Cd) 180 mg DAILY PO Last administered on 11/23/16 08:47 ; Admin Dose 180 MG; Start 11/13/16 at 09:00 Famotidine (Pepcid) 40 mg HS PO Last administered on 11/22/16 20:41; Admin Dose 40 MG; Start 11/12/16 at 21:00 Folic Acid (Folic Acid) 1 mg DAILY PO Last administered on 11/23/16 08:45; Admin Dose 1 MG; Start 11/13/16 at 09:00 Mycophenolate Mofetil (Cellcept) 1,000 mg BID PO Last administered on 11/23/16 08:45; Admin Dose 1,000 MG; Start 11/12/16 at 21:00 Tacrolimus (Prograf) 2 mg Q12 PO Last administered on 11/23/16 08:46; Admin Dose 2 MG; Start 11/12/16 at 21:00 Citric Acid/ Sodium Citrate (Bicitra) 30 ml TID PO Last administered on 08:44; Admin Dose 30 ML; Start 11/12/16 at 21:00 Acetylcysteine (Nac) 1,200 mg BID PO Last administered on 11/23/16 08:45; Admin Dose 1,200 MG; Start 11/12/16 at 21:00 Metoprolol Tartrate (Lopressor) 75 mg BID PO Last administered on 11/23/16 08: 45; Admin Dose 75 MG; Start 11/12/16 at 21:00 Gabapentin 100 mg 100 mg TID PO Last administered on 11/23/16 08:44; Admin Dose 100 MG; Start 11/12/16 at 21:00 Levofloxacin/ Dextrose (Levaquin 500mg/ D5W 100 ml (Pmx)) 100 ml @ 100 mls/hr Q24H IVPB Last administered on 11/22/16 22:08; Admin Dose 100 MLS/HR; Start at 20:30 Benazepril HCl 10 mg 10 mg BID PO Last administered on 11/15/16 10:34; Admin Dose 10 MG; Start 11/14/16 at 11:00; Status Future Hold Metronidazole 100 ml @ 100 mls/hr Q8 IVPB Last administered on 11/23/16 05:08 ; Admin Dose 100 MLS/HR; Start 11/14/16 at 16:00 Daptomycin/Sodium Chloride (Cubicin/NS) 100 ml @ 200 mls/hr Q24H IVPB Last administered on 11/22/16 18:13; Admin Dose 200 MLS/HR; Start 11/14/16 at 17:00 Zolpidem Tartrate (Ambien) 5 mg HS PRN PO INSOMNIA; Start 11/15/16 at 23:30 Loperamide HCl 2 mg 2 mg QID PRN PO DIARRHEA Last administered on 11/17/16 12: 51; Admin Dose 2 MG; Start 11/16/16 at 16:00 Sodium Chloride (1/2 NS) 1,000 ml @ 75 mls/hr [id number] IV Last administered on 11/22/16 15:17; Admin Dose 75 MLS/HR; Start 11/19/16 at 07:00 Acetaminophen/ Hydrocodone Bitart ([place] (5/325)) 1 tab Q6H PRN PO pain Last administered on 11/23/16 08:50; Admin Dose 1 TAB; Start 11/22/16 at 12:00 Morphine Sulfate (morphine) 2 mg Q4H PRN IV SEVERE PAIN LEVEL 7-10; Start at 12:00 KRISTEN ZIMMERMAN MD Nov 23, 2016 12:20
--- NOTE | 2016-11-23 12:29 | PN ---
Date/Time of Note Date/Time of Note DATE: 11/23/16 TIME: 12:26 Assessment/Plan Lines/Catheters IV Catheter Type (from [facility]): Peripheral IV [place] in Place (from [facility]): No Assessment/Plan Chief Complaint/Hosp Course -Bilateral lower extremity atherosclerosis with bilateral foot gangrene: It seems that the patient's has progression of her significant infrainguinal atherosclerotic disease and upon CT angiography there is extensive infrainguinal disease bilaterally and will require intervention. Unfortunately she has no vein conduit to perform limb salvage revascularization and being chronically immunosuppressed secondary to her kidney transplant limits performing bypass with upper extremity vein graft. Therefore, will plan on staged procedures with endovascular interventions with anesthesia as she would like to be completely anesthetized during her procedures. At the moment anesthesia is not available in the cardiac cath tech till early next week. Will continue to keep trying and request for availability. Will attempt in the OR on Friday -Will need adequate renal hydration prior to intervention -Our interventions will be coordinated with our multidisciplinary team as she would need to be monitored for her preservation of kidney transplant and contrast dosing -Optimize vascular status (BP medications, diet, nutrition and exercise, sugar control, antiplatelets). -Continue with antibiotics for the gangrene. -Podiatry colleagues are involved with the local wound care and will plan to determine the best option course for the patient as she would like to have everything done to provide her adequate limb salvage. -Appreciate Cardiology evaluation -Discussed findings, plan and management with the patient with a certified vp ad sales west and she understands that there is great concern as she has critical limb ischemia of both legs and limb salvage may be challenging for her and possibility of a major amputation in there -Thank you for allowing us to partake in the care of your patient. Please call with any questions. Problems: Subjective 24 Hr Interval Summary no new vascular events overnight Exam/Review of Systems Vital Signs Vitals Vital Signs Date Time Temp Pulse Resp B/P Pulse Ox O2 Delivery O2 Flow Rate FiO2 11/23/16 08:16 98.0 60 18 138/69 100 Intake and Output 11/22/16 11/22/16 11/23/16 15:00 23:00 07:00 Intake Total 550 ml 446 ml 1050 ml Balance 550 ml 446 ml 1050 ml Exam Free Text/Dictation Alert and oriented x3. LUNGS: Clear to auscultation bilaterally CARDIOVASCULAR: S1 and S2 present. ABDOMEN: Soft, nontender and nondistended. Bowel sounds positive. Surgical scar well healed. EXTREMITIES: Right lower extremity faint femoral pulse. Nonpalpable pedal pulse. Motor and sensory intact. Capillary refill 4 seconds. Gangrene of the fifth toe amputation stump. Left lower extremity faint femoral pulse. Nonpalpable pedal pulse. Motor and sensory intact. Capillary refill 4 seconds. Tenderness improved first toe with gangrene. Fourth and fifth toe amputation stump gangrene. Results Result Diagram: 11/23/16 0540 11/23/16 0542 WILD DUARTE MD Nov 23, 2016 12:29
--- NOTE | 2016-11-23 12:35 | CONS ---
Date/Time of Note Date/Time of Note DATE: 11/23/16 TIME: 12:23 Assessment/Plan Assessment/Plan Additional Assessment/Plan 1. 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 h/o donor kidney transplant in 2009 at [facility], currently on immunosuppression with Prograf, CellCept 4. 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 History of hypertension. 6. History of diabetes mellitus. 7. History of previous left upper extremity arteriovenous fistula. 8. Mild Metabolic acidosis, 9. Electrolyte imbalance- Hypercalcemia- resolved ,Hypokalemia- resolved, Hypomagnesemia- resolved Plan: IV abx as per Infectious disease service continue bicitra 30ml pO TID for acidosis, Cr normal today. electrolytes replacement as needed whenever vascular plan for intervention,Nurse is instructed to call me to prevent contrast induced nephropathy Continue current immunosuppresion with prograf,cellcept, no prednisone due to hypercalcemia will continue to follow up Further treatment depends upon patient's clinical presentation. Plan of care dw Dr Mary Briscoe. Consultation Date/Type/Reason Admit Date/Time Nov 12, 2016 at 10:06 Initial Consult Date 11/13/16 Type of Consultation: ID Referring Provider: KRISTIN HALL MD 24 HR Interval Summary Free Text/Dictation afebrile, c/o left leg pain but its more controlled today. Plan for LLE vascular procedure on Friday11/26/[address] Maharaj per staff. Dr Briscoe to adjust any medication before procedure. dw staff Exam/Review of Systems Vital Signs Vitals Vital Signs Date Time Temp Pulse Resp B/P Pulse Ox O2 Delivery O2 Flow Rate FiO2 11/23/16 08:16 98.0 60 18 138/69 100 Intake and Output 11/22/16 11/22/16 11/23/16 15:00 23:00 07:00 Intake Total 550 ml 446 ml 1050 ml Balance 550 ml 446 ml 1050 ml Exam Constitutional: alert, oriented, well developed Respiratory: clear to auscultation, normal air movement Cardiovascular: nl pulses, regular rate and rhythm Gastrointestinal: non-tender, soft Musculoskeletal: other Neurological: nl mental status, nl speech Skin: other (BLE Gangrene, Foot cradle noted.) Results Result Diagram: 11/23/16 0540 11/23/16 0542 Results 24 hrs Laboratory Tests Test 11/23/16 05:40 11/23/16 05:42 White Blood Count 4.6 L Red Blood Count 3.40 L Hemoglobin 9.1 L Hematocrit 29.4 L Mean Corpuscular Volume 86.5 Mean Corpuscular Hemoglobin 26.8 L Mean Corpuscular Hemoglobin Concent 31.0 L Red Cell Distribution Width 14.8 H Platelet Count 190 Mean Platelet Volume 12.4 H Neutrophils % 63.5 Lymphocytes % 18.5 Monocytes % 16.3 H Eosinophils % 1.3 Basophils % 0.2 Nucleated Red Blood Cells % 0.0 Neutrophils # 2.9 Lymphocytes # 0.9 Monocytes # 0.8 Eosinophils # 0.1 Basophils # 0.0 Nucleated Red Blood Cells # 0.0 Sodium Level 142 Potassium Level 3.9 Chloride Level 99 Carbon Dioxide Level 31 Anion Gap 16 Blood Urea Nitrogen 5 L Creatinine 0.64 Glucose Level 91 Calcium Level 8.8 Magnesium Level 1.8 Medications Medications Current Medications Ondansetron HCl (Zofran Inj) 4 mg Q6H PRN IV NAUSEA AND/OR VOMITING; Start at 16:00 Acetaminophen (Tylenol Tab) 650 mg Q6H PRN PO PAIN LEVEL 1-3 OR FEVER; Start at 16:00 Pantoprazole (Protonix Tab) 40 mg DAILY@06 PO Last administered on 11/23/16 05: 08; Admin Dose 40 MG; Start 11/13/16 at 06:00 Enoxaparin Sodium (Lovenox) 30 mg DAILY SC Last administered on 11/23/16 08:46 ; Admin Dose 30 MG; Start 11/13/16 at 09:00 Aspirin (Halfprin) 81 mg DAILY PO Last administered on 11/23/16 08:45; Admin Dose 81 MG; Start 11/13/16 at 09:00 Diltiazem HCl (Cardizem Cd) 180 mg DAILY PO Last administered on 11/23/16 08:47 ; Admin Dose 180 MG; Start 11/13/16 at 09:00 Famotidine (Pepcid) 40 mg HS PO Last administered on 11/22/16 20:41; Admin Dose 40 MG; Start 11/12/16 at 21:00 Folic Acid (Folic Acid) 1 mg DAILY PO Last administered on 11/23/16 08:45; Admin Dose 1 MG; Start 11/13/16 at 09:00 Mycophenolate Mofetil (Cellcept) 1,000 mg BID PO Last administered on 11/23/16 08:45; Admin Dose 1,000 MG; Start 11/12/16 at 21:00 Tacrolimus (Prograf) 2 mg Q12 PO Last administered on 11/23/16 08:46; Admin Dose 2 MG; Start 11/12/16 at 21:00 Citric Acid/ Sodium Citrate (Bicitra) 30 ml TID PO Last administered on 08:44; Admin Dose 30 ML; Start 11/12/16 at 21:00 Acetylcysteine (Nac) 1,200 mg BID PO Last administered on 11/23/16 08:45; Admin Dose 1,200 MG; Start 11/12/16 at 21:00 Metoprolol Tartrate (Lopressor) 75 mg BID PO Last administered on 11/23/16 08: 45; Admin Dose 75 MG; Start 11/12/16 at 21:00 Gabapentin 100 mg 100 mg TID PO Last administered on 11/23/16 08:44; Admin Dose 100 MG; Start 11/12/16 at 21:00 Levofloxacin/ Dextrose (Levaquin 500mg/ D5W 100 ml (Pmx)) 100 ml @ 100 mls/hr Q24H IVPB Last administered on 11/22/16 22:08; Admin Dose 100 MLS/HR; Start at 20:30 Benazepril HCl 10 mg 10 mg BID PO Last administered on 11/15/16 10:34; Admin Dose 10 MG; Start 11/14/16 at 11:00; Status Future Hold Metronidazole 100 ml @ 100 mls/hr Q8 IVPB Last administered on 11/23/16 05:08 ; Admin Dose 100 MLS/HR; Start 11/14/16 at 16:00 Daptomycin/Sodium Chloride (Cubicin/NS) 100 ml @ 200 mls/hr Q24H IVPB Last administered on 11/22/16 18:13; Admin Dose 200 MLS/HR; Start 11/14/16 at 17:00 Zolpidem Tartrate (Ambien) 5 mg HS PRN PO INSOMNIA; Start 11/15/16 at 23:30 Loperamide HCl 2 mg 2 mg QID PRN PO DIARRHEA Last administered on 11/17/16 12: 51; Admin Dose 2 MG; Start 11/16/16 at 16:00 Sodium Chloride (1/2 NS) 1,000 ml @ 75 mls/hr [id number] IV Last administered on 11/22/16 15:17; Admin Dose 75 MLS/HR; Start 11/19/16 at 07:00 Acetaminophen/ Hydrocodone Bitart ([place] (5/325)) 1 tab Q6H PRN PO pain Last administered on 11/23/16 08:50; Admin Dose 1 TAB; Start 11/22/16 at 12:00 Morphine Sulfate (morphine) 2 mg Q4H PRN IV SEVERE PAIN LEVEL 7-10; Start at 12:00 TIM BNENETT Nov 23, 2016 12:34
--- NOTE | 2016-11-23 13:55 | CONS ---
Date/Time of Note Date/Time of Note DATE: 11/23/16 TIME: 13:49 Assessment/Plan Assessment/Plan Additional Assessment/Plan CAD PAD s/p Kidney Transplant Awaiting revascularization Continue metoprolol and diltiazem Continue Tacrolimus and CellCept Continue Antibiotics Continue GI and DVT Prophylaxis Consultation Date/Type/Reason Admit Date/Time Nov 12, 2016 at 10:06 Constitutional: no complaints (Denies fevers chills or sweats) Eyes: no complaints, No discharge, No other, No pain, No redness, No visual change ENT: no complaints, No bleeding, No congestion, No discharge, No dysphagia, No other, No pain, No sore throat Respiratory: no complaints Cardiovascular: no complaints Gastrointestinal: no complaints Genitourinary: no complaints Musculoskeletal: other (left lower leg pain, with gangrene ) Skin: skin lesions Neurologic: no complaints Endocrine: no complaints Lymphatic: no complaints Psychological: no complaints Immunologic: no complaints Past Medical History Medical History: coronary artery disease, high cholesterol, hypertension, other (peripheral vascular diseasea, atherosclerosis ) Past Surgical History Past Surgical Hx: other (Bilatearal Toe amputation, H/o Kideny transplatn in 2009) Social History Alcohol Use: none Smoking Status: Never smoker Drug Use: none Exam/Review of Systems Vital Signs Vitals Vital Signs Date Time Temp Pulse Resp B/P Pulse Ox O2 Delivery O2 Flow Rate FiO2 11/23/16 08:16 98.0 60 18 138/69 100 Intake and Output 11/22/16 11/22/16 11/23/16 14:59 22:59 06:59 Intake Total 996 ml 1050 ml Balance 996 ml 1050 ml Exam Psych: no complaints Head: atraumatic, normocephalic Respiratory: clear to auscultation Cardiovascular: regular rate and rhythm Gastrointestinal: nl liver, spleen, non-tender, soft Extremities: other (Gangrene 5th toe amputation stump.Fourth and fifth toe amputation stump ) Results Result Diagram: 11/23/16 0540 11/23/16 0542 Results 24 hrs Laboratory Tests Test 11/23/16 05:40 11/23/16 05:42 White Blood Count 4.6 L Red Blood Count 3.40 L Hemoglobin 9.1 L Hematocrit 29.4 L Mean Corpuscular Volume 86.5 Mean Corpuscular Hemoglobin 26.8 L Mean Corpuscular Hemoglobin Concent 31.0 L Red Cell Distribution Width 14.8 H Platelet Count 190 Mean Platelet Volume 12.4 H Neutrophils % 63.5 Lymphocytes % 18.5 Monocytes % 16.3 H Eosinophils % 1.3 Basophils % 0.2 Nucleated Red Blood Cells % 0.0 Neutrophils # 2.9 Lymphocytes # 0.9 Monocytes # 0.8 Eosinophils # 0.1 Basophils # 0.0 Nucleated Red Blood Cells # 0.0 Sodium Level 142 Potassium Level 3.9 Chloride Level 99 Carbon Dioxide Level 31 Anion Gap 16 Blood Urea Nitrogen 5 L Creatinine 0.64 Glucose Level 91 Calcium Level 8.8 Magnesium Level 1.8 Medications Medications Current Medications Ondansetron HCl (Zofran Inj) 4 mg Q6H PRN IV NAUSEA AND/OR VOMITING; Start at 16:00 Acetaminophen (Tylenol Tab) 650 mg Q6H PRN PO PAIN LEVEL 1-3 OR FEVER; Start at 16:00 Pantoprazole (Protonix Tab) 40 mg DAILY@06 PO Last administered on 11/23/16 05: 08; Admin Dose 40 MG; Start 11/13/16 at 06:00 Enoxaparin Sodium (Lovenox) 30 mg DAILY SC Last administered on 11/23/16 08:46 ; Admin Dose 30 MG; Start 11/13/16 at 09:00 Aspirin (Halfprin) 81 mg DAILY PO Last administered on 11/23/16 08:45; Admin Dose 81 MG; Start 11/13/16 at 09:00 Diltiazem HCl (Cardizem Cd) 180 mg DAILY PO Last administered on 11/23/16 08:47 ; Admin Dose 180 MG; Start 11/13/16 at 09:00 Famotidine (Pepcid) 40 mg HS PO Last administered on 11/22/16 20:41; Admin Dose 40 MG; Start 11/12/16 at 21:00 Folic Acid (Folic Acid) 1 mg DAILY PO Last administered on 11/23/16 08:45; Admin Dose 1 MG; Start 11/13/16 at 09:00 Mycophenolate Mofetil (Cellcept) 1,000 mg BID PO Last administered on 11/23/16 08:45; Admin Dose 1,000 MG; Start 11/12/16 at 21:00 Tacrolimus (Prograf) 2 mg Q12 PO Last administered on 11/23/16 08:46; Admin Dose 2 MG; Start 11/12/16 at 21:00 Citric Acid/ Sodium Citrate (Bicitra) 30 ml TID PO Last administered on 13:23; Admin Dose 30 ML; Start 11/12/16 at 21:00 Acetylcysteine (Nac) 1,200 mg BID PO Last administered on 11/23/16 08:45; Admin Dose 1,200 MG; Start 11/12/16 at 21:00 Metoprolol Tartrate (Lopressor) 75 mg BID PO Last administered on 11/23/16 08: 45; Admin Dose 75 MG; Start 11/12/16 at 21:00 Gabapentin 100 mg 100 mg TID PO Last administered on 11/23/16 13:23; Admin Dose 100 MG; Start 11/12/16 at 21:00 Levofloxacin/ Dextrose (Levaquin 500mg/ D5W 100 ml (Pmx)) 100 ml @ 100 mls/hr Q24H IVPB Last administered on 11/22/16 22:08; Admin Dose 100 MLS/HR; Start at 20:30 Benazepril HCl 10 mg 10 mg BID PO Last administered on 11/15/16 10:34; Admin Dose 10 MG; Start 11/14/16 at 11:00; Status Future Hold Metronidazole 100 ml @ 100 mls/hr Q8 IVPB Last administered on 11/23/16 13:24 ; Admin Dose 100 MLS/HR; Start 11/14/16 at 16:00 Daptomycin/Sodium Chloride (Cubicin/NS) 100 ml @ 200 mls/hr Q24H IVPB Last administered on 11/22/16 18:13; Admin Dose 200 MLS/HR; Start 11/14/16 at 17:00 Zolpidem Tartrate (Ambien) 5 mg HS PRN PO INSOMNIA; Start 11/15/16 at 23:30 Loperamide HCl 2 mg 2 mg QID PRN PO DIARRHEA Last administered on 11/17/16 12: 51; Admin Dose 2 MG; Start 11/16/16 at 16:00 Sodium Chloride (1/2 NS) 1,000 ml @ 75 mls/hr [id number] IV Last administered on 11/23/16 13:27; Admin Dose 75 MLS/HR; Start 11/19/16 at 07:00 Acetaminophen/ Hydrocodone Bitart ([place] (5/325)) 1 tab Q6H PRN PO pain Last administered on 11/23/16 08:50; Admin Dose 1 TAB; Start 11/22/16 at 12:00 Morphine Sulfate (morphine) 2 mg Q4H PRN IV SEVERE PAIN LEVEL 7-10; Start at 12:00 ALVARO SERRANO M.D. Nov 23, 2016 13:55
[2016-11-23 14:00] VITALS: BP 99/55; RESP 18
[2016-11-23] MEDS: DAPTOMYCIN IVPB SCH (17:49)
[2016-11-23] MEDS: SOD CHLORIDE 0.9% IVPB SCH (17:49)
[2016-11-23 20:00] VITALS: BP 117/62; RESP 20
[2016-11-23] MEDS: FAMOTIDINE 20 MG TAB PO SCH (22:04)
[2016-11-23] MEDS: LEVOFLOXACIN 500MG/D5W (PMX) 100 ML IVPB SCH (22:12)
[2016-11-24 02:00] VITALS: BP 113/64; RESP 20
[2016-11-24] MEDS: HYDROCODONE/APAP (5/325) TAB PO PRN ×3 (04:43→19:54)
[2016-11-24] MEDS: metroNIDAZOLE 500 MG/NS (PMX) 100 ML IVPB SCH ×3 (05:11→21:53)
[2016-11-24] MEDS: PANTOPRAZOLE (EC) 40 MG TAB PO SCH (05:11)
[2016-11-24 06:33] LABS: ABNORMAL IP MESSAGE 1; BASOPHILS % 0.4 % (0.0-2.0); EOSINOPHILS # 0.1 10^3/ul (0.0-0.5); EOSINOPHILS % 1.4 % (0.0-7.0); HEMATOCRIT 30.1 % (37.0-47.0); HEMOGLOBIN 9.3 g/dl (12.0-16.0); LYMPHOCYTES # 0.9 10^3/ul (0.8-2.9); LYMPHOCYTES % 18.8 % (15.0-51.0); MEAN CORPUSCULAR HEMOGLOBIN 26.6 pg (29.0-33.0); MEAN CORPUSCULAR HGB CONC 30.9 g/dl (32.0-37.0); MEAN PLATELET VOLUME 13.1 fl (7.4-10.4); MONOCYTE # 0.7 10^3/ul (0.3-0.9); MONOCYTES % 13.9 % (0.0-11.0); NEUTROPHIL # 3.2 10^3/ul (1.6-7.5); NEUTROPHILS % 65.3 % (39.0-77.0); PLATELET COUNT 175 10^3/UL (140-415); RED CELL DISTRIBUTION WIDTH 14.8 % (11.5-14.5)
[2016-11-24 06:43] LABS: CALCIUM 8.7 mg/dl (8.4-10.2); CREATININE 0.59 mg/dl (0.44-1.00); POTASSIUM 3.8 mmol/L (3.5-5.1)
[2016-11-24 06:51] LABS: POSITIVE DIFF @See below
[2016-11-24] MEDS: SOD CHLORIDE 0.45% 1,000 ML IV SCH ×2 (07:00→09:30)
[2016-11-24 08:17] VITALS: BP 125/63; RESP 16
[2016-11-24] MEDS: TACROLIMUS 1 MG CAP PO SCH (09:00)
[2016-11-24] MEDS: CITRIC ACID/NA CITRATE 30 ML CUP PO SCH ×3 (09:24→22:24)
[2016-11-24] MEDS: ACETYLCYSTEINE 600 MG CAP PO SCH ×2 (09:24→21:51)
[2016-11-24] MEDS: MYCOPHENOLATE 250 MG CAP PO SCH ×2 (09:25→21:52)
[2016-11-24] MEDS: METOPROLOL 25 MG TAB PO SCH ×2 (09:25→21:53)
[2016-11-24] MEDS: GABAPENTIN 100 MG CAP PO SCH ×3 (09:25→21:52)
[2016-11-24] MEDS: DILTIAZEM (CD) 180 MG CAP PO SCH (09:26)
[2016-11-24] MEDS: ASPIRIN (EC) 81 MG TAB PO SCH (09:26)
[2016-11-24] MEDS: FOLIC ACID 1 MG TAB PO SCH (09:26)
[2016-11-24] MEDS: ENOXAPARIN 30 MG/0.3 ML SYG SC SCH (09:28)
[2016-11-24] MEDS: TACROLIMUS 0.5 MG CAP PO SCH ×2 (12:10→22:26)
--- NOTE | 2016-11-24 12:39 | PN ---
Date/Time of Note Date/Time of Note DATE: 11/24/16 TIME: 12:37 Assessment/Plan VTE Prophylaxis VTE Prophylaxis Intervention: heparin Lines/Catheters IV [facility]ter Type (from [facility] Peripheral IV Urinary Cath still in place: No Assessment/Plan Problems: (1) Status post kidney transplant Status: Chronic Comment: Nephrology is actively following the patient to do the most protective maneuvers possible. She is on Mucomyst in preparation for staged vascular intervention. 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 She has had some surgical debridement. After revascularization this will allow for more definitive debridements which should be hopefully more limited (5) Peripheral vascular disease Status: Chronic Comment: Please see notes from vascular surgery we are awaiting availability of anesthesia to coordinate. This is what is the delay Subjective 24 Hr Interval Summary Free Text/Dictation Patient reports that her pain is generally fair. Approximately 3-4 out of 10. No fevers chills or sweats Constitutional: no complaints Respiratory: no complaints Cardiovascular: no complaints Gastrointestinal: no complaints Genitourinary: no complaints Exam/Review of Systems Vital Signs Vitals Vital Signs Date Time Temp Pulse Resp B/P Pulse Ox O2 Delivery O2 Flow Rate FiO2 11/24/16 08:17 97.8 63 16 125/63 100 Intake and Output 11/23/16 11/23/16 11/24/16 15:00 23:00 07:00 Intake Total 510 ml 820 ml 1305 ml Balance 510 ml 820 ml 1305 ml Exam Constitutional: alert, oriented Neck: non-tender, supple Respiratory: clear to auscultation, normal air movement Cardiovascular: nl pulses, regular rate and rhythm Extremities: other (No change) Results Result Diagram: 11/24/16 0506 11/24/16 0506 Results 24 hrs Laboratory Tests Test 11/24/16 05:06 White Blood Count 5.0 Red Blood Count 3.50 L Hemoglobin 9.3 L Hematocrit 30.1 L Mean Corpuscular Volume 86.0 Mean Corpuscular Hemoglobin 26.6 L Mean Corpuscular Hemoglobin Concent 30.9 L Red Cell Distribution Width 14.8 H Platelet Count 175 Mean Platelet Volume 13.1 H Neutrophils % 65.3 Lymphocytes % 18.8 Monocytes % 13.9 H Eosinophils % 1.4 Basophils % 0.4 Nucleated Red Blood Cells % 0.0 Neutrophils # 3.2 Lymphocytes # 0.9 Monocytes # 0.7 Eosinophils # 0.1 Basophils # 0.0 Nucleated Red Blood Cells # 0.0 Sodium Level 142 Potassium Level 3.8 Chloride Level 100 Carbon Dioxide Level 29 Anion Gap 17 H Blood Urea Nitrogen 6 L Creatinine 0.59 Glucose Level 79 Calcium Level 8.7 Medications Medications Current Medications Ondansetron HCl (Zofran Inj) 4 mg Q6H PRN IV NAUSEA AND/OR VOMITING; Start at 16:00 Acetaminophen (Tylenol Tab) 650 mg Q6H PRN PO PAIN LEVEL 1-3 OR FEVER; Start at 16:00 Pantoprazole (Protonix Tab) 40 mg DAILY@06 PO Last administered on 11/24/16 05: 11; Admin Dose 40 MG; Start 11/13/16 at 06:00 Enoxaparin Sodium (Lovenox) 30 mg DAILY SC Last administered on 11/24/16 09:28 ; Admin Dose 30 MG; Start 11/13/16 at 09:00 Aspirin (Halfprin) 81 mg DAILY PO Last administered on 11/24/16 09:26; Admin Dose 81 MG; Start 11/13/16 at 09:00 Diltiazem HCl (Cardizem Cd) 180 mg DAILY PO Last administered on 11/24/16 09:26 ; Admin Dose 180 MG; Start 11/13/16 at 09:00 Famotidine (Pepcid) 40 mg HS PO Last administered on 11/23/16 22:04; Admin Dose 40 MG; Start 11/12/16 at 21:00 Folic Acid (Folic Acid) 1 mg DAILY PO Last administered on 11/24/16 09:26; Admin Dose 1 MG; Start 11/13/16 at 09:00 Mycophenolate Mofetil (Cellcept) 1,000 mg BID PO Last administered on 11/24/16 09:25; Admin Dose 1,000 MG; Start 11/12/16 at 21:00 Citric Acid/ Sodium Citrate (Bicitra) 30 ml TID PO Last administered on 12:09; Admin Dose 30 ML; Start 11/12/16 at 21:00 Acetylcysteine (Nac) 1,200 mg BID PO Last administered on 11/24/16 09:24; Admin Dose 1,200 MG; Start 11/12/16 at 21:00 Metoprolol Tartrate (Lopressor) 75 mg BID PO Last administered on 11/24/16 09: 25; Admin Dose 75 MG; Start 11/12/16 at 21:00 Gabapentin 100 mg 100 mg TID PO Last administered on 11/24/16 12:09; Admin Dose 100 MG; Start 11/12/16 at 21:00 Levofloxacin/ Dextrose (Levaquin 500mg/ D5W 100 ml (Pmx)) 100 ml @ 100 mls/hr Q24H IVPB Last administered on 11/23/16 22:12; Admin Dose 100 MLS/HR; Start at 20:30 Benazepril HCl 10 mg 10 mg BID PO Last administered on 11/15/16 10:34; Admin Dose 10 MG; Start 11/14/16 at 11:00; Status Future Hold Metronidazole 100 ml @ 100 mls/hr Q8 IVPB Last administered on 11/24/16 05:11 ; Admin Dose 100 MLS/HR; Start 11/14/16 at 16:00 Daptomycin/Sodium Chloride (Cubicin/NS) 100 ml @ 200 mls/hr Q24H IVPB Last administered on 11/23/16 17:49; Admin Dose 200 MLS/HR; Start 11/14/16 at 17:00 Zolpidem Tartrate (Ambien) 5 mg HS PRN PO INSOMNIA; Start 11/15/16 at 23:30 Loperamide HCl 2 mg 2 mg QID PRN PO DIARRHEA Last administered on 11/17/16 12: 51; Admin Dose 2 MG; Start 11/16/16 at 16:00 Sodium Chloride (1/2 NS) 1,000 ml @ 75 mls/hr [id number] IV Last administered on 11/24/16 09:30; Admin Dose 75 MLS/HR; Start 11/19/16 at 07:00 Acetaminophen/ Hydrocodone Bitart ([place] (5/325)) 1 tab Q6H PRN PO pain Last administered on 11/24/16 12:13; Admin Dose 1 TAB; Start 11/22/16 at 12:00 Morphine Sulfate (morphine) 2 mg Q4H PRN IV SEVERE PAIN LEVEL 7-10; Start at 12:00 Tacrolimus (Prograf) 2 mg Q12 PO Last administered on 11/24/16 12:10; Admin Dose 2 MG; Start 11/24/16 at 10:00 KRISTEN ZIMMERMAN MD Nov 24, 2016 12:39
--- NOTE | 2016-11-24 13:13 | CONS ---
Date/Time of Note Date/Time of Note DATE: 11/24/16 TIME: 13:12 Assessment/Plan Assessment/Plan Additional Assessment/Plan 1. 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 h/o donor kidney transplant in 2009 at [facility], currently on immunosuppression with Prograf, CellCept 4. 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 History of hypertension. 6. History of diabetes mellitus. 7. History of previous left upper extremity arteriovenous fistula. 8. Mild Metabolic acidosis, 9. Electrolyte imbalance- Hypercalcemia- resolved ,Hypokalemia- resolved, Hypomagnesemia- resolved Plan: IV abx as per Infectious disease service continue bicitra 30ml pO TID for acidosis, Cr normal today. electrolytes replacement as needed whenever vascular plan for intervention,Nurse is instructed to call me to prevent contrast induced nephropathy Continue current immunosuppresion with prograf,cellcept, no prednisone due to hypercalcemia will continue to follow up Further treatment depends upon patient's clinical presentation. Plan of care dw Dr Mary Briscoe. Consultation Date/Type/Reason Admit Date/Time Nov 12, 2016 at 10:06 Initial Consult Date 11/13/16 Type of Consultation: ID Referring Provider: KRISTIN HALL MD 24 HR Interval Summary Free Text/Dictation afebrile, c/o left leg pain, Plan for LLE vascular procedure on Friday by Dr Maharaj per staff. Dr Briscoe to adjust any medication before procedure. dw staff Exam/Review of Systems Vital Signs Vitals Vital Signs Date Time Temp Pulse Resp B/P Pulse Ox O2 Delivery O2 Flow Rate FiO2 11/24/16 08:17 97.8 63 16 125/63 100 Intake and Output 11/23/16 11/23/16 11/24/16 14:59 22:59 06:59 Intake Total 510 ml 820 ml 1305 ml Balance 510 ml 820 ml 1305 ml Exam Constitutional: alert, oriented Respiratory: clear to auscultation, normal air movement Cardiovascular: nl pulses, regular rate and rhythm Gastrointestinal: non-tender, soft Musculoskeletal: other Extremities: other Neurological: nl mental status, nl speech Skin: other (BLE gangrene) Results Result Diagram: 11/24/16 0506 11/24/16 0506 Results 24 hrs Laboratory Tests Test 11/24/16 05:06 White Blood Count 5.0 Red Blood Count 3.50 L Hemoglobin 9.3 L Hematocrit 30.1 L Mean Corpuscular Volume 86.0 Mean Corpuscular Hemoglobin 26.6 L Mean Corpuscular Hemoglobin Concent 30.9 L Red Cell Distribution Width 14.8 H Platelet Count 175 Mean Platelet Volume 13.1 H Neutrophils % 65.3 Lymphocytes % 18.8 Monocytes % 13.9 H Eosinophils % 1.4 Basophils % 0.4 Nucleated Red Blood Cells % 0.0 Neutrophils # 3.2 Lymphocytes # 0.9 Monocytes # 0.7 Eosinophils # 0.1 Basophils # 0.0 Nucleated Red Blood Cells # 0.0 Sodium Level 142 Potassium Level 3.8 Chloride Level 100 Carbon Dioxide Level 29 Anion Gap 17 H Blood Urea Nitrogen 6 L Creatinine 0.59 Glucose Level 79 Calcium Level 8.7 Medications Medications Current Medications Ondansetron HCl (Zofran Inj) 4 mg Q6H PRN IV NAUSEA AND/OR VOMITING; Start at 16:00 Acetaminophen (Tylenol Tab) 650 mg Q6H PRN PO PAIN LEVEL 1-3 OR FEVER; Start at 16:00 Pantoprazole (Protonix Tab) 40 mg DAILY@06 PO Last administered on 11/24/16 05: 11; Admin Dose 40 MG; Start 11/13/16 at 06:00 Enoxaparin Sodium (Lovenox) 30 mg DAILY SC Last administered on 11/24/16 09:28 ; Admin Dose 30 MG; Start 11/13/16 at 09:00 Aspirin (Halfprin) 81 mg DAILY PO Last administered on 11/24/16 09:26; Admin Dose 81 MG; Start 11/13/16 at 09:00 Diltiazem HCl (Cardizem Cd) 180 mg DAILY PO Last administered on 11/24/16 09:26 ; Admin Dose 180 MG; Start 11/13/16 at 09:00 Famotidine (Pepcid) 40 mg HS PO Last administered on 11/23/16 22:04; Admin Dose 40 MG; Start 11/12/16 at 21:00 Folic Acid (Folic Acid) 1 mg DAILY PO Last administered on 11/24/16 09:26; Admin Dose 1 MG; Start 11/13/16 at 09:00 Mycophenolate Mofetil (Cellcept) 1,000 mg BID PO Last administered on 11/24/16 09:25; Admin Dose 1,000 MG; Start 11/12/16 at 21:00 Citric Acid/ Sodium Citrate (Bicitra) 30 ml TID PO Last administered on 12:09; Admin Dose 30 ML; Start 11/12/16 at 21:00 Acetylcysteine (Nac) 1,200 mg BID PO Last administered on 11/24/16 09:24; Admin Dose 1,200 MG; Start 11/12/16 at 21:00 Metoprolol Tartrate (Lopressor) 75 mg BID PO Last administered on 11/24/16 09: 25; Admin Dose 75 MG; Start 11/12/16 at 21:00 Gabapentin 100 mg 100 mg TID PO Last administered on 11/24/16 12:09; Admin Dose 100 MG; Start 11/12/16 at 21:00 Levofloxacin/ Dextrose (Levaquin 500mg/ D5W 100 ml (Pmx)) 100 ml @ 100 mls/hr Q24H IVPB Last administered on 11/23/16 22:12; Admin Dose 100 MLS/HR; Start at 20:30 Benazepril HCl 10 mg 10 mg BID PO Last administered on 11/15/16 10:34; Admin Dose 10 MG; Start 11/14/16 at 11:00; Status Future Hold Metronidazole 100 ml @ 100 mls/hr Q8 IVPB Last administered on 11/24/16 05:11 ; Admin Dose 100 MLS/HR; Start 11/14/16 at 16:00 Daptomycin/Sodium Chloride (Cubicin/NS) 100 ml @ 200 mls/hr Q24H IVPB Last administered on 11/23/16 17:49; Admin Dose 200 MLS/HR; Start 11/14/16 at 17:00 Zolpidem Tartrate (Ambien) 5 mg HS PRN PO INSOMNIA; Start 11/15/16 at 23:30 Loperamide HCl 2 mg 2 mg QID PRN PO DIARRHEA Last administered on 11/17/16 12: 51; Admin Dose 2 MG; Start 11/16/16 at 16:00 Sodium Chloride (1/2 NS) 1,000 ml @ 75 mls/hr [id number] IV Last administered on 11/24/16 09:30; Admin Dose 75 MLS/HR; Start 11/19/16 at 07:00 Acetaminophen/ Hydrocodone Bitart ([place] (5/325)) 1 tab Q6H PRN PO pain Last administered on 11/24/16 12:13; Admin Dose 1 TAB; Start 11/22/16 at 12:00 Morphine Sulfate (morphine) 2 mg Q4H PRN IV SEVERE PAIN LEVEL 7-10; Start at 12:00 Tacrolimus (Prograf) 2 mg Q12 PO Last administered on 11/24/16 12:10; Admin Dose 2 MG; Start 11/24/16 at 10:00 TIM BENNETT Nov 24, 2016 13:13
--- NOTE | 2016-11-24 14:29 | CONS ---
Date/Time of Note Date/Time of Note DATE: 11/24/16 TIME: 14:27 Assessment/Plan Assessment/Plan Additional Assessment/Plan Coronary artery disease Aortic Stenosis PAD s/p Kidney Transplant Hemodynamically stable Awaiting revascularization Continue metoprolol and diltiazem Continue Tacrolimus and CellCept Continue Antibiotics Continue GI and DVT Prophylaxis Consultation Date/Type/Reason Admit Date/Time Nov 12, 2016 at 10:06 Initial Consult Date 11/13/16 Type of Consultation: ID Referring Provider: KRISTIN HALL MD Exam/Review of Systems Vital Signs Vitals Vital Signs Date Time Temp Pulse Resp B/P Pulse Ox O2 Delivery O2 Flow Rate FiO2 11/24/16 08:17 97.8 63 16 125/63 100 Intake and Output 11/23/16 11/23/16 11/24/16 15:00 23:00 07:00 Intake Total 510 ml 820 ml 1305 ml Balance 510 ml 820 ml 1305 ml Exam Head: atraumatic, normocephalic Respiratory: clear to auscultation Cardiovascular: regular rate and rhythm Gastrointestinal: nl liver, spleen, non-tender, soft Extremities: other (Gangrene 5th toe amputation stump.Fourth and fifth toe amputation stump ) Results Result Diagram: 11/24/16 0506 11/24/16 0506 Results 24 hrs Laboratory Tests Test 11/24/16 05:06 White Blood Count 5.0 Red Blood Count 3.50 L Hemoglobin 9.3 L Hematocrit 30.1 L Mean Corpuscular Volume 86.0 Mean Corpuscular Hemoglobin 26.6 L Mean Corpuscular Hemoglobin Concent 30.9 L Red Cell Distribution Width 14.8 H Platelet Count 175 Mean Platelet Volume 13.1 H Neutrophils % 65.3 Lymphocytes % 18.8 Monocytes % 13.9 H Eosinophils % 1.4 Basophils % 0.4 Nucleated Red Blood Cells % 0.0 Neutrophils # 3.2 Lymphocytes # 0.9 Monocytes # 0.7 Eosinophils # 0.1 Basophils # 0.0 Nucleated Red Blood Cells # 0.0 Sodium Level 142 Potassium Level 3.8 Chloride Level 100 Carbon Dioxide Level 29 Anion Gap 17 H Blood Urea Nitrogen 6 L Creatinine 0.59 Glucose Level 79 Calcium Level 8.7 Medications Medications Current Medications Ondansetron HCl (Zofran Inj) 4 mg Q6H PRN IV NAUSEA AND/OR VOMITING; Start at 16:00 Acetaminophen (Tylenol Tab) 650 mg Q6H PRN PO PAIN LEVEL 1-3 OR FEVER; Start at 16:00 Pantoprazole (Protonix Tab) 40 mg DAILY@06 PO Last administered on 11/24/16 05: 11; Admin Dose 40 MG; Start 11/13/16 at 06:00 Enoxaparin Sodium (Lovenox) 30 mg DAILY SC Last administered on 11/24/16 09:28 ; Admin Dose 30 MG; Start 11/13/16 at 09:00 Aspirin (Halfprin) 81 mg DAILY PO Last administered on 11/24/16 09:26; Admin Dose 81 MG; Start 11/13/16 at 09:00 Diltiazem HCl (Cardizem Cd) 180 mg DAILY PO Last administered on 11/24/16 09:26 ; Admin Dose 180 MG; Start 11/13/16 at 09:00 Famotidine (Pepcid) 40 mg HS PO Last administered on 11/23/16 22:04; Admin Dose 40 MG; Start 11/12/16 at 21:00 Folic Acid (Folic Acid) 1 mg DAILY PO Last administered on 11/24/16 09:26; Admin Dose 1 MG; Start 11/13/16 at 09:00 Mycophenolate Mofetil (Cellcept) 1,000 mg BID PO Last administered on 11/24/16 09:25; Admin Dose 1,000 MG; Start 11/12/16 at 21:00 Citric Acid/ Sodium Citrate (Bicitra) 30 ml TID PO Last administered on 12:09; Admin Dose 30 ML; Start 11/12/16 at 21:00 Acetylcysteine (Nac) 1,200 mg BID PO Last administered on 11/24/16 09:24; Admin Dose 1,200 MG; Start 11/12/16 at 21:00 Metoprolol Tartrate (Lopressor) 75 mg BID PO Last administered on 11/24/16 09: 25; Admin Dose 75 MG; Start 11/12/16 at 21:00 Gabapentin 100 mg 100 mg TID PO Last administered on 11/24/16 12:09; Admin Dose 100 MG; Start 11/12/16 at 21:00 Levofloxacin/ Dextrose (Levaquin 500mg/ D5W 100 ml (Pmx)) 100 ml @ 100 mls/hr Q24H IVPB Last administered on 11/23/16 22:12; Admin Dose 100 MLS/HR; Start at 20:30 Benazepril HCl 10 mg 10 mg BID PO Last administered on 11/15/16 10:34; Admin Dose 10 MG; Start 11/14/16 at 11:00; Status Future Hold Metronidazole 100 ml @ 100 mls/hr Q8 IVPB Last administered on 11/24/16 05:11 ; Admin Dose 100 MLS/HR; Start 11/14/16 at 16:00 Daptomycin/Sodium Chloride (Cubicin/NS) 100 ml @ 200 mls/hr Q24H IVPB Last administered on 11/23/16 17:49; Admin Dose 200 MLS/HR; Start 11/14/16 at 17:00 Zolpidem Tartrate (Ambien) 5 mg HS PRN PO INSOMNIA; Start 11/15/16 at 23:30 Loperamide HCl 2 mg 2 mg QID PRN PO DIARRHEA Last administered on 11/17/16 12: 51; Admin Dose 2 MG; Start 11/16/16 at 16:00 Sodium Chloride (1/2 NS) 1,000 ml @ 75 mls/hr [id number] IV Last administered on 11/24/16 09:30; Admin Dose 75 MLS/HR; Start 11/19/16 at 07:00 Acetaminophen/ Hydrocodone Bitart ([place] (5/325)) 1 tab Q6H PRN PO pain Last administered on 11/24/16 12:13; Admin Dose 1 TAB; Start 11/22/16 at 12:00 Morphine Sulfate (morphine) 2 mg Q4H PRN IV SEVERE PAIN LEVEL 7-10; Start at 12:00 Tacrolimus (Prograf) 2 mg Q12 PO Last administered on 11/24/16 12:10; Admin Dose 2 MG; Start 11/24/16 at 10:00 ALVARO SERRANO M.D. Nov 24, 2016 14:29
[2016-11-24 14:38] VITALS: BP 116/64; RESP 18
[2016-11-24] MEDS: SOD CHLORIDE 0.9% IVPB SCH (17:32)
[2016-11-24] MEDS: DAPTOMYCIN IVPB SCH (17:32)
[2016-11-24 21:48] VITALS: BP 125/60; RESP 18
[2016-11-24] MEDS: LEVOFLOXACIN 500MG/D5W (PMX) 100 ML IVPB SCH (21:51)
[2016-11-24] MEDS: FAMOTIDINE 20 MG TAB PO SCH (21:52)
[2016-11-25 02:34] VITALS: BP 122/62; RESP 18
[2016-11-25] MEDS: HYDROCODONE/APAP (5/325) TAB PO PRN ×2 (02:56→10:35)
[2016-11-25] MEDS: SOD CHLORIDE 0.45% 1,000 ML IV SCH ×2 (02:58→17:22)
[2016-11-25 05:32] LABS: BASOPHILS % 0.2 % (0.0-2.0); EOSINOPHILS # 0.1 10^3/ul (0.0-0.5); EOSINOPHILS % 1.3 % (0.0-7.0); HEMATOCRIT 31.6 % (37.0-47.0); HEMOGLOBIN 9.8 g/dl (12.0-16.0); LYMPHOCYTES # 0.8 10^3/ul (0.8-2.9); LYMPHOCYTES % 13.3 % (15.0-51.0); MEAN CORPUSCULAR HEMOGLOBIN 27.2 pg (29.0-33.0); MEAN CORPUSCULAR VOLUME 87.8 fl (82.0-101.0); MEAN PLATELET VOLUME 12.6 fl (7.4-10.4); MONOCYTE # 0.9 10^3/ul (0.3-0.9); MONOCYTES % 14.1 % (0.0-11.0); NEUTROPHIL # 4.4 10^3/ul (1.6-7.5); NEUTROPHILS % 70.8 % (39.0-77.0); PLATELET COUNT 213 10^3/UL (140-415); RED CELL DISTRIBUTION WIDTH 14.7 % (11.5-14.5); WHITE BLOOD COUNT 6.2 10^3/ul (4.8-10.8)
[2016-11-25 06:06] LABS: CALCIUM 8.7 mg/dl (8.4-10.2); CREATININE 0.61 mg/dl (0.44-1.00); POTASSIUM 4.1 mmol/L (3.5-5.1)
[2016-11-25] MEDS: metroNIDAZOLE 500 MG/NS (PMX) 100 ML IVPB SCH ×3 (06:22→22:46)
[2016-11-25] MEDS: PANTOPRAZOLE (EC) 40 MG TAB PO SCH (06:22)
[2016-11-25 08:20] VITALS: BP 139/75; RESP 16
--- NOTE | 2016-11-25 09:22 | CONS ---
Date/Time of Note Date/Time of Note DATE: 11/25/16 TIME: 09:21 Assessment/Plan Assessment/Plan Additional Assessment/Plan 1. Pre-op for LE vascular procedure. Nl EF and no ischemia by lexiscan 11/13 only scar- per Dr. Powell, Mod - Ok for surgery, moderate risk. NO CP now. Surgical team follows. 2.HTN-uncontrolled - con't to adjust Rx - will monitor - BETTER 3,CAD - no CP now, no ischemi patrick Stress test 11/13 - no Cp noted 4.PAD with nonhealing LE wounds - vascular to follow, wound care in place 5. -moderate by ECHo.- no intervention planned now - stable by exam Consultation Date/Type/Reason Admit Date/Time Nov 12, 2016 at 10:06 Initial Consult Date 11/13/16 Type of Consultation: ID Referring Provider: KRISTIN HALL MD 24 HR Interval Summary Free Text/Dictation NO acute events - no CP, dispo plan in place ROS: No fever, no chills, no nausea, no vomiting, no diarrhea/constipation No recent weight changes No chest pain, no PND, no orthopnea No dizziness, blurred vision No thirst, no heat or cold intolerance Exam/Review of Systems Vital Signs Vitals Vital Signs Date Time Temp Pulse Resp B/P Pulse Ox O2 Delivery O2 Flow Rate FiO2 11/25/16 08:20 98.2 60 16 139/75 100 Intake and Output 11/24/16 11/24/16 11/25/16 15:00 23:00 07:00 Intake Total 1560 ml 1520 ml Balance 1560 ml 1520 ml Exam General: WN/WD/NAD, AOx 3 HEENT: Unicetric/atraumatic/EOMI (follow commands) NECK: JVD elevated, no thyromegaly Lymph: no lymphadenopathy HEART: regular with no S3, II/ systolic murmur at apex LUNGS: Coarse sounds ABD: soft, NT, ND, +BS : Intact Neuro: non focal SKIN: chronic changes EXT: trace edema, pAD Results Result Diagram: 11/25/16 0450 11/25/16 0444 Results 24 hrs Laboratory Tests Test 11/25/16 04:44 11/25/16 04:50 Sodium Level 142 Potassium Level 4.1 Chloride Level 101 Carbon Dioxide Level 28 Anion Gap 17 H Blood Urea Nitrogen 6 L Creatinine 0.61 Glucose Level 97 Calcium Level 8.7 White Blood Count 6.2 # Red Blood Count 3.60 L Hemoglobin 9.8 L Hematocrit 31.6 L Mean Corpuscular Volume 87.8 Mean Corpuscular Hemoglobin 27.2 L Mean Corpuscular Hemoglobin Concent 31.0 L Red Cell Distribution Width 14.7 H Platelet Count 213 # Mean Platelet Volume 12.6 H Neutrophils % 70.8 Lymphocytes % 13.3 L Monocytes % 14.1 H Eosinophils % 1.3 Basophils % 0.2 Nucleated Red Blood Cells % 0.0 Neutrophils # 4.4 Lymphocytes # 0.8 Monocytes # 0.9 Eosinophils # 0.1 Basophils # 0.0 Nucleated Red Blood Cells # 0.0 Medications Medications Current Medications Ondansetron HCl (Zofran Inj) 4 mg Q6H PRN IV NAUSEA AND/OR VOMITING; Start at 16:00 Acetaminophen (Tylenol Tab) 650 mg Q6H PRN PO PAIN LEVEL 1-3 OR FEVER; Start at 16:00 Pantoprazole (Protonix Tab) 40 mg DAILY@06 PO Last administered on 11/25/16 06: 22; Admin Dose 40 MG; Start 11/13/16 at 06:00 Enoxaparin Sodium (Lovenox) 30 mg DAILY SC Last administered on 11/24/16 09:28 ; Admin Dose 30 MG; Start 11/13/16 at 09:00 Aspirin (Halfprin) 81 mg DAILY PO Last administered on 11/24/16 09:26; Admin Dose 81 MG; Start 11/13/16 at 09:00 Diltiazem HCl (Cardizem Cd) 180 mg DAILY PO Last administered on 11/24/16 09:26 ; Admin Dose 180 MG; Start 11/13/16 at 09:00 Famotidine (Pepcid) 40 mg HS PO Last administered on 11/24/16 21:52; Admin Dose 40 MG; Start 11/12/16 at 21:00 Folic Acid (Folic Acid) 1 mg DAILY PO Last administered on 11/24/16 09:26; Admin Dose 1 MG; Start 11/13/16 at 09:00 Mycophenolate Mofetil (Cellcept) 1,000 mg BID PO Last administered on 11/24/16 21:52; Admin Dose 1,000 MG; Start 11/12/16 at 21:00 Citric Acid/ Sodium Citrate (Bicitra) 30 ml TID PO Last administered on 22:24; Admin Dose 30 ML; Start 11/12/16 at 21:00 Acetylcysteine (Nac) 1,200 mg BID PO Last administered on 11/24/16 21:51; Admin Dose 1,200 MG; Start 11/12/16 at 21:00 Metoprolol Tartrate (Lopressor) 75 mg BID PO Last administered on 11/24/16 21: 53; Admin Dose 75 MG; Start 11/12/16 at 21:00 Gabapentin 100 mg 100 mg TID PO Last administered on 11/24/16 21:52; Admin Dose 100 MG; Start 11/12/16 at 21:00 Levofloxacin/ Dextrose (Levaquin 500mg/ D5W 100 ml (Pmx)) 100 ml @ 100 mls/hr Q24H IVPB Last administered on 11/24/16 21:51; Admin Dose 100 MLS/HR; Start at 20:30 Benazepril HCl 10 mg 10 mg BID PO Last administered on 11/15/16 10:34; Admin Dose 10 MG; Start 11/14/16 at 11:00; Status Future Hold Metronidazole 100 ml @ 100 mls/hr Q8 IVPB Last administered on 11/25/16 06:22 ; Admin Dose 100 MLS/HR; Start 11/14/16 at 16:00 Daptomycin/Sodium Chloride (Cubicin/NS) 100 ml @ 200 mls/hr Q24H IVPB Last administered on 11/24/16 17:32; Admin Dose 200 MLS/HR; Start 11/14/16 at 17:00 Zolpidem Tartrate (Ambien) 5 mg HS PRN PO INSOMNIA; Start 11/15/16 at 23:30 Loperamide HCl 2 mg 2 mg QID PRN PO DIARRHEA Last administered on 11/17/16 12: 51; Admin Dose 2 MG; Start 11/16/16 at 16:00 Sodium Chloride (1/2 NS) 1,000 ml @ 75 mls/hr [id number] IV Last administered on 11/25/16 02:58; Admin Dose 75 MLS/HR; Start 11/19/16 at 07:00 Acetaminophen/ Hydrocodone Bitart ([place] (5/325)) 1 tab Q6H PRN PO pain Last administered on 11/25/16 02:56; Admin Dose 1 TAB; Start 11/22/16 at 12:00 Morphine Sulfate (morphine) 2 mg Q4H PRN IV SEVERE PAIN LEVEL 7-10; Start at 12:00 Tacrolimus (Prograf) 2 mg Q12 PO Last administered on 11/24/16 22:26; Admin Dose 2 MG; Start 11/24/16 at 10:00 MIRELLA MOSER MD Nov 25, 2016 09:22
[2016-11-25] MEDS: DILTIAZEM (CD) 180 MG CAP PO SCH (10:33)
[2016-11-25] MEDS: CITRIC ACID/NA CITRATE 30 ML CUP PO SCH ×2 (10:33→12:39)
[2016-11-25] MEDS: MYCOPHENOLATE 250 MG CAP PO SCH ×2 (10:34→22:42)
[2016-11-25] MEDS: GABAPENTIN 100 MG CAP PO SCH ×3 (10:34→22:42)
[2016-11-25] MEDS: METOPROLOL 25 MG TAB PO SCH ×2 (10:34→22:44)
[2016-11-25] MEDS: ASPIRIN (EC) 81 MG TAB PO SCH (10:34)
[2016-11-25] MEDS: ACETYLCYSTEINE 600 MG CAP PO SCH ×2 (10:35→22:42)
[2016-11-25] MEDS: TACROLIMUS 0.5 MG CAP PO SCH ×2 (10:35→22:46)
[2016-11-25] MEDS: FOLIC ACID 1 MG TAB PO SCH (10:35)
[2016-11-25] MEDS: ENOXAPARIN 30 MG/0.3 ML SYG SC SCH (10:40)
[2016-11-25 14:34] VITALS: BP 130/63; RESP 16
--- NOTE | 2016-11-25 15:43 | PN ---
JULIANAHELENJUANPABLO Mayorga NP 11/25/16 1542: Date/Time of Note Date/Time of Note DATE: 11/25/16 TIME: 15:40 Assessment/Plan VTE Prophylaxis VTE Prophylaxis Intervention: LMWH Lines/Catheters IV Catheter Type (from Nrs): Peripheral IV Urinary Cath still in place: No Assessment/Plan Chief Complaint/Hosp Course 1.Significant peripheral vascular disease with bilateral lower extremities gangrene. -Vascular on board and per evaluation, patient has critical limb ischemia of both legs and limb salvage may be challenging for her and possibility of a major amputation in there. Hence the plan is for staged revascularization procedure left lower extremities first followed by right lower extremity. -Continue aspirin, blood pressure management, statin and prophylactic anticoagulation. -ID following. So far cultures have been negative. Defer antibiotics to ID team. 2.Status post kidney transplant: - on immunosuppression with Prograf, CellCept -Nephrology on board and will follow recommendations-on Mucomyst for renal prophylaxis for vascular intervention 3. Hypertension. -Continue antihypertensives 4. Chronic anemia. -H&H stable. Will monitor. 5. Peripheral neuropathy. -Continue pain medications DVT prophylaxis: Lovenox PUD prophylaxis: Protonix Plan: We will follow-up with vascular recommendation regarding further vascular interventions-intervention pending secondary to anesthesia availability- Continue current medical management. Case discussed with Dr. Rider Problems: Subjective 24 Hr Interval Summary Free Text/Dictation No acute overnight episodes. Exam/Review of Systems Vital Signs Vitals Vital Signs Date Time Temp Pulse Resp B/P Pulse Ox O2 Delivery O2 Flow Rate FiO2 11/25/16 14:34 98.2 60 16 130/63 99 Intake and Output 11/24/16 11/24/16 11/25/16 15:00 23:00 07:00 Intake Total 1560 ml 1520 ml Balance 1560 ml 1520 ml Exam General: Well developed,adequately built, not in any acute distress . HEENT: Normocephalic, Atraumatic, No laceration or hematoma; Eyes: PEERL, Conjunctiva clear, Anicteric sclera Neck: Supple without any lymphadenopathy, nontender, no JVD, no carotid bruits, trachea midline, no thyromegaly Cardiac: S1, S2 auscultated, regular rhythm and rate, no mumurs or gallop Pulmonary: Normal respiratory effort. Chest clear to auscultation bilaterally, no adventitious breath sounds GI: Abdomen normal to inspection. Soft, non tender, non- distended, no masses, no rebound tenderness or guarding. Bowel sounds active on all four quadrants Genitourinary: Deferred Extremities: Gangrenous toes. No cyanosis, clubbing, or edema. Pulses [2+] bilaterally. Full ROM on all four extremities. No focal weakness appreciated. Neurologic: Alert to person, place, time, and situation. Affect appropriate, intact sensation. Skin: Clean,dry, and intact. No ecchymosis, no rashes, or lesions Results Result Diagram: 11/25/16 0450 11/25/16 0444 Results 24 hrs Laboratory Tests Test 11/25/16 04:44 11/25/16 04:50 Sodium Level 142 Potassium Level 4.1 Chloride Level 101 Carbon Dioxide Level 28 Anion Gap 17 H Blood Urea Nitrogen 6 L Creatinine 0.61 Glucose Level 97 Calcium Level 8.7 White Blood Count 6.2 # Red Blood Count 3.60 L Hemoglobin 9.8 L Hematocrit 31.6 L Mean Corpuscular Volume 87.8 Mean Corpuscular Hemoglobin 27.2 L Mean Corpuscular Hemoglobin Concent 31.0 L Red Cell Distribution Width 14.7 H Platelet Count 213 # Mean Platelet Volume 12.6 H Neutrophils % 70.8 Lymphocytes % 13.3 L Monocytes % 14.1 H Eosinophils % 1.3 Basophils % 0.2 Nucleated Red Blood Cells % 0.0 Neutrophils # 4.4 Lymphocytes # 0.8 Monocytes # 0.9 Eosinophils # 0.1 Basophils # 0.0 Nucleated Red Blood Cells # 0.0 Medications Medications Current Medications Ondansetron HCl (Zofran Inj) 4 mg Q6H PRN IV NAUSEA AND/OR VOMITING; Start at 16:00 Acetaminophen (Tylenol Tab) 650 mg Q6H PRN PO PAIN LEVEL 1-3 OR FEVER; Start at 16:00 Pantoprazole (Protonix Tab) 40 mg DAILY@06 PO Last administered on 11/25/16 06: 22; Admin Dose 40 MG; Start 11/13/16 at 06:00 Enoxaparin Sodium (Lovenox) 30 mg DAILY SC Last administered on 11/25/16 10:40 ; Admin Dose 30 MG; Start 11/13/16 at 09:00 Aspirin (Halfprin) 81 mg DAILY PO Last administered on 11/25/16 10:34; Admin Dose 81 MG; Start 11/13/16 at 09:00 Diltiazem HCl (Cardizem Cd) 180 mg DAILY PO Last administered on 11/25/16 10:33 ; Admin Dose 180 MG; Start 11/13/16 at 09:00 Famotidine (Pepcid) 40 mg HS PO Last administered on 11/24/16 21:52; Admin Dose 40 MG; Start 11/12/16 at 21:00 Folic Acid (Folic Acid) 1 mg DAILY PO Last administered on 11/25/16 10:35; Admin Dose 1 MG; Start 11/13/16 at 09:00 Mycophenolate Mofetil (Cellcept) 1,000 mg BID PO Last administered on 11/25/16 10:34; Admin Dose 1,000 MG; Start 11/12/16 at 21:00 Citric Acid/ Sodium Citrate (Bicitra) 30 ml TID PO Last administered on 12:39; Admin Dose 30 ML; Start 11/12/16 at 21:00 Acetylcysteine (Nac) 1,200 mg BID PO Last administered on 11/25/16 10:35; Admin Dose 1,200 MG; Start 11/12/16 at 21:00 Metoprolol Tartrate (Lopressor) 75 mg BID PO Last administered on 11/25/16 10: 34; Admin Dose 75 MG; Start 11/12/16 at 21:00 Gabapentin 100 mg 100 mg TID PO Last administered on 11/25/16 12:39; Admin Dose 100 MG; Start 11/12/16 at 21:00 Levofloxacin/ Dextrose (Levaquin 500mg/ D5W 100 ml (Pmx)) 100 ml @ 100 mls/hr Q24H IVPB Last administered on 11/24/16 21:51; Admin Dose 100 MLS/HR; Start at 20:30 Benazepril HCl 10 mg 10 mg BID PO Last administered on 11/15/16 10:34; Admin Dose 10 MG; Start 11/14/16 at 11:00; Status Future Hold Metronidazole 100 ml @ 100 mls/hr Q8 IVPB Last administered on 11/25/16 06:22 ; Admin Dose 100 MLS/HR; Start 11/14/16 at 16:00 Daptomycin/Sodium Chloride (Cubicin/NS) 100 ml @ 200 mls/hr Q24H IVPB Last administered on 11/24/16 17:32; Admin Dose 200 MLS/HR; Start 11/14/16 at 17:00 Zolpidem Tartrate (Ambien) 5 mg HS PRN PO INSOMNIA; Start 11/15/16 at 23:30 Loperamide HCl 2 mg 2 mg QID PRN PO DIARRHEA Last administered on 11/17/16 12: 51; Admin Dose 2 MG; Start 11/16/16 at 16:00 Sodium Chloride (1/2 NS) 1,000 ml @ 75 mls/hr [id number] IV Last administered on 11/25/16 02:58; Admin Dose 75 MLS/HR; Start 11/19/16 at 07:00 Acetaminophen/ Hydrocodone Bitart ([place] (5/325)) 1 tab Q6H PRN PO pain Last administered on 11/25/16 10:35; Admin Dose 1 TAB; Start 11/22/16 at 12:00 Morphine Sulfate (morphine) 2 mg Q4H PRN IV SEVERE PAIN LEVEL 7-10; Start at 12:00 Tacrolimus (Prograf) 2 mg Q12 PO Last administered on 11/25/16 10:35; Admin Dose 2 MG; Start 11/24/16 at 10:00 SHIRLEY RIDER MD 11/26/16 1846: Assessment/Plan Assessment/Plan Assessment/Plan addendum to [facility] [employer] note pt not on GI "prophylaxis" she's on PPI in outpatient setting Exam/Review of Systems Results Result Diagram: 11/25/16 0450 11/25/16 0444 HELEN ANDREWS NP Nov 25, 2016 15:42 SHIRLEY RIDER MD Nov 26, 2016 18:46
--- NOTE | 2016-11-25 16:33 | CONS ---
Date/Time of Note Date/Time of Note DATE: 11/25/16 TIME: 16:31 Assessment/Plan Assessment/Plan Additional Assessment/Plan 1. 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 h/o donor kidney transplant in 2009 at [facility], currently on immunosuppression with Prograf, CellCept 4. 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 History of hypertension. 6. History of diabetes mellitus. 7. History of previous left upper extremity arteriovenous fistula. 8. Mild Metabolic acidosis, 9. Electrolyte imbalance- Hypercalcemia- resolved ,Hypokalemia- resolved, Hypomagnesemia- resolved Plan: IV abx as per Infectious disease service d/c bicitra, Cr and HCo3 normal, Continue IVF 1/2 NS as ordered ,will follow up in AM whenever vascular plan for intervention,Nurse is instructed to call me to prevent contrast induced nephropathy Continue current immunosuppresion with prograf,cellcept, no prednisone due to hypercalcemia will continue to follow up . Consultation Date/Type/Reason Admit Date/Time Nov 12, 2016 at 10:06 Initial Consult Date 11/12/16 Type of Consultation: ID Referring Provider: KRISTIN HALL MD Exam/Review of Systems Vital Signs Vitals Vital Signs Date Time Temp Pulse Resp B/P Pulse Ox O2 Delivery O2 Flow Rate FiO2 11/25/16 14:34 98.2 60 16 130/63 99 Intake and Output 11/24/16 11/24/16 11/25/16 15:00 23:00 07:00 Intake Total 1560 ml 1520 ml Balance 1560 ml 1520 ml Exam GENERAL: VSS, NAD HEENT: Unremarkable -- NECK: Supple, trachea midline. CHEST: Rise symmetrical, without dyspnea on observation HEART: Pulse RRR ABDOMEN: Soft, benign EXTREMITIES: Warm -- gangrenous toes Results Result Diagram: 11/25/16 0450 11/25/16 0444 Results 24 hrs Laboratory Tests Test 11/25/16 04:44 11/25/16 04:50 Sodium Level 142 Potassium Level 4.1 Chloride Level 101 Carbon Dioxide Level 28 Anion Gap 17 H Blood Urea Nitrogen 6 L Creatinine 0.61 Glucose Level 97 Calcium Level 8.7 White Blood Count 6.2 # Red Blood Count 3.60 L Hemoglobin 9.8 L Hematocrit 31.6 L Mean Corpuscular Volume 87.8 Mean Corpuscular Hemoglobin 27.2 L Mean Corpuscular Hemoglobin Concent 31.0 L Red Cell Distribution Width 14.7 H Platelet Count 213 # Mean Platelet Volume 12.6 H Neutrophils % 70.8 Lymphocytes % 13.3 L Monocytes % 14.1 H Eosinophils % 1.3 Basophils % 0.2 Nucleated Red Blood Cells % 0.0 Neutrophils # 4.4 Lymphocytes # 0.8 Monocytes # 0.9 Eosinophils # 0.1 Basophils # 0.0 Nucleated Red Blood Cells # 0.0 Medications Medications Current Medications Ondansetron HCl (Zofran Inj) 4 mg Q6H PRN IV NAUSEA AND/OR VOMITING; Start at 16:00 Acetaminophen (Tylenol Tab) 650 mg Q6H PRN PO PAIN LEVEL 1-3 OR FEVER; Start at 16:00 Pantoprazole (Protonix Tab) 40 mg DAILY@06 PO Last administered on 11/25/16 06: 22; Admin Dose 40 MG; Start 11/13/16 at 06:00 Enoxaparin Sodium (Lovenox) 30 mg DAILY SC Last administered on 11/25/16 10:40 ; Admin Dose 30 MG; Start 11/13/16 at 09:00 Aspirin (Halfprin) 81 mg DAILY PO Last administered on 11/25/16 10:34; Admin Dose 81 MG; Start 11/13/16 at 09:00 Diltiazem HCl (Cardizem Cd) 180 mg DAILY PO Last administered on 11/25/16 10:33 ; Admin Dose 180 MG; Start 11/13/16 at 09:00 Famotidine (Pepcid) 40 mg HS PO Last administered on 11/24/16 21:52; Admin Dose 40 MG; Start 11/12/16 at 21:00 Folic Acid (Folic Acid) 1 mg DAILY PO Last administered on 11/25/16 10:35; Admin Dose 1 MG; Start 11/13/16 at 09:00 Mycophenolate Mofetil (Cellcept) 1,000 mg BID PO Last administered on 11/25/16 10:34; Admin Dose 1,000 MG; Start 11/12/16 at 21:00 Citric Acid/ Sodium Citrate (Bicitra) 30 ml TID PO Last administered on 12:39; Admin Dose 30 ML; Start 11/12/16 at 21:00 Acetylcysteine (Nac) 1,200 mg BID PO Last administered on 11/25/16 10:35; Admin Dose 1,200 MG; Start 11/12/16 at 21:00 Metoprolol Tartrate (Lopressor) 75 mg BID PO Last administered on 11/25/16 10: 34; Admin Dose 75 MG; Start 11/12/16 at 21:00 Gabapentin 100 mg 100 mg TID PO Last administered on 11/25/16 12:39; Admin Dose 100 MG; Start 11/12/16 at 21:00 Levofloxacin/ Dextrose (Levaquin 500mg/ D5W 100 ml (Pmx)) 100 ml @ 100 mls/hr Q24H IVPB Last administered on 11/24/16 21:51; Admin Dose 100 MLS/HR; Start at 20:30 Benazepril HCl 10 mg 10 mg BID PO Last administered on 11/15/16 10:34; Admin Dose 10 MG; Start 11/14/16 at 11:00; Status Future Hold Metronidazole 100 ml @ 100 mls/hr Q8 IVPB Last administered on 11/25/16 16:03 ; Admin Dose 100 MLS/HR; Start 11/14/16 at 16:00 Daptomycin/Sodium Chloride (Cubicin/NS) 100 ml @ 200 mls/hr Q24H IVPB Last administered on 11/24/16 17:32; Admin Dose 200 MLS/HR; Start 11/14/16 at 17:00 Zolpidem Tartrate (Ambien) 5 mg HS PRN PO INSOMNIA; Start 11/15/16 at 23:30 Loperamide HCl 2 mg 2 mg QID PRN PO DIARRHEA Last administered on 11/17/16 12: 51; Admin Dose 2 MG; Start 11/16/16 at 16:00 Sodium Chloride (1/2 NS) 1,000 ml @ 75 mls/hr [id number] IV Last administered on 11/25/16 02:58; Admin Dose 75 MLS/HR; Start 11/19/16 at 07:00 Acetaminophen/ Hydrocodone Bitart ([place] (5/325)) 1 tab Q6H PRN PO pain Last administered on 11/25/16 10:35; Admin Dose 1 TAB; Start 11/22/16 at 12:00 Morphine Sulfate (morphine) 2 mg Q4H PRN IV SEVERE PAIN LEVEL 7-10; Start at 12:00 Tacrolimus (Prograf) 2 mg Q12 PO Last administered on 11/25/16 10:35; Admin Dose 2 MG; Start 11/24/16 at 10:00 RAMON KEMP MD Nov 25, 2016 16:33
[2016-11-25] MEDS: SOD CHLORIDE 0.9% IVPB SCH (17:22)
[2016-11-25] MEDS: DAPTOMYCIN IVPB SCH (17:22)
[2016-11-25 20:20] VITALS: BP 155/74; RESP 18
[2016-11-25] MEDS: morphine 2 MG INJ IV PRN (22:40)
[2016-11-25] MEDS: FAMOTIDINE 20 MG TAB PO SCH (22:42)
[2016-11-25] MEDS: LEVOFLOXACIN 500MG/D5W (PMX) 100 ML IVPB SCH (22:44)
[2016-11-26] MEDS: HYDROCODONE/APAP (5/325) TAB PO PRN ×3 (01:06→18:39)
[2016-11-26 02:24] VITALS: BP 144/62; RESP 18
[2016-11-26] MEDS: metroNIDAZOLE 500 MG/NS (PMX) 100 ML IVPB SCH ×3 (05:55→21:36)
[2016-11-26] MEDS: PANTOPRAZOLE (EC) 40 MG TAB PO SCH (05:55)
[2016-11-26 07:20] VITALS: BP 141/73; RESP 18
[2016-11-26] MEDS: TACROLIMUS 0.5 MG CAP PO SCH ×2 (08:38→20:49)
[2016-11-26] MEDS: ENOXAPARIN 30 MG/0.3 ML SYG SC SCH (08:38)
[2016-11-26] MEDS: ACETYLCYSTEINE 600 MG CAP PO SCH (08:39)
[2016-11-26] MEDS: FOLIC ACID 1 MG TAB PO SCH (08:39)
[2016-11-26] MEDS: ASPIRIN (EC) 81 MG TAB PO SCH (08:40)
[2016-11-26] MEDS: GABAPENTIN 100 MG CAP PO SCH ×3 (08:40→20:49)
[2016-11-26] MEDS: MYCOPHENOLATE 250 MG CAP PO SCH ×2 (08:40→20:45)
[2016-11-26] MEDS: DILTIAZEM (CD) 180 MG CAP PO SCH (08:41)
[2016-11-26] MEDS: METOPROLOL 25 MG TAB PO SCH ×2 (08:43→20:49)
--- NOTE | 2016-11-26 10:07 | PN ---
Date/Time of Note Date/Time of Note DATE: 11/26/16 TIME: 10:06 Assessment/Plan VTE Prophylaxis VTE Prophylaxis Intervention: LMWH Lines/Catheters IV [facility] Type [facility]from [facility] Peripheral IV Urinary Cath still in place: No Assessment/Plan Chief Complaint/Hosp Course 1.Significant peripheral vascular disease with bilateral lower extremities gangrene. -Vascular on board and per evaluation, patient has critical limb ischemia of both legs and limb salvage may be challenging for her and possibility of a major amputation in there. Hence the plan is for staged revascularization procedure left lower extremities first followed by right lower extremity-however , availability of anesthesia is a concern at this point and delaying the procedure. Follow-up with Dr. Valencia regarding timing of surgery. -Continue aspirin, blood pressure management, statin and prophylactic anticoagulation. -ID following. So far cultures have been negative. Defer antibiotics to ID team. 2.Status post kidney transplant: - on immunosuppression with Prograf, CellCept -Nephrology on board and will follow recommendations-on Mucomyst for renal prophylaxis for vascular intervention 3. Hypertension. -Continue antihypertensives 4. Chronic anemia. -H&H stable. Will monitor. 5. Peripheral neuropathy. -Continue pain medications DVT prophylaxis: Lovenox PUD prophylaxis: Protonix Plan: We will follow-up with vascular recommendation regarding further vascular interventions-intervention pending secondary to anesthesia availability- Continue current medical management. Case discussed with Dr. Thomason Problems: Subjective 24 Hr Interval Summary Free Text/Dictation Patient with no acute overnight episodes. Exam/Review of Systems Vital Signs Vitals Vital Signs Date Time Temp Pulse Resp B/P Pulse Ox O2 Delivery O2 Flow Rate FiO2 11/26/16 07:20 98.3 63 18 141/73 99 Intake and Output 11/25/16 11/25/16 11/26/16 15:00 23:00 07:00 Intake Total 100 ml 2330 ml 1410 ml Balance 100 ml 2330 ml 1410 ml Exam General: Well developed,adequately built, not in any acute distress . HEENT: Normocephalic, Atraumatic, No laceration or hematoma; Eyes: PEERL, Conjunctiva clear, Anicteric sclera Neck: Supple without any lymphadenopathy, nontender, no JVD, no carotid bruits, trachea midline, no thyromegaly Cardiac: S1, S2 auscultated, regular rhythm and rate, no mumurs or gallop Pulmonary: Normal respiratory effort. Chest clear to auscultation bilaterally, no adventitious breath sounds GI: Abdomen normal to inspection. Soft, non tender, non- distended, no masses, no rebound tenderness or guarding. Bowel sounds active on all four quadrants Genitourinary: Deferred Extremities: Gangrenous toes bilateral,. No cyanosis, clubbing, or edema. Pulses [2+] bilaterally. Full ROM on all four extremities. No focal weakness appreciated. Neurologic: Alert to person, place, time, and situation. Affect appropriate, intact sensation. Skin: Clean,dry, and intact. No ecchymosis, no rashes, or lesions Results Result Diagram: 11/25/16 0450 11/25/16 0444 Medications Medications Current Medications Ondansetron HCl (Zofran Inj) 4 mg Q6H PRN IV NAUSEA AND/OR VOMITING; Start at 16:00 Acetaminophen (Tylenol Tab) 650 mg Q6H PRN PO PAIN LEVEL 1-3 OR FEVER; Start at 16:00 Pantoprazole (Protonix Tab) 40 mg DAILY@06 PO Last administered on 11/26/16 05: 55; Admin Dose 40 MG; Start 11/13/16 at 06:00 Enoxaparin Sodium (Lovenox) 30 mg DAILY SC Last administered on 11/26/16 08:38 ; Admin Dose 30 MG; Start 11/13/16 at 09:00 Aspirin (Halfprin) 81 mg DAILY PO Last administered on 11/26/16 08:40; Admin Dose 81 MG; Start 11/13/16 at 09:00 Diltiazem HCl (Cardizem Cd) 180 mg DAILY PO Last administered on 11/26/16 08:41 ; Admin Dose 180 MG; Start 11/13/16 at 09:00 Famotidine (Pepcid) 40 mg HS PO Last administered on 11/25/16 22:42; Admin Dose 40 MG; Start 11/12/16 at 21:00 Folic Acid (Folic Acid) 1 mg DAILY PO Last administered on 11/26/16 08:39; Admin Dose 1 MG; Start 11/13/16 at 09:00 Mycophenolate Mofetil (Cellcept) 1,000 mg BID PO Last administered on 11/26/16 08:40; Admin Dose 1,000 MG; Start 11/12/16 at 21:00 Acetylcysteine (Nac) 1,200 mg BID PO Last administered on 11/26/16 08:39; Admin Dose 1,200 MG; Start 11/12/16 at 21:00 Metoprolol Tartrate (Lopressor) 75 mg BID PO Last administered on 11/26/16 08: 43; Admin Dose 75 MG; Start 11/12/16 at 21:00 Gabapentin 100 mg 100 mg TID PO Last administered on 11/26/16 08:40; Admin Dose 100 MG; Start 11/12/16 at 21:00 Levofloxacin/ Dextrose (Levaquin 500mg/ D5W 100 ml (Pmx)) 100 ml @ 100 mls/hr Q24H IVPB Last administered on 11/25/16 22:44; Admin Dose 100 MLS/HR; Start at 20:30 Benazepril HCl 10 mg 10 mg BID PO Last administered on 11/15/16 10:34; Admin Dose 10 MG; Start 11/14/16 at 11:00; Status Future Hold Metronidazole 100 ml @ 100 mls/hr Q8 IVPB Last administered on 11/26/16 05:55 ; Admin Dose 100 MLS/HR; Start 11/14/16 at 16:00 Daptomycin/Sodium Chloride (Cubicin/NS) 100 ml @ 200 mls/hr Q24H IVPB Last administered on 11/25/16 17:22; Admin Dose 200 MLS/HR; Start 11/14/16 at 17:00 Zolpidem Tartrate (Ambien) 5 mg HS PRN PO INSOMNIA; Start 11/15/16 at 23:30 Loperamide HCl 2 mg 2 mg QID PRN PO DIARRHEA Last administered on 11/17/16 12: 51; Admin Dose 2 MG; Start 11/16/16 at 16:00 Sodium Chloride (1/2 NS) 1,000 ml @ 75 mls/hr [id number] IV Last administered on 11/25/16 17:22; Admin Dose 75 MLS/HR; Start 11/19/16 at 07:00 Acetaminophen/ Hydrocodone Bitart ([place] (5/325)) 1 tab Q6H PRN PO pain Last administered on 11/26/16 01:06; Admin Dose 1 TAB; Start 11/22/16 at 12:00 Morphine Sulfate (morphine) 2 mg Q4H PRN IV SEVERE PAIN LEVEL 7-10 Last administered on 11/25/16 22:40; Admin Dose 2 MG; Start 11/23/16 at 12:00 Tacrolimus (Prograf) 2 mg Q12 PO Last administered on 11/26/16 08:38; Admin Dose 2 MG; Start 11/24/16 at 10:00 HELEN ANDREWS NP Nov 26, 2016 10:07
--- NOTE | 2016-11-26 10:18 | CONS ---
Date/Time of Note Date/Time of Note DATE: 11/26/16 TIME: 10:16 Assessment/Plan Assessment/Plan Additional Assessment/Plan 1. Pre-op for LE vascular procedure. Nl EF and no ischemia by lexiscan 11/13 only scar- per Dr. Powell, Mod - Ok for surgery, moderate risk. NO CP now. Surgical team follows. HOPE TO PROCEED TO SURGERY SOON. 2.HTN-uncontrolled - con't to adjust Rx - will monitor - BETTER NOW 3,CAD - no CP now, no ischemi patrick Stress test 11/13 - no Cp noted - OK TO PROCEDURE, moderate risk. 4.PAD with nonhealing LE wounds - vascular to follow, wound care in place 5. -moderate by ECHo.- no intervention planned now - stable by exam Consultation Date/Type/Reason Admit Date/Time Nov 12, 2016 at 10:06 Initial Consult Date 11/13/16 Type of Consultation: ID Referring Provider: KRISTIN HALL MD 24 HR Interval Summary Free Text/Dictation NO acute change - awaiting surgical procedure. Fluid status optimized. ROS: No fever, no chills, no nausea, no vomiting, no diarrhea/constipation No recent weight changes No chest pain, no PND, no orthopnea No dizziness, blurred vision No thirst, no heat or cold intolerance Exam/Review of Systems Vital Signs Vitals Vital Signs Date Time Temp Pulse Resp B/P Pulse Ox O2 Delivery O2 Flow Rate FiO2 11/26/16 07:20 98.3 63 18 141/73 99 Intake and Output 11/25/16 11/25/16 11/26/16 15:00 23:00 07:00 Intake Total 100 ml 2330 ml 1410 ml Balance 100 ml 2330 ml 1410 ml Exam General: WN/WD/NAD, AOx 3 HEENT: Unicetric/atraumatic/EOMI (follow commands) NECK: JVD elevated, no thyromegaly Lymph: no lymphadenopathy HEART: regular with no S3, II/ systolic murmur at apex LUNGS: Coarse sounds ABD: soft, NT, ND, +BS : Intact Neuro: non focal SKIN: chronic changes EXT: trace edema, severe PAD Results Result Diagram: 11/25/16 0450 11/25/16 0444 Medications Medications Current Medications Ondansetron HCl (Zofran Inj) 4 mg Q6H PRN IV NAUSEA AND/OR VOMITING; Start at 16:00 Acetaminophen (Tylenol Tab) 650 mg Q6H PRN PO PAIN LEVEL 1-3 OR FEVER; Start at 16:00 Pantoprazole (Protonix Tab) 40 mg DAILY@06 PO Last administered on 11/26/16 05: 55; Admin Dose 40 MG; Start 11/13/16 at 06:00 Enoxaparin Sodium (Lovenox) 30 mg DAILY SC Last administered on 11/26/16 08:38 ; Admin Dose 30 MG; Start 11/13/16 at 09:00 Aspirin (Halfprin) 81 mg DAILY PO Last administered on 11/26/16 08:40; Admin Dose 81 MG; Start 11/13/16 at 09:00 Diltiazem HCl (Cardizem Cd) 180 mg DAILY PO Last administered on 11/26/16 08:41 ; Admin Dose 180 MG; Start 11/13/16 at 09:00 Famotidine (Pepcid) 40 mg HS PO Last administered on 11/25/16 22:42; Admin Dose 40 MG; Start 11/12/16 at 21:00 Folic Acid (Folic Acid) 1 mg DAILY PO Last administered on 11/26/16 08:39; Admin Dose 1 MG; Start 11/13/16 at 09:00 Mycophenolate Mofetil (Cellcept) 1,000 mg BID PO Last administered on 11/26/16 08:40; Admin Dose 1,000 MG; Start 11/12/16 at 21:00 Acetylcysteine (Nac) 1,200 mg BID PO Last administered on 11/26/16 08:39; Admin Dose 1,200 MG; Start 11/12/16 at 21:00 Metoprolol Tartrate (Lopressor) 75 mg BID PO Last administered on 11/26/16 08: 43; Admin Dose 75 MG; Start 11/12/16 at 21:00 Gabapentin 100 mg 100 mg TID PO Last administered on 11/26/16 08:40; Admin Dose 100 MG; Start 11/12/16 at 21:00 Levofloxacin/ Dextrose (Levaquin 500mg/ D5W 100 ml (Pmx)) 100 ml @ 100 mls/hr Q24H IVPB Last administered on 11/25/16 22:44; Admin Dose 100 MLS/HR; Start at 20:30 Benazepril HCl 10 mg 10 mg BID PO Last administered on 11/15/16 10:34; Admin Dose 10 MG; Start 11/14/16 at 11:00; Status Future Hold Metronidazole 100 ml @ 100 mls/hr Q8 IVPB Last administered on 11/26/16 05:55 ; Admin Dose 100 MLS/HR; Start 11/14/16 at 16:00 Daptomycin/Sodium Chloride (Cubicin/NS) 100 ml @ 200 mls/hr Q24H IVPB Last administered on 11/25/16 17:22; Admin Dose 200 MLS/HR; Start 11/14/16 at 17:00 Zolpidem Tartrate (Ambien) 5 mg HS PRN PO INSOMNIA; Start 11/15/16 at 23:30 Loperamide HCl 2 mg 2 mg QID PRN PO DIARRHEA Last administered on 11/17/16 12: 51; Admin Dose 2 MG; Start 11/16/16 at 16:00 Sodium Chloride (1/2 NS) 1,000 ml @ 75 mls/hr [id number] IV Last administered on 11/25/16 17:22; Admin Dose 75 MLS/HR; Start 11/19/16 at 07:00 Acetaminophen/ Hydrocodone Bitart ([place] (5/325)) 1 tab Q6H PRN PO pain Last administered on 11/26/16 01:06; Admin Dose 1 TAB; Start 11/22/16 at 12:00 Morphine Sulfate (morphine) 2 mg Q4H PRN IV SEVERE PAIN LEVEL 7-10 Last administered on 11/25/16 22:40; Admin Dose 2 MG; Start 11/23/16 at 12:00 Tacrolimus (Prograf) 2 mg Q12 PO Last administered on 11/26/16 08:38; Admin Dose 2 MG; Start 11/24/16 at 10:00 MIRELLA MOSER MD Nov 26, 2016 10:18
--- NOTE | 2016-11-26 11:27 | CONS ---
Date/Time of Note Date/Time of Note DATE: 11/26/16 TIME: 11:25 Assessment/Plan Assessment/Plan Additional Assessment/Plan 1. 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 h/o donor kidney transplant in 2009 at [facility], currently on immunosuppression with Prograf, CellCept 4. 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 History of hypertension. 6. History of diabetes mellitus. 7. History of previous left upper extremity arteriovenous fistula. 8. Mild Metabolic acidosis, 9. Electrolyte imbalance- Hypercalcemia- resolved ,Hypokalemia- resolved, Hypomagnesemia- resolved Plan: IV abx as per Infectious disease service d/c IV fluids whenever vascular plan for intervention,Nurse is instructed to call me to prevent contrast induced nephropathy Continue current immunosuppresion with prograf,cellcept, no prednisone due to hypercalcemia will continue to follow up Consultation Date/Type/Reason Admit Date/Time Nov 12, 2016 at 10:06 Initial Consult Date 11/12/16 Type of Consultation: NEPHROLOGY Referring Provider: KRISTIN HALL MD 24 HR Interval Summary Free Text/Dictation stable, Exam/Review of Systems Vital Signs Vitals Vital Signs Date Time Temp Pulse Resp B/P Pulse Ox O2 Delivery O2 Flow Rate FiO2 11/26/16 07:20 98.3 63 18 141/73 99 Intake and Output 11/25/16 11/25/16 11/26/16 15:00 23:00 07:00 Intake Total 100 ml 2330 ml 1410 ml Balance 100 ml 2330 ml 1410 ml Exam GENERAL: VSS, NAD HEENT: Unremarkable -- NECK: Supple, trachea midline. CHEST: Rise symmetrical, without dyspnea on observation HEART: Pulse RRR ABDOMEN: Soft, benign EXTREMITIES: Warm -- gangrenous toes Results Result Diagram: 11/25/16 0450 11/25/16 0444 Medications Medications Current Medications Ondansetron HCl (Zofran Inj) 4 mg Q6H PRN IV NAUSEA AND/OR VOMITING; Start at 16:00 Acetaminophen (Tylenol Tab) 650 mg Q6H PRN PO PAIN LEVEL 1-3 OR FEVER; Start at 16:00 Pantoprazole (Protonix Tab) 40 mg DAILY@06 PO Last administered on 11/26/16 05: 55; Admin Dose 40 MG; Start 11/13/16 at 06:00 Enoxaparin Sodium (Lovenox) 30 mg DAILY SC Last administered on 11/26/16 08:38 ; Admin Dose 30 MG; Start 11/13/16 at 09:00 Aspirin (Halfprin) 81 mg DAILY PO Last administered on 11/26/16 08:40; Admin Dose 81 MG; Start 11/13/16 at 09:00 Diltiazem HCl (Cardizem Cd) 180 mg DAILY PO Last administered on 11/26/16 08:41 ; Admin Dose 180 MG; Start 11/13/16 at 09:00 Famotidine (Pepcid) 40 mg HS PO Last administered on 11/25/16 22:42; Admin Dose 40 MG; Start 11/12/16 at 21:00 Folic Acid (Folic Acid) 1 mg DAILY PO Last administered on 11/26/16 08:39; Admin Dose 1 MG; Start 11/13/16 at 09:00 Mycophenolate Mofetil (Cellcept) 1,000 mg BID PO Last administered on 11/26/16 08:40; Admin Dose 1,000 MG; Start 11/12/16 at 21:00 Acetylcysteine (Nac) 1,200 mg BID PO Last administered on 11/26/16 08:39; Admin Dose 1,200 MG; Start 11/12/16 at 21:00 Metoprolol Tartrate (Lopressor) 75 mg BID PO Last administered on 11/26/16 08: 43; Admin Dose 75 MG; Start 11/12/16 at 21:00 Gabapentin 100 mg 100 mg TID PO Last administered on 11/26/16 08:40; Admin Dose 100 MG; Start 11/12/16 at 21:00 Levofloxacin/ Dextrose (Levaquin 500mg/ D5W 100 ml (Pmx)) 100 ml @ 100 mls/hr Q24H IVPB Last administered on 11/25/16 22:44; Admin Dose 100 MLS/HR; Start at 20:30 Benazepril HCl 10 mg 10 mg BID PO Last administered on 11/15/16 10:34; Admin Dose 10 MG; Start 11/14/16 at 11:00; Status Future Hold Metronidazole 100 ml @ 100 mls/hr Q8 IVPB Last administered on 11/26/16 05:55 ; Admin Dose 100 MLS/HR; Start 11/14/16 at 16:00 Daptomycin/Sodium Chloride (Cubicin/NS) 100 ml @ 200 mls/hr Q24H IVPB Last administered on 11/25/16 17:22; Admin Dose 200 MLS/HR; Start 11/14/16 at 17:00 Zolpidem Tartrate (Ambien) 5 mg HS PRN PO INSOMNIA; Start 11/15/16 at 23:30 Loperamide HCl 2 mg 2 mg QID PRN PO DIARRHEA Last administered on 11/17/16 12: 51; Admin Dose 2 MG; Start 11/16/16 at 16:00 Sodium Chloride (1/2 NS) 1,000 ml @ 75 mls/hr [id number] IV Last administered on 11/25/16 17:22; Admin Dose 75 MLS/HR; Start 11/19/16 at 07:00 Acetaminophen/ Hydrocodone Bitart ([place] (5/325)) 1 tab Q6H PRN PO pain Last administered on 11/26/16 01:06; Admin Dose 1 TAB; Start 11/22/16 at 12:00 Morphine Sulfate (morphine) 2 mg Q4H PRN IV SEVERE PAIN LEVEL 7-10 Last administered on 11/25/16 22:40; Admin Dose 2 MG; Start 11/23/16 at 12:00 Tacrolimus (Prograf) 2 mg Q12 PO Last administered on 11/26/16 08:38; Admin Dose 2 MG; Start 11/24/16 at 10:00 RAMON KEMP MD Nov 26, 2016 11:27
[2016-11-26 14:00] VITALS: BP 119/70; RESP 18
[2016-11-26] MEDS: DAPTOMYCIN IVPB SCH (17:45)
[2016-11-26] MEDS: SOD CHLORIDE 0.9% IVPB SCH (17:45)
--- NOTE | 2016-11-26 19:25 | CONS ---
Date/Time of Note Date/Time of Note DATE: 11/26/16 TIME: 19:18 Assessment/Plan Assessment/Plan Chief Complaint/Hosp Course ID PROGRESS NOTE CURRENT ABX=> Levaquin IV #13 + Dapto#13 TOTAL ABX DAY #15 s/p Vanco PO 11/14-11/16 s/p Clindamycin-> DC"d due to severe diarrhea Vanco IV + Zosyn 11/12 24H INTERVAL SUMMARY * DC Planning in process, appreciate wound nurse assessment and notes * Patient is stable, planned vascular procedures future PHYSICAL EXAMINATION: GENERAL: VSS, NAD HEENT: Unremarkable -- NECK: Supple, trachea midline. CHEST: Rise symmetrical, without dyspnea on observation HEART: Pulse RRR ABDOMEN: Soft, benign EXTREMITIES: Warm -- gangrenous toes ID ASSESSMENT 61 yo F admit with: 1. 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 Severe peripheral vascular disease status post angiogram with angioplasty 3. Hx of donor kidney transplant 2009, on Prograf, CellCept and prednisone. 4. 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 h/o donor kidney transplant in 2009 at [facility], currently on immunosuppression with Prograf, CellCept 6. HTN -> Poorly controlled 7. DM w/complications of DM polyneuropathies: renal, peripheral 8. History of previous left upper extremity arteriovenous fistula. 9. (+)Diarrhea => ABX associated suspect C.Diff => C.Diff toxin (-) after initiation of ABX 10. Hx of Thrombocytopenia FEB admission on Zyvox 11. Hx of CAD, 11/13 Lexiscan MIBI: No reversibility, no new WMA, EF 70% at stress (- )MRSA Nares screening last admit 10/31/15 INVASIVES: PIV, ABX ALLERGY: KNDA CURRENT ABX: =Levaquin IV #13 + Dapto#13 TOTAL ABX DAY #15 s/p Vanco PO 11/14-11/16 s/p Clindamycin-> DC"d due to severe diarrhea Vanco IV + Zosyn 11/12 ID RECOMMENDATIONS=> No Changes to ABX Plan Below: 1. Pt is high risk immunocompromised host 2/2 DM + immunosuppressive renal Tx status 2. Hx of renal insufficiency with Vanco IV in the past, hx of thrombocytopenia w /Zyvox in the past * Dapto 6mg/kg pharmacy may adjust per renal => baseline CPK, ESR,CRP ordered for today, HOLD STATIN while on DAPTO * Continue Levaquin 3. Appreciate APC/Vascular note: (+)critical limb ischemia of both legs and limb salvage may be challenging for her and possibility of a major amputation in there. * The plan is for staged revascularization procedures -> plan LLE first followed by RLE . . Problems: Consultation Date/Type/Reason Admit Date/Time Nov 12, 2016 at 10:06 Initial Consult Date 11/12/16 Type of Consultation: ID Referring Provider: KRISTIN HALL MD Exam/Review of Systems Vital Signs Vitals Vital Signs Date Time Temp Pulse Resp B/P Pulse Ox O2 Delivery O2 Flow Rate FiO2 11/26/16 14:00 98.4 58 18 119/70 98 Intake and Output 11/25/16 11/25/16 11/26/16 15:00 23:00 07:00 Intake Total 100 ml 2330 ml 1510 ml Balance 100 ml 2330 ml 1510 ml Results Result Diagram: 11/25/16 0450 11/25/16 0444 Medications Medications Current Medications Ondansetron HCl (Zofran Inj) 4 mg Q6H PRN IV NAUSEA AND/OR VOMITING; Start at 16:00 Acetaminophen (Tylenol Tab) 650 mg Q6H PRN PO PAIN LEVEL 1-3 OR FEVER; Start at 16:00 Pantoprazole (Protonix Tab) 40 mg DAILY@06 PO Last administered on 11/26/16 05: 55; Admin Dose 40 MG; Start 11/13/16 at 06:00 Enoxaparin Sodium (Lovenox) 30 mg DAILY SC Last administered on 11/26/16 08:38 ; Admin Dose 30 MG; Start 11/13/16 at 09:00 Aspirin (Halfprin) 81 mg DAILY PO Last administered on 11/26/16 08:40; Admin Dose 81 MG; Start 11/13/16 at 09:00 Diltiazem HCl (Cardizem Cd) 180 mg DAILY PO Last administered on 11/26/16 08:41 ; Admin Dose 180 MG; Start 11/13/16 at 09:00 Famotidine (Pepcid) 40 mg HS PO Last administered on 11/25/16 22:42; Admin Dose 40 MG; Start 11/12/16 at 21:00 Folic Acid (Folic Acid) 1 mg DAILY PO Last administered on 11/26/16 08:39; Admin Dose 1 MG; Start 11/13/16 at 09:00 Mycophenolate Mofetil (Cellcept) 1,000 mg BID PO Last administered on 11/26/16 08:40; Admin Dose 1,000 MG; Start 11/12/16 at 21:00 Metoprolol Tartrate (Lopressor) 75 mg BID PO Last administered on 11/26/16 08: 43; Admin Dose 75 MG; Start 11/12/16 at 21:00 Gabapentin 100 mg 100 mg TID PO Last administered on 11/26/16 12:11; Admin Dose 100 MG; Start 11/12/16 at 21:00 Levofloxacin/ Dextrose (Levaquin 500mg/ D5W 100 ml (Pmx)) 100 ml @ 100 mls/hr Q24H IVPB Last administered on 11/25/16 22:44; Admin Dose 100 MLS/HR; Start at 20:30 Benazepril HCl 10 mg 10 mg BID PO Last administered on 11/15/16 10:34; Admin Dose 10 MG; Start 11/14/16 at 11:00; Status Future Hold Metronidazole 100 ml @ 100 mls/hr Q8 IVPB Last administered on 11/26/16 13:54 ; Admin Dose 100 MLS/HR; Start 11/14/16 at 16:00 Daptomycin/Sodium Chloride (Cubicin/NS) 100 ml @ 200 mls/hr Q24H IVPB Last administered on 11/26/16 17:45; Admin Dose 200 MLS/HR; Start 11/14/16 at 17:00 Zolpidem Tartrate (Ambien) 5 mg HS PRN PO INSOMNIA; Start 11/15/16 at 23:30 Loperamide HCl (Imodium Cap) 2 mg QID PRN PO DIARRHEA Last administered on 11/17 12:51; Admin Dose 2 MG; Start 11/16/16 at 16:00 Acetaminophen/ Hydrocodone Bitart ([place] (5/325)) 1 tab Q6H PRN PO pain Last administered on 11/26/16 18:39; Admin Dose 1 TAB; Start 11/22/16 at 12:00 Morphine Sulfate (morphine) 2 mg Q4H PRN IV SEVERE PAIN LEVEL 7-10 Last administered on 11/25/16 22:40; Admin Dose 2 MG; Start 11/23/16 at 12:00 Tacrolimus 2 mg 2 mg Q12 PO Last administered on 11/26/16 08:38; Admin Dose 2 MG; Start 11/24/16 at 10:00 Sodium Chloride (1/2 NS) 1,000 ml @ 75 mls/hr [id number] IV ; Start 11/27/16 at 06: 00 HAMZAH GARZA NP Nov 26, 2016 19:25
[2016-11-26 20:02] VITALS: BP 131/68; RESP 19
[2016-11-26] MEDS: LEVOFLOXACIN 500MG/D5W (PMX) 100 ML IVPB SCH (20:44)
[2016-11-26] MEDS: FAMOTIDINE 20 MG TAB PO SCH (20:49)
[2016-11-27 02:00] VITALS: BP 120/60; RESP 19
[2016-11-27] MEDS: HYDROCODONE/APAP (5/325) TAB PO PRN ×3 (03:59→22:51)
[2016-11-27] MEDS: PANTOPRAZOLE (EC) 40 MG TAB PO SCH (06:00)
[2016-11-27] MEDS ORDERED: SOD CHLORIDE 0.45% 1,000 ML IV SCH ×2 (06:00→17:30)
[2016-11-27] MEDS: metroNIDAZOLE 500 MG/NS (PMX) 100 ML IVPB SCH ×3 (06:03→23:36)
[2016-11-27 06:57] LABS: CREATININE 0.67 mg/dl (0.44-1.00); POTASSIUM 4.3 mmol/L (3.5-5.1)
[2016-11-27 08:30] VITALS: BP 129/69; RESP 18
[2016-11-27] MEDS: ENOXAPARIN 30 MG/0.3 ML SYG SC SCH (08:41)
[2016-11-27] MEDS: ASPIRIN (EC) 81 MG TAB PO SCH (08:41)
[2016-11-27] MEDS: METOPROLOL 25 MG TAB PO SCH ×2 (09:00→20:10)
[2016-11-27] MEDS: TACROLIMUS 0.5 MG CAP PO SCH ×2 (09:00→20:28)
[2016-11-27] MEDS: FOLIC ACID 1 MG TAB PO SCH (09:01)
[2016-11-27] MEDS: GABAPENTIN 100 MG CAP PO SCH ×3 (09:01→20:31)
[2016-11-27] MEDS: MYCOPHENOLATE 250 MG CAP PO SCH ×2 (09:01→20:30)
[2016-11-27] MEDS: DILTIAZEM (CD) 180 MG CAP PO SCH (09:07)
--- NOTE | 2016-11-27 12:41 | PN ---
Date/Time of Note Date/Time of Note DATE: 11/27/16 TIME: 12:35 Assessment/Plan VTE Prophylaxis VTE Prophylaxis Intervention: LMWH Lines/Catheters IV [facility]ter [facility]from [facility] Peripheral IV Urinary Cath still in place: No Assessment/Plan Chief Complaint/Hosp Course 1.Significant peripheral vascular disease with bilateral lower extremities gangrene. -Vascular on board and per evaluation, patient has critical limb ischemia of both legs and limb salvage may be challenging for her and possibility of a major amputation in there. -Plan is staged revascularization-For [place]-Ileac angiogram with bilateral LE runoff with intervention today -Continue aspirin, blood pressure management, statin and prophylactic anticoagulation. -ID on board-On Dapto 2.Status post kidney transplant: - on immunosuppression with Prograf, CellCept -Nephrology on board and will follow recommendations-on Mucomyst for renal prophylaxis for vascular intervention 3. Hypertension. -Continue antihypertensives 4. Chronic anemia. -H&H stable. Will monitor. 5. Peripheral neuropathy. -Continue pain medications DVT prophylaxis: Lovenox PUD prophylaxis: Protonix Plan: We will follow-up with vascular recommendation post operatively Case discussed with Dr. Thomason Problems: Subjective 24 Hr Interval Summary Free Text/Dictation No acute distress.For vascular intervention today. Exam/Review of Systems Vital Signs Vitals Vital Signs Date Time Temp Pulse Resp B/P Pulse Ox O2 Delivery O2 Flow Rate FiO2 11/27/16 08:30 97.8 59 18 129/69 99 Intake and Output 11/26/16 11/26/16 11/27/16 15:00 23:00 07:00 Intake Total 400 ml 1140 ml 300 ml Balance 400 ml 1140 ml 300 ml Exam General: Well developed,adequately built, not in any acute distress . HEENT: Normocephalic, Atraumatic, No laceration or hematoma; Eyes: PEERL, Conjunctiva clear, Anicteric sclera Neck: Supple without any lymphadenopathy, nontender, no JVD, no carotid bruits, trachea midline, no thyromegaly Cardiac: S1, S2 auscultated, regular rhythm and rate, no mumurs or gallop Pulmonary: Normal respiratory effort. Chest clear to auscultation bilaterally, no adventitious breath sounds GI: Abdomen normal to inspection. Soft, non tender, non- distended, no masses, no rebound tenderness or guarding. Bowel sounds active on all four quadrants Genitourinary: Deferred Extremities: Gangrenous toes bilateral,. No cyanosis, clubbing, or edema. Pulses [2+] bilaterally. Full ROM on all four extremities. No focal weakness appreciated. Neurologic: Alert to person, place, time, and situation. Affect appropriate, intact sensation. Skin: Clean,dry, and intact. No ecchymosis, no rashes, or lesions Results Result Diagram: 11/25/16 0450 11/27/16 0524 Results 24 hrs Laboratory Tests Test 11/27/16 05:24 Sodium Level 141 Potassium Level 4.3 Chloride Level 104 Carbon Dioxide Level 26 Anion Gap 15 Blood Urea Nitrogen 7 Creatinine 0.67 Glucose Level 96 Calcium Level 9.0 Medications Medications Current Medications Ondansetron HCl (Zofran Inj) 4 mg Q6H PRN IV NAUSEA AND/OR VOMITING; Start at 16:00 Acetaminophen (Tylenol Tab) 650 mg Q6H PRN PO PAIN LEVEL 1-3 OR FEVER; Start at 16:00 Pantoprazole (Protonix Tab) 40 mg DAILY@06 PO Last administered on 11/26/16 05: 55; Admin Dose 40 MG; Start 11/13/16 at 06:00 Enoxaparin Sodium (Lovenox) 30 mg DAILY SC Last administered on 11/26/16 08:38 ; Admin Dose 30 MG; Start 11/13/16 at 09:00 Aspirin (Halfprin) 81 mg DAILY PO Last administered on 11/26/16 08:40; Admin Dose 81 MG; Start 11/13/16 at 09:00 Diltiazem HCl (Cardizem Cd) 180 mg DAILY PO Last administered on 11/27/16 09:07 ; Admin Dose 180 MG; Start 11/13/16 at 09:00 Famotidine (Pepcid) 40 mg HS PO Last administered on 11/26/16 20:49; Admin Dose 40 MG; Start 11/12/16 at 21:00 Folic Acid (Folic Acid) 1 mg DAILY PO Last administered on 11/27/16 09:01; Admin Dose 1 MG; Start 11/13/16 at 09:00 Mycophenolate Mofetil (Cellcept) 1,000 mg BID PO Last administered on 11/27/16 09:01; Admin Dose 1,000 MG; Start 11/12/16 at 21:00 Metoprolol Tartrate (Lopressor) 75 mg BID PO Last administered on 11/26/16 20: 49; Admin Dose 75 MG; Start 11/12/16 at 21:00 Gabapentin 100 mg 100 mg TID PO Last administered on 11/27/16 12:33; Admin Dose 100 MG; Start 11/12/16 at 21:00 Levofloxacin/ Dextrose (Levaquin 500mg/ D5W 100 ml (Pmx)) 100 ml @ 100 mls/hr Q24H IVPB Last administered on 11/26/16 20:44; Admin Dose 100 MLS/HR; Start at 20:30 Benazepril HCl 10 mg 10 mg BID PO Last administered on 11/15/16 10:34; Admin Dose 10 MG; Start 11/14/16 at 11:00; Status Future Hold Metronidazole 100 ml @ 100 mls/hr Q8 IVPB Last administered on 11/27/16 06:03 ; Admin Dose 100 MLS/HR; Start 11/14/16 at 16:00 Daptomycin/Sodium Chloride (Cubicin/NS) 100 ml @ 200 mls/hr Q24H IVPB Last administered on 11/26/16 17:45; Admin Dose 200 MLS/HR; Start 11/14/16 at 17:00 Zolpidem Tartrate (Ambien) 5 mg HS PRN PO INSOMNIA; Start 11/15/16 at 23:30 Loperamide HCl (Imodium Cap) 2 mg QID PRN PO DIARRHEA Last administered on 11/17 12:51; Admin Dose 2 MG; Start 11/16/16 at 16:00 Acetaminophen/ Hydrocodone Bitart ([place] (5/325)) 1 tab Q6H PRN PO pain Last administered on 11/27/16 11:32; Admin Dose 1 TAB; Start 11/22/16 at 12:00 Morphine Sulfate (morphine) 2 mg Q4H PRN IV SEVERE PAIN LEVEL 7-10 Last administered on 11/25/16 22:40; Admin Dose 2 MG; Start 11/23/16 at 12:00 Tacrolimus 2 mg 2 mg Q12 PO Last administered on 11/27/16 09:00; Admin Dose 2 MG; Start 11/24/16 at 10:00 Sodium Chloride (1/2 NS) 1,000 ml @ 75 mls/hr [id number] IV Last administered on 11/27/16t 06:03; Admin Dose 75 MLS/HR; Start 11/27/16 at 06:00 HELEN ANDREWS NP Nov 27, 2016 12:41
--- NOTE | 2016-11-27 13:41 | CONS ---
Date/Time of Note Date/Time of Note DATE: 11/27/16 TIME: 13:39 Assessment/Plan Assessment/Plan Chief Complaint/Hosp Course IMP: 1. Pre-op for LE vascular procedure. Nl EF and no ischemia by lexiscan 11/13 only scar. Ok to proceed with surgery from CV standpoint at moderate risk 2.HTN-uncontrolled 3,CAD 4.PAD with nonhealing LE wounds 5. -moderate by echo this admit Recc: -Now on med-surg -serial ecg's -Continue dilt/BB/ASA -local wound care -pending LE revascularization as staged procedure when anesthesia available and will attempt endovascular approach first Problems: Consultation Date/Type/Reason Admit Date/Time Nov 12, 2016 at 10:06 Initial Consult Date 11/12/16 Type of Consultation: cardiology Reason for Consultation Pre-op Referring Provider: KRISTIN HALL MD Exam/Review of Systems Vital Signs Vitals Vital Signs Date Time Temp Pulse Resp B/P Pulse Ox O2 Delivery O2 Flow Rate FiO2 11/27/16 08:30 97.8 59 18 129/69 99 Intake and Output 11/26/16 11/26/16 11/27/16 15:00 23:00 07:00 Intake Total 400 ml 1140 ml 300 ml Balance 400 ml 1140 ml 300 ml Exam Review of Systems: CONSTITUTIONAL: No fevers, chills. PULMONARY: No sob CARDIOVASCULAR: No chest pain/palpitations GASTROINTESTINAL: No nausea/vomiting. GENITOURINARY: No hematuria/dysuria. MUSCULOSKELETAL: mild pain in foot PSYCHIATRIC: The patient denies depression. NEUROLOGIC: No weakness Constitutional: alert, oriented Psych: no complaints Head: normocephalic ENMT: mucosa pink and moist Neck: jvd (8 cm water), supple Respiratory: clear to auscultation Cardiovascular: regular rate and rhythm Gastrointestinal: non-tender, soft Musculoskeletal: muscle weakness (generalized) Extremities: edema (none), other (gangrenous changes of foot) Neurological: other (No focal deficits) Results Result Diagram: 11/25/16 0450 11/27/16 0524 Results 24 hrs Laboratory Tests Test 11/27/16 05:24 Sodium Level 141 Potassium Level 4.3 Chloride Level 104 Carbon Dioxide Level 26 Anion Gap 15 Blood Urea Nitrogen 7 Creatinine 0.67 Glucose Level 96 Calcium Level 9.0 Medications Medications Current Medications Ondansetron HCl (Zofran Inj) 4 mg Q6H PRN IV NAUSEA AND/OR VOMITING; Start at 16:00 Acetaminophen (Tylenol Tab) 650 mg Q6H PRN PO PAIN LEVEL 1-3 OR FEVER; Start at 16:00 Pantoprazole (Protonix Tab) 40 mg DAILY@06 PO Last administered on 11/26/16 05: 55; Admin Dose 40 MG; Start 11/13/16 at 06:00 Enoxaparin Sodium (Lovenox) 30 mg DAILY SC Last administered on 11/26/16 08:38 ; Admin Dose 30 MG; Start 11/13/16 at 09:00 Aspirin (Halfprin) 81 mg DAILY PO Last administered on 11/26/16 08:40; Admin Dose 81 MG; Start 11/13/16 at 09:00 Diltiazem HCl (Cardizem Cd) 180 mg DAILY PO Last administered on 11/27/16 09:07 ; Admin Dose 180 MG; Start 11/13/16 at 09:00 Famotidine (Pepcid) 40 mg HS PO Last administered on 11/26/16 20:49; Admin Dose 40 MG; Start 11/12/16 at 21:00 Folic Acid (Folic Acid) 1 mg DAILY PO Last administered on 11/27/16 09:01; Admin Dose 1 MG; Start 11/13/16 at 09:00 Mycophenolate Mofetil (Cellcept) 1,000 mg BID PO Last administered on 11/27/16 09:01; Admin Dose 1,000 MG; Start 11/12/16 at 21:00 Metoprolol Tartrate (Lopressor) 75 mg BID PO Last administered on 11/26/16 20: 49; Admin Dose 75 MG; Start 11/12/16 at 21:00 Gabapentin 100 mg 100 mg TID PO Last administered on 11/27/16 12:33; Admin Dose 100 MG; Start 11/12/16 at 21:00 Levofloxacin/ Dextrose (Levaquin 500mg/ D5W 100 ml (Pmx)) 100 ml @ 100 mls/hr Q24H IVPB Last administered on 11/26/16 20:44; Admin Dose 100 MLS/HR; Start at 20:30 Benazepril HCl 10 mg 10 mg BID PO Last administered on 11/15/16 10:34; Admin Dose 10 MG; Start 11/14/16 at 11:00; Status Future Hold Metronidazole 100 ml @ 100 mls/hr Q8 IVPB Last administered on 11/27/16 06:03 ; Admin Dose 100 MLS/HR; Start 11/14/16 at 16:00 Daptomycin/Sodium Chloride (Cubicin/NS) 100 ml @ 200 mls/hr Q24H IVPB Last administered on 11/26/16 17:45; Admin Dose 200 MLS/HR; Start 11/14/16 at 17:00 Zolpidem Tartrate (Ambien) 5 mg HS PRN PO INSOMNIA; Start 11/15/16 at 23:30 Loperamide HCl (Imodium Cap) 2 mg QID PRN PO DIARRHEA Last administered on 11/17 12:51; Admin Dose 2 MG; Start 11/16/16 at 16:00 Acetaminophen/ Hydrocodone Bitart ([place] (5/325)) 1 tab Q6H PRN PO pain Last administered on 11/27/16 11:32; Admin Dose 1 TAB; Start 11/22/16 at 12:00 Morphine Sulfate (morphine) 2 mg Q4H PRN IV SEVERE PAIN LEVEL 7-10 Last administered on 11/25/16 22:40; Admin Dose 2 MG; Start 11/23/16 at 12:00 Tacrolimus 2 mg 2 mg Q12 PO Last administered on 11/27/16 09:00; Admin Dose 2 MG; Start 11/24/16 at 10:00 Sodium Chloride (1/2 NS) 1,000 ml @ 75 mls/hr [id number] IV Last administered on 11/27/16 06:03; Admin Dose 75 MLS/HR; Start 11/27/16 at 06:00 TIMOTHY CORTES Nov 27, 2016 13:41
[2016-11-27] MEDS ORDERED: LIDOCAINE 2% (SDV) 5 ML INJ ONE ×2 (14:20→15:52)
[2016-11-27] MEDS ORDERED: MIDAZOLAM 1 MG/ML 2 ML INJ ONE (14:20)
[2016-11-27] MEDS ORDERED: PROPOFOL 40 ML ONE (14:20)
[2016-11-27] MEDS ORDERED: CEFAZOLIN 2 GM/50 ML (PMX) 50 ML IVPB ONE (14:32)
[2016-11-27] MEDS ORDERED: HEPARIN 1000 UNITS/ML 10 ML INJ ONE (15:11)
[2016-11-27] MEDS ORDERED: FENTAnyl 50 MCG/ML VIAL ONE (15:37)
[2016-11-27] MEDS ORDERED: NITROGLYCERIN 50 MG/D5W (PMX) 250 ML ONE (15:39)
[2016-11-27] MEDS ORDERED: NITROGLYCERIN (IC) 100 MCG/ML INJ ONE (15:40)
[2016-11-27] MEDS ORDERED: LABETALOL HCL 20MG INJ ONE (16:07)
--- NOTE | 2016-11-27 17:11 | CONS ---
Date/Time of Note Date/Time of Note DATE: 11/27/16 TIME: 17:10 Assessment/Plan Assessment/Plan Additional Assessment/Plan 1. 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 h/o donor kidney transplant in 2009 at [facility], currently on immunosuppression with Prograf, CellCept 4. 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 History of hypertension. 6. History of diabetes mellitus. 7. History of previous left upper extremity arteriovenous fistula. 8. Mild Metabolic acidosis, 9. Electrolyte imbalance- Hypercalcemia- resolved ,Hypokalemia- resolved, Hypomagnesemia- resolved Plan: IV abx as per Infectious disease service plan for LE angiogram by vascular surgery today continue IVF 1/2 NS at 75 cc.hr Continue current immunosuppresion with prograf,cellcept, no prednisone due to hypercalcemia will continue to follow up Consultation Date/Type/Reason Admit Date/Time Nov 12, 2016 at 10:06 Initial Consult Date 11/12/16 Type of Consultation: NEPHROLOGY Reason for Consultation Kidney transplant, to prevent JHON Referring Provider: KRISTIN HALL MD 24 HR Interval Summary Free Text/Dictation plan for LE angiogram toda, Cr normal, Started on IVF today 7 Am Exam/Review of Systems Vital Signs Vitals Vital Signs Date Time Temp Pulse Resp B/P Pulse Ox O2 Delivery O2 Flow Rate FiO2 11/27/16 08:30 97.8 59 18 129/69 99 Intake and Output 11/26/16 11/26/16 11/27/16 15:00 23:00 07:00 Intake Total 400 ml 1140 ml 300 ml Balance 400 ml 1140 ml 300 ml Results Result Diagram: 11/25/16 0450 11/27/16 0524 Results 24 hrs Laboratory Tests Test 11/27/16 05:24 Sodium Level 141 Potassium Level 4.3 Chloride Level 104 Carbon Dioxide Level 26 Anion Gap 15 Blood Urea Nitrogen 7 Creatinine 0.67 Glucose Level 96 Calcium Level 9.0 Medications Medications Current Medications Ondansetron HCl (Zofran Inj) 4 mg Q6H PRN IV NAUSEA AND/OR VOMITING; Start at 16:00 Acetaminophen (Tylenol Tab) 650 mg Q6H PRN PO PAIN LEVEL 1-3 OR FEVER; Start at 16:00 Pantoprazole (Protonix Tab) 40 mg DAILY@06 PO Last administered on 11/26/16 05: 55; Admin Dose 40 MG; Start 11/13/16 at 06:00 Enoxaparin Sodium (Lovenox) 30 mg DAILY SC Last administered on 11/26/16 08:38 ; Admin Dose 30 MG; Start 11/13/16 at 09:00 Aspirin (Halfprin) 81 mg DAILY PO Last administered on 11/26/16 08:40; Admin Dose 81 MG; Start 11/13/16 at 09:00 Diltiazem HCl (Cardizem Cd) 180 mg DAILY PO Last administered on 11/27/16 09:07 ; Admin Dose 180 MG; Start 11/13/16 at 09:00 Famotidine (Pepcid) 40 mg HS PO Last administered on 11/26/16 20:49; Admin Dose 40 MG; Start 11/12/16 at 21:00 Folic Acid (Folic Acid) 1 mg DAILY PO Last administered on 11/27/16 09:01; Admin Dose 1 MG; Start 11/13/16 at 09:00 Mycophenolate Mofetil (Cellcept) 1,000 mg BID PO Last administered on 11/27/16 09:01; Admin Dose 1,000 MG; Start 11/12/16 at 21:00 Metoprolol Tartrate (Lopressor) 75 mg BID PO Last administered on 11/26/16 20: 49; Admin Dose 75 MG; Start 11/12/16 at 21:00 Gabapentin 100 mg 100 mg TID PO Last administered on 11/27/16 12:33; Admin Dose 100 MG; Start 11/12/16 at 21:00 Levofloxacin/ Dextrose (Levaquin 500mg/ D5W 100 ml (Pmx)) 100 ml @ 100 mls/hr Q24H IVPB Last administered on 11/26/16 20:44; Admin Dose 100 MLS/HR; Start at 20:30 Benazepril HCl 10 mg 10 mg BID PO Last administered on 11/15/16 10:34; Admin Dose 10 MG; Start 11/14/16 at 11:00; Status Future Hold Metronidazole 100 ml @ 100 mls/hr Q8 IVPB Last administered on 11/27/16 06:03 ; Admin Dose 100 MLS/HR; Start 11/14/16 at 16:00 Daptomycin/Sodium Chloride (Cubicin/NS) 100 ml @ 200 mls/hr Q24H IVPB Last administered on 11/26/16 17:45; Admin Dose 200 MLS/HR; Start 11/14/16 at 17:00 Zolpidem Tartrate (Ambien) 5 mg HS PRN PO INSOMNIA; Start 11/15/16 at 23:30 Loperamide HCl (Imodium Cap) 2 mg QID PRN PO DIARRHEA Last administered on 11/17 12:51; Admin Dose 2 MG; Start 11/16/16 at 16:00 Acetaminophen/ Hydrocodone Bitart ([place] (5/325)) 1 tab Q6H PRN PO pain Last administered on 11/27/16 11:32; Admin Dose 1 TAB; Start 11/22/16 at 12:00 Morphine Sulfate (morphine) 2 mg Q4H PRN IV SEVERE PAIN LEVEL 7-10 Last administered on 11/25/16 22:40; Admin Dose 2 MG; Start 11/23/16 at 12:00 Tacrolimus 2 mg 2 mg Q12 PO Last administered on 11/27/16 09:00; Admin Dose 2 MG; Start 11/24/16 at 10:00 Sodium Chloride (1/2 NS) 1,000 ml @ 75 mls/hr [id number] IV Last administered on 11/27/16 06:03; Admin Dose 75 MLS/HR; Start 11/27/16 at 06:00 RAMON KEMP MD Nov 27, 2016 17:11
--- NOTE | 2016-11-27 17:27 | OPR ---
Date/Time of Note Date/Time of Note DATE: 11/27/16 TIME: 17:21 Operative Report Preoperative Diagnosis BILATERAL LOWER EXTREMITY GANGRENE Postoperative Diagnosis SAME Operation/Procedure Performed RIGHT [employer] ANTEGRADE ACCESS RIGHT FEM-POP ATHERECTOMY, STENTING AND ANGIOPLASTY RIGHT COMMON FEMORAL ARTERY ANGIOPLASTY RIGHT TIBIOPERONEAL TRUNK ANGIOPLASTY RIGHT PERONEAL ARTERY ANGIOPLASTY Surgeon: WILD DUARTE MD Anesthesia Type: moderate sedation Estimated Blood Loss: 50 - 100 ml's Transfusion Required: no Specimen: none Grafts/Implants: none Complications: no WILD DUARTE MD Nov 27, 2016 17:26
[2016-11-27] MEDS ORDERED: ONDANSETRON 4 MG INJ IV PRN ×2 (17:30→18:00)
[2016-11-27] MEDS ORDERED: LABETALOL HCL 20MG INJ IV PRN (18:00)
[2016-11-27] MEDS ORDERED: OXYCODONE/ACETAMINOPHEN (5/325) TAB PO PRN (18:00)
[2016-11-27] MEDS ORDERED: PROCHLORPERAZINE 10 MG INJ IV PRN (18:00)
[2016-11-27] MEDS ORDERED: hydrALAzine 20 MG INJ IV PRN ×3 (18:00→21:00)
[2016-11-27] MEDS ORDERED: FENTAnyl 50 MCG/ML VIAL IV PRN (18:00)
[2016-11-27] MEDS ORDERED: DIPHENHYDRAMINE 50 MG INJ IV PRN (18:00)
[2016-11-27] MEDS ORDERED: MEPERIDINE 25 MG INJ IV PRN (18:00)
[2016-11-27] MEDS ORDERED: INSULIN ASPART [NOVOLOG] 3 ML PEN SC ONE (18:00)
[2016-11-27] MEDS ORDERED: EPHEDrine SULFATE 50 MG/5 ML SYG IV PRN (18:00)
[2016-11-27] MEDS ORDERED: METOCLOPRAMIDE 10 MG INJ IV PRN (18:00)
[2016-11-27 19:41] VITALS: BP 190/84; RESP 16
[2016-11-27] MEDS: morphine 2 MG INJ IV PRN (20:25)
[2016-11-27] MEDS: FAMOTIDINE 20 MG TAB PO SCH (20:31)
--- NOTE | 2016-11-27 20:59 | CONS ---
Date/Time of Note Date/Time of Note DATE: 11/27/16 TIME: 20:55 Assessment/Plan Assessment/Plan Chief Complaint/Hosp Course ID PROGRESS NOTE CURRENT ABX=> Levaquin IV #14 + Dapto#14 TOTAL ABX DAY #16 s/p Vanco PO 11/14-11/16 s/p Clindamycin-> DC"d due to severe diarrhea Vanco IV + Zosyn 11/12 24H INTERVAL SUMMARY * Resting with eyes closed, no fevers, VSS, family in the room with her, tell me she is doing the same, no complaints offered PHYSICAL EXAMINATION: GENERAL: VSS, NAD HEENT: Unremarkable -- NECK: Supple, trachea midline. CHEST: Rise symmetrical, without dyspnea on observation HEART: Pulse RRR ABDOMEN: Soft, benign EXTREMITIES: Warm -- gangrenous toes ID ASSESSMENT 61 yo F admit with: 1. 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 Severe peripheral vascular disease status post angiogram with angioplasty 3. Hx of donor kidney transplant 2009, on Prograf, CellCept and prednisone. 4. 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 h/o donor kidney transplant in 2009 at [facility], currently on immunosuppression with Prograf, CellCept 6. HTN -> Poorly controlled 7. DM w/complications of DM polyneuropathies: renal, peripheral 8. History of previous left upper extremity arteriovenous fistula. 9. (+)Diarrhea => ABX associated suspect C.Diff => C.Diff toxin (-) after initiation of ABX 10. Hx of Thrombocytopenia FEB admission on Zyvox 11. Hx of CAD, 11/13 Lexiscan MIBI: No reversibility, no new WMA, EF 70% at stress (- )MRSA Nares screening last admit 10/31/15 INVASIVES: PIV, ABX ALLERGY: KNDA CURRENT ABX= > Levaquin IV #14 + Dapto #14 TOTAL ABX DAY #16 s/p Vanco PO 11/14-11/16 s/p Clindamycin-> DC"d due to severe diarrhea Vanco IV + Zosyn 11/12 ID RECOMMENDATIONS May DC on the following ABX => Length of ABX course depends on future revascularization date: 1. Pt is high risk immunocompromised host 2/2 DM + immunosuppressive renal Tx status 2. Hx of renal insufficiency with Vanco IV in the past, hx of thrombocytopenia w /Zyvox in the past * Dapto 6mg/kg pharmacy may adjust per renal => baseline CPK, ESR,CRP recorded. * HOLD STATIN while on DAPTO * Continue Levaquin 3. Appreciate APC/Vascular note: (+)critical limb ischemia of both legs and limb salvage may be challenging for her and possibility of a major amputation in there. * The plan is for staged revascularization procedures -> plan LLE first followed by RLE . . Problems: Consultation Date/Type/Reason Admit Date/Time Nov 12, 2016 at 10:06 Initial Consult Date 11/12/16 Type of Consultation: ID Referring Provider: KRISTIN HALL MD Exam/Review of Systems Vital Signs Vitals Vital Signs Date Time Temp Pulse Resp B/P Pulse Ox O2 Delivery O2 Flow Rate FiO2 11/27/16 08:30 97.8 59 18 129/69 99 Intake and Output 11/26/16 11/26/16 11/27/16 15:00 23:00 07:00 Intake Total 400 ml 1140 ml 300 ml Balance 400 ml 1140 ml 300 ml Results Result Diagram: 11/25/16 0450 11/27/16 0524 Results 24 hrs Laboratory Tests Test 11/27/16 05:24 11/27/16 18:35 Sodium Level 141 Potassium Level 4.3 Chloride Level 104 Carbon Dioxide Level 26 Anion Gap 15 Blood Urea Nitrogen 7 Creatinine 0.67 Glucose Level 96 Calcium Level 9.0 Bedside Glucose 131 Medications Medications Current Medications Acetaminophen (Tylenol Tab) 650 mg Q6H PRN PO PAIN LEVEL 1-3 OR FEVER; Start at 16:00 Pantoprazole (Protonix Tab) 40 mg DAILY@06 PO Last administered on 11/26/16 05: 55; Admin Dose 40 MG; Start 11/13/16 at 06:00 Enoxaparin Sodium (Lovenox) 30 mg DAILY SC Last administered on 11/26/16 08:38 ; Admin Dose 30 MG; Start 11/13/16 at 09:00 Aspirin (Halfprin) 81 mg DAILY PO Last administered on 11/26/16 08:40; Admin Dose 81 MG; Start 11/13/16 at 09:00 Diltiazem HCl (Cardizem Cd) 180 mg DAILY PO Last administered on 11/27/16 09:07 ; Admin Dose 180 MG; Start 11/13/16 at 09:00 Famotidine (Pepcid) 40 mg HS PO Last administered on 11/27/16 20:31; Admin Dose 40 MG; Start 11/12/16 at 21:00 Folic Acid (Folic Acid) 1 mg DAILY PO Last administered on 11/27/16 09:01; Admin Dose 1 MG; Start 11/13/16 at 09:00 Mycophenolate Mofetil (Cellcept) 1,000 mg BID PO Last administered on 11/27/16 20:30; Admin Dose 1,000 MG; Start 11/12/16 at 21:00 Metoprolol Tartrate (Lopressor) 75 mg BID PO Last administered on 11/27/16 20: 10; Admin Dose 75 MG; Start 11/12/16 at 21:00 Gabapentin 100 mg 100 mg TID PO Last administered on 11/27/16 20:31; Admin Dose 100 MG; Start 11/12/16 at 21:00 Levofloxacin/ Dextrose (Levaquin 500mg/ D5W 100 ml (Pmx)) 100 ml @ 100 mls/hr Q24H IVPB Last administered on 11/26/16 20:44; Admin Dose 100 MLS/HR; Start at 20:30 Benazepril HCl 10 mg 10 mg BID PO Last administered on 11/15/16 10:34; Admin Dose 10 MG; Start 11/14/16 at 11:00; Status Future Hold Metronidazole 100 ml @ 100 mls/hr Q8 IVPB Last administered on 11/27/16 06:03 ; Admin Dose 100 MLS/HR; Start 11/14/16 at 16:00 Daptomycin/Sodium Chloride (Cubicin/NS) 100 ml @ 200 mls/hr Q24H IVPB Last administered on 11/26/16 17:45; Admin Dose 200 MLS/HR; Start 11/14/16 at 17:00 Zolpidem Tartrate (Ambien) 5 mg HS PRN PO INSOMNIA; Start 11/15/16 at 23:30 Loperamide HCl (Imodium Cap) 2 mg QID PRN PO DIARRHEA Last administered on 11/17 12:51; Admin Dose 2 MG; Start 11/16/16 at 16:00 Acetaminophen/ Hydrocodone Bitart ([place] (5/325)) 1 tab Q6H PRN PO pain Last administered on 11/27/16 11:32; Admin Dose 1 TAB; Start 11/22/16 at 12:00 Morphine Sulfate (morphine) 2 mg Q4H PRN IV SEVERE PAIN LEVEL 7-10 Last administered on 11/27/16 20:25; Admin Dose 2 MG; Start 11/23/16 at 12:00 Tacrolimus (Prograf) 2 mg Q12 PO Last administered on 11/27/16 20:28; Admin Dose 2 MG; Start 11/24/16 at 10:00 Ondansetron HCl 4 mg 4 mg Q4H PRN IV NAUSEA AND/OR VOMITING; Start 11/27/16 at 17:30 Sodium Chloride (1/2 NS) 1,000 ml @ 75 mls/hr [id number] IV ; Start 11/27/16 at 17: 30; Stop 11/28/16 at 06:49 HAMZAH GARZA NP Nov 27, 2016 20:58
[2016-11-27] MEDS: DAPTOMYCIN IVPB SCH (21:44)
[2016-11-27] MEDS: SOD CHLORIDE 0.9% IVPB SCH (21:44)
[2016-11-27 22:00] VITALS: BP 124/73; RESP 18
[2016-11-27] MEDS: LEVOFLOXACIN 500MG/D5W (PMX) 100 ML IVPB SCH (22:36)
[2016-11-28 02:10] VITALS: BP 129/74; RESP 20
[2016-11-28] MEDS: HYDROCODONE/APAP (5/325) TAB PO PRN ×3 (06:51→22:55)
[2016-11-28] MEDS: metroNIDAZOLE 500 MG/NS (PMX) 100 ML IVPB SCH ×3 (06:52→21:11)
[2016-11-28] MEDS: PANTOPRAZOLE (EC) 40 MG TAB PO SCH (06:53)
[2016-11-28 07:51] VITALS: BP 162/78; RESP 20
[2016-11-28] MEDS: MYCOPHENOLATE 250 MG CAP PO SCH ×2 (08:49→20:49)
[2016-11-28] MEDS: METOPROLOL 25 MG TAB PO SCH ×2 (08:50→20:53)
[2016-11-28] MEDS: ASPIRIN (EC) 81 MG TAB PO SCH (08:50)
[2016-11-28] MEDS: FOLIC ACID 1 MG TAB PO SCH (08:50)
[2016-11-28] MEDS: DILTIAZEM (CD) 180 MG CAP PO SCH (08:51)
[2016-11-28] MEDS: TACROLIMUS 0.5 MG CAP PO SCH ×2 (08:51→20:58)
[2016-11-28] MEDS: GABAPENTIN 100 MG CAP PO SCH ×3 (08:51→20:49)
[2016-11-28] MEDS: ENOXAPARIN 30 MG/0.3 ML SYG SC SCH (08:53)
--- NOTE | 2016-11-28 11:44 | PN ---
Date/Time of Note Date/Time of Note DATE: 11/28/16 TIME: 11:43 Assessment/Plan VTE Prophylaxis VTE Prophylaxis Intervention: LMWH Lines/Catheters IV [facility]from [facility] Peripheral IV Urinary Cath still in place: No Assessment/Plan Chief Complaint/Hosp Course 1.Significant peripheral vascular disease with bilateral lower extremities gangrene/critical limb ischemia of both legs -Status post RIGHT FEM-POP ATHERECTOMY, STENTING AND ANGIOPLASTY -Continue aspirin, blood pressure management, statin and prophylactic anticoagulation. -F/u vascular recs. 2.Status post kidney transplant: - on immunosuppression with Prograf, CellCept -Nephrology on board and will follow recommendations-on Mucomyst for renal prophylaxis for vascular intervention 3. Hypertension. -Continue antihypertensives 4. Chronic anemia. -H&H stable. Will monitor. 5. Peripheral neuropathy. -Continue pain medications DVT prophylaxis: Lovenox PUD prophylaxis: Protonix Plan: We will follow-up with vascular recommendation post operatively Case discussed with Dr. Thomason Problems: Subjective 24 Hr Interval Summary Free Text/Dictation No acute episodes.Had vascular intervention on 11/27/16 Exam/Review of Systems Vital Signs Vitals Vital Signs Date Time Temp Pulse Resp B/P Pulse Ox O2 Delivery O2 Flow Rate FiO2 11/28/16 07:51 98.2 70 20 162/78 99 Intake and Output 11/27/16 11/27/16 11/28/16 15:00 23:00 07:00 Intake Total 550 ml 100 ml 200 ml Balance 550 ml 100 ml 200 ml Exam General: Well developed,adequately built, not in any acute distress . HEENT: Normocephalic, Atraumatic, No laceration or hematoma; Eyes: PEERL, Conjunctiva clear, Anicteric sclera Neck: Supple without any lymphadenopathy, nontender, no JVD, no carotid bruits, trachea midline, no thyromegaly Cardiac: S1, S2 auscultated, regular rhythm and rate, no mumurs or gallop Pulmonary: Normal respiratory effort. Chest clear to auscultation bilaterally, no adventitious breath sounds GI: Abdomen normal to inspection. Soft, non tender, non- distended, no masses, no rebound tenderness or guarding. Bowel sounds active on all four quadrants Genitourinary: Deferred Extremities: Gangrenous toes bilateral,. No cyanosis, clubbing, or edema. Pulses [2+] bilaterally. Full ROM on all four extremities. No focal weakness appreciated. Neurologic: Alert to person, place, time, and situation. Affect appropriate, intact sensation. Skin: Clean,dry, and intact. No ecchymosis, no rashes, or lesions Results Result Diagram: 11/25/16 0450 11/27/16 0524 Results 24 hrs Laboratory Tests Test 11/27/16 18:35 11/28/16 06:08 Bedside Glucose 131 Lab Scanned Report BLOOD TRANSFUSION Medications Medications Current Medications Acetaminophen (Tylenol Tab) 650 mg Q6H PRN PO PAIN LEVEL 1-3 OR FEVER; Start at 16:00 Pantoprazole (Protonix Tab) 40 mg DAILY@06 PO Last administered on 11/28/16 06 :53; Admin Dose 40 MG; Start 11/13/16 at 06:00 Enoxaparin Sodium (Lovenox) 30 mg DAILY SC Last administered on 11/28/16 08:53 ; Admin Dose 30 MG; Start 11/13/16 at 09:00 Aspirin (Halfprin) 81 mg DAILY PO Last administered on 11/28/16 08:50; Admin Dose 81 MG; Start 11/13/16 at 09:00 Diltiazem HCl (Cardizem Cd) 180 mg DAILY PO Last administered on 11/28/16 08: 51; Admin Dose 180 MG; Start 11/13/16 at 09:00 Famotidine (Pepcid) 40 mg HS PO Last administered on 11/27/16 20:31; Admin Dose 40 MG; Start 11/12/16 at 21:00 Folic Acid (Folic Acid) 1 mg DAILY PO Last administered on 11/28/16 08:50; Admin Dose 1 MG; Start 11/13/16 at 09:00 Mycophenolate Mofetil (Cellcept) 1,000 mg BID PO Last administered on 08:49; Admin Dose 1,000 MG; Start 11/12/16 at 21:00 Metoprolol Tartrate (Lopressor) 75 mg BID PO Last administered on 11/28/16 08: 50; Admin Dose 75 MG; Start 11/12/16 at 21:00 Gabapentin 100 mg 100 mg TID PO Last administered on 11/28/16 08:51; Admin Dose 100 MG; Start 11/12/16 at 21:00 Levofloxacin/ Dextrose (Levaquin 500mg/ D5W 100 ml (Pmx)) 100 ml @ 100 mls/hr Q24H IVPB Last administered on 11/27/16 22:36; Admin Dose 100 MLS/HR; Start at 20:30 Benazepril HCl 10 mg 10 mg BID PO Last administered on 11/15/16 10:34; Admin Dose 10 MG; Start 11/14/16 at 11:00; Status Future Hold Metronidazole 100 ml @ 100 mls/hr Q8 IVPB Last administered on 11/28/16 06:52 ; Admin Dose 100 MLS/HR; Start 11/14/16 at 16:00 Daptomycin/Sodium Chloride (Cubicin/NS) 100 ml @ 200 mls/hr Q24H IVPB Last administered on 11/27/16 21:44; Admin Dose 200 MLS/HR; Start 11/14/16 at 17:00 Zolpidem Tartrate (Ambien) 5 mg HS PRN PO INSOMNIA; Start 11/15/16 at 23:30 Loperamide HCl (Imodium Cap) 2 mg QID PRN PO DIARRHEA Last administered on 11/17 12:51; Admin Dose 2 MG; Start 11/16/16 at 16:00 Acetaminophen/ Hydrocodone Bitart ([place] (5/325)) 1 tab Q6H PRN PO pain Last administered on 11/28/16 06:51; Admin Dose 1 TAB; Start 11/22/16 at 12:00 Morphine Sulfate (morphine) 2 mg Q4H PRN IV SEVERE PAIN LEVEL 7-10 Last administered on 11/27/16 20:25; Admin Dose 2 MG; Start 11/23/16 at 12:00 Tacrolimus (Prograf) 2 mg Q12 PO Last administered on 11/28/16 08:51; Admin Dose 2 MG; Start 11/24/16 at 10:00 Ondansetron HCl (Zofran Inj) 4 mg Q4H PRN IV NAUSEA AND/OR VOMITING; Start 11/27 at 17:30 Hydralazine HCl (Apresoline) 10 mg Q6H PRN IV ELEVATED BLOOD PRESSURE; Start at 21:00 Hydralazine HCl (Apresoline) 20 mg Q6H PRN IV ELEVATED BLOOD PRESSURE Last administered on 11/27/16t 21:42; Admin Dose 20 MG; Start 11/27/16 at 21:00 HELEN ANDREWS NP Nov 28, 2016 11:44
[2016-11-28 15:24] VITALS: BP 125/68; RESP 20
[2016-11-28] MEDS: DAPTOMYCIN IVPB SCH (17:36)
[2016-11-28] MEDS: SOD CHLORIDE 0.9% IVPB SCH (17:36)
--- NOTE | 2016-11-28 18:08 | CONS ---
Date/Time of Note Date/Time of Note DATE: 11/28/16 TIME: 18:07 Assessment/Plan Assessment/Plan Additional Assessment/Plan 1. 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 h/o donor kidney transplant in 2009 at [facility], currently on immunosuppression with Prograf, CellCept 4. 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 History of hypertension. 6. History of diabetes mellitus. 7. History of previous left upper extremity arteriovenous fistula. 8. Mild Metabolic acidosis, 9. Electrolyte imbalance- Hypercalcemia- resolved ,Hypokalemia- resolved, Hypomagnesemia- resolved Plan: IV abx as per Infectious disease service s/p LE angiogram yesterday, anothe rplanned on Friday D/c IV fluids Continue current immunosuppresion with prograf,cellcept, no prednisone due to hypercalcemia will continue to follow up Consultation Date/Type/Reason Admit Date/Time Nov 12, 2016 at 10:06 Initial Consult Date 11/12/16 Type of Consultation: NEPHROLOGY Referring Provider: KRISTIN HALL MD 24 HR Interval Summary Free Text/Dictation S/p Angiogram LE, cr stable Exam/Review of Systems Vital Signs Vitals Vital Signs Date Time Temp Pulse Resp B/P Pulse Ox O2 Delivery O2 Flow Rate FiO2 11/28/16 15:24 98.1 70 20 125/68 98 Intake and Output 11/27/16 11/27/16 11/28/16 15:00 23:00 07:00 Intake Total 550 ml 100 ml 200 ml Balance 550 ml 100 ml 200 ml Results GENERAL: VSS, NAD HEENT: Unremarkable -- NECK: Supple, trachea midline. CHEST: Rise symmetrical, without dyspnea on observation HEART: Pulse RRR ABDOMEN: Soft, benign EXTREMITIES: Warm -- gangrenous toes Result Diagram: 11/25/16 0450 11/27/16 0524 Results 24 hrs Laboratory Tests Test 11/27/16 18:35 11/28/16 06:08 Bedside Glucose 131 Lab Scanned Report BLOOD TRANSFUSION Medications Medications Current Medications Acetaminophen (Tylenol Tab) 650 mg Q6H PRN PO PAIN LEVEL 1-3 OR FEVER; Start at 16:00 Pantoprazole (Protonix Tab) 40 mg DAILY@06 PO Last administered on 11/28/16 06 :53; Admin Dose 40 MG; Start 11/13/16 at 06:00 Enoxaparin Sodium (Lovenox) 30 mg DAILY SC Last administered on 11/28/16 08:53 ; Admin Dose 30 MG; Start 11/13/16 at 09:00 Aspirin (Halfprin) 81 mg DAILY PO Last administered on 11/28/16 08:50; Admin Dose 81 MG; Start 11/13/16 at 09:00 Diltiazem HCl (Cardizem Cd) 180 mg DAILY PO Last administered on 11/28/16 08: 51; Admin Dose 180 MG; Start 11/13/16 at 09:00 Famotidine (Pepcid) 40 mg HS PO Last administered on 11/27/16 20:31; Admin Dose 40 MG; Start 11/12/16 at 21:00 Folic Acid (Folic Acid) 1 mg DAILY PO Last administered on 11/28/16 08:50; Admin Dose 1 MG; Start 11/13/16 at 09:00 Mycophenolate Mofetil (Cellcept) 1,000 mg BID PO Last administered on 08:49; Admin Dose 1,000 MG; Start 11/12/16 at 21:00 Metoprolol Tartrate (Lopressor) 75 mg BID PO Last administered on 11/28/16 08: 50; Admin Dose 75 MG; Start 11/12/16 at 21:00 Gabapentin 100 mg 100 mg TID PO Last administered on 11/28/16 13:13; Admin Dose 100 MG; Start 11/12/16 at 21:00 Levofloxacin/ Dextrose (Levaquin 500mg/ D5W 100 ml (Pmx)) 100 ml @ 100 mls/hr Q24H IVPB Last administered on 11/27/16 22:36; Admin Dose 100 MLS/HR; Start at 20:30 Benazepril HCl 10 mg 10 mg BID PO Last administered on 11/15/16 10:34; Admin Dose 10 MG; Start 11/14/16 at 11:00; Status Future Hold Metronidazole 100 ml @ 100 mls/hr Q8 IVPB Last administered on 11/28/16 13:13 ; Admin Dose 100 MLS/HR; Start 11/14/16 at 16:00 Daptomycin/Sodium Chloride (Cubicin/NS) 100 ml @ 200 mls/hr Q24H IVPB Last administered on 11/28/16 17:36; Admin Dose 200 MLS/HR; Start 11/14/16 at 17:00 Zolpidem Tartrate (Ambien) 5 mg HS PRN PO INSOMNIA; Start 11/15/16 at 23:30 Loperamide HCl (Imodium Cap) 2 mg QID PRN PO DIARRHEA Last administered on 11/17 12:51; Admin Dose 2 MG; Start 11/16/16 at 16:00 Acetaminophen/ Hydrocodone Bitart ([place] (5/325)) 1 tab Q6H PRN PO pain Last administered on 11/28/16 13:13; Admin Dose 1 TAB; Start 11/22/16 at 12:00 Morphine Sulfate (morphine) 2 mg Q4H PRN IV SEVERE PAIN LEVEL 7-10 Last administered on 11/27/16 20:25; Admin Dose 2 MG; Start 11/23/16 at 12:00 Tacrolimus (Prograf) 2 mg Q12 PO Last administered on 11/28/16 08:51; Admin Dose 2 MG; Start 11/24/16 at 10:00 Ondansetron HCl (Zofran Inj) 4 mg Q4H PRN IV NAUSEA AND/OR VOMITING; Start 11/27 at 17:30 Hydralazine HCl (Apresoline) 10 mg Q6H PRN IV ELEVATED BLOOD PRESSURE; Start at 21:00 Hydralazine HCl (Apresoline) 20 mg Q6H PRN IV ELEVATED BLOOD PRESSURE Last administered on 11/27/16 21:42; Admin Dose 20 MG; Start 11/27/16 at 21:00 RAMON KEMP MD Nov 28, 2016 18:08
--- NOTE | 2016-11-28 19:08 | CONS ---
Date/Time of Note Date/Time of Note DATE: 11/28/16 TIME: 19:05 Assessment/Plan Assessment/Plan Chief Complaint/Hosp Course IMP: 1. Pre-op for LE vascular procedure. Nl EF and no ischemia by lexiscan 11/13 only scar. Ok to proceed with surgery from CV standpoint at moderate risk 2.HTN-very labile. ? component of pain 3,CAD 4.PAD with nonhealing LE wounds. 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 -moderate by echo this admit Recc: -Now on med-surg -serial ecg's -Continue dilt/BB/ASA -local wound care -pending second stage of LE revascularization procedure -Follow volume status closely Problems: Consultation Date/Type/Reason Admit Date/Time Nov 12, 2016 at 10:06 Initial Consult Date 11/12/16 Type of Consultation: cardiology Reason for Consultation HTN/pre-op Referring Provider: KRISTIN HALL MD Exam/Review of Systems Vital Signs Vitals Vital Signs Date Time Temp Pulse Resp B/P Pulse Ox O2 Delivery O2 Flow Rate FiO2 11/28/16 15:24 98.1 70 20 125/68 98 Intake and Output 11/27/16 11/27/16 11/28/16 15:00 23:00 07:00 Intake Total 550 ml 100 ml 200 ml Balance 550 ml 100 ml 200 ml Exam Review of Systems: CONSTITUTIONAL: No fevers, chills. PULMONARY: No sob CARDIOVASCULAR: No chest pain/palpitations GASTROINTESTINAL: No nausea/vomiting. GENITOURINARY: No hematuria/dysuria. MUSCULOSKELETAL: mild pain in foot PSYCHIATRIC: The patient denies depression. NEUROLOGIC: No weakness Constitutional: alert Psych: no complaints Head: normocephalic ENMT: mucosa pink and moist Neck: jvd (8 cm water), supple Respiratory: diminished breath sounds (at bases/B) Cardiovascular: regular rate and rhythm Gastrointestinal: non-tender, soft Musculoskeletal: muscle weakness (mild generalized) Extremities: edema (none) Neurological: other (No focal deficits) Results Result Diagram: 11/25/16 0450 11/27/16 0524 Results 24 hrs Laboratory Tests Test 11/28/16 06:08 Lab Scanned Report BLOOD TRANSFUSION Medications Medications Current Medications Acetaminophen (Tylenol Tab) 650 mg Q6H PRN PO PAIN LEVEL 1-3 OR FEVER; Start at 16:00 Pantoprazole (Protonix Tab) 40 mg DAILY@06 PO Last administered on 11/28/16 06 :53; Admin Dose 40 MG; Start 11/13/16 at 06:00 Enoxaparin Sodium (Lovenox) 30 mg DAILY SC Last administered on 11/28/16 08:53 ; Admin Dose 30 MG; Start 11/13/16 at 09:00 Aspirin (Halfprin) 81 mg DAILY PO Last administered on 11/28/16 08:50; Admin Dose 81 MG; Start 11/13/16 at 09:00 Diltiazem HCl (Cardizem Cd) 180 mg DAILY PO Last administered on 11/28/16 08: 51; Admin Dose 180 MG; Start 11/13/16 at 09:00 Famotidine (Pepcid) 40 mg HS PO Last administered on 11/27/16 20:31; Admin Dose 40 MG; Start 11/12/16 at 21:00 Folic Acid (Folic Acid) 1 mg DAILY PO Last administered on 11/28/16 08:50; Admin Dose 1 MG; Start 11/13/16 at 09:00 Mycophenolate Mofetil (Cellcept) 1,000 mg BID PO Last administered on 08:49; Admin Dose 1,000 MG; Start 11/12/16 at 21:00 Metoprolol Tartrate (Lopressor) 75 mg BID PO Last administered on 11/28/16 08: 50; Admin Dose 75 MG; Start 11/12/16 at 21:00 Gabapentin 100 mg 100 mg TID PO Last administered on 11/28/16 13:13; Admin Dose 100 MG; Start 11/12/16 at 21:00 Levofloxacin/ Dextrose (Levaquin 500mg/ D5W 100 ml (Pmx)) 100 ml @ 100 mls/hr Q24H IVPB Last administered on 11/27/16 22:36; Admin Dose 100 MLS/HR; Start at 20:30 Benazepril HCl 10 mg 10 mg BID PO Last administered on 11/15/16 10:34; Admin Dose 10 MG; Start 11/14/16 at 11:00; Status Future Hold Metronidazole 100 ml @ 100 mls/hr Q8 IVPB Last administered on 11/28/16 13:13 ; Admin Dose 100 MLS/HR; Start 11/14/16 at 16:00 Daptomycin/Sodium Chloride (Cubicin/NS) 100 ml @ 200 mls/hr Q24H IVPB Last administered on 11/28/16 17:36; Admin Dose 200 MLS/HR; Start 11/14/16 at 17:00 Zolpidem Tartrate (Ambien) 5 mg HS PRN PO INSOMNIA; Start 11/15/16 at 23:30 Loperamide HCl (Imodium Cap) 2 mg QID PRN PO DIARRHEA Last administered on 11/17 12:51; Admin Dose 2 MG; Start 11/16/16 at 16:00 Acetaminophen/ Hydrocodone Bitart ([place] (5/325)) 1 tab Q6H PRN PO pain Last administered on 11/28/16 13:13; Admin Dose 1 TAB; Start 11/22/16 at 12:00 Morphine Sulfate (morphine) 2 mg Q4H PRN IV SEVERE PAIN LEVEL 7-10 Last administered on 11/27/16 20:25; Admin Dose 2 MG; Start 11/23/16 at 12:00 Tacrolimus (Prograf) 2 mg Q12 PO Last administered on 11/28/16 08:51; Admin Dose 2 MG; Start 11/24/16 at 10:00 Ondansetron HCl (Zofran Inj) 4 mg Q4H PRN IV NAUSEA AND/OR VOMITING; Start 11/27 at 17:30 Hydralazine HCl (Apresoline) 10 mg Q6H PRN IV ELEVATED BLOOD PRESSURE; Start at 21:00 Hydralazine HCl (Apresoline) 20 mg Q6H PRN IV ELEVATED BLOOD PRESSURE Last administered on 11/27/16 21:42; Admin Dose 20 MG; Start 11/27/16 at 21:00 TIMOTHY CORTES Nov 28, 2016 19:08
[2016-11-28 19:45] VITALS: BP 157/79; RESP 16
--- NOTE | 2016-11-28 20:37 | CONS ---
Date/Time of Note Date/Time of Note DATE: 11/28/16 TIME: 20:33 Assessment/Plan Assessment/Plan Chief Complaint/Hosp Course ID PROGRESS NOTE CURRENT ABX=> Levaquin IV #15 + Dapto #15 TOTAL ABX DAY #16 s/p Vanco PO 11/14-11/16 s/p Clindamycin-> DC"d due to severe diarrhea Vanco IV + Zosyn 11/12 24H INTERVAL SUMMARY * POD #1 =>s/p -Status post RIGHT FEM-POP Atherectomy w/angioplasty/stent * Resting with eyes closed, no fevers, VSS, family in the room with her, tell me she is doing the same, no complaints offered PHYSICAL EXAMINATION: GENERAL: VSS, NAD HEENT: Unremarkable -- NECK: Supple, trachea midline. CHEST: Rise symmetrical, without dyspnea on observation HEART: Pulse RRR ABDOMEN: Soft, benign EXTREMITIES: Warm -- gangrenous toes ID ASSESSMENT 61 yo F admit with: 1. 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 Severe peripheral vascular disease status post angiogram with angioplasty 3. Hx of donor kidney transplant 2009, on Prograf, CellCept and prednisone. 4. 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 h/o donor kidney transplant in 2009 at [facility], currently on immunosuppression with Prograf, CellCept 6. HTN -> Poorly controlled 7. DM w/complications of DM polyneuropathies: renal, peripheral 8. History of previous left upper extremity arteriovenous fistula. 9. (+)Diarrhea => ABX associated suspect C.Diff => C.Diff toxin (-) after initiation of ABX 10. Hx of Thrombocytopenia FEB admission on Zyvox 11. Hx of CAD, 11/13 Lexiscan MIBI: No reversibility, no new WMA, EF 70% at stress (- )MRSA Nares screening last admit 10/31/15 INVASIVES: PIV, ABX ALLERGY: KNDA CURRENT ABX= > Levaquin IV #15 + Dapto #15 TOTAL ABX DAY #16 s/p Vanco PO 11/14-11/16 s/p Clindamycin-> DC"d due to severe diarrhea Vanco IV + Zosyn 11/12 ID RECOMMENDATIONS May DC on current ABX x 28 days w/OP follow up APC 1. Pt is high risk immunocompromised host 2/2 DM + immunosuppressive renal Tx status 2. Hx of renal insufficiency with Vanco IV in the past, hx of thrombocytopenia w /Zyvox in the past * Dapto 6mg/kg pharmacy may adjust per renal => baseline CPK, ESR,CRP recorded. * HOLD STATIN while on DAPTO * Continue Levaquin . Problems: Consultation Date/Type/Reason Admit Date/Time Nov 12, 2016 at 10:06 Initial Consult Date 11/12/16 Type of Consultation: ID Referring Provider: KRISTIN HALL MD Exam/Review of Systems Vital Signs Vitals Vital Signs Date Time Temp Pulse Resp B/P Pulse Ox O2 Delivery O2 Flow Rate FiO2 11/28/16 15:24 98.1 70 20 125/68 98 Intake and Output 11/27/16 11/27/16 11/28/16 15:00 23:00 07:00 Intake Total 550 ml 100 ml 200 ml Balance 550 ml 100 ml 200 ml Results Result Diagram: 11/25/16 0450 11/27/16 0524 Results 24 hrs Laboratory Tests Test 11/28/16 06:08 Lab Scanned Report BLOOD TRANSFUSION Medications Medications Current Medications Acetaminophen (Tylenol Tab) 650 mg Q6H PRN PO PAIN LEVEL 1-3 OR FEVER; Start at 16:00 Pantoprazole (Protonix Tab) 40 mg DAILY@06 PO Last administered on 11/28/16 06 :53; Admin Dose 40 MG; Start 11/13/16 at 06:00 Enoxaparin Sodium (Lovenox) 30 mg DAILY SC Last administered on 11/28/16 08:53 ; Admin Dose 30 MG; Start 11/13/16 at 09:00 Aspirin (Halfprin) 81 mg DAILY PO Last administered on 11/28/16 08:50; Admin Dose 81 MG; Start 11/13/16 at 09:00 Diltiazem HCl (Cardizem Cd) 180 mg DAILY PO Last administered on 11/28/16 08: 51; Admin Dose 180 MG; Start 11/13/16 at 09:00 Famotidine (Pepcid) 40 mg HS PO Last administered on 11/27/16 20:31; Admin Dose 40 MG; Start 11/12/16 at 21:00 Folic Acid (Folic Acid) 1 mg DAILY PO Last administered on 11/28/16 08:50; Admin Dose 1 MG; Start 11/13/16 at 09:00 Mycophenolate Mofetil (Cellcept) 1,000 mg BID PO Last administered on 08:49; Admin Dose 1,000 MG; Start 11/12/16 at 21:00 Metoprolol Tartrate (Lopressor) 75 mg BID PO Last administered on 11/28/16 08: 50; Admin Dose 75 MG; Start 11/12/16 at 21:00 Gabapentin 100 mg 100 mg TID PO Last administered on 11/28/16 13:13; Admin Dose 100 MG; Start 11/12/16 at 21:00 Levofloxacin/ Dextrose (Levaquin 500mg/ D5W 100 ml (Pmx)) 100 ml @ 100 mls/hr Q24H IVPB Last administered on 11/27/16 22:36; Admin Dose 100 MLS/HR; Start at 20:30 Benazepril HCl 10 mg 10 mg BID PO Last administered on 11/15/16 10:34; Admin Dose 10 MG; Start 11/14/16 at 11:00; Status Future Hold Metronidazole 100 ml @ 100 mls/hr Q8 IVPB Last administered on 11/28/16 13:13 ; Admin Dose 100 MLS/HR; Start 11/14/16 at 16:00 Daptomycin/Sodium Chloride (Cubicin/NS) 100 ml @ 200 mls/hr Q24H IVPB Last administered on 11/28/16 17:36; Admin Dose 200 MLS/HR; Start 11/14/16 at 17:00 Zolpidem Tartrate (Ambien) 5 mg HS PRN PO INSOMNIA; Start 11/15/16 at 23:30 Loperamide HCl (Imodium Cap) 2 mg QID PRN PO DIARRHEA Last administered on 11/17 12:51; Admin Dose 2 MG; Start 11/16/16 at 16:00 Acetaminophen/ Hydrocodone Bitart ([place] (5/325)) 1 tab Q6H PRN PO pain Last administered on 11/28/16 13:13; Admin Dose 1 TAB; Start 11/22/16 at 12:00 Morphine Sulfate (morphine) 2 mg Q4H PRN IV SEVERE PAIN LEVEL 7-10 Last administered on 11/27/16 20:25; Admin Dose 2 MG; Start 11/23/16 at 12:00 Tacrolimus (Prograf) 2 mg Q12 PO Last administered on 11/28/16 08:51; Admin Dose 2 MG; Start 11/24/16 at 10:00 Ondansetron HCl (Zofran Inj) 4 mg Q4H PRN IV NAUSEA AND/OR VOMITING; Start 11/27 at 17:30 Hydralazine HCl (Apresoline) 10 mg Q6H PRN IV ELEVATED BLOOD PRESSURE; Start at 21:00 Hydralazine HCl (Apresoline) 20 mg Q6H PRN IV ELEVATED BLOOD PRESSURE Last administered on 11/27/16 21:42; Admin Dose 20 MG; Start 11/27/16 at 21:00 HAMZAH GARZA NP Nov 28, 2016 20:37
[2016-11-28] MEDS: FAMOTIDINE 20 MG TAB PO SCH (20:49)
[2016-11-28] MEDS: LEVOFLOXACIN 500MG/D5W (PMX) 100 ML IVPB SCH (20:49)
[2016-11-28] MEDS: morphine 2 MG INJ IV PRN ×2 (22:50→22:57)
--- NOTE | 2016-11-28 23:53 | PN ---
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 Subjective 24 Hr Interval Summary Patient was seen at bedside. Patient is in no acute distress. Denies overnight adverse events. Reports pain in her feet. Denies fever, chills, nausea or vomiting. Reports bandages are being changed daily. Denies recent trauma. Pain Control: moderate Exam/Review of Systems Vital Signs Vitals Vital Signs Date Time Temp Pulse Resp B/P Pulse Ox O2 Delivery O2 Flow Rate FiO2 11/30/16 07:20 98.3 69 18 117/62 97 Intake and Output 11/29/16 11/29/16 11/30/16 15:00 23:00 07:00 Intake Total 100 ml 1120 ml 450 ml Balance 100 ml 1120 ml 450 ml Exam Free Text/Dictation GENERAL: patient was seen at bedside; patient is in no acute distress, laying supine in bed VASC: pedal pulses not palpable bilateral feet; there is no edema; there is delayed CFT bilateral feet NEURO: sensation decreased to sharp, dull, vib and temp stimuli DERM: open necrotic wound right foot distal lateral part- s/p amputation of fifth toe; there is black eschar present; there is no erythema; no pus and no bleeding noted; open wound left foot at the amputation site of 4th and 5th toes with black eschar present; no pus and no bleeding noted; no erythema noted; no malodor present ORTHO: s/p amputation R5, L4, L5; contracted toes remaining toes; rectus foot type; tender to palpation bilateral feet IMAGING: reviewed LABS: reviewed Results Result Diagram: 11/27/16 0524 PHILLIP EMANUEL DPM Nov 28, 2016 23:53
[2016-11-29 02:14] VITALS: BP 128/73; RESP 18
[2016-11-29] MEDS: metroNIDAZOLE 500 MG/NS (PMX) 100 ML IVPB SCH ×3 (05:49→21:53)
[2016-11-29] MEDS: PANTOPRAZOLE (EC) 40 MG TAB PO SCH (05:49)
[2016-11-29 07:35] VITALS: BP 163/78; RESP 18
[2016-11-29] MEDS: HYDROCODONE/APAP (5/325) TAB PO PRN ×3 (07:40→20:41)
[2016-11-29] MEDS: MYCOPHENOLATE 250 MG CAP PO SCH ×2 (08:41→20:58)
[2016-11-29] MEDS: DILTIAZEM (CD) 180 MG CAP PO SCH (08:41)
[2016-11-29] MEDS: FOLIC ACID 1 MG TAB PO SCH (08:41)
[2016-11-29] MEDS: ASPIRIN (EC) 81 MG TAB PO SCH (08:41)
[2016-11-29] MEDS: GABAPENTIN 100 MG CAP PO SCH ×3 (08:41→20:42)
[2016-11-29] MEDS: TACROLIMUS 0.5 MG CAP PO SCH ×2 (08:42→20:42)
[2016-11-29] MEDS: METOPROLOL 25 MG TAB PO SCH ×2 (08:42→20:58)
[2016-11-29] MEDS: ENOXAPARIN 30 MG/0.3 ML SYG SC SCH (08:47)
--- NOTE | 2016-11-29 09:51 | PN ---
Date/Time of Note Date/Time of Note DATE: 11/29/16 TIME: 09:47 Assessment/Plan VTE Prophylaxis VTE Prophylaxis Intervention: LMWH Lines/Catheters IV Catheter Type (from [facility]): Peripheral IV Urinary Cath still in place: No Assessment/Plan Chief Complaint/Hosp Course 1.Significant peripheral vascular disease with bilateral lower extremities gangrene/critical limb ischemia of both legs requiring staged vascular intervention. -Status post RIGHT FEM-POP ATHERECTOMY, STENTING AND ANGIOPLASTY -Tentative plan for toe debridement on Friday and left LE angio on friday? -Continue aspirin, blood pressure management, statin and prophylactic anticoagulation. -F/u vascular recs. 2.Status post kidney transplant: - on immunosuppression with Prograf, CellCept -Nephrology on board and will follow recommendations-on Mucomyst for renal prophylaxis for vascular intervention 3. Hypertension. -Continue antihypertensives 4. Chronic anemia. -H&H stable. Will monitor. 5. Peripheral neuropathy. -Continue pain medications DVT prophylaxis: Lovenox PUD prophylaxis: Protonix Plan: We will follow-up with vascular recommendation. Again per vascular, plan is staged vascular intervention with tentative plan of tentative plan for toe debridement on Friday and left LE angio on Friday? Case discussed with Dr. Thomason Problems: Subjective 24 Hr Interval Summary Free Text/Dictation no acute overnight episodes. Exam/Review of Systems Vital Signs Vitals Vital Signs Date Time Temp Pulse Resp B/P Pulse Ox O2 Delivery O2 Flow Rate FiO2 11/29/16 07:35 98.7 77 18 163/78 100 Intake and Output 11/28/16 11/28/16 11/29/16 15:00 23:00 07:00 Intake Total 1200 ml 100 ml 450 ml Output Total 550 ml Balance 650 ml 100 ml 450 ml Exam General: Well developed,adequately built, not in any acute distress . HEENT: Normocephalic, Atraumatic, No laceration or hematoma; Eyes: PEERL, Conjunctiva clear, Anicteric sclera Neck: Supple without any lymphadenopathy, nontender, no JVD, no carotid bruits, trachea midline, no thyromegaly Cardiac: S1, S2 auscultated, regular rhythm and rate, no mumurs or gallop Pulmonary: Normal respiratory effort. Chest clear to auscultation bilaterally, no adventitious breath sounds GI: Abdomen normal to inspection. Soft, non tender, non- distended, no masses, no rebound tenderness or guarding. Bowel sounds active on all four quadrants Genitourinary: Deferred Extremities: Gangrenous toes bilateral,. No cyanosis, clubbing, or edema. Pulses [2+] bilaterally. Full ROM on all four extremities. No focal weakness appreciated. Neurologic: Alert to person, place, time, and situation. Affect appropriate, intact sensation. Skin: Clean,dry, and intact. No ecchymosis, no rashes, or lesions Results Result Diagram: 11/25/16 0450 11/27/16 0524 Results 24 hrs Laboratory Tests Test 11/29/16 06:15 Lab Scanned Report BLOOD TRANSFUSION Medications Medications Current Medications Acetaminophen (Tylenol Tab) 650 mg Q6H PRN PO PAIN LEVEL 1-3 OR FEVER; Start at 16:00 Pantoprazole (Protonix Tab) 40 mg DAILY@06 PO Last administered on 11/29/16 05 :49; Admin Dose 40 MG; Start 11/13/16 at 06:00 Enoxaparin Sodium (Lovenox) 30 mg DAILY SC Last administered on 11/29/16 08:47 ; Admin Dose 30 MG; Start 11/13/16 at 09:00 Aspirin (Halfprin) 81 mg DAILY PO Last administered on 11/29/16 08:41; Admin Dose 81 MG; Start 11/13/16 at 09:00 Diltiazem HCl (Cardizem Cd) 180 mg DAILY PO Last administered on 11/29/16 08: 41; Admin Dose 180 MG; Start 11/13/16 at 09:00 Famotidine (Pepcid) 40 mg HS PO Last administered on 11/28/16 20:49; Admin Dose 40 MG; Start 11/12/16 at 21:00 Folic Acid (Folic Acid) 1 mg DAILY PO Last administered on 11/29/16 08:41; Admin Dose 1 MG; Start 11/13/16 at 09:00 Mycophenolate Mofetil (Cellcept) 1,000 mg BID PO Last administered on 08:41; Admin Dose 1,000 MG; Start 11/12/16 at 21:00 Metoprolol Tartrate (Lopressor) 75 mg BID PO Last administered on 11/29/16 08: 42; Admin Dose 75 MG; Start 11/12/16 at 21:00 Gabapentin 100 mg 100 mg TID PO Last administered on 11/29/16 08:41; Admin Dose 100 MG; Start 11/12/16 at 21:00 Levofloxacin/ Dextrose (Levaquin 500mg/ D5W 100 ml (Pmx)) 100 ml @ 100 mls/hr Q24H IVPB Last administered on 11/28/16 20:49; Admin Dose 100 MLS/HR; Start at 20:30 Benazepril HCl 10 mg 10 mg BID PO Last administered on 11/15/16 10:34; Admin Dose 10 MG; Start 11/14/16 at 11:00; Status Future Hold Metronidazole 100 ml @ 100 mls/hr Q8 IVPB Last administered on 11/29/16 05:49 ; Admin Dose 100 MLS/HR; Start 11/14/16 at 16:00 Daptomycin/Sodium Chloride (Cubicin/NS) 100 ml @ 200 mls/hr Q24H IVPB Last administered on 11/28/16 17:36; Admin Dose 200 MLS/HR; Start 11/14/16 at 17:00 Zolpidem Tartrate (Ambien) 5 mg HS PRN PO INSOMNIA; Start 11/15/16 at 23:30 Loperamide HCl (Imodium Cap) 2 mg QID PRN PO DIARRHEA Last administered on 11/17 12:51; Admin Dose 2 MG; Start 11/16/16 at 16:00 Acetaminophen/ Hydrocodone Bitart ([place] (5/325)) 1 tab Q6H PRN PO pain Last administered on 11/29/16 07:40; Admin Dose 1 TAB; Start 11/22/16 at 12:00 Morphine Sulfate (morphine) 2 mg Q4H PRN IV SEVERE PAIN LEVEL 7-10 Last administered on 11/27/16 20:25; Admin Dose 2 MG; Start 11/23/16 at 12:00 Tacrolimus (Prograf) 2 mg Q12 PO Last administered on 11/29/16 08:42; Admin Dose 2 MG; Start 11/24/16 at 10:00 Ondansetron HCl (Zofran Inj) 4 mg Q4H PRN IV NAUSEA AND/OR VOMITING; Start 11/27 at 17:30 Hydralazine HCl (Apresoline) 10 mg Q6H PRN IV ELEVATED BLOOD PRESSURE; Start at 21:00 Hydralazine HCl (Apresoline) 20 mg Q6H PRN IV ELEVATED BLOOD PRESSURE Last administered on 11/27/16t 21:42; Admin Dose 20 MG; Start 11/27/16 at 21:00 HELEN ANDREWS NP Nov 29, 2016 09:51
[2016-11-29 14:15] VITALS: BP 122/65; RESP 16
--- NOTE | 2016-11-29 15:00 | CONS ---
Date/Time of Note Date/Time of Note DATE: 11/29/16 TIME: 14:59 Assessment/Plan Assessment/Plan Chief Complaint/Hosp Course IMP: 1. Pre-op for LE vascular procedure. Nl EF and no ischemia by lexiscan 11/13 only scar. Ok to proceed with surgery from CV standpoint at moderate risk 2.HTN-very labile. ? component of pain 3,CAD 4.PAD with nonhealing LE wounds. 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 -moderate by echo this admit Recc: -Now on med-surg -serial ecg's -Continue dilt/BB/ASA -add ACEI to improve BP control which is very labile -local wound care -pending second stage of LE revascularization procedure and debridement possibly tomorrow -Follow volume status closely Problems: Consultation Date/Type/Reason Admit Date/Time Nov 12, 2016 at 10:06 Initial Consult Date 11/12/16 Type of Consultation: cardiology Reason for Consultation HTN Referring Provider: KRISTIN HALL MD Exam/Review of Systems Vital Signs Vitals Vital Signs Date Time Temp Pulse Resp B/P Pulse Ox O2 Delivery O2 Flow Rate FiO2 11/29/16 07:35 98.7 77 18 163/78 100 Intake and Output 11/28/16 11/28/16 11/29/16 15:00 23:00 07:00 Intake Total 1200 ml 100 ml 450 ml Output Total 550 ml Balance 650 ml 100 ml 450 ml Exam Review of Systems: CONSTITUTIONAL: No fevers, chills. PULMONARY: No sob CARDIOVASCULAR: No chest pain/palpitations GASTROINTESTINAL: No nausea/vomiting. GENITOURINARY: No hematuria/dysuria. MUSCULOSKELETAL: mild pain in foot PSYCHIATRIC: The patient denies depression. NEUROLOGIC: No weakness Constitutional: alert Psych: no complaints Head: normocephalic ENMT: mucosa pink and moist Neck: jvd, supple Respiratory: diminished breath sounds (at basews/B) Cardiovascular: regular rate and rhythm Gastrointestinal: non-tender, soft Musculoskeletal: muscle tone (normal) Extremities: edema (none) Neurological: other (No focal deficits) Results Result Diagram: 11/25/16 0450 11/27/16 0524 Results 24 hrs Laboratory Tests Test 11/29/16 06:15 Lab Scanned Report BLOOD TRANSFUSION Medications Medications Current Medications Acetaminophen (Tylenol Tab) 650 mg Q6H PRN PO PAIN LEVEL 1-3 OR FEVER; Start at 16:00 Pantoprazole (Protonix Tab) 40 mg DAILY@06 PO Last administered on 11/29/16 05 :49; Admin Dose 40 MG; Start 11/13/16 at 06:00 Enoxaparin Sodium (Lovenox) 30 mg DAILY SC Last administered on 11/29/16 08:47 ; Admin Dose 30 MG; Start 11/13/16 at 09:00 Aspirin (Halfprin) 81 mg DAILY PO Last administered on 11/29/16 08:41; Admin Dose 81 MG; Start 11/13/16 at 09:00 Diltiazem HCl (Cardizem Cd) 180 mg DAILY PO Last administered on 11/29/16 08: 41; Admin Dose 180 MG; Start 11/13/16 at 09:00 Famotidine (Pepcid) 40 mg HS PO Last administered on 11/28/16 20:49; Admin Dose 40 MG; Start 11/12/16 at 21:00 Folic Acid (Folic Acid) 1 mg DAILY PO Last administered on 11/29/16 08:41; Admin Dose 1 MG; Start 11/13/16 at 09:00 Mycophenolate Mofetil (Cellcept) 1,000 mg BID PO Last administered on 08:41; Admin Dose 1,000 MG; Start 11/12/16 at 21:00 Metoprolol Tartrate (Lopressor) 75 mg BID PO Last administered on 11/29/16 08: 42; Admin Dose 75 MG; Start 11/12/16 at 21:00 Gabapentin 100 mg 100 mg TID PO Last administered on 11/29/16 13:34; Admin Dose 100 MG; Start 11/12/16 at 21:00 Levofloxacin/ Dextrose (Levaquin 500mg/ D5W 100 ml (Pmx)) 100 ml @ 100 mls/hr Q24H IVPB Last administered on 11/28/16 20:49; Admin Dose 100 MLS/HR; Start at 20:30 Benazepril HCl 10 mg 10 mg BID PO Last administered on 11/15/16 10:34; Admin Dose 10 MG; Start 11/14/16 at 11:00; Status Future Hold Metronidazole 100 ml @ 100 mls/hr Q8 IVPB Last administered on 11/29/16 13:39 ; Admin Dose 100 MLS/HR; Start 11/14/16 at 16:00 Daptomycin/Sodium Chloride (Cubicin/NS) 100 ml @ 200 mls/hr Q24H IVPB Last administered on 11/28/16 17:36; Admin Dose 200 MLS/HR; Start 11/14/16 at 17:00 Zolpidem Tartrate (Ambien) 5 mg HS PRN PO INSOMNIA; Start 11/15/16 at 23:30 Loperamide HCl (Imodium Cap) 2 mg QID PRN PO DIARRHEA Last administered on 11/17 12:51; Admin Dose 2 MG; Start 11/16/16 at 16:00 Acetaminophen/ Hydrocodone Bitart ([place] (5/325)) 1 tab Q6H PRN PO pain Last administered on 11/29/16 13:34; Admin Dose 1 TAB; Start 11/22/16 at 12:00 Morphine Sulfate (morphine) 2 mg Q4H PRN IV SEVERE PAIN LEVEL 7-10 Last administered on 11/27/16 20:25; Admin Dose 2 MG; Start 11/23/16 at 12:00 Tacrolimus (Prograf) 2 mg Q12 PO Last administered on 11/29/16 08:42; Admin Dose 2 MG; Start 11/24/16 at 10:00 Ondansetron HCl (Zofran Inj) 4 mg Q4H PRN IV NAUSEA AND/OR VOMITING; Start 11/27 at 17:30 Hydralazine HCl (Apresoline) 10 mg Q6H PRN IV ELEVATED BLOOD PRESSURE; Start at 21:00 Hydralazine HCl (Apresoline) 20 mg Q6H PRN IV ELEVATED BLOOD PRESSURE Last administered on 11/27/16 21:42; Admin Dose 20 MG; Start 11/27/16 at 21:00 TIMOTHY CORTES Nov 29, 2016 15:00
--- NOTE | 2016-11-29 15:33 | CONS ---
Date/Time of Note Date/Time of Note DATE: 11/29/16 TIME: 15:32 Assessment/Plan Assessment/Plan Additional Assessment/Plan 1. 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 h/o donor kidney transplant in 2009 at [facility], currently on immunosuppression with Prograf, CellCept 4. 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 History of hypertension. 6. History of diabetes mellitus. 7. History of previous left upper extremity arteriovenous fistula. 8. Mild Metabolic acidosis, 9. Electrolyte imbalance- Hypercalcemia- resolved ,Hypokalemia- resolved, Hypomagnesemia- resolved Plan: IV abx as per Infectious disease service s/p LE angiogram on , another planned on , Cr normal, will give IVF startin on Friday morning Continue current immunosuppresion with prograf,cellcept, no prednisone due to hypercalcemia will continue to follow up Consultation Date/Type/Reason Admit Date/Time Nov 12, 2016 at 10:06 Initial Consult Date 11/12/16 Type of Consultation: NEPHROLOGY Referring Provider: KRISTIN HALL MD 24 HR Interval Summary Free Text/Dictation Cr stable normal, BP stable, Plan for possible angiogram on friday Exam/Review of Systems Vital Signs Vitals Vital Signs Date Time Temp Pulse Resp B/P Pulse Ox O2 Delivery O2 Flow Rate FiO2 11/29/16 14:15 98.1 65 16 122/65 100 Intake and Output 11/28/16 11/28/16 11/29/16 15:00 23:00 07:00 Intake Total 1200 ml 100 ml 450 ml Output Total 550 ml Balance 650 ml 100 ml 450 ml Results Result Diagram: 11/25/16 0450 11/27/16 0524 Results 24 hrs Laboratory Tests Test 11/29/16 06:15 Lab Scanned Report BLOOD TRANSFUSION Medications Medications Current Medications Acetaminophen (Tylenol Tab) 650 mg Q6H PRN PO PAIN LEVEL 1-3 OR FEVER; Start at 16:00 Pantoprazole (Protonix Tab) 40 mg DAILY@06 PO Last administered on 11/29/16t 05 :49; Admin Dose 40 MG; Start 11/13/16 at 06:00 Enoxaparin Sodium (Lovenox) 30 mg DAILY SC Last administered on 11/29/16 08:47 ; Admin Dose 30 MG; Start 11/13/16 at 09:00 Aspirin (Halfprin) 81 mg DAILY PO Last administered on 11/29/16 08:41; Admin Dose 81 MG; Start 11/13/16 at 09:00 Diltiazem HCl (Cardizem Cd) 180 mg DAILY PO Last administered on 11/29/16 08: 41; Admin Dose 180 MG; Start 11/13/16 at 09:00 Famotidine (Pepcid) 40 mg HS PO Last administered on 11/28/16 20:49; Admin Dose 40 MG; Start 11/12/16 at 21:00 Folic Acid (Folic Acid) 1 mg DAILY PO Last administered on 11/29/16 08:41; Admin Dose 1 MG; Start 11/13/16 at 09:00 Mycophenolate Mofetil (Cellcept) 1,000 mg BID PO Last administered on 08:41; Admin Dose 1,000 MG; Start 11/12/16 at 21:00 Metoprolol Tartrate (Lopressor) 75 mg BID PO Last administered on 11/29/16 08: 42; Admin Dose 75 MG; Start 11/12/16 at 21:00 Gabapentin 100 mg 100 mg TID PO Last administered on 11/29/16 13:34; Admin Dose 100 MG; Start 11/12/16 at 21:00 Levofloxacin/ Dextrose 100 ml @ 100 mls/hr Q24H IVPB Last administered on 11/28 20:49; Admin Dose 100 MLS/HR; Start 11/13/16 at 20:30 Metronidazole 100 ml @ 100 mls/hr Q8 IVPB Last administered on 11/29/16 13:39 ; Admin Dose 100 MLS/HR; Start 11/14/16 at 16:00 Daptomycin/Sodium Chloride (Cubicin/NS) 100 ml @ 200 mls/hr Q24H IVPB Last administered on 11/28/16 17:36; Admin Dose 200 MLS/HR; Start 11/14/16 at 17:00 Zolpidem Tartrate (Ambien) 5 mg HS PRN PO INSOMNIA; Start 11/15/16 at 23:30 Loperamide HCl (Imodium Cap) 2 mg QID PRN PO DIARRHEA Last administered on 11/17 12:51; Admin Dose 2 MG; Start 11/16/16 at 16:00 Acetaminophen/ Hydrocodone Bitart ([place] (5/325)) 1 tab Q6H PRN PO pain Last administered on 11/29/16 13:34; Admin Dose 1 TAB; Start 11/22/16 at 12:00 Morphine Sulfate (morphine) 2 mg Q4H PRN IV SEVERE PAIN LEVEL 7-10 Last administered on 11/27/16 20:25; Admin Dose 2 MG; Start 11/23/16 at 12:00 Tacrolimus (Prograf) 2 mg Q12 PO Last administered on 11/29/16 08:42; Admin Dose 2 MG; Start 11/24/16 at 10:00 Ondansetron HCl (Zofran Inj) 4 mg Q4H PRN IV NAUSEA AND/OR VOMITING; Start 11/27 at 17:30 Hydralazine HCl (Apresoline) 10 mg Q6H PRN IV ELEVATED BLOOD PRESSURE; Start at 21:00 Hydralazine HCl (Apresoline) 20 mg Q6H PRN IV ELEVATED BLOOD PRESSURE Last administered on 11/27/16 21:42; Admin Dose 20 MG; Start 11/27/16 at 21:00 Benazepril HCl (Lotensin) 10 mg DAILY PO ; Start 11/30/16 at 09:00 RAMON KEMP MD Nov 29, 2016 15:33
--- NOTE | 2016-11-29 16:37 | PN ---
Date/Time of Note Date/Time of Note DATE: 11/29/16 TIME: 16:32 Assessment/Plan Lines/Catheters IV Catheter Type (from [facility]): Saline Lock [place] in Place (from Nrs): No Assessment/Plan Problems: (1) Acquired absence of other left toe(s) (2) Non-pressure chronic ulcer of other part of left foot with fat layer exposed (3) Genitourinary symptoms Status: Acute (4) Encounter for wound re-check Status: Acute (5) Peripheral vascular disease Status: Chronic (6) Toe gangrene Status: Chronic (7) Essential hypertension Status: Chronic (8) Diabetes mellitus type 2 with complications Status: Chronic Qualifiers: Diabetes mellitus intermediate insulin use: with manager long term care use Qualified Code : E11.8 - Type 2 diabetes mellitus with complication, with long-term current use of insulin Assessment/Plan Patient is scheduled for surgical debridement of open wound bilateral feet tomorrow morning at 730. Patient's orders have been placed. Patient will be seen in the operating room in the morning Subjective 24 Hr Interval Summary Patient was seen and examined at bedside. Patient is in no acute distress laying supine in bed. Reports pain in both feet. Status post right lower extremity arterial angiography. Denies fever and chills. Constitutional: no complaints Pain Control: well controlled Exam/Review of Systems Vital Signs Vitals Vital Signs Date Time Temp Pulse Resp B/P Pulse Ox O2 Delivery O2 Flow Rate FiO2 11/29/16 14:15 98.1 65 16 122/65 100 Intake and Output 11/28/16 11/28/16 11/29/16 15:00 23:00 07:00 Intake Total 1200 ml 100 ml 450 ml Output Total 550 ml Balance 650 ml 100 ml 450 ml Exam Free Text/Dictation Status post right fifth toe amputation with necrotic wound presents. Cyanotic toes improved on the right foot. Status post left fourth and fifth toe amputations with necrotic tissue present. Nonpalpable pedal pulses bilaterally. No erythema noted. No edema. Tender to palpation. Labs reviewed. Results Result Diagram: 11/25/16 0450 11/27/16 0524 PHILLIP EMANUEL DPM Nov 29, 2016 16:37
[2016-11-29] MEDS: SOD CHLORIDE 0.9% IVPB SCH (17:32)
[2016-11-29] MEDS: DAPTOMYCIN IVPB SCH (17:32)
[2016-11-29 20:00] VITALS: BP 143/69; RESP 19
[2016-11-29] MEDS: FAMOTIDINE 20 MG TAB PO SCH (20:42)
[2016-11-29] MEDS: LEVOFLOXACIN 500MG/D5W (PMX) 100 ML IVPB SCH (20:45)
--- NOTE | 2016-11-29 23:52 | CONS ---
Date/Time of Note Date/Time of Note DATE: 11/29/16 TIME: 23:49 Assessment/Plan Assessment/Plan Chief Complaint/Hosp Course ID PROGRESS NOTE => I rounded earlier today about 1500 with note placed later tonight CURRENT ABX=> Levaquin IV #16 + Dapto #16 TOTAL ABX DAY #16 s/p Vanco PO 11/14-11/16 s/p Clindamycin-> DC"d due to severe diarrhea Vanco IV + Zosyn 11/12 24H INTERVAL SUMMARY * POD #2=>s/p -Status post RIGHT FEM-POP Atherectomy w/angioplasty/stent * Awake, alert, doing well post procedure, foot is warm, still has pain issues, no fevers, PHYSICAL EXAMINATION: GENERAL: VSS, NAD HEENT: Unremarkable -- NECK: Supple, trachea midline. CHEST: Rise symmetrical, without dyspnea on observation HEART: Pulse RRR ABDOMEN: Soft, benign EXTREMITIES: Warm -- gangrenous toes ID ASSESSMENT 61 yo F admit with: 1. 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 Severe peripheral vascular disease status post angiogram with angioplasty 3. Hx of donor kidney transplant 2009, on Prograf, CellCept and prednisone. 4. 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 h/o donor kidney transplant in 2009 at [facility], currently on immunosuppression with Prograf, CellCept 6. HTN -> Poorly controlled 7. DM w/complications of DM polyneuropathies: renal, peripheral 8. History of previous left upper extremity arteriovenous fistula. 9. (+)Diarrhea => ABX associated suspect C.Diff => C.Diff toxin (-) after initiation of ABX 10. Hx of Thrombocytopenia FEB admission on Zyvox 11. Hx of CAD, 11/13 Lexiscan MIBI: No reversibility, no new WMA, EF 70% at stress (- )MRSA Nares screening last admit 10/31/15 INVASIVES: PIV, ABX ALLERGY: KNDA CURRENT ABX=> Levaquin IV #16 + Dapto #16 TOTAL ABX DAY #16 s/p Vanco PO 11/14-11/16 s/p Clindamycin-> DC"d due to severe diarrhea Vanco IV + Zosyn 11/12 ID RECOMMENDATIONS May DC on current ABX x 28 days w/OP follow up APC 1. Pt is high risk immunocompromised host 2/2 DM + immunosuppressive renal Tx status 2. Hx of renal insufficiency with Vanco IV in the past, hx of thrombocytopenia w /Zyvox in the past * Dapto 6mg/kg pharmacy may adjust per renal => baseline CPK, ESR,CRP recorded. * HOLD STATIN while on DAPTO * Continue Levaquin . Problems: Consultation Date/Type/Reason Admit Date/Time Nov 12, 2016 at 10:06 Initial Consult Date 11/12/16 Type of Consultation: ID Referring Provider: KRISTIN HALL MD Exam/Review of Systems Vital Signs Vitals Vital Signs Date Time Temp Pulse Resp B/P Pulse Ox O2 Delivery O2 Flow Rate FiO2 11/29/16 20:00 98.5 70 19 143/69 100 Intake and Output 11/28/16 11/28/16 11/29/16 14:59 22:59 06:59 Intake Total 1200 ml 100 ml 450 ml Output Total 550 ml Balance 650 ml 100 ml 450 ml Results Result Diagram: 11/25/16 0450 11/27/16 0524 Results 24 hrs Laboratory Tests Test 11/29/16 06:15 Lab Scanned Report BLOOD TRANSFUSION Medications Medications Current Medications Acetaminophen (Tylenol Tab) 650 mg Q6H PRN PO PAIN LEVEL 1-3 OR FEVER; Start at 16:00 Pantoprazole (Protonix Tab) 40 mg DAILY@06 PO Last administered on 11/29/16 05 :49; Admin Dose 40 MG; Start 11/13/16 at 06:00 Enoxaparin Sodium (Lovenox) 30 mg DAILY SC Last administered on 11/29/16 08:47 ; Admin Dose 30 MG; Start 11/13/16 at 09:00 Aspirin (Halfprin) 81 mg DAILY PO Last administered on 11/29/16 08:41; Admin Dose 81 MG; Start 11/13/16 at 09:00 Diltiazem HCl (Cardizem Cd) 180 mg DAILY PO Last administered on 11/29/16 08: 41; Admin Dose 180 MG; Start 11/13/16 at 09:00 Famotidine (Pepcid) 40 mg HS PO Last administered on 11/29/16 20:42; Admin Dose 40 MG; Start 11/12/16 at 21:00 Folic Acid (Folic Acid) 1 mg DAILY PO Last administered on 11/29/16 08:41; Admin Dose 1 MG; Start 11/13/16 at 09:00 Mycophenolate Mofetil (Cellcept) 1,000 mg BID PO Last administered on 20:58; Admin Dose 1,000 MG; Start 11/12/16 at 21:00 Metoprolol Tartrate (Lopressor) 75 mg BID PO Last administered on 11/29/16 20: 58; Admin Dose 75 MG; Start 11/12/16 at 21:00 Gabapentin 100 mg 100 mg TID PO Last administered on 11/29/16 20:42; Admin Dose 100 MG; Start 11/12/16 at 21:00 Levofloxacin/ Dextrose 100 ml @ 100 mls/hr Q24H IVPB Last administered on 11/29 20:45; Admin Dose 100 MLS/HR; Start 11/13/16 at 20:30 Metronidazole 100 ml @ 100 mls/hr Q8 IVPB Last administered on 11/29/16 21:53 ; Admin Dose 100 MLS/HR; Start 11/14/16 at 16:00 Daptomycin/Sodium Chloride (Cubicin/NS) 100 ml @ 200 mls/hr Q24H IVPB Last administered on 11/29/16 17:32; Admin Dose 200 MLS/HR; Start 11/14/16 at 17:00 Zolpidem Tartrate (Ambien) 5 mg HS PRN PO INSOMNIA; Start 11/15/16 at 23:30 Loperamide HCl (Imodium Cap) 2 mg QID PRN PO DIARRHEA Last administered on 11/17 12:51; Admin Dose 2 MG; Start 11/16/16 at 16:00 Acetaminophen/ Hydrocodone Bitart ([place] (5/325)) 1 tab Q6H PRN PO pain Last administered on 11/29/16 20:41; Admin Dose 1 TAB; Start 11/22/16 at 12:00 Morphine Sulfate (morphine) 2 mg Q4H PRN IV SEVERE PAIN LEVEL 7-10 Last administered on 11/27/16 20:25; Admin Dose 2 MG; Start 11/23/16 at 12:00 Tacrolimus (Prograf) 2 mg Q12 PO Last administered on 11/29/16 20:42; Admin Dose 2 MG; Start 11/24/16 at 10:00 Ondansetron HCl (Zofran Inj) 4 mg Q4H PRN IV NAUSEA AND/OR VOMITING; Start 11/27 at 17:30 Hydralazine HCl (Apresoline) 10 mg Q6H PRN IV ELEVATED BLOOD PRESSURE; Start at 21:00 Hydralazine HCl (Apresoline) 20 mg Q6H PRN IV ELEVATED BLOOD PRESSURE Last administered on 11/27/16 21:42; Admin Dose 20 MG; Start 11/27/16 at 21:00 Benazepril HCl (Lotensin) 10 mg DAILY PO ; Start 11/30/16 at 09:00 HAMZAH GARZA NP Nov 29, 2016 23:52
[2016-11-30] VITALS (22 sets, daily range): BP systolic 117–160; BP diastolic 62–80; PULSE 72–88; RESP 9–19
[2016-11-30] MEDS: morphine 2 MG INJ IV PRN ×2 (02:00→17:21)
[2016-11-30] MEDS: HYDROCODONE/APAP (5/325) TAB PO PRN ×3 (05:31→19:54)
[2016-11-30] MEDS: PANTOPRAZOLE (EC) 40 MG TAB PO SCH (05:31)
[2016-11-30] MEDS: metroNIDAZOLE 500 MG/NS (PMX) 100 ML IVPB SCH ×3 (05:31→22:06)
[2016-11-30] MEDS ORDERED: FENTAnyl 50 MCG/ML VIAL ONE ×2 (07:51→08:15)
--- NOTE | 2016-11-30 07:53 | HPN ---
Date/Time of Note Date/Time of Note DATE: 11/30/16 TIME: 07:53 Interval H&P Admission Note Pt. seen H&P reviewed: No system changes PHILLIP EMANUEL DPM Nov 30, 2016 07:53
[2016-11-30] MEDS ORDERED: FENTAnyl 50 MCG/ML VIAL IV PRN (08:00)
[2016-11-30] MEDS ORDERED: ALBUMIN HUMAN 5% 250 ML IV PRN (08:00)
[2016-11-30] MEDS ORDERED: OXYCODONE/ACETAMINOPHEN (5/325) TAB PO PRN (08:00)
[2016-11-30] MEDS ORDERED: ONDANSETRON 4 MG INJ IV PRN (08:00)
[2016-11-30] MEDS ORDERED: EPHEDrine SULFATE 50 MG/5 ML SYG IV PRN (08:00)
[2016-11-30] MEDS ORDERED: LABETALOL HCL 20MG INJ IV PRN (08:00)
[2016-11-30] MEDS ORDERED: morphine (1 MG/ML) 10ML SYRINGE IV PRN (08:00)
[2016-11-30] MEDS ORDERED: DIPHENHYDRAMINE 50 MG INJ IV PRN (08:00)
[2016-11-30] MEDS ORDERED: hydrALAzine 20 MG INJ IV PRN (08:00)
[2016-11-30] MEDS ORDERED: POLYMYXIN/BACITRACIN 1L IRRIG IRR ONE (08:12)
[2016-11-30] MEDS ORDERED: PROPOFOL 20 ML ONE (08:15)
[2016-11-30] MEDS ORDERED: CEFAZOLIN 1 GM INJ ONE (08:15)
[2016-11-30] MEDS ORDERED: METOCLOPRAMIDE 10 MG INJ ONE (08:16)
[2016-11-30] MEDS ORDERED: ONDANSETRON 4 MG INJ ONE (08:16)
[2016-11-30] MEDS ORDERED: POLYMYXIN/BACITRACIN 1L IRRIG ONE (08:17)
--- NOTE | 2016-11-30 08:52 | OPPN ---
Date/Time of Note Date/Time of Note DATE: 11/30/16 TIME: 08:50 Operative Report Preoperative Diagnosis Necrotic open wound right foot with bone exposed Necrotic open wound left foot with bone exposed Severe PVD DM with polyneuropathy S/P amputation R5, L4, L5 toes Postoperative Diagnosis Necrotic open wound right foot with bone exposed Necrotic open wound left foot with bone exposed Severe PVD DM with polyneuropathy S/P amputation R5, L4, L5 toes Operation/Procedure Performed Excisional debridement of open necrotic wound of the right foot Excisional debridement of open necrotic wound of the left foot Provider: PHILLIP EMANUEL DPM Anesthesia Type: general Estimated blood loss: minimal Transfusion Required: no Specimens Debrided tissue from bilateral feet Grafts/Implants: none Complications: no PHILLIP EMANUEL DPM Nov 30, 2016 08:52
--- NOTE | 2016-11-30 08:54 | OPR ---
Date/Time of Note Date/Time of Note DATE: 11/30/16 TIME: 08:52 Operative Report Procedure Date: Nov 30, 2016 Preoperative Diagnosis Necrotic open wound right foot with bone exposed Necrotic open wound left foot with bone exposed Severe PVD DM with polyneuropathy S/P amputation R5, L4, L5 toes Postoperative Diagnosis Necrotic open wound right foot with bone exposed Necrotic open wound left foot with bone exposed Severe PVD DM with polyneuropathy S/P amputation R5, L4, L5 toes Operation Performed Excisional debridement of open wound of the right foot Excisional debridement of open wound of the left foot Surgeon: PHILLIP EMANUEL DPM Anesthesia Type: general Estimated Blood Loss: minimal Transfusion Required: no Specimens Debrided necrotic soft tissue from bilateral feet Grafts/Implants: none Complications: no Pt Condition Post Procedure: stable Disposition: PACU Indications This is a pleasant 61-year-old female patient who is been suffering with severe peripheral vascular disease of bilateral lower extremity and has undergone amputation of her right fifth toe secondary to gangrene and amputation of her left fourth and fifth toes secondary to gangrene. Patient has been recently hospitalized with increase in pain in both feet with worsening of her peripheral vascular disease and necrotic tissue of both feet at the sites of the amputation. Patient has been under care of vascular surgery and has recently undergone right lower extremity angiography which has apparently increased her blood flow to the right lower leg and is demonstrating clinical improvement as far as her wound is concerned. She continues to have black eschar on both feet at the sites of previous amputations and requires surgical debridements. She has been scheduled for this morning. Patient is aware of the procedure. I have discussed risks and complications of this type surgery with patient in great detail. Risks and complications discussed, include but are not limited to, worsening of her condition, postoperative infection, need for additional surgical procedures, need for more proximal amputation, failure of surgery to correct the problem, deep venous thrombosis, limb loss and loss of life. An opportunity was given to patient to ask questions and all questions were answered. Patient acknowledges understanding of the discussion. An informed consent was obtained, signed and placed in the chart. No guarantee or warranty was given or implied as to the outcome of the procedure either in verbal or written form. Operative\Procedure Findings Right foot black eschar over the site of amputation of the right fifth toe with necrotic soft tissue. Left foot black eschar with necrotic tissue over the site of amputation of the left fourth and fifth toes. Procedure Description The patient was seen in the preoperative area. The proposed surgery was discussed with patient in great detail. Risks and complications of this type of surgery was discussed with patient in great detail. Opportunity was given to patient to ask questions and all questions were answered. The patient acknowledges understanding of the discussion. An informed consent was then obtained, signed and placed in the chart. Patient was taken to the operating room and was placed on the operating table in the supine position. All bony prominences were padded properly. A timeout was called by the circulating nurse. Everyone in the operating room was agreeable to the timeout. The patient was then placed under general anesthesia by the anesthesiologist. Procedure #1: Surgical debridement of right foot open wound Attention was directed to right foot base of fifth metatarsal phalangeal joint. She is status post amputation of the right fifth toe.. Black eschar is present with no surrounding erythema and no ecchymosis. A sharp #15 blade was utilized to sharply debride the black eschar. A rongeur was used to debride necrotic soft tissue to bleeding tissue. The area measures 2 x 3 cm. Exposed metatarsal head noted. Malodor is absent and there is no purulent drainage. I flushed the wound using power irrigation. The wound was approximated using 0 Prolene in simple suture technique which reduced the volume of the wound. Procedure #2: Surgical debridement of the left foot open wound Attention was directed to the left foot at the amputation site of fourth and fifth toes. Again, noted is black eschar with necrotic tissue in an open wound measuring 3 x 3 cm. a sharp #15 blade was used to excise the necrotic soft tissue all the way down to the level of bone. There was not much bleeding noted on the left foot as compared to the right foot. No pus and no underlying fluctuance noted. No malodor present. Iodoform packing was used along with sterile dressing on both feet. The patient tolerated the procedure and anesthesia well. Patient was then taken to the recovery room with vital signs stable and vascular status intact to remainder of both feet. Postoperative orders were written. Patient is to remain nonweightbearing on both feet. Patient will be followed in-house. PHILLIP EMANUEL DPM Nov 30, 2016 08:54
[2016-11-30] MEDS: ENOXAPARIN 30 MG/0.3 ML SYG SC SCH (09:00)
[2016-11-30] MEDS: FENTAnyl 50 MCG/ML VIAL IV PRN ×4 (09:00→09:38)
[2016-11-30] MEDS: morphine (1 MG/ML) 10ML SYRINGE IV PRN ×2 (09:37→09:49)
[2016-11-30] MEDS: ASPIRIN (EC) 81 MG TAB PO SCH (11:25)
[2016-11-30] MEDS: GABAPENTIN 100 MG CAP PO SCH ×3 (11:26→20:39)
[2016-11-30] MEDS: DILTIAZEM (CD) 180 MG CAP PO SCH (11:26)
[2016-11-30] MEDS: MYCOPHENOLATE 250 MG CAP PO SCH ×2 (11:26→20:39)
[2016-11-30] MEDS: FOLIC ACID 1 MG TAB PO SCH (11:26)
[2016-11-30] MEDS: METOPROLOL 25 MG TAB PO SCH ×2 (11:27→20:40)
[2016-11-30] MEDS: BENAZEPRIL 10 MG TAB PO SCH (11:27)
[2016-11-30] MEDS: TACROLIMUS 0.5 MG CAP PO SCH ×2 (11:27→20:39)
--- NOTE | 2016-11-30 13:30 | CONS ---
Date/Time of Note Date/Time of Note DATE: 11/30/16 TIME: 13:29 Assessment/Plan Assessment/Plan Additional Assessment/Plan 1. 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 h/o donor kidney transplant in 2009 at [facility], currently on immunosuppression with Prograf, CellCept 4. 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 History of hypertension. 6. History of diabetes mellitus. 7. History of previous left upper extremity arteriovenous fistula. 8. Mild Metabolic acidosis, 9. Electrolyte imbalance- Hypercalcemia- resolved ,Hypokalemia- resolved, Hypomagnesemia- resolved Plan: IV abx as per Infectious disease service plan for debridement by Podiatry today, s/p LE angiogram on , another planned on , Cr normal, will give IVF startin on Friday morning after round. Continue current immunosuppresion with prograf,cellcept, no prednisone due to hypercalcemia will continue to follow up Consultation Date/Type/Reason Admit Date/Time Nov 12, 2016 at 10:06 Initial Consult Date 11/12/16 Type of Consultation: NEPHROLOGY Referring Provider: KRISTIN HALL MD 24 HR Interval Summary Free Text/Dictation plan for debridement by Podiatry today, a nother angiogram scheduled on Friday Exam/Review of Systems Vital Signs Vitals Vital Signs Date Time Temp Pulse Resp B/P Pulse Ox O2 Delivery O2 Flow Rate FiO2 11/30/16 10:03 88 13 149/79 94 Room Air 11/30/16 08:48 8.0 11/30/16 08:39 98.0 Intake and Output 11/29/16 11/29/16 11/30/16 15:00 23:00 07:00 Intake Total 100 ml 1120 ml 450 ml Balance 100 ml 1120 ml 450 ml Exam HEENT: Unremarkable -- NECK: Supple, trachea midline. CHEST: Rise symmetrical, without dyspnea on observation HEART: Pulse RRR ABDOMEN: Soft, benign EXTREMITIES: Warm -- gangrenous toes Results Result Diagram: 11/27/16 0524 Results 24 hrs Laboratory Tests Test 11/30/16 08:39 Bedside Glucose 93 Medications Medications Current Medications Acetaminophen (Tylenol Tab) 650 mg Q6H PRN PO PAIN LEVEL 1-3 OR FEVER; Start at 16:00 Pantoprazole (Protonix Tab) 40 mg DAILY@06 PO Last administered on 11/30/16 05 :31; Admin Dose 40 MG; Start 11/13/16 at 06:00 Enoxaparin Sodium (Lovenox) 30 mg DAILY SC Last administered on 11/29/16 08:47 ; Admin Dose 30 MG; Start 11/13/16 at 09:00 Aspirin (Halfprin) 81 mg DAILY PO Last administered on 11/30/16 11:25; Admin Dose 81 MG; Start 11/13/16 at 09:00 Diltiazem HCl (Cardizem Cd) 180 mg DAILY PO Last administered on 11/30/16 11: 26; Admin Dose 180 MG; Start 11/13/16 at 09:00 Famotidine (Pepcid) 40 mg HS PO Last administered on 11/29/16 20:42; Admin Dose 40 MG; Start 11/12/16 at 21:00 Folic Acid (Folic Acid) 1 mg DAILY PO Last administered on 11/30/16 11:26; Admin Dose 1 MG; Start 11/13/16 at 09:00 Mycophenolate Mofetil (Cellcept) 1,000 mg BID PO Last administered on 11:26; Admin Dose 1,000 MG; Start 11/12/16 at 21:00 Metoprolol Tartrate (Lopressor) 75 mg BID PO Last administered on 11/30/16 11: 27; Admin Dose 75 MG; Start 11/12/16 at 21:00 Gabapentin 100 mg 100 mg TID PO Last administered on 11/30/16 13:22; Admin Dose 100 MG; Start 11/12/16 at 21:00 Levofloxacin/ Dextrose 100 ml @ 100 mls/hr Q24H IVPB Last administered on 11/29 20:45; Admin Dose 100 MLS/HR; Start 11/13/16 at 20:30 Metronidazole 100 ml @ 100 mls/hr Q8 IVPB Last administered on 11/30/16 13:14 ; Admin Dose 100 MLS/HR; Start 11/14/16 at 16:00 Daptomycin/Sodium Chloride (Cubicin/NS) 100 ml @ 200 mls/hr Q24H IVPB Last administered on 11/29/16 17:32; Admin Dose 200 MLS/HR; Start 11/14/16 at 17:00 Zolpidem Tartrate (Ambien) 5 mg HS PRN PO INSOMNIA; Start 11/15/16 at 23:30 Loperamide HCl (Imodium Cap) 2 mg QID PRN PO DIARRHEA Last administered on 11/17 12:51; Admin Dose 2 MG; Start 11/16/16 at 16:00 Acetaminophen/ Hydrocodone Bitart ([place] (5/325)) 1 tab Q6H PRN PO pain Last administered on 11/30/16 11:25; Admin Dose 1 TAB; Start 11/22/16 at 12:00 Morphine Sulfate (morphine) 2 mg Q4H PRN IV SEVERE PAIN LEVEL 7-10 Last administered on 11/30/16 02:00; Admin Dose 2 MG; Start 11/23/16 at 12:00 Tacrolimus (Prograf) 2 mg Q12 PO Last administered on 11/30/16 11:27; Admin Dose 2 MG; Start 11/24/16 at 10:00 Ondansetron HCl (Zofran Inj) 4 mg Q4H PRN IV NAUSEA AND/OR VOMITING; Start 11/27 at 17:30 Hydralazine HCl (Apresoline) 10 mg Q6H PRN IV ELEVATED BLOOD PRESSURE; Start at 21:00 Hydralazine HCl (Apresoline) 20 mg Q6H PRN IV ELEVATED BLOOD PRESSURE Last administered on 11/27/16 21:42; Admin Dose 20 MG; Start 11/27/16 at 21:00 Benazepril HCl (Lotensin) 10 mg DAILY PO Last administered on 11/30/16 11:27; Admin Dose 10 MG; Start 11/30/16 at 09:00 RAMON KEMP MD Nov 30, 2016 13:30
--- NOTE | 2016-11-30 13:33 | PN ---
Date/Time of Note Date/Time of Note DATE: 11/30/16 TIME: 13:30 Assessment/Plan VTE Prophylaxis VTE Prophylaxis Intervention: LMWH Lines/Catheters IV Catheter Type (from [facility]): Saline Lock Urinary Cath still in place: No Assessment/Plan Chief Complaint/Hosp Course Chief Complaint/Hosp Course 1.Significant peripheral vascular disease with bilateral lower extremities gangrene/critical limb ischemia of both legs requiring staged vascular intervention. -Status post RIGHT FEM-POP ATHERECTOMY, STENTING AND ANGIOPLASTY -Status post debridement this morning. Will await vascular surgery recommendations regarding repeat revascularization. -Continue aspirin, blood pressure management, statin and prophylactic anticoagulation. 2.Status post kidney transplant: - on immunosuppression with Prograf, CellCept -Nephrology on board and will follow recommendations-on Mucomyst for renal prophylaxis for vascular intervention 3. Hypertension. -Continue antihypertensives 4. Chronic anemia. -H&H stable. Will monitor. 5. Peripheral neuropathy. -Continue pain medications DVT prophylaxis: Lovenox PUD prophylaxis: Protonix Plan: Continue wound care, will discuss with vascular regarding further plan of care. Will likely need intermediate placement. Start discharge planning. Problems: Subjective 24 Hr Interval Summary Free Text/Dictation Status post further debridement this morning. Remained stable postoperatively. Exam/Review of Systems Vital Signs Vitals Vital Signs Date Time Temp Pulse Resp B/P Pulse Ox O2 Delivery O2 Flow Rate FiO2 11/30/16 10:03 88 13 149/79 94 Room Air 11/30/16 08:48 8.0 11/30/16 08:39 98.0 Intake and Output 11/29/16 11/29/16 11/30/16 15:00 23:00 07:00 Intake Total 100 ml 1120 ml 450 ml Balance 100 ml 1120 ml 450 ml Exam GENERAL: Elderly lady comfortable at rest. VITAL SIGNS: per chart NECK: Supple. No JVD or lymphadenopathy. CARDIAC EXAM: S1, S2. No added sounds or murmurs. CHEST: clear bilaterally, No added sounds, rales or wheezes ABDOMEN: Soft, nontender. No guarding or rebound. EXTREMITIES: No cyanosis, clubbing or edema. NEUROLOGIC: Generalized weakness. No focal deficits. Results Result Diagram: 11/27/16 0524 Results 24 hrs Laboratory Tests Test 11/30/16 08:39 Bedside Glucose 93 Medications Medications Current Medications Acetaminophen (Tylenol Tab) 650 mg Q6H PRN PO PAIN LEVEL 1-3 OR FEVER; Start at 16:00 Pantoprazole (Protonix Tab) 40 mg DAILY@06 PO Last administered on 11/30/16 05 :31; Admin Dose 40 MG; Start 11/13/16 at 06:00 Enoxaparin Sodium (Lovenox) 30 mg DAILY SC Last administered on 11/29/16 08:47 ; Admin Dose 30 MG; Start 11/13/16 at 09:00 Aspirin (Halfprin) 81 mg DAILY PO Last administered on 11/30/16 11:25; Admin Dose 81 MG; Start 11/13/16 at 09:00 Diltiazem HCl (Cardizem Cd) 180 mg DAILY PO Last administered on 11/30/16 11: 26; Admin Dose 180 MG; Start 11/13/16 at 09:00 Famotidine (Pepcid) 40 mg HS PO Last administered on 11/29/16 20:42; Admin Dose 40 MG; Start 11/12/16 at 21:00 Folic Acid (Folic Acid) 1 mg DAILY PO Last administered on 11/30/16 11:26; Admin Dose 1 MG; Start 11/13/16 at 09:00 Mycophenolate Mofetil (Cellcept) 1,000 mg BID PO Last administered on 11:26; Admin Dose 1,000 MG; Start 11/12/16 at 21:00 Metoprolol Tartrate (Lopressor) 75 mg BID PO Last administered on 11/30/16 11: 27; Admin Dose 75 MG; Start 11/12/16 at 21:00 Gabapentin 100 mg 100 mg TID PO Last administered on 11/30/16 13:22; Admin Dose 100 MG; Start 11/12/16 at 21:00 Levofloxacin/ Dextrose 100 ml @ 100 mls/hr Q24H IVPB Last administered on 11/29 20:45; Admin Dose 100 MLS/HR; Start 11/13/16 at 20:30 Metronidazole 100 ml @ 100 mls/hr Q8 IVPB Last administered on 11/30/16 13:14 ; Admin Dose 100 MLS/HR; Start 11/14/16 at 16:00 Daptomycin/Sodium Chloride (Cubicin/NS) 100 ml @ 200 mls/hr Q24H IVPB Last administered on 11/29/16 17:32; Admin Dose 200 MLS/HR; Start 11/14/16 at 17:00 Zolpidem Tartrate (Ambien) 5 mg HS PRN PO INSOMNIA; Start 11/15/16 at 23:30 Loperamide HCl (Imodium Cap) 2 mg QID PRN PO DIARRHEA Last administered on 11/17 12:51; Admin Dose 2 MG; Start 11/16/16 at 16:00 Acetaminophen/ Hydrocodone Bitart ([place] (5/325)) 1 tab Q6H PRN PO pain Last administered on 11/30/16 11:25; Admin Dose 1 TAB; Start 11/22/16 at 12:00 Morphine Sulfate (morphine) 2 mg Q4H PRN IV SEVERE PAIN LEVEL 7-10 Last administered on 11/30/16 02:00; Admin Dose 2 MG; Start 11/23/16 at 12:00 Tacrolimus (Prograf) 2 mg Q12 PO Last administered on 11/30/16 11:27; Admin Dose 2 MG; Start 11/24/16 at 10:00 Ondansetron HCl (Zofran Inj) 4 mg Q4H PRN IV NAUSEA AND/OR VOMITING; Start 11/27 at 17:30 Hydralazine HCl (Apresoline) 10 mg Q6H PRN IV ELEVATED BLOOD PRESSURE; Start at 21:00 Hydralazine HCl (Apresoline) 20 mg Q6H PRN IV ELEVATED BLOOD PRESSURE Last administered on 11/27/16 21:42; Admin Dose 20 MG; Start 11/27/16 at 21:00 Benazepril HCl (Lotensin) 10 mg DAILY PO Last administered on 11/30/16 11:27; Admin Dose 10 MG; Start 11/30/16 at 09:00 MARLON HUMPHREY MD, [facility] Nov 30, 2016 13:33
--- NOTE | 2016-11-30 14:40 | CONS ---
Date/Time of Note Date/Time of Note DATE: 11/30/16 TIME: 14:36 Assessment/Plan Assessment/Plan Additional Assessment/Plan CAD PAD s/p Kidney Transplant s/p Right FEM-POP ATHERECTOMY with angioplasty and stenting s/p debridement of necrotic wound of right and left feet Hemodynamically stable Continue metoprolol and diltiazem and Benazepril Continue Tacrolimus and CellCept Continue Antibiotics Continue GI and DVT Prophylaxis Consultation Date/Type/Reason Admit Date/Time Nov 12, 2016 at 10:06 Constitutional: no complaints Eyes: no complaints, No discharge, No other, No pain, No redness, No visual change ENT: no complaints, No bleeding, No congestion, No discharge, No dysphagia, No other, No pain, No sore throat Respiratory: no complaints Cardiovascular: no complaints Gastrointestinal: no complaints Genitourinary: no complaints Musculoskeletal: other (left lower leg pain, with gangrene ) Skin: skin lesions Neurologic: no complaints Endocrine: no complaints Lymphatic: no complaints Psychological: no complaints Immunologic: no complaints Past Medical History Medical History: coronary artery disease, high cholesterol, hypertension, other (peripheral vascular diseasea, atherosclerosis ) Past Surgical History Past Surgical Hx: other (Bilatearal Toe amputation, H/o Kideny transplatn in 2009) Social History Alcohol Use: none Smoking Status: Never smoker Drug Use: none Exam/Review of Systems Vital Signs Vitals Vital Signs Date Time Temp Pulse Resp B/P Pulse Ox O2 Delivery O2 Flow Rate FiO2 11/30/16 14:00 97.9 65 18 129/71 97 11/30/16 10:03 Room Air 11/30/16 08:48 8.0 Intake and Output 11/29/16 11/29/16 11/30/16 14:59 22:59 06:59 Intake Total 100 ml 1120 ml 450 ml Balance 100 ml 1120 ml 450 ml Exam Head: atraumatic, normocephalic Respiratory: clear to auscultation Cardiovascular: regular rate and rhythm Gastrointestinal: nl liver, spleen, non-tender, soft Extremities: other (Gangrene 5th toe amputation stump.Fourth and fifth toe amputation stump ) Results Result Diagram: 11/27/16 0524 Results 24 hrs Laboratory Tests Test 11/30/16 08:39 Bedside Glucose 93 Medications Medications Current Medications Acetaminophen (Tylenol Tab) 650 mg Q6H PRN PO PAIN LEVEL 1-3 OR FEVER; Start at 16:00 Pantoprazole (Protonix Tab) 40 mg DAILY@06 PO Last administered on 11/30/16 05 :31; Admin Dose 40 MG; Start 11/13/16 at 06:00 Enoxaparin Sodium (Lovenox) 30 mg DAILY SC Last administered on 11/29/16 08:47 ; Admin Dose 30 MG; Start 11/13/16 at 09:00 Aspirin (Halfprin) 81 mg DAILY PO Last administered on 11/30/16 11:25; Admin Dose 81 MG; Start 11/13/16 at 09:00 Diltiazem HCl (Cardizem Cd) 180 mg DAILY PO Last administered on 11/30/16 11: 26; Admin Dose 180 MG; Start 11/13/16 at 09:00 Famotidine (Pepcid) 40 mg HS PO Last administered on 11/29/16 20:42; Admin Dose 40 MG; Start 11/12/16 at 21:00 Folic Acid (Folic Acid) 1 mg DAILY PO Last administered on 11/30/16 11:26; Admin Dose 1 MG; Start 11/13/16 at 09:00 Mycophenolate Mofetil (Cellcept) 1,000 mg BID PO Last administered on 11:26; Admin Dose 1,000 MG; Start 11/12/16 at 21:00 Metoprolol Tartrate (Lopressor) 75 mg BID PO Last administered on 11/30/16 11: 27; Admin Dose 75 MG; Start 11/12/16 at 21:00 Gabapentin 100 mg 100 mg TID PO Last administered on 11/30/16 13:22; Admin Dose 100 MG; Start 11/12/16 at 21:00 Levofloxacin/ Dextrose 100 ml @ 100 mls/hr Q24H IVPB Last administered on 11/29 20:45; Admin Dose 100 MLS/HR; Start 11/13/16 at 20:30 Metronidazole 100 ml @ 100 mls/hr Q8 IVPB Last administered on 11/30/16 13:14 ; Admin Dose 100 MLS/HR; Start 11/14/16 at 16:00 Daptomycin/Sodium Chloride (Cubicin/NS) 100 ml @ 200 mls/hr Q24H IVPB Last administered on 11/29/16 17:32; Admin Dose 200 MLS/HR; Start 11/14/16 at 17:00 Zolpidem Tartrate (Ambien) 5 mg HS PRN PO INSOMNIA; Start 11/15/16 at 23:30 Loperamide HCl (Imodium Cap) 2 mg QID PRN PO DIARRHEA Last administered on 11/17 12:51; Admin Dose 2 MG; Start 11/16/16 at 16:00 Acetaminophen/ Hydrocodone Bitart ([place] (5/325)) 1 tab Q6H PRN PO pain Last administered on 11/30/16 11:25; Admin Dose 1 TAB; Start 11/22/16 at 12:00 Morphine Sulfate (morphine) 2 mg Q4H PRN IV SEVERE PAIN LEVEL 7-10 Last administered on 11/30/16 02:00; Admin Dose 2 MG; Start 11/23/16 at 12:00 Tacrolimus (Prograf) 2 mg Q12 PO Last administered on 11/30/16 11:27; Admin Dose 2 MG; Start 11/24/16 at 10:00 Ondansetron HCl (Zofran Inj) 4 mg Q4H PRN IV NAUSEA AND/OR VOMITING; Start 11/27 at 17:30 Hydralazine HCl (Apresoline) 10 mg Q6H PRN IV ELEVATED BLOOD PRESSURE; Start at 21:00 Hydralazine HCl (Apresoline) 20 mg Q6H PRN IV ELEVATED BLOOD PRESSURE Last administered on 11/27/16 21:42; Admin Dose 20 MG; Start 11/27/16 at 21:00 Benazepril HCl (Lotensin) 10 mg DAILY PO Last administered on 11/30/16 11:27; Admin Dose 10 MG; Start 11/30/16 at 09:00 ALVARO SERRANO M.D. Nov 30, 2016 14:40
[2016-11-30] MEDS: SOD CHLORIDE 0.9% IVPB SCH (17:18)
[2016-11-30] MEDS: DAPTOMYCIN IVPB SCH (17:18)
[2016-11-30] MEDS: LEVOFLOXACIN 500MG/D5W (PMX) 100 ML IVPB SCH (20:32)
[2016-11-30] MEDS: FAMOTIDINE 20 MG TAB PO SCH (20:39)
[2016-12-01] MEDS: morphine 2 MG INJ IV PRN ×4 (00:14→10:37)
--- NOTE | 2016-12-01 00:49 | PN ---
DATE: 11/30/2016 SUBJECTIVE DATA: No acute events overnight. The patient is alert, feels good, looks comfortable. No fevers. No labs today. ANTIMICROBIALS: She is on daptomycin, Flagyl and Levaquin. OBJECTIVE DATA: GENERAL: This is a well-developed, fragile, elderly woman, who is alert, in no distress. HEENT: Head is atraumatic, normocephalic. Sclerae anicteric. Buccal mucosa dry. NECK: Supple. RESPIRATORY: Chest rise symmetrical. Breath sounds diminished at the bases. HEART: S1, S2. ABDOMEN: Soft. Bowel sounds present. EXTREMITIES: Bilateral lower extremities/feet dressing intact. ASSESSMENT: 1. Bilateral lower extremity cellulitis with osteomyelitis, status post incision and drainage this afternoon. 2. Severe peripheral vascular disease. Diabetes type 2. 3. Hypertension. 4. History of toe amputation in the past. 5. History of donor kidney transplant in 2009, on immunosuppression with Prograf and CellCept. PLAN: Patient remains stable, covered with appropriate antimicrobials. She is being seen by multiple consultants. Wound cultures are pending. We will continue her on current regimen. Dictated By: Sweetie De NP /santiago/fatuma /Document#: [id number]
[2016-12-01 02:00] VITALS: BP 135/76; RESP 17
[2016-12-01] MEDS: PANTOPRAZOLE (EC) 40 MG TAB PO SCH (05:48)
[2016-12-01] MEDS: metroNIDAZOLE 500 MG/NS (PMX) 100 ML IVPB SCH ×3 (05:48→21:37)
[2016-12-01] MEDS: HYDROCODONE/APAP (5/325) TAB PO PRN ×2 (05:50→16:07)
[2016-12-01 06:39] LABS: BASOPHILS % 0.2 % (0.0-2.0); EOSINOPHILS # 0.1 10^3/ul (0.0-0.5); HEMATOCRIT 37.4 % (37.0-47.0); LYMPHOCYTES # 0.8 10^3/ul (0.8-2.9); LYMPHOCYTES % 9.9 % (15.0-51.0); MEAN CORPUSCULAR HGB CONC 32.1 g/dl (32.0-37.0); MEAN CORPUSCULAR VOLUME 87.4 fl (82.0-101.0); MEAN PLATELET VOLUME 12.5 fl (7.4-10.4); MONOCYTE # 1.3 10^3/ul (0.3-0.9); MONOCYTES % 15.4 % (0.0-11.0); NEUTROPHIL # 6.1 10^3/ul (1.6-7.5); NEUTROPHILS % 73.1 % (39.0-77.0); PLATELET COUNT 186 10^3/UL (140-415); RED BLOOD COUNT 4.28 10^6/ul (4.20-5.40); RED CELL DISTRIBUTION WIDTH 15.2 % (11.5-14.5); WHITE BLOOD COUNT 8.4 10^3/ul (4.8-10.8)
[2016-12-01 07:07] LABS: CALCIUM 8.6 mg/dl (8.4-10.2); CREATININE 0.62 mg/dl (0.44-1.00); MAGNESIUM 1.1 mg/dl (1.7-2.5); PHOSPHORUS 3.5 mg/dl (2.5-4.9); POTASSIUM 4.3 mmol/L (3.5-5.1)
[2016-12-01 08:57] VITALS: BP 109/61; RESP 20
[2016-12-01] MEDS: BENAZEPRIL 10 MG TAB PO SCH (09:00)
[2016-12-01] MEDS: METOPROLOL 25 MG TAB PO SCH ×2 (09:00→21:38)
--- NOTE | 2016-12-01 09:47 | PN ---
Date/Time of Note Date/Time of Note DATE: 12/01/16 TIME: 09:38 Assessment/Plan VTE Prophylaxis VTE Prophylaxis Intervention: LMWH Lines/Catheters IV [facility] Type [facility] Saline Lock Urinary Cath still in place: No Assessment/Plan Chief Complaint/Hosp Course 1.Significant peripheral vascular disease with bilateral foot necrotic open wound with exposed bone and critical limb ischemia . -Status post RIGHT FEM-POP ATHERECTOMY, STENTING AND ANGIOPLASTY 11/27/1016- Tentative Plan for vascular intervention on Right LE on 12/02/16. -Status post Excisional debridement of open necrotic wound of the right and left foot 11/30/16-F/u wound CS -Continue aspirin, blood pressure management, statin and prophylactic anticoagulation. -F/u vascular/Podiatry recs 2.Status post kidney transplant: - on immunosuppression with Prograf, CellCept -Nephrology on board and will follow recommendations-on Mucomyst for renal prophylaxis for vascular intervention 3. Hypertension. -Continue antihypertensives 4. Chronic anemia. -H&H stable. Will monitor. 5. Peripheral neuropathy. -Continue pain medications 6. History of PAD with status post amputation 4th,5th left toes and 5th right toe DVT prophylaxis: Lovenox PUD prophylaxis: Protonix Plan: We will follow-up with vascular/Podiatry/Nephrology/ID recommendation. f/ U cs. Plan for right lower extremity angiogram with possible angioplasty on Friday. DISP: Patient wound benefit from SNF placement. CM to follow. Case discussed with Dr. Thomason Problems: Subjective 24 Hr Interval Summary Free Text/Dictation Status post bilateral toe debridement on 11/30/16.Having pain ob Al.toes Exam/Review of Systems Vital Signs Vitals Vital Signs Date Time Temp Pulse Resp B/P Pulse Ox O2 Delivery O2 Flow Rate FiO2 12/01/16 08:57 97.6 68 20 109/61 97 11/30/16 10:03 Room Air 11/30/16 08:48 8.0 Intake and Output 11/30/16 11/30/16 12/01/16 15:00 23:00 07:00 Intake Total 500 ml 470 ml 750 ml Output Total 10 ml 700 ml Balance 490 ml -230 ml 750 ml Exam General: Well developed,adequately built, not in any acute distress . HEENT: Normocephalic, Atraumatic, No laceration or hematoma; Eyes: PEERL, Conjunctiva clear, Anicteric sclera Neck: Supple without any lymphadenopathy, nontender, no JVD, no carotid bruits, trachea midline, no thyromegaly Cardiac: S1, S2 auscultated, regular rhythm and rate, no mumurs or gallop Pulmonary: Normal respiratory effort. Chest clear to auscultation bilaterally, no adventitious breath sounds GI: Abdomen normal to inspection. Soft, non tender, non- distended, no masses, no rebound tenderness or guarding. Bowel sounds active on all four quadrants Genitourinary: Deferred Extremities: Gangrenous toes bilateral-Status post debridement-covered with dressing/intact,. No cyanosis, clubbing, or edema. Pulses faint bilaterally. Full ROM on all four extremities. No focal weakness appreciated. Neurologic: Alert to person, place, time, and situation. Affect appropriate, intact sensation. Skin: Clean,dry, and intact. No ecchymosis, no rashes, or lesions Results Result Diagram: 12/01/1627 12/01/1627 Results 24 hrs Laboratory Tests Test 12/01/16 05:27 White Blood Count 8.4 # Red Blood Count 4.28 Hemoglobin 12.0 # Hematocrit 37.4 Mean Corpuscular Volume 87.4 Mean Corpuscular Hemoglobin 28.0 L Mean Corpuscular Hemoglobin Concent 32.1 Red Cell Distribution Width 15.2 H Platelet Count 186 Mean Platelet Volume 12.5 H Neutrophils % 73.1 Lymphocytes % 9.9 L Monocytes % 15.4 H Eosinophils % 1.0 Basophils % 0.2 Nucleated Red Blood Cells % 0.0 Neutrophils # 6.1 Lymphocytes # 0.8 Monocytes # 1.3 H Eosinophils # 0.1 Basophils # 0.0 Nucleated Red Blood Cells # 0.0 Sodium Level 137 Potassium Level 4.3 Chloride Level 102 Carbon Dioxide Level 23 Anion Gap 16 Blood Urea Nitrogen 7 Creatinine 0.62 Glucose Level 89 Calcium Level 8.6 Phosphorus Level 3.5 Magnesium Level 1.1 L Medications Medications Current Medications Acetaminophen (Tylenol Tab) 650 mg Q6H PRN PO PAIN LEVEL 1-3 OR FEVER; Start at 16:00 Pantoprazole (Protonix Tab) 40 mg DAILY@06 PO Last administered on 12/01/16t 05 :48; Admin Dose 40 MG; Start 11/13/16 at 06:00 Enoxaparin Sodium (Lovenox) 30 mg DAILY SC Last administered on 11/29/16 08:47 ; Admin Dose 30 MG; Start 11/13/16 at 09:00 Aspirin (Halfprin) 81 mg DAILY PO Last administered on 11/30/16 11:25; Admin Dose 81 MG; Start 11/13/16 at 09:00 Diltiazem HCl (Cardizem Cd) 180 mg DAILY PO Last administered on 11/30/16 11: 26; Admin Dose 180 MG; Start 11/13/16 at 09:00 Famotidine (Pepcid) 40 mg HS PO Last administered on 11/30/16 20:39; Admin Dose 40 MG; Start 11/12/16 at 21:00 Folic Acid (Folic Acid) 1 mg DAILY PO Last administered on 11/30/16 11:26; Admin Dose 1 MG; Start 11/13/16 at 09:00 Mycophenolate Mofetil (Cellcept) 1,000 mg BID PO Last administered on 20:39; Admin Dose 1,000 MG; Start 11/12/16 at 21:00 Metoprolol Tartrate (Lopressor) 75 mg BID PO Last administered on 11/30/16 20: 40; Admin Dose 75 MG; Start 11/12/16 at 21:00 Gabapentin 100 mg 100 mg TID PO Last administered on 11/30/16 20:39; Admin Dose 100 MG; Start 11/12/16 at 21:00 Levofloxacin/ Dextrose 100 ml @ 100 mls/hr Q24H IVPB Last administered on 11/30 20:32; Admin Dose 100 MLS/HR; Start 11/13/16 at 20:30 Metronidazole 100 ml @ 100 mls/hr Q8 IVPB Last administered on 12/01/16 05:48 ; Admin Dose 100 MLS/HR; Start 11/14/16 at 16:00 Daptomycin/Sodium Chloride (Cubicin/NS) 100 ml @ 200 mls/hr Q24H IVPB Last administered on 11/30/16 17:18; Admin Dose 200 MLS/HR; Start 11/14/16 at 17:00 Zolpidem Tartrate (Ambien) 5 mg HS PRN PO INSOMNIA; Start 11/15/16 at 23:30 Loperamide HCl (Imodium Cap) 2 mg QID PRN PO DIARRHEA Last administered on 11/17 12:51; Admin Dose 2 MG; Start 11/16/16 at 16:00 Acetaminophen/ Hydrocodone Bitart ([place] (5/325)) 1 tab Q6H PRN PO pain Last administered on 12/01/16 05:50; Admin Dose 1 TAB; Start 11/22/16 at 12:00 Morphine Sulfate (morphine) 2 mg Q4H PRN IV SEVERE PAIN LEVEL 7-10 Last administered on 12/01/16 04:42; Admin Dose 2 MG; Start 11/23/16 at 12:00 Tacrolimus (Prograf) 2 mg Q12 PO Last administered on 11/30/16 20:39; Admin Dose 2 MG; Start 11/24/16 at 10:00 Ondansetron HCl (Zofran Inj) 4 mg Q4H PRN IV NAUSEA AND/OR VOMITING Last administered on 11/30/16 17:21; Admin Dose 4 MG; Start 11/27/16 at 17:30 Hydralazine HCl (Apresoline) 10 mg Q6H PRN IV ELEVATED BLOOD PRESSURE; Start at 21:00 Hydralazine HCl (Apresoline) 20 mg Q6H PRN IV ELEVATED BLOOD PRESSURE Last administered on 11/27/16 21:42; Admin Dose 20 MG; Start 11/27/16 at 21:00 Benazepril HCl (Lotensin) 10 mg DAILY PO Last administered on 11/30/16 11:27; Admin Dose 10 MG; Start 11/30/16 at 09:00 HELEN ANDREWS NP Dec 01, 2016 09:47
[2016-12-01] MEDS: MYCOPHENOLATE 250 MG CAP PO SCH ×2 (09:48→21:38)
[2016-12-01] MEDS: TACROLIMUS 0.5 MG CAP PO SCH ×2 (09:48→21:37)
[2016-12-01] MEDS: FOLIC ACID 1 MG TAB PO SCH (09:49)
[2016-12-01] MEDS: GABAPENTIN 100 MG CAP PO SCH ×3 (09:49→21:38)
[2016-12-01] MEDS: ASPIRIN (EC) 81 MG TAB PO SCH (09:49)
[2016-12-01] MEDS: DILTIAZEM (CD) 180 MG CAP PO SCH (09:53)
[2016-12-01] MEDS: ENOXAPARIN 30 MG/0.3 ML SYG SC SCH (10:02)
--- NOTE | 2016-12-01 14:27 | PN ---
Date/Time of Note Date/Time of Note DATE: 12/01/16 TIME: 14:25 Assessment/Plan Lines/Catheters IV Catheter Type (from [facility]): Saline Lock [place] in Place (from [facility]): No Assessment/Plan Chief Complaint/Hosp Course -Bilateral lower extremity atherosclerosis with bilateral foot gangrene: It seems that the patient's has progression of her significant infrainguinal atherosclerotic disease and upon CT angiography there is extensive infrainguinal disease bilaterally and will require intervention. Unfortunately she has no vein conduit to perform limb salvage revascularization and being chronically immunosuppressed secondary to her kidney transplant limits performing bypass with upper extremity vein graft. Therefore, will plan on staged procedures with endovascular interventions with anesthesia as she would like to be completely anesthetized during her procedures. -S/P Advanced RLE Endovascular intervention -Patient scheduled for the LLE intervention tomorrow 12/02 -Appreciate Nephrology evaluation, will plan for hydration prior to intervention -Our interventions will be coordinated with our multidisciplinary team as she would need to be monitored for her preservation of kidney transplant and contrast dosing -Optimize vascular status (BP medications, diet, nutrition and exercise, sugar control, antiplatelets). -Continue with antibiotics for the gangrene. -Podiatry colleagues are involved with the local wound care and will plan to determine the best option course for the patient as she would like to have everything done to provide her adequate limb salvage. -Appreciate Cardiology evaluation -Discussed findings, plan and management with the patient with a certified floral department specialist and she understands that there is great concern as she has critical limb ischemia of both legs and limb salvage may be challenging for her and possibility of a major amputation in there -Thank you for allowing us to partake in the care of your patient. Please call with any questions. Problems: Subjective 24 Hr Interval Summary No new vascular events overnight Exam/Review of Systems Vital Signs Vitals Vital Signs Date Time Temp Pulse Resp B/P Pulse Ox O2 Delivery O2 Flow Rate FiO2 12/01/16 08:57 97.6 68 20 109/61 97 11/30/16 10:03 Room Air 11/30/16 08:48 8.0 Intake and Output 11/30/16 11/30/16 12/01/16 15:00 23:00 07:00 Intake Total 500 ml 470 ml 750 ml Output Total 10 ml 700 ml Balance 490 ml -230 ml 750 ml Exam Free Text/Dictation Alert and oriented x3. LUNGS: Clear to auscultation bilaterally CARDIOVASCULAR: S1 and S2 present. ABDOMEN: Soft, nontender and nondistended. Bowel sounds positive. Surgical scar well healed. EXTREMITIES: Right lower extremity faint femoral pulse. Nonpalpable pedal pulse. Motor and sensory intact. Capillary refill 4 seconds. Gangrene of the fifth toe amputation stump. Left lower extremity faint femoral pulse. Nonpalpable pedal pulse. Motor and sensory intact. Capillary refill 4 seconds. Tenderness improved first toe with gangrene. Fourth and fifth toe amputation stump gangrene. Results Result Diagram: 12/01/16 0527 12/01/16 0527 WILD DUARTE MD Dec 01, 2016 14:27
[2016-12-01 14:56] VITALS: BP 116/64; RESP 18
[2016-12-01] MEDS ORDERED: MAGNESIUM SULFATE 4 GM/100 ML 100 ML IVPB ONE (15:00)
--- NOTE | 2016-12-01 15:30 | CONS ---
Date/Time of Note Date/Time of Note DATE: 12/01/16 TIME: 15:28 Assessment/Plan Assessment/Plan Additional Assessment/Plan 1. 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 h/o donor kidney transplant in 2009 at [facility], currently on immunosuppression with Prograf, CellCept 4. 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 History of hypertension. 6. History of diabetes mellitus. 7. History of previous left upper extremity arteriovenous fistula. 8. Mild Metabolic acidosis, 9. Electrolyte imbalance- Hypercalcemia- resolved ,Hypokalemia- resolved, Hypomagnesemia- resolved Plan: IV abx as per Infectious disease service S/p debridement by Podidatry, Plan for another LE angigoram tomrrow, will give IVF NS at 70 cc/hr Continue current immunosuppresion with prograf,cellcept, no prednisone due to hypercalcemia will continue to follow up Consultation Date/Type/Reason Admit Date/Time Nov 12, 2016 at 10:06 Initial Consult Date 11/12/16 Type of Consultation: NEPHROLOGY Referring Provider: KRISTIN HALL MD 24 HR Interval Summary Free Text/Dictation plan for LE angiogram tomorrow, BP stable Exam/Review of Systems Vital Signs Vitals Vital Signs Date Time Temp Pulse Resp B/P Pulse Ox O2 Delivery O2 Flow Rate FiO2 12/01/16 14:56 98.2 69 18 116/64 96 11/30/16 10:03 Room Air 11/30/16 08:48 8.0 Intake and Output 11/30/16 11/30/16 12/01/16 15:00 23:00 07:00 Intake Total 500 ml 470 ml 750 ml Output Total 10 ml 700 ml Balance 490 ml -230 ml 750 ml Exam HEENT: Unremarkable -- NECK: Supple, trachea midline. CHEST: Rise symmetrical, without dyspnea on observation HEART: Pulse RRR ABDOMEN: Soft, benign EXTREMITIES: Warm -- gangrenous toes Results Result Diagram: 12/01/16 0527 12/01/16 0527 Results 24 hrs Laboratory Tests Test 12/01/16 05:27 White Blood Count 8.4 # Red Blood Count 4.28 Hemoglobin 12.0 # Hematocrit 37.4 Mean Corpuscular Volume 87.4 Mean Corpuscular Hemoglobin 28.0 L Mean Corpuscular Hemoglobin Concent 32.1 Red Cell Distribution Width 15.2 H Platelet Count 186 Mean Platelet Volume 12.5 H Neutrophils % 73.1 Lymphocytes % 9.9 L Monocytes % 15.4 H Eosinophils % 1.0 Basophils % 0.2 Nucleated Red Blood Cells % 0.0 Neutrophils # 6.1 Lymphocytes # 0.8 Monocytes # 1.3 H Eosinophils # 0.1 Basophils # 0.0 Nucleated Red Blood Cells # 0.0 Sodium Level 137 Potassium Level 4.3 Chloride Level 102 Carbon Dioxide Level 23 Anion Gap 16 Blood Urea Nitrogen 7 Creatinine 0.62 Glucose Level 89 Calcium Level 8.6 Phosphorus Level 3.5 Magnesium Level 1.1 L Medications Medications Current Medications Acetaminophen (Tylenol Tab) 650 mg Q6H PRN PO PAIN LEVEL 1-3 OR FEVER; Start at 16:00 Pantoprazole (Protonix Tab) 40 mg DAILY@06 PO Last administered on 12/01/16 05 :48; Admin Dose 40 MG; Start 11/13/16 at 06:00 Enoxaparin Sodium (Lovenox) 30 mg DAILY SC Last administered on 12/01/16 10:02 ; Admin Dose 30 MG; Start 11/13/16 at 09:00 Aspirin (Halfprin) 81 mg DAILY PO Last administered on 12/01/16 09:49; Admin Dose 81 MG; Start 11/13/16 at 09:00 Diltiazem HCl (Cardizem Cd) 180 mg DAILY PO Last administered on 12/01/16 09: 53; Admin Dose 180 MG; Start 11/13/16 at 09:00 Famotidine (Pepcid) 40 mg HS PO Last administered on 11/30/16 20:39; Admin Dose 40 MG; Start 11/12/16 at 21:00 Folic Acid (Folic Acid) 1 mg DAILY PO Last administered on 12/01/16 09:49; Admin Dose 1 MG; Start 11/13/16 at 09:00 Mycophenolate Mofetil (Cellcept) 1,000 mg BID PO Last administered on 09:48; Admin Dose 1,000 MG; Start 11/12/16 at 21:00 Metoprolol Tartrate (Lopressor) 75 mg BID PO Last administered on 11/30/16 20: 40; Admin Dose 75 MG; Start 11/12/16 at 21:00 Gabapentin 100 mg 100 mg TID PO Last administered on 12/01/16 13:30; Admin Dose 100 MG; Start 11/12/16 at 21:00 Levofloxacin/ Dextrose 100 ml @ 100 mls/hr Q24H IVPB Last administered on 11/30 20:32; Admin Dose 100 MLS/HR; Start 11/13/16 at 20:30 Metronidazole 100 ml @ 100 mls/hr Q8 IVPB Last administered on 12/01/16 13:30 ; Admin Dose 100 MLS/HR; Start 11/14/16 at 16:00 Daptomycin/Sodium Chloride (Cubicin/NS) 100 ml @ 200 mls/hr Q24H IVPB Last administered on 11/30/16 17:18; Admin Dose 200 MLS/HR; Start 11/14/16 at 17:00 Zolpidem Tartrate (Ambien) 5 mg HS PRN PO INSOMNIA; Start 11/15/16 at 23:30 Loperamide HCl (Imodium Cap) 2 mg QID PRN PO DIARRHEA Last administered on 11/17 12:51; Admin Dose 2 MG; Start 11/16/16 at 16:00 Acetaminophen/ Hydrocodone Bitart ([place] (5/325)) 1 tab Q6H PRN PO pain Last administered on 12/01/16 05:50; Admin Dose 1 TAB; Start 11/22/16 at 12:00 Morphine Sulfate (morphine) 2 mg Q4H PRN IV SEVERE PAIN LEVEL 7-10 Last administered on 12/01/16 10:37; Admin Dose 2 MG; Start 11/23/16 at 12:00 Tacrolimus (Prograf) 2 mg Q12 PO Last administered on 12/01/16 09:48; Admin Dose 2 MG; Start 11/24/16 at 10:00 Ondansetron HCl (Zofran Inj) 4 mg Q4H PRN IV NAUSEA AND/OR VOMITING Last administered on 11/30/16 17:21; Admin Dose 4 MG; Start 11/27/16 at 17:30 Hydralazine HCl (Apresoline) 10 mg Q6H PRN IV ELEVATED BLOOD PRESSURE; Start at 21:00 Hydralazine HCl (Apresoline) 20 mg Q6H PRN IV ELEVATED BLOOD PRESSURE Last administered on 11/27/16 21:42; Admin Dose 20 MG; Start 11/27/16 at 21:00 Benazepril HCl 10 mg 10 mg DAILY PO Last administered on 11/30/16 11:27; Admin Dose 10 MG; Start 11/30/16 at 09:00 Magnesium Sulfate (Magnesium Sulfate 4 Gm/100 ml) 100 ml @ 25 mls/hr ONCE ONCE IVPB ; Start 12/01/16 at 15:00; Stop 12/01/16 at 18:59 RAMON KEMP MD Dec 01, 2016 15:29
[2016-12-01] MEDS: SOD CHLORIDE 0.9% 1,000 ML IV SCH (15:53)
--- NOTE | 2016-12-01 16:14 | CONS ---
Date/Time of Note Date/Time of Note DATE: 12/01/16 TIME: 16:13 Assessment/Plan Assessment/Plan Additional Assessment/Plan CAD PAD s/p Kidney Transplant s/p Right FEM-POP ATHERECTOMY with angioplasty and stenting s/p debridement of necrotic wound of right and left feet Hemodynamically stable Continue metoprolol and diltiazem and Benazepril Continue Tacrolimus and CellCept Continue Antibiotics Continue GI and DVT Prophylaxis Consultation Date/Type/Reason Admit Date/Time Nov 12, 2016 at 10:06 Initial Consult Date 11/13/16 Type of Consultation: NEPHROLOGY Referring Provider: KRISTIN HALL MD Exam/Review of Systems Vital Signs Vitals Vital Signs Date Time Temp Pulse Resp B/P Pulse Ox O2 Delivery O2 Flow Rate FiO2 12/01/16 14:56 98.2 69 18 116/64 96 11/30/16 10:03 Room Air 11/30/16 08:48 8.0 Intake and Output 11/30/16 11/30/16 12/01/16 15:00 23:00 07:00 Intake Total 500 ml 470 ml 750 ml Output Total 10 ml 700 ml Balance 490 ml -230 ml 750 ml Exam Head: atraumatic, normocephalic Respiratory: clear to auscultation Cardiovascular: regular rate and rhythm Gastrointestinal: nl liver, spleen, non-tender, soft Extremities: other (Gangrene 5th toe amputation stump.Fourth and fifth toe amputation stump ) Results Result Diagram: 12/01/16 0527 12/01/16 0527 Results 24 hrs Laboratory Tests Test 12/01/16 05:27 White Blood Count 8.4 # Red Blood Count 4.28 Hemoglobin 12.0 # Hematocrit 37.4 Mean Corpuscular Volume 87.4 Mean Corpuscular Hemoglobin 28.0 L Mean Corpuscular Hemoglobin Concent 32.1 Red Cell Distribution Width 15.2 H Platelet Count 186 Mean Platelet Volume 12.5 H Neutrophils % 73.1 Lymphocytes % 9.9 L Monocytes % 15.4 H Eosinophils % 1.0 Basophils % 0.2 Nucleated Red Blood Cells % 0.0 Neutrophils # 6.1 Lymphocytes # 0.8 Monocytes # 1.3 H Eosinophils # 0.1 Basophils # 0.0 Nucleated Red Blood Cells # 0.0 Sodium Level 137 Potassium Level 4.3 Chloride Level 102 Carbon Dioxide Level 23 Anion Gap 16 Blood Urea Nitrogen 7 Creatinine 0.62 Glucose Level 89 Calcium Level 8.6 Phosphorus Level 3.5 Magnesium Level 1.1 L Medications Medications Current Medications Acetaminophen (Tylenol Tab) 650 mg Q6H PRN PO PAIN LEVEL 1-3 OR FEVER; Start at 16:00 Pantoprazole (Protonix Tab) 40 mg DAILY@06 PO Last administered on 12/01/16 05 :48; Admin Dose 40 MG; Start 11/13/16 at 06:00 Enoxaparin Sodium (Lovenox) 30 mg DAILY SC Last administered on 12/01/16 10:02 ; Admin Dose 30 MG; Start 11/13/16 at 09:00 Aspirin (Halfprin) 81 mg DAILY PO Last administered on 12/01/16 09:49; Admin Dose 81 MG; Start 11/13/16 at 09:00 Diltiazem HCl (Cardizem Cd) 180 mg DAILY PO Last administered on 12/01/16 09: 53; Admin Dose 180 MG; Start 11/13/16 at 09:00 Famotidine (Pepcid) 40 mg HS PO Last administered on 11/30/16 20:39; Admin Dose 40 MG; Start 11/12/16 at 21:00 Folic Acid (Folic Acid) 1 mg DAILY PO Last administered on 12/01/16 09:49; Admin Dose 1 MG; Start 11/13/16 at 09:00 Mycophenolate Mofetil (Cellcept) 1,000 mg BID PO Last administered on 09:48; Admin Dose 1,000 MG; Start 11/12/16 at 21:00 Metoprolol Tartrate (Lopressor) 75 mg BID PO Last administered on 11/30/16 20: 40; Admin Dose 75 MG; Start 11/12/16 at 21:00 Gabapentin 100 mg 100 mg TID PO Last administered on 12/01/16 13:30; Admin Dose 100 MG; Start 11/12/16 at 21:00 Levofloxacin/ Dextrose 100 ml @ 100 mls/hr Q24H IVPB Last administered on 11/30 20:32; Admin Dose 100 MLS/HR; Start 11/13/16 at 20:30 Metronidazole 100 ml @ 100 mls/hr Q8 IVPB Last administered on 12/01/16 13:30 ; Admin Dose 100 MLS/HR; Start 11/14/16 at 16:00 Daptomycin/Sodium Chloride (Cubicin/NS) 100 ml @ 200 mls/hr Q24H IVPB Last administered on 11/30/16 17:18; Admin Dose 200 MLS/HR; Start 11/14/16 at 17:00 Zolpidem Tartrate (Ambien) 5 mg HS PRN PO INSOMNIA; Start 11/15/16 at 23:30 Loperamide HCl (Imodium Cap) 2 mg QID PRN PO DIARRHEA Last administered on 11/17 12:51; Admin Dose 2 MG; Start 11/16/16 at 16:00 Acetaminophen/ Hydrocodone Bitart ([place] (5/325)) 1 tab Q6H PRN PO pain Last administered on 12/01/16 16:07; Admin Dose 1 TAB; Start 11/22/16 at 12:00 Morphine Sulfate (morphine) 2 mg Q4H PRN IV SEVERE PAIN LEVEL 7-10 Last administered on 12/01/16 10:37; Admin Dose 2 MG; Start 11/23/16 at 12:00 Tacrolimus (Prograf) 2 mg Q12 PO Last administered on 12/01/16 09:48; Admin Dose 2 MG; Start 11/24/16 at 10:00 Ondansetron HCl (Zofran Inj) 4 mg Q4H PRN IV NAUSEA AND/OR VOMITING Last administered on 11/30/16 17:21; Admin Dose 4 MG; Start 11/27/16 at 17:30 Hydralazine HCl (Apresoline) 10 mg Q6H PRN IV ELEVATED BLOOD PRESSURE; Start at 21:00 Hydralazine HCl (Apresoline) 20 mg Q6H PRN IV ELEVATED BLOOD PRESSURE Last administered on 11/27/16 21:42; Admin Dose 20 MG; Start 11/27/16 at 21:00 Benazepril HCl 10 mg 10 mg DAILY PO Last administered on 11/30/16 11:27; Admin Dose 10 MG; Start 11/30/16 at 09:00 Magnesium Sulfate 100 ml @ 25 mls/hr ONCE ONCE IVPB Last administered on 12/01 15:52; Admin Dose 25 MLS/HR; Start 12/01/16 at 15:00; Stop 12/01/16 at 18: 59 Sodium Chloride (NS) 1,000 ml @ 70 mls/hr [id number] IV Last administered on 12/01t 15:53; Admin Dose 70 MLS/HR; Start 12/01/16 at 15:30 ALVARO SERRANO M.D. Dec 01, 2016 16:14
[2016-12-01] MEDS: SOD CHLORIDE 0.9% IVPB SCH (17:00)
[2016-12-01] MEDS: DAPTOMYCIN IVPB SCH (17:00)
--- NOTE | 2016-12-01 19:12 | PN ---
DATE: 12/01/2016 SUBJECTIVE: No acute changes. The patient is alert, looks comfortable. Denies pain, discomfort. No fevers. LABORATORY DATA: WBC 8.4, no shift, no bounce. BUN 7, creatinine 0.62. ANTIMICROBIALS: Daptomycin, Flagyl, and Levaquin. PHYSICAL EXAMINATION: Well developed, elderly woman who is alert, in no distress. Head is atraumatic and normocephalic. Sclerae are anicteric. Buccal mucosa is pink. NECK: Supple. LUNGS: Chest rise is symmetrical. Breath sounds clear, diminished at bases. HEART: S1, S2. ABDOMEN: Soft. Bowel sounds are present. EXTREMITIES: Bilateral feet dressing intact. ASSESSMENT: 1. Bilateral foot gangrene, status post right lower extremity endovascular intervention. 2. Diabetes. 3. Hypertension. 4. History of donor kidney transplant in 2009, on immunosuppressive therapy. 5. Anemia. PLAN: The patient remains stable, on appropriate antimicrobials, followed by multiple consultants. Scheduled for left lower extremity intervention on December [address] Valencia. Dictated By: Sweetie De NP /[email or web address]/[email or web address] /Document#: [id number]
[2016-12-01 20:24] VITALS: BP 126/70; RESP 21
[2016-12-01] MEDS: LEVOFLOXACIN 500MG/D5W (PMX) 100 ML IVPB SCH (21:37)
[2016-12-01] MEDS: FAMOTIDINE 20 MG TAB PO SCH (21:38)
[2016-12-02] VITALS (11 sets, daily range): BP systolic 118–168; BP diastolic 63–76; PULSE 60–65; RESP 16–22
[2016-12-02] MEDS: morphine 2 MG INJ IV PRN ×5 (00:09→23:42)
[2016-12-02] MEDS: HYDROCODONE/APAP (5/325) TAB PO PRN ×2 (01:38→21:55)
[2016-12-02] MEDS: PANTOPRAZOLE (EC) 40 MG TAB PO SCH (05:14)
[2016-12-02] MEDS: metroNIDAZOLE 500 MG/NS (PMX) 100 ML IVPB SCH ×3 (05:15→23:42)
[2016-12-02] MEDS: SOD CHLORIDE 0.9% 1,000 ML IV SCH (05:48)
[2016-12-02 06:02] LABS: BASOPHILS % 0.1 % (0.0-2.0); EOSINOPHILS # 0.1 10^3/ul (0.0-0.5); EOSINOPHILS % 1.2 % (0.0-7.0); HEMATOCRIT 37.6 % (37.0-47.0); LYMPHOCYTES # 0.9 10^3/ul (0.8-2.9); MEAN CORPUSCULAR HEMOGLOBIN 27.6 pg (29.0-33.0); MEAN CORPUSCULAR HGB CONC 31.9 g/dl (32.0-37.0); MEAN CORPUSCULAR VOLUME 86.4 fl (82.0-101.0); MEAN PLATELET VOLUME 12.8 fl (7.4-10.4); MONOCYTES % 13.4 % (0.0-11.0); NEUTROPHIL # 5.4 10^3/ul (1.6-7.5); PLATELET COUNT 190 10^3/UL (140-415); RED BLOOD COUNT 4.35 10^6/ul (4.20-5.40); RED CELL DISTRIBUTION WIDTH 14.7 % (11.5-14.5); WHITE BLOOD COUNT 7.4 10^3/ul (4.8-10.8)
[2016-12-02 06:14] LABS: INR 1.29; PROTIME 16.2 Sec (12.2-14.2); PT RATIO 1.3
[2016-12-02 06:15] LABS: PARTIAL THROMBOPLASTIN TIME 23.1 Sec (25.0-35.0)
[2016-12-02 06:21] LABS: POSITIVE DIFF @See below
[2016-12-02 06:22] LABS: CREATININE 0.63 mg/dl (0.44-1.00); POTASSIUM 4.5 mmol/L (3.5-5.1)
[2016-12-02] MEDS: ASPIRIN (EC) 81 MG TAB PO SCH (09:00)
[2016-12-02] MEDS: ENOXAPARIN 30 MG/0.3 ML SYG SC SCH (09:00)
--- NOTE | 2016-12-02 09:39 | PN ---
Date/Time of Note Date/Time of Note DATE: 12/02/16 TIME: 09:39 Assessment/Plan VTE Prophylaxis VTE Prophylaxis Intervention: LMWH Lines/Catheters IV [facility] Type (from [facility] Peripheral IV Urinary Cath still in place: No Assessment/Plan Chief Complaint/Hosp Course 1.Significant peripheral vascular disease with bilateral foot necrotic open wound with exposed bone and critical limb ischemia . -Status post RIGHT FEM-POP ATHERECTOMY, STENTING AND ANGIOPLASTY 11/27/1016- - For vascular intervention on Right LE today. -Status post Excisional debridement of open necrotic wound of the right and left foot 11/30/16-F/u wound CS -Continue aspirin, blood pressure management, statin and prophylactic anticoagulation. -F/u vascular/Podiatry recs 2.Status post kidney transplant: - on immunosuppression with Prograf, CellCept -Nephrology on board and will follow recommendations-on Mucomyst for renal prophylaxis for vascular intervention 3. Hypertension. -Continue antihypertensives 4. Chronic anemia. -H&H stable. Will monitor. 5. Peripheral neuropathy. -Continue pain medications 6. History of PAD with status post amputation 4th,5th left toes and 5th right toe 7. Hypomagnesemia. Resolved DVT prophylaxis: Lovenox PUD prophylaxis: Protonix Plan: We will follow-up with vascular/Podiatry/Nephrology/ID recommendation. f/ U cs. DISP: Patient wound benefit from SNF placement. CM to follow. Case discussed with Problems: Subjective 24 Hr Interval Summary Free Text/Dictation Patient for vascular intervention today. No acute distress. Exam/Review of Systems Vital Signs Vitals Vital Signs Date Time Temp Pulse Resp B/P Pulse Ox O2 Delivery O2 Flow Rate FiO2 12/02/16 08:18 98.1 74 18 168/76 100 11/30/16 10:03 Room Air 11/30/16 08:48 8.0 Intake and Output 12/01/16 12/01/16 12/02/16 15:00 23:00 07:00 Intake Total 100 ml 825 ml 1480 ml Balance 100 ml 825 ml 1480 ml Exam General: Well developed,adequately built, not in any acute distress . HEENT: Normocephalic, Atraumatic, No laceration or hematoma; Eyes: PEERL, Conjunctiva clear, Anicteric sclera Neck: Supple without any lymphadenopathy, nontender, no JVD, no carotid bruits, trachea midline, no thyromegaly Cardiac: S1, S2 auscultated, regular rhythm and rate, no mumurs or gallop Pulmonary: Normal respiratory effort. Chest clear to auscultation bilaterally, no adventitious breath sounds GI: Abdomen normal to inspection. Soft, non tender, non- distended, no masses, no rebound tenderness or guarding. Bowel sounds active on all four quadrants Genitourinary: Deferred Extremities: Gangrenous toes bilateral-Status post debridement-covered with dressing/intact,. No cyanosis, clubbing, or edema. Pulses faint bilaterally. Full ROM on all four extremities. No focal weakness appreciated. Neurologic: Alert to person, place, time, and situation. Affect appropriate, intact sensation. Skin: Clean,dry, and intact. No ecchymosis, no rashes, or lesions Results Result Diagram: 12/02/16 0513 12/02/16 0514 Results 24 hrs Laboratory Tests Test 12/02/16 05:13 12/02/16 05:14 White Blood Count 7.4 Red Blood Count 4.35 Hemoglobin 12.0 Hematocrit 37.6 Mean Corpuscular Volume 86.4 Mean Corpuscular Hemoglobin 27.6 L Mean Corpuscular Hemoglobin Concent 31.9 L Red Cell Distribution Width 14.7 H Platelet Count 190 Mean Platelet Volume 12.8 H Neutrophils % 73.0 Lymphocytes % 12.0 L Monocytes % 13.4 H Eosinophils % 1.2 Basophils % 0.1 Nucleated Red Blood Cells % 0.0 Neutrophils # 5.4 Lymphocytes # 0.9 Monocytes # 1.0 H Eosinophils # 0.1 Basophils # 0.0 Nucleated Red Blood Cells # 0.0 Prothrombin Time 16.2 H Prothrombin Time Ratio 1.3 INR International Normalized Ratio 1.29 Activated Partial Thromboplast Time 23.1 L Sodium Level 137 Potassium Level 4.5 Chloride Level 104 Carbon Dioxide Level 24 Anion Gap 14 Blood Urea Nitrogen 8 Creatinine 0.63 Glucose Level 94 Calcium Level 9.0 Magnesium Level 2.1 # Creatine Kinase 23 Medications Medications Current Medications Acetaminophen (Tylenol Tab) 650 mg Q6H PRN PO PAIN LEVEL 1-3 OR FEVER; Start at 16:00 Pantoprazole (Protonix Tab) 40 mg DAILY@06 PO Last administered on 12/02/16t 05 :14; Admin Dose 40 MG; Start 11/13/16 at 06:00 Enoxaparin Sodium (Lovenox) 30 mg DAILY SC Last administered on 12/01/16 10:02 ; Admin Dose 30 MG; Start 11/13/16 at 09:00 Aspirin (Halfprin) 81 mg DAILY PO Last administered on 12/01/16 09:49; Admin Dose 81 MG; Start 11/13/16 at 09:00 Diltiazem HCl (Cardizem Cd) 180 mg DAILY PO Last administered on 12/01/16 09: 53; Admin Dose 180 MG; Start 11/13/16 at 09:00 Famotidine (Pepcid) 40 mg HS PO Last administered on 12/01/16 21:38; Admin Dose 40 MG; Start 11/12/16 at 21:00 Folic Acid (Folic Acid) 1 mg DAILY PO Last administered on 12/01/16 09:49; Admin Dose 1 MG; Start 11/13/16 at 09:00 Mycophenolate Mofetil (Cellcept) 1,000 mg BID PO Last administered on 21:38; Admin Dose 1,000 MG; Start 11/12/16 at 21:00 Metoprolol Tartrate (Lopressor) 75 mg BID PO Last administered on 12/01/16 21: 38; Admin Dose 75 MG; Start 11/12/16 at 21:00 Gabapentin 100 mg 100 mg TID PO Last administered on 12/01/16 21:38; Admin Dose 100 MG; Start 11/12/16 at 21:00 Levofloxacin/ Dextrose 100 ml @ 100 mls/hr Q24H IVPB Last administered on 12/01 21:37; Admin Dose 100 MLS/HR; Start 11/13/16 at 20:30 Metronidazole 100 ml @ 100 mls/hr Q8 IVPB Last administered on 12/02/16 05:15 ; Admin Dose 100 MLS/HR; Start 11/14/16 at 16:00 Daptomycin/Sodium Chloride (Cubicin/NS) 100 ml @ 200 mls/hr Q24H IVPB Last administered on 11/30/16 17:18; Admin Dose 200 MLS/HR; Start 11/14/16 at 17:00 Zolpidem Tartrate (Ambien) 5 mg HS PRN PO INSOMNIA; Start 11/15/16 at 23:30 Loperamide HCl (Imodium Cap) 2 mg QID PRN PO DIARRHEA Last administered on 11/17 12:51; Admin Dose 2 MG; Start 11/16/16 at 16:00 Acetaminophen/ Hydrocodone Bitart ([place] (5/325)) 1 tab Q6H PRN PO pain Last administered on 12/02/16 01:38; Admin Dose 1 TAB; Start 11/22/16 at 12:00 Morphine Sulfate (morphine) 2 mg Q4H PRN IV SEVERE PAIN LEVEL 7-10 Last administered on 12/02/16 05:15; Admin Dose 2 MG; Start 11/23/16 at 12:00 Tacrolimus (Prograf) 2 mg Q12 PO Last administered on 12/01/16 21:37; Admin Dose 2 MG; Start 11/24/16 at 10:00 Ondansetron HCl (Zofran Inj) 4 mg Q4H PRN IV NAUSEA AND/OR VOMITING Last administered on 11/30/16 17:21; Admin Dose 4 MG; Start 11/27/16 at 17:30 Hydralazine HCl (Apresoline) 10 mg Q6H PRN IV ELEVATED BLOOD PRESSURE; Start at 21:00 Hydralazine HCl (Apresoline) 20 mg Q6H PRN IV ELEVATED BLOOD PRESSURE Last administered on 11/27/16 21:42; Admin Dose 20 MG; Start 11/27/16 at 21:00 Benazepril HCl 10 mg 10 mg DAILY PO Last administered on 11/30/16 11:27; Admin Dose 10 MG; Start 11/30/16 at 09:00 Sodium Chloride (NS) 1,000 ml @ 70 mls/hr [id number] IV Last administered on 12/01 15:53; Admin Dose 70 MLS/HR; Start 12/01/16 at 15:30 HELEN ANDREWS NP Dec 02, 2016 09:39
[2016-12-02] MEDS: DILTIAZEM (CD) 180 MG CAP PO SCH (09:49)
[2016-12-02] MEDS: FOLIC ACID 1 MG TAB PO SCH (09:50)
[2016-12-02] MEDS: BENAZEPRIL 10 MG TAB PO SCH (09:50)
[2016-12-02] MEDS: MYCOPHENOLATE 250 MG CAP PO SCH ×2 (09:50→21:41)
[2016-12-02] MEDS: TACROLIMUS 0.5 MG CAP PO SCH ×2 (09:51→21:40)
[2016-12-02] MEDS: METOPROLOL 25 MG TAB PO SCH ×2 (09:51→21:40)
[2016-12-02] MEDS: GABAPENTIN 100 MG CAP PO SCH ×3 (09:51→21:41)
[2016-12-02] MEDS ORDERED: HEPARIN 1000 UNITS/ML 10 ML INJ ONE (11:52)
[2016-12-02] MEDS ORDERED: LIDOCAINE 1% (MDV) 20 ML INJ ONE (11:52)
[2016-12-02] MEDS ORDERED: PROPOFOL 100 ML ONE (11:56)
[2016-12-02] MEDS ORDERED: MIDAZOLAM 1 MG/ML 2 ML INJ ONE (12:04)
[2016-12-02] MEDS ORDERED: FENTAnyl 50 MCG/ML VIAL ONE ×2 (12:04→13:06)
--- NOTE | 2016-12-02 12:06 | OPR ---
DATE OF OPERATION: 11/27/2016 SURGEON: Aung Valencia MD PREOPERATIVE DIAGNOSIS: Bilateral lower extremity gangrene. POSTOPERATIVE DIAGNOSIS: Bilateral lower extremity gangrene. ANESTHESIA: Local with sedation. ESTIMATED BLOOD LOSS: Minimal. COMPLICATIONS: None. Heparin as recorded. ACCESS: 1. Access antegrade Left common femoral artery 2. Antegrade Right common femoral artery, 7-Tamazight sheath. 3. Manual compression of the left groin. 4. Angio-Seal closure device for the right groin. SEDATION: Under physician's supervision, moderate sedation was administered intravenously under continuous monitoring by the interventional team and attending physician. Pulse oximeter, heart rate and blood pressures were continuously monitored by interventional surgeon. Physician's spent time was near 3 hours of [id number] sedation time with the patient. This was done by our anesthesia colleagues. INDICATIONS: This is a 61-year-old female with longstanding history of bilateral lower extremity atherosclerosis and aortoiliac atherosclerotic disease. The patient had presented with bilateral lower extremity gangrene with severe infrainguinal disease that required intervention. The patient had undergone bilateral lower extremity toe amputations in which the stump wounds had developed gangrene had not healed. Upon re- evaluation, noninvasive vascular studies it was identified the patient has significant disease, and underwent CT angiography which delineated severe disease in the fem-pop segment, however, unclear infrapopliteal disease. The patient was informed of the alternatives, risks and benefits of angiogram, balloon angioplasty, stenting arthrectomy. The risks included but are not limited to, bleeding, thrombosis, embolization, myocardial infarction, , device malfunction, infection, nephrotoxicity, renal failure and the patient has agreed to proceed. This is the 1st diagnostic angiogram in this clinical setting, as we did obtain a CT angiography with inadequate tibial artery visualization. OPERATION PERFORMED: 1. Ultrasound-guided antegrade access of the right common femoral artery. 2. Ultrasound-guided antegrade access of the left common femoral artery. 3. Right lower extremity angiogram. 4. Left lower extremity angiogram. 5. Atherectomy of the Right femoral popliteal segment using [employer] device. 6. Right6 x 200mm and Innova stent in the fem-pop 7. Right fem-pop balloon angioplasty with tera balloon 6 x 200 mm. 8. Right peroneal artery & Right tibioperoneal artery 2.5 x 220mm [place] balloon angioplasty 9. Right common femoral artery balloon angioplasty 6 x 40 mm mustang balloon 10. Moderate sedation OPERATIVE FINDINGS AT SURGERY: 1. Right peroneal artery with severe disease. 2. Right anterior tibial artery patent with mild to moderate in the proximal aspect, with severe disease in its distal aspect. 3. Right dorsalis pedis not well-visualized. 4. Right left plantar artery not well-visualized. 5. Right medial and lateral plantar arteries not well-visualized. OPERATIVE PROCEDURE: The patient was brought into the angio suite, and positioned supine position on fluoroscopic table. Sedation was administered without complications. Bilateral groins were shaved and prepped and draped in usual standard sterile fashion. Time-out and appropriate site was marked and confirmed. Local anesthesia was then infiltrated in the region of the bilateral common femoral arteries. The arteries were then cannulated with a micro access needle in an antegrade fashion, with ultrasound guidance and the guide wire was advanced into the superficial femoral artery under fluoroscopic guidance. The needle was then removed and the micro catheter was then placed in the left common femoral artery. On the left we went ahead and placed a Bentson wire, and this was followed by the short 5- Tamazight sheath over the wire. The sheath was then appropriately flushed with heparinized saline solution. At this point, using the glide wire and a guiding catheter our wire was placed in the mid peroneal artery, as we were able to get across the occluded areas of the fem-pop segment. At this point, the sheath was exchanged with a short 7-Tamazight sheath, and our glide wire was then exchanged to a 014 wire which was placed in the distal peroneal artery. At this point, we went ahead and performed atherectomy of the femoral popliteal segment using [employer] device. At the completion of the atherectomy we went ahead and placed a 6 x 200 and Innova stent in the fem- pop segment at knee popliteal artery and extended the stent all the way to the proximal superficial femoral artery. Once this was completed, we went ahead and performed balloon angioplasty using a tera balloon over 018 balloon, which was 6 x 200 mm. At this point, there was adequate flow through the fem-pop segment. However, the patient was identified to have a proximal occlusion with the VR sheath, as the patient has significant stenosis in the distal common femoral artery. Upon identifying this proximal inflow stenosis we decided to intervene on the left peroneal artery first and prior to completion of the case we will performed balloon angioplasty of common femoral artery. We used a 2.5 x 220 [place] balloon and balloon angioplasty of the peroneal artery was performed. 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 At this point, we brought a 7-Tamazight sheath back into the proximal aspect of the common femoral artery and identified the area of severe stenosis, which was occlusive where the sheath had passed. The wire was then exchanged to an 035 wire and we performed a balloon angioplasty using a 6 x 40 mm mustang balloon. Balloon angioplasty was completed and a completion angiogram identified adequate inflow into our lower leg. At this point, we went ahead and deployed a Angio-Seal closure device, and manual compression was applied. Prior to completion of our case, we went ahead and performed left lower extremity angiogram that identified patient having in-stent restenosis and severe stenosis in the proximal aspect of the superficial femoral artery. Further, we identified the patient having severely diseased posterior tibial artery and anterior tibial artery. However, as the patient is a kidney transplant patient and would like to limit and our amount of contrast used today, will plan to obtain a postoperative renal evaluation with adequate hydration prior to the intervention for the left lower extremity at a later time. We went ahead and removed all catheter sheaths and wires. Patient tolerated procedure well, was taken to post anesthesia care unit in stable condition. PLAN: We will have the patient undergo hydration and will be staged procedure for the left lower extremity in the coming days. Dictated By: Aung Valencia MD /santiago/harjinder /Document#: [id number] IAS[facility]
--- NOTE | 2016-12-02 12:33 | CONS ---
Date/Time of Note Date/Time of Note DATE: 12/02/16 TIME: 12:31 Assessment/Plan Assessment/Plan Additional Assessment/Plan 1. 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 h/o donor kidney transplant in 2009 at [facility], currently on immunosuppression with Prograf, CellCept 4. 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 History of hypertension. 6. History of diabetes mellitus. 7. History of previous left upper extremity arteriovenous fistula. 8. Mild Metabolic acidosis, 9. Electrolyte imbalance- Hypercalcemia- resolved ,Hypokalemia- resolved, Hypomagnesemia- resolved Plan: IV abx as per Infectious disease service S/p debridement by Podidatry, Plan for another LE angigoram tomrrow, will give IVF NS at 70 cc/hr - continue it 6 hr post angiogram today , Cr has been normal Continue current immunosuppresion with prograf,cellcept, no prednisone due to hypercalcemia will continue to follow up Consultation Date/Type/Reason Admit Date/Time Nov 12, 2016 at 10:06 Initial Consult Date 11/12/16 Type of Consultation: NEPHROLOGY Referring Provider: KRISTIN HALL MD 24 HR Interval Summary Free Text/Dictation plan for angiogram today , Cr normal , On IVF NS at 75 cc.gr Exam/Review of Systems Vital Signs Vitals Vital Signs Date Time Temp Pulse Resp B/P Pulse Ox O2 Delivery O2 Flow Rate FiO2 12/02/16 08:18 98.1 74 18 168/76 100 11/30/16 10:03 Room Air 11/30/16 08:48 8.0 Intake and Output 12/01/16 12/01/16 12/02/16 15:00 23:00 07:00 Intake Total 100 ml 825 ml 1480 ml Balance 100 ml 825 ml 1480 ml Exam HEENT: Unremarkable -- NECK: Supple, trachea midline. CHEST: Rise symmetrical, without dyspnea on observation HEART: Pulse RRR ABDOMEN: Soft, benign EXTREMITIES: Warm -- gangrenous toes Results Result Diagram: 12/02/16 0513 12/02/16 0514 Results 24 hrs Laboratory Tests Test 12/02/16 05:13 12/02/16 05:14 12/02/16 11:30 White Blood Count 7.4 Red Blood Count 4.35 Hemoglobin 12.0 Hematocrit 37.6 Mean Corpuscular Volume 86.4 Mean Corpuscular Hemoglobin 27.6 L Mean Corpuscular Hemoglobin Concent 31.9 L Red Cell Distribution Width 14.7 H Platelet Count 190 Mean Platelet Volume 12.8 H Neutrophils % 73.0 Lymphocytes % 12.0 L Monocytes % 13.4 H Eosinophils % 1.2 Basophils % 0.1 Nucleated Red Blood Cells % 0.0 Neutrophils # 5.4 Lymphocytes # 0.9 Monocytes # 1.0 H Eosinophils # 0.1 Basophils # 0.0 Nucleated Red Blood Cells # 0.0 Prothrombin Time 16.2 H Prothrombin Time Ratio 1.3 INR International Normalized Ratio 1.29 Activated Partial Thromboplast Time 23.1 L Sodium Level 137 Potassium Level 4.5 Chloride Level 104 Carbon Dioxide Level 24 Anion Gap 14 Blood Urea Nitrogen 8 Creatinine 0.63 Glucose Level 94 Calcium Level 9.0 Magnesium Level 2.1 # Creatine Kinase 23 Bedside Glucose 103 Medications Medications Current Medications Acetaminophen (Tylenol Tab) 650 mg Q6H PRN PO PAIN LEVEL 1-3 OR FEVER; Start at 16:00 Pantoprazole (Protonix Tab) 40 mg DAILY@06 PO Last administered on 12/02/16 05 :14; Admin Dose 40 MG; Start 11/13/16 at 06:00 Enoxaparin Sodium (Lovenox) 30 mg DAILY SC Last administered on 12/01/16 10:02 ; Admin Dose 30 MG; Start 11/13/16 at 09:00 Aspirin (Halfprin) 81 mg DAILY PO Last administered on 12/01/16 09:49; Admin Dose 81 MG; Start 11/13/16 at 09:00 Diltiazem HCl (Cardizem Cd) 180 mg DAILY PO Last administered on 12/02/16 09: 49; Admin Dose 180 MG; Start 11/13/16 at 09:00 Famotidine (Pepcid) 40 mg HS PO Last administered on 12/01/16 21:38; Admin Dose 40 MG; Start 11/12/16 at 21:00 Folic Acid (Folic Acid) 1 mg DAILY PO Last administered on 12/02/16 09:50; Admin Dose 1 MG; Start 11/13/16 at 09:00 Mycophenolate Mofetil (Cellcept) 1,000 mg BID PO Last administered on 09:50; Admin Dose 1,000 MG; Start 11/12/16 at 21:00 Metoprolol Tartrate (Lopressor) 75 mg BID PO Last administered on 12/02/16 09: 51; Admin Dose 75 MG; Start 11/12/16 at 21:00 Gabapentin 100 mg 100 mg TID PO Last administered on 12/02/16 09:51; Admin Dose 100 MG; Start 11/12/16 at 21:00 Levofloxacin/ Dextrose 100 ml @ 100 mls/hr Q24H IVPB Last administered on 12/01 21:37; Admin Dose 100 MLS/HR; Start 11/13/16 at 20:30 Metronidazole 100 ml @ 100 mls/hr Q8 IVPB Last administered on 12/02/16 05:15 ; Admin Dose 100 MLS/HR; Start 11/14/16 at 16:00 Daptomycin/Sodium Chloride (Cubicin/NS) 100 ml @ 200 mls/hr Q24H IVPB Last administered on 11/30/16 17:18; Admin Dose 200 MLS/HR; Start 11/14/16 at 17:00 Zolpidem Tartrate (Ambien) 5 mg HS PRN PO INSOMNIA; Start 11/15/16 at 23:30 Loperamide HCl (Imodium Cap) 2 mg QID PRN PO DIARRHEA Last administered on 11/17 12:51; Admin Dose 2 MG; Start 11/16/16 at 16:00 Acetaminophen/ Hydrocodone Bitart ([place] (5/325)) 1 tab Q6H PRN PO pain Last administered on 12/02/16 01:38; Admin Dose 1 TAB; Start 11/22/16 at 12:00 Morphine Sulfate (morphine) 2 mg Q4H PRN IV SEVERE PAIN LEVEL 7-10 Last administered on 12/02/16 09:47; Admin Dose 2 MG; Start 11/23/16 at 12:00 Tacrolimus (Prograf) 2 mg Q12 PO Last administered on 12/02/16 09:51; Admin Dose 2 MG; Start 11/24/16 at 10:00 Ondansetron HCl (Zofran Inj) 4 mg Q4H PRN IV NAUSEA AND/OR VOMITING Last administered on 11/30/16 17:21; Admin Dose 4 MG; Start 11/27/16 at 17:30 Hydralazine HCl (Apresoline) 10 mg Q6H PRN IV ELEVATED BLOOD PRESSURE; Start at 21:00 Hydralazine HCl (Apresoline) 20 mg Q6H PRN IV ELEVATED BLOOD PRESSURE Last administered on 11/27/16 21:42; Admin Dose 20 MG; Start 11/27/16 at 21:00 Benazepril HCl 10 mg 10 mg DAILY PO Last administered on 12/02/16 09:50; Admin Dose 10 MG; Start 11/30/16 at 09:00 Sodium Chloride (NS) 1,000 ml @ 70 mls/hr [id number] IV Last administered on 12/01 15:53; Admin Dose 70 MLS/HR; Start 12/01/16 at 15:30 RAMON KEMP MD Dec 02, 2016 12:33
--- NOTE | 2016-12-02 12:42 | HPN ---
Date/Time of Note Date/Time of Note DATE: 12/02/16 TIME: 12:42 Interval H&P Admission Note Pt. seen H&P reviewed: No system changes WILD DUARTE MD Dec 02, 2016 12:42
--- NOTE | 2016-12-02 12:44 | OPR ---
Date/Time of Note Date/Time of Note DATE: 12/02/16 TIME: 12:42 Operative Report Preoperative Diagnosis BILATERAL LOWER EXTREMITY GANGRENE Postoperative Diagnosis BILATERAL LOWER EXTREMITY GANGRENE Operation/Procedure Performed LLE ANGIOGRAM LEFT FEMPOP ATHERECTOMY, BALLOON ANGIOPLASTY AND STENTING LEFT PT & AT ANGIOPLASTY LEFT TPT, PLANTAR ANGIOPLASTY Surgeon: WILD DUARTE MD Anesthesia Type: general, moderate sedation Estimated Blood Loss: minimal Transfusion Required: no Specimen: none Grafts/Implants: none Complications: no WILD DUARTE MD Dec 02, 2016 12:44
[2016-12-02] MEDS ORDERED: EPHEDrine SULFATE 50 MG/5 ML SYG ONE (12:57)
[2016-12-02] MEDS ORDERED: NITROGLYCERIN (IC) 100 MCG/ML INJ ONE (14:17)
--- NOTE | 2016-12-02 14:36 | CONS ---
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 - will follow post op Consultation Date/Type/Reason Admit Date/Time Nov 12, 2016 at 10:06 Initial Consult Date 11/13/16 Type of Consultation: NEPHROLOGY Referring Provider: KRISTIN HALL MD Exam/Review of Systems Vital Signs Vitals Vital Signs Date Time Temp Pulse Resp B/P Pulse Ox O2 Delivery O2 Flow Rate FiO2 12/02/16 08:18 98.1 74 18 168/76 100 11/30/16 10:03 Room Air 11/30/16 08:48 8.0 Intake and Output 12/01/16 12/01/16 12/02/16 15:00 23:00 07:00 Intake Total 100 ml 825 ml 1480 ml Balance 100 ml 825 ml 1480 ml Results Result Diagram: 12/02/16 0513 12/02/16 0514 Results 24 hrs Laboratory Tests Test 12/02/16 05:13 12/02/16 05:14 12/02/16 11:30 White Blood Count 7.4 Red Blood Count 4.35 Hemoglobin 12.0 Hematocrit 37.6 Mean Corpuscular Volume 86.4 Mean Corpuscular Hemoglobin 27.6 L Mean Corpuscular Hemoglobin Concent 31.9 L Red Cell Distribution Width 14.7 H Platelet Count 190 Mean Platelet Volume 12.8 H Neutrophils % 73.0 Lymphocytes % 12.0 L Monocytes % 13.4 H Eosinophils % 1.2 Basophils % 0.1 Nucleated Red Blood Cells % 0.0 Neutrophils # 5.4 Lymphocytes # 0.9 Monocytes # 1.0 H Eosinophils # 0.1 Basophils # 0.0 Nucleated Red Blood Cells # 0.0 Prothrombin Time 16.2 H Prothrombin Time Ratio 1.3 INR International Normalized Ratio 1.29 Activated Partial Thromboplast Time 23.1 L Sodium Level 137 Potassium Level 4.5 Chloride Level 104 Carbon Dioxide Level 24 Anion Gap 14 Blood Urea Nitrogen 8 Creatinine 0.63 Glucose Level 94 Calcium Level 9.0 Magnesium Level 2.1 # Creatine Kinase 23 Bedside Glucose 103 Medications Medications Current Medications Acetaminophen (Tylenol Tab) 650 mg Q6H PRN PO PAIN LEVEL 1-3 OR FEVER; Start at 16:00 Pantoprazole (Protonix Tab) 40 mg DAILY@06 PO Last administered on 12/02/16 05 :14; Admin Dose 40 MG; Start 11/13/16 at 06:00 Enoxaparin Sodium (Lovenox) 30 mg DAILY SC Last administered on 12/01/16 10:02 ; Admin Dose 30 MG; Start 11/13/16 at 09:00 Aspirin (Halfprin) 81 mg DAILY PO Last administered on 12/01/16 09:49; Admin Dose 81 MG; Start 11/13/16 at 09:00 Diltiazem HCl (Cardizem Cd) 180 mg DAILY PO Last administered on 12/02/16 09: 49; Admin Dose 180 MG; Start 11/13/16 at 09:00 Famotidine (Pepcid) 40 mg HS PO Last administered on 12/01/16 21:38; Admin Dose 40 MG; Start 11/12/16 at 21:00 Folic Acid (Folic Acid) 1 mg DAILY PO Last administered on 12/02/16 09:50; Admin Dose 1 MG; Start 11/13/16 at 09:00 Mycophenolate Mofetil (Cellcept) 1,000 mg BID PO Last administered on 09:50; Admin Dose 1,000 MG; Start 11/12/16 at 21:00 Metoprolol Tartrate (Lopressor) 75 mg BID PO Last administered on 12/02/16 09: 51; Admin Dose 75 MG; Start 11/12/16 at 21:00 Gabapentin 100 mg 100 mg TID PO Last administered on 12/02/16 09:51; Admin Dose 100 MG; Start 11/12/16 at 21:00 Levofloxacin/ Dextrose 100 ml @ 100 mls/hr Q24H IVPB Last administered on 12/01 21:37; Admin Dose 100 MLS/HR; Start 11/13/16 at 20:30 Metronidazole 100 ml @ 100 mls/hr Q8 IVPB Last administered on 12/02/16 05:15 ; Admin Dose 100 MLS/HR; Start 11/14/16 at 16:00 Daptomycin/Sodium Chloride (Cubicin/NS) 100 ml @ 200 mls/hr Q24H IVPB Last administered on 11/30/16 17:18; Admin Dose 200 MLS/HR; Start 11/14/16 at 17:00 Zolpidem Tartrate (Ambien) 5 mg HS PRN PO INSOMNIA; Start 11/15/16 at 23:30 Loperamide HCl (Imodium Cap) 2 mg QID PRN PO DIARRHEA Last administered on 11/17 12:51; Admin Dose 2 MG; Start 11/16/16 at 16:00 Acetaminophen/ Hydrocodone Bitart ([place] (5/325)) 1 tab Q6H PRN PO pain Last administered on 12/02/16 01:38; Admin Dose 1 TAB; Start 11/22/16 at 12:00 Morphine Sulfate (morphine) 2 mg Q4H PRN IV SEVERE PAIN LEVEL 7-10 Last administered on 12/02/16 09:47; Admin Dose 2 MG; Start 11/23/16 at 12:00 Tacrolimus (Prograf) 2 mg Q12 PO Last administered on 12/02/16 09:51; Admin Dose 2 MG; Start 11/24/16 at 10:00 Ondansetron HCl (Zofran Inj) 4 mg Q4H PRN IV NAUSEA AND/OR VOMITING Last administered on 11/30/16 17:21; Admin Dose 4 MG; Start 11/27/16 at 17:30 Hydralazine HCl (Apresoline) 10 mg Q6H PRN IV ELEVATED BLOOD PRESSURE; Start at 21:00 Hydralazine HCl (Apresoline) 20 mg Q6H PRN IV ELEVATED BLOOD PRESSURE Last administered on 11/27/16 21:42; Admin Dose 20 MG; Start 11/27/16 at 21:00 Benazepril HCl 10 mg 10 mg DAILY PO Last administered on 12/02/16 09:50; Admin Dose 10 MG; Start 11/30/16 at 09:00 Sodium Chloride (NS) 1,000 ml @ 70 mls/hr [id number] IV Last administered on 12/01 15:53; Admin Dose 70 MLS/HR; Start 12/01/16 at 15:30 MIRELLA MOSER MD Dec 02, 2016 14:36
[2016-12-02] MEDS ORDERED: SOD CHLORIDE 0.45% 1,000 ML IV SCH (15:02)
[2016-12-02] MEDS ORDERED: ONDANSETRON 4 MG INJ IV PRN (15:30)
[2016-12-02] MEDS: DAPTOMYCIN IVPB SCH (16:29)
[2016-12-02] MEDS: SOD CHLORIDE 0.9% IVPB SCH (16:29)
--- NOTE | 2016-12-02 17:35 | PN ---
Date/Time of Note Date/Time of Note DATE: 12/02/16 TIME: 17:34 Assessment/Plan Lines/Catheters IV Catheter Type (from [facility]): Peripheral IV [place] in Place (from [facility]): No Exam/Review of Systems Vital Signs Vitals Vital Signs Date Time Temp Pulse Resp B/P Pulse Ox O2 Delivery O2 Flow Rate FiO2 12/02/16 16:10 97.3 65 16 141/69 100 Nasal Cannula 2.0 Intake and Output 12/01/16 12/01/16 12/02/16 15:00 23:00 07:00 Intake Total 100 ml 825 ml 1480 ml Balance 100 ml 825 ml 1480 ml Results Result Diagram: 12/02/16 0513 12/02/16 0514 PHILLIP EMANUEL DPM Dec 02, 2016 17:34
--- NOTE | 2016-12-02 21:00 | OPR ---
DATE OF OPERATION: 12/02/2016 SURGEON: Aung Valencia MD PREOPERATIVE DIAGNOSIS: Bilateral lower extremity gangrene. POSTOPERATIVE DIAGNOSIS: Bilateral lower extremity gangrene. ANESTHESIA: Local with moderate sedation with our Anesthesia team involved. ESTIMATED BLOOD LOSS: Minimal. COMPLICATIONS: None. MEDICATION: Heparin 5000 units given. CONTRAST: As recorded. ACCESS: Left common femoral artery antegrade access with 7- [place] sheath. CLOSURE: Manual compression and Angio-Seal closure device. INDICATIONS: This is a 61-year-old female whom had presented with bilateral lower extremity gangrene with kidney transplant in which she underwent right lower extremity intervention last week. After appropriate time with IV fluid hydration and Nephrology colleagues following the patient, she was scheduled for her second-stage procedure of the left lower extremity intervention and angiogram. The patient had been informed of the alternatives, risks and benefits of the angiogram, balloon angioplasty, stenting, and atherectomy. Risks included but not limited to, bleeding, thrombosis, embolization, myocardial infarction, , device malfunction, infection, nephrotoxicity, and patient has agreed to proceed. OPERATION PERFORMED: 1. Ultrasound-guided antegrade access of the left common femoral artery. 2. Left lower extremity angiogram. 3. Third-order selection of the left plantar artery, left femoral and popliteal atherectomy using the JetHandpressions device, Play[employer]. 4. Stenting of femoral popliteal segment with 6 x 200-mm Innova stent. 5. Balloon angioplasty of the left femoral popliteal region with 6 x 220-mm balloon. 6. Left common femoral artery balloon angioplasty with a 6-mm balloon. 7. Left at knee popliteal artery balloon angioplasty with 5 x 60-mm balloon. 8. Left tibioperoneal trunk balloon angioplasty. 9. Left posterior tibial artery balloon angioplasty. 10. Left common plantar artery balloon angioplasty. 11. Left peroneal artery balloon angioplasty. OPERATIVE PROCEDURE: The patient was brought into the angio suite and positioned in supine position on the fluoroscopic table. Sedation was administered with our Anesthesia team. The left groin was shaved and prepped in the usual standard sterile fashion. Time-out and appropriate site was marked and confirmed. Local anesthesia was then infiltrated in the region of the left common femoral artery. The artery was then cannulated with a micro access needle in an antegrade fashion using ultrasound guidance. The guidewire was then advanced into the left superficial femoral artery. The needle was then removed, and a micro catheter was placed. A Bentson wire was then passed into the popliteal artery under fluoroscopic guidance, followed by short 5-[place] sheath over the wire. The sheath was then appropriately flushed with heparinized saline solution. Using a guiding catheter, we cannulated the left posterior tibial artery and exchanged our sheath to a 7-[place] sheath. At this point, using our guiding catheter, we went ahead and exchanged our wire to an 0.014 Spartacore wire and placed the wire in the distal left posterior tibial artery. Subsequently, we performed atherectomy of the left femoral popliteal segment which had severe stenosis with in-stent restenoses in the distal aspect of the popliteal artery. Upon the completion of this, we went ahead and placed a 6 x 200-mm Innova stent in the left femoral popliteal segment. Balloon angioplasty was then performed which identified patient has an occlusion of inflow by our sheath which demonstrated the common femoral artery stenosis in the distal aspect in the proximal superficial femoral artery. At this point, our 7-[place] sheath was pulled back, and we performed another angioplasty of our common femoral artery with our 6 x 220- mm balloon. Upon the completion of this, patient had good inflow without any significant stenosis or flow-limiting stenosis into the popliteal artery. At this point, we went ahead and identified the patient still has stenosis in the distal aspect of the above-knee popliteal artery, at-knee popliteal artery and below-knee popliteal artery. Therefore, we went ahead and performed balloon angioplasty using 4-mm and 5-mm balloons. Upon the completion of this, we went ahead and performed 3 x 60-mm balloon angioplasty of the distal below-knee popliteal artery and the tibioperoneal trunk. At the completion of that, we went ahead and used a 2.5 x 220-mm balloon and performed balloon angioplasty of the posterior tibial artery and the common plantar artery. Upon angiogram, we identified good inflow into the posterior tibial artery. We went ahead and then recannulated our peroneal artery, placed a wire in the distal segment and performed balloon angioplasty with a 2.5 x 220-mm balloon. With our completion angiogram, we identified a good 3-vessel runoff to the lower leg. Patient still does have significant pedal disease, however, improved blood flow to her foot. At this point, we went ahead and used the Angio-Seal closure device to deploy in the left common femoral artery. All sheaths, wires and catheters were removed. Patient tolerated the procedure well, was taken to the postanesthesia care unit in stable condition. PLAN: Essentially, the patient underwent bilateral lower extremity intervention and debridement of both amputation stump sites that developed gangrene. At this point, we will follow the wounds very closely and plan to have the patient undergo vascular arterial ultrasound and pulse volume recording to follow her progress. Dictated By: Aung Valencia MD /santiago/darron /Document#: [id number]
[2016-12-02] MEDS: LEVOFLOXACIN 500MG/D5W (PMX) 100 ML IVPB SCH (21:40)
[2016-12-02] MEDS: FAMOTIDINE 20 MG TAB PO SCH (21:41)
[2016-12-03 03:21] VITALS: BP 146/67; RESP 19
--- NOTE | 2016-12-03 04:17 | PN ---
DATE: 12/02/2016 INFECTIOUS DISEASE PROGRESS NOTE SUBJECTIVE DATA: No acute changes. The patient is awake, looks comfortable. No fevers. LABORATORY AND DIAGNOSTIC DATA: WBC 7.4, no shift, no bounce. BUN 8, creatinine 0.63. ANTIMICROBIALS: The patient is on daptomycin, Flagyl, Levaquin. OBJECTIVE DATA: GENERAL: This is a fragile well-developed elderly woman who is alert in no distress. HEENT: Head atraumatic, normocephalic. Sclerae anicteric. Buccal mucosa pink. NECK: Supple. CHEST: Rise symmetrical. Breath sounds clear. HEART: S1, S2. ABDOMEN: Soft, bowel sounds present. EXTREMITIES: With bilateral necrotic gangrenous toes. Dressing intact. ASSESSMENT: 1. Bilateral foot gangrene. Status post left lower extremity endovascular intervention. 2. Hypertension. 3. Diabetes. 4. History of donor transplant in 2009. On immunosuppressive therapy. 5. Anemia. PLAN: The patient remains stable on appropriate antibiotics. Pending right lower extremity revascularization. Dictated By: Brittany De NP /santiago/jeanna /Document#: [id number] ISABEL
[2016-12-03] MEDS: PANTOPRAZOLE (EC) 40 MG TAB PO SCH (05:19)
[2016-12-03] MEDS: metroNIDAZOLE 500 MG/NS (PMX) 100 ML IVPB SCH ×2 (05:19→13:26)
[2016-12-03] MEDS: HYDROCODONE/APAP (5/325) TAB PO PRN ×3 (05:39→23:13)
[2016-12-03 08:00] VITALS: BP 135/68; RESP 18
[2016-12-03] MEDS: MYCOPHENOLATE 250 MG CAP PO SCH ×2 (09:11→23:13)
[2016-12-03] MEDS: ENOXAPARIN 30 MG/0.3 ML SYG SC SCH (09:11)
[2016-12-03] MEDS: TACROLIMUS 0.5 MG CAP PO SCH ×2 (09:11→23:14)
[2016-12-03] MEDS: GABAPENTIN 100 MG CAP PO SCH ×3 (09:12→23:14)
[2016-12-03] MEDS: ASPIRIN (EC) 81 MG TAB PO SCH (09:12)
[2016-12-03] MEDS: FOLIC ACID 1 MG TAB PO SCH (09:17)
[2016-12-03] MEDS: BENAZEPRIL 10 MG TAB PO SCH (09:17)
[2016-12-03] MEDS: METOPROLOL 25 MG TAB PO SCH ×2 (09:18→23:09)
[2016-12-03] MEDS: DILTIAZEM (CD) 180 MG CAP PO SCH (09:19)
--- NOTE | 2016-12-03 10:17 | CONS ---
Date/Time of Note Date/Time of Note DATE: 12/03/16 TIME: 10:14 Assessment/Plan Assessment/Plan Additional Assessment/Plan 1. Pre-op for LE vascular procedure. Nl EF and no ischemia by lexiscan 11/13 only scar- per Dr. Powell, Mod - Ok for surgery, moderate risk. NO CP now. Surgical team follows. Post stenting of LE artery - tolerated well - vascular team follows. 2.HTN-uncontrolled - con't to adjust Rx - will monitor - BETTER NOW 3,CAD - no CP now, no ischemi patrick Stress test 11/13 - no Cp noted - OK TO PROCEDURE, moderate risk. Tolerated procedure well. 4.PAD with nonhealing LE wounds - vascular to follow, wound care in place 5. -moderate by ECHo.- no intervention planned now - stable by exam Consultation Date/Type/Reason Admit Date/Time Nov 12, 2016 at 10:06 Initial Consult Date 11/13/16 Type of Consultation: NEPHROLOGY Referring Provider: KRISTIN HALL MD 24 HR Interval Summary Free Text/Dictation Post stenting of LE artery - tolerated well - vascular team follows. Pain controlled. ROS: No fever, no chills, no nausea, no vomiting, no diarrhea/constipation No recent weight changes No chest pain, no PND, no orthopnea No dizziness, blurred vision No thirst, no heat or cold intolerance Exam/Review of Systems Vital Signs Vitals Vital Signs Date Time Temp Pulse Resp B/P Pulse Ox O2 Delivery O2 Flow Rate FiO2 12/03/16 08:00 98.3 72 18 135/68 98 12/02/16 16:10 Nasal Cannula 2.0 Intake and Output 12/02/16 12/02/16 12/03/16 15:00 23:00 07:00 Intake Total 300 ml 230 ml 550 ml Balance 300 ml 230 ml 550 ml Exam General: WN/WD/NAD, AOx 3 HEENT: Unicetric/atraumatic/EOMI (follow commands) NECK: JVD elevated, no thyromegaly Lymph: no lymphadenopathy HEART: regular with no S3, II/ systolic murmur at apex LUNGS: Coarse sounds ABD: soft, NT, ND, +BS : Intact Neuro: non focal SKIN: chronic changes EXT: trace edema, PAD Results Result Diagram: 12/02/1651212/02/16513 Results 24 hrs Laboratory Tests Test 12/02/16 11:30 Bedside Glucose 103 Medications Medications Current Medications Acetaminophen (Tylenol Tab) 650 mg Q6H PRN PO PAIN LEVEL 1-3 OR FEVER; Start at 16:00 Pantoprazole (Protonix Tab) 40 mg DAILY@06 PO Last administered on 12/03/16 05 :19; Admin Dose 40 MG; Start 11/13/16 at 06:00 Enoxaparin Sodium (Lovenox) 30 mg DAILY SC Last administered on 12/03/16 09:11 ; Admin Dose 30 MG; Start 11/13/16 at 09:00 Aspirin (Halfprin) 81 mg DAILY PO Last administered on 12/03/16 09:12; Admin Dose 81 MG; Start 11/13/16 at 09:00 Diltiazem HCl (Cardizem Cd) 180 mg DAILY PO Last administered on 12/03/16 09: 19; Admin Dose 180 MG; Start 11/13/16 at 09:00 Famotidine (Pepcid) 40 mg HS PO Last administered on 12/02/16 21:41; Admin Dose 40 MG; Start 11/12/16 at 21:00 Folic Acid (Folic Acid) 1 mg DAILY PO Last administered on 12/03/16 09:17; Admin Dose 1 MG; Start 11/13/16 at 09:00 Mycophenolate Mofetil (Cellcept) 1,000 mg BID PO Last administered on 09:11; Admin Dose 1,000 MG; Start 11/12/16 at 21:00 Metoprolol Tartrate (Lopressor) 75 mg BID PO Last administered on 12/03/16 09: 18; Admin Dose 75 MG; Start 11/12/16 at 21:00 Gabapentin 100 mg 100 mg TID PO Last administered on 12/03/16 09:12; Admin Dose 100 MG; Start 11/12/16 at 21:00 Levofloxacin/ Dextrose 100 ml @ 100 mls/hr Q24H IVPB Last administered on 12/02 21:40; Admin Dose 100 MLS/HR; Start 11/13/16 at 20:30 Metronidazole 100 ml @ 100 mls/hr Q8 IVPB Last administered on 12/03/16 05:19 ; Admin Dose 100 MLS/HR; Start 11/14/16 at 16:00 Daptomycin/Sodium Chloride (Cubicin/NS) 100 ml @ 200 mls/hr Q24H IVPB Last administered on 12/02/16 16:29; Admin Dose 200 MLS/HR; Start 11/14/16 at 17:00 Zolpidem Tartrate (Ambien) 5 mg HS PRN PO INSOMNIA; Start 11/15/16 at 23:30 Loperamide HCl (Imodium Cap) 2 mg QID PRN PO DIARRHEA Last administered on 11/17 12:51; Admin Dose 2 MG; Start 11/16/16 at 16:00 Acetaminophen/ Hydrocodone Bitart ([place] (5/325)) 1 tab Q6H PRN PO pain Last administered on 12/03/16 05:39; Admin Dose 1 TAB; Start 11/22/16 at 12:00 Morphine Sulfate (morphine) 2 mg Q4H PRN IV SEVERE PAIN LEVEL 7-10 Last administered on 12/02/16 23:42; Admin Dose 2 MG; Start 11/23/16 at 12:00 Tacrolimus (Prograf) 2 mg Q12 PO Last administered on 12/03/16 09:11; Admin Dose 2 MG; Start 11/24/16 at 10:00 Ondansetron HCl (Zofran Inj) 4 mg Q4H PRN IV NAUSEA AND/OR VOMITING Last administered on 11/30/16 17:21; Admin Dose 4 MG; Start 11/27/16 at 17:30 Hydralazine HCl (Apresoline) 10 mg Q6H PRN IV ELEVATED BLOOD PRESSURE; Start at 21:00 Hydralazine HCl (Apresoline) 20 mg Q6H PRN IV ELEVATED BLOOD PRESSURE Last administered on 11/27/16 21:42; Admin Dose 20 MG; Start 11/27/16 at 21:00 Benazepril HCl (Lotensin) 10 mg DAILY PO Last administered on 12/03/16 09:17; Admin Dose 10 MG; Start 11/30/16 at 09:00 Ondansetron HCl (Zofran Inj) 4 mg Q4H PRN IV NAUSEA AND/OR VOMITING; Start at 15:30 MIRELLA MOSER MD Dec 03, 2016 10:17
--- NOTE | 2016-12-03 10:55 | PN ---
Date/Time of Note Date/Time of Note DATE: 12/03/16 TIME: 10:54 Assessment/Plan VTE Prophylaxis VTE Prophylaxis Intervention: LMWH Lines/Catheters IV [facility] Peripheral IV Urinary Cath still in place: No Assessment/Plan Chief Complaint/Hosp Course 1.Significant peripheral vascular disease with bilateral foot necrotic open wound with exposed bone and critical limb ischemia . Now with completion of staged vascular interventions. -Status post RIGHT FEM-POP ATHERECTOMY, STENTING AND ANGIOPLASTY 11/27/2016 -status post LEFT FEMPOP ATHERECTOMY, BALLOON ANGIOPLASTY AND STENTING 2016 -Status post Excisional debridement of open necrotic wound of the right and left foot 11/30/16-F/u wound CS -We will continue patient on aspirin with addition of Plavix per vascular recommendation and statin -Weightbearing as tolerated bilaterally with postoperative shoes with physical therapy 2.Status post kidney transplant: - on immunosuppression with Prograf, CellCept -Nephrology on board and will follow recommendations-on Mucomyst for renal prophylaxis for vascular intervention 3. Hypertension. -Continue antihypertensives 4. Chronic anemia. -H&H stable. Will monitor. 5. Peripheral neuropathy. -Continue pain medications 6. History of PAD with status post amputation 4th,5th left toes and 5th right toe DVT prophylaxis: Lovenox PUD prophylaxis: Protonix Plan: Discharge planning-[facility] living facility versus home health physical therapy with weightbearing as tolerated bilaterally with postoperative shoes. Physical therapy to see patient. Would also require a walker. CM to follow. Anticoagulation with aspirin and Plavix. Case discussed with Problems: Subjective 24 Hr Interval Summary Free Text/Dictation Status post left lower extremity revascularization. Patient doing well. Exam/Review of Systems Vital Signs Vitals Vital Signs Date Time Temp Pulse Resp B/P Pulse Ox O2 Delivery O2 Flow Rate FiO2 12/03/16 08:00 98.3 72 18 135/68 98 12/02/16 16:10 Nasal Cannula 2.0 Intake and Output 12/02/16 12/02/16 12/03/16 15:00 23:00 07:00 Intake Total 300 ml 230 ml 550 ml Balance 300 ml 230 ml 550 ml Exam General: Well developed,adequately built, not in any acute distress . HEENT: Normocephalic, Atraumatic, No laceration or hematoma; Eyes: PEERL, Conjunctiva clear, Anicteric sclera Neck: Supple without any lymphadenopathy, nontender, no JVD, no carotid bruits, trachea midline, no thyromegaly Cardiac: S1, S2 auscultated, regular rhythm and rate, no mumurs or gallop Pulmonary: Normal respiratory effort. Chest clear to auscultation bilaterally, no adventitious breath sounds GI: Abdomen normal to inspection. Soft, non tender, non- distended, no masses, no rebound tenderness or guarding. Bowel sounds active on all four quadrants Genitourinary: Deferred Extremities: Gangrenous toes bilateral-Status post debridement-covered with dressing/intact,. No cyanosis, clubbing, or edema. Pulses faint bilaterally. Full ROM on all four extremities. No focal weakness appreciated. Neurologic: Alert to person, place, time, and situation. Affect appropriate, intact sensation. Skin: Clean,dry, and intact. No ecchymosis, no rashes, or lesions Results Result Diagram: 12/02/1613 12/02/16513 Results 24 hrs Laboratory Tests Test 12/02/16 11:30 Bedside Glucose 103 Medications Medications Current Medications Acetaminophen (Tylenol Tab) 650 mg Q6H PRN PO PAIN LEVEL 1-3 OR FEVER; Start at 16:00 Pantoprazole (Protonix Tab) 40 mg DAILY@06 PO Last administered on 12/03/16 05 :19; Admin Dose 40 MG; Start 11/13/16 at 06:00 Enoxaparin Sodium (Lovenox) 30 mg DAILY SC Last administered on 12/03/16 09:11 ; Admin Dose 30 MG; Start 11/13/16 at 09:00 Aspirin (Halfprin) 81 mg DAILY PO Last administered on 12/03/16 09:12; Admin Dose 81 MG; Start 11/13/16 at 09:00 Diltiazem HCl (Cardizem Cd) 180 mg DAILY PO Last administered on 12/03/16 09: 19; Admin Dose 180 MG; Start 11/13/16 at 09:00 Famotidine (Pepcid) 40 mg HS PO Last administered on 12/02/16 21:41; Admin Dose 40 MG; Start 11/12/16 at 21:00 Folic Acid (Folic Acid) 1 mg DAILY PO Last administered on 12/03/16 09:17; Admin Dose 1 MG; Start 11/13/16 at 09:00 Mycophenolate Mofetil (Cellcept) 1,000 mg BID PO Last administered on 09:11; Admin Dose 1,000 MG; Start 11/12/16 at 21:00 Metoprolol Tartrate (Lopressor) 75 mg BID PO Last administered on 12/03/16 09: 18; Admin Dose 75 MG; Start 11/12/16 at 21:00 Gabapentin 100 mg 100 mg TID PO Last administered on 12/03/16 09:12; Admin Dose 100 MG; Start 11/12/16 at 21:00 Levofloxacin/ Dextrose 100 ml @ 100 mls/hr Q24H IVPB Last administered on 12/02 21:40; Admin Dose 100 MLS/HR; Start 11/13/16 at 20:30 Metronidazole 100 ml @ 100 mls/hr Q8 IVPB Last administered on 12/03/16 05:19 ; Admin Dose 100 MLS/HR; Start 11/14/16 at 16:00 Daptomycin/Sodium Chloride (Cubicin/NS) 100 ml @ 200 mls/hr Q24H IVPB Last administered on 12/02/16 16:29; Admin Dose 200 MLS/HR; Start 11/14/16 at 17:00 Zolpidem Tartrate (Ambien) 5 mg HS PRN PO INSOMNIA; Start 11/15/16 at 23:30 Loperamide HCl (Imodium Cap) 2 mg QID PRN PO DIARRHEA Last administered on 11/17 12:51; Admin Dose 2 MG; Start 11/16/16 at 16:00 Acetaminophen/ Hydrocodone Bitart ([place] (5/325)) 1 tab Q6H PRN PO pain Last administered on 12/03/16 05:39; Admin Dose 1 TAB; Start 11/22/16 at 12:00 Morphine Sulfate (morphine) 2 mg Q4H PRN IV SEVERE PAIN LEVEL 7-10 Last administered on 12/02/16 23:42; Admin Dose 2 MG; Start 11/23/16 at 12:00 Tacrolimus (Prograf) 2 mg Q12 PO Last administered on 12/03/16 09:11; Admin Dose 2 MG; Start 11/24/16 at 10:00 Ondansetron HCl (Zofran Inj) 4 mg Q4H PRN IV NAUSEA AND/OR VOMITING Last administered on 11/30/16 17:21; Admin Dose 4 MG; Start 11/27/16 at 17:30 Hydralazine HCl (Apresoline) 10 mg Q6H PRN IV ELEVATED BLOOD PRESSURE; Start at 21:00 Hydralazine HCl (Apresoline) 20 mg Q6H PRN IV ELEVATED BLOOD PRESSURE Last administered on 11/27/16 21:42; Admin Dose 20 MG; Start 11/27/16 at 21:00 Benazepril HCl (Lotensin) 10 mg DAILY PO Last administered on 12/03/16 09:17; Admin Dose 10 MG; Start 11/30/16 at 09:00 Ondansetron HCl (Zofran Inj) 4 mg Q4H PRN IV NAUSEA AND/OR VOMITING; Start at 15:30 HELEN ANDREWS NP Dec 03, 2016 10:54
[2016-12-03] MEDS: morphine 2 MG INJ IV PRN ×2 (11:52→23:20)
[2016-12-03 14:00] VITALS: BP 135/69; RESP 18
--- NOTE | 2016-12-03 16:59 | CONS ---
Date/Time of Note Date/Time of Note DATE: 12/03/16 TIME: 16:57 Assessment/Plan Assessment/Plan Chief Complaint/Hosp Course SUBJECTIVE DATA: No acute changes. The patient is awake, looks comfortable. No fevers. ANTIMICROBIALS: The patient is on daptomycin, Flagyl, Levaquin. GENERAL: This is a fragile well-developed elderly woman who is alert in no distress. HEENT: Head atraumatic, normocephalic. Sclerae anicteric. Buccal mucosa pink. NECK: Supple. CHEST: Rise symmetrical. Breath sounds clear. HEART: S1, S2. ABDOMEN: Soft, bowel sounds present. EXTREMITIES: With bilateral necrotic gangrenous toes. Dressing intact. ASSESSMENT: 1. Bilateral foot gangrene. Status post revascularization procedure 2. Hypertension. 3. Diabetes. 4. History of donor transplant in 2009. On immunosuppressive therapy. 5. Anemia. PLAN: The patient remains stable, on appropriate antibiotics, continue present care, vascular rec-s. Problems: Consultation Date/Type/Reason Admit Date/Time Nov 12, 2016 at 10:06 Initial Consult Date 11/13/16 Type of Consultation: ID Referring Provider: KRISTIN HALL MD Exam/Review of Systems Vital Signs Vitals Vital Signs Date Time Temp Pulse Resp B/P Pulse Ox O2 Delivery O2 Flow Rate FiO2 12/03/16 14:00 99.4 69 18 135/69 97 12/02/16 16:10 Nasal Cannula 2.0 Intake and Output 12/02/16 12/02/16 12/03/16 15:00 23:00 07:00 Intake Total 300 ml 230 ml 550 ml Balance 300 ml 230 ml 550 ml Results Result Diagram: 12/02/16 0513 12/02/16 0514 Medications Medications Current Medications Acetaminophen (Tylenol Tab) 650 mg Q6H PRN PO PAIN LEVEL 1-3 OR FEVER; Start at 16:00 Pantoprazole (Protonix Tab) 40 mg DAILY@06 PO Last administered on 12/03/16 05 :19; Admin Dose 40 MG; Start 11/13/16 at 06:00 Aspirin (Halfprin) 81 mg DAILY PO Last administered on 12/03/16 09:12; Admin Dose 81 MG; Start 11/13/16 at 09:00 Diltiazem HCl (Cardizem Cd) 180 mg DAILY PO Last administered on 12/03/16 09: 19; Admin Dose 180 MG; Start 11/13/16 at 09:00 Famotidine (Pepcid) 40 mg HS PO Last administered on 12/02/16 21:41; Admin Dose 40 MG; Start 11/12/16 at 21:00 Folic Acid (Folic Acid) 1 mg DAILY PO Last administered on 12/03/16 09:17; Admin Dose 1 MG; Start 11/13/16 at 09:00 Mycophenolate Mofetil (Cellcept) 1,000 mg BID PO Last administered on 09:11; Admin Dose 1,000 MG; Start 11/12/16 at 21:00 Metoprolol Tartrate (Lopressor) 75 mg BID PO Last administered on 12/03/16 09: 18; Admin Dose 75 MG; Start 11/12/16 at 21:00 Gabapentin 100 mg 100 mg TID PO Last administered on 12/03/16 13:26; Admin Dose 100 MG; Start 11/12/16 at 21:00 Levofloxacin/ Dextrose 100 ml @ 100 mls/hr Q24H IVPB Last administered on 12/02 21:40; Admin Dose 100 MLS/HR; Start 11/13/16 at 20:30 Metronidazole 100 ml @ 100 mls/hr Q8 IVPB Last administered on 12/03/16 13:26 ; Admin Dose 100 MLS/HR; Start 11/14/16 at 16:00 Daptomycin/Sodium Chloride (Cubicin/NS) 100 ml @ 200 mls/hr Q24H IVPB Last administered on 12/02/16 16:29; Admin Dose 200 MLS/HR; Start 11/14/16 at 17:00 Zolpidem Tartrate (Ambien) 5 mg HS PRN PO INSOMNIA; Start 11/15/16 at 23:30 Loperamide HCl (Imodium Cap) 2 mg QID PRN PO DIARRHEA Last administered on 11/17 12:51; Admin Dose 2 MG; Start 11/16/16 at 16:00 Acetaminophen/ Hydrocodone Bitart ([place] (5/325)) 1 tab Q6H PRN PO pain Last administered on 12/03/16 14:51; Admin Dose 1 TAB; Start 11/22/16 at 12:00 Morphine Sulfate (morphine) 2 mg Q4H PRN IV SEVERE PAIN LEVEL 7-10 Last administered on 12/03/16 11:52; Admin Dose 2 MG; Start 11/23/16 at 12:00 Tacrolimus (Prograf) 2 mg Q12 PO Last administered on 12/03/16 09:11; Admin Dose 2 MG; Start 11/24/16 at 10:00 Ondansetron HCl (Zofran Inj) 4 mg Q4H PRN IV NAUSEA AND/OR VOMITING Last administered on 11/30/16 17:21; Admin Dose 4 MG; Start 11/27/16 at 17:30 Hydralazine HCl (Apresoline) 10 mg Q6H PRN IV ELEVATED BLOOD PRESSURE; Start at 21:00 Hydralazine HCl (Apresoline) 20 mg Q6H PRN IV ELEVATED BLOOD PRESSURE Last administered on 11/27/16 21:42; Admin Dose 20 MG; Start 11/27/16 at 21:00 Benazepril HCl (Lotensin) 10 mg DAILY PO Last administered on 12/03/16 09:17; Admin Dose 10 MG; Start 11/30/16 at 09:00 Ondansetron HCl (Zofran Inj) 4 mg Q4H PRN IV NAUSEA AND/OR VOMITING; Start at 15:30 Clopidogrel Bisulfate (plaVIX) 75 mg DAILY PO ; Start 12/04/16 at 09:00 JACQUES HUERTA NP Dec 03, 2016 16:59
[2016-12-03] MEDS: DAPTOMYCIN IVPB SCH (17:12)
[2016-12-03] MEDS: SOD CHLORIDE 0.9% IVPB SCH (17:12)
--- NOTE | 2016-12-03 18:15 | CONS ---
Date/Time of Note Date/Time of Note DATE: 12/03/16 TIME: 18:14 Assessment/Plan Assessment/Plan Additional Assessment/Plan 1. 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 h/o donor kidney transplant in 2009 at [facility], currently on immunosuppression with Prograf, CellCept 4. 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 History of hypertension. 6. History of diabetes mellitus. 7. History of previous left upper extremity arteriovenous fistula. 8. Mild Metabolic acidosis, 9. Electrolyte imbalance- Hypercalcemia- resolved ,Hypokalemia- resolved, Hypomagnesemia- resolved Plan: IV abx as per Infectious disease service daptomycin s/p LE angiogram, d/c IVF Cr stable Continue current immunosuppresion with prograf,cellcept, no prednisone due to hypercalcemia will continue to follow up Consultation Date/Type/Reason Admit Date/Time Nov 12, 2016 at 10:06 Initial Consult Date 11/12/16 Type of Consultation: NEPHROLOGY Referring Provider: KRISTIN HALL MD Exam/Review of Systems Vital Signs Vitals Vital Signs Date Time Temp Pulse Resp B/P Pulse Ox O2 Delivery O2 Flow Rate FiO2 12/03/16 14:00 99.4 69 18 135/69 97 12/02/16 16:10 Nasal Cannula 2.0 Intake and Output 12/02/16 12/02/16 12/03/16 15:00 23:00 07:00 Intake Total 300 ml 230 ml 550 ml Balance 300 ml 230 ml 550 ml Results Result Diagram: 12/02/16 0513 12/02/16 0514 Medications Medications Current Medications Acetaminophen (Tylenol Tab) 650 mg Q6H PRN PO PAIN LEVEL 1-3 OR FEVER; Start at 16:00 Pantoprazole (Protonix Tab) 40 mg DAILY@06 PO Last administered on 12/03/16 05 :19; Admin Dose 40 MG; Start 11/13/16 at 06:00 Aspirin (Halfprin) 81 mg DAILY PO Last administered on 12/03/16 09:12; Admin Dose 81 MG; Start 11/13/16 at 09:00 Diltiazem HCl (Cardizem Cd) 180 mg DAILY PO Last administered on 12/03/16 09: 19; Admin Dose 180 MG; Start 11/13/16 at 09:00 Famotidine (Pepcid) 40 mg HS PO Last administered on 12/02/16 21:41; Admin Dose 40 MG; Start 11/12/16 at 21:00 Folic Acid (Folic Acid) 1 mg DAILY PO Last administered on 12/03/16 09:17; Admin Dose 1 MG; Start 11/13/16 at 09:00 Mycophenolate Mofetil (Cellcept) 1,000 mg BID PO Last administered on 09:11; Admin Dose 1,000 MG; Start 11/12/16 at 21:00 Metoprolol Tartrate (Lopressor) 75 mg BID PO Last administered on 12/03/16 09: 18; Admin Dose 75 MG; Start 11/12/16 at 21:00 Gabapentin 100 mg 100 mg TID PO Last administered on 12/03/16 13:26; Admin Dose 100 MG; Start 11/12/16 at 21:00 Levofloxacin/ Dextrose 100 ml @ 100 mls/hr Q24H IVPB Last administered on 12/02 21:40; Admin Dose 100 MLS/HR; Start 11/13/16 at 20:30 Metronidazole 100 ml @ 100 mls/hr Q8 IVPB Last administered on 12/03/16 13:26 ; Admin Dose 100 MLS/HR; Start 11/14/16 at 16:00 Daptomycin/Sodium Chloride (Cubicin/NS) 100 ml @ 200 mls/hr Q24H IVPB Last administered on 12/03/16 17:12; Admin Dose 200 MLS/HR; Start 11/14/16 at 17:00 Zolpidem Tartrate (Ambien) 5 mg HS PRN PO INSOMNIA; Start 11/15/16 at 23:30 Loperamide HCl (Imodium Cap) 2 mg QID PRN PO DIARRHEA Last administered on 11/17 12:51; Admin Dose 2 MG; Start 11/16/16 at 16:00 Acetaminophen/ Hydrocodone Bitart ([place] (5/325)) 1 tab Q6H PRN PO pain Last administered on 12/03/16 14:51; Admin Dose 1 TAB; Start 11/22/16 at 12:00 Morphine Sulfate (morphine) 2 mg Q4H PRN IV SEVERE PAIN LEVEL 7-10 Last administered on 12/03/16 11:52; Admin Dose 2 MG; Start 11/23/16 at 12:00 Tacrolimus (Prograf) 2 mg Q12 PO Last administered on 12/03/16 09:11; Admin Dose 2 MG; Start 11/24/16 at 10:00 Ondansetron HCl (Zofran Inj) 4 mg Q4H PRN IV NAUSEA AND/OR VOMITING Last administered on 11/30/16 17:21; Admin Dose 4 MG; Start 11/27/16 at 17:30 Hydralazine HCl (Apresoline) 10 mg Q6H PRN IV ELEVATED BLOOD PRESSURE; Start at 21:00 Hydralazine HCl (Apresoline) 20 mg Q6H PRN IV ELEVATED BLOOD PRESSURE Last administered on 11/27/16 21:42; Admin Dose 20 MG; Start 11/27/16 at 21:00 Benazepril HCl (Lotensin) 10 mg DAILY PO Last administered on 12/03/16 09:17; Admin Dose 10 MG; Start 11/30/16 at 09:00 Ondansetron HCl (Zofran Inj) 4 mg Q4H PRN IV NAUSEA AND/OR VOMITING; Start at 15:30 Clopidogrel Bisulfate (plaVIX) 75 mg DAILY PO ; Start 12/04/16 at 09:00 RAMON KEMP MD Dec 03, 2016 18:15
[2016-12-03 19:56] VITALS: BP 127/66; RESP 18
[2016-12-03] MEDS: LEVOFLOXACIN 500MG/D5W (PMX) 100 ML IVPB SCH (23:06)
[2016-12-03] MEDS: FAMOTIDINE 20 MG TAB PO SCH (23:13)
[2016-12-04] MEDS: metroNIDAZOLE 500 MG/NS (PMX) 100 ML IVPB SCH ×4 (00:04→22:40)
[2016-12-04 02:15] VITALS: BP 157/74; RESP 20
[2016-12-04] MEDS: HYDROCODONE/APAP (5/325) TAB PO PRN ×3 (02:32→21:19)
[2016-12-04] MEDS: PANTOPRAZOLE (EC) 40 MG TAB PO SCH (05:28)
[2016-12-04 08:30] VITALS: BP 127/71; RESP 18
[2016-12-04] MEDS: TACROLIMUS 0.5 MG CAP PO SCH ×2 (10:15→21:11)
[2016-12-04] MEDS: MYCOPHENOLATE 250 MG CAP PO SCH ×2 (10:15→21:09)
[2016-12-04] MEDS: ASPIRIN (EC) 81 MG TAB PO SCH (10:15)
[2016-12-04] MEDS: DILTIAZEM (CD) 180 MG CAP PO SCH (10:15)
[2016-12-04] MEDS: CLOPIDOGREL 75 MG TAB PO SCH (10:16)
[2016-12-04] MEDS: BENAZEPRIL 10 MG TAB PO SCH (10:16)
[2016-12-04] MEDS: GABAPENTIN 100 MG CAP PO SCH ×3 (10:16→21:10)
[2016-12-04] MEDS: METOPROLOL 25 MG TAB PO SCH ×2 (10:17→21:15)
[2016-12-04] MEDS: FOLIC ACID 1 MG TAB PO SCH (10:20)
--- NOTE | 2016-12-04 10:30 | PN ---
Date/Time of Note Date/Time of Note DATE: 12/04/16 TIME: 10:27 Assessment/Plan VTE Prophylaxis VTE Prophylaxis Intervention: other (ASA/Plavix) Lines/Catheters IV [facility] Type [facility] Peripheral IV Urinary Cath still in place: No Assessment/Plan Chief Complaint/Hosp Course 1.Significant peripheral vascular disease with bilateral foot necrotic open wound with exposed bone and critical limb ischemia . Now with completion of staged vascular interventions. -Status post RIGHT FEM-POP ATHERECTOMY, STENTING AND ANGIOPLASTY 11/27/2016 -status post LEFT FEMPOP ATHERECTOMY, BALLOON ANGIOPLASTY AND STENTING 2016 -Status post Excisional debridement of open necrotic wound of the right and left foot 11/30/16-F/u wound CS -On ASA,Plavix -Weightbearing as tolerated bilaterally with postoperative shoes with physical therapy 2.Status post kidney transplant: - on immunosuppression with Prograf, CellCept -Nephrology on board and will follow recommendations-on Mucomyst for renal prophylaxis for vascular intervention 3. Hypertension. -Continue antihypertensives 4. Chronic anemia. -H&H stable. Will monitor. 5. Peripheral neuropathy. -Continue pain medications 6. History of PAD with status post amputation 4th,5th left toes and 5th right toe DVT prophylaxis: Lovenox PUD prophylaxis: Protonix Plan: Discharge planning-long term facility versus home health physical therapy with weightbearing as tolerated bilaterally with postoperative shoes. Pending Physical therapy. Would also require a walker. CM to follow. Anticoagulation with aspirin and Plavix for indeterminate period. Case discussed with Problems: Subjective 24 Hr Interval Summary Free Text/Dictation No acute episodes.Doing well. pending PT Exam/Review of Systems Vital Signs Vitals Vital Signs Date Time Temp Pulse Resp B/P Pulse Ox O2 Delivery O2 Flow Rate FiO2 12/04/16 08:30 98.7 70 18 127/71 100 12/02/16 16:10 Nasal Cannula 2.0 Intake and Output 12/03/16 12/03/16 12/04/16 15:00 23:00 07:00 Intake Total 100 ml 700 ml 780 ml Balance 100 ml 700 ml 780 ml Exam General: Well developed,adequately built, not in any acute distress . HEENT: Normocephalic, Atraumatic, No laceration or hematoma; Eyes: PEERL, Conjunctiva clear, Anicteric sclera Neck: Supple without any lymphadenopathy, nontender, no JVD, no carotid bruits, trachea midline, no thyromegaly Cardiac: S1, S2 auscultated, regular rhythm and rate, no mumurs or gallop Pulmonary: Normal respiratory effort. Chest clear to auscultation bilaterally, no adventitious breath sounds GI: Abdomen normal to inspection. Soft, non tender, non- distended, no masses, no rebound tenderness or guarding. Bowel sounds active on all four quadrants Genitourinary: Deferred Extremities: Gangrenous toes bilateral-Status post debridement-covered with dressing/intact,. No cyanosis, clubbing, or edema. Pulses faint bilaterally. Full ROM on all four extremities. No focal weakness appreciated. Neurologic: Alert to person, place, time, and situation. Affect appropriate, intact sensation. Skin: Clean,dry, and intact. No ecchymosis, no rashes, or lesions Results Result Diagram: 12/02/1651212/02/1614 Medications Medications Current Medications Acetaminophen (Tylenol Tab) 650 mg Q6H PRN PO PAIN LEVEL 1-3 OR FEVER; Start at 16:00 Pantoprazole (Protonix Tab) 40 mg DAILY@06 PO Last administered on 12/04/16 05 :28; Admin Dose 40 MG; Start 11/13/16 at 06:00 Aspirin (Halfprin) 81 mg DAILY PO Last administered on 12/04/16 10:15; Admin Dose 81 MG; Start 11/13/16 at 09:00 Diltiazem HCl (Cardizem Cd) 180 mg DAILY PO Last administered on 12/04/16 10: 15; Admin Dose 180 MG; Start 11/13/16 at 09:00 Famotidine (Pepcid) 40 mg HS PO Last administered on 12/03/16 23:13; Admin Dose 40 MG; Start 11/12/16 at 21:00 Folic Acid (Folic Acid) 1 mg DAILY PO Last administered on 12/04/16 10:20; Admin Dose 1 MG; Start 11/13/16 at 09:00 Mycophenolate Mofetil (Cellcept) 1,000 mg BID PO Last administered on 10:15; Admin Dose 1,000 MG; Start 11/12/16 at 21:00 Metoprolol Tartrate (Lopressor) 75 mg BID PO Last administered on 12/04/16 10: 17; Admin Dose 75 MG; Start 11/12/16 at 21:00 Gabapentin 100 mg 100 mg TID PO Last administered on 12/04/16 10:16; Admin Dose 100 MG; Start 11/12/16 at 21:00 Levofloxacin/ Dextrose 100 ml @ 100 mls/hr Q24H IVPB Last administered on 12/03 23:06; Admin Dose 100 MLS/HR; Start 11/13/16 at 20:30 Metronidazole 100 ml @ 100 mls/hr Q8 IVPB Last administered on 12/04/16 05:28 ; Admin Dose 100 MLS/HR; Start 11/14/16 at 16:00 Daptomycin/Sodium Chloride (Cubicin/NS) 100 ml @ 200 mls/hr Q24H IVPB Last administered on 12/03/16 17:12; Admin Dose 200 MLS/HR; Start 11/14/16 at 17:00 Zolpidem Tartrate (Ambien) 5 mg HS PRN PO INSOMNIA; Start 11/15/16 at 23:30 Loperamide HCl (Imodium Cap) 2 mg QID PRN PO DIARRHEA Last administered on 11/17 12:51; Admin Dose 2 MG; Start 11/16/16 at 16:00 Acetaminophen/ Hydrocodone Bitart ([place] (5/325)) 1 tab Q6H PRN PO pain Last administered on 12/04/16 10:21; Admin Dose 1 TAB; Start 11/22/16 at 12:00 Morphine Sulfate (morphine) 2 mg Q4H PRN IV SEVERE PAIN LEVEL 7-10 Last administered on 12/03/16 23:20; Admin Dose 2 MG; Start 11/23/16 at 12:00 Tacrolimus (Prograf) 2 mg Q12 PO Last administered on 12/04/16 10:15; Admin Dose 2 MG; Start 11/24/16 at 10:00 Ondansetron HCl (Zofran Inj) 4 mg Q4H PRN IV NAUSEA AND/OR VOMITING Last administered on 11/30/16 17:21; Admin Dose 4 MG; Start 11/27/16 at 17:30 Hydralazine HCl (Apresoline) 10 mg Q6H PRN IV ELEVATED BLOOD PRESSURE; Start at 21:00 Hydralazine HCl (Apresoline) 20 mg Q6H PRN IV ELEVATED BLOOD PRESSURE Last administered on 11/27/16 21:42; Admin Dose 20 MG; Start 11/27/16 at 21:00 Benazepril HCl (Lotensin) 10 mg DAILY PO Last administered on 12/04/16 10:16; Admin Dose 10 MG; Start 11/30/16 at 09:00 Ondansetron HCl (Zofran Inj) 4 mg Q4H PRN IV NAUSEA AND/OR VOMITING; Start at 15:30 Clopidogrel Bisulfate (plaVIX) 75 mg DAILY PO Last administered on 12/04/16 10 :16; Admin Dose 75 MG; Start 12/04/16 at 09:00 HELEN ANDREWS NP Dec 04, 2016 10:29
--- NOTE | 2016-12-04 13:14 | CONS ---
Date/Time of Note Date/Time of Note DATE: 12/04/16 TIME: 13:13 Assessment/Plan Assessment/Plan Additional Assessment/Plan 1. 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 h/o donor kidney transplant in 2009 at [facility], currently on immunosuppression with Prograf, CellCept 4. 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 History of hypertension. 6. History of diabetes mellitus. 7. History of previous left upper extremity arteriovenous fistula. 8. Mild Metabolic acidosis, 9. Electrolyte imbalance- Hypercalcemia- resolved ,Hypokalemia- resolved, Hypomagnesemia- resolved Plan: IV abx as per Infectious disease service daptomycin s/p LE angiogram, cr stable, no IVF< no mucomyst needed Continue current immunosuppresion with prograf,cellcept, no prednisone due to hypercalcemia will continue to follow up Consultation Date/Type/Reason Admit Date/Time Nov 12, 2016 at 10:06 Initial Consult Date 11/12/16 Type of Consultation: NEPHROLOGY Referring Provider: KRISTIN HALL MD Exam/Review of Systems Vital Signs Vitals Vital Signs Date Time Temp Pulse Resp B/P Pulse Ox O2 Delivery O2 Flow Rate FiO2 12/04/16 08:30 98.7 70 18 127/71 100 12/02/16 16:10 Nasal Cannula 2.0 Intake and Output 12/03/16 12/03/16 12/04/16 15:00 23:00 07:00 Intake Total 100 ml 700 ml 780 ml Balance 100 ml 700 ml 780 ml Exam HEENT: Unremarkable -- NECK: Supple, trachea midline. CHEST: Rise symmetrical, without dyspnea on observation HEART: Pulse RRR ABDOMEN: Soft, benign EXTREMITIES: Warm -- gangrenous toes Results Result Diagram: 12/02/16 0513 12/02/16 0514 Medications Medications Current Medications Acetaminophen (Tylenol Tab) 650 mg Q6H PRN PO PAIN LEVEL 1-3 OR FEVER; Start at 16:00 Pantoprazole (Protonix Tab) 40 mg DAILY@06 PO Last administered on 12/04/16t 05 :28; Admin Dose 40 MG; Start 11/13/16 at 06:00 Aspirin (Halfprin) 81 mg DAILY PO Last administered on 12/04/16 10:15; Admin Dose 81 MG; Start 11/13/16 at 09:00 Diltiazem HCl (Cardizem Cd) 180 mg DAILY PO Last administered on 12/04/16 10: 15; Admin Dose 180 MG; Start 11/13/16 at 09:00 Famotidine (Pepcid) 40 mg HS PO Last administered on 12/03/16 23:13; Admin Dose 40 MG; Start 11/12/16 at 21:00 Folic Acid (Folic Acid) 1 mg DAILY PO Last administered on 12/04/16 10:20; Admin Dose 1 MG; Start 11/13/16 at 09:00 Mycophenolate Mofetil (Cellcept) 1,000 mg BID PO Last administered on 10:15; Admin Dose 1,000 MG; Start 11/12/16 at 21:00 Metoprolol Tartrate (Lopressor) 75 mg BID PO Last administered on 12/04/16 10: 17; Admin Dose 75 MG; Start 11/12/16 at 21:00 Gabapentin 100 mg 100 mg TID PO Last administered on 12/04/16 10:16; Admin Dose 100 MG; Start 11/12/16 at 21:00 Levofloxacin/ Dextrose 100 ml @ 100 mls/hr Q24H IVPB Last administered on 12/03 23:06; Admin Dose 100 MLS/HR; Start 11/13/16 at 20:30 Metronidazole 100 ml @ 100 mls/hr Q8 IVPB Last administered on 12/04/16 05:28 ; Admin Dose 100 MLS/HR; Start 11/14/16 at 16:00 Daptomycin/Sodium Chloride (Cubicin/NS) 100 ml @ 200 mls/hr Q24H IVPB Last administered on 12/03/16 17:12; Admin Dose 200 MLS/HR; Start 11/14/16 at 17:00 Zolpidem Tartrate (Ambien) 5 mg HS PRN PO INSOMNIA; Start 11/15/16 at 23:30 Loperamide HCl (Imodium Cap) 2 mg QID PRN PO DIARRHEA Last administered on 11/17 12:51; Admin Dose 2 MG; Start 11/16/16 at 16:00 Acetaminophen/ Hydrocodone Bitart ([place] (5/325)) 1 tab Q6H PRN PO pain Last administered on 12/04/16 10:21; Admin Dose 1 TAB; Start 11/22/16 at 12:00 Morphine Sulfate (morphine) 2 mg Q4H PRN IV SEVERE PAIN LEVEL 7-10 Last administered on 12/03/16 23:20; Admin Dose 2 MG; Start 11/23/16 at 12:00 Tacrolimus (Prograf) 2 mg Q12 PO Last administered on 12/04/16 10:15; Admin Dose 2 MG; Start 11/24/16 at 10:00 Ondansetron HCl (Zofran Inj) 4 mg Q4H PRN IV NAUSEA AND/OR VOMITING Last administered on 11/30/16 17:21; Admin Dose 4 MG; Start 11/27/16 at 17:30 Hydralazine HCl (Apresoline) 10 mg Q6H PRN IV ELEVATED BLOOD PRESSURE; Start at 21:00 Hydralazine HCl (Apresoline) 20 mg Q6H PRN IV ELEVATED BLOOD PRESSURE Last administered on 11/27/16 21:42; Admin Dose 20 MG; Start 11/27/16 at 21:00 Benazepril HCl (Lotensin) 10 mg DAILY PO Last administered on 12/04/16 10:16; Admin Dose 10 MG; Start 11/30/16 at 09:00 Ondansetron HCl (Zofran Inj) 4 mg Q4H PRN IV NAUSEA AND/OR VOMITING; Start at 15:30 Clopidogrel Bisulfate (plaVIX) 75 mg DAILY PO Last administered on 12/04/16 10 :16; Admin Dose 75 MG; Start 12/04/16 at 09:00 RAMON KEMP MD Dec 04, 2016 13:14
[2016-12-04 14:52] VITALS: BP 147/67; RESP 16
--- NOTE | 2016-12-04 15:12 | CONS ---
Date/Time of Note Date/Time of Note DATE: 12/04/16 TIME: 15:11 Assessment/Plan Assessment/Plan Additional Assessment/Plan 1. Pre-op for LE vascular procedure. Nl EF and no ischemia by lexiscan 11/13 only scar- per Dr. Powell, Mod - Ok for surgery, moderate risk. NO CP now. Surgical team follows. Post stenting of LE artery - tolerated well - vascular team follows. Con't wound care. 2.HTN-uncontrolled - con't to adjust Rx - will monitor - BETTER NOW 3,CAD - no CP now, no ischemi patrick Stress test 11/13 - no Cp noted - OK TO PROCEDURE, moderate risk. Tolerated procedure well. NO CP now. 4.PAD with nonhealing LE wounds - vascular to follow, wound care in place 5. -moderate by ECHo.- no intervention planned now - stable by exam Consultation Date/Type/Reason Admit Date/Time Nov 12, 2016 at 10:06 Initial Consult Date 11/13/16 Type of Consultation: NEPHROLOGY Referring Provider: KRISTIN HALL MD 24 HR Interval Summary Free Text/Dictation NO acute change - vascualar team follows - on med rx - OFF TELE now ROS: No fever, no chills, no nausea, no vomiting, no diarrhea/constipation No recent weight changes No chest pain, no PND, no orthopnea No dizziness, blurred vision No thirst, no heat or cold intolerance Exam/Review of Systems Vital Signs Vitals Vital Signs Date Time Temp Pulse Resp B/P Pulse Ox O2 Delivery O2 Flow Rate FiO2 12/04/16 14:52 98.1 66 16 147/67 99 12/02/16 16:10 Nasal Cannula 2.0 Intake and Output 12/03/16 12/03/16 12/04/16 15:00 23:00 07:00 Intake Total 100 ml 700 ml 780 ml Balance 100 ml 700 ml 780 ml Exam General: WN/WD/NAD, AOx 3 HEENT: Unicetric/atraumatic/EOMI (follow commands) NECK: JVD elevated, no thyromegaly Lymph: no lymphadenopathy HEART: regular with no S3, II/ systolic murmur at apex LUNGS: Coarse sounds ABD: soft, NT, ND, +BS : Intact Neuro: non focal SKIN: chronic changes EXT: trace edema, severe PAD s/p part amputation Results Result Diagram: 12/02/16 0513 12/02/16 0514 Medications Medications Current Medications Acetaminophen (Tylenol Tab) 650 mg Q6H PRN PO PAIN LEVEL 1-3 OR FEVER; Start at 16:00 Pantoprazole (Protonix Tab) 40 mg DAILY@06 PO Last administered on 12/04/16 05 :28; Admin Dose 40 MG; Start 11/13/16 at 06:00 Aspirin (Halfprin) 81 mg DAILY PO Last administered on 12/04/16 10:15; Admin Dose 81 MG; Start 11/13/16 at 09:00 Diltiazem HCl (Cardizem Cd) 180 mg DAILY PO Last administered on 12/04/16 10: 15; Admin Dose 180 MG; Start 11/13/16 at 09:00 Famotidine (Pepcid) 40 mg HS PO Last administered on 12/03/16 23:13; Admin Dose 40 MG; Start 11/12/16 at 21:00 Folic Acid (Folic Acid) 1 mg DAILY PO Last administered on 12/04/16 10:20; Admin Dose 1 MG; Start 11/13/16 at 09:00 Mycophenolate Mofetil (Cellcept) 1,000 mg BID PO Last administered on 10:15; Admin Dose 1,000 MG; Start 11/12/16 at 21:00 Metoprolol Tartrate (Lopressor) 75 mg BID PO Last administered on 12/04/16 10: 17; Admin Dose 75 MG; Start 11/12/16 at 21:00 Gabapentin 100 mg 100 mg TID PO Last administered on 12/04/16 13:29; Admin Dose 100 MG; Start 11/12/16 at 21:00 Levofloxacin/ Dextrose 100 ml @ 100 mls/hr Q24H IVPB Last administered on 12/03 23:06; Admin Dose 100 MLS/HR; Start 11/13/16 at 20:30 Metronidazole 100 ml @ 100 mls/hr Q8 IVPB Last administered on 12/04/16 13:29 ; Admin Dose 100 MLS/HR; Start 11/14/16 at 16:00 Daptomycin/Sodium Chloride (Cubicin/NS) 100 ml @ 200 mls/hr Q24H IVPB Last administered on 12/03/16 17:12; Admin Dose 200 MLS/HR; Start 11/14/16 at 17:00 Zolpidem Tartrate (Ambien) 5 mg HS PRN PO INSOMNIA; Start 11/15/16 at 23:30 Loperamide HCl (Imodium Cap) 2 mg QID PRN PO DIARRHEA Last administered on 11/17 12:51; Admin Dose 2 MG; Start 11/16/16 at 16:00 Acetaminophen/ Hydrocodone Bitart ([place] (5/325)) 1 tab Q6H PRN PO pain Last administered on 12/04/16 10:21; Admin Dose 1 TAB; Start 11/22/16 at 12:00 Morphine Sulfate (morphine) 2 mg Q4H PRN IV SEVERE PAIN LEVEL 7-10 Last administered on 12/03/16 23:20; Admin Dose 2 MG; Start 11/23/16 at 12:00 Tacrolimus (Prograf) 2 mg Q12 PO Last administered on 12/04/16 10:15; Admin Dose 2 MG; Start 11/24/16 at 10:00 Ondansetron HCl (Zofran Inj) 4 mg Q4H PRN IV NAUSEA AND/OR VOMITING Last administered on 11/30/16 17:21; Admin Dose 4 MG; Start 11/27/16 at 17:30 Hydralazine HCl (Apresoline) 10 mg Q6H PRN IV ELEVATED BLOOD PRESSURE; Start at 21:00 Hydralazine HCl (Apresoline) 20 mg Q6H PRN IV ELEVATED BLOOD PRESSURE Last administered on 11/27/16 21:42; Admin Dose 20 MG; Start 11/27/16 at 21:00 Benazepril HCl (Lotensin) 10 mg DAILY PO Last administered on 12/04/16 10:16; Admin Dose 10 MG; Start 11/30/16 at 09:00 Ondansetron HCl (Zofran Inj) 4 mg Q4H PRN IV NAUSEA AND/OR VOMITING; Start at 15:30 Clopidogrel Bisulfate (plaVIX) 75 mg DAILY PO Last administered on 12/04/16 10 :16; Admin Dose 75 MG; Start 12/04/16 at 09:00 MIRELLA MOSER MD Dec 04, 2016 15:12
--- NOTE | 2016-12-04 16:52 | CONS ---
Date/Time of Note Date/Time of Note DATE: 12/04/16 TIME: 16:51 Assessment/Plan Assessment/Plan Chief Complaint/Hosp Course SUBJECTIVE DATA: No acute changes. The patient is awake, looks comfortable. No fevers. ANTIMICROBIALS: The patient is on daptomycin, Flagyl, Levaquin. GENERAL: This is a fragile well-developed elderly woman who is alert in no distress. HEENT: Head atraumatic, normocephalic. Sclerae anicteric. Buccal mucosa pink. NECK: Supple. CHEST: Rise symmetrical. Breath sounds clear. HEART: S1, S2. ABDOMEN: Soft, bowel sounds present. EXTREMITIES: With bilateral necrotic gangrenous toes. Dressing intact. ASSESSMENT: 1. Bilateral foot gangrene. Status post revascularization procedure 2. Hypertension. 3. Diabetes. 4. History of donor transplant in 2009. On immunosuppressive therapy. 5. Anemia. PLAN: The patient remains stable, on appropriate antibiotics, continue present care, vascular/cardiology/renal rec-s. staff Problems: Consultation Date/Type/Reason Admit Date/Time Nov 12, 2016 at 10:06 Initial Consult Date 11/13/16 Type of Consultation: id Referring Provider: KRISTIN HALL MD Exam/Review of Systems Vital Signs Vitals Vital Signs Date Time Temp Pulse Resp B/P Pulse Ox O2 Delivery O2 Flow Rate FiO2 12/04/16 14:52 98.1 66 16 147/67 99 12/02/16 16:10 Nasal Cannula 2.0 Intake and Output 12/03/16 12/03/16 12/04/16 15:00 23:00 07:00 Intake Total 100 ml 700 ml 780 ml Balance 100 ml 700 ml 780 ml Results Result Diagram: 12/02/16 0513 12/02/16 0514 Medications Medications Current Medications Acetaminophen (Tylenol Tab) 650 mg Q6H PRN PO PAIN LEVEL 1-3 OR FEVER; Start at 16:00 Pantoprazole (Protonix Tab) 40 mg DAILY@06 PO Last administered on 12/04/16t 05 :28; Admin Dose 40 MG; Start 11/13/16 at 06:00 Aspirin (Halfprin) 81 mg DAILY PO Last administered on 12/04/16t 10:15; Admin Dose 81 MG; Start 11/13/16 at 09:00 Diltiazem HCl (Cardizem Cd) 180 mg DAILY PO Last administered on 12/04/16 10: 15; Admin Dose 180 MG; Start 11/13/16 at 09:00 Famotidine (Pepcid) 40 mg HS PO Last administered on 12/03/16 23:13; Admin Dose 40 MG; Start 11/12/16 at 21:00 Folic Acid (Folic Acid) 1 mg DAILY PO Last administered on 12/04/16 10:20; Admin Dose 1 MG; Start 11/13/16 at 09:00 Mycophenolate Mofetil (Cellcept) 1,000 mg BID PO Last administered on 10:15; Admin Dose 1,000 MG; Start 11/12/16 at 21:00 Metoprolol Tartrate (Lopressor) 75 mg BID PO Last administered on 12/04/16 10: 17; Admin Dose 75 MG; Start 11/12/16 at 21:00 Gabapentin 100 mg 100 mg TID PO Last administered on 12/04/16 13:29; Admin Dose 100 MG; Start 11/12/16 at 21:00 Levofloxacin/ Dextrose 100 ml @ 100 mls/hr Q24H IVPB Last administered on 12/03 23:06; Admin Dose 100 MLS/HR; Start 11/13/16 at 20:30 Metronidazole 100 ml @ 100 mls/hr Q8 IVPB Last administered on 12/04/16 13:29 ; Admin Dose 100 MLS/HR; Start 11/14/16 at 16:00 Daptomycin/Sodium Chloride (Cubicin/NS) 100 ml @ 200 mls/hr Q24H IVPB Last administered on 12/03/16 17:12; Admin Dose 200 MLS/HR; Start 11/14/16 at 17:00 Zolpidem Tartrate (Ambien) 5 mg HS PRN PO INSOMNIA; Start 11/15/16 at 23:30 Loperamide HCl (Imodium Cap) 2 mg QID PRN PO DIARRHEA Last administered on 11/17 12:51; Admin Dose 2 MG; Start 11/16/16 at 16:00 Acetaminophen/ Hydrocodone Bitart ([place] (5/325)) 1 tab Q6H PRN PO pain Last administered on 12/04/16 10:21; Admin Dose 1 TAB; Start 11/22/16 at 12:00 Morphine Sulfate (morphine) 2 mg Q4H PRN IV SEVERE PAIN LEVEL 7-10 Last administered on 12/03/16 23:20; Admin Dose 2 MG; Start 11/23/16 at 12:00 Tacrolimus (Prograf) 2 mg Q12 PO Last administered on 12/04/16 10:15; Admin Dose 2 MG; Start 11/24/16 at 10:00 Ondansetron HCl (Zofran Inj) 4 mg Q4H PRN IV NAUSEA AND/OR VOMITING Last administered on 11/30/16 17:21; Admin Dose 4 MG; Start 11/27/16 at 17:30 Hydralazine HCl (Apresoline) 10 mg Q6H PRN IV ELEVATED BLOOD PRESSURE; Start at 21:00 Hydralazine HCl (Apresoline) 20 mg Q6H PRN IV ELEVATED BLOOD PRESSURE Last administered on 11/27/16 21:42; Admin Dose 20 MG; Start 11/27/16 at 21:00 Benazepril HCl (Lotensin) 10 mg DAILY PO Last administered on 12/04/16 10:16; Admin Dose 10 MG; Start 11/30/16 at 09:00 Ondansetron HCl (Zofran Inj) 4 mg Q4H PRN IV NAUSEA AND/OR VOMITING; Start at 15:30 Clopidogrel Bisulfate (plaVIX) 75 mg DAILY PO Last administered on 12/04/16 10 :16; Admin Dose 75 MG; Start 12/04/16 at 09:00 JACQUES HUERTA NP Dec 04, 2016 16:52
[2016-12-04] MEDS: DAPTOMYCIN IVPB SCH (17:46)
[2016-12-04] MEDS: SOD CHLORIDE 0.9% IVPB SCH (17:46)
[2016-12-04 21:02] VITALS: BP 106/57; RESP 18
[2016-12-04] MEDS: LEVOFLOXACIN 500MG/D5W (PMX) 100 ML IVPB SCH (21:09)
[2016-12-04] MEDS: FAMOTIDINE 20 MG TAB PO SCH (21:10)
[2016-12-04 21:15] VITALS: BP 140/69; PULSE 72
[2016-12-04] MEDS: morphine 2 MG INJ IV PRN (22:43)
[2016-12-05 02:19] VITALS: BP 93/56; RESP 18
[2016-12-05] MEDS: metroNIDAZOLE 500 MG/NS (PMX) 100 ML IVPB SCH ×3 (05:20→22:59)
[2016-12-05] MEDS: PANTOPRAZOLE (EC) 40 MG TAB PO SCH (05:20)
[2016-12-05 05:47] VITALS: BP 135/63; PULSE 64
[2016-12-05] MEDS: morphine 2 MG INJ IV PRN ×3 (05:48→23:04)
[2016-12-05] MEDS: GABAPENTIN 100 MG CAP PO SCH ×3 (08:06→20:43)
[2016-12-05] MEDS: FOLIC ACID 1 MG TAB PO SCH (08:06)
[2016-12-05] MEDS: ASPIRIN (EC) 81 MG TAB PO SCH (08:06)
[2016-12-05] MEDS: CLOPIDOGREL 75 MG TAB PO SCH (08:06)
[2016-12-05] MEDS: MYCOPHENOLATE 250 MG CAP PO SCH ×2 (08:06→20:40)
[2016-12-05] MEDS: TACROLIMUS 0.5 MG CAP PO SCH ×2 (08:06→20:46)
[2016-12-05 08:13] VITALS: BP 135/67; RESP 20
[2016-12-05] MEDS: DILTIAZEM (CD) 180 MG CAP PO SCH (08:18)
[2016-12-05] MEDS: METOPROLOL 25 MG TAB PO SCH ×2 (08:18→20:44)
[2016-12-05] MEDS: BENAZEPRIL 10 MG TAB PO SCH (08:18)
[2016-12-05] MEDS: HYDROCODONE/APAP (5/325) TAB PO PRN ×2 (08:25→20:44)
--- NOTE | 2016-12-05 10:10 | CONS ---
Date/Time of Note Date/Time of Note DATE: 12/05/16 TIME: 10:08 Assessment/Plan Assessment/Plan Additional Assessment/Plan 1. Pre-op for LE vascular procedure. Nl EF and no ischemia by lexiscan 11/13 only scar- per Dr. Powell, Mod - Ok for surgery, moderate risk. NO CP now. Surgical team follows. Post stenting of LE artery - tolerated well - vascular team follows. Con't wound care. PAIN RX in progress - extra morphine today as needed. 2.HTN-uncontrolled - con't to adjust Rx - will monitor - will monitor clinically 3,CAD - no CP now, no ischemi patrick Stress test 11/13 - no Cp noted - OK TO PROCEDURE, moderate risk. Tolerated procedure well. NO CP now. Tolerated procedure well. 4.PAD with nonhealing LE wounds - vascular to follow, wound care in place 5. -moderate by ECHo.- no intervention planned now - stable by exam Consultation Date/Type/Reason Admit Date/Time Nov 12, 2016 at 10:06 Initial Consult Date 11/13/16 Type of Consultation: id Referring Provider: KRISTIN HALL MD 24 HR Interval Summary Free Text/Dictation NO acute events - BP in good range - will monitor. ROS: No fever, no chills, no nausea, no vomiting, no diarrhea/constipation No recent weight changes No chest pain, no PND, no orthopnea No dizziness, blurred vision No thirst, no heat or cold intolerance Pain Rx Exam/Review of Systems Vital Signs Vitals Vital Signs Date Time Temp Pulse Resp B/P Pulse Ox O2 Delivery O2 Flow Rate FiO2 12/05/16 08:13 98.1 59 20 135/67 96 12/02/16 16:10 Nasal Cannula 2.0 Intake and Output 12/04/16 12/04/16 12/05/16 15:00 23:00 07:00 Intake Total 100 ml 760 ml 520 ml Balance 100 ml 760 ml 520 ml Exam General: WN/WD/NAD, AOx 3 mostly [place] HEENT: Unicetric/atraumatic/EOMI (follow commands) NECK: JVD elevated, no thyromegaly Lymph: no lymphadenopathy HEART: regular with no S3, II/ systolic murmur at apex LUNGS: Coarse sounds ABD: soft, NT, ND, +BS : Intact Neuro: non focal SKIN: chronic changes EXT: trace edema, post op - PAD Results Result Diagram: 12/02/1651212/02/16513 Medications Medications Current Medications Acetaminophen (Tylenol Tab) 650 mg Q6H PRN PO PAIN LEVEL 1-3 OR FEVER; Start at 16:00 Pantoprazole (Protonix Tab) 40 mg DAILY@06 PO Last administered on 12/05/16 05 :20; Admin Dose 40 MG; Start 11/13/16 at 06:00 Aspirin (Halfprin) 81 mg DAILY PO Last administered on 12/05/16 08:06; Admin Dose 81 MG; Start 11/13/16 at 09:00 Diltiazem HCl (Cardizem Cd) 180 mg DAILY PO Last administered on 12/05/16 08: 18; Admin Dose 180 MG; Start 11/13/16 at 09:00 Famotidine (Pepcid) 40 mg HS PO Last administered on 12/04/16 21:10; Admin Dose 40 MG; Start 11/12/16 at 21:00 Folic Acid (Folic Acid) 1 mg DAILY PO Last administered on 12/05/16 08:06; Admin Dose 1 MG; Start 11/13/16 at 09:00 Mycophenolate Mofetil (Cellcept) 1,000 mg BID PO Last administered on 08:06; Admin Dose 1,000 MG; Start 11/12/16 at 21:00 Metoprolol Tartrate (Lopressor) 75 mg BID PO Last administered on 12/04/16 21: 15; Admin Dose 75 MG; Start 11/12/16 at 21:00 Gabapentin 100 mg 100 mg TID PO Last administered on 12/05/16 08:06; Admin Dose 100 MG; Start 11/12/16 at 21:00 Levofloxacin/ Dextrose 100 ml @ 100 mls/hr Q24H IVPB Last administered on 12/04 21:09; Admin Dose 100 MLS/HR; Start 11/13/16 at 20:30 Metronidazole 100 ml @ 100 mls/hr Q8 IVPB Last administered on 12/05/16 05:20 ; Admin Dose 100 MLS/HR; Start 11/14/16 at 16:00 Daptomycin/Sodium Chloride (Cubicin/NS) 100 ml @ 200 mls/hr Q24H IVPB Last administered on 12/04/16 17:46; Admin Dose 200 MLS/HR; Start 11/14/16 at 17:00 Zolpidem Tartrate (Ambien) 5 mg HS PRN PO INSOMNIA; Start 11/15/16 at 23:30 Loperamide HCl (Imodium Cap) 2 mg QID PRN PO DIARRHEA Last administered on 11/17 12:51; Admin Dose 2 MG; Start 11/16/16 at 16:00 Acetaminophen/ Hydrocodone Bitart ([place] (5/325)) 1 tab Q6H PRN PO pain Last administered on 12/05/16 08:25; Admin Dose 1 TAB; Start 11/22/16 at 12:00 Morphine Sulfate (morphine) 2 mg Q4H PRN IV SEVERE PAIN LEVEL 7-10 Last administered on 12/05/16 05:48; Admin Dose 2 MG; Start 11/23/16 at 12:00 Tacrolimus (Prograf) 2 mg Q12 PO Last administered on 12/05/16 08:06; Admin Dose 2 MG; Start 11/24/16 at 10:00 Ondansetron HCl (Zofran Inj) 4 mg Q4H PRN IV NAUSEA AND/OR VOMITING Last administered on 11/30/16 17:21; Admin Dose 4 MG; Start 11/27/16 at 17:30 Hydralazine HCl (Apresoline) 10 mg Q6H PRN IV ELEVATED BLOOD PRESSURE; Start at 21:00 Hydralazine HCl (Apresoline) 20 mg Q6H PRN IV ELEVATED BLOOD PRESSURE Last administered on 11/27/16 21:42; Admin Dose 20 MG; Start 11/27/16 at 21:00 Benazepril HCl (Lotensin) 10 mg DAILY PO Last administered on 12/05/16 08:18; Admin Dose 10 MG; Start 11/30/16 at 09:00 Ondansetron HCl (Zofran Inj) 4 mg Q4H PRN IV NAUSEA AND/OR VOMITING; Start at 15:30 Clopidogrel Bisulfate (plaVIX) 75 mg DAILY PO Last administered on 12/05/16 08 :06; Admin Dose 75 MG; Start 12/04/16 at 09:00 MIRELLA MOSER MD Dec 05, 2016 10:09
--- NOTE | 2016-12-05 11:16 | PN ---
Date/Time of Note Date/Time of Note DATE: 12/05/16 TIME: 11:13 Assessment/Plan VTE Prophylaxis VTE Prophylaxis Intervention: other (ASA/Plavix) Lines/Catheters IV Catheter Type (from [facility]): Saline Lock Urinary Cath still in place: No Assessment/Plan Chief Complaint/Hosp Course 1.Significant peripheral vascular disease with bilateral foot necrotic open wound with exposed bone and critical limb ischemia . Now with completion of staged vascular interventions. -Status post RIGHT FEM-POP ATHERECTOMY, STENTING AND ANGIOPLASTY 11/27/2016 -status post LEFT FEMPOP ATHERECTOMY, BALLOON ANGIOPLASTY AND STENTING 2016 -Status post Excisional debridement of open necrotic wound of the right and left foot 11/30/16 -On ASA,Plavix -Weightbearing as tolerated bilaterally with postoperative shoes with physical therapy 2.Status post kidney transplant: - on immunosuppression with Prograf, CellCept -Nephrology on board and will follow recommendations-on Mucomyst for renal prophylaxis for vascular intervention 3. Hypertension. -Continue antihypertensives 4. Chronic anemia. -H&H stable. Will monitor. 5. Peripheral neuropathy. -Continue pain medications 6. History of PAD with status post amputation 4th,5th left toes and 5th right toe DVT prophylaxis: Lovenox PUD prophylaxis: Protonix Plan: Discharge planning-detention facility versus home health. Weightbearing as tolerated bilaterally with postoperative shoes. Pending Physical therapy. Would also require a walker. CM to follow. Anticoagulation with aspirin and Plavix for indeterminate period. Case discussed with Problems: Cont'd Hospitalization Reason: Peding PT eval Subjective 24 Hr Interval Summary Free Text/Dictation No acute overnight episode.Pending PT eval Exam/Review of Systems Vital Signs Vitals Vital Signs Date Time Temp Pulse Resp B/P Pulse Ox O2 Delivery O2 Flow Rate FiO2 12/05/16 08:13 98.1 59 20 135/67 96 12/02/16 16:10 Nasal Cannula 2.0 Intake and Output 12/04/16 12/04/16 12/05/16 15:00 23:00 07:00 Intake Total 100 ml 760 ml 520 ml Balance 100 ml 760 ml 520 ml Exam General: Well developed,adequately built, not in any acute distress . HEENT: Normocephalic, Atraumatic, No laceration or hematoma; Eyes: PEERL, Conjunctiva clear, Anicteric sclera Neck: Supple without any lymphadenopathy, nontender, no JVD, no carotid bruits, trachea midline, no thyromegaly Cardiac: S1, S2 auscultated, regular rhythm and rate, no mumurs or gallop Pulmonary: Normal respiratory effort. Chest clear to auscultation bilaterally, no adventitious breath sounds GI: Abdomen normal to inspection. Soft, non tender, non- distended, no masses, no rebound tenderness or guarding. Bowel sounds active on all four quadrants Genitourinary: Deferred Extremities: Gangrenous toes bilateral-Status post debridement-covered with dressing/intact,. No cyanosis, clubbing, or edema. Pulses faint bilaterally. Full ROM on all four extremities. No focal weakness appreciated. Neurologic: Alert to person, place, time, and situation. Affect appropriate, intact sensation. Skin: Clean,dry, and intact. No ecchymosis, no rashes, or lesions Results Result Diagram: 12/02/1651212/02/1614 Medications Medications Current Medications Acetaminophen (Tylenol Tab) 650 mg Q6H PRN PO PAIN LEVEL 1-3 OR FEVER; Start at 16:00 Pantoprazole (Protonix Tab) 40 mg DAILY@06 PO Last administered on 12/05/16 05 :20; Admin Dose 40 MG; Start 11/13/16 at 06:00 Aspirin (Halfprin) 81 mg DAILY PO Last administered on 12/05/16 08:06; Admin Dose 81 MG; Start 11/13/16 at 09:00 Diltiazem HCl (Cardizem Cd) 180 mg DAILY PO Last administered on 12/05/16 08: 18; Admin Dose 180 MG; Start 11/13/16 at 09:00 Famotidine (Pepcid) 40 mg HS PO Last administered on 12/04/16 21:10; Admin Dose 40 MG; Start 11/12/16 at 21:00 Folic Acid (Folic Acid) 1 mg DAILY PO Last administered on 12/05/16 08:06; Admin Dose 1 MG; Start 11/13/16 at 09:00 Mycophenolate Mofetil (Cellcept) 1,000 mg BID PO Last administered on 08:06; Admin Dose 1,000 MG; Start 11/12/16 at 21:00 Metoprolol Tartrate (Lopressor) 75 mg BID PO Last administered on 12/04/16 21: 15; Admin Dose 75 MG; Start 11/12/16 at 21:00 Gabapentin 100 mg 100 mg TID PO Last administered on 12/05/16 08:06; Admin Dose 100 MG; Start 11/12/16 at 21:00 Levofloxacin/ Dextrose 100 ml @ 100 mls/hr Q24H IVPB Last administered on 12/04 21:09; Admin Dose 100 MLS/HR; Start 11/13/16 at 20:30 Metronidazole 100 ml @ 100 mls/hr Q8 IVPB Last administered on 12/05/16 05:20 ; Admin Dose 100 MLS/HR; Start 11/14/16 at 16:00 Daptomycin/Sodium Chloride (Cubicin/NS) 100 ml @ 200 mls/hr Q24H IVPB Last administered on 12/04/16 17:46; Admin Dose 200 MLS/HR; Start 11/14/16 at 17:00 Zolpidem Tartrate (Ambien) 5 mg HS PRN PO INSOMNIA; Start 11/15/16 at 23:30 Loperamide HCl (Imodium Cap) 2 mg QID PRN PO DIARRHEA Last administered on 11/17 12:51; Admin Dose 2 MG; Start 11/16/16 at 16:00 Acetaminophen/ Hydrocodone Bitart ([place] (5/325)) 1 tab Q6H PRN PO pain Last administered on 12/05/16 08:25; Admin Dose 1 TAB; Start 11/22/16 at 12:00 Morphine Sulfate (morphine) 2 mg Q4H PRN IV SEVERE PAIN LEVEL 7-10 Last administered on 12/05/16 05:48; Admin Dose 2 MG; Start 11/23/16 at 12:00 Tacrolimus (Prograf) 2 mg Q12 PO Last administered on 12/05/16 08:06; Admin Dose 2 MG; Start 11/24/16 at 10:00 Ondansetron HCl (Zofran Inj) 4 mg Q4H PRN IV NAUSEA AND/OR VOMITING Last administered on 11/30/16 17:21; Admin Dose 4 MG; Start 11/27/16 at 17:30 Hydralazine HCl (Apresoline) 10 mg Q6H PRN IV ELEVATED BLOOD PRESSURE; Start at 21:00 Hydralazine HCl (Apresoline) 20 mg Q6H PRN IV ELEVATED BLOOD PRESSURE Last administered on 11/27/16 21:42; Admin Dose 20 MG; Start 11/27/16 at 21:00 Benazepril HCl (Lotensin) 10 mg DAILY PO Last administered on 12/05/16 08:18; Admin Dose 10 MG; Start 11/30/16 at 09:00 Ondansetron HCl (Zofran Inj) 4 mg Q4H PRN IV NAUSEA AND/OR VOMITING; Start at 15:30 Clopidogrel Bisulfate (plaVIX) 75 mg DAILY PO Last administered on 12/05/16 08 :06; Admin Dose 75 MG; Start 12/04/16 at 09:00 HELEN ANDREWS NP Dec 05, 2016 11:15
--- NOTE | 2016-12-05 14:39 | CONS ---
Date/Time of Note Date/Time of Note DATE: 12/05/16 TIME: 14:39 Assessment/Plan Assessment/Plan Chief Complaint/Hosp Course SUBJECTIVE DATA: No acute changes. The patient is awake, looks comfortable. No fevers. ANTIMICROBIALS: Daptomycin, Flagyl, Levaquin. GENERAL: This is a fragile well-developed elderly woman who is alert in no distress. HEENT: Head atraumatic, normocephalic. Sclerae anicteric. Buccal mucosa pink. NECK: Supple. CHEST: Rise symmetrical. Breath sounds clear. HEART: S1, S2. ABDOMEN: Soft, bowel sounds present. EXTREMITIES: With bilateral necrotic gangrenous toes. Dressing intact. ASSESSMENT: 1. Bilateral foot gangrene. Status post revascularization procedure 2. Hypertension. 3. Diabetes. 4. History of donor transplant in 2009. On immunosuppressive therapy. 5. Anemia. PLAN: The patient remains stable, on appropriate antibiotics, continue present care, vascular/cardiology/renal rec-s. staff Problems: Consultation Date/Type/Reason Admit Date/Time Nov 12, 2016 at 10:06 Initial Consult Date 11/13/16 Type of Consultation: ID Referring Provider: KRISTIN HALL MD Exam/Review of Systems Vital Signs Vitals Vital Signs Date Time Temp Pulse Resp B/P Pulse Ox O2 Delivery O2 Flow Rate FiO2 12/05/16 08:13 98.1 59 20 135/67 96 12/02/16 16:10 Nasal Cannula 2.0 Intake and Output 12/04/16 12/04/16 12/05/16 15:00 23:00 07:00 Intake Total 100 ml 760 ml 520 ml Balance 100 ml 760 ml 520 ml Results Result Diagram: 12/02/16 0513 12/02/16 0514 Medications Medications Current Medications Acetaminophen (Tylenol Tab) 650 mg Q6H PRN PO PAIN LEVEL 1-3 OR FEVER; Start at 16:00 Pantoprazole (Protonix Tab) 40 mg DAILY@06 PO Last administered on 12/05/16 05 :20; Admin Dose 40 MG; Start 11/13/16 at 06:00 Aspirin (Halfprin) 81 mg DAILY PO Last administered on 12/05/16 08:06; Admin Dose 81 MG; Start 11/13/16 at 09:00 Diltiazem HCl (Cardizem Cd) 180 mg DAILY PO Last administered on 12/05/16 08: 18; Admin Dose 180 MG; Start 11/13/16 at 09:00 Famotidine (Pepcid) 40 mg HS PO Last administered on 12/04/16 21:10; Admin Dose 40 MG; Start 11/12/16 at 21:00 Folic Acid (Folic Acid) 1 mg DAILY PO Last administered on 12/05/16 08:06; Admin Dose 1 MG; Start 11/13/16 at 09:00 Mycophenolate Mofetil (Cellcept) 1,000 mg BID PO Last administered on 08:06; Admin Dose 1,000 MG; Start 11/12/16 at 21:00 Metoprolol Tartrate (Lopressor) 75 mg BID PO Last administered on 12/04/16 21: 15; Admin Dose 75 MG; Start 11/12/16 at 21:00 Gabapentin 100 mg 100 mg TID PO Last administered on 12/05/16 13:35; Admin Dose 100 MG; Start 11/12/16 at 21:00 Levofloxacin/ Dextrose 100 ml @ 100 mls/hr Q24H IVPB Last administered on 12/04 21:09; Admin Dose 100 MLS/HR; Start 11/13/16 at 20:30 Metronidazole 100 ml @ 100 mls/hr Q8 IVPB Last administered on 12/05/16 13:35 ; Admin Dose 100 MLS/HR; Start 11/14/16 at 16:00 Daptomycin/Sodium Chloride (Cubicin/NS) 100 ml @ 200 mls/hr Q24H IVPB Last administered on 12/04/16 17:46; Admin Dose 200 MLS/HR; Start 11/14/16 at 17:00 Zolpidem Tartrate (Ambien) 5 mg HS PRN PO INSOMNIA; Start 11/15/16 at 23:30 Loperamide HCl (Imodium Cap) 2 mg QID PRN PO DIARRHEA Last administered on 11/17 12:51; Admin Dose 2 MG; Start 11/16/16 at 16:00 Acetaminophen/ Hydrocodone Bitart ([place] (5/325)) 1 tab Q6H PRN PO pain Last administered on 12/05/16 08:25; Admin Dose 1 TAB; Start 11/22/16 at 12:00 Morphine Sulfate (morphine) 2 mg Q4H PRN IV SEVERE PAIN LEVEL 7-10 Last administered on 12/05/16 05:48; Admin Dose 2 MG; Start 11/23/16 at 12:00 Tacrolimus (Prograf) 2 mg Q12 PO Last administered on 12/05/16 08:06; Admin Dose 2 MG; Start 11/24/16 at 10:00 Ondansetron HCl (Zofran Inj) 4 mg Q4H PRN IV NAUSEA AND/OR VOMITING Last administered on 11/30/16 17:21; Admin Dose 4 MG; Start 11/27/16 at 17:30 Hydralazine HCl (Apresoline) 10 mg Q6H PRN IV ELEVATED BLOOD PRESSURE; Start at 21:00 Hydralazine HCl (Apresoline) 20 mg Q6H PRN IV ELEVATED BLOOD PRESSURE Last administered on 11/27/16 21:42; Admin Dose 20 MG; Start 11/27/16 at 21:00 Benazepril HCl (Lotensin) 10 mg DAILY PO Last administered on 12/05/16 08:18; Admin Dose 10 MG; Start 11/30/16 at 09:00 Ondansetron HCl (Zofran Inj) 4 mg Q4H PRN IV NAUSEA AND/OR VOMITING; Start at 15:30 Clopidogrel Bisulfate (plaVIX) 75 mg DAILY PO Last administered on 12/05/16 08 :06; Admin Dose 75 MG; Start 12/04/16 at 09:00 JACQUES HUERTA NP Dec 05, 2016 14:39
--- NOTE | 2016-12-05 15:05 | PN ---
Date/Time of Note Date/Time of Note DATE: 12/05/16 TIME: 15:02 Assessment/Plan Lines/Catheters IV C[facility]ter Type (from [facility]): Saline Lock [place] in Place (from [facility]): No Assessment/Plan Chief Complaint/Hosp Course -Bilateral lower extremity atherosclerosis with bilateral foot gangrene: It seems that the patient's has progression of her significant infrainguinal atherosclerotic disease and upon CT angiography there is extensive infrainguinal disease bilaterally and will require intervention. Unfortunately she has no vein conduit to perform limb salvage revascularization and being chronically immunosuppressed secondary to her kidney transplant limits performing bypass with upper extremity vein graft. Therefore, staged procedures with endovascular interventions with anesthesia was performed -S/P Advanced RLE Endovascular intervention -S/P Advanced LLE Endovascular intervention -Appreciate Nephrology evaluation -Optimize vascular status (BP medications, diet, nutrition and exercise, sugar control, antiplatelets). -Podiatry colleagues are involved with the local wound care , will plan for application of amniotic tissue to expedite wound healing -Appreciate Cardiology evaluation -Discussed findings, plan and management with the patient with a certified mold sprayer and she understands that there is great concern as she has critical limb ischemia of both legs and limb salvage may be challenging for her and possibility of a major amputation in there -Thank you for allowing us to partake in the care of your patient. Please call with any questions. Problems: Subjective 24 Hr Interval Summary no new vascular events overnight Exam/Review of Systems Vital Signs Vitals Vital Signs Date Time Temp Pulse Resp B/P Pulse Ox O2 Delivery O2 Flow Rate FiO2 12/05/16 08:13 98.1 59 20 135/67 96 12/02/16 16:10 Nasal Cannula 2.0 Intake and Output 12/04/16 12/04/16 12/05/16 15:00 23:00 07:00 Intake Total 100 ml 760 ml 520 ml Balance 100 ml 760 ml 520 ml Exam Free Text/Dictation Alert and oriented x3. LUNGS: Clear to auscultation bilaterally CARDIOVASCULAR: S1 and S2 present. ABDOMEN: Soft, nontender and nondistended. Bowel sounds positive. Surgical scar well healed. EXTREMITIES: Right lower extremity faint femoral pulse. Nonpalpable pedal pulse. Motor and sensory intact. Capillary refill 4 seconds. fifth toe amputation stump site clean Left lower extremity faint femoral pulse. Nonpalpable pedal pulse. Motor and sensory intact. Capillary refill 4 seconds. First toe with gangrene. Fourth and fifth toe amputation stump wound clean. Results Result Diagram: 12/02/16 0513 12/02/16 0514 WILD DUARTE MD Dec 05, 2016 15:05
[2016-12-05 15:31] VITALS: BP 117/62; RESP 18
--- NOTE | 2016-12-05 16:48 | CONS ---
Date/Time of Note Date/Time of Note DATE: 12/05/16 TIME: 16:46 Assessment/Plan Assessment/Plan Additional Assessment/Plan ASSESSMENT: 1. 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 h/o donor kidney transplant in 2009 at [facility], currently on immunosuppression with Prograf, CellCept 4. 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 History of hypertension. 6. History of diabetes mellitus. 7. History of previous left upper extremity arteriovenous fistula. 8. Mild Metabolic acidosis, 9. Electrolyte imbalance- Hypercalcemia- resolved ,Hypokalemia- resolved, Hypomagnesemia- resolved Plan: IV abx as per Infectious disease service daptomycin s/p LE angiogram, cr stable, no IVF< no mucomyst needed Continue current immunosuppresion with prograf,cellcept, no prednisone due to hypercalcemia will continue to follow up Consultation Date/Type/Reason Admit Date/Time Nov 12, 2016 at 10:06 Initial Consult Date 11/12/16 Type of Consultation: NEPHROLOGY Referring Provider: KRISTIN HALL MD Exam/Review of Systems Vital Signs Vitals Vital Signs Date Time Temp Pulse Resp B/P Pulse Ox O2 Delivery O2 Flow Rate FiO2 12/05/16 15:31 98.2 72 18 117/62 100 12/02/16 16:10 Nasal Cannula 2.0 Intake and Output 12/04/16 12/04/16 12/05/16 15:00 23:00 07:00 Intake Total 100 ml 760 ml 520 ml Balance 100 ml 760 ml 520 ml Exam HEENT: Unremarkable -- NECK: Supple, trachea midline. CHEST: Rise symmetrical, without dyspnea on observation HEART: Pulse RRR ABDOMEN: Soft, benign EXTREMITIES: Warm -- gangrenous toes Results Result Diagram: 12/02/16 0513 12/02/16 0514 Medications Medications Current Medications Acetaminophen (Tylenol Tab) 650 mg Q6H PRN PO PAIN LEVEL 1-3 OR FEVER; Start at 16:00 Pantoprazole (Protonix Tab) 40 mg DAILY@06 PO Last administered on 12/05/16t 05 :20; Admin Dose 40 MG; Start 11/13/16 at 06:00 Aspirin (Halfprin) 81 mg DAILY PO Last administered on 12/05/16 08:06; Admin Dose 81 MG; Start 11/13/16 at 09:00 Diltiazem HCl (Cardizem Cd) 180 mg DAILY PO Last administered on 12/05/16 08: 18; Admin Dose 180 MG; Start 11/13/16 at 09:00 Famotidine (Pepcid) 40 mg HS PO Last administered on 12/04/16 21:10; Admin Dose 40 MG; Start 11/12/16 at 21:00 Folic Acid (Folic Acid) 1 mg DAILY PO Last administered on 12/05/16 08:06; Admin Dose 1 MG; Start 11/13/16 at 09:00 Mycophenolate Mofetil (Cellcept) 1,000 mg BID PO Last administered on 08:06; Admin Dose 1,000 MG; Start 11/12/16 at 21:00 Metoprolol Tartrate (Lopressor) 75 mg BID PO Last administered on 12/04/16 21: 15; Admin Dose 75 MG; Start 11/12/16 at 21:00 Gabapentin 100 mg 100 mg TID PO Last administered on 12/05/16 13:35; Admin Dose 100 MG; Start 11/12/16 at 21:00 Levofloxacin/ Dextrose 100 ml @ 100 mls/hr Q24H IVPB Last administered on 12/04 21:09; Admin Dose 100 MLS/HR; Start 11/13/16 at 20:30 Metronidazole 100 ml @ 100 mls/hr Q8 IVPB Last administered on 12/05/16 13:35 ; Admin Dose 100 MLS/HR; Start 11/14/16 at 16:00 Daptomycin/Sodium Chloride (Cubicin/NS) 100 ml @ 200 mls/hr Q24H IVPB Last administered on 12/04/16 17:46; Admin Dose 200 MLS/HR; Start 11/14/16 at 17:00 Zolpidem Tartrate (Ambien) 5 mg HS PRN PO INSOMNIA; Start 11/15/16 at 23:30 Loperamide HCl (Imodium Cap) 2 mg QID PRN PO DIARRHEA Last administered on 11/17 12:51; Admin Dose 2 MG; Start 11/16/16 at 16:00 Acetaminophen/ Hydrocodone Bitart ([place] (5/325)) 1 tab Q6H PRN PO pain Last administered on 12/05/16 08:25; Admin Dose 1 TAB; Start 11/22/16 at 12:00 Morphine Sulfate (morphine) 2 mg Q4H PRN IV SEVERE PAIN LEVEL 7-10 Last administered on 12/05/16 05:48; Admin Dose 2 MG; Start 11/23/16 at 12:00 Tacrolimus (Prograf) 2 mg Q12 PO Last administered on 12/05/16 08:06; Admin Dose 2 MG; Start 11/24/16 at 10:00 Ondansetron HCl (Zofran Inj) 4 mg Q4H PRN IV NAUSEA AND/OR VOMITING Last administered on 11/30/16 17:21; Admin Dose 4 MG; Start 11/27/16 at 17:30 Hydralazine HCl (Apresoline) 10 mg Q6H PRN IV ELEVATED BLOOD PRESSURE; Start at 21:00 Hydralazine HCl (Apresoline) 20 mg Q6H PRN IV ELEVATED BLOOD PRESSURE Last administered on 11/27/16 21:42; Admin Dose 20 MG; Start 11/27/16 at 21:00 Benazepril HCl (Lotensin) 10 mg DAILY PO Last administered on 12/05/16 08:18; Admin Dose 10 MG; Start 11/30/16 at 09:00 Ondansetron HCl (Zofran Inj) 4 mg Q4H PRN IV NAUSEA AND/OR VOMITING; Start at 15:30 Clopidogrel Bisulfate (plaVIX) 75 mg DAILY PO Last administered on 12/05/16 08 :06; Admin Dose 75 MG; Start 12/04/16 at 09:00 RAMON KEMP MD Dec 05, 2016 16:48
[2016-12-05] MEDS: DAPTOMYCIN IVPB SCH (17:44)
[2016-12-05] MEDS: SOD CHLORIDE 0.9% IVPB SCH (17:44)
[2016-12-05 20:36] VITALS: BP 122/69; RESP 21
[2016-12-05] MEDS: LEVOFLOXACIN 500MG/D5W (PMX) 100 ML IVPB SCH (20:40)
[2016-12-05] MEDS: FAMOTIDINE 20 MG TAB PO SCH (20:41)
[2016-12-06 03:17] VITALS: BP 120/76; RESP 21
[2016-12-06] MEDS: PANTOPRAZOLE (EC) 40 MG TAB PO SCH (04:04)
[2016-12-06] MEDS: morphine 2 MG INJ IV PRN ×2 (04:04→20:37)
[2016-12-06] MEDS: metroNIDAZOLE 500 MG/NS (PMX) 100 ML IVPB SCH ×3 (04:04→23:29)
[2016-12-06 07:50] VITALS: BP 130/70; RESP 18
[2016-12-06] MEDS: GABAPENTIN 100 MG CAP PO SCH ×3 (08:50→20:36)
[2016-12-06] MEDS: TACROLIMUS 0.5 MG CAP PO SCH ×2 (08:50→20:37)
[2016-12-06] MEDS: MYCOPHENOLATE 250 MG CAP PO SCH ×2 (08:50→20:36)
[2016-12-06] MEDS: METOPROLOL 25 MG TAB PO SCH ×2 (08:51→20:36)
[2016-12-06] MEDS: BENAZEPRIL 10 MG TAB PO SCH (08:52)
[2016-12-06] MEDS: ASPIRIN (EC) 81 MG TAB PO SCH (08:52)
[2016-12-06] MEDS: CLOPIDOGREL 75 MG TAB PO SCH (08:52)
[2016-12-06] MEDS: DILTIAZEM (CD) 180 MG CAP PO SCH (08:53)
[2016-12-06] MEDS: FOLIC ACID 1 MG TAB PO SCH (08:53)
[2016-12-06] MEDS: HYDROCODONE/APAP (5/325) TAB PO PRN (09:04)
--- NOTE | 2016-12-06 10:08 | PN ---
Date/Time of Note Date/Time of Note DATE: 12/06/16 TIME: 10:08 Assessment/Plan VTE Prophylaxis VTE Prophylaxis Intervention: LMWH Lines/Catheters IV [facility]ter Type [facility]from [facility] Urinary Cath still in place: No Assessment/Plan Chief Complaint/Hosp Course 1.Significant peripheral vascular disease with bilateral foot necrotic open wound with exposed bone and critical limb ischemia . Status post staged vascular interventions. -Status post RIGHT FEM-POP ATHERECTOMY, STENTING AND ANGIOPLASTY 11/27/2016 -status post LEFT FEMPOP ATHERECTOMY, BALLOON ANGIOPLASTY AND STENTING 2016 -Status post Excisional debridement of open necrotic wound of the right and left foot 11/30/16- Plan for another wound debridement with possible wound vacuum placement and plan for application of amniotic tissue to expedite wound healing scheduled for today. -On ASA,Plavix -Weightbearing as tolerated bilaterally with postoperative shoes with physical therapy 2.Status post kidney transplant: - on immunosuppression with Prograf, CellCept -Nephrology on board and will follow recommendations-on Mucomyst for renal prophylaxis for vascular intervention 3. Hypertension. -Continue antihypertensives 4. Chronic anemia. -H&H stable. Will monitor. 5. Peripheral neuropathy. -Continue pain medications 6. History of PAD with status post amputation 4th,5th left toes and 5th right toe DVT prophylaxis: Lovenox PUD prophylaxis: Protonix Plan: Follow-up with vascular recommendation after debridement. Disposition: Discharge planning-[place] [facility] versus home health. Weightbearing as tolerated bilaterally with postoperative shoes. Would also require a walker. CM to follow. Anticoagulation with aspirin and Plavix for indeterminate period. Case discussed with Problems: Subjective 24 Hr Interval Summary Free Text/Dictation No acute overnight episodes. Exam/Review of Systems Vital Signs Vitals Vital Signs Date Time Temp Pulse Resp B/P Pulse Ox O2 Delivery O2 Flow Rate FiO2 12/06/16 07:50 98.7 74 18 130/70 100 12/02/16 16:10 Nasal Cannula 2.0 Intake and Output 12/05/16 12/05/16 12/06/16 15:00 23:00 07:00 Intake Total 100 ml 1440 ml 1220 ml Output Total 750 ml 900 ml Balance 100 ml 690 ml 320 ml Exam General: Well developed,adequately built, not in any acute distress . HEENT: Normocephalic, Atraumatic, No laceration or hematoma; Eyes: PEERL, Conjunctiva clear, Anicteric sclera Neck: Supple without any lymphadenopathy, nontender, no JVD, no carotid bruits, trachea midline, no thyromegaly Cardiac: S1, S2 auscultated, regular rhythm and rate, no mumurs or gallop Pulmonary: Normal respiratory effort. Chest clear to auscultation bilaterally, no adventitious breath sounds GI: Abdomen normal to inspection. Soft, non tender, non- distended, no masses, no rebound tenderness or guarding. Bowel sounds active on all four quadrants Genitourinary: Deferred Extremities: Gangrenous toes bilateral-Status post debridement-covered with dressing/intact,. No cyanosis, clubbing, or edema. Pulses faint bilaterally. Full ROM on all four extremities. No focal weakness appreciated. Neurologic: Alert to person, place, time, and situation. Affect appropriate, intact sensation. Skin: Clean,dry, and intact. No ecchymosis, no rashes, or lesions Results Result Diagram: 12/02/1651212/02/1614 Medications Medications Current Medications Acetaminophen (Tylenol Tab) 650 mg Q6H PRN PO PAIN LEVEL 1-3 OR FEVER; Start at 16:00 Pantoprazole (Protonix Tab) 40 mg DAILY@06 PO Last administered on 12/06/16 04 :04; Admin Dose 40 MG; Start 11/13/16 at 06:00 Aspirin (Halfprin) 81 mg DAILY PO Last administered on 12/06/16 08:52; Admin Dose 81 MG; Start 11/13/16 at 09:00 Diltiazem HCl (Cardizem Cd) 180 mg DAILY PO Last administered on 12/06/16 08: 53; Admin Dose 180 MG; Start 11/13/16 at 09:00 Famotidine (Pepcid) 40 mg HS PO Last administered on 12/05/16 20:41; Admin Dose 40 MG; Start 11/12/16 at 21:00 Folic Acid (Folic Acid) 1 mg DAILY PO Last administered on 12/06/16 08:53; Admin Dose 1 MG; Start 11/13/16 at 09:00 Mycophenolate Mofetil (Cellcept) 1,000 mg BID PO Last administered on 08:50; Admin Dose 1,000 MG; Start 11/12/16 at 21:00 Metoprolol Tartrate (Lopressor) 75 mg BID PO Last administered on 12/06/16 08: 51; Admin Dose 75 MG; Start 11/12/16 at 21:00 Gabapentin 100 mg 100 mg TID PO Last administered on 12/06/16 08:50; Admin Dose 100 MG; Start 11/12/16 at 21:00 Levofloxacin/ Dextrose 100 ml @ 100 mls/hr Q24H IVPB Last administered on 12/05 20:40; Admin Dose 100 MLS/HR; Start 11/13/16 at 20:30 Metronidazole 100 ml @ 100 mls/hr Q8 IVPB Last administered on 12/06/16 04:04 ; Admin Dose 100 MLS/HR; Start 11/14/16 at 16:00 Daptomycin/Sodium Chloride (Cubicin/NS) 100 ml @ 200 mls/hr Q24H IVPB Last administered on 12/05/16 17:44; Admin Dose 200 MLS/HR; Start 11/14/16 at 17:00 Zolpidem Tartrate (Ambien) 5 mg HS PRN PO INSOMNIA; Start 11/15/16 at 23:30 Loperamide HCl (Imodium Cap) 2 mg QID PRN PO DIARRHEA Last administered on 11/17 12:51; Admin Dose 2 MG; Start 11/16/16 at 16:00 Acetaminophen/ Hydrocodone Bitart ([place] (5/325)) 1 tab Q6H PRN PO pain Last administered on 12/06/16 09:04; Admin Dose 1 TAB; Start 11/22/16 at 12:00 Morphine Sulfate (morphine) 2 mg Q4H PRN IV SEVERE PAIN LEVEL 7-10 Last administered on 12/06/16 04:04; Admin Dose 2 MG; Start 11/23/16 at 12:00 Tacrolimus (Prograf) 2 mg Q12 PO Last administered on 12/06/16 08:50; Admin Dose 2 MG; Start 11/24/16 at 10:00 Ondansetron HCl (Zofran Inj) 4 mg Q4H PRN IV NAUSEA AND/OR VOMITING Last administered on 11/30/16 17:21; Admin Dose 4 MG; Start 11/27/16 at 17:30 Hydralazine HCl (Apresoline) 10 mg Q6H PRN IV ELEVATED BLOOD PRESSURE; Start at 21:00 Hydralazine HCl (Apresoline) 20 mg Q6H PRN IV ELEVATED BLOOD PRESSURE Last administered on 11/27/16 21:42; Admin Dose 20 MG; Start 11/27/16 at 21:00 Benazepril HCl (Lotensin) 10 mg DAILY PO Last administered on 12/06/16 08:52; Admin Dose 10 MG; Start 11/30/16 at 09:00 Ondansetron HCl (Zofran Inj) 4 mg Q4H PRN IV NAUSEA AND/OR VOMITING; Start at 15:30 Clopidogrel Bisulfate (plaVIX) 75 mg DAILY PO Last administered on 12/06/16 08 :52; Admin Dose 75 MG; Start 12/04/16 at 09:00 HELEN ANDREWS NP Dec 06, 2016 10:08
--- NOTE | 2016-12-06 12:58 | CONS ---
Date/Time of Note Date/Time of Note DATE: 12/06/16 TIME: 12:57 Assessment/Plan Assessment/Plan Additional Assessment/Plan 1. Pre-op for LE vascular procedure. Nl EF and no ischemia by lexiscan 11/13 only scar- per Dr. Powell, Mod - Ok for surgery, moderate risk. NO CP now. Surgical team follows. Post stenting of LE artery - tolerated well - vascular team follows. Con't wound care. STABLE. 2.HTN-uncontrolled - con't to adjust Rx - will monitor - BETTER NOW 3,CAD - no CP now, no ischemi patrick Stress test 11/13 - no Cp noted - OK TO PROCEDURE, moderate risk. Tolerated procedure well. NO CP now. 4.PAD with nonhealing LE wounds - vascular to follow, wound care in place 5. -moderate by ECHo.- no intervention planned now - stable by exam - KEEP euvolemic. Consultation Date/Type/Reason Admit Date/Time Nov 12, 2016 at 10:06 Initial Consult Date 11/13/16 Type of Consultation: NEPHROLOGY Referring Provider: KRISTIN HALL MD 24 HR Interval Summary Free Text/Dictation NO acute events - BP in good range - no CP - ROS: No fever, no chills, no nausea, no vomiting, no diarrhea/constipation No recent weight changes No chest pain, no PND, no orthopnea No dizziness, blurred vision No thirst, no heat or cold intolerance Exam/Review of Systems Vital Signs Vitals Vital Signs Date Time Temp Pulse Resp B/P Pulse Ox O2 Delivery O2 Flow Rate FiO2 12/06/16 07:50 98.7 74 18 130/70 100 12/02/16 16:10 Nasal Cannula 2.0 Intake and Output 12/05/16 12/05/16 12/06/16 15:00 23:00 07:00 Intake Total 100 ml 1440 ml 1220 ml Output Total 750 ml 900 ml Balance 100 ml 690 ml 320 ml Exam General: WN/WD/NAD, AOx 3 HEENT: Unicetric/atraumatic/EOMI (follow commands) NECK: JVD elevated, no thyromegaly Lymph: no lymphadenopathy HEART: regular with no S3, II/ systolic murmur at apex and 2/6 at base LUNGS: Coarse sounds ABD: soft, NT, ND, +BS : Intact Neuro: non focal SKIN: chronic changes EXT: pad Results Result Diagram: 12/02/1651212/02/16513 Medications Medications Current Medications Acetaminophen (Tylenol Tab) 650 mg Q6H PRN PO PAIN LEVEL 1-3 OR FEVER; Start at 16:00 Pantoprazole (Protonix Tab) 40 mg DAILY@06 PO Last administered on 12/06/16 04 :04; Admin Dose 40 MG; Start 11/13/16 at 06:00 Aspirin (Halfprin) 81 mg DAILY PO Last administered on 12/06/16 08:52; Admin Dose 81 MG; Start 11/13/16 at 09:00 Diltiazem HCl (Cardizem Cd) 180 mg DAILY PO Last administered on 12/06/16 08: 53; Admin Dose 180 MG; Start 11/13/16 at 09:00 Famotidine (Pepcid) 40 mg HS PO Last administered on 12/05/16 20:41; Admin Dose 40 MG; Start 11/12/16 at 21:00 Folic Acid (Folic Acid) 1 mg DAILY PO Last administered on 12/06/16 08:53; Admin Dose 1 MG; Start 11/13/16 at 09:00 Mycophenolate Mofetil (Cellcept) 1,000 mg BID PO Last administered on 08:50; Admin Dose 1,000 MG; Start 11/12/16 at 21:00 Metoprolol Tartrate (Lopressor) 75 mg BID PO Last administered on 12/06/16 08: 51; Admin Dose 75 MG; Start 11/12/16 at 21:00 Gabapentin 100 mg 100 mg TID PO Last administered on 12/06/16 12:33; Admin Dose 100 MG; Start 11/12/16 at 21:00 Levofloxacin/ Dextrose 100 ml @ 100 mls/hr Q24H IVPB Last administered on 12/05 20:40; Admin Dose 100 MLS/HR; Start 11/13/16 at 20:30 Metronidazole 100 ml @ 100 mls/hr Q8 IVPB Last administered on 12/06/16 12:33 ; Admin Dose 100 MLS/HR; Start 11/14/16 at 16:00 Daptomycin/Sodium Chloride (Cubicin/NS) 100 ml @ 200 mls/hr Q24H IVPB Last administered on 12/05/16 17:44; Admin Dose 200 MLS/HR; Start 11/14/16 at 17:00 Zolpidem Tartrate (Ambien) 5 mg HS PRN PO INSOMNIA; Start 11/15/16 at 23:30 Loperamide HCl (Imodium Cap) 2 mg QID PRN PO DIARRHEA Last administered on 11/17 12:51; Admin Dose 2 MG; Start 11/16/16 at 16:00 Acetaminophen/ Hydrocodone Bitart ([place] (5/325)) 1 tab Q6H PRN PO pain Last administered on 12/06/16 09:04; Admin Dose 1 TAB; Start 11/22/16 at 12:00 Morphine Sulfate (morphine) 2 mg Q4H PRN IV SEVERE PAIN LEVEL 7-10 Last administered on 12/06/16 04:04; Admin Dose 2 MG; Start 11/23/16 at 12:00 Tacrolimus (Prograf) 2 mg Q12 PO Last administered on 12/06/16 08:50; Admin Dose 2 MG; Start 11/24/16 at 10:00 Ondansetron HCl (Zofran Inj) 4 mg Q4H PRN IV NAUSEA AND/OR VOMITING Last administered on 11/30/16 17:21; Admin Dose 4 MG; Start 11/27/16 at 17:30 Hydralazine HCl (Apresoline) 10 mg Q6H PRN IV ELEVATED BLOOD PRESSURE; Start at 21:00 Hydralazine HCl (Apresoline) 20 mg Q6H PRN IV ELEVATED BLOOD PRESSURE Last administered on 11/27/16 21:42; Admin Dose 20 MG; Start 11/27/16 at 21:00 Benazepril HCl (Lotensin) 10 mg DAILY PO Last administered on 12/06/16 08:52; Admin Dose 10 MG; Start 11/30/16 at 09:00 Ondansetron HCl (Zofran Inj) 4 mg Q4H PRN IV NAUSEA AND/OR VOMITING; Start at 15:30 Clopidogrel Bisulfate (plaVIX) 75 mg DAILY PO Last administered on 12/06/16 08 :52; Admin Dose 75 MG; Start 12/04/16 at 09:00 MIRELLA MOSER MD Dec 06, 2016 12:58
--- NOTE | 2016-12-06 13:14 | CONS ---
Date/Time of Note Date/Time of Note DATE: 12/06/16 TIME: 13:13 Assessment/Plan Assessment/Plan Additional Assessment/Plan 1. 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 h/o donor kidney transplant in 2009 at [facility], currently on immunosuppression with Prograf, CellCept 4. 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 History of hypertension. 6. History of diabetes mellitus. 7. History of previous left upper extremity arteriovenous fistula. 8. Mild Metabolic acidosis, 9. Electrolyte imbalance- Hypercalcemia- resolved ,Hypokalemia- resolved, Hypomagnesemia- resolved Plan: IV abx as per Infectious disease service daptomycin s/p LE angiogram, cr stable, no IVF< no mucomyst needed Continue current immunosuppresion with prograf,cellcept, no prednisone due to hypercalcemia will continue to follow up ok to d/c from renal point of view, follow up with me in clinic in 2 weeks Consultation Date/Type/Reason Admit Date/Time Nov 12, 2016 at 10:06 Initial Consult Date 11/12/16 Type of Consultation: NEPHROLOGY Referring Provider: KRISTIN HALL MD 24 HR Interval Summary Free Text/Dictation doing ok, cr normal , makign good urine Exam/Review of Systems Vital Signs Vitals Vital Signs Date Time Temp Pulse Resp B/P Pulse Ox O2 Delivery O2 Flow Rate FiO2 12/06/16 07:50 98.7 74 18 130/70 100 12/02/16 16:10 Nasal Cannula 2.0 Intake and Output 12/05/16 12/05/16 12/06/16 15:00 23:00 07:00 Intake Total 100 ml 1440 ml 1220 ml Output Total 750 ml 900 ml Balance 100 ml 690 ml 320 ml Exam HEENT: Unremarkable -- NECK: Supple, trachea midline. CHEST: Rise symmetrical, without dyspnea on observation HEART: Pulse RRR ABDOMEN: Soft, benign EXTREMITIES: Warm -- gangrenous toes Results Result Diagram: 12/02/16 0513 12/02/16 0514 Medications Medications Current Medications Acetaminophen (Tylenol Tab) 650 mg Q6H PRN PO PAIN LEVEL 1-3 OR FEVER; Start at 16:00 Pantoprazole (Protonix Tab) 40 mg DAILY@06 PO Last administered on 12/06/16 04 :04; Admin Dose 40 MG; Start 11/13/16 at 06:00 Aspirin (Halfprin) 81 mg DAILY PO Last administered on 12/06/16 08:52; Admin Dose 81 MG; Start 11/13/16 at 09:00 Diltiazem HCl (Cardizem Cd) 180 mg DAILY PO Last administered on 12/06/16 08: 53; Admin Dose 180 MG; Start 11/13/16 at 09:00 Famotidine (Pepcid) 40 mg HS PO Last administered on 12/05/16 20:41; Admin Dose 40 MG; Start 11/12/16 at 21:00 Folic Acid (Folic Acid) 1 mg DAILY PO Last administered on 12/06/16 08:53; Admin Dose 1 MG; Start 11/13/16 at 09:00 Mycophenolate Mofetil (Cellcept) 1,000 mg BID PO Last administered on 08:50; Admin Dose 1,000 MG; Start 11/12/16 at 21:00 Metoprolol Tartrate (Lopressor) 75 mg BID PO Last administered on 12/06/16 08: 51; Admin Dose 75 MG; Start 11/12/16 at 21:00 Gabapentin 100 mg 100 mg TID PO Last administered on 12/06/16 12:33; Admin Dose 100 MG; Start 11/12/16 at 21:00 Levofloxacin/ Dextrose 100 ml @ 100 mls/hr Q24H IVPB Last administered on 12/05 20:40; Admin Dose 100 MLS/HR; Start 11/13/16 at 20:30 Metronidazole 100 ml @ 100 mls/hr Q8 IVPB Last administered on 12/06/16 12:33 ; Admin Dose 100 MLS/HR; Start 11/14/16 at 16:00 Daptomycin/Sodium Chloride (Cubicin/NS) 100 ml @ 200 mls/hr Q24H IVPB Last administered on 12/05/16 17:44; Admin Dose 200 MLS/HR; Start 11/14/16 at 17:00 Zolpidem Tartrate (Ambien) 5 mg HS PRN PO INSOMNIA; Start 11/15/16 at 23:30 Loperamide HCl (Imodium Cap) 2 mg QID PRN PO DIARRHEA Last administered on 11/17 12:51; Admin Dose 2 MG; Start 11/16/16 at 16:00 Acetaminophen/ Hydrocodone Bitart ([place] (5/325)) 1 tab Q6H PRN PO pain Last administered on 12/06/16 09:04; Admin Dose 1 TAB; Start 11/22/16 at 12:00 Morphine Sulfate (morphine) 2 mg Q4H PRN IV SEVERE PAIN LEVEL 7-10 Last administered on 12/06/16 04:04; Admin Dose 2 MG; Start 11/23/16 at 12:00 Tacrolimus (Prograf) 2 mg Q12 PO Last administered on 12/06/16 08:50; Admin Dose 2 MG; Start 11/24/16 at 10:00 Ondansetron HCl (Zofran Inj) 4 mg Q4H PRN IV NAUSEA AND/OR VOMITING Last administered on 11/30/16 17:21; Admin Dose 4 MG; Start 11/27/16 at 17:30 Hydralazine HCl (Apresoline) 10 mg Q6H PRN IV ELEVATED BLOOD PRESSURE; Start at 21:00 Hydralazine HCl (Apresoline) 20 mg Q6H PRN IV ELEVATED BLOOD PRESSURE Last administered on 11/27/16 21:42; Admin Dose 20 MG; Start 11/27/16 at 21:00 Benazepril HCl (Lotensin) 10 mg DAILY PO Last administered on 12/06/16 08:52; Admin Dose 10 MG; Start 11/30/16 at 09:00 Ondansetron HCl (Zofran Inj) 4 mg Q4H PRN IV NAUSEA AND/OR VOMITING; Start at 15:30 Clopidogrel Bisulfate (plaVIX) 75 mg DAILY PO Last administered on 12/06/16 08 :52; Admin Dose 75 MG; Start 12/04/16 at 09:00 RAMON KEMP MD Dec 06, 2016 13:14
--- NOTE | 2016-12-06 14:25 | CONS ---
Date/Time of Note Date/Time of Note DATE: 12/06/16 TIME: 14:25 Assessment/Plan Assessment/Plan Chief Complaint/Hosp Course SUBJECTIVE DATA: No acute changes. The patient is awake, looks comfortable. No fevers. ANTIMICROBIALS: Daptomycin, Flagyl, Levaquin. GENERAL: This is a fragile well-developed elderly woman who is alert in no distress. HEENT: Head atraumatic, normocephalic. Sclerae anicteric. Buccal mucosa pink. NECK: Supple. CHEST: Rise symmetrical. Breath sounds clear. HEART: S1, S2. ABDOMEN: Soft, bowel sounds present. EXTREMITIES: With bilateral necrotic gangrenous toes. Dressing intact. ASSESSMENT: 1. Bilateral foot gangrene. Status post revascularization procedure 2. Hypertension. 3. Diabetes. 4. History of donor transplant in 2009. On immunosuppressive therapy. 5. Anemia. PLAN: The patient remains stable, on appropriate antibiotics, continue present care, follow vascular/cardiology/renal rec-s. staff Problems: Consultation Date/Type/Reason Admit Date/Time Nov 12, 2016 at 10:06 Initial Consult Date 11/13/16 Type of Consultation: ID Referring Provider: KRISTIN HALL MD Exam/Review of Systems Vital Signs Vitals Vital Signs Date Time Temp Pulse Resp B/P Pulse Ox O2 Delivery O2 Flow Rate FiO2 12/06/16 07:50 98.7 74 18 130/70 100 12/02/16 16:10 Nasal Cannula 2.0 Intake and Output 12/05/16 12/05/16 12/06/16 14:59 22:59 06:59 Intake Total 100 ml 1440 ml 1220 ml Output Total 750 ml 900 ml Balance 100 ml 690 ml 320 ml Results Result Diagram: 12/02/16 0513 12/02/16 0514 Medications Medications Current Medications Acetaminophen (Tylenol Tab) 650 mg Q6H PRN PO PAIN LEVEL 1-3 OR FEVER; Start at 16:00 Pantoprazole (Protonix Tab) 40 mg DAILY@06 PO Last administered on 12/06/16 04 :04; Admin Dose 40 MG; Start 11/13/16 at 06:00 Aspirin (Halfprin) 81 mg DAILY PO Last administered on 12/06/16 08:52; Admin Dose 81 MG; Start 11/13/16 at 09:00 Diltiazem HCl (Cardizem Cd) 180 mg DAILY PO Last administered on 12/06/16 08: 53; Admin Dose 180 MG; Start 11/13/16 at 09:00 Famotidine (Pepcid) 40 mg HS PO Last administered on 12/05/16 20:41; Admin Dose 40 MG; Start 11/12/16 at 21:00 Folic Acid (Folic Acid) 1 mg DAILY PO Last administered on 12/06/16 08:53; Admin Dose 1 MG; Start 11/13/16 at 09:00 Mycophenolate Mofetil (Cellcept) 1,000 mg BID PO Last administered on 08:50; Admin Dose 1,000 MG; Start 11/12/16 at 21:00 Metoprolol Tartrate (Lopressor) 75 mg BID PO Last administered on 12/06/16 08: 51; Admin Dose 75 MG; Start 11/12/16 at 21:00 Gabapentin 100 mg 100 mg TID PO Last administered on 12/06/16 12:33; Admin Dose 100 MG; Start 11/12/16 at 21:00 Levofloxacin/ Dextrose 100 ml @ 100 mls/hr Q24H IVPB Last administered on 12/05 20:40; Admin Dose 100 MLS/HR; Start 11/13/16 at 20:30 Metronidazole 100 ml @ 100 mls/hr Q8 IVPB Last administered on 12/06/16 12:33 ; Admin Dose 100 MLS/HR; Start 11/14/16 at 16:00 Daptomycin/Sodium Chloride (Cubicin/NS) 100 ml @ 200 mls/hr Q24H IVPB Last administered on 12/05/16 17:44; Admin Dose 200 MLS/HR; Start 11/14/16 at 17:00 Zolpidem Tartrate (Ambien) 5 mg HS PRN PO INSOMNIA; Start 11/15/16 at 23:30 Loperamide HCl (Imodium Cap) 2 mg QID PRN PO DIARRHEA Last administered on 11/17 12:51; Admin Dose 2 MG; Start 11/16/16 at 16:00 Acetaminophen/ Hydrocodone Bitart ([place] (5/325)) 1 tab Q6H PRN PO pain Last administered on 12/06/16 09:04; Admin Dose 1 TAB; Start 11/22/16 at 12:00 Morphine Sulfate (morphine) 2 mg Q4H PRN IV SEVERE PAIN LEVEL 7-10 Last administered on 12/06/16 04:04; Admin Dose 2 MG; Start 11/23/16 at 12:00 Tacrolimus (Prograf) 2 mg Q12 PO Last administered on 12/06/16 08:50; Admin Dose 2 MG; Start 11/24/16 at 10:00 Ondansetron HCl (Zofran Inj) 4 mg Q4H PRN IV NAUSEA AND/OR VOMITING Last administered on 11/30/16 17:21; Admin Dose 4 MG; Start 11/27/16 at 17:30 Hydralazine HCl (Apresoline) 10 mg Q6H PRN IV ELEVATED BLOOD PRESSURE; Start at 21:00 Hydralazine HCl (Apresoline) 20 mg Q6H PRN IV ELEVATED BLOOD PRESSURE Last administered on 11/27/16 21:42; Admin Dose 20 MG; Start 11/27/16 at 21:00 Benazepril HCl (Lotensin) 10 mg DAILY PO Last administered on 12/06/16 08:52; Admin Dose 10 MG; Start 11/30/16 at 09:00 Ondansetron HCl (Zofran Inj) 4 mg Q4H PRN IV NAUSEA AND/OR VOMITING; Start at 15:30 Clopidogrel Bisulfate (plaVIX) 75 mg DAILY PO Last administered on 12/06/16 08 :52; Admin Dose 75 MG; Start 12/04/16 at 09:00 JACQUES HUERTA NP Dec 06, 2016 14:25
[2016-12-06 14:50] VITALS: BP 101/59; RESP 16
[2016-12-06] MEDS: SOD CHLORIDE 0.9% IVPB SCH (17:34)
[2016-12-06] MEDS: DAPTOMYCIN IVPB SCH (17:34)
[2016-12-06 20:00] VITALS: BP 148/70; RESP 18
[2016-12-06] MEDS: LEVOFLOXACIN 500MG/D5W (PMX) 100 ML IVPB SCH (20:35)
[2016-12-06] MEDS: FAMOTIDINE 20 MG TAB PO SCH (20:36)
[2016-12-07] VITALS (23 sets, daily range): BP systolic 136–176; BP diastolic 69–91; PULSE 88–104; RESP 16–35
[2016-12-07] MEDS: SOD CHLORIDE 0.9% 1,000 ML IV SCH ×2 (00:12→17:00)
[2016-12-07] MEDS: PANTOPRAZOLE (EC) 40 MG TAB PO SCH (05:08)
[2016-12-07] MEDS: metroNIDAZOLE 500 MG/NS (PMX) 100 ML IVPB SCH ×3 (05:09→23:12)
[2016-12-07] MEDS ORDERED: DEXAMETHASONE 4 MG/ML 1 ML INJ ONE ×2 (07:00)
[2016-12-07] MEDS ORDERED: LIDOCAINE 2% (SDV) 5 ML INJ ONE ×2 (07:00)
[2016-12-07] MEDS ORDERED: ONDANSETRON 4 MG INJ ONE ×2 (07:00)
[2016-12-07 07:47] LABS: BASOPHILS % 0.3 % (0.0-2.0); EOSINOPHILS # 0.1 10^3/ul (0.0-0.5); HEMATOCRIT 34.2 % (37.0-47.0); HEMOGLOBIN 11.2 g/dl (12.0-16.0); LYMPHOCYTES # 0.9 10^3/ul (0.8-2.9); LYMPHOCYTES % 12.2 % (15.0-51.0); MEAN CORPUSCULAR HEMOGLOBIN 28.1 pg (29.0-33.0); MEAN CORPUSCULAR HGB CONC 32.7 g/dl (32.0-37.0); MEAN CORPUSCULAR VOLUME 85.9 fl (82.0-101.0); MEAN PLATELET VOLUME 11.9 fl (7.4-10.4); MONOCYTES % 13.7 % (0.0-11.0); NEUTROPHILS % 72.4 % (39.0-77.0); PLATELET COUNT 239 10^3/UL (140-415); RED BLOOD COUNT 3.98 10^6/ul (4.20-5.40); WHITE BLOOD COUNT 7.3 10^3/ul (4.8-10.8)
[2016-12-07 08:08] LABS: CALCIUM 8.8 mg/dl (8.4-10.2); CREATININE 0.62 mg/dl (0.44-1.00); MAGNESIUM 1.2 mg/dl (1.7-2.5); POTASSIUM 4.5 mmol/L (3.5-5.1)
[2016-12-07] MEDS: FOLIC ACID 1 MG TAB PO SCH (09:00)
[2016-12-07] MEDS: CLOPIDOGREL 75 MG TAB PO SCH (09:00)
[2016-12-07] MEDS: ASPIRIN (EC) 81 MG TAB PO SCH (09:00)
[2016-12-07] MEDS: BENAZEPRIL 10 MG TAB PO SCH (09:00)
[2016-12-07] MEDS: METOPROLOL 25 MG TAB PO SCH ×2 (09:00→21:38)
[2016-12-07] MEDS: DILTIAZEM (CD) 180 MG CAP PO SCH (09:00)
[2016-12-07] MEDS: MYCOPHENOLATE 250 MG CAP PO SCH ×2 (09:00→21:37)
[2016-12-07] MEDS: TACROLIMUS 0.5 MG CAP PO SCH ×2 (09:00→21:41)
[2016-12-07] MEDS: GABAPENTIN 100 MG CAP PO SCH ×3 (13:00→21:38)
--- NOTE | 2016-12-07 13:10 | CONS ---
Date/Time of Note Date/Time of Note DATE: 12/07/16 TIME: 13:09 Assessment/Plan Assessment/Plan Additional Assessment/Plan 1. 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 h/o donor kidney transplant in 2009 at [facility], currently on immunosuppression with Prograf, CellCept 4. 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 History of hypertension. 6. History of diabetes mellitus. 7. History of previous left upper extremity arteriovenous fistula. 8. Mild Metabolic acidosis, 9. Electrolyte imbalance- Hypercalcemia- resolved ,Hypokalemia- resolved, Hypomagnesemia- resolved Plan: IV abx as per Infectious disease service daptomycin s/p LE angiogram, cr stable, no IVF< no mucomyst needed Continue current immunosuppresion with prograf,cellcept, no prednisone due to hypercalcemia will continue to follow up ok to d/c from renal point of view, follow up with me in clinic in 2 weeks Consultation Date/Type/Reason Admit Date/Time Nov 12, 2016 at 10:06 Initial Consult Date 11/13/16 Type of Consultation: ID Referring Provider: KRISTIN HALL MD 24 HR Interval Summary Free Text/Dictation Patient is off floor - debridement bilateral feet with possible wound vac placement. no new issues reported by staff Exam/Review of Systems Vital Signs Vitals Vital Signs Date Time Temp Pulse Resp B/P Pulse Ox O2 Delivery O2 Flow Rate FiO2 12/07/16 10:11 98.6 79 18 143/69 100 Intake and Output 12/06/16 12/06/16 12/07/16 15:00 23:00 07:00 Intake Total 720 ml 900 ml Balance 720 ml 900 ml Results Result Diagram: 12/07/16 0610 12/07/16 0610 Results 24 hrs Laboratory Tests Test 12/07/16 06:10 White Blood Count 7.3 Red Blood Count 3.98 L Hemoglobin 11.2 L Hematocrit 34.2 L Mean Corpuscular Volume 85.9 Mean Corpuscular Hemoglobin 28.1 L Mean Corpuscular Hemoglobin Concent 32.7 Red Cell Distribution Width 14.0 Platelet Count 239 # Mean Platelet Volume 11.9 H Neutrophils % 72.4 Lymphocytes % 12.2 L Monocytes % 13.7 H Eosinophils % 1.0 Basophils % 0.3 Nucleated Red Blood Cells % 0.0 Neutrophils # (Manual) 5 Lymphocytes # 0.9 Monocytes # 1.0 H Eosinophils # 0.1 Basophils # 0.0 Nucleated Red Blood Cells # 0.0 Sodium Level 138 Potassium Level 4.5 Chloride Level 102 Carbon Dioxide Level 22 Anion Gap 19 H Blood Urea Nitrogen 8 Creatinine 0.62 Glucose Level 92 Calcium Level 8.8 Magnesium Level 1.2 L Medications Medications Current Medications Acetaminophen (Tylenol Tab) 650 mg Q6H PRN PO PAIN LEVEL 1-3 OR FEVER; Start at 16:00 Pantoprazole (Protonix Tab) 40 mg DAILY@06 PO Last administered on 12/06/16 04 :04; Admin Dose 40 MG; Start 11/13/16 at 06:00 Aspirin (Halfprin) 81 mg DAILY PO Last administered on 12/06/16 08:52; Admin Dose 81 MG; Start 11/13/16 at 09:00 Diltiazem HCl (Cardizem Cd) 180 mg DAILY PO Last administered on 12/06/16 08: 53; Admin Dose 180 MG; Start 11/13/16 at 09:00 Famotidine (Pepcid) 40 mg HS PO Last administered on 12/06/16 20:36; Admin Dose 40 MG; Start 11/12/16 at 21:00 Folic Acid (Folic Acid) 1 mg DAILY PO Last administered on 12/06/16 08:53; Admin Dose 1 MG; Start 11/13/16 at 09:00 Mycophenolate Mofetil (Cellcept) 1,000 mg BID PO Last administered on 20:36; Admin Dose 1,000 MG; Start 11/12/16 at 21:00 Metoprolol Tartrate (Lopressor) 75 mg BID PO Last administered on 12/06/16 20: 36; Admin Dose 75 MG; Start 11/12/16 at 21:00 Gabapentin 100 mg 100 mg TID PO Last administered on 12/06/16 20:36; Admin Dose 100 MG; Start 11/12/16 at 21:00 Levofloxacin/ Dextrose 100 ml @ 100 mls/hr Q24H IVPB Last administered on 12/06 20:35; Admin Dose 100 MLS/HR; Start 11/13/16 at 20:30 Metronidazole 100 ml @ 100 mls/hr Q8 IVPB Last administered on 12/07/16 05:09 ; Admin Dose 100 MLS/HR; Start 11/14/16 at 16:00 Daptomycin/Sodium Chloride (Cubicin/NS) 100 ml @ 200 mls/hr Q24H IVPB Last administered on 12/06/16 17:34; Admin Dose 200 MLS/HR; Start 11/14/16 at 17:00 Zolpidem Tartrate (Ambien) 5 mg HS PRN PO INSOMNIA Last administered on 00:38; Admin Dose 5 MG; Start 11/15/16 at 23:30 Loperamide HCl (Imodium Cap) 2 mg QID PRN PO DIARRHEA Last administered on 11/17 12:51; Admin Dose 2 MG; Start 11/16/16 at 16:00 Acetaminophen/ Hydrocodone Bitart ([place] (5/325)) 1 tab Q6H PRN PO pain Last administered on 12/06/16 09:04; Admin Dose 1 TAB; Start 11/22/16 at 12:00 Morphine Sulfate (morphine) 2 mg Q4H PRN IV SEVERE PAIN LEVEL 7-10 Last administered on 12/06/16 20:37; Admin Dose 2 MG; Start 11/23/16 at 12:00 Tacrolimus (Prograf) 2 mg Q12 PO Last administered on 12/06/16 20:37; Admin Dose 2 MG; Start 11/24/16 at 10:00 Ondansetron HCl (Zofran Inj) 4 mg Q4H PRN IV NAUSEA AND/OR VOMITING Last administered on 11/30/16 17:21; Admin Dose 4 MG; Start 11/27/16 at 17:30 Hydralazine HCl (Apresoline) 10 mg Q6H PRN IV ELEVATED BLOOD PRESSURE; Start at 21:00 Hydralazine HCl (Apresoline) 20 mg Q6H PRN IV ELEVATED BLOOD PRESSURE Last administered on 11/27/16 21:42; Admin Dose 20 MG; Start 11/27/16 at 21:00 Benazepril HCl (Lotensin) 10 mg DAILY PO Last administered on 12/06/16 08:52; Admin Dose 10 MG; Start 11/30/16 at 09:00 Ondansetron HCl (Zofran Inj) 4 mg Q4H PRN IV NAUSEA AND/OR VOMITING; Start at 15:30 Clopidogrel Bisulfate 75 mg 75 mg DAILY PO Last administered on 12/06/16 08:52 ; Admin Dose 75 MG; Start 12/04/16 at 09:00 Sodium Chloride (NS) 1,000 ml @ 70 mls/hr [id number] IV Last administered on 12/07 00:12; Admin Dose 70 MLS/HR; Start 12/07/16 at 00:00 TIM BENNETT Dec 07, 2016 13:10
--- NOTE | 2016-12-07 13:22 | HPN ---
Date/Time of Note Date/Time of Note DATE: 12/07/16 TIME: 13:22 Interval H&P Admission Note Pt. seen H&P reviewed: No system changes IWLD DUARTE MD Dec 07, 2016 13:22
--- NOTE | 2016-12-07 13:24 | OPR ---
Date/Time of Note Date/Time of Note DATE: 12/07/16 TIME: 13:23 Operative Report Preoperative Diagnosis BILATERAL LOWER EXTREMITY NON-HEALING STUMP WOUNDS Postoperative Diagnosis SAME Surgeon: WILD DUARTE MD Anesthesia Type: general, moderate sedation Estimated Blood Loss: minimal Transfusion Required: no Grafts/Implants AMNIOTIC TISSUE Complications: no WILD DUARTE MD Dec 07, 2016 13:24
[2016-12-07] MEDS ORDERED: FENTAnyl 50 MCG/ML VIAL ONE ×2 (13:48→14:07)
[2016-12-07] MEDS ORDERED: PROPOFOL 20 ML ONE (13:50)
[2016-12-07] MEDS ORDERED: DIPHENHYDRAMINE 50 MG INJ IV PRN (14:30)
[2016-12-07] MEDS ORDERED: MIDAZOLAM 1 MG/ML 2 ML INJ IV PRN (14:30)
[2016-12-07] MEDS ORDERED: hydrALAzine 20 MG INJ IV PRN (14:30)
[2016-12-07] MEDS ORDERED: LABETALOL HCL 20MG INJ IV PRN (14:30)
[2016-12-07] MEDS ORDERED: HYDROmorphONE (0.2 MG/ML) 10ML SYG IV PRN ×3 (14:30)
[2016-12-07] MEDS ORDERED: OXYCODONE/ACETAMINOPHEN (5/325) TAB PO PRN ×2 (14:30)
[2016-12-07] MEDS ORDERED: ONDANSETRON 4 MG INJ IV PRN (14:30)
[2016-12-07] MEDS ORDERED: FENTAnyl 50 MCG/ML VIAL IV PRN (14:30)
[2016-12-07] MEDS ORDERED: MEPERIDINE 25 MG INJ IV PRN (14:30)
[2016-12-07] MEDS ORDERED: EPHEDrine SULFATE 50 MG/5 ML SYG IV PRN (14:30)
[2016-12-07] MEDS: FENTAnyl 50 MCG/ML VIAL IV PRN ×5 (14:59→17:45)
--- NOTE | 2016-12-07 15:50 | PN ---
Date/Time of Note Date/Time of Note DATE: 12/07/16 TIME: 15:47 Assessment/Plan VTE Prophylaxis VTE Prophylaxis Intervention: heparin Lines/Catheters IV [facility] [place] Urinary Cath still in place: No Assessment/Plan Problems: (1) Onychomycosis Status: Chronic Comment: Noted. Treatment topical as an outpatient (2) Diabetes mellitus type 2 with complications Status: Chronic Comment: Excellent glycemic control under the current regimen Qualifiers: Diabetes mellitus skilled nursing insulin use: with terminal system operator use Qualified Code : E11.8 - Type 2 diabetes mellitus with complication, with long-term current use of insulin (3) Essential hypertension Status: Chronic Comment: Adequate control with current medication regimen without untoward complications (4) Peripheral vascular disease Status: Chronic Comment: Noted. She is undergone staged revascularization as was planned 2 weeks ago. 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 Subjective 24 Hr Interval Summary Free Text/Dictation Patient is seen in recovery post procedure by vascular. Essentially she had a specialized application to help with healing. Constitutional: no complaints Respiratory: no complaints Cardiovascular: no complaints Exam/Review of Systems Vital Signs Vitals Vital Signs Date Time Temp Pulse Resp B/P Pulse Ox O2 Delivery O2 Flow Rate FiO2 12/07/16 15:20 98 22 159/87 100 Room Air 12/07/16 14:40 99.2 Intake and Output 12/06/16 12/06/16 12/07/16 15:00 23:00 07:00 Intake Total 720 ml 900 ml Balance 720 ml 900 ml Exam Constitutional: alert ENMT: nl external ears & nose, nl nasal mucosa & septum, other (Left upper lip laceration occurred during a surgery) Respiratory: clear to auscultation, normal air movement Cardiovascular: regular rate and rhythm Gastrointestinal: nl liver, spleen, non-tender, soft Extremities: other (Both lower extremities heavily bandaged. Please note she does have onychomycosis) Results Result Diagram: 12/07/16 0610 12/07/16 0610 Results 24 hrs Laboratory Tests Test 12/07/16 06:10 White Blood Count 7.3 Red Blood Count 3.98 L Hemoglobin 11.2 L Hematocrit 34.2 L Mean Corpuscular Volume 85.9 Mean Corpuscular Hemoglobin 28.1 L Mean Corpuscular Hemoglobin Concent 32.7 Red Cell Distribution Width 14.0 Platelet Count 239 # Mean Platelet Volume 11.9 H Neutrophils % 72.4 Lymphocytes % 12.2 L Monocytes % 13.7 H Eosinophils % 1.0 Basophils % 0.3 Nucleated Red Blood Cells % 0.0 Neutrophils # (Manual) 5 Lymphocytes # 0.9 Monocytes # 1.0 H Eosinophils # 0.1 Basophils # 0.0 Nucleated Red Blood Cells # 0.0 Sodium Level 138 Potassium Level 4.5 Chloride Level 102 Carbon Dioxide Level 22 Anion Gap 19 H Blood Urea Nitrogen 8 Creatinine 0.62 Glucose Level 92 Calcium Level 8.8 Magnesium Level 1.2 L Medications Medications Current Medications Acetaminophen (Tylenol Tab) 650 mg Q6H PRN PO PAIN LEVEL 1-3 OR FEVER; Start at 16:00 Pantoprazole (Protonix Tab) 40 mg DAILY@06 PO Last administered on 12/06/16 04 :04; Admin Dose 40 MG; Start 11/13/16 at 06:00 Aspirin (Halfprin) 81 mg DAILY PO Last administered on 12/06/16 08:52; Admin Dose 81 MG; Start 11/13/16 at 09:00 Diltiazem HCl (Cardizem Cd) 180 mg DAILY PO Last administered on 12/06/16 08: 53; Admin Dose 180 MG; Start 11/13/16 at 09:00 Famotidine (Pepcid) 40 mg HS PO Last administered on 12/06/16 20:36; Admin Dose 40 MG; Start 11/12/16 at 21:00 Folic Acid (Folic Acid) 1 mg DAILY PO Last administered on 12/06/16 08:53; Admin Dose 1 MG; Start 11/13/16 at 09:00 Mycophenolate Mofetil (Cellcept) 1,000 mg BID PO Last administered on 20:36; Admin Dose 1,000 MG; Start 11/12/16 at 21:00 Metoprolol Tartrate (Lopressor) 75 mg BID PO Last administered on 12/06/16 20: 36; Admin Dose 75 MG; Start 11/12/16 at 21:00 Gabapentin 100 mg 100 mg TID PO Last administered on 12/06/16 20:36; Admin Dose 100 MG; Start 11/12/16 at 21:00 Levofloxacin/ Dextrose 100 ml @ 100 mls/hr Q24H IVPB Last administered on 12/06 20:35; Admin Dose 100 MLS/HR; Start 11/13/16 at 20:30 Metronidazole 100 ml @ 100 mls/hr Q8 IVPB Last administered on 12/07/16 05:09 ; Admin Dose 100 MLS/HR; Start 11/14/16 at 16:00 Daptomycin/Sodium Chloride (Cubicin/NS) 100 ml @ 200 mls/hr Q24H IVPB Last administered on 12/06/16 17:34; Admin Dose 200 MLS/HR; Start 11/14/16 at 17:00 Zolpidem Tartrate (Ambien) 5 mg HS PRN PO INSOMNIA Last administered on 00:38; Admin Dose 5 MG; Start 11/15/16 at 23:30 Loperamide HCl (Imodium Cap) 2 mg QID PRN PO DIARRHEA Last administered on 11/17 12:51; Admin Dose 2 MG; Start 11/16/16 at 16:00 Acetaminophen/ Hydrocodone Bitart ([place] (5/325)) 1 tab Q6H PRN PO pain Last administered on 12/06/16 09:04; Admin Dose 1 TAB; Start 11/22/16 at 12:00 Morphine Sulfate (morphine) 2 mg Q4H PRN IV SEVERE PAIN LEVEL 7-10 Last administered on 12/06/16 20:37; Admin Dose 2 MG; Start 11/23/16 at 12:00 Tacrolimus (Prograf) 2 mg Q12 PO Last administered on 12/06/16 20:37; Admin Dose 2 MG; Start 11/24/16 at 10:00 Ondansetron HCl (Zofran Inj) 4 mg Q4H PRN IV NAUSEA AND/OR VOMITING Last administered on 11/30/16 17:21; Admin Dose 4 MG; Start 11/27/16 at 17:30 Hydralazine HCl (Apresoline) 10 mg Q6H PRN IV ELEVATED BLOOD PRESSURE; Start at 21:00 Hydralazine HCl (Apresoline) 20 mg Q6H PRN IV ELEVATED BLOOD PRESSURE Last administered on 11/27/16 21:42; Admin Dose 20 MG; Start 11/27/16 at 21:00 Benazepril HCl (Lotensin) 10 mg DAILY PO Last administered on 12/06/16 08:52; Admin Dose 10 MG; Start 11/30/16 at 09:00 Ondansetron HCl (Zofran Inj) 4 mg Q4H PRN IV NAUSEA AND/OR VOMITING; Start at 15:30 Clopidogrel Bisulfate 75 mg 75 mg DAILY PO Last administered on 12/06/16 08:52 ; Admin Dose 75 MG; Start 12/04/16 at 09:00 Sodium Chloride (NS) 1,000 ml @ 70 mls/hr [id number] IV Last administered on 12/07 00:12; Admin Dose 70 MLS/HR; Start 12/07/16 at 00:00 KRISTEN ZIMMERMAN MD Dec 07, 2016 15:50
[2016-12-07] MEDS: KETOROLAC 30 MG INJ IV PRN ×3 (15:54→17:45)
--- NOTE | 2016-12-07 16:22 | CONS ---
Date/Time of Note Date/Time of Note DATE: 12/07/16 TIME: 16:21 Assessment/Plan Assessment/Plan Chief Complaint/Hosp Course SUBJECTIVE DATA: No acute changes. The patient is awake, looks comfortable. No fevers. ANTIMICROBIALS: Daptomycin, Flagyl, Levaquin. GENERAL: This is a fragile well-developed elderly woman who is alert in no distress. HEENT: Head atraumatic, normocephalic. Sclerae anicteric. Buccal mucosa pink. NECK: Supple. CHEST: Rise symmetrical. Breath sounds clear. HEART: S1, S2. ABDOMEN: Soft, bowel sounds present. EXTREMITIES: With bilateral necrotic gangrenous toes. Dressing intact. ASSESSMENT: 1. Bilateral foot gangrene. Status post revascularization procedure 2. Hypertension. 3. Diabetes. 4. History of donor transplant in 2009. On immunosuppressive therapy. 5. Anemia. PLAN: The patient remains stable, on appropriate antibiotics, continue present care, follow vascular/cardiology/renal rec-s, plan for debridement. DW staff Problems: Consultation Date/Type/Reason Admit Date/Time Nov 12, 2016 at 10:06 Initial Consult Date 11/13/16 Type of Consultation: ID Referring Provider: KRISTIN HALL MD Exam/Review of Systems Vital Signs Vitals Vital Signs Date Time Temp Pulse Resp B/P Pulse Ox O2 Delivery O2 Flow Rate FiO2 12/07/16 16:05 92 27 154/89 99 Room Air 12/07/16 14:40 99.2 Intake and Output 12/06/16 12/06/16 12/07/16 15:00 23:00 07:00 Intake Total 720 ml 900 ml Balance 720 ml 900 ml Results Result Diagram: 12/07/16 0610 12/07/16 0610 Results 24 hrs Laboratory Tests Test 12/07/16 06:10 White Blood Count 7.3 Red Blood Count 3.98 L Hemoglobin 11.2 L Hematocrit 34.2 L Mean Corpuscular Volume 85.9 Mean Corpuscular Hemoglobin 28.1 L Mean Corpuscular Hemoglobin Concent 32.7 Red Cell Distribution Width 14.0 Platelet Count 239 # Mean Platelet Volume 11.9 H Neutrophils % 72.4 Lymphocytes % 12.2 L Monocytes % 13.7 H Eosinophils % 1.0 Basophils % 0.3 Nucleated Red Blood Cells % 0.0 Neutrophils # (Manual) 5 Lymphocytes # 0.9 Monocytes # 1.0 H Eosinophils # 0.1 Basophils # 0.0 Nucleated Red Blood Cells # 0.0 Sodium Level 138 Potassium Level 4.5 Chloride Level 102 Carbon Dioxide Level 22 Anion Gap 19 H Blood Urea Nitrogen 8 Creatinine 0.62 Glucose Level 92 Calcium Level 8.8 Magnesium Level 1.2 L Medications Medications Current Medications Acetaminophen (Tylenol Tab) 650 mg Q6H PRN PO PAIN LEVEL 1-3 OR FEVER; Start at 16:00 Pantoprazole (Protonix Tab) 40 mg DAILY@06 PO Last administered on 12/06/16 04 :04; Admin Dose 40 MG; Start 11/13/16 at 06:00 Aspirin (Halfprin) 81 mg DAILY PO Last administered on 12/06/16 08:52; Admin Dose 81 MG; Start 11/13/16 at 09:00 Diltiazem HCl (Cardizem Cd) 180 mg DAILY PO Last administered on 12/06/16 08: 53; Admin Dose 180 MG; Start 11/13/16 at 09:00 Famotidine (Pepcid) 40 mg HS PO Last administered on 12/06/16 20:36; Admin Dose 40 MG; Start 11/12/16 at 21:00 Folic Acid (Folic Acid) 1 mg DAILY PO Last administered on 12/06/16 08:53; Admin Dose 1 MG; Start 11/13/16 at 09:00 Mycophenolate Mofetil (Cellcept) 1,000 mg BID PO Last administered on 20:36; Admin Dose 1,000 MG; Start 11/12/16 at 21:00 Metoprolol Tartrate (Lopressor) 75 mg BID PO Last administered on 12/06/16 20: 36; Admin Dose 75 MG; Start 11/12/16 at 21:00 Gabapentin 100 mg 100 mg TID PO Last administered on 12/06/16 20:36; Admin Dose 100 MG; Start 11/12/16 at 21:00 Levofloxacin/ Dextrose 100 ml @ 100 mls/hr Q24H IVPB Last administered on 12/06 20:35; Admin Dose 100 MLS/HR; Start 11/13/16 at 20:30 Metronidazole 100 ml @ 100 mls/hr Q8 IVPB Last administered on 12/07/16 05:09 ; Admin Dose 100 MLS/HR; Start 11/14/16 at 16:00 Daptomycin/Sodium Chloride (Cubicin/NS) 100 ml @ 200 mls/hr Q24H IVPB Last administered on 12/06/16 17:34; Admin Dose 200 MLS/HR; Start 11/14/16 at 17:00 Zolpidem Tartrate (Ambien) 5 mg HS PRN PO INSOMNIA Last administered on 00:38; Admin Dose 5 MG; Start 11/15/16 at 23:30 Loperamide HCl (Imodium Cap) 2 mg QID PRN PO DIARRHEA Last administered on 11/17 12:51; Admin Dose 2 MG; Start 11/16/16 at 16:00 Acetaminophen/ Hydrocodone Bitart ([place] (5/325)) 1 tab Q6H PRN PO pain Last administered on 12/06/16 09:04; Admin Dose 1 TAB; Start 11/22/16 at 12:00 Morphine Sulfate (morphine) 2 mg Q4H PRN IV SEVERE PAIN LEVEL 7-10 Last administered on 12/06/16 20:37; Admin Dose 2 MG; Start 11/23/16 at 12:00 Tacrolimus (Prograf) 2 mg Q12 PO Last administered on 12/06/16 20:37; Admin Dose 2 MG; Start 11/24/16 at 10:00 Ondansetron HCl (Zofran Inj) 4 mg Q4H PRN IV NAUSEA AND/OR VOMITING Last administered on 11/30/16 17:21; Admin Dose 4 MG; Start 11/27/16 at 17:30 Hydralazine HCl (Apresoline) 10 mg Q6H PRN IV ELEVATED BLOOD PRESSURE; Start at 21:00 Hydralazine HCl (Apresoline) 20 mg Q6H PRN IV ELEVATED BLOOD PRESSURE Last administered on 11/27/16 21:42; Admin Dose 20 MG; Start 11/27/16 at 21:00 Benazepril HCl (Lotensin) 10 mg DAILY PO Last administered on 12/06/16 08:52; Admin Dose 10 MG; Start 11/30/16 at 09:00 Ondansetron HCl (Zofran Inj) 4 mg Q4H PRN IV NAUSEA AND/OR VOMITING; Start at 15:30 Clopidogrel Bisulfate 75 mg 75 mg DAILY PO Last administered on 12/06/16 08:52 ; Admin Dose 75 MG; Start 12/04/16 at 09:00 Sodium Chloride (NS) 1,000 ml @ 70 mls/hr [id number] IV Last administered on 12/07 00:12; Admin Dose 70 MLS/HR; Start 12/07/16 at 00:00 JACQUES HUERTA NP Dec 07, 2016 16:22
[2016-12-07] MEDS: SOD CHLORIDE 0.9% IVPB SCH (17:45)
[2016-12-07] MEDS: DAPTOMYCIN IVPB SCH (17:45)
[2016-12-07] MEDS: LEVOFLOXACIN 500MG/D5W (PMX) 100 ML IVPB SCH (21:37)
[2016-12-07] MEDS: FAMOTIDINE 20 MG TAB PO SCH (21:38)
[2016-12-07] MEDS: morphine 2 MG INJ IV PRN (22:00)
[2016-12-07] MEDS ORDERED: MAGNESIUM SULFATE 4 GM/100 ML 100 ML IVPB ONE (23:00)
[2016-12-08 02:16] VITALS: BP 130/73; RESP 16
[2016-12-08] MEDS: metroNIDAZOLE 500 MG/NS (PMX) 100 ML IVPB SCH ×3 (05:09→22:08)
[2016-12-08] MEDS: PANTOPRAZOLE (EC) 40 MG TAB PO SCH (05:09)
[2016-12-08] MEDS: SOD CHLORIDE 0.9% 1,000 ML IV SCH ×2 (05:09→17:32)
[2016-12-08 08:03] VITALS: BP 162/85; RESP 16
[2016-12-08] MEDS: DILTIAZEM (CD) 180 MG CAP PO SCH (08:43)
[2016-12-08] MEDS: MYCOPHENOLATE 250 MG CAP PO SCH ×2 (08:43→20:56)
[2016-12-08] MEDS: METOPROLOL 25 MG TAB PO SCH ×2 (08:44→20:57)
[2016-12-08] MEDS: ASPIRIN (EC) 81 MG TAB PO SCH (08:44)
[2016-12-08] MEDS: BENAZEPRIL 10 MG TAB PO SCH (08:44)
[2016-12-08] MEDS: CLOPIDOGREL 75 MG TAB PO SCH (08:44)
[2016-12-08] MEDS: GABAPENTIN 100 MG CAP PO SCH ×3 (08:44→20:57)
[2016-12-08] MEDS: FOLIC ACID 1 MG TAB PO SCH (08:44)
[2016-12-08] MEDS: TACROLIMUS 0.5 MG CAP PO SCH ×2 (08:45→20:57)
[2016-12-08 10:00] VITALS: BP 147/72
--- NOTE | 2016-12-08 10:12 | PN ---
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 Unfortunately she has no vein conduit to perform limb salvage revascularization and being chronically immunosuppressed secondary to her kidney transplant limits performing bypass with upper extremity vein graft. Therefore, staged procedures with endovascular interventions with anesthesia was performed -S/P Advanced RLE Endovascular intervention -S/P Advanced LLE Endovascular intervention S/P Bilateral lower extremity dbridements with amniotic tissue application -Patient cleared from Vascular surgery for D/C planning. -Will change dressings in one week and debride as outpt in the office -Appreciate Nephrology evaluation -Optimize vascular status (BP medications, diet, nutrition and exercise, sugar control, antiplatelets). -Appreciate Cardiology evaluation -Discussed findings, plan and management with the patient with a certified it application administrator and she understands that there is great concern as she has critical limb ischemia of both legs and limb salvage may be challenging for her and possibility of a major amputation in there -Thank you for allowing us to partake in the care of your patient. Please call with any questions. Problems: Subjective 24 Hr Interval Summary Constitutional: no complaints Pain Control: well controlled Exam/Review of Systems Vital Signs Vitals Vital Signs Date Time Temp Pulse Resp B/P Pulse Ox O2 Delivery O2 Flow Rate FiO2 12/08/16 08:03 97.9 75 16 162/85 100 12/07/16 16:10 Room Air Intake and Output 12/07/16 12/07/16 12/08/16 15:00 23:00 07:00 Intake Total 950 ml 440 ml 1350 ml Output Total 15 ml Balance 935 ml 440 ml 1350 ml Exam Free Text/Dictation Alert and oriented x3. LUNGS: Clear to auscultation bilaterally CARDIOVASCULAR: S1 and S2 present. ABDOMEN: Soft, nontender and nondistended. Bowel sounds positive. Surgical scar well healed. EXTREMITIES: Right lower extremity faint femoral pulse. Nonpalpable pedal pulse. Motor and sensory intact. Capillary refill 4 seconds. 5th toe amputation stump site clean with dressing intact Left lower extremity faint femoral pulse. Nonpalpable pedal pulse. Motor and sensory intact. Capillary refill 4 seconds. First toe with gangrene. Fourth and fifth toe amputation stump wound clean with dressing intact Results Result Diagram: 12/07/16 0610 12/07/16 0610 WILD DUARTE MD Dec 08, 2016 10:11
--- NOTE | 2016-12-08 12:09 | PN ---
Date/Time of Note Date/Time of Note DATE: 12/08/16 TIME: 12:07 Assessment/Plan VTE Prophylaxis VTE Prophylaxis Intervention: other Lines/Catheters IV Catheter Type (from [facility]): Peripheral IV Urinary Cath still in place: No Assessment/Plan Problems: (1) Status post kidney transplant Status: Chronic Comment: Fortunately she remains stable on antirejection medicines after her renal transplant (2) Diabetes mellitus type 2 with complications Status: Chronic Comment: Adequate control with current medication regimen Qualifiers: Diabetes mellitus intermediate teacher insulin use: with snf use Qualified Code : E11.8 - Type 2 diabetes mellitus with complication, with long-term current use of insulin (3) Essential hypertension Status: Chronic Comment: Adequate control with current medication regimen no indication to change (4) 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 We are now on the phase of hoping that this will work out with minimal surgical needs for removal of digits Subjective 24 Hr Interval Summary Free Text/Dictation Patient sitting in bed starting on lunch reports no new complaints. She does have pain in the lower extremities Constitutional: no complaints (No fevers chills or sweats) Respiratory: no complaints Cardiovascular: no complaints Gastrointestinal: no complaints Musculoskeletal: other (Bilateral foot pain) Exam/Review of Systems Vital Signs Vitals Vital Signs Date Time Temp Pulse Resp B/P Pulse Ox O2 Delivery O2 Flow Rate FiO2 12/08/16 08:03 97.9 75 16 162/85 100 12/07/16 16:10 Room Air Intake and Output 12/07/16 12/07/16 12/08/16 15:00 23:00 07:00 Intake Total 950 ml 440 ml 1350 ml Output Total 15 ml Balance 935 ml 440 ml 1350 ml Exam Constitutional: alert, oriented Neck: non-tender, supple Respiratory: clear to auscultation, normal air movement Cardiovascular: nl pulses, regular rate and rhythm Extremities: other (Gangrene left great toe) Results Result Diagram: 12/07/16 0610 12/07/16 0610 Medications Medications Current Medications Acetaminophen (Tylenol Tab) 650 mg Q6H PRN PO PAIN LEVEL 1-3 OR FEVER; Start at 16:00 Pantoprazole (Protonix Tab) 40 mg DAILY@06 PO Last administered on 12/08/16 05 :09; Admin Dose 40 MG; Start 11/13/16 at 06:00 Aspirin (Halfprin) 81 mg DAILY PO Last administered on 12/08/16 08:44; Admin Dose 81 MG; Start 11/13/16 at 09:00 Diltiazem HCl (Cardizem Cd) 180 mg DAILY PO Last administered on 12/08/16 08: 43; Admin Dose 180 MG; Start 11/13/16 at 09:00 Famotidine (Pepcid) 40 mg HS PO Last administered on 12/07/16 21:38; Admin Dose 40 MG; Start 11/12/16 at 21:00 Folic Acid (Folic Acid) 1 mg DAILY PO Last administered on 12/08/16 08:44; Admin Dose 1 MG; Start 11/13/16 at 09:00 Mycophenolate Mofetil (Cellcept) 1,000 mg BID PO Last administered on 08:43; Admin Dose 1,000 MG; Start 11/12/16 at 21:00 Metoprolol Tartrate (Lopressor) 75 mg BID PO Last administered on 12/08/16 08: 44; Admin Dose 75 MG; Start 11/12/16 at 21:00 Gabapentin 100 mg 100 mg TID PO Last administered on 12/08/16 08:44; Admin Dose 100 MG; Start 11/12/16 at 21:00 Levofloxacin/ Dextrose 100 ml @ 100 mls/hr Q24H IVPB Last administered on 12/07 21:37; Admin Dose 100 MLS/HR; Start 11/13/16 at 20:30 Metronidazole 100 ml @ 100 mls/hr Q8 IVPB Last administered on 12/08/16 05:09 ; Admin Dose 100 MLS/HR; Start 11/14/16 at 16:00 Daptomycin/Sodium Chloride (Cubicin/NS) 100 ml @ 200 mls/hr Q24H IVPB Last administered on 12/07/16 17:45; Admin Dose 200 MLS/HR; Start 11/14/16 at 17:00 Zolpidem Tartrate (Ambien) 5 mg HS PRN PO INSOMNIA Last administered on 00:38; Admin Dose 5 MG; Start 11/15/16 at 23:30 Loperamide HCl (Imodium Cap) 2 mg QID PRN PO DIARRHEA Last administered on 11/17 12:51; Admin Dose 2 MG; Start 11/16/16 at 16:00 Acetaminophen/ Hydrocodone Bitart ([place] (5/325)) 1 tab Q6H PRN PO pain Last administered on 12/06/16 09:04; Admin Dose 1 TAB; Start 11/22/16 at 12:00 Morphine Sulfate (morphine) 2 mg Q4H PRN IV SEVERE PAIN LEVEL 7-10 Last administered on 12/07/16 22:00; Admin Dose 2 MG; Start 11/23/16 at 12:00 Tacrolimus (Prograf) 2 mg Q12 PO Last administered on 12/08/16 08:45; Admin Dose 2 MG; Start 11/24/16 at 10:00 Ondansetron HCl (Zofran Inj) 4 mg Q4H PRN IV NAUSEA AND/OR VOMITING Last administered on 11/30/16 17:21; Admin Dose 4 MG; Start 11/27/16 at 17:30 Hydralazine HCl (Apresoline) 10 mg Q6H PRN IV ELEVATED BLOOD PRESSURE; Start at 21:00 Hydralazine HCl (Apresoline) 20 mg Q6H PRN IV ELEVATED BLOOD PRESSURE Last administered on 11/27/16 21:42; Admin Dose 20 MG; Start 11/27/16 at 21:00 Benazepril HCl (Lotensin) 10 mg DAILY PO Last administered on 12/08/16 08:44; Admin Dose 10 MG; Start 11/30/16 at 09:00 Ondansetron HCl (Zofran Inj) 4 mg Q4H PRN IV NAUSEA AND/OR VOMITING; Start at 15:30 Clopidogrel Bisulfate 75 mg 75 mg DAILY PO Last administered on 12/08/16 08:44 ; Admin Dose 75 MG; Start 12/04/16 at 09:00 Sodium Chloride (NS) 1,000 ml @ 70 mls/hr [id number] IV Last administered on 12/08 05:09; Admin Dose 70 MLS/HR; Start 12/07/16 at 00:00 KRISTEN ZIMMERMAN MD Dec 08, 2016 12:09
--- NOTE | 2016-12-08 14:03 | CONS ---
Date/Time of Note Date/Time of Note DATE: 12/08/16 TIME: 14:01 Assessment/Plan Assessment/Plan Chief Complaint/Hosp Course SUBJECTIVE DATA: No acute changes. The patient is awake, looks comfortable. No fevers. ANTIMICROBIALS: Daptomycin, Flagyl, Levaquin. GENERAL: This is a fragile well-developed elderly woman who is alert in no distress. HEENT: Head atraumatic, normocephalic. Sclerae anicteric. Buccal mucosa pink. NECK: Supple. CHEST: Rise symmetrical. Breath sounds clear. HEART: S1, S2. ABDOMEN: Soft, bowel sounds present. EXTREMITIES: With bilateral necrotic gangrenous toes. Dressing intact. ASSESSMENT: 1. Bilateral foot gangrene. Status post revascularization procedure and debridement 2. Hypertension. 3. Diabetes. 4. History of donor transplant in 2009. On immunosuppressive therapy. 5. Anemia. PLAN: The patient remains stable, continue present care, anticipate dc on PO Levaquin and Doxycycline for 2 weeks==> [facility] staff Problems: Consultation Date/Type/Reason Admit Date/Time Nov 12, 2016 at 10:06 Initial Consult Date 11/13/16 Type of Consultation: ID Referring Provider: KRISTIN HALL MD Exam/Review of Systems Vital Signs Vitals Vital Signs Date Time Temp Pulse Resp B/P Pulse Ox O2 Delivery O2 Flow Rate FiO2 12/08/16 08:03 97.9 75 16 162/85 100 12/07/16 16:10 Room Air Intake and Output 12/07/16 12/07/16 12/08/16 15:00 23:00 07:00 Intake Total 950 ml 440 ml 1350 ml Output Total 15 ml Balance 935 ml 440 ml 1350 ml Results Result Diagram: 12/07/16 0610 12/07/16 0610 Medications Medications Current Medications Acetaminophen (Tylenol Tab) 650 mg Q6H PRN PO PAIN LEVEL 1-3 OR FEVER; Start at 16:00 Pantoprazole (Protonix Tab) 40 mg DAILY@06 PO Last administered on 12/08/16 05 :09; Admin Dose 40 MG; Start 11/13/16 at 06:00 Aspirin (Halfprin) 81 mg DAILY PO Last administered on 12/08/16 08:44; Admin Dose 81 MG; Start 11/13/16 at 09:00 Diltiazem HCl (Cardizem Cd) 180 mg DAILY PO Last administered on 12/08/16 08: 43; Admin Dose 180 MG; Start 11/13/16 at 09:00 Famotidine (Pepcid) 40 mg HS PO Last administered on 12/07/16 21:38; Admin Dose 40 MG; Start 11/12/16 at 21:00 Folic Acid (Folic Acid) 1 mg DAILY PO Last administered on 12/08/16 08:44; Admin Dose 1 MG; Start 11/13/16 at 09:00 Mycophenolate Mofetil (Cellcept) 1,000 mg BID PO Last administered on 08:43; Admin Dose 1,000 MG; Start 11/12/16 at 21:00 Metoprolol Tartrate (Lopressor) 75 mg BID PO Last administered on 12/08/16 08: 44; Admin Dose 75 MG; Start 11/12/16 at 21:00 Gabapentin 100 mg 100 mg TID PO Last administered on 12/08/16 12:45; Admin Dose 100 MG; Start 11/12/16 at 21:00 Levofloxacin/ Dextrose 100 ml @ 100 mls/hr Q24H IVPB Last administered on 12/07 21:37; Admin Dose 100 MLS/HR; Start 11/13/16 at 20:30 Metronidazole 100 ml @ 100 mls/hr Q8 IVPB Last administered on 12/08/16 13:02 ; Admin Dose 100 MLS/HR; Start 11/14/16 at 16:00 Daptomycin/Sodium Chloride (Cubicin/NS) 100 ml @ 200 mls/hr Q24H IVPB Last administered on 12/07/16 17:45; Admin Dose 200 MLS/HR; Start 11/14/16 at 17:00 Zolpidem Tartrate (Ambien) 5 mg HS PRN PO INSOMNIA Last administered on 00:38; Admin Dose 5 MG; Start 11/15/16 at 23:30 Loperamide HCl (Imodium Cap) 2 mg QID PRN PO DIARRHEA Last administered on 11/17 12:51; Admin Dose 2 MG; Start 11/16/16 at 16:00 Acetaminophen/ Hydrocodone Bitart ([place] (5/325)) 1 tab Q6H PRN PO pain Last administered on 12/06/16 09:04; Admin Dose 1 TAB; Start 11/22/16 at 12:00 Morphine Sulfate (morphine) 2 mg Q4H PRN IV SEVERE PAIN LEVEL 7-10 Last administered on 12/07/16 22:00; Admin Dose 2 MG; Start 11/23/16 at 12:00 Tacrolimus (Prograf) 2 mg Q12 PO Last administered on 12/08/16 08:45; Admin Dose 2 MG; Start 11/24/16 at 10:00 Ondansetron HCl (Zofran Inj) 4 mg Q4H PRN IV NAUSEA AND/OR VOMITING Last administered on 11/30/16 17:21; Admin Dose 4 MG; Start 11/27/16 at 17:30 Hydralazine HCl (Apresoline) 10 mg Q6H PRN IV ELEVATED BLOOD PRESSURE; Start at 21:00 Hydralazine HCl (Apresoline) 20 mg Q6H PRN IV ELEVATED BLOOD PRESSURE Last administered on 11/27/16 21:42; Admin Dose 20 MG; Start 11/27/16 at 21:00 Benazepril HCl (Lotensin) 10 mg DAILY PO Last administered on 12/08/16 08:44; Admin Dose 10 MG; Start 11/30/16 at 09:00 Ondansetron HCl (Zofran Inj) 4 mg Q4H PRN IV NAUSEA AND/OR VOMITING; Start at 15:30 Clopidogrel Bisulfate 75 mg 75 mg DAILY PO Last administered on 12/08/16 08:44 ; Admin Dose 75 MG; Start 12/04/16 at 09:00 Sodium Chloride (NS) 1,000 ml @ 70 mls/hr [id number] IV Last administered on 12/08 05:09; Admin Dose 70 MLS/HR; Start 12/07/16 at 00:00 JACQUES HUERTA NP Dec 08, 2016 14:03
[2016-12-08 14:36] VITALS: BP 142/75; RESP 18
[2016-12-08] MEDS: DAPTOMYCIN IVPB SCH (17:32)
[2016-12-08] MEDS: SOD CHLORIDE 0.9% IVPB SCH (17:32)
[2016-12-08] MEDS: HYDROCODONE/APAP (5/325) TAB PO PRN (17:37)
[2016-12-08 19:46] VITALS: BP 135/73; RESP 16
[2016-12-08] MEDS: LEVOFLOXACIN 500MG/D5W (PMX) 100 ML IVPB SCH (20:56)
[2016-12-08] MEDS: FAMOTIDINE 20 MG TAB PO SCH (20:57)
[2016-12-08] MEDS: morphine 2 MG INJ IV PRN (21:07)
[2016-12-09 02:04] VITALS: BP 107/58; RESP 16
[2016-12-09] MEDS: morphine 2 MG INJ IV PRN ×2 (02:49→13:05)
[2016-12-09] MEDS: SOD CHLORIDE 0.9% 1,000 ML IV SCH ×2 (02:52→12:50)
[2016-12-09] MEDS: PANTOPRAZOLE (EC) 40 MG TAB PO SCH (05:13)
[2016-12-09] MEDS: metroNIDAZOLE 500 MG/NS (PMX) 100 ML IVPB SCH ×2 (05:13→15:16)
[2016-12-09] MEDS: HYDROCODONE/APAP (5/325) TAB PO PRN ×2 (06:07→17:56)
[2016-12-09 07:16] LABS: BASOPHILS % 0.2 % (0.0-2.0); EOSINOPHILS # 0.1 10^3/ul (0.0-0.5); HEMATOCRIT 33.1 % (37.0-47.0); HEMOGLOBIN 10.5 g/dl (12.0-16.0); LYMPHOCYTES # 0.8 10^3/ul (0.8-2.9); LYMPHOCYTES % 15.8 % (15.0-51.0); MEAN CORPUSCULAR HEMOGLOBIN 27.3 pg (29.0-33.0); MEAN CORPUSCULAR HGB CONC 31.7 g/dl (32.0-37.0); MEAN PLATELET VOLUME 11.9 fl (7.4-10.4); MONOCYTE # 0.8 10^3/ul (0.3-0.9); NEUTROPHILS % 66.6 % (39.0-77.0); PLATELET COUNT 214 10^3/UL (140-415); RED BLOOD COUNT 3.85 10^6/ul (4.20-5.40); RED CELL DISTRIBUTION WIDTH 14.2 % (11.5-14.5); WHITE BLOOD COUNT 5.1 10^3/ul (4.8-10.8)
[2016-12-09 07:35] LABS: CALCIUM 8.9 mg/dl (8.4-10.2); CREATININE 0.58 mg/dl (0.44-1.00); MAGNESIUM 1.5 mg/dl (1.7-2.5); POTASSIUM 4.1 mmol/L (3.5-5.1)
[2016-12-09 08:19] VITALS: BP 98/56; RESP 18
[2016-12-09] MEDS: BENAZEPRIL 10 MG TAB PO SCH (09:00)
[2016-12-09] MEDS: METOPROLOL 25 MG TAB PO SCH (09:00)
[2016-12-09] MEDS: DILTIAZEM (CD) 180 MG CAP PO SCH (09:00)
[2016-12-09] MEDS ORDERED: TACROLIMUS 1 MG CAP PO SCH (09:00)
[2016-12-09] MEDS: MYCOPHENOLATE 250 MG CAP PO SCH (09:35)
[2016-12-09] MEDS: FOLIC ACID 1 MG TAB PO SCH (09:38)
[2016-12-09] MEDS: CLOPIDOGREL 75 MG TAB PO SCH (09:38)
[2016-12-09] MEDS: GABAPENTIN 100 MG CAP PO SCH ×2 (09:38→13:05)
[2016-12-09] MEDS: ASPIRIN (EC) 81 MG TAB PO SCH (09:40)
--- NOTE | 2016-12-09 10:59 | PDOCDIS ---
Discharge Instructions CONDITION Patient Condition: Guarded HOME CARE INSTRUCTIONS: Special Diet: renal FOLLOW UP/APPOINTMENTS Follow-up Plan 1.Follow-up with and in [facility] wound care center weekly for wound check [address] [place] [address] Office 2.Follow up with primary care physician in 1 week If you don't have one please let someone know, we can give you resources that may help you pick one. You may also call your insurance company to assign one to you. Review your medication list with your nurse before leaving and if you need new prescriptions please let your nurse know. I may have made changes to your home medications or given you new prescriptions, please let your primary doctor know as well. Stay compliant with your medications and report any side effects to your PCP or pharmacist. Return to the ER if you have any concerns and cannot reach your doctors or call your insurance company, they usually have a nurse that can help you. 3. Call 911 or go to the nearest emergency room if experiencing loss of consciousness, dizziness, chest pain, shortness of breath, vomiting/abdominal pain, speech difficulties, motor weakness or any unusual symptoms. HELEN ANDREWS NP Dec 09, 2016 10:59
[2016-12-09] MEDS ORDERED: BENA10TA48 PO (11:03)
[2016-12-09] MEDS ORDERED: CLOP75TA28 PO (11:03)
[2016-12-09] MEDS ORDERED: DOXY100T20 PO (11:03)
[2016-12-09] MEDS ORDERED: LEVO500T10 PO (11:03)
[2016-12-09] MEDS ORDERED: METO-448 PO (11:03)
[2016-12-09] MEDS ORDERED: GABA100C14 PO (11:03)
--- NOTE | 2016-12-09 11:07 | PN ---
Date/Time of Note Date/Time of Note DATE: 12/09/16 TIME: 11:07 Assessment/Plan Lines/Catheters IV Catheter Type (from [facility] Peripheral IV Urinary Cath still in place: No Assessment/Plan Chief Complaint/Hosp Course 1.Significant peripheral vascular disease with bilateral foot necrotic open wound with exposed bone and critical limb ischemia . Status post staged vascular interventions. -Status post RIGHT FEM-POP ATHERECTOMY, STENTING AND ANGIOPLASTY 11/27/2016 -status post LEFT FEMPOP ATHERECTOMY, BALLOON ANGIOPLASTY AND STENTING 2016 -Status post Excisional debridement of open necrotic wound of the right and left foot 11/30/16- Plan for another wound debridement with possible wound vacuum placement and plan for application of amniotic tissue to expedite wound healing scheduled for today. -On ASA,Plavix -Weightbearing as tolerated bilaterally with postoperative shoes with physical therapy 2.Status post kidney transplant: - on immunosuppression with Prograf, CellCept -Nephrology on board and will follow recommendations-on Mucomyst for renal prophylaxis for vascular intervention 3. Hypertension. -Continue antihypertensives 4. Chronic anemia. -H&H stable. Will monitor. 5. Peripheral neuropathy. -Continue pain medications 6. History of PAD with status post amputation 4th,5th left toes and 5th right toe DVT prophylaxis: Lovenox PUD prophylaxis: Protonix Plan: Follow-up with vascular recommendation after debridement. Disposition: Discharge planning-senior living facility versus home health. Weightbearing as tolerated bilaterally with postoperative shoes. Would also require a walker. CM to follow. Anticoagulation with aspirin and Plavix for indeterminate period. Case discussed with Problems: Exam/Review of Systems Vital Signs Vitals Vital Signs Date Time Temp Pulse Resp B/P Pulse Ox O2 Delivery O2 Flow Rate FiO2 12/09/16 08:19 97.9 68 18 98/56 100 12/07/16 16:10 Room Air Intake and Output 12/08/16 12/08/16 12/09/16 15:00 23:00 07:00 Intake Total 1360 ml 1200 ml Balance 1360 ml 1200 ml Results Result Diagram: 12/09/16 0614 12/09/16 0615 Results 24 hrs Laboratory Tests Test 12/08/16 15:54 12/09/16 06:14 12/09/16 06:15 Magnesium Level 1.8 1.5 L White Blood Count 5.1 # Red Blood Count 3.85 L Hemoglobin 10.5 L Hematocrit 33.1 L Mean Corpuscular Volume 86.0 Mean Corpuscular Hemoglobin 27.3 L Mean Corpuscular Hemoglobin Concent 31.7 L Red Cell Distribution Width 14.2 Platelet Count 214 Mean Platelet Volume 11.9 H Neutrophils % 66.6 Lymphocytes % 15.8 Monocytes % 16.0 H Eosinophils % 1.0 Basophils % 0.2 Nucleated Red Blood Cells % 0.0 Neutrophils # (Manual) 3 Lymphocytes # 0.8 Monocytes # 0.8 Eosinophils # 0.1 Basophils # 0.0 Nucleated Red Blood Cells # 0.0 Sodium Level 139 Potassium Level 4.1 Chloride Level 104 Carbon Dioxide Level 22 Anion Gap 17 H Blood Urea Nitrogen 6 L Creatinine 0.58 Glucose Level 85 Calcium Level 8.9 Creatine Kinase < 20 L Medications Medications Current Medications Acetaminophen (Tylenol Tab) 650 mg Q6H PRN PO PAIN LEVEL 1-3 OR FEVER; Start at 16:00 Pantoprazole (Protonix Tab) 40 mg DAILY@06 PO Last administered on 12/09/16 05 :13; Admin Dose 40 MG; Start 11/13/16 at 06:00 Aspirin (Halfprin) 81 mg DAILY PO Last administered on 12/09/16 09:40; Admin Dose 81 MG; Start 11/13/16 at 09:00 Diltiazem HCl (Cardizem Cd) 180 mg DAILY PO Last administered on 12/08/16 08: 43; Admin Dose 180 MG; Start 11/13/16 at 09:00 Famotidine (Pepcid) 40 mg HS PO Last administered on 12/08/16 20:57; Admin Dose 40 MG; Start 11/12/16 at 21:00 Folic Acid (Folic Acid) 1 mg DAILY PO Last administered on 12/09/16 09:38; Admin Dose 1 MG; Start 11/13/16 at 09:00 Mycophenolate Mofetil (Cellcept) 1,000 mg BID PO Last administered on 09:35; Admin Dose 1,000 MG; Start 11/12/16 at 21:00 Metoprolol Tartrate (Lopressor) 75 mg BID PO Last administered on 12/08/16 20: 57; Admin Dose 75 MG; Start 11/12/16 at 21:00 Gabapentin 100 mg 100 mg TID PO Last administered on 12/09/16 09:38; Admin Dose 100 MG; Start 11/12/16 at 21:00 Levofloxacin/ Dextrose 100 ml @ 100 mls/hr Q24H IVPB Last administered on 12/08 20:56; Admin Dose 100 MLS/HR; Start 11/13/16 at 20:30 Metronidazole 100 ml @ 100 mls/hr Q8 IVPB Last administered on 12/09/16 05:13 ; Admin Dose 100 MLS/HR; Start 11/14/16 at 16:00 Daptomycin/Sodium Chloride (Cubicin/NS) 100 ml @ 200 mls/hr Q24H IVPB Last administered on 12/08/16 17:32; Admin Dose 200 MLS/HR; Start 11/14/16 at 17:00 Zolpidem Tartrate (Ambien) 5 mg HS PRN PO INSOMNIA Last administered on 00:38; Admin Dose 5 MG; Start 11/15/16 at 23:30 Loperamide HCl (Imodium Cap) 2 mg QID PRN PO DIARRHEA Last administered on 11/17 12:51; Admin Dose 2 MG; Start 11/16/16 at 16:00 Acetaminophen/ Hydrocodone Bitart ([place] (5/325)) 1 tab Q6H PRN PO pain Last administered on 12/09/16 06:07; Admin Dose 1 TAB; Start 11/22/16 at 12:00 Morphine Sulfate (morphine) 2 mg Q4H PRN IV SEVERE PAIN LEVEL 7-10 Last administered on 12/09/16 02:49; Admin Dose 2 MG; Start 11/23/16 at 12:00 Ondansetron HCl (Zofran Inj) 4 mg Q4H PRN IV NAUSEA AND/OR VOMITING Last administered on 11/30/16 17:21; Admin Dose 4 MG; Start 11/27/16 at 17:30 Hydralazine HCl (Apresoline) 10 mg Q6H PRN IV ELEVATED BLOOD PRESSURE; Start at 21:00 Hydralazine HCl (Apresoline) 20 mg Q6H PRN IV ELEVATED BLOOD PRESSURE Last administered on 11/27/16 21:42; Admin Dose 20 MG; Start 11/27/16 at 21:00 Benazepril HCl (Lotensin) 10 mg DAILY PO Last administered on 12/08/16 08:44; Admin Dose 10 MG; Start 11/30/16 at 09:00 Ondansetron HCl (Zofran Inj) 4 mg Q4H PRN IV NAUSEA AND/OR VOMITING; Start at 15:30 Clopidogrel Bisulfate 75 mg 75 mg DAILY PO Last administered on 12/09/16 09:38 ; Admin Dose 75 MG; Start 12/04/16 at 09:00 Sodium Chloride (NS) 1,000 ml @ 70 mls/hr [id number] IV Last administered on 12/09 02:52; Admin Dose 70 MLS/HR; Start 12/07/16 at 00:00 Clonidine (Catapres) 0.1 mg Q4H PRN PO htn; Start 12/08/16 at 14:30 Tacrolimus (Prograf) 2 mg Q12 PO Last administered on 12/09/16 09:40; Admin Dose 2 MG; Start 12/09/16 at 09:00 HELEN ANDREWS NP Dec 09, 2016 11:07
[2016-12-09] MEDS ORDERED: MAGNESIUM SULFATE 2 GM/50 ML 50 ML IVPB ONE (12:00)
--- NOTE | 2016-12-09 12:48 | CONS ---
Date/Time of Note Date/Time of Note DATE: 12/09/16 TIME: 12:46 Assessment/Plan Assessment/Plan Chief Complaint/Hosp Course IMP: 1. Pre-op for LE vascular procedure. Nl EF and no ischemia by lexiscan 11/13 only scar. Ok to proceed with surgery from CV standpoint at moderate risk 2.HTN-very labile with holding of some anti-hypertensives today 3,CAD 4.PAD with nonhealing LE wounds. Now s/p [employer]/athrectomy/stenting and now POD #0 s/p LE bilateral debridemeny 5. -moderate by echo this admit Recc: -Now on med-surg -serial ecg's -Continue dilt/BB/ACEI as tolerated only and follow labile BP with possible need to decrease dose -local wound care -Follow volume status closely Problems: Consultation Date/Type/Reason Admit Date/Time Nov 12, 2016 at 10:06 Initial Consult Date 11/12/16 Type of Consultation: cardiology Reason for Consultation HTN Referring Provider: KRISTIN HALL MD Exam/Review of Systems Vital Signs Vitals Vital Signs Date Time Temp Pulse Resp B/P Pulse Ox O2 Delivery O2 Flow Rate FiO2 12/09/16 08:19 97.9 68 18 98/56 100 12/07/16 16:10 Room Air Intake and Output 12/08/16 12/08/16 12/09/16 15:00 23:00 07:00 Intake Total 1360 ml 1200 ml Balance 1360 ml 1200 ml Exam Review of Systems: CONSTITUTIONAL: No fevers, chills. PULMONARY: No sob CARDIOVASCULAR: No chest pain/palpitations GASTROINTESTINAL: No nausea/vomiting. GENITOURINARY: No hematuria/dysuria. MUSCULOSKELETAL: mild pain in feet bilateral PSYCHIATRIC: The patient denies depression. NEUROLOGIC: No weakness Constitutional: alert Psych: no complaints Head: normocephalic ENMT: mucosa pink and moist Neck: jvd (8-9 cm water), supple Respiratory: diminished breath sounds (at bases/B) Cardiovascular: regular rate and rhythm Gastrointestinal: non-tender, soft Musculoskeletal: muscle tone (normal) Extremities: edema (none), other (feet covered by dressing bilateral) Neurological: other (No focal deficits) Results Result Diagram: 12/09/16 0614 12/09/16 0615 Results 24 hrs Laboratory Tests Test 12/08/16 15:54 12/09/16 06:14 12/09/16 06:15 Magnesium Level 1.8 1.5 L White Blood Count 5.1 # Red Blood Count 3.85 L Hemoglobin 10.5 L Hematocrit 33.1 L Mean Corpuscular Volume 86.0 Mean Corpuscular Hemoglobin 27.3 L Mean Corpuscular Hemoglobin Concent 31.7 L Red Cell Distribution Width 14.2 Platelet Count 214 Mean Platelet Volume 11.9 H Neutrophils % 66.6 Lymphocytes % 15.8 Monocytes % 16.0 H Eosinophils % 1.0 Basophils % 0.2 Nucleated Red Blood Cells % 0.0 Neutrophils # (Manual) 3 Lymphocytes # 0.8 Monocytes # 0.8 Eosinophils # 0.1 Basophils # 0.0 Nucleated Red Blood Cells # 0.0 Sodium Level 139 Potassium Level 4.1 Chloride Level 104 Carbon Dioxide Level 22 Anion Gap 17 H Blood Urea Nitrogen 6 L Creatinine 0.58 Glucose Level 85 Calcium Level 8.9 Creatine Kinase < 20 L Medications Medications Current Medications Acetaminophen (Tylenol Tab) 650 mg Q6H PRN PO PAIN LEVEL 1-3 OR FEVER; Start at 16:00 Pantoprazole (Protonix Tab) 40 mg DAILY@06 PO Last administered on 12/09/16 05 :13; Admin Dose 40 MG; Start 11/13/16 at 06:00 Aspirin (Halfprin) 81 mg DAILY PO Last administered on 12/09/16 09:40; Admin Dose 81 MG; Start 11/13/16 at 09:00 Diltiazem HCl (Cardizem Cd) 180 mg DAILY PO Last administered on 12/08/16 08: 43; Admin Dose 180 MG; Start 11/13/16 at 09:00 Famotidine (Pepcid) 40 mg HS PO Last administered on 12/08/16 20:57; Admin Dose 40 MG; Start 11/12/16 at 21:00 Folic Acid (Folic Acid) 1 mg DAILY PO Last administered on 12/09/16 09:38; Admin Dose 1 MG; Start 11/13/16 at 09:00 Mycophenolate Mofetil (Cellcept) 1,000 mg BID PO Last administered on 09:35; Admin Dose 1,000 MG; Start 11/12/16 at 21:00 Metoprolol Tartrate (Lopressor) 75 mg BID PO Last administered on 12/08/16 20: 57; Admin Dose 75 MG; Start 11/12/16 at 21:00 Gabapentin 100 mg 100 mg TID PO Last administered on 12/09/16 09:38; Admin Dose 100 MG; Start 11/12/16 at 21:00 Levofloxacin/ Dextrose 100 ml @ 100 mls/hr Q24H IVPB Last administered on 12/08 20:56; Admin Dose 100 MLS/HR; Start 11/13/16 at 20:30 Metronidazole 100 ml @ 100 mls/hr Q8 IVPB Last administered on 12/09/16 05:13 ; Admin Dose 100 MLS/HR; Start 11/14/16 at 16:00 Daptomycin/Sodium Chloride (Cubicin/NS) 100 ml @ 200 mls/hr Q24H IVPB Last administered on 12/08/16 17:32; Admin Dose 200 MLS/HR; Start 11/14/16 at 17:00 Zolpidem Tartrate (Ambien) 5 mg HS PRN PO INSOMNIA Last administered on 00:38; Admin Dose 5 MG; Start 11/15/16 at 23:30 Loperamide HCl (Imodium Cap) 2 mg QID PRN PO DIARRHEA Last administered on 11/17 12:51; Admin Dose 2 MG; Start 11/16/16 at 16:00 Acetaminophen/ Hydrocodone Bitart ([place] (5/325)) 1 tab Q6H PRN PO pain Last administered on 12/09/16 06:07; Admin Dose 1 TAB; Start 11/22/16 at 12:00 Morphine Sulfate (morphine) 2 mg Q4H PRN IV SEVERE PAIN LEVEL 7-10 Last administered on 12/09/16 02:49; Admin Dose 2 MG; Start 11/23/16 at 12:00 Ondansetron HCl (Zofran Inj) 4 mg Q4H PRN IV NAUSEA AND/OR VOMITING Last administered on 11/30/16 17:21; Admin Dose 4 MG; Start 11/27/16 at 17:30 Hydralazine HCl (Apresoline) 10 mg Q6H PRN IV ELEVATED BLOOD PRESSURE; Start at 21:00 Hydralazine HCl (Apresoline) 20 mg Q6H PRN IV ELEVATED BLOOD PRESSURE Last administered on 11/27/16 21:42; Admin Dose 20 MG; Start 11/27/16 at 21:00 Benazepril HCl (Lotensin) 10 mg DAILY PO Last administered on 12/08/16 08:44; Admin Dose 10 MG; Start 11/30/16 at 09:00 Ondansetron HCl (Zofran Inj) 4 mg Q4H PRN IV NAUSEA AND/OR VOMITING; Start at 15:30 Clopidogrel Bisulfate 75 mg 75 mg DAILY PO Last administered on 12/09/16 09:38 ; Admin Dose 75 MG; Start 12/04/16 at 09:00 Sodium Chloride (NS) 1,000 ml @ 70 mls/hr [id number] IV Last administered on 12/09 02:52; Admin Dose 70 MLS/HR; Start 12/07/16 at 00:00 Clonidine (Catapres) 0.1 mg Q4H PRN PO htn; Start 12/08/16 at 14:30 Tacrolimus 2 mg 2 mg Q12 PO Last administered on 12/09/16 09:40; Admin Dose 2 MG; Start 12/09/16 at 09:00 Magnesium Sulfate (Magnesium Sulfate 2 Gm/50 ml) 50 ml @ 25 mls/hr ONCE ONCE IVPB ; Start 12/09/16 at 12:00; Stop 12/09/16 at 13:59 TIMOTHY CORTES Dec 09, 2016 12:48
[2016-12-09 14:26] VITALS: BP 119/96; RESP 18
--- NOTE | 2016-12-09 15:03 | CONS ---
Date/Time of Note Date/Time of Note DATE: 12/09/16 TIME: 15:02 Assessment/Plan Assessment/Plan Chief Complaint/Hosp Course SUBJECTIVE DATA: No acute changes. The patient is awake, looks comfortable. No fevers. Temperature 98 pulse 72 respirations 18 blood pressure 119/96 saturation 100 on room air WBC 5.1 H&H 10.5 and 33.1 platelets 214 no shift BUN 6 creatinine 0.58 ANTIMICROBIALS: Daptomycin, Flagyl, Levaquin. GENERAL: This is a fragile well-developed elderly woman who is alert in no distress. HEENT: Head atraumatic, normocephalic. Sclerae anicteric. Buccal mucosa pink. NECK: Supple. CHEST: Rise symmetrical. Breath sounds clear. HEART: S1, S2. ABDOMEN: Soft, bowel sounds present. EXTREMITIES: With bilateral necrotic gangrenous toes. Dressing intact. ASSESSMENT: 1. Bilateral foot gangrene. Status post revascularization procedure and debridement 2. Hypertension. 3. Diabetes. 4. History of donor transplant in 2009. On immunosuppressive therapy. 5. Anemia. PLAN: The patient remains stable, continue present care, ok dc on PO Levaquin and Doxycycline for 12 more days==> DW Dr Erik CALVO staff Problems: Consultation Date/Type/Reason Admit Date/Time Nov 12, 2016 at 10:06 Initial Consult Date 11/13/16 Type of Consultation: id Referring Provider: KRISTIN HALL MD Exam/Review of Systems Vital Signs Vitals Vital Signs Date Time Temp Pulse Resp B/P Pulse Ox O2 Delivery O2 Flow Rate FiO2 12/09/16 14:26 98.0 72 18 119/96 100 12/07/16 16:10 Room Air Intake and Output 12/08/16 12/08/16 12/09/16 15:00 23:00 07:00 Intake Total 1360 ml 1200 ml Balance 1360 ml 1200 ml Results Result Diagram: 12/09/16 0614 12/09/16 0615 Results 24 hrs Laboratory Tests Test 12/08/16 15:54 12/09/16 06:14 12/09/16 06:15 Magnesium Level 1.8 1.5 L White Blood Count 5.1 # Red Blood Count 3.85 L Hemoglobin 10.5 L Hematocrit 33.1 L Mean Corpuscular Volume 86.0 Mean Corpuscular Hemoglobin 27.3 L Mean Corpuscular Hemoglobin Concent 31.7 L Red Cell Distribution Width 14.2 Platelet Count 214 Mean Platelet Volume 11.9 H Neutrophils % 66.6 Lymphocytes % 15.8 Monocytes % 16.0 H Eosinophils % 1.0 Basophils % 0.2 Nucleated Red Blood Cells % 0.0 Neutrophils # (Manual) 3 Lymphocytes # 0.8 Monocytes # 0.8 Eosinophils # 0.1 Basophils # 0.0 Nucleated Red Blood Cells # 0.0 Sodium Level 139 Potassium Level 4.1 Chloride Level 104 Carbon Dioxide Level 22 Anion Gap 17 H Blood Urea Nitrogen 6 L Creatinine 0.58 Glucose Level 85 Calcium Level 8.9 Creatine Kinase < 20 L Medications Medications Current Medications Acetaminophen (Tylenol Tab) 650 mg Q6H PRN PO PAIN LEVEL 1-3 OR FEVER; Start at 16:00 Pantoprazole (Protonix Tab) 40 mg DAILY@06 PO Last administered on 12/09/16 05 :13; Admin Dose 40 MG; Start 11/13/16 at 06:00 Aspirin (Halfprin) 81 mg DAILY PO Last administered on 12/09/16 09:40; Admin Dose 81 MG; Start 11/13/16 at 09:00 Diltiazem HCl (Cardizem Cd) 180 mg DAILY PO Last administered on 12/08/16 08: 43; Admin Dose 180 MG; Start 11/13/16 at 09:00 Famotidine (Pepcid) 40 mg HS PO Last administered on 12/08/16 20:57; Admin Dose 40 MG; Start 11/12/16 at 21:00 Folic Acid (Folic Acid) 1 mg DAILY PO Last administered on 12/09/16 09:38; Admin Dose 1 MG; Start 11/13/16 at 09:00 Mycophenolate Mofetil (Cellcept) 1,000 mg BID PO Last administered on 09:35; Admin Dose 1,000 MG; Start 11/12/16 at 21:00 Metoprolol Tartrate (Lopressor) 75 mg BID PO Last administered on 12/08/16 20: 57; Admin Dose 75 MG; Start 11/12/16 at 21:00 Gabapentin 100 mg 100 mg TID PO Last administered on 12/09/16 13:05; Admin Dose 100 MG; Start 11/12/16 at 21:00 Levofloxacin/ Dextrose 100 ml @ 100 mls/hr Q24H IVPB Last administered on 12/08 20:56; Admin Dose 100 MLS/HR; Start 11/13/16 at 20:30 Metronidazole 100 ml @ 100 mls/hr Q8 IVPB Last administered on 12/09/16 05:13 ; Admin Dose 100 MLS/HR; Start 11/14/16 at 16:00 Daptomycin/Sodium Chloride (Cubicin/NS) 100 ml @ 200 mls/hr Q24H IVPB Last administered on 12/08/16 17:32; Admin Dose 200 MLS/HR; Start 11/14/16 at 17:00 Zolpidem Tartrate (Ambien) 5 mg HS PRN PO INSOMNIA Last administered on 00:38; Admin Dose 5 MG; Start 11/15/16 at 23:30 Loperamide HCl (Imodium Cap) 2 mg QID PRN PO DIARRHEA Last administered on 11/17 12:51; Admin Dose 2 MG; Start 11/16/16 at 16:00 Acetaminophen/ Hydrocodone Bitart ([place] (5/325)) 1 tab Q6H PRN PO pain Last administered on 12/09/16 06:07; Admin Dose 1 TAB; Start 11/22/16 at 12:00 Morphine Sulfate (morphine) 2 mg Q4H PRN IV SEVERE PAIN LEVEL 7-10 Last administered on 12/09/16 13:05; Admin Dose 2 MG; Start 11/23/16 at 12:00 Ondansetron HCl (Zofran Inj) 4 mg Q4H PRN IV NAUSEA AND/OR VOMITING Last administered on 11/30/16 17:21; Admin Dose 4 MG; Start 11/27/16 at 17:30 Hydralazine HCl (Apresoline) 10 mg Q6H PRN IV ELEVATED BLOOD PRESSURE; Start at 21:00 Hydralazine HCl (Apresoline) 20 mg Q6H PRN IV ELEVATED BLOOD PRESSURE Last administered on 11/27/16 21:42; Admin Dose 20 MG; Start 11/27/16 at 21:00 Benazepril HCl (Lotensin) 10 mg DAILY PO Last administered on 12/08/16 08:44; Admin Dose 10 MG; Start 11/30/16 at 09:00 Ondansetron HCl (Zofran Inj) 4 mg Q4H PRN IV NAUSEA AND/OR VOMITING; Start at 15:30 Clopidogrel Bisulfate 75 mg 75 mg DAILY PO Last administered on 12/09/16 09:38 ; Admin Dose 75 MG; Start 12/04/16 at 09:00 Sodium Chloride (NS) 1,000 ml @ 70 mls/hr [id number] IV Last administered on 12/09 12:50; Admin Dose 70 MLS/HR; Start 12/07/16 at 00:00 Clonidine (Catapres) 0.1 mg Q4H PRN PO htn; Start 12/08/16 at 14:30 Tacrolimus (Prograf) 2 mg Q12 PO Last administered on 12/09/16 09:40; Admin Dose 2 MG; Start 12/09/16 at 09:00 JACQUES HUERTA NP Dec 09, 2016 15:03
--- NOTE | 2016-12-09 15:16 | DS ---
Date/Time of Note Date/Time of Note DATE: 12/09/16 TIME: 15:10 Discharge Summary Admission/Discharge Info Admit Date/Time Nov 12, 2016 at 10:06 Discharge Date/Time Discharge Diagnosis 1.Significant peripheral vascular disease with bilateral foot necrotic open wound with exposed bone and critical limb ischemia . Status post staged vascular interventions. -Status post RIGHT FEM-POP ATHERECTOMY, STENTING AND ANGIOPLASTY 11/27/2016 -status post LEFT FEMPOP ATHERECTOMY, BALLOON ANGIOPLASTY AND STENTING 2016 -Status post Excisional debridement of open necrotic wound of the right and left foot 11/30/16 -Bilateral lower extremity dbridements with amniotic tissue application on 12/07. 2.Status post kidney transplant: on immunosuppression with Prograf, CellCept 3. Hypertension. 4. Chronic anemia. 5. Peripheral neuropathy. 6. History of PAD with status post amputation 4th,5th left toes and 5th right toe Patient Condition: Stable Consults ,Vascular ,ID ,ID ,nephrology Procedures RIGHT FEM-POP ATHERECTOMY, STENTING AND ANGIOPLASTY 11/27/2016 Excisional debridement of open necrotic wound of the right and left foot . LEFT FEMPOP ATHERECTOMY, BALLOON ANGIOPLASTY AND STENTING 12/02/2016 Bilateral lower extremity dbridements with amniotic tissue application on 2016. Hospital Course This is a 61-year-old female with a past medical history of extensive aortoiliac atherosclerotic disease and bilateral lower extremity atherosclerosis with gangrene, hypertension, history of end- stage renal disease , a kidney transplant recipient in 2009 on immunosuppression therapy who presented to the emergency room with worsening bilateral foot pain and has developed gangrene of the left first toe after originally presenting with a blue toe. The patient also somewhat noncompliant and does not necessarily follow up with her vascular clinic. Patient was started on broad-spectrum antibiotics in the emergency room and admitted for further evaluation and management. ID, podiatry and vascular consult was called. Patient's CT angiography with extensive infrainguinal disease bilaterally and will require intervention. Unfortunately she had no vein conduit to perform limb salvage revascularization and being chronically immunosuppressed secondary to her kidney transplant limits performing bypass with upper extremity vein graft. Therefore, will plan on staged procedures with endovascular interventions with anesthesia. During the course of hospitalization, her vascular status was optimized with antihypertensives, diet, blood glucose monitoring and antiplatelets. Wound care was continued per podiatry colleagues. Patient also had cardiology preop evaluation. She was continued on dilt/BB/ACEI as tolerated. Patient had undergone RIGHT FEM-POP ATHERECTOMY, STENTING AND ANGIOPLASTY 11/27/20162016followed by excisional debridement of open necrotic wound of the right and left foot 11/30/16. She had also undergone LEFT FEMPOP ATHERECTOMY, BALLOON ANGIOPLASTY AND STENTING 12/02/2016 followed by followed by Bilateral lower extremity dbridements with amniotic tissue application on 12/07/2016. Patient tolerated procedure well. She had a stable postoperative course. Kidney function remained stable. Patient was closely monitored by our nephrology colleagues. She was evaluated by multidisciplinary team including physical therapy. Patient had good tolerance to PT. She was able to tolerate diet as well. Overall, patient feels back to baseline and there is no further inpatient workup indicated at this time. Patient is medically stable to be discharged from our vascular colleagues point of view with outpatient monitoring. Case management was consulted for home health for home safety evaluation. Patient would require 2 more weeks on Levaquin and doxycycline per ID colleagues. Disposition: Patient will be discharged home with home health service. She was also provided with a walker and postoperative shoes. Upcoming appointment with vascular and podiatry colleagues was confirmed for 12/11/2016 at amputation prevention clinic at [facility]. Patient verbalized discharge instructions. Condition at time of discharge is stable. Approximately 60 minutes was spent in coordinating the discharge on this patient. Case discussed with Dr. Ramirez [facility] [place] Active Scripts Doxycycline Hyclate* (Doxycycline Hyclate*) 100 Mg Tablet., 100 MG PO BID for 14 Days, #28 TAB Prov:ANDREWSKODAKA V. [employer] 12/09/16 Levofloxacin* (Levofloxacin*) 500 Mg Tablet, 500 MG PO DAILY for 14 Days, #28 TAB Prov:ANDREWSKODAKA V. MA[employer] 12/09/16 Gabapentin* (Gabapentin*) 100 Mg Capsule, 100 MG PO TID, #90 CAP Prov:ANDREWSHELEN V. MA[employer]GER [employer] 12/09/16 Metoprolol Tartrate* (Lopressor*) 25 Mg Tab, 75 MG PO BID, #60 TAB Prov:ANDREWSHELEN V. [employer] 12/09/16 Benazepril Hcl* (Benazepril Hcl*) 10 Mg Tablet, 10 MG PO DAILY, #30 TAB Prov:HELEN ANDREWS V. [employer] 12/09/16 Clopidogrel Bisulfate (Clopidogrel) 75 Mg Tablet, 75 MG PO DAILY, #30 TAB Prov:HELEN ANDREWS [employer]. [employer] 12/09/16 Reported Medications Omeprazole* (Omeprazole*) 40 Mg Capsule.dr, 40 MG PO DAILY, #30 CAP 11/12/16 Aspirin (Low Dose Aspirin) 81 Mg Tablet.dr, 81 MG PO DAILY, #30 TAB 11/12/16 Folic Acid* (Folic Acid*) 1 Mg Tablet, 1 MG PO DAILY, TAB 11/12/16 Hydrocodone/Acetaminophen ([place] 5-325 Tablet) 1 Each Tablet, 1 EACH PO Q6 Y for PAIN, TAB 11/12/16 Famotidine* (Famotidine*) 40 Mg Tablet, 40 MG PO HS, #30 TAB 11/12/16 Tacrolimus* (Tacrolimus*) 1 Mg Capsule, 2 MG PO Q12, CAP 09/26/16 Cholecalciferol* (Vitamin D3*) 1,000 Unit Tablet, 1 TAB PO DAILY, #30 06/03/16 Mycophenolate Mofetil (Cellcept) 250 Mg Capsule, 1000 MG PO BID 07/31/12 Diltiazem Hcl (Diltiazem Er) 180 Mg Capsule.cr, 180 MG PO DAILY 07/30/12 Discontinued Reported Medications Metoprolol Tartrate* (Lopressor*) 50 Mg Tab, 50 MG PO BID, #60 TAB 09/26/16 Follow-up Plan HOME CARE INSTRUCTIONS: Special Diet: renal FOLLOW UP/APPOINTMENTS Follow-up Plan 1.Follow-up with and in [facility] wound care center weekly for wound check [address] [place], [place] [id number] Office 2.Follow up with primary care physician in 1 week If you don't have one please let someone know, we can give you resources that may help you pick one. You may also call your insurance company to assign one to you. Review your medication list with your nurse before leaving and if you need new prescriptions please let your nurse know. I may have made changes to your home medications or given you new prescriptions, please let your primary doctor know as well. Stay compliant with your medications and report any side effects to your PCP or pharmacist. Return to the ER if you have any concerns and cannot reach your doctors or call your insurance company, they usually have a nurse that can help you. 3. Call 911 or go to the nearest emergency room if experiencing loss of consciousness, dizziness, chest pain, shortness of breath, vomiting/abdominal pain, speech difficulties, motor weakness or any unusual symptoms. Primary Care Provider Guicho Nowak Pending Labs Laboratory Tests Test 12/08/16 15:54 12/09/16 06:14 12/09/16 06:15 Magnesium Level 1.8mg/dl (1.7-2.5) 1.5mg/dl (1.7-2.5) White Blood Count 5.110^3/ul (4.8-10.8) Red Blood Count 3.8510^6/ul (4.20-5.40) Hemoglobin 10.5g/dl (12.0-16.0) Hematocrit 33.1% (37.0-47.0) Mean Corpuscular Volume 86.0fl (82.0-101.0) Mean Corpuscular Hemoglobin 27.3pg (29.0-33.0) Mean Corpuscular Hemoglobin Concent 31.7g/dl (32.0-37.0) Red Cell Distribution Width 14.2% (11.5-14.5) Platelet Count 96558^3/UL (140-415) Mean Platelet Volume 11.9fl (7.4-10.4) Neutrophils % 66.6% (39.0-77.0) Lymphocytes % 15.8% (15.0-51.0) Monocytes % 16.0% (0.0-11.0) Eosinophils % 1.0% (0.0-7.0) Basophils % 0.2% (0.0-2.0) Nucleated Red Blood Cells % 0.0/100WBC (0.0-0.0) Neutrophils # (Manual) 310^3/ul (1.7-7.5) Lymphocytes # 0.810^3/ul (0.8-2.9) Monocytes # 0.810^3/ul (0.3-0.9) Eosinophils # 0.110^3/ul (0.0-0.5) Basophils # 0.010^3/ul (0.0-0.1) Nucleated Red Blood Cells # 0.010^3/ul (0.0-0.0) Sodium Level 139mmol/L (135-144) Potassium Level 4.1mmol/L (3.5-5.1) Chloride Level 104mmol/L (97-110) Carbon Dioxide Level 22mmol/L (21-31) Anion Gap 17 (8-16) Blood Urea Nitrogen 6mg/dl (7-20) Creatinine 0.58mg/dl (0.44-1.00) Glucose Level 85mg/dl (70-220) Calcium Level 8.9mg/dl (8.4-10.2) Creatine Kinase < 20IU/L (23-200) HELEN ANDREWS NP Dec 09, 2016 15:16
[2016-12-09] MEDS: DAPTOMYCIN IVPB SCH (17:51)
[2016-12-09] MEDS: SOD CHLORIDE 0.9% IVPB SCH (17:51)
--- NOTE | 2016-12-09 18:40 | CONS ---
Date/Time of Note Date/Time of Note DATE: 12/09/16 TIME: 18:39 Assessment/Plan Assessment/Plan Additional Assessment/Plan 1. 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 h/o donor kidney transplant in 2009 at [facility], currently on immunosuppression with Prograf, CellCept 4. 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 History of hypertension. 6. History of diabetes mellitus. 7. History of previous left upper extremity arteriovenous fistula. 8. Mild Metabolic acidosis, 9. Electrolyte imbalance- Hypercalcemia- resolved ,Hypokalemia- resolved, Hypomagnesemia- resolved Plan: IV abx as per Infectious disease service daptomycin s/p LE angiogram, cr stable, no IVF< no mucomyst needed Continue current immunosuppresion with prograf,cellcept, no prednisone due to hypercalcemia will continue to follow up ok to d/c from renal point of view, follow up with me in clinic in 2 weeks Consultation Date/Type/Reason Admit Date/Time Nov 12, 2016 at 10:06 Initial Consult Date 11/12/16 Type of Consultation: NEPHROLOGY Referring Provider: KRISTIN HALL MD Exam/Review of Systems Vital Signs Vitals Vital Signs Date Time Temp Pulse Resp B/P Pulse Ox O2 Delivery O2 Flow Rate FiO2 12/09/16 14:26 98.0 72 18 119/96 100 12/07/16 16:10 Room Air Intake and Output 12/08/16 12/08/16 12/09/16 15:00 23:00 07:00 Intake Total 1360 ml 1200 ml Balance 1360 ml 1200 ml Exam HEENT: Unremarkable -- NECK: Supple, trachea midline. CHEST: Rise symmetrical, without dyspnea on observation HEART: Pulse RRR ABDOMEN: Soft, benign EXTREMITIES: Warm -- gangrenous toes Results Result Diagram: 12/09/16 0614 12/09/16 0615 Results 24 hrs Laboratory Tests Test 12/09/16 06:14 12/09/16 06:15 White Blood Count 5.1 # Red Blood Count 3.85 L Hemoglobin 10.5 L Hematocrit 33.1 L Mean Corpuscular Volume 86.0 Mean Corpuscular Hemoglobin 27.3 L Mean Corpuscular Hemoglobin Concent 31.7 L Red Cell Distribution Width 14.2 Platelet Count 214 Mean Platelet Volume 11.9 H Neutrophils % 66.6 Lymphocytes % 15.8 Monocytes % 16.0 H Eosinophils % 1.0 Basophils % 0.2 Nucleated Red Blood Cells % 0.0 Neutrophils # (Manual) 3 Lymphocytes # 0.8 Monocytes # 0.8 Eosinophils # 0.1 Basophils # 0.0 Nucleated Red Blood Cells # 0.0 Sodium Level 139 Potassium Level 4.1 Chloride Level 104 Carbon Dioxide Level 22 Anion Gap 17 H Blood Urea Nitrogen 6 L Creatinine 0.58 Glucose Level 85 Calcium Level 8.9 Magnesium Level 1.5 L Creatine Kinase < 20 L Medications Medications Current Medications Acetaminophen (Tylenol Tab) 650 mg Q6H PRN PO PAIN LEVEL 1-3 OR FEVER; Start at 16:00 Pantoprazole (Protonix Tab) 40 mg DAILY@06 PO Last administered on 12/09/16 05 :13; Admin Dose 40 MG; Start 11/13/16 at 06:00 Aspirin (Halfprin) 81 mg DAILY PO Last administered on 12/09/16 09:40; Admin Dose 81 MG; Start 11/13/16 at 09:00 Diltiazem HCl (Cardizem Cd) 180 mg DAILY PO Last administered on 12/08/16 08: 43; Admin Dose 180 MG; Start 11/13/16 at 09:00 Famotidine (Pepcid) 40 mg HS PO Last administered on 12/08/16 20:57; Admin Dose 40 MG; Start 11/12/16 at 21:00 Folic Acid (Folic Acid) 1 mg DAILY PO Last administered on 12/09/16 09:38; Admin Dose 1 MG; Start 11/13/16 at 09:00 Mycophenolate Mofetil (Cellcept) 1,000 mg BID PO Last administered on 09:35; Admin Dose 1,000 MG; Start 11/12/16 at 21:00 Metoprolol Tartrate (Lopressor) 75 mg BID PO Last administered on 12/08/16 20: 57; Admin Dose 75 MG; Start 11/12/16 at 21:00 Gabapentin 100 mg 100 mg TID PO Last administered on 12/09/16 13:05; Admin Dose 100 MG; Start 11/12/16 at 21:00 Levofloxacin/ Dextrose 100 ml @ 100 mls/hr Q24H IVPB Last administered on 12/08 20:56; Admin Dose 100 MLS/HR; Start 11/13/16 at 20:30 Metronidazole 100 ml @ 100 mls/hr Q8 IVPB Last administered on 12/09/16 15:16 ; Admin Dose 100 MLS/HR; Start 11/14/16 at 16:00 Daptomycin/Sodium Chloride (Cubicin/NS) 100 ml @ 200 mls/hr Q24H IVPB Last administered on 12/09/16 17:51; Admin Dose 200 MLS/HR; Start 11/14/16 at 17:00 Zolpidem Tartrate (Ambien) 5 mg HS PRN PO INSOMNIA Last administered on 00:38; Admin Dose 5 MG; Start 11/15/16 at 23:30 Loperamide HCl (Imodium Cap) 2 mg QID PRN PO DIARRHEA Last administered on 11/17 12:51; Admin Dose 2 MG; Start 11/16/16 at 16:00 Acetaminophen/ Hydrocodone Bitart ([place] (5/325)) 1 tab Q6H PRN PO pain Last administered on 12/09/16 17:56; Admin Dose 1 TAB; Start 11/22/16 at 12:00 Morphine Sulfate (morphine) 2 mg Q4H PRN IV SEVERE PAIN LEVEL 7-10 Last administered on 12/09/16 13:05; Admin Dose 2 MG; Start 11/23/16 at 12:00 Ondansetron HCl (Zofran Inj) 4 mg Q4H PRN IV NAUSEA AND/OR VOMITING Last administered on 11/30/16 17:21; Admin Dose 4 MG; Start 11/27/16 at 17:30 Hydralazine HCl (Apresoline) 10 mg Q6H PRN IV ELEVATED BLOOD PRESSURE; Start at 21:00 Hydralazine HCl (Apresoline) 20 mg Q6H PRN IV ELEVATED BLOOD PRESSURE Last administered on 11/27/16 21:42; Admin Dose 20 MG; Start 11/27/16 at 21:00 Benazepril HCl (Lotensin) 10 mg DAILY PO Last administered on 8/20/17at 08:44; Admin Dose 10 MG; Start 11/30/16 at 09:00 Ondansetron HCl (Zofran Inj) 4 mg Q4H PRN IV NAUSEA AND/OR VOMITING; Start at 15:30 Clopidogrel Bisulfate 75 mg 75 mg DAILY PO Last administered on 12/09/16 09:38 ; Admin Dose 75 MG; Start 12/04/16 at 09:00 Sodium Chloride (NS) 1,000 ml @ 70 mls/hr [id number] IV Last administered on 12/09 12:50; Admin Dose 70 MLS/HR; Start 12/07/16 at 00:00 Clonidine (Catapres) 0.1 mg Q4H PRN PO htn; Start 12/08/16 at 14:30 Tacrolimus (Prograf) 2 mg Q12 PO Last administered on 12/09/16 09:40; Admin Dose 2 MG; Start 12/09/16 at 09:00 RAMON KEMP MD Dec 09, 2016 18:40
--- NOTE | 2016-12-11 17:43 | OPR ---
Date/Time of Note Date/Time of Note DATE: 12/11/16 TIME: 17:33 Operative Report Free Text/Dictation DATE OF OPERATION: 12/07/2016 SURGEON: Aung Duarte MD PREOPERATIVE DIAGNOSIS: bilateral lower extremity non-healing wounds POSTOPERATIVE DIAGNOSIS: Same ANESTHESIA: LOCAL & sedation ESTIMATED BLOOD LOSS: Minimal. COMPLICATIONS: None. INDICATIONS: This is a 61-year-old female with significant bilateral lower extremity atherosclerotic disease and gangrene whom had underwent bilateral LE endovascular interventions. She further had underwent debridement and has lost tissue and necrotic stump wound that required further intervention. The patient has been discussed about the risks, benefits, and alternatives including but not limited to bleeding, worsening infection, limb loss, nerve injury, infection , , stroke, myocardial infarction, and multiple debridements in the near future and she has agreed to proceed. OPERATION PERFORMED: 1. Excisional sharp debridement of the left lower extremity involving skin, subcutaneous tissue, muscle, ligament, and tendon. Wound measuring 3.5 x 2.5 x 0.3 cm in the greatest dimensions. 2. Excisional sharp debridement of the right lower extremity involving skin, subcutaneous tissue, muscle, ligament, and tendon. Wound measuring 2.5 x 2 x 0.2 cm in the greatest dimensions. 2. Application of 1 gram of AmnioFill powdered amniotic membrane 3. Application of 7x6cm AmnioFix amniotic membrane allograft DESCRIPTION OF PROCEDURE: The patient was brought into the operating room table , placed in supine position. The normal bony prominences were padded. The anesthesia team had placed appropriate lines and anesthesia was induced. The patient tolerated procedure well and appropriate site was marked and confirmed. The patient's bilateral lower extremity was then prepped and draped in usual standard sterile fashion. Preoperative antibiotics were given prior to skin incision. Using sharp scissors and a curette, excisional debridement of all necrotic tissue involving skin, subcutaneous tissue, ligament, tendon, and muscle was performed. The patient bilateral wounds have necrotic fibrinous tissue and eschar which were all removed. For bilateral wounds we used 1 gram of AmnioFill powdered amniotic membrane applied to repair and replace lost and damaged tissues. Further application of 7x6cm AmnioFix amniotic membrane allograft over all the exposed areas to repair and replace lost and damaged tissues. Adaptic was applied circumferentially followed by Surgilube. This was followed with moist dressing, Telfa, 4 x 4, and Kerlix dressing. The patient tolerated procedure well and was taken to the postanesthesia care unit in stable condition. Our plan will be to revisit the wound again in one two weeks Procedure Date: Dec 07, 2016 Surgeon: AUNG DUARTE MD Anesthesia Type: general, moderate sedation Estimated Blood Loss: minimal Transfusion Required: no Grafts/Implants amniotic tissue Complications: no Pt Condition Post Procedure: stable Disposition: PACU AUNG DUARTE MD Dec 11, 2016 17:43
== END 2016-12-09 19:45 | disposition home health service (06) | DRG 270 ==
LOC: FTE 07:33 → PP2 10:06
PROVIDERS: ADMIT Internal Medicine; ATTEND Internal Medicine
PROC: 047M3ZZ Dilation of Right Popliteal Artery, Percutaneous Approach (ICD-10-PCS; 2016-11-27)
PROC: 047T3ZZ Dilation of Right Peroneal Artery, Percutaneous Approach (ICD-10-PCS; 2016-11-27)
PROC: B41G1ZZ Fluoroscopy of Left Lower Extremity Arteries using Low Osmolar Contrast (ICD-10-PCS; 2016-11-27)
PROC: B41F1ZZ Fluoroscopy of Right Lower Extremity Arteries using Low Osmolar Contrast (ICD-10-PCS; 2016-11-27)
PROC: 047K3DZ Dilation of Right Femoral Artery with Intraluminal Device, Percutaneous Approach (ICD-10-PCS; 2016-11-27 14:00)
PROC: 0JBR0ZZ Excision of Left Foot Subcutaneous Tissue and Fascia, Open Approach (ICD-10-PCS; 2016-11-30)
PROC: 0JBQ0ZZ Excision of Right Foot Subcutaneous Tissue and Fascia, Open Approach (ICD-10-PCS; 2016-11-30)
PROC: 047L3DZ Dilation of Left Femoral Artery with Intraluminal Device, Percutaneous Approach (ICD-10-PCS; 2016-12-02)
PROC: 04CN3ZZ Extirpation of Matter from Left Popliteal Artery, Percutaneous Approach (ICD-10-PCS; 2016-12-02)
PROC: 047N3ZZ Dilation of Left Popliteal Artery, Percutaneous Approach (ICD-10-PCS; 2016-12-02)
PROC: 047S3ZZ Dilation of Left Posterior Tibial Artery, Percutaneous Approach (ICD-10-PCS; 2016-12-02)
PROC: 047U3ZZ Dilation of Left Peroneal Artery, Percutaneous Approach (ICD-10-PCS; 2016-12-02)
PROC: 047Y3ZZ Dilation of Lower Artery, Percutaneous Approach (ICD-10-PCS; 2016-12-02)
PROC: 04CL3ZZ Extirpation of Matter from Left Femoral Artery, Percutaneous Approach (ICD-10-PCS; principal; 2016-12-02 11:30)
PROC: 0LBP0ZZ Excision of Left Lower Leg Tendon, Open Approach (ICD-10-PCS; 2016-12-07)
PROC: 0LBN0ZZ Excision of Right Lower Leg Tendon, Open Approach (ICD-10-PCS; 2016-12-07)
PROC: 0HRLXK3 Replacement of Left Lower Leg Skin with Nonautologous Tissue Substitute, Full Thickness, External Approach (ICD-10-PCS; 2016-12-07)
PROC: 0HRKXK3 Replacement of Right Lower Leg Skin with Nonautologous Tissue Substitute, Full Thickness, External Approach (ICD-10-PCS; 2016-12-07)
DX: I70.263 Atherosclerosis of native arteries of extremities with gangrene, bilateral legs (principal); N18.6 End stage renal disease; E87.2 Acidosis; I12.0 Hypertensive chronic kidney disease with stage 5 chronic kidney disease or end stage renal disease; A04.7 Enterocolitis due to Clostridium difficile; L03.115 Cellulitis of right lower limb; T82.858A Stenosis of other vascular prosthetic devices, implants and grafts, initial encounter; Z94.0 Kidney transplant status; L03.116 Cellulitis of left lower limb; M86.9 Osteomyelitis, unspecified; E11.22 Type 2 diabetes mellitus with diabetic chronic kidney disease; E11.42 Type 2 diabetes mellitus with diabetic polyneuropathy; Z79.4 Long term (current) use of insulin; E83.52 Hypercalcemia; I25.10 Atherosclerotic heart disease of native coronary artery without angina pectoris; E87.6 Hypokalemia; D64.9 Anemia, unspecified; E83.42 Hypomagnesemia; Z86.718 Personal history of other venous thrombosis and embolism; D63.1 Anemia in chronic kidney disease; Z79.82 Long term (current) use of aspirin; Z91.19 Patient's noncompliance with other medical treatment and regimen; Z89.422 Acquired absence of other left toe(s); Z89.421 Acquired absence of other right toe(s); Z79.899 Other long term (current) drug therapy; L97.522 Non-pressure chronic ulcer of other part of left foot with fat layer exposed; R19.7 Diarrhea, unspecified; Q27.39 Arteriovenous malformation, other site; L97.514 Non-pressure chronic ulcer of other part of right foot with necrosis of bone; B35.1 Tinea unguium
CPT/HCPCS: 36415; 70360; 71010; 75630; 75635; 78452; 80048; 80053; 80061; 81001; 82550; 82553; 82962; 83036; 83605; 83735; 84100; 84484; 85025; 85610; 85651; 85730; 86140; 87040; 87075; 87081; 88304; 93005; 93017; 93306; 93922; 93970; 96374; 96375; 97110; 97116; 97162; 97530; A9500; A9505; C1714; C1725; C1760; C1769; C1875; C1887; C1894; J0360; J0690; J1100; J1170; J1644; J1650; J1885; J1956; J2250; J2270; J2405; J2543; J2765; J2785; J3010; J3370; J3475; J3480; J7030; J7507; J7517; L3260-LT; Q9967

== ENCOUNTER 2016-12-26 12:36 | Inpatient (IN) | payer OTHER ==
[~2016-12-26] VITALS: Ht 152.4 cm; Wt 42.0 kg
[~2016-12-26 12:36] MED LIST changes: +ASPI-664 PO; +BENA10TA48 PO; -CLOP75TA27 PO; +CLOP75TA28 PO; +DOXY100T20 PO; +FAMO40TA52 PO; +FOLI-49 PO; +GABA100C14 PO; +HYDR-906 PO; +LEVO500T10 PO; -METO-429 PO; +METO-448 PO; -OMEP20CA16 PO; +OMEP40CA6 PO
[2016-12-26 13:20] VITALS: BP 164/73; PULSE 66; RESP 18
[2016-12-26] MEDS ORDERED: HYDROCODONE/APAP (5/325) TAB PO PRN (14:00)
[2016-12-26] MEDS ORDERED: GLUCOSE GEL 15 GRAM TUBE PO PRN ×2 (14:30)
[2016-12-26] MEDS ORDERED: GLUCAGON 1 MG INJ IM PRN (14:30)
[2016-12-26] MEDS ORDERED: DEXTROSE 50% 50 ML SYRINGE IV PRN ×2 (14:30)
[2016-12-26] MEDS ORDERED: GLUCOSE GEL 15 GRAM TUBE BUCCAL PRN (14:30)
[2016-12-26 14:38] VITALS: Ht 152.4 cm; Wt 42.0 kg
[2016-12-26] MEDS: DILTIAZEM (CD) 180 MG CAP PO SCH (16:17)
[2016-12-26] MEDS: morphine 2 MG INJ IV PRN ×2 (16:47→22:38)
[2016-12-26] MEDS: INSULIN ASPART [NOVOLOG] 3 ML PEN SC SCH ×2 (17:14→21:00)
[2016-12-26 19:14] LABS: CALCIUM 9.5 mg/dl (8.4-10.2); CREATININE 0.75 mg/dl (0.44-1.00)
[2016-12-26 19:40] LABS: EOSINOPHILS # 0.1 10^3/ul (0.0-0.5); HEMATOCRIT 32.9 % (37.0-47.0); HEMOGLOBIN 10.7 g/dl (12.0-16.0); LYMPHOCYTES # 1.1 10^3/ul (0.8-2.9); LYMPHOCYTES % 17.7 % (15.0-51.0); MEAN CORPUSCULAR HEMOGLOBIN 27.9 pg (29.0-33.0); MEAN CORPUSCULAR HGB CONC 32.5 g/dl (32.0-37.0); MEAN CORPUSCULAR VOLUME 85.9 fl (82.0-101.0); MEAN PLATELET VOLUME 11.6 fl (7.4-10.4); MONOCYTE # 0.8 10^3/ul (0.3-0.9); MONOCYTES % 13.4 % (0.0-11.0); NEUTROPHILS % 67.7 % (39.0-77.0); PLATELET COUNT 174 10^3/UL (140-415); RED BLOOD COUNT 3.83 10^6/ul (4.20-5.40); RED CELL DISTRIBUTION WIDTH 14.5 % (11.5-14.5); WHITE BLOOD COUNT 6.2 10^3/ul (4.8-10.8)
[2016-12-26 19:43] VITALS: BP 98/64; RESP 16
[2016-12-26] MEDS: HYDROCODONE/APAP (5/325) TAB PO SCH (22:32)
[2016-12-26] MEDS: TACROLIMUS 1 MG CAP PO SCH (22:33)
[2016-12-26] MEDS: MYCOPHENOLATE 250 MG CAP PO SCH (22:33)
[2016-12-26] MEDS: METOPROLOL 25 MG TAB PO SCH (22:33)
[2016-12-26] MEDS: FAMOTIDINE 20 MG TAB PO SCH (22:34)
[2016-12-26] MEDS: DOXYCYCLINE 100 MG TAB PO SCH (22:34)
[2016-12-26] MEDS: GABAPENTIN 100 MG CAP PO SCH (22:41)
[2016-12-27] MEDS ORDERED: ACCU-CHEK XX SCH (02:00)
[2016-12-27] MEDS: ACCU-CHEK XX SCH (02:00)
[2016-12-27 02:12] VITALS: BP 116/59; RESP 18
[2016-12-27] MEDS: HYDROCODONE/APAP (5/325) TAB PO SCH ×3 (05:12→22:19)
[2016-12-27] MEDS: PANTOPRAZOLE (EC) 40 MG TAB PO SCH (05:13)
[2016-12-27 06:43] LABS: BASOPHILS % 0.2 % (0.0-2.0); EOSINOPHILS # 0.1 10^3/ul (0.0-0.5); EOSINOPHILS % 1.5 % (0.0-7.0); HEMATOCRIT 33.6 % (37.0-47.0); HEMOGLOBIN 10.7 g/dl (12.0-16.0); LYMPHOCYTES # 1.1 10^3/ul (0.8-2.9); LYMPHOCYTES % 21.1 % (15.0-51.0); MEAN CORPUSCULAR HEMOGLOBIN 28.2 pg (29.0-33.0); MEAN CORPUSCULAR HGB CONC 31.8 g/dl (32.0-37.0); MEAN CORPUSCULAR VOLUME 88.4 fl (82.0-101.0); MEAN PLATELET VOLUME 11.7 fl (7.4-10.4); MONOCYTE # 0.7 10^3/ul (0.3-0.9); MONOCYTES % 13.4 % (0.0-11.0); NEUTROPHILS % 63.6 % (39.0-77.0); PLATELET COUNT 152 10^3/UL (140-415); RED CELL DISTRIBUTION WIDTH 14.4 % (11.5-14.5); WHITE BLOOD COUNT 5.3 10^3/ul (4.8-10.8)
[2016-12-27 07:20] LABS: CALCIUM 9.5 mg/dl (8.4-10.2); CREATININE 0.75 mg/dl (0.44-1.00); POTASSIUM 5.1 mmol/L (3.5-5.1)
[2016-12-27 07:40] VITALS: BP 113/60; RESP 18
[2016-12-27] MEDS: INSULIN ASPART [NOVOLOG] 3 ML PEN SC SCH ×4 (08:00→21:00)
[2016-12-27] MEDS: METOPROLOL 25 MG TAB PO SCH ×2 (09:00→20:51)
[2016-12-27] MEDS: TACROLIMUS 1 MG CAP PO SCH ×2 (09:21→20:47)
[2016-12-27] MEDS: ASPIRIN (EC) 81 MG TAB PO SCH (09:21)
[2016-12-27] MEDS: CLOPIDOGREL 75 MG TAB PO SCH (09:21)
[2016-12-27] MEDS: GABAPENTIN 100 MG CAP PO SCH ×3 (09:21→20:47)
[2016-12-27] MEDS: MYCOPHENOLATE 250 MG CAP PO SCH ×2 (09:21→20:47)
[2016-12-27] MEDS: DOXYCYCLINE 100 MG TAB PO SCH ×2 (09:22→20:47)
[2016-12-27] MEDS: DILTIAZEM (CD) 180 MG CAP PO SCH (09:22)
[2016-12-27] MEDS: CHOLECALCIFEROL 1,000 UNIT TAB PO SCH (09:23)
[2016-12-27] MEDS: BENAZEPRIL 10 MG TAB PO SCH (09:24)
[2016-12-27] MEDS: FOLIC ACID 1 MG TAB PO SCH (09:24)
[2016-12-27] MEDS: morphine 2 MG INJ IV PRN ×2 (11:27→20:55)
[2016-12-27 13:51] VITALS: BP 105/59; PULSE 57; RESP 18
--- NOTE | 2016-12-27 14:54 | HP ---
Date/Time of Note Date/Time of Note DATE: 12/26/16 TIME: 13:57 Assessment/Plan VTE Prophylaxis VTE Prophylaxis Intervention: other Assessment/Plan Assessment/Plan . - Non healing wounds BLE - per Dr. Valencia in vascular surgery consultation. Continue pain medication. - per ID - End-stage renal disease status post renal transplant. Continues CellCept and tacrolimus. - per nephro - Hypertension. 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 - Anemia of chronic kidney disease. - Severe peripheral arterial disease. Further recommendations based on clinical course. Plan of care discussed with Dr. Cohen. HPI/ROS Admit Date/Time Admit Date/Time Dec 26, 2016 at 13:22 ROS Hx of Present Illness The patient is 61-year-old female is admitted from [facility] clinic with c/ o BLE non healing wounds..Patient has past history of end-stage renal disease status post renal transplant in 2009, hypertension, dyslipidemia, history of bilateral upper extremity pyoderma gangrenosum lesions versus embolic lesions, history of left lower extremity DVT, and bilateral lower extremity atherosclerosis. Patient underwent bilateral lower extremities angiogram with multiple vascular intervention in May [address] Valencia. Patient underwent bilateral toes amputation by Dr. Reynaga . ROS 12 point review of system is negative unless what mentioned in HPI Respiratory: no complaints Cardiovascular: no complaints Musculoskeletal: bone/joint pain PMH/Family/Social Past Medical History PMH/Family/Social Past Medical History Per HPI Past Surgical History Status post renal transplant in 2009, status post left upper extremity arteriovenous fistula for dialysis many years ago, status post skin graft to the thigh and status post numerous vascular interventions, status post recent bilateral 5th toes amputation. Family History Significant Family History: no pertinent family hx Social History Alcohol Use: none Smoking Status: Never smoker Drug Use: none Past Surgical History Past Surgical Hx: other Exam/Review of Systems Exam Constitutional: alert, oriented, well developed Respiratory: clear to auscultation, normal air movement Cardiovascular: nl pulses, regular rate and rhythm Gastrointestinal: non-tender, soft Musculoskeletal: other TIM BENNETT Dec 26, 2016 14:15
--- NOTE | 2016-12-27 14:55 | PN ---
Date/Time of Note Date/Time of Note DATE: 12/27/16 TIME: 14:54 Assessment/Plan VTE Prophylaxis VTE Prophylaxis Intervention: other Lines/Catheters IV Catheter Type (from Nrs): Saline Lock Urinary Cath still in place: No Assessment/Plan Assessment/Plan . - Non healing wounds BLE - per Dr. Valencia in vascular surgery consultation. Continue pain medication. - per ID - End-stage renal disease status post renal transplant. Continues CellCept and tacrolimus. - per nephro - Hypertension. 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 - Anemia of chronic kidney disease. - Severe peripheral arterial disease. Further recommendations based on clinical course. Plan of care discussed with Dr. Cohen. Subjective 24 Hr Interval Summary Gastrointestinal: no complaints Genitourinary: no complaints Skin: erythema, skin lesions Exam/Review of Systems Vital Signs Vitals Vital Signs Date Time Temp Pulse Resp B/P Pulse Ox O2 Delivery O2 Flow Rate FiO2 12/27/16 13:51 97.6 57 18 105/59 100 Room Air Intake and Output 12/26/16 12/26/16 12/27/16 15:00 23:00 07:00 Intake Total 450 ml 430 ml Output Total 360 ml Balance 450 ml 70 ml Exam Constitutional: alert, well developed Respiratory: clear to auscultation Cardiovascular: nl pulses, regular rate and rhythm Gastrointestinal: non-tender Musculoskeletal: other Extremities: other Neurological: nl mental status, nl speech Skin: other Results Result Diagram: 12/27/16 0457 12/27/16 0457 Results 24 hrs Laboratory Tests Test 12/26/16 16:51 12/26/16 18:46 12/26/16 19:30 12/26/16 22:30 Bedside Glucose 169 116 Sodium Level 135 Potassium Level 5.0 Chloride Level 105 Carbon Dioxide Level 22 Anion Gap 13 Blood Urea Nitrogen 16 Creatinine 0.75 Glucose Level 121 Calcium Level 9.5 White Blood Count 6.2 # Red Blood Count 3.83 L Hemoglobin 10.7 L Hematocrit 32.9 L Mean Corpuscular Volume 85.9 Mean Corpuscular Hemoglobin 27.9 L Mean Corpuscular Hemoglobin Concent 32.5 Red Cell Distribution Width 14.5 Platelet Count 174 Mean Platelet Volume 11.6 H Neutrophils % 67.7 Lymphocytes % 17.7 Monocytes % 13.4 H Eosinophils % 1.0 Basophils % 0.0 Nucleated Red Blood Cells % 0.0 Neutrophils # (Manual) 4.2 Lymphocytes # 1.1 Monocytes # 0.8 Eosinophils # 0.1 Basophils # 0.0 Nucleated Red Blood Cells # 0.0 Test 12/27/16 04:57 12/27/16 08:04 12/27/16 12:09 White Blood Count 5.3 Red Blood Count 3.80 L Hemoglobin 10.7 L Hematocrit 33.6 L Mean Corpuscular Volume 88.4 Mean Corpuscular Hemoglobin 28.2 L Mean Corpuscular Hemoglobin Concent 31.8 L Red Cell Distribution Width 14.4 Platelet Count 152 Mean Platelet Volume 11.7 H Neutrophils % 63.6 Lymphocytes % 21.1 Monocytes % 13.4 H Eosinophils % 1.5 Basophils % 0.2 Nucleated Red Blood Cells % 0.0 Neutrophils # (Manual) 3.4 Lymphocytes # 1.1 Monocytes # 0.7 Eosinophils # 0.1 Basophils # 0.0 Nucleated Red Blood Cells # 0.0 Sodium Level 136 Potassium Level 5.1 Chloride Level 105 Carbon Dioxide Level 24 Anion Gap 12 Blood Urea Nitrogen 19 Creatinine 0.75 Glucose Level 88 Hemoglobin A1c 5.5 Calcium Level 9.5 Bedside Glucose 125 220 Medications Medications Current Medications Aspirin (Halfprin) 81 mg DAILY PO Last administered on 12/27/16 09:21; Admin Dose 81 MG; Start 12/27/16 at 09:00 Benazepril HCl (Lotensin) 10 mg DAILY PO Last administered on 12/27/16 09:24; Admin Dose 10 MG; Start 12/27/16 at 09:00 Cholecalciferol (Vitamin D) 1 unit DAILY PO Last administered on 12/27/16 09:23 ; Admin Dose 1 UNIT; Start 12/27/16 at 09:00 Clopidogrel Bisulfate (plaVIX) 75 mg DAILY PO Last administered on 12/27/16 09: 21; Admin Dose 75 MG; Start 12/27/16 at 09:00 Diltiazem HCl (Cardizem Cd) 180 mg DAILY PO Last administered on 12/27/16 09:22 ; Admin Dose 180 MG; Start 12/26/16 at 14:00 Doxycycline Hyclate (Vibramycin) 100 mg BID PO Last administered on 12/27/16 09 :22; Admin Dose 100 MG; Start 12/26/16 at 21:00 Famotidine (Pepcid) 40 mg HS PO Last administered on 12/26/16 22:34; Admin Dose 40 MG; Start 12/26/16 at 21:00 Folic Acid (Folic Acid) 1 mg DAILY PO Last administered on 12/27/16 09:24; Admin Dose 1 MG; Start 12/27/16 at 09:00 Gabapentin (Neurontin) 100 mg TID PO Last administered on 12/27/16 12:08; Admin Dose 100 MG; Start 12/26/16 at 21:00 Metoprolol Tartrate (Lopressor) 75 mg BID PO Last administered on 12/26/16 22: 33; Admin Dose 75 MG; Start 12/26/16 at 21:00 Mycophenolate Mofetil (Cellcept) 1,000 mg BID PO Last administered on 12/27/16 09:21; Admin Dose 1,000 MG; Start 12/26/16 at 21:00 Tacrolimus (Prograf) 2 mg Q12 PO Last administered on 12/27/16 09:21; Admin Dose 2 MG; Start 12/26/16 at 21:00 Pantoprazole (Protonix Tab) 40 mg DAILY@06 PO Last administered on 12/27/16 05: 13; Admin Dose 40 MG; Start 12/27/16 at 06:00 Morphine Sulfate (morphine) 2 mg Q4H PRN IV PAIN LEVEL 6-10 Last administered on 12/27/16 11:27; Admin Dose 2 MG; Start 12/26/16 at 14:30 Diagnostic Test (Pha) (Accu-Chek) 1 ea 02 XX ; Start 12/27/16 at 02:00 Miscellaneous Information 1 ea NOTE XX ; Start 12/26/16 at 14:30 Glucose (Glutose) 15 gm Q15M PRN PO DECREASED GLUCOSE; Start 12/26/16 at 14:30 Glucose (Glutose) 22.5 gm Q15M PRN PO DECREASED GLUCOSE; Start 12/26/16 at 14:30 Dextrose (D50w Syringe) 25 ml Q15M PRN IV DECREASED GLUCOSE; Start 12/26/16 at 14:30 Dextrose (D50w Syringe) 50 ml Q15M PRN IV DECREASED GLUCOSE; Start 12/26/16 at 14:30 Glucagon (Glucagen) 1 mg Q15M PRN IM DECREASED GLUCOSE; Start 12/26/16 at 14:30 Glucose (Glutose) 15 gm Q15M PRN BUCCAL DECREASED GLUCOSE; Start 12/26/16 at 14: 30 Acetaminophen/ Hydrocodone Bitart ([place] (5/325)) 1 tab Q8 PO Last administered on 12/27/16t 13:52; Admin Dose 1 TAB; Start 12/26/16 at 22:00 TIM BENNETT Dec 27, 2016 14:55
--- NOTE | 2016-12-27 16:02 | CONS ---
Date/Time of Note Date/Time of Note DATE: 12/27/16 TIME: 16:01 Assessment/Plan Assessment/Plan Additional Assessment/Plan 1. 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 h/o donor kidney transplant in 2009 at [facility], currently on immunosuppression with Prograf, CellCept 4. 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 History of hypertension. 6. History of diabetes mellitus. 7. History of previous left upper extremity arteriovenous fistula. Plan: Thank you for consultation, continue Current immunosuppression Prograf and cellcept no prednisone due to Poorly healing wounds IV abx as per ID, ID consulted on case Pt will need podiatry consult Renal function currently has been stable will continue to follow up along with PMD,vascular and Podiatry service Consultation Date/Type/Reason Admit Date/Time Dec 26, 2016 at 13:22 Date of Consultation: Dec 27, 2016 Type of Consultation: NEPHROLOGY Reason for Consultation Management immnosuppresion for kidney transplant , To prevent Contrast induced nephropathy, LE gangrene Referring Provider: KRISTIN HALL MD Hx of Present Illness 61-year-old female known to me from previous admission. 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 Patient underwent bilateral lower extremities angiogram with multiple vascular intervention in May [address] Valencia. She was recently admitted in October 2016 and had a LE debridement for gangrene. She gets admitted again for worsening LE gangrene. Renal has been consulted for management of immunosuppresion and to prevent contrast induced nephropathy. Constitutional: no complaints Eyes: no complaints ENT: no complaints Respiratory: no complaints Cardiovascular: no complaints Gastrointestinal: no complaints Genitourinary: no complaints Musculoskeletal: bone/joint pain Skin: erythema, skin lesions Neurologic: no complaints Endocrine: no complaints Lymphatic: no complaints Psychological: no complaints Immunologic: no complaints Past Medical History Medical History: diabetes, high cholesterol, hypertension, other (Peripheral vascular disease ) Past Surgical History Past Surgical Hx: other (H/o LE angiogram, H/o LE debridement, H/o previosu AVF for HD access ) Family History Significant Family History: no pertinent family hx Social History Alcohol Use: none Smoking Status: Never smoker Drug Use: none Exam/Review of Systems Vital Signs Vitals Vital Signs Date Time Temp Pulse Resp B/P Pulse Ox O2 Delivery O2 Flow Rate FiO2 12/27/16 13:51 97.6 57 18 105/59 100 Room Air Intake and Output 12/26/16 12/26/16 12/27/16 15:00 23:00 07:00 Intake Total 450 ml 430 ml Output Total 360 ml Balance 450 ml 70 ml Exam Constitutional: alert Psych: no complaints Head: normocephalic Eyes: nl conjunctiva ENMT: nl external ears & nose Neck: non-tender, supple Respiratory: clear to auscultation, diminished breath sounds, normal air movement Cardiovascular: nl pulses, regular rate and rhythm Gastrointestinal: non-tender, soft Extremities: normal pulses, other (Bilateral LE gangrene ) Neurological: VIBRATORY PILE [employer]IVER II-XII intact, nl mental status, nl speech, nl strength Results Result Diagram: 12/27/167 12/27/16456 Results 24 hrs Laboratory Tests Test 12/26/16 16:51 12/26/16 18:46 12/26/16 19:30 12/26/16 22:30 Bedside Glucose 169 116 Sodium Level 135 Potassium Level 5.0 Chloride Level 105 Carbon Dioxide Level 22 Anion Gap 13 Blood Urea Nitrogen 16 Creatinine 0.75 Glucose Level 121 Calcium Level 9.5 White Blood Count 6.2 # Red Blood Count 3.83 L Hemoglobin 10.7 L Hematocrit 32.9 L Mean Corpuscular Volume 85.9 Mean Corpuscular Hemoglobin 27.9 L Mean Corpuscular Hemoglobin Concent 32.5 Red Cell Distribution Width 14.5 Platelet Count 174 Mean Platelet Volume 11.6 H Neutrophils % 67.7 Lymphocytes % 17.7 Monocytes % 13.4 H Eosinophils % 1.0 Basophils % 0.0 Nucleated Red Blood Cells % 0.0 Neutrophils # (Manual) 4.2 Lymphocytes # 1.1 Monocytes # 0.8 Eosinophils # 0.1 Basophils # 0.0 Nucleated Red Blood Cells # 0.0 Test 12/27/16 04:57 12/27/16 08:04 12/27/16 12:09 White Blood Count 5.3 Red Blood Count 3.80 L Hemoglobin 10.7 L Hematocrit 33.6 L Mean Corpuscular Volume 88.4 Mean Corpuscular Hemoglobin 28.2 L Mean Corpuscular Hemoglobin Concent 31.8 L Red Cell Distribution Width 14.4 Platelet Count 152 Mean Platelet Volume 11.7 H Neutrophils % 63.6 Lymphocytes % 21.1 Monocytes % 13.4 H Eosinophils % 1.5 Basophils % 0.2 Nucleated Red Blood Cells % 0.0 Neutrophils # (Manual) 3.4 Lymphocytes # 1.1 Monocytes # 0.7 Eosinophils # 0.1 Basophils # 0.0 Nucleated Red Blood Cells # 0.0 Sodium Level 136 Potassium Level 5.1 Chloride Level 105 Carbon Dioxide Level 24 Anion Gap 12 Blood Urea Nitrogen 19 Creatinine 0.75 Glucose Level 88 Hemoglobin A1c 5.5 Calcium Level 9.5 Bedside Glucose 125 220 Medications Medications Current Medications Aspirin (Halfprin) 81 mg DAILY PO Last administered on 12/27/16 09:21; Admin Dose 81 MG; Start 12/27/16 at 09:00 Benazepril HCl (Lotensin) 10 mg DAILY PO Last administered on 12/27/16 09:24; Admin Dose 10 MG; Start 12/27/16 at 09:00 Cholecalciferol (Vitamin D) 1 unit DAILY PO Last administered on 12/27/16 09:23 ; Admin Dose 1 UNIT; Start 12/27/16 at 09:00 Clopidogrel Bisulfate (plaVIX) 75 mg DAILY PO Last administered on 12/27/16 09: 21; Admin Dose 75 MG; Start 12/27/16 at 09:00 Diltiazem HCl (Cardizem Cd) 180 mg DAILY PO Last administered on 12/27/16 09:22 ; Admin Dose 180 MG; Start 12/26/16 at 14:00 Doxycycline Hyclate (Vibramycin) 100 mg BID PO Last administered on 12/27/16 09 :22; Admin Dose 100 MG; Start 12/26/16 at 21:00 Famotidine (Pepcid) 40 mg HS PO Last administered on 12/26/16 22:34; Admin Dose 40 MG; Start 12/26/16 at 21:00 Folic Acid (Folic Acid) 1 mg DAILY PO Last administered on 12/27/16 09:24; Admin Dose 1 MG; Start 12/27/16 at 09:00 Gabapentin (Neurontin) 100 mg TID PO Last administered on 12/27/16 12:08; Admin Dose 100 MG; Start 12/26/16 at 21:00 Metoprolol Tartrate (Lopressor) 75 mg BID PO Last administered on 12/26/16 22: 33; Admin Dose 75 MG; Start 12/26/16 at 21:00 Mycophenolate Mofetil (Cellcept) 1,000 mg BID PO Last administered on 12/27/16 09:21; Admin Dose 1,000 MG; Start 12/26/16 at 21:00 Tacrolimus (Prograf) 2 mg Q12 PO Last administered on 12/27/16 09:21; Admin Dose 2 MG; Start 12/26/16 at 21:00 Pantoprazole (Protonix Tab) 40 mg DAILY@06 PO Last administered on 12/27/16 05: 13; Admin Dose 40 MG; Start 12/27/16 at 06:00 Morphine Sulfate (morphine) 2 mg Q4H PRN IV PAIN LEVEL 6-10 Last administered on 12/27/16 11:27; Admin Dose 2 MG; Start 12/26/16 at 14:30 Diagnostic Test (Pha) (Accu-Chek) 1 ea 02 XX ; Start 12/27/16 at 02:00 Miscellaneous Information 1 ea NOTE XX ; Start 12/26/16 at 14:30 Glucose (Glutose) 15 gm Q15M PRN PO DECREASED GLUCOSE; Start 12/26/16 at 14:30 Glucose (Glutose) 22.5 gm Q15M PRN PO DECREASED GLUCOSE; Start 12/26/16 at 14:30 Dextrose (D50w Syringe) 25 ml Q15M PRN IV DECREASED GLUCOSE; Start 12/26/16 at 14:30 Dextrose (D50w Syringe) 50 ml Q15M PRN IV DECREASED GLUCOSE; Start 12/26/16 at 14:30 Glucagon (Glucagen) 1 mg Q15M PRN IM DECREASED GLUCOSE; Start 12/26/16 at 14:30 Glucose (Glutose) 15 gm Q15M PRN BUCCAL DECREASED GLUCOSE; Start 12/26/16 at 14: 30 Acetaminophen/ Hydrocodone Bitart ([place] (5/325)) 1 tab Q8 PO Last administered on 12/27/16 13:52; Admin Dose 1 TAB; Start 12/26/16 at 22:00 Insulin Glargine (Lantus) 10 unit DAILY@20 SC ; Start 12/27/16 at 20:00 RAMON KEMP MD Dec 27, 2016 16:02
[2016-12-27 20:00] VITALS: BP 109/67; RESP 18
[2016-12-27] MEDS: INSULIN GLARGINE [LANtus] 3 ML PEN SC SCH (20:46)
[2016-12-27] MEDS: FAMOTIDINE 20 MG TAB PO SCH (20:47)
--- NOTE | 2016-12-27 23:02 | CONS ---
Date/Time of Note Date/Time of Note DATE: 12/27/16 TIME: 23:01 Consultation Date/Type/Reason Admit Date/Time Dec 26, 2016 at 13:22 Hx of Present Illness Vascular surgery H and P. Dear Doctors HISTORY OF PRESENT ILLNESS: Ms. Aguillon is a 61-year-old female known to our Vascular Surgery Service and the Wound Care Office secondary to extensive history of aortoiliac atherosclerotic disease and bilateral lower extremity atherosclerosis with gangrene. The patient over the past 2 years has had multiple interventions and evaluations for findings of lower extremity gangrene. Of note, in the past. The patient had originally presented with history of bilateral lower extremity lesions that were unexplained as the patient was negative for any specific type of autoimmune and cancer as she was evaluated by multiple tissue biopsies done by our General Surgery colleagues. Further, the patient has been evaluated by our Medical colleagues for any other findings that may suggest otherwise. 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 Further the patient is somewhat noncompliant and does not necessarily follow up with us regarding her vascular surveillance as we have recommended in the past unless her wounds worsen or she develops rest pain. The patient as of recent has developed again left lower extremity rest pain and worsening gangrene. We have had multiple conversations in the past regarding her findings and realistic limb salvage. REVIEW OF SYSTEMS: Fourteen point review performed and negative except what was mentioned in the HPI. PAST MEDICAL HISTORY: Entails history of noncompliance, bilateral lower extremity atherosclerosis with gangrene, aortoiliac atherosclerotic disease, hypertension, history of end- stage renal disease, a kidney transplant recipient in 2009 on immunosuppression therapy. PAST SURGICAL HISTORY: Left upper extremity AV fistula creation, multiple lower extremity endovascular interventions, and a kidney transplant in 2010. FAMILY HISTORY: Positive for hypertension. SOCIAL HISTORY: Denies tobacco, alcohol or illicit drug use. PHYSICAL EXAMINATION: Alert and oriented x3. No apparent distress. HEENT: Normocephalic and atraumatic. EOMI. PERRLA. Mucosa moist. NECK: Supple. No carotid bruit. LUNGS: Clear to auscultation bilaterally. No crackles. CARDIOVASCULAR: S1 and S2 present. No murmurs. ABDOMEN: Soft, nontender and nondistended. Bowel sounds positive. Surgical scar well healed. EXTREMITIES: -Right lower extremity faint femoral pulse. Nonpalpable pedal pulse. Motor and sensory intact. Capillary refill 4 seconds. Gangrene of the fifth toe amputation stump site and dependant rubor. -Left lower extremity faint femoral pulse. Nonpalpable pedal pulse. Motor and sensory intact. Capillary refill 4 seconds. Tenderness and pain of the left first toe with gangrene. Left fourth and fifth toe amputation stump with gangrene. delayed cap refill, ASSESSMENT AND PLAN: Bilateral lower extremity atherosclerosis with bilateral foot gangrene: It seems that the patient's progression of atherosclerotic disease is still there despite multiple interventions. The patient has developed worsening gangrene of the left first toe and rest pain again. Unfortunately all vascular interventions have been exhausted as she has significant LE atherosclerotic disease and no amenable conduit for a LE bypass. Given our recent endovascular intervention she would likely not benefit from any further interventions. Had a lengthy conversation with the patient about realistic outcomes of limb salvage. Recommend BKA/AKA once the rest pain has become intolerable or develops LE infection/sepsis that threatens her life. -Unfortunately she may encounter the same issue with her RLE. However, at the moment no significant rest pain reported -Optimize vascular status (BP medications, diet, nutrition and exercise, sugar control, antiplatelets). -Continue with antibiotics for the gangrene. -Podiatry colleagues are involved with the local wound care and -Cardiology evaluation for possible BKA/AKA -Discussed findings, plan and management with the patient with a certified battery tester and she understands. -Thank you for allowing us to partake in the care of your patient. Please call with any questions. Constitutional: no complaints Eyes: no complaints ENT: no complaints Respiratory: no complaints Cardiovascular: no complaints Gastrointestinal: no complaints Genitourinary: no complaints Musculoskeletal: bone/joint pain Skin: erythema, skin lesions Neurologic: no complaints Endocrine: no complaints Lymphatic: no complaints Psychological: no complaints Immunologic: no complaints Past Medical History Medical History: diabetes, high cholesterol, hypertension, other (Peripheral vascular disease ) Past Surgical History Past Surgical Hx: other (H/o LE angiogram, H/o LE debridement, H/o previosu AVF for HD access ) Social History Alcohol Use: none Smoking Status: Never smoker Drug Use: none Exam/Review of Systems Vital Signs Vitals Vital Signs Date Time Temp Pulse Resp B/P Pulse Ox O2 Delivery O2 Flow Rate FiO2 12/27/16 20:00 97.9 62 18 109/67 100 12/27/16 13:51 Room Air Intake and Output 12/26/16 12/26/16 12/27/16 15:00 23:00 07:00 Intake Total 450 ml 430 ml Output Total 360 ml Balance 450 ml 70 ml Results Result Diagram: 12/27/16 0457 12/27/16 0457 Results 24 hrs Laboratory Tests Test 12/27/16 04:57 12/27/16 08:04 12/27/16 12:09 12/27/16 17:05 White Blood Count 5.3 Red Blood Count 3.80 L Hemoglobin 10.7 L Hematocrit 33.6 L Mean Corpuscular Volume 88.4 Mean Corpuscular Hemoglobin 28.2 L Mean Corpuscular Hemoglobin Concent 31.8 L Red Cell Distribution Width 14.4 Platelet Count 152 Mean Platelet Volume 11.7 H Neutrophils % 63.6 Lymphocytes % 21.1 Monocytes % 13.4 H Eosinophils % 1.5 Basophils % 0.2 Nucleated Red Blood Cells % 0.0 Neutrophils # (Manual) 3.4 Lymphocytes # 1.1 Monocytes # 0.7 Eosinophils # 0.1 Basophils # 0.0 Nucleated Red Blood Cells # 0.0 Sodium Level 136 Potassium Level 5.1 Chloride Level 105 Carbon Dioxide Level 24 Anion Gap 12 Blood Urea Nitrogen 19 Creatinine 0.75 Glucose Level 88 Hemoglobin A1c 5.5 Calcium Level 9.5 Bedside Glucose 125 220 98 Test 12/27/16 20:40 Bedside Glucose 118 Medications Medications Current Medications Aspirin (Halfprin) 81 mg DAILY PO Last administered on 12/27/16 09:21; Admin Dose 81 MG; Start 12/27/16 at 09:00 Benazepril HCl (Lotensin) 10 mg DAILY PO Last administered on 12/27/16 09:24; Admin Dose 10 MG; Start 12/27/16 at 09:00 Cholecalciferol (Vitamin D) 1 unit DAILY PO Last administered on 12/27/16 09:23 ; Admin Dose 1 UNIT; Start 12/27/16 at 09:00 Clopidogrel Bisulfate (plaVIX) 75 mg DAILY PO Last administered on 12/27/16 09: 21; Admin Dose 75 MG; Start 12/27/16 at 09:00 Diltiazem HCl (Cardizem Cd) 180 mg DAILY PO Last administered on 12/27/16 09:22 ; Admin Dose 180 MG; Start 12/26/16 at 14:00 Doxycycline Hyclate (Vibramycin) 100 mg BID PO Last administered on 12/27/16 20 :47; Admin Dose 100 MG; Start 12/26/16 at 21:00 Famotidine (Pepcid) 40 mg HS PO Last administered on 12/27/16 20:47; Admin Dose 40 MG; Start 12/26/16 at 21:00 Folic Acid (Folic Acid) 1 mg DAILY PO Last administered on 12/27/16 09:24; Admin Dose 1 MG; Start 12/27/16 at 09:00 Gabapentin (Neurontin) 100 mg TID PO Last administered on 12/27/16 20:47; Admin Dose 100 MG; Start 12/26/16 at 21:00 Metoprolol Tartrate (Lopressor) 75 mg BID PO Last administered on 12/27/16 20: 51; Admin Dose 75 MG; Start 12/26/16 at 21:00 Mycophenolate Mofetil (Cellcept) 1,000 mg BID PO Last administered on 12/27/16 20:47; Admin Dose 1,000 MG; Start 12/26/16 at 21:00 Tacrolimus (Prograf) 2 mg Q12 PO Last administered on 12/27/16 20:47; Admin Dose 2 MG; Start 12/26/16 at 21:00 Pantoprazole (Protonix Tab) 40 mg DAILY@06 PO Last administered on 12/27/16 05: 13; Admin Dose 40 MG; Start 12/27/16 at 06:00 Morphine Sulfate (morphine) 2 mg Q4H PRN IV PAIN LEVEL 6-10 Last administered on 12/27/16 20:55; Admin Dose 2 MG; Start 12/26/16 at 14:30 Diagnostic Test (Pha) (Accu-Chek) 1 ea 02 XX ; Start 12/27/16 at 02:00 Miscellaneous Information 1 ea NOTE XX ; Start 12/26/16 at 14:30 Glucose (Glutose) 15 gm Q15M PRN PO DECREASED GLUCOSE; Start 12/26/16 at 14:30 Glucose (Glutose) 22.5 gm Q15M PRN PO DECREASED GLUCOSE; Start 12/26/16 at 14:30 Dextrose (D50w Syringe) 25 ml Q15M PRN IV DECREASED GLUCOSE; Start 12/26/16 at 14:30 Dextrose (D50w Syringe) 50 ml Q15M PRN IV DECREASED GLUCOSE; Start 12/26/16 at 14:30 Glucagon (Glucagen) 1 mg Q15M PRN IM DECREASED GLUCOSE; Start 12/26/16 at 14:30 Glucose (Glutose) 15 gm Q15M PRN BUCCAL DECREASED GLUCOSE; Start 12/26/16 at 14: 30 Acetaminophen/ Hydrocodone Bitart ([place] (5/325)) 1 tab Q8 PO Last administered on 12/27/16 22:19; Admin Dose 1 TAB; Start 12/26/16 at 22:00 Insulin Glargine (Lantus) 10 unit DAILY@20 SC Last administered on 12/27/16 20: 46; Admin Dose 10 UNIT; Start 12/27/16 at 20:00 WILD DUARTE MD Dec 27, 2016 23:01 Clopidogrel Bisulfate (plaVIX) 75 mg DAILY PO Last administered on 12/27/16 09: 21; Admin Dose 75 MG; Start 12/27/16 at 09:00 Diltiazem HCl (Cardizem Cd) 180 mg DAILY PO Last administered on 12/27/16 09:22 ; Admin Dose 180 MG; Start 12/26/16 at 14:00 Doxycycline Hyclate (Vibramycin) 100 mg BID PO Last administered on 12/27/16 20 :47; Admin Dose 100 MG; Start 12/26/16 at 21:00 Famotidine (Pepcid) 40 mg HS PO Last administered on 12/27/16 20:47; Admin Dose 40 MG; Start 12/26/16 at 21:00 Folic Acid (Folic Acid) 1 mg DAILY PO Last administered on 12/27/16 09:24; Admin Dose 1 MG; Start 12/27/16 at 09:00 Gabapentin (Neurontin) 100 mg TID PO Last administered on 12/27/16 20:47; Admin Dose 100 MG; Start 12/26/16 at 21:00 Metoprolol Tartrate (Lopressor) 75 mg BID PO Last administered on 12/27/16 20: 51; Admin Dose 75 MG; Start 12/26/16 at 21:00 Mycophenolate Mofetil (Cellcept) 1,000 mg BID PO Last administered on 12/27/16 20:47; Admin Dose 1,000 MG; Start 12/26/16 at 21:00 Tacrolimus (Prograf) 2 mg Q12 PO Last administered on 12/27/16 20:47; Admin Dose 2 MG; Start 12/26/16 at 21:00 Pantoprazole (Protonix Tab) 40 mg DAILY@06 PO Last administered on 12/27/16 05: 13; Admin Dose 40 MG; Start 12/27/16 at 06:00 Morphine Sulfate (morphine) 2 mg Q4H PRN IV PAIN LEVEL 6-10 Last administered on 12/27/16 20:55; Admin Dose 2 MG; Start 12/26/16 at 14:30 Diagnostic Test (Pha) (Accu-Chek) 1 ea 02 XX ; Start 12/27/16 at 02:00 Miscellaneous Information 1 ea NOTE XX ; Start 12/26/16 at 14:30 Glucose (Glutose) 15 gm Q15M PRN PO DECREASED GLUCOSE; Start 12/26/16 at 14:30 Glucose (Glutose) 22.5 gm Q15M PRN PO DECREASED GLUCOSE; Start 12/26/16 at 14:30 Dextrose (D50w Syringe) 25 ml Q15M PRN IV DECREASED GLUCOSE; Start 12/26/16 at 14:30 Dextrose (D50w Syringe) 50 ml Q15M PRN IV DECREASED GLUCOSE; Start 12/26/16 at 14:30 Glucagon (Glucagen) 1 mg Q15M PRN IM DECREASED GLUCOSE; Start 12/26/16 at 14:30 Glucose (Glutose) 15 gm Q15M PRN BUCCAL DECREASED GLUCOSE; Start 12/26/16 at 14: 30 Acetaminophen/ Hydrocodone Bitart ([place] (5/325)) 1 tab Q8 PO Last administered on 12/27/16 22:19; Admin Dose 1 TAB; Start 12/26/16 at 22:00 Insulin Glargine (Lantus) 10 unit DAILY@20 SC Last administered on 12/27/16 20: 46; Admin Dose 10 UNIT; Start 12/27/16 at 20:00 WILD DUARTE MD Dec 27, 2016 23:01
[2016-12-28] MEDS: ACCU-CHEK XX SCH (02:00)
[2016-12-28 02:47] VITALS: BP 116/60; RESP 18
[2016-12-28] MEDS: HYDROCODONE/APAP (5/325) TAB PO SCH ×4 (05:12→22:14)
[2016-12-28] MEDS: PANTOPRAZOLE (EC) 40 MG TAB PO SCH (05:12)
[2016-12-28] MEDS: morphine 2 MG INJ IV PRN ×3 (05:15→21:14)
[2016-12-28 05:25] LABS: BASOPHILS % 0.3 % (0.0-2.0); EOSINOPHILS # 0.1 10^3/ul (0.0-0.5); EOSINOPHILS % 1.8 % (0.0-7.0); HEMATOCRIT 35.7 % (37.0-47.0); HEMOGLOBIN 11.6 g/dl (12.0-16.0); LYMPHOCYTES # 1.2 10^3/ul (0.8-2.9); LYMPHOCYTES % 19.6 % (15.0-51.0); MEAN CORPUSCULAR HEMOGLOBIN 28.2 pg (29.0-33.0); MEAN CORPUSCULAR HGB CONC 32.5 g/dl (32.0-37.0); MEAN CORPUSCULAR VOLUME 86.7 fl (82.0-101.0); MEAN PLATELET VOLUME 11.1 fl (7.4-10.4); MONOCYTE # 0.7 10^3/ul (0.3-0.9); MONOCYTES % 11.6 % (0.0-11.0); NEUTROPHILS % 66.5 % (39.0-77.0); PLATELET COUNT 181 10^3/UL (140-415); RED BLOOD COUNT 4.12 10^6/ul (4.20-5.40); WHITE BLOOD COUNT 6.1 10^3/ul (4.8-10.8)
[2016-12-28 05:42] LABS: CALCIUM 9.8 mg/dl (8.4-10.2); CREATININE 0.84 mg/dl (0.44-1.00); POTASSIUM 4.5 mmol/L (3.5-5.1)
[2016-12-28 07:40] VITALS: BP 120/77; RESP 18
[2016-12-28] MEDS: INSULIN ASPART [NOVOLOG] 3 ML PEN SC SCH ×4 (07:54→21:00)
[2016-12-28] MEDS: CLOPIDOGREL 75 MG TAB PO SCH (08:57)
[2016-12-28] MEDS: GABAPENTIN 100 MG CAP PO SCH ×3 (08:57→21:21)
[2016-12-28] MEDS: TACROLIMUS 1 MG CAP PO SCH ×2 (08:58→21:21)
[2016-12-28] MEDS: CHOLECALCIFEROL 1,000 UNIT TAB PO SCH ×2 (08:58→09:14)
[2016-12-28] MEDS: MYCOPHENOLATE 250 MG CAP PO SCH ×2 (08:58→21:21)
[2016-12-28] MEDS: ASPIRIN (EC) 81 MG TAB PO SCH (08:58)
[2016-12-28] MEDS: FOLIC ACID 1 MG TAB PO SCH (08:59)
[2016-12-28] MEDS: BENAZEPRIL 10 MG TAB PO SCH (08:59)
[2016-12-28] MEDS: DOXYCYCLINE 100 MG TAB PO SCH ×2 (08:59→21:21)
[2016-12-28] MEDS: DILTIAZEM (CD) 180 MG CAP PO SCH (08:59)
[2016-12-28] MEDS: METOPROLOL 25 MG TAB PO SCH ×2 (09:00→21:25)
[2016-12-28 14:13] VITALS: BP 104/64; RESP 16
--- NOTE | 2016-12-28 14:29 | CONS ---
Date/Time of Note Date/Time of Note DATE: 12/28/16 TIME: 14:26 Assessment/Plan Assessment/Plan Chief Complaint/Hosp Course 61-year-old female known to me from previous admission. 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 Patient underwent bilateral lower extremities angiogram with multiple vascular intervention in May [address] Valencia. She was recently admitted in October 2016 and had a LE debridement for gangrene. She gets admitted again for worsening LE gangrene. Renal has been consulted for management of immunosuppresion and to prevent contrast induced nephropathy. Problems: Additional Assessment/Plan 1. 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 h/o donor kidney transplant in 2009 at [facility], currently on immunosuppression with Prograf, CellCept 4. 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 History of hypertension. 6. History of diabetes mellitus. 7. History of previous left upper extremity arteriovenous fistula. Plan: continue Current immunosuppression Prograf and cellcept, Cr normal, Na 133 Vascular surgery following IV abx as per ID, ID consulted on case Pt will need podiatry consult Renal function currently has been stable Consultation Date/Type/Reason Admit Date/Time Dec 26, 2016 at 13:22 Initial Consult Date 12/27/16 Type of Consultation: NEPHROLOGY Referring Provider: KRISTIN HALL MD 24 HR Interval Summary Free Text/Dictation remained stable, making good urine, BP stable, Cr stable Exam/Review of Systems Vital Signs Vitals Vital Signs Date Time Temp Pulse Resp B/P Pulse Ox O2 Delivery O2 Flow Rate FiO2 12/28/16 14:13 97.6 68 16 104/64 100 12/27/16 13:51 Room Air Intake and Output 12/27/16 12/27/16 12/28/16 15:00 23:00 07:00 Intake Total 470 ml 420 ml Balance 470 ml 420 ml Exam Constitutional: alert Psych: no complaints Head: normocephalic Eyes: nl conjunctiva ENMT: nl external ears & nose Neck: non-tender, supple Respiratory: clear to auscultation, diminished breath sounds, normal air movement Cardiovascular: nl pulses, regular rate and rhythm Gastrointestinal: non-tender, soft Extremities: normal pulses, other (Bilateral LE gangrene ) 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, nl mental status, nl speech, nl strength Results Result Diagram: 12/28/16 0450 12/28/16 0450 Results 24 hrs Laboratory Tests Test 12/27/16 17:05 12/27/16 20:40 12/28/16 04:50 12/28/16 07:53 Bedside Glucose 98 118 93 White Blood Count 6.1 Red Blood Count 4.12 L Hemoglobin 11.6 L Hematocrit 35.7 L Mean Corpuscular Volume 86.7 Mean Corpuscular Hemoglobin 28.2 L Mean Corpuscular Hemoglobin Concent 32.5 Red Cell Distribution Width 14.0 Platelet Count 181 Mean Platelet Volume 11.1 H Neutrophils % 66.5 Lymphocytes % 19.6 Monocytes % 11.6 H Eosinophils % 1.8 Basophils % 0.3 Nucleated Red Blood Cells % 0.0 Neutrophils # (Manual) 4.1 Lymphocytes # 1.2 Monocytes # 0.7 Eosinophils # 0.1 Basophils # 0.0 Nucleated Red Blood Cells # 0.0 Sodium Level 133 L Potassium Level 4.5 Chloride Level 102 Carbon Dioxide Level 25 Anion Gap 11 Blood Urea Nitrogen 17 Creatinine 0.84 Glucose Level 86 Calcium Level 9.8 Test 12/28/16 12:05 Bedside Glucose 132 Medications Medications Current Medications Aspirin (Halfprin) 81 mg DAILY PO Last administered on 12/28/16 08:58; Admin Dose 81 MG; Start 12/27/16 at 09:00 Benazepril HCl (Lotensin) 10 mg DAILY PO Last administered on 12/28/16 08:59; Admin Dose 10 MG; Start 12/27/16 at 09:00 Clopidogrel Bisulfate (plaVIX) 75 mg DAILY PO Last administered on 12/28/16 08: 57; Admin Dose 75 MG; Start 12/27/16 at 09:00 Diltiazem HCl (Cardizem Cd) 180 mg DAILY PO Last administered on 12/28/16 08:59 ; Admin Dose 180 MG; Start 12/26/16 at 14:00 Doxycycline Hyclate (Vibramycin) 100 mg BID PO Last administered on 12/28/16 08 :59; Admin Dose 100 MG; Start 12/26/16 at 21:00 Famotidine (Pepcid) 40 mg HS PO Last administered on 12/27/16 20:47; Admin Dose 40 MG; Start 12/26/16 at 21:00 Folic Acid (Folic Acid) 1 mg DAILY PO Last administered on 12/28/16 08:59; Admin Dose 1 MG; Start 12/27/16 at 09:00 Gabapentin (Neurontin) 100 mg TID PO Last administered on 12/28/16 13:17; Admin Dose 100 MG; Start 12/26/16 at 21:00 Metoprolol Tartrate (Lopressor) 75 mg BID PO Last administered on 12/28/16 09: 00; Admin Dose 75 MG; Start 12/26/16 at 21:00 Mycophenolate Mofetil (Cellcept) 1,000 mg BID PO Last administered on 12/28/16 08:58; Admin Dose 1,000 MG; Start 12/26/16 at 21:00 Tacrolimus (Prograf) 2 mg Q12 PO Last administered on 12/28/16 08:58; Admin Dose 2 MG; Start 12/26/16 at 21:00 Pantoprazole (Protonix Tab) 40 mg DAILY@06 PO Last administered on 12/28/16 05: 12; Admin Dose 40 MG; Start 12/27/16 at 06:00 Morphine Sulfate (morphine) 2 mg Q4H PRN IV PAIN LEVEL 6-10 Last administered on 12/28/16 09:14; Admin Dose 2 MG; Start 12/26/16 at 14:30 Diagnostic Test (Pha) (Accu-Chek) 1 ea 02 XX ; Start 12/27/16 at 02:00 Miscellaneous Information 1 ea NOTE XX ; Start 12/26/16 at 14:30 Glucose (Glutose) 15 gm Q15M PRN PO DECREASED GLUCOSE; Start 12/26/16 at 14:30 Glucose (Glutose) 22.5 gm Q15M PRN PO DECREASED GLUCOSE; Start 12/26/16 at 14:30 Dextrose (D50w Syringe) 25 ml Q15M PRN IV DECREASED GLUCOSE; Start 12/26/16 at 14:30 Dextrose (D50w Syringe) 50 ml Q15M PRN IV DECREASED GLUCOSE; Start 12/26/16 at 14:30 Glucagon (Glucagen) 1 mg Q15M PRN IM DECREASED GLUCOSE; Start 12/26/16 at 14:30 Glucose (Glutose) 15 gm Q15M PRN BUCCAL DECREASED GLUCOSE; Start 12/26/16 at 14: 30 Acetaminophen/ Hydrocodone Bitart ([place] (5/325)) 1 tab Q8 PO Last administered on 12/28/16 06:33; Admin Dose 1 TAB; Start 12/26/16 at 22:00 Insulin Glargine (Lantus) 10 unit DAILY@20 SC Last administered on 12/27/16 20: 46; Admin Dose 10 UNIT; Start 12/27/16 at 20:00 Cholecalciferol (Vitamin D) 1,000 unit DAILY PO Last administered on 12/28/16 09:14; Admin Dose 1,000 UNIT; Start 12/28/16 at 09:00 RAMON KEMP MD Dec 28, 2016 14:29
--- NOTE | 2016-12-28 16:14 | CONS ---
Date/Time of Note Date/Time of Note DATE: 12/28/16 TIME: 16:10 Assessment/Plan Assessment/Plan Chief Complaint/Hosp Course SUBJECTIVE DATA: Alert, looks comfortable, denies pain, no fevers ANTIMICROBIALS: Doxycycline GENERAL: This is a fragile well-developed elderly woman who is alert in no distress. HEENT: Head atraumatic, normocephalic. Sclerae anicteric. Buccal mucosa pink. NECK: Supple. CHEST: Rise symmetrical. Breath sounds clear. HEART: S1, S2. ABDOMEN: Soft, bowel sounds present. EXTREMITIES: B feet dressing present AND intact. ASSESSMENT: 1. Bilateral foot gangrene, worsening. Status post revascularization procedure and multiple debridement 2. Hypertension. 3. Diabetes. 4. History of kidney transplant in 2009. On immunosuppressive therapy. 5. Anemia. PLAN: Clinically stable, continue present care, f/u vascular and podiatry rec-s , may need amputation DW staff Problems: Consultation Date/Type/Reason Admit Date/Time Dec 26, 2016 at 13:22 Initial Consult Date 12/27/16 Type of Consultation: ID Referring Provider: KRISTIN HALL MD Exam/Review of Systems Vital Signs Vitals Vital Signs Date Time Temp Pulse Resp B/P Pulse Ox O2 Delivery O2 Flow Rate FiO2 12/28/16 14:13 97.6 68 16 104/64 100 12/27/16 13:51 Room Air Intake and Output 12/27/16 12/27/16 12/28/16 15:00 23:00 07:00 Intake Total 470 ml 420 ml Balance 470 ml 420 ml Results Result Diagram: 12/28/16 0450 12/28/16 0450 Results 24 hrs Laboratory Tests Test 12/27/16 17:05 12/27/16 20:40 12/28/16 04:50 12/28/16 07:53 Bedside Glucose 98 118 93 White Blood Count 6.1 Red Blood Count 4.12 L Hemoglobin 11.6 L Hematocrit 35.7 L Mean Corpuscular Volume 86.7 Mean Corpuscular Hemoglobin 28.2 L Mean Corpuscular Hemoglobin Concent 32.5 Red Cell Distribution Width 14.0 Platelet Count 181 Mean Platelet Volume 11.1 H Neutrophils % 66.5 Lymphocytes % 19.6 Monocytes % 11.6 H Eosinophils % 1.8 Basophils % 0.3 Nucleated Red Blood Cells % 0.0 Neutrophils # (Manual) 4.1 Lymphocytes # 1.2 Monocytes # 0.7 Eosinophils # 0.1 Basophils # 0.0 Nucleated Red Blood Cells # 0.0 Sodium Level 133 L Potassium Level 4.5 Chloride Level 102 Carbon Dioxide Level 25 Anion Gap 11 Blood Urea Nitrogen 17 Creatinine 0.84 Glucose Level 86 Calcium Level 9.8 Test 12/28/16 12:05 Bedside Glucose 132 Medications Medications Current Medications Aspirin (Halfprin) 81 mg DAILY PO Last administered on 12/28/16 08:58; Admin Dose 81 MG; Start 12/27/16 at 09:00 Benazepril HCl (Lotensin) 10 mg DAILY PO Last administered on 12/28/16 08:59; Admin Dose 10 MG; Start 12/27/16 at 09:00 Clopidogrel Bisulfate (plaVIX) 75 mg DAILY PO Last administered on 12/28/16 08: 57; Admin Dose 75 MG; Start 12/27/16 at 09:00 Diltiazem HCl (Cardizem Cd) 180 mg DAILY PO Last administered on 12/28/16 08:59 ; Admin Dose 180 MG; Start 12/26/16 at 14:00 Doxycycline Hyclate (Vibramycin) 100 mg BID PO Last administered on 12/28/16 08 :59; Admin Dose 100 MG; Start 12/26/16 at 21:00 Famotidine (Pepcid) 40 mg HS PO Last administered on 12/27/16 20:47; Admin Dose 40 MG; Start 12/26/16 at 21:00 Folic Acid (Folic Acid) 1 mg DAILY PO Last administered on 12/28/16 08:59; Admin Dose 1 MG; Start 12/27/16 at 09:00 Gabapentin (Neurontin) 100 mg TID PO Last administered on 12/28/16 13:17; Admin Dose 100 MG; Start 12/26/16 at 21:00 Metoprolol Tartrate (Lopressor) 75 mg BID PO Last administered on 12/28/16 09: 00; Admin Dose 75 MG; Start 12/26/16 at 21:00 Mycophenolate Mofetil (Cellcept) 1,000 mg BID PO Last administered on 12/28/16 08:58; Admin Dose 1,000 MG; Start 12/26/16 at 21:00 Tacrolimus (Prograf) 2 mg Q12 PO Last administered on 12/28/16 08:58; Admin Dose 2 MG; Start 12/26/16 at 21:00 Pantoprazole (Protonix Tab) 40 mg DAILY@06 PO Last administered on 12/28/16 05: 12; Admin Dose 40 MG; Start 12/27/16 at 06:00 Morphine Sulfate (morphine) 2 mg Q4H PRN IV PAIN LEVEL 6-10 Last administered on 12/28/16 09:14; Admin Dose 2 MG; Start 12/26/16 at 14:30 Diagnostic Test (Pha) (Accu-Chek) 1 ea 02 XX ; Start 12/27/16 at 02:00 Miscellaneous Information 1 ea NOTE XX ; Start 12/26/16 at 14:30 Glucose (Glutose) 15 gm Q15M PRN PO DECREASED GLUCOSE; Start 12/26/16 at 14:30 Glucose (Glutose) 22.5 gm Q15M PRN PO DECREASED GLUCOSE; Start 12/26/16 at 14:30 Dextrose (D50w Syringe) 25 ml Q15M PRN IV DECREASED GLUCOSE; Start 12/26/16 at 14:30 Dextrose (D50w Syringe) 50 ml Q15M PRN IV DECREASED GLUCOSE; Start 12/26/16 at 14:30 Glucagon (Glucagen) 1 mg Q15M PRN IM DECREASED GLUCOSE; Start 12/26/16 at 14:30 Glucose (Glutose) 15 gm Q15M PRN BUCCAL DECREASED GLUCOSE; Start 12/26/16 at 14: 30 Acetaminophen/ Hydrocodone Bitart ([place] (5/325)) 1 tab Q8 PO Last administered on 12/28/16 15:10; Admin Dose 1 TAB; Start 12/26/16 at 22:00 Insulin Glargine (Lantus) 10 unit DAILY@20 SC Last administered on 12/27/16 20: 46; Admin Dose 10 UNIT; Start 12/27/16 at 20:00 Cholecalciferol (Vitamin D) 1,000 unit DAILY PO Last administered on 12/28/16 09:14; Admin Dose 1,000 UNIT; Start 12/28/16 at 09:00 JACQUES HUERTA NP Dec 28, 2016 16:14
--- NOTE | 2016-12-28 18:51 | RADRPT ---
PROCEDURE: US bilateral lower extremity arteries. CLINICAL INDICATION: Bilateral leg pain. Claudication that interferes significantly with the judy ent's lifestyle. TECHNIQUE: Multiple longitudinal and transverse images of the bilateral lower extremity arteries w ere obtained with kirkland scale, pulsed Doppler, and color Doppler imaging. COMPARISON: No prior studies are available for comparison. FINDINGS: Right PRIMER INSERTING MACHINE ADJUSTER:92 cm/sec PSFA:139 cm/sec MSFA:44 cm/sec DSFA:30 cm/sec POP:81 cm/sec TITLE ONE TEACHER:52 cm/sec DPA:60 cm/sec Left PRIMER INSERTING MACHINE ADJUSTER:149 cm/sec PSFA:223 cm/sec MSFA:40 cm/sec DSFA:20 cm/sec POP:826 cm/sec TITLE ONE TEACHER:Occluded DPA:Occluded The ankle brachial indices were unobtainable due to calcified vessels. On the right side, there is normal triphasic flow in the common femoral artery and proximal superfic ial femoral artery. A region of high-grade stenosis is present in the proximal to mid right superfic ial femoral artery with monophasic flow distal to this region of stenosis. On the left side, there is normal triphasic flow in the common femoral artery and proximal superfici al femoral artery. A region of high-grade stenosis is present in the proximal to mid left superfici al femoral artery with monophasic flow distal to this region of stenosis. There is no flow detected in the left posterior tibial artery and dorsalis pedis artery. IMPRESSION: 1. Significant stenosis bilaterally in the proximal to mid superficial femoral artery. 2. Occluded left calf arteries. RPTAT: QQ .Hernan Baker MD, Date Time Electronically viewed and signed by .Hernan Baker MD, on 12/28/2016 18:51 .R/
--- NOTE | 2016-12-28 19:56 | PN ---
Date/Time of Note Date/Time of Note DATE: 12/28/16 TIME: 19:53 Assessment/Plan Lines/Catheters IV Catheter Type (from Nrsg): Saline Lock Urinary Cath still in place: No Assessment/Plan Assessment/Plan - Non healing wounds BLE - per Dr. Valencia in vascular surgery consultation. Continue pain medication. - per ID - End-stage renal disease status post renal transplant. Continues CellCept and tacrolimus. - per nephro - Hypertension. 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 - Anemia of chronic kidney disease. - Severe peripheral arterial disease. Further recommendations based on clinical course. Plan of care discussed with Dr. Cohen. Subjective 24 Hr Interval Summary Free Text/Dictation c/o BLE pain due to wounds, sp arterial study- vascular follows. dw staff- Simon Respiratory: no complaints Cardiovascular: chest pain Gastrointestinal: no complaints Genitourinary: no complaints Musculoskeletal: bone/joint pain Skin: erythema, skin lesions Exam/Review of Systems Vital Signs Vitals Vital Signs Date Time Temp Pulse Resp B/P Pulse Ox O2 Delivery O2 Flow Rate FiO2 12/28/16 14:13 97.6 68 16 104/64 100 12/27/16 13:51 Room Air Intake and Output 12/27/16 12/27/16 12/28/16 15:00 23:00 07:00 Intake Total 470 ml 420 ml Balance 470 ml 420 ml Exam Constitutional: alert, frail, oriented Psych: nl mood/affect Respiratory: clear to auscultation, normal air movement Cardiovascular: regular rate and rhythm Gastrointestinal: non-tender, soft Musculoskeletal: other Neurological: nl mental status, nl speech Results Result Diagram: 12/28/16 0450 12/28/16 0450 Results 24 hrs Laboratory Tests Test 12/27/16 20:40 12/28/16 04:50 12/28/16 07:53 12/28/16 12:05 Bedside Glucose 118 93 132 White Blood Count 6.1 Red Blood Count 4.12 L Hemoglobin 11.6 L Hematocrit 35.7 L Mean Corpuscular Volume 86.7 Mean Corpuscular Hemoglobin 28.2 L Mean Corpuscular Hemoglobin Concent 32.5 Red Cell Distribution Width 14.0 Platelet Count 181 Mean Platelet Volume 11.1 H Neutrophils % 66.5 Lymphocytes % 19.6 Monocytes % 11.6 H Eosinophils % 1.8 Basophils % 0.3 Nucleated Red Blood Cells % 0.0 Neutrophils # (Manual) 4.1 Lymphocytes # 1.2 Monocytes # 0.7 Eosinophils # 0.1 Basophils # 0.0 Nucleated Red Blood Cells # 0.0 Sodium Level 133 L Potassium Level 4.5 Chloride Level 102 Carbon Dioxide Level 25 Anion Gap 11 Blood Urea Nitrogen 17 Creatinine 0.84 Glucose Level 86 Calcium Level 9.8 Test 12/28/16 17:14 Bedside Glucose 115 Medications Medications Current Medications Aspirin (Halfprin) 81 mg DAILY PO Last administered on 12/28/16 08:58; Admin Dose 81 MG; Start 12/27/16 at 09:00 Benazepril HCl (Lotensin) 10 mg DAILY PO Last administered on 12/28/16 08:59; Admin Dose 10 MG; Start 12/27/16 at 09:00 Clopidogrel Bisulfate (plaVIX) 75 mg DAILY PO Last administered on 12/28/16 08: 57; Admin Dose 75 MG; Start 12/27/16 at 09:00 Diltiazem HCl (Cardizem Cd) 180 mg DAILY PO Last administered on 12/28/16 08:59 ; Admin Dose 180 MG; Start 12/26/16 at 14:00 Doxycycline Hyclate (Vibramycin) 100 mg BID PO Last administered on 12/28/16 08 :59; Admin Dose 100 MG; Start 12/26/16 at 21:00 Famotidine (Pepcid) 40 mg HS PO Last administered on 12/27/16 20:47; Admin Dose 40 MG; Start 12/26/16 at 21:00 Folic Acid (Folic Acid) 1 mg DAILY PO Last administered on 12/28/16 08:59; Admin Dose 1 MG; Start 12/27/16 at 09:00 Gabapentin (Neurontin) 100 mg TID PO Last administered on 12/28/16 13:17; Admin Dose 100 MG; Start 12/26/16 at 21:00 Metoprolol Tartrate (Lopressor) 75 mg BID PO Last administered on 12/28/16 09: 00; Admin Dose 75 MG; Start 12/26/16 at 21:00 Mycophenolate Mofetil (Cellcept) 1,000 mg BID PO Last administered on 12/28/16 08:58; Admin Dose 1,000 MG; Start 12/26/16 at 21:00 Tacrolimus (Prograf) 2 mg Q12 PO Last administered on 12/28/16 08:58; Admin Dose 2 MG; Start 12/26/16 at 21:00 Pantoprazole (Protonix Tab) 40 mg DAILY@06 PO Last administered on 12/28/16 05: 12; Admin Dose 40 MG; Start 12/27/16 at 06:00 Morphine Sulfate (morphine) 2 mg Q4H PRN IV PAIN LEVEL 6-10 Last administered on 12/28/16 09:14; Admin Dose 2 MG; Start 12/26/16 at 14:30 Diagnostic Test (Pha) (Accu-Chek) 1 ea 02 XX ; Start 12/27/16 at 02:00 Miscellaneous Information 1 ea NOTE XX ; Start 12/26/16 at 14:30 Glucose (Glutose) 15 gm Q15M PRN PO DECREASED GLUCOSE; Start 12/26/16 at 14:30 Glucose (Glutose) 22.5 gm Q15M PRN PO DECREASED GLUCOSE; Start 12/26/16 at 14:30 Dextrose (D50w Syringe) 25 ml Q15M PRN IV DECREASED GLUCOSE; Start 12/26/16 at 14:30 Dextrose (D50w Syringe) 50 ml Q15M PRN IV DECREASED GLUCOSE; Start 12/26/16 at 14:30 Glucagon (Glucagen) 1 mg Q15M PRN IM DECREASED GLUCOSE; Start 12/26/16 at 14:30 Glucose (Glutose) 15 gm Q15M PRN BUCCAL DECREASED GLUCOSE; Start 12/26/16 at 14: 30 Acetaminophen/ Hydrocodone Bitart ([place] (5/325)) 1 tab Q8 PO Last administered on 12/28/16 15:10; Admin Dose 1 TAB; Start 12/26/16 at 22:00 Insulin Glargine (Lantus) 10 unit DAILY@20 SC Last administered on 12/27/16 20: 46; Admin Dose 10 UNIT; Start 12/27/16 at 20:00 Cholecalciferol (Vitamin D) 1,000 unit DAILY PO Last administered on 12/28/16 09:14; Admin Dose 1,000 UNIT; Start 12/28/16 at 09:00 TIM BENNETT Dec 28, 2016 19:56
[2016-12-28 20:04] VITALS: BP 114/68; RESP 18
[2016-12-28] MEDS: INSULIN GLARGINE [LANtus] 3 ML PEN SC SCH (21:20)
[2016-12-28] MEDS: FAMOTIDINE 20 MG TAB PO SCH (21:21)
[2016-12-29] MEDS: ACCU-CHEK XX SCH (02:00)
[2016-12-29 03:06] VITALS: BP 103/60; RESP 18
[2016-12-29 05:25] LABS: BASOPHILS % 0.1 % (0.0-2.0); EOSINOPHILS # 0.1 10^3/ul (0.0-0.5); EOSINOPHILS % 1.2 % (0.0-7.0); HEMATOCRIT 36.5 % (37.0-47.0); HEMOGLOBIN 11.9 g/dl (12.0-16.0); LYMPHOCYTES # 1.5 10^3/ul (0.8-2.9); LYMPHOCYTES % 19.1 % (15.0-51.0); MEAN CORPUSCULAR HEMOGLOBIN 28.1 pg (29.0-33.0); MEAN CORPUSCULAR HGB CONC 32.6 g/dl (32.0-37.0); MEAN CORPUSCULAR VOLUME 86.3 fl (82.0-101.0); MEAN PLATELET VOLUME 11.7 fl (7.4-10.4); MONOCYTE # 0.9 10^3/ul (0.3-0.9); MONOCYTES % 11.4 % (0.0-11.0); NEUTROPHILS % 67.9 % (39.0-77.0); PLATELET COUNT 187 10^3/UL (140-415); RED BLOOD COUNT 4.23 10^6/ul (4.20-5.40); WHITE BLOOD COUNT 7.8 10^3/ul (4.8-10.8)
[2016-12-29 06:11] LABS: CALCIUM 9.7 mg/dl (8.4-10.2); CREATININE 0.84 mg/dl (0.44-1.00); POTASSIUM 4.8 mmol/L (3.5-5.1)
[2016-12-29] MEDS: PANTOPRAZOLE (EC) 40 MG TAB PO SCH (06:16)
[2016-12-29] MEDS: HYDROCODONE/APAP (5/325) TAB PO SCH ×3 (06:16→22:02)
[2016-12-29 07:40] VITALS: BP 130/68; RESP 16
[2016-12-29] MEDS: INSULIN ASPART [NOVOLOG] 3 ML PEN SC SCH ×4 (07:40→21:00)
[2016-12-29] MEDS: DOXYCYCLINE 100 MG TAB PO SCH ×2 (09:16→20:52)
[2016-12-29] MEDS: TACROLIMUS 1 MG CAP PO SCH ×2 (09:16→20:52)
[2016-12-29] MEDS: FOLIC ACID 1 MG TAB PO SCH (09:16)
[2016-12-29] MEDS: MYCOPHENOLATE 250 MG CAP PO SCH ×2 (09:16→20:52)
[2016-12-29] MEDS: DILTIAZEM (CD) 180 MG CAP PO SCH (09:17)
[2016-12-29] MEDS: GABAPENTIN 100 MG CAP PO SCH ×3 (09:17→20:52)
[2016-12-29] MEDS: CLOPIDOGREL 75 MG TAB PO SCH (09:17)
[2016-12-29] MEDS: ASPIRIN (EC) 81 MG TAB PO SCH (09:17)
[2016-12-29] MEDS: CHOLECALCIFEROL 1,000 UNIT TAB PO SCH (09:17)
[2016-12-29] MEDS: BENAZEPRIL 10 MG TAB PO SCH (09:18)
[2016-12-29] MEDS: METOPROLOL 25 MG TAB PO SCH ×2 (09:18→20:53)
--- NOTE | 2016-12-29 13:53 | PN ---
Date/Time of Note Date/Time of Note DATE: 12/29/16 TIME: 13:51 Assessment/Plan VTE Prophylaxis VTE Prophylaxis Intervention: other Lines/Catheters IV Catheter Type (from Nrs): Saline Lock Urinary Cath still in place: No Assessment/Plan Assessment/Plan - Non healing wounds BLE - per Dr. Valencia in vascular surgery consultation. Continue pain medication. - per ID - End-stage renal disease status post renal transplant. Continues CellCept and tacrolimus. - per nephro - Hypertension. 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 - Anemia of chronic kidney disease. - Severe peripheral arterial disease. Further recommendations based on clinical course. Plan of care discussed with Dr. Cohen. Subjective 24 Hr Interval Summary Cardiovascular: no complaints Gastrointestinal: no complaints Genitourinary: no complaints Musculoskeletal: bone/joint pain Skin: skin lesions Exam/Review of Systems Vital Signs Vitals Vital Signs Date Time Temp Pulse Resp B/P Pulse Ox O2 Delivery O2 Flow Rate FiO2 12/29/16 07:40 97.7 64 16 130/68 100 12/27/16 13:51 Room Air Intake and Output 12/28/16 12/28/16 12/29/16 15:00 23:00 07:00 Intake Total 620 ml 480 ml Balance 620 ml 480 ml Exam Constitutional: alert, oriented Respiratory: clear to auscultation Cardiovascular: nl pulses, regular rate and rhythm Gastrointestinal: non-tender, soft Musculoskeletal: nl extremities to inspection, other Results Result Diagram: 12/29/16 0437 12/29/16 0437 Results 24 hrs Laboratory Tests Test 12/28/16 17:14 12/28/16 21:06 12/29/16 04:37 12/29/16 07:39 Bedside Glucose 115 100 101 White Blood Count 7.8 # Red Blood Count 4.23 Hemoglobin 11.9 L Hematocrit 36.5 L Mean Corpuscular Volume 86.3 Mean Corpuscular Hemoglobin 28.1 L Mean Corpuscular Hemoglobin Concent 32.6 Red Cell Distribution Width 14.0 Platelet Count 187 Mean Platelet Volume 11.7 H Neutrophils % 67.9 Lymphocytes % 19.1 Monocytes % 11.4 H Eosinophils % 1.2 Basophils % 0.1 Nucleated Red Blood Cells % 0.0 Neutrophils # (Manual) 5.3 Lymphocytes # 1.5 Monocytes # 0.9 Eosinophils # 0.1 Basophils # 0.0 Nucleated Red Blood Cells # 0.0 Sodium Level 133 L Potassium Level 4.8 Chloride Level 101 Carbon Dioxide Level 24 Anion Gap 13 Blood Urea Nitrogen 19 Creatinine 0.84 Glucose Level 69 #L Calcium Level 9.7 Test 12/29/16 11:50 Bedside Glucose 136 Medications Medications Current Medications Aspirin (Halfprin) 81 mg DAILY PO Last administered on 12/29/16 09:17; Admin Dose 81 MG; Start 12/27/16 at 09:00 Benazepril HCl (Lotensin) 10 mg DAILY PO Last administered on 12/29/16 09:18; Admin Dose 10 MG; Start 12/27/16 at 09:00 Clopidogrel Bisulfate (plaVIX) 75 mg DAILY PO Last administered on 12/29/16 09 :17; Admin Dose 75 MG; Start 12/27/16 at 09:00 Diltiazem HCl (Cardizem Cd) 180 mg DAILY PO Last administered on 12/29/16 09: 17; Admin Dose 180 MG; Start 12/26/16 at 14:00 Doxycycline Hyclate (Vibramycin) 100 mg BID PO Last administered on 12/29/16 09:16; Admin Dose 100 MG; Start 12/26/16 at 21:00 Famotidine (Pepcid) 40 mg HS PO Last administered on 12/28/16 21:21; Admin Dose 40 MG; Start 12/26/16 at 21:00 Folic Acid (Folic Acid) 1 mg DAILY PO Last administered on 12/29/16 09:16; Admin Dose 1 MG; Start 12/27/16 at 09:00 Gabapentin (Neurontin) 100 mg TID PO Last administered on 12/29/16 13:04; Admin Dose 100 MG; Start 12/26/16 at 21:00 Metoprolol Tartrate (Lopressor) 75 mg BID PO Last administered on 12/29/16 09: 18; Admin Dose 75 MG; Start 12/26/16 at 21:00 Mycophenolate Mofetil (Cellcept) 1,000 mg BID PO Last administered on 09:16; Admin Dose 1,000 MG; Start 12/26/16 at 21:00 Tacrolimus (Prograf) 2 mg Q12 PO Last administered on 12/29/16 09:16; Admin Dose 2 MG; Start 12/26/16 at 21:00 Pantoprazole (Protonix Tab) 40 mg DAILY@06 PO Last administered on 12/29/16 06 :16; Admin Dose 40 MG; Start 12/27/16 at 06:00 Morphine Sulfate (morphine) 2 mg Q4H PRN IV PAIN LEVEL 6-10 Last administered on 12/28/16 21:14; Admin Dose 2 MG; Start 12/26/16 at 14:30 Diagnostic Test (Pha) (Accu-Chek) 1 ea 02 XX ; Start 12/27/16 at 02:00 Miscellaneous Information 1 ea NOTE XX ; Start 12/26/16 at 14:30 Glucose (Glutose) 15 gm Q15M PRN PO DECREASED GLUCOSE; Start 12/26/16 at 14:30 Glucose (Glutose) 22.5 gm Q15M PRN PO DECREASED GLUCOSE; Start 12/26/16 at 14:30 Dextrose (D50w Syringe) 25 ml Q15M PRN IV DECREASED GLUCOSE; Start 12/26/16 at 14:30 Dextrose (D50w Syringe) 50 ml Q15M PRN IV DECREASED GLUCOSE; Start 12/26/16 at 14:30 Glucagon (Glucagen) 1 mg Q15M PRN IM DECREASED GLUCOSE; Start 12/26/16 at 14:30 Glucose (Glutose) 15 gm Q15M PRN BUCCAL DECREASED GLUCOSE; Start 12/26/16 at 14: 30 Acetaminophen/ Hydrocodone Bitart ([place] (5/325)) 1 tab Q8 PO Last administered on 12/29/16 06:16; Admin Dose 1 TAB; Start 12/26/16 at 22:00 Cholecalciferol (Vitamin D) 1,000 unit DAILY PO Last administered on 12/29/16 09:17; Admin Dose 1,000 UNIT; Start 12/28/16 at 09:00 Insulin Glargine (Lantus) 7 unit DAILY@20 SC ; Start 12/29/16 at 20:00 TIM BENNETT Dec 29, 2016 13:53
[2016-12-29 14:21] VITALS: BP_SYST 109; BP_SYST 121; BP_DIAS 60; BP_DIAS 64; RESP 16; RESP 18
--- NOTE | 2016-12-29 14:21 | CONS ---
Date/Time of Note Date/Time of Note DATE: 12/29/16 TIME: 14:19 Assessment/Plan Assessment/Plan Additional Assessment/Plan 1. 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 h/o donor kidney transplant in [address] [facility], currently on immunosuppression with Prograf, CellCept 4. 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 History of hypertension. 6. History of diabetes mellitus. 7. History of previous left upper extremity arteriovenous fistula. Plan: continue Current immunosuppression Prograf and cellcept, Cr normal, Na 133 Vascular surgery following IV abx as per ID, ID consulted on case Pt will need podiatry consult Renal function currently has been stable Consultation Date/Type/Reason Admit Date/Time Dec 26, 2016 at 13:22 Initial Consult Date 12/27/16 Type of Consultation: NEPHROLOGY Referring Provider: KRISTIN HALL MD Exam/Review of Systems Vital Signs Vitals Vital Signs Date Time Temp Pulse Resp B/P Pulse Ox O2 Delivery O2 Flow Rate FiO2 12/29/16 07:40 97.7 64 16 130/68 100 12/27/16 13:51 Room Air Intake and Output 12/28/16 12/28/16 12/29/16 15:00 23:00 07:00 Intake Total 620 ml 480 ml Balance 620 ml 480 ml Exam Constitutional: alert Psych: no complaints Head: normocephalic Eyes: nl conjunctiva ENMT: nl external ears & nose Neck: non-tender, supple Respiratory: clear to auscultation, diminished breath sounds, normal air movement Cardiovascular: nl pulses, regular rate and rhythm Gastrointestinal: non-tender, soft Extremities: normal pulses, other (Bilateral LE gangrene ) 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, nl mental status, nl speech, nl strength Results Result Diagram: 12/29/1643612/29/16436 Results 24 hrs Laboratory Tests Test 12/28/16 17:14 12/28/16 21:06 12/29/16 04:37 12/29/16 07:39 Bedside Glucose 115 100 101 White Blood Count 7.8 # Red Blood Count 4.23 Hemoglobin 11.9 L Hematocrit 36.5 L Mean Corpuscular Volume 86.3 Mean Corpuscular Hemoglobin 28.1 L Mean Corpuscular Hemoglobin Concent 32.6 Red Cell Distribution Width 14.0 Platelet Count 187 Mean Platelet Volume 11.7 H Neutrophils % 67.9 Lymphocytes % 19.1 Monocytes % 11.4 H Eosinophils % 1.2 Basophils % 0.1 Nucleated Red Blood Cells % 0.0 Neutrophils # (Manual) 5.3 Lymphocytes # 1.5 Monocytes # 0.9 Eosinophils # 0.1 Basophils # 0.0 Nucleated Red Blood Cells # 0.0 Sodium Level 133 L Potassium Level 4.8 Chloride Level 101 Carbon Dioxide Level 24 Anion Gap 13 Blood Urea Nitrogen 19 Creatinine 0.84 Glucose Level 69 #L Calcium Level 9.7 Test 12/29/16 11:50 Bedside Glucose 136 Medications Medications Current Medications Aspirin (Halfprin) 81 mg DAILY PO Last administered on 12/29/16 09:17; Admin Dose 81 MG; Start 12/27/16 at 09:00 Benazepril HCl (Lotensin) 10 mg DAILY PO Last administered on 12/29/16 09:18; Admin Dose 10 MG; Start 12/27/16 at 09:00 Clopidogrel Bisulfate (plaVIX) 75 mg DAILY PO Last administered on 12/29/16 09 :17; Admin Dose 75 MG; Start 12/27/16 at 09:00 Diltiazem HCl (Cardizem Cd) 180 mg DAILY PO Last administered on 12/29/16 09: 17; Admin Dose 180 MG; Start 12/26/16 at 14:00 Doxycycline Hyclate (Vibramycin) 100 mg BID PO Last administered on 12/29/16 09:16; Admin Dose 100 MG; Start 12/26/16 at 21:00 Famotidine (Pepcid) 40 mg HS PO Last administered on 12/28/16 21:21; Admin Dose 40 MG; Start 12/26/16 at 21:00 Folic Acid (Folic Acid) 1 mg DAILY PO Last administered on 12/29/16 09:16; Admin Dose 1 MG; Start 12/27/16 at 09:00 Gabapentin (Neurontin) 100 mg TID PO Last administered on 12/29/16 13:04; Admin Dose 100 MG; Start 12/26/16 at 21:00 Metoprolol Tartrate (Lopressor) 75 mg BID PO Last administered on 12/29/16 09: 18; Admin Dose 75 MG; Start 12/26/16 at 21:00 Mycophenolate Mofetil (Cellcept) 1,000 mg BID PO Last administered on 09:16; Admin Dose 1,000 MG; Start 12/26/16 at 21:00 Tacrolimus (Prograf) 2 mg Q12 PO Last administered on 12/29/16 09:16; Admin Dose 2 MG; Start 12/26/16 at 21:00 Pantoprazole (Protonix Tab) 40 mg DAILY@06 PO Last administered on 12/29/16 06 :16; Admin Dose 40 MG; Start 12/27/16 at 06:00 Morphine Sulfate (morphine) 2 mg Q4H PRN IV PAIN LEVEL 6-10 Last administered on 12/28/16 21:14; Admin Dose 2 MG; Start 12/26/16 at 14:30 Diagnostic Test (Pha) (Accu-Chek) 1 ea 02 XX ; Start 12/27/16 at 02:00 Miscellaneous Information 1 ea NOTE XX ; Start 12/26/16 at 14:30 Glucose (Glutose) 15 gm Q15M PRN PO DECREASED GLUCOSE; Start 12/26/16 at 14:30 Glucose (Glutose) 22.5 gm Q15M PRN PO DECREASED GLUCOSE; Start 12/26/16 at 14:30 Dextrose (D50w Syringe) 25 ml Q15M PRN IV DECREASED GLUCOSE; Start 12/26/16 at 14:30 Dextrose (D50w Syringe) 50 ml Q15M PRN IV DECREASED GLUCOSE; Start 12/26/16 at 14:30 Glucagon (Glucagen) 1 mg Q15M PRN IM DECREASED GLUCOSE; Start 12/26/16 at 14:30 Glucose (Glutose) 15 gm Q15M PRN BUCCAL DECREASED GLUCOSE; Start 12/26/16 at 14: 30 Acetaminophen/ Hydrocodone Bitart ([place] (5/325)) 1 tab Q8 PO Last administered on 12/29/16 14:08; Admin Dose 1 TAB; Start 12/26/16 at 22:00 Cholecalciferol (Vitamin D) 1,000 unit DAILY PO Last administered on 12/29/16 09:17; Admin Dose 1,000 UNIT; Start 12/28/16 at 09:00 Insulin Glargine (Lantus) 7 unit DAILY@20 SC ; Start 12/29/16 at 20:00 RAMON KMEP MD Dec 29, 2016 14:20
--- NOTE | 2016-12-29 17:17 | CONS ---
Date/Time of Note Date/Time of Note DATE: 12/29/16 TIME: 17:13 Assessment/Plan Assessment/Plan Chief Complaint/Hosp Course SUBJECTIVE DATA: Alert. Looks comfortable. Denies pain. No fevers. ANTIMICROBIALS: Doxycycline GENERAL: This is a fragile well-developed elderly woman who is alert in no distress. HEENT: Head atraumatic, normocephalic. Sclerae anicteric. Buccal mucosa pink. NECK: Supple. CHEST: Rise symmetrical. Breath sounds clear. HEART: S1, S2. ABDOMEN: Soft, bowel sounds present. EXTREMITIES: B feet dressing present AND intact. ASSESSMENT: 1. Bilateral foot gangrene, worsening. Status post revascularization procedure and multiple debridement 2. Hypertension. 3. Diabetes. 4. History of kidney transplant in 2009. On immunosuppressive therapy. 5. Anemia. PLAN: Clinically stable. Continue present care. Follow up with vascular and podiatry recommendations, may need amputation. DW patient. Problems: Consultation Date/Type/Reason Admit Date/Time Dec 26, 2016 at 13:22 Initial Consult Date 12/27/16 Type of Consultation: id Referring Provider: KRISTIN HALL MD Exam/Review of Systems Vital Signs Vitals Vital Signs Date Time Temp Pulse Resp B/P Pulse Ox O2 Delivery O2 Flow Rate FiO2 12/29/16 14:21 97.8 66 16 109/60 100 12/27/16 13:51 Room Air Intake and Output 12/28/16 12/28/16 12/29/16 15:00 23:00 07:00 Intake Total 620 ml 480 ml Balance 620 ml 480 ml Results Result Diagram: 12/29/16 0437 12/29/16 0437 Results 24 hrs Laboratory Tests Test 12/28/16 17:14 12/28/16 21:06 12/29/16 04:37 12/29/16 07:39 Bedside Glucose 115 100 101 White Blood Count 7.8 # Red Blood Count 4.23 Hemoglobin 11.9 L Hematocrit 36.5 L Mean Corpuscular Volume 86.3 Mean Corpuscular Hemoglobin 28.1 L Mean Corpuscular Hemoglobin Concent 32.6 Red Cell Distribution Width 14.0 Platelet Count 187 Mean Platelet Volume 11.7 H Neutrophils % 67.9 Lymphocytes % 19.1 Monocytes % 11.4 H Eosinophils % 1.2 Basophils % 0.1 Nucleated Red Blood Cells % 0.0 Neutrophils # (Manual) 5.3 Lymphocytes # 1.5 Monocytes # 0.9 Eosinophils # 0.1 Basophils # 0.0 Nucleated Red Blood Cells # 0.0 Sodium Level 133 L Potassium Level 4.8 Chloride Level 101 Carbon Dioxide Level 24 Anion Gap 13 Blood Urea Nitrogen 19 Creatinine 0.84 Glucose Level 69 #L Calcium Level 9.7 Test 12/29/16 11:50 Bedside Glucose 136 Medications Medications Current Medications Aspirin (Halfprin) 81 mg DAILY PO Last administered on 12/29/16 09:17; Admin Dose 81 MG; Start 12/27/16 at 09:00 Benazepril HCl (Lotensin) 10 mg DAILY PO Last administered on 12/29/16 09:18; Admin Dose 10 MG; Start 12/27/16 at 09:00 Clopidogrel Bisulfate (plaVIX) 75 mg DAILY PO Last administered on 12/29/16 09 :17; Admin Dose 75 MG; Start 12/27/16 at 09:00 Diltiazem HCl (Cardizem Cd) 180 mg DAILY PO Last administered on 12/29/16 09: 17; Admin Dose 180 MG; Start 12/26/16 at 14:00 Doxycycline Hyclate (Vibramycin) 100 mg BID PO Last administered on 12/29/16 09:16; Admin Dose 100 MG; Start 12/26/16 at 21:00 Famotidine (Pepcid) 40 mg HS PO Last administered on 12/28/16 21:21; Admin Dose 40 MG; Start 12/26/16 at 21:00 Folic Acid (Folic Acid) 1 mg DAILY PO Last administered on 12/29/16 09:16; Admin Dose 1 MG; Start 12/27/16 at 09:00 Gabapentin (Neurontin) 100 mg TID PO Last administered on 12/29/16 13:04; Admin Dose 100 MG; Start 12/26/16 at 21:00 Metoprolol Tartrate (Lopressor) 75 mg BID PO Last administered on 12/29/16 09: 18; Admin Dose 75 MG; Start 12/26/16 at 21:00 Mycophenolate Mofetil (Cellcept) 1,000 mg BID PO Last administered on 09:16; Admin Dose 1,000 MG; Start 12/26/16 at 21:00 Tacrolimus (Prograf) 2 mg Q12 PO Last administered on 12/29/16 09:16; Admin Dose 2 MG; Start 12/26/16 at 21:00 Pantoprazole (Protonix Tab) 40 mg DAILY@06 PO Last administered on 12/29/16 06 :16; Admin Dose 40 MG; Start 12/27/16 at 06:00 Morphine Sulfate (morphine) 2 mg Q4H PRN IV PAIN LEVEL 6-10 Last administered on 12/28/16 21:14; Admin Dose 2 MG; Start 12/26/16 at 14:30 Diagnostic Test (Pha) (Accu-Chek) 1 ea 02 XX ; Start 12/27/16 at 02:00 Miscellaneous Information 1 ea NOTE XX ; Start 12/26/16 at 14:30 Glucose (Glutose) 15 gm Q15M PRN PO DECREASED GLUCOSE; Start 12/26/16 at 14:30 Glucose (Glutose) 22.5 gm Q15M PRN PO DECREASED GLUCOSE; Start 12/26/16 at 14:30 Dextrose (D50w Syringe) 25 ml Q15M PRN IV DECREASED GLUCOSE; Start 12/26/16 at 14:30 Dextrose (D50w Syringe) 50 ml Q15M PRN IV DECREASED GLUCOSE; Start 12/26/16 at 14:30 Glucagon (Glucagen) 1 mg Q15M PRN IM DECREASED GLUCOSE; Start 12/26/16 at 14:30 Glucose (Glutose) 15 gm Q15M PRN BUCCAL DECREASED GLUCOSE; Start 12/26/16 at 14: 30 Acetaminophen/ Hydrocodone Bitart ([place] (5/325)) 1 tab Q8 PO Last administered on 12/29/16 14:08; Admin Dose 1 TAB; Start 12/26/16 at 22:00 Cholecalciferol (Vitamin D) 1,000 unit DAILY PO Last administered on 12/29/16 09:17; Admin Dose 1,000 UNIT; Start 12/28/16 at 09:00 Insulin Glargine (Lantus) 7 unit DAILY@20 SC ; Start 12/29/16 at 20:00 ROBERT GOETZ NP Dec 29, 2016 17:17
[2016-12-29 20:19] VITALS: BP 118/71; RESP 18
[2016-12-29] MEDS: INSULIN GLARGINE [LANtus] 3 ML PEN SC SCH (20:51)
[2016-12-29] MEDS: morphine 2 MG INJ IV PRN (20:51)
[2016-12-29] MEDS: FAMOTIDINE 20 MG TAB PO SCH (20:52)
[2016-12-30] MEDS: ACCU-CHEK XX SCH (02:00)
[2016-12-30 02:15] VITALS: BP 107/61; RESP 18
[2016-12-30] MEDS: morphine 2 MG INJ IV PRN (05:49)
[2016-12-30] MEDS: PANTOPRAZOLE (EC) 40 MG TAB PO SCH (06:50)
[2016-12-30] MEDS: HYDROCODONE/APAP (5/325) TAB PO SCH ×3 (06:51→22:15)
[2016-12-30] MEDS: INSULIN ASPART [NOVOLOG] 3 ML PEN SC SCH ×4 (07:51→21:00)
[2016-12-30] MEDS: GABAPENTIN 100 MG CAP PO SCH ×3 (08:53→22:15)
[2016-12-30] MEDS: TACROLIMUS 1 MG CAP PO SCH ×2 (08:53→22:18)
[2016-12-30] MEDS: DOXYCYCLINE 100 MG TAB PO SCH ×2 (08:53→22:13)
[2016-12-30] MEDS: DILTIAZEM (CD) 180 MG CAP PO SCH (08:54)
[2016-12-30] MEDS: ASPIRIN (EC) 81 MG TAB PO SCH (08:54)
[2016-12-30] MEDS: MYCOPHENOLATE 250 MG CAP PO SCH ×2 (08:54→22:12)
[2016-12-30] MEDS: CLOPIDOGREL 75 MG TAB PO SCH (08:54)
[2016-12-30] MEDS: CHOLECALCIFEROL 1,000 UNIT TAB PO SCH (08:54)
[2016-12-30] MEDS: BENAZEPRIL 10 MG TAB PO SCH (08:55)
[2016-12-30] MEDS: METOPROLOL 25 MG TAB PO SCH ×2 (08:55→22:12)
[2016-12-30] MEDS: FOLIC ACID 1 MG TAB PO SCH (08:55)
[2016-12-30 11:41] VITALS: BP 128/71; RESP 18
--- NOTE | 2016-12-30 13:42 | CONS ---
Date/Time of Note Date/Time of Note DATE: 12/30/16 TIME: 13:40 Assessment/Plan Assessment/Plan Chief Complaint/Hosp Course SUBJECTIVE DATA: Alert, c/o LE pain, no fevers, looks comfortable, no fevers ANTIMICROBIALS: Doxycycline GENERAL: This is a fragile well-developed elderly woman who is alert in no distress. HEENT: Head atraumatic, normocephalic. Sclerae anicteric. Buccal mucosa pink. NECK: Supple. CHEST: Rise symmetrical. Breath sounds clear. HEART: S1, S2. ABDOMEN: Soft, bowel sounds present. EXTREMITIES: B feet dressing present AND intact. ASSESSMENT: 1. Bilateral foot gangrene===> failed revascularization procedure and multiple debridement 2. Hypertension. 3. Diabetes. 4. History of kidney transplant in 2009. On immunosuppressive therapy. 5. Anemia. PLAN: Clinically unchanged, refused surgery, continue present care, f/u vascular and podiatry rec-s [facility] staff Problems: Consultation Date/Type/Reason Admit Date/Time Dec 26, 2016 at 13:22 Initial Consult Date 12/27/16 Type of Consultation: id Referring Provider: KRISTIN HALL MD Exam/Review of Systems Vital Signs Vitals Vital Signs Date Time Temp Pulse Resp B/P Pulse Ox O2 Delivery O2 Flow Rate FiO2 12/30/16 11:41 98.1 64 18 128/71 100 12/27/16 13:51 Room Air Intake and Output 12/29/16 12/29/16 12/30/16 15:00 23:00 07:00 Intake Total 650 ml 450 ml Balance 650 ml 450 ml Results Result Diagram: 12/29/16 0437 12/29/16 0437 Results 24 hrs Laboratory Tests Test 12/29/16 17:17 12/29/16 20:48 12/30/16 07:49 12/30/16 11:34 Bedside Glucose 150 115 83 112 Medications Medications Current Medications Aspirin (Halfprin) 81 mg DAILY PO Last administered on 12/30/16 08:54; Admin Dose 81 MG; Start 12/27/16 at 09:00 Benazepril HCl (Lotensin) 10 mg DAILY PO Last administered on 12/30/16 08:55; Admin Dose 10 MG; Start 12/27/16 at 09:00 Clopidogrel Bisulfate (plaVIX) 75 mg DAILY PO Last administered on 12/30/16 08 :54; Admin Dose 75 MG; Start 12/27/16 at 09:00 Diltiazem HCl (Cardizem Cd) 180 mg DAILY PO Last administered on 12/30/16 08: 54; Admin Dose 180 MG; Start 12/26/16 at 14:00 Doxycycline Hyclate (Vibramycin) 100 mg BID PO Last administered on 12/30/16 08:53; Admin Dose 100 MG; Start 12/26/16 at 21:00 Famotidine (Pepcid) 40 mg HS PO Last administered on 12/29/16 20:52; Admin Dose 40 MG; Start 12/26/16 at 21:00 Folic Acid (Folic Acid) 1 mg DAILY PO Last administered on 12/30/16 08:55; Admin Dose 1 MG; Start 12/27/16 at 09:00 Gabapentin (Neurontin) 100 mg TID PO Last administered on 12/30/16 13:13; Admin Dose 100 MG; Start 12/26/16 at 21:00 Metoprolol Tartrate (Lopressor) 75 mg BID PO Last administered on 12/30/16 08: 55; Admin Dose 75 MG; Start 12/26/16 at 21:00 Mycophenolate Mofetil (Cellcept) 1,000 mg BID PO Last administered on 08:54; Admin Dose 1,000 MG; Start 12/26/16 at 21:00 Tacrolimus (Prograf) 2 mg Q12 PO Last administered on 12/30/16 08:53; Admin Dose 2 MG; Start 12/26/16 at 21:00 Pantoprazole (Protonix Tab) 40 mg DAILY@06 PO Last administered on 12/30/16 06 :50; Admin Dose 40 MG; Start 12/27/16 at 06:00 Morphine Sulfate (morphine) 2 mg Q4H PRN IV PAIN LEVEL 6-10 Last administered on 12/30/16 05:49; Admin Dose 2 MG; Start 12/26/16 at 14:30 Diagnostic Test (Pha) (Accu-Chek) 1 ea 02 XX ; Start 12/27/16 at 02:00 Miscellaneous Information 1 ea NOTE XX ; Start 12/26/16 at 14:30 Glucose (Glutose) 15 gm Q15M PRN PO DECREASED GLUCOSE; Start 12/26/16 at 14:30 Glucose (Glutose) 22.5 gm Q15M PRN PO DECREASED GLUCOSE; Start 12/26/16 at 14:30 Dextrose (D50w Syringe) 25 ml Q15M PRN IV DECREASED GLUCOSE; Start 12/26/16 at 14:30 Dextrose (D50w Syringe) 50 ml Q15M PRN IV DECREASED GLUCOSE; Start 12/26/16 at 14:30 Glucagon (Glucagen) 1 mg Q15M PRN IM DECREASED GLUCOSE; Start 12/26/16 at 14:30 Glucose (Glutose) 15 gm Q15M PRN BUCCAL DECREASED GLUCOSE; Start 12/26/16 at 14: 30 Acetaminophen/ Hydrocodone Bitart ([place] (5/325)) 1 tab Q8 PO Last administered on 12/30/16 13:13; Admin Dose 1 TAB; Start 12/26/16 at 22:00 Cholecalciferol (Vitamin D) 1,000 unit DAILY PO Last administered on 12/30/16 08:54; Admin Dose 1,000 UNIT; Start 12/28/16 at 09:00 Insulin Glargine (Lantus) 7 unit DAILY@20 SC Last administered on 12/29/16 20: 51; Admin Dose 7 UNIT; Start 12/29/16 at 20:00 JACQUES HUERTA NP Dec 30, 2016 13:42
[2016-12-30 15:10] VITALS: BP 119/65; RESP 18
--- NOTE | 2016-12-30 16:37 | CONS ---
Date/Time of Note Date/Time of Note DATE: 12/30/16 TIME: 16:37 Assessment/Plan Assessment/Plan Additional Assessment/Plan 1. 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 h/o donor kidney transplant in 2009 at [place], currently on immunosuppression with Prograf, CellCept 4. 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 History of hypertension. 6. History of diabetes mellitus. 7. History of previous left upper extremity arteriovenous fistula. Plan: continue Current immunosuppression Prograf and cellcept, Cr normal, Na 133 Vascular surgery following IV abx as per ID, ID consulted on case Pt will need podiatry consult Renal function currently has been stable Consultation Date/Type/Reason Admit Date/Time Dec 26, 2016 at 13:22 Initial Consult Date 12/27/16 Type of Consultation: NEPHROLOGY Referring Provider: KRISTIN HALL MD Exam/Review of Systems Vital Signs Vitals Vital Signs Date Time Temp Pulse Resp B/P Pulse Ox O2 Delivery O2 Flow Rate FiO2 12/30/16 11:41 98.1 64 18 128/71 100 12/27/16 13:51 Room Air Intake and Output 12/29/16 12/29/16 12/30/16 15:00 23:00 07:00 Intake Total 650 ml 450 ml Balance 650 ml 450 ml Exam Constitutional: alert Respiratory: clear to auscultation, diminished breath sounds, normal air movement Cardiovascular: nl pulses, regular rate and rhythm Gastrointestinal: non-tender, soft Extremities: normal pulses, other (Bilateral LE gangrene ) 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, nl mental status, nl speech, nl strength Results Result Diagram: 12/29/167 12/29/16436 Results 24 hrs Laboratory Tests Test 12/29/16 17:17 12/29/16 20:48 12/30/16 07:49 12/30/16 11:34 Bedside Glucose 150 115 83 112 Medications Medications Current Medications Aspirin (Halfprin) 81 mg DAILY PO Last administered on 12/30/16 08:54; Admin Dose 81 MG; Start 12/27/16 at 09:00 Benazepril HCl (Lotensin) 10 mg DAILY PO Last administered on 12/30/16 08:55; Admin Dose 10 MG; Start 12/27/16 at 09:00 Clopidogrel Bisulfate (plaVIX) 75 mg DAILY PO Last administered on 12/30/16 08 :54; Admin Dose 75 MG; Start 12/27/16 at 09:00 Diltiazem HCl (Cardizem Cd) 180 mg DAILY PO Last administered on 12/30/16 08: 54; Admin Dose 180 MG; Start 12/26/16 at 14:00 Doxycycline Hyclate (Vibramycin) 100 mg BID PO Last administered on 12/30/16 08:53; Admin Dose 100 MG; Start 12/26/16 at 21:00 Famotidine (Pepcid) 40 mg HS PO Last administered on 12/29/16 20:52; Admin Dose 40 MG; Start 12/26/16 at 21:00 Folic Acid (Folic Acid) 1 mg DAILY PO Last administered on 12/30/16 08:55; Admin Dose 1 MG; Start 12/27/16 at 09:00 Gabapentin (Neurontin) 100 mg TID PO Last administered on 12/30/16 13:13; Admin Dose 100 MG; Start 12/26/16 at 21:00 Metoprolol Tartrate (Lopressor) 75 mg BID PO Last administered on 12/30/16 08: 55; Admin Dose 75 MG; Start 12/26/16 at 21:00 Mycophenolate Mofetil (Cellcept) 1,000 mg BID PO Last administered on 08:54; Admin Dose 1,000 MG; Start 12/26/16 at 21:00 Tacrolimus (Prograf) 2 mg Q12 PO Last administered on 12/30/16 08:53; Admin Dose 2 MG; Start 12/26/16 at 21:00 Pantoprazole (Protonix Tab) 40 mg DAILY@06 PO Last administered on 12/30/16 06 :50; Admin Dose 40 MG; Start 12/27/16 at 06:00 Morphine Sulfate (morphine) 2 mg Q4H PRN IV PAIN LEVEL 6-10 Last administered on 12/30/16 05:49; Admin Dose 2 MG; Start 12/26/16 at 14:30 Diagnostic Test (Pha) (Accu-Chek) 1 ea 02 XX ; Start 12/27/16 at 02:00 Miscellaneous Information 1 ea NOTE XX ; Start 12/26/16 at 14:30 Glucose (Glutose) 15 gm Q15M PRN PO DECREASED GLUCOSE; Start 12/26/16 at 14:30 Glucose (Glutose) 22.5 gm Q15M PRN PO DECREASED GLUCOSE; Start 12/26/16 at 14:30 Dextrose (D50w Syringe) 25 ml Q15M PRN IV DECREASED GLUCOSE; Start 12/26/16 at 14:30 Dextrose (D50w Syringe) 50 ml Q15M PRN IV DECREASED GLUCOSE; Start 12/26/16 at 14:30 Glucagon (Glucagen) 1 mg Q15M PRN IM DECREASED GLUCOSE; Start 12/26/16 at 14:30 Glucose (Glutose) 15 gm Q15M PRN BUCCAL DECREASED GLUCOSE; Start 12/26/16 at 14: 30 Acetaminophen/ Hydrocodone Bitart ([place] (5/325)) 1 tab Q8 PO Last administered on 12/30/16 13:13; Admin Dose 1 TAB; Start 12/26/16 at 22:00 Cholecalciferol (Vitamin D) 1,000 unit DAILY PO Last administered on 12/30/16 08:54; Admin Dose 1,000 UNIT; Start 12/28/16 at 09:00 Insulin Glargine (Lantus) 7 unit DAILY@20 SC Last administered on 12/29/16 20: 51; Admin Dose 7 UNIT; Start 12/29/16 at 20:00 RAMON KEMP MD Dec 30, 2016 16:37
--- NOTE | 2016-12-30 18:09 | PN ---
Date/Time of Note Date/Time of Note DATE: 12/30/16 TIME: 18:02 Assessment/Plan Lines/Catheters IV Catheter Type (from Nrsg): Saline Lock Urinary Cath still in place: No Assessment/Plan Assessment/Plan - Non healing wounds BLE - per Dr. Valencia in vascular surgery consultation. Continue pain medication. - per ID - End-stage renal disease status post renal transplant. Continues CellCept and tacrolimus. - per nephro - Hypertension. 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 - Anemia of chronic kidney disease. - Severe peripheral arterial disease. Further recommendations based on clinical course. Plan of care discussed with Dr. Cohen. Subjective 24 Hr Interval Summary Free Text/Dictation c/o BLE pain due to Respiratory: no complaints Cardiovascular: no complaints Gastrointestinal: no complaints Exam/Review of Systems Vital Signs Vitals Vital Signs Date Time Temp Pulse Resp B/P Pulse Ox O2 Delivery O2 Flow Rate FiO2 12/30/16 11:41 98.1 64 18 128/71 100 12/27/16 13:51 Room Air Intake and Output 12/29/16 12/29/16 12/30/16 15:00 23:00 07:00 Intake Total 650 ml 450 ml Balance 650 ml 450 ml Results Result Diagram: 12/29/16 0437 12/29/16 0437 Results 24 hrs Laboratory Tests Test 12/29/16 20:48 12/30/16 07:49 12/30/16 11:34 12/30/16 17:25 Bedside Glucose 115 83 112 104 Medications Medications Current Medications Aspirin (Halfprin) 81 mg DAILY PO Last administered on 12/30/16 08:54; Admin Dose 81 MG; Start 12/27/16 at 09:00 Benazepril HCl (Lotensin) 10 mg DAILY PO Last administered on 12/30/16 08:55; Admin Dose 10 MG; Start 12/27/16 at 09:00 Clopidogrel Bisulfate (plaVIX) 75 mg DAILY PO Last administered on 12/30/16 08 :54; Admin Dose 75 MG; Start 12/27/16 at 09:00 Diltiazem HCl (Cardizem Cd) 180 mg DAILY PO Last administered on 12/30/16 08: 54; Admin Dose 180 MG; Start 12/26/16 at 14:00 Doxycycline Hyclate (Vibramycin) 100 mg BID PO Last administered on 12/30/16 08:53; Admin Dose 100 MG; Start 12/26/16 at 21:00 Famotidine (Pepcid) 40 mg HS PO Last administered on 12/29/16 20:52; Admin Dose 40 MG; Start 12/26/16 at 21:00 Folic Acid (Folic Acid) 1 mg DAILY PO Last administered on 12/30/16 08:55; Admin Dose 1 MG; Start 12/27/16 at 09:00 Gabapentin (Neurontin) 100 mg TID PO Last administered on 12/30/16 13:13; Admin Dose 100 MG; Start 12/26/16 at 21:00 Metoprolol Tartrate (Lopressor) 75 mg BID PO Last administered on 12/30/16 08: 55; Admin Dose 75 MG; Start 12/26/16 at 21:00 Mycophenolate Mofetil (Cellcept) 1,000 mg BID PO Last administered on 08:54; Admin Dose 1,000 MG; Start 12/26/16 at 21:00 Tacrolimus (Prograf) 2 mg Q12 PO Last administered on 12/30/16 08:53; Admin Dose 2 MG; Start 12/26/16 at 21:00 Pantoprazole (Protonix Tab) 40 mg DAILY@06 PO Last administered on 12/30/16 06 :50; Admin Dose 40 MG; Start 12/27/16 at 06:00 Morphine Sulfate (morphine) 2 mg Q4H PRN IV PAIN LEVEL 6-10 Last administered on 12/30/16 05:49; Admin Dose 2 MG; Start 12/26/16 at 14:30 Diagnostic Test (Pha) (Accu-Chek) 1 ea 02 XX ; Start 12/27/16 at 02:00 Miscellaneous Information 1 ea NOTE XX ; Start 12/26/16 at 14:30 Glucose (Glutose) 15 gm Q15M PRN PO DECREASED GLUCOSE; Start 12/26/16 at 14:30 Glucose (Glutose) 22.5 gm Q15M PRN PO DECREASED GLUCOSE; Start 12/26/16 at 14:30 Dextrose (D50w Syringe) 25 ml Q15M PRN IV DECREASED GLUCOSE; Start 12/26/16 at 14:30 Dextrose (D50w Syringe) 50 ml Q15M PRN IV DECREASED GLUCOSE; Start 12/26/16 at 14:30 Glucagon (Glucagen) 1 mg Q15M PRN IM DECREASED GLUCOSE; Start 12/26/16 at 14:30 Glucose (Glutose) 15 gm Q15M PRN BUCCAL DECREASED GLUCOSE; Start 12/26/16 at 14: 30 Acetaminophen/ Hydrocodone Bitart ([place] (5/325)) 1 tab Q8 PO Last administered on 12/30/16 13:13; Admin Dose 1 TAB; Start 12/26/16 at 22:00 Cholecalciferol (Vitamin D) 1,000 unit DAILY PO Last administered on 12/30/16 08:54; Admin Dose 1,000 UNIT; Start 12/28/16 at 09:00 Insulin Glargine (Lantus) 7 unit DAILY@20 SC Last administered on 12/29/16 20: 51; Admin Dose 7 UNIT; Start 12/29/16 at 20:00 TIM BENNETT Dec 30, 2016 18:09
[2016-12-30 20:31] VITALS: BP 115/65; RESP 16
[2016-12-30] MEDS: INSULIN GLARGINE [LANtus] 3 ML PEN SC SCH (22:10)
[2016-12-30] MEDS: FAMOTIDINE 20 MG TAB PO SCH (22:13)
[2016-12-31] MEDS: ACCU-CHEK XX SCH ×2 (02:00→20:44)
[2016-12-31 03:14] VITALS: BP 137/68; RESP 16
[2016-12-31] MEDS: morphine 2 MG INJ IV PRN ×5 (05:18→23:49)
[2016-12-31 06:02] LABS: BASOPHILS % 0.3 % (0.0-2.0); EOSINOPHILS # 0.1 10^3/ul (0.0-0.5); EOSINOPHILS % 1.6 % (0.0-7.0); HEMATOCRIT 33.8 % (37.0-47.0); HEMOGLOBIN 10.8 g/dl (12.0-16.0); LYMPHOCYTES # 1.2 10^3/ul (0.8-2.9); LYMPHOCYTES % 16.4 % (15.0-51.0); MEAN CORPUSCULAR HEMOGLOBIN 27.4 pg (29.0-33.0); MEAN CORPUSCULAR VOLUME 85.8 fl (82.0-101.0); MEAN PLATELET VOLUME 12.3 fl (7.4-10.4); MONOCYTE # 0.8 10^3/ul (0.3-0.9); MONOCYTES % 10.5 % (0.0-11.0); NEUTROPHILS % 70.9 % (39.0-77.0); PLATELET COUNT 175 10^3/UL (140-415); RED BLOOD COUNT 3.94 10^6/ul (4.20-5.40); WHITE BLOOD COUNT 7.4 10^3/ul (4.8-10.8)
[2016-12-31 06:26] LABS: CALCIUM 9.5 mg/dl (8.4-10.2); CREATININE 0.8 mg/dl (0.44-1.00); POTASSIUM 4.3 mmol/L (3.5-5.1)
[2016-12-31] MEDS: PANTOPRAZOLE (EC) 40 MG TAB PO SCH (06:37)
[2016-12-31] MEDS: HYDROCODONE/APAP (5/325) TAB PO SCH ×3 (06:38→22:13)
[2016-12-31 07:40] VITALS: BP 140/78; RESP 16
[2016-12-31] MEDS: INSULIN ASPART [NOVOLOG] 3 ML PEN SC SCH ×4 (08:00→20:44)
[2016-12-31] MEDS: CLOPIDOGREL 75 MG TAB PO SCH (08:10)
[2016-12-31] MEDS: DILTIAZEM (CD) 180 MG CAP PO SCH (08:10)
[2016-12-31] MEDS: TACROLIMUS 1 MG CAP PO SCH ×2 (08:11→20:45)
[2016-12-31] MEDS: GABAPENTIN 100 MG CAP PO SCH ×3 (08:11→20:45)
[2016-12-31] MEDS: DOXYCYCLINE 100 MG TAB PO SCH ×2 (08:11→20:45)
[2016-12-31] MEDS: METOPROLOL 25 MG TAB PO SCH ×2 (08:11→20:46)
[2016-12-31] MEDS: MYCOPHENOLATE 250 MG CAP PO SCH ×2 (08:11→20:45)
[2016-12-31] MEDS: FOLIC ACID 1 MG TAB PO SCH (08:11)
[2016-12-31] MEDS: CHOLECALCIFEROL 1,000 UNIT TAB PO SCH (08:11)
[2016-12-31] MEDS: ASPIRIN (EC) 81 MG TAB PO SCH (08:11)
[2016-12-31] MEDS: BENAZEPRIL 10 MG TAB PO SCH (08:12)
--- NOTE | 2016-12-31 08:58 | CONS ---
Date/Time of Note Date/Time of Note DATE: 12/31/16 TIME: 08:55 Assessment/Plan Assessment/Plan Additional Assessment/Plan 1. 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 h/o donor kidney transplant in 2009 at [facility], currently on immunosuppression with Prograf, CellCept 4. 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 History of hypertension. 6. History of diabetes mellitus. 7. History of previous left upper extremity arteriovenous fistula. 8. Hyponatremia due to hypovolemic hyponatremia Plan: continue Current immunosuppression Prograf and cellcept, Cr normal, Na dropped to 129 will g dominga 2 L NS then hep loc Vascular surgery following IV abx as per ID, ID consulted on case Pt will need podiatry consult Renal function currently has been stable Consultation Date/Type/Reason Admit Date/Time Dec 26, 2016 at 13:22 Initial Consult Date 12/27/16 Type of Consultation: NEPHROLOGY Referring Provider: KRISTIN HALL MD Exam/Review of Systems Vital Signs Vitals Vital Signs Date Time Temp Pulse Resp B/P Pulse Ox O2 Delivery O2 Flow Rate FiO2 12/31/16 07:40 97.6 83 16 140/78 100 12/27/16 13:51 Room Air Intake and Output 12/30/16 12/30/16 12/31/16 15:00 23:00 07:00 Intake Total 780 ml 720 ml Balance 780 ml 720 ml Exam Constitutional: alert Respiratory: clear to auscultation, diminished breath sounds, normal air movement Cardiovascular: nl pulses, regular rate and rhythm Gastrointestinal: non-tender, soft Extremities: normal pulses, other (Bilateral LE gangrene ) Neurological: COLLAR POINTER II-XII intact, nl mental status, nl speech, nl strength Results Result Diagram: 12/31/1645012/31/16 045 Results 24 hrs Laboratory Tests Test 12/30/16 11:34 12/30/16 17:25 12/30/16 21:44 12/31/16 04:51 Bedside Glucose 112 104 101 White Blood Count 7.4 Red Blood Count 3.94 L Hemoglobin 10.8 L Hematocrit 33.8 L Mean Corpuscular Volume 85.8 Mean Corpuscular Hemoglobin 27.4 L Mean Corpuscular Hemoglobin Concent 32.0 Red Cell Distribution Width 14.0 Platelet Count 175 Mean Platelet Volume 12.3 H Neutrophils % 70.9 Lymphocytes % 16.4 Monocytes % 10.5 Eosinophils % 1.6 Basophils % 0.3 Nucleated Red Blood Cells % 0.0 Neutrophils # (Manual) 5.3 Lymphocytes # 1.2 Monocytes # 0.8 Eosinophils # 0.1 Basophils # 0.0 Nucleated Red Blood Cells # 0.0 Sodium Level 129 L Potassium Level 4.3 Chloride Level 101 Carbon Dioxide Level 23 Anion Gap 9 Blood Urea Nitrogen 22 H Creatinine 0.80 Glucose Level 80 Calcium Level 9.5 Test 12/31/16 07:56 Bedside Glucose 83 Medications Medications Current Medications Aspirin (Halfprin) 81 mg DAILY PO Last administered on 12/31/16 08:11; Admin Dose 81 MG; Start 12/27/16 at 09:00 Benazepril HCl (Lotensin) 10 mg DAILY PO Last administered on 12/31/16 08:12; Admin Dose 10 MG; Start 12/27/16 at 09:00 Clopidogrel Bisulfate (plaVIX) 75 mg DAILY PO Last administered on 12/31/16 08 :10; Admin Dose 75 MG; Start 12/27/16 at 09:00 Diltiazem HCl (Cardizem Cd) 180 mg DAILY PO Last administered on 12/31/16 08: 10; Admin Dose 180 MG; Start 12/26/16 at 14:00 Doxycycline Hyclate (Vibramycin) 100 mg BID PO Last administered on 12/31/16 08:11; Admin Dose 100 MG; Start 12/26/16 at 21:00 Famotidine (Pepcid) 40 mg HS PO Last administered on 12/30/16 22:13; Admin Dose 40 MG; Start 12/26/16 at 21:00 Folic Acid (Folic Acid) 1 mg DAILY PO Last administered on 12/31/16 08:11; Admin Dose 1 MG; Start 12/27/16 at 09:00 Gabapentin (Neurontin) 100 mg TID PO Last administered on 12/31/16 08:11; Admin Dose 100 MG; Start 12/26/16 at 21:00 Metoprolol Tartrate (Lopressor) 75 mg BID PO Last administered on 12/31/16 08: 11; Admin Dose 75 MG; Start 12/26/16 at 21:00 Mycophenolate Mofetil (Cellcept) 1,000 mg BID PO Last administered on 08:11; Admin Dose 1,000 MG; Start 12/26/16 at 21:00 Tacrolimus (Prograf) 2 mg Q12 PO Last administered on 12/31/16 08:11; Admin Dose 2 MG; Start 12/26/16 at 21:00 Pantoprazole (Protonix Tab) 40 mg DAILY@06 PO Last administered on 12/31/16 06 :37; Admin Dose 40 MG; Start 12/27/16 at 06:00 Morphine Sulfate (morphine) 2 mg Q4H PRN IV PAIN LEVEL 6-10 Last administered on 12/31/16 05:18; Admin Dose 2 MG; Start 12/26/16 at 14:30 Diagnostic Test (Pha) (Accu-Chek) 1 ea 02 XX ; Start 12/27/16 at 02:00 Miscellaneous Information 1 ea NOTE XX ; Start 12/26/16 at 14:30 Glucose (Glutose) 15 gm Q15M PRN PO DECREASED GLUCOSE; Start 12/26/16 at 14:30 Glucose (Glutose) 22.5 gm Q15M PRN PO DECREASED GLUCOSE; Start 12/26/16 at 14:30 Dextrose (D50w Syringe) 25 ml Q15M PRN IV DECREASED GLUCOSE; Start 12/26/16 at 14:30 Dextrose (D50w Syringe) 50 ml Q15M PRN IV DECREASED GLUCOSE; Start 12/26/16 at 14:30 Glucagon (Glucagen) 1 mg Q15M PRN IM DECREASED GLUCOSE; Start 12/26/16 at 14:30 Glucose (Glutose) 15 gm Q15M PRN BUCCAL DECREASED GLUCOSE; Start 12/26/16 at 14: 30 Acetaminophen/ Hydrocodone Bitart ([place] (5/325)) 1 tab Q8 PO Last administered on 12/31/16 06:38; Admin Dose 1 TAB; Start 12/26/16 at 22:00 Cholecalciferol (Vitamin D) 1,000 unit DAILY PO Last administered on 12/31/16 08:11; Admin Dose 1,000 UNIT; Start 12/28/16 at 09:00 Insulin Glargine (Lantus) 7 unit DAILY@20 SC Last administered on 9/11/17at 22: 10; Admin Dose 7 UNIT; Start 12/29/16 at 20:00 RAMON KEMP MD Dec 31, 2016 08:58
--- NOTE | 2016-12-31 09:04 | PN ---
Date/Time of Note Date/Time of Note DATE: 12/31/16 TIME: 08:58 Assessment/Plan Lines/Catheters IV Catheter Type (from Nrs): Saline Lock More[place] in Place (from Nrs): No Assessment/Plan Chief Complaint/Hosp Course -Bilateral lower extremity atherosclerosis with bilateral foot gangrene: It seems that the patient's progression of atherosclerotic disease is still there despite multiple interventions. The patient has developed worsening gangrene of the left first toe and rest pain again. Unfortunately all vascular interventions have been exhausted as she has significant LE atherosclerotic disease and no amenable conduit for a LE bypass. Given our recent endovascular intervention she would likely not benefit from any further interventions. Had a lengthy conversation with the patient about realistic outcomes of limb salvage. Recommend BKA/AKA once the rest pain has become intolerable or develops LE infection/sepsis that threatens her life. -At the moment patient likes to wait and not have an amputation -Unfortunately she may encounter the same issue with her RLE. However, at the moment no significant rest pain reported -Optimize vascular status (BP medications, diet, nutrition and exercise, sugar control, antiplatelets). -Continue with antibiotics for the gangrene. -Podiatry colleagues are involved with the local wound care and -Cardiology evaluation for possible BKA/AKA -Discussed findings, plan and management with the patient with a certified travel writer and she understands. -Thank you for allowing us to partake in the care of your patient. Please call with any questions. Problems: Subjective 24 Hr Interval Summary no new vascular events overnight Exam/Review of Systems Vital Signs Vitals Vital Signs Date Time Temp Pulse Resp B/P Pulse Ox O2 Delivery O2 Flow Rate FiO2 12/31/16 07:40 97.6 83 16 140/78 100 12/27/16 13:51 Room Air Intake and Output 12/30/16 12/30/16 12/31/16 15:00 23:00 07:00 Intake Total 780 ml 720 ml Balance 780 ml 720 ml Exam Free Text/Dictation Alert and oriented x3 LUNGS: Clear to auscultation bilaterally. CARDIOVASCULAR: S1 and S2 present ABDOMEN: Soft, nontender and nondistended. Bowel sounds positive. Surgical scar well healed. EXTREMITIES: -Right lower extremity faint femoral pulse. Nonpalpable pedal pulse. Motor and sensory intact. Capillary refill 4 seconds. Gangrene of the fifth toe amputation stump site and dependant rubor. -Left lower extremity faint femoral pulse. Nonpalpable pedal pulse. Motor and sensory intact. Capillary refill 4 seconds. Tenderness and pain of the left first toe with gangrene, fourth and fifth toe amputation stump with gangrene. delayed cap refill, Results Result Diagram: 12/31/16 0451 12/31/16 0451 WILD DUARTE MD Dec 31, 2016 09:04
[2016-12-31] MEDS: SOD CHLORIDE 0.9% 1,000 ML IV SCH ×2 (09:28→22:13)
--- NOTE | 2016-12-31 10:29 | PN ---
Date/Time of Note Date/Time of Note DATE: 12/31/16 TIME: 10:26 Assessment/Plan VTE Prophylaxis VTE Prophylaxis Intervention: other Lines/Catheters IV Catheter Type (from Nrs): Peripheral IV Urinary Cath still in place: No Assessment/Plan Assessment/Plan - Non healing wounds BLE - per Dr. Valencia in vascular surgery consultation. Continue pain medication. - per ID - End-stage renal disease status post renal transplant. Continues CellCept and tacrolimus. - per nephro - Hyponatremia- per nephrol - Hypertension. 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 - Anemia of chronic kidney disease. - Severe peripheral arterial disease. Further recommendations based on clinical course. Plan of care discussed with Dr. Cohen. Subjective 24 Hr Interval Summary Cardiovascular: no complaints Gastrointestinal: no complaints Genitourinary: no complaints Skin: skin lesions Exam/Review of Systems Vital Signs Vitals Vital Signs Date Time Temp Pulse Resp B/P Pulse Ox O2 Delivery O2 Flow Rate FiO2 12/31/16 07:40 97.6 83 16 140/78 100 12/27/16 13:51 Room Air Intake and Output 12/30/16 12/30/16 12/31/16 15:00 23:00 07:00 Intake Total 780 ml 720 ml Balance 780 ml 720 ml Exam Constitutional: alert, well developed Respiratory: clear to auscultation, normal air movement Cardiovascular: nl pulses, regular rate and rhythm Gastrointestinal: non-tender, soft Musculoskeletal: other Extremities: other Results Result Diagram: 12/31/16 0451 12/31/16 0451 Results 24 hrs Laboratory Tests Test 12/30/16 11:34 12/30/16 17:25 12/30/16 21:44 12/31/16 04:51 Bedside Glucose 112 104 101 White Blood Count 7.4 Red Blood Count 3.94 L Hemoglobin 10.8 L Hematocrit 33.8 L Mean Corpuscular Volume 85.8 Mean Corpuscular Hemoglobin 27.4 L Mean Corpuscular Hemoglobin Concent 32.0 Red Cell Distribution Width 14.0 Platelet Count 175 Mean Platelet Volume 12.3 H Neutrophils % 70.9 Lymphocytes % 16.4 Monocytes % 10.5 Eosinophils % 1.6 Basophils % 0.3 Nucleated Red Blood Cells % 0.0 Neutrophils # (Manual) 5.3 Lymphocytes # 1.2 Monocytes # 0.8 Eosinophils # 0.1 Basophils # 0.0 Nucleated Red Blood Cells # 0.0 Sodium Level 129 L Potassium Level 4.3 Chloride Level 101 Carbon Dioxide Level 23 Anion Gap 9 Blood Urea Nitrogen 22 H Creatinine 0.80 Glucose Level 80 Calcium Level 9.5 Test 12/31/16 07:56 Bedside Glucose 83 Medications Medications Current Medications Aspirin (Halfprin) 81 mg DAILY PO Last administered on 12/31/16 08:11; Admin Dose 81 MG; Start 12/27/16 at 09:00 Benazepril HCl (Lotensin) 10 mg DAILY PO Last administered on 12/31/16 08:12; Admin Dose 10 MG; Start 12/27/16 at 09:00 Clopidogrel Bisulfate (plaVIX) 75 mg DAILY PO Last administered on 12/31/16 08 :10; Admin Dose 75 MG; Start 12/27/16 at 09:00 Diltiazem HCl (Cardizem Cd) 180 mg DAILY PO Last administered on 12/31/16 08: 10; Admin Dose 180 MG; Start 12/26/16 at 14:00 Doxycycline Hyclate (Vibramycin) 100 mg BID PO Last administered on 12/31/16 08:11; Admin Dose 100 MG; Start 12/26/16 at 21:00 Famotidine (Pepcid) 40 mg HS PO Last administered on 12/30/16 22:13; Admin Dose 40 MG; Start 12/26/16 at 21:00 Folic Acid (Folic Acid) 1 mg DAILY PO Last administered on 12/31/16 08:11; Admin Dose 1 MG; Start 12/27/16 at 09:00 Gabapentin (Neurontin) 100 mg TID PO Last administered on 12/31/16 08:11; Admin Dose 100 MG; Start 12/26/16 at 21:00 Metoprolol Tartrate (Lopressor) 75 mg BID PO Last administered on 12/31/16 08: 11; Admin Dose 75 MG; Start 12/26/16 at 21:00 Mycophenolate Mofetil (Cellcept) 1,000 mg BID PO Last administered on 08:11; Admin Dose 1,000 MG; Start 12/26/16 at 21:00 Tacrolimus (Prograf) 2 mg Q12 PO Last administered on 12/31/16 08:11; Admin Dose 2 MG; Start 12/26/16 at 21:00 Pantoprazole (Protonix Tab) 40 mg DAILY@06 PO Last administered on 12/31/16 06 :37; Admin Dose 40 MG; Start 12/27/16 at 06:00 Morphine Sulfate (morphine) 2 mg Q4H PRN IV PAIN LEVEL 6-10 Last administered on 12/31/16 05:18; Admin Dose 2 MG; Start 12/26/16 at 14:30 Diagnostic Test (Pha) (Accu-Chek) 1 ea 02 XX ; Start 12/27/16 at 02:00 Miscellaneous Information 1 ea NOTE XX ; Start 12/26/16 at 14:30 Glucose (Glutose) 15 gm Q15M PRN PO DECREASED GLUCOSE; Start 12/26/16 at 14:30 Glucose (Glutose) 22.5 gm Q15M PRN PO DECREASED GLUCOSE; Start 12/26/16 at 14:30 Dextrose (D50w Syringe) 25 ml Q15M PRN IV DECREASED GLUCOSE; Start 12/26/16 at 14:30 Dextrose (D50w Syringe) 50 ml Q15M PRN IV DECREASED GLUCOSE; Start 12/26/16 at 14:30 Glucagon (Glucagen) 1 mg Q15M PRN IM DECREASED GLUCOSE; Start 12/26/16 at 14:30 Glucose (Glutose) 15 gm Q15M PRN BUCCAL DECREASED GLUCOSE; Start 12/26/16 at 14: 30 Acetaminophen/ Hydrocodone Bitart ([place] (5/325)) 1 tab Q8 PO Last administered on 12/31/16 06:38; Admin Dose 1 TAB; Start 12/26/16 at 22:00 Cholecalciferol (Vitamin D) 1,000 unit DAILY PO Last administered on 12/31/16 08:11; Admin Dose 1,000 UNIT; Start 12/28/16 at 09:00 Insulin Glargine 7 unit 7 unit DAILY@20 SC Last administered on 12/30/16 22:10 ; Admin Dose 7 UNIT; Start 12/29/16 at 20:00 Sodium Chloride (NS) 1,000 ml @ 75 mls/hr [id number] IV Last administered on 12/31 09:28; Admin Dose 75 MLS/HR; Start 12/31/16 at 09:00; Stop 01/01/17 at 11: 39 TIM BENNETT Dec 31, 2016 10:29
[2016-12-31 14:38] VITALS: BP 129/70; RESP 16
--- NOTE | 2016-12-31 18:53 | CONS ---
Date/Time of Note Date/Time of Note DATE: 12/31/16 TIME: 18:51 Assessment/Plan Assessment/Plan Chief Complaint/Hosp Course SUBJECTIVE DATA: No changes, alert, looks comfortable, no fevers, BLE pain persists ANTIMICROBIALS: Doxycycline GENERAL: This is a fragile well-developed elderly woman who is alert in no distress. HEENT: Head atraumatic, normocephalic. Sclerae anicteric. Buccal mucosa pink. NECK: Supple. CHEST: Rise symmetrical. Breath sounds clear. HEART: S1, S2. ABDOMEN: Soft, bowel sounds present. EXTREMITIES: B feet dressing present AND intact. ASSESSMENT: 1. Bilateral foot gangrene===> failed revascularization procedure and multiple debridement 2. Hypertension. 3. Diabetes. 4. History of kidney transplant in 2009. On immunosuppressive therapy. 5. Anemia. PLAN: Clinically unchanged, per vascular rec-s will require AKA/BKA, pt refused , continue present care, pain management DW staff Problems: Consultation Date/Type/Reason Admit Date/Time Dec 26, 2016 at 13:22 Initial Consult Date 12/27/16 Type of Consultation: ID Referring Provider: KRISTIN HALL MD Exam/Review of Systems Vital Signs Vitals Vital Signs Date Time Temp Pulse Resp B/P Pulse Ox O2 Delivery O2 Flow Rate FiO2 12/31/16 14:38 98.1 59 16 129/70 100 12/27/16 13:51 Room Air Intake and Output 12/30/16 12/30/16 12/31/16 15:00 23:00 07:00 Intake Total 780 ml 720 ml Balance 780 ml 720 ml Results Result Diagram: 12/31/16 0451 12/31/16 0451 Results 24 hrs Laboratory Tests Test 12/30/16 21:44 12/31/16 04:51 12/31/16 07:56 12/31/16 11:55 Bedside Glucose 101 83 120 White Blood Count 7.4 Red Blood Count 3.94 L Hemoglobin 10.8 L Hematocrit 33.8 L Mean Corpuscular Volume 85.8 Mean Corpuscular Hemoglobin 27.4 L Mean Corpuscular Hemoglobin Concent 32.0 Red Cell Distribution Width 14.0 Platelet Count 175 Mean Platelet Volume 12.3 H Neutrophils % 70.9 Lymphocytes % 16.4 Monocytes % 10.5 Eosinophils % 1.6 Basophils % 0.3 Nucleated Red Blood Cells % 0.0 Neutrophils # (Manual) 5.3 Lymphocytes # 1.2 Monocytes # 0.8 Eosinophils # 0.1 Basophils # 0.0 Nucleated Red Blood Cells # 0.0 Sodium Level 129 L Potassium Level 4.3 Chloride Level 101 Carbon Dioxide Level 23 Anion Gap 9 Blood Urea Nitrogen 22 H Creatinine 0.80 Glucose Level 80 Calcium Level 9.5 Test 12/31/16 17:23 Bedside Glucose 83 Medications Medications Current Medications Aspirin (Halfprin) 81 mg DAILY PO Last administered on 12/31/16 08:11; Admin Dose 81 MG; Start 12/27/16 at 09:00 Benazepril HCl (Lotensin) 10 mg DAILY PO Last administered on 12/31/16 08:12; Admin Dose 10 MG; Start 12/27/16 at 09:00 Clopidogrel Bisulfate (plaVIX) 75 mg DAILY PO Last administered on 12/31/16 08 :10; Admin Dose 75 MG; Start 12/27/16 at 09:00 Diltiazem HCl (Cardizem Cd) 180 mg DAILY PO Last administered on 12/31/16 08: 10; Admin Dose 180 MG; Start 12/26/16 at 14:00 Doxycycline Hyclate (Vibramycin) 100 mg BID PO Last administered on 12/31/16 08:11; Admin Dose 100 MG; Start 12/26/16 at 21:00 Famotidine (Pepcid) 40 mg HS PO Last administered on 12/30/16 22:13; Admin Dose 40 MG; Start 12/26/16 at 21:00 Folic Acid (Folic Acid) 1 mg DAILY PO Last administered on 12/31/16 08:11; Admin Dose 1 MG; Start 12/27/16 at 09:00 Gabapentin (Neurontin) 100 mg TID PO Last administered on 12/31/16 13:19; Admin Dose 100 MG; Start 12/26/16 at 21:00 Metoprolol Tartrate (Lopressor) 75 mg BID PO Last administered on 12/31/16 08: 11; Admin Dose 75 MG; Start 12/26/16 at 21:00 Mycophenolate Mofetil (Cellcept) 1,000 mg BID PO Last administered on 08:11; Admin Dose 1,000 MG; Start 12/26/16 at 21:00 Tacrolimus (Prograf) 2 mg Q12 PO Last administered on 12/31/16 08:11; Admin Dose 2 MG; Start 12/26/16 at 21:00 Pantoprazole (Protonix Tab) 40 mg DAILY@06 PO Last administered on 12/31/16 06 :37; Admin Dose 40 MG; Start 12/27/16 at 06:00 Morphine Sulfate (morphine) 2 mg Q4H PRN IV PAIN LEVEL 6-10 Last administered on 12/31/16 15:01; Admin Dose 2 MG; Start 12/26/16 at 14:30 Diagnostic Test (Pha) (Accu-Chek) 1 ea 02 XX ; Start 12/27/16 at 02:00 Miscellaneous Information 1 ea NOTE XX ; Start 12/26/16 at 14:30 Glucose (Glutose) 15 gm Q15M PRN PO DECREASED GLUCOSE; Start 12/26/16 at 14:30 Glucose (Glutose) 22.5 gm Q15M PRN PO DECREASED GLUCOSE; Start 12/26/16 at 14:30 Dextrose (D50w Syringe) 25 ml Q15M PRN IV DECREASED GLUCOSE; Start 12/26/16 at 14:30 Dextrose (D50w Syringe) 50 ml Q15M PRN IV DECREASED GLUCOSE; Start 12/26/16 at 14:30 Glucagon (Glucagen) 1 mg Q15M PRN IM DECREASED GLUCOSE; Start 12/26/16 at 14:30 Glucose (Glutose) 15 gm Q15M PRN BUCCAL DECREASED GLUCOSE; Start 12/26/16 at 14: 30 Acetaminophen/ Hydrocodone Bitart ([place] (5/325)) 1 tab Q8 PO Last administered on 12/31/16 13:19; Admin Dose 1 TAB; Start 12/26/16 at 22:00 Cholecalciferol (Vitamin D) 1,000 unit DAILY PO Last administered on 12/31/16 08:11; Admin Dose 1,000 UNIT; Start 12/28/16 at 09:00 Insulin Glargine 7 unit 7 unit DAILY@20 SC Last administered on 12/30/16 22:10 ; Admin Dose 7 UNIT; Start 12/29/16 at 20:00 Sodium Chloride (NS) 1,000 ml @ 75 mls/hr [id number] IV Last administered on 12/31 09:28; Admin Dose 75 MLS/HR; Start 12/31/16 at 09:00; Stop 01/01/17 at 11: 39 JACQUES HUERTA NP Dec 31, 2016 18:53
--- NOTE | 2016-12-31 19:14 | CONS ---
Date/Time of Note Date/Time of Note DATE: 12/31/16 TIME: 19:14 Consultation Date/Type/Reason Admit Date/Time Dec 26, 2016 at 13:22 Constitutional: no complaints Eyes: no complaints ENT: no complaints Respiratory: no complaints Cardiovascular: no complaints Gastrointestinal: no complaints Genitourinary: no complaints Musculoskeletal: bone/joint pain Skin: skin lesions Neurologic: no complaints Endocrine: no complaints Lymphatic: no complaints Psychological: nl mood/affect Immunologic: no complaints Past Medical History Medical History: diabetes, high cholesterol, hypertension, other (Peripheral vascular disease ) Past Surgical History Past Surgical Hx: other (H/o LE angiogram, H/o LE debridement, H/o previosu AVF for HD access ) Social History Alcohol Use: none Smoking Status: Never smoker Drug Use: none Exam/Review of Systems Vital Signs Vitals Vital Signs Date Time Temp Pulse Resp B/P Pulse Ox O2 Delivery O2 Flow Rate FiO2 12/31/16 14:38 98.1 59 16 129/70 100 12/27/16 13:51 Room Air Intake and Output 12/30/16 12/30/16 12/31/16 15:00 23:00 07:00 Intake Total 780 ml 720 ml Balance 780 ml 720 ml Results Result Diagram: 12/31/16 0451 12/31/16 0451 Results 24 hrs Laboratory Tests Test 12/30/16 21:44 12/31/16 04:51 12/31/16 07:56 12/31/16 11:55 Bedside Glucose 101 83 120 White Blood Count 7.4 Red Blood Count 3.94 L Hemoglobin 10.8 L Hematocrit 33.8 L Mean Corpuscular Volume 85.8 Mean Corpuscular Hemoglobin 27.4 L Mean Corpuscular Hemoglobin Concent 32.0 Red Cell Distribution Width 14.0 Platelet Count 175 Mean Platelet Volume 12.3 H Neutrophils % 70.9 Lymphocytes % 16.4 Monocytes % 10.5 Eosinophils % 1.6 Basophils % 0.3 Nucleated Red Blood Cells % 0.0 Neutrophils # (Manual) 5.3 Lymphocytes # 1.2 Monocytes # 0.8 Eosinophils # 0.1 Basophils # 0.0 Nucleated Red Blood Cells # 0.0 Sodium Level 129 L Potassium Level 4.3 Chloride Level 101 Carbon Dioxide Level 23 Anion Gap 9 Blood Urea Nitrogen 22 H Creatinine 0.80 Glucose Level 80 Calcium Level 9.5 Test 12/31/16 17:23 Bedside Glucose 83 Medications Medications Current Medications Aspirin (Halfprin) 81 mg DAILY PO Last administered on 12/31/16 08:11; Admin Dose 81 MG; Start 12/27/16 at 09:00 Benazepril HCl (Lotensin) 10 mg DAILY PO Last administered on 12/31/16 08:12; Admin Dose 10 MG; Start 12/27/16 at 09:00 Clopidogrel Bisulfate (plaVIX) 75 mg DAILY PO Last administered on 12/31/16 08 :10; Admin Dose 75 MG; Start 12/27/16 at 09:00 Diltiazem HCl (Cardizem Cd) 180 mg DAILY PO Last administered on 12/31/16 08: 10; Admin Dose 180 MG; Start 12/26/16 at 14:00 Doxycycline Hyclate (Vibramycin) 100 mg BID PO Last administered on 12/31/16 08:11; Admin Dose 100 MG; Start 12/26/16 at 21:00 Famotidine (Pepcid) 40 mg HS PO Last administered on 12/30/16 22:13; Admin Dose 40 MG; Start 12/26/16 at 21:00 Folic Acid (Folic Acid) 1 mg DAILY PO Last administered on 12/31/16 08:11; Admin Dose 1 MG; Start 12/27/16 at 09:00 Gabapentin (Neurontin) 100 mg TID PO Last administered on 12/31/16 13:19; Admin Dose 100 MG; Start 12/26/16 at 21:00 Metoprolol Tartrate (Lopressor) 75 mg BID PO Last administered on 12/31/16 08: 11; Admin Dose 75 MG; Start 12/26/16 at 21:00 Mycophenolate Mofetil (Cellcept) 1,000 mg BID PO Last administered on 08:11; Admin Dose 1,000 MG; Start 12/26/16 at 21:00 Tacrolimus (Prograf) 2 mg Q12 PO Last administered on 12/31/16 08:11; Admin Dose 2 MG; Start 12/26/16 at 21:00 Pantoprazole (Protonix Tab) 40 mg DAILY@06 PO Last administered on 12/31/16 06 :37; Admin Dose 40 MG; Start 12/27/16 at 06:00 Morphine Sulfate (morphine) 2 mg Q4H PRN IV PAIN LEVEL 6-10 Last administered on 12/31/16 18:55; Admin Dose 2 MG; Start 12/26/16 at 14:30 Diagnostic Test (Pha) (Accu-Chek) 1 ea 02 XX ; Start 12/27/16 at 02:00 Miscellaneous Information 1 ea NOTE XX ; Start 12/26/16 at 14:30 Glucose (Glutose) 15 gm Q15M PRN PO DECREASED GLUCOSE; Start 12/26/16 at 14:30 Glucose (Glutose) 22.5 gm Q15M PRN PO DECREASED GLUCOSE; Start 12/26/16 at 14:30 Dextrose (D50w Syringe) 25 ml Q15M PRN IV DECREASED GLUCOSE; Start 12/26/16 at 14:30 Dextrose (D50w Syringe) 50 ml Q15M PRN IV DECREASED GLUCOSE; Start 12/26/16 at 14:30 Glucagon (Glucagen) 1 mg Q15M PRN IM DECREASED GLUCOSE; Start 12/26/16 at 14:30 Glucose (Glutose) 15 gm Q15M PRN BUCCAL DECREASED GLUCOSE; Start 12/26/16 at 14: 30 Acetaminophen/ Hydrocodone Bitart ([place] (5/325)) 1 tab Q8 PO Last administered on 12/31/16 13:19; Admin Dose 1 TAB; Start 12/26/16 at 22:00 Cholecalciferol (Vitamin D) 1,000 unit DAILY PO Last administered on 12/31/16 08:11; Admin Dose 1,000 UNIT; Start 12/28/16 at 09:00 Insulin Glargine 7 unit 7 unit DAILY@20 SC Last administered on 12/30/16 22:10 ; Admin Dose 7 UNIT; Start 12/29/16 at 20:00 Sodium Chloride (NS) 1,000 ml @ 75 mls/hr [id number] IV Last administered on 12/31 09:28; Admin Dose 75 MLS/HR; Start 12/31/16 at 09:00; Stop 01/01/17 at 11: 39 ZAKI NUÑEZ MD Dec 31, 2016 19:14
[2016-12-31 20:35] VITALS: BP 141/73; RESP 18
[2016-12-31] MEDS: FAMOTIDINE 20 MG TAB PO SCH (20:45)
[2016-12-31] MEDS: INSULIN GLARGINE [LANtus] 3 ML PEN SC SCH (20:52)
[2017-01-01 03:20] VITALS: BP 140/65; RESP 19
[2017-01-01] MEDS: morphine 2 MG INJ IV PRN ×2 (04:35→16:46)
[2017-01-01] MEDS: PANTOPRAZOLE (EC) 40 MG TAB PO SCH (05:40)
[2017-01-01] MEDS: HYDROCODONE/APAP (5/325) TAB PO SCH ×3 (05:41→21:10)
[2017-01-01 06:28] LABS: BASOPHILS % 0.1 % (0.0-2.0); EOSINOPHILS # 0.1 10^3/ul (0.0-0.5); EOSINOPHILS % 0.7 % (0.0-7.0); HEMATOCRIT 34.6 % (37.0-47.0); HEMOGLOBIN 11.5 g/dl (12.0-16.0); LYMPHOCYTES # 1.2 10^3/ul (0.8-2.9); LYMPHOCYTES % 13.7 % (15.0-51.0); MEAN CORPUSCULAR HEMOGLOBIN 28.7 pg (29.0-33.0); MEAN CORPUSCULAR HGB CONC 33.2 g/dl (32.0-37.0); MEAN CORPUSCULAR VOLUME 86.3 fl (82.0-101.0); MEAN PLATELET VOLUME 12.7 fl (7.4-10.4); MONOCYTE # 1.1 10^3/ul (0.3-0.9); MONOCYTES % 12.5 % (0.0-11.0); NEUTROPHILS % 72.6 % (39.0-77.0); PLATELET COUNT 188 10^3/UL (140-415); RED BLOOD COUNT 4.01 10^6/ul (4.20-5.40); RED CELL DISTRIBUTION WIDTH 13.8 % (11.5-14.5); WHITE BLOOD COUNT 8.6 10^3/ul (4.8-10.8)
[2017-01-01 06:54] LABS: CREATININE 0.73 mg/dl (0.44-1.00); POTASSIUM 4.5 mmol/L (3.5-5.1)
[2017-01-01 08:00] VITALS: BP 158/61; RESP 18
[2017-01-01] MEDS: INSULIN ASPART [NOVOLOG] 3 ML PEN SC SCH ×4 (08:00→21:00)
[2017-01-01] MEDS: TACROLIMUS 1 MG CAP PO SCH ×2 (08:21→21:06)
[2017-01-01] MEDS: CHOLECALCIFEROL 1,000 UNIT TAB PO SCH (08:21)
[2017-01-01] MEDS: DOXYCYCLINE 100 MG TAB PO SCH ×2 (08:21→21:06)
[2017-01-01] MEDS: GABAPENTIN 100 MG CAP PO SCH ×3 (08:21→21:07)
[2017-01-01] MEDS: MYCOPHENOLATE 250 MG CAP PO SCH ×2 (08:21→21:10)
[2017-01-01] MEDS: FOLIC ACID 1 MG TAB PO SCH (08:22)
[2017-01-01] MEDS: CLOPIDOGREL 75 MG TAB PO SCH (08:22)
[2017-01-01] MEDS: BENAZEPRIL 10 MG TAB PO SCH (08:22)
[2017-01-01] MEDS: METOPROLOL 25 MG TAB PO SCH ×2 (08:22→21:07)
[2017-01-01] MEDS: ASPIRIN (EC) 81 MG TAB PO SCH (08:22)
[2017-01-01] MEDS: DILTIAZEM (CD) 180 MG CAP PO SCH (08:23)
[2017-01-01] MEDS: ONDANSETRON 4 MG INJ IV PRN (10:00)
--- NOTE | 2017-01-01 12:41 | PN ---
Date/Time of Note Date/Time of Note DATE: 01/01/17 TIME: 12:40 Assessment/Plan VTE Prophylaxis VTE Prophylaxis Intervention: other Lines/Catheters IV Catheter Type (from Nrs): Peripheral IV Urinary Cath still in place: No Assessment/Plan Assessment/Plan - Non healing wounds BLE - per Dr. Valencia in vascular surgery consultation. Continue pain medication. - per ID - End-stage renal disease status post renal transplant. Continues CellCept and tacrolimus. - per nephro - Hyponatremia- per nephro - Hypertension. 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 - Anemia of chronic kidney disease. - Severe peripheral arterial disease. Further recommendations based on clinical course. Plan of care discussed with Dr. Cohen. Subjective 24 Hr Interval Summary Respiratory: no complaints Cardiovascular: no complaints Gastrointestinal: no complaints Genitourinary: no complaints Skin: skin lesions Exam/Review of Systems Vital Signs Vitals Vital Signs Date Time Temp Pulse Resp B/P Pulse Ox O2 Delivery O2 Flow Rate FiO2 01/01/17 08:00 98.8 90 18 158/61 96 Intake and Output 12/31/16 12/31/16 01/01/17 15:00 23:00 07:00 Intake Total 1395 ml 970 ml Balance 1395 ml 970 ml Exam Constitutional: alert, oriented, well developed Respiratory: clear to auscultation, normal air movement Cardiovascular: nl pulses, regular rate and rhythm Gastrointestinal: non-tender, soft Musculoskeletal: nl extremities to inspection Extremities: other Neurological: nl mental status, nl speech Skin: other, rash or lesions Results Result Diagram: 01/01/17 0538 01/01/17 0538 Results 24 hrs Laboratory Tests Test 12/31/16 17:23 12/31/16 20:43 01/01/17 05:38 01/01/17 08:20 Bedside Glucose 83 137 95 White Blood Count 8.6 Red Blood Count 4.01 L Hemoglobin 11.5 L Hematocrit 34.6 L Mean Corpuscular Volume 86.3 Mean Corpuscular Hemoglobin 28.7 L Mean Corpuscular Hemoglobin Concent 33.2 Red Cell Distribution Width 13.8 Platelet Count 188 Mean Platelet Volume 12.7 H Neutrophils % 72.6 Lymphocytes % 13.7 L Monocytes % 12.5 H Eosinophils % 0.7 Basophils % 0.1 Nucleated Red Blood Cells % 0.0 Neutrophils # (Manual) 6.2 Lymphocytes # 1.2 Monocytes # 1.1 H Eosinophils # 0.1 Basophils # 0.0 Nucleated Red Blood Cells # 0.0 Sodium Level 136 Potassium Level 4.5 Chloride Level 105 Carbon Dioxide Level 26 Anion Gap 10 Blood Urea Nitrogen 14 Creatinine 0.73 Glucose Level 100 Calcium Level 10.0 Test 01/01/17 11:45 Bedside Glucose 118 Medications Medications Current Medications Aspirin (Halfprin) 81 mg DAILY PO Last administered on 01/01/17 08:22; Admin Dose 81 MG; Start 12/27/16 at 09:00 Benazepril HCl (Lotensin) 10 mg DAILY PO Last administered on 01/01/17 08:22; Admin Dose 10 MG; Start 12/27/16 at 09:00 Clopidogrel Bisulfate (plaVIX) 75 mg DAILY PO Last administered on 01/01/17 08 :22; Admin Dose 75 MG; Start 12/27/16 at 09:00 Diltiazem HCl (Cardizem Cd) 180 mg DAILY PO Last administered on 01/01/17 08: 23; Admin Dose 180 MG; Start 12/26/16 at 14:00 Doxycycline Hyclate (Vibramycin) 100 mg BID PO Last administered on 01/01/17 08:21; Admin Dose 100 MG; Start 12/26/16 at 21:00 Famotidine (Pepcid) 40 mg HS PO Last administered on 12/31/16 20:45; Admin Dose 40 MG; Start 12/26/16 at 21:00 Folic Acid (Folic Acid) 1 mg DAILY PO Last administered on 01/01/17 08:22; Admin Dose 1 MG; Start 12/27/16 at 09:00 Gabapentin (Neurontin) 100 mg TID PO Last administered on 01/01/17 08:21; Admin Dose 100 MG; Start 12/26/16 at 21:00 Metoprolol Tartrate (Lopressor) 75 mg BID PO Last administered on 01/01/17 08: 22; Admin Dose 75 MG; Start 12/26/16 at 21:00 Mycophenolate Mofetil (Cellcept) 1,000 mg BID PO Last administered on 08:21; Admin Dose 1,000 MG; Start 12/26/16 at 21:00 Tacrolimus (Prograf) 2 mg Q12 PO Last administered on 01/01/17 08:21; Admin Dose 2 MG; Start 12/26/16 at 21:00 Pantoprazole (Protonix Tab) 40 mg DAILY@06 PO Last administered on 01/01/17 05 :40; Admin Dose 40 MG; Start 12/27/16 at 06:00 Morphine Sulfate (morphine) 2 mg Q4H PRN IV PAIN LEVEL 6-10 Last administered on 01/01/17 04:35; Admin Dose 2 MG; Start 12/26/16 at 14:30 Diagnostic Test (Pha) (Accu-Chek) 1 ea 02 XX ; Start 12/27/16 at 02:00 Miscellaneous Information 1 ea NOTE XX ; Start 12/26/16 at 14:30 Glucose (Glutose) 15 gm Q15M PRN PO DECREASED GLUCOSE; Start 12/26/16 at 14:30 Glucose (Glutose) 22.5 gm Q15M PRN PO DECREASED GLUCOSE; Start 12/26/16 at 14:30 Dextrose (D50w Syringe) 25 ml Q15M PRN IV DECREASED GLUCOSE; Start 12/26/16 at 14:30 Dextrose (D50w Syringe) 50 ml Q15M PRN IV DECREASED GLUCOSE; Start 12/26/16 at 14:30 Glucagon (Glucagen) 1 mg Q15M PRN IM DECREASED GLUCOSE; Start 12/26/16 at 14:30 Glucose (Glutose) 15 gm Q15M PRN BUCCAL DECREASED GLUCOSE; Start 12/26/16 at 14: 30 Acetaminophen/ Hydrocodone Bitart ([place] (5/325)) 1 tab Q8 PO Last administered on 01/01/17 05:41; Admin Dose 1 TAB; Start 12/26/16 at 22:00 Cholecalciferol (Vitamin D) 1,000 unit DAILY PO Last administered on 01/01/17 08:21; Admin Dose 1,000 UNIT; Start 12/28/16 at 09:00 Insulin Glargine (Lantus) 7 unit DAILY@20 SC Last administered on 12/31/16 20: 52; Admin Dose 7 UNIT; Start 12/29/16 at 20:00 Ondansetron HCl (Zofran Inj) 4 mg Q6H PRN IV NAUSEA AND/OR VOMITING Last administered on 9/13/17at 10:00; Admin Dose 4 MG; Start 01/01/17 at 10:00 TIM BENNETT Jan 01, 2017 12:41
--- NOTE | 2017-01-01 13:40 | CONS ---
Date/Time of Note Date/Time of Note DATE: 01/01/17 TIME: 13:38 Assessment/Plan Assessment/Plan Chief Complaint/Hosp Course SUBJECTIVE DATA: No changes, alert, looks depressed, no fevers, BLE pain persists ANTIMICROBIALS: Doxycycline GENERAL: This is a fragile well-developed elderly woman who is alert in no distress. HEENT: Head atraumatic, normocephalic. Sclerae anicteric. Buccal mucosa pink. NECK: Supple. CHEST: Rise symmetrical. Breath sounds clear. HEART: S1, S2. ABDOMEN: Soft, bowel sounds present. EXTREMITIES: B feet dressing present AND intact, B gangrenous toes. ASSESSMENT: 1. Bilateral foot gangrene===> failed revascularization procedure and multiple debridement 2. Hypertension. 3. Diabetes. 4. History of kidney transplant in 2009. On immunosuppressive therapy. 5. Anemia. PLAN: Clinically unchanged, per vascular rec-s will require AKA/BKA, pt refused , continue present care, pain management DW staff Problems: Consultation Date/Type/Reason Admit Date/Time Dec 26, 2016 at 13:22 Initial Consult Date 12/27/16 Type of Consultation: ID Referring Provider: KRISTIN HALL MD Exam/Review of Systems Vital Signs Vitals Vital Signs Date Time Temp Pulse Resp B/P Pulse Ox O2 Delivery O2 Flow Rate FiO2 01/01/17 08:00 98.8 90 18 158/61 96 Intake and Output 12/31/16 12/31/16 01/01/17 15:00 23:00 07:00 Intake Total 1395 ml 970 ml Balance 1395 ml 970 ml Results Result Diagram: 01/01/17 0538 01/01/17 0538 Results 24 hrs Laboratory Tests Test 12/31/16 17:23 12/31/16 20:43 01/01/17 05:38 01/01/17 08:20 Bedside Glucose 83 137 95 White Blood Count 8.6 Red Blood Count 4.01 L Hemoglobin 11.5 L Hematocrit 34.6 L Mean Corpuscular Volume 86.3 Mean Corpuscular Hemoglobin 28.7 L Mean Corpuscular Hemoglobin Concent 33.2 Red Cell Distribution Width 13.8 Platelet Count 188 Mean Platelet Volume 12.7 H Neutrophils % 72.6 Lymphocytes % 13.7 L Monocytes % 12.5 H Eosinophils % 0.7 Basophils % 0.1 Nucleated Red Blood Cells % 0.0 Neutrophils # (Manual) 6.2 Lymphocytes # 1.2 Monocytes # 1.1 H Eosinophils # 0.1 Basophils # 0.0 Nucleated Red Blood Cells # 0.0 Sodium Level 136 Potassium Level 4.5 Chloride Level 105 Carbon Dioxide Level 26 Anion Gap 10 Blood Urea Nitrogen 14 Creatinine 0.73 Glucose Level 100 Calcium Level 10.0 Test 01/01/17 11:45 Bedside Glucose 118 Medications Medications Current Medications Aspirin (Halfprin) 81 mg DAILY PO Last administered on 01/01/17 08:22; Admin Dose 81 MG; Start 12/27/16 at 09:00 Benazepril HCl (Lotensin) 10 mg DAILY PO Last administered on 01/01/17 08:22; Admin Dose 10 MG; Start 12/27/16 at 09:00 Clopidogrel Bisulfate (plaVIX) 75 mg DAILY PO Last administered on 01/01/17 08 :22; Admin Dose 75 MG; Start 12/27/16 at 09:00 Diltiazem HCl (Cardizem Cd) 180 mg DAILY PO Last administered on 01/01/17 08: 23; Admin Dose 180 MG; Start 12/26/16 at 14:00 Doxycycline Hyclate (Vibramycin) 100 mg BID PO Last administered on 01/01/17 08:21; Admin Dose 100 MG; Start 12/26/16 at 21:00 Famotidine (Pepcid) 40 mg HS PO Last administered on 12/31/16 20:45; Admin Dose 40 MG; Start 12/26/16 at 21:00 Folic Acid (Folic Acid) 1 mg DAILY PO Last administered on 01/01/17 08:22; Admin Dose 1 MG; Start 12/27/16 at 09:00 Gabapentin (Neurontin) 100 mg TID PO Last administered on 01/01/17 13:16; Admin Dose 100 MG; Start 12/26/16 at 21:00 Metoprolol Tartrate (Lopressor) 75 mg BID PO Last administered on 01/01/17 08: 22; Admin Dose 75 MG; Start 12/26/16 at 21:00 Mycophenolate Mofetil (Cellcept) 1,000 mg BID PO Last administered on 08:21; Admin Dose 1,000 MG; Start 12/26/16 at 21:00 Tacrolimus (Prograf) 2 mg Q12 PO Last administered on 01/01/17 08:21; Admin Dose 2 MG; Start 12/26/16 at 21:00 Pantoprazole (Protonix Tab) 40 mg DAILY@06 PO Last administered on 01/01/17 05 :40; Admin Dose 40 MG; Start 12/27/16 at 06:00 Morphine Sulfate (morphine) 2 mg Q4H PRN IV PAIN LEVEL 6-10 Last administered on 01/01/17 04:35; Admin Dose 2 MG; Start 12/26/16 at 14:30 Diagnostic Test (Pha) (Accu-Chek) 1 ea 02 XX ; Start 12/27/16 at 02:00 Miscellaneous Information 1 ea NOTE XX ; Start 12/26/16 at 14:30 Glucose (Glutose) 15 gm Q15M PRN PO DECREASED GLUCOSE; Start 12/26/16 at 14:30 Glucose (Glutose) 22.5 gm Q15M PRN PO DECREASED GLUCOSE; Start 12/26/16 at 14:30 Dextrose (D50w Syringe) 25 ml Q15M PRN IV DECREASED GLUCOSE; Start 12/26/16 at 14:30 Dextrose (D50w Syringe) 50 ml Q15M PRN IV DECREASED GLUCOSE; Start 12/26/16 at 14:30 Glucagon (Glucagen) 1 mg Q15M PRN IM DECREASED GLUCOSE; Start 12/26/16 at 14:30 Glucose (Glutose) 15 gm Q15M PRN BUCCAL DECREASED GLUCOSE; Start 12/26/16 at 14: 30 Acetaminophen/ Hydrocodone Bitart ([place] (5/325)) 1 tab Q8 PO Last administered on 01/01/17 13:16; Admin Dose 1 TAB; Start 12/26/16 at 22:00 Cholecalciferol (Vitamin D) 1,000 unit DAILY PO Last administered on 01/01/17 08:21; Admin Dose 1,000 UNIT; Start 12/28/16 at 09:00 Insulin Glargine (Lantus) 7 unit DAILY@20 SC Last administered on 12/31/16 20: 52; Admin Dose 7 UNIT; Start 12/29/16 at 20:00 Ondansetron HCl (Zofran Inj) 4 mg Q6H PRN IV NAUSEA AND/OR VOMITING Last administered on 9/13/17at 10:00; Admin Dose 4 MG; Start 01/01/17 at 10:00 JACQUES HUERTA NP Jan 01, 2017 13:40
[2017-01-01 14:00] VITALS: BP 119/67; RESP 20
--- NOTE | 2017-01-01 14:25 | CONS ---
Date/Time of Note Date/Time of Note DATE: 01/01/17 TIME: 14:15 Assessment/Plan Assessment/Plan Chief Complaint/Hosp Course IMP: 1.Hli-tb-[id number] test 10/2016 with no ischemia/only scar/NL EF 2.HTN 3.PAD with bilateral gangrene 4.DM 5.Anemia Recc: -Continuer asa/plavix -Cointinue benazepril/metoprolol -LOcal wound care -Continue abx's and f/u cx data -Will complete delisa and if troponin's negative then patient is ok to proceed to OR on current medications without further noninvasive evaluation on current medications Problems: Consultation Date/Type/Reason Admit Date/Time Dec 26, 2016 at 13:22 Initial Consult Date 12/27/16 Type of Consultation: cardiology Reason for Consultation Pre-op Referring Provider: KRISTIN HALL MD Exam/Review of Systems Vital Signs Vitals Vital Signs Date Time Temp Pulse Resp B/P Pulse Ox O2 Delivery O2 Flow Rate FiO2 01/01/17 08:00 98.8 90 18 158/61 96 Intake and Output 12/31/16 12/31/16 01/01/17 15:00 23:00 07:00 Intake Total 1395 ml 970 ml Balance 1395 ml 970 ml Exam Review of Systems: CONSTITUTIONAL: No fevers, chills. PULMONARY: No sob CARDIOVASCULAR: No chest pain/palpitations GASTROINTESTINAL: No nausea/vomiting. GENITOURINARY: No hematuria/dysuria. MUSCULOSKELETAL: No myagias/arthalgias. PSYCHIATRIC: The patient denies depression. NEUROLOGIC: No weakness Constitutional: alert Psych: no complaints Head: normocephalic ENMT: mucosa pink and moist Neck: jvd (9 cm water), supple Respiratory: diminished breath sounds (at bases/B) Cardiovascular: regular rate and rhythm Gastrointestinal: non-tender, soft Musculoskeletal: muscle tone (normal) Extremities: edema (none) Neurological: other (No focal deficits) Results Result Diagram: 01/01/17 0538 01/01/17 0538 Results 24 hrs Laboratory Tests Test 12/31/16 17:23 12/31/16 20:43 01/01/17 05:38 01/01/17 08:20 Bedside Glucose 83 137 95 White Blood Count 8.6 Red Blood Count 4.01 L Hemoglobin 11.5 L Hematocrit 34.6 L Mean Corpuscular Volume 86.3 Mean Corpuscular Hemoglobin 28.7 L Mean Corpuscular Hemoglobin Concent 33.2 Red Cell Distribution Width 13.8 Platelet Count 188 Mean Platelet Volume 12.7 H Neutrophils % 72.6 Lymphocytes % 13.7 L Monocytes % 12.5 H Eosinophils % 0.7 Basophils % 0.1 Nucleated Red Blood Cells % 0.0 Neutrophils # (Manual) 6.2 Lymphocytes # 1.2 Monocytes # 1.1 H Eosinophils # 0.1 Basophils # 0.0 Nucleated Red Blood Cells # 0.0 Sodium Level 136 Potassium Level 4.5 Chloride Level 105 Carbon Dioxide Level 26 Anion Gap 10 Blood Urea Nitrogen 14 Creatinine 0.73 Glucose Level 100 Calcium Level 10.0 Test 01/01/17 11:45 Bedside Glucose 118 Medications Medications Current Medications Aspirin (Halfprin) 81 mg DAILY PO Last administered on 01/01/17 08:22; Admin Dose 81 MG; Start 12/27/16 at 09:00 Benazepril HCl (Lotensin) 10 mg DAILY PO Last administered on 01/01/17 08:22; Admin Dose 10 MG; Start 12/27/16 at 09:00 Clopidogrel Bisulfate (plaVIX) 75 mg DAILY PO Last administered on 01/01/17 08 :22; Admin Dose 75 MG; Start 12/27/16 at 09:00 Diltiazem HCl (Cardizem Cd) 180 mg DAILY PO Last administered on 01/01/17 08: 23; Admin Dose 180 MG; Start 12/26/16 at 14:00 Doxycycline Hyclate (Vibramycin) 100 mg BID PO Last administered on 01/01/17 08:21; Admin Dose 100 MG; Start 12/26/16 at 21:00 Famotidine (Pepcid) 40 mg HS PO Last administered on 12/31/16 20:45; Admin Dose 40 MG; Start 12/26/16 at 21:00 Folic Acid (Folic Acid) 1 mg DAILY PO Last administered on 01/01/17 08:22; Admin Dose 1 MG; Start 12/27/16 at 09:00 Gabapentin (Neurontin) 100 mg TID PO Last administered on 01/01/17 13:16; Admin Dose 100 MG; Start 12/26/16 at 21:00 Metoprolol Tartrate (Lopressor) 75 mg BID PO Last administered on 01/01/17 08: 22; Admin Dose 75 MG; Start 12/26/16 at 21:00 Mycophenolate Mofetil (Cellcept) 1,000 mg BID PO Last administered on 08:21; Admin Dose 1,000 MG; Start 12/26/16 at 21:00 Tacrolimus (Prograf) 2 mg Q12 PO Last administered on 01/01/17 08:21; Admin Dose 2 MG; Start 12/26/16 at 21:00 Pantoprazole (Protonix Tab) 40 mg DAILY@06 PO Last administered on 01/01/17 05 :40; Admin Dose 40 MG; Start 12/27/16 at 06:00 Morphine Sulfate (morphine) 2 mg Q4H PRN IV PAIN LEVEL 6-10 Last administered on 01/01/17 04:35; Admin Dose 2 MG; Start 12/26/16 at 14:30 Diagnostic Test (Pha) (Accu-Chek) 1 ea 02 XX ; Start 12/27/16 at 02:00 Miscellaneous Information 1 ea NOTE XX ; Start 12/26/16 at 14:30 Glucose (Glutose) 15 gm Q15M PRN PO DECREASED GLUCOSE; Start 12/26/16 at 14:30 Glucose (Glutose) 22.5 gm Q15M PRN PO DECREASED GLUCOSE; Start 12/26/16 at 14:30 Dextrose (D50w Syringe) 25 ml Q15M PRN IV DECREASED GLUCOSE; Start 12/26/16 at 14:30 Dextrose (D50w Syringe) 50 ml Q15M PRN IV DECREASED GLUCOSE; Start 12/26/16 at 14:30 Glucagon (Glucagen) 1 mg Q15M PRN IM DECREASED GLUCOSE; Start 12/26/16 at 14:30 Glucose (Glutose) 15 gm Q15M PRN BUCCAL DECREASED GLUCOSE; Start 12/26/16 at 14: 30 Acetaminophen/ Hydrocodone Bitart ([place] (5/325)) 1 tab Q8 PO Last administered on 01/01/17 13:16; Admin Dose 1 TAB; Start 12/26/16 at 22:00 Cholecalciferol (Vitamin D) 1,000 unit DAILY PO Last administered on 01/01/17 08:21; Admin Dose 1,000 UNIT; Start 12/28/16 at 09:00 Insulin Glargine (Lantus) 7 unit DAILY@20 SC Last administered on 12/31/16 20: 52; Admin Dose 7 UNIT; Start 12/29/16 at 20:00 Ondansetron HCl (Zofran Inj) 4 mg Q6H PRN IV NAUSEA AND/OR VOMITING Last administered on 01/01/17 10:00; Admin Dose 4 MG; Start 01/01/17 at 10:00 TIMOTHY CORTES Jan 01, 2017 14:25
[2017-01-01 19:59] LABS: CREATINE KINASE 57 IU/L (23-200)
--- NOTE | 2017-01-01 20:08 | CONS ---
Date/Time of Note Date/Time of Note DATE: 01/01/17 TIME: 20:07 Assessment/Plan Assessment/Plan Additional Assessment/Plan 1. 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 h/o donor kidney transplant in 2009 at [facility], currently on immunosuppression with Prograf, CellCept 4. 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 History of hypertension. 6. History of diabetes mellitus. 7. History of previous left upper extremity arteriovenous fistula. 8. Hyponatremia due to hypovolemic hyponatremia Plan: continue Current immunosuppression Prograf and cellcept, Cr normal, Na improved to normal with 1 L NS Vascular surgery following IV abx as per ID, ID consulted on case Pt will need podiatry consult Renal function currently has been stable Plan for OR tomorrow, S/p cardiology consult today Consultation Date/Type/Reason Admit Date/Time Dec 26, 2016 at 13:22 Initial Consult Date 12/27/16 Type of Consultation: NEPHROLOGY Referring Provider: KRISTIN HALL MD Exam/Review of Systems Vital Signs Vitals Vital Signs Date Time Temp Pulse Resp B/P Pulse Ox O2 Delivery O2 Flow Rate FiO2 01/01/17 14:00 98.8 65 20 119/67 18 Intake and Output 12/31/16 12/31/16 01/01/17 15:00 23:00 07:00 Intake Total 1395 ml 970 ml Balance 1395 ml 970 ml Exam Constitutional: alert Respiratory: clear to auscultation, diminished breath sounds, normal air movement Cardiovascular: nl pulses, regular rate and rhythm Gastrointestinal: non-tender, soft Extremities: normal pulses, other (Bilateral LE gangrene ) Neurological: FIRE PREVENTION CHIEF II-XII intact, nl mental status, nl speech, nl strength Results Result Diagram: 01/01/17 0538 01/01/17 0538 Results 24 hrs Laboratory Tests Test 12/31/16 20:43 01/01/17 05:38 01/01/17 08:20 01/01/17 11:45 Bedside Glucose 137 95 118 White Blood Count 8.6 Red Blood Count 4.01 L Hemoglobin 11.5 L Hematocrit 34.6 L Mean Corpuscular Volume 86.3 Mean Corpuscular Hemoglobin 28.7 L Mean Corpuscular Hemoglobin Concent 33.2 Red Cell Distribution Width 13.8 Platelet Count 188 Mean Platelet Volume 12.7 H Neutrophils % 72.6 Lymphocytes % 13.7 L Monocytes % 12.5 H Eosinophils % 0.7 Basophils % 0.1 Nucleated Red Blood Cells % 0.0 Neutrophils # (Manual) 6.2 Lymphocytes # 1.2 Monocytes # 1.1 H Eosinophils # 0.1 Basophils # 0.0 Nucleated Red Blood Cells # 0.0 Sodium Level 136 Potassium Level 4.5 Chloride Level 105 Carbon Dioxide Level 26 Anion Gap 10 Blood Urea Nitrogen 14 Creatinine 0.73 Glucose Level 100 Calcium Level 10.0 Test 01/01/17 16:49 01/01/17 19:26 Bedside Glucose 128 Creatine Kinase 57 Creatine Kinase Index Pending Creatinine Kinase MB (Mass) Pending Troponin I Pending Medications Medications Current Medications Aspirin (Halfprin) 81 mg DAILY PO Last administered on 01/01/17 08:22; Admin Dose 81 MG; Start 12/27/16 at 09:00 Benazepril HCl (Lotensin) 10 mg DAILY PO Last administered on 01/01/17 08:22; Admin Dose 10 MG; Start 12/27/16 at 09:00 Clopidogrel Bisulfate (plaVIX) 75 mg DAILY PO Last administered on 01/01/17 08 :22; Admin Dose 75 MG; Start 12/27/16 at 09:00 Diltiazem HCl (Cardizem Cd) 180 mg DAILY PO Last administered on 01/01/17 08: 23; Admin Dose 180 MG; Start 12/26/16 at 14:00 Doxycycline Hyclate (Vibramycin) 100 mg BID PO Last administered on 01/01/17 08:21; Admin Dose 100 MG; Start 12/26/16 at 21:00 Famotidine (Pepcid) 40 mg HS PO Last administered on 12/31/16 20:45; Admin Dose 40 MG; Start 12/26/16 at 21:00 Folic Acid (Folic Acid) 1 mg DAILY PO Last administered on 01/01/17 08:22; Admin Dose 1 MG; Start 12/27/16 at 09:00 Gabapentin (Neurontin) 100 mg TID PO Last administered on 01/01/17 13:16; Admin Dose 100 MG; Start 12/26/16 at 21:00 Metoprolol Tartrate (Lopressor) 75 mg BID PO Last administered on 01/01/17 08: 22; Admin Dose 75 MG; Start 12/26/16 at 21:00 Mycophenolate Mofetil (Cellcept) 1,000 mg BID PO Last administered on 08:21; Admin Dose 1,000 MG; Start 12/26/16 at 21:00 Tacrolimus (Prograf) 2 mg Q12 PO Last administered on 01/01/17 08:21; Admin Dose 2 MG; Start 12/26/16 at 21:00 Pantoprazole (Protonix Tab) 40 mg DAILY@06 PO Last administered on 01/01/17 05 :40; Admin Dose 40 MG; Start 12/27/16 at 06:00 Morphine Sulfate (morphine) 2 mg Q4H PRN IV PAIN LEVEL 6-10 Last administered on 01/01/17 16:46; Admin Dose 2 MG; Start 12/26/16 at 14:30 Diagnostic Test (Pha) (Accu-Chek) 1 ea 02 XX ; Start 12/27/16 at 02:00 Miscellaneous Information 1 ea NOTE XX ; Start 12/26/16 at 14:30 Glucose (Glutose) 15 gm Q15M PRN PO DECREASED GLUCOSE; Start 12/26/16 at 14:30 Glucose (Glutose) 22.5 gm Q15M PRN PO DECREASED GLUCOSE; Start 12/26/16 at 14:30 Dextrose (D50w Syringe) 25 ml Q15M PRN IV DECREASED GLUCOSE; Start 12/26/16 at 14:30 Dextrose (D50w Syringe) 50 ml Q15M PRN IV DECREASED GLUCOSE; Start 12/26/16 at 14:30 Glucagon (Glucagen) 1 mg Q15M PRN IM DECREASED GLUCOSE; Start 12/26/16 at 14:30 Glucose (Glutose) 15 gm Q15M PRN BUCCAL DECREASED GLUCOSE; Start 12/26/16 at 14: 30 Acetaminophen/ Hydrocodone Bitart ([place] (5/325)) 1 tab Q8 PO Last administered on 01/01/17 13:16; Admin Dose 1 TAB; Start 12/26/16 at 22:00 Cholecalciferol (Vitamin D) 1,000 unit DAILY PO Last administered on 01/01/17 08:21; Admin Dose 1,000 UNIT; Start 12/28/16 at 09:00 Insulin Glargine (Lantus) 7 unit DAILY@20 SC Last administered on 12/31/16 20: 52; Admin Dose 7 UNIT; Start 12/29/16 at 20:00 Ondansetron HCl (Zofran Inj) 4 mg Q6H PRN IV NAUSEA AND/OR VOMITING Last administered on 01/01/17 10:00; Admin Dose 4 MG; Start 01/01/17 at 10:00 RAMON KEMP MD Jan 01, 2017 20:08
[2017-01-01 20:12] LABS: CK-MB 1.04 ng/ml (0.0-2.4)
[2017-01-01 20:15] LABS: TROPONIN-I < 0.012 ng/ml (0.00-0.12)
[2017-01-01 20:23] VITALS: BP 132/74; RESP 18
[2017-01-01] MEDS: FAMOTIDINE 20 MG TAB PO SCH (21:06)
[2017-01-01] MEDS: INSULIN GLARGINE [LANtus] 3 ML PEN SC SCH (21:12)
[2017-01-01] MEDS: ACCU-CHEK XX SCH (21:17)
[2017-01-02 01:27] LABS: CREATINE KINASE 43 IU/L (23-200)
[2017-01-02 01:41] LABS: CK-MB 0.72 ng/ml (0.0-2.4)
[2017-01-02 01:57] LABS: TROPONIN-I < 0.012 ng/ml (0.00-0.12)
[2017-01-02 02:53] VITALS: BP 104/62; RESP 18
[2017-01-02] MEDS: morphine 2 MG INJ IV PRN ×3 (04:58→20:10)
[2017-01-02] MEDS: HYDROCODONE/APAP (5/325) TAB PO SCH ×3 (06:01→22:34)
[2017-01-02] MEDS: PANTOPRAZOLE (EC) 40 MG TAB PO SCH (06:01)
[2017-01-02 06:38] LABS: CK-MB 1.02 ng/ml (0.0-2.4); TROPONIN-I 0.017 ng/ml (0.00-0.12)
[2017-01-02 08:00] VITALS: BP 113/72; RESP 18
[2017-01-02] MEDS: INSULIN ASPART [NOVOLOG] 3 ML PEN SC SCH ×4 (08:00→21:00)
--- NOTE | 2017-01-02 08:40 | PN ---
Date/Time of Note Date/Time of Note DATE: 01/02/17 TIME: 08:39 Assessment/Plan Lines/Catheters IV Catheter Type (from Nrs): Saline Lock More[place] in Place (from Nrsg): No Assessment/Plan Chief Complaint/Hosp Course -Bilateral lower extremity atherosclerosis with bilateral foot gangrene: It seems that the patient's progression of atherosclerotic disease is still there despite multiple interventions. The patient has developed worsening gangrene of the left first toe and rest pain again. Unfortunately all vascular interventions have been exhausted as she has significant LE atherosclerotic disease and no amenable conduit for a LE bypass. Given our recent endovascular intervention she would likely not benefit from any further interventions. Had a lengthy conversation with the patient about realistic outcomes of limb salvage. Recommend BKA/AKA once the rest pain has become intolerable or develops LE infection/sepsis that threatens her life. -At the moment patient likes to wait and not have an amputation, D/C planning can be initiated from vascular standpoint -Unfortunately she may encounter the same issue with her RLE. However, at the moment no significant rest pain reported -Optimize vascular status (BP medications, diet, nutrition and exercise, sugar control, antiplatelets). -Continue with antibiotics for the gangrene. -Podiatry colleagues are involved with the local wound care and -Cardiology evaluation for possible BKA/AKA -Discussed findings, plan and management with the patient with a certified meter reader and she understands. -Thank you for allowing us to partake in the care of your patient. Please call with any questions. Problems: Subjective 24 Hr Interval Summary no new vascular events, she still has rest pain Exam/Review of Systems Vital Signs Vitals Vital Signs Date Time Temp Pulse Resp B/P Pulse Ox O2 Delivery O2 Flow Rate FiO2 01/02/17 02:53 98.0 60 18 104/62 100 Intake and Output 01/01/17 01/01/17 01/02/17 15:00 23:00 07:00 Intake Total 450 ml 900 ml 400 ml Balance 450 ml 900 ml 400 ml Exam Free Text/Dictation Alert and oriented x3 LUNGS: Clear to auscultation bilaterally. CARDIOVASCULAR: S1 and S2 present ABDOMEN: Soft, nontender and nondistended. Bowel sounds positive. Surgical scar well healed. EXTREMITIES: -Right lower extremity faint femoral pulse. Nonpalpable pedal pulse. Motor and sensory intact. Capillary refill 4 seconds. 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 -Left lower extremity faint femoral pulse. Nonpalpable pedal pulse. Motor and sensory intact. Capillary refill 4 seconds. Tenderness and pain of left first toe with gangrene, fourth and fifth toe amputation stump with gangrene. delayed cap refill, Results Result Diagram: 01/01/17 0538 01/01/17 0538 WILD DUARTE MD Jan 02, 2017 08:40
[2017-01-02] MEDS: BENAZEPRIL 10 MG TAB PO SCH (09:00)
[2017-01-02] MEDS: ASPIRIN (EC) 81 MG TAB PO SCH (10:12)
[2017-01-02] MEDS: DILTIAZEM (CD) 180 MG CAP PO SCH (10:12)
[2017-01-02] MEDS: MYCOPHENOLATE 250 MG CAP PO SCH ×2 (10:12→20:19)
[2017-01-02] MEDS: FOLIC ACID 1 MG TAB PO SCH (10:12)
[2017-01-02] MEDS: CLOPIDOGREL 75 MG TAB PO SCH (10:13)
[2017-01-02] MEDS: GABAPENTIN 100 MG CAP PO SCH ×3 (10:13→20:20)
[2017-01-02] MEDS: METOPROLOL 25 MG TAB PO SCH ×2 (10:13→20:20)
[2017-01-02] MEDS: DOXYCYCLINE 100 MG TAB PO SCH ×2 (10:13→20:20)
[2017-01-02] MEDS: TACROLIMUS 1 MG CAP PO SCH ×2 (10:13→20:20)
[2017-01-02] MEDS: CHOLECALCIFEROL 1,000 UNIT TAB PO SCH (10:14)
--- NOTE | 2017-01-02 11:11 | RADRPT ---
Vent Rate: 64 bpm RR Interval: 0 msec WV Interval: 168 msec QRS Duration: 90 msec QT Interval: 452 msec QTC Interval: 466 msec P-R-T [place]: 55 - 19 - 43 degrees Normal sinus rhythm Normal ECG Electronically Signed By: Ra Magana [id number]
--- NOTE | 2017-01-02 14:21 | CONS ---
Date/Time of Note Date/Time of Note DATE: 01/02/17 TIME: 14:17 Assessment/Plan Assessment/Plan Chief Complaint/Hosp Course IMP: 1.Zwx-[id number] test 10/2016 with no ischemia/only scar/NL EF. Negative trop x 3. Patient is ok to proceed to OR at moderate risk without further noninvasive evaluation on current medications 2.HTN 3.PAD with bilateral gangrene 4.DM 5.Anemia Recc: -Continuer asa/plavix -Cointinue benazepril/metoprolol -LOcal wound care -Continue abx's and f/u cx data Problems: Consultation Date/Type/Reason Admit Date/Time Dec 26, 2016 at 13:22 Initial Consult Date 12/27/16 Type of Consultation: cardiology Reason for Consultation preop Referring Provider: KRISTIN HALL MD Exam/Review of Systems Vital Signs Vitals Vital Signs Date Time Temp Pulse Resp B/P Pulse Ox O2 Delivery O2 Flow Rate FiO2 01/02/17 08:00 98.8 86 18 113/72 96 Intake and Output 01/01/17 01/01/17 01/02/17 15:00 23:00 07:00 Intake Total 450 ml 900 ml 400 ml Balance 450 ml 900 ml 400 ml Exam Review of Systems: CONSTITUTIONAL: No fevers, chills. PULMONARY: No sob CARDIOVASCULAR: No chest pain/palpitations GASTROINTESTINAL: No nausea/vomiting. GENITOURINARY: No hematuria/dysuria. MUSCULOSKELETAL: No myagias/arthalgias. PSYCHIATRIC: The patient denies depression. NEUROLOGIC: No weakness Constitutional: alert Psych: no complaints Head: normocephalic ENMT: mucosa pink and moist Neck: jvd, supple Respiratory: diminished breath sounds Cardiovascular: regular rate and rhythm Gastrointestinal: non-tender, soft Musculoskeletal: muscle tone (normal) Extremities: edema (none) Neurological: other (No focal deficits) Results Result Diagram: 01/01/17 0538 01/01/17 0538 Results 24 hrs Laboratory Tests Test 01/01/17 16:49 01/01/17 19:26 01/01/17 21:05 01/02/17 00:34 Bedside Glucose 128 134 Creatine Kinase 57 43 Creatine Kinase Index 1.8 1.7 Creatinine Kinase MB (Mass) 1.04 0.72 Troponin I < 0.012 < 0.012 Test 01/02/17 04:59 01/02/17 07:58 01/02/17 12:00 Creatine Kinase 45 Creatine Kinase Index 2.3 Creatinine Kinase MB (Mass) 1.02 Troponin I 0.017 Bedside Glucose 105 94 Medications Medications Current Medications Aspirin (Halfprin) 81 mg DAILY PO Last administered on 01/02/17 10:12; Admin Dose 81 MG; Start 12/27/16 at 09:00 Benazepril HCl (Lotensin) 10 mg DAILY PO Last administered on 01/01/17 08:22; Admin Dose 10 MG; Start 12/27/16 at 09:00 Clopidogrel Bisulfate (plaVIX) 75 mg DAILY PO Last administered on 01/02/17 10 :13; Admin Dose 75 MG; Start 12/27/16 at 09:00 Diltiazem HCl (Cardizem Cd) 180 mg DAILY PO Last administered on 01/02/17 10: 12; Admin Dose 180 MG; Start 12/26/16 at 14:00 Doxycycline Hyclate (Vibramycin) 100 mg BID PO Last administered on 01/02/17 10:13; Admin Dose 100 MG; Start 12/26/16 at 21:00 Famotidine (Pepcid) 40 mg HS PO Last administered on 01/01/17 21:06; Admin Dose 40 MG; Start 12/26/16 at 21:00 Folic Acid (Folic Acid) 1 mg DAILY PO Last administered on 01/02/17 10:12; Admin Dose 1 MG; Start 12/27/16 at 09:00 Gabapentin (Neurontin) 100 mg TID PO Last administered on 01/02/17 12:02; Admin Dose 100 MG; Start 12/26/16 at 21:00 Metoprolol Tartrate (Lopressor) 75 mg BID PO Last administered on 01/02/17 10: 13; Admin Dose 75 MG; Start 12/26/16 at 21:00 Mycophenolate Mofetil (Cellcept) 1,000 mg BID PO Last administered on 10:12; Admin Dose 1,000 MG; Start 12/26/16 at 21:00 Tacrolimus (Prograf) 2 mg Q12 PO Last administered on 01/02/17 10:13; Admin Dose 2 MG; Start 12/26/16 at 21:00 Pantoprazole (Protonix Tab) 40 mg DAILY@06 PO Last administered on 01/02/17 06 :01; Admin Dose 40 MG; Start 12/27/16 at 06:00 Morphine Sulfate (morphine) 2 mg Q4H PRN IV PAIN LEVEL 6-10 Last administered on 01/02/17 10:46; Admin Dose 2 MG; Start 12/26/16 at 14:30 Diagnostic Test (Pha) (Accu-Chek) 1 ea 02 XX ; Start 12/27/16 at 02:00 Miscellaneous Information 1 ea NOTE XX ; Start 12/26/16 at 14:30 Glucose (Glutose) 15 gm Q15M PRN PO DECREASED GLUCOSE; Start 12/26/16 at 14:30 Glucose (Glutose) 22.5 gm Q15M PRN PO DECREASED GLUCOSE; Start 12/26/16 at 14:30 Dextrose (D50w Syringe) 25 ml Q15M PRN IV DECREASED GLUCOSE; Start 12/26/16 at 14:30 Dextrose (D50w Syringe) 50 ml Q15M PRN IV DECREASED GLUCOSE; Start 12/26/16 at 14:30 Glucagon (Glucagen) 1 mg Q15M PRN IM DECREASED GLUCOSE; Start 12/26/16 at 14:30 Glucose (Glutose) 15 gm Q15M PRN BUCCAL DECREASED GLUCOSE; Start 12/26/16 at 14: 30 Acetaminophen/ Hydrocodone Bitart ([place] (5/325)) 1 tab Q8 PO Last administered on 01/02/17 14:09; Admin Dose 1 TAB; Start 12/26/16 at 22:00 Cholecalciferol (Vitamin D) 1,000 unit DAILY PO Last administered on 01/02/17 10:14; Admin Dose 1,000 UNIT; Start 12/28/16 at 09:00 Insulin Glargine (Lantus) 7 unit DAILY@20 SC Last administered on 01/01/17 21: 12; Admin Dose 7 UNIT; Start 12/29/16 at 20:00 Ondansetron HCl (Zofran Inj) 4 mg Q6H PRN IV NAUSEA AND/OR VOMITING Last administered on 01/01/17 10:00; Admin Dose 4 MG; Start 01/01/17 at 10:00 TIMOTHY CORTES Jan 02, 2017 14:21
--- NOTE | 2017-01-02 14:59 | CONS ---
Date/Time of Note Date/Time of Note DATE: 01/02/17 TIME: 14:58 Assessment/Plan Assessment/Plan Chief Complaint/Hosp Course SUBJECTIVE DATA: No changes, no fevers, BLE pain persists ANTIMICROBIALS: Doxycycline GENERAL: This is a fragile well-developed elderly woman who is alert in no distress. HEENT: Head atraumatic, normocephalic. Sclerae anicteric. Buccal mucosa pink. NECK: Supple. CHEST: Rise symmetrical. Breath sounds clear. HEART: S1, S2. ABDOMEN: Soft, bowel sounds present. EXTREMITIES: B feet dressing present AND intact, B gangrenous toes. ASSESSMENT: 1. Bilateral foot gangrene===> failed revascularization procedure and multiple debridement 2. Hypertension. 3. Diabetes. 4. History of kidney transplant in 2009. On immunosuppressive therapy. 5. Anemia. PLAN: Clinically unchanged, per vascular rec-s will require AKA/BKA, continue present care, pain management, cardiology/vascular/renal rec-s DW staff Problems: Consultation Date/Type/Reason Admit Date/Time Dec 26, 2016 at 13:22 Initial Consult Date 12/27/16 Type of Consultation: ID Referring Provider: KRISTIN HALL MD Exam/Review of Systems Vital Signs Vitals Vital Signs Date Time Temp Pulse Resp B/P Pulse Ox O2 Delivery O2 Flow Rate FiO2 01/02/17 08:00 98.8 86 18 113/72 96 Intake and Output 01/01/17 01/01/17 01/02/17 15:00 23:00 07:00 Intake Total 450 ml 900 ml 400 ml Balance 450 ml 900 ml 400 ml Results Result Diagram: 01/01/17 0538 01/01/17 0538 Results 24 hrs Laboratory Tests Test 01/01/17 16:49 01/01/17 19:26 01/01/17 21:05 01/02/17 00:34 Bedside Glucose 128 134 Creatine Kinase 57 43 Creatine Kinase Index 1.8 1.7 Creatinine Kinase MB (Mass) 1.04 0.72 Troponin I < 0.012 < 0.012 Test 01/02/17 04:59 01/02/17 07:58 01/02/17 12:00 Creatine Kinase 45 Creatine Kinase Index 2.3 Creatinine Kinase MB (Mass) 1.02 Troponin I 0.017 Bedside Glucose 105 94 Medications Medications Current Medications Aspirin (Halfprin) 81 mg DAILY PO Last administered on 01/02/17 10:12; Admin Dose 81 MG; Start 12/27/16 at 09:00 Benazepril HCl (Lotensin) 10 mg DAILY PO Last administered on 01/01/17 08:22; Admin Dose 10 MG; Start 12/27/16 at 09:00 Clopidogrel Bisulfate (plaVIX) 75 mg DAILY PO Last administered on 01/02/17 10 :13; Admin Dose 75 MG; Start 12/27/16 at 09:00 Diltiazem HCl (Cardizem Cd) 180 mg DAILY PO Last administered on 01/02/17 10: 12; Admin Dose 180 MG; Start 12/26/16 at 14:00 Doxycycline Hyclate (Vibramycin) 100 mg BID PO Last administered on 01/02/17 10:13; Admin Dose 100 MG; Start 12/26/16 at 21:00 Famotidine (Pepcid) 40 mg HS PO Last administered on 01/01/17 21:06; Admin Dose 40 MG; Start 12/26/16 at 21:00 Folic Acid (Folic Acid) 1 mg DAILY PO Last administered on 01/02/17 10:12; Admin Dose 1 MG; Start 12/27/16 at 09:00 Gabapentin (Neurontin) 100 mg TID PO Last administered on 01/02/17 12:02; Admin Dose 100 MG; Start 12/26/16 at 21:00 Metoprolol Tartrate (Lopressor) 75 mg BID PO Last administered on 01/02/17 10: 13; Admin Dose 75 MG; Start 12/26/16 at 21:00 Mycophenolate Mofetil (Cellcept) 1,000 mg BID PO Last administered on 10:12; Admin Dose 1,000 MG; Start 12/26/16 at 21:00 Tacrolimus (Prograf) 2 mg Q12 PO Last administered on 01/02/17 10:13; Admin Dose 2 MG; Start 12/26/16 at 21:00 Pantoprazole (Protonix Tab) 40 mg DAILY@06 PO Last administered on 01/02/17 06 :01; Admin Dose 40 MG; Start 12/27/16 at 06:00 Morphine Sulfate (morphine) 2 mg Q4H PRN IV PAIN LEVEL 6-10 Last administered on 01/02/17 10:46; Admin Dose 2 MG; Start 12/26/16 at 14:30 Diagnostic Test (Pha) (Accu-Chek) 1 ea 02 XX ; Start 12/27/16 at 02:00 Miscellaneous Information 1 ea NOTE XX ; Start 12/26/16 at 14:30 Glucose (Glutose) 15 gm Q15M PRN PO DECREASED GLUCOSE; Start 12/26/16 at 14:30 Glucose (Glutose) 22.5 gm Q15M PRN PO DECREASED GLUCOSE; Start 12/26/16 at 14:30 Dextrose (D50w Syringe) 25 ml Q15M PRN IV DECREASED GLUCOSE; Start 12/26/16 at 14:30 Dextrose (D50w Syringe) 50 ml Q15M PRN IV DECREASED GLUCOSE; Start 12/26/16 at 14:30 Glucagon (Glucagen) 1 mg Q15M PRN IM DECREASED GLUCOSE; Start 12/26/16 at 14:30 Glucose (Glutose) 15 gm Q15M PRN BUCCAL DECREASED GLUCOSE; Start 12/26/16 at 14: 30 Acetaminophen/ Hydrocodone Bitart ([place] (5/325)) 1 tab Q8 PO Last administered on 01/02/17 14:09; Admin Dose 1 TAB; Start 12/26/16 at 22:00 Cholecalciferol (Vitamin D) 1,000 unit DAILY PO Last administered on 01/02/17 10:14; Admin Dose 1,000 UNIT; Start 12/28/16 at 09:00 Insulin Glargine (Lantus) 7 unit DAILY@20 SC Last administered on 01/01/17 21: 12; Admin Dose 7 UNIT; Start 12/29/16 at 20:00 Ondansetron HCl (Zofran Inj) 4 mg Q6H PRN IV NAUSEA AND/OR VOMITING Last administered on 01/01/17 10:00; Admin Dose 4 MG; Start 01/01/17 at 10:00 JACQUES HUERTA NP Jan 02, 2017 14:59
[2017-01-02 16:00] VITALS: BP 117/67; RESP 18
--- NOTE | 2017-01-02 16:51 | CONS ---
Date/Time of Note Date/Time of Note DATE: 01/02/17 TIME: 16:49 Assessment/Plan Assessment/Plan Additional Assessment/Plan 1. 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 h/o donor kidney transplant in 2009 at [facility], currently on immunosuppression with Prograf, CellCept 4. 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 History of hypertension. 6. History of diabetes mellitus. 7. History of previous left upper extremity arteriovenous fistula. 8. Hyponatremia due to hypovolemic hyponatremia Plan: continue Current immunosuppression Prograf and cellcept, Cr normal, Na improved to normal with 1 L NS- no chemistry today to review yet IV abx as per ID Renal function currently has been stable Plan for amputatio as per vascular surgery , S/p cardiology consult today Consultation Date/Type/Reason Admit Date/Time Dec 26, 2016 at 13:22 Initial Consult Date 12/27/16 Type of Consultation: NEPHROLOGY Referring Provider: KRISTIN HALL MD Exam/Review of Systems Vital Signs Vitals Vital Signs Date Time Temp Pulse Resp B/P Pulse Ox O2 Delivery O2 Flow Rate FiO2 01/02/17 08:00 98.8 86 18 113/72 96 Intake and Output 01/01/17 01/01/17 01/02/17 14:59 22:59 06:59 Intake Total 450 ml 900 ml 400 ml Balance 450 ml 900 ml 400 ml Exam Constitutional: alert Respiratory: clear to auscultation, diminished breath sounds, normal air movement Cardiovascular: nl pulses, regular rate and rhythm Gastrointestinal: non-tender, soft Extremities: normal pulses, other (Bilateral LE gangrene ) Neurological: [employer] II-XII intact, nl mental status, nl speech, nl strength Results Result Diagram: 01/01/17 0538 01/01/17 0538 Results 24 hrs Laboratory Tests Test 01/01/17 19:26 01/01/17 21:05 01/02/17 00:34 01/02/17 04:59 Creatine Kinase 57 43 45 Creatine Kinase Index 1.8 1.7 2.3 Creatinine Kinase MB (Mass) 1.04 0.72 1.02 Troponin I < 0.012 < 0.012 0.017 Bedside Glucose 134 Test 01/02/17 07:58 01/02/17 12:00 Bedside Glucose 105 94 Medications Medications Current Medications Aspirin (Halfprin) 81 mg DAILY PO Last administered on 01/02/17 10:12; Admin Dose 81 MG; Start 12/27/16 at 09:00 Benazepril HCl (Lotensin) 10 mg DAILY PO Last administered on 01/01/17 08:22; Admin Dose 10 MG; Start 12/27/16 at 09:00 Clopidogrel Bisulfate (plaVIX) 75 mg DAILY PO Last administered on 01/02/17 10 :13; Admin Dose 75 MG; Start 12/27/16 at 09:00 Diltiazem HCl (Cardizem Cd) 180 mg DAILY PO Last administered on 01/02/17 10: 12; Admin Dose 180 MG; Start 12/26/16 at 14:00 Doxycycline Hyclate (Vibramycin) 100 mg BID PO Last administered on 01/02/17 10:13; Admin Dose 100 MG; Start 12/26/16 at 21:00 Famotidine (Pepcid) 40 mg HS PO Last administered on 01/01/17 21:06; Admin Dose 40 MG; Start 12/26/16 at 21:00 Folic Acid (Folic Acid) 1 mg DAILY PO Last administered on 01/02/17 10:12; Admin Dose 1 MG; Start 12/27/16 at 09:00 Gabapentin (Neurontin) 100 mg TID PO Last administered on 01/02/17 12:02; Admin Dose 100 MG; Start 12/26/16 at 21:00 Metoprolol Tartrate (Lopressor) 75 mg BID PO Last administered on 01/02/17 10: 13; Admin Dose 75 MG; Start 12/26/16 at 21:00 Mycophenolate Mofetil (Cellcept) 1,000 mg BID PO Last administered on 10:12; Admin Dose 1,000 MG; Start 12/26/16 at 21:00 Tacrolimus (Prograf) 2 mg Q12 PO Last administered on 01/02/17 10:13; Admin Dose 2 MG; Start 12/26/16 at 21:00 Pantoprazole (Protonix Tab) 40 mg DAILY@06 PO Last administered on 01/02/17 06 :01; Admin Dose 40 MG; Start 12/27/16 at 06:00 Morphine Sulfate (morphine) 2 mg Q4H PRN IV PAIN LEVEL 6-10 Last administered on 01/02/17 10:46; Admin Dose 2 MG; Start 12/26/16 at 14:30 Diagnostic Test (Pha) (Accu-Chek) 1 ea 02 XX ; Start 12/27/16 at 02:00 Miscellaneous Information 1 ea NOTE XX ; Start 12/26/16 at 14:30 Glucose (Glutose) 15 gm Q15M PRN PO DECREASED GLUCOSE; Start 12/26/16 at 14:30 Glucose (Glutose) 22.5 gm Q15M PRN PO DECREASED GLUCOSE; Start 12/26/16 at 14:30 Dextrose (D50w Syringe) 25 ml Q15M PRN IV DECREASED GLUCOSE; Start 12/26/16 at 14:30 Dextrose (D50w Syringe) 50 ml Q15M PRN IV DECREASED GLUCOSE; Start 12/26/16 at 14:30 Glucagon (Glucagen) 1 mg Q15M PRN IM DECREASED GLUCOSE; Start 12/26/16 at 14:30 Glucose (Glutose) 15 gm Q15M PRN BUCCAL DECREASED GLUCOSE; Start 12/26/16 at 14: 30 Acetaminophen/ Hydrocodone Bitart ([place] (5/325)) 1 tab Q8 PO Last administered on 01/02/17 14:09; Admin Dose 1 TAB; Start 12/26/16 at 22:00 Cholecalciferol (Vitamin D) 1,000 unit DAILY PO Last administered on 01/02/17 10:14; Admin Dose 1,000 UNIT; Start 12/28/16 at 09:00 Insulin Glargine (Lantus) 7 unit DAILY@20 SC Last administered on 01/01/17 21: 12; Admin Dose 7 UNIT; Start 12/29/16 at 20:00 Ondansetron HCl (Zofran Inj) 4 mg Q6H PRN IV NAUSEA AND/OR VOMITING Last administered on 01/01/17 10:00; Admin Dose 4 MG; Start 01/01/17 at 10:00 RAMON KEMP MD Jan 02, 2017 16:51
--- NOTE | 2017-01-02 18:28 | PN ---
Date/Time of Note Date/Time of Note DATE: 01/02/17 TIME: 18:26 Assessment/Plan VTE Prophylaxis VTE Prophylaxis Intervention: other Lines/Catheters IV Catheter Type (from Nrs): Saline Lock Urinary Cath still in place: No Assessment/Plan Assessment/Plan - Non healing wounds BLE - per Dr. Valencia in vascular surgery consultation. Continue pain medication. Plan for limb amputation. - per ID - End-stage renal disease status post renal transplant. Continues CellCept and tacrolimus. - per nephro - Hyponatremia- per nephro - Hypertension. 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 - Anemia of chronic kidney disease. - Severe peripheral arterial disease. Further recommendations based on clinical course. Plan of care discussed with Dr. Cohen. Subjective 24 Hr Interval Summary Cardiovascular: no complaints Gastrointestinal: no complaints Genitourinary: no complaints Musculoskeletal: bone/joint pain Skin: no complaints Neurologic: no complaints Exam/Review of Systems Vital Signs Vitals Vital Signs Date Time Temp Pulse Resp B/P Pulse Ox O2 Delivery O2 Flow Rate FiO2 01/02/17 16:00 97.8 18 117/67 96 01/02/17 08:00 86 Intake and Output 01/01/17 01/01/17 01/02/17 15:00 23:00 07:00 Intake Total 450 ml 900 ml 400 ml Balance 450 ml 900 ml 400 ml Exam Constitutional: alert, oriented, well developed Respiratory: clear to auscultation, normal air movement Cardiovascular: nl pulses, regular rate and rhythm Gastrointestinal: non-tender, soft Musculoskeletal: other Neurological: nl mental status, nl speech Skin: rash or lesions Results Result Diagram: 01/01/17 0538 01/01/17 0538 Results 24 hrs Laboratory Tests Test 01/01/17 19:26 01/01/17 21:05 01/02/17 00:34 01/02/17 04:59 Creatine Kinase 57 43 45 Creatine Kinase Index 1.8 1.7 2.3 Creatinine Kinase MB (Mass) 1.04 0.72 1.02 Troponin I < 0.012 < 0.012 0.017 Bedside Glucose 134 Test 01/02/17 07:58 01/02/17 12:00 01/02/17 16:59 Bedside Glucose 105 94 126 Medications Medications Current Medications Aspirin (Halfprin) 81 mg DAILY PO Last administered on 01/02/17 10:12; Admin Dose 81 MG; Start 12/27/16 at 09:00 Benazepril HCl (Lotensin) 10 mg DAILY PO Last administered on 01/01/17 08:22; Admin Dose 10 MG; Start 12/27/16 at 09:00 Clopidogrel Bisulfate (plaVIX) 75 mg DAILY PO Last administered on 01/02/17 10 :13; Admin Dose 75 MG; Start 12/27/16 at 09:00 Diltiazem HCl (Cardizem Cd) 180 mg DAILY PO Last administered on 01/02/17 10: 12; Admin Dose 180 MG; Start 12/26/16 at 14:00 Doxycycline Hyclate (Vibramycin) 100 mg BID PO Last administered on 01/02/17 10:13; Admin Dose 100 MG; Start 12/26/16 at 21:00 Famotidine (Pepcid) 40 mg HS PO Last administered on 01/01/17 21:06; Admin Dose 40 MG; Start 12/26/16 at 21:00 Folic Acid (Folic Acid) 1 mg DAILY PO Last administered on 01/02/17 10:12; Admin Dose 1 MG; Start 12/27/16 at 09:00 Gabapentin (Neurontin) 100 mg TID PO Last administered on 01/02/17 12:02; Admin Dose 100 MG; Start 12/26/16 at 21:00 Metoprolol Tartrate (Lopressor) 75 mg BID PO Last administered on 01/02/17 10: 13; Admin Dose 75 MG; Start 12/26/16 at 21:00 Mycophenolate Mofetil (Cellcept) 1,000 mg BID PO Last administered on 10:12; Admin Dose 1,000 MG; Start 12/26/16 at 21:00 Tacrolimus (Prograf) 2 mg Q12 PO Last administered on 01/02/17 10:13; Admin Dose 2 MG; Start 12/26/16 at 21:00 Pantoprazole (Protonix Tab) 40 mg DAILY@06 PO Last administered on 01/02/17 06 :01; Admin Dose 40 MG; Start 12/27/16 at 06:00 Morphine Sulfate (morphine) 2 mg Q4H PRN IV PAIN LEVEL 6-10 Last administered on 9/14/17at 10:46; Admin Dose 2 MG; Start 12/26/16 at 14:30 Diagnostic Test (Pha) (Accu-Chek) 1 ea 02 XX ; Start 12/27/16 at 02:00 Miscellaneous Information 1 ea NOTE XX ; Start 12/26/16 at 14:30 Glucose (Glutose) 15 gm Q15M PRN PO DECREASED GLUCOSE; Start 12/26/16 at 14:30 Glucose (Glutose) 22.5 gm Q15M PRN PO DECREASED GLUCOSE; Start 12/26/16 at 14:30 Dextrose (D50w Syringe) 25 ml Q15M PRN IV DECREASED GLUCOSE; Start 12/26/16 at 14:30 Dextrose (D50w Syringe) 50 ml Q15M PRN IV DECREASED GLUCOSE; Start 12/26/16 at 14:30 Glucagon (Glucagen) 1 mg Q15M PRN IM DECREASED GLUCOSE; Start 12/26/16 at 14:30 Glucose (Glutose) 15 gm Q15M PRN BUCCAL DECREASED GLUCOSE; Start 12/26/16 at 14: 30 Acetaminophen/ Hydrocodone Bitart ([place] (5/325)) 1 tab Q8 PO Last administered on 01/02/17 14:09; Admin Dose 1 TAB; Start 12/26/16 at 22:00 Cholecalciferol (Vitamin D) 1,000 unit DAILY PO Last administered on 01/02/17 10:14; Admin Dose 1,000 UNIT; Start 12/28/16 at 09:00 Insulin Glargine (Lantus) 7 unit DAILY@20 SC Last administered on 01/01/17 21: 12; Admin Dose 7 UNIT; Start 12/29/16 at 20:00 Ondansetron HCl (Zofran Inj) 4 mg Q6H PRN IV NAUSEA AND/OR VOMITING Last administered on 01/01/17 10:00; Admin Dose 4 MG; Start 01/01/17 at 10:00 TIM BENNETT Jan 02, 2017 18:28
[2017-01-02] MEDS: INSULIN GLARGINE [LANtus] 3 ML PEN SC SCH (20:19)
[2017-01-02] MEDS: FAMOTIDINE 20 MG TAB PO SCH (20:20)
[2017-01-02 21:05] VITALS: BP 170/84; RESP 18
[2017-01-02 23:17] VITALS: BP 147/77; PULSE 61
[2017-01-03] MEDS: ACCU-CHEK XX SCH (02:00)
[2017-01-03] MEDS: morphine 2 MG INJ IV PRN ×3 (02:25→20:25)
[2017-01-03 02:39] VITALS: BP 128/68; RESP 16
[2017-01-03] MEDS: PANTOPRAZOLE (EC) 40 MG TAB PO SCH (05:28)
[2017-01-03] MEDS: HYDROCODONE/APAP (5/325) TAB PO SCH ×3 (05:29→22:35)
[2017-01-03 05:59] LABS: BASOPHILS % 0.2 % (0.0-2.0); EOSINOPHILS # 0.1 10^3/ul (0.0-0.5); EOSINOPHILS % 0.9 % (0.0-7.0); HEMOGLOBIN 10.9 g/dl (12.0-16.0); LYMPHOCYTES # 1.6 10^3/ul (0.8-2.9); LYMPHOCYTES % 16.2 % (15.0-51.0); MEAN CORPUSCULAR HEMOGLOBIN 27.5 pg (29.0-33.0); MEAN CORPUSCULAR HGB CONC 32.1 g/dl (32.0-37.0); MEAN CORPUSCULAR VOLUME 85.6 fl (82.0-101.0); MEAN PLATELET VOLUME 12.5 fl (7.4-10.4); MONOCYTE # 1.1 10^3/ul (0.3-0.9); MONOCYTES % 11.2 % (0.0-11.0); NEUTROPHILS % 71.3 % (39.0-77.0); PLATELET COUNT 175 10^3/UL (140-415); RED BLOOD COUNT 3.97 10^6/ul (4.20-5.40); RED CELL DISTRIBUTION WIDTH 13.8 % (11.5-14.5); WHITE BLOOD COUNT 9.8 10^3/ul (4.8-10.8)
[2017-01-03 06:20] LABS: CREATININE 0.73 mg/dl (0.44-1.00); POTASSIUM 4.4 mmol/L (3.5-5.1)
[2017-01-03 08:00] VITALS: BP 142/75; RESP 20
[2017-01-03] MEDS: INSULIN ASPART [NOVOLOG] 3 ML PEN SC SCH ×4 (08:00→20:31)
[2017-01-03] MEDS: CLOPIDOGREL 75 MG TAB PO SCH (08:34)
[2017-01-03] MEDS: CHOLECALCIFEROL 1,000 UNIT TAB PO SCH (08:34)
[2017-01-03] MEDS: TACROLIMUS 1 MG CAP PO SCH ×2 (08:34→20:31)
[2017-01-03] MEDS: BENAZEPRIL 10 MG TAB PO SCH (08:34)
[2017-01-03] MEDS: DOXYCYCLINE 100 MG TAB PO SCH ×2 (08:35→20:31)
[2017-01-03] MEDS: ASPIRIN (EC) 81 MG TAB PO SCH (08:35)
[2017-01-03] MEDS: DILTIAZEM (CD) 180 MG CAP PO SCH (08:35)
[2017-01-03] MEDS: MYCOPHENOLATE 250 MG CAP PO SCH ×2 (08:35→20:30)
[2017-01-03] MEDS: FOLIC ACID 1 MG TAB PO SCH (08:35)
[2017-01-03] MEDS: GABAPENTIN 100 MG CAP PO SCH ×3 (08:36→20:31)
[2017-01-03] MEDS: METOPROLOL 25 MG TAB PO SCH ×2 (08:36→21:40)
--- NOTE | 2017-01-03 12:09 | PDOCDIS ---
Discharge Instructions CONDITION Patient Condition: Fair HOME CARE INSTRUCTIONS: Diet Instructions: Special Diet: renal 1800 ada ACTIVITY: Activity Restrictions: Slowly Increase Activity Rest between Activity Avoid heavy lifting Do not operate Machinery Do not operate Power Tool Avoid Heavy Housework FOLLOW UP/APPOINTMENTS Follow-up Plan FU with Primary MD X 1 WEEK FU with vascular surgery as recommended Call 911 or go to the nearest hospital if symptoms get worse. Patient/friend verbalized understanding dc instructions Dw Dr mantilla/staff TIM BENNETT Jan 03, 2017 12:09
--- NOTE | 2017-01-03 12:26 | PN ---
Date/Time of Note Date/Time of Note DATE: 01/03/17 TIME: 12:21 Assessment/Plan VTE Prophylaxis VTE Prophylaxis Intervention: other Lines/Catheters IV Catheter Type (from Nrs): Sal[facility] Lock Urinary Cath still in place: No Assessment/Plan Assessment/Plan - Non healing wounds BLE - per Dr. Valencia in vascular surgery consultation. Continue pain medication. Plan for limb amputation. - per ID - End-stage renal disease status post renal transplant. Continues CellCept and tacrolimus. - per nephro - Hyponatremia- per nephro - Hypertension. 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 - Anemia of chronic kidney disease. - Severe peripheral arterial disease. Plan for Home Health for wound care. Further recommendations based on clinical course. Plan of care discussed with Dr. Cohen. Subjective 24 Hr Interval Summary Respiratory: no complaints Cardiovascular: no complaints Gastrointestinal: no complaints Genitourinary: no complaints Musculoskeletal: no complaints Skin: skin lesions Exam/Review of Systems Vital Signs Vitals Vital Signs Date Time Temp Pulse Resp B/P Pulse Ox O2 Delivery O2 Flow Rate FiO2 01/03/17 08:00 97.9 72 20 142/75 93 Intake and Output 01/02/17 01/02/17 01/03/17 15:00 23:00 07:00 Intake Total 720 ml 480 ml Balance 720 ml 480 ml Exam Constitutional: alert, oriented Psych: nl mood/affect Respiratory: clear to auscultation, normal air movement Cardiovascular: nl pulses, regular rate and rhythm Gastrointestinal: non-tender, soft Musculoskeletal: nl extremities to inspection Extremities: normal pulses Neurological: nl mental status, nl speech Skin: rash or lesions Results Result Diagram: 01/03/17 0437 01/03/17 0437 Results 24 hrs Laboratory Tests Test 01/02/17 16:59 01/02/17 20:16 01/03/17 04:37 01/03/17 08:10 Bedside Glucose 126 123 101 White Blood Count 9.8 Red Blood Count 3.97 L Hemoglobin 10.9 L Hematocrit 34.0 L Mean Corpuscular Volume 85.6 Mean Corpuscular Hemoglobin 27.5 L Mean Corpuscular Hemoglobin Concent 32.1 Red Cell Distribution Width 13.8 Platelet Count 175 Mean Platelet Volume 12.5 H Neutrophils % 71.3 Lymphocytes % 16.2 Monocytes % 11.2 H Eosinophils % 0.9 Basophils % 0.2 Nucleated Red Blood Cells % 0.0 Neutrophils # 7.0 Lymphocytes # 1.6 Monocytes # 1.1 H Eosinophils # 0.1 Basophils # 0.0 Nucleated Red Blood Cells # 0.0 Sodium Level 132 L Potassium Level 4.4 Chloride Level 101 Carbon Dioxide Level 25 Anion Gap 10 Blood Urea Nitrogen 16 Creatinine 0.73 Glucose Level 94 Calcium Level 10.0 Test 01/03/17 11:57 Bedside Glucose 114 Medications Medications Current Medications Aspirin (Halfprin) 81 mg DAILY PO Last administered on 01/03/17 08:35; Admin Dose 81 MG; Start 12/27/16 at 09:00 Benazepril HCl (Lotensin) 10 mg DAILY PO Last administered on 01/03/17 08:34; Admin Dose 10 MG; Start 12/27/16 at 09:00 Clopidogrel Bisulfate (plaVIX) 75 mg DAILY PO Last administered on 01/03/17 08 :34; Admin Dose 75 MG; Start 12/27/16 at 09:00 Diltiazem HCl (Cardizem Cd) 180 mg DAILY PO Last administered on 01/03/17 08: 35; Admin Dose 180 MG; Start 12/26/16 at 14:00 Doxycycline Hyclate (Vibramycin) 100 mg BID PO Last administered on 01/03/17 08:35; Admin Dose 100 MG; Start 12/26/16 at 21:00 Famotidine (Pepcid) 40 mg HS PO Last administered on 01/02/17 20:20; Admin Dose 40 MG; Start 12/26/16 at 21:00 Folic Acid (Folic Acid) 1 mg DAILY PO Last administered on 01/03/17 08:35; Admin Dose 1 MG; Start 12/27/16 at 09:00 Gabapentin (Neurontin) 100 mg TID PO Last administered on 01/03/17 08:36; Admin Dose 100 MG; Start 12/26/16 at 21:00 Metoprolol Tartrate (Lopressor) 75 mg BID PO Last administered on 01/03/17 08: 36; Admin Dose 75 MG; Start 12/26/16 at 21:00 Mycophenolate Mofetil (Cellcept) 1,000 mg BID PO Last administered on 08:35; Admin Dose 1,000 MG; Start 12/26/16 at 21:00 Tacrolimus (Prograf) 2 mg Q12 PO Last administered on 01/03/17 08:34; Admin Dose 2 MG; Start 12/26/16 at 21:00 Pantoprazole (Protonix Tab) 40 mg DAILY@06 PO Last administered on 01/03/17 05 :28; Admin Dose 40 MG; Start 12/27/16 at 06:00 Morphine Sulfate (morphine) 2 mg Q4H PRN IV PAIN LEVEL 6-10 Last administered on 01/03/17 11:29; Admin Dose 2 MG; Start 12/26/16 at 14:30 Diagnostic Test (Pha) (Accu-Chek) 1 ea 02 XX ; Start 12/27/16 at 02:00 Miscellaneous Information 1 ea NOTE XX ; Start 12/26/16 at 14:30 Glucose (Glutose) 15 gm Q15M PRN PO DECREASED GLUCOSE; Start 12/26/16 at 14:30 Glucose (Glutose) 22.5 gm Q15M PRN PO DECREASED GLUCOSE; Start 12/26/16 at 14:30 Dextrose (D50w Syringe) 25 ml Q15M PRN IV DECREASED GLUCOSE; Start 12/26/16 at 14:30 Dextrose (D50w Syringe) 50 ml Q15M PRN IV DECREASED GLUCOSE; Start 12/26/16 at 14:30 Glucagon (Glucagen) 1 mg Q15M PRN IM DECREASED GLUCOSE; Start 12/26/16 at 14:30 Glucose (Glutose) 15 gm Q15M PRN BUCCAL DECREASED GLUCOSE; Start 12/26/16 at 14: 30 Acetaminophen/ Hydrocodone Bitart ([place] (5/325)) 1 tab Q8 PO Last administered on 01/03/17 05:29; Admin Dose 1 TAB; Start 12/26/16 at 22:00 Cholecalciferol (Vitamin D) 1,000 unit DAILY PO Last administered on 01/03/17 08:34; Admin Dose 1,000 UNIT; Start 12/28/16 at 09:00 Insulin Glargine (Lantus) 7 unit DAILY@20 SC Last administered on 01/02/17 20: 19; Admin Dose 7 UNIT; Start 12/29/16 at 20:00 Ondansetron HCl (Zofran Inj) 4 mg Q6H PRN IV NAUSEA AND/OR VOMITING Last administered on 01/01/17t 10:00; Admin Dose 4 MG; Start 01/01/17 at 10:00 TIM BENNETT Jan 03, 2017 12:26
[2017-01-03] MEDS ORDERED: HYDR-3498 PO (12:31)
[2017-01-03 14:00] VITALS: BP 157/75; RESP 18
--- NOTE | 2017-01-03 14:46 | CONS ---
Date/Time of Note Date/Time of Note DATE: 01/03/17 TIME: 14:44 Assessment/Plan Assessment/Plan Additional Assessment/Plan 1.[id number] test 10/2016 with no ischemia/only scar/NL EF. Negative trop x 3. Patient is ok to proceed to OR at moderate risk without further noninvasive evaluation on current medications - now on ASA/plavix, stable 2.HTN - modest Rx, will monitpr now 3.PAD with bilateral gangrene - post op, vascular team follows 4.DM - con't to keep euglycemic. 5.Anemia- H/H stable - no bleed now. Consultation Date/Type/Reason Admit Date/Time Dec 26, 2016 at 13:22 Initial Consult Date 12/27/16 Type of Consultation: NEPHROLOGY Referring Provider: KRISTIN HALL MD 24 HR Interval Summary Free Text/Dictation NO acute events - BP in god range - no CP - doubt ischemia - con't pain Rx ROS: No fever, no chills, no nausea, no vomiting, no diarrhea/constipation No recent weight changes No chest pain, no PND, no orthopnea No dizziness, blurred vision No thirst, no heat or cold intolerance Exam/Review of Systems Vital Signs Vitals Vital Signs Date Time Temp Pulse Resp B/P Pulse Ox O2 Delivery O2 Flow Rate FiO2 01/03/17 08:00 97.9 72 20 142/75 93 Intake and Output 01/02/17 01/02/17 01/03/17 15:00 23:00 07:00 Intake Total 720 ml 480 ml Balance 720 ml 480 ml Exam General: WN/WD/NAD, AOx 3 HEENT: Unicetric/atraumatic/EOMI (ollow commands) NECK: JVD elevated, no thyromegaly Lymph: no lymphadenopathy HEART: regular with no S3, II/ systolic murmur at apex LUNGS: Coarse sounds ABD: soft, NT, ND, +BS : Intact Neuro: non focal SKIN: chronic changes EXT: trace edema, post amputation Results Result Diagram: 01/03/17 0437 01/03/17 0437 Results 24 hrs Laboratory Tests Test 01/02/17 16:59 01/02/17 20:16 01/03/17 04:37 01/03/17 08:10 Bedside Glucose 126 123 101 White Blood Count 9.8 Red Blood Count 3.97 L Hemoglobin 10.9 L Hematocrit 34.0 L Mean Corpuscular Volume 85.6 Mean Corpuscular Hemoglobin 27.5 L Mean Corpuscular Hemoglobin Concent 32.1 Red Cell Distribution Width 13.8 Platelet Count 175 Mean Platelet Volume 12.5 H Neutrophils % 71.3 Lymphocytes % 16.2 Monocytes % 11.2 H Eosinophils % 0.9 Basophils % 0.2 Nucleated Red Blood Cells % 0.0 Neutrophils # 7.0 Lymphocytes # 1.6 Monocytes # 1.1 H Eosinophils # 0.1 Basophils # 0.0 Nucleated Red Blood Cells # 0.0 Sodium Level 132 L Potassium Level 4.4 Chloride Level 101 Carbon Dioxide Level 25 Anion Gap 10 Blood Urea Nitrogen 16 Creatinine 0.73 Glucose Level 94 Calcium Level 10.0 Test 01/03/17 11:57 Bedside Glucose 114 Medications Medications Current Medications Aspirin (Halfprin) 81 mg DAILY PO Last administered on 01/03/17 08:35; Admin Dose 81 MG; Start 12/27/16 at 09:00 Benazepril HCl (Lotensin) 10 mg DAILY PO Last administered on 01/03/17 08:34; Admin Dose 10 MG; Start 12/27/16 at 09:00 Clopidogrel Bisulfate (plaVIX) 75 mg DAILY PO Last administered on 01/03/17 08 :34; Admin Dose 75 MG; Start 12/27/16 at 09:00 Diltiazem HCl (Cardizem Cd) 180 mg DAILY PO Last administered on 01/03/17 08: 35; Admin Dose 180 MG; Start 12/26/16 at 14:00 Doxycycline Hyclate (Vibramycin) 100 mg BID PO Last administered on 01/03/17 08:35; Admin Dose 100 MG; Start 12/26/16 at 21:00 Famotidine (Pepcid) 40 mg HS PO Last administered on 01/02/17 20:20; Admin Dose 40 MG; Start 12/26/16 at 21:00 Folic Acid (Folic Acid) 1 mg DAILY PO Last administered on 01/03/17 08:35; Admin Dose 1 MG; Start 12/27/16 at 09:00 Gabapentin (Neurontin) 100 mg TID PO Last administered on 01/03/17 14:20; Admin Dose 100 MG; Start 12/26/16 at 21:00 Metoprolol Tartrate (Lopressor) 75 mg BID PO Last administered on 01/03/17 08: 36; Admin Dose 75 MG; Start 12/26/16 at 21:00 Mycophenolate Mofetil (Cellcept) 1,000 mg BID PO Last administered on 08:35; Admin Dose 1,000 MG; Start 12/26/16 at 21:00 Tacrolimus (Prograf) 2 mg Q12 PO Last administered on 01/03/17 08:34; Admin Dose 2 MG; Start 12/26/16 at 21:00 Pantoprazole (Protonix Tab) 40 mg DAILY@06 PO Last administered on 01/03/17 05 :28; Admin Dose 40 MG; Start 12/27/16 at 06:00 Morphine Sulfate (morphine) 2 mg Q4H PRN IV PAIN LEVEL 6-10 Last administered on 01/03/17 11:29; Admin Dose 2 MG; Start 12/26/16 at 14:30 Diagnostic Test (Pha) (Accu-Chek) 1 ea 02 XX ; Start 12/27/16 at 02:00 Miscellaneous Information 1 ea NOTE XX ; Start 12/26/16 at 14:30 Glucose (Glutose) 15 gm Q15M PRN PO DECREASED GLUCOSE; Start 12/26/16 at 14:30 Glucose (Glutose) 22.5 gm Q15M PRN PO DECREASED GLUCOSE; Start 12/26/16 at 14:30 Dextrose (D50w Syringe) 25 ml Q15M PRN IV DECREASED GLUCOSE; Start 12/26/16 at 14:30 Dextrose (D50w Syringe) 50 ml Q15M PRN IV DECREASED GLUCOSE; Start 12/26/16 at 14:30 Glucagon (Glucagen) 1 mg Q15M PRN IM DECREASED GLUCOSE; Start 12/26/16 at 14:30 Glucose (Glutose) 15 gm Q15M PRN BUCCAL DECREASED GLUCOSE; Start 12/26/16 at 14: 30 Acetaminophen/ Hydrocodone Bitart ([place] (5/325)) 1 tab Q8 PO Last administered on 01/03/17 14:20; Admin Dose 1 TAB; Start 12/26/16 at 22:00 Cholecalciferol (Vitamin D) 1,000 unit DAILY PO Last administered on 01/03/17 08:34; Admin Dose 1,000 UNIT; Start 12/28/16 at 09:00 Insulin Glargine (Lantus) 7 unit DAILY@20 SC Last administered on 01/02/17 20: 19; Admin Dose 7 UNIT; Start 12/29/16 at 20:00 Ondansetron HCl (Zofran Inj) 4 mg Q6H PRN IV NAUSEA AND/OR VOMITING Last administered on 01/01/17 10:00; Admin Dose 4 MG; Start 01/01/17 at 10:00 MIRELLA MOSER MD Jan 03, 2017 14:46
--- NOTE | 2017-01-03 15:58 | CONS ---
Date/Time of Note Date/Time of Note DATE: 01/03/17 TIME: 15:57 Assessment/Plan Assessment/Plan Additional Assessment/Plan 1. 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 h/o donor kidney transplant in 2009 at [facility], currently on immunosuppression with Prograf, CellCept 4. 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 History of hypertension. 6. History of diabetes mellitus. 7. History of previous left upper extremity arteriovenous fistula. 8. Hyponatremia due to hypovolemic hyponatremia Plan: continue Current immunosuppression Prograf and cellcept, Cr normal, Na 132- will monitor off IVF< if Na drops then we will start NS IV abx as per ID Renal function currently has been stable surgery plan as per surgeon Consultation Date/Type/Reason Admit Date/Time Dec 26, 2016 at 13:22 Initial Consult Date 12/27/16 Type of Consultation: NEPHROLOGY Referring Provider: KRISTIN HALL MD Exam/Review of Systems Vital Signs Vitals Vital Signs Date Time Temp Pulse Resp B/P Pulse Ox O2 Delivery O2 Flow Rate FiO2 01/03/17 14:00 98.6 88 18 157/75 98 Intake and Output 01/02/17 01/02/17 01/03/17 15:00 23:00 07:00 Intake Total 720 ml 480 ml Balance 720 ml 480 ml Exam Constitutional: alert Respiratory: clear to auscultation, diminished breath sounds, normal air movement Cardiovascular: nl pulses, regular rate and rhythm Gastrointestinal: non-tender, soft Extremities: normal pulses, other (Bilateral LE gangrene ) Neurological: [employer]ING [employer] II-XII intact, nl mental status, nl speech, nl strength Results Result Diagram: 01/03/17 0437 01/03/17 0437 Results 24 hrs Laboratory Tests Test 01/02/17 16:59 01/02/17 20:16 01/03/17 04:37 01/03/17 08:10 Bedside Glucose 126 123 101 White Blood Count 9.8 Red Blood Count 3.97 L Hemoglobin 10.9 L Hematocrit 34.0 L Mean Corpuscular Volume 85.6 Mean Corpuscular Hemoglobin 27.5 L Mean Corpuscular Hemoglobin Concent 32.1 Red Cell Distribution Width 13.8 Platelet Count 175 Mean Platelet Volume 12.5 H Neutrophils % 71.3 Lymphocytes % 16.2 Monocytes % 11.2 H Eosinophils % 0.9 Basophils % 0.2 Nucleated Red Blood Cells % 0.0 Neutrophils # 7.0 Lymphocytes # 1.6 Monocytes # 1.1 H Eosinophils # 0.1 Basophils # 0.0 Nucleated Red Blood Cells # 0.0 Sodium Level 132 L Potassium Level 4.4 Chloride Level 101 Carbon Dioxide Level 25 Anion Gap 10 Blood Urea Nitrogen 16 Creatinine 0.73 Glucose Level 94 Calcium Level 10.0 Test 01/03/17 11:57 Bedside Glucose 114 Medications Medications Current Medications Aspirin (Halfprin) 81 mg DAILY PO Last administered on 01/03/17 08:35; Admin Dose 81 MG; Start 12/27/16 at 09:00 Benazepril HCl (Lotensin) 10 mg DAILY PO Last administered on 01/03/17 08:34; Admin Dose 10 MG; Start 12/27/16 at 09:00 Clopidogrel Bisulfate (plaVIX) 75 mg DAILY PO Last administered on 01/03/17 08 :34; Admin Dose 75 MG; Start 12/27/16 at 09:00 Diltiazem HCl (Cardizem Cd) 180 mg DAILY PO Last administered on 01/03/17 08: 35; Admin Dose 180 MG; Start 12/26/16 at 14:00 Doxycycline Hyclate (Vibramycin) 100 mg BID PO Last administered on 01/03/17 08:35; Admin Dose 100 MG; Start 12/26/16 at 21:00 Famotidine (Pepcid) 40 mg HS PO Last administered on 01/02/17 20:20; Admin Dose 40 MG; Start 12/26/16 at 21:00 Folic Acid (Folic Acid) 1 mg DAILY PO Last administered on 01/03/17 08:35; Admin Dose 1 MG; Start 12/27/16 at 09:00 Gabapentin (Neurontin) 100 mg TID PO Last administered on 01/03/17 14:20; Admin Dose 100 MG; Start 12/26/16 at 21:00 Metoprolol Tartrate (Lopressor) 75 mg BID PO Last administered on 01/03/17 08: 36; Admin Dose 75 MG; Start 12/26/16 at 21:00 Mycophenolate Mofetil (Cellcept) 1,000 mg BID PO Last administered on 08:35; Admin Dose 1,000 MG; Start 12/26/16 at 21:00 Tacrolimus (Prograf) 2 mg Q12 PO Last administered on 01/03/17 08:34; Admin Dose 2 MG; Start 12/26/16 at 21:00 Pantoprazole (Protonix Tab) 40 mg DAILY@06 PO Last administered on 01/03/17 05 :28; Admin Dose 40 MG; Start 12/27/16 at 06:00 Morphine Sulfate (morphine) 2 mg Q4H PRN IV PAIN LEVEL 6-10 Last administered on 01/03/17 11:29; Admin Dose 2 MG; Start 12/26/16 at 14:30 Diagnostic Test (Pha) (Accu-Chek) 1 ea 02 XX ; Start 12/27/16 at 02:00 Miscellaneous Information 1 ea NOTE XX ; Start 12/26/16 at 14:30 Glucose (Glutose) 15 gm Q15M PRN PO DECREASED GLUCOSE; Start 12/26/16 at 14:30 Glucose (Glutose) 22.5 gm Q15M PRN PO DECREASED GLUCOSE; Start 12/26/16 at 14:30 Dextrose (D50w Syringe) 25 ml Q15M PRN IV DECREASED GLUCOSE; Start 12/26/16 at 14:30 Dextrose (D50w Syringe) 50 ml Q15M PRN IV DECREASED GLUCOSE; Start 12/26/16 at 14:30 Glucagon (Glucagen) 1 mg Q15M PRN IM DECREASED GLUCOSE; Start 12/26/16 at 14:30 Glucose (Glutose) 15 gm Q15M PRN BUCCAL DECREASED GLUCOSE; Start 12/26/16 at 14: 30 Acetaminophen/ Hydrocodone Bitart ([place] (5/325)) 1 tab Q8 PO Last administered on 01/03/17 14:20; Admin Dose 1 TAB; Start 12/26/16 at 22:00 Cholecalciferol (Vitamin D) 1,000 unit DAILY PO Last administered on 01/03/17 08:34; Admin Dose 1,000 UNIT; Start 12/28/16 at 09:00 Insulin Glargine (Lantus) 7 unit DAILY@20 SC Last administered on 01/02/17 20: 19; Admin Dose 7 UNIT; Start 12/29/16 at 20:00 Ondansetron HCl (Zofran Inj) 4 mg Q6H PRN IV NAUSEA AND/OR VOMITING Last administered on 01/01/17t 10:00; Admin Dose 4 MG; Start 01/01/17 at 10:00 RAMON KEMP MD Jan 03, 2017 15:58
[2017-01-03 20:26] VITALS: BP 132/86; RESP 18
[2017-01-03] MEDS: INSULIN GLARGINE [LANtus] 3 ML PEN SC SCH (20:33)
[2017-01-03 21:38] VITALS: BP 149/83; PULSE 85
[2017-01-03] MEDS: FAMOTIDINE 20 MG TAB PO SCH (21:40)
[2017-01-03 22:31] VITALS: BP 135/83; PULSE 87
[2017-01-04] MEDS: ACCU-CHEK XX SCH (01:49)
--- NOTE | 2017-01-04 01:53 | PN ---
DATE: 01/03/2017 SUBJECTIVE DATA: No events overnight. The patient is awake, looks comfortable. Family at bedside. She is afebrile. LABORATORY AND DIAGNOSTIC DATA: WBC 9.8. No shift. No bands. BUN 16 and creatinine 0.73. ANTIMICROBIALS: The patient remains on doxycycline. PHYSICAL EXAMINATION: This is a fragile, well-developed, elderly woman, who is alert, in no distress. HEENT: Head is atraumatic and normocephalic. Sclerae are anicteric. Buccal mucosa is pink. NECK: Supple. LUNGS: Chest rise is symmetrical. Breath sounds are clear. HEART: S1, S2. ABDOMEN: Soft. Bowel sounds are present. EXTREMITIES: With bilateral foot gangrene. There is an open wound next to her little finger on the right with some drainage. ASSESSMENT: 1. Bilateral lower extremities gangrene secondary to severe peripheral arterial disease, failed debridement and revascularization procedures. 2. Diabetes. 3. History of kidney transplant in 2009, on immunosuppressive therapy. 4. Diabetes. 5. Hypertension. PLAN: The patient remains clinically unchanged. As per vascular note, the patient will require bilateral BKA or AKA. However, the patient refused at the present time. She is clinically stable and nonseptic. We will send a drainage from her right foot wound for culture. We will keep her on doxycycline for now; adjust once culture is back. Discussed case with Dr. Valencia. Dictated By: Brittany De NP /santiago/galileo /Document#: [id number]
[2017-01-04] MEDS: morphine 2 MG INJ IV PRN ×4 (02:20→20:46)
[2017-01-04 03:09] VITALS: BP 140/91; RESP 18
[2017-01-04 05:14] VITALS: BP 141/74; PULSE 78
[2017-01-04] MEDS: HYDROCODONE/APAP (5/325) TAB PO SCH ×3 (05:16→22:53)
[2017-01-04] MEDS: PANTOPRAZOLE (EC) 40 MG TAB PO SCH (05:16)
[2017-01-04] MEDS: INSULIN ASPART [NOVOLOG] 3 ML PEN SC SCH ×4 (08:00→21:00)
[2017-01-04 08:07] VITALS: BP 127/65; RESP 18
[2017-01-04] MEDS: MYCOPHENOLATE 250 MG CAP PO SCH ×2 (08:30→20:50)
[2017-01-04] MEDS: DOXYCYCLINE 100 MG TAB PO SCH ×2 (08:30→20:51)
[2017-01-04] MEDS: GABAPENTIN 100 MG CAP PO SCH ×3 (08:30→20:53)
[2017-01-04] MEDS: CLOPIDOGREL 75 MG TAB PO SCH (08:30)
[2017-01-04] MEDS: FOLIC ACID 1 MG TAB PO SCH (08:31)
[2017-01-04] MEDS: BENAZEPRIL 10 MG TAB PO SCH (08:31)
[2017-01-04] MEDS: ASPIRIN (EC) 81 MG TAB PO SCH (08:31)
[2017-01-04] MEDS: TACROLIMUS 1 MG CAP PO SCH ×2 (08:31→20:51)
[2017-01-04] MEDS: CHOLECALCIFEROL 1,000 UNIT TAB PO SCH (08:31)
[2017-01-04] MEDS: METOPROLOL 25 MG TAB PO SCH ×2 (08:31→20:58)
[2017-01-04] MEDS: DILTIAZEM (CD) 180 MG CAP PO SCH (08:32)
--- NOTE | 2017-01-04 13:04 | PN ---
Date/Time of Note Date/Time of Note DATE: 01/04/17 TIME: 13:03 Assessment/Plan VTE Prophylaxis VTE Prophylaxis Intervention: other Lines/Catheters [facility] Peripheral IV Urinary Cath still in place: No Assessment/Plan Chief Complaint/Hosp Course - Non healing wounds BLE - per Dr. Valencia in vascular surgery consultation. Continue pain medication. Plan for limb amputation. - per ID - End-stage renal disease status post renal transplant. Continues CellCept and tacrolimus. - per nephro - Hyponatremia- per nephro - Hypertension. 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 - Anemia of chronic kidney disease. - Severe peripheral arterial disease. Problems: Subjective 24 Hr Interval Summary Free Text/Dictation Patient complain of pain in legs Exam/Review of Systems Vital Signs Vitals Vital Signs Date Time Temp Pulse Resp B/P Pulse Ox O2 Delivery O2 Flow Rate FiO2 01/04/17 08:07 98.1 74 18 127/65 100 Intake and Output 01/03/17 01/03/17 01/04/17 15:00 23:00 07:00 Intake Total 660 ml 340 ml Balance 660 ml 340 ml Exam Constitutional: well developed Head: atraumatic, normocephalic Neck: supple Respiratory: diminished breath sounds Cardiovascular: regular rate and rhythm Gastrointestinal: non-tender, soft Extremities: normal pulses Results Result Diagram: 01/03/17 0437 01/03/17 0437 Results 24 hrs Laboratory Tests Test 01/03/17 17:32 01/03/17 20:29 01/04/17 08:22 01/04/17 11:47 Bedside Glucose 100 130 91 119 Medications Medications Current Medications Aspirin (Halfprin) 81 mg DAILY PO Last administered on 01/04/17 08:31; Admin Dose 81 MG; Start 12/27/16 at 09:00 Benazepril HCl (Lotensin) 10 mg DAILY PO Last administered on 01/04/17 08:31; Admin Dose 10 MG; Start 12/27/16 at 09:00 Clopidogrel Bisulfate (plaVIX) 75 mg DAILY PO Last administered on 01/04/17 08 :30; Admin Dose 75 MG; Start 12/27/16 at 09:00 Diltiazem HCl (Cardizem Cd) 180 mg DAILY PO Last administered on 01/04/17 08: 32; Admin Dose 180 MG; Start 12/26/16 at 14:00 Doxycycline Hyclate (Vibramycin) 100 mg BID PO Last administered on 01/04/17 08:30; Admin Dose 100 MG; Start 12/26/16 at 21:00 Famotidine (Pepcid) 40 mg HS PO Last administered on 01/03/17 21:40; Admin Dose 40 MG; Start 12/26/16 at 21:00 Folic Acid (Folic Acid) 1 mg DAILY PO Last administered on 01/04/17 08:31; Admin Dose 1 MG; Start 12/27/16 at 09:00 Gabapentin (Neurontin) 100 mg TID PO Last administered on 01/04/17 08:30; Admin Dose 100 MG; Start 12/26/16 at 21:00 Metoprolol Tartrate (Lopressor) 75 mg BID PO Last administered on 01/04/17 08: 31; Admin Dose 75 MG; Start 12/26/16 at 21:00 Mycophenolate Mofetil (Cellcept) 1,000 mg BID PO Last administered on 08:30; Admin Dose 1,000 MG; Start 12/26/16 at 21:00 Tacrolimus (Prograf) 2 mg Q12 PO Last administered on 01/04/17 08:31; Admin Dose 2 MG; Start 12/26/16 at 21:00 Pantoprazole (Protonix Tab) 40 mg DAILY@06 PO Last administered on 01/04/17 05 :16; Admin Dose 40 MG; Start 12/27/16 at 06:00 Morphine Sulfate (morphine) 2 mg Q4H PRN IV PAIN LEVEL 6-10 Last administered on 01/04/17 08:32; Admin Dose 2 MG; Start 12/26/16 at 14:30 Diagnostic Test (Pha) (Accu-Chek) 1 ea 02 XX ; Start 12/27/16 at 02:00 Miscellaneous Information 1 ea NOTE XX ; Start 12/26/16 at 14:30 Glucose (Glutose) 15 gm Q15M PRN PO DECREASED GLUCOSE; Start 12/26/16 at 14:30 Glucose (Glutose) 22.5 gm Q15M PRN PO DECREASED GLUCOSE; Start 12/26/16 at 14:30 Dextrose (D50w Syringe) 25 ml Q15M PRN IV DECREASED GLUCOSE; Start 12/26/16 at 14:30 Dextrose (D50w Syringe) 50 ml Q15M PRN IV DECREASED GLUCOSE; Start 12/26/16 at 14:30 Glucagon (Glucagen) 1 mg Q15M PRN IM DECREASED GLUCOSE; Start 12/26/16 at 14:30 Glucose (Glutose) 15 gm Q15M PRN BUCCAL DECREASED GLUCOSE; Start 12/26/16 at 14: 30 Acetaminophen/ Hydrocodone Bitart ([place] (5/325)) 1 tab Q8 PO Last administered on 01/04/17 05:16; Admin Dose 1 TAB; Start 12/26/16 at 22:00 Cholecalciferol (Vitamin D) 1,000 unit DAILY PO Last administered on 01/04/17 08:31; Admin Dose 1,000 UNIT; Start 12/28/16 at 09:00 Insulin Glargine (Lantus) 7 unit DAILY@20 SC Last administered on 01/03/17 20: 33; Admin Dose 7 UNIT; Start 12/29/16 at 20:00 Ondansetron HCl (Zofran Inj) 4 mg Q6H PRN IV NAUSEA AND/OR VOMITING Last administered on 01/01/17 10:00; Admin Dose 4 MG; Start 01/01/17 at 10:00 RUPERTO ANDUJAR Jan 04, 2017 13:04
--- NOTE | 2017-01-04 13:35 | CONS ---
Date/Time of Note Date/Time of Note DATE: 01/04/17 TIME: 13:33 Assessment/Plan Assessment/Plan Additional Assessment/Plan 1. Bilateral LE gangrene, s/p recent amputation by podiatry, worsenign LE wounds --Right lower extremity faint femoral pulse. Nonpalpable pedal pulse. Motor and sensory intact. Capillary refill 4 seconds. 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 - Left lower extremity faint femoral pulse. Nonpalpable pedal pulse 2. h/o donor kidney transplant in 2009 at [facility], currently on immunosuppression with Prograf, CellCept 4. 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 History of hypertension. 6. History of diabetes mellitus. 7. History of previous left upper extremity arteriovenous fistula. 8. Hyponatremia due to hypovolemic hyponatremia Plan: continue Current immunosuppression Prograf and cellcept, Cr normal, Na 132- will monitor off IVF< if Na drops then we will start NS IV abx as per ID Renal function currently has been stable surgery plan as per surgeon- Patient refused surgery- plan do dc her with home health per staff DW Dr Swapna Briscoe Consultation Date/Type/Reason Admit Date/Time Dec 26, 2016 at 13:22 Initial Consult Date 12/27/16 Type of Consultation: NEPHROLOGY Referring Provider: KRISTIN HALL MD Detailed Summary Respiratory: no complaints Cardiovascular: no complaints Gastrointestinal: no complaints Musculoskeletal: other (BLE pain) Exam/Review of Systems Vital Signs Vitals Vital Signs Date Time Temp Pulse Resp B/P Pulse Ox O2 Delivery O2 Flow Rate FiO2 01/04/17 08:07 98.1 74 18 127/65 100 Intake and Output 01/03/17 01/03/17 01/04/17 15:00 23:00 07:00 Intake Total 660 ml 340 ml Balance 660 ml 340 ml Exam Constitutional: alert, oriented Respiratory: clear to auscultation, normal air movement Cardiovascular: nl pulses, regular rate and rhythm Musculoskeletal: other Extremities: other (BLE- faint femoral pulses. Nonpalpable pedal pulse) Neurological: nl mental status, nl speech Skin: other, rash or lesions Results Result Diagram: 01/03/17 0437 01/03/17 0437 Results 24 hrs Laboratory Tests Test 01/03/17 17:32 01/03/17 20:29 01/04/17 08:22 01/04/17 11:47 Bedside Glucose 100 130 91 119 Medications Medications Current Medications Aspirin (Halfprin) 81 mg DAILY PO Last administered on 01/04/17 08:31; Admin Dose 81 MG; Start 12/27/16 at 09:00 Benazepril HCl (Lotensin) 10 mg DAILY PO Last administered on 01/04/17 08:31; Admin Dose 10 MG; Start 12/27/16 at 09:00 Clopidogrel Bisulfate (plaVIX) 75 mg DAILY PO Last administered on 01/04/17 08 :30; Admin Dose 75 MG; Start 12/27/16 at 09:00 Diltiazem HCl (Cardizem Cd) 180 mg DAILY PO Last administered on 01/04/17 08: 32; Admin Dose 180 MG; Start 12/26/16 at 14:00 Doxycycline Hyclate (Vibramycin) 100 mg BID PO Last administered on 01/04/17 08:30; Admin Dose 100 MG; Start 12/26/16 at 21:00 Famotidine (Pepcid) 40 mg HS PO Last administered on 01/03/17 21:40; Admin Dose 40 MG; Start 12/26/16 at 21:00 Folic Acid (Folic Acid) 1 mg DAILY PO Last administered on 01/04/17 08:31; Admin Dose 1 MG; Start 12/27/16 at 09:00 Gabapentin (Neurontin) 100 mg TID PO Last administered on 01/04/17 08:30; Admin Dose 100 MG; Start 12/26/16 at 21:00 Metoprolol Tartrate (Lopressor) 75 mg BID PO Last administered on 01/04/17 08: 31; Admin Dose 75 MG; Start 12/26/16 at 21:00 Mycophenolate Mofetil (Cellcept) 1,000 mg BID PO Last administered on 08:30; Admin Dose 1,000 MG; Start 12/26/16 at 21:00 Tacrolimus (Prograf) 2 mg Q12 PO Last administered on 01/04/17 08:31; Admin Dose 2 MG; Start 12/26/16 at 21:00 Pantoprazole (Protonix Tab) 40 mg DAILY@06 PO Last administered on 01/04/17 05 :16; Admin Dose 40 MG; Start 12/27/16 at 06:00 Morphine Sulfate (morphine) 2 mg Q4H PRN IV PAIN LEVEL 6-10 Last administered on 01/04/17 08:32; Admin Dose 2 MG; Start 12/26/16 at 14:30 Diagnostic Test (Pha) (Accu-Chek) 1 ea 02 XX ; Start 12/27/16 at 02:00 Miscellaneous Information 1 ea NOTE XX ; Start 12/26/16 at 14:30 Glucose (Glutose) 15 gm Q15M PRN PO DECREASED GLUCOSE; Start 12/26/16 at 14:30 Glucose (Glutose) 22.5 gm Q15M PRN PO DECREASED GLUCOSE; Start 12/26/16 at 14:30 Dextrose (D50w Syringe) 25 ml Q15M PRN IV DECREASED GLUCOSE; Start 12/26/16 at 14:30 Dextrose (D50w Syringe) 50 ml Q15M PRN IV DECREASED GLUCOSE; Start 12/26/16 at 14:30 Glucagon (Glucagen) 1 mg Q15M PRN IM DECREASED GLUCOSE; Start 12/26/16 at 14:30 Glucose (Glutose) 15 gm Q15M PRN BUCCAL DECREASED GLUCOSE; Start 12/26/16 at 14: 30 Acetaminophen/ Hydrocodone Bitart ([place] (5/325)) 1 tab Q8 PO Last administered on 01/04/17 05:16; Admin Dose 1 TAB; Start 12/26/16 at 22:00 Cholecalciferol (Vitamin D) 1,000 unit DAILY PO Last administered on 01/04/17 08:31; Admin Dose 1,000 UNIT; Start 12/28/16 at 09:00 Insulin Glargine (Lantus) 7 unit DAILY@20 SC Last administered on 01/03/17 20: 33; Admin Dose 7 UNIT; Start 12/29/16 at 20:00 Ondansetron HCl (Zofran Inj) 4 mg Q6H PRN IV NAUSEA AND/OR VOMITING Last administered on 01/01/17 10:00; Admin Dose 4 MG; Start 01/01/17 at 10:00 TIM BENNETT Jan 04, 2017 13:35
[2017-01-04 14:57] VITALS: BP 114/68; RESP 18
--- NOTE | 2017-01-04 15:22 | CONS ---
Date/Time of Note Date/Time of Note DATE: 01/04/17 TIME: 15:21 Assessment/Plan Assessment/Plan Additional Assessment/Plan 1.Hlg-oj-cpfoi test 10/2016 with no ischemia/only scar/NL EF. Negative trop x 3. Patient is ok to proceed to OR at moderate risk without further noninvasive evaluation on current medications - now on ASA/plavix, stable 2.HTN - modest Rx, will monitpr now 3.PAD with bilateral gangrene - post op, vascular team follows - CON't WOUND CARE 4.DM - con't to keep euglycemic. 5.Anemia- H/H stable - no bleed now. - NO BLEEDING Consultation Date/Type/Reason Admit Date/Time Dec 26, 2016 at 13:22 Initial Consult Date 12/27/16 Type of Consultation: NEPHROLOGY Referring Provider: KRISTIN HALL MD 24 HR Interval Summary Free Text/Dictation No acute e vents - wound care in progress ROS: No fever, no chills, no nausea, no vomiting, no diarrhea/constipation No recent weight changes No chest pain, no PND, no orthopnea No dizziness, blurred vision No thirst, no heat or cold intolerance Exam/Review of Systems Vital Signs Vitals Vital Signs Date Time Temp Pulse Resp B/P Pulse Ox O2 Delivery O2 Flow Rate FiO2 01/04/17 14:57 98.0 82 18 114/68 96 Intake and Output 01/03/17 01/03/17 01/04/17 15:00 23:00 07:00 Intake Total 660 ml 340 ml Balance 660 ml 340 ml Exam General: WN/WD/NAD, AOx 3 HEENT: Unicetric/atraumatic/EOMI (follow commands) NECK: JVD elevated, no thyromegaly Lymph: no lymphadenopathy HEART: regular with no S3, II/ systolic murmur at apex LUNGS: Coarse sounds ABD: soft, NT, ND, +BS : Intact Neuro: non focal SKIN: chronic changes EXT: trace edema, post amput, wounds Results Result Diagram: 01/03/17 0437 01/03/17 0437 Results 24 hrs Laboratory Tests Test 01/03/17 17:32 01/03/17 20:29 01/04/17 08:22 01/04/17 11:47 Bedside Glucose 100 130 91 119 Medications Medications Current Medications Aspirin (Halfprin) 81 mg DAILY PO Last administered on 01/04/17 08:31; Admin Dose 81 MG; Start 12/27/16 at 09:00 Benazepril HCl (Lotensin) 10 mg DAILY PO Last administered on 01/04/17 08:31; Admin Dose 10 MG; Start 12/27/16 at 09:00 Clopidogrel Bisulfate (plaVIX) 75 mg DAILY PO Last administered on 01/04/17 08 :30; Admin Dose 75 MG; Start 12/27/16 at 09:00 Diltiazem HCl (Cardizem Cd) 180 mg DAILY PO Last administered on 01/04/17 08: 32; Admin Dose 180 MG; Start 12/26/16 at 14:00 Doxycycline Hyclate (Vibramycin) 100 mg BID PO Last administered on 01/04/17 08:30; Admin Dose 100 MG; Start 12/26/16 at 21:00 Famotidine (Pepcid) 40 mg HS PO Last administered on 01/03/17 21:40; Admin Dose 40 MG; Start 12/26/16 at 21:00 Folic Acid (Folic Acid) 1 mg DAILY PO Last administered on 01/04/17 08:31; Admin Dose 1 MG; Start 12/27/16 at 09:00 Gabapentin (Neurontin) 100 mg TID PO Last administered on 01/04/17 14:15; Admin Dose 100 MG; Start 12/26/16 at 21:00 Metoprolol Tartrate (Lopressor) 75 mg BID PO Last administered on 01/04/17 08: 31; Admin Dose 75 MG; Start 12/26/16 at 21:00 Mycophenolate Mofetil (Cellcept) 1,000 mg BID PO Last administered on 08:30; Admin Dose 1,000 MG; Start 12/26/16 at 21:00 Tacrolimus (Prograf) 2 mg Q12 PO Last administered on 01/04/17 08:31; Admin Dose 2 MG; Start 12/26/16 at 21:00 Pantoprazole (Protonix Tab) 40 mg DAILY@06 PO Last administered on 01/04/17 05 :16; Admin Dose 40 MG; Start 12/27/16 at 06:00 Morphine Sulfate (morphine) 2 mg Q4H PRN IV PAIN LEVEL 6-10 Last administered on 01/04/17 08:32; Admin Dose 2 MG; Start 12/26/16 at 14:30 Diagnostic Test (Pha) (Accu-Chek) 1 ea 02 XX ; Start 12/27/16 at 02:00 Miscellaneous Information 1 ea NOTE XX ; Start 12/26/16 at 14:30 Glucose (Glutose) 15 gm Q15M PRN PO DECREASED GLUCOSE; Start 12/26/16 at 14:30 Glucose (Glutose) 22.5 gm Q15M PRN PO DECREASED GLUCOSE; Start 12/26/16 at 14:30 Dextrose (D50w Syringe) 25 ml Q15M PRN IV DECREASED GLUCOSE; Start 12/26/16 at 14:30 Dextrose (D50w Syringe) 50 ml Q15M PRN IV DECREASED GLUCOSE; Start 12/26/16 at 14:30 Glucagon (Glucagen) 1 mg Q15M PRN IM DECREASED GLUCOSE; Start 12/26/16 at 14:30 Glucose (Glutose) 15 gm Q15M PRN BUCCAL DECREASED GLUCOSE; Start 12/26/16 at 14: 30 Acetaminophen/ Hydrocodone Bitart ([place] (5/325)) 1 tab Q8 PO Last administered on 01/04/17 14:15; Admin Dose 1 TAB; Start 12/26/16 at 22:00 Cholecalciferol (Vitamin D) 1,000 unit DAILY PO Last administered on 01/04/17 08:31; Admin Dose 1,000 UNIT; Start 12/28/16 at 09:00 Insulin Glargine (Lantus) 7 unit DAILY@20 SC Last administered on 01/03/17 20: 33; Admin Dose 7 UNIT; Start 12/29/16 at 20:00 Ondansetron HCl (Zofran Inj) 4 mg Q6H PRN IV NAUSEA AND/OR VOMITING Last administered on 01/01/17 10:00; Admin Dose 4 MG; Start 01/01/17 at 10:00 MIRELLA MOSER MD Jan 04, 2017 15:22
--- NOTE | 2017-01-04 19:21 | CONS ---
Date/Time of Note Date/Time of Note DATE: 01/04/17 TIME: 19:17 Assessment/Plan Assessment/Plan Chief Complaint/Hosp Course ID PROGRESS NOTE CURRENT ABX: =>Doxycycline 24H INTERVAL SUMMARY * Clinically stable, calm, resting comfortable, no fevers * Foot wound Cx (+) WOUND CULTURE Preliminary Organism 1 GRAM NEGATIVE NORMAN QUANTITY 1+ EXAM GEN: VSS, NAD HEENT: Unremarkable NECK: supple CVS: RRR, S1 and S2 CHEST: Equal chest rise bilaterally without dyspnea on observation ABD: Soft, NT, EXT: warm, DSG C/D/I SKIN: No rash, no diaphoresis ID ASSESSMENT 61 yo F admit with: 1. Bilateral lower extremities gangrene secondary to severe peripheral arterial disease, failed debridement and revascularization procedures. * WOUND CULTURE Preliminary Organism 1 GRAM NEGATIVE NORMAN QUANTITY 1+ 2. Diabetes. 3. History of kidney transplant in 2009, on immunosuppressive therapy. 4. Diabetes. 5. Hypertension. 6. Hx of E.coli-ESBL UTI ABX ALLERGY: PCN CURRENT ABX: =>Doxycycline ID RECOMMENDATIONS 1. Await final ID of GNR and dose ABX according to sensitivities, she is stable 2. Per notes, declined BLEXT amputation recommendation Problems: Consultation Date/Type/Reason Admit Date/Time Dec 26, 2016 at 13:22 Initial Consult Date 12/27/16 Type of Consultation: ID Referring Provider: KRISTIN HALL MD Exam/Review of Systems Vital Signs Vitals Vital Signs Date Time Temp Pulse Resp B/P Pulse Ox O2 Delivery O2 Flow Rate FiO2 01/04/17 14:57 98.0 82 18 114/68 96 Intake and Output 01/03/17 01/03/17 01/04/17 15:00 23:00 07:00 Intake Total 660 ml 340 ml Balance 660 ml 340 ml Results Result Diagram: 01/03/17 0437 01/03/17 0437 Results 24 hrs Laboratory Tests Test 01/03/17 20:29 01/04/17 08:22 01/04/17 11:47 01/04/17 16:45 Bedside Glucose 130 91 119 129 Medications Medications Current Medications Aspirin (Halfprin) 81 mg DAILY PO Last administered on 01/04/17 08:31; Admin Dose 81 MG; Start 12/27/16 at 09:00 Benazepril HCl (Lotensin) 10 mg DAILY PO Last administered on 01/04/17 08:31; Admin Dose 10 MG; Start 12/27/16 at 09:00 Clopidogrel Bisulfate (plaVIX) 75 mg DAILY PO Last administered on 01/04/17 08 :30; Admin Dose 75 MG; Start 12/27/16 at 09:00 Diltiazem HCl (Cardizem Cd) 180 mg DAILY PO Last administered on 01/04/17 08: 32; Admin Dose 180 MG; Start 12/26/16 at 14:00 Doxycycline Hyclate (Vibramycin) 100 mg BID PO Last administered on 01/04/17 08:30; Admin Dose 100 MG; Start 12/26/16 at 21:00 Famotidine (Pepcid) 40 mg HS PO Last administered on 01/03/17 21:40; Admin Dose 40 MG; Start 12/26/16 at 21:00 Folic Acid (Folic Acid) 1 mg DAILY PO Last administered on 01/04/17 08:31; Admin Dose 1 MG; Start 12/27/16 at 09:00 Gabapentin (Neurontin) 100 mg TID PO Last administered on 01/04/17 14:15; Admin Dose 100 MG; Start 12/26/16 at 21:00 Metoprolol Tartrate (Lopressor) 75 mg BID PO Last administered on 01/04/17 08: 31; Admin Dose 75 MG; Start 12/26/16 at 21:00 Mycophenolate Mofetil (Cellcept) 1,000 mg BID PO Last administered on 08:30; Admin Dose 1,000 MG; Start 12/26/16 at 21:00 Tacrolimus (Prograf) 2 mg Q12 PO Last administered on 01/04/17 08:31; Admin Dose 2 MG; Start 12/26/16 at 21:00 Pantoprazole (Protonix Tab) 40 mg DAILY@06 PO Last administered on 01/04/17 05 :16; Admin Dose 40 MG; Start 12/27/16 at 06:00 Morphine Sulfate (morphine) 2 mg Q4H PRN IV PAIN LEVEL 6-10 Last administered on 01/04/17 15:35; Admin Dose 2 MG; Start 12/26/16 at 14:30 Diagnostic Test (Pha) (Accu-Chek) 1 ea 02 XX ; Start 12/27/16 at 02:00 Miscellaneous Information 1 ea NOTE XX ; Start 12/26/16 at 14:30 Glucose (Glutose) 15 gm Q15M PRN PO DECREASED GLUCOSE; Start 12/26/16 at 14:30 Glucose (Glutose) 22.5 gm Q15M PRN PO DECREASED GLUCOSE; Start 12/26/16 at 14:30 Dextrose (D50w Syringe) 25 ml Q15M PRN IV DECREASED GLUCOSE; Start 12/26/16 at 14:30 Dextrose (D50w Syringe) 50 ml Q15M PRN IV DECREASED GLUCOSE; Start 12/26/16 at 14:30 Glucagon (Glucagen) 1 mg Q15M PRN IM DECREASED GLUCOSE; Start 12/26/16 at 14:30 Glucose (Glutose) 15 gm Q15M PRN BUCCAL DECREASED GLUCOSE; Start 12/26/16 at 14: 30 Acetaminophen/ Hydrocodone Bitart ([place] (5/325)) 1 tab Q8 PO Last administered on 01/04/17 14:15; Admin Dose 1 TAB; Start 12/26/16 at 22:00 Cholecalciferol (Vitamin D) 1,000 unit DAILY PO Last administered on 01/04/17 08:31; Admin Dose 1,000 UNIT; Start 12/28/16 at 09:00 Insulin Glargine (Lantus) 7 unit DAILY@20 SC Last administered on 01/03/17 20: 33; Admin Dose 7 UNIT; Start 12/29/16 at 20:00 Ondansetron HCl (Zofran Inj) 4 mg Q6H PRN IV NAUSEA AND/OR VOMITING Last administered on 01/01/17 10:00; Admin Dose 4 MG; Start 01/01/17 at 10:00 HAMZAH GARZA NP Jan 04, 2017 19:21
[2017-01-04 20:11] VITALS: BP 132/76; RESP 18
[2017-01-04] MEDS: FAMOTIDINE 20 MG TAB PO SCH (20:54)
[2017-01-04] MEDS: INSULIN GLARGINE [LANtus] 3 ML PEN SC SCH (21:03)
[2017-01-05] MEDS: ACCU-CHEK XX SCH ×2 (02:00→20:58)
[2017-01-05 02:08] VITALS: BP 131/72; RESP 18
[2017-01-05] MEDS: morphine 2 MG INJ IV PRN ×3 (03:42→19:49)
[2017-01-05] MEDS: PANTOPRAZOLE (EC) 40 MG TAB PO SCH (05:32)
[2017-01-05] MEDS: HYDROCODONE/APAP (5/325) TAB PO SCH ×3 (05:33→20:57)
[2017-01-05] MEDS: INSULIN ASPART [NOVOLOG] 3 ML PEN SC SCH ×4 (08:00→20:57)
[2017-01-05 08:16] VITALS: BP 125/68; RESP 18
[2017-01-05] MEDS: CLOPIDOGREL 75 MG TAB PO SCH (09:08)
[2017-01-05] MEDS: CHOLECALCIFEROL 1,000 UNIT TAB PO SCH (09:08)
[2017-01-05] MEDS: GABAPENTIN 100 MG CAP PO SCH ×3 (09:08→20:57)
[2017-01-05] MEDS: TACROLIMUS 1 MG CAP PO SCH ×2 (09:08→20:57)
[2017-01-05] MEDS: FOLIC ACID 1 MG TAB PO SCH (09:08)
[2017-01-05] MEDS: ASPIRIN (EC) 81 MG TAB PO SCH (09:08)
[2017-01-05] MEDS: MYCOPHENOLATE 250 MG CAP PO SCH ×2 (09:08→20:55)
[2017-01-05] MEDS: BENAZEPRIL 10 MG TAB PO SCH (09:08)
[2017-01-05] MEDS: DOXYCYCLINE 100 MG TAB PO SCH ×2 (09:08→20:57)
[2017-01-05] MEDS: METOPROLOL 25 MG TAB PO SCH ×2 (09:09→20:56)
[2017-01-05] MEDS: DILTIAZEM (CD) 180 MG CAP PO SCH (09:09)
--- NOTE | 2017-01-05 10:39 | CONS ---
Date/Time of Note Date/Time of Note DATE: 01/05/17 TIME: 10:38 Assessment/Plan Assessment/Plan Additional Assessment/Plan 1. 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 h/o donor kidney transplant in 2009 at [facility], currently on immunosuppression with Prograf, CellCept 4. 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 History of hypertension. 6. History of diabetes mellitus. 7. History of previous left upper extremity arteriovenous fistula. 8. Hyponatremia due to hypovolemic hyponatremia Plan: continue Current immunosuppression Prograf and cellcept, Cr normal, Na 132- will monitor off IVF< if Na drops then we will start NS IV abx as per ID Renal function currently has been stable surgery plan as per surgeon- Patient refused surgery- plan do dc her with home health per staff. 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 DW Dr Swapna Briscoe Consultation Date/Type/Reason Admit Date/Time Dec 26, 2016 at 13:22 Initial Consult Date 12/27/16 Type of Consultation: ID Referring Provider: KRISTIN HALL MD Detailed Summary Respiratory: no complaints Cardiovascular: no complaints Gastrointestinal: no complaints Genitourinary: no complaints Musculoskeletal: other (BLE PAIN) Skin: skin lesions Neurologic: no complaints Exam/Review of Systems Vital Signs Vitals Vital Signs Date Time Temp Pulse Resp B/P Pulse Ox O2 Delivery O2 Flow Rate FiO2 01/05/17 08:16 97.5 81 18 125/68 100 Intake and Output 01/04/17 01/04/17 01/05/17 15:00 23:00 07:00 Intake Total 540 ml 960 ml Output Total 400 ml Balance 140 ml 960 ml Exam Constitutional: alert, oriented Respiratory: clear to auscultation, normal air movement Cardiovascular: nl pulses, other, regular rate and rhythm Gastrointestinal: soft Musculoskeletal: muscle weakness Extremities: other (BLE- diminshed pulses) Results Result Diagram: 01/03/17 0437 01/03/17 0437 Results 24 hrs Laboratory Tests Test 01/04/17 11:47 01/04/17 16:45 01/04/17 21:01 01/05/17 08:08 Bedside Glucose 119 129 127 126 Medications Medications Current Medications Aspirin (Halfprin) 81 mg DAILY PO Last administered on 01/05/17 09:08; Admin Dose 81 MG; Start 12/27/16 at 09:00 Benazepril HCl (Lotensin) 10 mg DAILY PO Last administered on 01/05/17 09:08; Admin Dose 10 MG; Start 12/27/16 at 09:00 Clopidogrel Bisulfate (plaVIX) 75 mg DAILY PO Last administered on 01/05/17 09 :08; Admin Dose 75 MG; Start 12/27/16 at 09:00 Diltiazem HCl (Cardizem Cd) 180 mg DAILY PO Last administered on 01/05/17 09: 09; Admin Dose 180 MG; Start 12/26/16 at 14:00 Doxycycline Hyclate (Vibramycin) 100 mg BID PO Last administered on 01/05/17 09:08; Admin Dose 100 MG; Start 12/26/16 at 21:00 Famotidine (Pepcid) 40 mg HS PO Last administered on 01/04/17 20:54; Admin Dose 40 MG; Start 12/26/16 at 21:00 Folic Acid (Folic Acid) 1 mg DAILY PO Last administered on 01/05/17 09:08; Admin Dose 1 MG; Start 12/27/16 at 09:00 Gabapentin (Neurontin) 100 mg TID PO Last administered on 01/05/17 09:08; Admin Dose 100 MG; Start 12/26/16 at 21:00 Metoprolol Tartrate (Lopressor) 75 mg BID PO Last administered on 01/05/17 09: 09; Admin Dose 75 MG; Start 12/26/16 at 21:00 Mycophenolate Mofetil (Cellcept) 1,000 mg BID PO Last administered on 09:08; Admin Dose 1,000 MG; Start 12/26/16 at 21:00 Tacrolimus (Prograf) 2 mg Q12 PO Last administered on 01/05/17 09:08; Admin Dose 2 MG; Start 12/26/16 at 21:00 Pantoprazole (Protonix Tab) 40 mg DAILY@06 PO Last administered on 01/05/17 05 :32; Admin Dose 40 MG; Start 12/27/16 at 06:00 Morphine Sulfate (morphine) 2 mg Q4H PRN IV PAIN LEVEL 6-10 Last administered on 01/05/17 03:42; Admin Dose 2 MG; Start 12/26/16 at 14:30 Diagnostic Test (Pha) (Accu-Chek) 1 ea 02 XX ; Start 12/27/16 at 02:00 Miscellaneous Information 1 ea NOTE XX ; Start 12/26/16 at 14:30 Glucose (Glutose) 15 gm Q15M PRN PO DECREASED GLUCOSE; Start 12/26/16 at 14:30 Glucose (Glutose) 22.5 gm Q15M PRN PO DECREASED GLUCOSE; Start 12/26/16 at 14:30 Dextrose (D50w Syringe) 25 ml Q15M PRN IV DECREASED GLUCOSE; Start 12/26/16 at 14:30 Dextrose (D50w Syringe) 50 ml Q15M PRN IV DECREASED GLUCOSE; Start 12/26/16 at 14:30 Glucagon (Glucagen) 1 mg Q15M PRN IM DECREASED GLUCOSE; Start 12/26/16 at 14:30 Glucose (Glutose) 15 gm Q15M PRN BUCCAL DECREASED GLUCOSE; Start 12/26/16 at 14: 30 Acetaminophen/ Hydrocodone Bitart ([place] (5/325)) 1 tab Q8 PO Last administered on 01/05/17 05:33; Admin Dose 1 TAB; Start 12/26/16 at 22:00 Cholecalciferol (Vitamin D) 1,000 unit DAILY PO Last administered on 01/05/17 09:08; Admin Dose 1,000 UNIT; Start 12/28/16 at 09:00 Insulin Glargine (Lantus) 7 unit DAILY@20 SC Last administered on 01/04/17 21: 03; Admin Dose 7 UNIT; Start 12/29/16 at 20:00 Ondansetron HCl (Zofran Inj) 4 mg Q6H PRN IV NAUSEA AND/OR VOMITING Last administered on 01/01/17 10:00; Admin Dose 4 MG; Start 01/01/17 at 10:00 TIM BENNETT Jan 05, 2017 10:39
--- NOTE | 2017-01-05 12:38 | CONS ---
Date/Time of Note Date/Time of Note DATE: 01/05/17 TIME: 12:35 Assessment/Plan Assessment/Plan Chief Complaint/Hosp Course ID PROGRESS NOTE CURRENT ABX: =>Doxycycline + Start Merrem #1 24H INTERVAL SUMMARY * Clinically stable, calm, resting comfortable, no fevers * Per RN, she has agreed to BLEXT amputation * Foot wound Cx (+) WOUND CULTURE Final Organism 1 ESCHERICHIA COLI (ESBL) QUANTITY 1+ . MULTI DRUG RESISTANT ORGANISM ECOLI ESBL M.I.C. RX --------- --- AMPICILLIN >=32 R CEFAZOLIN R CEFEPIME 2 S CEFOTAXIME R CIPROFLOXACIN >=4 R GENTAMICIN 2 S IMIPENEM <=0.25 S LEVOFLOXACIN >=8 R TOBRAMYCIN 2 S TRIMETHOPRIM/SULFAMETHOXAZOLE >=320 R PIPERACILLIN/TAZOBACTAM <=4 S EXAM GEN: VSS, NAD HEENT: Unremarkable NECK: supple CVS: RRR, S1 and S2 CHEST: Equal chest rise bilaterally without dyspnea on observation ABD: Soft, NT, EXT: warm, DSG C/D/I SKIN: No rash, no diaphoresis ID ASSESSMENT 61 yo F admit with: 1. Bilateral lower extremities gangrene secondary to severe peripheral arterial disease, failed debridement and revascularization procedures. * Foot wound Cx (+) WOUND CULTURE Final Organism 1 ESCHERICHIA COLI (ESBL) QUANTITY 1+ . MULTI DRUG RESISTANT ORGANISM 2. Diabetes. 3. History of kidney transplant in 2009, on immunosuppressive therapy. 4. Diabetes. 5. Hypertension. 6. Hx of E.coli-ESBL UTI ABX ALLERGY: PCN CURRENT ABX: =>Doxycycline + Start Merrem #1 ID RECOMMENDATIONS 1. Start Merrem IV to cover E.Coli/ESBL pathogen 2. Per RN she has agreed to amputations . Problems: Consultation Date/Type/Reason Admit Date/Time Dec 26, 2016 at 13:22 Initial Consult Date 12/27/16 Type of Consultation: ID Referring Provider: KRISTIN HALL MD Exam/Review of Systems Vital Signs Vitals Vital Signs Date Time Temp Pulse Resp B/P Pulse Ox O2 Delivery O2 Flow Rate FiO2 01/05/17 08:16 97.5 81 18 125/68 100 Intake and Output 01/04/17 01/04/17 01/05/17 15:00 23:00 07:00 Intake Total 540 ml 960 ml Output Total 400 ml Balance 140 ml 960 ml Results Result Diagram: 01/03/17 0437 01/03/17 0437 Results 24 hrs Laboratory Tests Test 01/04/17 16:45 01/04/17 21:01 01/05/17 08:08 01/05/17 12:07 Bedside Glucose 129 127 126 136 Medications Medications Current Medications Aspirin (Halfprin) 81 mg DAILY PO Last administered on 01/05/17 09:08; Admin Dose 81 MG; Start 12/27/16 at 09:00 Benazepril HCl (Lotensin) 10 mg DAILY PO Last administered on 01/05/17 09:08; Admin Dose 10 MG; Start 12/27/16 at 09:00 Clopidogrel Bisulfate (plaVIX) 75 mg DAILY PO Last administered on 01/05/17 09 :08; Admin Dose 75 MG; Start 12/27/16 at 09:00 Diltiazem HCl (Cardizem Cd) 180 mg DAILY PO Last administered on 01/05/17 09: 09; Admin Dose 180 MG; Start 12/26/16 at 14:00 Doxycycline Hyclate (Vibramycin) 100 mg BID PO Last administered on 01/05/17 09:08; Admin Dose 100 MG; Start 12/26/16 at 21:00 Famotidine (Pepcid) 40 mg HS PO Last administered on 01/04/17 20:54; Admin Dose 40 MG; Start 12/26/16 at 21:00 Folic Acid (Folic Acid) 1 mg DAILY PO Last administered on 01/05/17 09:08; Admin Dose 1 MG; Start 12/27/16 at 09:00 Gabapentin (Neurontin) 100 mg TID PO Last administered on 01/05/17 09:08; Admin Dose 100 MG; Start 12/26/16 at 21:00 Metoprolol Tartrate (Lopressor) 75 mg BID PO Last administered on 01/05/17 09: 09; Admin Dose 75 MG; Start 12/26/16 at 21:00 Mycophenolate Mofetil (Cellcept) 1,000 mg BID PO Last administered on 09:08; Admin Dose 1,000 MG; Start 12/26/16 at 21:00 Tacrolimus (Prograf) 2 mg Q12 PO Last administered on 01/05/17 09:08; Admin Dose 2 MG; Start 12/26/16 at 21:00 Pantoprazole (Protonix Tab) 40 mg DAILY@06 PO Last administered on 01/05/17 05 :32; Admin Dose 40 MG; Start 12/27/16 at 06:00 Morphine Sulfate (morphine) 2 mg Q4H PRN IV PAIN LEVEL 6-10 Last administered on 01/05/17 12:03; Admin Dose 2 MG; Start 12/26/16 at 14:30 Diagnostic Test (Pha) (Accu-Chek) 1 ea 02 XX ; Start 12/27/16 at 02:00 Miscellaneous Information 1 ea NOTE XX ; Start 12/26/16 at 14:30 Glucose (Glutose) 15 gm Q15M PRN PO DECREASED GLUCOSE; Start 12/26/16 at 14:30 Glucose (Glutose) 22.5 gm Q15M PRN PO DECREASED GLUCOSE; Start 12/26/16 at 14:30 Dextrose (D50w Syringe) 25 ml Q15M PRN IV DECREASED GLUCOSE; Start 12/26/16 at 14:30 Dextrose (D50w Syringe) 50 ml Q15M PRN IV DECREASED GLUCOSE; Start 12/26/16 at 14:30 Glucagon (Glucagen) 1 mg Q15M PRN IM DECREASED GLUCOSE; Start 12/26/16 at 14:30 Glucose (Glutose) 15 gm Q15M PRN BUCCAL DECREASED GLUCOSE; Start 12/26/16 at 14: 30 Acetaminophen/ Hydrocodone Bitart ([place] (5/325)) 1 tab Q8 PO Last administered on 01/05/17 05:33; Admin Dose 1 TAB; Start 12/26/16 at 22:00 Cholecalciferol (Vitamin D) 1,000 unit DAILY PO Last administered on 01/05/17 09:08; Admin Dose 1,000 UNIT; Start 12/28/16 at 09:00 Insulin Glargine (Lantus) 7 unit DAILY@20 SC Last administered on 01/04/17 21: 03; Admin Dose 7 UNIT; Start 12/29/16 at 20:00 Ondansetron HCl (Zofran Inj) 4 mg Q6H PRN IV NAUSEA AND/OR VOMITING Last administered on 01/01/17t 10:00; Admin Dose 4 MG; Start 01/01/17 at 10:00 HAMZAH GARZA NP Jan 05, 2017 12:38
--- NOTE | 2017-01-05 12:55 | CONS ---
Date/Time of Note Date/Time of Note DATE: 01/05/17 TIME: 12:53 Assessment/Plan Assessment/Plan Additional Assessment/Plan 1.Snd-lq-bsftd test 10/2016 with no ischemia/only scar/NL EF. Negative trop x 3. Patient is ok to proceed to OR at moderate risk without further noninvasive evaluation on current medications - now on ASA/plavix, stable 2.HTN - modest Rx, will monitpr now - STABLE now 3.PAD with bilateral gangrene - post op, vascular team follows - CON't WOUND CARE - ID recs noted 4.DM - con't to keep euglycemic. 5.Anemia- H/H stable - no bleed now. - NO BLEEDING Consultation Date/Type/Reason Admit Date/Time Dec 26, 2016 at 13:22 Initial Consult Date 12/27/16 Type of Consultation: ID Referring Provider: KRISTIN HALL MD 24 HR Interval Summary Free Text/Dictation NO acute events - BP in good range - NO CP, doubt ischemia. ROS: No fever, no chills, no nausea, no vomiting, no diarrhea/constipation No recent weight changes No chest pain, no PND, no orthopnea No dizziness, blurred vision No thirst, no heat or cold intolerance Exam/Review of Systems Vital Signs Vitals Vital Signs Date Time Temp Pulse Resp B/P Pulse Ox O2 Delivery O2 Flow Rate FiO2 01/05/17 08:16 97.5 81 18 125/68 100 Intake and Output 01/04/17 01/04/17 01/05/17 15:00 23:00 07:00 Intake Total 540 ml 960 ml Output Total 400 ml Balance 140 ml 960 ml Exam General: WN/WD/NAD, AOx 3 HEENT: Unicetric/atraumatic/EOMI (follow commands) NECK: JVD elevated, no thyromegaly Lymph: no lymphadenopathy HEART: regular with no S3, II/ systolic murmur at apex LUNGS: Coarse sounds ABD: soft, NT, ND, +BS : Intact Neuro: non focal SKIN: chronic changes EXT: trace edema, severe pAD, wounds Results Result Diagram: 01/03/17 0437 01/03/17 0437 Results 24 hrs Laboratory Tests Test 01/04/17 16:45 01/04/17 21:01 01/05/17 08:08 01/05/17 12:07 Bedside Glucose 129 127 126 136 Medications Medications Current Medications Aspirin (Halfprin) 81 mg DAILY PO Last administered on 01/05/17 09:08; Admin Dose 81 MG; Start 12/27/16 at 09:00 Benazepril HCl (Lotensin) 10 mg DAILY PO Last administered on 01/05/17 09:08; Admin Dose 10 MG; Start 12/27/16 at 09:00 Clopidogrel Bisulfate (plaVIX) 75 mg DAILY PO Last administered on 01/05/17 09 :08; Admin Dose 75 MG; Start 12/27/16 at 09:00 Diltiazem HCl (Cardizem Cd) 180 mg DAILY PO Last administered on 01/05/17 09: 09; Admin Dose 180 MG; Start 12/26/16 at 14:00 Doxycycline Hyclate (Vibramycin) 100 mg BID PO Last administered on 01/05/17 09:08; Admin Dose 100 MG; Start 12/26/16 at 21:00 Famotidine (Pepcid) 40 mg HS PO Last administered on 01/04/17 20:54; Admin Dose 40 MG; Start 12/26/16 at 21:00 Folic Acid (Folic Acid) 1 mg DAILY PO Last administered on 01/05/17 09:08; Admin Dose 1 MG; Start 12/27/16 at 09:00 Gabapentin (Neurontin) 100 mg TID PO Last administered on 01/05/17 09:08; Admin Dose 100 MG; Start 12/26/16 at 21:00 Metoprolol Tartrate (Lopressor) 75 mg BID PO Last administered on 01/05/17 09: 09; Admin Dose 75 MG; Start 12/26/16 at 21:00 Mycophenolate Mofetil (Cellcept) 1,000 mg BID PO Last administered on 09:08; Admin Dose 1,000 MG; Start 12/26/16 at 21:00 Tacrolimus (Prograf) 2 mg Q12 PO Last administered on 01/05/17 09:08; Admin Dose 2 MG; Start 12/26/16 at 21:00 Pantoprazole (Protonix Tab) 40 mg DAILY@06 PO Last administered on 01/05/17 05 :32; Admin Dose 40 MG; Start 12/27/16 at 06:00 Morphine Sulfate (morphine) 2 mg Q4H PRN IV PAIN LEVEL 6-10 Last administered on 01/05/17 12:03; Admin Dose 2 MG; Start 12/26/16 at 14:30 Diagnostic Test (Pha) (Accu-Chek) 1 ea 02 XX ; Start 12/27/16 at 02:00 Miscellaneous Information 1 ea NOTE XX ; Start 12/26/16 at 14:30 Glucose (Glutose) 15 gm Q15M PRN PO DECREASED GLUCOSE; Start 12/26/16 at 14:30 Glucose (Glutose) 22.5 gm Q15M PRN PO DECREASED GLUCOSE; Start 12/26/16 at 14:30 Dextrose (D50w Syringe) 25 ml Q15M PRN IV DECREASED GLUCOSE; Start 12/26/16 at 14:30 Dextrose (D50w Syringe) 50 ml Q15M PRN IV DECREASED GLUCOSE; Start 12/26/16 at 14:30 Glucagon (Glucagen) 1 mg Q15M PRN IM DECREASED GLUCOSE; Start 12/26/16 at 14:30 Glucose (Glutose) 15 gm Q15M PRN BUCCAL DECREASED GLUCOSE; Start 12/26/16 at 14: 30 Acetaminophen/ Hydrocodone Bitart ([place] (5/325)) 1 tab Q8 PO Last administered on 01/05/17 05:33; Admin Dose 1 TAB; Start 12/26/16 at 22:00 Cholecalciferol (Vitamin D) 1,000 unit DAILY PO Last administered on 01/05/17 09:08; Admin Dose 1,000 UNIT; Start 12/28/16 at 09:00 Insulin Glargine (Lantus) 7 unit DAILY@20 SC Last administered on 01/04/17 21: 03; Admin Dose 7 UNIT; Start 12/29/16 at 20:00 Ondansetron HCl 4 mg 4 mg Q6H PRN IV NAUSEA AND/OR VOMITING Last administered on 01/01/17 10:00; Admin Dose 4 MG; Start 01/01/17 at 10:00 Meropenem/Sodium Chloride (Merrem 1 Gm/50 ml (Pmx)) 50 ml @ 100 mls/hr Q12 IVPB ; Start 01/05/17 at 21:00 MIRELLA MOSER MD Jan 05, 2017 12:55
--- NOTE | 2017-01-05 13:07 | PN ---
Date/Time of Note Date/Time of Note DATE: 01/05/17 TIME: 13:07 Assessment/Plan VTE Prophylaxis VTE Prophylaxis Intervention: other Lines/Catheters IV Catheter Type (from [facility] Urinary Cath still in place: No Assessment/Plan Chief Complaint/Hosp Course - Non healing wounds BLE - per Dr. Valencia in vascular surgery consultation. Continue pain medication. Plan for limb amputation. - per ID - End-stage renal disease status post renal transplant. Continues CellCept and tacrolimus. - per nephro - Hyponatremia- per nephro - Hypertension. 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 - Anemia of chronic kidney disease. - Severe peripheral arterial disease. Problems: Subjective 24 Hr Interval Summary Free Text/Dictation Patient complain of pain in legs Exam/Review of Systems Vital Signs Vitals Vital Signs Date Time Temp Pulse Resp B/P Pulse Ox O2 Delivery O2 Flow Rate FiO2 01/05/17 08:16 97.5 81 18 125/68 100 Intake and Output 01/04/17 01/04/17 01/05/17 15:00 23:00 07:00 Intake Total 540 ml 960 ml Output Total 400 ml Balance 140 ml 960 ml Exam Constitutional: well developed Head: atraumatic, normocephalic Neck: supple Respiratory: clear to auscultation Cardiovascular: regular rate and rhythm Gastrointestinal: non-tender, soft Extremities: normal pulses Results Result Diagram: 01/03/17 0437 01/03/17 0437 Results 24 hrs Laboratory Tests Test 01/04/17 16:45 01/04/17 21:01 01/05/17 08:08 01/05/17 12:07 Bedside Glucose 129 127 126 136 Medications Medications Current Medications Aspirin (Halfprin) 81 mg DAILY PO Last administered on 01/05/17 09:08; Admin Dose 81 MG; Start 12/27/16 at 09:00 Benazepril HCl (Lotensin) 10 mg DAILY PO Last administered on 01/05/17 09:08; Admin Dose 10 MG; Start 12/27/16 at 09:00 Clopidogrel Bisulfate (plaVIX) 75 mg DAILY PO Last administered on 01/05/17 09 :08; Admin Dose 75 MG; Start 12/27/16 at 09:00 Diltiazem HCl (Cardizem Cd) 180 mg DAILY PO Last administered on 01/05/17 09: 09; Admin Dose 180 MG; Start 12/26/16 at 14:00 Doxycycline Hyclate (Vibramycin) 100 mg BID PO Last administered on 01/05/17 09:08; Admin Dose 100 MG; Start 12/26/16 at 21:00 Famotidine (Pepcid) 40 mg HS PO Last administered on 01/04/17 20:54; Admin Dose 40 MG; Start 12/26/16 at 21:00 Folic Acid (Folic Acid) 1 mg DAILY PO Last administered on 01/05/17 09:08; Admin Dose 1 MG; Start 12/27/16 at 09:00 Gabapentin (Neurontin) 100 mg TID PO Last administered on 01/05/17 09:08; Admin Dose 100 MG; Start 12/26/16 at 21:00 Metoprolol Tartrate (Lopressor) 75 mg BID PO Last administered on 01/05/17 09: 09; Admin Dose 75 MG; Start 12/26/16 at 21:00 Mycophenolate Mofetil (Cellcept) 1,000 mg BID PO Last administered on 09:08; Admin Dose 1,000 MG; Start 12/26/16 at 21:00 Tacrolimus (Prograf) 2 mg Q12 PO Last administered on 01/05/17 09:08; Admin Dose 2 MG; Start 12/26/16 at 21:00 Pantoprazole (Protonix Tab) 40 mg DAILY@06 PO Last administered on 01/05/17 05 :32; Admin Dose 40 MG; Start 12/27/16 at 06:00 Morphine Sulfate (morphine) 2 mg Q4H PRN IV PAIN LEVEL 6-10 Last administered on 01/05/17 12:03; Admin Dose 2 MG; Start 12/26/16 at 14:30 Diagnostic Test (Pha) (Accu-Chek) 1 ea 02 XX ; Start 12/27/16 at 02:00 Miscellaneous Information 1 ea NOTE XX ; Start 12/26/16 at 14:30 Glucose (Glutose) 15 gm Q15M PRN PO DECREASED GLUCOSE; Start 12/26/16 at 14:30 Glucose (Glutose) 22.5 gm Q15M PRN PO DECREASED GLUCOSE; Start 12/26/16 at 14:30 Dextrose (D50w Syringe) 25 ml Q15M PRN IV DECREASED GLUCOSE; Start 12/26/16 at 14:30 Dextrose (D50w Syringe) 50 ml Q15M PRN IV DECREASED GLUCOSE; Start 12/26/16 at 14:30 Glucagon (Glucagen) 1 mg Q15M PRN IM DECREASED GLUCOSE; Start 12/26/16 at 14:30 Glucose (Glutose) 15 gm Q15M PRN BUCCAL DECREASED GLUCOSE; Start 12/26/16 at 14: 30 Acetaminophen/ Hydrocodone Bitart ([place] (5/325)) 1 tab Q8 PO Last administered on 01/05/17 05:33; Admin Dose 1 TAB; Start 12/26/16 at 22:00 Cholecalciferol (Vitamin D) 1,000 unit DAILY PO Last administered on 01/05/17 09:08; Admin Dose 1,000 UNIT; Start 12/28/16 at 09:00 Insulin Glargine (Lantus) 7 unit DAILY@20 SC Last administered on 01/04/17 21: 03; Admin Dose 7 UNIT; Start 12/29/16 at 20:00 Ondansetron HCl 4 mg 4 mg Q6H PRN IV NAUSEA AND/OR VOMITING Last administered on 01/01/17 10:00; Admin Dose 4 MG; Start 01/01/17 at 10:00 Meropenem/Sodium Chloride (Merrem 1 Gm/50 ml (Pmx)) 50 ml @ 100 mls/hr Q12 IVPB ; Start 01/05/17 at 21:00 RUPERTO ANDUJAR Jan 05, 2017 13:07
[2017-01-05 14:57] VITALS: BP 119/66; RESP 18
[2017-01-05 20:22] VITALS: BP 129/74; RESP 18
[2017-01-05] MEDS: INSULIN GLARGINE [LANtus] 3 ML PEN SC SCH (20:53)
[2017-01-05] MEDS: MEROPENEM 1 GM/50ML(PMX) 50 ML IVPB SCH (20:54)
[2017-01-05] MEDS: FAMOTIDINE 20 MG TAB PO SCH (20:57)
[2017-01-06 02:48] VITALS: BP 137/71; RESP 18
[2017-01-06] MEDS: morphine 2 MG INJ IV PRN ×5 (04:17→21:04)
[2017-01-06] MEDS: PANTOPRAZOLE (EC) 40 MG TAB PO SCH (05:32)
[2017-01-06] MEDS: HYDROCODONE/APAP (5/325) TAB PO SCH ×3 (05:33→22:52)
[2017-01-06 06:04] LABS: BASOPHILS % 0.2 % (0.0-2.0); EOSINOPHILS # 0.1 10^3/ul (0.0-0.5); EOSINOPHILS % 0.6 % (0.0-7.0); HEMATOCRIT 30.6 % (37.0-47.0); HEMOGLOBIN 10.2 g/dl (12.0-16.0); LYMPHOCYTES % 9.7 % (15.0-51.0); MEAN CORPUSCULAR HEMOGLOBIN 27.9 pg (29.0-33.0); MEAN CORPUSCULAR HGB CONC 33.3 g/dl (32.0-37.0); MEAN CORPUSCULAR VOLUME 83.8 fl (82.0-101.0); MEAN PLATELET VOLUME 11.9 fl (7.4-10.4); MONOCYTE # 1.2 10^3/ul (0.3-0.9); MONOCYTES % 11.4 % (0.0-11.0); NEUTROPHILS % 77.8 % (39.0-77.0); PLATELET COUNT 202 10^3/UL (140-415); RED BLOOD COUNT 3.65 10^6/ul (4.20-5.40); RED CELL DISTRIBUTION WIDTH 13.3 % (11.5-14.5); WHITE BLOOD COUNT 10.3 10^3/ul (4.8-10.8)
[2017-01-06 06:44] LABS: CALCIUM 9.8 mg/dl (8.4-10.2); CREATININE 0.7 mg/dl (0.44-1.00)
[2017-01-06 08:00] VITALS: BP 119/70; RESP 20
[2017-01-06] MEDS: INSULIN ASPART [NOVOLOG] 3 ML PEN SC SCH ×4 (08:00→20:56)
[2017-01-06] MEDS: MYCOPHENOLATE 250 MG CAP PO SCH ×2 (08:26→20:56)
[2017-01-06] MEDS: CLOPIDOGREL 75 MG TAB PO SCH (08:26)
[2017-01-06] MEDS: DOXYCYCLINE 100 MG TAB PO SCH (08:26)
[2017-01-06] MEDS: ASPIRIN (EC) 81 MG TAB PO SCH (08:26)
[2017-01-06] MEDS: DILTIAZEM (CD) 180 MG CAP PO SCH (08:26)
[2017-01-06] MEDS: MEROPENEM 1 GM/50ML(PMX) 50 ML IVPB SCH (08:27)
[2017-01-06] MEDS: FOLIC ACID 1 MG TAB PO SCH (08:27)
[2017-01-06] MEDS: TACROLIMUS 1 MG CAP PO SCH ×2 (08:27→20:55)
[2017-01-06] MEDS: BENAZEPRIL 10 MG TAB PO SCH (08:27)
[2017-01-06] MEDS: GABAPENTIN 100 MG CAP PO SCH ×3 (08:27→20:54)
[2017-01-06] MEDS: CHOLECALCIFEROL 1,000 UNIT TAB PO SCH (08:27)
--- NOTE | 2017-01-06 09:09 | CONS ---
Date/Time of Note Date/Time of Note DATE: 01/06/17 TIME: 09:08 Assessment/Plan Assessment/Plan Additional Assessment/Plan 1.Uxf-[id number] test 10/2016 with no ischemia/only scar/NL EF. Negative trop x 3. Patient is ok to proceed to OR at moderate risk without further noninvasive evaluation on current medications - now on ASA/plavix, stable - UNCHANGED. 2.HTN - modest Rx, will monitpr now - STABLE now - Rx as needed 3.PAD with bilateral gangrene - post op, vascular team follows - CON't WOUND CARE - ID recs noted 4.DM - con't to keep euglycemic. NO hypoglycemia noted. 5.Anemia- H/H stable - no bleed now. - NO BLEEDING 6. PAin - con't pain rx. Consultation Date/Type/Reason Admit Date/Time Dec 26, 2016 at 13:22 Initial Consult Date 12/27/16 Type of Consultation: ID Referring Provider: KRISTIN HALL MD 24 HR Interval Summary Free Text/Dictation NO acute events - BP n good range - con't wound care. ROS: No fever, no chills, no nausea, no vomiting, no diarrhea/constipation No recent weight changes No chest pain, no PND, no orthopnea No dizziness, blurred vision No thirst, no heat or cold intolerance Exam/Review of Systems Vital Signs Vitals Vital Signs Date Time Temp Pulse Resp B/P Pulse Ox O2 Delivery O2 Flow Rate FiO2 01/06/17 02:48 98.2 73 18 137/71 92 Intake and Output 01/05/17 01/05/17 01/06/17 15:00 23:00 07:00 Intake Total 50 ml 300 ml Balance 50 ml 300 ml Exam General: WN/WD/NAD, AOx 3 HEENT: Unicetric/atraumatic/EOMI (follows commands) NECK: JVD elevated, no thyromegaly Lymph: no lymphadenopathy HEART: regular with no S3, II/ systolic murmur at apex LUNGS: Coarse sounds ABD: soft, NT, ND, +BS : Intact Neuro: non focal SKIN: chronic changes EXT: trace edema Results Result Diagram: 01/06/17 0538 01/06/17 0538 Results 24 hrs Laboratory Tests Test 01/05/17 12:07 01/05/17 17:10 01/05/17 20:35 01/06/17 05:38 Bedside Glucose 136 130 123 White Blood Count 10.3 Red Blood Count 3.65 L Hemoglobin 10.2 L Hematocrit 30.6 L Mean Corpuscular Volume 83.8 Mean Corpuscular Hemoglobin 27.9 L Mean Corpuscular Hemoglobin Concent 33.3 Red Cell Distribution Width 13.3 Platelet Count 202 Mean Platelet Volume 11.9 H Neutrophils % 77.8 H Lymphocytes % 9.7 L Monocytes % 11.4 H Eosinophils % 0.6 Basophils % 0.2 Nucleated Red Blood Cells % 0.0 Neutrophils # 8.0 H Lymphocytes # 1.0 Monocytes # 1.2 H Eosinophils # 0.1 Basophils # 0.0 Nucleated Red Blood Cells # 0.0 Sodium Level 129 L Potassium Level 4.0 Chloride Level 100 Carbon Dioxide Level 22 Anion Gap 11 Blood Urea Nitrogen 18 Creatinine 0.70 Glucose Level 78 Calcium Level 9.8 Test 01/06/17 08:26 Bedside Glucose 90 Medications Medications Current Medications Aspirin (Halfprin) 81 mg DAILY PO Last administered on 01/06/17 08:26; Admin Dose 81 MG; Start 12/27/16 at 09:00 Benazepril HCl (Lotensin) 10 mg DAILY PO Last administered on 01/06/17 08:27; Admin Dose 10 MG; Start 12/27/16 at 09:00 Clopidogrel Bisulfate (plaVIX) 75 mg DAILY PO Last administered on 01/06/17 08 :26; Admin Dose 75 MG; Start 12/27/16 at 09:00 Diltiazem HCl (Cardizem Cd) 180 mg DAILY PO Last administered on 01/06/17 08: 26; Admin Dose 180 MG; Start 12/26/16 at 14:00 Doxycycline Hyclate (Vibramycin) 100 mg BID PO Last administered on 01/06/17 08:26; Admin Dose 100 MG; Start 12/26/16 at 21:00 Famotidine (Pepcid) 40 mg HS PO Last administered on 01/05/17 20:57; Admin Dose 40 MG; Start 12/26/16 at 21:00 Folic Acid (Folic Acid) 1 mg DAILY PO Last administered on 01/06/17 08:27; Admin Dose 1 MG; Start 12/27/16 at 09:00 Gabapentin (Neurontin) 100 mg TID PO Last administered on 01/06/17 08:27; Admin Dose 100 MG; Start 12/26/16 at 21:00 Metoprolol Tartrate (Lopressor) 75 mg BID PO Last administered on 01/05/17 20: 56; Admin Dose 75 MG; Start 12/26/16 at 21:00 Mycophenolate Mofetil (Cellcept) 1,000 mg BID PO Last administered on 08:26; Admin Dose 1,000 MG; Start 12/26/16 at 21:00 Tacrolimus (Prograf) 2 mg Q12 PO Last administered on 01/06/17 08:27; Admin Dose 2 MG; Start 12/26/16 at 21:00 Pantoprazole (Protonix Tab) 40 mg DAILY@06 PO Last administered on 01/06/17 05 :32; Admin Dose 40 MG; Start 12/27/16 at 06:00 Morphine Sulfate (morphine) 2 mg Q4H PRN IV PAIN LEVEL 6-10 Last administered on 01/06/17 08:28; Admin Dose 2 MG; Start 12/26/16 at 14:30 Diagnostic Test (Pha) (Accu-Chek) 1 ea 02 XX ; Start 12/27/16 at 02:00 Miscellaneous Information 1 ea NOTE XX ; Start 12/26/16 at 14:30 Glucose (Glutose) 15 gm Q15M PRN PO DECREASED GLUCOSE; Start 12/26/16 at 14:30 Glucose (Glutose) 22.5 gm Q15M PRN PO DECREASED GLUCOSE; Start 12/26/16 at 14:30 Dextrose (D50w Syringe) 25 ml Q15M PRN IV DECREASED GLUCOSE; Start 12/26/16 at 14:30 Dextrose (D50w Syringe) 50 ml Q15M PRN IV DECREASED GLUCOSE; Start 12/26/16 at 14:30 Glucagon (Glucagen) 1 mg Q15M PRN IM DECREASED GLUCOSE; Start 12/26/16 at 14:30 Glucose (Glutose) 15 gm Q15M PRN BUCCAL DECREASED GLUCOSE; Start 12/26/16 at 14: 30 Acetaminophen/ Hydrocodone Bitart ([place] (5/325)) 1 tab Q8 PO Last administered on 01/06/17 05:33; Admin Dose 1 TAB; Start 12/26/16 at 22:00 Cholecalciferol (Vitamin D) 1,000 unit DAILY PO Last administered on 01/06/17 08:27; Admin Dose 1,000 UNIT; Start 12/28/16 at 09:00 Insulin Glargine (Lantus) 7 unit DAILY@20 SC Last administered on 01/05/17 20: 53; Admin Dose 7 UNIT; Start 12/29/16 at 20:00 Ondansetron HCl 4 mg 4 mg Q6H PRN IV NAUSEA AND/OR VOMITING Last administered on 01/01/17 10:00; Admin Dose 4 MG; Start 01/01/17 at 10:00 Meropenem/Sodium Chloride (Merrem 1 Gm/50 ml (Pmx)) 50 ml @ 100 mls/hr Q12 IVPB Last administered on 01/06/17 08:27; Admin Dose 100 MLS/HR; Start at 21:00 MIRELLA MOSER MD Jan 06, 2017 09:09
[2017-01-06] MEDS: METOPROLOL 25 MG TAB PO SCH ×2 (10:03→20:56)
--- NOTE | 2017-01-06 14:11 | CONS ---
Date/Time of Note Date/Time of Note DATE: 01/06/17 TIME: 14:04 Assessment/Plan Assessment/Plan Chief Complaint/Hosp Course SUBJECTIVE DATA: No events overnight. The patient is awake, looks comfortable, complaining of pain. She is afebrile. LABORATORY AND DIAGNOSTIC DATA: reviewed. ANTIMICROBIALS: The patient remains on doxycycline and meropenem. Rt foot cx ESBL PHYSICAL EXAMINATION: This is a fragile, well-developed, elderly woman, who is alert, in no distress. HEENT: Head is atraumatic and normocephalic. Sclerae are anicteric. Buccal mucosa is pink. NECK: Supple. LUNGS: Chest rise is symmetrical. Breath sounds are clear. HEART: S1, S2. ABDOMEN: Soft. Bowel sounds are present. EXTREMITIES: With bilateral foot gangrene. There is an open wound next to her little finger on the right with some drainage. ASSESSMENT: 1. Bilateral lower extremities gangrene secondary to severe peripheral arterial disease, failed debridement and revascularization procedures. 2. Diabetes. 3. History of kidney transplant in 2009, on immunosuppressive therapy. 4. Diabetes. 5. Hypertension. PLAN: The patient remains clinically unchanged. As per vascular note, the patient will require bilateral BKA or AKA. Cleared by cardiology for surgery. D/C doxy, change Meropenem to Invanz. F/U Vascular surgery Recommendations. Problems: Consultation Date/Type/Reason Admit Date/Time Dec 26, 2016 at 13:22 Initial Consult Date 12/27/16 Type of Consultation: ID Referring Provider: KRISTIN HALL MD Exam/Review of Systems Vital Signs Vitals Vital Signs Date Time Temp Pulse Resp B/P Pulse Ox O2 Delivery O2 Flow Rate FiO2 01/06/17 08:00 98.1 81 20 119/70 100 Intake and Output 01/05/17 01/05/17 01/06/17 15:00 23:00 07:00 Intake Total 50 ml 300 ml Balance 50 ml 300 ml Results Result Diagram: 01/06/17 0538 01/06/17 0538 Results 24 hrs Laboratory Tests Test 01/05/17 17:10 01/05/17 20:35 01/06/17 05:38 01/06/17 08:26 Bedside Glucose 130 123 90 White Blood Count 10.3 Red Blood Count 3.65 L Hemoglobin 10.2 L Hematocrit 30.6 L Mean Corpuscular Volume 83.8 Mean Corpuscular Hemoglobin 27.9 L Mean Corpuscular Hemoglobin Concent 33.3 Red Cell Distribution Width 13.3 Platelet Count 202 Mean Platelet Volume 11.9 H Neutrophils % 77.8 H Lymphocytes % 9.7 L Monocytes % 11.4 H Eosinophils % 0.6 Basophils % 0.2 Nucleated Red Blood Cells % 0.0 Neutrophils # 8.0 H Lymphocytes # 1.0 Monocytes # 1.2 H Eosinophils # 0.1 Basophils # 0.0 Nucleated Red Blood Cells # 0.0 Sodium Level 129 L Potassium Level 4.0 Chloride Level 100 Carbon Dioxide Level 22 Anion Gap 11 Blood Urea Nitrogen 18 Creatinine 0.70 Glucose Level 78 Calcium Level 9.8 Test 01/06/17 12:17 Bedside Glucose 127 Medications Medications Current Medications Aspirin (Halfprin) 81 mg DAILY PO Last administered on 01/06/17 08:26; Admin Dose 81 MG; Start 12/27/16 at 09:00 Benazepril HCl (Lotensin) 10 mg DAILY PO Last administered on 01/06/17 08:27; Admin Dose 10 MG; Start 12/27/16 at 09:00 Clopidogrel Bisulfate (plaVIX) 75 mg DAILY PO Last administered on 01/06/17 08 :26; Admin Dose 75 MG; Start 12/27/16 at 09:00 Diltiazem HCl (Cardizem Cd) 180 mg DAILY PO Last administered on 01/06/17 08: 26; Admin Dose 180 MG; Start 12/26/16 at 14:00 Doxycycline Hyclate (Vibramycin) 100 mg BID PO Last administered on 01/06/17 08:26; Admin Dose 100 MG; Start 12/26/16 at 21:00 Famotidine (Pepcid) 40 mg HS PO Last administered on 01/05/17 20:57; Admin Dose 40 MG; Start 12/26/16 at 21:00 Folic Acid (Folic Acid) 1 mg DAILY PO Last administered on 01/06/17 08:27; Admin Dose 1 MG; Start 12/27/16 at 09:00 Gabapentin (Neurontin) 100 mg TID PO Last administered on 01/06/17 12:19; Admin Dose 100 MG; Start 12/26/16 at 21:00 Metoprolol Tartrate (Lopressor) 75 mg BID PO Last administered on 01/06/17 10: 03; Admin Dose 75 MG; Start 12/26/16 at 21:00 Mycophenolate Mofetil (Cellcept) 1,000 mg BID PO Last administered on 08:26; Admin Dose 1,000 MG; Start 12/26/16 at 21:00 Tacrolimus (Prograf) 2 mg Q12 PO Last administered on 01/06/17 08:27; Admin Dose 2 MG; Start 12/26/16 at 21:00 Pantoprazole (Protonix Tab) 40 mg DAILY@06 PO Last administered on 01/06/17 05 :32; Admin Dose 40 MG; Start 12/27/16 at 06:00 Morphine Sulfate (morphine) 2 mg Q4H PRN IV PAIN LEVEL 6-10 Last administered on 01/06/17 12:19; Admin Dose 2 MG; Start 12/26/16 at 14:30 Diagnostic Test (Pha) (Accu-Chek) 1 ea 02 XX ; Start 12/27/16 at 02:00 Miscellaneous Information 1 ea NOTE XX ; Start 12/26/16 at 14:30 Glucose (Glutose) 15 gm Q15M PRN PO DECREASED GLUCOSE; Start 12/26/16 at 14:30 Glucose (Glutose) 22.5 gm Q15M PRN PO DECREASED GLUCOSE; Start 12/26/16 at 14:30 Dextrose (D50w Syringe) 25 ml Q15M PRN IV DECREASED GLUCOSE; Start 12/26/16 at 14:30 Dextrose (D50w Syringe) 50 ml Q15M PRN IV DECREASED GLUCOSE; Start 12/26/16 at 14:30 Glucagon (Glucagen) 1 mg Q15M PRN IM DECREASED GLUCOSE; Start 12/26/16 at 14:30 Glucose (Glutose) 15 gm Q15M PRN BUCCAL DECREASED GLUCOSE; Start 12/26/16 at 14: 30 Acetaminophen/ Hydrocodone Bitart ([place] (5/325)) 1 tab Q8 PO Last administered on 01/06/17 13:52; Admin Dose 1 TAB; Start 12/26/16 at 22:00 Cholecalciferol (Vitamin D) 1,000 unit DAILY PO Last administered on 01/06/17 08:27; Admin Dose 1,000 UNIT; Start 12/28/16 at 09:00 Insulin Glargine (Lantus) 7 unit DAILY@20 SC Last administered on 01/05/17 20: 53; Admin Dose 7 UNIT; Start 12/29/16 at 20:00 Ondansetron HCl 4 mg 4 mg Q6H PRN IV NAUSEA AND/OR VOMITING Last administered on 01/01/17 10:00; Admin Dose 4 MG; Start 01/01/17 at 10:00 Meropenem/Sodium Chloride (Merrem 1 Gm/50 ml (Pmx)) 50 ml @ 100 mls/hr Q12 IVPB Last administered on 01/06/17 08:27; Admin Dose 100 MLS/HR; Start at 21:00 MEMO TORRES Jan 06, 2017 14:11
[2017-01-06] MEDS: ERTAPENEM SODIUM 1 GM in SOD CHLORIDE 0.9% 100 ML IVPB SCH (15:21)
--- NOTE | 2017-01-06 16:52 | PN ---
Date/Time of Note Date/Time of Note DATE: 01/06/17 TIME: 16:47 Assessment/Plan Lines/Catheters IV Catheter Type (from Nrs): Saline Lock [place] in Place (from Nrs): No Assessment/Plan Chief Complaint/Hosp Course -Bilateral lower extremity atherosclerosis with bilateral foot gangrene: It seems that the patient's progression of atherosclerotic disease is still there despite multiple interventions. The patient has developed worsening gangrene of the left first toe and rest pain again. Unfortunately all vascular interventions have been exhausted as she has significant LE atherosclerotic disease and no amenable conduit for a LE bypass. Given our recent endovascular intervention she would likely not benefit from any further interventions. Had a lengthy conversation with the patient about realistic outcomes of limb salvage. Recommend BKA/AKA once the rest pain has become intolerable or develops LE infection/sepsis that threatens her life. -Patient would like to have an amputation. Discussed BKA/AKA risks and benefits. Patient has chosen AKA-as she would like to avoid any wound healing issues and further surgeries on the LLE -Unfortunately she may encounter the same issue with her RLE. However, at the moment no significant rest pain reported -Optimize vascular status (BP medications, diet, nutrition and exercise, sugar control, antiplatelets). -Continue with antibiotics for the gangrene. -Podiatry colleagues are involved with the local wound care and -Cardiology evaluation appreciated -Discussed findings, plan and management with the patient with a certified municipal engineer and she understands. -Thank you for allowing us to partake in the care of your patient. Please call with any questions. Problems: Subjective 24 Hr Interval Summary still having LLE rest pain Exam/Review of Systems Vital Signs Vitals Vital Signs Date Time Temp Pulse Resp B/P Pulse Ox O2 Delivery O2 Flow Rate FiO2 01/06/17 08:00 98.1 81 20 119/70 100 Intake and Output 01/05/17 01/05/17 01/06/17 15:00 23:00 07:00 Intake Total 50 ml 300 ml Balance 50 ml 300 ml Exam Free Text/Dictation Alert and oriented x3 LUNGS: Clear to auscultation bilaterally. CARDIOVASCULAR: S1 and S2 present ABDOMEN: Soft, nontender and nondistended. Bowel sounds positive. Surgical scar well healed. EXTREMITIES: -Right lower extremity faint femoral pulse. Nonpalpable pedal pulse. Motor and sensory intact. Capillary refill 4 seconds. 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 -Left lower extremity faint femoral pulse. Nonpalpable pedal pulse. Motor and sensory intact. Capillary refill 4 seconds. Tenderness and pain of left first toe with gangrene, fourth and fifth toe amputation stump with gangrene. delayed cap refill, Results Result Diagram: 01/06/17 0538 01/06/17 0538 WILD DUARTE MD Jan 06, 2017 16:52
--- NOTE | 2017-01-06 17:27 | CONS ---
Date/Time of Note Date/Time of Note DATE: 01/06/17 TIME: 17:25 Assessment/Plan Assessment/Plan Additional Assessment/Plan 1. 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 2. h/o donor kidney transplant in 2009 at [facility], currently on immunosuppression with Prograf, CellCept 4. 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 History of hypertension. 6. History of diabetes mellitus. 7. History of previous left upper extremity arteriovenous fistula. 8. Hyponatremia due to hypovolemic hyponatremia Plan: continue Current immunosuppression Prograf and cellcept, Cr normal, Na dropped to 129- will give 1 liter NS and reassess Na in am labs IV abx as per ID Renal function currently has been stable 01/04/2017- patient agreed for limb amputation per case managers. awaiting plan ID, vascular surgery and Primary care following on paient. Consultation Date/Type/Reason Admit Date/Time Dec 26, 2016 at 13:22 Initial Consult Date 12/27/16 Type of Consultation: NEPHROLOGY Referring Provider: KRISTIN HALL MD Exam/Review of Systems Vital Signs Vitals Vital Signs Date Time Temp Pulse Resp B/P Pulse Ox O2 Delivery O2 Flow Rate FiO2 01/06/17 08:00 98.1 81 20 119/70 100 Intake and Output 01/05/17 01/05/17 01/06/17 15:00 23:00 07:00 Intake Total 50 ml 300 ml Balance 50 ml 300 ml Exam Constitutional: alert Respiratory: clear to auscultation, diminished breath sounds, normal air movement Cardiovascular: nl pulses, regular rate and rhythm Gastrointestinal: non-tender, soft Extremities: normal pulses, other (Bilateral LE gangrene ) Neurological: NON LICENSED NUCLEAR EQUIPMENT OPERATOR II-XII intact, nl mental status, nl speech, nl strength Results Result Diagram: 01/06/17 0538 01/06/17 0538 Results 24 hrs Laboratory Tests Test 01/05/17 20:35 01/06/17 05:38 01/06/17 08:26 01/06/17 12:17 Bedside Glucose 123 90 127 White Blood Count 10.3 Red Blood Count 3.65 L Hemoglobin 10.2 L Hematocrit 30.6 L Mean Corpuscular Volume 83.8 Mean Corpuscular Hemoglobin 27.9 L Mean Corpuscular Hemoglobin Concent 33.3 Red Cell Distribution Width 13.3 Platelet Count 202 Mean Platelet Volume 11.9 H Neutrophils % 77.8 H Lymphocytes % 9.7 L Monocytes % 11.4 H Eosinophils % 0.6 Basophils % 0.2 Nucleated Red Blood Cells % 0.0 Neutrophils # 8.0 H Lymphocytes # 1.0 Monocytes # 1.2 H Eosinophils # 0.1 Basophils # 0.0 Nucleated Red Blood Cells # 0.0 Sodium Level 129 L Potassium Level 4.0 Chloride Level 100 Carbon Dioxide Level 22 Anion Gap 11 Blood Urea Nitrogen 18 Creatinine 0.70 Glucose Level 78 Calcium Level 9.8 Medications Medications Current Medications Aspirin (Halfprin) 81 mg DAILY PO Last administered on 01/06/17 08:26; Admin Dose 81 MG; Start 12/27/16 at 09:00 Benazepril HCl (Lotensin) 10 mg DAILY PO Last administered on 01/06/17 08:27; Admin Dose 10 MG; Start 12/27/16 at 09:00 Clopidogrel Bisulfate (plaVIX) 75 mg DAILY PO Last administered on 01/06/17 08 :26; Admin Dose 75 MG; Start 12/27/16 at 09:00 Diltiazem HCl (Cardizem Cd) 180 mg DAILY PO Last administered on 01/06/17 08: 26; Admin Dose 180 MG; Start 12/26/16 at 14:00 Famotidine (Pepcid) 40 mg HS PO Last administered on 01/05/17 20:57; Admin Dose 40 MG; Start 12/26/16 at 21:00 Folic Acid (Folic Acid) 1 mg DAILY PO Last administered on 01/06/17 08:27; Admin Dose 1 MG; Start 12/27/16 at 09:00 Gabapentin (Neurontin) 100 mg TID PO Last administered on 01/06/17 12:19; Admin Dose 100 MG; Start 12/26/16 at 21:00 Metoprolol Tartrate (Lopressor) 75 mg BID PO Last administered on 01/06/17 10: 03; Admin Dose 75 MG; Start 12/26/16 at 21:00 Mycophenolate Mofetil (Cellcept) 1,000 mg BID PO Last administered on 08:26; Admin Dose 1,000 MG; Start 12/26/16 at 21:00 Tacrolimus (Prograf) 2 mg Q12 PO Last administered on 01/06/17 08:27; Admin Dose 2 MG; Start 12/26/16 at 21:00 Pantoprazole (Protonix Tab) 40 mg DAILY@06 PO Last administered on 01/06/17 05 :32; Admin Dose 40 MG; Start 12/27/16 at 06:00 Morphine Sulfate (morphine) 2 mg Q4H PRN IV PAIN LEVEL 6-10 Last administered on 01/06/17 12:19; Admin Dose 2 MG; Start 12/26/16 at 14:30 Diagnostic Test (Pha) (Accu-Chek) 1 ea 02 XX ; Start 12/27/16 at 02:00 Miscellaneous Information 1 ea NOTE XX ; Start 12/26/16 at 14:30 Glucose (Glutose) 15 gm Q15M PRN PO DECREASED GLUCOSE; Start 12/26/16 at 14:30 Glucose (Glutose) 22.5 gm Q15M PRN PO DECREASED GLUCOSE; Start 12/26/16 at 14:30 Dextrose (D50w Syringe) 25 ml Q15M PRN IV DECREASED GLUCOSE; Start 12/26/16 at 14:30 Dextrose (D50w Syringe) 50 ml Q15M PRN IV DECREASED GLUCOSE; Start 12/26/16 at 14:30 Glucagon (Glucagen) 1 mg Q15M PRN IM DECREASED GLUCOSE; Start 12/26/16 at 14:30 Glucose (Glutose) 15 gm Q15M PRN BUCCAL DECREASED GLUCOSE; Start 12/26/16 at 14: 30 Acetaminophen/ Hydrocodone Bitart ([place] (5/325)) 1 tab Q8 PO Last administered on 01/06/17 13:52; Admin Dose 1 TAB; Start 12/26/16 at 22:00 Cholecalciferol (Vitamin D) 1,000 unit DAILY PO Last administered on 01/06/17 08:27; Admin Dose 1,000 UNIT; Start 12/28/16 at 09:00 Insulin Glargine (Lantus) 7 unit DAILY@20 SC Last administered on 01/05/17 20: 53; Admin Dose 7 UNIT; Start 12/29/16 at 20:00 Ondansetron HCl 4 mg 4 mg Q6H PRN IV NAUSEA AND/OR VOMITING Last administered on 01/01/17 10:00; Admin Dose 4 MG; Start 01/01/17 at 10:00 Ertapenem 1 gm/ Sodium Chloride 100 ml @ 200 mls/hr Q24H IVPB Last administered on 01/06/17 15:21; Admin Dose 200 MLS/HR; Start 01/06/17 at 14:30 Dextrose/Sodium Chloride (D5-1/2ns) 1,000 ml @ 70 mls/hr [id number] IV ; Start at 00:00 RAMON KEMP MD Jan 06, 2017 17:27
[2017-01-06] MEDS: SOD CHLORIDE 0.9% 1,000 ML IV SCH (17:50)
--- NOTE | 2017-01-06 18:51 | PN ---
Date/Time of Note Date/Time of Note DATE: 01/06/17 TIME: 18:45 Assessment/Plan VTE Prophylaxis VTE Prophylaxis Intervention: SCD's Lines/Catheters [facility] Saline Lock Urinary Cath still in place: No Assessment/Plan Chief Complaint/Hosp Course Patient is sitting in bed eating dinner, blood sugar is well controlled. Problems: Assessment/Plan - Bilateral lower extremities gangrene secondary to severe peripheral arterial disease, failed debridement and multiple revascularization procedures. Plan for left AKA tomorrow by Dr. Valencia. Continue antibiotics per ID. Cleared by cardiology for surgery. - Diabetes mellitus type II. Continue Lantus and NovoLog. - History of kidney transplant in 2009, on immunosuppressive therapy. - Hypertension. 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 - Anemia of chronic kidney disease. Further recommendations based on clinical course. Plan of care discussed with Dr. Cohen Exam/Review of Systems Vital Signs Vitals Vital Signs Date Time Temp Pulse Resp B/P Pulse Ox O2 Delivery O2 Flow Rate FiO2 01/06/17 08:00 98.1 81 20 119/70 100 Intake and Output 01/05/17 01/05/17 01/06/17 15:00 23:00 07:00 Intake Total 50 ml 300 ml Balance 50 ml 300 ml Exam Constitutional: alert Neck: supple Respiratory: clear to auscultation Cardiovascular: nl pulses Gastrointestinal: non-tender, soft Extremities: other (Bilateral feet gangrene) Results Result Diagram: 01/06/17 0538 01/06/17 0538 Results 24 hrs Laboratory Tests Test 01/05/17 20:35 01/06/17 05:38 01/06/17 08:26 01/06/17 12:17 Bedside Glucose 123 90 127 White Blood Count 10.3 Red Blood Count 3.65 L Hemoglobin 10.2 L Hematocrit 30.6 L Mean Corpuscular Volume 83.8 Mean Corpuscular Hemoglobin 27.9 L Mean Corpuscular Hemoglobin Concent 33.3 Red Cell Distribution Width 13.3 Platelet Count 202 Mean Platelet Volume 11.9 H Neutrophils % 77.8 H Lymphocytes % 9.7 L Monocytes % 11.4 H Eosinophils % 0.6 Basophils % 0.2 Nucleated Red Blood Cells % 0.0 Neutrophils # 8.0 H Lymphocytes # 1.0 Monocytes # 1.2 H Eosinophils # 0.1 Basophils # 0.0 Nucleated Red Blood Cells # 0.0 Sodium Level 129 L Potassium Level 4.0 Chloride Level 100 Carbon Dioxide Level 22 Anion Gap 11 Blood Urea Nitrogen 18 Creatinine 0.70 Glucose Level 78 Calcium Level 9.8 Test 01/06/17 17:21 Bedside Glucose 135 Medications Medications Current Medications Aspirin (Halfprin) 81 mg DAILY PO Last administered on 01/06/17 08:26; Admin Dose 81 MG; Start 12/27/16 at 09:00 Benazepril HCl (Lotensin) 10 mg DAILY PO Last administered on 01/06/17 08:27; Admin Dose 10 MG; Start 12/27/16 at 09:00 Clopidogrel Bisulfate (plaVIX) 75 mg DAILY PO Last administered on 01/06/17 08 :26; Admin Dose 75 MG; Start 12/27/16 at 09:00 Diltiazem HCl (Cardizem Cd) 180 mg DAILY PO Last administered on 01/06/17 08: 26; Admin Dose 180 MG; Start 12/26/16 at 14:00 Famotidine (Pepcid) 40 mg HS PO Last administered on 01/05/17 20:57; Admin Dose 40 MG; Start 12/26/16 at 21:00 Folic Acid (Folic Acid) 1 mg DAILY PO Last administered on 01/06/17 08:27; Admin Dose 1 MG; Start 12/27/16 at 09:00 Gabapentin (Neurontin) 100 mg TID PO Last administered on 01/06/17 12:19; Admin Dose 100 MG; Start 12/26/16 at 21:00 Metoprolol Tartrate (Lopressor) 75 mg BID PO Last administered on 01/06/17 10: 03; Admin Dose 75 MG; Start 12/26/16 at 21:00 Mycophenolate Mofetil (Cellcept) 1,000 mg BID PO Last administered on 08:26; Admin Dose 1,000 MG; Start 12/26/16 at 21:00 Tacrolimus (Prograf) 2 mg Q12 PO Last administered on 01/06/17 08:27; Admin Dose 2 MG; Start 12/26/16 at 21:00 Pantoprazole (Protonix Tab) 40 mg DAILY@06 PO Last administered on 01/06/17 05 :32; Admin Dose 40 MG; Start 12/27/16 at 06:00 Morphine Sulfate (morphine) 2 mg Q4H PRN IV PAIN LEVEL 6-10 Last administered on 01/06/17 17:25; Admin Dose 2 MG; Start 12/26/16 at 14:30 Diagnostic Test (Pha) (Accu-Chek) 1 ea 02 XX ; Start 12/27/16 at 02:00 Miscellaneous Information 1 ea NOTE XX ; Start 12/26/16 at 14:30 Glucose (Glutose) 15 gm Q15M PRN PO DECREASED GLUCOSE; Start 12/26/16 at 14:30 Glucose (Glutose) 22.5 gm Q15M PRN PO DECREASED GLUCOSE; Start 12/26/16 at 14:30 Dextrose (D50w Syringe) 25 ml Q15M PRN IV DECREASED GLUCOSE; Start 12/26/16 at 14:30 Dextrose (D50w Syringe) 50 ml Q15M PRN IV DECREASED GLUCOSE; Start 12/26/16 at 14:30 Glucagon (Glucagen) 1 mg Q15M PRN IM DECREASED GLUCOSE; Start 12/26/16 at 14:30 Glucose (Glutose) 15 gm Q15M PRN BUCCAL DECREASED GLUCOSE; Start 12/26/16 at 14: 30 Acetaminophen/ Hydrocodone Bitart ([place] (5/325)) 1 tab Q8 PO Last administered on 01/06/17 13:52; Admin Dose 1 TAB; Start 12/26/16 at 22:00 Cholecalciferol (Vitamin D) 1,000 unit DAILY PO Last administered on 01/06/17 08:27; Admin Dose 1,000 UNIT; Start 12/28/16 at 09:00 Insulin Glargine (Lantus) 7 unit DAILY@20 SC Last administered on 01/05/17 20: 53; Admin Dose 7 UNIT; Start 12/29/16 at 20:00 Ondansetron HCl 4 mg 4 mg Q6H PRN IV NAUSEA AND/OR VOMITING Last administered on 01/01/17 10:00; Admin Dose 4 MG; Start 01/01/17 at 10:00 Ertapenem 1 gm/ Sodium Chloride 100 ml @ 200 mls/hr Q24H IVPB Last administered on 01/06/17 15:21; Admin Dose 200 MLS/HR; Start 01/06/17 at 14:30 Sodium Chloride (NS) 1,000 ml @ 75 mls/hr [id number] IV Last administered on 01/06t 17:50; Admin Dose 75 MLS/HR; Start 01/06/17 at 18:00 LES GILLILAND Jan 06, 2017 18:51
[2017-01-06] MEDS: INSULIN GLARGINE [LANtus] 3 ML PEN SC SCH (20:00)
[2017-01-06 20:48] VITALS: BP 135/68; RESP 18
[2017-01-06] MEDS: FAMOTIDINE 20 MG TAB PO SCH (20:56)
[2017-01-07] MEDS ORDERED: DEXTROSE 5%-0.45% NACL 1,000 ML IV SCH
[2017-01-07] MEDS: ACCU-CHEK XX SCH (02:00)
[2017-01-07] MEDS: morphine 2 MG INJ IV PRN (02:42)
[2017-01-07 02:52] VITALS: BP 145/72; RESP 18
[2017-01-07] MEDS: PANTOPRAZOLE (EC) 40 MG TAB PO SCH (05:50)
[2017-01-07] MEDS: HYDROCODONE/APAP (5/325) TAB PO SCH ×3 (05:51→21:58)
[2017-01-07] MEDS: SOD CHLORIDE 0.9% 1,000 ML IV SCH ×2 (05:51→20:40)
[2017-01-07 05:58] LABS: BASOPHILS % 0.2 % (0.0-2.0); EOSINOPHILS # 0.1 10^3/ul (0.0-0.5); EOSINOPHILS % 0.6 % (0.0-7.0); HEMATOCRIT 32.1 % (37.0-47.0); HEMOGLOBIN 10.7 g/dl (12.0-16.0); LYMPHOCYTES # 1.5 10^3/ul (0.8-2.9); LYMPHOCYTES % 14.3 % (15.0-51.0); MEAN CORPUSCULAR HEMOGLOBIN 28.6 pg (29.0-33.0); MEAN CORPUSCULAR HGB CONC 33.3 g/dl (32.0-37.0); MEAN CORPUSCULAR VOLUME 85.8 fl (82.0-101.0); MEAN PLATELET VOLUME 11.6 fl (7.4-10.4); MONOCYTES % 9.9 % (0.0-11.0); NEUTROPHIL # 7.8 10^3/ul (1.6-7.5); NEUTROPHILS % 74.6 % (39.0-77.0); PLATELET COUNT 234 10^3/UL (140-415); RED BLOOD COUNT 3.74 10^6/ul (4.20-5.40); RED CELL DISTRIBUTION WIDTH 13.6 % (11.5-14.5); WHITE BLOOD COUNT 10.4 10^3/ul (4.8-10.8)
[2017-01-07 06:19] LABS: INR 1.12; PROTIME 14.4 Sec (12.2-14.2); PT RATIO 1.1
[2017-01-07 06:20] LABS: PARTIAL THROMBOPLASTIN TIME 31.5 Sec (25.0-35.0)
[2017-01-07 06:41] LABS: ALBUMIN 3.6 g/dl (3.3-4.9); ALBUMIN/GLOBULIN RATIO 1.24; CALCIUM 9.8 mg/dl (8.4-10.2); CREATININE 0.76 mg/dl (0.44-1.00); TOTAL PROTEIN 6.5 g/dl (6.1-8.1)
[2017-01-07] MEDS ORDERED: LORAZEPAM 2 MG INJ IV STA (07:26)
[2017-01-07] MEDS: INSULIN ASPART [NOVOLOG] 3 ML PEN SC SCH ×4 (07:36→20:56)
[2017-01-07] MEDS ORDERED: LORAZEPAM 2 MG INJ ONE (07:55)
[2017-01-07] MEDS: FOLIC ACID 1 MG TAB PO SCH (08:04)
[2017-01-07] MEDS: TACROLIMUS 1 MG CAP PO SCH ×2 (08:04→20:55)
[2017-01-07 08:05] VITALS: BP 138/67; RESP 21
[2017-01-07] MEDS: METOPROLOL 25 MG TAB PO SCH ×2 (08:05→20:56)
[2017-01-07] MEDS: CHOLECALCIFEROL 1,000 UNIT TAB PO SCH (08:05)
[2017-01-07] MEDS: GABAPENTIN 100 MG CAP PO SCH ×3 (08:05→20:55)
[2017-01-07] MEDS: CLOPIDOGREL 75 MG TAB PO SCH (08:06)
[2017-01-07] MEDS: ASPIRIN (EC) 81 MG TAB PO SCH (08:06)
[2017-01-07] MEDS: DILTIAZEM (CD) 180 MG CAP PO SCH (08:06)
[2017-01-07] MEDS: MYCOPHENOLATE 250 MG CAP PO SCH ×2 (08:06→20:55)
--- NOTE | 2017-01-07 09:10 | CONS ---
Date/Time of Note Date/Time of Note DATE: 01/07/17 TIME: 09:08 Assessment/Plan Assessment/Plan Additional Assessment/Plan 1.[id number] test 10/2016 with no ischemia/only scar/NL EF. Negative trop x 3. Patient is ok to proceed to OR at moderate risk without further noninvasive evaluation on current medications - now on ASA/plavix, stable - UNCHANGED. 2.HTN - modest Rx, will monitpr now - STABLE now - Rx as needed - WELL RX. 3.PAD with bilateral gangrene - post op, vascular team follows - CON't WOUND CARE - ID recs noted - able to ambulate with some assistance. 4.DM - con't to keep euglycemic. NO hypoglycemia noted. 5.Anemia- H/H stable - no bleed now. - NO BLEEDING 6. PAin - con't pain rx. BETTER NOw./ Consultation Date/Type/Reason Admit Date/Time Dec 26, 2016 at 13:22 Initial Consult Date 12/27/16 Type of Consultation: NEPHROLOGY Referring Provider: KRISTIN HALL MD 24 HR Interval Summary Free Text/Dictation NO acute events - stable overall - will follow. ROS: No fever, no chills, no nausea, no vomiting, no diarrhea/constipation No recent weight changes No chest pain, no PND, no orthopnea No dizziness, blurred vision No thirst, no heat or cold intolerance Exam/Review of Systems Vital Signs Vitals Vital Signs Date Time Temp Pulse Resp B/P Pulse Ox O2 Delivery O2 Flow Rate FiO2 01/07/17 08:05 98.1 73 21 138/67 100 Intake and Output 01/06/17 01/06/17 01/07/17 15:00 23:00 07:00 Intake Total 50 ml 580 ml 2050 ml Output Total 1000 ml Balance 50 ml -420 ml 2050 ml Exam General: WN/WD/NAD, AOx 3 HEENT: Unicetric/atraumatic/EOMI ( follow commands) NECK: JVD elevated, no thyromegaly Lymph: no lymphadenopathy HEART: regular with no S3, II/ systolic murmur at apex LUNGS: Coarse sounds ABD: soft, NT, ND, +BS : Intact Neuro: non focal SKIN: chronic changes EXT: trace edema, wounds, pad Results Result Diagram: 01/07/1752901/07/17529 Results 24 hrs Laboratory Tests Test 01/06/17 12:17 01/06/17 17:21 01/06/17 20:51 01/07/17 05:30 Bedside Glucose 127 135 105 White Blood Count 10.4 Red Blood Count 3.74 L Hemoglobin 10.7 L Hematocrit 32.1 L Mean Corpuscular Volume 85.8 Mean Corpuscular Hemoglobin 28.6 L Mean Corpuscular Hemoglobin Concent 33.3 Red Cell Distribution Width 13.6 Platelet Count 234 Mean Platelet Volume 11.6 H Neutrophils % 74.6 Lymphocytes % 14.3 L Monocytes % 9.9 Eosinophils % 0.6 Basophils % 0.2 Nucleated Red Blood Cells % 0.0 Neutrophils # 7.8 H Lymphocytes # 1.5 Monocytes # 1.0 H Eosinophils # 0.1 Basophils # 0.0 Nucleated Red Blood Cells # 0.0 Prothrombin Time 14.4 H Prothrombin Time Ratio 1.1 INR International Normalized Ratio 1.12 Activated Partial Thromboplast Time 31.5 Sodium Level 133 L Potassium Level 4.0 Chloride Level 101 Carbon Dioxide Level 22 Anion Gap 14 Blood Urea Nitrogen 16 Creatinine 0.76 Glucose Level 136 # Calcium Level 9.8 Total Bilirubin 0.0 L Direct Bilirubin 0.00 Indirect Bilirubin 0.0 Aspartate Amino Transf (AST/SGOT) 22 Alanine Aminotransferase (ALT/SGPT) 28 Alkaline Phosphatase 146 H Total Protein 6.5 Albumin 3.6 Globulin 2.90 Albumin/Globulin Ratio 1.24 Medications Medications Current Medications Aspirin (Halfprin) 81 mg DAILY PO Last administered on 01/07/17 08:06; Admin Dose 81 MG; Start 12/27/16 at 09:00 Benazepril HCl (Lotensin) 10 mg DAILY PO Last administered on 01/06/17 08:27; Admin Dose 10 MG; Start 12/27/16 at 09:00 Clopidogrel Bisulfate (plaVIX) 75 mg DAILY PO Last administered on 01/07/17 08 :06; Admin Dose 75 MG; Start 12/27/16 at 09:00 Diltiazem HCl (Cardizem Cd) 180 mg DAILY PO Last administered on 01/07/17 08: 06; Admin Dose 180 MG; Start 12/26/16 at 14:00 Famotidine (Pepcid) 40 mg HS PO Last administered on 01/06/17 20:56; Admin Dose 40 MG; Start 12/26/16 at 21:00 Folic Acid (Folic Acid) 1 mg DAILY PO Last administered on 01/07/17 08:04; Admin Dose 1 MG; Start 12/27/16 at 09:00 Gabapentin (Neurontin) 100 mg TID PO Last administered on 01/07/17 08:05; Admin Dose 100 MG; Start 12/26/16 at 21:00 Metoprolol Tartrate (Lopressor) 75 mg BID PO Last administered on 01/07/17 08: 05; Admin Dose 75 MG; Start 12/26/16 at 21:00 Mycophenolate Mofetil (Cellcept) 1,000 mg BID PO Last administered on 08:06; Admin Dose 1,000 MG; Start 12/26/16 at 21:00 Tacrolimus (Prograf) 2 mg Q12 PO Last administered on 01/07/17 08:04; Admin Dose 2 MG; Start 12/26/16 at 21:00 Pantoprazole (Protonix Tab) 40 mg DAILY@06 PO Last administered on 01/07/17 05 :50; Admin Dose 40 MG; Start 12/27/16 at 06:00 Morphine Sulfate (morphine) 2 mg Q4H PRN IV PAIN LEVEL 6-10 Last administered on 01/07/17 02:42; Admin Dose 2 MG; Start 12/26/16 at 14:30 Diagnostic Test (Pha) (Accu-Chek) 1 ea 02 XX ; Start 12/27/16 at 02:00 Miscellaneous Information 1 ea NOTE XX ; Start 12/26/16 at 14:30 Glucose (Glutose) 15 gm Q15M PRN PO DECREASED GLUCOSE; Start 12/26/16 at 14:30 Glucose (Glutose) 22.5 gm Q15M PRN PO DECREASED GLUCOSE; Start 12/26/16 at 14:30 Dextrose (D50w Syringe) 25 ml Q15M PRN IV DECREASED GLUCOSE; Start 12/26/16 at 14:30 Dextrose (D50w Syringe) 50 ml Q15M PRN IV DECREASED GLUCOSE; Start 12/26/16 at 14:30 Glucagon (Glucagen) 1 mg Q15M PRN IM DECREASED GLUCOSE; Start 12/26/16 at 14:30 Glucose (Glutose) 15 gm Q15M PRN BUCCAL DECREASED GLUCOSE; Start 12/26/16 at 14: 30 Acetaminophen/ Hydrocodone Bitart ([place] (5/325)) 1 tab Q8 PO Last administered on 01/07/17 05:51; Admin Dose 1 TAB; Start 12/26/16 at 22:00 Cholecalciferol (Vitamin D) 1,000 unit DAILY PO Last administered on 01/07/17 08:05; Admin Dose 1,000 UNIT; Start 12/28/16 at 09:00 Insulin Glargine (Lantus) 7 unit DAILY@20 SC Last administered on 01/05/17 20: 53; Admin Dose 7 UNIT; Start 12/29/16 at 20:00 Ondansetron HCl 4 mg 4 mg Q6H PRN IV NAUSEA AND/OR VOMITING Last administered on 01/01/17 10:00; Admin Dose 4 MG; Start 01/01/17 at 10:00 Ertapenem 1 gm/ Sodium Chloride 100 ml @ 200 mls/hr Q24H IVPB Last administered on 01/06/17 15:21; Admin Dose 200 MLS/HR; Start 01/06/17 at 14:30 Sodium Chloride (NS) 1,000 ml @ 75 mls/hr [id number] IV Last administered on 01/07 05:51; Admin Dose 75 MLS/HR; Start 01/06/17 at 18:00 MIRELLA MOSER MD Jan 07, 2017 09:10
[2017-01-07] MEDS: BENAZEPRIL 10 MG TAB PO SCH (09:20)
[2017-01-07] MEDS ORDERED: POLYMYXIN/BACITRACIN 1L IRRIG ONE (12:07)
--- NOTE | 2017-01-07 13:21 | PN ---
Date/Time of Note Date/Time of Note DATE: 01/07/17 TIME: 13:20 Assessment/Plan Lines/Catheters IV Catheter Type (from Nrs): Saline Lock [place] in Place (from Nrs): No Assessment/Plan Chief Complaint/Hosp Course -Bilateral lower extremity atherosclerosis with bilateral foot gangrene: It seems that the patient's progression of atherosclerotic disease is still there despite multiple interventions. The patient has developed worsening gangrene of the left first toe and rest pain again. Unfortunately all vascular interventions have been exhausted as she has significant LE atherosclerotic disease and no amenable conduit for a LE bypass. Given our recent endovascular intervention she would likely not benefit from any further interventions. Had a lengthy conversation with the patient about realistic outcomes of limb salvage. Recommend BKA/AKA once the rest pain has become intolerable or develops LE infection/sepsis that threatens her life. -Patient would like to have an amputation. Discussed BKA/AKA risks and benefits. Patient has chosen AKA-as she would like to avoid any wound healing issues and further surgeries of the LLE. Will await for patient to mentate well prior to surgery -Unfortunately she may encounter the same issue with her RLE. However, at the moment no significant rest pain reported -Optimize vascular status (BP medications, diet, nutrition and exercise, sugar control, antiplatelets). -Continue with antibiotics for the gangrene. -Podiatry colleagues are involved with the local wound care -Cardiology evaluation appreciated -Discussed findings, plan and management with the patient with a certified nutritionists and she understands. -Thank you for allowing us to partake in the care of your patient. Please call with any questions. Problems: Subjective 24 Hr Interval Summary patient not mentating well this morning Exam/Review of Systems Vital Signs Vitals Vital Signs Date Time Temp Pulse Resp B/P Pulse Ox O2 Delivery O2 Flow Rate FiO2 01/07/17 08:05 98.1 73 21 138/67 100 Intake and Output 01/06/17 01/06/17 01/07/17 15:00 23:00 07:00 Intake Total 50 ml 580 ml 2050 ml Output Total 1000 ml Balance 50 ml -420 ml 2050 ml Exam Free Text/Dictation Alert and oriented x3 LUNGS: Clear to auscultation bilaterally. CARDIOVASCULAR: S1 and S2 present ABDOMEN: Soft, nontender and nondistended. Bowel sounds positive. Surgical scar well healed. EXTREMITIES: -Right lower extremity faint femoral pulse. Nonpalpable pedal pulse. Motor and sensory intact. Capillary refill 4 seconds. 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 -Left lower extremity faint femoral pulse. Nonpalpable pedal pulse. Motor and sensory intact. Capillary refill 4 seconds. Tenderness and pain of left first toe with gangrene, fourth and fifth toe amputation stump with gangrene. delayed cap refill, Results Result Diagram: 01/07/17 0530 01/07/17 0530 WILD DUARTE MD Jan 07, 2017 13:21
[2017-01-07] MEDS: ERTAPENEM SODIUM 1 GM in SOD CHLORIDE 0.9% 100 ML IVPB SCH (13:43)
--- NOTE | 2017-01-07 14:17 | CONS ---
Date/Time of Note Date/Time of Note DATE: 01/07/17 TIME: 14:16 Assessment/Plan Assessment/Plan Additional Assessment/Plan 1. 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 2. h/o donor kidney transplant in 2009 at [facility], currently on immunosuppression with Prograf, CellCept 4. 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 History of hypertension. 6. History of diabetes mellitus. 7. History of previous left upper extremity arteriovenous fistula. 8. Hyponatremia due to hypovolemic hyponatremia Plan: continue Current immunosuppression Prograf and cellcept, Cr normal, Na dropped to 129 yesteday- with 1liter NS- now Na 133 IV abx as per ID Renal function currently has been stable ID, vascular surgery and Primary care following on paient. Consultation Date/Type/Reason Admit Date/Time Dec 26, 2016 at 13:22 Initial Consult Date 12/27/16 Type of Consultation: NEPHROLOGY Referring Provider: KRISTIN HALL MD Exam/Review of Systems Vital Signs Vitals Vital Signs Date Time Temp Pulse Resp B/P Pulse Ox O2 Delivery O2 Flow Rate FiO2 01/07/17 08:05 98.1 73 21 138/67 100 Intake and Output 01/06/17 01/06/17 01/07/17 15:00 23:00 07:00 Intake Total 50 ml 580 ml 2050 ml Output Total 1000 ml Balance 50 ml -420 ml 2050 ml Exam Constitutional: alert Psych: no complaints Head: normocephalic ENMT: nl external ears & nose Neck: non-tender, supple Respiratory: clear to auscultation, diminished breath sounds, normal air movement Cardiovascular: regular rate and rhythm Gastrointestinal: non-tender, soft Neurological: CASH POSTER II-XII intact Results Result Diagram: 01/07/17 0530 01/07/17 0530 Results 24 hrs Laboratory Tests Test 01/06/17 17:21 01/06/17 20:51 01/07/17 05:30 01/07/17 07:35 Bedside Glucose 135 105 117 White Blood Count 10.4 Red Blood Count 3.74 L Hemoglobin 10.7 L Hematocrit 32.1 L Mean Corpuscular Volume 85.8 Mean Corpuscular Hemoglobin 28.6 L Mean Corpuscular Hemoglobin Concent 33.3 Red Cell Distribution Width 13.6 Platelet Count 234 Mean Platelet Volume 11.6 H Neutrophils % 74.6 Lymphocytes % 14.3 L Monocytes % 9.9 Eosinophils % 0.6 Basophils % 0.2 Nucleated Red Blood Cells % 0.0 Neutrophils # 7.8 H Lymphocytes # 1.5 Monocytes # 1.0 H Eosinophils # 0.1 Basophils # 0.0 Nucleated Red Blood Cells # 0.0 Prothrombin Time 14.4 H Prothrombin Time Ratio 1.1 INR International Normalized Ratio 1.12 Activated Partial Thromboplast Time 31.5 Sodium Level 133 L Potassium Level 4.0 Chloride Level 101 Carbon Dioxide Level 22 Anion Gap 14 Blood Urea Nitrogen 16 Creatinine 0.76 Glucose Level 136 # Calcium Level 9.8 Total Bilirubin 0.0 L Direct Bilirubin 0.00 Indirect Bilirubin 0.0 Aspartate Amino Transf (AST/SGOT) 22 Alanine Aminotransferase (ALT/SGPT) 28 Alkaline Phosphatase 146 H Total Protein 6.5 Albumin 3.6 Globulin 2.90 Albumin/Globulin Ratio 1.24 Test 01/07/17 09:25 01/07/17 11:43 Bedside Glucose 101 124 Medications Medications Current Medications Aspirin (Halfprin) 81 mg DAILY PO Last administered on 01/07/17 08:06; Admin Dose 81 MG; Start 12/27/16 at 09:00 Benazepril HCl (Lotensin) 10 mg DAILY PO Last administered on 01/07/17 09:20; Admin Dose 10 MG; Start 12/27/16 at 09:00 Clopidogrel Bisulfate (plaVIX) 75 mg DAILY PO Last administered on 01/07/17 08 :06; Admin Dose 75 MG; Start 12/27/16 at 09:00 Diltiazem HCl (Cardizem Cd) 180 mg DAILY PO Last administered on 01/07/17 08: 06; Admin Dose 180 MG; Start 12/26/16 at 14:00 Famotidine (Pepcid) 40 mg HS PO Last administered on 01/06/17 20:56; Admin Dose 40 MG; Start 12/26/16 at 21:00 Folic Acid (Folic Acid) 1 mg DAILY PO Last administered on 01/07/17 08:04; Admin Dose 1 MG; Start 12/27/16 at 09:00 Gabapentin (Neurontin) 100 mg TID PO Last administered on 01/07/17 13:43; Admin Dose 100 MG; Start 12/26/16 at 21:00 Metoprolol Tartrate (Lopressor) 75 mg BID PO Last administered on 01/07/17 08: 05; Admin Dose 75 MG; Start 12/26/16 at 21:00 Mycophenolate Mofetil (Cellcept) 1,000 mg BID PO Last administered on 08:06; Admin Dose 1,000 MG; Start 12/26/16 at 21:00 Tacrolimus (Prograf) 2 mg Q12 PO Last administered on 01/07/17 08:04; Admin Dose 2 MG; Start 12/26/16 at 21:00 Pantoprazole (Protonix Tab) 40 mg DAILY@06 PO Last administered on 01/07/17 05 :50; Admin Dose 40 MG; Start 12/27/16 at 06:00 Morphine Sulfate (morphine) 2 mg Q4H PRN IV PAIN LEVEL 6-10 Last administered on 01/07/17 02:42; Admin Dose 2 MG; Start 12/26/16 at 14:30 Diagnostic Test (Pha) (Accu-Chek) 1 ea 02 XX ; Start 12/27/16 at 02:00 Miscellaneous Information 1 ea NOTE XX ; Start 12/26/16 at 14:30 Glucose (Glutose) 15 gm Q15M PRN PO DECREASED GLUCOSE; Start 12/26/16 at 14:30 Glucose (Glutose) 22.5 gm Q15M PRN PO DECREASED GLUCOSE; Start 12/26/16 at 14:30 Dextrose (D50w Syringe) 25 ml Q15M PRN IV DECREASED GLUCOSE; Start 12/26/16 at 14:30 Dextrose (D50w Syringe) 50 ml Q15M PRN IV DECREASED GLUCOSE; Start 12/26/16 at 14:30 Glucagon (Glucagen) 1 mg Q15M PRN IM DECREASED GLUCOSE; Start 12/26/16 at 14:30 Glucose (Glutose) 15 gm Q15M PRN BUCCAL DECREASED GLUCOSE; Start 12/26/16 at 14: 30 Acetaminophen/ Hydrocodone Bitart ([place] (5/325)) 1 tab Q8 PO Last administered on 01/07/17 05:51; Admin Dose 1 TAB; Start 12/26/16 at 22:00 Cholecalciferol (Vitamin D) 1,000 unit DAILY PO Last administered on 01/07/17 08:05; Admin Dose 1,000 UNIT; Start 12/28/16 at 09:00 Insulin Glargine (Lantus) 7 unit DAILY@20 SC Last administered on 01/05/17 20: 53; Admin Dose 7 UNIT; Start 12/29/16 at 20:00 Ondansetron HCl 4 mg 4 mg Q6H PRN IV NAUSEA AND/OR VOMITING Last administered on 01/01/17 10:00; Admin Dose 4 MG; Start 01/01/17 at 10:00 Ertapenem 1 gm/ Sodium Chloride 100 ml @ 200 mls/hr Q24H IVPB Last administered on 01/07/17 13:43; Admin Dose 200 MLS/HR; Start 01/06/17 at 14:30 Sodium Chloride (NS) 1,000 ml @ 75 mls/hr [id number] IV Last administered on 01/07 05:51; Admin Dose 75 MLS/HR; Start 01/06/17 at 18:00 RAMON KEMP MD Jan 07, 2017 14:17
--- NOTE | 2017-01-07 17:39 | RADRPT ---
PROCEDURE: CT Brain without contrast. CLINICAL INDICATION: Altered level of consciousness. TECHNIQUE: A CT of the brain without contrast was performed utilizing axial sections from the skul l base through the vertex. The patient was scanned without intravenous contrast enhancement. [place] l and coronal reformatted images were obtained using the data from the axial images. Total exam DLP is 720.23 mGy-cm. CTDIvol is 44.77 mGy. One or more of the following dose reduction techniques were used: Automated exposure control, adjustment of the mA and/or kV according to patient size, use of iterative reconstruction technique. COMPARISON: None available. FINDINGS: There is normal [place]-white matter differentiation. There is enlargement of the ventricles and subarachnoid spaces consistent with atrophy. There may b e bilateral frontal subdural hygromas with minimal mass effect. There is no midline shift. There is decreased attenuation of the periventricular white matter consistent with microangiopathic ischemic change. There is no intracranial hemorrhage or space-occupying lesion. There are vascular calcifications consistent with atherosclerosis. There is no skull fracture or lytic lesion. IMPRESSION: 1. Atrophy. 2. Microangiopathic ischemic change. 3. Atherosclerosis. 4. Possible bilateral frontal subdural hygromas with minimal mass effect. 5. No midline shift. 6. Otherwise unremarkable noncontrast CT scan of the brain. RPTAT: QQ .Hernan Baker MD, Date Time Electronically viewed and signed by .Hernan Baker MD, on 01/07/2017 17:39 .R/
--- NOTE | 2017-01-07 17:50 | PN ---
Date/Time of Note Date/Time of Note DATE: 01/07/17 TIME: 17:46 Assessment/Plan VTE Prophylaxis VTE Prophylaxis Intervention: SCD's Lines/Catheters IV [facility] Saline Lock Urinary Cath still in place: No Assessment/Plan Chief Complaint/Hosp Course Patient was very anxious in AM, patient supposed to undergo left AKA today, patient was experiencing hallucination according to family, procedure is on hold , will obtain CT of the brain. Assessment/Plan - Bilateral lower extremities gangrene secondary to severe peripheral arterial disease, failed debridement and multiple revascularization procedures. Plan for left AKA by Dr. Valencia. Continue antibiotics per ID. Cleared by cardiology for surgery. - Diabetes mellitus type II. Continue Lantus and NovoLog. - History of kidney transplant in 2009, on immunosuppressive therapy. - Hypertension. 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 - Anemia of chronic kidney disease. Further recommendations based on clinical course. Plan of care discussed with Dr. Cohen Problems: Exam/Review of Systems Vital Signs Vitals Vital Signs Date Time Temp Pulse Resp B/P Pulse Ox O2 Delivery O2 Flow Rate FiO2 01/07/17 08:05 98.1 73 21 138/67 100 Intake and Output 01/06/17 01/06/17 01/07/17 15:00 23:00 07:00 Intake Total 50 ml 580 ml 2050 ml Output Total 1000 ml Balance 50 ml -420 ml 2050 ml Exam Constitutional: confused Neck: supple Respiratory: clear to auscultation Cardiovascular: nl pulses Gastrointestinal: non-tender, soft Extremities: other (Bilateral feet gangrene) Results Result Diagram: 01/07/17 0530 01/07/17 0530 Results 24 hrs Laboratory Tests Test 01/06/17 20:51 01/07/17 05:30 01/07/17 07:35 01/07/17 09:25 Bedside Glucose 105 117 101 White Blood Count 10.4 Red Blood Count 3.74 L Hemoglobin 10.7 L Hematocrit 32.1 L Mean Corpuscular Volume 85.8 Mean Corpuscular Hemoglobin 28.6 L Mean Corpuscular Hemoglobin Concent 33.3 Red Cell Distribution Width 13.6 Platelet Count 234 Mean Platelet Volume 11.6 H Neutrophils % 74.6 Lymphocytes % 14.3 L Monocytes % 9.9 Eosinophils % 0.6 Basophils % 0.2 Nucleated Red Blood Cells % 0.0 Neutrophils # 7.8 H Lymphocytes # 1.5 Monocytes # 1.0 H Eosinophils # 0.1 Basophils # 0.0 Nucleated Red Blood Cells # 0.0 Prothrombin Time 14.4 H Prothrombin Time Ratio 1.1 INR International Normalized Ratio 1.12 Activated Partial Thromboplast Time 31.5 Sodium Level 133 L Potassium Level 4.0 Chloride Level 101 Carbon Dioxide Level 22 Anion Gap 14 Blood Urea Nitrogen 16 Creatinine 0.76 Glucose Level 136 # Calcium Level 9.8 Total Bilirubin 0.0 L Direct Bilirubin 0.00 Indirect Bilirubin 0.0 Aspartate Amino Transf (AST/SGOT) 22 Alanine Aminotransferase (ALT/SGPT) 28 Alkaline Phosphatase 146 H Total Protein 6.5 Albumin 3.6 Globulin 2.90 Albumin/Globulin Ratio 1.24 Test 01/07/17 11:43 01/07/17 17:30 Bedside Glucose 124 124 Medications Medications Current Medications Aspirin (Halfprin) 81 mg DAILY PO Last administered on 01/07/17 08:06; Admin Dose 81 MG; Start 12/27/16 at 09:00 Benazepril HCl (Lotensin) 10 mg DAILY PO Last administered on 01/07/17 09:20; Admin Dose 10 MG; Start 12/27/16 at 09:00 Clopidogrel Bisulfate (plaVIX) 75 mg DAILY PO Last administered on 01/07/17 08 :06; Admin Dose 75 MG; Start 12/27/16 at 09:00 Diltiazem HCl (Cardizem Cd) 180 mg DAILY PO Last administered on 01/07/17 08: 06; Admin Dose 180 MG; Start 12/26/16 at 14:00 Famotidine (Pepcid) 40 mg HS PO Last administered on 01/06/17 20:56; Admin Dose 40 MG; Start 12/26/16 at 21:00 Folic Acid (Folic Acid) 1 mg DAILY PO Last administered on 01/07/17 08:04; Admin Dose 1 MG; Start 12/27/16 at 09:00 Gabapentin (Neurontin) 100 mg TID PO Last administered on 01/07/17 13:43; Admin Dose 100 MG; Start 12/26/16 at 21:00 Metoprolol Tartrate (Lopressor) 75 mg BID PO Last administered on 01/07/17 08: 05; Admin Dose 75 MG; Start 12/26/16 at 21:00 Mycophenolate Mofetil (Cellcept) 1,000 mg BID PO Last administered on 08:06; Admin Dose 1,000 MG; Start 12/26/16 at 21:00 Tacrolimus (Prograf) 2 mg Q12 PO Last administered on 01/07/17 08:04; Admin Dose 2 MG; Start 12/26/16 at 21:00 Pantoprazole (Protonix Tab) 40 mg DAILY@06 PO Last administered on 01/07/17 05 :50; Admin Dose 40 MG; Start 12/27/16 at 06:00 Morphine Sulfate (morphine) 2 mg Q4H PRN IV PAIN LEVEL 6-10 Last administered on 01/07/17 02:42; Admin Dose 2 MG; Start 12/26/16 at 14:30 Diagnostic Test (Pha) (Accu-Chek) 1 ea 02 XX ; Start 12/27/16 at 02:00 Miscellaneous Information 1 ea NOTE XX ; Start 12/26/16 at 14:30 Glucose (Glutose) 15 gm Q15M PRN PO DECREASED GLUCOSE; Start 12/26/16 at 14:30 Glucose (Glutose) 22.5 gm Q15M PRN PO DECREASED GLUCOSE; Start 12/26/16 at 14:30 Dextrose (D50w Syringe) 25 ml Q15M PRN IV DECREASED GLUCOSE; Start 12/26/16 at 14:30 Dextrose (D50w Syringe) 50 ml Q15M PRN IV DECREASED GLUCOSE; Start 12/26/16 at 14:30 Glucagon (Glucagen) 1 mg Q15M PRN IM DECREASED GLUCOSE; Start 12/26/16 at 14:30 Glucose (Glutose) 15 gm Q15M PRN BUCCAL DECREASED GLUCOSE; Start 12/26/16 at 14: 30 Acetaminophen/ Hydrocodone Bitart ([place] (5/325)) 1 tab Q8 PO Last administered on 01/07/17 05:51; Admin Dose 1 TAB; Start 12/26/16 at 22:00 Cholecalciferol (Vitamin D) 1,000 unit DAILY PO Last administered on 01/07/17 08:05; Admin Dose 1,000 UNIT; Start 12/28/16 at 09:00 Insulin Glargine (Lantus) 7 unit DAILY@20 SC Last administered on 01/05/17 20: 53; Admin Dose 7 UNIT; Start 12/29/16 at 20:00 Ondansetron HCl 4 mg 4 mg Q6H PRN IV NAUSEA AND/OR VOMITING Last administered on 01/01/17 10:00; Admin Dose 4 MG; Start 01/01/17 at 10:00 Ertapenem 1 gm/ Sodium Chloride 100 ml @ 200 mls/hr Q24H IVPB Last administered on 01/07/17 13:43; Admin Dose 200 MLS/HR; Start 01/06/17 at 14:30 Sodium Chloride (NS) 1,000 ml @ 75 mls/hr [id number] IV Last administered on 01/07 05:51; Admin Dose 75 MLS/HR; Start 01/06/17 at 18:00 LES GILLILAND Jan 07, 2017 17:50
[2017-01-07] MEDS: INSULIN GLARGINE [LANtus] 3 ML PEN SC SCH (20:54)
[2017-01-07] MEDS: FAMOTIDINE 20 MG TAB PO SCH (20:55)
[2017-01-07 21:19] VITALS: BP 161/80; RESP 20
[2017-01-08] MEDS: HALOPERIDOL 5 MG INJ IM PRN ×2 (01:30→22:46)
[2017-01-08] MEDS: ACCU-CHEK XX SCH (02:00)
[2017-01-08 03:32] VITALS: BP 145/73; RESP 18
[2017-01-08 05:37] LABS: BASOPHILS % 0.2 % (0.0-2.0); EOSINOPHILS % 0.2 % (0.0-7.0); HEMATOCRIT 32.3 % (37.0-47.0); HEMOGLOBIN 10.5 g/dl (12.0-16.0); LYMPHOCYTES % 8.3 % (15.0-51.0); MEAN CORPUSCULAR HEMOGLOBIN 27.1 pg (29.0-33.0); MEAN CORPUSCULAR HGB CONC 32.5 g/dl (32.0-37.0); MEAN CORPUSCULAR VOLUME 83.2 fl (82.0-101.0); MEAN PLATELET VOLUME 11.8 fl (7.4-10.4); MONOCYTE # 1.2 10^3/ul (0.3-0.9); MONOCYTES % 9.9 % (0.0-11.0); NEUTROPHIL # 9.9 10^3/ul (1.6-7.5); NEUTROPHILS % 81.2 % (39.0-77.0); PLATELET COUNT 276 10^3/UL (140-415); RED BLOOD COUNT 3.88 10^6/ul (4.20-5.40); RED CELL DISTRIBUTION WIDTH 13.7 % (11.5-14.5); WHITE BLOOD COUNT 12.2 10^3/ul (4.8-10.8)
[2017-01-08] MEDS: HYDROCODONE/APAP (5/325) TAB PO SCH ×4 (06:00→22:00)
[2017-01-08] MEDS: PANTOPRAZOLE (EC) 40 MG TAB PO SCH (06:02)
[2017-01-08 06:30] LABS: CALCIUM 9.9 mg/dl (8.4-10.2); CREATININE 0.53 mg/dl (0.44-1.00); POTASSIUM 3.8 mmol/L (3.5-5.1)
[2017-01-08 07:18] VITALS: BP 152/88; RESP 20
[2017-01-08] MEDS: INSULIN ASPART [NOVOLOG] 3 ML PEN SC SCH ×4 (08:00→20:16)
[2017-01-08] MEDS: TACROLIMUS 1 MG CAP PO SCH ×2 (09:20→20:15)
[2017-01-08] MEDS: CHOLECALCIFEROL 1,000 UNIT TAB PO SCH (09:21)
[2017-01-08] MEDS: ASPIRIN (EC) 81 MG TAB PO SCH (09:21)
[2017-01-08] MEDS: MYCOPHENOLATE 250 MG CAP PO SCH ×2 (09:21→20:15)
[2017-01-08] MEDS: GABAPENTIN 100 MG CAP PO SCH ×3 (09:21→20:16)
[2017-01-08] MEDS: CLOPIDOGREL 75 MG TAB PO SCH (09:21)
[2017-01-08] MEDS: METOPROLOL 25 MG TAB PO SCH ×2 (09:22→20:16)
[2017-01-08] MEDS: DILTIAZEM (CD) 180 MG CAP PO SCH (09:22)
[2017-01-08] MEDS: BENAZEPRIL 10 MG TAB PO SCH (09:22)
[2017-01-08] MEDS: FOLIC ACID 1 MG TAB PO SCH (09:22)
[2017-01-08] MEDS: SOD CHLORIDE 0.9% 1,000 ML IV SCH ×2 (09:23→14:37)
--- NOTE | 2017-01-08 13:20 | CONS ---
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 coli ESBL. ANTIMICROBIALS: Patient is on Invanz. PHYSICAL EXAMINATION: This is a wasted fragile elderly woman who is awake in no distress. HEENT: Head atraumatic, normocephalic. Sclerae anicteric. NECK: Supple. CHEST: Rise symmetrical. Breath sounds clear. HEART: S1, S2. ABDOMEN: Soft, bowel sounds present. ASSESSMENT: 1. Leukocytosis with worsening mental status, rule out sepsis 2. 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 2. Severe peripheral arterial disease. 3. History of kidney transplant, remains on immunosuppressive therapy. 4. Diabetes and hypertension. PLAN: We are going to order cultures and chest x-ray, continue antibiotics, follow recommendations of consultants, pending above-knee amputation Problems: Consultation Date/Type/Reason Admit Date/Time Dec 26, 2016 at 13:22 Initial Consult Date 12/27/16 Type of Consultation: ID Referring Provider: KRISTIN HALL MD Exam/Review of Systems Vital Signs Vitals Vital Signs Date Time Temp Pulse Resp B/P Pulse Ox O2 Delivery O2 Flow Rate FiO2 01/08/17 07:18 98.5 99 20 152/88 100 Intake and Output 01/07/17 01/07/17 01/08/17 15:00 23:00 07:00 Intake Total 1315 ml 120 ml Balance 1315 ml 120 ml Results Result Diagram: 01/08/17 0434 01/08/17 0434 Results 24 hrs Laboratory Tests Test 01/07/17 17:30 01/07/17 20:52 01/08/17 04:34 01/08/17 08:00 Bedside Glucose 124 127 113 White Blood Count 12.2 H Red Blood Count 3.88 L Hemoglobin 10.5 L Hematocrit 32.3 L Mean Corpuscular Volume 83.2 Mean Corpuscular Hemoglobin 27.1 L Mean Corpuscular Hemoglobin Concent 32.5 Red Cell Distribution Width 13.7 Platelet Count 276 Mean Platelet Volume 11.8 H Neutrophils % 81.2 H Lymphocytes % 8.3 L Monocytes % 9.9 Eosinophils % 0.2 Basophils % 0.2 Nucleated Red Blood Cells % 0.0 Neutrophils # 9.9 H Lymphocytes # 1.0 Monocytes # 1.2 H Eosinophils # 0.0 Basophils # 0.0 Nucleated Red Blood Cells # 0.0 Sodium Level 132 L Potassium Level 3.8 Chloride Level 97 Carbon Dioxide Level 21 Anion Gap 18 H Blood Urea Nitrogen 9 Creatinine 0.53 Glucose Level 110 Calcium Level 9.9 Test 01/08/17 12:05 Bedside Glucose 127 Medications Medications Current Medications Aspirin (Halfprin) 81 mg DAILY PO Last administered on 01/08/17 09:21; Admin Dose 81 MG; Start 12/27/16 at 09:00 Benazepril HCl (Lotensin) 10 mg DAILY PO Last administered on 01/08/17 09:22; Admin Dose 10 MG; Start 12/27/16 at 09:00 Clopidogrel Bisulfate (plaVIX) 75 mg DAILY PO Last administered on 01/08/17 09 :21; Admin Dose 75 MG; Start 12/27/16 at 09:00 Diltiazem HCl (Cardizem Cd) 180 mg DAILY PO Last administered on 01/08/17 09: 22; Admin Dose 180 MG; Start 12/26/16 at 14:00 Famotidine (Pepcid) 40 mg HS PO Last administered on 01/07/17 20:55; Admin Dose 40 MG; Start 12/26/16 at 21:00 Folic Acid (Folic Acid) 1 mg DAILY PO Last administered on 01/08/17 09:22; Admin Dose 1 MG; Start 12/27/16 at 09:00 Gabapentin (Neurontin) 100 mg TID PO Last administered on 01/08/17 12:05; Admin Dose 100 MG; Start 12/26/16 at 21:00 Metoprolol Tartrate (Lopressor) 75 mg BID PO Last administered on 01/08/17 09: 22; Admin Dose 75 MG; Start 12/26/16 at 21:00 Mycophenolate Mofetil (Cellcept) 1,000 mg BID PO Last administered on 09:21; Admin Dose 1,000 MG; Start 12/26/16 at 21:00 Tacrolimus (Prograf) 2 mg Q12 PO Last administered on 01/08/17 09:20; Admin Dose 2 MG; Start 12/26/16 at 21:00 Pantoprazole (Protonix Tab) 40 mg DAILY@06 PO Last administered on 01/08/17 06 :02; Admin Dose 40 MG; Start 12/27/16 at 06:00 Morphine Sulfate (morphine) 2 mg Q4H PRN IV PAIN LEVEL 6-10 Last administered on 01/07/17 02:42; Admin Dose 2 MG; Start 12/26/16 at 14:30 Diagnostic Test (Pha) (Accu-Chek) 1 ea 02 XX ; Start 12/27/16 at 02:00 Miscellaneous Information 1 ea NOTE XX ; Start 12/26/16 at 14:30 Glucose (Glutose) 15 gm Q15M PRN PO DECREASED GLUCOSE; Start 12/26/16 at 14:30 Glucose (Glutose) 22.5 gm Q15M PRN PO DECREASED GLUCOSE; Start 12/26/16 at 14:30 Dextrose (D50w Syringe) 25 ml Q15M PRN IV DECREASED GLUCOSE; Start 12/26/16 at 14:30 Dextrose (D50w Syringe) 50 ml Q15M PRN IV DECREASED GLUCOSE; Start 12/26/16 at 14:30 Glucagon (Glucagen) 1 mg Q15M PRN IM DECREASED GLUCOSE; Start 12/26/16 at 14:30 Glucose (Glutose) 15 gm Q15M PRN BUCCAL DECREASED GLUCOSE; Start 12/26/16 at 14: 30 Acetaminophen/ Hydrocodone Bitart ([place] (5/325)) 1 tab Q8 PO Last administered on 01/07/17 05:51; Admin Dose 1 TAB; Start 12/26/16 at 22:00 Cholecalciferol (Vitamin D) 1,000 unit DAILY PO Last administered on 01/08/17 09:21; Admin Dose 1,000 UNIT; Start 12/28/16 at 09:00 Insulin Glargine (Lantus) 7 unit DAILY@20 SC Last administered on 01/07/17 20: 54; Admin Dose 7 UNIT; Start 12/29/16 at 20:00 Ondansetron HCl 4 mg 4 mg Q6H PRN IV NAUSEA AND/OR VOMITING Last administered on 01/01/17 10:00; Admin Dose 4 MG; Start 01/01/17 at 10:00 Ertapenem 1 gm/ Sodium Chloride 100 ml @ 200 mls/hr Q24H IVPB Last administered on 01/07/17 13:43; Admin Dose 200 MLS/HR; Start 01/06/17 at 14:30 Sodium Chloride (NS) 1,000 ml @ 75 mls/hr [id number] IV Last administered on 01/07 05:51; Admin Dose 75 MLS/HR; Start 01/06/17 at 18:00 Haloperidol (Haldol) 2 mg Q4H PRN IM AGITATION/ANXIETY Last administered on 01:30; Admin Dose 2 MG; Start 01/08/17 at 01:30 JACQUES HUERTA NP Jan 08, 2017 13:20
--- NOTE | 2017-01-08 13:36 | PN ---
Date/Time of Note Date/Time of Note DATE: 01/08/17 TIME: 13:26 Assessment/Plan VTE Prophylaxis VTE Prophylaxis Intervention: SCD's Lines/Catheters IV [facility]from [facility] Urinary Cath still in place: No Assessment/Plan Chief Complaint/Hosp Course Patient's continues to have intermittent confusion and hallucinations, currently is with one-to-one sitter. Assessment/Plan - Acute encephalopathy, CT brain is negative for any acute pathology, Dr. Jones is asked to see patient. MRI of the brain without contrast is pending - Bilateral lower extremities gangrene secondary to severe peripheral arterial disease, failed debridement and multiple revascularization procedures. Plan for left AKA patient condition improves by Dr. Valencia. Continue antibiotics per ID. - Diabetes mellitus type II. Continue Lantus and NovoLog. - History of kidney transplant in 2009, on immunosuppressive therapy. - Hypertension. 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 - Anemia of chronic kidney disease. Further recommendations based on clinical course. Plan of care discussed with Dr. Cohen Problems: Exam/Review of Systems Vital Signs Vitals Vital Signs Date Time Temp Pulse Resp B/P Pulse Ox O2 Delivery O2 Flow Rate FiO2 01/08/17 07:18 98.5 99 20 152/88 100 Intake and Output 01/07/17 01/07/17 01/08/17 15:00 23:00 07:00 Intake Total 1315 ml 120 ml Balance 1315 ml 120 ml Exam Constitutional: confused Neck: supple Respiratory: clear to auscultation Cardiovascular: nl pulses Gastrointestinal: non-tender, soft Extremities: other (Bilateral feet gangrene) Results Result Diagram: 01/08/17 0434 01/08/17 0434 Results 24 hrs Laboratory Tests Test 01/07/17 17:30 01/07/17 20:52 01/08/17 04:34 01/08/17 08:00 Bedside Glucose 124 127 113 White Blood Count 12.2 H Red Blood Count 3.88 L Hemoglobin 10.5 L Hematocrit 32.3 L Mean Corpuscular Volume 83.2 Mean Corpuscular Hemoglobin 27.1 L Mean Corpuscular Hemoglobin Concent 32.5 Red Cell Distribution Width 13.7 Platelet Count 276 Mean Platelet Volume 11.8 H Neutrophils % 81.2 H Lymphocytes % 8.3 L Monocytes % 9.9 Eosinophils % 0.2 Basophils % 0.2 Nucleated Red Blood Cells % 0.0 Neutrophils # 9.9 H Lymphocytes # 1.0 Monocytes # 1.2 H Eosinophils # 0.0 Basophils # 0.0 Nucleated Red Blood Cells # 0.0 Sodium Level 132 L Potassium Level 3.8 Chloride Level 97 Carbon Dioxide Level 21 Anion Gap 18 H Blood Urea Nitrogen 9 Creatinine 0.53 Glucose Level 110 Calcium Level 9.9 Test 01/08/17 12:05 Bedside Glucose 127 Medications Medications Current Medications Aspirin (Halfprin) 81 mg DAILY PO Last administered on 01/08/17 09:21; Admin Dose 81 MG; Start 12/27/16 at 09:00 Benazepril HCl (Lotensin) 10 mg DAILY PO Last administered on 01/08/17 09:22; Admin Dose 10 MG; Start 12/27/16 at 09:00 Clopidogrel Bisulfate (plaVIX) 75 mg DAILY PO Last administered on 01/08/17 09 :21; Admin Dose 75 MG; Start 12/27/16 at 09:00 Diltiazem HCl (Cardizem Cd) 180 mg DAILY PO Last administered on 01/08/17 09: 22; Admin Dose 180 MG; Start 12/26/16 at 14:00 Famotidine (Pepcid) 40 mg HS PO Last administered on 01/07/17 20:55; Admin Dose 40 MG; Start 12/26/16 at 21:00 Folic Acid (Folic Acid) 1 mg DAILY PO Last administered on 01/08/17 09:22; Admin Dose 1 MG; Start 12/27/16 at 09:00 Gabapentin (Neurontin) 100 mg TID PO Last administered on 01/08/17 12:05; Admin Dose 100 MG; Start 12/26/16 at 21:00 Metoprolol Tartrate (Lopressor) 75 mg BID PO Last administered on 01/08/17 09: 22; Admin Dose 75 MG; Start 12/26/16 at 21:00 Mycophenolate Mofetil (Cellcept) 1,000 mg BID PO Last administered on 09:21; Admin Dose 1,000 MG; Start 12/26/16 at 21:00 Tacrolimus (Prograf) 2 mg Q12 PO Last administered on 01/08/17 09:20; Admin Dose 2 MG; Start 12/26/16 at 21:00 Pantoprazole (Protonix Tab) 40 mg DAILY@06 PO Last administered on 01/08/17 06 :02; Admin Dose 40 MG; Start 12/27/16 at 06:00 Morphine Sulfate (morphine) 2 mg Q4H PRN IV PAIN LEVEL 6-10 Last administered on 01/07/17 02:42; Admin Dose 2 MG; Start 12/26/16 at 14:30 Diagnostic Test (Pha) (Accu-Chek) 1 ea 02 XX ; Start 12/27/16 at 02:00 Miscellaneous Information 1 ea NOTE XX ; Start 12/26/16 at 14:30 Glucose (Glutose) 15 gm Q15M PRN PO DECREASED GLUCOSE; Start 12/26/16 at 14:30 Glucose (Glutose) 22.5 gm Q15M PRN PO DECREASED GLUCOSE; Start 12/26/16 at 14:30 Dextrose (D50w Syringe) 25 ml Q15M PRN IV DECREASED GLUCOSE; Start 12/26/16 at 14:30 Dextrose (D50w Syringe) 50 ml Q15M PRN IV DECREASED GLUCOSE; Start 12/26/16 at 14:30 Glucagon (Glucagen) 1 mg Q15M PRN IM DECREASED GLUCOSE; Start 12/26/16 at 14:30 Glucose (Glutose) 15 gm Q15M PRN BUCCAL DECREASED GLUCOSE; Start 12/26/16 at 14: 30 Acetaminophen/ Hydrocodone Bitart ([place] (5/325)) 1 tab Q8 PO Last administered on 01/07/17 05:51; Admin Dose 1 TAB; Start 12/26/16 at 22:00 Cholecalciferol (Vitamin D) 1,000 unit DAILY PO Last administered on 01/08/17 09:21; Admin Dose 1,000 UNIT; Start 12/28/16 at 09:00 Insulin Glargine (Lantus) 7 unit DAILY@20 SC Last administered on 01/07/17 20: 54; Admin Dose 7 UNIT; Start 12/29/16 at 20:00 Ondansetron HCl 4 mg 4 mg Q6H PRN IV NAUSEA AND/OR VOMITING Last administered on 01/01/17 10:00; Admin Dose 4 MG; Start 01/01/17 at 10:00 Ertapenem 1 gm/ Sodium Chloride 100 ml @ 200 mls/hr Q24H IVPB Last administered on 01/07/17 13:43; Admin Dose 200 MLS/HR; Start 01/06/17 at 14:30 Sodium Chloride (NS) 1,000 ml @ 75 mls/hr [id number] IV Last administered on 01/07 05:51; Admin Dose 75 MLS/HR; Start 01/06/17 at 18:00 Haloperidol (Haldol) 2 mg Q4H PRN IM AGITATION/ANXIETY Last administered on 01:30; Admin Dose 2 MG; Start 01/08/17 at 01:30 LES GILLILAND Jan 08, 2017 13:36
[2017-01-08] MEDS: ERTAPENEM SODIUM 1 GM in SOD CHLORIDE 0.9% 100 ML IVPB SCH (14:22)
[2017-01-08 14:58] VITALS: BP 112/73; RESP 20
--- NOTE | 2017-01-08 15:41 | CONS ---
Date/Time of Note Date/Time of Note DATE: 01/08/17 TIME: 15:38 Assessment/Plan Assessment/Plan Additional Assessment/Plan 1. 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 2. h/o donor kidney transplant in [address] [facility], currently on immunosuppression with Prograf, CellCept 4. 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 History of hypertension. 6. History of diabetes mellitus. 7. History of previous left upper extremity arteriovenous fistula. 8. Hyponatremia due to hypovolemic hyponatremia Plan: continue Current immunosuppression Prograf and cellcept, Cr normal, plan for left AKA as per when pt is more stable IV abx as per ID Renal function currently has been stable ID, vascular surgery and Primary care following on paient. Consultation Date/Type/Reason Admit Date/Time Dec 26, 2016 at 13:22 Initial Consult Date 12/27/16 Type of Consultation: NEPHROLOGY Referring Provider: KRISTIN HALL MD Exam/Review of Systems Vital Signs Vitals Vital Signs Date Time Temp Pulse Resp B/P Pulse Ox O2 Delivery O2 Flow Rate FiO2 01/08/17 14:58 98.1 88 20 112/73 100 Intake and Output 01/07/17 01/07/17 01/08/17 15:00 23:00 07:00 Intake Total 1315 ml 120 ml Balance 1315 ml 120 ml Exam Constitutional: alert, oriented Psych: no complaints Head: normocephalic ENMT: nl external ears & nose Neck: non-tender, supple Respiratory: clear to auscultation, normal air movement Cardiovascular: nl pulses, regular rate and rhythm Gastrointestinal: non-tender, soft Musculoskeletal: other (LE gangrene ) Results Result Diagram: 01/08/17 0434 01/08/17 0434 Results 24 hrs Laboratory Tests Test 01/07/17 17:30 01/07/17 20:52 01/08/17 04:34 01/08/17 08:00 Bedside Glucose 124 127 113 White Blood Count 12.2 H Red Blood Count 3.88 L Hemoglobin 10.5 L Hematocrit 32.3 L Mean Corpuscular Volume 83.2 Mean Corpuscular Hemoglobin 27.1 L Mean Corpuscular Hemoglobin Concent 32.5 Red Cell Distribution Width 13.7 Platelet Count 276 Mean Platelet Volume 11.8 H Neutrophils % 81.2 H Lymphocytes % 8.3 L Monocytes % 9.9 Eosinophils % 0.2 Basophils % 0.2 Nucleated Red Blood Cells % 0.0 Neutrophils # 9.9 H Lymphocytes # 1.0 Monocytes # 1.2 H Eosinophils # 0.0 Basophils # 0.0 Nucleated Red Blood Cells # 0.0 Sodium Level 132 L Potassium Level 3.8 Chloride Level 97 Carbon Dioxide Level 21 Anion Gap 18 H Blood Urea Nitrogen 9 Creatinine 0.53 Glucose Level 110 Calcium Level 9.9 Test 01/08/17 12:05 Bedside Glucose 127 Medications Medications Current Medications Aspirin (Halfprin) 81 mg DAILY PO Last administered on 01/08/17 09:21; Admin Dose 81 MG; Start 12/27/16 at 09:00 Benazepril HCl (Lotensin) 10 mg DAILY PO Last administered on 01/08/17 09:22; Admin Dose 10 MG; Start 12/27/16 at 09:00 Clopidogrel Bisulfate (plaVIX) 75 mg DAILY PO Last administered on 01/08/17 09 :21; Admin Dose 75 MG; Start 12/27/16 at 09:00 Diltiazem HCl (Cardizem Cd) 180 mg DAILY PO Last administered on 01/08/17 09: 22; Admin Dose 180 MG; Start 12/26/16 at 14:00 Famotidine (Pepcid) 40 mg HS PO Last administered on 01/07/17 20:55; Admin Dose 40 MG; Start 12/26/16 at 21:00 Folic Acid (Folic Acid) 1 mg DAILY PO Last administered on 01/08/17 09:22; Admin Dose 1 MG; Start 12/27/16 at 09:00 Gabapentin (Neurontin) 100 mg TID PO Last administered on 01/08/17 12:05; Admin Dose 100 MG; Start 12/26/16 at 21:00 Metoprolol Tartrate (Lopressor) 75 mg BID PO Last administered on 01/08/17 09: 22; Admin Dose 75 MG; Start 12/26/16 at 21:00 Mycophenolate Mofetil (Cellcept) 1,000 mg BID PO Last administered on 09:21; Admin Dose 1,000 MG; Start 12/26/16 at 21:00 Tacrolimus (Prograf) 2 mg Q12 PO Last administered on 01/08/17 09:20; Admin Dose 2 MG; Start 12/26/16 at 21:00 Pantoprazole (Protonix Tab) 40 mg DAILY@06 PO Last administered on 01/08/17 06 :02; Admin Dose 40 MG; Start 12/27/16 at 06:00 Morphine Sulfate (morphine) 2 mg Q4H PRN IV PAIN LEVEL 6-10 Last administered on 01/07/17 02:42; Admin Dose 2 MG; Start 12/26/16 at 14:30 Diagnostic Test (Pha) (Accu-Chek) 1 ea 02 XX ; Start 12/27/16 at 02:00 Miscellaneous Information 1 ea NOTE XX ; Start 12/26/16 at 14:30 Glucose (Glutose) 15 gm Q15M PRN PO DECREASED GLUCOSE; Start 12/26/16 at 14:30 Glucose (Glutose) 22.5 gm Q15M PRN PO DECREASED GLUCOSE; Start 12/26/16 at 14:30 Dextrose (D50w Syringe) 25 ml Q15M PRN IV DECREASED GLUCOSE; Start 12/26/16 at 14:30 Dextrose (D50w Syringe) 50 ml Q15M PRN IV DECREASED GLUCOSE; Start 12/26/16 at 14:30 Glucagon (Glucagen) 1 mg Q15M PRN IM DECREASED GLUCOSE; Start 12/26/16 at 14:30 Glucose (Glutose) 15 gm Q15M PRN BUCCAL DECREASED GLUCOSE; Start 12/26/16 at 14: 30 Acetaminophen/ Hydrocodone Bitart ([place] (5/325)) 1 tab Q8 PO Last administered on 01/07/17 05:51; Admin Dose 1 TAB; Start 12/26/16 at 22:00 Cholecalciferol (Vitamin D) 1,000 unit DAILY PO Last administered on 01/08/17 09:21; Admin Dose 1,000 UNIT; Start 12/28/16 at 09:00 Insulin Glargine (Lantus) 7 unit DAILY@20 SC Last administered on 01/07/17 20: 54; Admin Dose 7 UNIT; Start 12/29/16 at 20:00 Ondansetron HCl 4 mg 4 mg Q6H PRN IV NAUSEA AND/OR VOMITING Last administered on 01/01/17 10:00; Admin Dose 4 MG; Start 01/01/17 at 10:00 Ertapenem 1 gm/ Sodium Chloride 100 ml @ 200 mls/hr Q24H IVPB Last administered on 01/08/17 14:22; Admin Dose 200 MLS/HR; Start 01/06/17 at 14:30 Sodium Chloride (NS) 1,000 ml @ 75 mls/hr [id number] IV Last administered on 01/08 14:37; Admin Dose 75 MLS/HR; Start 01/06/17 at 18:00 Haloperidol (Haldol) 2 mg Q4H PRN IM AGITATION/ANXIETY Last administered on 01:30; Admin Dose 2 MG; Start 01/08/17 at 01:30 RAMON KEMP MD Jan 08, 2017 15:41
--- NOTE | 2017-01-08 16:12 | CONS ---
Date/Time of Note Date/Time of Note DATE: 01/08/17 TIME: 16:09 Assessment/Plan Assessment/Plan Chief Complaint/Hosp Course IMP: 1.Woo-ke-qivsd test 10/2016 with no ischemia/only scar/NL EF. Negative trop x 3. Patient is ok to proceed to OR at moderate risk without further noninvasive evaluation on current medications 2.HTN-labile but reasonable control 3.PAD with bilateral gangrene 4.DM 5.Anemia 6. Encephalopathy Recc: -Continuer asa/plavix -Cointinue benazepril/metoprolol -LOcal wound care -Continue abx's and f/u cx data -pnding LE amputation when stable Problems: Consultation Date/Type/Reason Admit Date/Time Dec 26, 2016 at 13:22 Initial Consult Date 12/27/16 Type of Consultation: cardiology Reason for Consultation pre-op Referring Provider: KRISTIN HALL MD Exam/Review of Systems Vital Signs Vitals Vital Signs Date Time Temp Pulse Resp B/P Pulse Ox O2 Delivery O2 Flow Rate FiO2 01/08/17 14:58 98.1 88 20 112/73 100 Intake and Output 01/07/17 01/07/17 01/08/17 15:00 23:00 07:00 Intake Total 1315 ml 120 ml Balance 1315 ml 120 ml Exam Review of Systems: CONSTITUTIONAL: No fevers, chills. PULMONARY: No sob CARDIOVASCULAR: No chest pain/palpitations GASTROINTESTINAL: No nausea/vomiting. GENITOURINARY: No hematuria/dysuria. MUSCULOSKELETAL: pain in foot PSYCHIATRIC: The patient denies depression. NEUROLOGIC: confused Constitutional: alert Psych: confusion Head: normocephalic ENMT: mucosa pink and moist Neck: jvd (9 cm water), supple Respiratory: diminished breath sounds (at bases/B) Cardiovascular: regular rate and rhythm Gastrointestinal: non-tender, soft Musculoskeletal: muscle weakness (mild generalized) Extremities: edema (none), other (gangrenous changes of foot covered by dressing) Neurological: other (No focal deficits) Results Result Diagram: 01/08/17 0434 01/08/17 0434 Results 24 hrs Laboratory Tests Test 01/07/17 17:30 01/07/17 20:52 01/08/17 04:34 01/08/17 08:00 Bedside Glucose 124 127 113 White Blood Count 12.2 H Red Blood Count 3.88 L Hemoglobin 10.5 L Hematocrit 32.3 L Mean Corpuscular Volume 83.2 Mean Corpuscular Hemoglobin 27.1 L Mean Corpuscular Hemoglobin Concent 32.5 Red Cell Distribution Width 13.7 Platelet Count 276 Mean Platelet Volume 11.8 H Neutrophils % 81.2 H Lymphocytes % 8.3 L Monocytes % 9.9 Eosinophils % 0.2 Basophils % 0.2 Nucleated Red Blood Cells % 0.0 Neutrophils # 9.9 H Lymphocytes # 1.0 Monocytes # 1.2 H Eosinophils # 0.0 Basophils # 0.0 Nucleated Red Blood Cells # 0.0 Sodium Level 132 L Potassium Level 3.8 Chloride Level 97 Carbon Dioxide Level 21 Anion Gap 18 H Blood Urea Nitrogen 9 Creatinine 0.53 Glucose Level 110 Calcium Level 9.9 Test 01/08/17 12:05 Bedside Glucose 127 Medications Medications Current Medications Aspirin (Halfprin) 81 mg DAILY PO Last administered on 01/08/17 09:21; Admin Dose 81 MG; Start 12/27/16 at 09:00 Benazepril HCl (Lotensin) 10 mg DAILY PO Last administered on 01/08/17 09:22; Admin Dose 10 MG; Start 12/27/16 at 09:00 Clopidogrel Bisulfate (plaVIX) 75 mg DAILY PO Last administered on 01/08/17 09 :21; Admin Dose 75 MG; Start 12/27/16 at 09:00 Diltiazem HCl (Cardizem Cd) 180 mg DAILY PO Last administered on 01/08/17 09: 22; Admin Dose 180 MG; Start 12/26/16 at 14:00 Famotidine (Pepcid) 40 mg HS PO Last administered on 01/07/17 20:55; Admin Dose 40 MG; Start 12/26/16 at 21:00 Folic Acid (Folic Acid) 1 mg DAILY PO Last administered on 01/08/17 09:22; Admin Dose 1 MG; Start 12/27/16 at 09:00 Gabapentin (Neurontin) 100 mg TID PO Last administered on 01/08/17 12:05; Admin Dose 100 MG; Start 12/26/16 at 21:00 Metoprolol Tartrate (Lopressor) 75 mg BID PO Last administered on 01/08/17 09: 22; Admin Dose 75 MG; Start 12/26/16 at 21:00 Mycophenolate Mofetil (Cellcept) 1,000 mg BID PO Last administered on 09:21; Admin Dose 1,000 MG; Start 12/26/16 at 21:00 Tacrolimus (Prograf) 2 mg Q12 PO Last administered on 01/08/17 09:20; Admin Dose 2 MG; Start 12/26/16 at 21:00 Pantoprazole (Protonix Tab) 40 mg DAILY@06 PO Last administered on 01/08/17 06 :02; Admin Dose 40 MG; Start 12/27/16 at 06:00 Morphine Sulfate (morphine) 2 mg Q4H PRN IV PAIN LEVEL 6-10 Last administered on 01/07/17 02:42; Admin Dose 2 MG; Start 12/26/16 at 14:30 Diagnostic Test (Pha) (Accu-Chek) 1 ea 02 XX ; Start 12/27/16 at 02:00 Miscellaneous Information 1 ea NOTE XX ; Start 12/26/16 at 14:30 Glucose (Glutose) 15 gm Q15M PRN PO DECREASED GLUCOSE; Start 12/26/16 at 14:30 Glucose (Glutose) 22.5 gm Q15M PRN PO DECREASED GLUCOSE; Start 12/26/16 at 14:30 Dextrose (D50w Syringe) 25 ml Q15M PRN IV DECREASED GLUCOSE; Start 12/26/16 at 14:30 Dextrose (D50w Syringe) 50 ml Q15M PRN IV DECREASED GLUCOSE; Start 12/26/16 at 14:30 Glucagon (Glucagen) 1 mg Q15M PRN IM DECREASED GLUCOSE; Start 12/26/16 at 14:30 Glucose (Glutose) 15 gm Q15M PRN BUCCAL DECREASED GLUCOSE; Start 12/26/16 at 14: 30 Acetaminophen/ Hydrocodone Bitart ([place] (5/325)) 1 tab Q8 PO Last administered on 01/07/17 05:51; Admin Dose 1 TAB; Start 12/26/16 at 22:00 Cholecalciferol (Vitamin D) 1,000 unit DAILY PO Last administered on 01/08/17 09:21; Admin Dose 1,000 UNIT; Start 12/28/16 at 09:00 Insulin Glargine (Lantus) 7 unit DAILY@20 SC Last administered on 01/07/17 20: 54; Admin Dose 7 UNIT; Start 12/29/16 at 20:00 Ondansetron HCl 4 mg 4 mg Q6H PRN IV NAUSEA AND/OR VOMITING Last administered on 01/01/17 10:00; Admin Dose 4 MG; Start 01/01/17 at 10:00 Ertapenem 1 gm/ Sodium Chloride 100 ml @ 200 mls/hr Q24H IVPB Last administered on 01/08/17 14:22; Admin Dose 200 MLS/HR; Start 01/06/17 at 14:30 Sodium Chloride (NS) 1,000 ml @ 75 mls/hr [id number] IV Last administered on 01/08 14:37; Admin Dose 75 MLS/HR; Start 01/06/17 at 18:00 Haloperidol (Haldol) 2 mg Q4H PRN IM AGITATION/ANXIETY Last administered on 01:30; Admin Dose 2 MG; Start 01/08/17 at 01:30 TIMOTHY CORTES Jan 08, 2017 16:12
--- NOTE | 2017-01-08 18:05 | RADRPT ---
PROCEDURE: XR Chest. CLINICAL INDICATION: Cough, assess for pneumonia TECHNIQUE: Single frontal view of the chest was obtained. COMPARISON: 04/02/2016 FINDINGS: The cardiomediastinal silhouette is normal size. There is moderate aortic calcification. Pulmonary v asculature is within normal limits. There is mild prominence of peripheral upper lung interstitial markings.. No signs of pleural fluid or pneumothorax are seen. There is bony demineralization. There is slight prominence of the acromioclavicular distances, right greater than left, which appears chronic. IMPRESSION: 1. Moderate aortic calcification. 2. No visualized consolidation or edema. Mild prominence of upper lung interstitial markings which may reflect chronic change. 3. Bony demineralization. RPTAT: DD .Robe Colorado MD, Date Time Electronically viewed and signed by .Robe Colorado MD, on 01/08/2017 18:04 .T/
[2017-01-08 20:11] VITALS: BP 140/79; RESP 18
[2017-01-08] MEDS: FAMOTIDINE 20 MG TAB PO SCH (20:15)
[2017-01-08] MEDS: INSULIN GLARGINE [LANtus] 3 ML PEN SC SCH (20:15)
[2017-01-08] MEDS: ACETAMINOPHEN 325 MG TAB PO PRN (22:17)
[2017-01-09] MEDS: ACCU-CHEK XX SCH (02:00)
[2017-01-09 02:53] VITALS: BP 133/70; RESP 18
[2017-01-09] MEDS: HYDROCODONE/APAP (5/325) TAB PO SCH ×3 (05:34→22:00)
[2017-01-09] MEDS: PANTOPRAZOLE (EC) 40 MG TAB PO SCH (05:35)
[2017-01-09 05:57] LABS: BASOPHILS % 0.1 % (0.0-2.0); EOSINOPHILS # 0.1 10^3/ul (0.0-0.5); EOSINOPHILS % 0.5 % (0.0-7.0); HEMATOCRIT 28.6 % (37.0-47.0); HEMOGLOBIN 9.9 g/dl (12.0-16.0); LYMPHOCYTES # 1.5 10^3/ul (0.8-2.9); LYMPHOCYTES % 15.7 % (15.0-51.0); MEAN CORPUSCULAR HEMOGLOBIN 28.4 pg (29.0-33.0); MEAN CORPUSCULAR HGB CONC 34.6 g/dl (32.0-37.0); MEAN CORPUSCULAR VOLUME 81.9 fl (82.0-101.0); MONOCYTE # 1.1 10^3/ul (0.3-0.9); MONOCYTES % 11.6 % (0.0-11.0); NEUTROPHIL # 6.9 10^3/ul (1.6-7.5); NEUTROPHILS % 71.7 % (39.0-77.0); PLATELET COUNT 235 10^3/UL (140-415); RED BLOOD COUNT 3.49 10^6/ul (4.20-5.40); RED CELL DISTRIBUTION WIDTH 13.4 % (11.5-14.5); WHITE BLOOD COUNT 9.7 10^3/ul (4.8-10.8)
[2017-01-09 06:48] LABS: CALCIUM 9.6 mg/dl (8.4-10.2); CREATININE 0.52 mg/dl (0.44-1.00); POTASSIUM 3.8 mmol/L (3.5-5.1)
[2017-01-09 08:00] VITALS: BP 128/80; RESP 18
[2017-01-09] MEDS: INSULIN ASPART [NOVOLOG] 3 ML PEN SC SCH ×4 (08:00→21:00)
[2017-01-09] MEDS: MYCOPHENOLATE 250 MG CAP PO SCH ×2 (08:27→21:11)
[2017-01-09] MEDS: TACROLIMUS 1 MG CAP PO SCH ×2 (08:27→21:12)
[2017-01-09] MEDS: ACETAMINOPHEN 325 MG TAB PO PRN ×2 (08:27→22:15)
[2017-01-09] MEDS: METOPROLOL 25 MG TAB PO SCH ×2 (08:28→21:11)
[2017-01-09] MEDS: DILTIAZEM (CD) 180 MG CAP PO SCH (08:28)
[2017-01-09] MEDS: ASPIRIN (EC) 81 MG TAB PO SCH (08:29)
[2017-01-09] MEDS: BENAZEPRIL 10 MG TAB PO SCH (08:29)
[2017-01-09] MEDS: GABAPENTIN 100 MG CAP PO SCH ×3 (08:29→21:11)
[2017-01-09] MEDS: CLOPIDOGREL 75 MG TAB PO SCH (08:29)
[2017-01-09] MEDS: FOLIC ACID 1 MG TAB PO SCH (08:30)
[2017-01-09] MEDS: CHOLECALCIFEROL 1,000 UNIT TAB PO SCH (08:30)
[2017-01-09] MEDS ORDERED: IOHEXOL 14.3 MG(I)/ML (ADULT) BTL PO ONE (09:30)
[2017-01-09] MEDS ORDERED: BARIUM SULF 2% 450 ML BTL (BERRY SMOOTHIE) PO ONE (09:30)
[2017-01-09] MEDS ORDERED: IODIXANOL LOCM 100 ML BTL ONE (10:07)
[2017-01-09] MEDS ORDERED: SOD CHLORIDE 0.9% 100 ML ONE (10:07)
--- NOTE | 2017-01-09 11:26 | CONS ---
Date/Time of Note Date/Time of Note DATE: 01/09/17 TIME: 11:20 Assessment/Plan Assessment/Plan Chief Complaint/Hosp Course 61 yo female with history of advanced peripheral arterial disease, bilateral feet gangrene with e.coli ESBL, history of kidney transplant remains on immunosuppressive therapy, DM, HTN admitted for AKA with hallucinations, delirium. 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 -trial of low dose seroquel 25 mg qhs prn for agitation/delirium over night -continue infectious work up -will continue to follow Problems: Consultation Date/Type/Reason Admit Date/Time Dec 26, 2016 at 13:22 Date of Consultation: Jan 09, 2017 Type of Consultation: Neurology Reason for Consultation delirium Referring Provider: LES GILLILAND Hx of Present Illness 61 year old female with history of Type II DM, s/p renal transplant on immunosuppresive therapy, HTN, admitted with bilateral LE gangrene secondary to severe peripheral artery disease failed debridement and multiple revascularization procedures planned for left AKA on abx. She was noted to be very confused yesterday hallucinating, per nurse overnight she was yelling her grandson was in the trash can. No pain medications have been administered aside from tylenol. Neurology consult requested for further eval. no complaints Constitutional: no complaints Eyes: no complaints ENT: no complaints Respiratory: no complaints Cardiovascular: no complaints Gastrointestinal: no complaints Genitourinary: no complaints Musculoskeletal: other (BLE PAIN) Skin: skin lesions Neurologic: no complaints Endocrine: no complaints Lymphatic: no complaints Psychological: confusion Immunologic: no complaints Past Medical History Medical History: diabetes, high cholesterol, hypertension, other (Peripheral vascular disease ) Past Surgical History Past Surgical Hx: other (H/o LE angiogram, H/o LE debridement, H/o previosu AVF for HD access ) Social History Alcohol Use: none Smoking Status: Never smoker Drug Use: none Exam/Review of Systems Vital Signs Vitals Vital Signs Date Time Temp Pulse Resp B/P Pulse Ox O2 Delivery O2 Flow Rate FiO2 01/09/17 08:00 97.8 78 18 128/80 99 Intake and Output 01/08/17 01/08/17 01/09/17 15:00 23:00 07:00 Intake Total 25 ml 800 ml 1300 ml Balance 25 ml 800 ml 1300 ml Exam awake and alert oriented to self, hospital, date says in December 2016 able to follow all commands no aphasia CN; II-XII are intact Motor no drift in extremities Sensory decreased to all modalities in LE below the knee gangrene in both LE Reflexes 1+ throughout Coordination no ataxia Results Result Diagram: 01/09/17 0455 01/09/17 0455 Results 24 hrs Laboratory Tests Test 01/08/17 12:05 01/08/17 17:21 01/08/17 20:13 01/09/17 04:55 Bedside Glucose 127 138 145 White Blood Count 9.7 # Red Blood Count 3.49 L Hemoglobin 9.9 L Hematocrit 28.6 L Mean Corpuscular Volume 81.9 L Mean Corpuscular Hemoglobin 28.4 L Mean Corpuscular Hemoglobin Concent 34.6 Red Cell Distribution Width 13.4 Platelet Count 235 Mean Platelet Volume 12.0 H Neutrophils % 71.7 Lymphocytes % 15.7 Monocytes % 11.6 H Eosinophils % 0.5 Basophils % 0.1 Nucleated Red Blood Cells % 0.0 Neutrophils # 6.9 Lymphocytes # 1.5 Monocytes # 1.1 H Eosinophils # 0.1 Basophils # 0.0 Nucleated Red Blood Cells # 0.0 Sodium Level 128 L Potassium Level 3.8 Chloride Level 98 Carbon Dioxide Level 22 Anion Gap 12 Blood Urea Nitrogen 12 Creatinine 0.52 Glucose Level 89 Calcium Level 9.6 Test 01/09/17 08:06 Bedside Glucose 91 Medications Medications Current Medications Aspirin (Halfprin) 81 mg DAILY PO Last administered on 01/09/17 08:29; Admin Dose 81 MG; Start 12/27/16 at 09:00 Benazepril HCl (Lotensin) 10 mg DAILY PO Last administered on 01/09/17 08:29; Admin Dose 10 MG; Start 12/27/16 at 09:00 Clopidogrel Bisulfate (plaVIX) 75 mg DAILY PO Last administered on 01/09/17 08 :29; Admin Dose 75 MG; Start 12/27/16 at 09:00 Diltiazem HCl (Cardizem Cd) 180 mg DAILY PO Last administered on 01/09/17 08: 28; Admin Dose 180 MG; Start 12/26/16 at 14:00 Famotidine (Pepcid) 40 mg HS PO Last administered on 01/08/17 20:15; Admin Dose 40 MG; Start 12/26/16 at 21:00 Folic Acid (Folic Acid) 1 mg DAILY PO Last administered on 01/09/17 08:30; Admin Dose 1 MG; Start 12/27/16 at 09:00 Gabapentin (Neurontin) 100 mg TID PO Last administered on 01/09/17 08:29; Admin Dose 100 MG; Start 12/26/16 at 21:00 Metoprolol Tartrate (Lopressor) 75 mg BID PO Last administered on 01/09/17 08: 28; Admin Dose 75 MG; Start 12/26/16 at 21:00 Mycophenolate Mofetil (Cellcept) 1,000 mg BID PO Last administered on 08:27; Admin Dose 1,000 MG; Start 12/26/16 at 21:00 Tacrolimus (Prograf) 2 mg Q12 PO Last administered on 01/09/17 08:27; Admin Dose 2 MG; Start 12/26/16 at 21:00 Pantoprazole (Protonix Tab) 40 mg DAILY@06 PO Last administered on 01/09/17 05 :35; Admin Dose 40 MG; Start 12/27/16 at 06:00 Morphine Sulfate (morphine) 2 mg Q4H PRN IV PAIN LEVEL 6-10 Last administered on 01/07/17 02:42; Admin Dose 2 MG; Start 12/26/16 at 14:30 Diagnostic Test (Pha) (Accu-Chek) 1 ea 02 XX ; Start 12/27/16 at 02:00 Miscellaneous Information 1 ea NOTE XX ; Start 12/26/16 at 14:30 Glucose (Glutose) 15 gm Q15M PRN PO DECREASED GLUCOSE; Start 12/26/16 at 14:30 Glucose (Glutose) 22.5 gm Q15M PRN PO DECREASED GLUCOSE; Start 12/26/16 at 14:30 Dextrose (D50w Syringe) 25 ml Q15M PRN IV DECREASED GLUCOSE; Start 12/26/16 at 14:30 Dextrose (D50w Syringe) 50 ml Q15M PRN IV DECREASED GLUCOSE; Start 12/26/16 at 14:30 Glucagon (Glucagen) 1 mg Q15M PRN IM DECREASED GLUCOSE; Start 12/26/16 at 14:30 Glucose (Glutose) 15 gm Q15M PRN BUCCAL DECREASED GLUCOSE; Start 12/26/16 at 14: 30 Acetaminophen/ Hydrocodone Bitart ([place] (5/325)) 1 tab Q8 PO Last administered on 01/07/17 05:51; Admin Dose 1 TAB; Start 12/26/16 at 22:00 Cholecalciferol (Vitamin D) 1,000 unit DAILY PO Last administered on 01/09/17 08:30; Admin Dose 1,000 UNIT; Start 12/28/16 at 09:00 Insulin Glargine (Lantus) 7 unit DAILY@20 SC Last administered on 01/08/17 20: 15; Admin Dose 7 UNIT; Start 12/29/16 at 20:00 Ondansetron HCl 4 mg 4 mg Q6H PRN IV NAUSEA AND/OR VOMITING Last administered on 01/01/17 10:00; Admin Dose 4 MG; Start 01/01/17 at 10:00 Ertapenem 1 gm/ Sodium Chloride 100 ml @ 200 mls/hr Q24H IVPB Last administered on 01/08/17 14:22; Admin Dose 200 MLS/HR; Start 01/06/17 at 14:30 Sodium Chloride (NS) 1,000 ml @ 75 mls/hr [id number] IV Last administered on 01/08 14:37; Admin Dose 75 MLS/HR; Start 01/06/17 at 18:00 Haloperidol (Haldol) 2 mg Q4H PRN IM AGITATION/ANXIETY Last administered on 22:46; Admin Dose 2 MG; Start 01/08/17 at 01:30 Acetaminophen (Tylenol Tab) 650 mg Q6H PRN PO PAIN AND OR ELEVATED TEMP Last administered on 01/09/17 08:27; Admin Dose 650 MG; Start 01/08/17 at 22:30 BRITNEY VICTORIA MD Jan 09, 2017 11:26
[2017-01-09] MEDS: SOD CHLORIDE 0.9% 1,000 ML IV SCH (12:48)
[2017-01-09] MEDS ORDERED: [UNRECOGNIZED DRUG - REMARK] XX SCH (13:00)
--- NOTE | 2017-01-09 13:43 | CONS ---
Date/Time of Note Date/Time of Note DATE: 01/09/17 TIME: 13:41 Assessment/Plan Assessment/Plan Chief Complaint/Hosp Course IMP: 1.Igw-dv-[id number] test 10/2016 with no ischemia/only scar/NL EF. Negative trop x 3. Patient is ok to proceed to OR at moderate risk without further noninvasive evaluation on current medications 2.HTN-labile but reasonable control 3.PAD with bilateral gangrene 4.DM 5.Anemia 6. Encephalopathy Recc: -Continuer asa/plavix -Cointinue benazepril/metoprolol -LOcal wound care -Continue abx's and f/u cx data -pnding LE amputation when stable Problems: Consultation Date/Type/Reason Admit Date/Time Dec 26, 2016 at 13:22 Initial Consult Date 12/27/16 Type of Consultation: cardiology Reason for Consultation Pre-op Referring Provider: LES GILLILAND Exam/Review of Systems Vital Signs Vitals Vital Signs Date Time Temp Pulse Resp B/P Pulse Ox O2 Delivery O2 Flow Rate FiO2 01/09/17 08:00 97.8 78 18 128/80 99 Intake and Output 01/08/17 01/08/17 01/09/17 15:00 23:00 07:00 Intake Total 25 ml 800 ml 1300 ml Balance 25 ml 800 ml 1300 ml Exam Review of Systems: CONSTITUTIONAL: No fevers, chills. PULMONARY: No sob CARDIOVASCULAR: No chest pain/palpitations GASTROINTESTINAL: No nausea/vomiting. GENITOURINARY: No hematuria/dysuria. MUSCULOSKELETAL: pain in foot PSYCHIATRIC: The patient denies depression. NEUROLOGIC: lethargic Constitutional: alert Psych: no complaints Head: normocephalic ENMT: mucosa pink and moist Neck: jvd (8 cm water), supple Respiratory: diminished breath sounds (at bases/B) Cardiovascular: regular rate and rhythm Gastrointestinal: non-tender, soft Musculoskeletal: muscle tone (normal) Extremities: edema (none), other (foot covered by dressing) Neurological: other (No focal deficits) Results Result Diagram: 01/09/17 0455 01/09/17 0455 Results 24 hrs Laboratory Tests Test 01/08/17 17:21 01/08/17 20:13 01/09/17 04:55 01/09/17 08:06 Bedside Glucose 138 145 91 White Blood Count 9.7 # Red Blood Count 3.49 L Hemoglobin 9.9 L Hematocrit 28.6 L Mean Corpuscular Volume 81.9 L Mean Corpuscular Hemoglobin 28.4 L Mean Corpuscular Hemoglobin Concent 34.6 Red Cell Distribution Width 13.4 Platelet Count 235 Mean Platelet Volume 12.0 H Neutrophils % 71.7 Lymphocytes % 15.7 Monocytes % 11.6 H Eosinophils % 0.5 Basophils % 0.1 Nucleated Red Blood Cells % 0.0 Neutrophils # 6.9 Lymphocytes # 1.5 Monocytes # 1.1 H Eosinophils # 0.1 Basophils # 0.0 Nucleated Red Blood Cells # 0.0 Sodium Level 128 L Potassium Level 3.8 Chloride Level 98 Carbon Dioxide Level 22 Anion Gap 12 Blood Urea Nitrogen 12 Creatinine 0.52 Glucose Level 89 Calcium Level 9.6 Test 01/09/17 12:48 Bedside Glucose 169 Medications Medications Current Medications Aspirin (Halfprin) 81 mg DAILY PO Last administered on 01/09/17 08:29; Admin Dose 81 MG; Start 12/27/16 at 09:00 Benazepril HCl (Lotensin) 10 mg DAILY PO Last administered on 01/09/17 08:29; Admin Dose 10 MG; Start 12/27/16 at 09:00 Clopidogrel Bisulfate (plaVIX) 75 mg DAILY PO Last administered on 01/09/17 08 :29; Admin Dose 75 MG; Start 12/27/16 at 09:00 Diltiazem HCl (Cardizem Cd) 180 mg DAILY PO Last administered on 01/09/17 08: 28; Admin Dose 180 MG; Start 12/26/16 at 14:00 Famotidine (Pepcid) 40 mg HS PO Last administered on 01/08/17 20:15; Admin Dose 40 MG; Start 12/26/16 at 21:00 Folic Acid (Folic Acid) 1 mg DAILY PO Last administered on 01/09/17 08:30; Admin Dose 1 MG; Start 12/27/16 at 09:00 Gabapentin (Neurontin) 100 mg TID PO Last administered on 01/09/17 12:48; Admin Dose 100 MG; Start 12/26/16 at 21:00 Metoprolol Tartrate (Lopressor) 75 mg BID PO Last administered on 01/09/17 08: 28; Admin Dose 75 MG; Start 12/26/16 at 21:00 Mycophenolate Mofetil (Cellcept) 1,000 mg BID PO Last administered on 08:27; Admin Dose 1,000 MG; Start 12/26/16 at 21:00 Tacrolimus (Prograf) 2 mg Q12 PO Last administered on 01/09/17 08:27; Admin Dose 2 MG; Start 12/26/16 at 21:00 Pantoprazole (Protonix Tab) 40 mg DAILY@06 PO Last administered on 01/09/17 05 :35; Admin Dose 40 MG; Start 12/27/16 at 06:00 Morphine Sulfate (morphine) 2 mg Q4H PRN IV PAIN LEVEL 6-10 Last administered on 01/07/17 02:42; Admin Dose 2 MG; Start 12/26/16 at 14:30 Diagnostic Test (Pha) (Accu-Chek) 1 ea 02 XX ; Start 12/27/16 at 02:00 Miscellaneous Information 1 ea NOTE XX ; Start 12/26/16 at 14:30 Glucose (Glutose) 15 gm Q15M PRN PO DECREASED GLUCOSE; Start 12/26/16 at 14:30 Glucose (Glutose) 22.5 gm Q15M PRN PO DECREASED GLUCOSE; Start 12/26/16 at 14:30 Dextrose (D50w Syringe) 25 ml Q15M PRN IV DECREASED GLUCOSE; Start 12/26/16 at 14:30 Dextrose (D50w Syringe) 50 ml Q15M PRN IV DECREASED GLUCOSE; Start 12/26/16 at 14:30 Glucagon (Glucagen) 1 mg Q15M PRN IM DECREASED GLUCOSE; Start 12/26/16 at 14:30 Glucose (Glutose) 15 gm Q15M PRN BUCCAL DECREASED GLUCOSE; Start 12/26/16 at 14: 30 Acetaminophen/ Hydrocodone Bitart ([place] (5/325)) 1 tab Q8 PO Last administered on 01/07/17 05:51; Admin Dose 1 TAB; Start 12/26/16 at 22:00 Cholecalciferol (Vitamin D) 1,000 unit DAILY PO Last administered on 01/09/17 08:30; Admin Dose 1,000 UNIT; Start 12/28/16 at 09:00 Insulin Glargine (Lantus) 7 unit DAILY@20 SC Last administered on 01/08/17 20: 15; Admin Dose 7 UNIT; Start 12/29/16 at 20:00 Ondansetron HCl 4 mg 4 mg Q6H PRN IV NAUSEA AND/OR VOMITING Last administered on 01/01/17 10:00; Admin Dose 4 MG; Start 01/01/17 at 10:00 Ertapenem 1 gm/ Sodium Chloride 100 ml @ 200 mls/hr Q24H IVPB Last administered on 01/08/17 14:22; Admin Dose 200 MLS/HR; Start 01/06/17 at 14:30 Sodium Chloride (NS) 1,000 ml @ 75 mls/hr [id number] IV Last administered on 01/09 12:48; Admin Dose 75 MLS/HR; Start 01/06/17 at 18:00 Haloperidol (Haldol) 2 mg Q4H PRN IM AGITATION/ANXIETY Last administered on 22:46; Admin Dose 2 MG; Start 01/08/17 at 01:30 Acetaminophen (Tylenol Tab) 650 mg Q6H PRN PO PAIN AND OR ELEVATED TEMP Last administered on 01/09/17 08:27; Admin Dose 650 MG; Start 01/08/17 at 22:30 Quetiapine Fumarate (Seroquel) 25 mg QHS PRN PO agitation/hallucinations; Start 01/09/17 at 21:00 Miscellaneous Information (*Order Clarification Bulletin) MEDICATION REQUIRES CLARIFICATION: Q6H XX ; Start 01/09/17 at 13:00 TIMOTHY CORTSE Jan 09, 2017 13:43
[2017-01-09 14:05] VITALS: BP 141/79; RESP 20
--- NOTE | 2017-01-09 14:17 | RADRPT ---
PROCEDURE: MR Brain with and without intravenous contrast CLINICAL INDICATION: Altered level of consciousness. COMPARISON: CT from 01/07/2070. TECHNIQUE: Multiplanar multi-sequence images of the brain were obtained before and after the unevent ful administration of 10 mL Magnevist intravenous contrast. Images acquired on a 3.0 Mellisa magnet. FINDINGS: Parenchyma: No acute hemorrhage, infarction, mass, or abnormal enhancement. Partially empty sella. M arked bifrontal cerebral volume loss. Mild amount of periventricular and subcortical white matter [place] AIR hyperintensity, a nonspecific finding often associated with chronic microangiopathy. Ventricles: No ventricular enlargement or ventricular effacement. Mild enlargement of the cord plexu s and lateral ventricles, a nonspecific finding. Extra-axial spaces: No herniation or midline shift. Small arachnoid cyst anterior to the left tempor al lobe in the middle cranial fossa. Trace enhancement overlying the left frontal convexity, a nonsp ecific series 5, image 14). Orbits: Normal. Major intracranial flow voids: Preserved. Paranasal sinuses: Mild paranasal sinus mucosal thickening. Mastoids and middle ears: Clear. Bones: Normal. Extracranial soft tissues: Normal. Additional comment: None. IMPRESSION: 1. Marked bifrontal cerebral volume loss. 2. Mild white matter changes, a nonspecific finding often associated with chronic microangiopathy. 3. Trace dural enhancement overlying the left frontal convexity, a nonspecific finding which can be associated with infection, tumor, and granulomatous like processes. RPTAT: AA Physician Alejo Date Time Electronically viewed and signed by Physician Alejo on 01/09/2017 14:17 /
--- NOTE | 2017-01-09 14:51 | CONS ---
Date/Time of Note Date/Time of Note DATE: 01/09/17 TIME: 14:49 Assessment/Plan Assessment/Plan Chief Complaint/Hosp Course SUBJECTIVE DATA: Patient is alert eating lunch denies pain looks comfortable afebrile. Temperature 98.5 pulse 78 respirations 20 blood pressure 128/80 saturation 99 on room air WBC 9.7 H&H 9.7 and 28.6 platelets 235 BUN 12 creatinine 0.52 Chest x-ray ordered yesterday revealed no consolidation or edema. Blood cultures preliminary negative MICROBIOLOGY: Right foot culture grew E. coli ESBL. ANTIMICROBIALS: Patient is on Invanz. PHYSICAL EXAMINATION: This is a wasted fragile elderly woman who is awake in no distress. HEENT: Head atraumatic, normocephalic. Sclerae anicteric. NECK: Supple. CHEST: Rise symmetrical. Breath sounds clear. HEART: S1, S2. ABDOMEN: Soft, bowel sounds present. ASSESSMENT: 1. Leukocytosis with worsening mental status, so far no evidence of acute infection except in her feet 2. 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 2. Severe peripheral arterial disease. 3. History of kidney transplant, remains on immunosuppressive therapy. 4. Diabetes and hypertension. PLAN: Clinically stable, blood cultures preliminary negative, urine culture pending, continue antibiotics, follow vascular recommendations pending above- knee amputation Problems: Consultation Date/Type/Reason Admit Date/Time Dec 26, 2016 at 13:22 Initial Consult Date 12/27/16 Type of Consultation: id Referring Provider: LES GILLILAND Exam/Review of Systems Vital Signs Vitals Vital Signs Date Time Temp Pulse Resp B/P Pulse Ox O2 Delivery O2 Flow Rate FiO2 01/09/17 14:05 98.5 20 141/79 95 01/09/17 08:00 78 Intake and Output 01/08/17 01/08/17 01/09/17 15:00 23:00 07:00 Intake Total 25 ml 800 ml 1300 ml Balance 25 ml 800 ml 1300 ml Results Result Diagram: 01/09/17 0455 01/09/17 0455 Results 24 hrs Laboratory Tests Test 01/08/17 17:21 01/08/17 20:13 01/09/17 04:55 01/09/17 08:06 Bedside Glucose 138 145 91 White Blood Count 9.7 # Red Blood Count 3.49 L Hemoglobin 9.9 L Hematocrit 28.6 L Mean Corpuscular Volume 81.9 L Mean Corpuscular Hemoglobin 28.4 L Mean Corpuscular Hemoglobin Concent 34.6 Red Cell Distribution Width 13.4 Platelet Count 235 Mean Platelet Volume 12.0 H Neutrophils % 71.7 Lymphocytes % 15.7 Monocytes % 11.6 H Eosinophils % 0.5 Basophils % 0.1 Nucleated Red Blood Cells % 0.0 Neutrophils # 6.9 Lymphocytes # 1.5 Monocytes # 1.1 H Eosinophils # 0.1 Basophils # 0.0 Nucleated Red Blood Cells # 0.0 Sodium Level 128 L Potassium Level 3.8 Chloride Level 98 Carbon Dioxide Level 22 Anion Gap 12 Blood Urea Nitrogen 12 Creatinine 0.52 Glucose Level 89 Calcium Level 9.6 Test 01/09/17 12:48 Bedside Glucose 169 Medications Medications Current Medications Aspirin (Halfprin) 81 mg DAILY PO Last administered on 01/09/17 08:29; Admin Dose 81 MG; Start 12/27/16 at 09:00 Benazepril HCl (Lotensin) 10 mg DAILY PO Last administered on 01/09/17 08:29; Admin Dose 10 MG; Start 12/27/16 at 09:00 Clopidogrel Bisulfate (plaVIX) 75 mg DAILY PO Last administered on 01/09/17 08 :29; Admin Dose 75 MG; Start 12/27/16 at 09:00 Diltiazem HCl (Cardizem Cd) 180 mg DAILY PO Last administered on 01/09/17 08: 28; Admin Dose 180 MG; Start 12/26/16 at 14:00 Famotidine (Pepcid) 40 mg HS PO Last administered on 01/08/17 20:15; Admin Dose 40 MG; Start 12/26/16 at 21:00 Folic Acid (Folic Acid) 1 mg DAILY PO Last administered on 01/09/17 08:30; Admin Dose 1 MG; Start 12/27/16 at 09:00 Gabapentin (Neurontin) 100 mg TID PO Last administered on 01/09/17 12:48; Admin Dose 100 MG; Start 12/26/16 at 21:00 Metoprolol Tartrate (Lopressor) 75 mg BID PO Last administered on 01/09/17 08: 28; Admin Dose 75 MG; Start 12/26/16 at 21:00 Mycophenolate Mofetil (Cellcept) 1,000 mg BID PO Last administered on 08:27; Admin Dose 1,000 MG; Start 12/26/16 at 21:00 Tacrolimus (Prograf) 2 mg Q12 PO Last administered on 01/09/17 08:27; Admin Dose 2 MG; Start 12/26/16 at 21:00 Pantoprazole (Protonix Tab) 40 mg DAILY@06 PO Last administered on 01/09/17 05 :35; Admin Dose 40 MG; Start 12/27/16 at 06:00 Morphine Sulfate (morphine) 2 mg Q4H PRN IV PAIN LEVEL 6-10 Last administered on 01/07/17 02:42; Admin Dose 2 MG; Start 12/26/16 at 14:30 Diagnostic Test (Pha) (Accu-Chek) 1 ea 02 XX ; Start 12/27/16 at 02:00 Miscellaneous Information 1 ea NOTE XX ; Start 12/26/16 at 14:30 Glucose (Glutose) 15 gm Q15M PRN PO DECREASED GLUCOSE; Start 12/26/16 at 14:30 Glucose (Glutose) 22.5 gm Q15M PRN PO DECREASED GLUCOSE; Start 12/26/16 at 14:30 Dextrose (D50w Syringe) 25 ml Q15M PRN IV DECREASED GLUCOSE; Start 12/26/16 at 14:30 Dextrose (D50w Syringe) 50 ml Q15M PRN IV DECREASED GLUCOSE; Start 12/26/16 at 14:30 Glucagon (Glucagen) 1 mg Q15M PRN IM DECREASED GLUCOSE; Start 12/26/16 at 14:30 Glucose (Glutose) 15 gm Q15M PRN BUCCAL DECREASED GLUCOSE; Start 12/26/16 at 14: 30 Acetaminophen/ Hydrocodone Bitart ([place] (5/325)) 1 tab Q8 PO Last administered on 01/07/17 05:51; Admin Dose 1 TAB; Start 12/26/16 at 22:00 Cholecalciferol (Vitamin D) 1,000 unit DAILY PO Last administered on 01/09/17 08:30; Admin Dose 1,000 UNIT; Start 12/28/16 at 09:00 Insulin Glargine (Lantus) 7 unit DAILY@20 SC Last administered on 01/08/17 20: 15; Admin Dose 7 UNIT; Start 12/29/16 at 20:00 Ondansetron HCl 4 mg 4 mg Q6H PRN IV NAUSEA AND/OR VOMITING Last administered on 01/01/17 10:00; Admin Dose 4 MG; Start 01/01/17 at 10:00 Ertapenem 1 gm/ Sodium Chloride 100 ml @ 200 mls/hr Q24H IVPB Last administered on 01/08/17 14:22; Admin Dose 200 MLS/HR; Start 01/06/17 at 14:30 Sodium Chloride (NS) 1,000 ml @ 75 mls/hr [id number] IV Last administered on 01/09 12:48; Admin Dose 75 MLS/HR; Start 01/06/17 at 18:00 Haloperidol (Haldol) 2 mg Q4H PRN IM AGITATION/ANXIETY Last administered on 22:46; Admin Dose 2 MG; Start 01/08/17 at 01:30 Acetaminophen (Tylenol Tab) 650 mg Q6H PRN PO PAIN AND OR ELEVATED TEMP Last administered on 01/09/17 08:27; Admin Dose 650 MG; Start 01/08/17 at 22:30 Quetiapine Fumarate (Seroquel) 25 mg QHS PRN PO agitation/hallucinations; Start 01/09/17 at 21:00 Miscellaneous Information (*Order Clarification Bulletin) MEDICATION REQUIRES CLARIFICATION: Q6H XX ; Start 01/09/17 at 13:00 JACQUES HUERTA NP Jan 09, 2017 14:51
--- NOTE | 2017-01-09 14:53 | RADRPT ---
PROCEDURE: CT Abdomen and Pelvis with contrast. CLINICAL INDICATION: Unexplained weight loss. TECHNIQUE: Multiple contiguous axial CT images of the abdomen and pelvis were obtained following t he administration of 90 cc of Visipaque 320. Coronal and sagittal reconstructions were also perform ed. CTDIvol (mGy): 5.64; Total Exam DLP (mGy-cm): 376.09. One or more of the following dose reduction techniques were utilized: - Automated exposure control. - Adjustment of the mA and/or kV according to patient size. - Use of iterative reconstruction technique. COMPARISON: CTA abdomen 11/14/2016. FINDINGS: Limited imaging of the lower thorax is unremarkable. The liver and spleen are homogeneous in enhancement. Innumerable tiny cysts are seen throughout the liver. The gallbladder, pancreas and adrenal glands are unremarkable. The kidneys are enlarged and symmetric in size. Innumerable cysts consume the renal parenchyma wale tible with polycystic kidney disease. Scattered minimally complicated cysts are seen bilaterally whi ch. Faint symmetric renal parenchymal enhancement is observed. There is no hydronephrosis or abnorma l perinephric inflammation. There are no ureteral stones. A right lower quadrant renal transplant i s in place. Homogeneous parenchymal enhancement is observed. There is no hydronephrosis or perinephr ic fluid collection. The abdominal aorta is normal in caliber. Atherosclerotic calcification is present. Branch vessel at herosclerotic calcification is also observed. 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 Bilateral calcified diminutive renal arteries are identified. There is no periaortic / r etroperitoneal lymphadenopathy. A very small hiatal hernia is present. The small and large intestines are unremarkable. The appendi x is normal. There are no focal inflammatory changes of the mesentery. There is no mesenteric lymp hadenopathy. There is no ascites. The bladder, uterus and adnexa are unremarkable. There is no free pelvic fluid. There is no pelvic sidewall or inguinal lymphadenopathy. Degenerative changes of the spine are present. Body wall soft tissues are unremarkable. IMPRESSION: No evidence of abdominopelvic mass, lymphadenopathy or acute inflammatory pathology. Bilateral enlarged cystic kidneys compatible with polycystic kidney disease. Right lower quadrant renal transplant without evidence of hydronephrosis or inflammation. Innumerable tiny hepatic cysts, unchanged. RPTAT: AAQQ .Irma Jackson MD, MD Date Time Electronically viewed and signed by .Irma Jackson MD, MD on 01/09/2017 14:52 .T/
--- NOTE | 2017-01-09 14:58 | RADRPT ---
PROCEDURE: CT Chest with contrast. CLINICAL INDICATION: Unexplained weight loss. Immunosuppression. TECHNIQUE: CT scan of the chest with contrast was performed following the uncomplicated intravenou s administration of 90 cc of Visipaque 320. Coronal and sagittal reformatted images were obtained f rom the axial source images. Images were reviewed on a high-resolution PACS workstation. CTDIvol (mG y): 5.64; Total Exam DLP (mGy-cm): 376.09. One or more of the following dose reduction techniques were utilized: - Automated exposure control. - Adjustment of the mA and/or kV according to patient size. - Use of iterative reconstruction technique. COMPARISON: Chest x-ray 01/08/2017. FINDINGS: Limited imaging of the lower neck demonstrates scattered few small nodules throughout the thyroid gl and. The heart is within the upper limits of normal in size. There is no pericardial effusion. There is no mediastinal, hilar or axillary lymphadenopathy. The thoracic aorta is normal in caliber. Ather osclerotic calcification is present. Coronary artery calcifications are present. The pulmonary art eries are not enlarged. There is no pulmonary consolidation, pleural effusion or pulmonary nodule. The tracheobronchial eufemia e is clear. Limited imaging of the upper abdomen demonstrates innumerable tiny hepatic cysts and enlarged cystic kidneys. Degenerative changes of the spine are observed. Body wall soft tissues are unremarkable. IMPRESSION: No evidence of mass, lymphadenopathy or acute inflammatory process of the chest. Thoracic aortic atherosclerosis. RPTAT: AAQQ .Irma Jackson MD, Date Time Electronically viewed and signed by .Irma Jackson MD, MD on 01/09/2017 14:58 .T/
[2017-01-09] MEDS: ERTAPENEM SODIUM 1 GM in SOD CHLORIDE 0.9% 100 ML IVPB SCH (15:26)
--- NOTE | 2017-01-09 16:45 | CONS ---
Date/Time of Note Date/Time of Note DATE: 01/09/17 TIME: 16:43 Assessment/Plan Assessment/Plan Additional Assessment/Plan 1. 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 2. h/o donor kidney transplant in 2009 at [facility], currently on immunosuppression with Prograf, CellCept 4. 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 History of hypertension. 6. History of diabetes mellitus. 7. History of previous left upper extremity arteriovenous fistula. 8. Hyponatremia due to hypovolemic hyponatremia Plan: continue Current immunosuppression Prograf and cellcept, Cr normal, plan for left AKA as per when pt is more stable - yesterday I had a discussion with about Need for surgery Juliet flynn was worried about unexplained weight loss, to rule out malignancy, I got CT chest+ abd+pelvis with and without contrast negative for mass/LAD/Malignancy continue IVF NS since pt has contrast exposure today with CT, will monitor Cr IV abx as per ID ID, vascular surgery and Primary care following on paient. Consultation Date/Type/Reason Admit Date/Time Dec 26, 2016 at 13:22 Initial Consult Date 12/27/16 Type of Consultation: NEPHROLOGY Referring Provider: LES GILLILAND 24 HR Interval Summary Free Text/Dictation c/o leg pain, Hallucianting yesterday night Exam/Review of Systems Vital Signs Vitals Vital Signs Date Time Temp Pulse Resp B/P Pulse Ox O2 Delivery O2 Flow Rate FiO2 01/09/17 14:05 98.5 20 141/79 95 01/09/17 08:00 78 Intake and Output 01/08/17 01/08/17 01/09/17 15:00 23:00 07:00 Intake Total 25 ml 800 ml 1300 ml Balance 25 ml 800 ml 1300 ml Exam Constitutional: alert, oriented Psych: no complaints Head: normocephalic ENMT: nl external ears & nose Neck: non-tender, supple Respiratory: clear to auscultation, normal air movement Cardiovascular: nl pulses, regular rate and rhythm Gastrointestinal: non-tender, soft Musculoskeletal: other (LE gangrene ) Results Result Diagram: 01/09/175 01/09/17 0455 Results 24 hrs Laboratory Tests Test 01/08/17 17:21 01/08/17 20:13 01/09/17 04:55 01/09/17 08:06 Bedside Glucose 138 145 91 White Blood Count 9.7 # Red Blood Count 3.49 L Hemoglobin 9.9 L Hematocrit 28.6 L Mean Corpuscular Volume 81.9 L Mean Corpuscular Hemoglobin 28.4 L Mean Corpuscular Hemoglobin Concent 34.6 Red Cell Distribution Width 13.4 Platelet Count 235 Mean Platelet Volume 12.0 H Neutrophils % 71.7 Lymphocytes % 15.7 Monocytes % 11.6 H Eosinophils % 0.5 Basophils % 0.1 Nucleated Red Blood Cells % 0.0 Neutrophils # 6.9 Lymphocytes # 1.5 Monocytes # 1.1 H Eosinophils # 0.1 Basophils # 0.0 Nucleated Red Blood Cells # 0.0 Sodium Level 128 L Potassium Level 3.8 Chloride Level 98 Carbon Dioxide Level 22 Anion Gap 12 Blood Urea Nitrogen 12 Creatinine 0.52 Glucose Level 89 Calcium Level 9.6 Test 01/09/17 12:48 Bedside Glucose 169 Medications Medications Current Medications Aspirin (Halfprin) 81 mg DAILY PO Last administered on 01/09/17 08:29; Admin Dose 81 MG; Start 12/27/16 at 09:00 Benazepril HCl (Lotensin) 10 mg DAILY PO Last administered on 01/09/17 08:29; Admin Dose 10 MG; Start 12/27/16 at 09:00 Clopidogrel Bisulfate (plaVIX) 75 mg DAILY PO Last administered on 01/09/17 08 :29; Admin Dose 75 MG; Start 12/27/16 at 09:00 Diltiazem HCl (Cardizem Cd) 180 mg DAILY PO Last administered on 01/09/17 08: 28; Admin Dose 180 MG; Start 12/26/16 at 14:00 Famotidine (Pepcid) 40 mg HS PO Last administered on 01/08/17 20:15; Admin Dose 40 MG; Start 12/26/16 at 21:00 Folic Acid (Folic Acid) 1 mg DAILY PO Last administered on 01/09/17 08:30; Admin Dose 1 MG; Start 12/27/16 at 09:00 Gabapentin (Neurontin) 100 mg TID PO Last administered on 01/09/17 12:48; Admin Dose 100 MG; Start 12/26/16 at 21:00 Metoprolol Tartrate (Lopressor) 75 mg BID PO Last administered on 01/09/17 08: 28; Admin Dose 75 MG; Start 12/26/16 at 21:00 Mycophenolate Mofetil (Cellcept) 1,000 mg BID PO Last administered on 08:27; Admin Dose 1,000 MG; Start 12/26/16 at 21:00 Tacrolimus (Prograf) 2 mg Q12 PO Last administered on 01/09/17 08:27; Admin Dose 2 MG; Start 12/26/16 at 21:00 Pantoprazole (Protonix Tab) 40 mg DAILY@06 PO Last administered on 01/09/17 05 :35; Admin Dose 40 MG; Start 12/27/16 at 06:00 Morphine Sulfate (morphine) 2 mg Q4H PRN IV PAIN LEVEL 6-10 Last administered on 01/07/17 02:42; Admin Dose 2 MG; Start 12/26/16 at 14:30 Diagnostic Test (Pha) (Accu-Chek) 1 ea 02 XX ; Start 12/27/16 at 02:00 Miscellaneous Information 1 ea NOTE XX ; Start 12/26/16 at 14:30 Glucose (Glutose) 15 gm Q15M PRN PO DECREASED GLUCOSE; Start 12/26/16 at 14:30 Glucose (Glutose) 22.5 gm Q15M PRN PO DECREASED GLUCOSE; Start 12/26/16 at 14:30 Dextrose (D50w Syringe) 25 ml Q15M PRN IV DECREASED GLUCOSE; Start 12/26/16 at 14:30 Dextrose (D50w Syringe) 50 ml Q15M PRN IV DECREASED GLUCOSE; Start 12/26/16 at 14:30 Glucagon (Glucagen) 1 mg Q15M PRN IM DECREASED GLUCOSE; Start 12/26/16 at 14:30 Glucose (Glutose) 15 gm Q15M PRN BUCCAL DECREASED GLUCOSE; Start 12/26/16 at 14: 30 Acetaminophen/ Hydrocodone Bitart ([place] (5/325)) 1 tab Q8 PO Last administered on 01/07/17 05:51; Admin Dose 1 TAB; Start 12/26/16 at 22:00 Cholecalciferol (Vitamin D) 1,000 unit DAILY PO Last administered on 01/09/17 08:30; Admin Dose 1,000 UNIT; Start 12/28/16 at 09:00 Insulin Glargine (Lantus) 7 unit DAILY@20 SC Last administered on 01/08/17 20: 15; Admin Dose 7 UNIT; Start 12/29/16 at 20:00 Ondansetron HCl 4 mg 4 mg Q6H PRN IV NAUSEA AND/OR VOMITING Last administered on 01/01/17 10:00; Admin Dose 4 MG; Start 01/01/17 at 10:00 Ertapenem 1 gm/ Sodium Chloride 100 ml @ 200 mls/hr Q24H IVPB Last administered on 01/09/17 15:26; Admin Dose 200 MLS/HR; Start 01/06/17 at 14:30 Sodium Chloride (NS) 1,000 ml @ 75 mls/hr [id number] IV Last administered on 01/09 12:48; Admin Dose 75 MLS/HR; Start 01/06/17 at 18:00 Haloperidol (Haldol) 2 mg Q4H PRN IM AGITATION/ANXIETY Last administered on 22:46; Admin Dose 2 MG; Start 01/08/17 at 01:30 Acetaminophen (Tylenol Tab) 650 mg Q6H PRN PO PAIN AND OR ELEVATED TEMP Last administered on 01/09/17 08:27; Admin Dose 650 MG; Start 01/08/17 at 22:30 Quetiapine Fumarate (Seroquel) 25 mg QHS PRN PO agitation/hallucinations; Start 01/09/17 at 21:00 Miscellaneous Information (*Order Clarification Bulletin) MEDICATION REQUIRES CLARIFICATION: Q6H XX ; Start 01/09/17 at 13:00 RAMON KEMP MD Jan 09, 2017 16:45
[2017-01-09 19:53] VITALS: BP 142/62; RESP 16
[2017-01-09] MEDS: INSULIN GLARGINE [LANtus] 3 ML PEN SC SCH (20:00)
[2017-01-09] MEDS ORDERED: QUETIAPINE 25 MG TAB PO PRN (21:00)
[2017-01-09] MEDS: FAMOTIDINE 20 MG TAB PO SCH (21:11)
--- NOTE | 2017-01-09 21:18 | PN ---
Date/Time of Note Date/Time of Note DATE: 01/09/17 TIME: 21:07 Assessment/Plan VTE Prophylaxis VTE Prophylaxis Intervention: other Lines/Catheters IV Catheter Type (from [facility]): Peripheral IV Urinary Cath still in place: No Assessment/Plan Assessment/Plan - Acute encephalopathy, CT brain is negative for any acute pathology, Dr. Jones is asked to see patient. MRI of the brain without contrast is pending - Bilateral lower extremities gangrene secondary to severe peripheral arterial disease, failed debridement and multiple revascularization procedures. Plan for left AKA patient condition improves by Dr. Valencia. Continue antibiotics per ID. - Diabetes mellitus type II. Continue Lantus and NovoLog. - History of kidney transplant in 2009, on immunosuppressive therapy. - Hypertension. 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 - Anemia of chronic kidney disease. Further recommendations based on clinical course. Plan of care discussed with Dr. Cohen Subjective 24 Hr Interval Summary Free Text/Dictation no acute distress reported by staff, afebrile, confused, sitter at bed side, no fall/injury reported, surgical intervention for LLE gangrene pending as patient is not stable yet. dw staff Respiratory: no complaints Cardiovascular: no complaints Gastrointestinal: no complaints Exam/Review of Systems Vital Signs Vitals Vital Signs Date Time Temp Pulse Resp B/P Pulse Ox O2 Delivery O2 Flow Rate FiO2 01/09/17 14:05 98.5 20 141/79 95 01/09/17 08:00 78 Intake and Output 01/08/17 01/08/17 01/09/17 15:00 23:00 07:00 Intake Total 25 ml 800 ml 1300 ml Balance 25 ml 800 ml 1300 ml Exam Constitutional: alert, frail Respiratory: diminished breath sounds, normal air movement Cardiovascular: nl pulses Gastrointestinal: non-tender, soft Musculoskeletal: other Extremities: normal pulses, other (BLE fade pulses) Neurological: confused Results Result Diagram: 01/09/17 0455 01/09/17 0455 Results 24 hrs Laboratory Tests Test 01/09/17 04:55 01/09/17 08:06 01/09/17 12:48 01/09/17 17:07 White Blood Count 9.7 # Red Blood Count 3.49 L Hemoglobin 9.9 L Hematocrit 28.6 L Mean Corpuscular Volume 81.9 L Mean Corpuscular Hemoglobin 28.4 L Mean Corpuscular Hemoglobin Concent 34.6 Red Cell Distribution Width 13.4 Platelet Count 235 Mean Platelet Volume 12.0 H Neutrophils % 71.7 Lymphocytes % 15.7 Monocytes % 11.6 H Eosinophils % 0.5 Basophils % 0.1 Nucleated Red Blood Cells % 0.0 Neutrophils # 6.9 Lymphocytes # 1.5 Monocytes # 1.1 H Eosinophils # 0.1 Basophils # 0.0 Nucleated Red Blood Cells # 0.0 Sodium Level 128 L Potassium Level 3.8 Chloride Level 98 Carbon Dioxide Level 22 Anion Gap 12 Blood Urea Nitrogen 12 Creatinine 0.52 Glucose Level 89 Calcium Level 9.6 Bedside Glucose 91 169 126 Test 01/09/17 20:42 Bedside Glucose 153 Medications Medications Current Medications Aspirin (Halfprin) 81 mg DAILY PO Last administered on 01/09/17 08:29; Admin Dose 81 MG; Start 12/27/16 at 09:00 Benazepril HCl (Lotensin) 10 mg DAILY PO Last administered on 01/09/17 08:29; Admin Dose 10 MG; Start 12/27/16 at 09:00 Clopidogrel Bisulfate (plaVIX) 75 mg DAILY PO Last administered on 01/09/17 08 :29; Admin Dose 75 MG; Start 12/27/16 at 09:00 Diltiazem HCl (Cardizem Cd) 180 mg DAILY PO Last administered on 01/09/17 08: 28; Admin Dose 180 MG; Start 12/26/16 at 14:00 Famotidine (Pepcid) 40 mg HS PO Last administered on 01/08/17 20:15; Admin Dose 40 MG; Start 12/26/16 at 21:00 Folic Acid (Folic Acid) 1 mg DAILY PO Last administered on 01/09/17 08:30; Admin Dose 1 MG; Start 12/27/16 at 09:00 Gabapentin (Neurontin) 100 mg TID PO Last administered on 01/09/17 12:48; Admin Dose 100 MG; Start 12/26/16 at 21:00 Metoprolol Tartrate (Lopressor) 75 mg BID PO Last administered on 01/09/17 08: 28; Admin Dose 75 MG; Start 12/26/16 at 21:00 Mycophenolate Mofetil (Cellcept) 1,000 mg BID PO Last administered on 08:27; Admin Dose 1,000 MG; Start 12/26/16 at 21:00 Tacrolimus (Prograf) 2 mg Q12 PO Last administered on 01/09/17 08:27; Admin Dose 2 MG; Start 12/26/16 at 21:00 Pantoprazole (Protonix Tab) 40 mg DAILY@06 PO Last administered on 01/09/17 05 :35; Admin Dose 40 MG; Start 12/27/16 at 06:00 Morphine Sulfate (morphine) 2 mg Q4H PRN IV PAIN LEVEL 6-10 Last administered on 01/07/17 02:42; Admin Dose 2 MG; Start 12/26/16 at 14:30 Diagnostic Test (Pha) (Accu-Chek) 1 ea 02 XX ; Start 12/27/16 at 02:00 Miscellaneous Information 1 ea NOTE XX ; Start 12/26/16 at 14:30 Glucose (Glutose) 15 gm Q15M PRN PO DECREASED GLUCOSE; Start 12/26/16 at 14:30 Glucose (Glutose) 22.5 gm Q15M PRN PO DECREASED GLUCOSE; Start 12/26/16 at 14:30 Dextrose (D50w Syringe) 25 ml Q15M PRN IV DECREASED GLUCOSE; Start 12/26/16 at 14:30 Dextrose (D50w Syringe) 50 ml Q15M PRN IV DECREASED GLUCOSE; Start 12/26/16 at 14:30 Glucagon (Glucagen) 1 mg Q15M PRN IM DECREASED GLUCOSE; Start 12/26/16 at 14:30 Glucose (Glutose) 15 gm Q15M PRN BUCCAL DECREASED GLUCOSE; Start 12/26/16 at 14: 30 Acetaminophen/ Hydrocodone Bitart ([place] (5/325)) 1 tab Q8 PO Last administered on 01/07/17 05:51; Admin Dose 1 TAB; Start 12/26/16 at 22:00 Cholecalciferol (Vitamin D) 1,000 unit DAILY PO Last administered on 01/09/17 08:30; Admin Dose 1,000 UNIT; Start 12/28/16 at 09:00 Insulin Glargine (Lantus) 7 unit DAILY@20 SC Last administered on 01/08/17 20: 15; Admin Dose 7 UNIT; Start 12/29/16 at 20:00 Ondansetron HCl 4 mg 4 mg Q6H PRN IV NAUSEA AND/OR VOMITING Last administered on 01/01/17 10:00; Admin Dose 4 MG; Start 01/01/17 at 10:00 Ertapenem 1 gm/ Sodium Chloride 100 ml @ 200 mls/hr Q24H IVPB Last administered on 01/09/17 15:26; Admin Dose 200 MLS/HR; Start 01/06/17 at 14:30 Sodium Chloride (NS) 1,000 ml @ 75 mls/hr [id number] IV Last administered on 01/09 12:48; Admin Dose 75 MLS/HR; Start 01/06/17 at 18:00 Haloperidol (Haldol) 2 mg Q4H PRN IM AGITATION/ANXIETY Last administered on 22:46; Admin Dose 2 MG; Start 01/08/17 at 01:30 Acetaminophen (Tylenol Tab) 650 mg Q6H PRN PO PAIN AND OR ELEVATED TEMP Last administered on 01/09/17 08:27; Admin Dose 650 MG; Start 01/08/17 at 22:30 Quetiapine Fumarate (Seroquel) 25 mg QHS PRN PO agitation/hallucinations; Start 01/09/17 at 21:00 TIM BENNETT Jan 09, 2017 21:18
[2017-01-10] MEDS: ACCU-CHEK XX SCH (00:27)
[2017-01-10 02:00] VITALS: BP 139/72; PULSE 65; RESP 18
[2017-01-10] MEDS: SOD CHLORIDE 0.9% 1,000 ML IV SCH ×3 (02:00→23:38)
[2017-01-10] MEDS: HYDROCODONE/APAP (5/325) TAB PO SCH ×3 (05:20→21:52)
[2017-01-10] MEDS: PANTOPRAZOLE (EC) 40 MG TAB PO SCH (05:24)
[2017-01-10] MEDS: INSULIN ASPART [NOVOLOG] 3 ML PEN SC SCH ×4 (08:00→21:00)
[2017-01-10] MEDS: DILTIAZEM (CD) 180 MG CAP PO SCH (08:55)
[2017-01-10] MEDS: MYCOPHENOLATE 250 MG CAP PO SCH ×2 (08:55→20:58)
[2017-01-10] MEDS: TACROLIMUS 1 MG CAP PO SCH ×2 (08:55→21:52)
[2017-01-10] MEDS: GABAPENTIN 100 MG CAP PO SCH ×3 (08:55→20:59)
[2017-01-10] MEDS: METOPROLOL 25 MG TAB PO SCH ×2 (08:56→21:03)
[2017-01-10] MEDS: CHOLECALCIFEROL 1,000 UNIT TAB PO SCH (08:56)
[2017-01-10] MEDS: ASPIRIN (EC) 81 MG TAB PO SCH (08:56)
[2017-01-10] MEDS: CLOPIDOGREL 75 MG TAB PO SCH (08:56)
[2017-01-10] MEDS: FOLIC ACID 1 MG TAB PO SCH (08:56)
[2017-01-10] MEDS: BENAZEPRIL 10 MG TAB PO SCH (08:57)
[2017-01-10 08:58] VITALS: BP 135/77; RESP 18
[2017-01-10] MEDS: ACETAMINOPHEN 325 MG TAB PO PRN (10:48)
[2017-01-10 11:27] LABS: BASOPHILS % 0.2 % (0.0-2.0); EOSINOPHILS % 0.4 % (0.0-7.0); HEMATOCRIT 31.5 % (37.0-47.0); HEMOGLOBIN 10.6 g/dl (12.0-16.0); LYMPHOCYTES # 0.6 10^3/ul (0.8-2.9); LYMPHOCYTES % 7.7 % (15.0-51.0); MEAN CORPUSCULAR HEMOGLOBIN 28.3 pg (29.0-33.0); MEAN CORPUSCULAR HGB CONC 33.7 g/dl (32.0-37.0); MEAN CORPUSCULAR VOLUME 84.2 fl (82.0-101.0); MEAN PLATELET VOLUME 10.7 fl (7.4-10.4); MONOCYTE # 0.7 10^3/ul (0.3-0.9); MONOCYTES % 8.5 % (0.0-11.0); NEUTROPHIL # 6.9 10^3/ul (1.6-7.5); NEUTROPHILS % 82.8 % (39.0-77.0); PLATELET COUNT 277 10^3/UL (140-415); RED BLOOD COUNT 3.74 10^6/ul (4.20-5.40); RED CELL DISTRIBUTION WIDTH 13.6 % (11.5-14.5); WHITE BLOOD COUNT 8.3 10^3/ul (4.8-10.8)
[2017-01-10 11:53] LABS: CALCIUM 9.2 mg/dl (8.4-10.2); CREATININE 0.51 mg/dl (0.44-1.00); POTASSIUM 3.4 mmol/L (3.5-5.1)
[2017-01-10 14:00] VITALS: BP 124/63; RESP 18
[2017-01-10] MEDS: ERTAPENEM SODIUM 1 GM in SOD CHLORIDE 0.9% 100 ML IVPB SCH (14:01)
--- NOTE | 2017-01-10 14:23 | CONS ---
Date/Time of Note Date/Time of Note DATE: 01/10/17 TIME: 14:22 Assessment/Plan Assessment/Plan Chief Complaint/Hosp Course SUBJECTIVE DATA: Awake, looks comfortable, no fevers MICROBIOLOGY: Right foot culture grew E. coli ESBL. ANTIMICROBIALS: Patient is on Invanz. PHYSICAL EXAMINATION: This is a wasted fragile elderly woman who is awake in no distress. HEENT: Head atraumatic, normocephalic. Sclerae anicteric. NECK: Supple. CHEST: Rise symmetrical. Breath sounds clear. HEART: S1, S2. ABDOMEN: Soft, bowel sounds present. ASSESSMENT: 1. Leukocytosis with worsening mental status, so far no evidence of acute infection except in her feet 2. 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 2. Severe peripheral arterial disease. 3. History of kidney transplant, remains on immunosuppressive therapy. 4. Diabetes and hypertension. 5. Cachexia PLAN: Clinically stable, blood cultures and chest x-ray negative, urine culture pending, continue antibiotics, follow vascular recommendations pending above- knee amputation Problems: Consultation Date/Type/Reason Admit Date/Time Dec 26, 2016 at 13:22 Initial Consult Date 12/27/16 Type of Consultation: id Referring Provider: LES GILLILAND Exam/Review of Systems Vital Signs Vitals Vital Signs Date Time Temp Pulse Resp B/P Pulse Ox O2 Delivery O2 Flow Rate FiO2 01/10/17 08:58 97.5 88 18 135/77 100 01/10/17 02:00 Room Air Intake and Output 01/09/17 01/09/17 01/10/17 15:00 23:00 07:00 Intake Total 900 ml 890 ml 1150 ml Balance 900 ml 890 ml 1150 ml Results Result Diagram: 01/10/17 1108 01/10/17 1108 Results 24 hrs Laboratory Tests Test 01/09/17 17:07 01/09/17 20:42 01/10/17 08:01 01/10/17 11:08 Bedside Glucose 126 153 104 White Blood Count 8.3 Red Blood Count 3.74 L Hemoglobin 10.6 L Hematocrit 31.5 L Mean Corpuscular Volume 84.2 Mean Corpuscular Hemoglobin 28.3 L Mean Corpuscular Hemoglobin Concent 33.7 Red Cell Distribution Width 13.6 Platelet Count 277 Mean Platelet Volume 10.7 H Neutrophils % 82.8 H Lymphocytes % 7.7 L Monocytes % 8.5 Eosinophils % 0.4 Basophils % 0.2 Nucleated Red Blood Cells % 0.0 Neutrophils # 6.9 Lymphocytes # 0.6 L Monocytes # 0.7 Eosinophils # 0.0 Basophils # 0.0 Nucleated Red Blood Cells # 0.0 Sodium Level 129 L Potassium Level 3.4 L Chloride Level 99 Carbon Dioxide Level 22 Anion Gap 11 Blood Urea Nitrogen 6 L Creatinine 0.51 Glucose Level 145 # Calcium Level 9.2 Test 01/10/17 11:43 Bedside Glucose 200 Medications Medications Current Medications Aspirin (Halfprin) 81 mg DAILY PO Last administered on 01/10/17 08:56; Admin Dose 81 MG; Start 12/27/16 at 09:00 Benazepril HCl (Lotensin) 10 mg DAILY PO Last administered on 01/10/17 08:57; Admin Dose 10 MG; Start 12/27/16 at 09:00 Clopidogrel Bisulfate (plaVIX) 75 mg DAILY PO Last administered on 01/10/17 08 :56; Admin Dose 75 MG; Start 12/27/16 at 09:00 Diltiazem HCl (Cardizem Cd) 180 mg DAILY PO Last administered on 01/10/17 08: 55; Admin Dose 180 MG; Start 12/26/16 at 14:00 Famotidine (Pepcid) 40 mg HS PO Last administered on 01/09/17 21:11; Admin Dose 40 MG; Start 12/26/16 at 21:00 Folic Acid (Folic Acid) 1 mg DAILY PO Last administered on 01/10/17 08:56; Admin Dose 1 MG; Start 12/27/16 at 09:00 Gabapentin (Neurontin) 100 mg TID PO Last administered on 01/10/17 12:25; Admin Dose 100 MG; Start 12/26/16 at 21:00 Metoprolol Tartrate (Lopressor) 75 mg BID PO Last administered on 01/10/17 08: 56; Admin Dose 75 MG; Start 12/26/16 at 21:00 Mycophenolate Mofetil (Cellcept) 1,000 mg BID PO Last administered on 08:55; Admin Dose 1,000 MG; Start 12/26/16 at 21:00 Tacrolimus (Prograf) 2 mg Q12 PO Last administered on 01/10/17 08:55; Admin Dose 2 MG; Start 12/26/16 at 21:00 Pantoprazole (Protonix Tab) 40 mg DAILY@06 PO Last administered on 01/10/17 05 :24; Admin Dose 40 MG; Start 12/27/16 at 06:00 Morphine Sulfate (morphine) 2 mg Q4H PRN IV PAIN LEVEL 6-10 Last administered on 01/07/17 02:42; Admin Dose 2 MG; Start 12/26/16 at 14:30 Diagnostic Test (Pha) (Accu-Chek) 1 ea 02 XX ; Start 12/27/16 at 02:00 Miscellaneous Information 1 ea NOTE XX ; Start 12/26/16 at 14:30 Glucose (Glutose) 15 gm Q15M PRN PO DECREASED GLUCOSE; Start 12/26/16 at 14:30 Glucose (Glutose) 22.5 gm Q15M PRN PO DECREASED GLUCOSE; Start 12/26/16 at 14:30 Dextrose (D50w Syringe) 25 ml Q15M PRN IV DECREASED GLUCOSE; Start 12/26/16 at 14:30 Dextrose (D50w Syringe) 50 ml Q15M PRN IV DECREASED GLUCOSE; Start 12/26/16 at 14:30 Glucagon (Glucagen) 1 mg Q15M PRN IM DECREASED GLUCOSE; Start 12/26/16 at 14:30 Glucose (Glutose) 15 gm Q15M PRN BUCCAL DECREASED GLUCOSE; Start 12/26/16 at 14: 30 Acetaminophen/ Hydrocodone Bitart ([place] (5/325)) 1 tab Q8 PO Last administered on 01/10/17 14:00; Admin Dose 1 TAB; Start 12/26/16 at 22:00 Cholecalciferol (Vitamin D) 1,000 unit DAILY PO Last administered on 01/10/17 08:56; Admin Dose 1,000 UNIT; Start 12/28/16 at 09:00 Insulin Glargine (Lantus) 7 unit DAILY@20 SC Last administered on 01/09/17 20: 00; Admin Dose 7 UNIT; Start 12/29/16 at 20:00 Ondansetron HCl 4 mg 4 mg Q6H PRN IV NAUSEA AND/OR VOMITING Last administered on 01/01/17 10:00; Admin Dose 4 MG; Start 01/01/17 at 10:00 Ertapenem 1 gm/ Sodium Chloride 100 ml @ 200 mls/hr Q24H IVPB Last administered on 01/10/17 14:01; Admin Dose 200 MLS/HR; Start 01/06/17 at 14:30 Sodium Chloride (NS) 1,000 ml @ 75 mls/hr [id number] IV Last administered on 01/10 05:24; Admin Dose 75 MLS/HR; Start 01/06/17 at 18:00 Haloperidol (Haldol) 2 mg Q4H PRN IM AGITATION/ANXIETY Last administered on 22:46; Admin Dose 2 MG; Start 01/08/17 at 01:30 Acetaminophen (Tylenol Tab) 650 mg Q6H PRN PO PAIN AND OR ELEVATED TEMP Last administered on 01/10/17 10:48; Admin Dose 650 MG; Start 01/08/17 at 22:30 Quetiapine Fumarate (Seroquel) 25 mg QHS PRN PO agitation/hallucinations Last administered on 01/09/17 22:15; Admin Dose 25 MG; Start 01/09/17 at 21:00 JACQUES HUERTA NP Jan 10, 2017 14:23
--- NOTE | 2017-01-10 14:47 | CONS ---
Date/Time of Note Date/Time of Note DATE: 01/10/17 TIME: 14:47 Assessment/Plan Assessment/Plan Additional Assessment/Plan 1. 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 2. h/o donor kidney transplant in 2009 at [facility], currently on immunosuppression with Prograf, CellCept 4. 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 History of hypertension. 6. History of diabetes mellitus. 7. History of previous left upper extremity arteriovenous fistula. 8. Hyponatremia due to hypovolemic hyponatremia Plan: continue Current immunosuppression Prograf and cellcept, Cr normal, plan for left AKA as per when pt is more stable - yesterday I had a discussion with about Need for surgery Juliet Horan was worried about unexplained weight loss, to rule out malignancy, I got CT chest+ abd+pelvis with and without contrast negative for mass/LAD/Malignancy continue IVF NS since pt has contrast exposure today with CT, will monitor Cr IV abx as per ID KCL 20mEQ IV x 1 dose now ID, vascular surgery and Primary care following on paient. Consultation Date/Type/Reason Admit Date/Time Dec 26, 2016 at 13:22 Initial Consult Date 12/27/16 Type of Consultation: NEPHROLOGY Referring Provider: LES GILLILAND 24 HR Interval Summary Free Text/Dictation doing ok, BP stable, CT chest abd + pelvis negative for mass Exam/Review of Systems Vital Signs Vitals Vital Signs Date Time Temp Pulse Resp B/P Pulse Ox O2 Delivery O2 Flow Rate FiO2 01/10/17 08:58 97.5 88 18 135/77 100 01/10/17 02:00 Room Air Intake and Output 01/09/17 01/09/17 01/10/17 15:00 23:00 07:00 Intake Total 900 ml 890 ml 1150 ml Balance 900 ml 890 ml 1150 ml Results Result Diagram: 01/10/17 1108 01/10/17 1108 Results 24 hrs Laboratory Tests Test 01/09/17 17:07 01/09/17 20:42 01/10/17 08:01 01/10/17 11:08 Bedside Glucose 126 153 104 White Blood Count 8.3 Red Blood Count 3.74 L Hemoglobin 10.6 L Hematocrit 31.5 L Mean Corpuscular Volume 84.2 Mean Corpuscular Hemoglobin 28.3 L Mean Corpuscular Hemoglobin Concent 33.7 Red Cell Distribution Width 13.6 Platelet Count 277 Mean Platelet Volume 10.7 H Neutrophils % 82.8 H Lymphocytes % 7.7 L Monocytes % 8.5 Eosinophils % 0.4 Basophils % 0.2 Nucleated Red Blood Cells % 0.0 Neutrophils # 6.9 Lymphocytes # 0.6 L Monocytes # 0.7 Eosinophils # 0.0 Basophils # 0.0 Nucleated Red Blood Cells # 0.0 Sodium Level 129 L Potassium Level 3.4 L Chloride Level 99 Carbon Dioxide Level 22 Anion Gap 11 Blood Urea Nitrogen 6 L Creatinine 0.51 Glucose Level 145 # Calcium Level 9.2 Test 01/10/17 11:43 Bedside Glucose 200 Medications Medications Current Medications Aspirin (Halfprin) 81 mg DAILY PO Last administered on 01/10/17 08:56; Admin Dose 81 MG; Start 12/27/16 at 09:00 Benazepril HCl (Lotensin) 10 mg DAILY PO Last administered on 01/10/17 08:57; Admin Dose 10 MG; Start 12/27/16 at 09:00 Clopidogrel Bisulfate (plaVIX) 75 mg DAILY PO Last administered on 01/10/17 08 :56; Admin Dose 75 MG; Start 12/27/16 at 09:00 Diltiazem HCl (Cardizem Cd) 180 mg DAILY PO Last administered on 01/10/17 08: 55; Admin Dose 180 MG; Start 12/26/16 at 14:00 Famotidine (Pepcid) 40 mg HS PO Last administered on 01/09/17 21:11; Admin Dose 40 MG; Start 12/26/16 at 21:00 Folic Acid (Folic Acid) 1 mg DAILY PO Last administered on 01/10/17 08:56; Admin Dose 1 MG; Start 12/27/16 at 09:00 Gabapentin (Neurontin) 100 mg TID PO Last administered on 01/10/17 12:25; Admin Dose 100 MG; Start 12/26/16 at 21:00 Metoprolol Tartrate (Lopressor) 75 mg BID PO Last administered on 01/10/17 08: 56; Admin Dose 75 MG; Start 12/26/16 at 21:00 Mycophenolate Mofetil (Cellcept) 1,000 mg BID PO Last administered on 08:55; Admin Dose 1,000 MG; Start 12/26/16 at 21:00 Tacrolimus (Prograf) 2 mg Q12 PO Last administered on 01/10/17 08:55; Admin Dose 2 MG; Start 12/26/16 at 21:00 Pantoprazole (Protonix Tab) 40 mg DAILY@06 PO Last administered on 01/10/17 05 :24; Admin Dose 40 MG; Start 12/27/16 at 06:00 Morphine Sulfate (morphine) 2 mg Q4H PRN IV PAIN LEVEL 6-10 Last administered on 01/07/17 02:42; Admin Dose 2 MG; Start 12/26/16 at 14:30 Diagnostic Test (Pha) (Accu-Chek) 1 ea 02 XX ; Start 12/27/16 at 02:00 Miscellaneous Information 1 ea NOTE XX ; Start 12/26/16 at 14:30 Glucose (Glutose) 15 gm Q15M PRN PO DECREASED GLUCOSE; Start 12/26/16 at 14:30 Glucose (Glutose) 22.5 gm Q15M PRN PO DECREASED GLUCOSE; Start 12/26/16 at 14:30 Dextrose (D50w Syringe) 25 ml Q15M PRN IV DECREASED GLUCOSE; Start 12/26/16 at 14:30 Dextrose (D50w Syringe) 50 ml Q15M PRN IV DECREASED GLUCOSE; Start 12/26/16 at 14:30 Glucagon (Glucagen) 1 mg Q15M PRN IM DECREASED GLUCOSE; Start 12/26/16 at 14:30 Glucose (Glutose) 15 gm Q15M PRN BUCCAL DECREASED GLUCOSE; Start 12/26/16 at 14: 30 Acetaminophen/ Hydrocodone Bitart ([place] (5/325)) 1 tab Q8 PO Last administered on 01/10/17 14:00; Admin Dose 1 TAB; Start 12/26/16 at 22:00 Cholecalciferol (Vitamin D) 1,000 unit DAILY PO Last administered on 01/10/17 08:56; Admin Dose 1,000 UNIT; Start 12/28/16 at 09:00 Insulin Glargine (Lantus) 7 unit DAILY@20 SC Last administered on 01/09/17 20: 00; Admin Dose 7 UNIT; Start 12/29/16 at 20:00 Ondansetron HCl 4 mg 4 mg Q6H PRN IV NAUSEA AND/OR VOMITING Last administered on 01/01/17 10:00; Admin Dose 4 MG; Start 01/01/17 at 10:00 Ertapenem 1 gm/ Sodium Chloride 100 ml @ 200 mls/hr Q24H IVPB Last administered on 01/10/17 14:01; Admin Dose 200 MLS/HR; Start 01/06/17 at 14:30 Sodium Chloride (NS) 1,000 ml @ 75 mls/hr [id number] IV Last administered on 01/10 05:24; Admin Dose 75 MLS/HR; Start 01/06/17 at 18:00 Haloperidol (Haldol) 2 mg Q4H PRN IM AGITATION/ANXIETY Last administered on 22:46; Admin Dose 2 MG; Start 01/08/17 at 01:30 Acetaminophen (Tylenol Tab) 650 mg Q6H PRN PO PAIN AND OR ELEVATED TEMP Last administered on 01/10/17 10:48; Admin Dose 650 MG; Start 01/08/17 at 22:30 Quetiapine Fumarate (Seroquel) 25 mg QHS PRN PO agitation/hallucinations Last administered on 01/09/17 22:15; Admin Dose 25 MG; Start 01/09/17 at 21:00 RAMON KEMP MD Jan 10, 2017 14:47
--- NOTE | 2017-01-10 15:40 | CONS ---
Date/Time of Note Date/Time of Note DATE: 01/10/17 TIME: 15:36 Assessment/Plan Assessment/Plan Chief Complaint/Hosp Course IMP: 1.Clt-lx-leccsu test 10/2016 with no ischemia/only scar/NL EF. Negative trop x 3. Patient is ok to proceed to OR at moderate risk without further noninvasive evaluation on current medications 2.HTN-labile but reasonable control 3.PAD with bilateral gangrene 4.DM 5.Anemia 6. Encephalopathy Recc: -Continuer asa/plavix -Cointinue benazepril/metoprolol -Local wound care -Continue abx's and f/u cx data -pnding LE amputation when stable Problems: Consultation Date/Type/Reason Admit Date/Time Dec 26, 2016 at 13:22 Initial Consult Date 12/27/16 Type of Consultation: cardiology Reason for Consultation pre-op Referring Provider: LES GILLILAND Exam/Review of Systems Vital Signs Vitals Vital Signs Date Time Temp Pulse Resp B/P Pulse Ox O2 Delivery O2 Flow Rate FiO2 01/10/17 08:58 97.5 88 18 135/77 100 01/10/17 02:00 Room Air Intake and Output 01/09/17 01/09/17 01/10/17 15:00 23:00 07:00 Intake Total 900 ml 890 ml 1150 ml Balance 900 ml 890 ml 1150 ml Exam Review of Systems: CONSTITUTIONAL: No fevers, chills. PULMONARY: No sob CARDIOVASCULAR: No chest pain/palpitations GASTROINTESTINAL: No nausea/vomiting. GENITOURINARY: No hematuria/dysuria. MUSCULOSKELETAL: pain in foot PSYCHIATRIC: The patient denies depression. NEUROLOGIC: No weakness Constitutional: alert Psych: no complaints ENMT: mucosa pink and moist Neck: jvd (9), supple Respiratory: diminished breath sounds Cardiovascular: regular rate and rhythm Gastrointestinal: soft Musculoskeletal: muscle tone (normal) Extremities: edema (none) Neurological: other Results Result Diagram: 01/10/17 1108 01/10/17 1108 Results 24 hrs Laboratory Tests Test 01/09/17 17:07 01/09/17 20:42 01/10/17 08:01 01/10/17 11:08 Bedside Glucose 126 153 104 White Blood Count 8.3 Red Blood Count 3.74 L Hemoglobin 10.6 L Hematocrit 31.5 L Mean Corpuscular Volume 84.2 Mean Corpuscular Hemoglobin 28.3 L Mean Corpuscular Hemoglobin Concent 33.7 Red Cell Distribution Width 13.6 Platelet Count 277 Mean Platelet Volume 10.7 H Neutrophils % 82.8 H Lymphocytes % 7.7 L Monocytes % 8.5 Eosinophils % 0.4 Basophils % 0.2 Nucleated Red Blood Cells % 0.0 Neutrophils # 6.9 Lymphocytes # 0.6 L Monocytes # 0.7 Eosinophils # 0.0 Basophils # 0.0 Nucleated Red Blood Cells # 0.0 Sodium Level 129 L Potassium Level 3.4 L Chloride Level 99 Carbon Dioxide Level 22 Anion Gap 11 Blood Urea Nitrogen 6 L Creatinine 0.51 Glucose Level 145 # Calcium Level 9.2 Test 01/10/17 11:43 Bedside Glucose 200 Medications Medications Current Medications Aspirin (Halfprin) 81 mg DAILY PO Last administered on 01/10/17 08:56; Admin Dose 81 MG; Start 12/27/16 at 09:00 Benazepril HCl (Lotensin) 10 mg DAILY PO Last administered on 01/10/17 08:57; Admin Dose 10 MG; Start 12/27/16 at 09:00 Clopidogrel Bisulfate (plaVIX) 75 mg DAILY PO Last administered on 01/10/17 08 :56; Admin Dose 75 MG; Start 12/27/16 at 09:00 Diltiazem HCl (Cardizem Cd) 180 mg DAILY PO Last administered on 01/10/17 08: 55; Admin Dose 180 MG; Start 12/26/16 at 14:00 Famotidine (Pepcid) 40 mg HS PO Last administered on 01/09/17 21:11; Admin Dose 40 MG; Start 12/26/16 at 21:00 Folic Acid (Folic Acid) 1 mg DAILY PO Last administered on 01/10/17 08:56; Admin Dose 1 MG; Start 12/27/16 at 09:00 Gabapentin (Neurontin) 100 mg TID PO Last administered on 01/10/17 12:25; Admin Dose 100 MG; Start 12/26/16 at 21:00 Metoprolol Tartrate (Lopressor) 75 mg BID PO Last administered on 01/10/17 08: 56; Admin Dose 75 MG; Start 12/26/16 at 21:00 Mycophenolate Mofetil (Cellcept) 1,000 mg BID PO Last administered on 08:55; Admin Dose 1,000 MG; Start 12/26/16 at 21:00 Tacrolimus (Prograf) 2 mg Q12 PO Last administered on 01/10/17 08:55; Admin Dose 2 MG; Start 12/26/16 at 21:00 Pantoprazole (Protonix Tab) 40 mg DAILY@06 PO Last administered on 01/10/17 05 :24; Admin Dose 40 MG; Start 12/27/16 at 06:00 Morphine Sulfate (morphine) 2 mg Q4H PRN IV PAIN LEVEL 6-10 Last administered on 01/07/17 02:42; Admin Dose 2 MG; Start 12/26/16 at 14:30 Diagnostic Test (Pha) (Accu-Chek) 1 ea 02 XX ; Start 12/27/16 at 02:00 Miscellaneous Information 1 ea NOTE XX ; Start 12/26/16 at 14:30 Glucose (Glutose) 15 gm Q15M PRN PO DECREASED GLUCOSE; Start 12/26/16 at 14:30 Glucose (Glutose) 22.5 gm Q15M PRN PO DECREASED GLUCOSE; Start 12/26/16 at 14:30 Dextrose (D50w Syringe) 25 ml Q15M PRN IV DECREASED GLUCOSE; Start 12/26/16 at 14:30 Dextrose (D50w Syringe) 50 ml Q15M PRN IV DECREASED GLUCOSE; Start 12/26/16 at 14:30 Glucagon (Glucagen) 1 mg Q15M PRN IM DECREASED GLUCOSE; Start 12/26/16 at 14:30 Glucose (Glutose) 15 gm Q15M PRN BUCCAL DECREASED GLUCOSE; Start 12/26/16 at 14: 30 Acetaminophen/ Hydrocodone Bitart ([place] (5/325)) 1 tab Q8 PO Last administered on 01/10/17 14:00; Admin Dose 1 TAB; Start 12/26/16 at 22:00 Cholecalciferol (Vitamin D) 1,000 unit DAILY PO Last administered on 01/10/17 08:56; Admin Dose 1,000 UNIT; Start 12/28/16 at 09:00 Insulin Glargine (Lantus) 7 unit DAILY@20 SC Last administered on 01/09/17 20: 00; Admin Dose 7 UNIT; Start 9/10/17 at 20:00 Ondansetron HCl 4 mg 4 mg Q6H PRN IV NAUSEA AND/OR VOMITING Last administered on 01/01/17 10:00; Admin Dose 4 MG; Start 01/01/17 at 10:00 Ertapenem 1 gm/ Sodium Chloride 100 ml @ 200 mls/hr Q24H IVPB Last administered on 01/10/17 14:01; Admin Dose 200 MLS/HR; Start 01/06/17 at 14:30 Sodium Chloride (NS) 1,000 ml @ 75 mls/hr [id number] IV Last administered on 01/10 05:24; Admin Dose 75 MLS/HR; Start 01/06/17 at 18:00 Haloperidol (Haldol) 2 mg Q4H PRN IM AGITATION/ANXIETY Last administered on 22:46; Admin Dose 2 MG; Start 01/08/17 at 01:30 Acetaminophen (Tylenol Tab) 650 mg Q6H PRN PO PAIN AND OR ELEVATED TEMP Last administered on 01/10/17 10:48; Admin Dose 650 MG; Start 01/08/17 at 22:30 Quetiapine Fumarate 25 mg 25 mg QHS PRN PO agitation/hallucinations Last administered on 01/09/17 22:15; Admin Dose 25 MG; Start 01/09/17 at 21:00 Potassium Chloride/Sodium Chloride (KCl/NS) 110 ml @ 55 mls/hr ONCE ONCE IVPB ; Start 01/10/17 at 16:30; Stop 01/10/17 at 18:29 TIMOTHY CORTES Jan 10, 2017 15:40
[2017-01-10] MEDS ORDERED: POTASSIUM CHLORIDE 20 MEQ in SOD CHLORIDE 0.9% 100 ML IVPB ONE (16:30)
--- NOTE | 2017-01-10 17:42 | CONS ---
Date/Time of Note Date/Time of Note DATE: 01/10/17 TIME: 17:39 Assessment/Plan Assessment/Plan Chief Complaint/Hosp Course Altered mental status and gangrene at the left foot Problems: Additional Assessment/Plan 61 yo female with history of advanced peripheral arterial disease, bilateral feet gangrene with e.coli ESBL, history of kidney transplant remains on immunosuppressive therapy, DM, HTN admitted for AKA with hallucinations, delirium. MRI of the brain showed marked bifrontal cerebral volume loss, minimal dural enhancement which is nonspecific. He is being planned to have left below-knee amputation. Recommendations: -avoid overly sedating medications --trial of low dose seroquel 25 mg qhs prn for agitation/delirium over night -continue infectious work up -will continue to follow Consultation Date/Type/Reason Admit Date/Time Dec 26, 2016 at 13:22 Initial Consult Date 01/09/17 Type of Consultation: Neurology Referring Provider: LES GILLILAND 24 HR Interval Summary Free Text/Dictation Improving in her mental status Constitutional: improved, no complaints Exam/Review of Systems Vital Signs Vitals Vital Signs Date Time Temp Pulse Resp B/P Pulse Ox O2 Delivery O2 Flow Rate FiO2 01/10/17 14:00 98.3 80 18 124/63 96 01/10/17 02:00 Room Air Intake and Output 01/09/17 01/09/17 01/10/17 15:00 23:00 07:00 Intake Total 900 ml 890 ml 1150 ml Balance 900 ml 890 ml 1150 ml Exam Constitutional: alert Psych: nl mood/affect, no complaints Head: atraumatic, normocephalic Eyes: EOMI, nl conjunctiva, nl lids, nl sclera ENMT: mucosa pink and moist, nl external ears & nose, nl lips & teeth, nl nasal mucosa & septum Neck: non-tender, supple Respiratory: clear to auscultation, normal air movement Cardiovascular: regular rate and rhythm Gastrointestinal: nl liver, spleen, non-tender, soft Extremities: normal pulses Neurological: confused (Areflexia, decreased to light touch pinprick and vibration bilateral toes) Results Result Diagram: 01/10/17 1108 01/10/17 1108 Results 24 hrs Laboratory Tests Test 01/09/17 20:42 01/10/17 08:01 01/10/17 11:08 01/10/17 11:43 Bedside Glucose 153 104 200 White Blood Count 8.3 Red Blood Count 3.74 L Hemoglobin 10.6 L Hematocrit 31.5 L Mean Corpuscular Volume 84.2 Mean Corpuscular Hemoglobin 28.3 L Mean Corpuscular Hemoglobin Concent 33.7 Red Cell Distribution Width 13.6 Platelet Count 277 Mean Platelet Volume 10.7 H Neutrophils % 82.8 H Lymphocytes % 7.7 L Monocytes % 8.5 Eosinophils % 0.4 Basophils % 0.2 Nucleated Red Blood Cells % 0.0 Neutrophils # 6.9 Lymphocytes # 0.6 L Monocytes # 0.7 Eosinophils # 0.0 Basophils # 0.0 Nucleated Red Blood Cells # 0.0 Sodium Level 129 L Potassium Level 3.4 L Chloride Level 99 Carbon Dioxide Level 22 Anion Gap 11 Blood Urea Nitrogen 6 L Creatinine 0.51 Glucose Level 145 # Calcium Level 9.2 Test 01/10/17 17:27 Bedside Glucose 117 Medications Medications Current Medications Aspirin (Halfprin) 81 mg DAILY PO Last administered on 01/10/17 08:56; Admin Dose 81 MG; Start 12/27/16 at 09:00 Benazepril HCl (Lotensin) 10 mg DAILY PO Last administered on 01/10/17 08:57; Admin Dose 10 MG; Start 12/27/16 at 09:00 Clopidogrel Bisulfate (plaVIX) 75 mg DAILY PO Last administered on 01/10/17 08 :56; Admin Dose 75 MG; Start 12/27/16 at 09:00 Diltiazem HCl (Cardizem Cd) 180 mg DAILY PO Last administered on 01/10/17 08: 55; Admin Dose 180 MG; Start 12/26/16 at 14:00 Famotidine (Pepcid) 40 mg HS PO Last administered on 01/09/17 21:11; Admin Dose 40 MG; Start 12/26/16 at 21:00 Folic Acid (Folic Acid) 1 mg DAILY PO Last administered on 01/10/17 08:56; Admin Dose 1 MG; Start 12/27/16 at 09:00 Gabapentin (Neurontin) 100 mg TID PO Last administered on 01/10/17 12:25; Admin Dose 100 MG; Start 12/26/16 at 21:00 Metoprolol Tartrate (Lopressor) 75 mg BID PO Last administered on 01/10/17 08: 56; Admin Dose 75 MG; Start 12/26/16 at 21:00 Mycophenolate Mofetil (Cellcept) 1,000 mg BID PO Last administered on 08:55; Admin Dose 1,000 MG; Start 12/26/16 at 21:00 Tacrolimus (Prograf) 2 mg Q12 PO Last administered on 01/10/17 08:55; Admin Dose 2 MG; Start 12/26/16 at 21:00 Pantoprazole (Protonix Tab) 40 mg DAILY@06 PO Last administered on 01/10/17 05 :24; Admin Dose 40 MG; Start 12/27/16 at 06:00 Morphine Sulfate (morphine) 2 mg Q4H PRN IV PAIN LEVEL 6-10 Last administered on 01/07/17 02:42; Admin Dose 2 MG; Start 12/26/16 at 14:30 Diagnostic Test (Pha) (Accu-Chek) 1 ea 02 XX ; Start 12/27/16 at 02:00 Miscellaneous Information 1 ea NOTE XX ; Start 12/26/16 at 14:30 Glucose (Glutose) 15 gm Q15M PRN PO DECREASED GLUCOSE; Start 12/26/16 at 14:30 Glucose (Glutose) 22.5 gm Q15M PRN PO DECREASED GLUCOSE; Start 12/26/16 at 14:30 Dextrose (D50w Syringe) 25 ml Q15M PRN IV DECREASED GLUCOSE; Start 12/26/16 at 14:30 Dextrose (D50w Syringe) 50 ml Q15M PRN IV DECREASED GLUCOSE; Start 12/26/16 at 14:30 Glucagon (Glucagen) 1 mg Q15M PRN IM DECREASED GLUCOSE; Start 12/26/16 at 14:30 Glucose (Glutose) 15 gm Q15M PRN BUCCAL DECREASED GLUCOSE; Start 12/26/16 at 14: 30 Acetaminophen/ Hydrocodone Bitart ([place] (5/325)) 1 tab Q8 PO Last administered on 01/10/17 14:00; Admin Dose 1 TAB; Start 12/26/16 at 22:00 Cholecalciferol (Vitamin D) 1,000 unit DAILY PO Last administered on 01/10/17 08:56; Admin Dose 1,000 UNIT; Start 12/28/16 at 09:00 Insulin Glargine (Lantus) 7 unit DAILY@20 SC Last administered on 01/09/17 20: 00; Admin Dose 7 UNIT; Start 12/29/16 at 20:00 Ondansetron HCl 4 mg 4 mg Q6H PRN IV NAUSEA AND/OR VOMITING Last administered on 01/01/17 10:00; Admin Dose 4 MG; Start 01/01/17 at 10:00 Ertapenem 1 gm/ Sodium Chloride 100 ml @ 200 mls/hr Q24H IVPB Last administered on 01/10/17 14:01; Admin Dose 200 MLS/HR; Start 01/06/17 at 14:30 Sodium Chloride (NS) 1,000 ml @ 75 mls/hr [id number] IV Last administered on 01/10 05:24; Admin Dose 75 MLS/HR; Start 01/06/17 at 18:00 Haloperidol (Haldol) 2 mg Q4H PRN IM AGITATION/ANXIETY Last administered on 22:46; Admin Dose 2 MG; Start 01/08/17 at 01:30 Acetaminophen (Tylenol Tab) 650 mg Q6H PRN PO PAIN AND OR ELEVATED TEMP Last administered on 01/10/17 10:48; Admin Dose 650 MG; Start 01/08/17 at 22:30 Quetiapine Fumarate 25 mg 25 mg QHS PRN PO agitation/hallucinations Last administered on 01/09/17 22:15; Admin Dose 25 MG; Start 01/09/17 at 21:00 Potassium Chloride/Sodium Chloride (KCl/NS) 110 ml @ 55 mls/hr ONCE ONCE IVPB ; Start 01/10/17 at 16:30; Stop 01/10/17 at 18:29 Procedures Procedures MRI of brain 01/09/2017 IMPRESSION: 1. Marked bifrontal cerebral volume loss. 2. Mild white matter changes, a nonspecific finding often associated with chronic microangiopathy. 3. Trace dural enhancement overlying the left frontal convexity, a nonspecific finding which can be associated with infection, tumor, and granulomatous like processes. RPTAT: AA Martina Nazario Physician Date Time Electronically viewed and signed by Martina Nazario, Physician on 01/09/2017 14: 17 JOVANNA LAL MD Jan 10, 2017 17:42
--- NOTE | 2017-01-10 18:33 | PN ---
Date/Time of Note Date/Time of Note DATE: 01/10/17 TIME: 18:29 Assessment/Plan VTE Prophylaxis VTE Prophylaxis Intervention: SCD's Lines/Catheters IV Catheter Type (from [facility]): Peripheral IV Urinary Cath still in place: No Assessment/Plan Chief Complaint/Hosp Course Patient is hemodynamically stable however continues to have results of confusion and hallucinations Assessment/Plan - Acute encephalopathy, CT brain is negative for any acute pathology, Dr. Bob, neurology is following. 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 Plan for left AKA patient condition improves by Dr. Valencia. Continue antibiotics per ID. - Diabetes mellitus type II. Continue Lantus and NovoLog. - History of kidney transplant in 2009, on immunosuppressive therapy. - Hypertension. 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 - Anemia of chronic kidney disease. Further recommendations based on clinical course. Plan of care discussed with Dr. Cohen Problems: Exam/Review of Systems Vital Signs Vitals Vital Signs Date Time Temp Pulse Resp B/P Pulse Ox O2 Delivery O2 Flow Rate FiO2 01/10/17 14:00 98.3 80 18 124/63 96 01/10/17 02:00 Room Air Intake and Output 01/09/17 01/09/17 01/10/17 15:00 23:00 07:00 Intake Total 900 ml 890 ml 1150 ml Balance 900 ml 890 ml 1150 ml Exam Constitutional: confused Neck: supple Respiratory: clear to auscultation Cardiovascular: nl pulses Gastrointestinal: non-tender, soft Extremities: other (Bilateral feet gangrene) Results Result Diagram: 01/10/17 1108 01/10/17 1108 Results 24 hrs Laboratory Tests Test 01/09/17 20:42 01/10/17 08:01 01/10/17 11:08 01/10/17 11:43 Bedside Glucose 153 104 200 White Blood Count 8.3 Red Blood Count 3.74 L Hemoglobin 10.6 L Hematocrit 31.5 L Mean Corpuscular Volume 84.2 Mean Corpuscular Hemoglobin 28.3 L Mean Corpuscular Hemoglobin Concent 33.7 Red Cell Distribution Width 13.6 Platelet Count 277 Mean Platelet Volume 10.7 H Neutrophils % 82.8 H Lymphocytes % 7.7 L Monocytes % 8.5 Eosinophils % 0.4 Basophils % 0.2 Nucleated Red Blood Cells % 0.0 Neutrophils # 6.9 Lymphocytes # 0.6 L Monocytes # 0.7 Eosinophils # 0.0 Basophils # 0.0 Nucleated Red Blood Cells # 0.0 Sodium Level 129 L Potassium Level 3.4 L Chloride Level 99 Carbon Dioxide Level 22 Anion Gap 11 Blood Urea Nitrogen 6 L Creatinine 0.51 Glucose Level 145 # Calcium Level 9.2 Test 01/10/17 17:27 Bedside Glucose 117 Medications Medications Current Medications Aspirin (Halfprin) 81 mg DAILY PO Last administered on 01/10/17 08:56; Admin Dose 81 MG; Start 12/27/16 at 09:00 Benazepril HCl (Lotensin) 10 mg DAILY PO Last administered on 01/10/17 08:57; Admin Dose 10 MG; Start 12/27/16 at 09:00 Clopidogrel Bisulfate (plaVIX) 75 mg DAILY PO Last administered on 01/10/17 08 :56; Admin Dose 75 MG; Start 12/27/16 at 09:00 Diltiazem HCl (Cardizem Cd) 180 mg DAILY PO Last administered on 01/10/17 08: 55; Admin Dose 180 MG; Start 12/26/16 at 14:00 Famotidine (Pepcid) 40 mg HS PO Last administered on 01/09/17 21:11; Admin Dose 40 MG; Start 12/26/16 at 21:00 Folic Acid (Folic Acid) 1 mg DAILY PO Last administered on 01/10/17 08:56; Admin Dose 1 MG; Start 12/27/16 at 09:00 Gabapentin (Neurontin) 100 mg TID PO Last administered on 01/10/17 12:25; Admin Dose 100 MG; Start 12/26/16 at 21:00 Metoprolol Tartrate (Lopressor) 75 mg BID PO Last administered on 01/10/17 08: 56; Admin Dose 75 MG; Start 12/26/16 at 21:00 Mycophenolate Mofetil (Cellcept) 1,000 mg BID PO Last administered on 08:55; Admin Dose 1,000 MG; Start 12/26/16 at 21:00 Tacrolimus (Prograf) 2 mg Q12 PO Last administered on 01/10/17 08:55; Admin Dose 2 MG; Start 12/26/16 at 21:00 Pantoprazole (Protonix Tab) 40 mg DAILY@06 PO Last administered on 01/10/17 05 :24; Admin Dose 40 MG; Start 12/27/16 at 06:00 Morphine Sulfate (morphine) 2 mg Q4H PRN IV PAIN LEVEL 6-10 Last administered on 01/07/17 02:42; Admin Dose 2 MG; Start 12/26/16 at 14:30 Diagnostic Test (Pha) (Accu-Chek) 1 ea 02 XX ; Start 12/27/16 at 02:00 Miscellaneous Information 1 ea NOTE XX ; Start 12/26/16 at 14:30 Glucose (Glutose) 15 gm Q15M PRN PO DECREASED GLUCOSE; Start 12/26/16 at 14:30 Glucose (Glutose) 22.5 gm Q15M PRN PO DECREASED GLUCOSE; Start 12/26/16 at 14:30 Dextrose (D50w Syringe) 25 ml Q15M PRN IV DECREASED GLUCOSE; Start 12/26/16 at 14:30 Dextrose (D50w Syringe) 50 ml Q15M PRN IV DECREASED GLUCOSE; Start 12/26/16 at 14:30 Glucagon (Glucagen) 1 mg Q15M PRN IM DECREASED GLUCOSE; Start 12/26/16 at 14:30 Glucose (Glutose) 15 gm Q15M PRN BUCCAL DECREASED GLUCOSE; Start 12/26/16 at 14: 30 Acetaminophen/ Hydrocodone Bitart ([place] (5/325)) 1 tab Q8 PO Last administered on 01/10/17 14:00; Admin Dose 1 TAB; Start 12/26/16 at 22:00 Cholecalciferol (Vitamin D) 1,000 unit DAILY PO Last administered on 01/10/17 08:56; Admin Dose 1,000 UNIT; Start 12/28/16 at 09:00 Insulin Glargine (Lantus) 7 unit DAILY@20 SC Last administered on 01/09/17 20: 00; Admin Dose 7 UNIT; Start 12/29/16 at 20:00 Ondansetron HCl 4 mg 4 mg Q6H PRN IV NAUSEA AND/OR VOMITING Last administered on 01/01/17 10:00; Admin Dose 4 MG; Start 01/01/17 at 10:00 Ertapenem 1 gm/ Sodium Chloride 100 ml @ 200 mls/hr Q24H IVPB Last administered on 01/10/17 14:01; Admin Dose 200 MLS/HR; Start 01/06/17 at 14:30 Sodium Chloride (NS) 1,000 ml @ 75 mls/hr [id number] IV Last administered on 01/10 05:24; Admin Dose 75 MLS/HR; Start 01/06/17 at 18:00 Haloperidol (Haldol) 2 mg Q4H PRN IM AGITATION/ANXIETY Last administered on 22:46; Admin Dose 2 MG; Start 01/08/17 at 01:30 Acetaminophen (Tylenol Tab) 650 mg Q6H PRN PO PAIN AND OR ELEVATED TEMP Last administered on 01/10/17 10:48; Admin Dose 650 MG; Start 01/08/17 at 22:30 Quetiapine Fumarate (Seroquel) 25 mg QHS PRN PO agitation/hallucinations Last administered on 01/09/17 22:15; Admin Dose 25 MG; Start 01/09/17 at 21:00 LES GILLILAND Jan 10, 2017 18:33
[2017-01-10 20:00] VITALS: BP 126/72; RESP 18
[2017-01-10] MEDS: FAMOTIDINE 20 MG TAB PO SCH (20:59)
[2017-01-10] MEDS: INSULIN GLARGINE [LANtus] 3 ML PEN SC SCH (21:04)
[2017-01-11 02:00] VITALS: BP 140/70; RESP 18
[2017-01-11] MEDS: ACCU-CHEK XX SCH (02:00)
[2017-01-11] MEDS: PANTOPRAZOLE (EC) 40 MG TAB PO SCH (05:49)
[2017-01-11] MEDS: HYDROCODONE/APAP (5/325) TAB PO SCH ×3 (05:49→21:29)
[2017-01-11 06:30] LABS: BASOPHILS % 0.1 % (0.0-2.0); EOSINOPHILS # 0.1 10^3/ul (0.0-0.5); EOSINOPHILS % 1.1 % (0.0-7.0); HEMATOCRIT 30.7 % (37.0-47.0); HEMOGLOBIN 10.1 g/dl (12.0-16.0); LYMPHOCYTES # 0.8 10^3/ul (0.8-2.9); LYMPHOCYTES % 11.4 % (15.0-51.0); MEAN CORPUSCULAR HEMOGLOBIN 28.3 pg (29.0-33.0); MEAN CORPUSCULAR HGB CONC 32.9 g/dl (32.0-37.0); MONOCYTE # 0.8 10^3/ul (0.3-0.9); MONOCYTES % 11.4 % (0.0-11.0); NEUTROPHIL # 5.6 10^3/ul (1.6-7.5); NEUTROPHILS % 75.6 % (39.0-77.0); PLATELET COUNT 274 10^3/UL (140-415); RED BLOOD COUNT 3.57 10^6/ul (4.20-5.40); WHITE BLOOD COUNT 7.4 10^3/ul (4.8-10.8)
[2017-01-11 07:05] LABS: CALCIUM 8.9 mg/dl (8.4-10.2); CREATININE 0.53 mg/dl (0.44-1.00); POTASSIUM 4.2 mmol/L (3.5-5.1)
[2017-01-11] MEDS: INSULIN ASPART [NOVOLOG] 3 ML PEN SC SCH ×4 (07:54→21:00)
[2017-01-11 08:08] VITALS: BP 141/77; RESP 18
[2017-01-11] MEDS: GABAPENTIN 100 MG CAP PO SCH ×3 (09:06→20:17)
[2017-01-11] MEDS: TACROLIMUS 1 MG CAP PO SCH ×2 (09:06→20:17)
[2017-01-11] MEDS: CHOLECALCIFEROL 1,000 UNIT TAB PO SCH (09:06)
[2017-01-11] MEDS: ASPIRIN (EC) 81 MG TAB PO SCH (09:06)
[2017-01-11] MEDS: CLOPIDOGREL 75 MG TAB PO SCH (09:06)
[2017-01-11] MEDS: FOLIC ACID 1 MG TAB PO SCH (09:06)
[2017-01-11] MEDS: MYCOPHENOLATE 250 MG CAP PO SCH ×2 (09:06→20:19)
[2017-01-11] MEDS: BENAZEPRIL 10 MG TAB PO SCH (09:07)
[2017-01-11] MEDS: DILTIAZEM (CD) 180 MG CAP PO SCH (09:07)
[2017-01-11] MEDS: METOPROLOL 25 MG TAB PO SCH ×2 (09:09→20:18)
--- NOTE | 2017-01-11 12:13 | PN ---
Date/Time of Note Date/Time of Note DATE: 01/11/17 TIME: 12:09 Assessment/Plan VTE Prophylaxis VTE Prophylaxis Intervention: other Lines/Catheters [facility] Peripheral IV Urinary Cath still in place: No Assessment/Plan Assessment/Plan - Acute encephalopathy, CT brain is negative for any acute pathology, Dr. Bob, neurology is following. 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 Plan for left AKA patient condition improves by Dr. Valencia. Continue antibiotics per ID. - Diabetes mellitus type II. Continue Lantus and NovoLog. - History of kidney transplant in 2009, on immunosuppressive therapy. - Hypertension. 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 - Anemia of chronic kidney disease. Further recommendations based on clinical course. Plan of care discussed with Dr. Cohen Subjective 24 Hr Interval Summary Free Text/Dictation mor alert. oriented x 2, afebrile, per staff patient is more confused after getting Morphine for pain- will adjust ,dw staff Respiratory: no complaints Cardiovascular: no complaints Gastrointestinal: no complaints Genitourinary: no complaints Musculoskeletal: other (BLE pain ) Exam/Review of Systems Vital Signs Vitals Vital Signs Date Time Temp Pulse Resp B/P Pulse Ox O2 Delivery O2 Flow Rate FiO2 01/11/17 08:08 97.8 70 18 141/77 100 01/10/17 02:00 Room Air Intake and Output 01/10/17 01/10/17 01/11/17 15:00 23:00 07:00 Intake Total 100 ml 1260 ml 1650 ml Balance 100 ml 1260 ml 1650 ml Exam Constitutional: alert, oriented Respiratory: clear to auscultation, normal air movement Cardiovascular: nl pulses, regular rate and rhythm Gastrointestinal: non-tender, soft Musculoskeletal: other Extremities: other Neurological: nl speech Results Result Diagram: 01/11/17 0537 01/11/17 0537 Results 24 hrs Laboratory Tests Test 01/10/17 17:27 01/10/17 20:56 01/11/17 05:37 01/11/17 07:51 Bedside Glucose 117 126 82 White Blood Count 7.4 Red Blood Count 3.57 L Hemoglobin 10.1 L Hematocrit 30.7 L Mean Corpuscular Volume 86.0 Mean Corpuscular Hemoglobin 28.3 L Mean Corpuscular Hemoglobin Concent 32.9 Red Cell Distribution Width 14.0 Platelet Count 274 Mean Platelet Volume 11.0 H Neutrophils % 75.6 Lymphocytes % 11.4 L Monocytes % 11.4 H Eosinophils % 1.1 Basophils % 0.1 Nucleated Red Blood Cells % 0.0 Neutrophils # 5.6 Lymphocytes # 0.8 Monocytes # 0.8 Eosinophils # 0.1 Basophils # 0.0 Nucleated Red Blood Cells # 0.0 Sodium Level 136 Potassium Level 4.2 Chloride Level 107 Carbon Dioxide Level 21 Anion Gap 12 Blood Urea Nitrogen 7 Creatinine 0.53 Glucose Level 68 #L Calcium Level 8.9 Test 01/11/17 11:48 Bedside Glucose 99 Medications Medications Current Medications Aspirin (Halfprin) 81 mg DAILY PO Last administered on 01/11/17 09:06; Admin Dose 81 MG; Start 12/27/16 at 09:00 Benazepril HCl (Lotensin) 10 mg DAILY PO Last administered on 01/11/17 09:07; Admin Dose 10 MG; Start 12/27/16 at 09:00 Clopidogrel Bisulfate (plaVIX) 75 mg DAILY PO Last administered on 01/11/17 09 :06; Admin Dose 75 MG; Start 12/27/16 at 09:00 Diltiazem HCl (Cardizem Cd) 180 mg DAILY PO Last administered on 01/11/17 09: 07; Admin Dose 180 MG; Start 12/26/16 at 14:00 Famotidine (Pepcid) 40 mg HS PO Last administered on 01/10/17 20:59; Admin Dose 40 MG; Start 12/26/16 at 21:00 Folic Acid (Folic Acid) 1 mg DAILY PO Last administered on 01/11/17 09:06; Admin Dose 1 MG; Start 12/27/16 at 09:00 Gabapentin (Neurontin) 100 mg TID PO Last administered on 01/11/17 09:06; Admin Dose 100 MG; Start 12/26/16 at 21:00 Metoprolol Tartrate (Lopressor) 75 mg BID PO Last administered on 01/11/17 09: 09; Admin Dose 75 MG; Start 12/26/16 at 21:00 Mycophenolate Mofetil (Cellcept) 1,000 mg BID PO Last administered on 09:06; Admin Dose 1,000 MG; Start 12/26/16 at 21:00 Tacrolimus (Prograf) 2 mg Q12 PO Last administered on 01/11/17 09:06; Admin Dose 2 MG; Start 12/26/16 at 21:00 Pantoprazole (Protonix Tab) 40 mg DAILY@06 PO Last administered on 01/11/17 05 :49; Admin Dose 40 MG; Start 12/27/16 at 06:00 Morphine Sulfate (morphine) 2 mg Q4H PRN IV PAIN LEVEL 6-10 Last administered on 01/07/17 02:42; Admin Dose 2 MG; Start 12/26/16 at 14:30 Diagnostic Test (Pha) (Accu-Chek) 1 ea 02 XX ; Start 12/27/16 at 02:00 Miscellaneous Information 1 ea NOTE XX ; Start 12/26/16 at 14:30 Glucose (Glutose) 15 gm Q15M PRN PO DECREASED GLUCOSE; Start 12/26/16 at 14:30 Glucose (Glutose) 22.5 gm Q15M PRN PO DECREASED GLUCOSE; Start 12/26/16 at 14:30 Dextrose (D50w Syringe) 25 ml Q15M PRN IV DECREASED GLUCOSE; Start 12/26/16 at 14:30 Dextrose (D50w Syringe) 50 ml Q15M PRN IV DECREASED GLUCOSE; Start 12/26/16 at 14:30 Glucagon (Glucagen) 1 mg Q15M PRN IM DECREASED GLUCOSE; Start 12/26/16 at 14:30 Glucose (Glutose) 15 gm Q15M PRN BUCCAL DECREASED GLUCOSE; Start 12/26/16 at 14: 30 Acetaminophen/ Hydrocodone Bitart ([place] (5/325)) 1 tab Q8 PO Last administered on 01/11/17 05:49; Admin Dose 1 TAB; Start 12/26/16 at 22:00 Cholecalciferol (Vitamin D) 1,000 unit DAILY PO Last administered on 01/11/17 09:06; Admin Dose 1,000 UNIT; Start 12/28/16 at 09:00 Insulin Glargine (Lantus) 7 unit DAILY@20 SC Last administered on 01/10/17 21: 04; Admin Dose 7 UNIT; Start 12/29/16 at 20:00 Ondansetron HCl 4 mg 4 mg Q6H PRN IV NAUSEA AND/OR VOMITING Last administered on 01/01/17 10:00; Admin Dose 4 MG; Start 01/01/17 at 10:00 Ertapenem 1 gm/ Sodium Chloride 100 ml @ 200 mls/hr Q24H IVPB Last administered on 01/10/17 14:01; Admin Dose 200 MLS/HR; Start 01/06/17 at 14:30 Sodium Chloride (NS) 1,000 ml @ 75 mls/hr [id number] IV Last administered on 01/10 23:38; Admin Dose 75 MLS/HR; Start 01/06/17 at 18:00 Haloperidol (Haldol) 2 mg Q4H PRN IM AGITATION/ANXIETY Last administered on 22:46; Admin Dose 2 MG; Start 01/08/17 at 01:30 Acetaminophen (Tylenol Tab) 650 mg Q6H PRN PO PAIN AND OR ELEVATED TEMP Last administered on 01/10/17 10:48; Admin Dose 650 MG; Start 01/08/17 at 22:30 Quetiapine Fumarate (Seroquel) 25 mg QHS PRN PO agitation/hallucinations Last administered on 01/09/17 22:15; Admin Dose 25 MG; Start 01/09/17 at 21:00 TIM BENNETT Jan 11, 2017 12:13
--- NOTE | 2017-01-11 13:24 | CONS ---
Date/Time of Note Date/Time of Note DATE: 01/11/17 TIME: 13:23 Assessment/Plan Assessment/Plan Chief Complaint/Hosp Course SUBJECTIVE DATA:Patient is awake looks the same no fevers WBC 7.4 H&H 10.1 and 30.7 platelets 274 BUN 7 creatinine 0.53 MICROBIOLOGY: Right foot culture grew E. coli ESBL. ANTIMICROBIALS: Patient is on Invanz. PHYSICAL EXAMINATION: This is a wasted fragile elderly woman who is awake in no distress. HEENT: Head atraumatic, normocephalic. Sclerae anicteric. NECK: Supple. CHEST: Rise symmetrical. Breath sounds clear. HEART: S1, S2. ABDOMEN: Soft, bowel sounds present. ASSESSMENT: 1. S/p leukocytosis with worsening mental status, so far no evidence of acute infection except in her feet 2. 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 2. Severe peripheral arterial disease. 3. History of kidney transplant, remains on immunosuppressive therapy. 4. Diabetes and hypertension. 5. Cachexia PLAN: Clinically stable, blood cultures and chest x-ray negative, continue antibiotics, follow vascular and neuro recommendations, pending above-knee amputation Problems: Consultation Date/Type/Reason Admit Date/Time Dec 26, 2016 at 13:22 Initial Consult Date 12/27/16 Type of Consultation: ID Referring Provider: LES GILLILAND Exam/Review of Systems Vital Signs Vitals Vital Signs Date Time Temp Pulse Resp B/P Pulse Ox O2 Delivery O2 Flow Rate FiO2 01/11/17 08:08 97.8 70 18 141/77 100 01/10/17 02:00 Room Air Intake and Output 01/10/17 01/10/17 01/11/17 14:59 22:59 06:59 Intake Total 100 ml 1260 ml 1650 ml Balance 100 ml 1260 ml 1650 ml Results Result Diagram: 01/11/17 0537 01/11/17 0537 Results 24 hrs Laboratory Tests Test 01/10/17 17:27 01/10/17 20:56 01/11/17 05:37 01/11/17 07:51 Bedside Glucose 117 126 82 White Blood Count 7.4 Red Blood Count 3.57 L Hemoglobin 10.1 L Hematocrit 30.7 L Mean Corpuscular Volume 86.0 Mean Corpuscular Hemoglobin 28.3 L Mean Corpuscular Hemoglobin Concent 32.9 Red Cell Distribution Width 14.0 Platelet Count 274 Mean Platelet Volume 11.0 H Neutrophils % 75.6 Lymphocytes % 11.4 L Monocytes % 11.4 H Eosinophils % 1.1 Basophils % 0.1 Nucleated Red Blood Cells % 0.0 Neutrophils # 5.6 Lymphocytes # 0.8 Monocytes # 0.8 Eosinophils # 0.1 Basophils # 0.0 Nucleated Red Blood Cells # 0.0 Sodium Level 136 Potassium Level 4.2 Chloride Level 107 Carbon Dioxide Level 21 Anion Gap 12 Blood Urea Nitrogen 7 Creatinine 0.53 Glucose Level 68 #L Calcium Level 8.9 Test 01/11/17 11:48 Bedside Glucose 99 Medications Medications Current Medications Aspirin (Halfprin) 81 mg DAILY PO Last administered on 01/11/17 09:06; Admin Dose 81 MG; Start 12/27/16 at 09:00 Benazepril HCl (Lotensin) 10 mg DAILY PO Last administered on 01/11/17 09:07; Admin Dose 10 MG; Start 12/27/16 at 09:00 Clopidogrel Bisulfate (plaVIX) 75 mg DAILY PO Last administered on 01/11/17 09 :06; Admin Dose 75 MG; Start 12/27/16 at 09:00 Diltiazem HCl (Cardizem Cd) 180 mg DAILY PO Last administered on 01/11/17 09: 07; Admin Dose 180 MG; Start 12/26/16 at 14:00 Famotidine (Pepcid) 40 mg HS PO Last administered on 01/10/17 20:59; Admin Dose 40 MG; Start 12/26/16 at 21:00 Folic Acid (Folic Acid) 1 mg DAILY PO Last administered on 01/11/17 09:06; Admin Dose 1 MG; Start 12/27/16 at 09:00 Gabapentin (Neurontin) 100 mg TID PO Last administered on 01/11/17 09:06; Admin Dose 100 MG; Start 12/26/16 at 21:00 Metoprolol Tartrate (Lopressor) 75 mg BID PO Last administered on 01/11/17 09: 09; Admin Dose 75 MG; Start 12/26/16 at 21:00 Mycophenolate Mofetil (Cellcept) 1,000 mg BID PO Last administered on 09:06; Admin Dose 1,000 MG; Start 12/26/16 at 21:00 Tacrolimus (Prograf) 2 mg Q12 PO Last administered on 01/11/17 09:06; Admin Dose 2 MG; Start 12/26/16 at 21:00 Pantoprazole (Protonix Tab) 40 mg DAILY@06 PO Last administered on 01/11/17 05 :49; Admin Dose 40 MG; Start 12/27/16 at 06:00 Diagnostic Test (Pha) (Accu-Chek) 1 ea 02 XX ; Start 12/27/16 at 02:00 Miscellaneous Information 1 ea NOTE XX ; Start 12/26/16 at 14:30 Glucose (Glutose) 15 gm Q15M PRN PO DECREASED GLUCOSE; Start 12/26/16 at 14:30 Glucose (Glutose) 22.5 gm Q15M PRN PO DECREASED GLUCOSE; Start 12/26/16 at 14:30 Dextrose (D50w Syringe) 25 ml Q15M PRN IV DECREASED GLUCOSE; Start 12/26/16 at 14:30 Dextrose (D50w Syringe) 50 ml Q15M PRN IV DECREASED GLUCOSE; Start 12/26/16 at 14:30 Glucagon (Glucagen) 1 mg Q15M PRN IM DECREASED GLUCOSE; Start 12/26/16 at 14:30 Glucose (Glutose) 15 gm Q15M PRN BUCCAL DECREASED GLUCOSE; Start 12/26/16 at 14: 30 Acetaminophen/ Hydrocodone Bitart ([place] (5/325)) 1 tab Q8 PO Last administered on 01/11/17 05:49; Admin Dose 1 TAB; Start 12/26/16 at 22:00 Cholecalciferol (Vitamin D) 1,000 unit DAILY PO Last administered on 01/11/17 09:06; Admin Dose 1,000 UNIT; Start 12/28/16 at 09:00 Insulin Glargine (Lantus) 7 unit DAILY@20 SC Last administered on 01/10/17 21: 04; Admin Dose 7 UNIT; Start 12/29/16 at 20:00 Ondansetron HCl 4 mg 4 mg Q6H PRN IV NAUSEA AND/OR VOMITING Last administered on 01/01/17 10:00; Admin Dose 4 MG; Start 01/01/17 at 10:00 Ertapenem 1 gm/ Sodium Chloride 100 ml @ 200 mls/hr Q24H IVPB Last administered on 01/10/17 14:01; Admin Dose 200 MLS/HR; Start 01/06/17 at 14:30 Sodium Chloride (NS) 1,000 ml @ 75 mls/hr [id number] IV Last administered on 01/10 23:38; Admin Dose 75 MLS/HR; Start 01/06/17 at 18:00 Haloperidol (Haldol) 2 mg Q4H PRN IM AGITATION/ANXIETY Last administered on 22:46; Admin Dose 2 MG; Start 01/08/17 at 01:30 Acetaminophen (Tylenol Tab) 650 mg Q6H PRN PO PAIN AND OR ELEVATED TEMP Last administered on 01/10/17 10:48; Admin Dose 650 MG; Start 01/08/17 at 22:30 Quetiapine Fumarate (Seroquel) 25 mg QHS PRN PO agitation/hallucinations Last administered on 01/09/17 22:15; Admin Dose 25 MG; Start 01/09/17 at 21:00 Morphine Sulfate (morphine) 2 mg Q8H PRN IV PAIN LEVEL 6-10; Start 01/11/17 at 14:00 JACQUES HUERTA NP Jan 11, 2017 13:24
[2017-01-11 14:00] VITALS: BP 130/68; RESP 18
[2017-01-11] MEDS: SOD CHLORIDE 0.9% 1,000 ML IV SCH (14:46)
[2017-01-11] MEDS: ERTAPENEM SODIUM 1 GM in SOD CHLORIDE 0.9% 100 ML IVPB SCH (14:47)
--- NOTE | 2017-01-11 15:31 | CONS ---
Date/Time of Note Date/Time of Note DATE: 01/11/17 TIME: 15:29 Assessment/Plan Assessment/Plan Chief Complaint/Hosp Course Altered mental status and gangrene at the left foot Problems: Additional Assessment/Plan 61 yo female with history of advanced peripheral arterial disease, bilateral feet gangrene with e.coli ESBL, history of kidney transplant remains on immunosuppressive therapy, DM, HTN admitted for AKA with hallucinations, delirium. MRI of the brain showed marked bifrontal cerebral volume loss, minimal dural enhancement which is nonspecific. She is being planned to have left below-knee amputation. Recommendations: -avoid overly sedating medications --trial of low dose seroquel 25 mg qhs prn for agitation/delirium over night -continue infectious work up -will continue to follow Consultation Date/Type/Reason Admit Date/Time Dec 26, 2016 at 13:22 Initial Consult Date 01/09/17 Type of Consultation: ID Referring Provider: LES GILLILAND 24 HR Interval Summary Free Text/Dictation She is still mildly confused. Did not sign her consent for surgery. Constitutional: no complaints Exam/Review of Systems Vital Signs Vitals Vital Signs Date Time Temp Pulse Resp B/P Pulse Ox O2 Delivery O2 Flow Rate FiO2 01/11/17 14:00 98.6 79 18 130/68 98 01/10/17 02:00 Room Air Intake and Output 01/10/17 01/10/17 01/11/17 15:00 23:00 07:00 Intake Total 100 ml 1260 ml 1650 ml Balance 100 ml 1260 ml 1650 ml Exam Constitutional: alert, oriented, well developed Psych: nl mood/affect, no complaints Head: atraumatic, normocephalic Eyes: EOMI, nl conjunctiva ENMT: nl external ears & nose, nl lips & teeth, nl nasal mucosa & septum Neck: non-tender, supple Respiratory: clear to auscultation, normal air movement Cardiovascular: nl pulses, regular rate and rhythm Gastrointestinal: nl liver, spleen, non-tender, soft Musculoskeletal: other (Gangrene in the left toe) Neurological: CHAIN CARRIER II-XII intact, nl mental status, nl speech Results Result Diagram: 01/11/17 0537 01/11/17 0537 Results 24 hrs Laboratory Tests Test 01/10/17 17:27 01/10/17 20:56 01/11/17 05:37 01/11/17 07:51 Bedside Glucose 117 126 82 White Blood Count 7.4 Red Blood Count 3.57 L Hemoglobin 10.1 L Hematocrit 30.7 L Mean Corpuscular Volume 86.0 Mean Corpuscular Hemoglobin 28.3 L Mean Corpuscular Hemoglobin Concent 32.9 Red Cell Distribution Width 14.0 Platelet Count 274 Mean Platelet Volume 11.0 H Neutrophils % 75.6 Lymphocytes % 11.4 L Monocytes % 11.4 H Eosinophils % 1.1 Basophils % 0.1 Nucleated Red Blood Cells % 0.0 Neutrophils # 5.6 Lymphocytes # 0.8 Monocytes # 0.8 Eosinophils # 0.1 Basophils # 0.0 Nucleated Red Blood Cells # 0.0 Sodium Level 136 Potassium Level 4.2 Chloride Level 107 Carbon Dioxide Level 21 Anion Gap 12 Blood Urea Nitrogen 7 Creatinine 0.53 Glucose Level 68 #L Calcium Level 8.9 Test 01/11/17 11:48 Bedside Glucose 99 Medications Medications Current Medications Aspirin (Halfprin) 81 mg DAILY PO Last administered on 01/11/17 09:06; Admin Dose 81 MG; Start 12/27/16 at 09:00 Benazepril HCl (Lotensin) 10 mg DAILY PO Last administered on 01/11/17 09:07; Admin Dose 10 MG; Start 12/27/16 at 09:00 Clopidogrel Bisulfate (plaVIX) 75 mg DAILY PO Last administered on 01/11/17 09 :06; Admin Dose 75 MG; Start 12/27/16 at 09:00 Diltiazem HCl (Cardizem Cd) 180 mg DAILY PO Last administered on 01/11/17 09: 07; Admin Dose 180 MG; Start 12/26/16 at 14:00 Famotidine (Pepcid) 40 mg HS PO Last administered on 01/10/17 20:59; Admin Dose 40 MG; Start 12/26/16 at 21:00 Folic Acid (Folic Acid) 1 mg DAILY PO Last administered on 01/11/17 09:06; Admin Dose 1 MG; Start 12/27/16 at 09:00 Gabapentin (Neurontin) 100 mg TID PO Last administered on 01/11/17 13:27; Admin Dose 100 MG; Start 12/26/16 at 21:00 Metoprolol Tartrate (Lopressor) 75 mg BID PO Last administered on 01/11/17 09: 09; Admin Dose 75 MG; Start 12/26/16 at 21:00 Mycophenolate Mofetil (Cellcept) 1,000 mg BID PO Last administered on 09:06; Admin Dose 1,000 MG; Start 12/26/16 at 21:00 Tacrolimus (Prograf) 2 mg Q12 PO Last administered on 01/11/17 09:06; Admin Dose 2 MG; Start 12/26/16 at 21:00 Pantoprazole (Protonix Tab) 40 mg DAILY@06 PO Last administered on 01/11/17 05 :49; Admin Dose 40 MG; Start 12/27/16 at 06:00 Diagnostic Test (Pha) (Accu-Chek) 1 ea 02 XX ; Start 12/27/16 at 02:00 Miscellaneous Information 1 ea NOTE XX ; Start 12/26/16 at 14:30 Glucose (Glutose) 15 gm Q15M PRN PO DECREASED GLUCOSE; Start 12/26/16 at 14:30 Glucose (Glutose) 22.5 gm Q15M PRN PO DECREASED GLUCOSE; Start 12/26/16 at 14:30 Dextrose (D50w Syringe) 25 ml Q15M PRN IV DECREASED GLUCOSE; Start 12/26/16 at 14:30 Dextrose (D50w Syringe) 50 ml Q15M PRN IV DECREASED GLUCOSE; Start 12/26/16 at 14:30 Glucagon (Glucagen) 1 mg Q15M PRN IM DECREASED GLUCOSE; Start 12/26/16 at 14:30 Glucose (Glutose) 15 gm Q15M PRN BUCCAL DECREASED GLUCOSE; Start 12/26/16 at 14: 30 Acetaminophen/ Hydrocodone Bitart ([place] (5/325)) 1 tab Q8 PO Last administered on 01/11/17 05:49; Admin Dose 1 TAB; Start 12/26/16 at 22:00 Cholecalciferol (Vitamin D) 1,000 unit DAILY PO Last administered on 01/11/17 09:06; Admin Dose 1,000 UNIT; Start 12/28/16 at 09:00 Insulin Glargine (Lantus) 7 unit DAILY@20 SC Last administered on 01/10/17 21: 04; Admin Dose 7 UNIT; Start 12/29/16 at 20:00 Ondansetron HCl 4 mg 4 mg Q6H PRN IV NAUSEA AND/OR VOMITING Last administered on 01/01/17 10:00; Admin Dose 4 MG; Start 01/01/17 at 10:00 Ertapenem 1 gm/ Sodium Chloride 100 ml @ 200 mls/hr Q24H IVPB Last administered on 01/11/17 14:47; Admin Dose 200 MLS/HR; Start 01/06/17 at 14:30 Sodium Chloride (NS) 1,000 ml @ 75 mls/hr [id number] IV Last administered on 01/11 14:46; Admin Dose 75 MLS/HR; Start 01/06/17 at 18:00 Haloperidol (Haldol) 2 mg Q4H PRN IM AGITATION/ANXIETY Last administered on 22:46; Admin Dose 2 MG; Start 01/08/17 at 01:30 Acetaminophen (Tylenol Tab) 650 mg Q6H PRN PO PAIN AND OR ELEVATED TEMP Last administered on 01/10/17 10:48; Admin Dose 650 MG; Start 01/08/17 at 22:30 Quetiapine Fumarate (Seroquel) 25 mg QHS PRN PO agitation/hallucinations Last administered on 01/09/17 22:15; Admin Dose 25 MG; Start 01/09/17 at 21:00 Morphine Sulfate (morphine) 2 mg Q8H PRN IV PAIN LEVEL 6-10; Start 01/11/17 at 14:00 JOVANNA LAL MD Jan 11, 2017 15:31
--- NOTE | 2017-01-11 19:42 | CONS ---
Date/Time of Note Date/Time of Note DATE: 01/11/17 TIME: 19:42 Assessment/Plan Assessment/Plan Additional Assessment/Plan 1. 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 2. h/o donor kidney transplant in 2009 at [facility], currently on immunosuppression with Prograf, CellCept 4. 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 History of hypertension. 6. History of diabetes mellitus. 7. History of previous left upper extremity arteriovenous fistula. 8. Hyponatremia due to hypovolemic hyponatremia Plan: continue Current immunosuppression Prograf and cellcept, Cr normal, plan for left AKA as per when pt is more stable -CT chest+ abd+pelvis with and without contrast negative for mass/LAD/Malignancy IV abx as per ID ID, vascular surgery and Primary care following on paient. Consultation Date/Type/Reason Admit Date/Time Dec 26, 2016 at 13:22 Initial Consult Date 12/27/16 Type of Consultation: NEPHROLOGY Referring Provider: LES GILLILAND 24 HR Interval Summary Free Text/Dictation Neurologh consulted on case Exam/Review of Systems Vital Signs Vitals Vital Signs Date Time Temp Pulse Resp B/P Pulse Ox O2 Delivery O2 Flow Rate FiO2 01/11/17 14:00 98.6 79 18 130/68 98 01/10/17 02:00 Room Air Intake and Output 01/10/17 01/10/17 01/11/17 15:00 23:00 07:00 Intake Total 100 ml 1260 ml 1650 ml Balance 100 ml 1260 ml 1650 ml Results Result Diagram: 01/11/17 0537 01/11/17 0537 Results 24 hrs Laboratory Tests Test 01/10/17 20:56 01/11/17 05:37 01/11/17 07:51 01/11/17 11:48 Bedside Glucose 126 82 99 White Blood Count 7.4 Red Blood Count 3.57 L Hemoglobin 10.1 L Hematocrit 30.7 L Mean Corpuscular Volume 86.0 Mean Corpuscular Hemoglobin 28.3 L Mean Corpuscular Hemoglobin Concent 32.9 Red Cell Distribution Width 14.0 Platelet Count 274 Mean Platelet Volume 11.0 H Neutrophils % 75.6 Lymphocytes % 11.4 L Monocytes % 11.4 H Eosinophils % 1.1 Basophils % 0.1 Nucleated Red Blood Cells % 0.0 Neutrophils # 5.6 Lymphocytes # 0.8 Monocytes # 0.8 Eosinophils # 0.1 Basophils # 0.0 Nucleated Red Blood Cells # 0.0 Sodium Level 136 Potassium Level 4.2 Chloride Level 107 Carbon Dioxide Level 21 Anion Gap 12 Blood Urea Nitrogen 7 Creatinine 0.53 Glucose Level 68 #L Calcium Level 8.9 Test 01/11/17 17:22 Bedside Glucose 112 Medications Medications Current Medications Aspirin (Halfprin) 81 mg DAILY PO Last administered on 01/11/17 09:06; Admin Dose 81 MG; Start 12/27/16 at 09:00 Benazepril HCl (Lotensin) 10 mg DAILY PO Last administered on 01/11/17 09:07; Admin Dose 10 MG; Start 12/27/16 at 09:00 Clopidogrel Bisulfate (plaVIX) 75 mg DAILY PO Last administered on 01/11/17 09 :06; Admin Dose 75 MG; Start 12/27/16 at 09:00 Diltiazem HCl (Cardizem Cd) 180 mg DAILY PO Last administered on 01/11/17 09: 07; Admin Dose 180 MG; Start 12/26/16 at 14:00 Famotidine (Pepcid) 40 mg HS PO Last administered on 01/10/17 20:59; Admin Dose 40 MG; Start 12/26/16 at 21:00 Folic Acid (Folic Acid) 1 mg DAILY PO Last administered on 01/11/17 09:06; Admin Dose 1 MG; Start 12/27/16 at 09:00 Gabapentin (Neurontin) 100 mg TID PO Last administered on 01/11/17 13:27; Admin Dose 100 MG; Start 12/26/16 at 21:00 Metoprolol Tartrate (Lopressor) 75 mg BID PO Last administered on 01/11/17 09: 09; Admin Dose 75 MG; Start 12/26/16 at 21:00 Mycophenolate Mofetil (Cellcept) 1,000 mg BID PO Last administered on 09:06; Admin Dose 1,000 MG; Start 12/26/16 at 21:00 Tacrolimus (Prograf) 2 mg Q12 PO Last administered on 01/11/17 09:06; Admin Dose 2 MG; Start 12/26/16 at 21:00 Pantoprazole (Protonix Tab) 40 mg DAILY@06 PO Last administered on 01/11/17 05 :49; Admin Dose 40 MG; Start 12/27/16 at 06:00 Diagnostic Test (Pha) (Accu-Chek) 1 ea 02 XX ; Start 12/27/16 at 02:00 Miscellaneous Information 1 ea NOTE XX ; Start 12/26/16 at 14:30 Glucose (Glutose) 15 gm Q15M PRN PO DECREASED GLUCOSE; Start 12/26/16 at 14:30 Glucose (Glutose) 22.5 gm Q15M PRN PO DECREASED GLUCOSE; Start 12/26/16 at 14:30 Dextrose (D50w Syringe) 25 ml Q15M PRN IV DECREASED GLUCOSE; Start 12/26/16 at 14:30 Dextrose (D50w Syringe) 50 ml Q15M PRN IV DECREASED GLUCOSE; Start 12/26/16 at 14:30 Glucagon (Glucagen) 1 mg Q15M PRN IM DECREASED GLUCOSE; Start 12/26/16 at 14:30 Glucose (Glutose) 15 gm Q15M PRN BUCCAL DECREASED GLUCOSE; Start 12/26/16 at 14: 30 Acetaminophen/ Hydrocodone Bitart ([place] (5/325)) 1 tab Q8 PO Last administered on 01/11/17 05:49; Admin Dose 1 TAB; Start 12/26/16 at 22:00 Cholecalciferol (Vitamin D) 1,000 unit DAILY PO Last administered on 01/11/17 09:06; Admin Dose 1,000 UNIT; Start 12/28/16 at 09:00 Insulin Glargine (Lantus) 7 unit DAILY@20 SC Last administered on 01/10/17 21: 04; Admin Dose 7 UNIT; Start 12/29/16 at 20:00 Ondansetron HCl 4 mg 4 mg Q6H PRN IV NAUSEA AND/OR VOMITING Last administered on 01/01/17 10:00; Admin Dose 4 MG; Start 01/01/17 at 10:00 Ertapenem 1 gm/ Sodium Chloride 100 ml @ 200 mls/hr Q24H IVPB Last administered on 01/11/17 14:47; Admin Dose 200 MLS/HR; Start 9/18/17 at 14:30 Sodium Chloride (NS) 1,000 ml @ 75 mls/hr [id number] IV Last administered on 01/11 14:46; Admin Dose 75 MLS/HR; Start 01/06/17 at 18:00 Haloperidol (Haldol) 2 mg Q4H PRN IM AGITATION/ANXIETY Last administered on 22:46; Admin Dose 2 MG; Start 01/08/17 at 01:30 Acetaminophen (Tylenol Tab) 650 mg Q6H PRN PO PAIN AND OR ELEVATED TEMP Last administered on 01/10/17 10:48; Admin Dose 650 MG; Start 01/08/17 at 22:30 Quetiapine Fumarate (Seroquel) 25 mg QHS PRN PO agitation/hallucinations Last administered on 01/09/17 22:15; Admin Dose 25 MG; Start 01/09/17 at 21:00 Morphine Sulfate (morphine) 2 mg Q8H PRN IV PAIN LEVEL 6-10; Start 01/11/17 at 14:00 RAMON KEMP MD Jan 11, 2017 19:42
[2017-01-11] MEDS: FAMOTIDINE 20 MG TAB PO SCH (20:17)
[2017-01-11] MEDS: INSULIN GLARGINE [LANtus] 3 ML PEN SC SCH (20:21)
[2017-01-11 20:44] VITALS: BP 129/80; RESP 18
[2017-01-11] MEDS: TACROLIMUS 0.5 MG CAP PO SCH (22:05)
--- NOTE | 2017-01-12 00:11 | PN ---
Date/Time of Note Date/Time of Note DATE: 01/12/17 TIME: 00:02 Assessment/Plan VTE Prophylaxis VTE Prophylaxis Intervention: other Lines/Catheters IV Catheter Type (from Nrs): Peripheral IV Urinary Cath still in place: No Subjective 24 Hr Interval Summary Free Text/Dictation Date/Time of Note Date/Time of Note DATE: 01/11/17 TIME: 23:40 Assessment/Plan Assessment/Plan Chief Complaint/Hosp Course IMP: 1. Esh-to-dimzub test 10/2016 with no ischemia/only scar/NL EF. Negative trop x 3. Patient is ok to proceed to OR at moderate risk without further noninvasive evaluation on current medications 2. HTN-labile but reasonable control 3. PAD with bilateral gangrene 4. DM 5. Anemia 6. Encephalopathy Recc: -Continuer asa/plavix -Cointinue benazepril/metoprolol -Local wound care -Continue abx's and f/u cx data -pending LE amputation when stable Initial consultation Date/Type/Reason Admit Date/Time Dec 26, 2016 at 13:22 Initial Consult Date 12/27/16 Reason for Consultation (cardiology) pre-op Referring Provider: LES GILLILAND Exam/Review of Systems Vital Signs Vitals Vital Signs Date Time Temp Pulse Resp B/P Pulse Ox O2 Delivery O2 Flow Rate FiO2 01/10/17 08:58 97.5 88 18 135/77 100 01/10/17 02:00 Room Air Intake and Output 01/09/17 01/09/17 01/10/17 15:00 23:00 07:00 Intake Total 900 ml 890 ml 1150 ml Balance 900 ml 890 ml 1150 ml Exam Review of Systems: CONSTITUTIONAL: No fevers, chills. PULMONARY: No sob CARDIOVASCULAR: No chest pain/palpitations GASTROINTESTINAL: No nausea/vomiting. GENITOURINARY: No hematuria/dysuria. MUSCULOSKELETAL: pain in foot PSYCHIATRIC: The patient denies depression. NEUROLOGIC: No weakness Constitutional: NOT alert, SOMNOLENT Psych: no complaints, CONFUSED ENMT: mucosa pink and moist (?) Neck: jvd (9), supple Respiratory: diminished breath sounds Cardiovascular: regular rate and rhythm Gastrointestinal: soft Musculoskeletal: muscle tone (normal) Extremities: edema (none) Neurological: other Results Result Diagram: 01/10/17 1108 01/10/17 1108 [Image 1] Results 24 hrs Laboratory Tests Test 01/09/17 17:07 01/09/17 20:42 01/10/17 08:01 01/10/17 11:08 Bedside Glucose 126 153 104 White Blood Count 8.3 Red Blood Count 3.74 L Hemoglobin 10.6 L Hematocrit 31.5 L Mean Corpuscular Volume 84.2 Mean Corpuscular Hemoglobin 28.3 L Mean Corpuscular Hemoglobin Concentration 33.7 Red Cell Distribution Width 13.6 Platelet Count 277 Mean Platelet Volume 10.7 H Neutrophils % 82.8 H Lymphocytes % 7.7 L Monocytes % 8.5 Eosinophils % 0.4 Basophils % 0.2 Nucleated Red Blood Cells % 0.0 Neutrophils # 6.9 Lymphocytes # 0.6 L Monocytes # 0.7 Eosinophils # 0.0 Basophils # 0.0 Nucleated Red Blood Cells # 0.0 Sodium Level 129 L Potassium Level 3.4 L Chloride Level 99 Carbon Dioxide Level 22 Anion Gap 11 Blood Urea Nitrogen 6 L Creatinine 0.51 Glucose Level 145 # Calcium Level 9.2 Bedside Glucose 200 Current Medications Aspirin (Halfprin) 81 mg DAILY PO Last administered on 01/10/17 08:56; Admin Dose 81 MG; Start 12/27/16 at 09:00 Benazepril HCl (Lotensin) 10 mg DAILY PO Last administered on 01/10/17 08:57; Admin Dose 10 MG; Start 12/27/16 at 09:00 Clopidogrel Bisulfate (plaVIX) 75 mg DAILY PO Last administered on 01/10/17 08 :56; Admin Dose 75 MG; Start 12/27/16 at 09:00 Diltiazem HCl (Cardizem Cd) 180 mg DAILY PO Last administered on 01/10/17 08: 55; Admin Dose 180 MG; Start 12/26/16 at 14:00 Famotidine (Pepcid) 40 mg HS PO Last administered on 01/09/17 21:11; Admin Dose 40 MG; Start 12/26/16 at 21:00 Folic Acid (Folic Acid) 1 mg DAILY PO Last administered on 01/10/17 08:56; Admin Dose 1 MG; Start 12/27/16 at 09:00 Gabapentin (Neurontin) 100 mg TID PO Last administered on 01/10/17 12:25; Admin Dose 100 MG; Start 12/26/16 at 21:00 Metoprolol Tartrate (Lopressor) 75 mg BID PO Last administered on 01/10/17 08: 56; Admin Dose 75 MG; Start 12/26/16 at 21:00 Mycophenolate Mofetil (Cellcept) 1,000 mg BID PO Last administered on 08:55; Admin Dose 1,000 MG; Start 12/26/16 at 21:00 Tacrolimus (Prograf) 2 mg Q12 PO Last administered on 01/10/17 08:55; Admin Dose 2 MG; Start 12/26/16 at 21:00 Pantoprazole (Protonix Tab) 40 mg DAILY@06 PO Last administered on 01/10/17 05 :24; Admin Dose 40 MG; Start 12/27/16 at 06:00 Morphine Sulfate (morphine) 2 mg Q4H PRN IV PAIN LEVEL 6-10 Last administered on 01/07/17 02:42; Admin Dose 2 MG; Start 12/26/16 at 14:30 Diagnostic Test (Pha) (Accu-Chek) 1 ea 02 XX ; Start 12/27/16 at 02:00 Miscellaneous Information 1 ea NOTE XX ; Start 12/26/16 at 14:30 Glucose (Glutose) 15 gm Q15M PRN PO DECREASED GLUCOSE; Start 12/26/16 at 14:30 Glucose (Glutose) 22.5 gm Q15M PRN PO DECREASED GLUCOSE; Start 12/26/16 at 14:30 Dextrose (D50w Syringe) 25 ml Q15M PRN IV DECREASED GLUCOSE; Start 12/26/16 at 14:30 Dextrose (D50w Syringe) 50 ml Q15M PRN IV DECREASED GLUCOSE; Start 12/26/16 at 14:30 Glucagon (Glucagen) 1 mg Q15M PRN IM DECREASED GLUCOSE; Start 12/26/16 at 14:30 Glucose (Glutose) 15 gm Q15M PRN BUCCAL DECREASED GLUCOSE; Start 12/26/16 at 14: 30 Acetaminophen/ Hydrocodone Bitart ([place] (5/325)) 1 tab Q8 PO Last administered on 01/10/17 14:00; Admin Dose 1 TAB; Start 12/26/16 at 22:00 Cholecalciferol (Vitamin D) 1,000 unit DAILY PO Last administered on 01/10/17 08:56; Admin Dose 1,000 UNIT; Start 12/28/16 at 09:00 Insulin Glargine (Lantus) 7 unit DAILY@20 SC Last administered on 01/09/17 20: 00; Admin Dose 7 UNIT; Start 12/29/16 at 20:00 Ondansetron HCl 4 mg 4 mg Q6H PRN IV NAUSEA AND/OR VOMITING Last administered on 01/01/17 10:00; Admin Dose 4 MG; Start 01/01/17 at 10:00 Ertapenem 1 gm/ Sodium Chloride 100 ml @ 200 mls/hr Q24H IVPB Last administered on 01/10/17 14:01; Admin Dose 200 MLS/HR; Start 01/06/17 at 14:30 Sodium Chloride (NS) 1,000 ml @ 75 mls/hr [id number] IV Last administered on 01/10 05:24; Admin Dose 75 MLS/HR; Start 01/06/17 at 18:00 Haloperidol (Haldol) 2 mg Q4H PRN IM AGITATION/ANXIETY Last administered on 22:46; Admin Dose 2 MG; Start 01/08/17 at 01:30 Acetaminophen (Tylenol Tab) 650 mg Q6H PRN PO PAIN AND OR ELEVATED TEMP Last administered on 01/10/17 10:48; Admin Dose 650 MG; Start 01/08/17 at 22:30 Quetiapine Fumarate 25 mg 25 mg QHS PRN PO agitation/hallucinations Last administered on 01/09/17 22:15; Admin Dose 25 MG; Start 01/09/17 at 21:00 Potassium Chloride/Sodium Chloride (KCl/NS) 110 ml @ 55 mls/hr ONCE ONCE IVPB ; Start 01/10/17 at 16:30; Stop 01/10/17 at 18:29 Darrian Villaseñor MD 01/10/17 1540 Exam/Review of Systems Vital Signs Vitals Vital Signs Date Time Temp Pulse Resp B/P Pulse Ox O2 Delivery O2 Flow Rate FiO2 01/11/17 20:44 98.4 57 18 129/80 98 01/10/17 02:00 Room Air Intake and Output 01/11/17 01/11/17 01/12/17 15:00 23:00 07:00 Intake Total 550 ml 825 ml Balance 550 ml 825 ml Results Result Diagram: 01/11/17 0537 01/11/17 0537 Results 24 hrs Laboratory Tests Test 01/11/17 05:37 01/11/17 07:51 01/11/17 11:48 01/11/17 17:22 White Blood Count 7.4 Red Blood Count 3.57 L Hemoglobin 10.1 L Hematocrit 30.7 L Mean Corpuscular Volume 86.0 Mean Corpuscular Hemoglobin 28.3 L Mean Corpuscular Hemoglobin Concent 32.9 Red Cell Distribution Width 14.0 Platelet Count 274 Mean Platelet Volume 11.0 H Neutrophils % 75.6 Lymphocytes % 11.4 L Monocytes % 11.4 H Eosinophils % 1.1 Basophils % 0.1 Nucleated Red Blood Cells % 0.0 Neutrophils # 5.6 Lymphocytes # 0.8 Monocytes # 0.8 Eosinophils # 0.1 Basophils # 0.0 Nucleated Red Blood Cells # 0.0 Sodium Level 136 Potassium Level 4.2 Chloride Level 107 Carbon Dioxide Level 21 Anion Gap 12 Blood Urea Nitrogen 7 Creatinine 0.53 Glucose Level 68 #L Calcium Level 8.9 Bedside Glucose 82 99 112 Test 01/11/17 20:15 Bedside Glucose 146 Medications Medications Current Medications Aspirin (Halfprin) 81 mg DAILY PO Last administered on 01/11/17 09:06; Admin Dose 81 MG; Start 12/27/16 at 09:00 Benazepril HCl (Lotensin) 10 mg DAILY PO Last administered on 01/11/17 09:07; Admin Dose 10 MG; Start 12/27/16 at 09:00 Clopidogrel Bisulfate (plaVIX) 75 mg DAILY PO Last administered on 01/11/17 09 :06; Admin Dose 75 MG; Start 12/27/16 at 09:00 Diltiazem HCl (Cardizem Cd) 180 mg DAILY PO Last administered on 01/11/17 09: 07; Admin Dose 180 MG; Start 12/26/16 at 14:00 Famotidine (Pepcid) 40 mg HS PO Last administered on 01/11/17 20:17; Admin Dose 40 MG; Start 12/26/16 at 21:00 Folic Acid (Folic Acid) 1 mg DAILY PO Last administered on 01/11/17 09:06; Admin Dose 1 MG; Start 12/27/16 at 09:00 Gabapentin (Neurontin) 100 mg TID PO Last administered on 01/11/17 20:17; Admin Dose 100 MG; Start 12/26/16 at 21:00 Metoprolol Tartrate (Lopressor) 75 mg BID PO Last administered on 01/11/17 20: 18; Admin Dose 75 MG; Start 12/26/16 at 21:00 Mycophenolate Mofetil (Cellcept) 1,000 mg BID PO Last administered on 20:19; Admin Dose 1,000 MG; Start 12/26/16 at 21:00 Pantoprazole (Protonix Tab) 40 mg DAILY@06 PO Last administered on 01/11/17 05 :49; Admin Dose 40 MG; Start 12/27/16 at 06:00 Diagnostic Test (Pha) (Accu-Chek) 1 ea 02 XX ; Start 12/27/16 at 02:00 Miscellaneous Information 1 ea NOTE XX ; Start 12/26/16 at 14:30 Glucose (Glutose) 15 gm Q15M PRN PO DECREASED GLUCOSE; Start 12/26/16 at 14:30 Glucose (Glutose) 22.5 gm Q15M PRN PO DECREASED GLUCOSE; Start 12/26/16 at 14:30 Dextrose (D50w Syringe) 25 ml Q15M PRN IV DECREASED GLUCOSE; Start 12/26/16 at 14:30 Dextrose (D50w Syringe) 50 ml Q15M PRN IV DECREASED GLUCOSE; Start 12/26/16 at 14:30 Glucagon (Glucagen) 1 mg Q15M PRN IM DECREASED GLUCOSE; Start 12/26/16 at 14:30 Glucose (Glutose) 15 gm Q15M PRN BUCCAL DECREASED GLUCOSE; Start 12/26/16 at 14: 30 Acetaminophen/ Hydrocodone Bitart ([place] (5/325)) 1 tab Q8 PO Last administered on 01/11/17 21:29; Admin Dose 1 TAB; Start 12/26/16 at 22:00 Cholecalciferol (Vitamin D) 1,000 unit DAILY PO Last administered on 01/11/17 09:06; Admin Dose 1,000 UNIT; Start 12/28/16 at 09:00 Insulin Glargine (Lantus) 7 unit DAILY@20 SC Last administered on 01/11/17 20: 21; Admin Dose 7 UNIT; Start 12/29/16 at 20:00 Ondansetron HCl 4 mg 4 mg Q6H PRN IV NAUSEA AND/OR VOMITING Last administered on 01/01/17 10:00; Admin Dose 4 MG; Start 01/01/17 at 10:00 Ertapenem 1 gm/ Sodium Chloride 100 ml @ 200 mls/hr Q24H IVPB Last administered on 01/11/17 14:47; Admin Dose 200 MLS/HR; Start 01/06/17 at 14:30 Sodium Chloride (NS) 1,000 ml @ 75 mls/hr [id number] IV Last administered on 01/11 14:46; Admin Dose 75 MLS/HR; Start 01/06/17 at 18:00 Haloperidol (Haldol) 2 mg Q4H PRN IM AGITATION/ANXIETY Last administered on 22:46; Admin Dose 2 MG; Start 01/08/17 at 01:30 Acetaminophen (Tylenol Tab) 650 mg Q6H PRN PO PAIN AND OR ELEVATED TEMP Last administered on 01/10/17 10:48; Admin Dose 650 MG; Start 01/08/17 at 22:30 Quetiapine Fumarate (Seroquel) 25 mg QHS PRN PO agitation/hallucinations Last administered on 01/09/17 22:15; Admin Dose 25 MG; Start 01/09/17 at 21:00 Morphine Sulfate (morphine) 2 mg Q8H PRN IV PAIN LEVEL 6-10; Start 01/11/17 at 14:00 Tacrolimus (Prograf) 2 mg Q12 PO Last administered on 01/11/17 22:05; Admin Dose 2 MG; Start 01/11/17 at 21:00 DARRIAN VILLASEÑOR MD Jan 12, 2017 00:11
[2017-01-12 02:00] VITALS: BP 109/58; RESP 18
[2017-01-12] MEDS: ACCU-CHEK XX SCH (02:00)
[2017-01-12] MEDS: HYDROCODONE/APAP (5/325) TAB PO SCH ×3 (06:00→22:04)
[2017-01-12 06:16] LABS: BASOPHILS % 0.1 % (0.0-2.0); EOSINOPHILS # 0.1 10^3/ul (0.0-0.5); HEMOGLOBIN 9.1 g/dl (12.0-16.0); LYMPHOCYTES # 1.1 10^3/ul (0.8-2.9); LYMPHOCYTES % 14.9 % (15.0-51.0); MEAN CORPUSCULAR HEMOGLOBIN 27.8 pg (29.0-33.0); MEAN CORPUSCULAR HGB CONC 32.5 g/dl (32.0-37.0); MEAN CORPUSCULAR VOLUME 85.6 fl (82.0-101.0); MEAN PLATELET VOLUME 11.2 fl (7.4-10.4); MONOCYTE # 1.1 10^3/ul (0.3-0.9); MONOCYTES % 15.3 % (0.0-11.0); NEUTROPHIL # 4.9 10^3/ul (1.6-7.5); NEUTROPHILS % 68.3 % (39.0-77.0); PLATELET COUNT 262 10^3/UL (140-415); RED BLOOD COUNT 3.27 10^6/ul (4.20-5.40); RED CELL DISTRIBUTION WIDTH 14.2 % (11.5-14.5); WHITE BLOOD COUNT 7.1 10^3/ul (4.8-10.8)
[2017-01-12] MEDS: SOD CHLORIDE 0.9% 1,000 ML IV SCH (06:18)
[2017-01-12] MEDS: PANTOPRAZOLE (EC) 40 MG TAB PO SCH (06:19)
[2017-01-12 06:32] LABS: CALCIUM 8.5 mg/dl (8.4-10.2); CREATININE 0.7 mg/dl (0.44-1.00); POTASSIUM 3.8 mmol/L (3.5-5.1)
[2017-01-12 07:55] VITALS: BP 149/79; RESP 16
[2017-01-12] MEDS: INSULIN ASPART [NOVOLOG] 3 ML PEN SC SCH ×4 (08:00→21:00)
[2017-01-12] MEDS: BENAZEPRIL 10 MG TAB PO SCH (09:07)
[2017-01-12] MEDS: TACROLIMUS 0.5 MG CAP PO SCH ×2 (09:07→20:51)
[2017-01-12] MEDS: MYCOPHENOLATE 250 MG CAP PO SCH ×2 (09:07→20:50)
[2017-01-12] MEDS: CLOPIDOGREL 75 MG TAB PO SCH (09:07)
[2017-01-12] MEDS: ASPIRIN (EC) 81 MG TAB PO SCH (09:07)
[2017-01-12] MEDS: GABAPENTIN 100 MG CAP PO SCH ×3 (09:07→20:51)
[2017-01-12] MEDS: DILTIAZEM (CD) 180 MG CAP PO SCH (09:08)
[2017-01-12] MEDS: CHOLECALCIFEROL 1,000 UNIT TAB PO SCH (09:08)
[2017-01-12] MEDS: FOLIC ACID 1 MG TAB PO SCH (09:08)
[2017-01-12] MEDS: METOPROLOL 25 MG TAB PO SCH ×2 (09:08→20:51)
[2017-01-12 14:25] VITALS: BP 110/69; RESP 16
--- NOTE | 2017-01-12 14:31 | CONS ---
Date/Time of Note Date/Time of Note DATE: 01/12/17 TIME: 14:29 Assessment/Plan Assessment/Plan Additional Assessment/Plan 1. 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 2. h/o donor kidney transplant in 2009 at [facility], currently on immunosuppression with Prograf, CellCept 4. 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 History of hypertension. 6. History of diabetes mellitus. 7. History of previous left upper extremity arteriovenous fistula. 8. Hyponatremia due to hypovolemic hyponatremia Plan: continue Current immunosuppression Prograf and cellcept, Cr normal, plan for left AKA as per -CT chest+ abd+pelvis with and without contrast negative for mass/LAD/Malignancy IV abx as per ID ID, vascular surgery and Primary care following on paient. pt is more alert and stable today, mentating well. will follow up Consultation Date/Type/Reason Admit Date/Time Dec 26, 2016 at 13:22 Initial Consult Date 12/27/16 Type of Consultation: NEPHROLOGY Referring Provider: LES GILLILAND 24 HR Interval Summary Free Text/Dictation plan for possible left AKA amputation , pt is mentating well, alert awake, asked " when surgery would be done." Exam/Review of Systems Vital Signs Vitals Vital Signs Date Time Temp Pulse Resp B/P Pulse Ox O2 Delivery O2 Flow Rate FiO2 01/12/17 07:55 97.6 77 16 149/79 100 01/10/17 02:00 Room Air Intake and Output 01/11/17 01/11/17 01/12/17 15:00 23:00 07:00 Intake Total 550 ml 825 ml 800 ml Balance 550 ml 825 ml 800 ml Exam Constitutional: alert, oriented Psych: no complaints Head: normocephalic ENMT: nl external ears & nose Neck: non-tender, supple Respiratory: clear to auscultation, normal air movement Cardiovascular: nl pulses, regular rate and rhythm Gastrointestinal: non-tender, soft Musculoskeletal: other (LE gangrene ) Results Result Diagram: 01/12/17 0541 01/12/17 0541 Results 24 hrs Laboratory Tests Test 01/11/17 17:22 01/11/17 20:15 01/12/17 05:41 01/12/17 08:19 Bedside Glucose 112 146 88 White Blood Count 7.1 Red Blood Count 3.27 L Hemoglobin 9.1 L Hematocrit 28.0 L Mean Corpuscular Volume 85.6 Mean Corpuscular Hemoglobin 27.8 L Mean Corpuscular Hemoglobin Concent 32.5 Red Cell Distribution Width 14.2 Platelet Count 262 Mean Platelet Volume 11.2 H Neutrophils % 68.3 Lymphocytes % 14.9 L Monocytes % 15.3 H Eosinophils % 1.0 Basophils % 0.1 Nucleated Red Blood Cells % 0.0 Neutrophils # 4.9 Lymphocytes # 1.1 Monocytes # 1.1 H Eosinophils # 0.1 Basophils # 0.0 Nucleated Red Blood Cells # 0.0 Sodium Level 135 Potassium Level 3.8 Chloride Level 106 Carbon Dioxide Level 23 Anion Gap 10 Blood Urea Nitrogen 20 # Creatinine 0.70 Glucose Level 91 Calcium Level 8.5 Test 01/12/17 12:12 Bedside Glucose 101 Medications Medications Current Medications Aspirin (Halfprin) 81 mg DAILY PO Last administered on 01/12/17 09:07; Admin Dose 81 MG; Start 12/27/16 at 09:00 Benazepril HCl (Lotensin) 10 mg DAILY PO Last administered on 01/12/17 09:07; Admin Dose 10 MG; Start 12/27/16 at 09:00 Clopidogrel Bisulfate (plaVIX) 75 mg DAILY PO Last administered on 01/12/17 09 :07; Admin Dose 75 MG; Start 12/27/16 at 09:00 Diltiazem HCl (Cardizem Cd) 180 mg DAILY PO Last administered on 01/12/17 09: 08; Admin Dose 180 MG; Start 12/26/16 at 14:00 Famotidine (Pepcid) 40 mg HS PO Last administered on 01/11/17 20:17; Admin Dose 40 MG; Start 12/26/16 at 21:00 Folic Acid (Folic Acid) 1 mg DAILY PO Last administered on 01/12/17 09:08; Admin Dose 1 MG; Start 12/27/16 at 09:00 Gabapentin (Neurontin) 100 mg TID PO Last administered on 01/12/17 13:01; Admin Dose 100 MG; Start 12/26/16 at 21:00 Metoprolol Tartrate (Lopressor) 75 mg BID PO Last administered on 01/12/17 09: 08; Admin Dose 75 MG; Start 12/26/16 at 21:00 Mycophenolate Mofetil (Cellcept) 1,000 mg BID PO Last administered on 09:07; Admin Dose 1,000 MG; Start 12/26/16 at 21:00 Pantoprazole (Protonix Tab) 40 mg DAILY@06 PO Last administered on 01/12/17 06 :19; Admin Dose 40 MG; Start 12/27/16 at 06:00 Diagnostic Test (Pha) (Accu-Chek) 1 ea 02 XX ; Start 12/27/16 at 02:00 Miscellaneous Information 1 ea NOTE XX ; Start 12/26/16 at 14:30 Glucose (Glutose) 15 gm Q15M PRN PO DECREASED GLUCOSE; Start 12/26/16 at 14:30 Glucose (Glutose) 22.5 gm Q15M PRN PO DECREASED GLUCOSE; Start 12/26/16 at 14:30 Dextrose (D50w Syringe) 25 ml Q15M PRN IV DECREASED GLUCOSE; Start 12/26/16 at 14:30 Dextrose (D50w Syringe) 50 ml Q15M PRN IV DECREASED GLUCOSE; Start 12/26/16 at 14:30 Glucagon (Glucagen) 1 mg Q15M PRN IM DECREASED GLUCOSE; Start 12/26/16 at 14:30 Glucose (Glutose) 15 gm Q15M PRN BUCCAL DECREASED GLUCOSE; Start 12/26/16 at 14: 30 Acetaminophen/ Hydrocodone Bitart ([place] (5/325)) 1 tab Q8 PO Last administered on 01/12/17 13:05; Admin Dose 1 TAB; Start 12/26/16 at 22:00 Cholecalciferol (Vitamin D) 1,000 unit DAILY PO Last administered on 01/12/17 09:08; Admin Dose 1,000 UNIT; Start 12/28/16 at 09:00 Insulin Glargine (Lantus) 7 unit DAILY@20 SC Last administered on 01/11/17 20: 21; Admin Dose 7 UNIT; Start 12/29/16 at 20:00 Ondansetron HCl 4 mg 4 mg Q6H PRN IV NAUSEA AND/OR VOMITING Last administered on 01/01/17 10:00; Admin Dose 4 MG; Start 01/01/17 at 10:00 Ertapenem 1 gm/ Sodium Chloride 100 ml @ 200 mls/hr Q24H IVPB Last administered on 01/11/17 14:47; Admin Dose 200 MLS/HR; Start 01/06/17 at 14:30 Sodium Chloride (NS) 1,000 ml @ 75 mls/hr [id number] IV Last administered on 01/12 06:18; Admin Dose 75 MLS/HR; Start 01/06/17 at 18:00 Haloperidol (Haldol) 2 mg Q4H PRN IM AGITATION/ANXIETY Last administered on 22:46; Admin Dose 2 MG; Start 01/08/17 at 01:30 Acetaminophen (Tylenol Tab) 650 mg Q6H PRN PO PAIN AND OR ELEVATED TEMP Last administered on 01/10/17 10:48; Admin Dose 650 MG; Start 01/08/17 at 22:30 Quetiapine Fumarate (Seroquel) 25 mg QHS PRN PO agitation/hallucinations Last administered on 01/09/17 22:15; Admin Dose 25 MG; Start 01/09/17 at 21:00 Morphine Sulfate (morphine) 2 mg Q8H PRN IV PAIN LEVEL 6-10; Start 01/11/17 at 14:00 Tacrolimus (Prograf) 2 mg Q12 PO Last administered on 01/12/17 09:07; Admin Dose 2 MG; Start 01/11/17 at 21:00 RAMON KEMP MD Jan 12, 2017 14:31
--- NOTE | 2017-01-12 15:01 | CONS ---
Date/Time of Note Date/Time of Note DATE: 01/12/17 TIME: 15:00 Assessment/Plan Assessment/Plan Chief Complaint/Hosp Course Altered mental status and gangrene at the left foot Problems: Additional Assessment/Plan 61 yo female with history of advanced peripheral arterial disease, bilateral feet gangrene with e.coli ESBL, history of kidney transplant remains on immunosuppressive therapy, DM, HTN admitted for AKA with hallucinations, delirium. MRI of the brain showed marked bifrontal cerebral volume loss, minimal dural enhancement which is nonspecific. She is being planned to have left below-knee amputation. Recommendations: -avoid overly sedating medications --continue infectious work up -will continue to follow Consultation Date/Type/Reason Admit Date/Time Dec 26, 2016 at 13:22 Initial Consult Date 01/09/17 Type of Consultation: NEPHROLOGY Referring Provider: LES GILLILAND 24 HR Interval Summary Free Text/Dictation Clinically unchanged. More awake and alert. Exam/Review of Systems Vital Signs Vitals Vital Signs Date Time Temp Pulse Resp B/P Pulse Ox O2 Delivery O2 Flow Rate FiO2 01/12/17 14:25 98.7 62 16 100 01/10/17 02:00 Room Air Intake and Output 01/11/17 01/11/17 01/12/17 15:00 23:00 07:00 Intake Total 550 ml 825 ml 800 ml Balance 550 ml 825 ml 800 ml Exam Constitutional: alert, oriented, well developed Psych: nl mood/affect, no complaints Head: atraumatic, normocephalic Eyes: EOMI, nl conjunctiva, nl lids ENMT: nl external ears & nose, nl lips & teeth, nl nasal mucosa & septum Neck: non-tender, supple Respiratory: clear to auscultation, normal air movement Cardiovascular: nl pulses, regular rate and rhythm Gastrointestinal: nl liver, spleen, non-tender, soft Neurological: ALUMINIZER II-XII intact, nl speech, other (limited exam for motor and sensory) Results Result Diagram: 01/12/17 0541 01/12/17 0541 Results 24 hrs Laboratory Tests Test 01/11/17 17:22 01/11/17 20:15 01/12/17 05:41 01/12/17 08:19 Bedside Glucose 112 146 88 White Blood Count 7.1 Red Blood Count 3.27 L Hemoglobin 9.1 L Hematocrit 28.0 L Mean Corpuscular Volume 85.6 Mean Corpuscular Hemoglobin 27.8 L Mean Corpuscular Hemoglobin Concent 32.5 Red Cell Distribution Width 14.2 Platelet Count 262 Mean Platelet Volume 11.2 H Neutrophils % 68.3 Lymphocytes % 14.9 L Monocytes % 15.3 H Eosinophils % 1.0 Basophils % 0.1 Nucleated Red Blood Cells % 0.0 Neutrophils # 4.9 Lymphocytes # 1.1 Monocytes # 1.1 H Eosinophils # 0.1 Basophils # 0.0 Nucleated Red Blood Cells # 0.0 Sodium Level 135 Potassium Level 3.8 Chloride Level 106 Carbon Dioxide Level 23 Anion Gap 10 Blood Urea Nitrogen 20 # Creatinine 0.70 Glucose Level 91 Calcium Level 8.5 Test 01/12/17 12:12 Bedside Glucose 101 Medications Medications Current Medications Aspirin (Halfprin) 81 mg DAILY PO Last administered on 01/12/17 09:07; Admin Dose 81 MG; Start 12/27/16 at 09:00 Benazepril HCl (Lotensin) 10 mg DAILY PO Last administered on 01/12/17 09:07; Admin Dose 10 MG; Start 12/27/16 at 09:00 Clopidogrel Bisulfate (plaVIX) 75 mg DAILY PO Last administered on 01/12/17 09 :07; Admin Dose 75 MG; Start 12/27/16 at 09:00 Diltiazem HCl (Cardizem Cd) 180 mg DAILY PO Last administered on 01/12/17 09: 08; Admin Dose 180 MG; Start 12/26/16 at 14:00 Famotidine (Pepcid) 40 mg HS PO Last administered on 01/11/17 20:17; Admin Dose 40 MG; Start 12/26/16 at 21:00 Folic Acid (Folic Acid) 1 mg DAILY PO Last administered on 01/12/17 09:08; Admin Dose 1 MG; Start 12/27/16 at 09:00 Gabapentin (Neurontin) 100 mg TID PO Last administered on 01/12/17 13:01; Admin Dose 100 MG; Start 12/26/16 at 21:00 Metoprolol Tartrate (Lopressor) 75 mg BID PO Last administered on 01/12/17 09: 08; Admin Dose 75 MG; Start 12/26/16 at 21:00 Mycophenolate Mofetil (Cellcept) 1,000 mg BID PO Last administered on 09:07; Admin Dose 1,000 MG; Start 12/26/16 at 21:00 Pantoprazole (Protonix Tab) 40 mg DAILY@06 PO Last administered on 01/12/17 06 :19; Admin Dose 40 MG; Start 12/27/16 at 06:00 Diagnostic Test (Pha) (Accu-Chek) 1 ea 02 XX ; Start 12/27/16 at 02:00 Miscellaneous Information 1 ea NOTE XX ; Start 12/26/16 at 14:30 Glucose (Glutose) 15 gm Q15M PRN PO DECREASED GLUCOSE; Start 12/26/16 at 14:30 Glucose (Glutose) 22.5 gm Q15M PRN PO DECREASED GLUCOSE; Start 12/26/16 at 14:30 Dextrose (D50w Syringe) 25 ml Q15M PRN IV DECREASED GLUCOSE; Start 12/26/16 at 14:30 Dextrose (D50w Syringe) 50 ml Q15M PRN IV DECREASED GLUCOSE; Start 12/26/16 at 14:30 Glucagon (Glucagen) 1 mg Q15M PRN IM DECREASED GLUCOSE; Start 12/26/16 at 14:30 Glucose (Glutose) 15 gm Q15M PRN BUCCAL DECREASED GLUCOSE; Start 12/26/16 at 14: 30 Acetaminophen/ Hydrocodone Bitart ([place] (5/325)) 1 tab Q8 PO Last administered on 01/12/17 13:05; Admin Dose 1 TAB; Start 12/26/16 at 22:00 Cholecalciferol (Vitamin D) 1,000 unit DAILY PO Last administered on 01/12/17 09:08; Admin Dose 1,000 UNIT; Start 12/28/16 at 09:00 Insulin Glargine (Lantus) 7 unit DAILY@20 SC Last administered on 01/11/17 20: 21; Admin Dose 7 UNIT; Start 12/29/16 at 20:00 Ondansetron HCl 4 mg 4 mg Q6H PRN IV NAUSEA AND/OR VOMITING Last administered on 01/01/17 10:00; Admin Dose 4 MG; Start 01/01/17 at 10:00 Ertapenem 1 gm/ Sodium Chloride 100 ml @ 200 mls/hr Q24H IVPB Last administered on 9/23/17at 14:47; Admin Dose 200 MLS/HR; Start 01/06/17 at 14:30 Sodium Chloride (NS) 1,000 ml @ 75 mls/hr [id number] IV Last administered on 01/12 06:18; Admin Dose 75 MLS/HR; Start 01/06/17 at 18:00 Haloperidol (Haldol) 2 mg Q4H PRN IM AGITATION/ANXIETY Last administered on 22:46; Admin Dose 2 MG; Start 01/08/17 at 01:30 Acetaminophen (Tylenol Tab) 650 mg Q6H PRN PO PAIN AND OR ELEVATED TEMP Last administered on 01/10/17 10:48; Admin Dose 650 MG; Start 01/08/17 at 22:30 Quetiapine Fumarate (Seroquel) 25 mg QHS PRN PO agitation/hallucinations Last administered on 01/09/17 22:15; Admin Dose 25 MG; Start 01/09/17 at 21:00 Morphine Sulfate (morphine) 2 mg Q8H PRN IV PAIN LEVEL 6-10; Start 01/11/17 at 14:00 Tacrolimus (Prograf) 2 mg Q12 PO Last administered on 01/12/17 09:07; Admin Dose 2 MG; Start 01/11/17 at 21:00 JOVANNA LAL MD Jan 12, 2017 15:01
--- NOTE | 2017-01-12 16:00 | CONS ---
Date/Time of Note Date/Time of Note DATE: 01/12/17 TIME: 15:57 Assessment/Plan Assessment/Plan Chief Complaint/Hosp Course SUBJECTIVE DATA: Awake. Alert. No Acute Distress. MICROBIOLOGY: Right foot culture grew E. coli ESBL. ANTIMICROBIALS: Patient is on Invanz. PHYSICAL EXAMINATION: This is a wasted fragile elderly woman who is awake in no distress. HEENT: Head atraumatic, normocephalic. Sclerae anicteric. NECK: Supple. CHEST: Rise symmetrical. Breath sounds clear. HEART: S1, S2. ABDOMEN: Soft, bowel sounds present. ASSESSMENT: 1. S/p leukocytosis with worsening mental status, so far no evidence of acute infection except in her feet 2. 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 2. Severe peripheral arterial disease. 3. History of kidney transplant, remains on immunosuppressive therapy. 4. Diabetes and hypertension. 5. Cachexia PLAN: Clinically stable, blood cultures and chest x-ray negative, continue antibiotics, follow vascular and neuro recommendations. Pain Management. Pending above-knee amputation. Problems: Consultation Date/Type/Reason Admit Date/Time Dec 26, 2016 at 13:22 Initial Consult Date 12/27/16 Type of Consultation: id Referring Provider: LES GILLILAND Exam/Review of Systems Vital Signs Vitals Vital Signs Date Time Temp Pulse Resp B/P Pulse Ox O2 Delivery O2 Flow Rate FiO2 01/12/17 14:25 98.7 62 16 110/69 100 01/10/17 02:00 Room Air Intake and Output 01/11/17 01/11/17 01/12/17 15:00 23:00 07:00 Intake Total 550 ml 825 ml 800 ml Balance 550 ml 825 ml 800 ml Results Result Diagram: 01/12/17 0541 01/12/17 0541 Results 24 hrs Laboratory Tests Test 01/11/17 17:22 01/11/17 20:15 01/12/17 05:41 01/12/17 08:19 Bedside Glucose 112 146 88 White Blood Count 7.1 Red Blood Count 3.27 L Hemoglobin 9.1 L Hematocrit 28.0 L Mean Corpuscular Volume 85.6 Mean Corpuscular Hemoglobin 27.8 L Mean Corpuscular Hemoglobin Concent 32.5 Red Cell Distribution Width 14.2 Platelet Count 262 Mean Platelet Volume 11.2 H Neutrophils % 68.3 Lymphocytes % 14.9 L Monocytes % 15.3 H Eosinophils % 1.0 Basophils % 0.1 Nucleated Red Blood Cells % 0.0 Neutrophils # 4.9 Lymphocytes # 1.1 Monocytes # 1.1 H Eosinophils # 0.1 Basophils # 0.0 Nucleated Red Blood Cells # 0.0 Sodium Level 135 Potassium Level 3.8 Chloride Level 106 Carbon Dioxide Level 23 Anion Gap 10 Blood Urea Nitrogen 20 # Creatinine 0.70 Glucose Level 91 Calcium Level 8.5 Test 01/12/17 12:12 Bedside Glucose 101 Medications Medications Current Medications Aspirin (Halfprin) 81 mg DAILY PO Last administered on 01/12/17 09:07; Admin Dose 81 MG; Start 12/27/16 at 09:00 Benazepril HCl (Lotensin) 10 mg DAILY PO Last administered on 01/12/17 09:07; Admin Dose 10 MG; Start 12/27/16 at 09:00 Clopidogrel Bisulfate (plaVIX) 75 mg DAILY PO Last administered on 01/12/17 09 :07; Admin Dose 75 MG; Start 12/27/16 at 09:00 Diltiazem HCl (Cardizem Cd) 180 mg DAILY PO Last administered on 01/12/17 09: 08; Admin Dose 180 MG; Start 12/26/16 at 14:00 Famotidine (Pepcid) 40 mg HS PO Last administered on 01/11/17 20:17; Admin Dose 40 MG; Start 12/26/16 at 21:00 Folic Acid (Folic Acid) 1 mg DAILY PO Last administered on 01/12/17 09:08; Admin Dose 1 MG; Start 12/27/16 at 09:00 Gabapentin (Neurontin) 100 mg TID PO Last administered on 01/12/17 13:01; Admin Dose 100 MG; Start 12/26/16 at 21:00 Metoprolol Tartrate (Lopressor) 75 mg BID PO Last administered on 01/12/17 09: 08; Admin Dose 75 MG; Start 12/26/16 at 21:00 Mycophenolate Mofetil (Cellcept) 1,000 mg BID PO Last administered on 09:07; Admin Dose 1,000 MG; Start 12/26/16 at 21:00 Pantoprazole (Protonix Tab) 40 mg DAILY@06 PO Last administered on 01/12/17 06 :19; Admin Dose 40 MG; Start 12/27/16 at 06:00 Diagnostic Test (Pha) (Accu-Chek) 1 ea 02 XX ; Start 12/27/16 at 02:00 Miscellaneous Information 1 ea NOTE XX ; Start 12/26/16 at 14:30 Glucose (Glutose) 15 gm Q15M PRN PO DECREASED GLUCOSE; Start 12/26/16 at 14:30 Glucose (Glutose) 22.5 gm Q15M PRN PO DECREASED GLUCOSE; Start 12/26/16 at 14:30 Dextrose (D50w Syringe) 25 ml Q15M PRN IV DECREASED GLUCOSE; Start 12/26/16 at 14:30 Dextrose (D50w Syringe) 50 ml Q15M PRN IV DECREASED GLUCOSE; Start 12/26/16 at 14:30 Glucagon (Glucagen) 1 mg Q15M PRN IM DECREASED GLUCOSE; Start 12/26/16 at 14:30 Glucose (Glutose) 15 gm Q15M PRN BUCCAL DECREASED GLUCOSE; Start 12/26/16 at 14: 30 Acetaminophen/ Hydrocodone Bitart ([place] (5/325)) 1 tab Q8 PO Last administered on 01/12/17 13:05; Admin Dose 1 TAB; Start 12/26/16 at 22:00 Cholecalciferol (Vitamin D) 1,000 unit DAILY PO Last administered on 01/12/17 09:08; Admin Dose 1,000 UNIT; Start 12/28/16 at 09:00 Insulin Glargine (Lantus) 7 unit DAILY@20 SC Last administered on 01/11/17 20: 21; Admin Dose 7 UNIT; Start 12/29/16 at 20:00 Ondansetron HCl 4 mg 4 mg Q6H PRN IV NAUSEA AND/OR VOMITING Last administered on 01/01/17 10:00; Admin Dose 4 MG; Start 01/01/17 at 10:00 Ertapenem 1 gm/ Sodium Chloride 100 ml @ 200 mls/hr Q24H IVPB Last administered on 01/11/17 14:47; Admin Dose 200 MLS/HR; Start 01/06/17 at 14:30 Sodium Chloride (NS) 1,000 ml @ 75 mls/hr [id number] IV Last administered on 01/12 06:18; Admin Dose 75 MLS/HR; Start 01/06/17 at 18:00; Status Future Hold Haloperidol (Haldol) 2 mg Q4H PRN IM AGITATION/ANXIETY Last administered on 22:46; Admin Dose 2 MG; Start 01/08/17 at 01:30 Acetaminophen (Tylenol Tab) 650 mg Q6H PRN PO PAIN AND OR ELEVATED TEMP Last administered on 01/10/17 10:48; Admin Dose 650 MG; Start 01/08/17 at 22:30 Quetiapine Fumarate (Seroquel) 25 mg QHS PRN PO agitation/hallucinations Last administered on 01/09/17 22:15; Admin Dose 25 MG; Start 01/09/17 at 21:00 Morphine Sulfate (morphine) 2 mg Q8H PRN IV PAIN LEVEL 6-10; Start 01/11/17 at 14:00 Tacrolimus 2 mg 2 mg Q12 PO Last administered on 01/12/17 09:07; Admin Dose 2 MG; Start 01/11/17 at 21:00 Dextrose/Sodium Chloride (D5-1/2ns) 1,000 ml @ 75 mls/hr [id number] IV ; Start at 15:00 ROBERT GOETZ NP Jan 12, 2017 16:00
[2017-01-12] MEDS: DEXTROSE 5%-0.45% NACL 1,000 ML IV SCH (16:04)
[2017-01-12] MEDS: ERTAPENEM SODIUM 1 GM in SOD CHLORIDE 0.9% 100 ML IVPB SCH (16:04)
[2017-01-12] MEDS: INSULIN GLARGINE [LANtus] 3 ML PEN SC SCH (20:49)
[2017-01-12] MEDS: FAMOTIDINE 20 MG TAB PO SCH (20:51)
[2017-01-12 20:55] VITALS: BP 153/76; RESP 16
[2017-01-13] VITALS (14 sets, daily range): BP systolic 117–150; BP diastolic 63–80; PULSE 78–86; RESP 16–47
--- NOTE | 2017-01-13 00:30 | PN ---
Date/Time of Note Date/Time of Note DATE: 01/13/17 TIME: 00:10 Assessment/Plan VTE Prophylaxis VTE Prophylaxis Intervention: other (aspirin and clopidogrel) Lines/Catheters IV Catheter Type (from Nrs): Peripheral IV Urinary Cath still in place: No Subjective 24 Hr Interval Summary Free Text/Dictation PROGRESS NOTE Date/Time of Note Date/Time of Note DATE: 01/12/17 TIME: 00:00 Assessment/Plan VTE Prophylaxis VTE Prophylaxis Intervention: other Lines/Catheters IV Catheter Type (from Nrs): Peripheral IV Urinary Cath still in place: No Subjective 24 Hr Interval Summary Free Text/Dictation Date/Time of Note Date/Time of Note DATE: 01/11/17 TIME: 23:40 Assessment/Plan Assessment/Plan Chief Complaint/Hosp Course IMP: 1. [id number] test 10/2016 with no ischemia/only scar/NL EF. Negative trop x 3. Patient is ok to proceed to OR at moderate risk without further noninvasive evaluation on current medications 2. HTN-labile but reasonable control 3. PAD with bilateral gangrene 4. DM 5. Anemia 6. Encephalopathy Recc: -Continuer asa/plavix -Cointinue benazepril/metoprolol -Local wound care -Continue abx's and f/u cx data -pending LE amputation when stable Initial consultation Date/Type/Reason Admit Date/Time Dec 26, 2016 at 13:22 Initial Consult Date 12/27/16 Reason for Consultation (cardiology) pre-op Referring Provider: LES GILLILAND Exam/Review of Systems Vital Signs Vitals Vital Signs Date Time Temp Pulse Resp B/P Pulse Ox O2 Delivery O2 Flow Rate FiO2 01/12/17 08:58 97.5 88 18 135/77 100 01/12/17 02:00 Room Air Intake and Output 01/09/17 01/09/17 01/10/17 15:00 23:00 07:00 Intake Total 900 ml 890 ml 1150 ml Balance 900 ml 890 ml 1150 ml Exam Review of Systems: CONSTITUTIONAL: No fevers, chills. PULMONARY: No sob CARDIOVASCULAR: No chest pain/palpitations GASTROINTESTINAL: No nausea/vomiting. GENITOURINARY: No hematuria/dysuria. MUSCULOSKELETAL: pain in foot PSYCHIATRIC: The patient denies depression. NEUROLOGIC: No weakness Psych: Patient is more alert today, NOT confused ORAL mucosa pink and moist (?) Neck: jvd (9), supple Respiratory: diminished breath sounds Cardiovascular: regular rate and rhythm Gastrointestinal: soft Musculoskeletal: muscle tone (normal) Extremities: lower extremities with gangrene of both feet. Neurological: improved Laboratory Tests Test 01/09/17 17:07 01/09/17 20:42 01/10/17 08:01 01/10/17 11:08 Bedside Glucose 126 153 104 White Blood Count 8.3 Red Blood Count 3.74 L Hemoglobin 10.6 L Hematocrit 31.5 L Mean Corpuscular Volume 84.2 Mean Corpuscular Hemoglobin 28.3 L Mean Corpuscular Hemoglobin Concentration 33.7 Red Cell Distribution Width 13.6 Platelet Count 277 Mean Platelet Volume 10.7 H Neutrophils % 82.8 H Lymphocytes % 7.7 L Monocytes % 8.5 Eosinophils % 0.4 Basophils % 0.2 Nucleated Red Blood Cells % 0.0 Neutrophils # 6.9 Lymphocytes # 0.6 L Monocytes # 0.7 Eosinophils # 0.0 Basophils # 0.0 Nucleated Red Blood Cells # 0.0 Sodium Level 129 L Potassium Level 3.4 L Chloride Level 99 Carbon Dioxide Level 22 Anion Gap 11 Blood Urea Nitrogen 6 L Creatinine 0.51 Glucose Level 145 # Calcium Level 9.2 Bedside Glucose 200 Current Medications Aspirin (Halfprin) 81 mg DAILY PO Last administered on 01/10/17 08:56; Admin Dose 81 MG; Start 12/27/16 at 09:00 Benazepril HCl (Lotensin) 10 mg DAILY PO Last administered on 01/10/17 08:57; Admin Dose 10 MG; Start 12/27/16 at 09:00 Clopidogrel Bisulfate (plaVIX) 75 mg DAILY PO Last administered on 01/10/17 08 :56; Admin Dose 75 MG; Start 12/27/16 at 09:00 Diltiazem HCl (Cardizem Cd) 180 mg DAILY PO Last administered on 01/10/17 08: 55; Admin Dose 180 MG; Start 12/26/16 at 14:00 Famotidine (Pepcid) 40 mg HS PO Last administered on 01/09/17 21:11; Admin Dose 40 MG; Start 12/26/16 at 21:00 Folic Acid (Folic Acid) 1 mg DAILY PO Last administered on 01/10/17 08:56; Admin Dose 1 MG; Start 12/27/16 at 09:00 Gabapentin (Neurontin) 100 mg TID PO Last administered on 01/10/17 12:25; Admin Dose 100 MG; Start 12/26/16 at 21:00 Metoprolol Tartrate (Lopressor) 75 mg BID PO Last administered on 01/10/17 08: 56; Admin Dose 75 MG; Start 12/26/16 at 21:00 Mycophenolate Mofetil (Cellcept) 1,000 mg BID PO Last administered on 08:55; Admin Dose 1,000 MG; Start 12/26/16 at 21:00 Tacrolimus (Prograf) 2 mg Q12 PO Last administered on 01/10/17 08:55; Admin Dose 2 MG; Start 12/26/16 at 21:00 Pantoprazole (Protonix Tab) 40 mg DAILY@06 PO Last administered on 01/10/17 05 :24; Admin Dose 40 MG; Start 12/27/16 at 06:00 Morphine Sulfate (morphine) 2 mg Q4H PRN IV PAIN LEVEL 6-10 Last administered on 01/07/17 02:42; Admin Dose 2 MG; Start 12/26/16 at 14:30 Diagnostic Test (Pha) (Accu-Chek) 1 ea 02 XX ; Start 12/27/16 at 02:00 Miscellaneous Information 1 ea NOTE XX ; Start 12/26/16 at 14:30 Glucose (Glutose) 15 gm Q15M PRN PO DECREASED GLUCOSE; Start 12/26/16 at 14:30 Glucose (Glutose) 22.5 gm Q15M PRN PO DECREASED GLUCOSE; Start 12/26/16 at 14:30 Dextrose (D50w Syringe) 25 ml Q15M PRN IV DECREASED GLUCOSE; Start 12/26/16 at 14:30 Dextrose (D50w Syringe) 50 ml Q15M PRN IV DECREASED GLUCOSE; Start 12/26/16 at 14:30 Glucagon (Glucagen) 1 mg Q15M PRN IM DECREASED GLUCOSE; Start 12/26/16 at 14:30 Glucose (Glutose) 15 gm Q15M PRN BUCCAL DECREASED GLUCOSE; Start 12/26/16 at 14: 30 Acetaminophen/ Hydrocodone Bitart ([place] (5/325)) 1 tab Q8 PO Last administered on 01/10/17 14:00; Admin Dose 1 TAB; Start 12/26/16 at 22:00 Cholecalciferol (Vitamin D) 1,000 unit DAILY PO Last administered on 01/10/17 08:56; Admin Dose 1,000 UNIT; Start 12/28/16 at 09:00 Insulin Glargine (Lantus) 7 unit DAILY@20 SC Last administered on 01/09/17 20: 00; Admin Dose 7 UNIT; Start 12/29/16 at 20:00 Ondansetron HCl 4 mg 4 mg Q6H PRN IV NAUSEA AND/OR VOMITING Last administered on 01/01/17 10:00; Admin Dose 4 MG; Start 01/01/17 at 10:00 Ertapenem 1 gm/ Sodium Chloride 100 ml @ 200 mls/hr Q24H IVPB Last administered on 01/10/17 14:01; Admin Dose 200 MLS/HR; Start 01/06/17 at 14:30 Sodium Chloride (NS) 1,000 ml @ 75 mls/hr [id number] IV Last administered on 01/10 05:24; Admin Dose 75 MLS/HR; Start 01/06/17 at 18:00 Haloperidol (Haldol) 2 mg Q4H PRN IM AGITATION/ANXIETY Last administered on 22:46; Admin Dose 2 MG; Start 01/08/17 at 01:30 Acetaminophen (Tylenol Tab) 650 mg Q6H PRN PO PAIN AND OR ELEVATED TEMP Last administered on 01/10/17 10:48; Admin Dose 650 MG; Start 01/08/17 at 22:30 Quetiapine Fumarate 25 mg 25 mg QHS PRN PO agitation/hallucinations Last administered on 01/09/17 22:15; Admin Dose 25 MG; Start 01/09/17 at 21:00 Potassium Chloride/Sodium Chloride (KCl/NS) 110 ml @ 55 mls/hr ONCE ONCE IVPB ; Start 01/10/17 at 16:30; Stop 01/10/17 at 18:29 Patient is scheduled for bilateral lower extremities amputation on 01/13/2017 ! Darrian Villaseñor MD 01/12/17 Exam/Review of Systems Vital Signs Vitals Vital Signs Date Time Temp Pulse Resp B/P Pulse Ox O2 Delivery O2 Flow Rate FiO2 01/12/17 20:44 98.3 66 16 153/76 98 01/12/17 02:00 Room Air Intake and Output 01/11/17 01/11/17 01/12/17 15:00 23:00 07:00 Intake Total 550 ml 825 ml Balance 550 ml 825 ml Results Result Diagram: 01/11/17 0537 01/11/17 0537 Results 24 hrs Laboratory Tests Test 01/11/17 05:37 01/11/17 07:51 01/11/17 11:48 01/11/17 17:22 White Blood Count 7.4 Red Blood Count 3.57 L Hemoglobin 10.1 L Hematocrit 30.7 L Mean Corpuscular Volume 86.0 Mean Corpuscular Hemoglobin 28.3 L Mean Corpuscular Hemoglobin Concent 32.9 Red Cell Distribution Width 14.0 Platelet Count 274 Mean Platelet Volume 11.0 H Neutrophils % 75.6 Lymphocytes % 11.4 L Monocytes % 11.4 H Eosinophils % 1.1 Basophils % 0.1 Nucleated Red Blood Cells % 0.0 Neutrophils # 5.6 Lymphocytes # 0.8 Monocytes # 0.8 Eosinophils # 0.1 Basophils # 0.0 Nucleated Red Blood Cells # 0.0 Sodium Level 136 Potassium Level 4.2 Chloride Level 107 Carbon Dioxide Level 21 Anion Gap 12 Blood Urea Nitrogen 7 Creatinine 0.53 Glucose Level 68 #L Calcium Level 8.9 Bedside Glucose 82 99 112 Test 01/11/17 20:15 Bedside Glucose 146 Medications Medications Current Medications Aspirin (Halfprin) 81 mg DAILY PO Last administered on 01/11/17 09:06; Admin Dose 81 MG; Start 12/27/16 at 09:00 Benazepril HCl (Lotensin) 10 mg DAILY PO Last administered on 01/11/17 09:07; Admin Dose 10 MG; Start 12/27/16 at 09:00 Clopidogrel Bisulfate (plaVIX) 75 mg DAILY PO Last administered on 01/11/17 09 :06; Admin Dose 75 MG; Start 12/27/16 at 09:00 Diltiazem HCl (Cardizem Cd) 180 mg DAILY PO Last administered on 01/11/17 09: 07; Admin Dose 180 MG; Start 12/26/16 at 14:00 Famotidine (Pepcid) 40 mg HS PO Last administered on 01/11/17 20:17; Admin Dose 40 MG; Start 12/26/16 at 21:00 Folic Acid (Folic Acid) 1 mg DAILY PO Last administered on 01/11/17 09:06; Admin Dose 1 MG; Start 12/27/16 at 09:00 Gabapentin (Neurontin) 100 mg TID PO Last administered on 01/11/17 20:17; Admin Dose 100 MG; Start 12/26/16 at 21:00 Metoprolol Tartrate (Lopressor) 75 mg BID PO Last administered on 01/11/17 20: 18; Admin Dose 75 MG; Start 12/26/16 at 21:00 Mycophenolate Mofetil (Cellcept) 1,000 mg BID PO Last administered on 20:19; Admin Dose 1,000 MG; Start 12/26/16 at 21:00 Pantoprazole (Protonix Tab) 40 mg DAILY@06 PO Last administered on 01/11/17 05 :49; Admin Dose 40 MG; Start 12/27/16 at 06:00 Diagnostic Test (Pha) (Accu-Chek) 1 ea 02 XX ; Start 12/27/16 at 02:00 Miscellaneous Information 1 ea NOTE XX ; Start 12/26/16 at 14:30 Glucose (Glutose) 15 gm Q15M PRN PO DECREASED GLUCOSE; Start 12/26/16 at 14:30 Glucose (Glutose) 22.5 gm Q15M PRN PO DECREASED GLUCOSE; Start 12/26/16 at 14:30 Dextrose (D50w Syringe) 25 ml Q15M PRN IV DECREASED GLUCOSE; Start 12/26/16 at 14:30 Dextrose (D50w Syringe) 50 ml Q15M PRN IV DECREASED GLUCOSE; Start 12/26/16 at 14:30 Glucagon (Glucagen) 1 mg Q15M PRN IM DECREASED GLUCOSE; Start 12/26/16 at 14:30 Glucose (Glutose) 15 gm Q15M PRN BUCCAL DECREASED GLUCOSE; Start 12/26/16 at 14: 30 Acetaminophen/ Hydrocodone Bitart ([place] (5/325)) 1 tab Q8 PO Last administered on 01/11/17 21:29; Admin Dose 1 TAB; Start 12/26/16 at 22:00 Cholecalciferol (Vitamin D) 1,000 unit DAILY PO Last administered on 01/11/17 09:06; Admin Dose 1,000 UNIT; Start 12/28/16 at 09:00 Insulin Glargine (Lantus) 7 unit DAILY@20 SC Last administered on 01/11/17 20: 21; Admin Dose 7 UNIT; Start 12/29/16 at 20:00 Ondansetron HCl 4 mg 4 mg Q6H PRN IV NAUSEA AND/OR VOMITING Last administered on 01/01/17 10:00; Admin Dose 4 MG; Start 01/01/17 at 10:00 Ertapenem 1 gm/ Sodium Chloride 100 ml @ 200 mls/hr Q24H IVPB Last administered on 01/11/17 14:47; Admin Dose 200 MLS/HR; Start 01/06/17 at 14:30 Sodium Chloride (NS) 1,000 ml @ 75 mls/hr [id number] IV Last administered on 01/11 14:46; Admin Dose 75 MLS/HR; Start 01/06/17 at 18:00 Haloperidol (Haldol) 2 mg Q4H PRN IM AGITATION/ANXIETY Last administered on 22:46; Admin Dose 2 MG; Start 01/08/17 at 01:30 Acetaminophen (Tylenol Tab) 650 mg Q6H PRN PO PAIN AND OR ELEVATED TEMP Last administered on 01/10/17 10:48; Admin Dose 650 MG; Start 01/08/17 at 22:30 Quetiapine Fumarate (Seroquel) 25 mg QHS PRN PO agitation/hallucinations Last administered on 01/09/17 22:15; Admin Dose 25 MG; Start 01/09/17 at 21:00 Morphine Sulfate (morphine) 2 mg Q8H PRN IV PAIN LEVEL 6-10; Start 01/11/17 at 14:00 Tacrolimus (Prograf) 2 mg Q12 PO Last administered on 01/11/17 22:05; Admin Dose 2 MG; Start 01/11/17 at 21:00 DARRIAN VILLASEÑOR MD Exam/Review of Systems Vital Signs Vitals Vital Signs Date Time Temp Pulse Resp B/P Pulse Ox O2 Delivery O2 Flow Rate FiO2 01/12/17 20:55 98.3 76 16 153/76 100 01/10/17 02:00 Room Air Intake and Output 01/12/17 01/12/17 01/13/17 15:00 23:00 07:00 Intake Total 1240 ml Balance 1240 ml Results Result Diagram: 01/12/17 0541 01/12/17 0541 Results 24 hrs Laboratory Tests Test 01/12/17 05:41 01/12/17 08:19 01/12/17 12:12 01/12/17 16:41 White Blood Count 7.1 Red Blood Count 3.27 L Hemoglobin 9.1 L Hematocrit 28.0 L Mean Corpuscular Volume 85.6 Mean Corpuscular Hemoglobin 27.8 L Mean Corpuscular Hemoglobin Concent 32.5 Red Cell Distribution Width 14.2 Platelet Count 262 Mean Platelet Volume 11.2 H Neutrophils % 68.3 Lymphocytes % 14.9 L Monocytes % 15.3 H Eosinophils % 1.0 Basophils % 0.1 Nucleated Red Blood Cells % 0.0 Neutrophils # 4.9 Lymphocytes # 1.1 Monocytes # 1.1 H Eosinophils # 0.1 Basophils # 0.0 Nucleated Red Blood Cells # 0.0 Sodium Level 135 Potassium Level 3.8 Chloride Level 106 Carbon Dioxide Level 23 Anion Gap 10 Blood Urea Nitrogen 20 # Creatinine 0.70 Glucose Level 91 Calcium Level 8.5 Bedside Glucose 88 101 143 Test 01/12/17 20:45 Bedside Glucose 148 Medications Medications Current Medications Aspirin (Halfprin) 81 mg DAILY PO Last administered on 01/12/17 09:07; Admin Dose 81 MG; Start 12/27/16 at 09:00 Benazepril HCl (Lotensin) 10 mg DAILY PO Last administered on 01/12/17 09:07; Admin Dose 10 MG; Start 12/27/16 at 09:00 Clopidogrel Bisulfate (plaVIX) 75 mg DAILY PO Last administered on 01/12/17 09 :07; Admin Dose 75 MG; Start 12/27/16 at 09:00 Diltiazem HCl (Cardizem Cd) 180 mg DAILY PO Last administered on 01/12/17 09: 08; Admin Dose 180 MG; Start 12/26/16 at 14:00 Famotidine (Pepcid) 40 mg HS PO Last administered on 01/12/17 20:51; Admin Dose 40 MG; Start 12/26/16 at 21:00 Folic Acid (Folic Acid) 1 mg DAILY PO Last administered on 01/12/17 09:08; Admin Dose 1 MG; Start 12/27/16 at 09:00 Gabapentin (Neurontin) 100 mg TID PO Last administered on 01/12/17 20:51; Admin Dose 100 MG; Start 12/26/16 at 21:00 Metoprolol Tartrate (Lopressor) 75 mg BID PO Last administered on 01/12/17 20: 51; Admin Dose 75 MG; Start 12/26/16 at 21:00 Mycophenolate Mofetil (Cellcept) 1,000 mg BID PO Last administered on 20:50; Admin Dose 1,000 MG; Start 12/26/16 at 21:00 Pantoprazole (Protonix Tab) 40 mg DAILY@06 PO Last administered on 01/12/17 06 :19; Admin Dose 40 MG; Start 12/27/16 at 06:00 Diagnostic Test (Pha) (Accu-Chek) 1 ea 02 XX ; Start 12/27/16 at 02:00 Miscellaneous Information 1 ea NOTE XX ; Start 12/26/16 at 14:30 Glucose (Glutose) 15 gm Q15M PRN PO DECREASED GLUCOSE; Start 12/26/16 at 14:30 Glucose (Glutose) 22.5 gm Q15M PRN PO DECREASED GLUCOSE; Start 12/26/16 at 14:30 Dextrose (D50w Syringe) 25 ml Q15M PRN IV DECREASED GLUCOSE; Start 12/26/16 at 14:30 Dextrose (D50w Syringe) 50 ml Q15M PRN IV DECREASED GLUCOSE; Start 12/26/16 at 14:30 Glucagon (Glucagen) 1 mg Q15M PRN IM DECREASED GLUCOSE; Start 12/26/16 at 14:30 Glucose (Glutose) 15 gm Q15M PRN BUCCAL DECREASED GLUCOSE; Start 12/26/16 at 14: 30 Acetaminophen/ Hydrocodone Bitart ([place] (5/325)) 1 tab Q8 PO Last administered on 01/12/17 22:04; Admin Dose 1 TAB; Start 12/26/16 at 22:00 Cholecalciferol (Vitamin D) 1,000 unit DAILY PO Last administered on 01/12/17 09:08; Admin Dose 1,000 UNIT; Start 12/28/16 at 09:00 Insulin Glargine (Lantus) 7 unit DAILY@20 SC Last administered on 01/12/17 20: 49; Admin Dose 7 UNIT; Start 12/29/16 at 20:00 Ondansetron HCl 4 mg 4 mg Q6H PRN IV NAUSEA AND/OR VOMITING Last administered on 01/01/17 10:00; Admin Dose 4 MG; Start 01/01/17 at 10:00 Ertapenem 1 gm/ Sodium Chloride 100 ml @ 200 mls/hr Q24H IVPB Last administered on 01/12/17 16:04; Admin Dose 200 MLS/HR; Start 01/06/17 at 14:30 Sodium Chloride (NS) 1,000 ml @ 75 mls/hr [id number] IV Last administered on 01/12 06:18; Admin Dose 75 MLS/HR; Start 01/06/17 at 18:00; Status Future Hold Haloperidol (Haldol) 2 mg Q4H PRN IM AGITATION/ANXIETY Last administered on 22:46; Admin Dose 2 MG; Start 01/08/17 at 01:30 Acetaminophen (Tylenol Tab) 650 mg Q6H PRN PO PAIN AND OR ELEVATED TEMP Last administered on 01/10/17 10:48; Admin Dose 650 MG; Start 01/08/17 at 22:30 Quetiapine Fumarate (Seroquel) 25 mg QHS PRN PO agitation/hallucinations Last administered on 01/09/17 22:15; Admin Dose 25 MG; Start 01/09/17 at 21:00 Morphine Sulfate (morphine) 2 mg Q8H PRN IV PAIN LEVEL 6-10; Start 01/11/17 at 14:00 Tacrolimus 2 mg 2 mg Q12 PO Last administered on 01/12/17 20:51; Admin Dose 2 MG; Start 01/11/17 at 21:00 Dextrose/Sodium Chloride (D5-1/2ns) 1,000 ml @ 75 mls/hr [id number] IV Last administered on 01/12/17 16:04; Admin Dose 75 MLS/HR; Start 01/12/17 at 15:00 DARRIAN VILLASEÑOR MD Jan 13, 2017 00:28
[2017-01-13] MEDS: ACCU-CHEK XX SCH (02:00)
[2017-01-13 05:48] LABS: BASOPHILS % 0.1 % (0.0-2.0); EOSINOPHILS # 0.1 10^3/ul (0.0-0.5); HEMATOCRIT 27.4 % (37.0-47.0); HEMOGLOBIN 9.1 g/dl (12.0-16.0); LYMPHOCYTES # 0.9 10^3/ul (0.8-2.9); LYMPHOCYTES % 13.3 % (15.0-51.0); MEAN CORPUSCULAR HEMOGLOBIN 28.3 pg (29.0-33.0); MEAN CORPUSCULAR HGB CONC 33.2 g/dl (32.0-37.0); MEAN CORPUSCULAR VOLUME 85.4 fl (82.0-101.0); MEAN PLATELET VOLUME 11.2 fl (7.4-10.4); MONOCYTE # 0.9 10^3/ul (0.3-0.9); MONOCYTES % 12.6 % (0.0-11.0); NEUTROPHILS % 72.7 % (39.0-77.0); PLATELET COUNT 243 10^3/UL (140-415); RED BLOOD COUNT 3.21 10^6/ul (4.20-5.40); RED CELL DISTRIBUTION WIDTH 14.2 % (11.5-14.5); WHITE BLOOD COUNT 6.9 10^3/ul (4.8-10.8)
[2017-01-13] MEDS: HYDROCODONE/APAP (5/325) TAB PO SCH ×3 (06:00→22:03)
[2017-01-13] MEDS: PANTOPRAZOLE (EC) 40 MG TAB PO SCH (06:00)
[2017-01-13 06:12] LABS: INR 1.17; PT RATIO 1.2
[2017-01-13 06:13] LABS: PARTIAL THROMBOPLASTIN TIME 36.6 Sec (25.0-35.0)
[2017-01-13] MEDS: DEXTROSE 5%-0.45% NACL 1,000 ML IV SCH ×2 (06:20→16:42)
[2017-01-13 06:28] LABS: ALBUMIN 2.8 g/dl (3.3-4.9); BILIRUBIN,INDIRECT 0.1 mg/dl (0-1.1); BILIRUBIN,TOTAL 0.1 mg/dl (0.2-1.3); CALCIUM 8.9 mg/dl (8.4-10.2); CREATININE 0.59 mg/dl (0.44-1.00); POTASSIUM 3.5 mmol/L (3.5-5.1); TOTAL PROTEIN 5.6 g/dl (6.1-8.1)
[2017-01-13] MEDS ORDERED: CEFAZOLIN 1 GM INJ ONE (07:00)
[2017-01-13] MEDS: INSULIN ASPART [NOVOLOG] 3 ML PEN SC SCH ×4 (08:00→20:23)
--- NOTE | 2017-01-13 08:30 | HPN ---
Date/Time of Note Date/Time of Note DATE: 01/13/17 TIME: 08:30 Interval H&P Admission Note Pt. seen H&P reviewed: No system changes WILD DUARTE MD Jan 13, 2017 08:30
[2017-01-13] MEDS: MYCOPHENOLATE 250 MG CAP PO SCH ×2 (08:44→20:25)
[2017-01-13] MEDS: FOLIC ACID 1 MG TAB PO SCH (08:44)
[2017-01-13] MEDS: DILTIAZEM (CD) 180 MG CAP PO SCH (08:44)
[2017-01-13] MEDS: CLOPIDOGREL 75 MG TAB PO SCH (08:45)
[2017-01-13] MEDS: BENAZEPRIL 10 MG TAB PO SCH (08:45)
[2017-01-13] MEDS: TACROLIMUS 0.5 MG CAP PO SCH ×2 (08:45→20:24)
[2017-01-13] MEDS: GABAPENTIN 100 MG CAP PO SCH ×3 (08:45→20:24)
[2017-01-13] MEDS: METOPROLOL 25 MG TAB PO SCH ×2 (08:45→20:24)
[2017-01-13] MEDS: ASPIRIN (EC) 81 MG TAB PO SCH (08:45)
[2017-01-13] MEDS: CHOLECALCIFEROL 1,000 UNIT TAB PO SCH (08:45)
[2017-01-13] MEDS ORDERED: ACETAMINOPHEN 650 MG SUPP PR ONE (12:30)
[2017-01-13] MEDS: ERTAPENEM SODIUM 1 GM in SOD CHLORIDE 0.9% 100 ML IVPB SCH (13:04)
--- NOTE | 2017-01-13 14:00 | PN ---
Date/Time of Note Date/Time of Note DATE: 01/13/17 TIME: 13:57 Assessment/Plan VTE Prophylaxis VTE Prophylaxis Intervention: LMWH Lines/Catheters IV [facility]ter Type (from [facility]): Peripheral IV Urinary Cath still in place: No Assessment/Plan Chief Complaint/Hosp Course Patient is awake, alert, pending Left AKA today. Assessment/Plan - Acute encephalopathy, resolved. CT brain is negative for any acute pathology , Dr. Bob, neurology is following. 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 Plan for left AKA patient condition improves by Dr. Valencia. Continue antibiotics per ID. - Diabetes mellitus type II. Continue Lantus and NovoLog. - History of kidney transplant in 2009, on immunosuppressive therapy. - Hypertension. 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 - Anemia of chronic kidney disease. Further recommendations based on clinical course. Plan of care discussed with Dr. Cohen Problems: Exam/Review of Systems Vital Signs Vitals Vital Signs Date Time Temp Pulse Resp B/P Pulse Ox O2 Delivery O2 Flow Rate FiO2 01/13/17 08:23 98.0 86 18 148/80 100 01/10/17 02:00 Room Air Intake and Output 01/12/17 01/12/17 01/13/17 15:00 23:00 07:00 Intake Total 1240 ml 1150 ml Balance 1240 ml 1150 ml Exam Constitutional: awake, alert Neck: supple Respiratory: clear to auscultation Cardiovascular: nl pulses Gastrointestinal: non-tender, soft Extremities: other (Bilateral feet gangrene) Results Result Diagram: 01/13/17 0428 01/13/17 0428 Results 24 hrs Laboratory Tests Test 01/12/17 16:41 01/12/17 20:45 01/13/17 04:28 01/13/17 08:24 Bedside Glucose 143 148 116 White Blood Count 6.9 Red Blood Count 3.21 L Hemoglobin 9.1 L Hematocrit 27.4 L Mean Corpuscular Volume 85.4 Mean Corpuscular Hemoglobin 28.3 L Mean Corpuscular Hemoglobin Concent 33.2 Red Cell Distribution Width 14.2 Platelet Count 243 Mean Platelet Volume 11.2 H Neutrophils % 72.7 Lymphocytes % 13.3 L Monocytes % 12.6 H Eosinophils % 1.0 Basophils % 0.1 Nucleated Red Blood Cells % 0.0 Neutrophils # 5.0 Lymphocytes # 0.9 Monocytes # 0.9 Eosinophils # 0.1 Basophils # 0.0 Nucleated Red Blood Cells # 0.0 Prothrombin Time 15.0 H Prothrombin Time Ratio 1.2 INR International Normalized Ratio 1.17 Activated Partial Thromboplast Time 36.6 H Sodium Level 135 Potassium Level 3.5 Chloride Level 105 Carbon Dioxide Level 26 Anion Gap 8 Blood Urea Nitrogen 10 # Creatinine 0.59 Glucose Level 91 Calcium Level 8.9 Total Bilirubin 0.1 L Direct Bilirubin 0.00 Indirect Bilirubin 0.1 Aspartate Amino Transf (AST/SGOT) 21 Alanine Aminotransferase (ALT/SGPT) 33 Alkaline Phosphatase 103 Total Protein 5.6 L Albumin 2.8 L Globulin 2.80 Albumin/Globulin Ratio 1.00 Test 01/13/17 12:21 Bedside Glucose 127 Medications Medications Current Medications Aspirin (Halfprin) 81 mg DAILY PO Last administered on 01/12/17 09:07; Admin Dose 81 MG; Start 12/27/16 at 09:00 Benazepril HCl (Lotensin) 10 mg DAILY PO Last administered on 01/12/17 09:07; Admin Dose 10 MG; Start 12/27/16 at 09:00 Clopidogrel Bisulfate (plaVIX) 75 mg DAILY PO Last administered on 01/12/17 09 :07; Admin Dose 75 MG; Start 12/27/16 at 09:00 Diltiazem HCl (Cardizem Cd) 180 mg DAILY PO Last administered on 01/12/17 09: 08; Admin Dose 180 MG; Start 12/26/16 at 14:00 Famotidine (Pepcid) 40 mg HS PO Last administered on 01/12/17 20:51; Admin Dose 40 MG; Start 12/26/16 at 21:00 Folic Acid (Folic Acid) 1 mg DAILY PO Last administered on 01/12/17 09:08; Admin Dose 1 MG; Start 12/27/16 at 09:00 Gabapentin (Neurontin) 100 mg TID PO Last administered on 01/12/17 20:51; Admin Dose 100 MG; Start 12/26/16 at 21:00 Metoprolol Tartrate (Lopressor) 75 mg BID PO Last administered on 01/12/17 20: 51; Admin Dose 75 MG; Start 12/26/16 at 21:00 Mycophenolate Mofetil (Cellcept) 1,000 mg BID PO Last administered on 20:50; Admin Dose 1,000 MG; Start 12/26/16 at 21:00 Pantoprazole (Protonix Tab) 40 mg DAILY@06 PO Last administered on 01/12/17 06 :19; Admin Dose 40 MG; Start 12/27/16 at 06:00 Diagnostic Test (Pha) (Accu-Chek) 1 ea 02 XX ; Start 12/27/16 at 02:00 Miscellaneous Information 1 ea NOTE XX ; Start 12/26/16 at 14:30 Glucose (Glutose) 15 gm Q15M PRN PO DECREASED GLUCOSE; Start 12/26/16 at 14:30 Glucose (Glutose) 22.5 gm Q15M PRN PO DECREASED GLUCOSE; Start 12/26/16 at 14:30 Dextrose (D50w Syringe) 25 ml Q15M PRN IV DECREASED GLUCOSE; Start 12/26/16 at 14:30 Dextrose (D50w Syringe) 50 ml Q15M PRN IV DECREASED GLUCOSE; Start 12/26/16 at 14:30 Glucagon (Glucagen) 1 mg Q15M PRN IM DECREASED GLUCOSE; Start 12/26/16 at 14:30 Glucose (Glutose) 15 gm Q15M PRN BUCCAL DECREASED GLUCOSE; Start 12/26/16 at 14: 30 Acetaminophen/ Hydrocodone Bitart ([place] (5/325)) 1 tab Q8 PO Last administered on 01/12/17 22:04; Admin Dose 1 TAB; Start 12/26/16 at 22:00 Cholecalciferol (Vitamin D) 1,000 unit DAILY PO Last administered on 01/12/17 09:08; Admin Dose 1,000 UNIT; Start 12/28/16 at 09:00 Insulin Glargine (Lantus) 7 unit DAILY@20 SC Last administered on 01/12/17 20: 49; Admin Dose 7 UNIT; Start 12/29/16 at 20:00 Ondansetron HCl 4 mg 4 mg Q6H PRN IV NAUSEA AND/OR VOMITING Last administered on 01/01/17 10:00; Admin Dose 4 MG; Start 01/01/17 at 10:00 Ertapenem 1 gm/ Sodium Chloride 100 ml @ 200 mls/hr Q24H IVPB Last administered on 01/13/17 13:04; Admin Dose 200 MLS/HR; Start 01/06/17 at 14:30 Sodium Chloride (NS) 1,000 ml @ 75 mls/hr [id number] IV Last administered on 01/12 06:18; Admin Dose 75 MLS/HR; Start 01/06/17 at 18:00; Status Future Hold Haloperidol (Haldol) 2 mg Q4H PRN IM AGITATION/ANXIETY Last administered on 22:46; Admin Dose 2 MG; Start 01/08/17 at 01:30 Acetaminophen (Tylenol Tab) 650 mg Q6H PRN PO PAIN AND OR ELEVATED TEMP Last administered on 01/10/17 10:48; Admin Dose 650 MG; Start 01/08/17 at 22:30 Quetiapine Fumarate (Seroquel) 25 mg QHS PRN PO agitation/hallucinations Last administered on 01/09/17 22:15; Admin Dose 25 MG; Start 01/09/17 at 21:00 Morphine Sulfate (morphine) 2 mg Q8H PRN IV PAIN LEVEL 6-10; Start 01/11/17 at 14:00 Tacrolimus 2 mg 2 mg Q12 PO Last administered on 01/12/17 20:51; Admin Dose 2 MG; Start 01/11/17 at 21:00 Dextrose/Sodium Chloride (D5-1/2ns) 1,000 ml @ 75 mls/hr [id number] IV Last administered on 01/13/17 06:20; Admin Dose 75 MLS/HR; Start 01/12/17 at 15:00 LES GILLILAND Jan 13, 2017 14:00
--- NOTE | 2017-01-13 17:35 | PN ---
DATE: 01/13/2017 SUBJECTIVE DATA: No events overnight. The patient is awake, looks comfortable. No fevers. LABORATORY AND DIAGNOSTIC DATA: WBC 6.9, no shift, no bands. BUN 10, creatinine 0.59. PHYSICAL EXAMINATION: GENERAL: His is a cachectic, well-developed elderly woman, who is awake, in no distress. HEENT: Head atraumatic, normocephalic. Sclerae anicteric. Buccal mucosa pink. NECK: Supple. CHEST: Chest rise symmetrical. Breath sounds clear. HEART: S1, S2. ABDOMEN: Soft, bowel sounds present. EXTREMITIES: With bilateral lower extremities. Gangrenous changes. ASSESSMENT: 1. Bilateral lower extremities gangrene, status post multiple revascularization procedures, failed. 2. Resolving encephalopathy. 3. History of kidney transplant, on immunosuppressive therapy. 4. Diabetes. 5. Cachexia. PLAN: 1. The patient remains stable. 2. Pending above knee amputation. Dictated By: Brittany De NP /santiago/scott /Document#: [id number]
[2017-01-13] MEDS ORDERED: MIDAZOLAM 1 MG/ML 2 ML INJ ONE (17:37)
[2017-01-13] MEDS ORDERED: PROPOFOL 20 ML ONE (17:37)
[2017-01-13] MEDS ORDERED: LIDOCAINE 2% (SDV) 5 ML INJ ONE (17:37)
[2017-01-13] MEDS ORDERED: ROPIVACAINE 0.5 % 30 ML VIAL ONE (17:38)
[2017-01-13] MEDS ORDERED: PHENYLephrine (100 MCG/ML) 5ML SYG ONE ×2 (17:47→18:25)
[2017-01-13] MEDS ORDERED: POLYMYXIN/BACITRACIN 1L IRRIG ONE (17:48)
[2017-01-13] MEDS ORDERED: BUPIVACAINE 0.5%/EPI (SDV) 30 ML INJ ONE (17:48)
[2017-01-13] MEDS ORDERED: BUPIVACAINE 0.5% (SDV) 30 ML INJ ONE (17:49)
[2017-01-13] MEDS ORDERED: FENTAnyl 50 MCG/ML VIAL ONE (17:58)
[2017-01-13] MEDS ORDERED: THROMBIN 5000 UNIT VIAL ONE (18:07)
[2017-01-13] MEDS ORDERED: SURGIFOAM POWDER 1 GM KIT ONE (18:07)
[2017-01-13] MEDS ORDERED: ONDANSETRON 4 MG INJ ONE (18:13)
[2017-01-13] MEDS ORDERED: METOCLOPRAMIDE 10 MG INJ ONE (18:13)
[2017-01-13] MEDS ORDERED: HEMOSTATIC MATRIX SYG ZFS ONE (18:21)
[2017-01-13] MEDS ORDERED: LABETALOL HCL 20MG INJ IV PRN (18:30)
[2017-01-13] MEDS ORDERED: HYDROmorphONE (0.2 MG/ML) 10ML SYG IV PRN (18:30)
[2017-01-13] MEDS ORDERED: MEPERIDINE 25 MG INJ IV PRN (18:30)
[2017-01-13] MEDS ORDERED: hydrALAzine 20 MG INJ IV PRN (18:30)
[2017-01-13] MEDS ORDERED: FENTAnyl 50 MCG/ML VIAL IV PRN (18:30)
[2017-01-13] MEDS ORDERED: ONDANSETRON 4 MG INJ IV PRN (18:30)
[2017-01-13] MEDS ORDERED: DIPHENHYDRAMINE 50 MG INJ IV PRN (18:30)
[2017-01-13] MEDS ORDERED: PROCHLORPERAZINE 10 MG INJ IV PRN (18:30)
--- NOTE | 2017-01-13 18:43 | CONS ---
Date/Time of Note Date/Time of Note DATE: 01/13/17 TIME: 18:43 Assessment/Plan Assessment/Plan Additional Assessment/Plan 1. 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 2. h/o donor kidney transplant in 2009 at [facility], currently on immunosuppression with Prograf, CellCept 4. 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 History of hypertension. 6. History of diabetes mellitus. 7. History of previous left upper extremity arteriovenous fistula. 8. Hyponatremia due to hypovolemic hyponatremia Plan: continue Current immunosuppression Prograf and cellcept, Cr normal, plan for left AKA as per - possible plan for OR today -CT chest+ abd+pelvis with and without contrast negative for mass/LAD/Malignancy IV abx as per ID will follow up Consultation Date/Type/Reason Admit Date/Time Dec 26, 2016 at 13:22 Initial Consult Date 12/27/16 Type of Consultation: NEPHROLOGY Referring Provider: LES GILLILAND Exam/Review of Systems Vital Signs Vitals Vital Signs Date Time Temp Pulse Resp B/P Pulse Ox O2 Delivery O2 Flow Rate FiO2 01/13/17 18:42 98.9 01/13/17 15:08 86 18 129/69 100 01/10/17 02:00 Room Air Intake and Output 01/12/17 01/12/17 01/13/17 15:00 23:00 07:00 Intake Total 1240 ml 1150 ml Balance 1240 ml 1150 ml Exam Constitutional: alert, oriented Psych: no complaints Head: normocephalic ENMT: nl external ears & nose Neck: non-tender, supple Respiratory: clear to auscultation, normal air movement Cardiovascular: nl pulses, regular rate and rhythm Gastrointestinal: non-tender, soft Musculoskeletal: other (LE gangrene ) Results Result Diagram: 01/13/178 01/13/17427 Results 24 hrs Laboratory Tests Test 01/12/17 20:45 01/13/17 04:28 01/13/17 08:24 01/13/17 12:21 Bedside Glucose 148 116 127 White Blood Count 6.9 Red Blood Count 3.21 L Hemoglobin 9.1 L Hematocrit 27.4 L Mean Corpuscular Volume 85.4 Mean Corpuscular Hemoglobin 28.3 L Mean Corpuscular Hemoglobin Concent 33.2 Red Cell Distribution Width 14.2 Platelet Count 243 Mean Platelet Volume 11.2 H Neutrophils % 72.7 Lymphocytes % 13.3 L Monocytes % 12.6 H Eosinophils % 1.0 Basophils % 0.1 Nucleated Red Blood Cells % 0.0 Neutrophils # 5.0 Lymphocytes # 0.9 Monocytes # 0.9 Eosinophils # 0.1 Basophils # 0.0 Nucleated Red Blood Cells # 0.0 Prothrombin Time 15.0 H Prothrombin Time Ratio 1.2 INR International Normalized Ratio 1.17 Activated Partial Thromboplast Time 36.6 H Sodium Level 135 Potassium Level 3.5 Chloride Level 105 Carbon Dioxide Level 26 Anion Gap 8 Blood Urea Nitrogen 10 # Creatinine 0.59 Glucose Level 91 Calcium Level 8.9 Total Bilirubin 0.1 L Direct Bilirubin 0.00 Indirect Bilirubin 0.1 Aspartate Amino Transf (AST/SGOT) 21 Alanine Aminotransferase (ALT/SGPT) 33 Alkaline Phosphatase 103 Total Protein 5.6 L Albumin 2.8 L Globulin 2.80 Albumin/Globulin Ratio 1.00 Test 01/13/17 17:30 Bedside Glucose 104 Medications Medications Current Medications Aspirin (Halfprin) 81 mg DAILY PO Last administered on 01/12/17 09:07; Admin Dose 81 MG; Start 12/27/16 at 09:00 Benazepril HCl (Lotensin) 10 mg DAILY PO Last administered on 01/12/17 09:07; Admin Dose 10 MG; Start 12/27/16 at 09:00 Clopidogrel Bisulfate (plaVIX) 75 mg DAILY PO Last administered on 01/12/17 09 :07; Admin Dose 75 MG; Start 12/27/16 at 09:00 Diltiazem HCl (Cardizem Cd) 180 mg DAILY PO Last administered on 01/12/17 09: 08; Admin Dose 180 MG; Start 12/26/16 at 14:00 Famotidine (Pepcid) 40 mg HS PO Last administered on 01/12/17 20:51; Admin Dose 40 MG; Start 12/26/16 at 21:00 Folic Acid (Folic Acid) 1 mg DAILY PO Last administered on 01/12/17 09:08; Admin Dose 1 MG; Start 12/27/16 at 09:00 Gabapentin (Neurontin) 100 mg TID PO Last administered on 01/12/17 20:51; Admin Dose 100 MG; Start 12/26/16 at 21:00 Metoprolol Tartrate (Lopressor) 75 mg BID PO Last administered on 01/12/17 20: 51; Admin Dose 75 MG; Start 12/26/16 at 21:00 Mycophenolate Mofetil (Cellcept) 1,000 mg BID PO Last administered on 20:50; Admin Dose 1,000 MG; Start 12/26/16 at 21:00 Pantoprazole (Protonix Tab) 40 mg DAILY@06 PO Last administered on 01/12/17 06 :19; Admin Dose 40 MG; Start 12/27/16 at 06:00 Diagnostic Test (Pha) (Accu-Chek) 1 ea 02 XX ; Start 12/27/16 at 02:00 Miscellaneous Information 1 ea NOTE XX ; Start 12/26/16 at 14:30 Glucose (Glutose) 15 gm Q15M PRN PO DECREASED GLUCOSE; Start 12/26/16 at 14:30 Glucose (Glutose) 22.5 gm Q15M PRN PO DECREASED GLUCOSE; Start 12/26/16 at 14:30 Dextrose (D50w Syringe) 25 ml Q15M PRN IV DECREASED GLUCOSE; Start 12/26/16 at 14:30 Dextrose (D50w Syringe) 50 ml Q15M PRN IV DECREASED GLUCOSE; Start 12/26/16 at 14:30 Glucagon (Glucagen) 1 mg Q15M PRN IM DECREASED GLUCOSE; Start 12/26/16 at 14:30 Glucose (Glutose) 15 gm Q15M PRN BUCCAL DECREASED GLUCOSE; Start 12/26/16 at 14: 30 Acetaminophen/ Hydrocodone Bitart ([place] (5/325)) 1 tab Q8 PO Last administered on 01/12/17 22:04; Admin Dose 1 TAB; Start 12/26/16 at 22:00 Cholecalciferol (Vitamin D) 1,000 unit DAILY PO Last administered on 01/12/17 09:08; Admin Dose 1,000 UNIT; Start 12/28/16 at 09:00 Insulin Glargine (Lantus) 7 unit DAILY@20 SC Last administered on 01/12/17 20: 49; Admin Dose 7 UNIT; Start 12/29/16 at 20:00 Ondansetron HCl 4 mg 4 mg Q6H PRN IV NAUSEA AND/OR VOMITING Last administered on 01/01/17 10:00; Admin Dose 4 MG; Start 01/01/17 at 10:00 Ertapenem 1 gm/ Sodium Chloride 100 ml @ 200 mls/hr Q24H IVPB Last administered on 01/13/17 13:04; Admin Dose 200 MLS/HR; Start 01/06/17 at 14:30 Sodium Chloride (NS) 1,000 ml @ 75 mls/hr [id number] IV Last administered on 01/12 06:18; Admin Dose 75 MLS/HR; Start 01/06/17 at 18:00; Status Future Hold Haloperidol (Haldol) 2 mg Q4H PRN IM AGITATION/ANXIETY Last administered on 22:46; Admin Dose 2 MG; Start 01/08/17 at 01:30 Acetaminophen (Tylenol Tab) 650 mg Q6H PRN PO PAIN AND OR ELEVATED TEMP Last administered on 01/10/17 10:48; Admin Dose 650 MG; Start 01/08/17 at 22:30 Quetiapine Fumarate (Seroquel) 25 mg QHS PRN PO agitation/hallucinations Last administered on 01/09/17 22:15; Admin Dose 25 MG; Start 01/09/17 at 21:00 Morphine Sulfate (morphine) 2 mg Q8H PRN IV PAIN LEVEL 6-10; Start 01/11/17 at 14:00 Tacrolimus 2 mg 2 mg Q12 PO Last administered on 01/12/17 20:51; Admin Dose 2 MG; Start 01/11/17 at 21:00 Dextrose/Sodium Chloride (D5-1/2ns) 1,000 ml @ 75 mls/hr [id number] IV Last administered on 01/13/17 06:20; Admin Dose 75 MLS/HR; Start 01/12/17 at 15:00 RAMON KEMP MD Jan 13, 2017 18:43
--- NOTE | 2017-01-13 18:44 | OPR ---
Date/Time of Note Date/Time of Note DATE: 01/13/17 TIME: 18:41 Operative Report Free Text/Dictation DATE OF OPERATION: 01/13/2017 SURGEON: Aung Duarte MD PREOPERATIVE DIAGNOSIS: Left Lower Extremity critical limb ischemia and gangrene POSTOPERATIVE DIAGNOSIS: same ANESTHESIA: LMA BLOOD LOSS: 25ml COMPLICATIONS: None. INDICATIONS: This is an 61 female whom had presented with bilateral lower extremity ischemia with tissue loss no popliteal and pedal pulses. Patient has been limited with ambulation and development of gangrene despite multiple interventions for limb salvage. Risks and benefits were discussed with patient and family and not limited to , IA, stroke, pneumonia, hematoma, infection , revision of amputation, bleeding. PROCEDURE: 1. Left above knee amputation DESCRIPTION OF THE PROCEDURE: The patient was brought to the operating room and positioned in the supine position on the operating room table. The lower extremity was prepped and draped in usual sterile fashion. The preoperative antibiotics were given. Anesthesia was initiated and patient tolerated well. Moreira catheter was placed. The correct site was marked and confirmed. Time-out was performed. Anterior and posterior skin flaps were outlined with a marking pen 10 cm proximal to the knee joint. This incision was then performed and deepened through serpiginous tissue into the muscular fascia was identified. The greater saphenous vein was identified and ligated with a 3-0 silk ties and divided. Muscle groups over the anterior and medial thigh were divided with electrocautery at the same level of the skin incision. The neurovascular bundle was identified in the medial aspect of the thigh. The popliteal artery and veins were isolated and suture ligated with 3-0 Vicryl suture. The sciatic nerve was pulled and ligated with a 3-0 Vicryl suture tied and divided. The posterior thigh muscles were then divided with electrocautery. Once the muscle groups were circumferentially divided the periosteum was incised and elevated approximately 5 cm proximally off the femur. The femur was divided with electric saw. The proximal end of the transected femur was smoothed with a file. The amputation stump was irrigated copiously with antibiotic solution. Hemostasis was secured. The periosteum was closed with a interrupted 2-0 Vicryl suture over the transected femur. The fascia of the thigh muscles was also closed with interrupted 2-0 Vicryl suture. The dermal layer was approximated with interrupted 3-0 Vicryl sutures. Skin art were applied. Sterile dressing was applied with gauze and Kerlix and Kavon bandage. The patient on procedure well was taken to post anesthesia care unit in stable condition. All instrument needle and sponge counts were correct 2. Surgeon see signature line Anesthesia Type: MAC Estimated Blood Loss: 10 - 50 ml's Transfusion Required: no Specimens LLE Grafts/Implants: none Complications: no Pt Condition Post Procedure: stable Disposition: PACU AUNG DUARTE MD Jan 13, 2017 18:44
--- NOTE | 2017-01-13 18:52 | CONS ---
Date/Time of Note Date/Time of Note DATE: 01/13/17 TIME: 18:51 Assessment/Plan Assessment/Plan Chief Complaint/Hosp Course IMP: 1.Itc-uy-[id number] test 10/2016 with no ischemia/only scar/NL EF. Negative trop x 3. Patient is ok to proceed to OR at moderate risk without further noninvasive evaluation on current medications 2.HTN-labile but reasonable control 3.PAD with bilateral gangrene 4.DM 5.Anemia 6. Encephalopathy Recc: -Continuer asa/plavix -Cointinue benazepril/metoprolol -Local wound care -Continue abx's and f/u cx data -TO OR today for amputation Problems: Consultation Date/Type/Reason Admit Date/Time Dec 26, 2016 at 13:22 Initial Consult Date 12/27/16 Type of Consultation: cardiology Reason for Consultation HTN Referring Provider: LES GILLILAND Exam/Review of Systems Vital Signs Vitals Vital Signs Date Time Temp Pulse Resp B/P Pulse Ox O2 Delivery O2 Flow Rate FiO2 01/13/17 18:43 86 17 117/65 100 Nasal Cannula 2.0 01/13/17 18:42 98.9 Intake and Output 01/12/17 01/12/17 01/13/17 15:00 23:00 07:00 Intake Total 1240 ml 1150 ml Balance 1240 ml 1150 ml Exam Review of Systems: CONSTITUTIONAL: No fevers, chills. PULMONARY: No sob CARDIOVASCULAR: No chest pain/palpitations GASTROINTESTINAL: No nausea/vomiting. GENITOURINARY: No hematuria/dysuria. MUSCULOSKELETAL: No myagias/arthalgias. PSYCHIATRIC: The patient denies depression. NEUROLOGIC: No weakness Constitutional: alert Psych: no complaints Head: normocephalic ENMT: mucosa pink and moist Neck: jvd (9 cm water), supple Respiratory: clear to auscultation Cardiovascular: regular rate and rhythm Gastrointestinal: non-tender, soft Musculoskeletal: muscle tone (normal) Extremities: other (gangrenous changes of foot) Neurological: other (No focal deficits) Results Result Diagram: 01/13/17 0428 01/13/17 0428 Results 24 hrs Laboratory Tests Test 01/12/17 20:45 01/13/17 04:28 01/13/17 08:24 01/13/17 12:21 Bedside Glucose 148 116 127 White Blood Count 6.9 Red Blood Count 3.21 L Hemoglobin 9.1 L Hematocrit 27.4 L Mean Corpuscular Volume 85.4 Mean Corpuscular Hemoglobin 28.3 L Mean Corpuscular Hemoglobin Concent 33.2 Red Cell Distribution Width 14.2 Platelet Count 243 Mean Platelet Volume 11.2 H Neutrophils % 72.7 Lymphocytes % 13.3 L Monocytes % 12.6 H Eosinophils % 1.0 Basophils % 0.1 Nucleated Red Blood Cells % 0.0 Neutrophils # 5.0 Lymphocytes # 0.9 Monocytes # 0.9 Eosinophils # 0.1 Basophils # 0.0 Nucleated Red Blood Cells # 0.0 Prothrombin Time 15.0 H Prothrombin Time Ratio 1.2 INR International Normalized Ratio 1.17 Activated Partial Thromboplast Time 36.6 H Sodium Level 135 Potassium Level 3.5 Chloride Level 105 Carbon Dioxide Level 26 Anion Gap 8 Blood Urea Nitrogen 10 # Creatinine 0.59 Glucose Level 91 Calcium Level 8.9 Total Bilirubin 0.1 L Direct Bilirubin 0.00 Indirect Bilirubin 0.1 Aspartate Amino Transf (AST/SGOT) 21 Alanine Aminotransferase (ALT/SGPT) 33 Alkaline Phosphatase 103 Total Protein 5.6 L Albumin 2.8 L Globulin 2.80 Albumin/Globulin Ratio 1.00 Test 01/13/17 17:30 Bedside Glucose 104 Medications Medications Current Medications Aspirin (Halfprin) 81 mg DAILY PO Last administered on 01/12/17 09:07; Admin Dose 81 MG; Start 12/27/16 at 09:00 Benazepril HCl (Lotensin) 10 mg DAILY PO Last administered on 01/12/17 09:07; Admin Dose 10 MG; Start 12/27/16 at 09:00 Clopidogrel Bisulfate (plaVIX) 75 mg DAILY PO Last administered on 01/12/17 09 :07; Admin Dose 75 MG; Start 12/27/16 at 09:00 Diltiazem HCl (Cardizem Cd) 180 mg DAILY PO Last administered on 01/12/17 09: 08; Admin Dose 180 MG; Start 12/26/16 at 14:00 Famotidine (Pepcid) 40 mg HS PO Last administered on 01/12/17 20:51; Admin Dose 40 MG; Start 12/26/16 at 21:00 Folic Acid (Folic Acid) 1 mg DAILY PO Last administered on 01/12/17 09:08; Admin Dose 1 MG; Start 12/27/16 at 09:00 Gabapentin (Neurontin) 100 mg TID PO Last administered on 01/12/17 20:51; Admin Dose 100 MG; Start 12/26/16 at 21:00 Metoprolol Tartrate (Lopressor) 75 mg BID PO Last administered on 01/12/17 20: 51; Admin Dose 75 MG; Start 12/26/16 at 21:00 Mycophenolate Mofetil (Cellcept) 1,000 mg BID PO Last administered on 20:50; Admin Dose 1,000 MG; Start 12/26/16 at 21:00 Pantoprazole (Protonix Tab) 40 mg DAILY@06 PO Last administered on 01/12/17 06 :19; Admin Dose 40 MG; Start 12/27/16 at 06:00 Diagnostic Test (Pha) (Accu-Chek) 1 ea 02 XX ; Start 12/27/16 at 02:00 Miscellaneous Information 1 ea NOTE XX ; Start 12/26/16 at 14:30 Glucose (Glutose) 15 gm Q15M PRN PO DECREASED GLUCOSE; Start 12/26/16 at 14:30 Glucose (Glutose) 22.5 gm Q15M PRN PO DECREASED GLUCOSE; Start 12/26/16 at 14:30 Dextrose (D50w Syringe) 25 ml Q15M PRN IV DECREASED GLUCOSE; Start 12/26/16 at 14:30 Dextrose (D50w Syringe) 50 ml Q15M PRN IV DECREASED GLUCOSE; Start 12/26/16 at 14:30 Glucagon (Glucagen) 1 mg Q15M PRN IM DECREASED GLUCOSE; Start 12/26/16 at 14:30 Glucose (Glutose) 15 gm Q15M PRN BUCCAL DECREASED GLUCOSE; Start 12/26/16 at 14: 30 Acetaminophen/ Hydrocodone Bitart ([place] (5/325)) 1 tab Q8 PO Last administered on 01/12/17 22:04; Admin Dose 1 TAB; Start 12/26/16 at 22:00 Cholecalciferol (Vitamin D) 1,000 unit DAILY PO Last administered on 01/12/17 09:08; Admin Dose 1,000 UNIT; Start 12/28/16 at 09:00 Insulin Glargine (Lantus) 7 unit DAILY@20 SC Last administered on 01/12/17 20: 49; Admin Dose 7 UNIT; Start 12/29/16 at 20:00 Ondansetron HCl 4 mg 4 mg Q6H PRN IV NAUSEA AND/OR VOMITING Last administered on 01/01/17 10:00; Admin Dose 4 MG; Start 01/01/17 at 10:00 Ertapenem 1 gm/ Sodium Chloride 100 ml @ 200 mls/hr Q24H IVPB Last administered on 01/13/17 13:04; Admin Dose 200 MLS/HR; Start 01/06/17 at 14:30 Sodium Chloride (NS) 1,000 ml @ 75 mls/hr [id number] IV Last administered on 01/12 06:18; Admin Dose 75 MLS/HR; Start 01/06/17 at 18:00; Status Future Hold Haloperidol (Haldol) 2 mg Q4H PRN IM AGITATION/ANXIETY Last administered on 22:46; Admin Dose 2 MG; Start 01/08/17 at 01:30 Acetaminophen (Tylenol Tab) 650 mg Q6H PRN PO PAIN AND OR ELEVATED TEMP Last administered on 01/10/17 10:48; Admin Dose 650 MG; Start 01/08/17 at 22:30 Quetiapine Fumarate (Seroquel) 25 mg QHS PRN PO agitation/hallucinations Last administered on 01/09/17 22:15; Admin Dose 25 MG; Start 01/09/17 at 21:00 Morphine Sulfate (morphine) 2 mg Q8H PRN IV PAIN LEVEL 6-10; Start 01/11/17 at 14:00 Tacrolimus 2 mg 2 mg Q12 PO Last administered on 01/12/17 20:51; Admin Dose 2 MG; Start 01/11/17 at 21:00 Dextrose/Sodium Chloride (D5-1/2ns) 1,000 ml @ 75 mls/hr [id number] IV Last administered on 01/13/17 06:20; Admin Dose 75 MLS/HR; Start 01/12/17 at 15:00 TIMOTHY CORTES Jan 13, 2017 18:52
[2017-01-13] MEDS: FAMOTIDINE 20 MG TAB PO SCH (20:24)
[2017-01-13] MEDS: INSULIN GLARGINE [LANtus] 3 ML PEN SC SCH (20:26)
[2017-01-13] MEDS: morphine 2 MG INJ IV PRN (20:42)
[2017-01-14] VITALS (8 sets, daily range): BP systolic 120–191; BP diastolic 61–93; PULSE 85–105; RESP 18–24
[2017-01-14] MEDS: ACCU-CHEK XX SCH (02:00)
[2017-01-14] MEDS: ACETAMINOPHEN 325 MG TAB PO PRN ×2 (02:24→19:41)
[2017-01-14] MEDS: DEXTROSE 5%-0.45% NACL 1,000 ML IV SCH (02:42)
[2017-01-14] MEDS: morphine 2 MG INJ IV PRN ×2 (04:44→19:41)
[2017-01-14] MEDS: PANTOPRAZOLE (EC) 40 MG TAB PO SCH (05:26)
[2017-01-14] MEDS: HYDROCODONE/APAP (5/325) TAB PO SCH ×3 (06:03→22:07)
[2017-01-14 06:31] LABS: BASOPHILS % 0.1 % (0.0-2.0); EOSINOPHILS % 0.1 % (0.0-7.0); HEMATOCRIT 27.6 % (37.0-47.0); HEMOGLOBIN 8.7 g/dl (12.0-16.0); LYMPHOCYTES # 0.6 10^3/ul (0.8-2.9); LYMPHOCYTES % 4.5 % (15.0-51.0); MEAN CORPUSCULAR HEMOGLOBIN 27.4 pg (29.0-33.0); MEAN CORPUSCULAR HGB CONC 31.5 g/dl (32.0-37.0); MEAN CORPUSCULAR VOLUME 87.1 fl (82.0-101.0); MEAN PLATELET VOLUME 11.5 fl (7.4-10.4); MONOCYTE # 1.1 10^3/ul (0.3-0.9); MONOCYTES % 7.6 % (0.0-11.0); NEUTROPHIL # 12.1 10^3/ul (1.6-7.5); NEUTROPHILS % 87.3 % (39.0-77.0); PLATELET COUNT 242 10^3/UL (140-415); RED BLOOD COUNT 3.17 10^6/ul (4.20-5.40); RED CELL DISTRIBUTION WIDTH 14.4 % (11.5-14.5); WHITE BLOOD COUNT 13.9 10^3/ul (4.8-10.8)
[2017-01-14] MEDS ORDERED: hydrALAzine 20 MG INJ IV PRN (07:00)
[2017-01-14 07:17] LABS: CALCIUM 8.2 mg/dl (8.4-10.2); CREATININE 0.55 mg/dl (0.44-1.00); POTASSIUM 3.7 mmol/L (3.5-5.1)
[2017-01-14] MEDS: GABAPENTIN 100 MG CAP PO SCH ×3 (08:14→20:38)
[2017-01-14] MEDS: TACROLIMUS 0.5 MG CAP PO SCH ×2 (08:14→20:38)
[2017-01-14] MEDS: FOLIC ACID 1 MG TAB PO SCH (08:14)
[2017-01-14] MEDS: ASPIRIN (EC) 81 MG TAB PO SCH (08:15)
[2017-01-14] MEDS: DILTIAZEM (CD) 180 MG CAP PO SCH (08:15)
[2017-01-14] MEDS: CHOLECALCIFEROL 1,000 UNIT TAB PO SCH (08:15)
[2017-01-14] MEDS: CLOPIDOGREL 75 MG TAB PO SCH (08:16)
[2017-01-14] MEDS: MYCOPHENOLATE 250 MG CAP PO SCH ×2 (08:16→20:38)
[2017-01-14] MEDS: INSULIN ASPART [NOVOLOG] 3 ML PEN SC SCH ×4 (08:18→20:37)
[2017-01-14] MEDS: METOPROLOL 25 MG TAB PO SCH ×2 (08:19→20:38)
[2017-01-14] MEDS: BENAZEPRIL 10 MG TAB PO SCH (08:20)
--- NOTE | 2017-01-14 10:40 | CONS ---
Date/Time of Note Date/Time of Note DATE: 01/14/17 TIME: 10:39 Assessment/Plan Assessment/Plan Additional Assessment/Plan 1.Bgn-si-tkgobl test 10/2016 with no ischemia/only scar/NL EF. Negative trop x 3. Patient is ok to proceed to OR at moderate risk without further noninvasive evaluation on current medications - amputation per vascular team 2.HTN-labile but reasonable control - stable overall, will adjust as needed 3.PAD with bilateral gangrene - amputation now 4.DM- on meds, keep euglycemic 5.Anemia 6. Encephalopathy Consultation Date/Type/Reason Admit Date/Time Dec 26, 2016 at 13:22 Initial Consult Date 12/27/16 Type of Consultation: cardiology Referring Provider: LES GILLILAND 24 HR Interval Summary Free Text/Dictation Stable overnight - no CP - con't MED RX ROS: No fever, no chills, no nausea, no vomiting, no diarrhea/constipation No recent weight changes No chest pain, no PND, no orthopnea No dizziness, blurred vision No thirst, no heat or cold intolerance Exam/Review of Systems Vital Signs Vitals Vital Signs Date Time Temp Pulse Resp B/P Pulse Ox O2 Delivery O2 Flow Rate FiO2 01/14/17 08:55 99.1 100 24 120/61 100 01/13/17 19:25 Nasal Cannula 2.0 Intake and Output 01/13/17 01/13/17 01/14/17 15:00 23:00 07:00 Intake Total 100 ml 1120 ml 925 ml Output Total 20 ml Balance 100 ml 1100 ml 925 ml Exam General: WN/WD/NAD, AOx 2-3 HEENT: Unicetric/atraumatic/EOMI (follow commands) NECK: JVD elevated, no thyromegaly Lymph: no lymphadenopathy HEART: regular with no S3, II/ systolic murmur at apex LUNGS: Coarse sounds ABD: soft, NT, ND, +BS : Intact Neuro: non focal SKIN: chronic changes EXT: bandages Results Result Diagram: 01/14/17 0501/14/17 0526 Results 24 hrs Laboratory Tests Test 01/13/17 12:21 01/13/17 17:30 01/13/17 20:21 01/14/17 05:26 Bedside Glucose 127 104 118 Sodium Level 128 L Potassium Level 3.7 Chloride Level 97 Carbon Dioxide Level 25 Anion Gap 10 Blood Urea Nitrogen 6 L Creatinine 0.55 Glucose Level 178 Calcium Level 8.2 L Test 01/14/17 05:27 01/14/17 08:11 White Blood Count 13.9 #H Red Blood Count 3.17 L Hemoglobin 8.7 L Hematocrit 27.6 L Mean Corpuscular Volume 87.1 Mean Corpuscular Hemoglobin 27.4 L Mean Corpuscular Hemoglobin Concent 31.5 L Red Cell Distribution Width 14.4 Platelet Count 242 Mean Platelet Volume 11.5 H Neutrophils % 87.3 H Lymphocytes % 4.5 L Monocytes % 7.6 Eosinophils % 0.1 Basophils % 0.1 Nucleated Red Blood Cells % 0.0 Neutrophils # 12.1 H Lymphocytes # 0.6 L Monocytes # 1.1 H Eosinophils # 0.0 Basophils # 0.0 Nucleated Red Blood Cells # 0.0 Bedside Glucose 198 Medications Medications Current Medications Aspirin (Halfprin) 81 mg DAILY PO Last administered on 01/14/17 08:15; Admin Dose 81 MG; Start 12/27/16 at 09:00 Benazepril HCl (Lotensin) 10 mg DAILY PO Last administered on 01/14/17 08:20; Admin Dose 10 MG; Start 12/27/16 at 09:00 Clopidogrel Bisulfate (plaVIX) 75 mg DAILY PO Last administered on 01/14/17 08 :16; Admin Dose 75 MG; Start 12/27/16 at 09:00 Diltiazem HCl (Cardizem Cd) 180 mg DAILY PO Last administered on 01/14/17 08: 15; Admin Dose 180 MG; Start 12/26/16 at 14:00 Famotidine (Pepcid) 40 mg HS PO Last administered on 01/13/17 20:24; Admin Dose 40 MG; Start 12/26/16 at 21:00 Folic Acid (Folic Acid) 1 mg DAILY PO Last administered on 01/14/17 08:14; Admin Dose 1 MG; Start 12/27/16 at 09:00 Gabapentin (Neurontin) 100 mg TID PO Last administered on 01/14/17 08:14; Admin Dose 100 MG; Start 12/26/16 at 21:00 Metoprolol Tartrate (Lopressor) 75 mg BID PO Last administered on 01/14/17 08: 19; Admin Dose 75 MG; Start 12/26/16 at 21:00 Mycophenolate Mofetil (Cellcept) 1,000 mg BID PO Last administered on 08:16; Admin Dose 1,000 MG; Start 12/26/16 at 21:00 Pantoprazole (Protonix Tab) 40 mg DAILY@06 PO Last administered on 01/14/17 05 :26; Admin Dose 40 MG; Start 12/27/16 at 06:00 Diagnostic Test (Pha) (Accu-Chek) 1 ea 02 XX ; Start 12/27/16 at 02:00 Miscellaneous Information 1 ea NOTE XX ; Start 12/26/16 at 14:30 Glucose (Glutose) 15 gm Q15M PRN PO DECREASED GLUCOSE; Start 12/26/16 at 14:30 Glucose (Glutose) 22.5 gm Q15M PRN PO DECREASED GLUCOSE; Start 12/26/16 at 14:30 Dextrose (D50w Syringe) 25 ml Q15M PRN IV DECREASED GLUCOSE; Start 12/26/16 at 14:30 Dextrose (D50w Syringe) 50 ml Q15M PRN IV DECREASED GLUCOSE; Start 12/26/16 at 14:30 Glucagon (Glucagen) 1 mg Q15M PRN IM DECREASED GLUCOSE; Start 12/26/16 at 14:30 Glucose (Glutose) 15 gm Q15M PRN BUCCAL DECREASED GLUCOSE; Start 12/26/16 at 14: 30 Acetaminophen/ Hydrocodone Bitart ([place] (5/325)) 1 tab Q8 PO Last administered on 01/14/17 06:03; Admin Dose 1 TAB; Start 12/26/16 at 22:00 Cholecalciferol (Vitamin D) 1,000 unit DAILY PO Last administered on 01/14/17 08:15; Admin Dose 1,000 UNIT; Start 12/28/16 at 09:00 Insulin Glargine (Lantus) 7 unit DAILY@20 SC Last administered on 01/13/17 20: 26; Admin Dose 7 UNIT; Start 12/29/16 at 20:00 Ondansetron HCl 4 mg 4 mg Q6H PRN IV NAUSEA AND/OR VOMITING Last administered on 01/01/17 10:00; Admin Dose 4 MG; Start 01/01/17 at 10:00 Ertapenem 1 gm/ Sodium Chloride 100 ml @ 200 mls/hr Q24H IVPB Last administered on 01/13/17 13:04; Admin Dose 200 MLS/HR; Start 01/06/17 at 14:30 Sodium Chloride (NS) 1,000 ml @ 75 mls/hr [id number] IV Last administered on 01/12 06:18; Admin Dose 75 MLS/HR; Start 01/06/17 at 18:00; Status Future Hold Haloperidol (Haldol) 2 mg Q4H PRN IM AGITATION/ANXIETY Last administered on 22:46; Admin Dose 2 MG; Start 01/08/17 at 01:30 Acetaminophen (Tylenol Tab) 650 mg Q6H PRN PO PAIN AND OR ELEVATED TEMP Last administered on 01/14/17 02:24; Admin Dose 650 MG; Start 01/08/17 at 22:30 Quetiapine Fumarate (Seroquel) 25 mg QHS PRN PO agitation/hallucinations Last administered on 01/09/17 22:15; Admin Dose 25 MG; Start 01/09/17 at 21:00 Morphine Sulfate (morphine) 2 mg Q8H PRN IV PAIN LEVEL 6-10 Last administered on 01/14/17 04:44; Admin Dose 2 MG; Start 01/11/17 at 14:00 Tacrolimus 2 mg 2 mg Q12 PO Last administered on 01/14/17 08:14; Admin Dose 2 MG; Start 01/11/17 at 21:00 Dextrose/Sodium Chloride (D5-1/2ns) 1,000 ml @ 75 mls/hr [id number] IV Last administered on 01/14/17 02:42; Admin Dose 75 MLS/HR; Start 01/12/17 at 15:00 Clonidine (Catapres) 0.1 mg Q6H PRN PO hypertension Last administered on 02:41; Admin Dose 0.1 MG; Start 01/14/17 at 02:30 Hydralazine HCl (Apresoline) 25 mg Q6H PRN IV ELEVATED SYSTOLIC BP Last administered on 01/14/17 07:04; Admin Dose 25 MG; Start 01/14/17 at 07:00 MIRELLA MOSER MD Jan 14, 2017 10:40
--- NOTE | 2017-01-14 12:07 | CONS ---
Date/Time of Note Date/Time of Note DATE: 01/14/17 TIME: 12:04 Consult Date/Type/Reason Admit Date/Time Dec 26, 2016 at 13:22 Initial Consult Date 01/09/17 Type of Consultation: Neurology Reason for Consultation encephalopathy Ordering Provider: LES GILLILAND Subjective POD #1, less confused more alert and awake able to follow commands family at bedside Objective Vital Signs Date Time Temp Pulse Resp B/P Pulse Ox O2 Delivery O2 Flow Rate FiO2 01/14/17 10:00 98.3 01/14/17 08:55 100 24 120/61 100 01/13/17 19:25 Nasal Cannula 2.0 Intake and Output 01/13/17 01/13/17 01/14/17 15:00 23:00 07:00 Intake Total 100 ml 1120 ml 925 ml Output Total 20 ml Balance 100 ml 1100 ml 925 ml Exam awake and alert oriented to hospital not to date able to follow simple commands CN II-XII intact Motor Bilateral UE anti-gravity tone wnl no tremors, LE amputation Results/Medications Result Diagram: 01/14/17 0527 01/14/17 0526 Results 24 hrs Laboratory Tests Test 01/13/17 12:21 01/13/17 17:30 01/13/17 20:21 01/14/17 05:26 Bedside Glucose 127 104 118 Sodium Level 128 L Potassium Level 3.7 Chloride Level 97 Carbon Dioxide Level 25 Anion Gap 10 Blood Urea Nitrogen 6 L Creatinine 0.55 Glucose Level 178 Calcium Level 8.2 L Test 01/14/17 05:27 01/14/17 08:11 01/14/17 11:58 White Blood Count 13.9 #H Red Blood Count 3.17 L Hemoglobin 8.7 L Hematocrit 27.6 L Mean Corpuscular Volume 87.1 Mean Corpuscular Hemoglobin 27.4 L Mean Corpuscular Hemoglobin Concent 31.5 L Red Cell Distribution Width 14.4 Platelet Count 242 Mean Platelet Volume 11.5 H Neutrophils % 87.3 H Lymphocytes % 4.5 L Monocytes % 7.6 Eosinophils % 0.1 Basophils % 0.1 Nucleated Red Blood Cells % 0.0 Neutrophils # 12.1 H Lymphocytes # 0.6 L Monocytes # 1.1 H Eosinophils # 0.0 Basophils # 0.0 Nucleated Red Blood Cells # 0.0 Bedside Glucose 198 140 Medications Current Medications Aspirin (Halfprin) 81 mg DAILY PO Last administered on 01/14/17 08:15; Admin Dose 81 MG; Start 12/27/16 at 09:00 Benazepril HCl (Lotensin) 10 mg DAILY PO Last administered on 01/14/17 08:20; Admin Dose 10 MG; Start 12/27/16 at 09:00 Clopidogrel Bisulfate (plaVIX) 75 mg DAILY PO Last administered on 01/14/17 08 :16; Admin Dose 75 MG; Start 12/27/16 at 09:00 Diltiazem HCl (Cardizem Cd) 180 mg DAILY PO Last administered on 01/14/17 08: 15; Admin Dose 180 MG; Start 12/26/16 at 14:00 Famotidine (Pepcid) 40 mg HS PO Last administered on 01/13/17 20:24; Admin Dose 40 MG; Start 12/26/16 at 21:00 Folic Acid (Folic Acid) 1 mg DAILY PO Last administered on 01/14/17 08:14; Admin Dose 1 MG; Start 12/27/16 at 09:00 Gabapentin (Neurontin) 100 mg TID PO Last administered on 01/14/17 11:58; Admin Dose 100 MG; Start 12/26/16 at 21:00 Metoprolol Tartrate (Lopressor) 75 mg BID PO Last administered on 01/14/17 08: 19; Admin Dose 75 MG; Start 12/26/16 at 21:00 Mycophenolate Mofetil (Cellcept) 1,000 mg BID PO Last administered on 08:16; Admin Dose 1,000 MG; Start 12/26/16 at 21:00 Pantoprazole (Protonix Tab) 40 mg DAILY@06 PO Last administered on 01/14/17 05 :26; Admin Dose 40 MG; Start 12/27/16 at 06:00 Diagnostic Test (Pha) (Accu-Chek) 1 ea 02 XX ; Start 12/27/16 at 02:00 Miscellaneous Information 1 ea NOTE XX ; Start 12/26/16 at 14:30 Glucose (Glutose) 15 gm Q15M PRN PO DECREASED GLUCOSE; Start 12/26/16 at 14:30 Glucose (Glutose) 22.5 gm Q15M PRN PO DECREASED GLUCOSE; Start 12/26/16 at 14:30 Dextrose (D50w Syringe) 25 ml Q15M PRN IV DECREASED GLUCOSE; Start 12/26/16 at 14:30 Dextrose (D50w Syringe) 50 ml Q15M PRN IV DECREASED GLUCOSE; Start 12/26/16 at 14:30 Glucagon (Glucagen) 1 mg Q15M PRN IM DECREASED GLUCOSE; Start 12/26/16 at 14:30 Glucose (Glutose) 15 gm Q15M PRN BUCCAL DECREASED GLUCOSE; Start 12/26/16 at 14: 30 Acetaminophen/ Hydrocodone Bitart ([place] (5/325)) 1 tab Q8 PO Last administered on 01/14/17 06:03; Admin Dose 1 TAB; Start 12/26/16 at 22:00 Cholecalciferol (Vitamin D) 1,000 unit DAILY PO Last administered on 01/14/17 08:15; Admin Dose 1,000 UNIT; Start 12/28/16 at 09:00 Insulin Glargine (Lantus) 7 unit DAILY@20 SC Last administered on 01/13/17 20: 26; Admin Dose 7 UNIT; Start 12/29/16 at 20:00 Ondansetron HCl 4 mg 4 mg Q6H PRN IV NAUSEA AND/OR VOMITING Last administered on 01/01/17 10:00; Admin Dose 4 MG; Start 01/01/17 at 10:00 Ertapenem 1 gm/ Sodium Chloride 100 ml @ 200 mls/hr Q24H IVPB Last administered on 01/13/17 13:04; Admin Dose 200 MLS/HR; Start 01/06/17 at 14:30 Sodium Chloride (NS) 1,000 ml @ 75 mls/hr [id number] IV Last administered on 01/12 06:18; Admin Dose 75 MLS/HR; Start 01/06/17 at 18:00; Status Future Hold Haloperidol (Haldol) 2 mg Q4H PRN IM AGITATION/ANXIETY Last administered on 22:46; Admin Dose 2 MG; Start 01/08/17 at 01:30 Acetaminophen (Tylenol Tab) 650 mg Q6H PRN PO PAIN AND OR ELEVATED TEMP Last administered on 01/14/17 02:24; Admin Dose 650 MG; Start 9/20/17 at 22:30 Quetiapine Fumarate (Seroquel) 25 mg QHS PRN PO agitation/hallucinations Last administered on 01/09/17 22:15; Admin Dose 25 MG; Start 01/09/17 at 21:00 Morphine Sulfate (morphine) 2 mg Q8H PRN IV PAIN LEVEL 6-10 Last administered on 01/14/17 04:44; Admin Dose 2 MG; Start 01/11/17 at 14:00 Tacrolimus 2 mg 2 mg Q12 PO Last administered on 01/14/17 08:14; Admin Dose 2 MG; Start 01/11/17 at 21:00 Dextrose/Sodium Chloride (D5-1/2ns) 1,000 ml @ 75 mls/hr [id number] IV Last administered on 01/14/17 02:42; Admin Dose 75 MLS/HR; Start 01/12/17 at 15:00 Clonidine (Catapres) 0.1 mg Q6H PRN PO hypertension Last administered on 02:41; Admin Dose 0.1 MG; Start 01/14/17 at 02:30 Hydralazine HCl (Apresoline) 25 mg Q6H PRN IV ELEVATED SYSTOLIC BP Last administered on 01/14/17 07:04; Admin Dose 25 MG; Start 01/14/17 at 07:00 Assessment/Plan Chief Complaint/Hosp Course 61 yo female with history of advanced peripheral arterial disease, bilateral feet gangrene with e.coli ESBL, history of kidney transplant remains on immunosuppressive therapy, DM, HTN admitted for AKA with hallucinations, delirium. MRI with marked volume loss. Likely underlying cognitive process as well. Recommendations: -avoid overly sedating medications -low dose seroquel prn -suspect underlying dementia as well likely vascular dementia may pursue further evaluation as outpatient will sign off, please reconsult as needed Problems: BRITNEY VICTORIA MD Jan 14, 2017 12:07
--- NOTE | 2017-01-14 13:03 | CONS ---
Date/Time of Note Date/Time of Note DATE: 01/14/17 TIME: 12:57 Assessment/Plan Assessment/Plan Additional Assessment/Plan 1. 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 2. h/o donor kidney transplant in 2009 at [facility], currently on immunosuppression with Prograf, CellCept 4. 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 History of hypertension. 6. History of diabetes mellitus. 7. History of previous left upper extremity arteriovenous fistula. 8. Hyponatremia due to hypovolemic hyponatremia post op Plan: continue Current immunosuppression Prograf and cellcept, Cr normal, s/p Left AKA- Post op care as per surgery d/c IVF D51/2Ns due to drop in Na, will give NS at 75cc/hr x 2 liter then stop -CT chest+ abd+pelvis with and without contrast negative for mass/LAD/Malignancy IV abx as per ID will follow up Consultation Date/Type/Reason Admit Date/Time Dec 26, 2016 at 13:22 Initial Consult Date 12/27/16 Type of Consultation: NEPHROLOGY Referring Provider: LES GILLILAND 24 HR Interval Summary Free Text/Dictation s/p left above knee amputation, BP stable, afebrile, Na dropped to 128 Exam/Review of Systems Vital Signs Vitals Vital Signs Date Time Temp Pulse Resp B/P Pulse Ox O2 Delivery O2 Flow Rate FiO2 01/14/17 10:00 98.3 01/14/17 08:55 100 24 120/61 100 01/13/17 19:25 Nasal Cannula 2.0 Intake and Output 01/13/17 01/13/17 01/14/17 15:00 23:00 07:00 Intake Total 100 ml 1120 ml 925 ml Output Total 20 ml Balance 100 ml 1100 ml 925 ml Exam Constitutional: alert, oriented Psych: no complaints Head: normocephalic ENMT: nl external ears & nose Neck: non-tender, supple Respiratory: clear to auscultation, normal air movement Cardiovascular: nl pulses, regular rate and rhythm Gastrointestinal: non-tender, soft Musculoskeletal: other ( left Above knee amputation ) Results Result Diagram: 01/14/17 0527 01/14/17 05 Results 24 hrs Laboratory Tests Test 01/13/17 17:30 01/13/17 20:21 01/14/17 05:26 01/14/17 05:27 Bedside Glucose 104 118 Sodium Level 128 L Potassium Level 3.7 Chloride Level 97 Carbon Dioxide Level 25 Anion Gap 10 Blood Urea Nitrogen 6 L Creatinine 0.55 Glucose Level 178 Calcium Level 8.2 L White Blood Count 13.9 #H Red Blood Count 3.17 L Hemoglobin 8.7 L Hematocrit 27.6 L Mean Corpuscular Volume 87.1 Mean Corpuscular Hemoglobin 27.4 L Mean Corpuscular Hemoglobin Concent 31.5 L Red Cell Distribution Width 14.4 Platelet Count 242 Mean Platelet Volume 11.5 H Neutrophils % 87.3 H Lymphocytes % 4.5 L Monocytes % 7.6 Eosinophils % 0.1 Basophils % 0.1 Nucleated Red Blood Cells % 0.0 Neutrophils # 12.1 H Lymphocytes # 0.6 L Monocytes # 1.1 H Eosinophils # 0.0 Basophils # 0.0 Nucleated Red Blood Cells # 0.0 Test 01/14/17 08:11 01/14/17 11:58 Bedside Glucose 198 140 Medications Medications Current Medications Aspirin (Halfprin) 81 mg DAILY PO Last administered on 01/14/17 08:15; Admin Dose 81 MG; Start 12/27/16 at 09:00 Benazepril HCl (Lotensin) 10 mg DAILY PO Last administered on 01/14/17 08:20; Admin Dose 10 MG; Start 12/27/16 at 09:00 Clopidogrel Bisulfate (plaVIX) 75 mg DAILY PO Last administered on 01/14/17 08 :16; Admin Dose 75 MG; Start 12/27/16 at 09:00 Diltiazem HCl (Cardizem Cd) 180 mg DAILY PO Last administered on 01/14/17 08: 15; Admin Dose 180 MG; Start 12/26/16 at 14:00 Famotidine (Pepcid) 40 mg HS PO Last administered on 01/13/17 20:24; Admin Dose 40 MG; Start 12/26/16 at 21:00 Folic Acid (Folic Acid) 1 mg DAILY PO Last administered on 01/14/17 08:14; Admin Dose 1 MG; Start 12/27/16 at 09:00 Gabapentin (Neurontin) 100 mg TID PO Last administered on 01/14/17 11:58; Admin Dose 100 MG; Start 12/26/16 at 21:00 Metoprolol Tartrate (Lopressor) 75 mg BID PO Last administered on 01/14/17 08: 19; Admin Dose 75 MG; Start 12/26/16 at 21:00 Mycophenolate Mofetil (Cellcept) 1,000 mg BID PO Last administered on 08:16; Admin Dose 1,000 MG; Start 12/26/16 at 21:00 Pantoprazole (Protonix Tab) 40 mg DAILY@06 PO Last administered on 01/14/17 05 :26; Admin Dose 40 MG; Start 12/27/16 at 06:00 Diagnostic Test (Pha) (Accu-Chek) 1 ea 02 XX ; Start 12/27/16 at 02:00 Miscellaneous Information 1 ea NOTE XX ; Start 12/26/16 at 14:30 Glucose (Glutose) 15 gm Q15M PRN PO DECREASED GLUCOSE; Start 12/26/16 at 14:30 Glucose (Glutose) 22.5 gm Q15M PRN PO DECREASED GLUCOSE; Start 12/26/16 at 14:30 Dextrose (D50w Syringe) 25 ml Q15M PRN IV DECREASED GLUCOSE; Start 12/26/16 at 14:30 Dextrose (D50w Syringe) 50 ml Q15M PRN IV DECREASED GLUCOSE; Start 12/26/16 at 14:30 Glucagon (Glucagen) 1 mg Q15M PRN IM DECREASED GLUCOSE; Start 12/26/16 at 14:30 Glucose (Glutose) 15 gm Q15M PRN BUCCAL DECREASED GLUCOSE; Start 12/26/16 at 14: 30 Acetaminophen/ Hydrocodone Bitart ([place] (5/325)) 1 tab Q8 PO Last administered on 01/14/17 06:03; Admin Dose 1 TAB; Start 12/26/16 at 22:00 Cholecalciferol (Vitamin D) 1,000 unit DAILY PO Last administered on 01/14/17 08:15; Admin Dose 1,000 UNIT; Start 12/28/16 at 09:00 Insulin Glargine (Lantus) 7 unit DAILY@20 SC Last administered on 01/13/17 20: 26; Admin Dose 7 UNIT; Start 12/29/16 at 20:00 Ondansetron HCl 4 mg 4 mg Q6H PRN IV NAUSEA AND/OR VOMITING Last administered on 01/01/17 10:00; Admin Dose 4 MG; Start 01/01/17 at 10:00 Ertapenem 1 gm/ Sodium Chloride 100 ml @ 200 mls/hr Q24H IVPB Last administered on 01/13/17 13:04; Admin Dose 200 MLS/HR; Start 01/06/17 at 14:30 Sodium Chloride (NS) 1,000 ml @ 75 mls/hr [id number] IV Last administered on 01/12 06:18; Admin Dose 75 MLS/HR; Start 01/06/17 at 18:00; Status Future Hold Haloperidol (Haldol) 2 mg Q4H PRN IM AGITATION/ANXIETY Last administered on 22:46; Admin Dose 2 MG; Start 01/08/17 at 01:30 Acetaminophen (Tylenol Tab) 650 mg Q6H PRN PO PAIN AND OR ELEVATED TEMP Last administered on 01/14/17 02:24; Admin Dose 650 MG; Start 01/08/17 at 22:30 Quetiapine Fumarate (Seroquel) 25 mg QHS PRN PO agitation/hallucinations Last administered on 01/09/17 22:15; Admin Dose 25 MG; Start 01/09/17 at 21:00 Morphine Sulfate (morphine) 2 mg Q8H PRN IV PAIN LEVEL 6-10 Last administered on 01/14/17 04:44; Admin Dose 2 MG; Start 01/11/17 at 14:00 Tacrolimus 2 mg 2 mg Q12 PO Last administered on 01/14/17 08:14; Admin Dose 2 MG; Start 01/11/17 at 21:00 Dextrose/Sodium Chloride (D5-1/2ns) 1,000 ml @ 75 mls/hr [id number] IV Last administered on 01/14/17 02:42; Admin Dose 75 MLS/HR; Start 01/12/17 at 15:00 Clonidine (Catapres) 0.1 mg Q6H PRN PO hypertension Last administered on 02:41; Admin Dose 0.1 MG; Start 01/14/17 at 02:30 Hydralazine HCl (Apresoline) 25 mg Q6H PRN IV ELEVATED SYSTOLIC BP Last administered on 01/14/17t 07:04; Admin Dose 25 MG; Start 01/14/17 at 07:00 RAMON KEMP MD Jan 14, 2017 13:03
[2017-01-14] MEDS: ERTAPENEM SODIUM 1 GM in SOD CHLORIDE 0.9% 100 ML IVPB SCH (13:58)
[2017-01-14] MEDS: SOD CHLORIDE 0.9% 1,000 ML IV SCH (13:58)
--- NOTE | 2017-01-14 17:37 | PN ---
Date/Time of Note Date/Time of Note DATE: 01/14/17 TIME: 17:32 Assessment/Plan VTE Prophylaxis VTE Prophylaxis Intervention: SCD's Lines/Catheters IV Catheter Type (from [facility]): Peripheral IV Urinary Cath still in place: No Assessment/Plan Chief Complaint/Hosp Course Patient is resting comfortably, pain is well controlled, status post left AKA yesterday, hyponatremia, continue IV fluids per nephrology. Assessment/Plan - Acute encephalopathy, resolved. CT brain is negative for any acute pathology , Dr. Bob, neurology is following. 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 S/p left AKA 01/[address] Valencia, vascular surgery. - Diabetes mellitus type II. Continue Lantus and NovoLog. - History of kidney transplant in 2009, on immunosuppressive therapy. - Hypertension. 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 - Anemia of chronic kidney disease. Further recommendations based on clinical course. Plan of care discussed with Dr. Cohen Problems: Exam/Review of Systems Vital Signs Vitals Vital Signs Date Time Temp Pulse Resp B/P Pulse Ox O2 Delivery O2 Flow Rate FiO2 01/14/17 16:15 98.4 01/14/17 15:30 94 18 136/67 100 01/13/17 19:25 Nasal Cannula 2.0 Intake and Output 01/13/17 01/13/17 01/14/17 15:00 23:00 07:00 Intake Total 100 ml 1120 ml 925 ml Output Total 20 ml Balance 100 ml 1100 ml 925 ml Exam Constitutional: awake, alert Neck: supple Respiratory: clear to auscultation Cardiovascular: nl pulses Gastrointestinal: non-tender, soft Extremities: other (S/p L AKA) Results Result Diagram: 01/14/17 0527 01/14/17 0526 Results 24 hrs Laboratory Tests Test 01/13/17 20:21 01/14/17 05:26 01/14/17 05:27 01/14/17 08:11 Bedside Glucose 118 198 Sodium Level 128 L Potassium Level 3.7 Chloride Level 97 Carbon Dioxide Level 25 Anion Gap 10 Blood Urea Nitrogen 6 L Creatinine 0.55 Glucose Level 178 Calcium Level 8.2 L White Blood Count 13.9 #H Red Blood Count 3.17 L Hemoglobin 8.7 L Hematocrit 27.6 L Mean Corpuscular Volume 87.1 Mean Corpuscular Hemoglobin 27.4 L Mean Corpuscular Hemoglobin Concent 31.5 L Red Cell Distribution Width 14.4 Platelet Count 242 Mean Platelet Volume 11.5 H Neutrophils % 87.3 H Lymphocytes % 4.5 L Monocytes % 7.6 Eosinophils % 0.1 Basophils % 0.1 Nucleated Red Blood Cells % 0.0 Neutrophils # 12.1 H Lymphocytes # 0.6 L Monocytes # 1.1 H Eosinophils # 0.0 Basophils # 0.0 Nucleated Red Blood Cells # 0.0 Test 01/14/17 11:58 01/14/17 17:14 Bedside Glucose 140 149 Medications Medications Current Medications Aspirin (Halfprin) 81 mg DAILY PO Last administered on 01/14/17 08:15; Admin Dose 81 MG; Start 12/27/16 at 09:00 Benazepril HCl (Lotensin) 10 mg DAILY PO Last administered on 01/14/17 08:20; Admin Dose 10 MG; Start 12/27/16 at 09:00 Clopidogrel Bisulfate (plaVIX) 75 mg DAILY PO Last administered on 01/14/17 08 :16; Admin Dose 75 MG; Start 12/27/16 at 09:00 Diltiazem HCl (Cardizem Cd) 180 mg DAILY PO Last administered on 01/14/17 08: 15; Admin Dose 180 MG; Start 12/26/16 at 14:00 Famotidine (Pepcid) 40 mg HS PO Last administered on 01/13/17 20:24; Admin Dose 40 MG; Start 12/26/16 at 21:00 Folic Acid (Folic Acid) 1 mg DAILY PO Last administered on 01/14/17 08:14; Admin Dose 1 MG; Start 12/27/16 at 09:00 Gabapentin (Neurontin) 100 mg TID PO Last administered on 01/14/17 11:58; Admin Dose 100 MG; Start 12/26/16 at 21:00 Metoprolol Tartrate (Lopressor) 75 mg BID PO Last administered on 01/14/17 08: 19; Admin Dose 75 MG; Start 12/26/16 at 21:00 Mycophenolate Mofetil (Cellcept) 1,000 mg BID PO Last administered on 08:16; Admin Dose 1,000 MG; Start 12/26/16 at 21:00 Pantoprazole (Protonix Tab) 40 mg DAILY@06 PO Last administered on 01/14/17 05 :26; Admin Dose 40 MG; Start 12/27/16 at 06:00 Diagnostic Test (Pha) (Accu-Chek) 1 ea 02 XX ; Start 12/27/16 at 02:00 Miscellaneous Information 1 ea NOTE XX ; Start 12/26/16 at 14:30 Glucose (Glutose) 15 gm Q15M PRN PO DECREASED GLUCOSE; Start 12/26/16 at 14:30 Glucose (Glutose) 22.5 gm Q15M PRN PO DECREASED GLUCOSE; Start 12/26/16 at 14:30 Dextrose (D50w Syringe) 25 ml Q15M PRN IV DECREASED GLUCOSE; Start 12/26/16 at 14:30 Dextrose (D50w Syringe) 50 ml Q15M PRN IV DECREASED GLUCOSE; Start 12/26/16 at 14:30 Glucagon (Glucagen) 1 mg Q15M PRN IM DECREASED GLUCOSE; Start 12/26/16 at 14:30 Glucose (Glutose) 15 gm Q15M PRN BUCCAL DECREASED GLUCOSE; Start 12/26/16 at 14: 30 Acetaminophen/ Hydrocodone Bitart ([place] (5/325)) 1 tab Q8 PO Last administered on 01/14/17 06:03; Admin Dose 1 TAB; Start 12/26/16 at 22:00 Cholecalciferol (Vitamin D) 1,000 unit DAILY PO Last administered on 01/14/17 08:15; Admin Dose 1,000 UNIT; Start 12/28/16 at 09:00 Insulin Glargine (Lantus) 7 unit DAILY@20 SC Last administered on 01/13/17 20: 26; Admin Dose 7 UNIT; Start 12/29/16 at 20:00 Ondansetron HCl 4 mg 4 mg Q6H PRN IV NAUSEA AND/OR VOMITING Last administered on 01/01/17 10:00; Admin Dose 4 MG; Start 01/01/17 at 10:00 Ertapenem 1 gm/ Sodium Chloride 100 ml @ 200 mls/hr Q24H IVPB Last administered on 01/14/17 13:58; Admin Dose 200 MLS/HR; Start 01/06/17 at 14:30 Sodium Chloride (NS) 1,000 ml @ 75 mls/hr [id number] IV Last administered on 01/12 06:18; Admin Dose 75 MLS/HR; Start 01/06/17 at 18:00; Status Future Hold Haloperidol (Haldol) 2 mg Q4H PRN IM AGITATION/ANXIETY Last administered on 22:46; Admin Dose 2 MG; Start 01/08/17 at 01:30 Acetaminophen (Tylenol Tab) 650 mg Q6H PRN PO PAIN AND OR ELEVATED TEMP Last administered on 01/14/17 02:24; Admin Dose 650 MG; Start 01/08/17 at 22:30 Quetiapine Fumarate (Seroquel) 25 mg QHS PRN PO agitation/hallucinations Last administered on 01/09/17 22:15; Admin Dose 25 MG; Start 01/09/17 at 21:00 Morphine Sulfate (morphine) 2 mg Q8H PRN IV PAIN LEVEL 6-10 Last administered on 01/14/17 04:44; Admin Dose 2 MG; Start 01/11/17 at 14:00 Tacrolimus (Prograf) 2 mg Q12 PO Last administered on 01/14/17 08:14; Admin Dose 2 MG; Start 01/11/17 at 21:00 Clonidine (Catapres) 0.1 mg Q6H PRN PO hypertension Last administered on 02:41; Admin Dose 0.1 MG; Start 01/14/17 at 02:30 Hydralazine HCl 25 mg 25 mg Q6H PRN IV ELEVATED SYSTOLIC BP Last administered on 01/14/17 07:04; Admin Dose 25 MG; Start 01/14/17 at 07:00 Sodium Chloride (NS) 1,000 ml @ 75 mls/hr [id number] IV Last administered on 01/14 13:58; Admin Dose 75 MLS/HR; Start 01/14/17 at 13:00 LES GILLILAND Jan 14, 2017 17:37
[2017-01-14] MEDS: INSULIN GLARGINE [LANtus] 3 ML PEN SC SCH (20:36)
[2017-01-14] MEDS: FAMOTIDINE 20 MG TAB PO SCH (20:38)
--- NOTE | 2017-01-14 21:29 | CONS ---
Date/Time of Note Date/Time of Note DATE: 01/14/17 TIME: 21:28 Assessment/Plan Assessment/Plan Chief Complaint/Hosp Course SUBJECTIVE DATA: Sleeping, looks comfortable, no fevers MICROBIOLOGY: Right foot culture grew E. coli ESBL. ANTIMICROBIALS: Invanz. PHYSICAL EXAMINATION: This is a wasted fragile elderly woman who is awake in no distress. HEENT: Head atraumatic, normocephalic. Sclerae anicteric. NECK: Supple. CHEST: Rise symmetrical. Breath sounds clear. HEART: S1, S2. ABDOMEN: Soft, bowel sounds present. ASSESSMENT: 1. S/p leukocytosis with worsening mental status, so far no evidence of acute infection except in her feet 2. 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 Pt is s/p LAKA 2. Severe peripheral arterial disease. 3. History of kidney transplant, remains on immunosuppressive therapy. 4. Diabetes and hypertension. 5. Cachexia PLAN: Clinically stable, continue abx, f/u vascular recommendations, pain management Problems: Consultation Date/Type/Reason Admit Date/Time Dec 26, 2016 at 13:22 Initial Consult Date 12/27/16 Type of Consultation: ID Referring Provider: LES GILLILAND Exam/Review of Systems Vital Signs Vitals Vital Signs Date Time Temp Pulse Resp B/P Pulse Ox O2 Delivery O2 Flow Rate FiO2 01/14/17 19:35 102.5 96 18 133/64 96 01/13/17 19:25 Nasal Cannula 2.0 Intake and Output 01/13/17 01/13/17 01/14/17 15:00 23:00 07:00 Intake Total 100 ml 1120 ml 925 ml Output Total 20 ml Balance 100 ml 1100 ml 925 ml Results Result Diagram: 01/14/17 0527 01/14/17 0526 Results 24 hrs Laboratory Tests Test 01/14/17 05:26 01/14/17 05:27 01/14/17 08:11 01/14/17 11:58 Sodium Level 128 L Potassium Level 3.7 Chloride Level 97 Carbon Dioxide Level 25 Anion Gap 10 Blood Urea Nitrogen 6 L Creatinine 0.55 Glucose Level 178 Calcium Level 8.2 L White Blood Count 13.9 #H Red Blood Count 3.17 L Hemoglobin 8.7 L Hematocrit 27.6 L Mean Corpuscular Volume 87.1 Mean Corpuscular Hemoglobin 27.4 L Mean Corpuscular Hemoglobin Concent 31.5 L Red Cell Distribution Width 14.4 Platelet Count 242 Mean Platelet Volume 11.5 H Neutrophils % 87.3 H Lymphocytes % 4.5 L Monocytes % 7.6 Eosinophils % 0.1 Basophils % 0.1 Nucleated Red Blood Cells % 0.0 Neutrophils # 12.1 H Lymphocytes # 0.6 L Monocytes # 1.1 H Eosinophils # 0.0 Basophils # 0.0 Nucleated Red Blood Cells # 0.0 Bedside Glucose 198 140 Test 01/14/17 17:14 01/14/17 20:34 Bedside Glucose 149 161 Medications Medications Current Medications Aspirin (Halfprin) 81 mg DAILY PO Last administered on 01/14/17 08:15; Admin Dose 81 MG; Start 12/27/16 at 09:00 Benazepril HCl (Lotensin) 10 mg DAILY PO Last administered on 01/14/17 08:20; Admin Dose 10 MG; Start 12/27/16 at 09:00 Clopidogrel Bisulfate (plaVIX) 75 mg DAILY PO Last administered on 01/14/17 08 :16; Admin Dose 75 MG; Start 12/27/16 at 09:00 Diltiazem HCl (Cardizem Cd) 180 mg DAILY PO Last administered on 01/14/17 08: 15; Admin Dose 180 MG; Start 12/26/16 at 14:00 Famotidine (Pepcid) 40 mg HS PO Last administered on 01/14/17 20:38; Admin Dose 40 MG; Start 12/26/16 at 21:00 Folic Acid (Folic Acid) 1 mg DAILY PO Last administered on 01/14/17 08:14; Admin Dose 1 MG; Start 12/27/16 at 09:00 Gabapentin (Neurontin) 100 mg TID PO Last administered on 01/14/17 20:38; Admin Dose 100 MG; Start 12/26/16 at 21:00 Metoprolol Tartrate (Lopressor) 75 mg BID PO Last administered on 01/14/17 20: 38; Admin Dose 75 MG; Start 12/26/16 at 21:00 Mycophenolate Mofetil (Cellcept) 1,000 mg BID PO Last administered on 20:38; Admin Dose 1,000 MG; Start 12/26/16 at 21:00 Pantoprazole (Protonix Tab) 40 mg DAILY@06 PO Last administered on 01/14/17 05 :26; Admin Dose 40 MG; Start 12/27/16 at 06:00 Diagnostic Test (Pha) (Accu-Chek) 1 ea 02 XX ; Start 12/27/16 at 02:00 Miscellaneous Information 1 ea NOTE XX ; Start 12/26/16 at 14:30 Glucose (Glutose) 15 gm Q15M PRN PO DECREASED GLUCOSE; Start 12/26/16 at 14:30 Glucose (Glutose) 22.5 gm Q15M PRN PO DECREASED GLUCOSE; Start 12/26/16 at 14:30 Dextrose (D50w Syringe) 25 ml Q15M PRN IV DECREASED GLUCOSE; Start 12/26/16 at 14:30 Dextrose (D50w Syringe) 50 ml Q15M PRN IV DECREASED GLUCOSE; Start 12/26/16 at 14:30 Glucagon (Glucagen) 1 mg Q15M PRN IM DECREASED GLUCOSE; Start 12/26/16 at 14:30 Glucose (Glutose) 15 gm Q15M PRN BUCCAL DECREASED GLUCOSE; Start 12/26/16 at 14: 30 Acetaminophen/ Hydrocodone Bitart ([place] (5/325)) 1 tab Q8 PO Last administered on 01/14/17 06:03; Admin Dose 1 TAB; Start 12/26/16 at 22:00 Cholecalciferol (Vitamin D) 1,000 unit DAILY PO Last administered on 01/14/17 08:15; Admin Dose 1,000 UNIT; Start 12/28/16 at 09:00 Insulin Glargine (Lantus) 7 unit DAILY@20 SC Last administered on 01/14/17 20: 36; Admin Dose 7 UNIT; Start 12/29/16 at 20:00 Ondansetron HCl 4 mg 4 mg Q6H PRN IV NAUSEA AND/OR VOMITING Last administered on 01/01/17 10:00; Admin Dose 4 MG; Start 01/01/17 at 10:00 Ertapenem 1 gm/ Sodium Chloride 100 ml @ 200 mls/hr Q24H IVPB Last administered on 01/14/17 13:58; Admin Dose 200 MLS/HR; Start 01/06/17 at 14:30 Sodium Chloride (NS) 1,000 ml @ 75 mls/hr [id number] IV Last administered on 01/12 06:18; Admin Dose 75 MLS/HR; Start 01/06/17 at 18:00; Status Future Hold Haloperidol (Haldol) 2 mg Q4H PRN IM AGITATION/ANXIETY Last administered on 22:46; Admin Dose 2 MG; Start 01/08/17 at 01:30 Acetaminophen (Tylenol Tab) 650 mg Q6H PRN PO PAIN AND OR ELEVATED TEMP Last administered on 01/14/17 19:41; Admin Dose 650 MG; Start 01/08/17 at 22:30 Quetiapine Fumarate (Seroquel) 25 mg QHS PRN PO agitation/hallucinations Last administered on 01/09/17 22:15; Admin Dose 25 MG; Start 01/09/17 at 21:00 Morphine Sulfate (morphine) 2 mg Q8H PRN IV PAIN LEVEL 6-10 Last administered on 01/14/17 19:41; Admin Dose 2 MG; Start 01/11/17 at 14:00 Tacrolimus (Prograf) 2 mg Q12 PO Last administered on 01/14/17 20:38; Admin Dose 2 MG; Start 01/11/17 at 21:00 Clonidine (Catapres) 0.1 mg Q6H PRN PO hypertension Last administered on 02:41; Admin Dose 0.1 MG; Start 01/14/17 at 02:30 Hydralazine HCl 25 mg 25 mg Q6H PRN IV ELEVATED SYSTOLIC BP Last administered on 01/14/17 07:04; Admin Dose 25 MG; Start 01/14/17 at 07:00 Sodium Chloride (NS) 1,000 ml @ 75 mls/hr [id number] IV Last administered on 01/14 13:58; Admin Dose 75 MLS/HR; Start 01/14/17 at 13:00 JACQUES HUERTA NP Jan 14, 2017 21:29
[2017-01-15] VITALS (7 sets, daily range): BP systolic 86–131; BP diastolic 50–70; PULSE 66–69; RESP 18
[2017-01-15] MEDS: ACCU-CHEK XX SCH ×2 (02:00→20:39)
[2017-01-15] MEDS ORDERED: SOD CHLORIDE 0.9% 500 ML IV ONE (03:00)
[2017-01-15] MEDS: SOD CHLORIDE 0.9% 1,000 ML IV SCH ×2 (05:01→15:40)
[2017-01-15] MEDS: HYDROCODONE/APAP (5/325) TAB PO SCH ×3 (06:00→20:46)
[2017-01-15] MEDS: PANTOPRAZOLE (EC) 40 MG TAB PO SCH (06:10)
[2017-01-15 06:17] LABS: ABNORMAL IP MESSAGE 1; BASOPHILS % 0.1 % (0.0-2.0); EOSINOPHILS % 0.1 % (0.0-7.0); HEMATOCRIT 24.7 % (37.0-47.0); HEMOGLOBIN 8.1 g/dl (12.0-16.0); LYMPHOCYTES # 0.8 10^3/ul (0.8-2.9); LYMPHOCYTES % 4.1 % (15.0-51.0); MEAN CORPUSCULAR HEMOGLOBIN 27.8 pg (29.0-33.0); MEAN CORPUSCULAR HGB CONC 32.8 g/dl (32.0-37.0); MEAN CORPUSCULAR VOLUME 84.9 fl (82.0-101.0); MONOCYTE # 1.7 10^3/ul (0.3-0.9); MONOCYTES % 8.8 % (0.0-11.0); NEUTROPHIL # 17.1 10^3/ul (1.6-7.5); NEUTROPHILS % 86.1 % (39.0-77.0); PLATELET COUNT 212 10^3/UL (140-415); RED BLOOD COUNT 2.91 10^6/ul (4.20-5.40); RED CELL DISTRIBUTION WIDTH 14.1 % (11.5-14.5); WHITE BLOOD COUNT 19.9 10^3/ul (4.8-10.8)
[2017-01-15 06:18] LABS: POSITIVE DIFF @See below
[2017-01-15 06:56] LABS: CALCIUM 7.5 mg/dl (8.4-10.2); CREATININE 0.53 mg/dl (0.44-1.00); POTASSIUM 3.3 mmol/L (3.5-5.1)
[2017-01-15] MEDS: INSULIN ASPART [NOVOLOG] 3 ML PEN SC SCH ×4 (08:00→20:38)
[2017-01-15] MEDS: CHOLECALCIFEROL 1,000 UNIT TAB PO SCH (08:54)
[2017-01-15] MEDS: TACROLIMUS 0.5 MG CAP PO SCH ×2 (08:54→20:32)
[2017-01-15] MEDS: MYCOPHENOLATE 250 MG CAP PO SCH ×2 (08:54→20:38)
[2017-01-15] MEDS: BENAZEPRIL 10 MG TAB PO SCH (08:55)
[2017-01-15] MEDS: GABAPENTIN 100 MG CAP PO SCH ×3 (08:55→20:38)
[2017-01-15] MEDS: METOPROLOL 25 MG TAB PO SCH ×2 (08:55→20:36)
[2017-01-15] MEDS: DILTIAZEM (CD) 180 MG CAP PO SCH (08:56)
[2017-01-15] MEDS: ASPIRIN (EC) 81 MG TAB PO SCH (08:56)
[2017-01-15] MEDS: CLOPIDOGREL 75 MG TAB PO SCH (08:56)
[2017-01-15] MEDS: FOLIC ACID 1 MG TAB PO SCH (08:56)
[2017-01-15] MEDS: ONDANSETRON 4 MG INJ IV PRN (09:50)
[2017-01-15] MEDS: ACETAMINOPHEN 325 MG TAB PO PRN ×2 (10:04→22:51)
--- NOTE | 2017-01-15 10:04 | CONS ---
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 VS stable. Consultation Date/Type/Reason Admit Date/Time Dec 26, 2016 at 13:22 Initial Consult Date 12/27/16 Type of Consultation: ID Referring Provider: LES GILLILAND Exam/Review of Systems Vital Signs Vitals Vital Signs Date Time Temp Pulse Resp B/P Pulse Ox O2 Delivery O2 Flow Rate FiO2 01/15/17 08:00 97.8 78 18 131/70 96 01/13/17 19:25 Nasal Cannula 2.0 Intake and Output 01/14/17 01/14/17 01/15/17 15:00 23:00 07:00 Intake Total 450 ml 585 ml 1595 ml Balance 450 ml 585 ml 1595 ml Results Result Diagram: 01/15/17 0545 01/15/17 0545 Results 24 hrs Laboratory Tests Test 01/14/17 11:58 01/14/17 17:14 01/14/17 20:34 01/15/17 05:45 Bedside Glucose 140 149 161 White Blood Count 19.9 #H Red Blood Count 2.91 L Hemoglobin 8.1 L Hematocrit 24.7 L Mean Corpuscular Volume 84.9 Mean Corpuscular Hemoglobin 27.8 L Mean Corpuscular Hemoglobin Concent 32.8 Red Cell Distribution Width 14.1 Platelet Count 212 Mean Platelet Volume 11.0 H Neutrophils % 86.1 H Lymphocytes % 4.1 L Monocytes % 8.8 Eosinophils % 0.1 Basophils % 0.1 Nucleated Red Blood Cells % 0.0 Neutrophils # 17.1 H Lymphocytes # 0.8 Monocytes # 1.7 H Eosinophils # 0.0 Basophils # 0.0 Nucleated Red Blood Cells # 0.0 Sodium Level 121 L Potassium Level 3.3 L Chloride Level 95 L Carbon Dioxide Level 21 Anion Gap 8 Blood Urea Nitrogen 9 Creatinine 0.53 Glucose Level 75 # Calcium Level 7.5 L Test 01/15/17 08:46 Bedside Glucose 115 Medications Medications Current Medications Aspirin (Halfprin) 81 mg DAILY PO Last administered on 01/15/17 08:56; Admin Dose 81 MG; Start 12/27/16 at 09:00 Benazepril HCl (Lotensin) 10 mg DAILY PO Last administered on 01/15/17 08:55; Admin Dose 10 MG; Start 12/27/16 at 09:00 Clopidogrel Bisulfate (plaVIX) 75 mg DAILY PO Last administered on 01/15/17 08 :56; Admin Dose 75 MG; Start 12/27/16 at 09:00 Diltiazem HCl (Cardizem Cd) 180 mg DAILY PO Last administered on 01/15/17 08: 56; Admin Dose 180 MG; Start 12/26/16 at 14:00 Famotidine (Pepcid) 40 mg HS PO Last administered on 01/14/17 20:38; Admin Dose 40 MG; Start 12/26/16 at 21:00 Folic Acid (Folic Acid) 1 mg DAILY PO Last administered on 01/15/17 08:56; Admin Dose 1 MG; Start 12/27/16 at 09:00 Gabapentin (Neurontin) 100 mg TID PO Last administered on 01/15/17 08:55; Admin Dose 100 MG; Start 12/26/16 at 21:00 Metoprolol Tartrate (Lopressor) 75 mg BID PO Last administered on 01/15/17 08: 55; Admin Dose 75 MG; Start 12/26/16 at 21:00 Mycophenolate Mofetil (Cellcept) 1,000 mg BID PO Last administered on 08:54; Admin Dose 1,000 MG; Start 12/26/16 at 21:00 Pantoprazole (Protonix Tab) 40 mg DAILY@06 PO Last administered on 01/15/17 06 :10; Admin Dose 40 MG; Start 12/27/16 at 06:00 Diagnostic Test (Pha) (Accu-Chek) 1 ea 02 XX ; Start 12/27/16 at 02:00 Miscellaneous Information 1 ea NOTE XX ; Start 12/26/16 at 14:30 Glucose (Glutose) 15 gm Q15M PRN PO DECREASED GLUCOSE; Start 12/26/16 at 14:30 Glucose (Glutose) 22.5 gm Q15M PRN PO DECREASED GLUCOSE; Start 12/26/16 at 14:30 Dextrose (D50w Syringe) 25 ml Q15M PRN IV DECREASED GLUCOSE; Start 12/26/16 at 14:30 Dextrose (D50w Syringe) 50 ml Q15M PRN IV DECREASED GLUCOSE; Start 12/26/16 at 14:30 Glucagon (Glucagen) 1 mg Q15M PRN IM DECREASED GLUCOSE; Start 12/26/16 at 14:30 Glucose (Glutose) 15 gm Q15M PRN BUCCAL DECREASED GLUCOSE; Start 12/26/16 at 14: 30 Acetaminophen/ Hydrocodone Bitart ([place] (5/325)) 1 tab Q8 PO Last administered on 01/14/17 22:07; Admin Dose 1 TAB; Start 12/26/16 at 22:00 Cholecalciferol (Vitamin D) 1,000 unit DAILY PO Last administered on 01/15/17 08:54; Admin Dose 1,000 UNIT; Start 12/28/16 at 09:00 Insulin Glargine (Lantus) 7 unit DAILY@20 SC Last administered on 01/14/17 20: 36; Admin Dose 7 UNIT; Start 12/29/16 at 20:00 Ondansetron HCl 4 mg 4 mg Q6H PRN IV NAUSEA AND/OR VOMITING Last administered on 01/15/17 09:50; Admin Dose 4 MG; Start 01/01/17 at 10:00 Ertapenem 1 gm/ Sodium Chloride 100 ml @ 200 mls/hr Q24H IVPB Last administered on 01/14/17 13:58; Admin Dose 200 MLS/HR; Start 01/06/17 at 14:30 Sodium Chloride (NS) 1,000 ml @ 75 mls/hr [id number] IV Last administered on 01/12 06:18; Admin Dose 75 MLS/HR; Start 01/06/17 at 18:00; Status Future Hold Haloperidol (Haldol) 2 mg Q4H PRN IM AGITATION/ANXIETY Last administered on 22:46; Admin Dose 2 MG; Start 01/08/17 at 01:30 Acetaminophen (Tylenol Tab) 650 mg Q6H PRN PO PAIN AND OR ELEVATED TEMP Last administered on 01/14/17 19:41; Admin Dose 650 MG; Start 01/08/17 at 22:30 Quetiapine Fumarate (Seroquel) 25 mg QHS PRN PO agitation/hallucinations Last administered on 01/09/17 22:15; Admin Dose 25 MG; Start 01/09/17 at 21:00 Morphine Sulfate (morphine) 2 mg Q8H PRN IV PAIN LEVEL 6-10 Last administered on 01/14/17 19:41; Admin Dose 2 MG; Start 01/11/17 at 14:00 Tacrolimus (Prograf) 2 mg Q12 PO Last administered on 01/15/17 08:54; Admin Dose 2 MG; Start 01/11/17 at 21:00 Clonidine (Catapres) 0.1 mg Q6H PRN PO hypertension Last administered on 02:41; Admin Dose 0.1 MG; Start 01/14/17 at 02:30 Hydralazine HCl 25 mg 25 mg Q6H PRN IV ELEVATED SYSTOLIC BP Last administered on 01/14/17 07:04; Admin Dose 25 MG; Start 01/14/17 at 07:00 Sodium Chloride (NS) 1,000 ml @ 75 mls/hr [id number] IV Last administered on 01/15 05:01; Admin Dose 75 MLS/HR; Start 01/14/17 at 13:00 MIRELLA MOSER MD Jan 15, 2017 10:04
[2017-01-15] MEDS: morphine 2 MG INJ IV PRN ×2 (11:38→15:59)
--- NOTE | 2017-01-15 12:02 | PN ---
Date/Time of Note Date/Time of Note DATE: 01/15/17 TIME: 11:58 Assessment/Plan VTE Prophylaxis VTE Prophylaxis Intervention: SCD's Lines/Catheters IV C[facility]ter Type (from [facility]): Peripheral IV Urinary Cath still in place: No Assessment/Plan Chief Complaint/Hosp Course Patient complains of LLe pain, awake , alert, with increased leukocytosis and hyponatremia, no fever. S/p IV fluid bolus, continue to monitor. Assessment/Plan - Acute encephalopathy, resolved. CT brain is negative for any acute pathology. 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 S/p left AKA 01/[address] Valencia, vascular surgery. - Diabetes mellitus type II. Continue Lantus and NovoLog. - History of kidney transplant in 2009, on immunosuppressive therapy. - Hypertension. 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 - Anemia of chronic kidney disease. Further recommendations based on clinical course. Plan of care discussed with Dr. Cohen Problems: Exam/Review of Systems Vital Signs Vitals Vital Signs Date Time Temp Pulse Resp B/P Pulse Ox O2 Delivery O2 Flow Rate FiO2 01/15/17 08:00 97.8 78 18 131/70 96 01/13/17 19:25 Nasal Cannula 2.0 Intake and Output 01/14/17 01/14/17 01/15/17 15:00 23:00 07:00 Intake Total 450 ml 585 ml 1595 ml Balance 450 ml 585 ml 1595 ml Exam Constitutional: awake, alert Neck: supple Respiratory: clear to auscultation Cardiovascular: nl pulses Gastrointestinal: non-tender, soft Extremities: other (S/p LAKA) Results Result Diagram: 01/15/17 0545 01/15/17 0545 Results 24 hrs Laboratory Tests Test 01/14/17 17:14 01/14/17 20:34 01/15/17 05:45 01/15/17 08:46 Bedside Glucose 149 161 115 White Blood Count 19.9 #H Red Blood Count 2.91 L Hemoglobin 8.1 L Hematocrit 24.7 L Mean Corpuscular Volume 84.9 Mean Corpuscular Hemoglobin 27.8 L Mean Corpuscular Hemoglobin Concent 32.8 Red Cell Distribution Width 14.1 Platelet Count 212 Mean Platelet Volume 11.0 H Neutrophils % 86.1 H Lymphocytes % 4.1 L Monocytes % 8.8 Eosinophils % 0.1 Basophils % 0.1 Nucleated Red Blood Cells % 0.0 Neutrophils # 17.1 H Lymphocytes # 0.8 Monocytes # 1.7 H Eosinophils # 0.0 Basophils # 0.0 Nucleated Red Blood Cells # 0.0 Sodium Level 121 L Potassium Level 3.3 L Chloride Level 95 L Carbon Dioxide Level 21 Anion Gap 8 Blood Urea Nitrogen 9 Creatinine 0.53 Glucose Level 75 # Calcium Level 7.5 L Test 01/15/17 11:40 Bedside Glucose 96 Medications Medications Current Medications Aspirin (Halfprin) 81 mg DAILY PO Last administered on 01/15/17 08:56; Admin Dose 81 MG; Start 12/27/16 at 09:00 Benazepril HCl (Lotensin) 10 mg DAILY PO Last administered on 01/15/17 08:55; Admin Dose 10 MG; Start 12/27/16 at 09:00 Clopidogrel Bisulfate (plaVIX) 75 mg DAILY PO Last administered on 01/15/17 08 :56; Admin Dose 75 MG; Start 12/27/16 at 09:00 Diltiazem HCl (Cardizem Cd) 180 mg DAILY PO Last administered on 01/15/17 08: 56; Admin Dose 180 MG; Start 12/26/16 at 14:00 Famotidine (Pepcid) 40 mg HS PO Last administered on 01/14/17 20:38; Admin Dose 40 MG; Start 12/26/16 at 21:00 Folic Acid (Folic Acid) 1 mg DAILY PO Last administered on 01/15/17 08:56; Admin Dose 1 MG; Start 12/27/16 at 09:00 Gabapentin (Neurontin) 100 mg TID PO Last administered on 01/15/17 08:55; Admin Dose 100 MG; Start 12/26/16 at 21:00 Metoprolol Tartrate (Lopressor) 75 mg BID PO Last administered on 01/15/17 08: 55; Admin Dose 75 MG; Start 12/26/16 at 21:00 Mycophenolate Mofetil (Cellcept) 1,000 mg BID PO Last administered on 08:54; Admin Dose 1,000 MG; Start 12/26/16 at 21:00 Pantoprazole (Protonix Tab) 40 mg DAILY@06 PO Last administered on 01/15/17 06 :10; Admin Dose 40 MG; Start 12/27/16 at 06:00 Diagnostic Test (Pha) (Accu-Chek) 1 ea 02 XX ; Start 12/27/16 at 02:00 Miscellaneous Information 1 ea NOTE XX ; Start 12/26/16 at 14:30 Glucose (Glutose) 15 gm Q15M PRN PO DECREASED GLUCOSE; Start 12/26/16 at 14:30 Glucose (Glutose) 22.5 gm Q15M PRN PO DECREASED GLUCOSE; Start 12/26/16 at 14:30 Dextrose (D50w Syringe) 25 ml Q15M PRN IV DECREASED GLUCOSE; Start 12/26/16 at 14:30 Dextrose (D50w Syringe) 50 ml Q15M PRN IV DECREASED GLUCOSE; Start 12/26/16 at 14:30 Glucagon (Glucagen) 1 mg Q15M PRN IM DECREASED GLUCOSE; Start 12/26/16 at 14:30 Glucose (Glutose) 15 gm Q15M PRN BUCCAL DECREASED GLUCOSE; Start 12/26/16 at 14: 30 Acetaminophen/ Hydrocodone Bitart ([place] (5/325)) 1 tab Q8 PO Last administered on 01/14/17 22:07; Admin Dose 1 TAB; Start 12/26/16 at 22:00 Cholecalciferol (Vitamin D) 1,000 unit DAILY PO Last administered on 01/15/17 08:54; Admin Dose 1,000 UNIT; Start 12/28/16 at 09:00 Insulin Glargine (Lantus) 7 unit DAILY@20 SC Last administered on 01/14/17 20: 36; Admin Dose 7 UNIT; Start 12/29/16 at 20:00 Ondansetron HCl 4 mg 4 mg Q6H PRN IV NAUSEA AND/OR VOMITING Last administered on 01/15/17 09:50; Admin Dose 4 MG; Start 01/01/17 at 10:00 Ertapenem 1 gm/ Sodium Chloride 100 ml @ 200 mls/hr Q24H IVPB Last administered on 01/14/17 13:58; Admin Dose 200 MLS/HR; Start 01/06/17 at 14:30 Sodium Chloride (NS) 1,000 ml @ 75 mls/hr [id number] IV Last administered on 01/12 06:18; Admin Dose 75 MLS/HR; Start 01/06/17 at 18:00; Status Future Hold Haloperidol (Haldol) 2 mg Q4H PRN IM AGITATION/ANXIETY Last administered on 22:46; Admin Dose 2 MG; Start 01/08/17 at 01:30 Acetaminophen (Tylenol Tab) 650 mg Q6H PRN PO PAIN AND OR ELEVATED TEMP Last administered on 01/15/17 10:04; Admin Dose 650 MG; Start 01/08/17 at 22:30 Quetiapine Fumarate (Seroquel) 25 mg QHS PRN PO agitation/hallucinations Last administered on 01/09/17 22:15; Admin Dose 25 MG; Start 01/09/17 at 21:00 Morphine Sulfate (morphine) 2 mg Q8H PRN IV PAIN LEVEL 6-10 Last administered on 01/14/17 19:41; Admin Dose 2 MG; Start 01/11/17 at 14:00 Tacrolimus (Prograf) 2 mg Q12 PO Last administered on 01/15/17 08:54; Admin Dose 2 MG; Start 01/11/17 at 21:00 Clonidine (Catapres) 0.1 mg Q6H PRN PO hypertension Last administered on 02:41; Admin Dose 0.1 MG; Start 01/14/17 at 02:30 Hydralazine HCl 25 mg 25 mg Q6H PRN IV ELEVATED SYSTOLIC BP Last administered on 01/14/17 07:04; Admin Dose 25 MG; Start 01/14/17 at 07:00 Sodium Chloride (NS) 1,000 ml @ 75 mls/hr [id number] IV Last administered on 01/15 05:01; Admin Dose 75 MLS/HR; Start 01/14/17 at 13:00 LES GILLILAND Jan 15, 2017 12:02
--- NOTE | 2017-01-15 13:02 | CONS ---
Date/Time of Note Date/Time of Note DATE: 01/15/17 TIME: 13:00 Assessment/Plan Assessment/Plan Chief Complaint/Hosp Course SUBJECTIVE DATA: Awake complaining of pain no fevers overnight looks comfortable , no nausea vomiting or diarrhea Temperature 97.8 pulse 78 respirations 18 blood pressure 131/70 saturation 96 on room air WBC 19.9 H&H 8.1 and 24.7 platelets 212 neutrophils 86.1 BUN 9 creatinine 0.53 MICROBIOLOGY: Right foot culture grew E. coli ESBL. ANTIMICROBIALS: Invanz. PHYSICAL EXAMINATION: This is a wasted fragile elderly woman who is awake in no distress. HEENT: Head atraumatic, normocephalic. Sclerae anicteric. NECK: Supple. CHEST: Rise symmetrical. Breath sounds clear. HEART: S1, S2. ABDOMEN: Soft, bowel sounds present. ASSESSMENT: 1. SIRS with increased leukocytosis possibly reactive 2. 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 Pt is s/p LAKA 2. Severe peripheral arterial disease. 3. History of kidney transplant, remains on immunosuppressive therapy. 4. Diabetes and hypertension. 5. Cachexia PLAN: Clinically stable, continue abx, f/u vascular recommendations and pain management will order urine culture and chest x-ray today discussed with patient and RN Problems: Consultation Date/Type/Reason Admit Date/Time Dec 26, 2016 at 13:22 Initial Consult Date 12/27/16 Type of Consultation: ID Referring Provider: LES GILLILAND Exam/Review of Systems Vital Signs Vitals Vital Signs Date Time Temp Pulse Resp B/P Pulse Ox O2 Delivery O2 Flow Rate FiO2 01/15/17 08:00 97.8 78 18 131/70 96 01/13/17 19:25 Nasal Cannula 2.0 Intake and Output 01/14/17 01/14/17 01/15/17 15:00 23:00 07:00 Intake Total 450 ml 585 ml 1595 ml Balance 450 ml 585 ml 1595 ml Results Result Diagram: 01/15/17 0545 01/15/17 0545 Results 24 hrs Laboratory Tests Test 01/14/17 17:14 01/14/17 20:34 01/15/17 05:45 01/15/17 08:46 Bedside Glucose 149 161 115 White Blood Count 19.9 #H Red Blood Count 2.91 L Hemoglobin 8.1 L Hematocrit 24.7 L Mean Corpuscular Volume 84.9 Mean Corpuscular Hemoglobin 27.8 L Mean Corpuscular Hemoglobin Concent 32.8 Red Cell Distribution Width 14.1 Platelet Count 212 Mean Platelet Volume 11.0 H Neutrophils % 86.1 H Lymphocytes % 4.1 L Monocytes % 8.8 Eosinophils % 0.1 Basophils % 0.1 Nucleated Red Blood Cells % 0.0 Neutrophils # 17.1 H Lymphocytes # 0.8 Monocytes # 1.7 H Eosinophils # 0.0 Basophils # 0.0 Nucleated Red Blood Cells # 0.0 Sodium Level 121 L Potassium Level 3.3 L Chloride Level 95 L Carbon Dioxide Level 21 Anion Gap 8 Blood Urea Nitrogen 9 Creatinine 0.53 Glucose Level 75 # Calcium Level 7.5 L Test 01/15/17 11:40 Bedside Glucose 96 Medications Medications Current Medications Aspirin (Halfprin) 81 mg DAILY PO Last administered on 01/15/17 08:56; Admin Dose 81 MG; Start 12/27/16 at 09:00 Benazepril HCl (Lotensin) 10 mg DAILY PO Last administered on 01/15/17 08:55; Admin Dose 10 MG; Start 12/27/16 at 09:00 Clopidogrel Bisulfate (plaVIX) 75 mg DAILY PO Last administered on 01/15/17 08 :56; Admin Dose 75 MG; Start 12/27/16 at 09:00 Diltiazem HCl (Cardizem Cd) 180 mg DAILY PO Last administered on 01/15/17 08: 56; Admin Dose 180 MG; Start 12/26/16 at 14:00 Famotidine (Pepcid) 40 mg HS PO Last administered on 01/14/17 20:38; Admin Dose 40 MG; Start 12/26/16 at 21:00 Folic Acid (Folic Acid) 1 mg DAILY PO Last administered on 01/15/17 08:56; Admin Dose 1 MG; Start 12/27/16 at 09:00 Gabapentin (Neurontin) 100 mg TID PO Last administered on 01/15/17 08:55; Admin Dose 100 MG; Start 12/26/16 at 21:00 Metoprolol Tartrate (Lopressor) 75 mg BID PO Last administered on 01/15/17 08: 55; Admin Dose 75 MG; Start 12/26/16 at 21:00 Mycophenolate Mofetil (Cellcept) 1,000 mg BID PO Last administered on 08:54; Admin Dose 1,000 MG; Start 12/26/16 at 21:00 Pantoprazole (Protonix Tab) 40 mg DAILY@06 PO Last administered on 01/15/17 06 :10; Admin Dose 40 MG; Start 12/27/16 at 06:00 Diagnostic Test (Pha) (Accu-Chek) 1 ea 02 XX ; Start 12/27/16 at 02:00 Miscellaneous Information 1 ea NOTE XX ; Start 12/26/16 at 14:30 Glucose (Glutose) 15 gm Q15M PRN PO DECREASED GLUCOSE; Start 12/26/16 at 14:30 Glucose (Glutose) 22.5 gm Q15M PRN PO DECREASED GLUCOSE; Start 12/26/16 at 14:30 Dextrose (D50w Syringe) 25 ml Q15M PRN IV DECREASED GLUCOSE; Start 12/26/16 at 14:30 Dextrose (D50w Syringe) 50 ml Q15M PRN IV DECREASED GLUCOSE; Start 12/26/16 at 14:30 Glucagon (Glucagen) 1 mg Q15M PRN IM DECREASED GLUCOSE; Start 12/26/16 at 14:30 Glucose (Glutose) 15 gm Q15M PRN BUCCAL DECREASED GLUCOSE; Start 12/26/16 at 14: 30 Acetaminophen/ Hydrocodone Bitart ([place] (5/325)) 1 tab Q8 PO Last administered on 01/14/17 22:07; Admin Dose 1 TAB; Start 12/26/16 at 22:00 Cholecalciferol (Vitamin D) 1,000 unit DAILY PO Last administered on 01/15/17 08:54; Admin Dose 1,000 UNIT; Start 12/28/16 at 09:00 Insulin Glargine (Lantus) 7 unit DAILY@20 SC Last administered on 01/14/17 20: 36; Admin Dose 7 UNIT; Start 12/29/16 at 20:00 Ondansetron HCl 4 mg 4 mg Q6H PRN IV NAUSEA AND/OR VOMITING Last administered on 01/15/17 09:50; Admin Dose 4 MG; Start 01/01/17 at 10:00 Ertapenem 1 gm/ Sodium Chloride 100 ml @ 200 mls/hr Q24H IVPB Last administered on 01/14/17 13:58; Admin Dose 200 MLS/HR; Start 01/06/17 at 14:30 Sodium Chloride (NS) 1,000 ml @ 75 mls/hr [id number] IV Last administered on 01/12 06:18; Admin Dose 75 MLS/HR; Start 01/06/17 at 18:00; Status Future Hold Haloperidol (Haldol) 2 mg Q4H PRN IM AGITATION/ANXIETY Last administered on 22:46; Admin Dose 2 MG; Start 01/08/17 at 01:30 Acetaminophen (Tylenol Tab) 650 mg Q6H PRN PO PAIN AND OR ELEVATED TEMP Last administered on 01/15/17 10:04; Admin Dose 650 MG; Start 01/08/17 at 22:30 Quetiapine Fumarate (Seroquel) 25 mg QHS PRN PO agitation/hallucinations Last administered on 01/09/17 22:15; Admin Dose 25 MG; Start 01/09/17 at 21:00 Morphine Sulfate (morphine) 2 mg Q8H PRN IV PAIN LEVEL 6-10 Last administered on 01/15/17 11:38; Admin Dose 2 MG; Start 01/11/17 at 14:00 Tacrolimus (Prograf) 2 mg Q12 PO Last administered on 01/15/17 08:54; Admin Dose 2 MG; Start 01/11/17 at 21:00 Clonidine (Catapres) 0.1 mg Q6H PRN PO hypertension Last administered on 02:41; Admin Dose 0.1 MG; Start 01/14/17 at 02:30 Hydralazine HCl 25 mg 25 mg Q6H PRN IV ELEVATED SYSTOLIC BP Last administered on 01/14/17 07:04; Admin Dose 25 MG; Start 01/14/17 at 07:00 Sodium Chloride (NS) 1,000 ml @ 75 mls/hr [id number] IV Last administered on 01/15 05:01; Admin Dose 75 MLS/HR; Start 01/14/17 at 13:00 JACQUES HUERTA NP Jan 15, 2017 13:02
[2017-01-15] MEDS: ERTAPENEM SODIUM 1 GM in SOD CHLORIDE 0.9% 100 ML IVPB SCH (13:41)
--- NOTE | 2017-01-15 15:20 | RADRPT ---
PROCEDURE: XR Chest. CLINICAL INDICATION: Chest pain TECHNIQUE: AP view of the chest was performed. COMPARISON: 04/02/2016 FINDINGS: Left base atelectasis is present. Otherwise the lung campbell are clear. The lung volumes are normal. The heart size is normal. The osseous structures are intact. Aortic atherosclerosis is present. IMPRESSION: Left basilar atelectasis. Otherwise the lung campbell are clear. Aortic atherosclerosis. RPTAT: QQ .Merline Moreno MD, Date Time Electronically viewed and signed by .Merline Moreno MD, on 01/15/2017 15:20 .M/
[2017-01-15] MEDS ORDERED: POTASSIUM CHLORIDE (SR) 20 MEQ TAB PO STA (19:43)
--- NOTE | 2017-01-15 19:46 | CONS ---
Date/Time of Note Date/Time of Note DATE: 01/15/17 TIME: 19:44 Assessment/Plan Assessment/Plan Additional Assessment/Plan 1. 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 2. h/o donor kidney transplant in [address] [facility], currently on immunosuppression with Prograf, CellCept 4. 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 History of hypertension. 6. History of diabetes mellitus. 7. History of previous left upper extremity arteriovenous fistula. 8. Hyponatremia due to hypovolemic hyponatremia post op Plan: continue Current immunosuppression Prograf and cellcept, Cr normal, s/p Left AKA- Post op care as per surgery Conitnue NS at 75 cc/hr, KCL 40mEQ PO x 1 dose now -CT chest+ abd+pelvis with and without contrast negative for mass/LAD/Malignancy IV abx as per ID will follow up Consultation Date/Type/Reason Admit Date/Time Dec 26, 2016 at 13:22 Initial Consult Date 12/27/16 Type of Consultation: NEPHROLOGY Referring Provider: LES GILLILAND 24 HR Interval Summary Free Text/Dictation Na dropped to 131, K low, BP stable Exam/Review of Systems Vital Signs Vitals Vital Signs Date Time Temp Pulse Resp B/P Pulse Ox O2 Delivery O2 Flow Rate FiO2 01/15/17 08:00 97.8 78 18 131/70 96 01/13/17 19:25 Nasal Cannula 2.0 Intake and Output 01/14/17 01/14/17 01/15/17 15:00 23:00 07:00 Intake Total 450 ml 585 ml 1595 ml Balance 450 ml 585 ml 1595 ml Exam GEN: fragile elderly woman who is awake in no distress. HEENT: Head atraumatic, normocephalic. Sclerae anicteric. NECK: Supple. CHEST: Rise symmetrical. Breath sounds clear. HEART: S1, S2. ABDOMEN: Soft, bowel sounds present. left BKA dressing clean Results Result Diagram: 01/15/17 0545 01/15/17 0545 Results 24 hrs Laboratory Tests Test 01/14/17 20:34 01/15/17 05:45 01/15/17 08:46 01/15/17 11:40 Bedside Glucose 161 115 96 White Blood Count 19.9 #H Red Blood Count 2.91 L Hemoglobin 8.1 L Hematocrit 24.7 L Mean Corpuscular Volume 84.9 Mean Corpuscular Hemoglobin 27.8 L Mean Corpuscular Hemoglobin Concent 32.8 Red Cell Distribution Width 14.1 Platelet Count 212 Mean Platelet Volume 11.0 H Neutrophils % 86.1 H Lymphocytes % 4.1 L Monocytes % 8.8 Eosinophils % 0.1 Basophils % 0.1 Nucleated Red Blood Cells % 0.0 Neutrophils # 17.1 H Lymphocytes # 0.8 Monocytes # 1.7 H Eosinophils # 0.0 Basophils # 0.0 Nucleated Red Blood Cells # 0.0 Sodium Level 121 L Potassium Level 3.3 L Chloride Level 95 L Carbon Dioxide Level 21 Anion Gap 8 Blood Urea Nitrogen 9 Creatinine 0.53 Glucose Level 75 # Calcium Level 7.5 L Test 01/15/17 17:47 Bedside Glucose 84 Medications Medications Current Medications Aspirin (Halfprin) 81 mg DAILY PO Last administered on 01/15/17 08:56; Admin Dose 81 MG; Start 12/27/16 at 09:00 Benazepril HCl (Lotensin) 10 mg DAILY PO Last administered on 01/15/17 08:55; Admin Dose 10 MG; Start 12/27/16 at 09:00 Clopidogrel Bisulfate (plaVIX) 75 mg DAILY PO Last administered on 01/15/17 08 :56; Admin Dose 75 MG; Start 12/27/16 at 09:00 Diltiazem HCl (Cardizem Cd) 180 mg DAILY PO Last administered on 01/15/17 08: 56; Admin Dose 180 MG; Start 12/26/16 at 14:00 Famotidine (Pepcid) 40 mg HS PO Last administered on 01/14/17 20:38; Admin Dose 40 MG; Start 12/26/16 at 21:00 Folic Acid (Folic Acid) 1 mg DAILY PO Last administered on 01/15/17 08:56; Admin Dose 1 MG; Start 12/27/16 at 09:00 Gabapentin (Neurontin) 100 mg TID PO Last administered on 01/15/17 13:41; Admin Dose 100 MG; Start 12/26/16 at 21:00 Metoprolol Tartrate (Lopressor) 75 mg BID PO Last administered on 01/15/17 08: 55; Admin Dose 75 MG; Start 12/26/16 at 21:00 Mycophenolate Mofetil (Cellcept) 1,000 mg BID PO Last administered on 08:54; Admin Dose 1,000 MG; Start 12/26/16 at 21:00 Pantoprazole (Protonix Tab) 40 mg DAILY@06 PO Last administered on 01/15/17 06 :10; Admin Dose 40 MG; Start 12/27/16 at 06:00 Diagnostic Test (Pha) (Accu-Chek) 1 ea 02 XX ; Start 12/27/16 at 02:00 Miscellaneous Information 1 ea NOTE XX ; Start 12/26/16 at 14:30 Glucose (Glutose) 15 gm Q15M PRN PO DECREASED GLUCOSE; Start 12/26/16 at 14:30 Glucose (Glutose) 22.5 gm Q15M PRN PO DECREASED GLUCOSE; Start 12/26/16 at 14:30 Dextrose (D50w Syringe) 25 ml Q15M PRN IV DECREASED GLUCOSE; Start 12/26/16 at 14:30 Dextrose (D50w Syringe) 50 ml Q15M PRN IV DECREASED GLUCOSE; Start 12/26/16 at 14:30 Glucagon (Glucagen) 1 mg Q15M PRN IM DECREASED GLUCOSE; Start 12/26/16 at 14:30 Glucose (Glutose) 15 gm Q15M PRN BUCCAL DECREASED GLUCOSE; Start 12/26/16 at 14: 30 Acetaminophen/ Hydrocodone Bitart ([place] (5/325)) 1 tab Q8 PO Last administered on 01/15/17 13:41; Admin Dose 1 TAB; Start 12/26/16 at 22:00 Cholecalciferol (Vitamin D) 1,000 unit DAILY PO Last administered on 01/15/17 08:54; Admin Dose 1,000 UNIT; Start 12/28/16 at 09:00 Insulin Glargine (Lantus) 7 unit DAILY@20 SC Last administered on 01/14/17 20: 36; Admin Dose 7 UNIT; Start 12/29/16 at 20:00 Ondansetron HCl 4 mg 4 mg Q6H PRN IV NAUSEA AND/OR VOMITING Last administered on 01/15/17 09:50; Admin Dose 4 MG; Start 01/01/17 at 10:00 Ertapenem 1 gm/ Sodium Chloride 100 ml @ 200 mls/hr Q24H IVPB Last administered on 01/15/17 13:41; Admin Dose 200 MLS/HR; Start 01/06/17 at 14:30 Sodium Chloride (NS) 1,000 ml @ 75 mls/hr [id number] IV Last administered on 01/12 06:18; Admin Dose 75 MLS/HR; Start 01/06/17 at 18:00; Status Future Hold Haloperidol (Haldol) 2 mg Q4H PRN IM AGITATION/ANXIETY Last administered on 22:46; Admin Dose 2 MG; Start 01/08/17 at 01:30 Acetaminophen (Tylenol Tab) 650 mg Q6H PRN PO PAIN AND OR ELEVATED TEMP Last administered on 01/15/17 10:04; Admin Dose 650 MG; Start 01/08/17 at 22:30 Quetiapine Fumarate (Seroquel) 25 mg QHS PRN PO agitation/hallucinations Last administered on 01/09/17 22:15; Admin Dose 25 MG; Start 01/09/17 at 21:00 Morphine Sulfate (morphine) 2 mg Q8H PRN IV PAIN LEVEL 6-10 Last administered on 01/15/17 15:59; Admin Dose 2 MG; Start 01/11/17 at 14:00 Tacrolimus (Prograf) 2 mg Q12 PO Last administered on 01/15/17 08:54; Admin Dose 2 MG; Start 01/11/17 at 21:00 Clonidine (Catapres) 0.1 mg Q6H PRN PO hypertension Last administered on 02:41; Admin Dose 0.1 MG; Start 01/14/17 at 02:30 Hydralazine HCl 25 mg 25 mg Q6H PRN IV ELEVATED SYSTOLIC BP Last administered on 01/14/17 07:04; Admin Dose 25 MG; Start 01/14/17 at 07:00 Sodium Chloride (NS) 1,000 ml @ 75 mls/hr [id number] IV Last administered on 01/15 05:01; Admin Dose 75 MLS/HR; Start 01/14/17 at 13:00 RAMON KEMP MD Jan 15, 2017 19:46
[2017-01-15] MEDS: INSULIN GLARGINE [LANtus] 3 ML PEN SC SCH (20:37)
[2017-01-15] MEDS: FAMOTIDINE 20 MG TAB PO SCH (20:38)
[2017-01-15] MEDS ORDERED: VANCOMYCIN 1 GM in SOD CHLORIDE 0.9% 250 ML IVPB SCH (22:30)
[2017-01-15] MEDS ORDERED: VANCOMYCIN 1 GM in NS 250 ML IVPB ONE (22:30)
[2017-01-16] MEDS ORDERED: SOD CHLORIDE 0.9% 1,000 ML IV ONE (02:30)
[2017-01-16] MEDS ORDERED: HYDROCODONE/APAP (5/325) TAB PO ONE (02:30)
[2017-01-16 03:22] VITALS: BP 87/52; RESP 16
[2017-01-16] MEDS: SOD CHLORIDE 0.9% 1,000 ML IV SCH ×2 (05:00→06:58)
[2017-01-16] MEDS: PANTOPRAZOLE (EC) 40 MG TAB PO SCH (05:30)
[2017-01-16] MEDS: HYDROCODONE/APAP (5/325) TAB PO SCH ×3 (05:30→22:13)
[2017-01-16 06:15] LABS: BASOPHILS % 0.2 % (0.0-2.0); EOSINOPHILS % 0.1 % (0.0-7.0); HEMATOCRIT 22.1 % (37.0-47.0); HEMOGLOBIN 7.3 g/dl (12.0-16.0); LYMPHOCYTES # 0.7 10^3/ul (0.8-2.9); LYMPHOCYTES % 3.6 % (15.0-51.0); MEAN CORPUSCULAR HEMOGLOBIN 28.2 pg (29.0-33.0); MEAN CORPUSCULAR VOLUME 85.3 fl (82.0-101.0); MEAN PLATELET VOLUME 11.2 fl (7.4-10.4); MONOCYTE # 1.5 10^3/ul (0.3-0.9); MONOCYTES % 8.4 % (0.0-11.0); NEUTROPHIL # 15.5 10^3/ul (1.6-7.5); NEUTROPHILS % 86.9 % (39.0-77.0); PLATELET COUNT 215 10^3/UL (140-415); RED BLOOD COUNT 2.59 10^6/ul (4.20-5.40); RED CELL DISTRIBUTION WIDTH 14.1 % (11.5-14.5); WHITE BLOOD COUNT 17.8 10^3/ul (4.8-10.8)
[2017-01-16 06:41] LABS: CALCIUM 7.5 mg/dl (8.4-10.2); CREATININE 0.62 mg/dl (0.44-1.00); POTASSIUM 3.8 mmol/L (3.5-5.1)
[2017-01-16] MEDS: INSULIN ASPART [NOVOLOG] 3 ML PEN SC SCH ×4 (08:00→21:00)
[2017-01-16 08:05] VITALS: BP 96/55; RESP 18
[2017-01-16] MEDS: METOPROLOL 25 MG TAB PO SCH ×2 (09:00→20:27)
[2017-01-16] MEDS: BENAZEPRIL 10 MG TAB PO SCH (09:00)
[2017-01-16] MEDS: TACROLIMUS 0.5 MG CAP PO SCH ×2 (09:24→20:28)
[2017-01-16] MEDS: MYCOPHENOLATE 250 MG CAP PO SCH ×2 (09:24→20:28)
[2017-01-16] MEDS: CLOPIDOGREL 75 MG TAB PO SCH (09:24)
[2017-01-16] MEDS: GABAPENTIN 100 MG CAP PO SCH ×3 (09:24→20:28)
[2017-01-16] MEDS: FOLIC ACID 1 MG TAB PO SCH (09:24)
[2017-01-16] MEDS: CHOLECALCIFEROL 1,000 UNIT TAB PO SCH (09:25)
[2017-01-16] MEDS: ASPIRIN (EC) 81 MG TAB PO SCH (09:25)
[2017-01-16] MEDS: ACETAMINOPHEN 325 MG TAB PO PRN (10:25)
--- NOTE | 2017-01-16 11:59 | CONS ---
Date/Time of Note Date/Time of Note DATE: 01/16/17 TIME: 11:57 Assessment/Plan Assessment/Plan Additional Assessment/Plan 1.[id number] test 10/2016 with no ischemia/only scar/NL EF. Negative trop x 3. Patient is ok to proceed to OR at moderate risk without further noninvasive evaluation on current medications - amputation per vascular team - STABLE NOW 2.HTN-labile but reasonable control - stable overall, will adjust as needed - BP modestly controlled 3.PAD with bilateral gangrene - amputation now 4.DM- on meds, keep euglycemic - will follow 5.Anemia - no bleeding now 6. Encephalopathy - more alert Consultation Date/Type/Reason Admit Date/Time Dec 26, 2016 at 13:22 Initial Consult Date 12/27/16 Type of Consultation: NEPHROLOGY Referring Provider: LES GILLILAND 24 HR Interval Summary Free Text/Dictation NO acute events - BP in good range - will follow ROS: No fever, no chills, no nausea, no vomiting, no diarrhea/constipation No recent weight changes No chest pain, no PND, no orthopnea No dizziness, blurred vision No thirst, no heat or cold intolerance Exam/Review of Systems Vital Signs Vitals Vital Signs Date Time Temp Pulse Resp B/P Pulse Ox O2 Delivery O2 Flow Rate FiO2 01/16/17 08:05 97.9 68 18 96/55 100 01/13/17 19:25 Nasal Cannula 2.0 Intake and Output 01/15/17 01/15/17 01/16/17 15:00 23:00 07:00 Intake Total 600 ml 740 ml 1670 ml Balance 600 ml 740 ml 1670 ml Exam General: WN/WD/NAD, AOx 3 HEENT: Unicetric/atraumatic/EOMI (follows commands) NECK: JVD elevated, no thyromegaly Lymph: no lymphadenopathy HEART: regular with no S3, II/ systolic murmur at apex LUNGS: Coarse sounds ABD: soft, NT, ND, +BS : Intact Neuro: non focal SKIN: chronic changes EXT: trace edema, post op Results Result Diagram: 01/16/1751601/16/17516 Results 24 hrs Laboratory Tests Test 01/15/17 17:47 01/15/17 20:35 01/16/17 05:17 01/16/17 07:59 Bedside Glucose 84 108 73 White Blood Count 17.8 H Red Blood Count 2.59 L Hemoglobin 7.3 L Hematocrit 22.1 L Mean Corpuscular Volume 85.3 Mean Corpuscular Hemoglobin 28.2 L Mean Corpuscular Hemoglobin Concent 33.0 Red Cell Distribution Width 14.1 Platelet Count 215 Mean Platelet Volume 11.2 H Neutrophils % 86.9 H Lymphocytes % 3.6 L Monocytes % 8.4 Eosinophils % 0.1 Basophils % 0.2 Nucleated Red Blood Cells % 0.0 Neutrophils # 15.5 H Lymphocytes # 0.7 L Monocytes # 1.5 H Eosinophils # 0.0 Basophils # 0.0 Nucleated Red Blood Cells # 0.0 Sodium Level 126 L Potassium Level 3.8 Chloride Level 102 Carbon Dioxide Level 21 Anion Gap 7 L Blood Urea Nitrogen 16 Creatinine 0.62 Glucose Level 62 #L Calcium Level 7.5 L Medications Medications Current Medications Aspirin (Halfprin) 81 mg DAILY PO Last administered on 01/16/17 09:25; Admin Dose 81 MG; Start 12/27/16 at 09:00 Benazepril HCl (Lotensin) 10 mg DAILY PO Last administered on 01/15/17 08:55; Admin Dose 10 MG; Start 12/27/16 at 09:00 Clopidogrel Bisulfate (plaVIX) 75 mg DAILY PO Last administered on 01/16/17 09 :24; Admin Dose 75 MG; Start 12/27/16 at 09:00 Famotidine (Pepcid) 40 mg HS PO Last administered on 01/15/17 20:38; Admin Dose 40 MG; Start 12/26/16 at 21:00 Folic Acid (Folic Acid) 1 mg DAILY PO Last administered on 01/16/17 09:24; Admin Dose 1 MG; Start 12/27/16 at 09:00 Gabapentin (Neurontin) 100 mg TID PO Last administered on 01/16/17 09:24; Admin Dose 100 MG; Start 12/26/16 at 21:00 Metoprolol Tartrate (Lopressor) 75 mg BID PO Last administered on 01/15/17 20: 36; Admin Dose 75 MG; Start 12/26/16 at 21:00 Mycophenolate Mofetil (Cellcept) 1,000 mg BID PO Last administered on 09:24; Admin Dose 1,000 MG; Start 12/26/16 at 21:00 Pantoprazole (Protonix Tab) 40 mg DAILY@06 PO Last administered on 01/16/17 05 :30; Admin Dose 40 MG; Start 12/27/16 at 06:00 Diagnostic Test (Pha) (Accu-Chek) 1 ea 02 XX ; Start 12/27/16 at 02:00 Miscellaneous Information 1 ea NOTE XX ; Start 12/26/16 at 14:30 Glucose (Glutose) 15 gm Q15M PRN PO DECREASED GLUCOSE; Start 12/26/16 at 14:30 Glucose (Glutose) 22.5 gm Q15M PRN PO DECREASED GLUCOSE; Start 12/26/16 at 14:30 Dextrose (D50w Syringe) 25 ml Q15M PRN IV DECREASED GLUCOSE; Start 12/26/16 at 14:30 Dextrose (D50w Syringe) 50 ml Q15M PRN IV DECREASED GLUCOSE; Start 12/26/16 at 14:30 Glucagon (Glucagen) 1 mg Q15M PRN IM DECREASED GLUCOSE; Start 12/26/16 at 14:30 Glucose (Glutose) 15 gm Q15M PRN BUCCAL DECREASED GLUCOSE; Start 12/26/16 at 14: 30 Acetaminophen/ Hydrocodone Bitart ([place] (5/325)) 1 tab Q8 PO Last administered on 01/16/17 05:30; Admin Dose 1 TAB; Start 12/26/16 at 22:00 Cholecalciferol (Vitamin D) 1,000 unit DAILY PO Last administered on 01/16/17 09:25; Admin Dose 1,000 UNIT; Start 12/28/16 at 09:00 Insulin Glargine (Lantus) 7 unit DAILY@20 SC Last administered on 01/15/17 20: 37; Admin Dose 7 UNIT; Start 12/29/16 at 20:00 Ondansetron HCl 4 mg 4 mg Q6H PRN IV NAUSEA AND/OR VOMITING Last administered on 01/15/17 09:50; Admin Dose 4 MG; Start 01/01/17 at 10:00 Ertapenem/Sodium Chloride (Invanz/NS) 100 ml @ 200 mls/hr Q24H IVPB Last administered on 01/15/17 13:41; Admin Dose 200 MLS/HR; Start 01/06/17 at 14:30 Haloperidol (Haldol) 2 mg Q4H PRN IM AGITATION/ANXIETY Last administered on 22:46; Admin Dose 2 MG; Start 01/08/17 at 01:30 Acetaminophen (Tylenol Tab) 650 mg Q6H PRN PO PAIN AND OR ELEVATED TEMP Last administered on 01/16/17 10:25; Admin Dose 650 MG; Start 01/08/17 at 22:30 Quetiapine Fumarate (Seroquel) 25 mg QHS PRN PO agitation/hallucinations Last administered on 01/09/17 22:15; Admin Dose 25 MG; Start 01/09/17 at 21:00 Morphine Sulfate (morphine) 2 mg Q8H PRN IV PAIN LEVEL 6-10 Last administered on 01/15/17 15:59; Admin Dose 2 MG; Start 01/11/17 at 14:00 Tacrolimus (Prograf) 2 mg Q12 PO Last administered on 01/16/17 09:24; Admin Dose 2 MG; Start 01/11/17 at 21:00 Clonidine (Catapres) 0.1 mg Q6H PRN PO hypertension Last administered on 02:41; Admin Dose 0.1 MG; Start 01/14/17 at 02:30 Hydralazine HCl 25 mg 25 mg Q6H PRN IV ELEVATED SYSTOLIC BP Last administered on 01/14/17 07:04; Admin Dose 25 MG; Start 01/14/17 at 07:00 Sodium Chloride (NS) 1,000 ml @ 75 mls/hr [id number] IV Last administered on 01/16 06:58; Admin Dose 75 MLS/HR; Start 01/14/17 at 13:00 MIRELLA MOSER MD Jan 16, 2017 11:59
--- NOTE | 2017-01-16 12:41 | CONS ---
Date/Time of Note Date/Time of Note DATE: 01/16/17 TIME: 12:40 Assessment/Plan Assessment/Plan Chief Complaint/Hosp Course SUBJECTIVE DATA:Awake, looks comfortable, no fevers T-max 99.6 T-current 97 9 pulse 68 respirations 18 blood pressure 96/55 saturation 100 on room air WBC 17.8 H&H 7.3 and 22.1 platelets 215 neutrophils 86.9 BUN 16 creatinine 0.62 Urine culture sent yesterday pending MICROBIOLOGY: Right foot culture grew E. coli ESBL. ANTIMICROBIALS: Invanz. PHYSICAL EXAMINATION: This is a wasted fragile elderly woman who is awake in no distress. HEENT: Head atraumatic, normocephalic. Sclerae anicteric. NECK: Supple. CHEST: Rise symmetrical. Breath sounds clear. HEART: S1, S2. ABDOMEN: Soft, bowel sounds present. ASSESSMENT: 1. SIRS with increased leukocytosis possibly reactive 2. 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 Pt is s/p LAKA 2. Severe peripheral arterial disease. 3. History of kidney transplant, remains on immunosuppressive therapy. 4. Diabetes and hypertension. 5. Cachexia 6. Acute on chronic anemia PLAN: Clinically stable, continue abx, await for urine cultures, f/u vascular recommendations, blood transfusion as needed discussed with patient and RN Problems: Consultation Date/Type/Reason Admit Date/Time Dec 26, 2016 at 13:22 Initial Consult Date 12/27/16 Type of Consultation: ID Referring Provider: LES GILLILAND Exam/Review of Systems Vital Signs Vitals Vital Signs Date Time Temp Pulse Resp B/P Pulse Ox O2 Delivery O2 Flow Rate FiO2 01/16/17 08:05 97.9 68 18 96/55 100 01/13/17 19:25 Nasal Cannula 2.0 Intake and Output 01/15/17 01/15/17 01/16/17 14:59 22:59 06:59 Intake Total 600 ml 740 ml 1670 ml Balance 600 ml 740 ml 1670 ml Results Result Diagram: 01/16/17 0517 01/16/17 0517 Results 24 hrs Laboratory Tests Test 01/15/17 17:47 01/15/17 20:35 01/16/17 05:17 01/16/17 07:59 Bedside Glucose 84 108 73 White Blood Count 17.8 H Red Blood Count 2.59 L Hemoglobin 7.3 L Hematocrit 22.1 L Mean Corpuscular Volume 85.3 Mean Corpuscular Hemoglobin 28.2 L Mean Corpuscular Hemoglobin Concent 33.0 Red Cell Distribution Width 14.1 Platelet Count 215 Mean Platelet Volume 11.2 H Neutrophils % 86.9 H Lymphocytes % 3.6 L Monocytes % 8.4 Eosinophils % 0.1 Basophils % 0.2 Nucleated Red Blood Cells % 0.0 Neutrophils # 15.5 H Lymphocytes # 0.7 L Monocytes # 1.5 H Eosinophils # 0.0 Basophils # 0.0 Nucleated Red Blood Cells # 0.0 Sodium Level 126 L Potassium Level 3.8 Chloride Level 102 Carbon Dioxide Level 21 Anion Gap 7 L Blood Urea Nitrogen 16 Creatinine 0.62 Glucose Level 62 #L Calcium Level 7.5 L Test 01/16/17 12:06 Bedside Glucose 97 Medications Medications Current Medications Aspirin (Halfprin) 81 mg DAILY PO Last administered on 01/16/17 09:25; Admin Dose 81 MG; Start 12/27/16 at 09:00 Benazepril HCl (Lotensin) 10 mg DAILY PO Last administered on 01/15/17 08:55; Admin Dose 10 MG; Start 12/27/16 at 09:00 Clopidogrel Bisulfate (plaVIX) 75 mg DAILY PO Last administered on 01/16/17 09 :24; Admin Dose 75 MG; Start 12/27/16 at 09:00 Famotidine (Pepcid) 40 mg HS PO Last administered on 01/15/17 20:38; Admin Dose 40 MG; Start 12/26/16 at 21:00 Folic Acid (Folic Acid) 1 mg DAILY PO Last administered on 01/16/17 09:24; Admin Dose 1 MG; Start 12/27/16 at 09:00 Gabapentin (Neurontin) 100 mg TID PO Last administered on 01/16/17 09:24; Admin Dose 100 MG; Start 12/26/16 at 21:00 Metoprolol Tartrate (Lopressor) 75 mg BID PO Last administered on 01/15/17 20: 36; Admin Dose 75 MG; Start 12/26/16 at 21:00 Mycophenolate Mofetil (Cellcept) 1,000 mg BID PO Last administered on 09:24; Admin Dose 1,000 MG; Start 12/26/16 at 21:00 Pantoprazole (Protonix Tab) 40 mg DAILY@06 PO Last administered on 01/16/17 05 :30; Admin Dose 40 MG; Start 12/27/16 at 06:00 Diagnostic Test (Pha) (Accu-Chek) 1 ea 02 XX ; Start 12/27/16 at 02:00 Miscellaneous Information 1 ea NOTE XX ; Start 12/26/16 at 14:30 Glucose (Glutose) 15 gm Q15M PRN PO DECREASED GLUCOSE; Start 12/26/16 at 14:30 Glucose (Glutose) 22.5 gm Q15M PRN PO DECREASED GLUCOSE; Start 12/26/16 at 14:30 Dextrose (D50w Syringe) 25 ml Q15M PRN IV DECREASED GLUCOSE; Start 12/26/16 at 14:30 Dextrose (D50w Syringe) 50 ml Q15M PRN IV DECREASED GLUCOSE; Start 12/26/16 at 14:30 Glucagon (Glucagen) 1 mg Q15M PRN IM DECREASED GLUCOSE; Start 12/26/16 at 14:30 Glucose (Glutose) 15 gm Q15M PRN BUCCAL DECREASED GLUCOSE; Start 12/26/16 at 14: 30 Acetaminophen/ Hydrocodone Bitart ([place] (5/325)) 1 tab Q8 PO Last administered on 01/16/17 05:30; Admin Dose 1 TAB; Start 12/26/16 at 22:00 Cholecalciferol (Vitamin D) 1,000 unit DAILY PO Last administered on 01/16/17 09:25; Admin Dose 1,000 UNIT; Start 12/28/16 at 09:00 Insulin Glargine (Lantus) 7 unit DAILY@20 SC Last administered on 01/15/17 20: 37; Admin Dose 7 UNIT; Start 12/29/16 at 20:00 Ondansetron HCl 4 mg 4 mg Q6H PRN IV NAUSEA AND/OR VOMITING Last administered on 01/15/17 09:50; Admin Dose 4 MG; Start 01/01/17 at 10:00 Ertapenem/Sodium Chloride (Invanz/NS) 100 ml @ 200 mls/hr Q24H IVPB Last administered on 01/15/17 13:41; Admin Dose 200 MLS/HR; Start 01/06/17 at 14:30 Haloperidol (Haldol) 2 mg Q4H PRN IM AGITATION/ANXIETY Last administered on 22:46; Admin Dose 2 MG; Start 01/08/17 at 01:30 Acetaminophen (Tylenol Tab) 650 mg Q6H PRN PO PAIN AND OR ELEVATED TEMP Last administered on 01/16/17 10:25; Admin Dose 650 MG; Start 01/08/17 at 22:30 Quetiapine Fumarate (Seroquel) 25 mg QHS PRN PO agitation/hallucinations Last administered on 01/09/17 22:15; Admin Dose 25 MG; Start 01/09/17 at 21:00 Morphine Sulfate (morphine) 2 mg Q8H PRN IV PAIN LEVEL 6-10 Last administered on 01/15/17 15:59; Admin Dose 2 MG; Start 01/11/17 at 14:00 Tacrolimus (Prograf) 2 mg Q12 PO Last administered on 01/16/17 09:24; Admin Dose 2 MG; Start 01/11/17 at 21:00 Clonidine (Catapres) 0.1 mg Q6H PRN PO hypertension Last administered on 02:41; Admin Dose 0.1 MG; Start 01/14/17 at 02:30 Hydralazine HCl 25 mg 25 mg Q6H PRN IV ELEVATED SYSTOLIC BP Last administered on 01/14/17 07:04; Admin Dose 25 MG; Start 01/14/17 at 07:00 Sodium Chloride (NS) 1,000 ml @ 75 mls/hr [id number] IV Last administered on 01/16 06:58; Admin Dose 75 MLS/HR; Start 01/14/17 at 13:00 JACQUES HUERTA NP Jan 16, 2017 12:41
[2017-01-16] MEDS ORDERED: MEGESTROL (40 MG/ML) 10ML CUP PO ONE (13:00)
[2017-01-16 15:08] VITALS: BP 127/69; RESP 18
[2017-01-16] MEDS: ERTAPENEM SODIUM 1 GM in SOD CHLORIDE 0.9% 100 ML IVPB SCH (15:48)
--- NOTE | 2017-01-16 18:57 | PN ---
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 However, at the moment no significant rest pain reported -Optimize vascular status (BP medications, diet, nutrition and exercise, sugar control, antiplatelets). 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 -Thank you for allowing us to partake in the care of your patient. Please call with any questions. Problems: Subjective 24 Hr Interval Summary Constitutional: improved, no complaints Exam/Review of Systems Vital Signs Vitals Vital Signs Date Time Temp Pulse Resp B/P Pulse Ox O2 Delivery O2 Flow Rate FiO2 01/17/17 14:00 98.6 64 20 141/88 96 01/13/17 19:25 Nasal Cannula 2.0 Intake and Output 01/16/17 01/16/17 01/17/17 14:59 22:59 06:59 Intake Total 300 ml 1120 ml 1300 ml Output Total 800 ml Balance 300 ml 1120 ml 500 ml Results Result Diagram: 01/17/17 0545 01/17/17 0545 WILD DUARTE MD Jan 16, 2017 18:57 01/16/17 0517 WILD DUARTE MD Jan 16, 2017 18:57
[2017-01-16] MEDS: INSULIN GLARGINE [LANtus] 3 ML PEN SC SCH (19:56)
[2017-01-16] MEDS: FAMOTIDINE 20 MG TAB PO SCH (20:29)
[2017-01-16 21:17] VITALS: BP 97/64; RESP 18
--- NOTE | 2017-01-16 21:18 | CONS ---
Date/Time of Note Date/Time of Note DATE: 01/16/17 TIME: 21:16 Assessment/Plan Assessment/Plan Additional Assessment/Plan 1. 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 h/o donor kidney transplant in [address] [facility], currently on immunosuppression with Prograf, CellCept 4. 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 History of hypertension. 6. History of diabetes mellitus. 7. History of previous left upper extremity arteriovenous fistula. 8. Hyponatremia due to hypovolemic hyponatremia post op 9. -CT chest+ abd+pelvis with and without contrast negative for mass/LAD/ Malignancy Plan: continue Current immunosuppression Prograf and cellcept, Cr normal, s/p Left AKA- Post op care as per surgery Conitnue NS at 75 cc/hr, electrolytes stable IV abx as per ID will follow up Consultation Date/Type/Reason Admit Date/Time Dec 26, 2016 at 13:22 Initial Consult Date 12/27/16 Type of Consultation: NEPHROLOGY Referring Provider: LES GILLILAND Exam/Review of Systems Vital Signs Vitals Vital Signs Date Time Temp Pulse Resp B/P Pulse Ox O2 Delivery O2 Flow Rate FiO2 01/16/17 15:08 98.1 87 18 127/69 99 01/13/17 19:25 Nasal Cannula 2.0 Intake and Output 01/15/17 01/15/17 01/16/17 15:00 23:00 07:00 Intake Total 600 ml 740 ml 1670 ml Balance 600 ml 740 ml 1670 ml Exam GEN: fragile elderly woman who is awake in no distress. HEENT: Head atraumatic, normocephalic. Sclerae anicteric. NECK: Supple. CHEST: Rise symmetrical. Breath sounds clear. HEART: S1, S2. ABDOMEN: Soft, bowel sounds present. left BKA dressing clean Results Result Diagram: 01/16/17 0501/16/17 05 Results 24 hrs Laboratory Tests Test 01/16/17 05:17 01/16/17 07:59 01/16/17 12:06 01/16/17 17:22 White Blood Count 17.8 H Red Blood Count 2.59 L Hemoglobin 7.3 L Hematocrit 22.1 L Mean Corpuscular Volume 85.3 Mean Corpuscular Hemoglobin 28.2 L Mean Corpuscular Hemoglobin Concent 33.0 Red Cell Distribution Width 14.1 Platelet Count 215 Mean Platelet Volume 11.2 H Neutrophils % 86.9 H Lymphocytes % 3.6 L Monocytes % 8.4 Eosinophils % 0.1 Basophils % 0.2 Nucleated Red Blood Cells % 0.0 Neutrophils # 15.5 H Lymphocytes # 0.7 L Monocytes # 1.5 H Eosinophils # 0.0 Basophils # 0.0 Nucleated Red Blood Cells # 0.0 Sodium Level 126 L Potassium Level 3.8 Chloride Level 102 Carbon Dioxide Level 21 Anion Gap 7 L Blood Urea Nitrogen 16 Creatinine 0.62 Glucose Level 62 #L Calcium Level 7.5 L Bedside Glucose 73 97 104 Test 01/16/17 19:54 Bedside Glucose 129 Medications Medications Current Medications Aspirin (Halfprin) 81 mg DAILY PO Last administered on 01/16/17 09:25; Admin Dose 81 MG; Start 12/27/16 at 09:00 Benazepril HCl (Lotensin) 10 mg DAILY PO Last administered on 01/15/17 08:55; Admin Dose 10 MG; Start 12/27/16 at 09:00 Clopidogrel Bisulfate (plaVIX) 75 mg DAILY PO Last administered on 01/16/17 09 :24; Admin Dose 75 MG; Start 12/27/16 at 09:00 Famotidine (Pepcid) 40 mg HS PO Last administered on 01/16/17 20:29; Admin Dose 40 MG; Start 12/26/16 at 21:00 Folic Acid (Folic Acid) 1 mg DAILY PO Last administered on 01/16/17 09:24; Admin Dose 1 MG; Start 12/27/16 at 09:00 Gabapentin (Neurontin) 100 mg TID PO Last administered on 01/16/17 20:28; Admin Dose 100 MG; Start 12/26/16 at 21:00 Metoprolol Tartrate (Lopressor) 75 mg BID PO Last administered on 01/15/17 20: 36; Admin Dose 75 MG; Start 12/26/16 at 21:00 Mycophenolate Mofetil (Cellcept) 1,000 mg BID PO Last administered on 20:28; Admin Dose 1,000 MG; Start 12/26/16 at 21:00 Pantoprazole (Protonix Tab) 40 mg DAILY@06 PO Last administered on 01/16/17 05 :30; Admin Dose 40 MG; Start 12/27/16 at 06:00 Diagnostic Test (Pha) (Accu-Chek) 1 ea 02 XX ; Start 12/27/16 at 02:00 Miscellaneous Information 1 ea NOTE XX ; Start 12/26/16 at 14:30 Glucose (Glutose) 15 gm Q15M PRN PO DECREASED GLUCOSE; Start 12/26/16 at 14:30 Glucose (Glutose) 22.5 gm Q15M PRN PO DECREASED GLUCOSE; Start 12/26/16 at 14:30 Dextrose (D50w Syringe) 25 ml Q15M PRN IV DECREASED GLUCOSE; Start 12/26/16 at 14:30 Dextrose (D50w Syringe) 50 ml Q15M PRN IV DECREASED GLUCOSE; Start 12/26/16 at 14:30 Glucagon (Glucagen) 1 mg Q15M PRN IM DECREASED GLUCOSE; Start 12/26/16 at 14:30 Glucose (Glutose) 15 gm Q15M PRN BUCCAL DECREASED GLUCOSE; Start 12/26/16 at 14: 30 Acetaminophen/ Hydrocodone Bitart ([place] (5/325)) 1 tab Q8 PO Last administered on 01/16/17 13:45; Admin Dose 1 TAB; Start 12/26/16 at 22:00 Cholecalciferol (Vitamin D) 1,000 unit DAILY PO Last administered on 01/16/17 09:25; Admin Dose 1,000 UNIT; Start 12/28/16 at 09:00 Insulin Glargine (Lantus) 7 unit DAILY@20 SC Last administered on 01/16/17 19: 56; Admin Dose 7 UNIT; Start 12/29/16 at 20:00 Ondansetron HCl 4 mg 4 mg Q6H PRN IV NAUSEA AND/OR VOMITING Last administered on 01/15/17 09:50; Admin Dose 4 MG; Start 01/01/17 at 10:00 Ertapenem/Sodium Chloride (Invanz/NS) 100 ml @ 200 mls/hr Q24H IVPB Last administered on 01/16/17 15:48; Admin Dose 200 MLS/HR; Start 01/06/17 at 14:30 Haloperidol (Haldol) 2 mg Q4H PRN IM AGITATION/ANXIETY Last administered on 22:46; Admin Dose 2 MG; Start 01/08/17 at 01:30 Acetaminophen (Tylenol Tab) 650 mg Q6H PRN PO PAIN AND OR ELEVATED TEMP Last administered on 01/16/17 10:25; Admin Dose 650 MG; Start 01/08/17 at 22:30 Quetiapine Fumarate (Seroquel) 25 mg QHS PRN PO agitation/hallucinations Last administered on 01/09/17 22:15; Admin Dose 25 MG; Start 01/09/17 at 21:00 Morphine Sulfate (morphine) 2 mg Q8H PRN IV PAIN LEVEL 6-10 Last administered on 01/15/17 15:59; Admin Dose 2 MG; Start 01/11/17 at 14:00 Tacrolimus (Prograf) 2 mg Q12 PO Last administered on 01/16/17 20:28; Admin Dose 2 MG; Start 01/11/17 at 21:00 Clonidine (Catapres) 0.1 mg Q6H PRN PO hypertension Last administered on 02:41; Admin Dose 0.1 MG; Start 01/14/17 at 02:30 Hydralazine HCl 25 mg 25 mg Q6H PRN IV ELEVATED SYSTOLIC BP Last administered on 01/14/17 07:04; Admin Dose 25 MG; Start 01/14/17 at 07:00 Sodium Chloride (NS) 1,000 ml @ 75 mls/hr [id number] IV Last administered on 01/16 06:58; Admin Dose 75 MLS/HR; Start 01/14/17 at 13:00 RAMON KEMP MD Jan 16, 2017 21:18
--- NOTE | 2017-01-16 21:58 | PN ---
Date/Time of Note Date/Time of Note DATE: 01/16/17 TIME: 21:58 Assessment/Plan Lines/Catheters IV C[facility] Type (from [facility] Peripheral IV Urinary Cath still in place: No Assessment/Plan Assessment/Plan - Acute encephalopathy, resolved. CT brain is negative for any acute pathology. 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 S/p left AKA 01/[address] Valencia, vascular surgery. - Diabetes mellitus type II. Continue Lantus and NovoLog. - History of kidney transplant in 2009, on immunosuppressive therapy. - Hypertension. 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 - Anemia of chronic kidney disease. Further recommendations based on clinical course. Plan of care discussed with Dr. Cohen Subjective 24 Hr Interval Summary Free Text/Dictation seen at 1440 Exam/Review of Systems Vital Signs Vitals Vital Signs Date Time Temp Pulse Resp B/P Pulse Ox O2 Delivery O2 Flow Rate FiO2 01/16/17 21:17 98.6 91 18 97/64 100 01/13/17 19:25 Nasal Cannula 2.0 Intake and Output 01/15/17 01/15/17 01/16/17 15:00 23:00 07:00 Intake Total 600 ml 740 ml 1670 ml Balance 600 ml 740 ml 1670 ml Results Result Diagram: 01/16/17 0517 01/16/17 0517 Results 24 hrs Laboratory Tests Test 01/16/17 05:17 01/16/17 07:59 01/16/17 12:06 01/16/17 17:22 White Blood Count 17.8 H Red Blood Count 2.59 L Hemoglobin 7.3 L Hematocrit 22.1 L Mean Corpuscular Volume 85.3 Mean Corpuscular Hemoglobin 28.2 L Mean Corpuscular Hemoglobin Concent 33.0 Red Cell Distribution Width 14.1 Platelet Count 215 Mean Platelet Volume 11.2 H Neutrophils % 86.9 H Lymphocytes % 3.6 L Monocytes % 8.4 Eosinophils % 0.1 Basophils % 0.2 Nucleated Red Blood Cells % 0.0 Neutrophils # 15.5 H Lymphocytes # 0.7 L Monocytes # 1.5 H Eosinophils # 0.0 Basophils # 0.0 Nucleated Red Blood Cells # 0.0 Sodium Level 126 L Potassium Level 3.8 Chloride Level 102 Carbon Dioxide Level 21 Anion Gap 7 L Blood Urea Nitrogen 16 Creatinine 0.62 Glucose Level 62 #L Calcium Level 7.5 L Bedside Glucose 73 97 104 Test 01/16/17 19:54 01/16/17 21:16 Bedside Glucose 129 111 Medications Medications Current Medications Aspirin (Halfprin) 81 mg DAILY PO Last administered on 01/16/17 09:25; Admin Dose 81 MG; Start 12/27/16 at 09:00 Benazepril HCl (Lotensin) 10 mg DAILY PO Last administered on 01/15/17 08:55; Admin Dose 10 MG; Start 12/27/16 at 09:00 Clopidogrel Bisulfate (plaVIX) 75 mg DAILY PO Last administered on 01/16/17 09 :24; Admin Dose 75 MG; Start 12/27/16 at 09:00 Famotidine (Pepcid) 40 mg HS PO Last administered on 01/16/17 20:29; Admin Dose 40 MG; Start 12/26/16 at 21:00 Folic Acid (Folic Acid) 1 mg DAILY PO Last administered on 01/16/17 09:24; Admin Dose 1 MG; Start 12/27/16 at 09:00 Gabapentin (Neurontin) 100 mg TID PO Last administered on 01/16/17 20:28; Admin Dose 100 MG; Start 12/26/16 at 21:00 Metoprolol Tartrate (Lopressor) 75 mg BID PO Last administered on 01/15/17 20: 36; Admin Dose 75 MG; Start 12/26/16 at 21:00 Mycophenolate Mofetil (Cellcept) 1,000 mg BID PO Last administered on 20:28; Admin Dose 1,000 MG; Start 12/26/16 at 21:00 Pantoprazole (Protonix Tab) 40 mg DAILY@06 PO Last administered on 01/16/17 05 :30; Admin Dose 40 MG; Start 12/27/16 at 06:00 Diagnostic Test (Pha) (Accu-Chek) 1 ea 02 XX ; Start 12/27/16 at 02:00 Miscellaneous Information 1 ea NOTE XX ; Start 12/26/16 at 14:30 Glucose (Glutose) 15 gm Q15M PRN PO DECREASED GLUCOSE; Start 12/26/16 at 14:30 Glucose (Glutose) 22.5 gm Q15M PRN PO DECREASED GLUCOSE; Start 12/26/16 at 14:30 Dextrose (D50w Syringe) 25 ml Q15M PRN IV DECREASED GLUCOSE; Start 12/26/16 at 14:30 Dextrose (D50w Syringe) 50 ml Q15M PRN IV DECREASED GLUCOSE; Start 12/26/16 at 14:30 Glucagon (Glucagen) 1 mg Q15M PRN IM DECREASED GLUCOSE; Start 12/26/16 at 14:30 Glucose (Glutose) 15 gm Q15M PRN BUCCAL DECREASED GLUCOSE; Start 12/26/16 at 14: 30 Acetaminophen/ Hydrocodone Bitart ([place] (5/325)) 1 tab Q8 PO Last administered on 01/16/17 13:45; Admin Dose 1 TAB; Start 12/26/16 at 22:00 Cholecalciferol (Vitamin D) 1,000 unit DAILY PO Last administered on 01/16/17 09:25; Admin Dose 1,000 UNIT; Start 12/28/16 at 09:00 Insulin Glargine (Lantus) 7 unit DAILY@20 SC Last administered on 01/16/17 19: 56; Admin Dose 7 UNIT; Start 12/29/16 at 20:00 Ondansetron HCl 4 mg 4 mg Q6H PRN IV NAUSEA AND/OR VOMITING Last administered on 01/15/17 09:50; Admin Dose 4 MG; Start 01/01/17 at 10:00 Ertapenem/Sodium Chloride (Invanz/NS) 100 ml @ 200 mls/hr Q24H IVPB Last administered on 01/16/17 15:48; Admin Dose 200 MLS/HR; Start 01/06/17 at 14:30 Haloperidol (Haldol) 2 mg Q4H PRN IM AGITATION/ANXIETY Last administered on 22:46; Admin Dose 2 MG; Start 01/08/17 at 01:30 Acetaminophen (Tylenol Tab) 650 mg Q6H PRN PO PAIN AND OR ELEVATED TEMP Last administered on 01/16/17 10:25; Admin Dose 650 MG; Start 01/08/17 at 22:30 Quetiapine Fumarate (Seroquel) 25 mg QHS PRN PO agitation/hallucinations Last administered on 01/09/17 22:15; Admin Dose 25 MG; Start 01/09/17 at 21:00 Morphine Sulfate (morphine) 2 mg Q8H PRN IV PAIN LEVEL 6-10 Last administered on 01/15/17 15:59; Admin Dose 2 MG; Start 01/11/17 at 14:00 Tacrolimus (Prograf) 2 mg Q12 PO Last administered on 01/16/17 20:28; Admin Dose 2 MG; Start 01/11/17 at 21:00 Clonidine (Catapres) 0.1 mg Q6H PRN PO hypertension Last administered on 02:41; Admin Dose 0.1 MG; Start 01/14/17 at 02:30 Hydralazine HCl 25 mg 25 mg Q6H PRN IV ELEVATED SYSTOLIC BP Last administered on 01/14/17 07:04; Admin Dose 25 MG; Start 01/14/17 at 07:00 Sodium Chloride (NS) 1,000 ml @ 75 mls/hr [id number] IV Last administered on 01/16 06:58; Admin Dose 75 MLS/HR; Start 01/14/17 at 13:00 TIM BENNETT Jan 16, 2017 21:58
[2017-01-17] MEDS: ACCU-CHEK XX SCH (01:56)
[2017-01-17 03:53] VITALS: BP 122/67; RESP 18
[2017-01-17] MEDS: PANTOPRAZOLE (EC) 40 MG TAB PO SCH (05:31)
[2017-01-17] MEDS: HYDROCODONE/APAP (5/325) TAB PO SCH ×3 (05:34→21:58)
[2017-01-17 06:15] LABS: BASOPHILS % 0.2 % (0.0-2.0); EOSINOPHILS # 0.1 10^3/ul (0.0-0.5); EOSINOPHILS % 0.3 % (0.0-7.0); HEMATOCRIT 28.1 % (37.0-47.0); HEMOGLOBIN 9.3 g/dl (12.0-16.0); LYMPHOCYTES # 0.9 10^3/ul (0.8-2.9); LYMPHOCYTES % 5.2 % (15.0-51.0); MEAN CORPUSCULAR HEMOGLOBIN 28.3 pg (29.0-33.0); MEAN CORPUSCULAR HGB CONC 33.1 g/dl (32.0-37.0); MEAN CORPUSCULAR VOLUME 85.4 fl (82.0-101.0); MEAN PLATELET VOLUME 10.9 fl (7.4-10.4); MONOCYTE # 1.5 10^3/ul (0.3-0.9); MONOCYTES % 8.6 % (0.0-11.0); NEUTROPHIL # 14.8 10^3/ul (1.6-7.5); NEUTROPHILS % 85.1 % (39.0-77.0); PLATELET COUNT 249 10^3/UL (140-415); RED BLOOD COUNT 3.29 10^6/ul (4.20-5.40); RED CELL DISTRIBUTION WIDTH 14.5 % (11.5-14.5); WHITE BLOOD COUNT 17.4 10^3/ul (4.8-10.8)
[2017-01-17 06:44] LABS: CALCIUM 8.3 mg/dl (8.4-10.2); CREATININE 0.65 mg/dl (0.44-1.00); POTASSIUM 3.9 mmol/L (3.5-5.1)
[2017-01-17 08:00] VITALS: BP 132/72; PULSE 94; RESP 16
[2017-01-17] MEDS: INSULIN ASPART [NOVOLOG] 3 ML PEN SC SCH ×4 (08:00→21:00)
[2017-01-17] MEDS: TACROLIMUS 0.5 MG CAP PO SCH ×2 (08:11→21:02)
[2017-01-17] MEDS: ASPIRIN (EC) 81 MG TAB PO SCH (08:11)
[2017-01-17] MEDS: CLOPIDOGREL 75 MG TAB PO SCH (08:11)
[2017-01-17] MEDS: BENAZEPRIL 10 MG TAB PO SCH (08:11)
[2017-01-17] MEDS: GABAPENTIN 100 MG CAP PO SCH ×3 (08:11→21:02)
[2017-01-17] MEDS: METOPROLOL 25 MG TAB PO SCH ×2 (08:12→21:02)
[2017-01-17] MEDS: MYCOPHENOLATE 250 MG CAP PO SCH ×2 (08:12→21:02)
[2017-01-17] MEDS: CHOLECALCIFEROL 1,000 UNIT TAB PO SCH (08:12)
[2017-01-17] MEDS: FOLIC ACID 1 MG TAB PO SCH (08:12)
--- NOTE | 2017-01-17 13:16 | CONS ---
Date/Time of Note Date/Time of Note DATE: 01/17/17 TIME: 13:14 Assessment/Plan Assessment/Plan Chief Complaint/Hosp Course SUBJECTIVE DATA:Awake, looks comfortable, no fevers, having lose stools, nad MICROBIOLOGY: Right foot culture grew E. coli ESBL. ANTIMICROBIALS: Invanz. PHYSICAL EXAMINATION: This is a wasted fragile elderly woman who is awake in no distress. HEENT: Head atraumatic, normocephalic. Sclerae anicteric. NECK: Supple. CHEST: Rise symmetrical. Breath sounds clear. HEART: S1, S2. ABDOMEN: Soft, bowel sounds present. Ext: R foot dsg intact, L AKA ASSESSMENT: 1. SIRS with increased leukocytosis possibly reactive ? C dif 2. 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 Pt is s/p LAKA 2. Severe peripheral arterial disease. 3. History of kidney transplant, remains on immunosuppressive therapy. 4. Diabetes and hypertension. 5. Cachexia 6. Acute on chronic anemia PLAN: Clinically stable, send stool for C dif, start empiric oral Vanco, continue Invanz, await for urine cultures, f/u vascular recommendations LUBNA braun Problems: Consultation Date/Type/Reason Admit Date/Time Dec 26, 2016 at 13:22 Initial Consult Date 12/27/16 Type of Consultation: ID Referring Provider: LES GILLILAND Exam/Review of Systems Vital Signs Vitals Vital Signs Date Time Temp Pulse Resp B/P Pulse Ox O2 Delivery O2 Flow Rate FiO2 01/17/17 08:00 98.4 94 16 132/72 100 01/13/17 19:25 Nasal Cannula 2.0 Intake and Output 01/16/17 01/16/17 01/17/17 15:00 23:00 07:00 Intake Total 300 ml 1120 ml 1300 ml Output Total 800 ml Balance 300 ml 1120 ml 500 ml Results Result Diagram: 01/17/17 0545 01/17/17 0545 Results 24 hrs Laboratory Tests Test 01/16/17 17:22 01/16/17 19:54 01/16/17 21:16 01/17/17 05:45 Bedside Glucose 104 129 111 White Blood Count 17.4 H Red Blood Count 3.29 #L Hemoglobin 9.3 #L Hematocrit 28.1 #L Mean Corpuscular Volume 85.4 Mean Corpuscular Hemoglobin 28.3 L Mean Corpuscular Hemoglobin Concent 33.1 Red Cell Distribution Width 14.5 Platelet Count 249 Mean Platelet Volume 10.9 H Neutrophils % 85.1 H Lymphocytes % 5.2 L Monocytes % 8.6 Eosinophils % 0.3 Basophils % 0.2 Nucleated Red Blood Cells % 0.0 Neutrophils # 14.8 H Lymphocytes # 0.9 Monocytes # 1.5 H Eosinophils # 0.1 Basophils # 0.0 Nucleated Red Blood Cells # 0.0 Sodium Level 133 L Potassium Level 3.9 Chloride Level 107 Carbon Dioxide Level 22 Anion Gap 8 Blood Urea Nitrogen 16 Creatinine 0.65 Glucose Level 78 Calcium Level 8.3 L Test 01/17/17 08:04 01/17/17 08:41 01/17/17 08:59 01/17/17 09:20 Bedside Glucose 65 L 77 93 112 Test 01/17/17 12:11 Bedside Glucose 121 Medications Medications Current Medications Aspirin (Halfprin) 81 mg DAILY PO Last administered on 01/17/17 08:11; Admin Dose 81 MG; Start 12/27/16 at 09:00 Benazepril HCl (Lotensin) 10 mg DAILY PO Last administered on 01/17/17 08:11; Admin Dose 10 MG; Start 12/27/16 at 09:00 Clopidogrel Bisulfate (plaVIX) 75 mg DAILY PO Last administered on 01/17/17 08 :11; Admin Dose 75 MG; Start 12/27/16 at 09:00 Famotidine (Pepcid) 40 mg HS PO Last administered on 01/16/17 20:29; Admin Dose 40 MG; Start 12/26/16 at 21:00 Folic Acid (Folic Acid) 1 mg DAILY PO Last administered on 01/17/17 08:12; Admin Dose 1 MG; Start 12/27/16 at 09:00 Gabapentin (Neurontin) 100 mg TID PO Last administered on 01/17/17 08:11; Admin Dose 100 MG; Start 12/26/16 at 21:00 Metoprolol Tartrate (Lopressor) 75 mg BID PO Last administered on 01/17/17 08: 12; Admin Dose 75 MG; Start 12/26/16 at 21:00 Mycophenolate Mofetil (Cellcept) 1,000 mg BID PO Last administered on 9/29/ 17at 08:12; Admin Dose 1,000 MG; Start 12/26/16 at 21:00 Pantoprazole (Protonix Tab) 40 mg DAILY@06 PO Last administered on 01/17/17 05 :31; Admin Dose 40 MG; Start 12/27/16 at 06:00 Diagnostic Test (Pha) (Accu-Chek) 1 ea 02 XX ; Start 12/27/16 at 02:00 Miscellaneous Information 1 ea NOTE XX ; Start 12/26/16 at 14:30 Glucose (Glutose) 15 gm Q15M PRN PO DECREASED GLUCOSE; Start 12/26/16 at 14:30 Glucose (Glutose) 22.5 gm Q15M PRN PO DECREASED GLUCOSE; Start 12/26/16 at 14:30 Dextrose (D50w Syringe) 25 ml Q15M PRN IV DECREASED GLUCOSE; Start 12/26/16 at 14:30 Dextrose (D50w Syringe) 50 ml Q15M PRN IV DECREASED GLUCOSE; Start 12/26/16 at 14:30 Glucagon (Glucagen) 1 mg Q15M PRN IM DECREASED GLUCOSE; Start 12/26/16 at 14:30 Glucose (Glutose) 15 gm Q15M PRN BUCCAL DECREASED GLUCOSE; Start 12/26/16 at 14: 30 Acetaminophen/ Hydrocodone Bitart ([place] (5/325)) 1 tab Q8 PO Last administered on 01/17/17 05:34; Admin Dose 1 TAB; Start 12/26/16 at 22:00 Cholecalciferol (Vitamin D) 1,000 unit DAILY PO Last administered on 01/17/17 08:12; Admin Dose 1,000 UNIT; Start 12/28/16 at 09:00 Ondansetron HCl 4 mg 4 mg Q6H PRN IV NAUSEA AND/OR VOMITING Last administered on 01/15/17 09:50; Admin Dose 4 MG; Start 01/01/17 at 10:00 Ertapenem/Sodium Chloride (Invanz/NS) 100 ml @ 200 mls/hr Q24H IVPB Last administered on 01/16/17 15:48; Admin Dose 200 MLS/HR; Start 01/06/17 at 14:30 Haloperidol (Haldol) 2 mg Q4H PRN IM AGITATION/ANXIETY Last administered on 22:46; Admin Dose 2 MG; Start 01/08/17 at 01:30 Acetaminophen (Tylenol Tab) 650 mg Q6H PRN PO PAIN AND OR ELEVATED TEMP Last administered on 01/16/17 10:25; Admin Dose 650 MG; Start 01/08/17 at 22:30 Quetiapine Fumarate (Seroquel) 25 mg QHS PRN PO agitation/hallucinations Last administered on 01/09/17 22:15; Admin Dose 25 MG; Start 01/09/17 at 21:00 Morphine Sulfate (morphine) 2 mg Q8H PRN IV PAIN LEVEL 6-10 Last administered on 01/15/17 15:59; Admin Dose 2 MG; Start 01/11/17 at 14:00 Tacrolimus (Prograf) 2 mg Q12 PO Last administered on 01/17/17 08:11; Admin Dose 2 MG; Start 01/11/17 at 21:00 Clonidine (Catapres) 0.1 mg Q6H PRN PO hypertension Last administered on 02:41; Admin Dose 0.1 MG; Start 01/14/17 at 02:30 Hydralazine HCl (Apresoline) 25 mg Q6H PRN IV ELEVATED SYSTOLIC BP Last administered on 01/14/17 07:04; Admin Dose 25 MG; Start 01/14/17 at 07:00 Insulin Glargine (Lantus) 5 unit DAILY@20 SC ; Start 01/17/17 at 20:00 JACQUES HUERTA NP Jan 17, 2017 13:16
[2017-01-17] MEDS: ERTAPENEM SODIUM 1 GM in SOD CHLORIDE 0.9% 100 ML IVPB SCH (13:53)
[2017-01-17 14:00] VITALS: BP 141/88; RESP 20
[2017-01-17] MEDS: VANCOMYCIN HCL 250 MG/5ML POSYG PO SCH (17:16)
--- NOTE | 2017-01-17 17:53 | CONS ---
Date/Time of Note Date/Time of Note DATE: 01/17/17 TIME: 17:51 Assessment/Plan Assessment/Plan Chief Complaint/Hosp Course IMP: 1.Raw-oh-yhuomh test 10/2016 with no ischemia/only scar/NL EF. Negative trop x 3. 2.HTN-labile but reasonable control 3.PAD with bilateral gangrene s/p L LE amputation 4.DM 5.Anemia 6. Encephalopathy Recc: -Continuer asa/plavix -Cointinue benazepril/metoprolol -Local wound care -Continue abx's and f/u cx data Problems: Consultation Date/Type/Reason Admit Date/Time Dec 26, 2016 at 13:22 Initial Consult Date 12/27/16 Type of Consultation: cardiology Reason for Consultation HTN Referring Provider: LES GILLILAND Exam/Review of Systems Vital Signs Vitals Vital Signs Date Time Temp Pulse Resp B/P Pulse Ox O2 Delivery O2 Flow Rate FiO2 01/17/17 14:00 98.6 64 20 141/88 96 01/13/17 19:25 Nasal Cannula 2.0 Intake and Output 01/16/17 01/16/17 01/17/17 15:00 23:00 07:00 Intake Total 300 ml 1120 ml 1300 ml Output Total 800 ml Balance 300 ml 1120 ml 500 ml Exam Review of Systems: CONSTITUTIONAL: No fevers, chills. PULMONARY: No sob CARDIOVASCULAR: No chest pain/palpitations GASTROINTESTINAL: No nausea/vomiting. GENITOURINARY: No hematuria/dysuria. MUSCULOSKELETAL: mild pain in foot PSYCHIATRIC: The patient denies depression. NEUROLOGIC: No weakness Constitutional: alert Head: normocephalic ENMT: mucosa pink and moist Neck: supple Respiratory: clear to auscultation Cardiovascular: regular rate and rhythm Gastrointestinal: non-tender, soft Musculoskeletal: other (s/p L LE amputation) Extremities: edema (none), other (RLE ankle/foot covered by dressing) Results Result Diagram: 01/17/17 0545 01/17/17 0545 Results 24 hrs Laboratory Tests Test 01/16/17 19:54 01/16/17 21:16 01/17/17 05:45 01/17/17 08:04 Bedside Glucose 129 111 65 L White Blood Count 17.4 H Red Blood Count 3.29 #L Hemoglobin 9.3 #L Hematocrit 28.1 #L Mean Corpuscular Volume 85.4 Mean Corpuscular Hemoglobin 28.3 L Mean Corpuscular Hemoglobin Concent 33.1 Red Cell Distribution Width 14.5 Platelet Count 249 Mean Platelet Volume 10.9 H Neutrophils % 85.1 H Lymphocytes % 5.2 L Monocytes % 8.6 Eosinophils % 0.3 Basophils % 0.2 Nucleated Red Blood Cells % 0.0 Neutrophils # 14.8 H Lymphocytes # 0.9 Monocytes # 1.5 H Eosinophils # 0.1 Basophils # 0.0 Nucleated Red Blood Cells # 0.0 Sodium Level 133 L Potassium Level 3.9 Chloride Level 107 Carbon Dioxide Level 22 Anion Gap 8 Blood Urea Nitrogen 16 Creatinine 0.65 Glucose Level 78 Calcium Level 8.3 L Test 01/17/17 08:41 01/17/17 08:59 01/17/17 09:20 01/17/17 12:11 Bedside Glucose 77 93 112 121 Test 01/17/17 17:16 Bedside Glucose 125 Medications Medications Current Medications Aspirin (Halfprin) 81 mg DAILY PO Last administered on 01/17/17 08:11; Admin Dose 81 MG; Start 12/27/16 at 09:00 Benazepril HCl (Lotensin) 10 mg DAILY PO Last administered on 01/17/17 08:11; Admin Dose 10 MG; Start 12/27/16 at 09:00 Clopidogrel Bisulfate (plaVIX) 75 mg DAILY PO Last administered on 01/17/17 08 :11; Admin Dose 75 MG; Start 12/27/16 at 09:00 Famotidine (Pepcid) 40 mg HS PO Last administered on 01/16/17 20:29; Admin Dose 40 MG; Start 12/26/16 at 21:00 Folic Acid (Folic Acid) 1 mg DAILY PO Last administered on 01/17/17 08:12; Admin Dose 1 MG; Start 12/27/16 at 09:00 Gabapentin (Neurontin) 100 mg TID PO Last administered on 01/17/17 13:52; Admin Dose 100 MG; Start 12/26/16 at 21:00 Metoprolol Tartrate (Lopressor) 75 mg BID PO Last administered on 01/17/17 08: 12; Admin Dose 75 MG; Start 12/26/16 at 21:00 Mycophenolate Mofetil (Cellcept) 1,000 mg BID PO Last administered on 08:12; Admin Dose 1,000 MG; Start 12/26/16 at 21:00 Pantoprazole (Protonix Tab) 40 mg DAILY@06 PO Last administered on 01/17/17 05 :31; Admin Dose 40 MG; Start 12/27/16 at 06:00 Diagnostic Test (Pha) (Accu-Chek) 1 ea 02 XX ; Start 12/27/16 at 02:00 Miscellaneous Information 1 ea NOTE XX ; Start 12/26/16 at 14:30 Glucose (Glutose) 15 gm Q15M PRN PO DECREASED GLUCOSE; Start 12/26/16 at 14:30 Glucose (Glutose) 22.5 gm Q15M PRN PO DECREASED GLUCOSE; Start 12/26/16 at 14:30 Dextrose (D50w Syringe) 25 ml Q15M PRN IV DECREASED GLUCOSE; Start 12/26/16 at 14:30 Dextrose (D50w Syringe) 50 ml Q15M PRN IV DECREASED GLUCOSE; Start 12/26/16 at 14:30 Glucagon (Glucagen) 1 mg Q15M PRN IM DECREASED GLUCOSE; Start 12/26/16 at 14:30 Glucose (Glutose) 15 gm Q15M PRN BUCCAL DECREASED GLUCOSE; Start 12/26/16 at 14: 30 Acetaminophen/ Hydrocodone Bitart ([place] (5/325)) 1 tab Q8 PO Last administered on 01/17/17 13:52; Admin Dose 1 TAB; Start 12/26/16 at 22:00 Cholecalciferol (Vitamin D) 1,000 unit DAILY PO Last administered on 01/17/17 08:12; Admin Dose 1,000 UNIT; Start 12/28/16 at 09:00 Ondansetron HCl 4 mg 4 mg Q6H PRN IV NAUSEA AND/OR VOMITING Last administered on 01/15/17 09:50; Admin Dose 4 MG; Start 01/01/17 at 10:00 Ertapenem/Sodium Chloride (Invanz/NS) 100 ml @ 200 mls/hr Q24H IVPB Last administered on 01/17/17 13:53; Admin Dose 200 MLS/HR; Start 01/06/17 at 14:30 Haloperidol (Haldol) 2 mg Q4H PRN IM AGITATION/ANXIETY Last administered on 22:46; Admin Dose 2 MG; Start 01/08/17 at 01:30 Acetaminophen (Tylenol Tab) 650 mg Q6H PRN PO PAIN AND OR ELEVATED TEMP Last administered on 01/16/17 10:25; Admin Dose 650 MG; Start 01/08/17 at 22:30 Quetiapine Fumarate (Seroquel) 25 mg QHS PRN PO agitation/hallucinations Last administered on 01/09/17 22:15; Admin Dose 25 MG; Start 01/09/17 at 21:00 Morphine Sulfate (morphine) 2 mg Q8H PRN IV PAIN LEVEL 6-10 Last administered on 01/15/17 15:59; Admin Dose 2 MG; Start 01/11/17 at 14:00 Tacrolimus (Prograf) 2 mg Q12 PO Last administered on 01/17/17 08:11; Admin Dose 2 MG; Start 01/11/17 at 21:00 Clonidine (Catapres) 0.1 mg Q6H PRN PO hypertension Last administered on 02:41; Admin Dose 0.1 MG; Start 01/14/17 at 02:30 Hydralazine HCl (Apresoline) 25 mg Q6H PRN IV ELEVATED SYSTOLIC BP Last administered on 01/14/17 07:04; Admin Dose 25 MG; Start 01/14/17 at 07:00 Insulin Glargine (Lantus) 5 unit DAILY@20 SC ; Start 01/17/17 at 20:00 Vancomycin HCl (Vancomycin Oral Syringe) 125 mg Q6 PO Last administered on 01/17 17:16; Admin Dose 125 MG; Start 01/17/17 at 18:00 TIMOTHY CORTES Jan 17, 2017 17:53
--- NOTE | 2017-01-17 18:07 | CONS ---
Date/Time of Note Date/Time of Note DATE: 01/17/17 TIME: 18:07 Assessment/Plan Assessment/Plan Additional Assessment/Plan 1. 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 h/o donor kidney transplant in 2009 at [facility], currently on immunosuppression with Prograf, CellCept 4. 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 History of hypertension. 6. History of diabetes mellitus. 7. History of previous left upper extremity arteriovenous fistula. 8. Hyponatremia due to hypovolemic hyponatremia post op 9. -CT chest+ abd+pelvis with and without contrast negative for mass/LAD/ Malignancy Plan: continue Current immunosuppression Prograf and cellcept, Cr normal, s/p Left AKA- Post op care as per surgery Conitnue NS at 75 cc/hr, electrolytes stable , na 133 IV abx as per ID will follow up Consultation Date/Type/Reason Admit Date/Time Dec 26, 2016 at 13:22 Initial Consult Date 12/27/16 Type of Consultation: NEPHROLOGY Referring Provider: LES GILLILAND 24 HR Interval Summary Free Text/Dictation Na 133, Cr normal, BP stable Exam/Review of Systems Vital Signs Vitals Vital Signs Date Time Temp Pulse Resp B/P Pulse Ox O2 Delivery O2 Flow Rate FiO2 01/17/17 14:00 98.6 64 20 141/88 96 01/13/17 19:25 Nasal Cannula 2.0 Intake and Output 01/16/17 01/16/17 01/17/17 15:00 23:00 07:00 Intake Total 300 ml 1120 ml 1300 ml Output Total 800 ml Balance 300 ml 1120 ml 500 ml Exam GEN: fragile elderly woman who is awake in no distress. HEENT: Head atraumatic, normocephalic. Sclerae anicteric. NECK: Supple. CHEST: Rise symmetrical. Breath sounds clear. HEART: S1, S2. ABDOMEN: Soft, bowel sounds present. left BKA dressing clean Results Result Diagram: 01/17/17 0545 01/17/17 0545 Results 24 hrs Laboratory Tests Test 01/16/17 19:54 01/16/17 21:16 01/17/17 05:45 01/17/17 08:04 Bedside Glucose 129 111 65 L White Blood Count 17.4 H Red Blood Count 3.29 #L Hemoglobin 9.3 #L Hematocrit 28.1 #L Mean Corpuscular Volume 85.4 Mean Corpuscular Hemoglobin 28.3 L Mean Corpuscular Hemoglobin Concent 33.1 Red Cell Distribution Width 14.5 Platelet Count 249 Mean Platelet Volume 10.9 H Neutrophils % 85.1 H Lymphocytes % 5.2 L Monocytes % 8.6 Eosinophils % 0.3 Basophils % 0.2 Nucleated Red Blood Cells % 0.0 Neutrophils # 14.8 H Lymphocytes # 0.9 Monocytes # 1.5 H Eosinophils # 0.1 Basophils # 0.0 Nucleated Red Blood Cells # 0.0 Sodium Level 133 L Potassium Level 3.9 Chloride Level 107 Carbon Dioxide Level 22 Anion Gap 8 Blood Urea Nitrogen 16 Creatinine 0.65 Glucose Level 78 Calcium Level 8.3 L Test 01/17/17 08:41 01/17/17 08:59 01/17/17 09:20 01/17/17 12:11 Bedside Glucose 77 93 112 121 Test 01/17/17 17:16 Bedside Glucose 125 Medications Medications Current Medications Aspirin (Halfprin) 81 mg DAILY PO Last administered on 01/17/17 08:11; Admin Dose 81 MG; Start 12/27/16 at 09:00 Benazepril HCl (Lotensin) 10 mg DAILY PO Last administered on 01/17/17 08:11; Admin Dose 10 MG; Start 12/27/16 at 09:00 Clopidogrel Bisulfate (plaVIX) 75 mg DAILY PO Last administered on 01/17/17 08 :11; Admin Dose 75 MG; Start 12/27/16 at 09:00 Famotidine (Pepcid) 40 mg HS PO Last administered on 01/16/17 20:29; Admin Dose 40 MG; Start 12/26/16 at 21:00 Folic Acid (Folic Acid) 1 mg DAILY PO Last administered on 01/17/17 08:12; Admin Dose 1 MG; Start 12/27/16 at 09:00 Gabapentin (Neurontin) 100 mg TID PO Last administered on 01/17/17 13:52; Admin Dose 100 MG; Start 12/26/16 at 21:00 Metoprolol Tartrate (Lopressor) 75 mg BID PO Last administered on 01/17/17 08: 12; Admin Dose 75 MG; Start 12/26/16 at 21:00 Mycophenolate Mofetil (Cellcept) 1,000 mg BID PO Last administered on 08:12; Admin Dose 1,000 MG; Start 12/26/16 at 21:00 Pantoprazole (Protonix Tab) 40 mg DAILY@06 PO Last administered on 01/17/17 05 :31; Admin Dose 40 MG; Start 12/27/16 at 06:00 Diagnostic Test (Pha) (Accu-Chek) 1 ea 02 XX ; Start 12/27/16 at 02:00 Miscellaneous Information 1 ea NOTE XX ; Start 12/26/16 at 14:30 Glucose (Glutose) 15 gm Q15M PRN PO DECREASED GLUCOSE; Start 12/26/16 at 14:30 Glucose (Glutose) 22.5 gm Q15M PRN PO DECREASED GLUCOSE; Start 12/26/16 at 14:30 Dextrose (D50w Syringe) 25 ml Q15M PRN IV DECREASED GLUCOSE; Start 12/26/16 at 14:30 Dextrose (D50w Syringe) 50 ml Q15M PRN IV DECREASED GLUCOSE; Start 12/26/16 at 14:30 Glucagon (Glucagen) 1 mg Q15M PRN IM DECREASED GLUCOSE; Start 12/26/16 at 14:30 Glucose (Glutose) 15 gm Q15M PRN BUCCAL DECREASED GLUCOSE; Start 12/26/16 at 14: 30 Acetaminophen/ Hydrocodone Bitart ([place] (5/325)) 1 tab Q8 PO Last administered on 01/17/17 13:52; Admin Dose 1 TAB; Start 12/26/16 at 22:00 Cholecalciferol (Vitamin D) 1,000 unit DAILY PO Last administered on 01/17/17 08:12; Admin Dose 1,000 UNIT; Start 12/28/16 at 09:00 Ondansetron HCl 4 mg 4 mg Q6H PRN IV NAUSEA AND/OR VOMITING Last administered on 01/15/17 09:50; Admin Dose 4 MG; Start 01/01/17 at 10:00 Ertapenem/Sodium Chloride (Invanz/NS) 100 ml @ 200 mls/hr Q24H IVPB Last administered on 01/17/17 13:53; Admin Dose 200 MLS/HR; Start 01/06/17 at 14:30 Haloperidol (Haldol) 2 mg Q4H PRN IM AGITATION/ANXIETY Last administered on 22:46; Admin Dose 2 MG; Start 01/08/17 at 01:30 Acetaminophen (Tylenol Tab) 650 mg Q6H PRN PO PAIN AND OR ELEVATED TEMP Last administered on 01/16/17 10:25; Admin Dose 650 MG; Start 01/08/17 at 22:30 Quetiapine Fumarate (Seroquel) 25 mg QHS PRN PO agitation/hallucinations Last administered on 01/09/17 22:15; Admin Dose 25 MG; Start 01/09/17 at 21:00 Morphine Sulfate (morphine) 2 mg Q8H PRN IV PAIN LEVEL 6-10 Last administered on 01/15/17 15:59; Admin Dose 2 MG; Start 01/11/17 at 14:00 Tacrolimus (Prograf) 2 mg Q12 PO Last administered on 01/17/17 08:11; Admin Dose 2 MG; Start 01/11/17 at 21:00 Clonidine (Catapres) 0.1 mg Q6H PRN PO hypertension Last administered on 02:41; Admin Dose 0.1 MG; Start 01/14/17 at 02:30 Hydralazine HCl (Apresoline) 25 mg Q6H PRN IV ELEVATED SYSTOLIC BP Last administered on 01/14/17 07:04; Admin Dose 25 MG; Start 01/14/17 at 07:00 Insulin Glargine (Lantus) 5 unit DAILY@20 SC ; Start 01/17/17 at 20:00 Vancomycin HCl (Vancomycin Oral Syringe) 125 mg Q6 PO Last administered on 01/17 17:16; Admin Dose 125 MG; Start 01/17/17 at 18:00 RAMON KEMP MD Jan 17, 2017 18:07
--- NOTE | 2017-01-17 18:55 | PN ---
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 However, at the moment no significant rest pain reported -Optimize vascular status (BP medications, diet, nutrition and exercise, sugar control, antiplatelets). 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 -Thank you for allowing us to partake in the care of your patient. Please call with any questions. Problems: Subjective 24 Hr Interval Summary Constitutional: improved, no complaints Exam/Review of Systems Vital Signs Vitals Vital Signs Date Time Temp Pulse Resp B/P Pulse Ox O2 Delivery O2 Flow Rate FiO2 01/17/17 14:00 98.6 64 20 141/88 96 01/13/17 19:25 Nasal Cannula 2.0 Intake and Output 01/16/17 01/16/17 01/17/17 14:59 22:59 06:59 Intake Total 300 ml 1120 ml 1300 ml Output Total 800 ml Balance 300 ml 1120 ml 500 ml Exam Free Text/Dictation Left AKA-stump intact and dry, cap refill 2-3 seconds Results Result Diagram: 01/17/17 0545 01/17/17 0545 WILD DUARTE MD Jan 17, 2017 18:55
[2017-01-17] MEDS: INSULIN GLARGINE [LANtus] 3 ML PEN SC SCH (20:16)
--- NOTE | 2017-01-17 20:29 | PN ---
Date/Time of Note Date/Time of Note DATE: 01/17/17 TIME: 20:27 Assessment/Plan VTE Prophylaxis VTE Prophylaxis Intervention: SCD's Lines/Catheters IV Catheter Type (from [facility]): [facility] Urinary Cath still in place: No Assessment/Plan Chief Complaint/Hosp Course Patient complaint complains of loose stools, persistent leukocytosis and bilateral lower extremities pain. Pending stool for C difficile Assessment/Plan - Acute encephalopathy, resolved. CT brain is negative for any acute pathology. 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 S/p left AKA 01/[address] Valencia, vascular surgery. - Diabetes mellitus type II. Continue Lantus and NovoLog. - History of kidney transplant in 2009, on immunosuppressive therapy. - Hypertension. 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 - Anemia of chronic kidney disease. Further recommendations based on clinical course. Plan of care discussed with Dr. Cohen Problems: Exam/Review of Systems Vital Signs Vitals Vital Signs Date Time Temp Pulse Resp B/P Pulse Ox O2 Delivery O2 Flow Rate FiO2 01/17/17 14:00 98.6 64 20 141/88 96 01/13/17 19:25 Nasal Cannula 2.0 Intake and Output 01/16/17 01/16/17 01/17/17 15:00 23:00 07:00 Intake Total 300 ml 1120 ml 1300 ml Output Total 800 ml Balance 300 ml 1120 ml 500 ml Exam Constitutional: awake, alert Neck: supple Respiratory: clear to auscultation Cardiovascular: nl pulses Gastrointestinal: non-tender, soft Extremities: other (S/p LAKA) Results Result Diagram: 01/17/17 0545 01/17/17 0545 Results 24 hrs Laboratory Tests Test 01/16/17 21:16 01/17/17 05:45 01/17/17 08:04 01/17/17 08:41 Bedside Glucose 111 65 L 77 White Blood Count 17.4 H Red Blood Count 3.29 #L Hemoglobin 9.3 #L Hematocrit 28.1 #L Mean Corpuscular Volume 85.4 Mean Corpuscular Hemoglobin 28.3 L Mean Corpuscular Hemoglobin Concent 33.1 Red Cell Distribution Width 14.5 Platelet Count 249 Mean Platelet Volume 10.9 H Neutrophils % 85.1 H Lymphocytes % 5.2 L Monocytes % 8.6 Eosinophils % 0.3 Basophils % 0.2 Nucleated Red Blood Cells % 0.0 Neutrophils # 14.8 H Lymphocytes # 0.9 Monocytes # 1.5 H Eosinophils # 0.1 Basophils # 0.0 Nucleated Red Blood Cells # 0.0 Sodium Level 133 L Potassium Level 3.9 Chloride Level 107 Carbon Dioxide Level 22 Anion Gap 8 Blood Urea Nitrogen 16 Creatinine 0.65 Glucose Level 78 Calcium Level 8.3 L Test 01/17/17 08:59 01/17/17 09:20 01/17/17 12:11 01/17/17 17:16 Bedside Glucose 93 112 121 125 Medications Medications Current Medications Aspirin (Halfprin) 81 mg DAILY PO Last administered on 01/17/17 08:11; Admin Dose 81 MG; Start 12/27/16 at 09:00 Benazepril HCl (Lotensin) 10 mg DAILY PO Last administered on 01/17/17 08:11; Admin Dose 10 MG; Start 12/27/16 at 09:00 Clopidogrel Bisulfate (plaVIX) 75 mg DAILY PO Last administered on 01/17/17 08 :11; Admin Dose 75 MG; Start 12/27/16 at 09:00 Famotidine (Pepcid) 40 mg HS PO Last administered on 01/16/17 20:29; Admin Dose 40 MG; Start 12/26/16 at 21:00 Folic Acid (Folic Acid) 1 mg DAILY PO Last administered on 01/17/17 08:12; Admin Dose 1 MG; Start 12/27/16 at 09:00 Gabapentin (Neurontin) 100 mg TID PO Last administered on 01/17/17 13:52; Admin Dose 100 MG; Start 12/26/16 at 21:00 Metoprolol Tartrate (Lopressor) 75 mg BID PO Last administered on 01/17/17 08: 12; Admin Dose 75 MG; Start 12/26/16 at 21:00 Mycophenolate Mofetil (Cellcept) 1,000 mg BID PO Last administered on 08:12; Admin Dose 1,000 MG; Start 12/26/16 at 21:00 Pantoprazole (Protonix Tab) 40 mg DAILY@06 PO Last administered on 01/17/17 05 :31; Admin Dose 40 MG; Start 12/27/16 at 06:00 Diagnostic Test (Pha) (Accu-Chek) 1 ea 02 XX ; Start 12/27/16 at 02:00 Miscellaneous Information 1 ea NOTE XX ; Start 12/26/16 at 14:30 Glucose (Glutose) 15 gm Q15M PRN PO DECREASED GLUCOSE; Start 12/26/16 at 14:30 Glucose (Glutose) 22.5 gm Q15M PRN PO DECREASED GLUCOSE; Start 12/26/16 at 14:30 Dextrose (D50w Syringe) 25 ml Q15M PRN IV DECREASED GLUCOSE; Start 12/26/16 at 14:30 Dextrose (D50w Syringe) 50 ml Q15M PRN IV DECREASED GLUCOSE; Start 12/26/16 at 14:30 Glucagon (Glucagen) 1 mg Q15M PRN IM DECREASED GLUCOSE; Start 12/26/16 at 14:30 Glucose (Glutose) 15 gm Q15M PRN BUCCAL DECREASED GLUCOSE; Start 12/26/16 at 14: 30 Acetaminophen/ Hydrocodone Bitart ([place] (5/325)) 1 tab Q8 PO Last administered on 01/17/17 13:52; Admin Dose 1 TAB; Start 12/26/16 at 22:00 Cholecalciferol (Vitamin D) 1,000 unit DAILY PO Last administered on 01/17/17 08:12; Admin Dose 1,000 UNIT; Start 12/28/16 at 09:00 Ondansetron HCl 4 mg 4 mg Q6H PRN IV NAUSEA AND/OR VOMITING Last administered on 01/15/17 09:50; Admin Dose 4 MG; Start 01/01/17 at 10:00 Ertapenem/Sodium Chloride (Invanz/NS) 100 ml @ 200 mls/hr Q24H IVPB Last administered on 01/17/17 13:53; Admin Dose 200 MLS/HR; Start 01/06/17 at 14:30 Haloperidol (Haldol) 2 mg Q4H PRN IM AGITATION/ANXIETY Last administered on 22:46; Admin Dose 2 MG; Start 01/08/17 at 01:30 Acetaminophen (Tylenol Tab) 650 mg Q6H PRN PO PAIN AND OR ELEVATED TEMP Last administered on 01/16/17 10:25; Admin Dose 650 MG; Start 01/08/17 at 22:30 Quetiapine Fumarate (Seroquel) 25 mg QHS PRN PO agitation/hallucinations Last administered on 01/09/17 22:15; Admin Dose 25 MG; Start 01/09/17 at 21:00 Morphine Sulfate (morphine) 2 mg Q8H PRN IV PAIN LEVEL 6-10 Last administered on 01/15/17 15:59; Admin Dose 2 MG; Start 01/11/17 at 14:00 Tacrolimus (Prograf) 2 mg Q12 PO Last administered on 01/17/17 08:11; Admin Dose 2 MG; Start 01/11/17 at 21:00 Clonidine (Catapres) 0.1 mg Q6H PRN PO hypertension Last administered on 02:41; Admin Dose 0.1 MG; Start 01/14/17 at 02:30 Hydralazine HCl (Apresoline) 25 mg Q6H PRN IV ELEVATED SYSTOLIC BP Last administered on 01/14/17 07:04; Admin Dose 25 MG; Start 01/14/17 at 07:00 Insulin Glargine (Lantus) 5 unit DAILY@20 SC Last administered on 01/17/17 20: 16; Admin Dose 5 UNIT; Start 01/17/17 at 20:00 Vancomycin HCl (Vancomycin Oral Syringe) 125 mg Q6 PO Last administered on 01/17 17:16; Admin Dose 125 MG; Start 01/17/17 at 18:00 LES GILLILAND Jan 17, 2017 20:29
[2017-01-17 20:59] VITALS: BP 133/78; PULSE 97; RESP 18
[2017-01-17] MEDS: FAMOTIDINE 20 MG TAB PO SCH (21:02)
[2017-01-17 22:01] VITALS: BP 113/78; RESP 18
[2017-01-18] MEDS: VANCOMYCIN HCL 250 MG/5ML POSYG PO SCH ×4 (00:09→17:39)
[2017-01-18 02:00] VITALS: BP 135/78; RESP 19
[2017-01-18] MEDS: ACCU-CHEK XX SCH (02:00)
[2017-01-18] MEDS: morphine 2 MG INJ IV PRN (02:28)
[2017-01-18] MEDS: HYDROCODONE/APAP (5/325) TAB PO SCH ×3 (05:20→21:51)
[2017-01-18] MEDS: PANTOPRAZOLE (EC) 40 MG TAB PO SCH (05:20)
[2017-01-18 08:00] VITALS: BP 161/82; RESP 20
[2017-01-18] MEDS: INSULIN ASPART [NOVOLOG] 3 ML PEN SC SCH ×4 (08:00→20:50)
[2017-01-18] MEDS: CHOLECALCIFEROL 1,000 UNIT TAB PO SCH (08:18)
[2017-01-18] MEDS: FOLIC ACID 1 MG TAB PO SCH (08:18)
[2017-01-18] MEDS: MYCOPHENOLATE 250 MG CAP PO SCH ×2 (08:18→20:49)
[2017-01-18] MEDS: METOPROLOL 25 MG TAB PO SCH ×2 (08:19→20:52)
[2017-01-18] MEDS: ASPIRIN (EC) 81 MG TAB PO SCH (08:19)
[2017-01-18] MEDS: GABAPENTIN 100 MG CAP PO SCH ×3 (08:19→20:49)
[2017-01-18] MEDS: CLOPIDOGREL 75 MG TAB PO SCH (08:19)
[2017-01-18] MEDS: BENAZEPRIL 10 MG TAB PO SCH (08:20)
[2017-01-18] MEDS: TACROLIMUS 1 MG CAP PO SCH ×2 (09:42→20:49)
[2017-01-18 09:45] VITALS: BP 145/78; PULSE 73
[2017-01-18 11:44] LABS: ABNORMAL IP MESSAGE 1; BASOPHILS % 0.1 % (0.0-2.0); EOSINOPHILS # 0.1 10^3/ul (0.0-0.5); HEMATOCRIT 29.1 % (37.0-47.0); HEMOGLOBIN 9.8 g/dl (12.0-16.0); LYMPHOCYTES # 0.9 10^3/ul (0.8-2.9); LYMPHOCYTES % 6.8 % (15.0-51.0); MEAN CORPUSCULAR HEMOGLOBIN 28.2 pg (29.0-33.0); MEAN CORPUSCULAR HGB CONC 33.7 g/dl (32.0-37.0); MEAN CORPUSCULAR VOLUME 83.9 fl (82.0-101.0); MEAN PLATELET VOLUME 10.8 fl (7.4-10.4); MONOCYTE # 1.7 10^3/ul (0.3-0.9); MONOCYTES % 12.3 % (0.0-11.0); NEUTROPHIL # 10.7 10^3/ul (1.6-7.5); NEUTROPHILS % 79.4 % (39.0-77.0); PLATELET COUNT 255 10^3/UL (140-415); RED BLOOD COUNT 3.47 10^6/ul (4.20-5.40); RED CELL DISTRIBUTION WIDTH 14.6 % (11.5-14.5); WHITE BLOOD COUNT 13.5 10^3/ul (4.8-10.8)
[2017-01-18 11:47] LABS: POSITIVE DIFF @See below
[2017-01-18 11:53] LABS: CALCIUM 8.5 mg/dl (8.4-10.2); CREATININE 0.54 mg/dl (0.44-1.00); POTASSIUM 3.9 mmol/L (3.5-5.1)
[2017-01-18] MEDS ORDERED: LIDOCAINE 1% (MPF) 5 ML VIAL SC ONE (12:30)
--- NOTE | 2017-01-18 13:06 | PN ---
Date/Time of Note Date/Time of Note DATE: 01/18/17 TIME: 13:05 Assessment/Plan VTE Prophylaxis VTE Prophylaxis Intervention: other Lines/Catheters IV Catheter Type (from [facility]): Sal[facility] Urinary Cath still in place: No Assessment/Plan Chief Complaint/Hosp Course - Acute encephalopathy, resolved. CT brain is negative for any acute pathology. 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 S/p left AKA 01/[address] Valencia, vascular surgery. - Diabetes mellitus type II. Continue Lantus and NovoLog. - History of kidney transplant in 2009, on immunosuppressive therapy. - Hypertension. 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 - Anemia of chronic kidney disease. Problems: Subjective 24 Hr Interval Summary Free Text/Dictation Patient has no complaints Exam/Review of Systems Vital Signs Vitals Vital Signs Date Time Temp Pulse Resp B/P Pulse Ox O2 Delivery O2 Flow Rate FiO2 01/18/17 09:45 73 145/78 01/18/17 08:00 97.8 20 97 Intake and Output 01/17/17 01/17/17 01/18/17 15:00 23:00 07:00 Intake Total 100 ml 600 ml 700 ml Output Total 100 ml Balance 100 ml 500 ml 700 ml Exam Constitutional: well developed Head: atraumatic, normocephalic Neck: supple Respiratory: clear to auscultation Cardiovascular: regular rate and rhythm Gastrointestinal: non-tender, soft Extremities: normal pulses Results Result Diagram: 01/18/17 1110 01/18/17 1110 Results 24 hrs Laboratory Tests Test 01/17/17 17:16 01/17/17 20:14 01/17/17 21:08 01/18/17 06:02 Bedside Glucose 125 101 107 Lab Scanned Report BLOOD TRANSFUSION Test 01/18/17 08:17 01/18/17 11:10 01/18/17 11:43 Bedside Glucose 82 105 White Blood Count 13.5 #H Red Blood Count 3.47 L Hemoglobin 9.8 L Hematocrit 29.1 L Mean Corpuscular Volume 83.9 Mean Corpuscular Hemoglobin 28.2 L Mean Corpuscular Hemoglobin Concent 33.7 Red Cell Distribution Width 14.6 H Platelet Count 255 Mean Platelet Volume 10.8 H Neutrophils % 79.4 H Lymphocytes % 6.8 L Monocytes % 12.3 H Eosinophils % 1.0 Basophils % 0.1 Nucleated Red Blood Cells % 0.0 Neutrophils # 10.7 H Lymphocytes # 0.9 Monocytes # 1.7 H Eosinophils # 0.1 Basophils # 0.0 Nucleated Red Blood Cells # 0.0 Sodium Level 134 L Potassium Level 3.9 Chloride Level 106 Carbon Dioxide Level 22 Anion Gap 10 Blood Urea Nitrogen 9 Creatinine 0.54 Glucose Level 120 # Calcium Level 8.5 Medications Medications Current Medications Aspirin (Halfprin) 81 mg DAILY PO Last administered on 01/18/17 08:19; Admin Dose 81 MG; Start 12/27/16 at 09:00 Benazepril HCl (Lotensin) 10 mg DAILY PO Last administered on 01/18/17 08:20; Admin Dose 10 MG; Start 12/27/16 at 09:00 Clopidogrel Bisulfate (plaVIX) 75 mg DAILY PO Last administered on 01/18/17 08 :19; Admin Dose 75 MG; Start 12/27/16 at 09:00 Famotidine (Pepcid) 40 mg HS PO Last administered on 01/17/17 21:02; Admin Dose 40 MG; Start 12/26/16 at 21:00 Folic Acid (Folic Acid) 1 mg DAILY PO Last administered on 01/18/17 08:18; Admin Dose 1 MG; Start 12/27/16 at 09:00 Gabapentin (Neurontin) 100 mg TID PO Last administered on 01/18/17 13:04; Admin Dose 100 MG; Start 12/26/16 at 21:00 Metoprolol Tartrate (Lopressor) 75 mg BID PO Last administered on 01/18/17 08: 19; Admin Dose 75 MG; Start 12/26/16 at 21:00 Mycophenolate Mofetil (Cellcept) 1,000 mg BID PO Last administered on 08:18; Admin Dose 1,000 MG; Start 12/26/16 at 21:00 Pantoprazole (Protonix Tab) 40 mg DAILY@06 PO Last administered on 01/18/17 05 :20; Admin Dose 40 MG; Start 12/27/16 at 06:00 Diagnostic Test (Pha) (Accu-Chek) 1 ea 02 XX ; Start 12/27/16 at 02:00 Miscellaneous Information 1 ea NOTE XX ; Start 12/26/16 at 14:30 Glucose (Glutose) 15 gm Q15M PRN PO DECREASED GLUCOSE; Start 12/26/16 at 14:30 Glucose (Glutose) 22.5 gm Q15M PRN PO DECREASED GLUCOSE; Start 12/26/16 at 14:30 Dextrose (D50w Syringe) 25 ml Q15M PRN IV DECREASED GLUCOSE; Start 12/26/16 at 14:30 Dextrose (D50w Syringe) 50 ml Q15M PRN IV DECREASED GLUCOSE; Start 12/26/16 at 14:30 Glucagon (Glucagen) 1 mg Q15M PRN IM DECREASED GLUCOSE; Start 12/26/16 at 14:30 Glucose (Glutose) 15 gm Q15M PRN BUCCAL DECREASED GLUCOSE; Start 12/26/16 at 14: 30 Acetaminophen/ Hydrocodone Bitart ([place] (5/325)) 1 tab Q8 PO Last administered on 01/18/17 13:03; Admin Dose 1 TAB; Start 12/26/16 at 22:00 Cholecalciferol (Vitamin D) 1,000 unit DAILY PO Last administered on 01/18/17 08:18; Admin Dose 1,000 UNIT; Start 12/28/16 at 09:00 Ondansetron HCl 4 mg 4 mg Q6H PRN IV NAUSEA AND/OR VOMITING Last administered on 01/15/17 09:50; Admin Dose 4 MG; Start 01/01/17 at 10:00 Ertapenem/Sodium Chloride (Invanz/NS) 100 ml @ 200 mls/hr Q24H IVPB Last administered on 01/17/17 13:53; Admin Dose 200 MLS/HR; Start 01/06/17 at 14:30 Haloperidol (Haldol) 2 mg Q4H PRN IM AGITATION/ANXIETY Last administered on 22:46; Admin Dose 2 MG; Start 01/08/17 at 01:30 Acetaminophen (Tylenol Tab) 650 mg Q6H PRN PO PAIN AND OR ELEVATED TEMP Last administered on 01/16/17 10:25; Admin Dose 650 MG; Start 01/08/17 at 22:30 Quetiapine Fumarate (Seroquel) 25 mg QHS PRN PO agitation/hallucinations Last administered on 01/09/17 22:15; Admin Dose 25 MG; Start 01/09/17 at 21:00 Morphine Sulfate (morphine) 2 mg Q8H PRN IV PAIN LEVEL 6-10 Last administered on 01/18/17 02:28; Admin Dose 2 MG; Start 01/11/17 at 14:00 Clonidine (Catapres) 0.1 mg Q6H PRN PO hypertension Last administered on 02:41; Admin Dose 0.1 MG; Start 01/14/17 at 02:30 Hydralazine HCl (Apresoline) 25 mg Q6H PRN IV ELEVATED SYSTOLIC BP Last administered on 01/14/17 07:04; Admin Dose 25 MG; Start 01/14/17 at 07:00 Insulin Glargine (Lantus) 5 unit DAILY@20 SC Last administered on 01/17/17 20: 16; Admin Dose 5 UNIT; Start 01/17/17 at 20:00 Vancomycin HCl (Vancomycin Oral Syringe) 125 mg Q6 PO Last administered on 01/18 13:03; Admin Dose 125 MG; Start 01/17/17 at 18:00 Tacrolimus (Prograf) 2 mg Q12 PO Last administered on 01/18/17 09:42; Admin Dose 2 MG; Start 01/18/17 at 09:00 RUPERTO ANDUJAR Jan 18, 2017 13:05
--- NOTE | 2017-01-18 13:42 | CONS ---
Date/Time of Note Date/Time of Note DATE: 01/18/17 TIME: 13:41 Assessment/Plan Assessment/Plan Chief Complaint/Hosp Course IMP: 1.[id number] test 10/2016 with no ischemia/only scar/NL EF. Negative trop x 3. No CP/sob 2.HTN-labile but reasonable control 3.PAD with bilateral gangrene s/p L LE amputation 4.DM 5.Anemia 6. Encephalopathy Recc: -Continuer asa/plavix -Cointinue benazepril/metoprolol -Local wound care -Continue abx's and f/u cx data Problems: Consultation Date/Type/Reason Admit Date/Time Dec 26, 2016 at 13:22 Initial Consult Date 12/27/16 Type of Consultation: cardiology Reason for Consultation HTN Referring Provider: LES GILLILAND Exam/Review of Systems Vital Signs Vitals Vital Signs Date Time Temp Pulse Resp B/P Pulse Ox O2 Delivery O2 Flow Rate FiO2 01/18/17 09:45 73 145/78 01/18/17 08:00 97.8 20 97 Intake and Output 01/17/17 01/17/17 01/18/17 15:00 23:00 07:00 Intake Total 100 ml 600 ml 700 ml Output Total 100 ml Balance 100 ml 500 ml 700 ml Exam Review of Systems: CONSTITUTIONAL: No fevers, chills. PULMONARY: No sob CARDIOVASCULAR: No chest pain/palpitations GASTROINTESTINAL: No nausea/vomiting. GENITOURINARY: No hematuria/dysuria. MUSCULOSKELETAL: mild pain in foot PSYCHIATRIC: The patient denies depression. NEUROLOGIC: No weakness Constitutional: alert Psych: no complaints Head: normocephalic ENMT: mucosa pink and moist Neck: jvd (9 cm water), supple Cardiovascular: regular rate and rhythm Gastrointestinal: non-tender, soft Musculoskeletal: muscle tone (normal) Extremities: edema (none), other (s/p LE amputation) Neurological: other (No focal deficits) Results Result Diagram: 01/18/17 1110 01/18/17 1110 Results 24 hrs Laboratory Tests Test 01/17/17 17:16 01/17/17 20:14 01/17/17 21:08 01/18/17 06:02 Bedside Glucose 125 101 107 Lab Scanned Report BLOOD TRANSFUSION Test 01/18/17 08:17 01/18/17 11:10 01/18/17 11:43 Bedside Glucose 82 105 White Blood Count 13.5 #H Red Blood Count 3.47 L Hemoglobin 9.8 L Hematocrit 29.1 L Mean Corpuscular Volume 83.9 Mean Corpuscular Hemoglobin 28.2 L Mean Corpuscular Hemoglobin Concent 33.7 Red Cell Distribution Width 14.6 H Platelet Count 255 Mean Platelet Volume 10.8 H Neutrophils % 79.4 H Lymphocytes % 6.8 L Monocytes % 12.3 H Eosinophils % 1.0 Basophils % 0.1 Nucleated Red Blood Cells % 0.0 Neutrophils # 10.7 H Lymphocytes # 0.9 Monocytes # 1.7 H Eosinophils # 0.1 Basophils # 0.0 Nucleated Red Blood Cells # 0.0 Sodium Level 134 L Potassium Level 3.9 Chloride Level 106 Carbon Dioxide Level 22 Anion Gap 10 Blood Urea Nitrogen 9 Creatinine 0.54 Glucose Level 120 # Calcium Level 8.5 Medications Medications Current Medications Aspirin (Halfprin) 81 mg DAILY PO Last administered on 01/18/17 08:19; Admin Dose 81 MG; Start 12/27/16 at 09:00 Benazepril HCl (Lotensin) 10 mg DAILY PO Last administered on 01/18/17 08:20; Admin Dose 10 MG; Start 12/27/16 at 09:00 Clopidogrel Bisulfate (plaVIX) 75 mg DAILY PO Last administered on 01/18/17 08 :19; Admin Dose 75 MG; Start 12/27/16 at 09:00 Famotidine (Pepcid) 40 mg HS PO Last administered on 01/17/17 21:02; Admin Dose 40 MG; Start 12/26/16 at 21:00 Folic Acid (Folic Acid) 1 mg DAILY PO Last administered on 01/18/17 08:18; Admin Dose 1 MG; Start 12/27/16 at 09:00 Gabapentin (Neurontin) 100 mg TID PO Last administered on 01/18/17 13:04; Admin Dose 100 MG; Start 12/26/16 at 21:00 Metoprolol Tartrate (Lopressor) 75 mg BID PO Last administered on 01/18/17 08: 19; Admin Dose 75 MG; Start 12/26/16 at 21:00 Mycophenolate Mofetil (Cellcept) 1,000 mg BID PO Last administered on 9/30/ 17at 08:18; Admin Dose 1,000 MG; Start 12/26/16 at 21:00 Pantoprazole (Protonix Tab) 40 mg DAILY@06 PO Last administered on 01/18/17 05 :20; Admin Dose 40 MG; Start 12/27/16 at 06:00 Diagnostic Test (Pha) (Accu-Chek) 1 ea 02 XX ; Start 12/27/16 at 02:00 Miscellaneous Information 1 ea NOTE XX ; Start 12/26/16 at 14:30 Glucose (Glutose) 15 gm Q15M PRN PO DECREASED GLUCOSE; Start 12/26/16 at 14:30 Glucose (Glutose) 22.5 gm Q15M PRN PO DECREASED GLUCOSE; Start 12/26/16 at 14:30 Dextrose (D50w Syringe) 25 ml Q15M PRN IV DECREASED GLUCOSE; Start 12/26/16 at 14:30 Dextrose (D50w Syringe) 50 ml Q15M PRN IV DECREASED GLUCOSE; Start 12/26/16 at 14:30 Glucagon (Glucagen) 1 mg Q15M PRN IM DECREASED GLUCOSE; Start 12/26/16 at 14:30 Glucose (Glutose) 15 gm Q15M PRN BUCCAL DECREASED GLUCOSE; Start 12/26/16 at 14: 30 Acetaminophen/ Hydrocodone Bitart ([place] (5/325)) 1 tab Q8 PO Last administered on 01/18/17 13:03; Admin Dose 1 TAB; Start 12/26/16 at 22:00 Cholecalciferol (Vitamin D) 1,000 unit DAILY PO Last administered on 01/18/17 08:18; Admin Dose 1,000 UNIT; Start 12/28/16 at 09:00 Ondansetron HCl 4 mg 4 mg Q6H PRN IV NAUSEA AND/OR VOMITING Last administered on 01/15/17 09:50; Admin Dose 4 MG; Start 01/01/17 at 10:00 Ertapenem/Sodium Chloride (Invanz/NS) 100 ml @ 200 mls/hr Q24H IVPB Last administered on 01/17/17 13:53; Admin Dose 200 MLS/HR; Start 01/06/17 at 14:30 Haloperidol (Haldol) 2 mg Q4H PRN IM AGITATION/ANXIETY Last administered on 22:46; Admin Dose 2 MG; Start 01/08/17 at 01:30 Acetaminophen (Tylenol Tab) 650 mg Q6H PRN PO PAIN AND OR ELEVATED TEMP Last administered on 01/16/17 10:25; Admin Dose 650 MG; Start 01/08/17 at 22:30 Quetiapine Fumarate (Seroquel) 25 mg QHS PRN PO agitation/hallucinations Last administered on 01/09/17 22:15; Admin Dose 25 MG; Start 01/09/17 at 21:00 Morphine Sulfate (morphine) 2 mg Q8H PRN IV PAIN LEVEL 6-10 Last administered on 01/18/17 02:28; Admin Dose 2 MG; Start 01/11/17 at 14:00 Clonidine (Catapres) 0.1 mg Q6H PRN PO hypertension Last administered on 02:41; Admin Dose 0.1 MG; Start 01/14/17 at 02:30 Hydralazine HCl (Apresoline) 25 mg Q6H PRN IV ELEVATED SYSTOLIC BP Last administered on 01/14/17 07:04; Admin Dose 25 MG; Start 01/14/17 at 07:00 Insulin Glargine (Lantus) 5 unit DAILY@20 SC Last administered on 01/17/17 20: 16; Admin Dose 5 UNIT; Start 01/17/17 at 20:00 Vancomycin HCl (Vancomycin Oral Syringe) 125 mg Q6 PO Last administered on 01/18 13:03; Admin Dose 125 MG; Start 01/17/17 at 18:00 Tacrolimus (Prograf) 2 mg Q12 PO Last administered on 01/18/17 09:42; Admin Dose 2 MG; Start 01/18/17 at 09:00 TIMOTHY CORTES Jan 18, 2017 13:42
[2017-01-18 14:00] VITALS: BP 140/72; RESP 20
[2017-01-18] MEDS: ERTAPENEM SODIUM 1 GM in SOD CHLORIDE 0.9% 100 ML IVPB SCH (14:30)
--- NOTE | 2017-01-18 15:28 | CONS ---
Date/Time of Note Date/Time of Note DATE: 01/18/17 TIME: 15:28 Assessment/Plan Assessment/Plan Chief Complaint/Hosp Course ID PROGRESS NOTE CURRENT ABX: =>Ertapenem + Vanco PO 24H INTERVAL SUMMARY * Clinically stable, calm, resting comfortable, no fevers * PIV is out Invanz on hold * s/p 01/13/17 Left AKA * Foot wound Cx (+) WOUND CULTURE Final Organism 1 ESCHERICHIA COLI (ESBL) QUANTITY 1+ . MULTI DRUG RESISTANT ORGANISM ECOLI ESBL M.I.C. RX --------- --- AMPICILLIN >=32 R CEFAZOLIN R CEFEPIME 2 S CEFOTAXIME R CIPROFLOXACIN >=4 R GENTAMICIN 2 S IMIPENEM <=0.25 S LEVOFLOXACIN >=8 R TOBRAMYCIN 2 S TRIMETHOPRIM/SULFAMETHOXAZOLE >=320 R PIPERACILLIN/TAZOBACTAM <=4 S EXAM GEN: VSS, NAD HEENT: Unremarkable NECK: supple CVS: RRR, S1 and S2 CHEST: Equal chest rise bilaterally without dyspnea on observation ABD: Soft, NT, EXT: warm, DSG C/D/I SKIN: No rash, no diaphoresis ID ASSESSMENT 61 yo F admit with: 1. Bilateral lower extremities gangrene secondary to severe peripheral arterial disease, failed debridement and revascularization procedures. * s/p 01/13/17 Left AKA * Pending R-AKA * Foot wound Cx (+) WOUND CULTURE Final Organism 1 ESCHERICHIA COLI (ESBL) QUANTITY 1+ . MULTI DRUG RESISTANT ORGANISM 2. Diabetes. 3. History of kidney transplant in 2009, on immunosuppressive therapy. 4. Diabetes. 5. Hypertension. 6. Hx of E.coli-ESBL UTI 7. ABX associated diarrhea ABX ALLERGY: PCN CURRENT ABX: =>Ertapenem + Vanco PO ID RECOMMENDATIONS 1. Continue Ertapenem with new IV access established, she is not septic, advised RN not to worry about missing a dose for lost IV access. . Problems: Consultation Date/Type/Reason Admit Date/Time Dec 26, 2016 at 13:22 Initial Consult Date 12/27/16 Type of Consultation: cardiology Referring Provider: LES GILLILAND Exam/Review of Systems Vital Signs Vitals Vital Signs Date Time Temp Pulse Resp B/P Pulse Ox O2 Delivery O2 Flow Rate FiO2 01/18/17 09:45 73 145/78 01/18/17 08:00 97.8 20 97 Intake and Output 01/17/17 01/17/17 01/18/17 15:00 23:00 07:00 Intake Total 100 ml 600 ml 700 ml Output Total 100 ml Balance 100 ml 500 ml 700 ml Results Result Diagram: 01/18/17 1110 01/18/17 1110 Results 24 hrs Laboratory Tests Test 01/17/17 17:16 01/17/17 20:14 01/17/17 21:08 01/18/17 06:02 Bedside Glucose 125 101 107 Lab Scanned Report BLOOD TRANSFUSION Test 01/18/17 08:17 01/18/17 11:10 01/18/17 11:43 Bedside Glucose 82 105 White Blood Count 13.5 #H Red Blood Count 3.47 L Hemoglobin 9.8 L Hematocrit 29.1 L Mean Corpuscular Volume 83.9 Mean Corpuscular Hemoglobin 28.2 L Mean Corpuscular Hemoglobin Concent 33.7 Red Cell Distribution Width 14.6 H Platelet Count 255 Mean Platelet Volume 10.8 H Neutrophils % 79.4 H Lymphocytes % 6.8 L Monocytes % 12.3 H Eosinophils % 1.0 Basophils % 0.1 Nucleated Red Blood Cells % 0.0 Neutrophils # 10.7 H Lymphocytes # 0.9 Monocytes # 1.7 H Eosinophils # 0.1 Basophils # 0.0 Nucleated Red Blood Cells # 0.0 Sodium Level 134 L Potassium Level 3.9 Chloride Level 106 Carbon Dioxide Level 22 Anion Gap 10 Blood Urea Nitrogen 9 Creatinine 0.54 Glucose Level 120 # Calcium Level 8.5 Medications Medications Current Medications Aspirin (Halfprin) 81 mg DAILY PO Last administered on 01/18/17 08:19; Admin Dose 81 MG; Start 12/27/16 at 09:00 Benazepril HCl (Lotensin) 10 mg DAILY PO Last administered on 01/18/17 08:20; Admin Dose 10 MG; Start 12/27/16 at 09:00 Clopidogrel Bisulfate (plaVIX) 75 mg DAILY PO Last administered on 01/18/17 08 :19; Admin Dose 75 MG; Start 12/27/16 at 09:00 Famotidine (Pepcid) 40 mg HS PO Last administered on 01/17/17 21:02; Admin Dose 40 MG; Start 12/26/16 at 21:00 Folic Acid (Folic Acid) 1 mg DAILY PO Last administered on 01/18/17 08:18; Admin Dose 1 MG; Start 12/27/16 at 09:00 Gabapentin (Neurontin) 100 mg TID PO Last administered on 01/18/17 13:04; Admin Dose 100 MG; Start 12/26/16 at 21:00 Metoprolol Tartrate (Lopressor) 75 mg BID PO Last administered on 01/18/17 08: 19; Admin Dose 75 MG; Start 12/26/16 at 21:00 Mycophenolate Mofetil (Cellcept) 1,000 mg BID PO Last administered on 08:18; Admin Dose 1,000 MG; Start 12/26/16 at 21:00 Pantoprazole (Protonix Tab) 40 mg DAILY@06 PO Last administered on 01/18/17 05 :20; Admin Dose 40 MG; Start 12/27/16 at 06:00 Diagnostic Test (Pha) (Accu-Chek) 1 ea 02 XX ; Start 12/27/16 at 02:00 Miscellaneous Information 1 ea NOTE XX ; Start 12/26/16 at 14:30 Glucose (Glutose) 15 gm Q15M PRN PO DECREASED GLUCOSE; Start 12/26/16 at 14:30 Glucose (Glutose) 22.5 gm Q15M PRN PO DECREASED GLUCOSE; Start 12/26/16 at 14:30 Dextrose (D50w Syringe) 25 ml Q15M PRN IV DECREASED GLUCOSE; Start 12/26/16 at 14:30 Dextrose (D50w Syringe) 50 ml Q15M PRN IV DECREASED GLUCOSE; Start 12/26/16 at 14:30 Glucagon (Glucagen) 1 mg Q15M PRN IM DECREASED GLUCOSE; Start 12/26/16 at 14:30 Glucose (Glutose) 15 gm Q15M PRN BUCCAL DECREASED GLUCOSE; Start 12/26/16 at 14: 30 Acetaminophen/ Hydrocodone Bitart ([place] (5/325)) 1 tab Q8 PO Last administered on 01/18/17 13:03; Admin Dose 1 TAB; Start 12/26/16 at 22:00 Cholecalciferol (Vitamin D) 1,000 unit DAILY PO Last administered on 01/18/17 08:18; Admin Dose 1,000 UNIT; Start 12/28/16 at 09:00 Ondansetron HCl 4 mg 4 mg Q6H PRN IV NAUSEA AND/OR VOMITING Last administered on 01/15/17 09:50; Admin Dose 4 MG; Start 01/01/17 at 10:00 Ertapenem/Sodium Chloride (Invanz/NS) 100 ml @ 200 mls/hr Q24H IVPB Last administered on 01/17/17 13:53; Admin Dose 200 MLS/HR; Start 01/06/17 at 14:30 Haloperidol (Haldol) 2 mg Q4H PRN IM AGITATION/ANXIETY Last administered on 22:46; Admin Dose 2 MG; Start 01/08/17 at 01:30 Acetaminophen (Tylenol Tab) 650 mg Q6H PRN PO PAIN AND OR ELEVATED TEMP Last administered on 01/16/17 10:25; Admin Dose 650 MG; Start 01/08/17 at 22:30 Quetiapine Fumarate (Seroquel) 25 mg QHS PRN PO agitation/hallucinations Last administered on 01/09/17 22:15; Admin Dose 25 MG; Start 01/09/17 at 21:00 Morphine Sulfate (morphine) 2 mg Q8H PRN IV PAIN LEVEL 6-10 Last administered on 01/18/17 02:28; Admin Dose 2 MG; Start 01/11/17 at 14:00 Clonidine (Catapres) 0.1 mg Q6H PRN PO hypertension Last administered on 02:41; Admin Dose 0.1 MG; Start 01/14/17 at 02:30 Hydralazine HCl (Apresoline) 25 mg Q6H PRN IV ELEVATED SYSTOLIC BP Last administered on 01/14/17 07:04; Admin Dose 25 MG; Start 01/14/17 at 07:00 Insulin Glargine (Lantus) 5 unit DAILY@20 SC Last administered on 01/17/17 20: 16; Admin Dose 5 UNIT; Start 01/17/17 at 20:00 Vancomycin HCl (Vancomycin Oral Syringe) 125 mg Q6 PO Last administered on 01/18 13:03; Admin Dose 125 MG; Start 01/17/17 at 18:00 Tacrolimus (Prograf) 2 mg Q12 PO Last administered on 01/18/17 09:42; Admin Dose 2 MG; Start 01/18/17 at 09:00 HAMZAH GARZA NP Jan 18, 2017 15:28
[2017-01-18] MEDS: INSULIN GLARGINE [LANtus] 3 ML PEN SC SCH (20:00)
[2017-01-18 20:05] VITALS: BP 151/79; RESP 20
[2017-01-18] MEDS: FAMOTIDINE 20 MG TAB PO SCH (20:49)
[2017-01-19] MEDS: VANCOMYCIN HCL 250 MG/5ML POSYG PO SCH ×4 (00:05→17:21)
--- NOTE | 2017-01-19 00:13 | CONS ---
Date/Time of Note Date/Time of Note DATE: 01/19/17 TIME: 00:10 Assessment/Plan Assessment/Plan Additional Assessment/Plan 1. 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 h/o donor kidney transplant in 2009 at [facility], currently on immunosuppression with Prograf, CellCept 4. 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 History of hypertension. 6. History of diabetes mellitus. 7. History of previous left upper extremity arteriovenous fistula. 8. Hyponatremia due to hypovolemic hyponatremia post op 9. CT chest+ abd+pelvis with and without contrast negative for mass/LAD/ Malignancy 10. Anemia Plan: continue Current immunosuppression Prograf and cellcept, Cr normal, s/p Left AKA- Post op care as per surgery Conitnue NS at 75 cc/hr, electrolytes stable , na 134 IV abx as per ID will follow up Plan of care Benny Briscoe Consultation Date/Type/Reason Admit Date/Time Dec 26, 2016 at 13:22 Initial Consult Date 12/27/16 Type of Consultation: NEPHROLOY Referring Provider: LES GILLILAND 24 HR Interval Summary Free Text/Dictation [id number]- nad, afebrile, [facility] staff Exam/Review of Systems Vital Signs Vitals Vital Signs Date Time Temp Pulse Resp B/P Pulse Ox O2 Delivery O2 Flow Rate FiO2 01/18/17 21:00 98.7 01/18/17 20:05 83 20 151/79 100 Intake and Output 01/18/17 01/18/17 01/19/17 15:00 23:00 07:00 Intake Total 950 ml Output Total 1100 ml Balance -150 ml Exam Constitutional: alert Respiratory: diminished breath sounds Cardiovascular: nl pulses, regular rate and rhythm Gastrointestinal: non-tender, soft Extremities: other (sp left AKA) Neurological: nl speech Results Result Diagram: 01/18/17 1110 01/18/17 1110 Results 24 hrs Laboratory Tests Test 01/18/17 06:02 01/18/17 08:17 01/18/17 11:10 01/18/17 11:43 Lab Scanned Report BLOOD TRANSFUSION Bedside Glucose 82 105 White Blood Count 13.5 #H Red Blood Count 3.47 L Hemoglobin 9.8 L Hematocrit 29.1 L Mean Corpuscular Volume 83.9 Mean Corpuscular Hemoglobin 28.2 L Mean Corpuscular Hemoglobin Concent 33.7 Red Cell Distribution Width 14.6 H Platelet Count 255 Mean Platelet Volume 10.8 H Neutrophils % 79.4 H Lymphocytes % 6.8 L Monocytes % 12.3 H Eosinophils % 1.0 Basophils % 0.1 Nucleated Red Blood Cells % 0.0 Neutrophils # 10.7 H Lymphocytes # 0.9 Monocytes # 1.7 H Eosinophils # 0.1 Basophils # 0.0 Nucleated Red Blood Cells # 0.0 Sodium Level 134 L Potassium Level 3.9 Chloride Level 106 Carbon Dioxide Level 22 Anion Gap 10 Blood Urea Nitrogen 9 Creatinine 0.54 Glucose Level 120 # Calcium Level 8.5 Test 01/18/17 17:38 01/18/17 19:57 01/18/17 20:48 Bedside Glucose 93 117 109 Medications Medications Current Medications Aspirin (Halfprin) 81 mg DAILY PO Last administered on 01/18/17 08:19; Admin Dose 81 MG; Start 12/27/16 at 09:00 Benazepril HCl (Lotensin) 10 mg DAILY PO Last administered on 01/18/17 08:20; Admin Dose 10 MG; Start 12/27/16 at 09:00 Clopidogrel Bisulfate (plaVIX) 75 mg DAILY PO Last administered on 01/18/17 08 :19; Admin Dose 75 MG; Start 12/27/16 at 09:00 Famotidine (Pepcid) 40 mg HS PO Last administered on 01/18/17 20:49; Admin Dose 40 MG; Start 12/26/16 at 21:00 Folic Acid (Folic Acid) 1 mg DAILY PO Last administered on 01/18/17 08:18; Admin Dose 1 MG; Start 12/27/16 at 09:00 Gabapentin (Neurontin) 100 mg TID PO Last administered on 01/18/17 20:49; Admin Dose 100 MG; Start 12/26/16 at 21:00 Metoprolol Tartrate (Lopressor) 75 mg BID PO Last administered on 01/18/17 20: 52; Admin Dose 75 MG; Start 12/26/16 at 21:00 Mycophenolate Mofetil (Cellcept) 1,000 mg BID PO Last administered on 20:49; Admin Dose 1,000 MG; Start 12/26/16 at 21:00 Pantoprazole (Protonix Tab) 40 mg DAILY@06 PO Last administered on 01/18/17 05 :20; Admin Dose 40 MG; Start 12/27/16 at 06:00 Diagnostic Test (Pha) (Accu-Chek) 1 ea 02 XX ; Start 12/27/16 at 02:00 Miscellaneous Information 1 ea NOTE XX ; Start 12/26/16 at 14:30 Glucose (Glutose) 15 gm Q15M PRN PO DECREASED GLUCOSE; Start 12/26/16 at 14:30 Glucose (Glutose) 22.5 gm Q15M PRN PO DECREASED GLUCOSE; Start 12/26/16 at 14:30 Dextrose (D50w Syringe) 25 ml Q15M PRN IV DECREASED GLUCOSE; Start 12/26/16 at 14:30 Dextrose (D50w Syringe) 50 ml Q15M PRN IV DECREASED GLUCOSE; Start 12/26/16 at 14:30 Glucagon (Glucagen) 1 mg Q15M PRN IM DECREASED GLUCOSE; Start 12/26/16 at 14:30 Glucose (Glutose) 15 gm Q15M PRN BUCCAL DECREASED GLUCOSE; Start 12/26/16 at 14: 30 Acetaminophen/ Hydrocodone Bitart ([place] (5/325)) 1 tab Q8 PO Last administered on 01/18/17 21:51; Admin Dose 1 TAB; Start 12/26/16 at 22:00 Cholecalciferol (Vitamin D) 1,000 unit DAILY PO Last administered on 01/18/17 08:18; Admin Dose 1,000 UNIT; Start 12/28/16 at 09:00 Ondansetron HCl 4 mg 4 mg Q6H PRN IV NAUSEA AND/OR VOMITING Last administered on 01/15/17 09:50; Admin Dose 4 MG; Start 01/01/17 at 10:00 Ertapenem/Sodium Chloride (Invanz/NS) 100 ml @ 200 mls/hr Q24H IVPB Last administered on 01/17/17 13:53; Admin Dose 200 MLS/HR; Start 01/06/17 at 14:30 Haloperidol (Haldol) 2 mg Q4H PRN IM AGITATION/ANXIETY Last administered on 22:46; Admin Dose 2 MG; Start 01/08/17 at 01:30 Acetaminophen (Tylenol Tab) 650 mg Q6H PRN PO PAIN AND OR ELEVATED TEMP Last administered on 01/16/17 10:25; Admin Dose 650 MG; Start 01/08/17 at 22:30 Quetiapine Fumarate (Seroquel) 25 mg QHS PRN PO agitation/hallucinations Last administered on 01/09/17 22:15; Admin Dose 25 MG; Start 01/09/17 at 21:00 Morphine Sulfate (morphine) 2 mg Q8H PRN IV PAIN LEVEL 6-10 Last administered on 01/18/17 02:28; Admin Dose 2 MG; Start 01/11/17 at 14:00 Clonidine (Catapres) 0.1 mg Q6H PRN PO hypertension Last administered on 02:41; Admin Dose 0.1 MG; Start 01/14/17 at 02:30 Hydralazine HCl (Apresoline) 25 mg Q6H PRN IV ELEVATED SYSTOLIC BP Last administered on 01/14/17 07:04; Admin Dose 25 MG; Start 01/14/17 at 07:00 Insulin Glargine (Lantus) 5 unit DAILY@20 SC Last administered on 01/18/17 20: 00; Admin Dose 5 UNIT; Start 01/17/17 at 20:00 Vancomycin HCl (Vancomycin Oral Syringe) 125 mg Q6 PO Last administered on 01/19 00:05; Admin Dose 125 MG; Start 01/17/17 at 18:00 Tacrolimus (Prograf) 2 mg Q12 PO Last administered on 01/18/17 20:49; Admin Dose 2 MG; Start 01/18/17 at 09:00 TIM BENNETT Jan 19, 2017 00:13
[2017-01-19] MEDS: ACCU-CHEK XX SCH (01:47)
[2017-01-19 02:16] VITALS: BP 145/76; RESP 20
[2017-01-19 02:59] VITALS: BP 145/76; RESP 20
[2017-01-19] MEDS: PANTOPRAZOLE (EC) 40 MG TAB PO SCH (06:00)
[2017-01-19] MEDS: HYDROCODONE/APAP (5/325) TAB PO SCH ×2 (06:00→13:39)
[2017-01-19 08:00] VITALS: BP 131/79; RESP 20
[2017-01-19] MEDS: INSULIN ASPART [NOVOLOG] 3 ML PEN SC SCH ×4 (08:00→21:00)
[2017-01-19] MEDS: CHOLECALCIFEROL 1,000 UNIT TAB PO SCH (08:11)
[2017-01-19] MEDS: GABAPENTIN 100 MG CAP PO SCH ×3 (08:11→20:39)
[2017-01-19] MEDS: FOLIC ACID 1 MG TAB PO SCH (08:11)
[2017-01-19] MEDS: TACROLIMUS 1 MG CAP PO SCH ×2 (08:11→20:39)
[2017-01-19] MEDS: CLOPIDOGREL 75 MG TAB PO SCH (08:11)
[2017-01-19] MEDS: ASPIRIN (EC) 81 MG TAB PO SCH (08:11)
[2017-01-19] MEDS: MYCOPHENOLATE 250 MG CAP PO SCH ×2 (08:11→20:39)
[2017-01-19] MEDS: BENAZEPRIL 10 MG TAB PO SCH (08:12)
[2017-01-19] MEDS: METOPROLOL 25 MG TAB PO SCH ×2 (08:12→20:40)
--- NOTE | 2017-01-19 11:24 | PN ---
Date/Time of Note Date/Time of Note DATE: 01/19/17 TIME: 11:24 Assessment/Plan VTE Prophylaxis VTE Prophylaxis Intervention: other Lines/Catheters IV C[facility]ter Type [facility]from [facility] Urinary Cath still in place: No Assessment/Plan Chief Complaint/Hosp Course - Acute encephalopathy, resolved. CT brain is negative for any acute pathology. 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 S/p left AKA 01/[address] Valencia, vascular surgery. - Diabetes mellitus type II. Continue Lantus and NovoLog. - History of kidney transplant in 2009, on immunosuppressive therapy. - Hypertension. 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 - Anemia of chronic kidney disease. Problems: Subjective 24 Hr Interval Summary Free Text/Dictation Unable to interview as patient not in room Exam/Review of Systems Vital Signs Vitals Vital Signs Date Time Temp Pulse Resp B/P Pulse Ox O2 Delivery O2 Flow Rate FiO2 01/19/17 08:00 98.7 96 20 131/79 98 Intake and Output 01/18/17 01/18/17 01/19/17 15:00 23:00 07:00 Intake Total 950 ml 650 ml Output Total 1100 ml Balance -150 ml 650 ml Exam Unable to examine as patient is not in room Results Result Diagram: 01/18/17 1110 01/18/17 1110 Results 24 hrs Laboratory Tests Test 01/18/17 11:43 01/18/17 17:38 01/18/17 19:57 01/18/17 20:48 Bedside Glucose 105 93 117 109 Test 01/19/17 08:09 Bedside Glucose 85 Medications Medications Current Medications Aspirin (Halfprin) 81 mg DAILY PO Last administered on 01/19/17 08:11; Admin Dose 81 MG; Start 12/27/16 at 09:00 Benazepril HCl (Lotensin) 10 mg DAILY PO Last administered on 01/19/17 08:12; Admin Dose 10 MG; Start 12/27/16 at 09:00 Clopidogrel Bisulfate (plaVIX) 75 mg DAILY PO Last administered on 01/19/17 08 :11; Admin Dose 75 MG; Start 12/27/16 at 09:00 Famotidine (Pepcid) 40 mg HS PO Last administered on 01/18/17 20:49; Admin Dose 40 MG; Start 12/26/16 at 21:00 Folic Acid (Folic Acid) 1 mg DAILY PO Last administered on 01/19/17 08:11; Admin Dose 1 MG; Start 12/27/16 at 09:00 Gabapentin (Neurontin) 100 mg TID PO Last administered on 01/19/17 08:11; Admin Dose 100 MG; Start 12/26/16 at 21:00 Metoprolol Tartrate (Lopressor) 75 mg BID PO Last administered on 01/19/17 08: 12; Admin Dose 75 MG; Start 12/26/16 at 21:00 Mycophenolate Mofetil (Cellcept) 1,000 mg BID PO Last administered on 08:11; Admin Dose 1,000 MG; Start 12/26/16 at 21:00 Pantoprazole (Protonix Tab) 40 mg DAILY@06 PO Last administered on 01/19/17 06 :00; Admin Dose 40 MG; Start 12/27/16 at 06:00 Diagnostic Test (Pha) (Accu-Chek) 1 ea 02 XX ; Start 12/27/16 at 02:00 Miscellaneous Information 1 ea NOTE XX ; Start 12/26/16 at 14:30 Glucose (Glutose) 15 gm Q15M PRN PO DECREASED GLUCOSE; Start 12/26/16 at 14:30 Glucose (Glutose) 22.5 gm Q15M PRN PO DECREASED GLUCOSE; Start 12/26/16 at 14:30 Dextrose (D50w Syringe) 25 ml Q15M PRN IV DECREASED GLUCOSE; Start 12/26/16 at 14:30 Dextrose (D50w Syringe) 50 ml Q15M PRN IV DECREASED GLUCOSE; Start 12/26/16 at 14:30 Glucagon (Glucagen) 1 mg Q15M PRN IM DECREASED GLUCOSE; Start 12/26/16 at 14:30 Glucose (Glutose) 15 gm Q15M PRN BUCCAL DECREASED GLUCOSE; Start 12/26/16 at 14: 30 Acetaminophen/ Hydrocodone Bitart ([place] (5/325)) 1 tab Q8 PO Last administered on 01/19/17 06:00; Admin Dose 1 TAB; Start 12/26/16 at 22:00 Cholecalciferol (Vitamin D) 1,000 unit DAILY PO Last administered on 01/19/17 08:11; Admin Dose 1,000 UNIT; Start 12/28/16 at 09:00 Ondansetron HCl 4 mg 4 mg Q6H PRN IV NAUSEA AND/OR VOMITING Last administered on 01/15/17 09:50; Admin Dose 4 MG; Start 01/01/17 at 10:00 Ertapenem/Sodium Chloride (Invanz/NS) 100 ml @ 200 mls/hr Q24H IVPB Last administered on 01/17/17 13:53; Admin Dose 200 MLS/HR; Start 01/06/17 at 14:30 Haloperidol (Haldol) 2 mg Q4H PRN IM AGITATION/ANXIETY Last administered on 22:46; Admin Dose 2 MG; Start 01/08/17 at 01:30 Acetaminophen (Tylenol Tab) 650 mg Q6H PRN PO PAIN AND OR ELEVATED TEMP Last administered on 01/16/17 10:25; Admin Dose 650 MG; Start 01/08/17 at 22:30 Quetiapine Fumarate (Seroquel) 25 mg QHS PRN PO agitation/hallucinations Last administered on 01/09/17 22:15; Admin Dose 25 MG; Start 01/09/17 at 21:00 Morphine Sulfate (morphine) 2 mg Q8H PRN IV PAIN LEVEL 6-10 Last administered on 01/18/17 02:28; Admin Dose 2 MG; Start 01/11/17 at 14:00 Clonidine (Catapres) 0.1 mg Q6H PRN PO hypertension Last administered on 02:41; Admin Dose 0.1 MG; Start 01/14/17 at 02:30 Hydralazine HCl (Apresoline) 25 mg Q6H PRN IV ELEVATED SYSTOLIC BP Last administered on 01/14/17 07:04; Admin Dose 25 MG; Start 01/14/17 at 07:00 Insulin Glargine (Lantus) 5 unit DAILY@20 SC Last administered on 01/18/17 20: 00; Admin Dose 5 UNIT; Start 01/17/17 at 20:00 Vancomycin HCl (Vancomycin Oral Syringe) 125 mg Q6 PO Last administered on 01/19 05:59; Admin Dose 125 MG; Start 01/17/17 at 18:00 Tacrolimus (Prograf) 2 mg Q12 PO Last administered on 01/19/17t 08:11; Admin Dose 2 MG; Start 01/18/17 at 09:00 RUPERTO ANDUJAR Jan 19, 2017 11:24
--- NOTE | 2017-01-19 11:40 | RADRPT ---
PROCEDURE: XR Chest. CLINICAL INDICATION: Check PICC line position. TECHNIQUE: Single frontal view. COMPARISON: 01/15/2017. FINDINGS: There is a right arm PICC line with the tip in the mid superior vena cava. Previously noted left ba silar atelectasis is no longer present. The heart size is normal. There is calcification in the aorta consistent with atherosclerosis. There is no pleural effusion. There is no pneumothorax. IMPRESSION: 1. Right arm PICC line tip in mid superior vena cava. 2. Left basilar atelectasis no longer present. 3. Atherosclerosis. 4. Otherwise normal chest x-ray. RPTAT: QQ .Hernan Baker MD, MD Date Time Electronically viewed and signed by .Hernan Baker MD, on 01/19/2017 11:40 .R/
--- NOTE | 2017-01-19 11:41 | RADRPT ---
PROCEDURE: XR Chest. CLINICAL INDICATION: Check PICC line position. TECHNIQUE: Single frontal view. COMPARISON: Prior study done earlier the same day. FINDINGS: There is a right arm PICC line with the tip in the mid to lower superior vena cava. The lungs are c lear. The heart size is normal. There is calcification in the aorta consistent with atherosclerosis. There is no pleural effusion. There is no pneumothorax. IMPRESSION: 1. Right arm PICC line tip in satisfactory position. 2. Atherosclerosis. 3. Clear lungs. RPTAT: QQ .Hernan Baker MD, MD Date Time Electronically viewed and signed by .Hernan Baker MD, MD on 01/19/2017 11:41 .R/
--- NOTE | 2017-01-19 11:43 | RADRPT ---
PROCEDURE: Ultrasound guidance for placement of needle in left upper extremity vein. CLINICAL INDICATION: Venous access. TECHNIQUE: Limited sonography of the left upper extremity was performed. Ultrasound images were recorded and s tored in the patient's medical record. COMPARISON: None. FINDINGS: The ultrasound images demonstrate a patent left upper extremity vein. The PICC line was inserted by the PICC line nurse. IMPRESSION: 1. Ultrasound guidance for a needle placement in a left upper extremity vein. 2. The left upper extremity vein is patent. RPTAT: QQ .Hernan Baker MD, MD Date Time Electronically viewed and signed by .Hernan Baker MD, on 01/19/2017 11:42 .R/
--- NOTE | 2017-01-19 13:21 | CONS ---
Date/Time of Note Date/Time of Note DATE: 01/19/17 TIME: 13:19 Assessment/Plan Assessment/Plan Additional Assessment/Plan 1. 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 h/o donor kidney transplant in 2009 at [facility], currently on immunosuppression with Prograf, CellCept 4. 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 History of hypertension. 6. History of diabetes mellitus. 7. History of previous left upper extremity arteriovenous fistula. 8. Hyponatremia due to hypovolemic hyponatremia post op 9. CT chest+ abd+pelvis with and without contrast negative for mass/LAD/ Malignancy 10. Anemia Plan: continue Current immunosuppression Prograf and cellcept, Cr normal, s/p Left AKA- Post op care as per surgery Conitnue NS at 75 cc/hr, electrolytes stable , na 134 IV abx as per ID will follow up Plan of care Benny Briscoe Consultation Date/Type/Reason Admit Date/Time Dec 26, 2016 at 13:22 Initial Consult Date 12/27/16 Type of Consultation: NEPHROLOY Referring Provider: LES GILLILAND 24 HR Interval Summary Free Text/Dictation restin in bed, seems comfortable, family at bed side- allQs answered, dw staff Constitutional: requiring IVF Detailed Summary Respiratory: no complaints Cardiovascular: no complaints Gastrointestinal: no complaints Genitourinary: no complaints Musculoskeletal: other (sp LE bka) Exam/Review of Systems Vital Signs Vitals Vital Signs Date Time Temp Pulse Resp B/P Pulse Ox O2 Delivery O2 Flow Rate FiO2 01/19/17 08:00 98.7 96 20 131/79 98 Intake and Output 01/18/17 01/18/17 01/19/17 15:00 23:00 07:00 Intake Total 950 ml 650 ml Output Total 1100 ml Balance -150 ml 650 ml Exam Constitutional: alert Respiratory: clear to auscultation, diminished breath sounds Cardiovascular: nl pulses, regular rate and rhythm Gastrointestinal: non-tender, soft Musculoskeletal: other (sp left AKA- DDI) Neurological: nl speech, other Results Result Diagram: 01/18/17 1110 01/18/17 1110 Results 24 hrs Laboratory Tests Test 01/18/17 17:38 01/18/17 19:57 01/18/17 20:48 01/19/17 08:09 Bedside Glucose 93 117 109 85 Test 01/19/17 12:04 Bedside Glucose 133 Medications Medications Current Medications Aspirin (Halfprin) 81 mg DAILY PO Last administered on 01/19/17 08:11; Admin Dose 81 MG; Start 12/27/16 at 09:00 Benazepril HCl (Lotensin) 10 mg DAILY PO Last administered on 01/19/17 08:12; Admin Dose 10 MG; Start 12/27/16 at 09:00 Clopidogrel Bisulfate (plaVIX) 75 mg DAILY PO Last administered on 01/19/17 08 :11; Admin Dose 75 MG; Start 12/27/16 at 09:00 Famotidine (Pepcid) 40 mg HS PO Last administered on 01/18/17 20:49; Admin Dose 40 MG; Start 12/26/16 at 21:00 Folic Acid (Folic Acid) 1 mg DAILY PO Last administered on 01/19/17 08:11; Admin Dose 1 MG; Start 12/27/16 at 09:00 Gabapentin (Neurontin) 100 mg TID PO Last administered on 01/19/17 12:05; Admin Dose 100 MG; Start 12/26/16 at 21:00 Metoprolol Tartrate (Lopressor) 75 mg BID PO Last administered on 01/19/17 08: 12; Admin Dose 75 MG; Start 12/26/16 at 21:00 Mycophenolate Mofetil (Cellcept) 1,000 mg BID PO Last administered on 08:11; Admin Dose 1,000 MG; Start 12/26/16 at 21:00 Pantoprazole (Protonix Tab) 40 mg DAILY@06 PO Last administered on 01/19/17 06 :00; Admin Dose 40 MG; Start 12/27/16 at 06:00 Diagnostic Test (Pha) (Accu-Chek) 1 ea 02 XX ; Start 12/27/16 at 02:00 Miscellaneous Information 1 ea NOTE XX ; Start 12/26/16 at 14:30 Glucose (Glutose) 15 gm Q15M PRN PO DECREASED GLUCOSE; Start 12/26/16 at 14:30 Glucose (Glutose) 22.5 gm Q15M PRN PO DECREASED GLUCOSE; Start 12/26/16 at 14:30 Dextrose (D50w Syringe) 25 ml Q15M PRN IV DECREASED GLUCOSE; Start 12/26/16 at 14:30 Dextrose (D50w Syringe) 50 ml Q15M PRN IV DECREASED GLUCOSE; Start 12/26/16 at 14:30 Glucagon (Glucagen) 1 mg Q15M PRN IM DECREASED GLUCOSE; Start 12/26/16 at 14:30 Glucose (Glutose) 15 gm Q15M PRN BUCCAL DECREASED GLUCOSE; Start 12/26/16 at 14: 30 Acetaminophen/ Hydrocodone Bitart ([place] (5/325)) 1 tab Q8 PO Last administered on 01/19/17 06:00; Admin Dose 1 TAB; Start 12/26/16 at 22:00 Cholecalciferol (Vitamin D) 1,000 unit DAILY PO Last administered on 01/19/17 08:11; Admin Dose 1,000 UNIT; Start 12/28/16 at 09:00 Ondansetron HCl 4 mg 4 mg Q6H PRN IV NAUSEA AND/OR VOMITING Last administered on 01/15/17 09:50; Admin Dose 4 MG; Start 01/01/17 at 10:00 Ertapenem/Sodium Chloride (Invanz/NS) 100 ml @ 200 mls/hr Q24H IVPB Last administered on 01/17/17 13:53; Admin Dose 200 MLS/HR; Start 01/06/17 at 14:30 Haloperidol (Haldol) 2 mg Q4H PRN IM AGITATION/ANXIETY Last administered on 22:46; Admin Dose 2 MG; Start 01/08/17 at 01:30 Acetaminophen (Tylenol Tab) 650 mg Q6H PRN PO PAIN AND OR ELEVATED TEMP Last administered on 01/16/17 10:25; Admin Dose 650 MG; Start 01/08/17 at 22:30 Quetiapine Fumarate (Seroquel) 25 mg QHS PRN PO agitation/hallucinations Last administered on 01/09/17 22:15; Admin Dose 25 MG; Start 01/09/17 at 21:00 Morphine Sulfate (morphine) 2 mg Q8H PRN IV PAIN LEVEL 6-10 Last administered on 01/18/17 02:28; Admin Dose 2 MG; Start 01/11/17 at 14:00 Clonidine (Catapres) 0.1 mg Q6H PRN PO hypertension Last administered on 02:41; Admin Dose 0.1 MG; Start 01/14/17 at 02:30 Hydralazine HCl (Apresoline) 25 mg Q6H PRN IV ELEVATED SYSTOLIC BP Last administered on 01/14/17 07:04; Admin Dose 25 MG; Start 01/14/17 at 07:00 Insulin Glargine (Lantus) 5 unit DAILY@20 SC Last administered on 01/18/17 20: 00; Admin Dose 5 UNIT; Start 01/17/17 at 20:00 Vancomycin HCl (Vancomycin Oral Syringe) 125 mg Q6 PO Last administered on 01/19 12:05; Admin Dose 125 MG; Start 01/17/17 at 18:00 Tacrolimus (Prograf) 2 mg Q12 PO Last administered on 01/19/17 08:11; Admin Dose 2 MG; Start 01/18/17 at 09:00 IV Flush (NS 10 ml) 10 ml PRN PRN IV IV PROTOCOL; Start 01/19/17 at 12:30 TIM BENNETT Jan 19, 2017 13:21
[2017-01-19] MEDS: ERTAPENEM SODIUM 1 GM in SOD CHLORIDE 0.9% 100 ML IVPB SCH (13:39)
--- NOTE | 2017-01-19 13:48 | CONS ---
Date/Time of Note Date/Time of Note DATE: 01/19/17 TIME: 13:47 Assessment/Plan Assessment/Plan Chief Complaint/Hosp Course IMP: 1.Jns-uu-pwjgjs test 10/2016 with no ischemia/only scar/NL EF. Negative trop x 3. No CP/sob 2.HTN-labile but still reasonable control 3.PAD with bilateral gangrene s/p L LE amputation 4.DM 5.Anemia 6. Encephalopathy Recc: -Continuer asa/plavix -Cointinue benazepril/metoprolol -Local wound care -Continue abx's and f/u cx data Problems: Consultation Date/Type/Reason Admit Date/Time Dec 26, 2016 at 13:22 Initial Consult Date 12/27/16 Type of Consultation: cardiology Reason for Consultation HTN Referring Provider: LES GILLILAND Exam/Review of Systems Vital Signs Vitals Vital Signs Date Time Temp Pulse Resp B/P Pulse Ox O2 Delivery O2 Flow Rate FiO2 01/19/17 08:00 98.7 96 20 131/79 98 Intake and Output 01/18/17 01/18/17 01/19/17 15:00 23:00 07:00 Intake Total 950 ml 650 ml Output Total 1100 ml Balance -150 ml 650 ml Exam Review of Systems: CONSTITUTIONAL: No fevers, chills. PULMONARY: No sob CARDIOVASCULAR: No chest pain/palpitations GASTROINTESTINAL: No nausea/vomiting. GENITOURINARY: No hematuria/dysuria. MUSCULOSKELETAL: No myagias/arthalgias. PSYCHIATRIC: The patient denies depression. NEUROLOGIC: lethargic today Constitutional: other (sleeping) Psych: no complaints Head: normocephalic ENMT: mucosa pink and moist Neck: jvd (9 cm water), supple Respiratory: diminished breath sounds (at bases/B) Cardiovascular: regular rate and rhythm Gastrointestinal: non-tender, soft Musculoskeletal: muscle tone (normal), other (gngrenous changes of foot/toe) Extremities: edema (none), other (s/p LE amputation) Results Result Diagram: 01/18/17 1110 01/18/17 1110 Results 24 hrs Laboratory Tests Test 01/18/17 17:38 01/18/17 19:57 01/18/17 20:48 01/19/17 08:09 Bedside Glucose 93 117 109 85 Test 01/19/17 12:04 Bedside Glucose 133 Medications Medications Current Medications Aspirin (Halfprin) 81 mg DAILY PO Last administered on 01/19/17 08:11; Admin Dose 81 MG; Start 12/27/16 at 09:00 Benazepril HCl (Lotensin) 10 mg DAILY PO Last administered on 01/19/17 08:12; Admin Dose 10 MG; Start 12/27/16 at 09:00 Clopidogrel Bisulfate (plaVIX) 75 mg DAILY PO Last administered on 01/19/17 08 :11; Admin Dose 75 MG; Start 12/27/16 at 09:00 Famotidine (Pepcid) 40 mg HS PO Last administered on 01/18/17 20:49; Admin Dose 40 MG; Start 12/26/16 at 21:00 Folic Acid (Folic Acid) 1 mg DAILY PO Last administered on 01/19/17 08:11; Admin Dose 1 MG; Start 12/27/16 at 09:00 Gabapentin (Neurontin) 100 mg TID PO Last administered on 01/19/17 12:05; Admin Dose 100 MG; Start 12/26/16 at 21:00 Metoprolol Tartrate (Lopressor) 75 mg BID PO Last administered on 01/19/17 08: 12; Admin Dose 75 MG; Start 12/26/16 at 21:00 Mycophenolate Mofetil (Cellcept) 1,000 mg BID PO Last administered on 08:11; Admin Dose 1,000 MG; Start 12/26/16 at 21:00 Pantoprazole (Protonix Tab) 40 mg DAILY@06 PO Last administered on 01/19/17 06 :00; Admin Dose 40 MG; Start 12/27/16 at 06:00 Diagnostic Test (Pha) (Accu-Chek) 1 ea 02 XX ; Start 12/27/16 at 02:00 Miscellaneous Information 1 ea NOTE XX ; Start 12/26/16 at 14:30 Glucose (Glutose) 15 gm Q15M PRN PO DECREASED GLUCOSE; Start 12/26/16 at 14:30 Glucose (Glutose) 22.5 gm Q15M PRN PO DECREASED GLUCOSE; Start 12/26/16 at 14:30 Dextrose (D50w Syringe) 25 ml Q15M PRN IV DECREASED GLUCOSE; Start 12/26/16 at 14:30 Dextrose (D50w Syringe) 50 ml Q15M PRN IV DECREASED GLUCOSE; Start 12/26/16 at 14:30 Glucagon (Glucagen) 1 mg Q15M PRN IM DECREASED GLUCOSE; Start 12/26/16 at 14:30 Glucose (Glutose) 15 gm Q15M PRN BUCCAL DECREASED GLUCOSE; Start 12/26/16 at 14: 30 Acetaminophen/ Hydrocodone Bitart ([place] (5/325)) 1 tab Q8 PO Last administered on 01/19/17 06:00; Admin Dose 1 TAB; Start 12/26/16 at 22:00 Cholecalciferol (Vitamin D) 1,000 unit DAILY PO Last administered on 01/19/17 08:11; Admin Dose 1,000 UNIT; Start 12/28/16 at 09:00 Ondansetron HCl 4 mg 4 mg Q6H PRN IV NAUSEA AND/OR VOMITING Last administered on 01/15/17 09:50; Admin Dose 4 MG; Start 01/01/17 at 10:00 Ertapenem/Sodium Chloride (Invanz/NS) 100 ml @ 200 mls/hr Q24H IVPB Last administered on 01/19/17 13:39; Admin Dose 200 MLS/HR; Start 01/06/17 at 14:30 Haloperidol (Haldol) 2 mg Q4H PRN IM AGITATION/ANXIETY Last administered on 22:46; Admin Dose 2 MG; Start 01/08/17 at 01:30 Acetaminophen (Tylenol Tab) 650 mg Q6H PRN PO PAIN AND OR ELEVATED TEMP Last administered on 01/16/17 10:25; Admin Dose 650 MG; Start 01/08/17 at 22:30 Quetiapine Fumarate (Seroquel) 25 mg QHS PRN PO agitation/hallucinations Last administered on 01/09/17 22:15; Admin Dose 25 MG; Start 01/09/17 at 21:00 Morphine Sulfate (morphine) 2 mg Q8H PRN IV PAIN LEVEL 6-10 Last administered on 01/18/17 02:28; Admin Dose 2 MG; Start 01/11/17 at 14:00 Clonidine (Catapres) 0.1 mg Q6H PRN PO hypertension Last administered on 02:41; Admin Dose 0.1 MG; Start 01/14/17 at 02:30 Hydralazine HCl (Apresoline) 25 mg Q6H PRN IV ELEVATED SYSTOLIC BP Last administered on 01/14/17 07:04; Admin Dose 25 MG; Start 01/14/17 at 07:00 Insulin Glargine (Lantus) 5 unit DAILY@20 SC Last administered on 01/18/17 20: 00; Admin Dose 5 UNIT; Start 01/17/17 at 20:00 Vancomycin HCl (Vancomycin Oral Syringe) 125 mg Q6 PO Last administered on 01/19 12:05; Admin Dose 125 MG; Start 01/17/17 at 18:00 Tacrolimus (Prograf) 2 mg Q12 PO Last administered on 01/19/17 08:11; Admin Dose 2 MG; Start 01/18/17 at 09:00 IV Flush (NS 10 ml) 10 ml PRN PRN IV IV PROTOCOL; Start 01/19/17 at 12:30 TIMOTHY CORTES Jan 19, 2017 13:48
[2017-01-19 14:00] VITALS: BP 135/70; RESP 18
[2017-01-19] MEDS: morphine 2 MG INJ IV PRN (16:02)
--- NOTE | 2017-01-19 16:52 | CONS ---
Date/Time of Note Date/Time of Note DATE: 01/19/17 TIME: 16:50 Assessment/Plan Assessment/Plan Chief Complaint/Hosp Course ID PROGRESS NOTE CURRENT ABX: =>Ertapenem + Vanco PO 24H INTERVAL SUMMARY * New PICC today -- otherwise no new events. * PIV was out yesterday with Invanz held until am * s/p 01/13/17 Left AKA * Foot wound Cx (+) WOUND CULTURE Final Organism 1 ESCHERICHIA COLI (ESBL) QUANTITY 1+ . MULTI DRUG RESISTANT ORGANISM ECOLI ESBL M.I.C. RX --------- --- AMPICILLIN >=32 R CEFAZOLIN R CEFEPIME 2 S CEFOTAXIME R CIPROFLOXACIN >=4 R GENTAMICIN 2 S IMIPENEM <=0.25 S LEVOFLOXACIN >=8 R TOBRAMYCIN 2 S TRIMETHOPRIM/SULFAMETHOXAZOLE >=320 R PIPERACILLIN/TAZOBACTAM <=4 S EXAM GEN: VSS, NAD HEENT: Unremarkable NECK: supple CVS: RRR, S1 and S2 CHEST: Equal chest rise bilaterally without dyspnea on observation ABD: Soft, NT, EXT: warm, DSG C/D/I SKIN: No rash, no diaphoresis ID ASSESSMENT 61 yo F admit with: 1. Bilateral lower extremities gangrene secondary to severe peripheral arterial disease, failed debridement and revascularization procedures. * s/p 01/13/17 Left AKA * Pending R-AKA * Foot wound Cx (+) WOUND CULTURE Final Organism 1 ESCHERICHIA COLI (ESBL) QUANTITY 1+ . MULTI DRUG RESISTANT ORGANISM 2. Diabetes. 3. History of kidney transplant in 2009, on immunosuppressive therapy. 4. Diabetes. 5. Hypertension. 6. Hx of E.coli-ESBL UTI 7. ABX associated diarrhea INVASIVES: PICC 01/19/17 ABX ALLERGY: PCN CURRENT ABX: =>Ertapenem + Vanco PO ID RECOMMENDATIONS 1. Continue Ertapenem -> per notes needs R-AKA pending, s/p L-AKA . . Problems: Consultation Date/Type/Reason Admit Date/Time Dec 26, 2016 at 13:22 Initial Consult Date 12/27/16 Type of Consultation: ID Referring Provider: LES GILLILAND Exam/Review of Systems Vital Signs Vitals Vital Signs Date Time Temp Pulse Resp B/P Pulse Ox O2 Delivery O2 Flow Rate FiO2 01/19/17 08:00 98.7 96 20 131/79 98 Intake and Output 01/18/17 01/18/17 01/19/17 15:00 23:00 07:00 Intake Total 950 ml 650 ml Output Total 1100 ml Balance -150 ml 650 ml Results Result Diagram: 01/18/17 1110 01/18/17 1110 Results 24 hrs Laboratory Tests Test 01/18/17 17:38 01/18/17 19:57 01/18/17 20:48 01/19/17 08:09 Bedside Glucose 93 117 109 85 Test 01/19/17 12:04 Bedside Glucose 133 Medications Medications Current Medications Aspirin (Halfprin) 81 mg DAILY PO Last administered on 01/19/17 08:11; Admin Dose 81 MG; Start 12/27/16 at 09:00 Benazepril HCl (Lotensin) 10 mg DAILY PO Last administered on 01/19/17 08:12; Admin Dose 10 MG; Start 12/27/16 at 09:00 Clopidogrel Bisulfate (plaVIX) 75 mg DAILY PO Last administered on 01/19/17 08 :11; Admin Dose 75 MG; Start 12/27/16 at 09:00 Famotidine (Pepcid) 40 mg HS PO Last administered on 01/18/17 20:49; Admin Dose 40 MG; Start 12/26/16 at 21:00 Folic Acid (Folic Acid) 1 mg DAILY PO Last administered on 01/19/17 08:11; Admin Dose 1 MG; Start 12/27/16 at 09:00 Gabapentin (Neurontin) 100 mg TID PO Last administered on 01/19/17 12:05; Admin Dose 100 MG; Start 12/26/16 at 21:00 Metoprolol Tartrate (Lopressor) 75 mg BID PO Last administered on 01/19/17 08: 12; Admin Dose 75 MG; Start 12/26/16 at 21:00 Mycophenolate Mofetil (Cellcept) 1,000 mg BID PO Last administered on 08:11; Admin Dose 1,000 MG; Start 12/26/16 at 21:00 Pantoprazole (Protonix Tab) 40 mg DAILY@06 PO Last administered on 01/19/17 06 :00; Admin Dose 40 MG; Start 12/27/16 at 06:00 Diagnostic Test (Pha) (Accu-Chek) 1 ea 02 XX ; Start 12/27/16 at 02:00 Miscellaneous Information 1 ea NOTE XX ; Start 12/26/16 at 14:30 Glucose (Glutose) 15 gm Q15M PRN PO DECREASED GLUCOSE; Start 12/26/16 at 14:30 Glucose (Glutose) 22.5 gm Q15M PRN PO DECREASED GLUCOSE; Start 12/26/16 at 14:30 Dextrose (D50w Syringe) 25 ml Q15M PRN IV DECREASED GLUCOSE; Start 12/26/16 at 14:30 Dextrose (D50w Syringe) 50 ml Q15M PRN IV DECREASED GLUCOSE; Start 12/26/16 at 14:30 Glucagon (Glucagen) 1 mg Q15M PRN IM DECREASED GLUCOSE; Start 12/26/16 at 14:30 Glucose (Glutose) 15 gm Q15M PRN BUCCAL DECREASED GLUCOSE; Start 12/26/16 at 14: 30 Cholecalciferol (Vitamin D) 1,000 unit DAILY PO Last administered on 01/19/17 08:11; Admin Dose 1,000 UNIT; Start 12/28/16 at 09:00 Ondansetron HCl 4 mg 4 mg Q6H PRN IV NAUSEA AND/OR VOMITING Last administered on 01/15/17 09:50; Admin Dose 4 MG; Start 01/01/17 at 10:00 Ertapenem/Sodium Chloride (Invanz/NS) 100 ml @ 200 mls/hr Q24H IVPB Last administered on 01/19/17 13:39; Admin Dose 200 MLS/HR; Start 01/06/17 at 14:30 Haloperidol (Haldol) 2 mg Q4H PRN IM AGITATION/ANXIETY Last administered on 22:46; Admin Dose 2 MG; Start 01/08/17 at 01:30 Acetaminophen (Tylenol Tab) 650 mg Q6H PRN PO PAIN AND OR ELEVATED TEMP Last administered on 01/16/17 10:25; Admin Dose 650 MG; Start 01/08/17 at 22:30 Quetiapine Fumarate (Seroquel) 25 mg QHS PRN PO agitation/hallucinations Last administered on 01/09/17 22:15; Admin Dose 25 MG; Start 01/09/17 at 21:00 Morphine Sulfate (morphine) 2 mg Q8H PRN IV PAIN LEVEL 6-10 Last administered on 01/19/17 16:02; Admin Dose 2 MG; Start 01/11/17 at 14:00 Clonidine (Catapres) 0.1 mg Q6H PRN PO hypertension Last administered on 02:41; Admin Dose 0.1 MG; Start 01/14/17 at 02:30 Hydralazine HCl (Apresoline) 25 mg Q6H PRN IV ELEVATED SYSTOLIC BP Last administered on 01/14/17 07:04; Admin Dose 25 MG; Start 01/14/17 at 07:00 Insulin Glargine (Lantus) 5 unit DAILY@20 SC Last administered on 01/18/17 20: 00; Admin Dose 5 UNIT; Start 01/17/17 at 20:00 Vancomycin HCl (Vancomycin Oral Syringe) 125 mg Q6 PO Last administered on 01/19 12:05; Admin Dose 125 MG; Start 01/17/17 at 18:00 Tacrolimus (Prograf) 2 mg Q12 PO Last administered on 01/19/17 08:11; Admin Dose 2 MG; Start 01/18/17 at 09:00 IV Flush (NS 10 ml) 10 ml PRN PRN IV IV PROTOCOL; Start 01/19/17 at 12:30 Acetaminophen/ Hydrocodone Bitart ([place] (5/325)) 1 tab Q8H PRN PO PAIN; Start 01/19/17 at 14:30 HAMZAH GARZA NP Jan 19, 2017 16:52
[2017-01-19 20:05] VITALS: BP 187/91; RESP 20
[2017-01-19] MEDS: FAMOTIDINE 20 MG TAB PO SCH (20:39)
[2017-01-19] MEDS: INSULIN GLARGINE [LANtus] 3 ML PEN SC SCH (20:41)
[2017-01-19] MEDS: HYDROCODONE/APAP (5/325) TAB PO PRN (20:49)
[2017-01-19 22:41] VITALS: BP 148/73; PULSE 78
[2017-01-20] MEDS: VANCOMYCIN HCL 250 MG/5ML POSYG PO SCH ×5 (00:17→23:58)
[2017-01-20] MEDS: ACCU-CHEK XX SCH (02:00)
[2017-01-20 02:28] VITALS: BP 147/64; RESP 18
[2017-01-20 05:30] LABS: BASOPHILS % 0.1 % (0.0-2.0); EOSINOPHILS # 0.2 10^3/ul (0.0-0.5); HEMATOCRIT 27.3 % (37.0-47.0); HEMOGLOBIN 8.8 g/dl (12.0-16.0); LYMPHOCYTES # 0.9 10^3/ul (0.8-2.9); LYMPHOCYTES % 11.5 % (15.0-51.0); MEAN CORPUSCULAR HEMOGLOBIN 27.4 pg (29.0-33.0); MEAN CORPUSCULAR HGB CONC 32.2 g/dl (32.0-37.0); MEAN PLATELET VOLUME 10.7 fl (7.4-10.4); MONOCYTES % 13.3 % (0.0-11.0); NEUTROPHIL # 5.7 10^3/ul (1.6-7.5); NEUTROPHILS % 72.7 % (39.0-77.0); PLATELET COUNT 303 10^3/UL (140-415); RED BLOOD COUNT 3.21 10^6/ul (4.20-5.40); RED CELL DISTRIBUTION WIDTH 14.4 % (11.5-14.5); WHITE BLOOD COUNT 7.8 10^3/ul (4.8-10.8)
[2017-01-20 05:53] LABS: CALCIUM 8.7 mg/dl (8.4-10.2); CREATININE 0.5 mg/dl (0.44-1.00); POTASSIUM 3.7 mmol/L (3.5-5.1)
[2017-01-20] MEDS: PANTOPRAZOLE (EC) 40 MG TAB PO SCH (05:54)
[2017-01-20] MEDS: INSULIN ASPART [NOVOLOG] 3 ML PEN SC SCH ×4 (08:00→21:00)
[2017-01-20] MEDS: CLOPIDOGREL 75 MG TAB PO SCH (08:40)
[2017-01-20] MEDS: MYCOPHENOLATE 250 MG CAP PO SCH ×2 (08:44→20:38)
[2017-01-20] MEDS: GABAPENTIN 100 MG CAP PO SCH ×3 (08:45→20:38)
[2017-01-20] MEDS: ASPIRIN (EC) 81 MG TAB PO SCH (08:45)
[2017-01-20] MEDS: FOLIC ACID 1 MG TAB PO SCH (08:45)
[2017-01-20] MEDS: CHOLECALCIFEROL 1,000 UNIT TAB PO SCH (08:45)
[2017-01-20] MEDS: METOPROLOL 25 MG TAB PO SCH ×2 (08:45→20:39)
[2017-01-20] MEDS: BENAZEPRIL 10 MG TAB PO SCH ×2 (08:46→20:39)
[2017-01-20] MEDS: TACROLIMUS 1 MG CAP PO SCH ×2 (08:46→20:38)
[2017-01-20 09:03] VITALS: BP 167/84; RESP 18
--- NOTE | 2017-01-20 11:40 | CONS ---
Date/Time of Note Date/Time of Note DATE: 01/20/17 TIME: 11:36 Assessment/Plan Assessment/Plan Chief Complaint/Hosp Course IMP: 1.Iuu-or-ivetia test 10/2016 with no ischemia/only scar/NL EF. Negative trop x 3. No CP/sob 2.HTN-labile and trending up today 3.PAD with bilateral gangrene s/p L LE amputation 4.DM 5.Anemia 6. Encephalopathy Recc: -Continuer asa/plavix -Cointinue benazepril with slight increase to improve BP -Continue current metoprolol -Local wound care -Continue abx's and f/u cx data -Continue immuonosuppresives -pnding RLE amputation Problems: Consultation Date/Type/Reason Admit Date/Time Dec 26, 2016 at 13:22 Initial Consult Date 12/27/16 Type of Consultation: cardiology Reason for Consultation HTN/pre-op Referring Provider: LES GILLILAND Exam/Review of Systems Vital Signs Vitals Vital Signs Date Time Temp Pulse Resp B/P Pulse Ox O2 Delivery O2 Flow Rate FiO2 01/20/17 09:03 98.2 90 18 167/84 100 Intake and Output 01/19/17 01/19/17 01/20/17 15:00 23:00 07:00 Intake Total 100 ml 750 ml 150 ml Output Total 1100 ml Balance 100 ml -350 ml 150 ml Exam Review of Systems: CONSTITUTIONAL: No fevers, chills. PULMONARY: No sob CARDIOVASCULAR: No chest pain/palpitations GASTROINTESTINAL: Mild abd pain and loose stools GENITOURINARY: No hematuria/dysuria. MUSCULOSKELETAL: No myagias/arthalgias. PSYCHIATRIC: The patient denies depression. NEUROLOGIC: lethargic Constitutional: alert Psych: no complaints Head: normocephalic ENMT: mucosa pink and moist Neck: jvd (9 cm water), supple Respiratory: diminished breath sounds (at bases/B) Cardiovascular: regular rate and rhythm Gastrointestinal: non-tender, soft Musculoskeletal: muscle weakness (generalized) Extremities: edema Neurological: other (No focal deficits) Results Result Diagram: 01/20/17 0434 01/20/17 0434 Results 24 hrs Laboratory Tests Test 01/19/17 12:04 01/19/17 17:20 01/19/17 20:35 01/20/17 04:34 Bedside Glucose 133 102 112 White Blood Count 7.8 # Red Blood Count 3.21 L Hemoglobin 8.8 L Hematocrit 27.3 L Mean Corpuscular Volume 85.0 Mean Corpuscular Hemoglobin 27.4 L Mean Corpuscular Hemoglobin Concent 32.2 Red Cell Distribution Width 14.4 Platelet Count 303 Mean Platelet Volume 10.7 H Neutrophils % 72.7 Lymphocytes % 11.5 L Monocytes % 13.3 H Eosinophils % 2.0 Basophils % 0.1 Nucleated Red Blood Cells % 0.0 Neutrophils # 5.7 Lymphocytes # 0.9 Monocytes # 1.0 H Eosinophils # 0.2 Basophils # 0.0 Nucleated Red Blood Cells # 0.0 Sodium Level 136 Potassium Level 3.7 Chloride Level 104 Carbon Dioxide Level 26 Anion Gap 10 Blood Urea Nitrogen 7 Creatinine 0.50 Glucose Level 88 Calcium Level 8.7 Test 01/20/17 08:02 Bedside Glucose 97 Medications Medications Current Medications Aspirin (Halfprin) 81 mg DAILY PO Last administered on 01/20/17 08:45; Admin Dose 81 MG; Start 12/27/16 at 09:00 Benazepril HCl (Lotensin) 10 mg DAILY PO Last administered on 01/20/17 08:46; Admin Dose 10 MG; Start 12/27/16 at 09:00 Clopidogrel Bisulfate (plaVIX) 75 mg DAILY PO Last administered on 01/20/17 08 :40; Admin Dose 75 MG; Start 12/27/16 at 09:00 Famotidine (Pepcid) 40 mg HS PO Last administered on 01/19/17 20:39; Admin Dose 40 MG; Start 12/26/16 at 21:00 Folic Acid (Folic Acid) 1 mg DAILY PO Last administered on 01/20/17 08:45; Admin Dose 1 MG; Start 12/27/16 at 09:00 Gabapentin (Neurontin) 100 mg TID PO Last administered on 01/20/17 08:45; Admin Dose 100 MG; Start 12/26/16 at 21:00 Metoprolol Tartrate (Lopressor) 75 mg BID PO Last administered on 01/20/17 08: 45; Admin Dose 75 MG; Start 12/26/16 at 21:00 Mycophenolate Mofetil (Cellcept) 1,000 mg BID PO Last administered on 08:44; Admin Dose 1,000 MG; Start 12/26/16 at 21:00 Pantoprazole (Protonix Tab) 40 mg DAILY@06 PO Last administered on 01/20/17 05 :54; Admin Dose 40 MG; Start 12/27/16 at 06:00 Diagnostic Test (Pha) (Accu-Chek) 1 ea 02 XX ; Start 12/27/16 at 02:00 Miscellaneous Information 1 ea NOTE XX ; Start 12/26/16 at 14:30 Glucose (Glutose) 15 gm Q15M PRN PO DECREASED GLUCOSE; Start 12/26/16 at 14:30 Glucose (Glutose) 22.5 gm Q15M PRN PO DECREASED GLUCOSE; Start 12/26/16 at 14:30 Dextrose (D50w Syringe) 25 ml Q15M PRN IV DECREASED GLUCOSE; Start 12/26/16 at 14:30 Dextrose (D50w Syringe) 50 ml Q15M PRN IV DECREASED GLUCOSE; Start 12/26/16 at 14:30 Glucagon (Glucagen) 1 mg Q15M PRN IM DECREASED GLUCOSE; Start 12/26/16 at 14:30 Glucose (Glutose) 15 gm Q15M PRN BUCCAL DECREASED GLUCOSE; Start 12/26/16 at 14: 30 Cholecalciferol (Vitamin D) 1,000 unit DAILY PO Last administered on 01/20/17 08:45; Admin Dose 1,000 UNIT; Start 12/28/16 at 09:00 Ondansetron HCl 4 mg 4 mg Q6H PRN IV NAUSEA AND/OR VOMITING Last administered on 01/15/17 09:50; Admin Dose 4 MG; Start 01/01/17 at 10:00 Ertapenem/Sodium Chloride (Invanz/NS) 100 ml @ 200 mls/hr Q24H IVPB Last administered on 01/19/17 13:39; Admin Dose 200 MLS/HR; Start 01/06/17 at 14:30 Haloperidol (Haldol) 2 mg Q4H PRN IM AGITATION/ANXIETY Last administered on 22:46; Admin Dose 2 MG; Start 01/08/17 at 01:30 Acetaminophen (Tylenol Tab) 650 mg Q6H PRN PO PAIN AND OR ELEVATED TEMP Last administered on 01/16/17 10:25; Admin Dose 650 MG; Start 01/08/17 at 22:30 Quetiapine Fumarate (Seroquel) 25 mg QHS PRN PO agitation/hallucinations Last administered on 01/09/17 22:15; Admin Dose 25 MG; Start 01/09/17 at 21:00 Morphine Sulfate (morphine) 2 mg Q8H PRN IV PAIN LEVEL 6-10 Last administered on 01/19/17 16:02; Admin Dose 2 MG; Start 01/11/17 at 14:00 Clonidine (Catapres) 0.1 mg Q6H PRN PO hypertension Last administered on 02:41; Admin Dose 0.1 MG; Start 01/14/17 at 02:30 Hydralazine HCl (Apresoline) 25 mg Q6H PRN IV ELEVATED SYSTOLIC BP Last administered on 01/14/17 07:04; Admin Dose 25 MG; Start 01/14/17 at 07:00 Insulin Glargine (Lantus) 5 unit DAILY@20 SC Last administered on 01/19/17 20: 41; Admin Dose 5 UNIT; Start 01/17/17 at 20:00 Vancomycin HCl (Vancomycin Oral Syringe) 125 mg Q6 PO Last administered on 01/20 05:54; Admin Dose 125 MG; Start 01/17/17 at 18:00 Tacrolimus (Prograf) 2 mg Q12 PO Last administered on 01/20/17 08:46; Admin Dose 2 MG; Start 01/18/17 at 09:00 IV Flush (NS 10 ml) 10 ml PRN PRN IV IV PROTOCOL; Start 01/19/17 at 12:30 Acetaminophen/ Hydrocodone Bitart ([place] (5/325)) 1 tab Q8H PRN PO PAIN Last administered on 01/19/17 20:49; Admin Dose 1 TAB; Start 01/19/17 at 14:30 TIMOTHY CORTES Jan 20, 2017 11:40
[2017-01-20] MEDS: ERTAPENEM SODIUM 1 GM in SOD CHLORIDE 0.9% 100 ML IVPB SCH (15:40)
[2017-01-20 16:42] VITALS: BP 162/68; RESP 18
--- NOTE | 2017-01-20 17:40 | CONS ---
Date/Time of Note Date/Time of Note DATE: 01/20/17 TIME: 17:39 Assessment/Plan Assessment/Plan Additional Assessment/Plan 1. 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 h/o donor kidney transplant in 2009 at [facility], currently on immunosuppression with Prograf, CellCept 4. 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 History of hypertension. 6. History of diabetes mellitus. 7. History of previous left upper extremity arteriovenous fistula. 8. Hyponatremia due to hypovolemic hyponatremia post op 9. -CT chest+ abd+pelvis with and without contrast negative for mass/LAD/ Malignancy Plan: continue Current immunosuppression Prograf and cellcept, Cr normal, s/p Left AKA- Post op care as per surgery d/c IV Fluids, Cr and electrolytes stable IV abx as per ID will follow up Consultation Date/Type/Reason Admit Date/Time Dec 26, 2016 at 13:22 Initial Consult Date 12/27/16 Type of Consultation: NEPHROLOGY Referring Provider: LES GILLILAND 24 HR Interval Summary Free Text/Dictation cr and elctrolyes stable, BP stable, afebrile Exam/Review of Systems Vital Signs Vitals Vital Signs Date Time Temp Pulse Resp B/P Pulse Ox O2 Delivery O2 Flow Rate FiO2 01/20/17 16:42 98.8 99 18 162/68 99 Intake and Output 01/19/17 01/19/17 01/20/17 15:00 23:00 07:00 Intake Total 100 ml 750 ml 150 ml Output Total 1100 ml Balance 100 ml -350 ml 150 ml Exam GEN: fragile elderly woman who is awake in no distress. HEENT: Head atraumatic, normocephalic. Sclerae anicteric. NECK: Supple. CHEST: Rise symmetrical. Breath sounds clear. HEART: S1, S2. ABDOMEN: Soft, bowel sounds present. left BKA dressing clean Results Result Diagram: 01/20/17 0434 01/20/17 0434 Results 24 hrs Laboratory Tests Test 01/19/17 20:35 01/20/17 04:34 01/20/17 08:02 01/20/17 11:54 Bedside Glucose 112 97 141 White Blood Count 7.8 # Red Blood Count 3.21 L Hemoglobin 8.8 L Hematocrit 27.3 L Mean Corpuscular Volume 85.0 Mean Corpuscular Hemoglobin 27.4 L Mean Corpuscular Hemoglobin Concent 32.2 Red Cell Distribution Width 14.4 Platelet Count 303 Mean Platelet Volume 10.7 H Neutrophils % 72.7 Lymphocytes % 11.5 L Monocytes % 13.3 H Eosinophils % 2.0 Basophils % 0.1 Nucleated Red Blood Cells % 0.0 Neutrophils # 5.7 Lymphocytes # 0.9 Monocytes # 1.0 H Eosinophils # 0.2 Basophils # 0.0 Nucleated Red Blood Cells # 0.0 Sodium Level 136 Potassium Level 3.7 Chloride Level 104 Carbon Dioxide Level 26 Anion Gap 10 Blood Urea Nitrogen 7 Creatinine 0.50 Glucose Level 88 Calcium Level 8.7 Test 01/20/17 17:34 Bedside Glucose 147 Medications Medications Current Medications Aspirin (Halfprin) 81 mg DAILY PO Last administered on 01/20/17 08:45; Admin Dose 81 MG; Start 12/27/16 at 09:00 Clopidogrel Bisulfate (plaVIX) 75 mg DAILY PO Last administered on 01/20/17 08 :40; Admin Dose 75 MG; Start 12/27/16 at 09:00 Famotidine (Pepcid) 40 mg HS PO Last administered on 01/19/17 20:39; Admin Dose 40 MG; Start 12/26/16 at 21:00 Folic Acid (Folic Acid) 1 mg DAILY PO Last administered on 01/20/17 08:45; Admin Dose 1 MG; Start 12/27/16 at 09:00 Gabapentin (Neurontin) 100 mg TID PO Last administered on 01/20/17 12:34; Admin Dose 100 MG; Start 12/26/16 at 21:00 Metoprolol Tartrate (Lopressor) 75 mg BID PO Last administered on 01/20/17 08: 45; Admin Dose 75 MG; Start 12/26/16 at 21:00 Mycophenolate Mofetil (Cellcept) 1,000 mg BID PO Last administered on 08:44; Admin Dose 1,000 MG; Start 12/26/16 at 21:00 Pantoprazole (Protonix Tab) 40 mg DAILY@06 PO Last administered on 01/20/17 05 :54; Admin Dose 40 MG; Start 12/27/16 at 06:00 Diagnostic Test (Pha) (Accu-Chek) 1 ea 02 XX ; Start 12/27/16 at 02:00 Miscellaneous Information 1 ea NOTE XX ; Start 12/26/16 at 14:30 Glucose (Glutose) 15 gm Q15M PRN PO DECREASED GLUCOSE; Start 12/26/16 at 14:30 Glucose (Glutose) 22.5 gm Q15M PRN PO DECREASED GLUCOSE; Start 12/26/16 at 14:30 Dextrose (D50w Syringe) 25 ml Q15M PRN IV DECREASED GLUCOSE; Start 12/26/16 at 14:30 Dextrose (D50w Syringe) 50 ml Q15M PRN IV DECREASED GLUCOSE; Start 12/26/16 at 14:30 Glucagon (Glucagen) 1 mg Q15M PRN IM DECREASED GLUCOSE; Start 12/26/16 at 14:30 Glucose (Glutose) 15 gm Q15M PRN BUCCAL DECREASED GLUCOSE; Start 12/26/16 at 14: 30 Cholecalciferol (Vitamin D) 1,000 unit DAILY PO Last administered on 01/20/17 08:45; Admin Dose 1,000 UNIT; Start 12/28/16 at 09:00 Ondansetron HCl 4 mg 4 mg Q6H PRN IV NAUSEA AND/OR VOMITING Last administered on 01/15/17 09:50; Admin Dose 4 MG; Start 01/01/17 at 10:00 Ertapenem/Sodium Chloride (Invanz/NS) 100 ml @ 200 mls/hr Q24H IVPB Last administered on 01/20/17 15:40; Admin Dose 200 MLS/HR; Start 01/06/17 at 14:30 Haloperidol (Haldol) 2 mg Q4H PRN IM AGITATION/ANXIETY Last administered on 22:46; Admin Dose 2 MG; Start 01/08/17 at 01:30 Acetaminophen (Tylenol Tab) 650 mg Q6H PRN PO PAIN AND OR ELEVATED TEMP Last administered on 01/16/17 10:25; Admin Dose 650 MG; Start 01/08/17 at 22:30 Quetiapine Fumarate (Seroquel) 25 mg QHS PRN PO agitation/hallucinations Last administered on 01/09/17 22:15; Admin Dose 25 MG; Start 01/09/17 at 21:00 Morphine Sulfate (morphine) 2 mg Q8H PRN IV PAIN LEVEL 6-10 Last administered on 01/19/17 16:02; Admin Dose 2 MG; Start 01/11/17 at 14:00 Clonidine (Catapres) 0.1 mg Q6H PRN PO hypertension Last administered on 02:41; Admin Dose 0.1 MG; Start 01/14/17 at 02:30 Hydralazine HCl (Apresoline) 25 mg Q6H PRN IV ELEVATED SYSTOLIC BP Last administered on 01/14/17 07:04; Admin Dose 25 MG; Start 01/14/17 at 07:00 Insulin Glargine (Lantus) 5 unit DAILY@20 SC Last administered on 01/19/17 20: 41; Admin Dose 5 UNIT; Start 01/17/17 at 20:00 Vancomycin HCl (Vancomycin Oral Syringe) 125 mg Q6 PO Last administered on 01/20 17:34; Admin Dose 125 MG; Start 01/17/17 at 18:00 Tacrolimus (Prograf) 2 mg Q12 PO Last administered on 01/20/17 08:46; Admin Dose 2 MG; Start 01/18/17 at 09:00 IV Flush (NS 10 ml) 10 ml PRN PRN IV IV PROTOCOL; Start 01/19/17 at 12:30 Acetaminophen/ Hydrocodone Bitart ([place] (5/325)) 1 tab Q8H PRN PO PAIN Last administered on 01/19/17 20:49; Admin Dose 1 TAB; Start 01/19/17 at 14:30 Benazepril HCl (Lotensin) 10 mg BID PO ; Start 01/20/17 at 21:00 RAMON KEMP MD Jan 20, 2017 17:40
--- NOTE | 2017-01-20 19:41 | PN ---
Date/Time of Note Date/Time of Note DATE: 01/20/17 TIME: 19:38 Assessment/Plan VTE Prophylaxis VTE Prophylaxis Intervention: SCD's Lines/Catheters IV Catheter Type (from [facility]): PICC Line Central line still needed: Yes Urinary Cath still in place: No Assessment/Plan Chief Complaint/Hosp Course Patient complains of left lower extremities pain. Assessment/Plan - Acute encephalopathy, resolved. CT brain is negative for any acute pathology. 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 S/p left AKA 01/[address] Valencia, vascular surgery. - Diabetes mellitus type II. Continue Lantus and NovoLog. - History of kidney transplant in 2009, on immunosuppressive therapy. - Hypertension. Continue metoprolol, benazepril. 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 - Anemia of chronic kidney disease. Further recommendations based on clinical course. Plan of care discussed with Dr. Cohen Problems: Exam/Review of Systems Vital Signs Vitals Vital Signs Date Time Temp Pulse Resp B/P Pulse Ox O2 Delivery O2 Flow Rate FiO2 01/20/17 16:42 98.8 99 18 162/68 99 Intake and Output 01/19/17 01/19/17 01/20/17 15:00 23:00 07:00 Intake Total 100 ml 750 ml 150 ml Output Total 1100 ml Balance 100 ml -350 ml 150 ml Exam Constitutional: awake, alert Neck: supple Respiratory: clear to auscultation Cardiovascular: nl pulses Gastrointestinal: non-tender, soft Extremities: other (S/p LAKA) Results Result Diagram: 01/20/17 0434 01/20/17 0434 Results 24 hrs Laboratory Tests Test 01/19/17 20:35 01/20/17 04:34 01/20/17 08:02 01/20/17 11:54 Bedside Glucose 112 97 141 White Blood Count 7.8 # Red Blood Count 3.21 L Hemoglobin 8.8 L Hematocrit 27.3 L Mean Corpuscular Volume 85.0 Mean Corpuscular Hemoglobin 27.4 L Mean Corpuscular Hemoglobin Concent 32.2 Red Cell Distribution Width 14.4 Platelet Count 303 Mean Platelet Volume 10.7 H Neutrophils % 72.7 Lymphocytes % 11.5 L Monocytes % 13.3 H Eosinophils % 2.0 Basophils % 0.1 Nucleated Red Blood Cells % 0.0 Neutrophils # 5.7 Lymphocytes # 0.9 Monocytes # 1.0 H Eosinophils # 0.2 Basophils # 0.0 Nucleated Red Blood Cells # 0.0 Sodium Level 136 Potassium Level 3.7 Chloride Level 104 Carbon Dioxide Level 26 Anion Gap 10 Blood Urea Nitrogen 7 Creatinine 0.50 Glucose Level 88 Calcium Level 8.7 Test 01/20/17 17:34 Bedside Glucose 147 Medications Medications Current Medications Aspirin (Halfprin) 81 mg DAILY PO Last administered on 01/20/17 08:45; Admin Dose 81 MG; Start 12/27/16 at 09:00 Clopidogrel Bisulfate (plaVIX) 75 mg DAILY PO Last administered on 01/20/17 08 :40; Admin Dose 75 MG; Start 12/27/16 at 09:00 Famotidine (Pepcid) 40 mg HS PO Last administered on 01/19/17 20:39; Admin Dose 40 MG; Start 12/26/16 at 21:00 Folic Acid (Folic Acid) 1 mg DAILY PO Last administered on 01/20/17 08:45; Admin Dose 1 MG; Start 12/27/16 at 09:00 Gabapentin (Neurontin) 100 mg TID PO Last administered on 01/20/17 12:34; Admin Dose 100 MG; Start 12/26/16 at 21:00 Metoprolol Tartrate (Lopressor) 75 mg BID PO Last administered on 01/20/17 08: 45; Admin Dose 75 MG; Start 12/26/16 at 21:00 Mycophenolate Mofetil (Cellcept) 1,000 mg BID PO Last administered on 08:44; Admin Dose 1,000 MG; Start 12/26/16 at 21:00 Pantoprazole (Protonix Tab) 40 mg DAILY@06 PO Last administered on 01/20/17 05 :54; Admin Dose 40 MG; Start 12/27/16 at 06:00 Diagnostic Test (Pha) (Accu-Chek) 1 ea 02 XX ; Start 12/27/16 at 02:00 Miscellaneous Information 1 ea NOTE XX ; Start 12/26/16 at 14:30 Glucose (Glutose) 15 gm Q15M PRN PO DECREASED GLUCOSE; Start 12/26/16 at 14:30 Glucose (Glutose) 22.5 gm Q15M PRN PO DECREASED GLUCOSE; Start 12/26/16 at 14:30 Dextrose (D50w Syringe) 25 ml Q15M PRN IV DECREASED GLUCOSE; Start 12/26/16 at 14:30 Dextrose (D50w Syringe) 50 ml Q15M PRN IV DECREASED GLUCOSE; Start 12/26/16 at 14:30 Glucagon (Glucagen) 1 mg Q15M PRN IM DECREASED GLUCOSE; Start 12/26/16 at 14:30 Glucose (Glutose) 15 gm Q15M PRN BUCCAL DECREASED GLUCOSE; Start 12/26/16 at 14: 30 Cholecalciferol (Vitamin D) 1,000 unit DAILY PO Last administered on 01/20/17 08:45; Admin Dose 1,000 UNIT; Start 12/28/16 at 09:00 Ondansetron HCl 4 mg 4 mg Q6H PRN IV NAUSEA AND/OR VOMITING Last administered on 01/15/17 09:50; Admin Dose 4 MG; Start 01/01/17 at 10:00 Ertapenem/Sodium Chloride (Invanz/NS) 100 ml @ 200 mls/hr Q24H IVPB Last administered on 01/20/17 15:40; Admin Dose 200 MLS/HR; Start 01/06/17 at 14:30 Haloperidol (Haldol) 2 mg Q4H PRN IM AGITATION/ANXIETY Last administered on 22:46; Admin Dose 2 MG; Start 01/08/17 at 01:30 Acetaminophen (Tylenol Tab) 650 mg Q6H PRN PO PAIN AND OR ELEVATED TEMP Last administered on 01/16/17 10:25; Admin Dose 650 MG; Start 01/08/17 at 22:30 Quetiapine Fumarate (Seroquel) 25 mg QHS PRN PO agitation/hallucinations Last administered on 01/09/17 22:15; Admin Dose 25 MG; Start 01/09/17 at 21:00 Morphine Sulfate (morphine) 2 mg Q8H PRN IV PAIN LEVEL 6-10 Last administered on 01/19/17 16:02; Admin Dose 2 MG; Start 01/11/17 at 14:00 Clonidine (Catapres) 0.1 mg Q6H PRN PO hypertension Last administered on 02:41; Admin Dose 0.1 MG; Start 01/14/17 at 02:30 Hydralazine HCl (Apresoline) 25 mg Q6H PRN IV ELEVATED SYSTOLIC BP Last administered on 01/14/17 07:04; Admin Dose 25 MG; Start 01/14/17 at 07:00 Insulin Glargine (Lantus) 5 unit DAILY@20 SC Last administered on 01/19/17 20: 41; Admin Dose 5 UNIT; Start 01/17/17 at 20:00 Vancomycin HCl (Vancomycin Oral Syringe) 125 mg Q6 PO Last administered on 01/20 17:34; Admin Dose 125 MG; Start 01/17/17 at 18:00 Tacrolimus (Prograf) 2 mg Q12 PO Last administered on 01/20/17 08:46; Admin Dose 2 MG; Start 01/18/17 at 09:00 IV Flush (NS 10 ml) 10 ml PRN PRN IV IV PROTOCOL; Start 01/19/17 at 12:30 Acetaminophen/ Hydrocodone Bitart ([place] (5/325)) 1 tab Q8H PRN PO PAIN Last administered on 01/19/17 20:49; Admin Dose 1 TAB; Start 01/19/17 at 14:30 Benazepril HCl (Lotensin) 10 mg BID PO ; Start 01/20/17 at 21:00 LES GILLILAND Jan 20, 2017 19:41
[2017-01-20] MEDS: INSULIN GLARGINE [LANtus] 3 ML PEN SC SCH (20:37)
[2017-01-20] MEDS: FAMOTIDINE 20 MG TAB PO SCH (20:38)
[2017-01-20] MEDS: HYDROCODONE/APAP (5/325) TAB PO PRN (20:49)
[2017-01-20 21:09] VITALS: BP 105/51; RESP 18
[2017-01-21] MEDS: ACCU-CHEK XX SCH (02:00)
[2017-01-21 02:48] VITALS: BP 119/61; RESP 18
[2017-01-21] MEDS: PANTOPRAZOLE (EC) 40 MG TAB PO SCH (05:44)
[2017-01-21] MEDS: VANCOMYCIN HCL 250 MG/5ML POSYG PO SCH ×4 (05:44→23:37)
[2017-01-21 06:00] LABS: BASOPHILS % 0.3 % (0.0-2.0); EOSINOPHILS # 0.1 10^3/ul (0.0-0.5); EOSINOPHILS % 1.6 % (0.0-7.0); HEMATOCRIT 25.2 % (37.0-47.0); HEMOGLOBIN 8.4 g/dl (12.0-16.0); LYMPHOCYTES % 13.4 % (15.0-51.0); MEAN CORPUSCULAR HEMOGLOBIN 28.8 pg (29.0-33.0); MEAN CORPUSCULAR HGB CONC 33.3 g/dl (32.0-37.0); MEAN CORPUSCULAR VOLUME 86.3 fl (82.0-101.0); MEAN PLATELET VOLUME 10.4 fl (7.4-10.4); NEUTROPHIL # 5.4 10^3/ul (1.6-7.5); NEUTROPHILS % 71.3 % (39.0-77.0); PLATELET COUNT 300 10^3/UL (140-415); RED BLOOD COUNT 2.92 10^6/ul (4.20-5.40); RED CELL DISTRIBUTION WIDTH 14.3 % (11.5-14.5); WHITE BLOOD COUNT 7.5 10^3/ul (4.8-10.8)
--- NOTE | 2017-01-21 06:32 | PN ---
DATE: 01/20/2017 SUBJECTIVE DATA: No acute events. Patient is awake, looks comfortable. No fevers. LABORATORY AND DIAGNOSTIC DATA: WBC today is 7.8, H and H 8.8 and 27.3, platelets 303; neutrophils 72.7. BUN 7, creatinine 0.5. ANTIMICROBIALS: Patient remains on Invanz and oral vancomycin. OBJECTIVE DATA: GENERAL: Chronically ill-appearing, elderly woman, who is awake, in no distress. HEENT: Head atraumatic, normocephalic. Sclerae anicteric. Buccal mucosa dry. NECK: Supple. CHEST: Rise symmetrical. Breath sounds diminished at the bases. HEART: S1, S2. ABDOMEN: Soft, bowel sounds present. EXTREMITIES: With left above-knee amputation. The right foot dressing intact. ASSESSMENT: 1. Bilateral lower extremities gangrene, status post left above- knee amputation. 2. Severe peripheral arterial disease, failed multiple revascularization procedures. 3. History of kidney transplant, remains on immunosuppressive therapy. 4. Resolved diarrhea, on empiric oral vancomycin. 5. Diabetes. 6. History of fbqaskpg-rhojelpw-bpvo-lactamase urinary tract infection. PLAN: Patient remains stable. White blood cell count tracing down. She is afebrile. She is being followed by multiple consultants. Continue on current antibiotics. Continue right foot wound management as per vascular team. Dictated By: Brittany De NP /santiago/karen /Document#: [id number]
[2017-01-21 06:42] LABS: CALCIUM 8.8 mg/dl (8.4-10.2); CREATININE 0.55 mg/dl (0.44-1.00); POTASSIUM 3.7 mmol/L (3.5-5.1)
[2017-01-21 07:28] VITALS: BP 153/67; RESP 18
[2017-01-21] MEDS: INSULIN ASPART [NOVOLOG] 3 ML PEN SC SCH ×4 (08:00→20:55)
[2017-01-21] MEDS: MYCOPHENOLATE 250 MG CAP PO SCH ×2 (09:49→20:51)
[2017-01-21] MEDS: ASPIRIN (EC) 81 MG TAB PO SCH (09:49)
[2017-01-21] MEDS: FOLIC ACID 1 MG TAB PO SCH (09:49)
[2017-01-21] MEDS: METOPROLOL 25 MG TAB PO SCH ×2 (09:50→20:52)
[2017-01-21] MEDS: GABAPENTIN 100 MG CAP PO SCH ×3 (09:51→20:52)
[2017-01-21] MEDS: BENAZEPRIL 10 MG TAB PO SCH ×2 (09:51→20:53)
[2017-01-21] MEDS: CLOPIDOGREL 75 MG TAB PO SCH (09:51)
[2017-01-21] MEDS: TACROLIMUS 1 MG CAP PO SCH ×2 (09:51→20:51)
[2017-01-21] MEDS: CHOLECALCIFEROL 1,000 UNIT TAB PO SCH (09:51)
[2017-01-21] MEDS: HYDROCODONE/APAP (5/325) TAB PO PRN (09:58)
[2017-01-21] MEDS: ERTAPENEM SODIUM 1 GM in SOD CHLORIDE 0.9% 100 ML IVPB SCH (13:37)
[2017-01-21 14:12] VITALS: BP 102/54; RESP 18
--- NOTE | 2017-01-21 14:23 | CONS ---
Date/Time of Note Date/Time of Note DATE: 01/21/17 TIME: 14:22 Assessment/Plan Assessment/Plan Chief Complaint/Hosp Course SUBJECTIVE DATA: No acute events. Patient is awake, looks comfortable. No fevers. ANTIMICROBIALS: Patient remains on Invanz and oral vancomycin. OBJECTIVE DATA: GENERAL: Chronically ill-appearing, elderly woman, who is awake, in no distress. HEENT: Head atraumatic, normocephalic. Sclerae anicteric. Buccal mucosa dry. NECK: Supple. CHEST: Rise symmetrical. Breath sounds diminished at the bases. HEART: S1, S2. ABDOMEN: Soft, bowel sounds present. EXTREMITIES: With left above-knee amputation. The right foot dressing intact. ASSESSMENT: 1. Bilateral lower extremities gangrene, status post left above- knee amputation. 2. Severe peripheral arterial disease, failed multiple revascularization procedures. 3. History of kidney transplant, remains on immunosuppressive therapy. 4. Resolved diarrhea, on empiric oral vancomycin. 5. Diabetes. 6. History of ruczvwvx-ywdftwfe-bplg-lactamase urinary tract infection. 7. R foot gangrene with open wound==> cx + E coli ESBL PLAN: Patient remains stable. White blood cell count tracing down. She is afebrile. She is being followed by multiple consultants. Continue on current antibiotics. Continue right foot wound management as per vascular team. Problems: Consultation Date/Type/Reason Admit Date/Time Dec 26, 2016 at 13:22 Initial Consult Date 12/27/16 Type of Consultation: ID Referring Provider: LES GILLILAND Exam/Review of Systems Vital Signs Vitals Vital Signs Date Time Temp Pulse Resp B/P Pulse Ox O2 Delivery O2 Flow Rate FiO2 01/21/17 14:12 98.3 72 18 102/54 98 Intake and Output 01/20/17 01/20/17 01/21/17 15:00 23:00 07:00 Intake Total 700 ml 250 ml Balance 700 ml 250 ml Results Result Diagram: 01/21/17 0515 01/21/17 0454 Results 24 hrs Laboratory Tests Test 01/20/17 17:34 01/20/17 20:25 01/21/17 04:54 01/21/17 05:15 Bedside Glucose 147 111 Sodium Level 133 L Potassium Level 3.7 Chloride Level 101 Carbon Dioxide Level 27 Anion Gap 9 Blood Urea Nitrogen 7 Creatinine 0.55 Glucose Level 85 Calcium Level 8.8 White Blood Count 7.5 Red Blood Count 2.92 L Hemoglobin 8.4 L Hematocrit 25.2 L Mean Corpuscular Volume 86.3 Mean Corpuscular Hemoglobin 28.8 L Mean Corpuscular Hemoglobin Concent 33.3 Red Cell Distribution Width 14.3 Platelet Count 300 Mean Platelet Volume 10.4 Neutrophils % 71.3 Lymphocytes % 13.4 L Monocytes % 13.0 H Eosinophils % 1.6 Basophils % 0.3 Nucleated Red Blood Cells % 0.0 Neutrophils # 5.4 Lymphocytes # 1.0 Monocytes # 1.0 H Eosinophils # 0.1 Basophils # 0.0 Nucleated Red Blood Cells # 0.0 Test 01/21/17 08:05 01/21/17 12:11 Bedside Glucose 91 118 Medications Medications Current Medications Aspirin (Halfprin) 81 mg DAILY PO Last administered on 01/21/17 09:49; Admin Dose 81 MG; Start 12/27/16 at 09:00 Clopidogrel Bisulfate (plaVIX) 75 mg DAILY PO Last administered on 01/21/17 09 :51; Admin Dose 75 MG; Start 12/27/16 at 09:00 Famotidine (Pepcid) 40 mg HS PO Last administered on 01/20/17 20:38; Admin Dose 40 MG; Start 12/26/16 at 21:00 Folic Acid (Folic Acid) 1 mg DAILY PO Last administered on 01/21/17 09:49; Admin Dose 1 MG; Start 12/27/16 at 09:00 Gabapentin (Neurontin) 100 mg TID PO Last administered on 01/21/17 12:14; Admin Dose 100 MG; Start 12/26/16 at 21:00 Metoprolol Tartrate (Lopressor) 75 mg BID PO Last administered on 01/21/17 09: 50; Admin Dose 75 MG; Start 12/26/16 at 21:00 Mycophenolate Mofetil (Cellcept) 1,000 mg BID PO Last administered on 09:49; Admin Dose 1,000 MG; Start 12/26/16 at 21:00 Pantoprazole (Protonix Tab) 40 mg DAILY@06 PO Last administered on 01/21/17 05 :44; Admin Dose 40 MG; Start 12/27/16 at 06:00 Diagnostic Test (Pha) (Accu-Chek) 1 ea 02 XX ; Start 12/27/16 at 02:00 Miscellaneous Information 1 ea NOTE XX ; Start 12/26/16 at 14:30 Glucose (Glutose) 15 gm Q15M PRN PO DECREASED GLUCOSE; Start 12/26/16 at 14:30 Glucose (Glutose) 22.5 gm Q15M PRN PO DECREASED GLUCOSE; Start 12/26/16 at 14:30 Dextrose (D50w Syringe) 25 ml Q15M PRN IV DECREASED GLUCOSE; Start 12/26/16 at 14:30 Dextrose (D50w Syringe) 50 ml Q15M PRN IV DECREASED GLUCOSE; Start 12/26/16 at 14:30 Glucagon (Glucagen) 1 mg Q15M PRN IM DECREASED GLUCOSE; Start 12/26/16 at 14:30 Glucose (Glutose) 15 gm Q15M PRN BUCCAL DECREASED GLUCOSE; Start 12/26/16 at 14: 30 Cholecalciferol (Vitamin D) 1,000 unit DAILY PO Last administered on 01/21/17 09:51; Admin Dose 1,000 UNIT; Start 12/28/16 at 09:00 Ondansetron HCl 4 mg 4 mg Q6H PRN IV NAUSEA AND/OR VOMITING Last administered on 01/15/17 09:50; Admin Dose 4 MG; Start 01/01/17 at 10:00 Ertapenem/Sodium Chloride (Invanz/NS) 100 ml @ 200 mls/hr Q24H IVPB Last administered on 01/21/17 13:37; Admin Dose 200 MLS/HR; Start 01/06/17 at 14:30 Haloperidol (Haldol) 2 mg Q4H PRN IM AGITATION/ANXIETY Last administered on 22:46; Admin Dose 2 MG; Start 01/08/17 at 01:30 Acetaminophen (Tylenol Tab) 650 mg Q6H PRN PO PAIN AND OR ELEVATED TEMP Last administered on 01/16/17 10:25; Admin Dose 650 MG; Start 01/08/17 at 22:30 Quetiapine Fumarate (Seroquel) 25 mg QHS PRN PO agitation/hallucinations Last administered on 01/09/17 22:15; Admin Dose 25 MG; Start 01/09/17 at 21:00 Morphine Sulfate (morphine) 2 mg Q8H PRN IV PAIN LEVEL 6-10 Last administered on 01/19/17 16:02; Admin Dose 2 MG; Start 01/11/17 at 14:00 Clonidine (Catapres) 0.1 mg Q6H PRN PO hypertension Last administered on 02:41; Admin Dose 0.1 MG; Start 01/14/17 at 02:30 Hydralazine HCl (Apresoline) 25 mg Q6H PRN IV ELEVATED SYSTOLIC BP Last administered on 01/14/17 07:04; Admin Dose 25 MG; Start 01/14/17 at 07:00 Insulin Glargine (Lantus) 5 unit DAILY@20 SC Last administered on 01/20/17 20: 37; Admin Dose 5 UNIT; Start 01/17/17 at 20:00 Vancomycin HCl (Vancomycin Oral Syringe) 125 mg Q6 PO Last administered on 01/21 12:13; Admin Dose 125 MG; Start 01/17/17 at 18:00 Tacrolimus (Prograf) 2 mg Q12 PO Last administered on 01/21/17 09:51; Admin Dose 2 MG; Start 01/18/17 at 09:00 IV Flush (NS 10 ml) 10 ml PRN PRN IV IV PROTOCOL; Start 01/19/17 at 12:30 Acetaminophen/ Hydrocodone Bitart ([place] (5/325)) 1 tab Q8H PRN PO PAIN Last administered on 01/21/17 09:58; Admin Dose 1 TAB; Start 01/19/17 at 14:30 Benazepril HCl (Lotensin) 10 mg BID PO Last administered on 01/21/17 09:51; Admin Dose 10 MG; Start 01/20/17 at 21:00 JACQUES HUERTA NP Jan 21, 2017 14:23
--- NOTE | 2017-01-21 14:54 | CONS ---
Date/Time of Note Date/Time of Note DATE: 01/21/17 TIME: 14:52 Assessment/Plan Assessment/Plan Additional Assessment/Plan 1.Lsl-[id number] test 10/2016 with no ischemia/only scar/NL EF. Negative trop x 3. No CP/sob - no CP now. 2.HTN-labile and trending up today - will monitor cliniaclly. 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 Encephalopathy Consultation Date/Type/Reason Admit Date/Time Dec 26, 2016 at 13:22 Initial Consult Date 12/27/16 Type of Consultation: ID Referring Provider: ELS GILLILAND 24 HR Interval Summary Free Text/Dictation No acute events - BP stable - no CP now ROS: No fever, no chills, no nausea, no vomiting, no diarrhea/constipation No recent weight changes No chest pain, no PND, no orthopnea No dizziness, blurred vision No thirst, no heat or cold intolerance Exam/Review of Systems Vital Signs Vitals Vital Signs Date Time Temp Pulse Resp B/P Pulse Ox O2 Delivery O2 Flow Rate FiO2 01/21/17 14:12 98.3 72 18 102/54 98 Intake and Output 01/20/17 01/20/17 01/21/17 15:00 23:00 07:00 Intake Total 700 ml 250 ml Balance 700 ml 250 ml Exam General: WN/WD/NAD, AOx 3 HEENT: Unicetric/atraumatic/EOMI (follows commands) NECK: JVD elevated, no thyromegaly Lymph: no lymphadenopathy HEART: regular with no S3, II/ systolic murmur at apex LUNGS: Coarse sounds ABD: soft, NT, ND, +BS : Intact Neuro: non focal SKIN: chronic changes EXT: post amput, severe PAD Results Result Diagram: 01/21/17 0515 01/21/17 0454 Results 24 hrs Laboratory Tests Test 01/20/17 17:34 01/20/17 20:25 01/21/17 04:54 01/21/17 05:15 Bedside Glucose 147 111 Sodium Level 133 L Potassium Level 3.7 Chloride Level 101 Carbon Dioxide Level 27 Anion Gap 9 Blood Urea Nitrogen 7 Creatinine 0.55 Glucose Level 85 Calcium Level 8.8 White Blood Count 7.5 Red Blood Count 2.92 L Hemoglobin 8.4 L Hematocrit 25.2 L Mean Corpuscular Volume 86.3 Mean Corpuscular Hemoglobin 28.8 L Mean Corpuscular Hemoglobin Concent 33.3 Red Cell Distribution Width 14.3 Platelet Count 300 Mean Platelet Volume 10.4 Neutrophils % 71.3 Lymphocytes % 13.4 L Monocytes % 13.0 H Eosinophils % 1.6 Basophils % 0.3 Nucleated Red Blood Cells % 0.0 Neutrophils # 5.4 Lymphocytes # 1.0 Monocytes # 1.0 H Eosinophils # 0.1 Basophils # 0.0 Nucleated Red Blood Cells # 0.0 Test 01/21/17 08:05 01/21/17 12:11 Bedside Glucose 91 118 Medications Medications Current Medications Aspirin (Halfprin) 81 mg DAILY PO Last administered on 01/21/17 09:49; Admin Dose 81 MG; Start 12/27/16 at 09:00 Clopidogrel Bisulfate (plaVIX) 75 mg DAILY PO Last administered on 01/21/17 09 :51; Admin Dose 75 MG; Start 12/27/16 at 09:00 Famotidine (Pepcid) 40 mg HS PO Last administered on 01/20/17 20:38; Admin Dose 40 MG; Start 12/26/16 at 21:00 Folic Acid (Folic Acid) 1 mg DAILY PO Last administered on 01/21/17 09:49; Admin Dose 1 MG; Start 12/27/16 at 09:00 Gabapentin (Neurontin) 100 mg TID PO Last administered on 01/21/17 12:14; Admin Dose 100 MG; Start 12/26/16 at 21:00 Metoprolol Tartrate (Lopressor) 75 mg BID PO Last administered on 01/21/17 09: 50; Admin Dose 75 MG; Start 12/26/16 at 21:00 Mycophenolate Mofetil (Cellcept) 1,000 mg BID PO Last administered on 09:49; Admin Dose 1,000 MG; Start 12/26/16 at 21:00 Pantoprazole (Protonix Tab) 40 mg DAILY@06 PO Last administered on 01/21/17 05 :44; Admin Dose 40 MG; Start 12/27/16 at 06:00 Diagnostic Test (Pha) (Accu-Chek) 1 ea 02 XX ; Start 12/27/16 at 02:00 Miscellaneous Information 1 ea NOTE XX ; Start 12/26/16 at 14:30 Glucose (Glutose) 15 gm Q15M PRN PO DECREASED GLUCOSE; Start 12/26/16 at 14:30 Glucose (Glutose) 22.5 gm Q15M PRN PO DECREASED GLUCOSE; Start 12/26/16 at 14:30 Dextrose (D50w Syringe) 25 ml Q15M PRN IV DECREASED GLUCOSE; Start 12/26/16 at 14:30 Dextrose (D50w Syringe) 50 ml Q15M PRN IV DECREASED GLUCOSE; Start 12/26/16 at 14:30 Glucagon (Glucagen) 1 mg Q15M PRN IM DECREASED GLUCOSE; Start 12/26/16 at 14:30 Glucose (Glutose) 15 gm Q15M PRN BUCCAL DECREASED GLUCOSE; Start 12/26/16 at 14: 30 Cholecalciferol (Vitamin D) 1,000 unit DAILY PO Last administered on 01/21/17 09:51; Admin Dose 1,000 UNIT; Start 12/28/16 at 09:00 Ondansetron HCl 4 mg 4 mg Q6H PRN IV NAUSEA AND/OR VOMITING Last administered on 01/15/17 09:50; Admin Dose 4 MG; Start 01/01/17 at 10:00 Ertapenem/Sodium Chloride (Invanz/NS) 100 ml @ 200 mls/hr Q24H IVPB Last administered on 01/21/17 13:37; Admin Dose 200 MLS/HR; Start 01/06/17 at 14:30 Haloperidol (Haldol) 2 mg Q4H PRN IM AGITATION/ANXIETY Last administered on 22:46; Admin Dose 2 MG; Start 01/08/17 at 01:30 Acetaminophen (Tylenol Tab) 650 mg Q6H PRN PO PAIN AND OR ELEVATED TEMP Last administered on 01/16/17 10:25; Admin Dose 650 MG; Start 01/08/17 at 22:30 Quetiapine Fumarate (Seroquel) 25 mg QHS PRN PO agitation/hallucinations Last administered on 01/09/17 22:15; Admin Dose 25 MG; Start 01/09/17 at 21:00 Morphine Sulfate (morphine) 2 mg Q8H PRN IV PAIN LEVEL 6-10 Last administered on 01/19/17 16:02; Admin Dose 2 MG; Start 01/11/17 at 14:00 Clonidine (Catapres) 0.1 mg Q6H PRN PO hypertension Last administered on 02:41; Admin Dose 0.1 MG; Start 01/14/17 at 02:30 Hydralazine HCl (Apresoline) 25 mg Q6H PRN IV ELEVATED SYSTOLIC BP Last administered on 01/14/17 07:04; Admin Dose 25 MG; Start 01/14/17 at 07:00 Insulin Glargine (Lantus) 5 unit DAILY@20 SC Last administered on 01/20/17 20: 37; Admin Dose 5 UNIT; Start 01/17/17 at 20:00 Vancomycin HCl (Vancomycin Oral Syringe) 125 mg Q6 PO Last administered on 01/21 12:13; Admin Dose 125 MG; Start 01/17/17 at 18:00 Tacrolimus (Prograf) 2 mg Q12 PO Last administered on 01/21/17 09:51; Admin Dose 2 MG; Start 01/18/17 at 09:00 IV Flush (NS 10 ml) 10 ml PRN PRN IV IV PROTOCOL; Start 01/19/17 at 12:30 Acetaminophen/ Hydrocodone Bitart ([place] (5/325)) 1 tab Q8H PRN PO PAIN Last administered on 01/21/17 09:58; Admin Dose 1 TAB; Start 01/19/17 at 14:30 Benazepril HCl (Lotensin) 10 mg BID PO Last administered on 01/21/17 09:51; Admin Dose 10 MG; Start 01/20/17 at 21:00 MIRELLA MOSER MD Jan 21, 2017 14:54
--- NOTE | 2017-01-21 15:24 | CONS ---
Date/Time of Note Date/Time of Note DATE: 01/21/17 TIME: 15:23 Assessment/Plan Assessment/Plan Additional Assessment/Plan 1. 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 h/o donor kidney transplant in 2009 at [facility], currently on immunosuppression with Prograf, CellCept 4. 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 History of hypertension. 6. History of diabetes mellitus. 7. History of previous left upper extremity arteriovenous fistula. 8. Hyponatremia due to hypovolemic hyponatremia post op 9. -CT chest+ abd+pelvis with and without contrast negative for mass/LAD/ Malignancy Plan: continue Current immunosuppression Prograf and cellcept, Cr normal, s/p Left AKA- Post op care as per surgery Na 133 Cr and other electrolytes stable IV abx as per ID will follow up Consultation Date/Type/Reason Admit Date/Time Dec 26, 2016 at 13:22 Initial Consult Date 12/27/16 Type of Consultation: NEPHROLOGY Referring Provider: LES GILLILAND 24 HR Interval Summary Free Text/Dictation Cr stable, BP stable, afebrile Exam/Review of Systems Vital Signs Vitals Vital Signs Date Time Temp Pulse Resp B/P Pulse Ox O2 Delivery O2 Flow Rate FiO2 01/21/17 14:12 98.3 72 18 102/54 98 Intake and Output 01/20/17 01/20/17 01/21/17 15:00 23:00 07:00 Intake Total 700 ml 250 ml Balance 700 ml 250 ml Exam GEN: fragile elderly woman who is awake in no distress. HEENT: Head atraumatic, normocephalic. Sclerae anicteric. NECK: Supple. CHEST: Rise symmetrical. Breath sounds clear. HEART: S1, S2. ABDOMEN: Soft, bowel sounds present. left BKA dressing clean Results Result Diagram: 01/21/17 0515 01/21/17 0454 Results 24 hrs Laboratory Tests Test 01/20/17 17:34 01/20/17 20:25 01/21/17 04:54 01/21/17 05:15 Bedside Glucose 147 111 Sodium Level 133 L Potassium Level 3.7 Chloride Level 101 Carbon Dioxide Level 27 Anion Gap 9 Blood Urea Nitrogen 7 Creatinine 0.55 Glucose Level 85 Calcium Level 8.8 White Blood Count 7.5 Red Blood Count 2.92 L Hemoglobin 8.4 L Hematocrit 25.2 L Mean Corpuscular Volume 86.3 Mean Corpuscular Hemoglobin 28.8 L Mean Corpuscular Hemoglobin Concent 33.3 Red Cell Distribution Width 14.3 Platelet Count 300 Mean Platelet Volume 10.4 Neutrophils % 71.3 Lymphocytes % 13.4 L Monocytes % 13.0 H Eosinophils % 1.6 Basophils % 0.3 Nucleated Red Blood Cells % 0.0 Neutrophils # 5.4 Lymphocytes # 1.0 Monocytes # 1.0 H Eosinophils # 0.1 Basophils # 0.0 Nucleated Red Blood Cells # 0.0 Test 01/21/17 08:05 01/21/17 12:11 Bedside Glucose 91 118 Medications Medications Current Medications Aspirin (Halfprin) 81 mg DAILY PO Last administered on 01/21/17 09:49; Admin Dose 81 MG; Start 12/27/16 at 09:00 Clopidogrel Bisulfate (plaVIX) 75 mg DAILY PO Last administered on 01/21/17 09 :51; Admin Dose 75 MG; Start 12/27/16 at 09:00 Famotidine (Pepcid) 40 mg HS PO Last administered on 01/20/17 20:38; Admin Dose 40 MG; Start 12/26/16 at 21:00 Folic Acid (Folic Acid) 1 mg DAILY PO Last administered on 01/21/17 09:49; Admin Dose 1 MG; Start 12/27/16 at 09:00 Gabapentin (Neurontin) 100 mg TID PO Last administered on 01/21/17 12:14; Admin Dose 100 MG; Start 12/26/16 at 21:00 Metoprolol Tartrate (Lopressor) 75 mg BID PO Last administered on 01/21/17 09: 50; Admin Dose 75 MG; Start 12/26/16 at 21:00 Mycophenolate Mofetil (Cellcept) 1,000 mg BID PO Last administered on 09:49; Admin Dose 1,000 MG; Start 12/26/16 at 21:00 Pantoprazole (Protonix Tab) 40 mg DAILY@06 PO Last administered on 01/21/17 05 :44; Admin Dose 40 MG; Start 12/27/16 at 06:00 Diagnostic Test (Pha) (Accu-Chek) 1 ea 02 XX ; Start 12/27/16 at 02:00 Miscellaneous Information 1 ea NOTE XX ; Start 12/26/16 at 14:30 Glucose (Glutose) 15 gm Q15M PRN PO DECREASED GLUCOSE; Start 12/26/16 at 14:30 Glucose (Glutose) 22.5 gm Q15M PRN PO DECREASED GLUCOSE; Start 12/26/16 at 14:30 Dextrose (D50w Syringe) 25 ml Q15M PRN IV DECREASED GLUCOSE; Start 12/26/16 at 14:30 Dextrose (D50w Syringe) 50 ml Q15M PRN IV DECREASED GLUCOSE; Start 12/26/16 at 14:30 Glucagon (Glucagen) 1 mg Q15M PRN IM DECREASED GLUCOSE; Start 12/26/16 at 14:30 Glucose (Glutose) 15 gm Q15M PRN BUCCAL DECREASED GLUCOSE; Start 12/26/16 at 14: 30 Cholecalciferol (Vitamin D) 1,000 unit DAILY PO Last administered on 01/21/17 09:51; Admin Dose 1,000 UNIT; Start 12/28/16 at 09:00 Ondansetron HCl 4 mg 4 mg Q6H PRN IV NAUSEA AND/OR VOMITING Last administered on 01/15/17 09:50; Admin Dose 4 MG; Start 01/01/17 at 10:00 Ertapenem/Sodium Chloride (Invanz/NS) 100 ml @ 200 mls/hr Q24H IVPB Last administered on 01/21/17 13:37; Admin Dose 200 MLS/HR; Start 01/06/17 at 14:30 Haloperidol (Haldol) 2 mg Q4H PRN IM AGITATION/ANXIETY Last administered on 22:46; Admin Dose 2 MG; Start 01/08/17 at 01:30 Acetaminophen (Tylenol Tab) 650 mg Q6H PRN PO PAIN AND OR ELEVATED TEMP Last administered on 01/16/17 10:25; Admin Dose 650 MG; Start 01/08/17 at 22:30 Quetiapine Fumarate (Seroquel) 25 mg QHS PRN PO agitation/hallucinations Last administered on 01/09/17 22:15; Admin Dose 25 MG; Start 01/09/17 at 21:00 Morphine Sulfate (morphine) 2 mg Q8H PRN IV PAIN LEVEL 6-10 Last administered on 01/19/17 16:02; Admin Dose 2 MG; Start 01/11/17 at 14:00 Clonidine (Catapres) 0.1 mg Q6H PRN PO hypertension Last administered on 02:41; Admin Dose 0.1 MG; Start 01/14/17 at 02:30 Hydralazine HCl (Apresoline) 25 mg Q6H PRN IV ELEVATED SYSTOLIC BP Last administered on 01/14/17 07:04; Admin Dose 25 MG; Start 01/14/17 at 07:00 Insulin Glargine (Lantus) 5 unit DAILY@20 SC Last administered on 01/20/17 20: 37; Admin Dose 5 UNIT; Start 01/17/17 at 20:00 Vancomycin HCl (Vancomycin Oral Syringe) 125 mg Q6 PO Last administered on 01/21 12:13; Admin Dose 125 MG; Start 01/17/17 at 18:00 Tacrolimus (Prograf) 2 mg Q12 PO Last administered on 01/21/17 09:51; Admin Dose 2 MG; Start 01/18/17 at 09:00 IV Flush (NS 10 ml) 10 ml PRN PRN IV IV PROTOCOL; Start 01/19/17 at 12:30 Acetaminophen/ Hydrocodone Bitart ([place] (5/325)) 1 tab Q8H PRN PO PAIN Last administered on 01/21/17 09:58; Admin Dose 1 TAB; Start 01/19/17 at 14:30 Benazepril HCl (Lotensin) 10 mg BID PO Last administered on 01/21/17 09:51; Admin Dose 10 MG; Start 01/20/17 at 21:00 RAMON KEMP MD Jan 21, 2017 15:24
--- NOTE | 2017-01-21 18:11 | PN ---
Date/Time of Note Date/Time of Note DATE: 01/21/17 TIME: 18:09 Assessment/Plan VTE Prophylaxis VTE Prophylaxis Intervention: SCD's Lines/Catheters IV [facility] PICC Line Central line still needed: Yes Urinary Cath still in place: No Assessment/Plan Chief Complaint/Hosp Course Patient complains of left lower extremities pain, remains hemodynamically stable, afebrile. Assessment/Plan - Acute encephalopathy, resolved. CT brain is negative for any acute pathology. 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 S/p left AKA 01/[address] Valencia, vascular surgery. - Diabetes mellitus type II. Continue Lantus and NovoLog. - History of kidney transplant in 2009, on immunosuppressive therapy. - Hypertension. Continue metoprolol, benazepril. 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 - Anemia of chronic kidney disease. Further recommendations based on clinical course. Plan of care discussed with Dr. Cohen Problems: Exam/Review of Systems Vital Signs Vitals Vital Signs Date Time Temp Pulse Resp B/P Pulse Ox O2 Delivery O2 Flow Rate FiO2 01/21/17 14:12 98.3 72 18 102/54 98 Intake and Output 01/20/17 01/20/17 01/21/17 15:00 23:00 07:00 Intake Total 700 ml 250 ml Balance 700 ml 250 ml Exam Constitutional: awake, alert Neck: supple Respiratory: clear to auscultation Cardiovascular: nl pulses Gastrointestinal: non-tender, soft Extremities: other (S/p LAKA) Results Result Diagram: 01/21/17 0515 01/21/17 0454 Results 24 hrs Laboratory Tests Test 01/20/17 20:25 01/21/17 04:54 01/21/17 05:15 01/21/17 08:05 Bedside Glucose 111 91 Sodium Level 133 L Potassium Level 3.7 Chloride Level 101 Carbon Dioxide Level 27 Anion Gap 9 Blood Urea Nitrogen 7 Creatinine 0.55 Glucose Level 85 Calcium Level 8.8 White Blood Count 7.5 Red Blood Count 2.92 L Hemoglobin 8.4 L Hematocrit 25.2 L Mean Corpuscular Volume 86.3 Mean Corpuscular Hemoglobin 28.8 L Mean Corpuscular Hemoglobin Concent 33.3 Red Cell Distribution Width 14.3 Platelet Count 300 Mean Platelet Volume 10.4 Neutrophils % 71.3 Lymphocytes % 13.4 L Monocytes % 13.0 H Eosinophils % 1.6 Basophils % 0.3 Nucleated Red Blood Cells % 0.0 Neutrophils # 5.4 Lymphocytes # 1.0 Monocytes # 1.0 H Eosinophils # 0.1 Basophils # 0.0 Nucleated Red Blood Cells # 0.0 Test 01/21/17 12:11 01/21/17 16:54 Bedside Glucose 118 143 Medications Medications Current Medications Aspirin (Halfprin) 81 mg DAILY PO Last administered on 01/21/17 09:49; Admin Dose 81 MG; Start 12/27/16 at 09:00 Clopidogrel Bisulfate (plaVIX) 75 mg DAILY PO Last administered on 01/21/17 09 :51; Admin Dose 75 MG; Start 12/27/16 at 09:00 Famotidine (Pepcid) 40 mg HS PO Last administered on 01/20/17 20:38; Admin Dose 40 MG; Start 12/26/16 at 21:00 Folic Acid (Folic Acid) 1 mg DAILY PO Last administered on 01/21/17 09:49; Admin Dose 1 MG; Start 12/27/16 at 09:00 Gabapentin (Neurontin) 100 mg TID PO Last administered on 01/21/17 12:14; Admin Dose 100 MG; Start 12/26/16 at 21:00 Metoprolol Tartrate (Lopressor) 75 mg BID PO Last administered on 01/21/17 09: 50; Admin Dose 75 MG; Start 12/26/16 at 21:00 Mycophenolate Mofetil (Cellcept) 1,000 mg BID PO Last administered on 09:49; Admin Dose 1,000 MG; Start 12/26/16 at 21:00 Pantoprazole (Protonix Tab) 40 mg DAILY@06 PO Last administered on 01/21/17 05 :44; Admin Dose 40 MG; Start 12/27/16 at 06:00 Diagnostic Test (Pha) (Accu-Chek) 1 ea 02 XX ; Start 12/27/16 at 02:00 Miscellaneous Information 1 ea NOTE XX ; Start 12/26/16 at 14:30 Glucose (Glutose) 15 gm Q15M PRN PO DECREASED GLUCOSE; Start 12/26/16 at 14:30 Glucose (Glutose) 22.5 gm Q15M PRN PO DECREASED GLUCOSE; Start 12/26/16 at 14:30 Dextrose (D50w Syringe) 25 ml Q15M PRN IV DECREASED GLUCOSE; Start 12/26/16 at 14:30 Dextrose (D50w Syringe) 50 ml Q15M PRN IV DECREASED GLUCOSE; Start 12/26/16 at 14:30 Glucagon (Glucagen) 1 mg Q15M PRN IM DECREASED GLUCOSE; Start 12/26/16 at 14:30 Glucose (Glutose) 15 gm Q15M PRN BUCCAL DECREASED GLUCOSE; Start 12/26/16 at 14: 30 Cholecalciferol (Vitamin D) 1,000 unit DAILY PO Last administered on 01/21/17 09:51; Admin Dose 1,000 UNIT; Start 12/28/16 at 09:00 Ondansetron HCl 4 mg 4 mg Q6H PRN IV NAUSEA AND/OR VOMITING Last administered on 01/15/17 09:50; Admin Dose 4 MG; Start 01/01/17 at 10:00 Ertapenem/Sodium Chloride (Invanz/NS) 100 ml @ 200 mls/hr Q24H IVPB Last administered on 01/21/17 13:37; Admin Dose 200 MLS/HR; Start 01/06/17 at 14:30 Haloperidol (Haldol) 2 mg Q4H PRN IM AGITATION/ANXIETY Last administered on 22:46; Admin Dose 2 MG; Start 01/08/17 at 01:30 Acetaminophen (Tylenol Tab) 650 mg Q6H PRN PO PAIN AND OR ELEVATED TEMP Last administered on 01/16/17 10:25; Admin Dose 650 MG; Start 01/08/17 at 22:30 Quetiapine Fumarate (Seroquel) 25 mg QHS PRN PO agitation/hallucinations Last administered on 01/09/17 22:15; Admin Dose 25 MG; Start 01/09/17 at 21:00 Morphine Sulfate (morphine) 2 mg Q8H PRN IV PAIN LEVEL 6-10 Last administered on 01/19/17 16:02; Admin Dose 2 MG; Start 01/11/17 at 14:00 Clonidine (Catapres) 0.1 mg Q6H PRN PO hypertension Last administered on 02:41; Admin Dose 0.1 MG; Start 01/14/17 at 02:30 Hydralazine HCl (Apresoline) 25 mg Q6H PRN IV ELEVATED SYSTOLIC BP Last administered on 01/14/17 07:04; Admin Dose 25 MG; Start 01/14/17 at 07:00 Insulin Glargine (Lantus) 5 unit DAILY@20 SC Last administered on 01/20/17 20: 37; Admin Dose 5 UNIT; Start 01/17/17 at 20:00 Vancomycin HCl (Vancomycin Oral Syringe) 125 mg Q6 PO Last administered on 01/21 17:16; Admin Dose 125 MG; Start 01/17/17 at 18:00 Tacrolimus (Prograf) 2 mg Q12 PO Last administered on 01/21/17 09:51; Admin Dose 2 MG; Start 01/18/17 at 09:00 IV Flush (NS 10 ml) 10 ml PRN PRN IV IV PROTOCOL; Start 01/19/17 at 12:30 Acetaminophen/ Hydrocodone Bitart ([place] (5/325)) 1 tab Q8H PRN PO PAIN Last administered on 01/21/17 09:58; Admin Dose 1 TAB; Start 01/19/17 at 14:30 Benazepril HCl (Lotensin) 10 mg BID PO Last administered on 01/21/17 09:51; Admin Dose 10 MG; Start 01/20/17 at 21:00 LES GILLILAND Jan 21, 2017 18:11
[2017-01-21 20:21] VITALS: BP 77/52; RESP 18
[2017-01-21] MEDS: FAMOTIDINE 20 MG TAB PO SCH (20:53)
[2017-01-21] MEDS: INSULIN GLARGINE [LANtus] 3 ML PEN SC SCH (20:54)
[2017-01-21 21:10] VITALS: BP 92/60
[2017-01-22] MEDS: ACCU-CHEK XX SCH (02:00)
[2017-01-22 02:24] VITALS: BP 131/60; RESP 18
[2017-01-22] MEDS: HYDROCODONE/APAP (5/325) TAB PO PRN ×3 (03:17→22:00)
[2017-01-22] MEDS: VANCOMYCIN HCL 250 MG/5ML POSYG PO SCH ×4 (05:37→23:57)
[2017-01-22] MEDS: PANTOPRAZOLE (EC) 40 MG TAB PO SCH (05:38)
[2017-01-22] MEDS: INSULIN ASPART [NOVOLOG] 3 ML PEN SC SCH ×4 (07:56→21:00)
[2017-01-22 08:00] VITALS: BP 108/50; RESP 16
[2017-01-22] MEDS: CHOLECALCIFEROL 1,000 UNIT TAB PO SCH (08:30)
[2017-01-22] MEDS: CLOPIDOGREL 75 MG TAB PO SCH (08:30)
[2017-01-22] MEDS: FOLIC ACID 1 MG TAB PO SCH (08:31)
[2017-01-22] MEDS: TACROLIMUS 1 MG CAP PO SCH ×2 (08:31→21:55)
[2017-01-22] MEDS: METOPROLOL 25 MG TAB PO SCH ×2 (08:31→21:00)
[2017-01-22] MEDS: ASPIRIN (EC) 81 MG TAB PO SCH (08:32)
[2017-01-22] MEDS: BENAZEPRIL 10 MG TAB PO SCH ×2 (08:32→21:00)
[2017-01-22] MEDS: MYCOPHENOLATE 250 MG CAP PO SCH ×2 (08:32→21:55)
[2017-01-22] MEDS: GABAPENTIN 100 MG CAP PO SCH ×3 (08:37→21:55)
--- NOTE | 2017-01-22 09:25 | CONS ---
Date/Time of Note Date/Time of Note DATE: 01/22/17 TIME: 09:25 Assessment/Plan Assessment/Plan Additional Assessment/Plan 1. 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 h/o donor kidney transplant in 2009 at [facility], currently on immunosuppression with Prograf, CellCept 4. 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 History of hypertension. 6. History of diabetes mellitus. 7. History of previous left upper extremity arteriovenous fistula. 8. Hyponatremia due to hypovolemic hyponatremia post op 9. -CT chest+ abd+pelvis with and without contrast negative for mass/LAD/ Malignancy Plan: continue Current immunosuppression Prograf and cellcept, Cr normal, s/p Left AKA- Post op care as per surgery NO labs today to review yet IV abx as per ID will follow up Consultation Date/Type/Reason Admit Date/Time Dec 26, 2016 at 13:22 Initial Consult Date 12/27/16 Type of Consultation: NEPHROLOGY Referring Provider: LES GILLILAND 24 HR Interval Summary Free Text/Dictation pt stable today, no labs today to review yet Exam/Review of Systems Vital Signs Vitals Vital Signs Date Time Temp Pulse Resp B/P Pulse Ox O2 Delivery O2 Flow Rate FiO2 01/22/17 08:00 98.0 79 16 108/50 100 Intake and Output 01/21/17 01/21/17 01/22/17 15:00 23:00 07:00 Intake Total 100 ml 680 ml 400 ml Balance 100 ml 680 ml 400 ml Exam GEN: fragile elderly woman who is awake in no distress. HEENT: Head atraumatic, normocephalic. Sclerae anicteric. NECK: Supple. CHEST: Rise symmetrical. Breath sounds clear. HEART: S1, S2. ABDOMEN: Soft, bowel sounds present. left BKA dressing clean Results Result Diagram: 01/21/17 0515 01/21/17 0454 Results 24 hrs Laboratory Tests Test 01/21/17 12:11 01/21/17 16:54 01/21/17 20:49 01/22/17 07:54 Bedside Glucose 118 143 117 99 Medications Medications Current Medications Aspirin (Halfprin) 81 mg DAILY PO Last administered on 01/22/17 08:32; Admin Dose 81 MG; Start 12/27/16 at 09:00 Clopidogrel Bisulfate (plaVIX) 75 mg DAILY PO Last administered on 01/22/17 08 :30; Admin Dose 75 MG; Start 12/27/16 at 09:00 Famotidine (Pepcid) 40 mg HS PO Last administered on 01/21/17 20:53; Admin Dose 40 MG; Start 12/26/16 at 21:00 Folic Acid (Folic Acid) 1 mg DAILY PO Last administered on 01/22/17 08:31; Admin Dose 1 MG; Start 12/27/16 at 09:00 Gabapentin (Neurontin) 100 mg TID PO Last administered on 01/22/17 08:37; Admin Dose 100 MG; Start 12/26/16 at 21:00 Metoprolol Tartrate (Lopressor) 75 mg BID PO Last administered on 01/21/17 20: 52; Admin Dose 75 MG; Start 12/26/16 at 21:00 Mycophenolate Mofetil (Cellcept) 1,000 mg BID PO Last administered on 08:32; Admin Dose 1,000 MG; Start 12/26/16 at 21:00 Pantoprazole (Protonix Tab) 40 mg DAILY@06 PO Last administered on 01/22/17 05 :38; Admin Dose 40 MG; Start 12/27/16 at 06:00 Diagnostic Test (Pha) (Accu-Chek) 1 ea 02 XX ; Start 12/27/16 at 02:00 Miscellaneous Information 1 ea NOTE XX ; Start 12/26/16 at 14:30 Glucose (Glutose) 15 gm Q15M PRN PO DECREASED GLUCOSE; Start 12/26/16 at 14:30 Glucose (Glutose) 22.5 gm Q15M PRN PO DECREASED GLUCOSE; Start 12/26/16 at 14:30 Dextrose (D50w Syringe) 25 ml Q15M PRN IV DECREASED GLUCOSE; Start 12/26/16 at 14:30 Dextrose (D50w Syringe) 50 ml Q15M PRN IV DECREASED GLUCOSE; Start 12/26/16 at 14:30 Glucagon (Glucagen) 1 mg Q15M PRN IM DECREASED GLUCOSE; Start 12/26/16 at 14:30 Glucose (Glutose) 15 gm Q15M PRN BUCCAL DECREASED GLUCOSE; Start 12/26/16 at 14: 30 Cholecalciferol (Vitamin D) 1,000 unit DAILY PO Last administered on 01/22/17 08:30; Admin Dose 1,000 UNIT; Start 12/28/16 at 09:00 Ondansetron HCl 4 mg 4 mg Q6H PRN IV NAUSEA AND/OR VOMITING Last administered on 01/15/17 09:50; Admin Dose 4 MG; Start 01/01/17 at 10:00 Ertapenem/Sodium Chloride (Invanz/NS) 100 ml @ 200 mls/hr Q24H IVPB Last administered on 01/21/17 13:37; Admin Dose 200 MLS/HR; Start 01/06/17 at 14:30 Haloperidol (Haldol) 2 mg Q4H PRN IM AGITATION/ANXIETY Last administered on 22:46; Admin Dose 2 MG; Start 01/08/17 at 01:30 Acetaminophen (Tylenol Tab) 650 mg Q6H PRN PO PAIN AND OR ELEVATED TEMP Last administered on 01/16/17 10:25; Admin Dose 650 MG; Start 01/08/17 at 22:30 Quetiapine Fumarate (Seroquel) 25 mg QHS PRN PO agitation/hallucinations Last administered on 01/09/17 22:15; Admin Dose 25 MG; Start 01/09/17 at 21:00 Morphine Sulfate (morphine) 2 mg Q8H PRN IV PAIN LEVEL 6-10 Last administered on 01/19/17 16:02; Admin Dose 2 MG; Start 01/11/17 at 14:00 Clonidine (Catapres) 0.1 mg Q6H PRN PO hypertension Last administered on 02:41; Admin Dose 0.1 MG; Start 01/14/17 at 02:30 Hydralazine HCl (Apresoline) 25 mg Q6H PRN IV ELEVATED SYSTOLIC BP Last administered on 01/14/17 07:04; Admin Dose 25 MG; Start 01/14/17 at 07:00 Insulin Glargine (Lantus) 5 unit DAILY@20 SC Last administered on 01/21/17 20: 54; Admin Dose 5 UNIT; Start 01/17/17 at 20:00 Vancomycin HCl (Vancomycin Oral Syringe) 125 mg Q6 PO Last administered on 01/22 05:37; Admin Dose 125 MG; Start 01/17/17 at 18:00 Tacrolimus (Prograf) 2 mg Q12 PO Last administered on 01/22/17 08:31; Admin Dose 2 MG; Start 01/18/17 at 09:00 IV Flush (NS 10 ml) 10 ml PRN PRN IV IV PROTOCOL; Start 01/19/17 at 12:30 Acetaminophen/ Hydrocodone Bitart ([place] (5/325)) 1 tab Q8H PRN PO PAIN Last administered on 01/22/17 03:17; Admin Dose 1 TAB; Start 01/19/17 at 14:30 Benazepril HCl (Lotensin) 10 mg BID PO Last administered on 01/21/17 20:53; Admin Dose 10 MG; Start 01/20/17 at 21:00 RAMON KEMP MD Jan 22, 2017 09:25
--- NOTE | 2017-01-22 13:29 | CONS ---
Date/Time of Note Date/Time of Note DATE: 01/22/17 TIME: 13:27 Assessment/Plan Assessment/Plan Chief Complaint/Hosp Course IMP: 1.Odg-yb-gxoius test 10/2016 with no ischemia/only scar/NL EF. Negative trop x 3. No CP/sob 2.HTN-very labile 3.PAD with bilateral gangrene s/p L LE amputation 4.DM 5.Anemia 6. Encephalopathy Recc: -Continuer asa/plavix -Cointinue benazepril/BB as tolerated only and follow very labile BP -Local wound care -Continue abx's and f/u cx data -Continue immuonosuppresives Problems: Consultation Date/Type/Reason Admit Date/Time Dec 26, 2016 at 13:22 Initial Consult Date 12/27/16 Type of Consultation: cardiology Reason for Consultation HTN Referring Provider: LES GILLILAND Exam/Review of Systems Vital Signs Vitals Vital Signs Date Time Temp Pulse Resp B/P Pulse Ox O2 Delivery O2 Flow Rate FiO2 01/22/17 08:00 98.0 79 16 108/50 100 Intake and Output 01/21/17 01/21/17 01/22/17 15:00 23:00 07:00 Intake Total 100 ml 680 ml 400 ml Balance 100 ml 680 ml 400 ml Exam Review of Systems: CONSTITUTIONAL: No fevers, chills. PULMONARY: No sob CARDIOVASCULAR: No chest pain/palpitations GASTROINTESTINAL: No nausea/vomiting. GENITOURINARY: No hematuria/dysuria. MUSCULOSKELETAL: No myagias/arthalgias. PSYCHIATRIC: The patient denies depression. NEUROLOGIC: No weakness Constitutional: alert Psych: no complaints Head: normocephalic ENMT: mucosa pink and moist Neck: jvd (9 cm water), supple Respiratory: diminished breath sounds Cardiovascular: regular rate and rhythm Gastrointestinal: non-tender, soft Musculoskeletal: muscle tone (normal) Extremities: other (LLE s/p amputation, RLE s/p toe amputtaion with ulceration) Results Result Diagram: 01/21/17 0515 01/21/17 0454 Results 24 hrs Laboratory Tests Test 01/21/17 16:54 01/21/17 20:49 01/22/17 07:54 01/22/17 11:49 Bedside Glucose 143 117 99 145 Medications Medications Current Medications Aspirin (Halfprin) 81 mg DAILY PO Last administered on 01/22/17 08:32; Admin Dose 81 MG; Start 12/27/16 at 09:00 Clopidogrel Bisulfate (plaVIX) 75 mg DAILY PO Last administered on 01/22/17 08 :30; Admin Dose 75 MG; Start 12/27/16 at 09:00 Famotidine (Pepcid) 40 mg HS PO Last administered on 01/21/17 20:53; Admin Dose 40 MG; Start 12/26/16 at 21:00 Folic Acid (Folic Acid) 1 mg DAILY PO Last administered on 01/22/17 08:31; Admin Dose 1 MG; Start 12/27/16 at 09:00 Gabapentin (Neurontin) 100 mg TID PO Last administered on 01/22/17 12:12; Admin Dose 100 MG; Start 12/26/16 at 21:00 Metoprolol Tartrate (Lopressor) 75 mg BID PO Last administered on 01/21/17 20: 52; Admin Dose 75 MG; Start 12/26/16 at 21:00 Mycophenolate Mofetil (Cellcept) 1,000 mg BID PO Last administered on 08:32; Admin Dose 1,000 MG; Start 12/26/16 at 21:00 Pantoprazole (Protonix Tab) 40 mg DAILY@06 PO Last administered on 01/22/17 05 :38; Admin Dose 40 MG; Start 12/27/16 at 06:00 Diagnostic Test (Pha) (Accu-Chek) 1 ea 02 XX ; Start 12/27/16 at 02:00 Miscellaneous Information 1 ea NOTE XX ; Start 12/26/16 at 14:30 Glucose (Glutose) 15 gm Q15M PRN PO DECREASED GLUCOSE; Start 12/26/16 at 14:30 Glucose (Glutose) 22.5 gm Q15M PRN PO DECREASED GLUCOSE; Start 12/26/16 at 14:30 Dextrose (D50w Syringe) 25 ml Q15M PRN IV DECREASED GLUCOSE; Start 12/26/16 at 14:30 Dextrose (D50w Syringe) 50 ml Q15M PRN IV DECREASED GLUCOSE; Start 12/26/16 at 14:30 Glucagon (Glucagen) 1 mg Q15M PRN IM DECREASED GLUCOSE; Start 12/26/16 at 14:30 Glucose (Glutose) 15 gm Q15M PRN BUCCAL DECREASED GLUCOSE; Start 12/26/16 at 14: 30 Cholecalciferol (Vitamin D) 1,000 unit DAILY PO Last administered on 01/22/17 08:30; Admin Dose 1,000 UNIT; Start 12/28/16 at 09:00 Ondansetron HCl 4 mg 4 mg Q6H PRN IV NAUSEA AND/OR VOMITING Last administered on 01/15/17 09:50; Admin Dose 4 MG; Start 01/01/17 at 10:00 Ertapenem/Sodium Chloride (Invanz/NS) 100 ml @ 200 mls/hr Q24H IVPB Last administered on 01/21/17 13:37; Admin Dose 200 MLS/HR; Start 01/06/17 at 14:30 Haloperidol (Haldol) 2 mg Q4H PRN IM AGITATION/ANXIETY Last administered on 22:46; Admin Dose 2 MG; Start 01/08/17 at 01:30 Acetaminophen (Tylenol Tab) 650 mg Q6H PRN PO PAIN AND OR ELEVATED TEMP Last administered on 01/16/17 10:25; Admin Dose 650 MG; Start 01/08/17 at 22:30 Quetiapine Fumarate (Seroquel) 25 mg QHS PRN PO agitation/hallucinations Last administered on 01/09/17 22:15; Admin Dose 25 MG; Start 01/09/17 at 21:00 Morphine Sulfate (morphine) 2 mg Q8H PRN IV PAIN LEVEL 6-10 Last administered on 01/19/17 16:02; Admin Dose 2 MG; Start 01/11/17 at 14:00 Clonidine (Catapres) 0.1 mg Q6H PRN PO hypertension Last administered on 02:41; Admin Dose 0.1 MG; Start 01/14/17 at 02:30 Hydralazine HCl (Apresoline) 25 mg Q6H PRN IV ELEVATED SYSTOLIC BP Last administered on 01/14/17 07:04; Admin Dose 25 MG; Start 01/14/17 at 07:00 Insulin Glargine (Lantus) 5 unit DAILY@20 SC Last administered on 01/21/17 20: 54; Admin Dose 5 UNIT; Start 9/29/17 at 20:00 Vancomycin HCl (Vancomycin Oral Syringe) 125 mg Q6 PO Last administered on 01/22 12:14; Admin Dose 125 MG; Start 01/17/17 at 18:00 Tacrolimus (Prograf) 2 mg Q12 PO Last administered on 01/22/17 08:31; Admin Dose 2 MG; Start 01/18/17 at 09:00 IV Flush (NS 10 ml) 10 ml PRN PRN IV IV PROTOCOL; Start 01/19/17 at 12:30 Acetaminophen/ Hydrocodone Bitart ([place] (5/325)) 1 tab Q8H PRN PO PAIN Last administered on 01/22/17 11:47; Admin Dose 1 TAB; Start 01/19/17 at 14:30 Benazepril HCl (Lotensin) 10 mg BID PO Last administered on 01/21/17 20:53; Admin Dose 10 MG; Start 01/20/17 at 21:00 TIMOTHY CORTES Jan 22, 2017 13:29
[2017-01-22 14:29] VITALS: BP 110/52; RESP 18
[2017-01-22] MEDS: ERTAPENEM SODIUM 1 GM in SOD CHLORIDE 0.9% 100 ML IVPB SCH (14:40)
--- NOTE | 2017-01-22 15:57 | PN ---
Date/Time of Note Date/Time of Note DATE: 01/22/17 TIME: 15:56 Assessment/Plan VTE Prophylaxis VTE Prophylaxis Intervention: SCD's Lines/Catheters IV [facility]from [facility]): PICC Line Central line still needed: Yes Urinary Cath still in place: No Assessment/Plan Chief Complaint/Hosp Course Patient started physical therapy however was minimal progress, continue PT. Assessment/Plan - Acute encephalopathy, resolved. CT brain is negative for any acute pathology. 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 S/p left AKA 01/[address] Valencia, vascular surgery. - Diabetes mellitus type II. Continue Lantus and NovoLog. - History of kidney transplant in 2009, on immunosuppressive therapy. - Hypertension. Continue metoprolol, benazepril. 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 - Anemia of chronic kidney disease. Further recommendations based on clinical course. Plan of care discussed with Dr. Cohen Problems: Exam/Review of Systems Vital Signs Vitals Vital Signs Date Time Temp Pulse Resp B/P Pulse Ox O2 Delivery O2 Flow Rate FiO2 01/22/17 14:29 98.4 100 18 110/52 98 Intake and Output 01/21/17 01/21/17 01/22/17 15:00 23:00 07:00 Intake Total 100 ml 680 ml 400 ml Balance 100 ml 680 ml 400 ml Exam Constitutional: awake, alert Neck: supple Respiratory: clear to auscultation Cardiovascular: nl pulses Gastrointestinal: non-tender, soft Extremities: other (S/p LAKA) Results Result Diagram: 01/21/17 0515 01/21/17 0454 Results 24 hrs Laboratory Tests Test 01/21/17 16:54 01/21/17 20:49 01/22/17 07:54 01/22/17 11:49 Bedside Glucose 143 117 99 145 Medications Medications Current Medications Aspirin (Halfprin) 81 mg DAILY PO Last administered on 01/22/17 08:32; Admin Dose 81 MG; Start 12/27/16 at 09:00 Clopidogrel Bisulfate (plaVIX) 75 mg DAILY PO Last administered on 01/22/17 08 :30; Admin Dose 75 MG; Start 12/27/16 at 09:00 Famotidine (Pepcid) 40 mg HS PO Last administered on 01/21/17 20:53; Admin Dose 40 MG; Start 12/26/16 at 21:00 Folic Acid (Folic Acid) 1 mg DAILY PO Last administered on 01/22/17 08:31; Admin Dose 1 MG; Start 12/27/16 at 09:00 Gabapentin (Neurontin) 100 mg TID PO Last administered on 01/22/17 12:12; Admin Dose 100 MG; Start 12/26/16 at 21:00 Metoprolol Tartrate (Lopressor) 75 mg BID PO Last administered on 01/21/17 20: 52; Admin Dose 75 MG; Start 12/26/16 at 21:00 Mycophenolate Mofetil (Cellcept) 1,000 mg BID PO Last administered on 08:32; Admin Dose 1,000 MG; Start 12/26/16 at 21:00 Pantoprazole (Protonix Tab) 40 mg DAILY@06 PO Last administered on 01/22/17 05 :38; Admin Dose 40 MG; Start 12/27/16 at 06:00 Diagnostic Test (Pha) (Accu-Chek) 1 ea 02 XX ; Start 12/27/16 at 02:00 Miscellaneous Information 1 ea NOTE XX ; Start 12/26/16 at 14:30 Glucose (Glutose) 15 gm Q15M PRN PO DECREASED GLUCOSE; Start 12/26/16 at 14:30 Glucose (Glutose) 22.5 gm Q15M PRN PO DECREASED GLUCOSE; Start 12/26/16 at 14:30 Dextrose (D50w Syringe) 25 ml Q15M PRN IV DECREASED GLUCOSE; Start 12/26/16 at 14:30 Dextrose (D50w Syringe) 50 ml Q15M PRN IV DECREASED GLUCOSE; Start 12/26/16 at 14:30 Glucagon (Glucagen) 1 mg Q15M PRN IM DECREASED GLUCOSE; Start 12/26/16 at 14:30 Glucose (Glutose) 15 gm Q15M PRN BUCCAL DECREASED GLUCOSE; Start 12/26/16 at 14: 30 Cholecalciferol (Vitamin D) 1,000 unit DAILY PO Last administered on 01/22/17 08:30; Admin Dose 1,000 UNIT; Start 12/28/16 at 09:00 Ondansetron HCl 4 mg 4 mg Q6H PRN IV NAUSEA AND/OR VOMITING Last administered on 01/15/17 09:50; Admin Dose 4 MG; Start 01/01/17 at 10:00 Ertapenem/Sodium Chloride (Invanz/NS) 100 ml @ 200 mls/hr Q24H IVPB Last administered on 01/22/17 14:40; Admin Dose 200 MLS/HR; Start 01/06/17 at 14:30 Haloperidol (Haldol) 2 mg Q4H PRN IM AGITATION/ANXIETY Last administered on 22:46; Admin Dose 2 MG; Start 01/08/17 at 01:30 Acetaminophen (Tylenol Tab) 650 mg Q6H PRN PO PAIN AND OR ELEVATED TEMP Last administered on 01/16/17 10:25; Admin Dose 650 MG; Start 01/08/17 at 22:30 Quetiapine Fumarate (Seroquel) 25 mg QHS PRN PO agitation/hallucinations Last administered on 01/09/17 22:15; Admin Dose 25 MG; Start 01/09/17 at 21:00 Morphine Sulfate (morphine) 2 mg Q8H PRN IV PAIN LEVEL 6-10 Last administered on 01/19/17 16:02; Admin Dose 2 MG; Start 01/11/17 at 14:00 Clonidine (Catapres) 0.1 mg Q6H PRN PO hypertension Last administered on 02:41; Admin Dose 0.1 MG; Start 01/14/17 at 02:30 Hydralazine HCl (Apresoline) 25 mg Q6H PRN IV ELEVATED SYSTOLIC BP Last administered on 01/14/17 07:04; Admin Dose 25 MG; Start 01/14/17 at 07:00 Insulin Glargine (Lantus) 5 unit DAILY@20 SC Last administered on 01/21/17 20: 54; Admin Dose 5 UNIT; Start 01/17/17 at 20:00 Vancomycin HCl (Vancomycin Oral Syringe) 125 mg Q6 PO Last administered on 01/22 12:14; Admin Dose 125 MG; Start 01/17/17 at 18:00 Tacrolimus (Prograf) 2 mg Q12 PO Last administered on 01/22/17 08:31; Admin Dose 2 MG; Start 01/18/17 at 09:00 IV Flush (NS 10 ml) 10 ml PRN PRN IV IV PROTOCOL; Start 01/19/17 at 12:30 Acetaminophen/ Hydrocodone Bitart ([place] (5/325)) 1 tab Q8H PRN PO PAIN Last administered on 01/22/17 11:47; Admin Dose 1 TAB; Start 01/19/17 at 14:30 Benazepril HCl (Lotensin) 10 mg BID PO Last administered on 01/21/17 20:53; Admin Dose 10 MG; Start 01/20/17 at 21:00 LES GILLILAND Jan 22, 2017 15:57
--- NOTE | 2017-01-22 19:18 | CONS ---
Date/Time of Note Date/Time of Note DATE: 01/22/17 TIME: 19:17 Assessment/Plan Assessment/Plan Chief Complaint/Hosp Course SUBJECTIVE DATA: No acute events. Patient is awake, looks comfortable. No fevers. ANTIMICROBIALS: Invanz and oral vancomycin. OBJECTIVE DATA: GENERAL: Chronically ill-appearing, elderly woman, who is awake, in no distress. HEENT: Head atraumatic, normocephalic. Sclerae anicteric. Buccal mucosa dry. NECK: Supple. CHEST: Rise symmetrical. Breath sounds diminished at the bases. HEART: S1, S2. ABDOMEN: Soft, bowel sounds present. EXTREMITIES: With left above-knee amputation. The right foot dressing intact. ASSESSMENT: 1. Bilateral lower extremities gangrene, status post left above- knee amputation. 2. Severe peripheral arterial disease, failed multiple revascularization procedures. 3. History of kidney transplant, remains on immunosuppressive therapy. 4. Resolved diarrhea, on empiric oral vancomycin. 5. Diabetes. 6. History of uvqtshgv-udswsrzp-cvaq-lactamase urinary tract infection. 7. R foot gangrene with open wound==> cx + E coli ESBL PLAN: Patient remains stable. L AKA with some demarcation, will ask vascular team to re-evaluate, continue abx, local wound care of R foot wound DW staff Problems: Consultation Date/Type/Reason Admit Date/Time Dec 26, 2016 at 13:22 Initial Consult Date 12/27/16 Type of Consultation: ID Referring Provider: LES GILLILAND Exam/Review of Systems Vital Signs Vitals Vital Signs Date Time Temp Pulse Resp B/P Pulse Ox O2 Delivery O2 Flow Rate FiO2 01/22/17 14:29 98.4 100 18 110/52 98 Intake and Output 01/21/17 01/21/17 01/22/17 14:59 22:59 06:59 Intake Total 100 ml 680 ml 400 ml Balance 100 ml 680 ml 400 ml Results Result Diagram: 01/21/17 0515 01/21/17 0454 Results 24 hrs Laboratory Tests Test 01/21/17 20:49 01/22/17 07:54 01/22/17 11:49 01/22/17 17:13 Bedside Glucose 117 99 145 118 Medications Medications Current Medications Aspirin (Halfprin) 81 mg DAILY PO Last administered on 01/22/17t 08:32; Admin Dose 81 MG; Start 12/27/16 at 09:00 Clopidogrel Bisulfate (plaVIX) 75 mg DAILY PO Last administered on 01/22/17 08 :30; Admin Dose 75 MG; Start 12/27/16 at 09:00 Famotidine (Pepcid) 40 mg HS PO Last administered on 01/21/17 20:53; Admin Dose 40 MG; Start 12/26/16 at 21:00 Folic Acid (Folic Acid) 1 mg DAILY PO Last administered on 01/22/17 08:31; Admin Dose 1 MG; Start 12/27/16 at 09:00 Gabapentin (Neurontin) 100 mg TID PO Last administered on 01/22/17 12:12; Admin Dose 100 MG; Start 12/26/16 at 21:00 Metoprolol Tartrate (Lopressor) 75 mg BID PO Last administered on 01/21/17 20: 52; Admin Dose 75 MG; Start 12/26/16 at 21:00 Mycophenolate Mofetil (Cellcept) 1,000 mg BID PO Last administered on 08:32; Admin Dose 1,000 MG; Start 12/26/16 at 21:00 Pantoprazole (Protonix Tab) 40 mg DAILY@06 PO Last administered on 01/22/17 05 :38; Admin Dose 40 MG; Start 12/27/16 at 06:00 Diagnostic Test (Pha) (Accu-Chek) 1 ea 02 XX ; Start 12/27/16 at 02:00 Miscellaneous Information 1 ea NOTE XX ; Start 12/26/16 at 14:30 Glucose (Glutose) 15 gm Q15M PRN PO DECREASED GLUCOSE; Start 12/26/16 at 14:30 Glucose (Glutose) 22.5 gm Q15M PRN PO DECREASED GLUCOSE; Start 12/26/16 at 14:30 Dextrose (D50w Syringe) 25 ml Q15M PRN IV DECREASED GLUCOSE; Start 12/26/16 at 14:30 Dextrose (D50w Syringe) 50 ml Q15M PRN IV DECREASED GLUCOSE; Start 12/26/16 at 14:30 Glucagon (Glucagen) 1 mg Q15M PRN IM DECREASED GLUCOSE; Start 12/26/16 at 14:30 Glucose (Glutose) 15 gm Q15M PRN BUCCAL DECREASED GLUCOSE; Start 12/26/16 at 14: 30 Cholecalciferol (Vitamin D) 1,000 unit DAILY PO Last administered on 01/22/17 08:30; Admin Dose 1,000 UNIT; Start 12/28/16 at 09:00 Ondansetron HCl 4 mg 4 mg Q6H PRN IV NAUSEA AND/OR VOMITING Last administered on 01/15/17 09:50; Admin Dose 4 MG; Start 01/01/17 at 10:00 Ertapenem/Sodium Chloride (Invanz/NS) 100 ml @ 200 mls/hr Q24H IVPB Last administered on 01/22/17 14:40; Admin Dose 200 MLS/HR; Start 01/06/17 at 14:30 Haloperidol (Haldol) 2 mg Q4H PRN IM AGITATION/ANXIETY Last administered on 22:46; Admin Dose 2 MG; Start 01/08/17 at 01:30 Acetaminophen (Tylenol Tab) 650 mg Q6H PRN PO PAIN AND OR ELEVATED TEMP Last administered on 01/16/17 10:25; Admin Dose 650 MG; Start 01/08/17 at 22:30 Quetiapine Fumarate (Seroquel) 25 mg QHS PRN PO agitation/hallucinations Last administered on 01/09/17 22:15; Admin Dose 25 MG; Start 01/09/17 at 21:00 Morphine Sulfate (morphine) 2 mg Q8H PRN IV PAIN LEVEL 6-10 Last administered on 01/19/17 16:02; Admin Dose 2 MG; Start 01/11/17 at 14:00 Clonidine (Catapres) 0.1 mg Q6H PRN PO hypertension Last administered on 02:41; Admin Dose 0.1 MG; Start 01/14/17 at 02:30 Hydralazine HCl (Apresoline) 25 mg Q6H PRN IV ELEVATED SYSTOLIC BP Last administered on 01/14/17 07:04; Admin Dose 25 MG; Start 01/14/17 at 07:00 Insulin Glargine (Lantus) 5 unit DAILY@20 SC Last administered on 01/21/17 20: 54; Admin Dose 5 UNIT; Start 01/17/17 at 20:00 Vancomycin HCl (Vancomycin Oral Syringe) 125 mg Q6 PO Last administered on 01/22 17:14; Admin Dose 125 MG; Start 01/17/17 at 18:00 Tacrolimus (Prograf) 2 mg Q12 PO Last administered on 01/22/17 08:31; Admin Dose 2 MG; Start 01/18/17 at 09:00 IV Flush (NS 10 ml) 10 ml PRN PRN IV IV PROTOCOL; Start 01/19/17 at 12:30 Acetaminophen/ Hydrocodone Bitart ([place] (5/325)) 1 tab Q8H PRN PO PAIN Last administered on 01/22/17 11:47; Admin Dose 1 TAB; Start 01/19/17 at 14:30 Benazepril HCl (Lotensin) 10 mg BID PO Last administered on 01/21/17 20:53; Admin Dose 10 MG; Start 01/20/17 at 21:00 JACQUES HUERTA NP Jan 22, 2017 19:18
[2017-01-22 20:02] VITALS: BP 86/45; RESP 18
[2017-01-22] MEDS: FAMOTIDINE 20 MG TAB PO SCH (21:55)
[2017-01-22] MEDS: INSULIN GLARGINE [LANtus] 3 ML PEN SC SCH (21:56)
[2017-01-22 22:05] VITALS: BP 103/45; PULSE 87
[2017-01-23] MEDS: ACCU-CHEK XX SCH (02:00)
[2017-01-23 02:20] VITALS: BP 106/56; RESP 17
[2017-01-23] MEDS: PANTOPRAZOLE (EC) 40 MG TAB PO SCH (05:51)
[2017-01-23] MEDS: VANCOMYCIN HCL 250 MG/5ML POSYG PO SCH ×4 (05:51→23:33)
[2017-01-23 06:16] LABS: CREATININE 0.55 mg/dl (0.44-1.00); POTASSIUM 4.1 mmol/L (3.5-5.1)
[2017-01-23 07:53] VITALS: BP 99/55; RESP 20
[2017-01-23] MEDS: INSULIN ASPART [NOVOLOG] 3 ML PEN SC SCH ×4 (08:00→21:00)
[2017-01-23] MEDS: BENAZEPRIL 10 MG TAB PO SCH (08:11)
[2017-01-23] MEDS: METOPROLOL 25 MG TAB PO SCH (08:11)
[2017-01-23] MEDS: MYCOPHENOLATE 250 MG CAP PO SCH ×2 (09:44→21:55)
[2017-01-23] MEDS: GABAPENTIN 100 MG CAP PO SCH ×3 (09:44→21:57)
[2017-01-23] MEDS: CLOPIDOGREL 75 MG TAB PO SCH (09:44)
[2017-01-23] MEDS: CHOLECALCIFEROL 1,000 UNIT TAB PO SCH (09:44)
[2017-01-23] MEDS: TACROLIMUS 1 MG CAP PO SCH ×2 (09:44→21:55)
[2017-01-23] MEDS: ASPIRIN (EC) 81 MG TAB PO SCH (09:44)
[2017-01-23] MEDS: FOLIC ACID 1 MG TAB PO SCH (09:44)
[2017-01-23] MEDS: HYDROCODONE/APAP (5/325) TAB PO PRN ×2 (10:56→21:56)
--- NOTE | 2017-01-23 11:57 | PN ---
Date/Time of Note Date/Time of Note DATE: 01/23/17 TIME: 11:45 Assessment/Plan VTE Prophylaxis VTE Prophylaxis Intervention: other Lines/Catheters IV Catheter Type (from [facility]): PICC Line Central line still needed: Yes Urinary Cath still in place: No Assessment/Plan Assessment/Plan - Acute encephalopathy, resolved. CT brain is negative for any acute pathology. 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 S/p left AKA 01/[address] Valencia, vascular surgery. - Diabetes mellitus type II. Continue Lantus and NovoLog. - History of kidney transplant in 2009, on immunosuppressive therapy. - Hypertension. Continue metoprolol, benazepril. 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 - Anemia of chronic kidney disease. Further recommendations based on clinical course. Plan of care discussed with Dr. Cohen Subjective 24 Hr Interval Summary Free Text/Dictation -c/o left AKA limb - vss -Patient getting PT- was able to sit at edge of bed, took few steps with walker inside room per PT -continue PT. dw staff Respiratory: no complaints Cardiovascular: no complaints Gastrointestinal: no complaints Genitourinary: no complaints Musculoskeletal: bone/joint pain Skin: no complaints Exam/Review of Systems Vital Signs Vitals Vital Signs Date Time Temp Pulse Resp B/P Pulse Ox O2 Delivery O2 Flow Rate FiO2 01/23/17 07:53 98.1 88 20 99/55 99 Intake and Output 01/22/17 01/22/17 01/23/17 15:00 23:00 07:00 Intake Total 520 ml 400 ml Balance 520 ml 400 ml Exam Constitutional: alert Respiratory: clear to auscultation, normal air movement Cardiovascular: regular rate and rhythm Gastrointestinal: non-tender, soft Musculoskeletal: other Extremities: normal pulses Neurological: nl speech Results Result Diagram: 01/21/17 0515 01/23/17 05 Results 24 hrs Laboratory Tests Test 01/22/17 11:49 01/22/17 17:13 01/22/17 21:53 01/23/17 05:22 Bedside Glucose 145 118 106 Sodium Level 136 Potassium Level 4.1 Chloride Level 106 Carbon Dioxide Level 27 Anion Gap 7 L Blood Urea Nitrogen 14 Creatinine 0.55 Glucose Level 85 Calcium Level 9.0 Test 01/23/17 08:05 Bedside Glucose 95 Medications Medications Current Medications Aspirin (Halfprin) 81 mg DAILY PO Last administered on 01/23/17 09:44; Admin Dose 81 MG; Start 12/27/16 at 09:00 Clopidogrel Bisulfate (plaVIX) 75 mg DAILY PO Last administered on 01/23/17 09 :44; Admin Dose 75 MG; Start 12/27/16 at 09:00 Famotidine (Pepcid) 40 mg HS PO Last administered on 01/22/17 21:55; Admin Dose 40 MG; Start 12/26/16 at 21:00 Folic Acid (Folic Acid) 1 mg DAILY PO Last administered on 01/23/17 09:44; Admin Dose 1 MG; Start 12/27/16 at 09:00 Gabapentin (Neurontin) 100 mg TID PO Last administered on 01/23/17 09:44; Admin Dose 100 MG; Start 12/26/16 at 21:00 Metoprolol Tartrate (Lopressor) 75 mg BID PO Last administered on 01/21/17 20: 52; Admin Dose 75 MG; Start 12/26/16 at 21:00 Mycophenolate Mofetil (Cellcept) 1,000 mg BID PO Last administered on 09:44; Admin Dose 1,000 MG; Start 12/26/16 at 21:00 Pantoprazole (Protonix Tab) 40 mg DAILY@06 PO Last administered on 01/23/17 05 :51; Admin Dose 40 MG; Start 12/27/16 at 06:00 Diagnostic Test (Pha) (Accu-Chek) 1 ea 02 XX ; Start 12/27/16 at 02:00 Miscellaneous Information 1 ea NOTE XX ; Start 12/26/16 at 14:30 Glucose (Glutose) 15 gm Q15M PRN PO DECREASED GLUCOSE; Start 12/26/16 at 14:30 Glucose (Glutose) 22.5 gm Q15M PRN PO DECREASED GLUCOSE; Start 12/26/16 at 14:30 Dextrose (D50w Syringe) 25 ml Q15M PRN IV DECREASED GLUCOSE; Start 12/26/16 at 14:30 Dextrose (D50w Syringe) 50 ml Q15M PRN IV DECREASED GLUCOSE; Start 12/26/16 at 14:30 Glucagon (Glucagen) 1 mg Q15M PRN IM DECREASED GLUCOSE; Start 12/26/16 at 14:30 Glucose (Glutose) 15 gm Q15M PRN BUCCAL DECREASED GLUCOSE; Start 12/26/16 at 14: 30 Cholecalciferol (Vitamin D) 1,000 unit DAILY PO Last administered on 01/23/17 09:44; Admin Dose 1,000 UNIT; Start 12/28/16 at 09:00 Ondansetron HCl 4 mg 4 mg Q6H PRN IV NAUSEA AND/OR VOMITING Last administered on 01/15/17 09:50; Admin Dose 4 MG; Start 01/01/17 at 10:00 Ertapenem/Sodium Chloride (Invanz/NS) 100 ml @ 200 mls/hr Q24H IVPB Last administered on 01/22/17 14:40; Admin Dose 200 MLS/HR; Start 01/06/17 at 14:30 Haloperidol (Haldol) 2 mg Q4H PRN IM AGITATION/ANXIETY Last administered on 22:46; Admin Dose 2 MG; Start 01/08/17 at 01:30 Acetaminophen (Tylenol Tab) 650 mg Q6H PRN PO PAIN AND OR ELEVATED TEMP Last administered on 01/16/17 10:25; Admin Dose 650 MG; Start 01/08/17 at 22:30 Quetiapine Fumarate (Seroquel) 25 mg QHS PRN PO agitation/hallucinations Last administered on 01/09/17 22:15; Admin Dose 25 MG; Start 01/09/17 at 21:00 Morphine Sulfate (morphine) 2 mg Q8H PRN IV PAIN LEVEL 6-10 Last administered on 01/19/17 16:02; Admin Dose 2 MG; Start 01/11/17 at 14:00 Clonidine (Catapres) 0.1 mg Q6H PRN PO hypertension Last administered on 02:41; Admin Dose 0.1 MG; Start 01/14/17 at 02:30 Hydralazine HCl (Apresoline) 25 mg Q6H PRN IV ELEVATED SYSTOLIC BP Last administered on 01/14/17 07:04; Admin Dose 25 MG; Start 01/14/17 at 07:00 Insulin Glargine (Lantus) 5 unit DAILY@20 SC Last administered on 01/22/17 21: 56; Admin Dose 5 UNIT; Start 01/17/17 at 20:00 Vancomycin HCl (Vancomycin Oral Syringe) 125 mg Q6 PO Last administered on 01/23 05:51; Admin Dose 125 MG; Start 01/17/17 at 18:00 Tacrolimus (Prograf) 2 mg Q12 PO Last administered on 01/23/17 09:44; Admin Dose 2 MG; Start 01/18/17 at 09:00 IV Flush (NS 10 ml) 10 ml PRN PRN IV IV PROTOCOL; Start 01/19/17 at 12:30 Acetaminophen/ Hydrocodone Bitart ([place] (5/325)) 1 tab Q8H PRN PO PAIN Last administered on 01/23/17 10:56; Admin Dose 1 TAB; Start 01/19/17 at 14:30 Benazepril HCl (Lotensin) 10 mg BID PO Last administered on 01/21/17 20:53; Admin Dose 10 MG; Start 01/20/17 at 21:00 TIM BENNETT Jan 23, 2017 11:55
--- NOTE | 2017-01-23 12:58 | CONS ---
Date/Time of Note Date/Time of Note DATE: 01/23/17 TIME: 12:56 Assessment/Plan Assessment/Plan Chief Complaint/Hosp Course IMP: 1.Vay-fk-rcuqnk test 10/2016 with no ischemia/only scar/NL EF. Negative trop x 3. No CP/sob 2.HTN-very labile and on low end with holding of anti-hypertensives 3.PAD with bilateral gangrene s/p L LE amputation 4.DM 5.Anemia 6. Encephalopathy Recc: -Continuer asa/plavix -Cointinue benazepril/BB but will decrsae doses to allow patient to better tolerate and follow BP closely -Local wound care -Continue abx's and f/u cx data -Continue immuonosuppresives Problems: Consultation Date/Type/Reason Admit Date/Time Dec 26, 2016 at 13:22 Initial Consult Date 12/27/16 Type of Consultation: cardiology Reason for Consultation HTN Referring Provider: LES GILLILAND Exam/Review of Systems Vital Signs Vitals Vital Signs Date Time Temp Pulse Resp B/P Pulse Ox O2 Delivery O2 Flow Rate FiO2 01/23/17 07:53 98.1 88 20 99/55 99 Intake and Output 01/22/17 01/22/17 01/23/17 15:00 23:00 07:00 Intake Total 520 ml 400 ml Balance 520 ml 400 ml Exam Review of Systems: CONSTITUTIONAL: No fevers, chills. PULMONARY: No sob CARDIOVASCULAR: No chest pain/palpitations GASTROINTESTINAL: No nausea/vomiting. GENITOURINARY: No hematuria/dysuria. MUSCULOSKELETAL: mild pain in foot. PSYCHIATRIC: The patient denies depression. NEUROLOGIC: No weakness Constitutional: alert Psych: no complaints Head: normocephalic ENMT: mucosa pink and moist Neck: jvd (8 cm water), supple Respiratory: clear to auscultation Cardiovascular: regular rate and rhythm Gastrointestinal: soft Musculoskeletal: muscle tone (normal), other (s/p LLE BKA, RLE covered by dressing s/p toe amputation) Extremities: edema (one) Results Result Diagram: 01/21/1715 01/23/17 0522 Results 24 hrs Laboratory Tests Test 01/22/17 17:13 01/22/17 21:53 01/23/17 05:22 01/23/17 08:05 Bedside Glucose 118 106 95 Sodium Level 136 Potassium Level 4.1 Chloride Level 106 Carbon Dioxide Level 27 Anion Gap 7 L Blood Urea Nitrogen 14 Creatinine 0.55 Glucose Level 85 Calcium Level 9.0 Medications Medications Current Medications Aspirin (Halfprin) 81 mg DAILY PO Last administered on 01/23/17 09:44; Admin Dose 81 MG; Start 12/27/16 at 09:00 Clopidogrel Bisulfate (plaVIX) 75 mg DAILY PO Last administered on 01/23/17 09 :44; Admin Dose 75 MG; Start 12/27/16 at 09:00 Famotidine (Pepcid) 40 mg HS PO Last administered on 01/22/17 21:55; Admin Dose 40 MG; Start 12/26/16 at 21:00 Folic Acid (Folic Acid) 1 mg DAILY PO Last administered on 01/23/17 09:44; Admin Dose 1 MG; Start 12/27/16 at 09:00 Gabapentin (Neurontin) 100 mg TID PO Last administered on 01/23/17 09:44; Admin Dose 100 MG; Start 12/26/16 at 21:00 Metoprolol Tartrate (Lopressor) 75 mg BID PO Last administered on 01/21/17 20: 52; Admin Dose 75 MG; Start 12/26/16 at 21:00 Mycophenolate Mofetil (Cellcept) 1,000 mg BID PO Last administered on 09:44; Admin Dose 1,000 MG; Start 12/26/16 at 21:00 Pantoprazole (Protonix Tab) 40 mg DAILY@06 PO Last administered on 01/23/17 05 :51; Admin Dose 40 MG; Start 12/27/16 at 06:00 Diagnostic Test (Pha) (Accu-Chek) 1 ea 02 XX ; Start 12/27/16 at 02:00 Miscellaneous Information 1 ea NOTE XX ; Start 12/26/16 at 14:30 Glucose (Glutose) 15 gm Q15M PRN PO DECREASED GLUCOSE; Start 12/26/16 at 14:30 Glucose (Glutose) 22.5 gm Q15M PRN PO DECREASED GLUCOSE; Start 12/26/16 at 14:30 Dextrose (D50w Syringe) 25 ml Q15M PRN IV DECREASED GLUCOSE; Start 12/26/16 at 14:30 Dextrose (D50w Syringe) 50 ml Q15M PRN IV DECREASED GLUCOSE; Start 12/26/16 at 14:30 Glucagon (Glucagen) 1 mg Q15M PRN IM DECREASED GLUCOSE; Start 12/26/16 at 14:30 Glucose (Glutose) 15 gm Q15M PRN BUCCAL DECREASED GLUCOSE; Start 12/26/16 at 14: 30 Cholecalciferol (Vitamin D) 1,000 unit DAILY PO Last administered on 01/23/17 09:44; Admin Dose 1,000 UNIT; Start 12/28/16 at 09:00 Ondansetron HCl 4 mg 4 mg Q6H PRN IV NAUSEA AND/OR VOMITING Last administered on 01/15/17 09:50; Admin Dose 4 MG; Start 01/01/17 at 10:00 Ertapenem/Sodium Chloride (Invanz/NS) 100 ml @ 200 mls/hr Q24H IVPB Last administered on 01/22/17 14:40; Admin Dose 200 MLS/HR; Start 01/06/17 at 14:30 Haloperidol (Haldol) 2 mg Q4H PRN IM AGITATION/ANXIETY Last administered on 22:46; Admin Dose 2 MG; Start 01/08/17 at 01:30 Acetaminophen (Tylenol Tab) 650 mg Q6H PRN PO PAIN AND OR ELEVATED TEMP Last administered on 01/16/17 10:25; Admin Dose 650 MG; Start 01/08/17 at 22:30 Quetiapine Fumarate (Seroquel) 25 mg QHS PRN PO agitation/hallucinations Last administered on 01/09/17 22:15; Admin Dose 25 MG; Start 01/09/17 at 21:00 Morphine Sulfate (morphine) 2 mg Q8H PRN IV PAIN LEVEL 6-10 Last administered on 01/19/17 16:02; Admin Dose 2 MG; Start 01/11/17 at 14:00 Clonidine (Catapres) 0.1 mg Q6H PRN PO hypertension Last administered on 02:41; Admin Dose 0.1 MG; Start 01/14/17 at 02:30 Hydralazine HCl (Apresoline) 25 mg Q6H PRN IV ELEVATED SYSTOLIC BP Last administered on 01/14/17 07:04; Admin Dose 25 MG; Start 01/14/17 at 07:00 Insulin Glargine (Lantus) 5 unit DAILY@20 SC Last administered on 01/22/17 21: 56; Admin Dose 5 UNIT; Start 01/17/17 at 20:00 Vancomycin HCl (Vancomycin Oral Syringe) 125 mg Q6 PO Last administered on 01/23 05:51; Admin Dose 125 MG; Start 01/17/17 at 18:00 Tacrolimus (Prograf) 2 mg Q12 PO Last administered on 01/23/17 09:44; Admin Dose 2 MG; Start 01/18/17 at 09:00 IV Flush (NS 10 ml) 10 ml PRN PRN IV IV PROTOCOL; Start 01/19/17 at 12:30 Acetaminophen/ Hydrocodone Bitart ([place] (5/325)) 1 tab Q8H PRN PO PAIN Last administered on 01/23/17 10:56; Admin Dose 1 TAB; Start 01/19/17 at 14:30 Benazepril HCl (Lotensin) 10 mg BID PO Last administered on 01/21/17 20:53; Admin Dose 10 MG; Start 01/20/17 at 21:00 TIMOTHY CORTES Jan 23, 2017 12:58
--- NOTE | 2017-01-23 13:39 | CONS ---
Date/Time of Note Date/Time of Note DATE: 01/23/17 TIME: 13:38 Assessment/Plan Assessment/Plan Chief Complaint/Hosp Course SUBJECTIVE DATA: No acute events. Patient is alert, looks comfortable. No fevers. ANTIMICROBIALS: Invanz and oral vancomycin. OBJECTIVE DATA: GENERAL: Chronically ill-appearing, elderly woman, who is awake, in no distress. HEENT: Head atraumatic, normocephalic. Sclerae anicteric. Buccal mucosa dry. NECK: Supple. CHEST: Rise symmetrical. Breath sounds diminished at the bases. HEART: S1, S2. ABDOMEN: Soft, bowel sounds present. EXTREMITIES: With left above-knee amputation. The right foot dressing intact. ASSESSMENT: 1. Bilateral lower extremities gangrene, status post left above- knee amputation. 2. Severe peripheral arterial disease, failed multiple revascularization procedures. 3. History of kidney transplant, remains on immunosuppressive therapy. 4. Resolved diarrhea, on empiric oral vancomycin. 5. Diabetes. 6. History of wchgxxsv-szhuvlqv-pivx-lactamase urinary tract infection. 7. R foot gangrene with open wound==> cx + E coli ESBL PLAN: Patient remains stable. Continue present care, complete abx, f/u vascular rec-s [facility] staff Problems: Consultation Date/Type/Reason Admit Date/Time Dec 26, 2016 at 13:22 Initial Consult Date 12/27/16 Type of Consultation: ID Referring Provider: LES GILLILAND Exam/Review of Systems Vital Signs Vitals Vital Signs Date Time Temp Pulse Resp B/P Pulse Ox O2 Delivery O2 Flow Rate FiO2 01/23/17 07:53 98.1 88 20 99/55 99 Intake and Output 01/22/17 01/22/17 01/23/17 15:00 23:00 07:00 Intake Total 520 ml 400 ml Balance 520 ml 400 ml Results Result Diagram: 01/21/17 0515 01/23/17 0522 Results 24 hrs Laboratory Tests Test 01/22/17 17:13 01/22/17 21:53 01/23/17 05:22 01/23/17 08:05 Bedside Glucose 118 106 95 Sodium Level 136 Potassium Level 4.1 Chloride Level 106 Carbon Dioxide Level 27 Anion Gap 7 L Blood Urea Nitrogen 14 Creatinine 0.55 Glucose Level 85 Calcium Level 9.0 Test 01/23/17 12:49 Bedside Glucose 128 Medications Medications Current Medications Aspirin (Halfprin) 81 mg DAILY PO Last administered on 01/23/17 09:44; Admin Dose 81 MG; Start 12/27/16 at 09:00 Clopidogrel Bisulfate (plaVIX) 75 mg DAILY PO Last administered on 01/23/17 09 :44; Admin Dose 75 MG; Start 12/27/16 at 09:00 Famotidine (Pepcid) 40 mg HS PO Last administered on 01/22/17 21:55; Admin Dose 40 MG; Start 12/26/16 at 21:00 Folic Acid (Folic Acid) 1 mg DAILY PO Last administered on 01/23/17 09:44; Admin Dose 1 MG; Start 12/27/16 at 09:00 Gabapentin (Neurontin) 100 mg TID PO Last administered on 01/23/17 12:57; Admin Dose 100 MG; Start 12/26/16 at 21:00 Mycophenolate Mofetil (Cellcept) 1,000 mg BID PO Last administered on 09:44; Admin Dose 1,000 MG; Start 12/26/16 at 21:00 Pantoprazole (Protonix Tab) 40 mg DAILY@06 PO Last administered on 01/23/17 05 :51; Admin Dose 40 MG; Start 12/27/16 at 06:00 Diagnostic Test (Pha) (Accu-Chek) 1 ea 02 XX ; Start 12/27/16 at 02:00 Miscellaneous Information 1 ea NOTE XX ; Start 12/26/16 at 14:30 Glucose (Glutose) 15 gm Q15M PRN PO DECREASED GLUCOSE; Start 12/26/16 at 14:30 Glucose (Glutose) 22.5 gm Q15M PRN PO DECREASED GLUCOSE; Start 12/26/16 at 14:30 Dextrose (D50w Syringe) 25 ml Q15M PRN IV DECREASED GLUCOSE; Start 12/26/16 at 14:30 Dextrose (D50w Syringe) 50 ml Q15M PRN IV DECREASED GLUCOSE; Start 12/26/16 at 14:30 Glucagon (Glucagen) 1 mg Q15M PRN IM DECREASED GLUCOSE; Start 12/26/16 at 14:30 Glucose (Glutose) 15 gm Q15M PRN BUCCAL DECREASED GLUCOSE; Start 12/26/16 at 14: 30 Cholecalciferol (Vitamin D) 1,000 unit DAILY PO Last administered on 01/23/17 09:44; Admin Dose 1,000 UNIT; Start 12/28/16 at 09:00 Ondansetron HCl 4 mg 4 mg Q6H PRN IV NAUSEA AND/OR VOMITING Last administered on 01/15/17 09:50; Admin Dose 4 MG; Start 01/01/17 at 10:00 Ertapenem/Sodium Chloride (Invanz/NS) 100 ml @ 200 mls/hr Q24H IVPB Last administered on 01/22/17 14:40; Admin Dose 200 MLS/HR; Start 01/06/17 at 14:30 Haloperidol (Haldol) 2 mg Q4H PRN IM AGITATION/ANXIETY Last administered on 22:46; Admin Dose 2 MG; Start 01/08/17 at 01:30 Acetaminophen (Tylenol Tab) 650 mg Q6H PRN PO PAIN AND OR ELEVATED TEMP Last administered on 01/16/17 10:25; Admin Dose 650 MG; Start 01/08/17 at 22:30 Quetiapine Fumarate (Seroquel) 25 mg QHS PRN PO agitation/hallucinations Last administered on 01/09/17 22:15; Admin Dose 25 MG; Start 01/09/17 at 21:00 Morphine Sulfate (morphine) 2 mg Q8H PRN IV PAIN LEVEL 6-10 Last administered on 01/19/17 16:02; Admin Dose 2 MG; Start 01/11/17 at 14:00 Clonidine (Catapres) 0.1 mg Q6H PRN PO hypertension Last administered on 02:41; Admin Dose 0.1 MG; Start 01/14/17 at 02:30 Hydralazine HCl (Apresoline) 25 mg Q6H PRN IV ELEVATED SYSTOLIC BP Last administered on 01/14/17 07:04; Admin Dose 25 MG; Start 01/14/17 at 07:00 Insulin Glargine (Lantus) 5 unit DAILY@20 SC Last administered on 01/22/17 21: 56; Admin Dose 5 UNIT; Start 01/17/17 at 20:00 Vancomycin HCl (Vancomycin Oral Syringe) 125 mg Q6 PO Last administered on 01/23 12:57; Admin Dose 125 MG; Start 01/17/17 at 18:00 Tacrolimus (Prograf) 2 mg Q12 PO Last administered on 01/23/17 09:44; Admin Dose 2 MG; Start 01/18/17 at 09:00 IV Flush (NS 10 ml) 10 ml PRN PRN IV IV PROTOCOL; Start 01/19/17 at 12:30 Acetaminophen/ Hydrocodone Bitart ([place] (5/325)) 1 tab Q8H PRN PO PAIN Last administered on 01/23/17 10:56; Admin Dose 1 TAB; Start 01/19/17 at 14:30 Benazepril HCl (Lotensin) 10 mg DAILY PO ; Start 01/24/17 at 09:00 Metoprolol Tartrate (Lopressor) 50 mg BID PO ; Start 01/23/17 at 21:00 JACQUES HUERTA NP Jan 23, 2017 13:39
[2017-01-23 14:00] VITALS: BP 101/60; RESP 18
[2017-01-23] MEDS: ERTAPENEM SODIUM 1 GM in SOD CHLORIDE 0.9% 100 ML IVPB SCH (15:02)
--- NOTE | 2017-01-23 17:04 | CONS ---
Date/Time of Note Date/Time of Note DATE: 01/23/17 TIME: 17:03 Assessment/Plan Assessment/Plan Additional Assessment/Plan 1. 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 h/o donor kidney transplant in 2009 at [facility], currently on immunosuppression with Prograf, CellCept 4. 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 History of hypertension. 6. History of diabetes mellitus. 7. History of previous left upper extremity arteriovenous fistula. 8. Hyponatremia due to hypovolemic hyponatremia post op 9. -CT chest+ abd+pelvis with and without contrast negative for mass/LAD/ Malignancy Plan: continue Current immunosuppression Prograf and cellcept, Cr normal, s/p Left AKA- Post op care as per surgery Cr and Elecfrolyes stable today IV abx as per ID- pt is on IV invanz now will follow up Consultation Date/Type/Reason Admit Date/Time Dec 26, 2016 at 13:22 Initial Consult Date 12/27/16 Type of Consultation: NEPHROLOGY Referring Provider: LES GILLILAND Exam/Review of Systems Vital Signs Vitals Vital Signs Date Time Temp Pulse Resp B/P Pulse Ox O2 Delivery O2 Flow Rate FiO2 01/23/17 14:00 98.8 94 18 101/60 98 Intake and Output 01/22/17 01/22/17 01/23/17 15:00 23:00 07:00 Intake Total 520 ml 400 ml Balance 520 ml 400 ml Exam GEN: fragile elderly woman who is awake in no distress. HEENT: Head atraumatic, normocephalic. Sclerae anicteric. NECK: Supple. CHEST: Rise symmetrical. Breath sounds clear. HEART: S1, S2. ABDOMEN: Soft, bowel sounds present. left BKA dressing clean Results Result Diagram: 01/21/1715 01/23/17521 Results 24 hrs Laboratory Tests Test 01/22/17 17:13 01/22/17 21:53 01/23/17 05:22 01/23/17 08:05 Bedside Glucose 118 106 95 Sodium Level 136 Potassium Level 4.1 Chloride Level 106 Carbon Dioxide Level 27 Anion Gap 7 L Blood Urea Nitrogen 14 Creatinine 0.55 Glucose Level 85 Calcium Level 9.0 Test 01/23/17 12:49 Bedside Glucose 128 Medications Medications Current Medications Aspirin (Halfprin) 81 mg DAILY PO Last administered on 01/23/17 09:44; Admin Dose 81 MG; Start 12/27/16 at 09:00 Clopidogrel Bisulfate (plaVIX) 75 mg DAILY PO Last administered on 01/23/17 09 :44; Admin Dose 75 MG; Start 12/27/16 at 09:00 Famotidine (Pepcid) 40 mg HS PO Last administered on 01/22/17 21:55; Admin Dose 40 MG; Start 12/26/16 at 21:00 Folic Acid (Folic Acid) 1 mg DAILY PO Last administered on 01/23/17 09:44; Admin Dose 1 MG; Start 12/27/16 at 09:00 Gabapentin (Neurontin) 100 mg TID PO Last administered on 01/23/17 12:57; Admin Dose 100 MG; Start 12/26/16 at 21:00 Mycophenolate Mofetil (Cellcept) 1,000 mg BID PO Last administered on 09:44; Admin Dose 1,000 MG; Start 12/26/16 at 21:00 Pantoprazole (Protonix Tab) 40 mg DAILY@06 PO Last administered on 01/23/17 05 :51; Admin Dose 40 MG; Start 12/27/16 at 06:00 Diagnostic Test (Pha) (Accu-Chek) 1 ea 02 XX ; Start 12/27/16 at 02:00 Miscellaneous Information 1 ea NOTE XX ; Start 12/26/16 at 14:30 Glucose (Glutose) 15 gm Q15M PRN PO DECREASED GLUCOSE; Start 12/26/16 at 14:30 Glucose (Glutose) 22.5 gm Q15M PRN PO DECREASED GLUCOSE; Start 12/26/16 at 14:30 Dextrose (D50w Syringe) 25 ml Q15M PRN IV DECREASED GLUCOSE; Start 12/26/16 at 14:30 Dextrose (D50w Syringe) 50 ml Q15M PRN IV DECREASED GLUCOSE; Start 12/26/16 at 14:30 Glucagon (Glucagen) 1 mg Q15M PRN IM DECREASED GLUCOSE; Start 12/26/16 at 14:30 Glucose (Glutose) 15 gm Q15M PRN BUCCAL DECREASED GLUCOSE; Start 12/26/16 at 14: 30 Cholecalciferol (Vitamin D) 1,000 unit DAILY PO Last administered on 01/23/17 09:44; Admin Dose 1,000 UNIT; Start 12/28/16 at 09:00 Ondansetron HCl 4 mg 4 mg Q6H PRN IV NAUSEA AND/OR VOMITING Last administered on 01/15/17 09:50; Admin Dose 4 MG; Start 01/01/17 at 10:00 Ertapenem/Sodium Chloride (Invanz/NS) 100 ml @ 200 mls/hr Q24H IVPB Last administered on 01/23/17 15:02; Admin Dose 200 MLS/HR; Start 01/06/17 at 14:30 Haloperidol (Haldol) 2 mg Q4H PRN IM AGITATION/ANXIETY Last administered on 22:46; Admin Dose 2 MG; Start 01/08/17 at 01:30 Acetaminophen (Tylenol Tab) 650 mg Q6H PRN PO PAIN AND OR ELEVATED TEMP Last administered on 01/16/17 10:25; Admin Dose 650 MG; Start 01/08/17 at 22:30 Quetiapine Fumarate (Seroquel) 25 mg QHS PRN PO agitation/hallucinations Last administered on 01/09/17 22:15; Admin Dose 25 MG; Start 01/09/17 at 21:00 Morphine Sulfate (morphine) 2 mg Q8H PRN IV PAIN LEVEL 6-10 Last administered on 01/19/17 16:02; Admin Dose 2 MG; Start 01/11/17 at 14:00 Clonidine (Catapres) 0.1 mg Q6H PRN PO hypertension Last administered on 02:41; Admin Dose 0.1 MG; Start 01/14/17 at 02:30 Hydralazine HCl (Apresoline) 25 mg Q6H PRN IV ELEVATED SYSTOLIC BP Last administered on 01/14/17 07:04; Admin Dose 25 MG; Start 01/14/17 at 07:00 Insulin Glargine (Lantus) 5 unit DAILY@20 SC Last administered on 01/22/17 21: 56; Admin Dose 5 UNIT; Start 01/17/17 at 20:00 Vancomycin HCl (Vancomycin Oral Syringe) 125 mg Q6 PO Last administered on 01/23 12:57; Admin Dose 125 MG; Start 01/17/17 at 18:00 Tacrolimus (Prograf) 2 mg Q12 PO Last administered on 01/23/17 09:44; Admin Dose 2 MG; Start 01/18/17 at 09:00 IV Flush (NS 10 ml) 10 ml PRN PRN IV IV PROTOCOL; Start 01/19/17 at 12:30 Acetaminophen/ Hydrocodone Bitart ([place] (5/325)) 1 tab Q8H PRN PO PAIN Last administered on 01/23/17 10:56; Admin Dose 1 TAB; Start 01/19/17 at 14:30 Benazepril HCl (Lotensin) 10 mg DAILY PO ; Start 01/24/17 at 09:00 Metoprolol Tartrate (Lopressor) 50 mg BID PO ; Start 01/23/17 at 21:00 RAMON KEMP MD Jan 23, 2017 17:04
[2017-01-23 21:49] VITALS: BP 117/66; RESP 18
[2017-01-23] MEDS: FAMOTIDINE 20 MG TAB PO SCH (21:56)
[2017-01-23] MEDS: METOPROLOL 50 MG TAB PO SCH (21:57)
[2017-01-23] MEDS: INSULIN GLARGINE [LANtus] 3 ML PEN SC SCH (21:59)
[2017-01-24] MEDS: ACCU-CHEK XX SCH (01:18)
[2017-01-24 03:17] VITALS: BP 124/63; RESP 18
[2017-01-24] MEDS: PANTOPRAZOLE (EC) 40 MG TAB PO SCH (06:02)
[2017-01-24] MEDS: VANCOMYCIN HCL 250 MG/5ML POSYG PO SCH ×2 (06:02→12:14)
[2017-01-24] MEDS: INSULIN ASPART [NOVOLOG] 3 ML PEN SC SCH ×4 (08:00→20:27)
[2017-01-24] MEDS: MYCOPHENOLATE 250 MG CAP PO SCH ×2 (08:01→20:28)
[2017-01-24] MEDS: TACROLIMUS 1 MG CAP PO SCH ×2 (08:02→20:29)
[2017-01-24] MEDS: CLOPIDOGREL 75 MG TAB PO SCH (08:02)
[2017-01-24] MEDS: GABAPENTIN 100 MG CAP PO SCH ×3 (08:02→20:29)
[2017-01-24] MEDS: FOLIC ACID 1 MG TAB PO SCH (08:02)
[2017-01-24] MEDS: CHOLECALCIFEROL 1,000 UNIT TAB PO SCH (08:02)
[2017-01-24] MEDS: ASPIRIN (EC) 81 MG TAB PO SCH (08:05)
[2017-01-24] MEDS: BENAZEPRIL 10 MG TAB PO SCH (08:06)
[2017-01-24] MEDS: METOPROLOL 50 MG TAB PO SCH ×2 (08:06→20:34)
[2017-01-24 08:19] VITALS: BP 135/63; RESP 18
[2017-01-24] MEDS: HYDROCODONE/APAP (5/325) TAB PO PRN ×2 (12:12→20:28)
--- NOTE | 2017-01-24 12:23 | CONS ---
Date/Time of Note Date/Time of Note DATE: 01/24/17 TIME: 12:22 Assessment/Plan Assessment/Plan Chief Complaint/Hosp Course SUBJECTIVE DATA: No acute events. Patient looks comfortable. No fevers. ANTIMICROBIALS: Invanz and oral vancomycin. OBJECTIVE DATA: GENERAL: Chronically ill-appearing, elderly woman, who is awake, in no distress. HEENT: Head atraumatic, normocephalic. Sclerae anicteric. Buccal mucosa dry. NECK: Supple. CHEST: Rise symmetrical. Breath sounds diminished at the bases. HEART: S1, S2. ABDOMEN: Soft, bowel sounds present. EXTREMITIES: With left above-knee amputation. The right foot dressing intact. ASSESSMENT: 1. Bilateral lower extremities gangrene, status post left above- knee amputation. 2. Severe peripheral arterial disease, failed multiple revascularization procedures. 3. History of kidney transplant, remains on immunosuppressive therapy. 4. Resolved diarrhea, on empiric oral vancomycin. 5. Diabetes. 6. History of xeqxrbri-spyqtrji-tvjz-lactamase urinary tract infection. 7. R foot gangrene with open wound==> cx + E coli ESBL PLAN: Patient remains stable. Will dc abx and observe, repeat cx's prn, f/u vascular rec-s [facility] staff Problems: Consultation Date/Type/Reason Admit Date/Time Dec 26, 2016 at 13:22 Initial Consult Date 12/27/16 Type of Consultation: id Referring Provider: LES GILLILAND Exam/Review of Systems Vital Signs Vitals Vital Signs Date Time Temp Pulse Resp B/P Pulse Ox O2 Delivery O2 Flow Rate FiO2 01/24/17 08:19 98.6 83 18 135/63 98 Intake and Output 01/23/17 01/23/17 01/24/17 15:00 23:00 07:00 Intake Total 700 ml Balance 700 ml Results Result Diagram: 01/21/17 0515 01/23/17 0522 Results 24 hrs Laboratory Tests Test 01/23/17 12:49 01/23/17 18:21 01/23/17 21:35 01/24/17 08:00 Bedside Glucose 128 122 123 82 Test 01/24/17 12:08 Bedside Glucose 129 Medications Medications Current Medications Aspirin (Halfprin) 81 mg DAILY PO Last administered on 01/24/17t 08:05; Admin Dose 81 MG; Start 12/27/16 at 09:00 Clopidogrel Bisulfate (plaVIX) 75 mg DAILY PO Last administered on 01/24/17 08 :02; Admin Dose 75 MG; Start 12/27/16 at 09:00 Famotidine (Pepcid) 40 mg HS PO Last administered on 01/23/17 21:56; Admin Dose 40 MG; Start 12/26/16 at 21:00 Folic Acid (Folic Acid) 1 mg DAILY PO Last administered on 01/24/17 08:02; Admin Dose 1 MG; Start 12/27/16 at 09:00 Gabapentin (Neurontin) 100 mg TID PO Last administered on 01/24/17 12:14; Admin Dose 100 MG; Start 12/26/16 at 21:00 Mycophenolate Mofetil (Cellcept) 1,000 mg BID PO Last administered on 08:01; Admin Dose 1,000 MG; Start 12/26/16 at 21:00 Pantoprazole (Protonix Tab) 40 mg DAILY@06 PO Last administered on 01/24/17 06 :02; Admin Dose 40 MG; Start 12/27/16 at 06:00 Diagnostic Test (Pha) (Accu-Chek) 1 ea 02 XX ; Start 12/27/16 at 02:00 Miscellaneous Information 1 ea NOTE XX ; Start 12/26/16 at 14:30 Glucose (Glutose) 15 gm Q15M PRN PO DECREASED GLUCOSE; Start 12/26/16 at 14:30 Glucose (Glutose) 22.5 gm Q15M PRN PO DECREASED GLUCOSE; Start 12/26/16 at 14:30 Dextrose (D50w Syringe) 25 ml Q15M PRN IV DECREASED GLUCOSE; Start 12/26/16 at 14:30 Dextrose (D50w Syringe) 50 ml Q15M PRN IV DECREASED GLUCOSE; Start 12/26/16 at 14:30 Glucagon (Glucagen) 1 mg Q15M PRN IM DECREASED GLUCOSE; Start 12/26/16 at 14:30 Glucose (Glutose) 15 gm Q15M PRN BUCCAL DECREASED GLUCOSE; Start 12/26/16 at 14: 30 Cholecalciferol (Vitamin D) 1,000 unit DAILY PO Last administered on 01/24/17 08:02; Admin Dose 1,000 UNIT; Start 12/28/16 at 09:00 Ondansetron HCl 4 mg 4 mg Q6H PRN IV NAUSEA AND/OR VOMITING Last administered on 01/15/17 09:50; Admin Dose 4 MG; Start 01/01/17 at 10:00 Ertapenem/Sodium Chloride (Invanz/NS) 100 ml @ 200 mls/hr Q24H IVPB Last administered on 01/23/17 15:02; Admin Dose 200 MLS/HR; Start 01/06/17 at 14:30 Haloperidol (Haldol) 2 mg Q4H PRN IM AGITATION/ANXIETY Last administered on 22:46; Admin Dose 2 MG; Start 01/08/17 at 01:30 Acetaminophen (Tylenol Tab) 650 mg Q6H PRN PO PAIN AND OR ELEVATED TEMP Last administered on 01/16/17 10:25; Admin Dose 650 MG; Start 01/08/17 at 22:30 Quetiapine Fumarate (Seroquel) 25 mg QHS PRN PO agitation/hallucinations Last administered on 01/09/17 22:15; Admin Dose 25 MG; Start 01/09/17 at 21:00 Morphine Sulfate (morphine) 2 mg Q8H PRN IV PAIN LEVEL 6-10 Last administered on 01/19/17 16:02; Admin Dose 2 MG; Start 01/11/17 at 14:00 Clonidine (Catapres) 0.1 mg Q6H PRN PO hypertension Last administered on 02:41; Admin Dose 0.1 MG; Start 01/14/17 at 02:30 Hydralazine HCl (Apresoline) 25 mg Q6H PRN IV ELEVATED SYSTOLIC BP Last administered on 01/14/17 07:04; Admin Dose 25 MG; Start 01/14/17 at 07:00 Insulin Glargine (Lantus) 5 unit DAILY@20 SC Last administered on 01/23/17 21: 59; Admin Dose 5 UNIT; Start 01/17/17 at 20:00 Vancomycin HCl (Vancomycin Oral Syringe) 125 mg Q6 PO Last administered on 01/24 12:14; Admin Dose 125 MG; Start 01/17/17 at 18:00 Tacrolimus (Prograf) 2 mg Q12 PO Last administered on 01/24/17 08:02; Admin Dose 2 MG; Start 01/18/17 at 09:00 IV Flush (NS 10 ml) 10 ml PRN PRN IV IV PROTOCOL; Start 01/19/17 at 12:30 Acetaminophen/ Hydrocodone Bitart ([place] (5/325)) 1 tab Q8H PRN PO PAIN Last administered on 01/24/17 12:12; Admin Dose 1 TAB; Start 01/19/17 at 14:30 Benazepril HCl (Lotensin) 10 mg DAILY PO Last administered on 01/24/17 08:06; Admin Dose 10 MG; Start 01/24/17 at 09:00 Metoprolol Tartrate (Lopressor) 50 mg BID PO Last administered on 01/24/17 08: 06; Admin Dose 50 MG; Start 01/23/17 at 21:00 JACQUES HUERTA NP Jan 24, 2017 12:23
--- NOTE | 2017-01-24 13:20 | PN ---
Date/Time of Note Date/Time of Note DATE: 01/24/17 TIME: 13:19 Assessment/Plan VTE Prophylaxis VTE Prophylaxis Intervention: SCD's Lines/Catheters IV Catheter Type (from Nrs): PICC Line Central line still needed: Yes Urinary Cath still in place: No Assessment/Plan Chief Complaint/Hosp Course Patient looks comfortable complains of bkvw-zd-pebuepuy pain. Continue physical therapy. Assessment/Plan - Acute encephalopathy, resolved. CT brain is negative for any acute pathology. 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 S/p left AKA 01/[address] Valencia, vascular surgery. - Diabetes mellitus type II. Continue Lantus and NovoLog. - History of kidney transplant in 2009, on immunosuppressive therapy. - Hypertension. Continue metoprolol, benazepril. 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 - Anemia of chronic kidney disease. Further recommendations based on clinical course. Plan of care discussed with Dr. Cohen Problems: Exam/Review of Systems Vital Signs Vitals Vital Signs Date Time Temp Pulse Resp B/P Pulse Ox O2 Delivery O2 Flow Rate FiO2 01/24/17 08:19 98.6 83 18 135/63 98 Intake and Output 01/23/17 01/23/17 01/24/17 15:00 23:00 07:00 Intake Total 700 ml Balance 700 ml Exam Constitutional: awake, alert Neck: supple Respiratory: clear to auscultation Cardiovascular: nl pulses Gastrointestinal: non-tender, soft Extremities: other (S/p LAKA) Results Result Diagram: 01/21/17 0515 01/23/17 0522 Results 24 hrs Laboratory Tests Test 01/23/17 18:21 01/23/17 21:35 01/24/17 08:00 01/24/17 12:08 Bedside Glucose 122 123 82 129 Medications Medications Current Medications Aspirin (Halfprin) 81 mg DAILY PO Last administered on 01/24/17 08:05; Admin Dose 81 MG; Start 12/27/16 at 09:00 Clopidogrel Bisulfate (plaVIX) 75 mg DAILY PO Last administered on 01/24/17 08 :02; Admin Dose 75 MG; Start 12/27/16 at 09:00 Famotidine (Pepcid) 40 mg HS PO Last administered on 01/23/17 21:56; Admin Dose 40 MG; Start 12/26/16 at 21:00 Folic Acid (Folic Acid) 1 mg DAILY PO Last administered on 01/24/17 08:02; Admin Dose 1 MG; Start 12/27/16 at 09:00 Gabapentin (Neurontin) 100 mg TID PO Last administered on 01/24/17 12:14; Admin Dose 100 MG; Start 12/26/16 at 21:00 Mycophenolate Mofetil (Cellcept) 1,000 mg BID PO Last administered on 08:01; Admin Dose 1,000 MG; Start 12/26/16 at 21:00 Pantoprazole (Protonix Tab) 40 mg DAILY@06 PO Last administered on 01/24/17 06 :02; Admin Dose 40 MG; Start 12/27/16 at 06:00 Diagnostic Test (Pha) (Accu-Chek) 1 ea 02 XX ; Start 12/27/16 at 02:00 Miscellaneous Information 1 ea NOTE XX ; Start 12/26/16 at 14:30 Glucose (Glutose) 15 gm Q15M PRN PO DECREASED GLUCOSE; Start 12/26/16 at 14:30 Glucose (Glutose) 22.5 gm Q15M PRN PO DECREASED GLUCOSE; Start 12/26/16 at 14:30 Dextrose (D50w Syringe) 25 ml Q15M PRN IV DECREASED GLUCOSE; Start 12/26/16 at 14:30 Dextrose (D50w Syringe) 50 ml Q15M PRN IV DECREASED GLUCOSE; Start 12/26/16 at 14:30 Glucagon (Glucagen) 1 mg Q15M PRN IM DECREASED GLUCOSE; Start 12/26/16 at 14:30 Glucose (Glutose) 15 gm Q15M PRN BUCCAL DECREASED GLUCOSE; Start 12/26/16 at 14: 30 Cholecalciferol (Vitamin D) 1,000 unit DAILY PO Last administered on 01/24/17 08:02; Admin Dose 1,000 UNIT; Start 12/28/16 at 09:00 Ondansetron HCl (Zofran Inj) 4 mg Q6H PRN IV NAUSEA AND/OR VOMITING Last administered on 01/15/17 09:50; Admin Dose 4 MG; Start 01/01/17 at 10:00 Haloperidol (Haldol) 2 mg Q4H PRN IM AGITATION/ANXIETY Last administered on 22:46; Admin Dose 2 MG; Start 01/08/17 at 01:30 Acetaminophen (Tylenol Tab) 650 mg Q6H PRN PO PAIN AND OR ELEVATED TEMP Last administered on 01/16/17 10:25; Admin Dose 650 MG; Start 01/08/17 at 22:30 Quetiapine Fumarate (Seroquel) 25 mg QHS PRN PO agitation/hallucinations Last administered on 01/09/17 22:15; Admin Dose 25 MG; Start 01/09/17 at 21:00 Morphine Sulfate (morphine) 2 mg Q8H PRN IV PAIN LEVEL 6-10 Last administered on 01/19/17 16:02; Admin Dose 2 MG; Start 01/11/17 at 14:00 Clonidine (Catapres) 0.1 mg Q6H PRN PO hypertension Last administered on 02:41; Admin Dose 0.1 MG; Start 01/14/17 at 02:30 Hydralazine HCl (Apresoline) 25 mg Q6H PRN IV ELEVATED SYSTOLIC BP Last administered on 01/14/17 07:04; Admin Dose 25 MG; Start 01/14/17 at 07:00 Insulin Glargine (Lantus) 5 unit DAILY@20 SC Last administered on 01/23/17 21: 59; Admin Dose 5 UNIT; Start 01/17/17 at 20:00 Tacrolimus (Prograf) 2 mg Q12 PO Last administered on 01/24/17 08:02; Admin Dose 2 MG; Start 01/18/17 at 09:00 IV Flush (NS 10 ml) 10 ml PRN PRN IV IV PROTOCOL; Start 01/19/17 at 12:30 Acetaminophen/ Hydrocodone Bitart ([place] (5/325)) 1 tab Q8H PRN PO PAIN Last administered on 01/24/17 12:12; Admin Dose 1 TAB; Start 01/19/17 at 14:30 Benazepril HCl (Lotensin) 10 mg DAILY PO Last administered on 01/24/17 08:06; Admin Dose 10 MG; Start 01/24/17 at 09:00 Metoprolol Tartrate (Lopressor) 50 mg BID PO Last administered on 10/6/17at 08: 06; Admin Dose 50 MG; Start 01/23/17 at 21:00 LES GILLILAND Jan 24, 2017 13:20
[2017-01-24 15:09] VITALS: BP 108/62; RESP 18
--- NOTE | 2017-01-24 15:51 | CONS ---
Date/Time of Note Date/Time of Note DATE: 01/24/17 TIME: 15:51 Assessment/Plan Assessment/Plan Additional Assessment/Plan 1. 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 h/o donor kidney transplant in 2009 at [facility], currently on immunosuppression with Prograf, CellCept 4. 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 History of hypertension. 6. History of diabetes mellitus. 7. History of previous left upper extremity arteriovenous fistula. 8. Hyponatremia due to hypovolemic hyponatremia post op 9. -CT chest+ abd+pelvis with and without contrast negative for mass/LAD/ Malignancy Plan: continue Current immunosuppression Prograf and cellcept, Cr normal, s/p Left AKA- Post op care as per surgery Cr and Elecfrolyes stable today IV abx as per ID- pt is on IV invanz now will follow up Consultation Date/Type/Reason Admit Date/Time Dec 26, 2016 at 13:22 Initial Consult Date 12/27/16 Type of Consultation: NEPHROLOGY Referring Provider: LES GILLILAND Exam/Review of Systems Vital Signs Vitals Vital Signs Date Time Temp Pulse Resp B/P Pulse Ox O2 Delivery O2 Flow Rate FiO2 01/24/17 15:09 97.5 75 18 108/62 97 Intake and Output 01/23/17 01/23/17 01/24/17 15:00 23:00 07:00 Intake Total 700 ml Balance 700 ml Exam GEN: fragile elderly woman who is awake in no distress. HEENT: Head atraumatic, normocephalic. Sclerae anicteric. NECK: Supple. CHEST: Rise symmetrical. Breath sounds clear. HEART: S1, S2. ABDOMEN: Soft, bowel sounds present. left BKA dressing clean Results Result Diagram: 01/21/17 0515 01/23/17 0522 Results 24 hrs Laboratory Tests Test 01/23/17 18:21 01/23/17 21:35 01/24/17 08:00 01/24/17 12:08 Bedside Glucose 122 123 82 129 Medications Medications Current Medications Aspirin (Halfprin) 81 mg DAILY PO Last administered on 01/24/17t 08:05; Admin Dose 81 MG; Start 12/27/16 at 09:00 Clopidogrel Bisulfate (plaVIX) 75 mg DAILY PO Last administered on 01/24/17 08 :02; Admin Dose 75 MG; Start 12/27/16 at 09:00 Famotidine (Pepcid) 40 mg HS PO Last administered on 01/23/17 21:56; Admin Dose 40 MG; Start 12/26/16 at 21:00 Folic Acid (Folic Acid) 1 mg DAILY PO Last administered on 01/24/17 08:02; Admin Dose 1 MG; Start 12/27/16 at 09:00 Gabapentin (Neurontin) 100 mg TID PO Last administered on 01/24/17 12:14; Admin Dose 100 MG; Start 12/26/16 at 21:00 Mycophenolate Mofetil (Cellcept) 1,000 mg BID PO Last administered on 08:01; Admin Dose 1,000 MG; Start 12/26/16 at 21:00 Pantoprazole (Protonix Tab) 40 mg DAILY@06 PO Last administered on 01/24/17 06 :02; Admin Dose 40 MG; Start 12/27/16 at 06:00 Diagnostic Test (Pha) (Accu-Chek) 1 ea 02 XX ; Start 12/27/16 at 02:00 Miscellaneous Information 1 ea NOTE XX ; Start 12/26/16 at 14:30 Glucose (Glutose) 15 gm Q15M PRN PO DECREASED GLUCOSE; Start 12/26/16 at 14:30 Glucose (Glutose) 22.5 gm Q15M PRN PO DECREASED GLUCOSE; Start 12/26/16 at 14:30 Dextrose (D50w Syringe) 25 ml Q15M PRN IV DECREASED GLUCOSE; Start 12/26/16 at 14:30 Dextrose (D50w Syringe) 50 ml Q15M PRN IV DECREASED GLUCOSE; Start 12/26/16 at 14:30 Glucagon (Glucagen) 1 mg Q15M PRN IM DECREASED GLUCOSE; Start 12/26/16 at 14:30 Glucose (Glutose) 15 gm Q15M PRN BUCCAL DECREASED GLUCOSE; Start 12/26/16 at 14: 30 Cholecalciferol (Vitamin D) 1,000 unit DAILY PO Last administered on 01/24/17 08:02; Admin Dose 1,000 UNIT; Start 12/28/16 at 09:00 Ondansetron HCl (Zofran Inj) 4 mg Q6H PRN IV NAUSEA AND/OR VOMITING Last administered on 01/15/17 09:50; Admin Dose 4 MG; Start 01/01/17 at 10:00 Haloperidol (Haldol) 2 mg Q4H PRN IM AGITATION/ANXIETY Last administered on 22:46; Admin Dose 2 MG; Start 01/08/17 at 01:30 Acetaminophen (Tylenol Tab) 650 mg Q6H PRN PO PAIN AND OR ELEVATED TEMP Last administered on 01/16/17 10:25; Admin Dose 650 MG; Start 01/08/17 at 22:30 Quetiapine Fumarate (Seroquel) 25 mg QHS PRN PO agitation/hallucinations Last administered on 01/09/17 22:15; Admin Dose 25 MG; Start 01/09/17 at 21:00 Morphine Sulfate (morphine) 2 mg Q8H PRN IV PAIN LEVEL 6-10 Last administered on 01/19/17 16:02; Admin Dose 2 MG; Start 01/11/17 at 14:00 Clonidine (Catapres) 0.1 mg Q6H PRN PO hypertension Last administered on 02:41; Admin Dose 0.1 MG; Start 01/14/17 at 02:30 Hydralazine HCl (Apresoline) 25 mg Q6H PRN IV ELEVATED SYSTOLIC BP Last administered on 01/14/17 07:04; Admin Dose 25 MG; Start 01/14/17 at 07:00 Insulin Glargine (Lantus) 5 unit DAILY@20 SC Last administered on 01/23/17 21: 59; Admin Dose 5 UNIT; Start 01/17/17 at 20:00 Tacrolimus (Prograf) 2 mg Q12 PO Last administered on 01/24/17 08:02; Admin Dose 2 MG; Start 01/18/17 at 09:00 IV Flush (NS 10 ml) 10 ml PRN PRN IV IV PROTOCOL; Start 01/19/17 at 12:30 Acetaminophen/ Hydrocodone Bitart ([place] (5/325)) 1 tab Q8H PRN PO PAIN Last administered on 01/24/17 12:12; Admin Dose 1 TAB; Start 10/1/17 at 14:30 Benazepril HCl (Lotensin) 10 mg DAILY PO Last administered on 01/24/17 08:06; Admin Dose 10 MG; Start 01/24/17 at 09:00 Metoprolol Tartrate (Lopressor) 50 mg BID PO Last administered on 01/24/17 08: 06; Admin Dose 50 MG; Start 01/23/17 at 21:00 RAMON KEMP MD Jan 24, 2017 15:51
--- NOTE | 2017-01-24 18:06 | CONS ---
Date/Time of Note Date/Time of Note DATE: 01/24/17 TIME: 18:04 Assessment/Plan Assessment/Plan Chief Complaint/Hosp Course IMP: 1.Jgx-vm-znabel test 10/2016 with no ischemia/only scar/NL EF. Negative trop x 3. 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 Encephalopathy Recc: -Continuer asa/plavix -Cointinue benazepril/BB at current doses and follow BP closely -Local wound care -Continue abx's and f/u cx data -Continue immuonosuppresives Problems: Consultation Date/Type/Reason Admit Date/Time Dec 26, 2016 at 13:22 Initial Consult Date 12/27/16 Type of Consultation: cardiology Reason for Consultation HTN Referring Provider: LES GILLILAND Exam/Review of Systems Vital Signs Vitals Vital Signs Date Time Temp Pulse Resp B/P Pulse Ox O2 Delivery O2 Flow Rate FiO2 01/24/17 15:09 97.5 75 18 108/62 97 Intake and Output 01/23/17 01/23/17 01/24/17 15:00 23:00 07:00 Intake Total 700 ml Balance 700 ml Exam Review of Systems: CONSTITUTIONAL: No fevers, chills. PULMONARY: No sob CARDIOVASCULAR: No chest pain/palpitations GASTROINTESTINAL: No nausea/vomiting. GENITOURINARY: No hematuria/dysuria. MUSCULOSKELETAL: pain in foot PSYCHIATRIC: The patient denies depression. NEUROLOGIC: No weakness Constitutional: alert, oriented Psych: no complaints Head: normocephalic ENMT: mucosa pink and moist Neck: jvd (8 cm water), supple Respiratory: diminished breath sounds (at bases/B) Cardiovascular: regular rate and rhythm Gastrointestinal: non-tender, soft Musculoskeletal: muscle weakness (mild generalized) Extremities: edema (none) Neurological: other (No focal deficits) Results Result Diagram: 01/21/17 0515 01/23/17 0522 Results 24 hrs Laboratory Tests Test 01/23/17 18:21 01/23/17 21:35 01/24/17 08:00 01/24/17 12:08 Bedside Glucose 122 123 82 129 Test 01/24/17 17:21 Bedside Glucose 126 Medications Medications Current Medications Aspirin (Halfprin) 81 mg DAILY PO Last administered on 01/24/17 08:05; Admin Dose 81 MG; Start 12/27/16 at 09:00 Clopidogrel Bisulfate (plaVIX) 75 mg DAILY PO Last administered on 01/24/17 08 :02; Admin Dose 75 MG; Start 12/27/16 at 09:00 Famotidine (Pepcid) 40 mg HS PO Last administered on 01/23/17 21:56; Admin Dose 40 MG; Start 12/26/16 at 21:00 Folic Acid (Folic Acid) 1 mg DAILY PO Last administered on 01/24/17 08:02; Admin Dose 1 MG; Start 12/27/16 at 09:00 Gabapentin (Neurontin) 100 mg TID PO Last administered on 01/24/17 12:14; Admin Dose 100 MG; Start 12/26/16 at 21:00 Mycophenolate Mofetil (Cellcept) 1,000 mg BID PO Last administered on 08:01; Admin Dose 1,000 MG; Start 12/26/16 at 21:00 Pantoprazole (Protonix Tab) 40 mg DAILY@06 PO Last administered on 01/24/17 06 :02; Admin Dose 40 MG; Start 12/27/16 at 06:00 Diagnostic Test (Pha) (Accu-Chek) 1 ea 02 XX ; Start 12/27/16 at 02:00 Miscellaneous Information 1 ea NOTE XX ; Start 12/26/16 at 14:30 Glucose (Glutose) 15 gm Q15M PRN PO DECREASED GLUCOSE; Start 12/26/16 at 14:30 Glucose (Glutose) 22.5 gm Q15M PRN PO DECREASED GLUCOSE; Start 12/26/16 at 14:30 Dextrose (D50w Syringe) 25 ml Q15M PRN IV DECREASED GLUCOSE; Start 12/26/16 at 14:30 Dextrose (D50w Syringe) 50 ml Q15M PRN IV DECREASED GLUCOSE; Start 12/26/16 at 14:30 Glucagon (Glucagen) 1 mg Q15M PRN IM DECREASED GLUCOSE; Start 12/26/16 at 14:30 Glucose (Glutose) 15 gm Q15M PRN BUCCAL DECREASED GLUCOSE; Start 12/26/16 at 14: 30 Cholecalciferol (Vitamin D) 1,000 unit DAILY PO Last administered on 01/24/17 08:02; Admin Dose 1,000 UNIT; Start 12/28/16 at 09:00 Ondansetron HCl (Zofran Inj) 4 mg Q6H PRN IV NAUSEA AND/OR VOMITING Last administered on 01/15/17 09:50; Admin Dose 4 MG; Start 01/01/17 at 10:00 Haloperidol (Haldol) 2 mg Q4H PRN IM AGITATION/ANXIETY Last administered on 22:46; Admin Dose 2 MG; Start 01/08/17 at 01:30 Acetaminophen (Tylenol Tab) 650 mg Q6H PRN PO PAIN AND OR ELEVATED TEMP Last administered on 01/16/17 10:25; Admin Dose 650 MG; Start 01/08/17 at 22:30 Quetiapine Fumarate (Seroquel) 25 mg QHS PRN PO agitation/hallucinations Last administered on 01/09/17 22:15; Admin Dose 25 MG; Start 01/09/17 at 21:00 Morphine Sulfate (morphine) 2 mg Q8H PRN IV PAIN LEVEL 6-10 Last administered on 01/19/17 16:02; Admin Dose 2 MG; Start 01/11/17 at 14:00 Clonidine (Catapres) 0.1 mg Q6H PRN PO hypertension Last administered on 02:41; Admin Dose 0.1 MG; Start 01/14/17 at 02:30 Hydralazine HCl (Apresoline) 25 mg Q6H PRN IV ELEVATED SYSTOLIC BP Last administered on 01/14/17 07:04; Admin Dose 25 MG; Start 01/14/17 at 07:00 Insulin Glargine (Lantus) 5 unit DAILY@20 SC Last administered on 01/23/17 21: 59; Admin Dose 5 UNIT; Start 01/17/17 at 20:00 Tacrolimus (Prograf) 2 mg Q12 PO Last administered on 01/24/17 08:02; Admin Dose 2 MG; Start 01/18/17 at 09:00 IV Flush (NS 10 ml) 10 ml PRN PRN IV IV PROTOCOL; Start 01/19/17 at 12:30 Acetaminophen/ Hydrocodone Bitart ([place] (5/325)) 1 tab Q8H PRN PO PAIN Last administered on 01/24/17 12:12; Admin Dose 1 TAB; Start 01/19/17 at 14:30 Benazepril HCl (Lotensin) 10 mg DAILY PO Last administered on 01/24/17 08:06; Admin Dose 10 MG; Start 01/24/17 at 09:00 Metoprolol Tartrate (Lopressor) 50 mg BID PO Last administered on 01/24/17 08: 06; Admin Dose 50 MG; Start 01/23/17 at 21:00 TIMOTHY CORTES Jan 24, 2017 18:06
[2017-01-24 20:00] VITALS: BP 168/77; RESP 19
[2017-01-24] MEDS: FAMOTIDINE 20 MG TAB PO SCH (20:29)
[2017-01-24] MEDS: INSULIN GLARGINE [LANtus] 3 ML PEN SC SCH (20:32)
[2017-01-25] MEDS: ACCU-CHEK XX SCH (01:19)
[2017-01-25 02:00] VITALS: BP 136/64; RESP 19
[2017-01-25] MEDS: PANTOPRAZOLE (EC) 40 MG TAB PO SCH (06:03)
[2017-01-25 08:00] VITALS: BP 130/66; RESP 18
[2017-01-25] MEDS: INSULIN ASPART [NOVOLOG] 3 ML PEN SC SCH ×4 (08:00→20:19)
[2017-01-25] MEDS: ASPIRIN (EC) 81 MG TAB PO SCH (08:23)
[2017-01-25] MEDS: MYCOPHENOLATE 250 MG CAP PO SCH ×2 (08:23→20:21)
[2017-01-25] MEDS: GABAPENTIN 100 MG CAP PO SCH ×3 (08:23→20:20)
[2017-01-25] MEDS: CLOPIDOGREL 75 MG TAB PO SCH (08:23)
[2017-01-25] MEDS: CHOLECALCIFEROL 1,000 UNIT TAB PO SCH (08:23)
[2017-01-25] MEDS: TACROLIMUS 1 MG CAP PO SCH ×2 (08:23→20:21)
[2017-01-25] MEDS: FOLIC ACID 1 MG TAB PO SCH (08:24)
[2017-01-25] MEDS: BENAZEPRIL 10 MG TAB PO SCH (09:19)
[2017-01-25] MEDS: METOPROLOL 50 MG TAB PO SCH ×2 (09:20→20:21)
--- NOTE | 2017-01-25 11:14 | PN ---
Date/Time of Note Date/Time of Note DATE: 01/25/17 TIME: 11:09 Assessment/Plan VTE Prophylaxis VTE Prophylaxis Intervention: other Lines/Catheters IV [facility] ([facility] PICC Line Urinary Cath still in place: No Assessment/Plan Assessment/Plan - Acute encephalopathy, resolved. CT brain is negative for any acute pathology. - a/o x1 - Bilateral lower extremities gangrene secondary to severe peripheral arterial disease, failed debridement and multiple revascularization procedures. S/p left AKA 01/[address] Valencia, vascular surgery. - stump with art. no s/s of infection, DDi - Diabetes mellitus type II. Continue Lantus and NovoLog. - History of kidney transplant in 2009, on immunosuppressive therapy. - Hypertension. Continue metoprolol, benazepril. 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 - Anemia of chronic kidney disease. Further recommendations based on clinical course. Plan of care discussed with Dr. Cohen Subjective 24 Hr Interval Summary Free Text/Dictation awake, alert,, seems comfortable, vss, no electrolytes result today, dw staff- no new events reported. Respiratory: no complaints Cardiovascular: no complaints Gastrointestinal: no complaints Genitourinary: no complaints Musculoskeletal: bone/joint pain (LLE stump pain) Exam/Review of Systems Vital Signs Vitals Vital Signs Date Time Temp Pulse Resp B/P Pulse Ox O2 Delivery O2 Flow Rate FiO2 01/25/17 08:00 98.4 79 18 130/66 99 Intake and Output 01/24/17 01/24/17 01/25/17 15:00 23:00 07:00 Intake Total 640 ml 580 ml Balance 640 ml 580 ml Exam Constitutional: alert Cardiovascular: nl pulses, regular rate and rhythm Gastrointestinal: non-tender, soft Musculoskeletal: other (sp left AKA- stump dressing noted- DDI) Extremities: normal pulses Neurological: nl speech, other (oriented to name, follows simple commands.) Results Result Diagram: 01/21/17 0515 01/23/17 0522 Results 24 hrs Laboratory Tests Test 01/24/17 12:08 01/24/17 17:21 01/24/17 20:25 01/25/17 08:21 Bedside Glucose 129 126 130 95 Medications Medications Current Medications Aspirin (Halfprin) 81 mg DAILY PO Last administered on 01/25/17t 08:23; Admin Dose 81 MG; Start 12/27/16 at 09:00 Clopidogrel Bisulfate (plaVIX) 75 mg DAILY PO Last administered on 01/25/17 08 :23; Admin Dose 75 MG; Start 12/27/16 at 09:00 Famotidine (Pepcid) 40 mg HS PO Last administered on 01/24/17 20:29; Admin Dose 40 MG; Start 12/26/16 at 21:00 Folic Acid (Folic Acid) 1 mg DAILY PO Last administered on 01/25/17 08:24; Admin Dose 1 MG; Start 12/27/16 at 09:00 Gabapentin (Neurontin) 100 mg TID PO Last administered on 01/25/17 08:23; Admin Dose 100 MG; Start 12/26/16 at 21:00 Mycophenolate Mofetil (Cellcept) 1,000 mg BID PO Last administered on 08:23; Admin Dose 1,000 MG; Start 12/26/16 at 21:00 Pantoprazole (Protonix Tab) 40 mg DAILY@06 PO Last administered on 01/25/17 06 :03; Admin Dose 40 MG; Start 12/27/16 at 06:00 Diagnostic Test (Pha) (Accu-Chek) 1 ea 02 XX ; Start 12/27/16 at 02:00 Miscellaneous Information 1 ea NOTE XX ; Start 12/26/16 at 14:30 Glucose (Glutose) 15 gm Q15M PRN PO DECREASED GLUCOSE; Start 12/26/16 at 14:30 Glucose (Glutose) 22.5 gm Q15M PRN PO DECREASED GLUCOSE; Start 12/26/16 at 14:30 Dextrose (D50w Syringe) 25 ml Q15M PRN IV DECREASED GLUCOSE; Start 12/26/16 at 14:30 Dextrose (D50w Syringe) 50 ml Q15M PRN IV DECREASED GLUCOSE; Start 12/26/16 at 14:30 Glucagon (Glucagen) 1 mg Q15M PRN IM DECREASED GLUCOSE; Start 12/26/16 at 14:30 Glucose (Glutose) 15 gm Q15M PRN BUCCAL DECREASED GLUCOSE; Start 12/26/16 at 14: 30 Cholecalciferol (Vitamin D) 1,000 unit DAILY PO Last administered on 01/25/17 08:23; Admin Dose 1,000 UNIT; Start 12/28/16 at 09:00 Ondansetron HCl (Zofran Inj) 4 mg Q6H PRN IV NAUSEA AND/OR VOMITING Last administered on 01/15/17 09:50; Admin Dose 4 MG; Start 01/01/17 at 10:00 Haloperidol (Haldol) 2 mg Q4H PRN IM AGITATION/ANXIETY Last administered on 22:46; Admin Dose 2 MG; Start 01/08/17 at 01:30 Acetaminophen (Tylenol Tab) 650 mg Q6H PRN PO PAIN AND OR ELEVATED TEMP Last administered on 01/16/17 10:25; Admin Dose 650 MG; Start 01/08/17 at 22:30 Quetiapine Fumarate (Seroquel) 25 mg QHS PRN PO agitation/hallucinations Last administered on 01/09/17 22:15; Admin Dose 25 MG; Start 01/09/17 at 21:00 Morphine Sulfate (morphine) 2 mg Q8H PRN IV PAIN LEVEL 6-10 Last administered on 01/19/17 16:02; Admin Dose 2 MG; Start 01/11/17 at 14:00 Clonidine (Catapres) 0.1 mg Q6H PRN PO hypertension Last administered on 02:41; Admin Dose 0.1 MG; Start 01/14/17 at 02:30 Hydralazine HCl (Apresoline) 25 mg Q6H PRN IV ELEVATED SYSTOLIC BP Last administered on 01/14/17 07:04; Admin Dose 25 MG; Start 01/14/17 at 07:00 Insulin Glargine (Lantus) 5 unit DAILY@20 SC Last administered on 01/24/17 20: 32; Admin Dose 5 UNIT; Start 01/17/17 at 20:00 Tacrolimus (Prograf) 2 mg Q12 PO Last administered on 01/25/17 08:23; Admin Dose 2 MG; Start 01/18/17 at 09:00 IV Flush (NS 10 ml) 10 ml PRN PRN IV IV PROTOCOL; Start 01/19/17 at 12:30 Acetaminophen/ Hydrocodone Bitart ([place] (5/325)) 1 tab Q8H PRN PO PAIN Last administered on 01/24/17 20:28; Admin Dose 1 TAB; Start 01/19/17 at 14:30 Benazepril HCl (Lotensin) 10 mg DAILY PO Last administered on 01/25/17 09:19; Admin Dose 10 MG; Start 01/24/17 at 09:00 Metoprolol Tartrate (Lopressor) 50 mg BID PO Last administered on 01/25/17 09: 20; Admin Dose 50 MG; Start 01/23/17 at 21:00 TIM BENNETT Jan 25, 2017 11:14
[2017-01-25 14:00] VITALS: BP 150/73; RESP 20
--- NOTE | 2017-01-25 15:01 | CONS ---
Date/Time of Note Date/Time of Note DATE: 01/25/17 TIME: 14:59 Assessment/Plan Assessment/Plan Additional Assessment/Plan 1. 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 h/o donor kidney transplant in 2009 at [facility], currently on immunosuppression with Prograf, CellCept 4. 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 History of hypertension. 6. History of diabetes mellitus. 7. History of previous left upper extremity arteriovenous fistula. 8. Hyponatremia due to hypovolemic hyponatremia post op 9. -CT chest+ abd+pelvis with and without contrast negative for mass/LAD/ Malignancy Plan: continue Current immunosuppression Prograf and cellcept, Cr normal on last labs , no labs today to review will check next labs on Friday s/p Left AKA, off IV abx now, continue lotensin for now Cr and Elecfrolyes stable as per Last labs. ID following will follow up Consultation Date/Type/Reason Admit Date/Time Dec 26, 2016 at 13:22 Initial Consult Date 12/27/16 Type of Consultation: NEPHROLOGY Referring Provider: LES GILLILAND Exam/Review of Systems Vital Signs Vitals Vital Signs Date Time Temp Pulse Resp B/P Pulse Ox O2 Delivery O2 Flow Rate FiO2 01/25/17 08:00 98.4 79 18 130/66 99 Intake and Output 01/24/17 01/24/17 01/25/17 15:00 23:00 07:00 Intake Total 640 ml 580 ml Balance 640 ml 580 ml Exam GEN: fragile elderly woman who is awake in no distress. HEENT: Head atraumatic, normocephalic. Sclerae anicteric. NECK: Supple. CHEST: Rise symmetrical. Breath sounds clear. HEART: S1, S2. ABDOMEN: Soft, bowel sounds present. left BKA dressing clean Results Result Diagram: 01/21/17 0515 01/23/17 0522 Results 24 hrs Laboratory Tests Test 01/24/17 17:21 01/24/17 20:25 01/25/17 08:21 01/25/17 12:17 Bedside Glucose 126 130 95 182 Medications Medications Current Medications Aspirin (Halfprin) 81 mg DAILY PO Last administered on 01/25/17 08:23; Admin Dose 81 MG; Start 12/27/16 at 09:00 Clopidogrel Bisulfate (plaVIX) 75 mg DAILY PO Last administered on 01/25/17 08 :23; Admin Dose 75 MG; Start 12/27/16 at 09:00 Famotidine (Pepcid) 40 mg HS PO Last administered on 01/24/17 20:29; Admin Dose 40 MG; Start 12/26/16 at 21:00 Folic Acid (Folic Acid) 1 mg DAILY PO Last administered on 01/25/17 08:24; Admin Dose 1 MG; Start 12/27/16 at 09:00 Gabapentin (Neurontin) 100 mg TID PO Last administered on 01/25/17 12:21; Admin Dose 100 MG; Start 12/26/16 at 21:00 Mycophenolate Mofetil (Cellcept) 1,000 mg BID PO Last administered on 08:23; Admin Dose 1,000 MG; Start 12/26/16 at 21:00 Pantoprazole (Protonix Tab) 40 mg DAILY@06 PO Last administered on 01/25/17 06 :03; Admin Dose 40 MG; Start 12/27/16 at 06:00 Diagnostic Test (Pha) (Accu-Chek) 1 ea 02 XX ; Start 12/27/16 at 02:00 Miscellaneous Information 1 ea NOTE XX ; Start 12/26/16 at 14:30 Glucose (Glutose) 15 gm Q15M PRN PO DECREASED GLUCOSE; Start 12/26/16 at 14:30 Glucose (Glutose) 22.5 gm Q15M PRN PO DECREASED GLUCOSE; Start 12/26/16 at 14:30 Dextrose (D50w Syringe) 25 ml Q15M PRN IV DECREASED GLUCOSE; Start 12/26/16 at 14:30 Dextrose (D50w Syringe) 50 ml Q15M PRN IV DECREASED GLUCOSE; Start 12/26/16 at 14:30 Glucagon (Glucagen) 1 mg Q15M PRN IM DECREASED GLUCOSE; Start 12/26/16 at 14:30 Glucose (Glutose) 15 gm Q15M PRN BUCCAL DECREASED GLUCOSE; Start 12/26/16 at 14: 30 Cholecalciferol (Vitamin D) 1,000 unit DAILY PO Last administered on 01/25/17 08:23; Admin Dose 1,000 UNIT; Start 12/28/16 at 09:00 Ondansetron HCl (Zofran Inj) 4 mg Q6H PRN IV NAUSEA AND/OR VOMITING Last administered on 01/15/17 09:50; Admin Dose 4 MG; Start 01/01/17 at 10:00 Haloperidol (Haldol) 2 mg Q4H PRN IM AGITATION/ANXIETY Last administered on 22:46; Admin Dose 2 MG; Start 01/08/17 at 01:30 Acetaminophen (Tylenol Tab) 650 mg Q6H PRN PO PAIN AND OR ELEVATED TEMP Last administered on 01/16/17 10:25; Admin Dose 650 MG; Start 01/08/17 at 22:30 Quetiapine Fumarate (Seroquel) 25 mg QHS PRN PO agitation/hallucinations Last administered on 01/09/17 22:15; Admin Dose 25 MG; Start 01/09/17 at 21:00 Morphine Sulfate (morphine) 2 mg Q8H PRN IV PAIN LEVEL 6-10 Last administered on 01/19/17 16:02; Admin Dose 2 MG; Start 01/11/17 at 14:00 Clonidine (Catapres) 0.1 mg Q6H PRN PO hypertension Last administered on 02:41; Admin Dose 0.1 MG; Start 01/14/17 at 02:30 Hydralazine HCl (Apresoline) 25 mg Q6H PRN IV ELEVATED SYSTOLIC BP Last administered on 01/14/17 07:04; Admin Dose 25 MG; Start 01/14/17 at 07:00 Insulin Glargine (Lantus) 5 unit DAILY@20 SC Last administered on 01/24/17 20: 32; Admin Dose 5 UNIT; Start 01/17/17 at 20:00 Tacrolimus (Prograf) 2 mg Q12 PO Last administered on 01/25/17 08:23; Admin Dose 2 MG; Start 01/18/17 at 09:00 IV Flush (NS 10 ml) 10 ml PRN PRN IV IV PROTOCOL; Start 01/19/17 at 12:30 Acetaminophen/ Hydrocodone Bitart ([place] (5/325)) 1 tab Q8H PRN PO PAIN Last administered on 01/24/17 20:28; Admin Dose 1 TAB; Start 01/19/17 at 14:30 Benazepril HCl (Lotensin) 10 mg DAILY PO Last administered on 01/25/17 09:19; Admin Dose 10 MG; Start 01/24/17 at 09:00 Metoprolol Tartrate (Lopressor) 50 mg BID PO Last administered on 01/25/17 09: 20; Admin Dose 50 MG; Start 01/23/17 at 21:00 RAMON KEMP MD Jan 25, 2017 15:01
--- NOTE | 2017-01-25 15:37 | CONS ---
Date/Time of Note Date/Time of Note DATE: 01/25/17 TIME: 15:32 Assessment/Plan Assessment/Plan Additional Assessment/Plan PAD with Bilateral LE gangrene, s/p amputation,s/p debridement and revascularization with s/p Left AKA HTN DM Anemia s/p kidney transplant Continuer ASA and Plavix Continue Metoprolol and benazepril Continue CellCept and Tacrolimus Continue antibiotics Continue GI and DVT Prophylaxis Wound care as scheduled Consultation Date/Type/Reason Admit Date/Time Dec 26, 2016 at 13:22 Constitutional: requiring IVF Eyes: no complaints ENT: no complaints Respiratory: no complaints Cardiovascular: no complaints Gastrointestinal: no complaints Genitourinary: no complaints Musculoskeletal: bone/joint pain (LLE stump pain) Skin: no complaints Neurologic: no complaints Endocrine: no complaints Lymphatic: no complaints Psychological: no complaints Immunologic: no complaints Past Medical History Medical History: diabetes, high cholesterol, hypertension, other (Peripheral vascular disease ) Past Surgical History Past Surgical Hx: other (H/o LE angiogram, H/o LE debridement, H/o previosu AVF for HD access ) Social History Alcohol Use: none Smoking Status: Never smoker Drug Use: none Exam/Review of Systems Vital Signs Vitals Vital Signs Date Time Temp Pulse Resp B/P Pulse Ox O2 Delivery O2 Flow Rate FiO2 01/25/17 08:00 98.4 79 18 130/66 99 Intake and Output 01/24/17 01/24/17 01/25/17 15:00 23:00 07:00 Intake Total 640 ml 580 ml Balance 640 ml 580 ml Exam Constitutional: alert Head: atraumatic, normocephalic Respiratory: clear to auscultation Cardiovascular: regular rate and rhythm Gastrointestinal: nl liver, spleen, non-tender, soft Extremities: other (Left AKA) Results Result Diagram: 01/21/17 0515 01/23/17 0522 Results 24 hrs Laboratory Tests Test 01/24/17 17:21 01/24/17 20:25 01/25/17 08:21 01/25/17 12:17 Bedside Glucose 126 130 95 182 Medications Medications Current Medications Aspirin (Halfprin) 81 mg DAILY PO Last administered on 01/25/17 08:23; Admin Dose 81 MG; Start 12/27/16 at 09:00 Clopidogrel Bisulfate (plaVIX) 75 mg DAILY PO Last administered on 01/25/17 08 :23; Admin Dose 75 MG; Start 12/27/16 at 09:00 Famotidine (Pepcid) 40 mg HS PO Last administered on 01/24/17 20:29; Admin Dose 40 MG; Start 12/26/16 at 21:00 Folic Acid (Folic Acid) 1 mg DAILY PO Last administered on 01/25/17 08:24; Admin Dose 1 MG; Start 12/27/16 at 09:00 Gabapentin (Neurontin) 100 mg TID PO Last administered on 01/25/17 12:21; Admin Dose 100 MG; Start 12/26/16 at 21:00 Mycophenolate Mofetil (Cellcept) 1,000 mg BID PO Last administered on 08:23; Admin Dose 1,000 MG; Start 12/26/16 at 21:00 Pantoprazole (Protonix Tab) 40 mg DAILY@06 PO Last administered on 01/25/17 06 :03; Admin Dose 40 MG; Start 12/27/16 at 06:00 Diagnostic Test (Pha) (Accu-Chek) 1 ea 02 XX ; Start 12/27/16 at 02:00 Miscellaneous Information 1 ea NOTE XX ; Start 12/26/16 at 14:30 Glucose (Glutose) 15 gm Q15M PRN PO DECREASED GLUCOSE; Start 12/26/16 at 14:30 Glucose (Glutose) 22.5 gm Q15M PRN PO DECREASED GLUCOSE; Start 12/26/16 at 14:30 Dextrose (D50w Syringe) 25 ml Q15M PRN IV DECREASED GLUCOSE; Start 12/26/16 at 14:30 Dextrose (D50w Syringe) 50 ml Q15M PRN IV DECREASED GLUCOSE; Start 12/26/16 at 14:30 Glucagon (Glucagen) 1 mg Q15M PRN IM DECREASED GLUCOSE; Start 12/26/16 at 14:30 Glucose (Glutose) 15 gm Q15M PRN BUCCAL DECREASED GLUCOSE; Start 12/26/16 at 14: 30 Cholecalciferol (Vitamin D) 1,000 unit DAILY PO Last administered on 01/25/17 08:23; Admin Dose 1,000 UNIT; Start 12/28/16 at 09:00 Ondansetron HCl (Zofran Inj) 4 mg Q6H PRN IV NAUSEA AND/OR VOMITING Last administered on 01/15/17 09:50; Admin Dose 4 MG; Start 01/01/17 at 10:00 Haloperidol (Haldol) 2 mg Q4H PRN IM AGITATION/ANXIETY Last administered on 22:46; Admin Dose 2 MG; Start 01/08/17 at 01:30 Acetaminophen (Tylenol Tab) 650 mg Q6H PRN PO PAIN AND OR ELEVATED TEMP Last administered on 01/16/17 10:25; Admin Dose 650 MG; Start 01/08/17 at 22:30 Quetiapine Fumarate (Seroquel) 25 mg QHS PRN PO agitation/hallucinations Last administered on 01/09/17 22:15; Admin Dose 25 MG; Start 01/09/17 at 21:00 Morphine Sulfate (morphine) 2 mg Q8H PRN IV PAIN LEVEL 6-10 Last administered on 01/19/17 16:02; Admin Dose 2 MG; Start 01/11/17 at 14:00 Clonidine (Catapres) 0.1 mg Q6H PRN PO hypertension Last administered on 02:41; Admin Dose 0.1 MG; Start 01/14/17 at 02:30 Hydralazine HCl (Apresoline) 25 mg Q6H PRN IV ELEVATED SYSTOLIC BP Last administered on 01/14/17 07:04; Admin Dose 25 MG; Start 01/14/17 at 07:00 Insulin Glargine (Lantus) 5 unit DAILY@20 SC Last administered on 01/24/17 20: 32; Admin Dose 5 UNIT; Start 01/17/17 at 20:00 Tacrolimus (Prograf) 2 mg Q12 PO Last administered on 01/25/17 08:23; Admin Dose 2 MG; Start 01/18/17 at 09:00 IV Flush (NS 10 ml) 10 ml PRN PRN IV IV PROTOCOL; Start 01/19/17 at 12:30 Acetaminophen/ Hydrocodone Bitart ([place] (5/325)) 1 tab Q8H PRN PO PAIN Last administered on 01/24/17 20:28; Admin Dose 1 TAB; Start 01/19/17 at 14:30 Benazepril HCl (Lotensin) 10 mg DAILY PO Last administered on 01/25/17 09:19; Admin Dose 10 MG; Start 01/24/17 at 09:00 Metoprolol Tartrate (Lopressor) 50 mg BID PO Last administered on 01/25/17 09: 20; Admin Dose 50 MG; Start 01/23/17 at 21:00 ALVARO SERRANO M.D. Jan 25, 2017 15:37
[2017-01-25 20:00] VITALS: BP 128/63; RESP 19
[2017-01-25] MEDS: FAMOTIDINE 20 MG TAB PO SCH (20:20)
[2017-01-25] MEDS: INSULIN GLARGINE [LANtus] 3 ML PEN SC SCH (20:22)
[2017-01-26] MEDS: ACCU-CHEK XX SCH (01:34)
[2017-01-26 02:00] VITALS: BP 125/53; RESP 20
[2017-01-26] MEDS: PANTOPRAZOLE (EC) 40 MG TAB PO SCH (05:17)
[2017-01-26 05:20] LABS: BASOPHILS % 0.3 % (0.0-2.0); EOSINOPHILS # 0.1 10^3/ul (0.0-0.5); EOSINOPHILS % 1.5 % (0.0-7.0); HEMATOCRIT 24.5 % (37.0-47.0); HEMOGLOBIN 7.8 g/dl (12.0-16.0); LYMPHOCYTES # 0.9 10^3/ul (0.8-2.9); LYMPHOCYTES % 12.6 % (15.0-51.0); MEAN CORPUSCULAR HEMOGLOBIN 27.8 pg (29.0-33.0); MEAN CORPUSCULAR HGB CONC 31.8 g/dl (32.0-37.0); MEAN CORPUSCULAR VOLUME 87.2 fl (82.0-101.0); MEAN PLATELET VOLUME 10.8 fl (7.4-10.4); MONOCYTE # 0.8 10^3/ul (0.3-0.9); MONOCYTES % 11.2 % (0.0-11.0); NEUTROPHIL # 5.1 10^3/ul (1.6-7.5); NEUTROPHILS % 74.1 % (39.0-77.0); PLATELET COUNT 341 10^3/UL (140-415); RED BLOOD COUNT 2.81 10^6/ul (4.20-5.40); RED CELL DISTRIBUTION WIDTH 14.5 % (11.5-14.5); WHITE BLOOD COUNT 6.9 10^3/ul (4.8-10.8)
[2017-01-26 05:52] LABS: CALCIUM 9.4 mg/dl (8.4-10.2); CREATININE 0.6 mg/dl (0.44-1.00); POTASSIUM 4.3 mmol/L (3.5-5.1)
[2017-01-26 08:00] VITALS: BP 134/64; RESP 19
[2017-01-26] MEDS: INSULIN ASPART [NOVOLOG] 3 ML PEN SC SCH ×4 (08:00→21:00)
[2017-01-26] MEDS: TACROLIMUS 1 MG CAP PO SCH ×2 (08:04→20:58)
[2017-01-26] MEDS: GABAPENTIN 100 MG CAP PO SCH ×3 (08:04→20:58)
[2017-01-26] MEDS: MYCOPHENOLATE 250 MG CAP PO SCH ×2 (08:05→20:58)
[2017-01-26] MEDS: FOLIC ACID 1 MG TAB PO SCH (08:05)
[2017-01-26] MEDS: CLOPIDOGREL 75 MG TAB PO SCH (08:05)
[2017-01-26] MEDS: CHOLECALCIFEROL 1,000 UNIT TAB PO SCH (08:05)
[2017-01-26] MEDS: ASPIRIN (EC) 81 MG TAB PO SCH (08:05)
[2017-01-26] MEDS: METOPROLOL 50 MG TAB PO SCH ×2 (08:06→21:00)
[2017-01-26] MEDS: BENAZEPRIL 10 MG TAB PO SCH (08:06)
--- NOTE | 2017-01-26 12:14 | PN ---
Date/Time of Note Date/Time of Note DATE: 01/26/17 TIME: 11:53 Assessment/Plan Lines/Catheters IV [facility] Type (from [facility] PICC Line Urinary Cath still in place: No Assessment/Plan Assessment/Plan - Acute encephalopathy, resolved. CT brain is negative for any acute pathology. - a/o x1 - Bilateral lower extremities gangrene secondary to severe peripheral arterial disease, failed debridement and multiple revascularization procedures. S/p left AKA 01/[address] Valencia, vascular surgery. - stump with art. no s/s of infection, DDi - Diabetes mellitus type II. Continue Lantus and NovoLog. - History of kidney transplant in 2009, on immunosuppressive therapy. - Hypertension. Continue metoprolol, benazepril. 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 - Anemia of chronic kidney disease. Further recommendations based on clinical course. Plan of care discussed with Dr. Cohen Subjective 24 Hr Interval Summary Free Text/Dictation awake, alert,, seems comfortable, vss, no electrolytes result today, dw staff- no new events reported. at bed side- allQs answered. Respiratory: no complaints Cardiovascular: no complaints Gastrointestinal: no complaints Genitourinary: no complaints Musculoskeletal: other (left stump pain at times- none at present) Exam/Review of Systems Vital Signs Vitals Vital Signs Date Time Temp Pulse Resp B/P Pulse Ox O2 Delivery O2 Flow Rate FiO2 01/26/17 08:00 98.8 87 19 134/64 99 Intake and Output 01/25/17 01/25/17 01/26/17 15:00 23:00 07:00 Intake Total 400 ml 480 ml Output Total 200 ml Balance 400 ml 280 ml Exam Constitutional: alert, oriented Respiratory: clear to auscultation, normal air movement Cardiovascular: nl pulses, regular rate and rhythm Gastrointestinal: non-tender, soft Musculoskeletal: other Neurological: nl speech Results Result Diagram: 01/26/17 0443 01/26/17442 Results 24 hrs Laboratory Tests Test 01/25/17 12:17 01/25/17 20:18 01/26/17 04:43 01/26/17 08:01 Bedside Glucose 182 141 98 White Blood Count 6.9 Red Blood Count 2.81 L Hemoglobin 7.8 L Hematocrit 24.5 L Mean Corpuscular Volume 87.2 Mean Corpuscular Hemoglobin 27.8 L Mean Corpuscular Hemoglobin Concent 31.8 L Red Cell Distribution Width 14.5 Platelet Count 341 Mean Platelet Volume 10.8 H Neutrophils % 74.1 Lymphocytes % 12.6 L Monocytes % 11.2 H Eosinophils % 1.5 Basophils % 0.3 Nucleated Red Blood Cells % 0.0 Neutrophils # 5.1 Lymphocytes # 0.9 Monocytes # 0.8 Eosinophils # 0.1 Basophils # 0.0 Nucleated Red Blood Cells # 0.0 Sodium Level 134 L Potassium Level 4.3 Chloride Level 102 Carbon Dioxide Level 27 Anion Gap 9 Blood Urea Nitrogen 12 Creatinine 0.60 Glucose Level 95 Calcium Level 9.4 Medications Medications Current Medications Aspirin (Halfprin) 81 mg DAILY PO Last administered on 01/26/17 08:05; Admin Dose 81 MG; Start 12/27/16 at 09:00 Clopidogrel Bisulfate (plaVIX) 75 mg DAILY PO Last administered on 01/26/17 08 :05; Admin Dose 75 MG; Start 12/27/16 at 09:00 Famotidine (Pepcid) 40 mg HS PO Last administered on 01/25/17 20:20; Admin Dose 40 MG; Start 12/26/16 at 21:00 Folic Acid (Folic Acid) 1 mg DAILY PO Last administered on 01/26/17 08:05; Admin Dose 1 MG; Start 12/27/16 at 09:00 Gabapentin (Neurontin) 100 mg TID PO Last administered on 01/26/17 08:04; Admin Dose 100 MG; Start 12/26/16 at 21:00 Mycophenolate Mofetil (Cellcept) 1,000 mg BID PO Last administered on 08:05; Admin Dose 1,000 MG; Start 12/26/16 at 21:00 Pantoprazole (Protonix Tab) 40 mg DAILY@06 PO Last administered on 01/26/17 05 :17; Admin Dose 40 MG; Start 12/27/16 at 06:00 Diagnostic Test (Pha) (Accu-Chek) 1 ea 02 XX ; Start 12/27/16 at 02:00 Miscellaneous Information 1 ea NOTE XX ; Start 12/26/16 at 14:30 Glucose (Glutose) 15 gm Q15M PRN PO DECREASED GLUCOSE; Start 12/26/16 at 14:30 Glucose (Glutose) 22.5 gm Q15M PRN PO DECREASED GLUCOSE; Start 12/26/16 at 14:30 Dextrose (D50w Syringe) 25 ml Q15M PRN IV DECREASED GLUCOSE; Start 12/26/16 at 14:30 Dextrose (D50w Syringe) 50 ml Q15M PRN IV DECREASED GLUCOSE; Start 12/26/16 at 14:30 Glucagon (Glucagen) 1 mg Q15M PRN IM DECREASED GLUCOSE; Start 12/26/16 at 14:30 Glucose (Glutose) 15 gm Q15M PRN BUCCAL DECREASED GLUCOSE; Start 12/26/16 at 14: 30 Cholecalciferol (Vitamin D) 1,000 unit DAILY PO Last administered on 01/26/17 08:05; Admin Dose 1,000 UNIT; Start 12/28/16 at 09:00 Ondansetron HCl (Zofran Inj) 4 mg Q6H PRN IV NAUSEA AND/OR VOMITING Last administered on 01/15/17 09:50; Admin Dose 4 MG; Start 01/01/17 at 10:00 Haloperidol (Haldol) 2 mg Q4H PRN IM AGITATION/ANXIETY Last administered on 22:46; Admin Dose 2 MG; Start 01/08/17 at 01:30 Acetaminophen (Tylenol Tab) 650 mg Q6H PRN PO PAIN AND OR ELEVATED TEMP Last administered on 01/16/17 10:25; Admin Dose 650 MG; Start 01/08/17 at 22:30 Quetiapine Fumarate (Seroquel) 25 mg QHS PRN PO agitation/hallucinations Last administered on 01/09/17 22:15; Admin Dose 25 MG; Start 01/09/17 at 21:00 Morphine Sulfate (morphine) 2 mg Q8H PRN IV PAIN LEVEL 6-10 Last administered on 01/19/17 16:02; Admin Dose 2 MG; Start 01/11/17 at 14:00 Clonidine (Catapres) 0.1 mg Q6H PRN PO hypertension Last administered on 02:41; Admin Dose 0.1 MG; Start 01/14/17 at 02:30 Hydralazine HCl (Apresoline) 25 mg Q6H PRN IV ELEVATED SYSTOLIC BP Last administered on 01/14/17 07:04; Admin Dose 25 MG; Start 01/14/17 at 07:00 Insulin Glargine (Lantus) 5 unit DAILY@20 SC Last administered on 01/25/17 20: 22; Admin Dose 5 UNIT; Start 01/17/17 at 20:00 Tacrolimus (Prograf) 2 mg Q12 PO Last administered on 01/26/17 08:04; Admin Dose 2 MG; Start 01/18/17 at 09:00 IV Flush (NS 10 ml) 10 ml PRN PRN IV IV PROTOCOL; Start 01/19/17 at 12:30 Acetaminophen/ Hydrocodone Bitart ([place] (5/325)) 1 tab Q8H PRN PO PAIN Last administered on 01/24/17 20:28; Admin Dose 1 TAB; Start 01/19/17 at 14:30 Benazepril HCl (Lotensin) 10 mg DAILY PO Last administered on 01/26/17 08:06; Admin Dose 10 MG; Start 01/24/17 at 09:00 Metoprolol Tartrate (Lopressor) 50 mg BID PO Last administered on 01/26/17 08: 06; Admin Dose 50 MG; Start 01/23/17 at 21:00 TIM BENNETT Jan 26, 2017 12:03
--- NOTE | 2017-01-26 15:29 | CONS ---
Date/Time of Note Date/Time of Note DATE: 01/26/17 TIME: 15:28 Assessment/Plan Assessment/Plan Chief Complaint/Hosp Course SUBJECTIVE DATA: No acute events. Patient looks comfortable. No fevers. ANTIMICROBIALS: none OBJECTIVE DATA: GENERAL: Chronically ill-appearing, elderly woman, who is awake, in no distress. HEENT: Head atraumatic, normocephalic. Sclerae anicteric. Buccal mucosa dry. NECK: Supple. CHEST: Rise symmetrical. Breath sounds diminished at the bases. HEART: S1, S2. ABDOMEN: Soft, bowel sounds present. EXTREMITIES: With left above-knee amputation. The right foot dressing intact. ASSESSMENT: 1. Bilateral lower extremities gangrene, status post left above- knee amputation. 2. Severe peripheral arterial disease, failed multiple revascularization procedures. 3. History of kidney transplant, remains on immunosuppressive therapy. 4. Resolved diarrhea, on empiric oral vancomycin. 5. Diabetes. 6. History of cgbwmanw-eongkujn-kxrf-lactamase urinary tract infection. 7. R foot gangrene with open wound==> cx + E coli ESBL==> treated PLAN: Patient remains stable. Off abx, f/u vascular rec-s [facility] staff Problems: Consultation Date/Type/Reason Admit Date/Time Dec 26, 2016 at 13:22 Initial Consult Date 12/27/16 Type of Consultation: ID Referring Provider: LES GILLILAND Exam/Review of Systems Vital Signs Vitals Vital Signs Date Time Temp Pulse Resp B/P Pulse Ox O2 Delivery O2 Flow Rate FiO2 01/26/17 08:00 98.8 87 19 134/64 99 Intake and Output 01/25/17 01/25/17 01/26/17 15:00 23:00 07:00 Intake Total 400 ml 480 ml Output Total 200 ml Balance 400 ml 280 ml Results Result Diagram: 01/26/17 0443 01/26/17 0443 Results 24 hrs Laboratory Tests Test 01/25/17 20:18 01/26/17 04:43 01/26/17 08:01 01/26/17 12:06 Bedside Glucose 141 98 155 White Blood Count 6.9 Red Blood Count 2.81 L Hemoglobin 7.8 L Hematocrit 24.5 L Mean Corpuscular Volume 87.2 Mean Corpuscular Hemoglobin 27.8 L Mean Corpuscular Hemoglobin Concent 31.8 L Red Cell Distribution Width 14.5 Platelet Count 341 Mean Platelet Volume 10.8 H Neutrophils % 74.1 Lymphocytes % 12.6 L Monocytes % 11.2 H Eosinophils % 1.5 Basophils % 0.3 Nucleated Red Blood Cells % 0.0 Neutrophils # 5.1 Lymphocytes # 0.9 Monocytes # 0.8 Eosinophils # 0.1 Basophils # 0.0 Nucleated Red Blood Cells # 0.0 Sodium Level 134 L Potassium Level 4.3 Chloride Level 102 Carbon Dioxide Level 27 Anion Gap 9 Blood Urea Nitrogen 12 Creatinine 0.60 Glucose Level 95 Calcium Level 9.4 Medications Medications Current Medications Aspirin (Halfprin) 81 mg DAILY PO Last administered on 01/26/17 08:05; Admin Dose 81 MG; Start 12/27/16 at 09:00 Clopidogrel Bisulfate (plaVIX) 75 mg DAILY PO Last administered on 01/26/17 08 :05; Admin Dose 75 MG; Start 12/27/16 at 09:00 Famotidine (Pepcid) 40 mg HS PO Last administered on 01/25/17 20:20; Admin Dose 40 MG; Start 12/26/16 at 21:00 Folic Acid (Folic Acid) 1 mg DAILY PO Last administered on 01/26/17 08:05; Admin Dose 1 MG; Start 12/27/16 at 09:00 Gabapentin (Neurontin) 100 mg TID PO Last administered on 01/26/17 12:09; Admin Dose 100 MG; Start 12/26/16 at 21:00 Mycophenolate Mofetil (Cellcept) 1,000 mg BID PO Last administered on 08:05; Admin Dose 1,000 MG; Start 12/26/16 at 21:00 Pantoprazole (Protonix Tab) 40 mg DAILY@06 PO Last administered on 01/26/17 05 :17; Admin Dose 40 MG; Start 12/27/16 at 06:00 Diagnostic Test (Pha) (Accu-Chek) 1 ea 02 XX ; Start 12/27/16 at 02:00 Miscellaneous Information 1 ea NOTE XX ; Start 12/26/16 at 14:30 Glucose (Glutose) 15 gm Q15M PRN PO DECREASED GLUCOSE; Start 12/26/16 at 14:30 Glucose (Glutose) 22.5 gm Q15M PRN PO DECREASED GLUCOSE; Start 12/26/16 at 14:30 Dextrose (D50w Syringe) 25 ml Q15M PRN IV DECREASED GLUCOSE; Start 12/26/16 at 14:30 Dextrose (D50w Syringe) 50 ml Q15M PRN IV DECREASED GLUCOSE; Start 12/26/16 at 14:30 Glucagon (Glucagen) 1 mg Q15M PRN IM DECREASED GLUCOSE; Start 12/26/16 at 14:30 Glucose (Glutose) 15 gm Q15M PRN BUCCAL DECREASED GLUCOSE; Start 12/26/16 at 14: 30 Cholecalciferol (Vitamin D) 1,000 unit DAILY PO Last administered on 01/26/17 08:05; Admin Dose 1,000 UNIT; Start 12/28/16 at 09:00 Ondansetron HCl (Zofran Inj) 4 mg Q6H PRN IV NAUSEA AND/OR VOMITING Last administered on 01/15/17 09:50; Admin Dose 4 MG; Start 01/01/17 at 10:00 Haloperidol (Haldol) 2 mg Q4H PRN IM AGITATION/ANXIETY Last administered on 22:46; Admin Dose 2 MG; Start 01/08/17 at 01:30 Acetaminophen (Tylenol Tab) 650 mg Q6H PRN PO PAIN AND OR ELEVATED TEMP Last administered on 01/16/17 10:25; Admin Dose 650 MG; Start 01/08/17 at 22:30 Quetiapine Fumarate (Seroquel) 25 mg QHS PRN PO agitation/hallucinations Last administered on 01/09/17 22:15; Admin Dose 25 MG; Start 01/09/17 at 21:00 Morphine Sulfate (morphine) 2 mg Q8H PRN IV PAIN LEVEL 6-10 Last administered on 01/19/17 16:02; Admin Dose 2 MG; Start 01/11/17 at 14:00 Clonidine (Catapres) 0.1 mg Q6H PRN PO hypertension Last administered on 02:41; Admin Dose 0.1 MG; Start 01/14/17 at 02:30 Hydralazine HCl (Apresoline) 25 mg Q6H PRN IV ELEVATED SYSTOLIC BP Last administered on 01/14/17 07:04; Admin Dose 25 MG; Start 01/14/17 at 07:00 Insulin Glargine (Lantus) 5 unit DAILY@20 SC Last administered on 01/25/17 20: 22; Admin Dose 5 UNIT; Start 01/17/17 at 20:00 Tacrolimus (Prograf) 2 mg Q12 PO Last administered on 01/26/17 08:04; Admin Dose 2 MG; Start 01/18/17 at 09:00 IV Flush (NS 10 ml) 10 ml PRN PRN IV IV PROTOCOL; Start 01/19/17 at 12:30 Acetaminophen/ Hydrocodone Bitart ([place] (5/325)) 1 tab Q8H PRN PO PAIN Last administered on 01/24/17 20:28; Admin Dose 1 TAB; Start 01/19/17 at 14:30 Benazepril HCl (Lotensin) 10 mg DAILY PO Last administered on 01/26/17 08:06; Admin Dose 10 MG; Start 01/24/17 at 09:00 Metoprolol Tartrate (Lopressor) 50 mg BID PO Last administered on 01/26/17 08: 06; Admin Dose 50 MG; Start 01/23/17 at 21:00 JACQUES HUERTA NP Jan 26, 2017 15:29
--- NOTE | 2017-01-26 15:40 | CONS ---
Date/Time of Note Date/Time of Note DATE: 01/26/17 TIME: 15:39 Assessment/Plan Assessment/Plan Additional Assessment/Plan PAD with Bilateral LE gangrene, s/p amputation,s/p debridement with revascularization with s/p Left AKA HTN DM Anemia s/p kidney transplant Continuer ASA and Plavix Continue Metoprolol and benazepril Continue CellCept and Tacrolimus Continue antibiotics Continue GI and DVT Prophylaxis Wound care as scheduled Consultation Date/Type/Reason Admit Date/Time Dec 26, 2016 at 13:22 Initial Consult Date 01/09/17 Type of Consultation: ID Referring Provider: LES GILLILAND Exam/Review of Systems Vital Signs Vitals Vital Signs Date Time Temp Pulse Resp B/P Pulse Ox O2 Delivery O2 Flow Rate FiO2 01/26/17 08:00 98.8 87 19 134/64 99 Intake and Output 01/25/17 01/25/17 01/26/17 15:00 23:00 07:00 Intake Total 400 ml 480 ml Output Total 200 ml Balance 400 ml 280 ml Exam Constitutional: alert Head: atraumatic, normocephalic Respiratory: clear to auscultation Cardiovascular: regular rate and rhythm Gastrointestinal: nl liver, spleen, non-tender, soft Extremities: other (Left AKA) Results Result Diagram: 01/26/17 0443 01/26/17442 Results 24 hrs Laboratory Tests Test 01/25/17 20:18 01/26/17 04:43 01/26/17 08:01 01/26/17 12:06 Bedside Glucose 141 98 155 White Blood Count 6.9 Red Blood Count 2.81 L Hemoglobin 7.8 L Hematocrit 24.5 L Mean Corpuscular Volume 87.2 Mean Corpuscular Hemoglobin 27.8 L Mean Corpuscular Hemoglobin Concent 31.8 L Red Cell Distribution Width 14.5 Platelet Count 341 Mean Platelet Volume 10.8 H Neutrophils % 74.1 Lymphocytes % 12.6 L Monocytes % 11.2 H Eosinophils % 1.5 Basophils % 0.3 Nucleated Red Blood Cells % 0.0 Neutrophils # 5.1 Lymphocytes # 0.9 Monocytes # 0.8 Eosinophils # 0.1 Basophils # 0.0 Nucleated Red Blood Cells # 0.0 Sodium Level 134 L Potassium Level 4.3 Chloride Level 102 Carbon Dioxide Level 27 Anion Gap 9 Blood Urea Nitrogen 12 Creatinine 0.60 Glucose Level 95 Calcium Level 9.4 Medications Medications Current Medications Aspirin (Halfprin) 81 mg DAILY PO Last administered on 01/26/17 08:05; Admin Dose 81 MG; Start 12/27/16 at 09:00 Clopidogrel Bisulfate (plaVIX) 75 mg DAILY PO Last administered on 01/26/17 08 :05; Admin Dose 75 MG; Start 12/27/16 at 09:00 Famotidine (Pepcid) 40 mg HS PO Last administered on 01/25/17 20:20; Admin Dose 40 MG; Start 12/26/16 at 21:00 Folic Acid (Folic Acid) 1 mg DAILY PO Last administered on 01/26/17 08:05; Admin Dose 1 MG; Start 12/27/16 at 09:00 Gabapentin (Neurontin) 100 mg TID PO Last administered on 01/26/17 12:09; Admin Dose 100 MG; Start 12/26/16 at 21:00 Mycophenolate Mofetil (Cellcept) 1,000 mg BID PO Last administered on 08:05; Admin Dose 1,000 MG; Start 12/26/16 at 21:00 Pantoprazole (Protonix Tab) 40 mg DAILY@06 PO Last administered on 01/26/17 05 :17; Admin Dose 40 MG; Start 12/27/16 at 06:00 Diagnostic Test (Pha) (Accu-Chek) 1 ea 02 XX ; Start 12/27/16 at 02:00 Miscellaneous Information 1 ea NOTE XX ; Start 12/26/16 at 14:30 Glucose (Glutose) 15 gm Q15M PRN PO DECREASED GLUCOSE; Start 12/26/16 at 14:30 Glucose (Glutose) 22.5 gm Q15M PRN PO DECREASED GLUCOSE; Start 12/26/16 at 14:30 Dextrose (D50w Syringe) 25 ml Q15M PRN IV DECREASED GLUCOSE; Start 12/26/16 at 14:30 Dextrose (D50w Syringe) 50 ml Q15M PRN IV DECREASED GLUCOSE; Start 12/26/16 at 14:30 Glucagon (Glucagen) 1 mg Q15M PRN IM DECREASED GLUCOSE; Start 12/26/16 at 14:30 Glucose (Glutose) 15 gm Q15M PRN BUCCAL DECREASED GLUCOSE; Start 12/26/16 at 14: 30 Cholecalciferol (Vitamin D) 1,000 unit DAILY PO Last administered on 01/26/17 08:05; Admin Dose 1,000 UNIT; Start 12/28/16 at 09:00 Ondansetron HCl (Zofran Inj) 4 mg Q6H PRN IV NAUSEA AND/OR VOMITING Last administered on 01/15/17 09:50; Admin Dose 4 MG; Start 01/01/17 at 10:00 Haloperidol (Haldol) 2 mg Q4H PRN IM AGITATION/ANXIETY Last administered on 22:46; Admin Dose 2 MG; Start 01/08/17 at 01:30 Acetaminophen (Tylenol Tab) 650 mg Q6H PRN PO PAIN AND OR ELEVATED TEMP Last administered on 01/16/17 10:25; Admin Dose 650 MG; Start 01/08/17 at 22:30 Quetiapine Fumarate (Seroquel) 25 mg QHS PRN PO agitation/hallucinations Last administered on 01/09/17 22:15; Admin Dose 25 MG; Start 01/09/17 at 21:00 Morphine Sulfate (morphine) 2 mg Q8H PRN IV PAIN LEVEL 6-10 Last administered on 01/19/17 16:02; Admin Dose 2 MG; Start 01/11/17 at 14:00 Clonidine (Catapres) 0.1 mg Q6H PRN PO hypertension Last administered on 02:41; Admin Dose 0.1 MG; Start 01/14/17 at 02:30 Hydralazine HCl (Apresoline) 25 mg Q6H PRN IV ELEVATED SYSTOLIC BP Last administered on 01/14/17 07:04; Admin Dose 25 MG; Start 01/14/17 at 07:00 Insulin Glargine (Lantus) 5 unit DAILY@20 SC Last administered on 01/25/17 20: 22; Admin Dose 5 UNIT; Start 01/17/17 at 20:00 Tacrolimus (Prograf) 2 mg Q12 PO Last administered on 01/26/17 08:04; Admin Dose 2 MG; Start 01/18/17 at 09:00 IV Flush (NS 10 ml) 10 ml PRN PRN IV IV PROTOCOL; Start 01/19/17 at 12:30 Acetaminophen/ Hydrocodone Bitart ([place] (5/325)) 1 tab Q8H PRN PO PAIN Last administered on 01/24/17 20:28; Admin Dose 1 TAB; Start 01/19/17 at 14:30 Benazepril HCl (Lotensin) 10 mg DAILY PO Last administered on 01/26/17 08:06; Admin Dose 10 MG; Start 01/24/17 at 09:00 Metoprolol Tartrate (Lopressor) 50 mg BID PO Last administered on 01/26/17 08: 06; Admin Dose 50 MG; Start 01/23/17 at 21:00 ALVARO SERRANO M.D. Jan 26, 2017 15:40
[2017-01-26 20:00] VITALS: BP 141/65; RESP 19
[2017-01-26] MEDS: HYDROCODONE/APAP (5/325) TAB PO PRN (20:15)
[2017-01-26] MEDS: FAMOTIDINE 20 MG TAB PO SCH (20:59)
[2017-01-26] MEDS: INSULIN GLARGINE [LANtus] 3 ML PEN SC SCH (21:02)
[2017-01-27 02:00] VITALS: BP 130/59; RESP 18
[2017-01-27] MEDS: ACCU-CHEK XX SCH (02:00)
[2017-01-27] MEDS: PANTOPRAZOLE (EC) 40 MG TAB PO SCH (06:06)
[2017-01-27 06:39] LABS: BASOPHILS % 0.5 % (0.0-2.0); EOSINOPHILS # 0.1 10^3/ul (0.0-0.5); EOSINOPHILS % 1.1 % (0.0-7.0); HEMATOCRIT 30.4 % (37.0-47.0); HEMOGLOBIN 9.8 g/dl (12.0-16.0); LYMPHOCYTES # 0.6 10^3/ul (0.8-2.9); LYMPHOCYTES % 9.5 % (15.0-51.0); MEAN CORPUSCULAR HEMOGLOBIN 27.2 pg (29.0-33.0); MEAN CORPUSCULAR HGB CONC 32.2 g/dl (32.0-37.0); MEAN CORPUSCULAR VOLUME 84.4 fl (82.0-101.0); MEAN PLATELET VOLUME 10.9 fl (7.4-10.4); MONOCYTE # 0.7 10^3/ul (0.3-0.9); MONOCYTES % 11.3 % (0.0-11.0); NEUTROPHIL # 5.1 10^3/ul (1.6-7.5); NEUTROPHILS % 77.4 % (39.0-77.0); PLATELET COUNT 334 10^3/UL (140-415); RED CELL DISTRIBUTION WIDTH 15.8 % (11.5-14.5); WHITE BLOOD COUNT 6.6 10^3/ul (4.8-10.8)
[2017-01-27 07:01] LABS: CALCIUM 9.3 mg/dl (8.4-10.2); CREATININE 0.58 mg/dl (0.44-1.00); POTASSIUM 4.3 mmol/L (3.5-5.1)
[2017-01-27 07:31] VITALS: BP 124/59; RESP 16
[2017-01-27] MEDS: INSULIN ASPART [NOVOLOG] 3 ML PEN SC SCH ×4 (08:00→21:00)
[2017-01-27] MEDS: METOPROLOL 50 MG TAB PO SCH ×2 (08:43→21:06)
[2017-01-27] MEDS: CHOLECALCIFEROL 1,000 UNIT TAB PO SCH (08:43)
[2017-01-27] MEDS: FOLIC ACID 1 MG TAB PO SCH (08:44)
[2017-01-27] MEDS: TACROLIMUS 1 MG CAP PO SCH ×2 (08:44→21:06)
[2017-01-27] MEDS: GABAPENTIN 100 MG CAP PO SCH ×3 (08:44→21:05)
[2017-01-27] MEDS: ASPIRIN (EC) 81 MG TAB PO SCH (08:45)
[2017-01-27] MEDS: MYCOPHENOLATE 250 MG CAP PO SCH ×2 (08:46→21:06)
[2017-01-27] MEDS: BENAZEPRIL 10 MG TAB PO SCH (08:46)
[2017-01-27] MEDS: CLOPIDOGREL 75 MG TAB PO SCH (08:47)
[2017-01-27 14:43] VITALS: BP 141/72; RESP 18
--- NOTE | 2017-01-27 16:59 | CONS ---
Date/Time of Note Date/Time of Note DATE: 01/27/17 TIME: 16:58 Assessment/Plan Assessment/Plan Additional Assessment/Plan 1. 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 h/o donor kidney transplant in 2009 at [facility], currently on immunosuppression with Prograf, CellCept 4. 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 History of hypertension. 6. History of diabetes mellitus. 7. History of previous left upper extremity arteriovenous fistula. 8. Hyponatremia due to hypovolemic hyponatremia post op 9. -CT chest+ abd+pelvis with and without contrast negative for mass/LAD/ Malignancy Plan: continue Current immunosuppression Prograf and cellcept, Cr normal s/p Left AKA, off IV abx now, continue lotensin for now Cr and Elecfrolyes stable as per Last labs. ID following will follow up Consultation Date/Type/Reason Admit Date/Time Dec 26, 2016 at 13:22 Initial Consult Date 12/27/16 Type of Consultation: NEPHROLOGY Referring Provider: LES GILLILAND 24 HR Interval Summary Free Text/Dictation stable, no acute events Exam/Review of Systems Vital Signs Vitals Vital Signs Date Time Temp Pulse Resp B/P Pulse Ox O2 Delivery O2 Flow Rate FiO2 01/27/17 14:43 97.3 70 18 141/72 100 Intake and Output 01/26/17 01/26/17 01/27/17 15:00 23:00 07:00 Intake Total 890 ml 280 ml Balance 890 ml 280 ml Exam GEN: fragile elderly woman who is awake in no distress. HEENT: Head atraumatic, normocephalic. Sclerae anicteric. NECK: Supple. CHEST: Rise symmetrical. Breath sounds clear. HEART: S1, S2. ABDOMEN: Soft, bowel sounds present. left BKA dressing clean Results Result Diagram: 01/27/17 0600 01/27/17 0600 Results 24 hrs Laboratory Tests Test 01/26/17 17:24 01/26/17 20:58 01/27/17 06:00 01/27/17 07:54 Bedside Glucose 134 131 97 White Blood Count 6.6 Red Blood Count 3.60 #L Hemoglobin 9.8 #L Hematocrit 30.4 #L Mean Corpuscular Volume 84.4 Mean Corpuscular Hemoglobin 27.2 L Mean Corpuscular Hemoglobin Concent 32.2 Red Cell Distribution Width 15.8 H Platelet Count 334 Mean Platelet Volume 10.9 H Neutrophils % 77.4 H Lymphocytes % 9.5 L Monocytes % 11.3 H Eosinophils % 1.1 Basophils % 0.5 Nucleated Red Blood Cells % 0.0 Neutrophils # 5.1 Lymphocytes # 0.6 L Monocytes # 0.7 Eosinophils # 0.1 Basophils # 0.0 Nucleated Red Blood Cells # 0.0 Sodium Level 133 L Potassium Level 4.3 Chloride Level 102 Carbon Dioxide Level 27 Anion Gap 8 Blood Urea Nitrogen 15 Creatinine 0.58 Glucose Level 91 Calcium Level 9.3 Test 01/27/17 11:59 Bedside Glucose 140 Medications Medications Current Medications Aspirin (Halfprin) 81 mg DAILY PO Last administered on 01/27/17 08:45; Admin Dose 81 MG; Start 12/27/16 at 09:00 Clopidogrel Bisulfate (plaVIX) 75 mg DAILY PO Last administered on 01/27/17 08 :47; Admin Dose 75 MG; Start 12/27/16 at 09:00 Famotidine (Pepcid) 40 mg HS PO Last administered on 01/26/17 20:59; Admin Dose 40 MG; Start 12/26/16 at 21:00 Folic Acid (Folic Acid) 1 mg DAILY PO Last administered on 01/27/17 08:44; Admin Dose 1 MG; Start 12/27/16 at 09:00 Gabapentin (Neurontin) 100 mg TID PO Last administered on 01/27/17 12:49; Admin Dose 100 MG; Start 12/26/16 at 21:00 Mycophenolate Mofetil (Cellcept) 1,000 mg BID PO Last administered on 08:46; Admin Dose 1,000 MG; Start 12/26/16 at 21:00 Pantoprazole (Protonix Tab) 40 mg DAILY@06 PO Last administered on 01/27/17 06 :06; Admin Dose 40 MG; Start 12/27/16 at 06:00 Diagnostic Test (Pha) (Accu-Chek) 1 ea 02 XX ; Start 12/27/16 at 02:00 Miscellaneous Information 1 ea NOTE XX ; Start 12/26/16 at 14:30 Glucose (Glutose) 15 gm Q15M PRN PO DECREASED GLUCOSE; Start 12/26/16 at 14:30 Glucose (Glutose) 22.5 gm Q15M PRN PO DECREASED GLUCOSE; Start 12/26/16 at 14:30 Dextrose (D50w Syringe) 25 ml Q15M PRN IV DECREASED GLUCOSE; Start 12/26/16 at 14:30 Dextrose (D50w Syringe) 50 ml Q15M PRN IV DECREASED GLUCOSE; Start 12/26/16 at 14:30 Glucagon (Glucagen) 1 mg Q15M PRN IM DECREASED GLUCOSE; Start 12/26/16 at 14:30 Glucose (Glutose) 15 gm Q15M PRN BUCCAL DECREASED GLUCOSE; Start 12/26/16 at 14: 30 Cholecalciferol (Vitamin D) 1,000 unit DAILY PO Last administered on 01/27/17 08:43; Admin Dose 1,000 UNIT; Start 12/28/16 at 09:00 Ondansetron HCl (Zofran Inj) 4 mg Q6H PRN IV NAUSEA AND/OR VOMITING Last administered on 01/15/17 09:50; Admin Dose 4 MG; Start 01/01/17 at 10:00 Haloperidol (Haldol) 2 mg Q4H PRN IM AGITATION/ANXIETY Last administered on 22:46; Admin Dose 2 MG; Start 01/08/17 at 01:30 Acetaminophen (Tylenol Tab) 650 mg Q6H PRN PO PAIN AND OR ELEVATED TEMP Last administered on 01/16/17 10:25; Admin Dose 650 MG; Start 01/08/17 at 22:30 Quetiapine Fumarate (Seroquel) 25 mg QHS PRN PO agitation/hallucinations Last administered on 01/09/17 22:15; Admin Dose 25 MG; Start 01/09/17 at 21:00 Morphine Sulfate (morphine) 2 mg Q8H PRN IV PAIN LEVEL 6-10 Last administered on 01/19/17 16:02; Admin Dose 2 MG; Start 01/11/17 at 14:00 Clonidine (Catapres) 0.1 mg Q6H PRN PO hypertension Last administered on 02:41; Admin Dose 0.1 MG; Start 01/14/17 at 02:30 Hydralazine HCl (Apresoline) 25 mg Q6H PRN IV ELEVATED SYSTOLIC BP Last administered on 01/14/17 07:04; Admin Dose 25 MG; Start 01/14/17 at 07:00 Insulin Glargine (Lantus) 5 unit DAILY@20 SC Last administered on 01/26/17 21: 02; Admin Dose 5 UNIT; Start 01/17/17 at 20:00 Tacrolimus (Prograf) 2 mg Q12 PO Last administered on 01/27/17 08:44; Admin Dose 2 MG; Start 01/18/17 at 09:00 IV Flush (NS 10 ml) 10 ml PRN PRN IV IV PROTOCOL; Start 01/19/17 at 12:30 Acetaminophen/ Hydrocodone Bitart ([place] (5/325)) 1 tab Q8H PRN PO PAIN Last administered on 01/26/17 20:15; Admin Dose 1 TAB; Start 01/19/17 at 14:30 Benazepril HCl (Lotensin) 10 mg DAILY PO Last administered on 01/27/17 08:46; Admin Dose 10 MG; Start 01/24/17 at 09:00 Metoprolol Tartrate (Lopressor) 50 mg BID PO Last administered on 01/27/17 08: 43; Admin Dose 50 MG; Start 01/23/17 at 21:00 RAMON KEMP MD Jan 27, 2017 16:59
--- NOTE | 2017-01-27 18:31 | PN ---
Date/Time of Note Date/Time of Note DATE: 01/27/17 TIME: 18:29 Assessment/Plan VTE Prophylaxis VTE Prophylaxis Intervention: other Lines/Catheters IV Catheter Type (from Nrs): PICC Line Central line still needed: Yes Urinary Cath still in place: No Assessment/Plan Chief Complaint/Hosp Course Patient continues to work with physical therapy, hemodynamically stable, lanes of mild to moderate pain which is well controlled. Assessment/Plan - Acute encephalopathy, resolved. CT brain is negative for any acute pathology. 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 S/p left AKA 01/[address] Valencia, vascular surgery. - Diabetes mellitus type II. Continue Lantus and NovoLog. - History of kidney transplant in 2009, on immunosuppressive therapy. - Hypertension. Continue metoprolol, benazepril. 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 - Anemia of chronic kidney disease. Further recommendations based on clinical course. Plan of care discussed with Dr. Cohen Problems: Exam/Review of Systems Vital Signs Vitals Vital Signs Date Time Temp Pulse Resp B/P Pulse Ox O2 Delivery O2 Flow Rate FiO2 01/27/17 14:43 97.3 70 18 141/72 100 Intake and Output 01/26/17 01/26/17 01/27/17 15:00 23:00 07:00 Intake Total 890 ml 280 ml Balance 890 ml 280 ml Exam Constitutional: awake, alert Neck: supple Respiratory: clear to auscultation Cardiovascular: nl pulses Gastrointestinal: non-tender, soft Extremities: other (S/p LAKA) Results Result Diagram: 01/27/17 0601/27/17 0600 Results 24 hrs Laboratory Tests Test 01/26/17 20:58 01/27/17 06:00 01/27/17 07:54 01/27/17 11:59 Bedside Glucose 131 97 140 White Blood Count 6.6 Red Blood Count 3.60 #L Hemoglobin 9.8 #L Hematocrit 30.4 #L Mean Corpuscular Volume 84.4 Mean Corpuscular Hemoglobin 27.2 L Mean Corpuscular Hemoglobin Concent 32.2 Red Cell Distribution Width 15.8 H Platelet Count 334 Mean Platelet Volume 10.9 H Neutrophils % 77.4 H Lymphocytes % 9.5 L Monocytes % 11.3 H Eosinophils % 1.1 Basophils % 0.5 Nucleated Red Blood Cells % 0.0 Neutrophils # 5.1 Lymphocytes # 0.6 L Monocytes # 0.7 Eosinophils # 0.1 Basophils # 0.0 Nucleated Red Blood Cells # 0.0 Sodium Level 133 L Potassium Level 4.3 Chloride Level 102 Carbon Dioxide Level 27 Anion Gap 8 Blood Urea Nitrogen 15 Creatinine 0.58 Glucose Level 91 Calcium Level 9.3 Test 01/27/17 17:33 Bedside Glucose 123 Medications Medications Current Medications Aspirin (Halfprin) 81 mg DAILY PO Last administered on 01/27/17 08:45; Admin Dose 81 MG; Start 12/27/16 at 09:00 Clopidogrel Bisulfate (plaVIX) 75 mg DAILY PO Last administered on 01/27/17 08 :47; Admin Dose 75 MG; Start 12/27/16 at 09:00 Famotidine (Pepcid) 40 mg HS PO Last administered on 01/26/17 20:59; Admin Dose 40 MG; Start 12/26/16 at 21:00 Folic Acid (Folic Acid) 1 mg DAILY PO Last administered on 01/27/17 08:44; Admin Dose 1 MG; Start 12/27/16 at 09:00 Gabapentin (Neurontin) 100 mg TID PO Last administered on 01/27/17 12:49; Admin Dose 100 MG; Start 12/26/16 at 21:00 Mycophenolate Mofetil (Cellcept) 1,000 mg BID PO Last administered on 08:46; Admin Dose 1,000 MG; Start 12/26/16 at 21:00 Pantoprazole (Protonix Tab) 40 mg DAILY@06 PO Last administered on 01/27/17 06 :06; Admin Dose 40 MG; Start 12/27/16 at 06:00 Diagnostic Test (Pha) (Accu-Chek) 1 ea 02 XX ; Start 12/27/16 at 02:00 Miscellaneous Information 1 ea NOTE XX ; Start 12/26/16 at 14:30 Glucose (Glutose) 15 gm Q15M PRN PO DECREASED GLUCOSE; Start 12/26/16 at 14:30 Glucose (Glutose) 22.5 gm Q15M PRN PO DECREASED GLUCOSE; Start 12/26/16 at 14:30 Dextrose (D50w Syringe) 25 ml Q15M PRN IV DECREASED GLUCOSE; Start 12/26/16 at 14:30 Dextrose (D50w Syringe) 50 ml Q15M PRN IV DECREASED GLUCOSE; Start 12/26/16 at 14:30 Glucagon (Glucagen) 1 mg Q15M PRN IM DECREASED GLUCOSE; Start 12/26/16 at 14:30 Glucose (Glutose) 15 gm Q15M PRN BUCCAL DECREASED GLUCOSE; Start 12/26/16 at 14: 30 Cholecalciferol (Vitamin D) 1,000 unit DAILY PO Last administered on 01/27/17 08:43; Admin Dose 1,000 UNIT; Start 12/28/16 at 09:00 Ondansetron HCl (Zofran Inj) 4 mg Q6H PRN IV NAUSEA AND/OR VOMITING Last administered on 01/15/17 09:50; Admin Dose 4 MG; Start 01/01/17 at 10:00 Haloperidol (Haldol) 2 mg Q4H PRN IM AGITATION/ANXIETY Last administered on 22:46; Admin Dose 2 MG; Start 01/08/17 at 01:30 Acetaminophen (Tylenol Tab) 650 mg Q6H PRN PO PAIN AND OR ELEVATED TEMP Last administered on 01/16/17 10:25; Admin Dose 650 MG; Start 01/08/17 at 22:30 Quetiapine Fumarate (Seroquel) 25 mg QHS PRN PO agitation/hallucinations Last administered on 01/09/17 22:15; Admin Dose 25 MG; Start 01/09/17 at 21:00 Morphine Sulfate (morphine) 2 mg Q8H PRN IV PAIN LEVEL 6-10 Last administered on 01/19/17 16:02; Admin Dose 2 MG; Start 01/11/17 at 14:00 Clonidine (Catapres) 0.1 mg Q6H PRN PO hypertension Last administered on 02:41; Admin Dose 0.1 MG; Start 01/14/17 at 02:30 Hydralazine HCl (Apresoline) 25 mg Q6H PRN IV ELEVATED SYSTOLIC BP Last administered on 01/14/17 07:04; Admin Dose 25 MG; Start 01/14/17 at 07:00 Insulin Glargine (Lantus) 5 unit DAILY@20 SC Last administered on 10/8/17at 21: 02; Admin Dose 5 UNIT; Start 01/17/17 at 20:00 Tacrolimus (Prograf) 2 mg Q12 PO Last administered on 01/27/17 08:44; Admin Dose 2 MG; Start 01/18/17 at 09:00 IV Flush (NS 10 ml) 10 ml PRN PRN IV IV PROTOCOL; Start 01/19/17 at 12:30 Acetaminophen/ Hydrocodone Bitart ([place] (5/325)) 1 tab Q8H PRN PO PAIN Last administered on 01/26/17 20:15; Admin Dose 1 TAB; Start 01/19/17 at 14:30 Benazepril HCl (Lotensin) 10 mg DAILY PO Last administered on 01/27/17 08:46; Admin Dose 10 MG; Start 01/24/17 at 09:00 Metoprolol Tartrate (Lopressor) 50 mg BID PO Last administered on 01/27/17 08: 43; Admin Dose 50 MG; Start 01/23/17 at 21:00 LES GILLILAND Jan 27, 2017 18:31
--- NOTE | 2017-01-27 19:18 | CONS ---
Date/Time of Note Date/Time of Note DATE: 01/27/17 TIME: 19:15 Assessment/Plan Assessment/Plan Chief Complaint/Hosp Course IMP: 1.Vcv-qj-[id number] test 10/2016 with no ischemia/only scar/NL EF. Negative trop x 3. 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 Encephalopathy Recc: -Continuer asa/plavix -Continue benazepril/BB at current doses and follow BP closely -Local wound care -Continue abx's and f/u cx data -Continue immuonosuppresives Problems: Consultation Date/Type/Reason Admit Date/Time Dec 26, 2016 at 13:22 Initial Consult Date 12/27/16 Type of Consultation: cardiology Reason for Consultation HTN Referring Provider: LES GILLILAND Exam/Review of Systems Vital Signs Vitals Vital Signs Date Time Temp Pulse Resp B/P Pulse Ox O2 Delivery O2 Flow Rate FiO2 01/27/17 14:43 97.3 70 18 141/72 100 Intake and Output 01/26/17 01/26/17 01/27/17 15:00 23:00 07:00 Intake Total 890 ml 280 ml Balance 890 ml 280 ml Exam Review of Systems: CONSTITUTIONAL: No fevers, chills. PULMONARY: No sob CARDIOVASCULAR: No chest pain/palpitations GASTROINTESTINAL: No nausea/vomiting. GENITOURINARY: No hematuria/dysuria. MUSCULOSKELETAL: mild pain in foot PSYCHIATRIC: The patient denies depression. NEUROLOGIC: No weakness Constitutional: alert Psych: no complaints Head: normocephalic ENMT: mucosa pink and moist Neck: jvd (8 cm water), supple Respiratory: diminished breath sounds (at bases/B) Cardiovascular: regular rate and rhythm Gastrointestinal: non-tender, soft Musculoskeletal: muscle tone (normal), other (s/p LLE amputation) Extremities: edema (none) Neurological: lethargic Results Result Diagram: 01/27/17 0600 01/27/17 0600 Results 24 hrs Laboratory Tests Test 01/26/17 20:58 01/27/17 06:00 01/27/17 07:54 01/27/17 11:59 Bedside Glucose 131 97 140 White Blood Count 6.6 Red Blood Count 3.60 #L Hemoglobin 9.8 #L Hematocrit 30.4 #L Mean Corpuscular Volume 84.4 Mean Corpuscular Hemoglobin 27.2 L Mean Corpuscular Hemoglobin Concent 32.2 Red Cell Distribution Width 15.8 H Platelet Count 334 Mean Platelet Volume 10.9 H Neutrophils % 77.4 H Lymphocytes % 9.5 L Monocytes % 11.3 H Eosinophils % 1.1 Basophils % 0.5 Nucleated Red Blood Cells % 0.0 Neutrophils # 5.1 Lymphocytes # 0.6 L Monocytes # 0.7 Eosinophils # 0.1 Basophils # 0.0 Nucleated Red Blood Cells # 0.0 Sodium Level 133 L Potassium Level 4.3 Chloride Level 102 Carbon Dioxide Level 27 Anion Gap 8 Blood Urea Nitrogen 15 Creatinine 0.58 Glucose Level 91 Calcium Level 9.3 Test 01/27/17 17:33 Bedside Glucose 123 Medications Medications Current Medications Aspirin (Halfprin) 81 mg DAILY PO Last administered on 01/27/17 08:45; Admin Dose 81 MG; Start 12/27/16 at 09:00 Clopidogrel Bisulfate (plaVIX) 75 mg DAILY PO Last administered on 01/27/17 08 :47; Admin Dose 75 MG; Start 12/27/16 at 09:00 Famotidine (Pepcid) 40 mg HS PO Last administered on 01/26/17 20:59; Admin Dose 40 MG; Start 12/26/16 at 21:00 Folic Acid (Folic Acid) 1 mg DAILY PO Last administered on 01/27/17 08:44; Admin Dose 1 MG; Start 12/27/16 at 09:00 Gabapentin (Neurontin) 100 mg TID PO Last administered on 01/27/17 12:49; Admin Dose 100 MG; Start 12/26/16 at 21:00 Mycophenolate Mofetil (Cellcept) 1,000 mg BID PO Last administered on 08:46; Admin Dose 1,000 MG; Start 12/26/16 at 21:00 Pantoprazole (Protonix Tab) 40 mg DAILY@06 PO Last administered on 01/27/17 06 :06; Admin Dose 40 MG; Start 12/27/16 at 06:00 Diagnostic Test (Pha) (Accu-Chek) 1 ea 02 XX ; Start 12/27/16 at 02:00 Miscellaneous Information 1 ea NOTE XX ; Start 12/26/16 at 14:30 Glucose (Glutose) 15 gm Q15M PRN PO DECREASED GLUCOSE; Start 12/26/16 at 14:30 Glucose (Glutose) 22.5 gm Q15M PRN PO DECREASED GLUCOSE; Start 12/26/16 at 14:30 Dextrose (D50w Syringe) 25 ml Q15M PRN IV DECREASED GLUCOSE; Start 12/26/16 at 14:30 Dextrose (D50w Syringe) 50 ml Q15M PRN IV DECREASED GLUCOSE; Start 12/26/16 at 14:30 Glucagon (Glucagen) 1 mg Q15M PRN IM DECREASED GLUCOSE; Start 12/26/16 at 14:30 Glucose (Glutose) 15 gm Q15M PRN BUCCAL DECREASED GLUCOSE; Start 12/26/16 at 14: 30 Cholecalciferol (Vitamin D) 1,000 unit DAILY PO Last administered on 01/27/17 08:43; Admin Dose 1,000 UNIT; Start 12/28/16 at 09:00 Ondansetron HCl (Zofran Inj) 4 mg Q6H PRN IV NAUSEA AND/OR VOMITING Last administered on 01/15/17 09:50; Admin Dose 4 MG; Start 01/01/17 at 10:00 Haloperidol (Haldol) 2 mg Q4H PRN IM AGITATION/ANXIETY Last administered on 22:46; Admin Dose 2 MG; Start 01/08/17 at 01:30 Acetaminophen (Tylenol Tab) 650 mg Q6H PRN PO PAIN AND OR ELEVATED TEMP Last administered on 01/16/17 10:25; Admin Dose 650 MG; Start 01/08/17 at 22:30 Quetiapine Fumarate (Seroquel) 25 mg QHS PRN PO agitation/hallucinations Last administered on 01/09/17 22:15; Admin Dose 25 MG; Start 01/09/17 at 21:00 Morphine Sulfate (morphine) 2 mg Q8H PRN IV PAIN LEVEL 6-10 Last administered on 01/19/17 16:02; Admin Dose 2 MG; Start 01/11/17 at 14:00 Clonidine (Catapres) 0.1 mg Q6H PRN PO hypertension Last administered on 02:41; Admin Dose 0.1 MG; Start 01/14/17 at 02:30 Hydralazine HCl (Apresoline) 25 mg Q6H PRN IV ELEVATED SYSTOLIC BP Last administered on 01/14/17 07:04; Admin Dose 25 MG; Start 01/14/17 at 07:00 Insulin Glargine (Lantus) 5 unit DAILY@20 SC Last administered on 01/26/17 21: 02; Admin Dose 5 UNIT; Start 01/17/17 at 20:00 Tacrolimus (Prograf) 2 mg Q12 PO Last administered on 01/27/17 08:44; Admin Dose 2 MG; Start 01/18/17 at 09:00 IV Flush (NS 10 ml) 10 ml PRN PRN IV IV PROTOCOL; Start 01/19/17 at 12:30 Acetaminophen/ Hydrocodone Bitart ([place] (5/325)) 1 tab Q8H PRN PO PAIN Last administered on 01/26/17 20:15; Admin Dose 1 TAB; Start 01/19/17 at 14:30 Benazepril HCl (Lotensin) 10 mg DAILY PO Last administered on 01/27/17 08:46; Admin Dose 10 MG; Start 01/24/17 at 09:00 Metoprolol Tartrate (Lopressor) 50 mg BID PO Last administered on 01/27/17 08: 43; Admin Dose 50 MG; Start 01/23/17 at 21:00 TIMOTHY CORTES Jan 27, 2017 19:18
[2017-01-27 20:52] VITALS: BP 146/70; RESP 18
[2017-01-27] MEDS: INSULIN GLARGINE [LANtus] 3 ML PEN SC SCH (21:05)
[2017-01-27] MEDS: FAMOTIDINE 20 MG TAB PO SCH (21:08)
[2017-01-27] MEDS: HYDROCODONE/APAP (5/325) TAB PO PRN (21:09)
[2017-01-28] MEDS: ACCU-CHEK XX SCH (02:00)
[2017-01-28 03:05] VITALS: BP 125/70; RESP 18
[2017-01-28] MEDS: PANTOPRAZOLE (EC) 40 MG TAB PO SCH (05:09)
[2017-01-28 06:01] LABS: CALCIUM 9.5 mg/dl (8.4-10.2); CREATININE 0.62 mg/dl (0.44-1.00); POTASSIUM 4.4 mmol/L (3.5-5.1)
[2017-01-28 08:00] VITALS: BP 124/65; RESP 16
[2017-01-28] MEDS: INSULIN ASPART [NOVOLOG] 3 ML PEN SC SCH ×4 (08:00→20:47)
[2017-01-28] MEDS: HYDROCODONE/APAP (5/325) TAB PO PRN ×2 (09:25→20:50)
[2017-01-28] MEDS: BENAZEPRIL 10 MG TAB PO SCH (09:26)
[2017-01-28] MEDS: MYCOPHENOLATE 250 MG CAP PO SCH ×2 (09:26→20:47)
[2017-01-28] MEDS: TACROLIMUS 1 MG CAP PO SCH ×2 (09:26→20:48)
[2017-01-28] MEDS: CLOPIDOGREL 75 MG TAB PO SCH (09:26)
[2017-01-28] MEDS: CHOLECALCIFEROL 1,000 UNIT TAB PO SCH (09:26)
[2017-01-28] MEDS: ASPIRIN (EC) 81 MG TAB PO SCH (09:26)
[2017-01-28] MEDS: GABAPENTIN 100 MG CAP PO SCH ×3 (09:27→20:49)
[2017-01-28] MEDS: METOPROLOL 50 MG TAB PO SCH ×2 (09:27→20:49)
[2017-01-28] MEDS: FOLIC ACID 1 MG TAB PO SCH (09:27)
--- NOTE | 2017-01-28 09:47 | CONS ---
Date/Time of Note Date/Time of Note DATE: 01/28/17 TIME: 09:45 Assessment/Plan Assessment/Plan Additional Assessment/Plan 1.Qnc-ba-qrsmeh test 10/2016 with no ischemia/only scar/NL EF. Negative trop x 3. 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 Encephalopathy - much improved Consultation Date/Type/Reason Admit Date/Time Dec 26, 2016 at 13:22 Initial Consult Date 12/27/16 Type of Consultation: cardiology Referring Provider: LES GILLILAND 24 HR Interval Summary Free Text/Dictation NO acute events - BP stable - will monitor - off tele now Pain well controlled overall ROS: No fever, no chills, no nausea, no vomiting, no diarrhea/constipation No recent weight changes No chest pain, no PND, no orthopnea No dizziness, blurred vision No thirst, no heat or cold intolerance Exam/Review of Systems Vital Signs Vitals Vital Signs Date Time Temp Pulse Resp B/P Pulse Ox O2 Delivery O2 Flow Rate FiO2 01/28/17 03:05 97.4 65 18 125/70 99 Intake and Output 01/27/17 01/27/17 01/28/17 15:00 23:00 07:00 Intake Total 870 ml 360 ml Balance 870 ml 360 ml Exam General: WN/WD/NAD, AOx 3 HEENT: Unicetric/atraumatic/EOMI (follows commands) NECK: JVD elevated, no thyromegaly Lymph: no lymphadenopathy HEART: regular with no S3, II/ systolic murmur at apex LUNGS: Coarse sounds ABD: soft, NT, ND, +BS : Intact Neuro: non focal SKIN: chronic changes EXT: amputation Results Result Diagram: 01/27/17 0600 01/28/17 0523 Results 24 hrs Laboratory Tests Test 01/27/17 11:59 01/27/17 17:33 01/27/17 21:03 01/28/17 05:23 Bedside Glucose 140 123 104 Sodium Level 131 L Potassium Level 4.4 Chloride Level 100 Carbon Dioxide Level 27 Anion Gap 8 Blood Urea Nitrogen 15 Creatinine 0.62 Glucose Level 80 Calcium Level 9.5 Test 01/28/17 07:59 Bedside Glucose 85 Medications Medications Current Medications Aspirin (Halfprin) 81 mg DAILY PO Last administered on 01/28/17 09:26; Admin Dose 81 MG; Start 12/27/16 at 09:00 Clopidogrel Bisulfate (plaVIX) 75 mg DAILY PO Last administered on 01/28/17 09:26; Admin Dose 75 MG; Start 12/27/16 at 09:00 Famotidine (Pepcid) 40 mg HS PO Last administered on 01/27/17 21:08; Admin Dose 40 MG; Start 12/26/16 at 21:00 Folic Acid (Folic Acid) 1 mg DAILY PO Last administered on 01/28/17 09:27; Admin Dose 1 MG; Start 12/27/16 at 09:00 Gabapentin (Neurontin) 100 mg TID PO Last administered on 01/28/17 09:27; Admin Dose 100 MG; Start 12/26/16 at 21:00 Mycophenolate Mofetil (Cellcept) 1,000 mg BID PO Last administered on 09:26; Admin Dose 1,000 MG; Start 12/26/16 at 21:00 Pantoprazole (Protonix Tab) 40 mg DAILY@06 PO Last administered on 01/28/17 05:09; Admin Dose 40 MG; Start 12/27/16 at 06:00 Diagnostic Test (Pha) (Accu-Chek) 1 ea 02 XX ; Start 12/27/16 at 02:00 Miscellaneous Information 1 ea NOTE XX ; Start 12/26/16 at 14:30 Glucose (Glutose) 15 gm Q15M PRN PO DECREASED GLUCOSE; Start 12/26/16 at 14:30 Glucose (Glutose) 22.5 gm Q15M PRN PO DECREASED GLUCOSE; Start 12/26/16 at 14:30 Dextrose (D50w Syringe) 25 ml Q15M PRN IV DECREASED GLUCOSE; Start 12/26/16 at 14:30 Dextrose (D50w Syringe) 50 ml Q15M PRN IV DECREASED GLUCOSE; Start 12/26/16 at 14:30 Glucagon (Glucagen) 1 mg Q15M PRN IM DECREASED GLUCOSE; Start 12/26/16 at 14:30 Glucose (Glutose) 15 gm Q15M PRN BUCCAL DECREASED GLUCOSE; Start 12/26/16 at 14: 30 Cholecalciferol (Vitamin D) 1,000 unit DAILY PO Last administered on 09:26; Admin Dose 1,000 UNIT; Start 12/28/16 at 09:00 Ondansetron HCl (Zofran Inj) 4 mg Q6H PRN IV NAUSEA AND/OR VOMITING Last administered on 01/15/17 09:50; Admin Dose 4 MG; Start 01/01/17 at 10:00 Haloperidol (Haldol) 2 mg Q4H PRN IM AGITATION/ANXIETY Last administered on 22:46; Admin Dose 2 MG; Start 01/08/17 at 01:30 Acetaminophen (Tylenol Tab) 650 mg Q6H PRN PO PAIN AND OR ELEVATED TEMP Last administered on 01/16/17 10:25; Admin Dose 650 MG; Start 01/08/17 at 22:30 Quetiapine Fumarate (Seroquel) 25 mg QHS PRN PO agitation/hallucinations Last administered on 01/09/17 22:15; Admin Dose 25 MG; Start 01/09/17 at 21:00 Morphine Sulfate (morphine) 2 mg Q8H PRN IV PAIN LEVEL 6-10 Last administered on 01/19/17 16:02; Admin Dose 2 MG; Start 01/11/17 at 14:00 Clonidine (Catapres) 0.1 mg Q6H PRN PO hypertension Last administered on 02:41; Admin Dose 0.1 MG; Start 01/14/17 at 02:30 Hydralazine HCl (Apresoline) 25 mg Q6H PRN IV ELEVATED SYSTOLIC BP Last administered on 01/14/17 07:04; Admin Dose 25 MG; Start 01/14/17 at 07:00 Insulin Glargine (Lantus) 5 unit DAILY@20 SC Last administered on 01/27/17 21: 05; Admin Dose 5 UNIT; Start 01/17/17 at 20:00 Tacrolimus (Prograf) 2 mg Q12 PO Last administered on 01/28/17 09:26; Admin Dose 2 MG; Start 01/18/17 at 09:00 IV Flush (NS 10 ml) 10 ml PRN PRN IV IV PROTOCOL; Start 01/19/17 at 12:30 Acetaminophen/ Hydrocodone Bitart ([place] (5/325)) 1 tab Q8H PRN PO PAIN Last administered on 01/28/17 09:25; Admin Dose 1 TAB; Start 01/19/17 at 14:30 Benazepril HCl (Lotensin) 10 mg DAILY PO Last administered on 01/28/17 09:26 ; Admin Dose 10 MG; Start 01/24/17 at 09:00 Metoprolol Tartrate (Lopressor) 50 mg BID PO Last administered on 01/28/17 09 :27; Admin Dose 50 MG; Start 01/23/17 at 21:00 MIRELLA MOSER MD Jan 28, 2017 09:47
[2017-01-28 14:00] VITALS: BP 100/56; RESP 18
--- NOTE | 2017-01-28 17:23 | CONS ---
Date/Time of Note Date/Time of Note DATE: 01/28/17 TIME: 17:22 Assessment/Plan Assessment/Plan Additional Assessment/Plan 1. 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 h/o donor kidney transplant in 2009 at [facility], currently on immunosuppression with Prograf, CellCept 4. 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 History of hypertension. 6. History of diabetes mellitus. 7. History of previous left upper extremity arteriovenous fistula. 8. Hyponatremia due to hypovolemic hyponatremia post op 9. -CT chest+ abd+pelvis with and without contrast negative for mass/LAD/ Malignancy Plan: continue Current immunosuppression Prograf and cellcept, Cr normal s/p Left AKA, off IV abx now, continue lotensin for now Cr and Elecfrolyes stable as per Last labs. ID following will follow up Consultation Date/Type/Reason Admit Date/Time Dec 26, 2016 at 13:22 Initial Consult Date 12/27/16 Type of Consultation: NEPHROLOGY Referring Provider: LES GILLILAND 24 HR Interval Summary Free Text/Dictation c/o pain in left side, cr normal, BP stable Exam/Review of Systems Vital Signs Vitals Vital Signs Date Time Temp Pulse Resp B/P Pulse Ox O2 Delivery O2 Flow Rate FiO2 01/28/17 14:00 98.6 76 18 100/56 96 Intake and Output 01/27/17 01/27/17 01/28/17 15:00 23:00 07:00 Intake Total 870 ml 360 ml Balance 870 ml 360 ml Exam GEN: fragile elderly woman who is awake in no distress. HEENT: Head atraumatic, normocephalic. Sclerae anicteric. NECK: Supple. CHEST: Rise symmetrical. Breath sounds clear. HEART: S1, S2. ABDOMEN: Soft, bowel sounds present. left BKA dressing clean Results Result Diagram: 01/27/17 0600 01/28/17 0523 Results 24 hrs Laboratory Tests Test 01/27/17 17:33 01/27/17 21:03 01/28/17 05:23 01/28/17 07:59 Bedside Glucose 123 104 85 Sodium Level 131 L Potassium Level 4.4 Chloride Level 100 Carbon Dioxide Level 27 Anion Gap 8 Blood Urea Nitrogen 15 Creatinine 0.62 Glucose Level 80 Calcium Level 9.5 Test 01/28/17 12:16 01/28/17 17:02 Bedside Glucose 153 101 Medications Medications Current Medications Aspirin (Halfprin) 81 mg DAILY PO Last administered on 01/28/17 09:26; Admin Dose 81 MG; Start 12/27/16 at 09:00 Clopidogrel Bisulfate (plaVIX) 75 mg DAILY PO Last administered on 01/28/17 09:26; Admin Dose 75 MG; Start 12/27/16 at 09:00 Famotidine (Pepcid) 40 mg HS PO Last administered on 01/27/17 21:08; Admin Dose 40 MG; Start 12/26/16 at 21:00 Folic Acid (Folic Acid) 1 mg DAILY PO Last administered on 01/28/17 09:27; Admin Dose 1 MG; Start 12/27/16 at 09:00 Gabapentin (Neurontin) 100 mg TID PO Last administered on 01/28/17 12:25; Admin Dose 100 MG; Start 12/26/16 at 21:00 Mycophenolate Mofetil (Cellcept) 1,000 mg BID PO Last administered on 09:26; Admin Dose 1,000 MG; Start 12/26/16 at 21:00 Pantoprazole (Protonix Tab) 40 mg DAILY@06 PO Last administered on 01/28/17 05:09; Admin Dose 40 MG; Start 12/27/16 at 06:00 Diagnostic Test (Pha) (Accu-Chek) 1 ea 02 XX ; Start 12/27/16 at 02:00 Miscellaneous Information 1 ea NOTE XX ; Start 12/26/16 at 14:30 Glucose (Glutose) 15 gm Q15M PRN PO DECREASED GLUCOSE; Start 12/26/16 at 14:30 Glucose (Glutose) 22.5 gm Q15M PRN PO DECREASED GLUCOSE; Start 12/26/16 at 14:30 Dextrose (D50w Syringe) 25 ml Q15M PRN IV DECREASED GLUCOSE; Start 12/26/16 at 14:30 Dextrose (D50w Syringe) 50 ml Q15M PRN IV DECREASED GLUCOSE; Start 12/26/16 at 14:30 Glucagon (Glucagen) 1 mg Q15M PRN IM DECREASED GLUCOSE; Start 12/26/16 at 14:30 Glucose (Glutose) 15 gm Q15M PRN BUCCAL DECREASED GLUCOSE; Start 12/26/16 at 14: 30 Cholecalciferol (Vitamin D) 1,000 unit DAILY PO Last administered on 09:26; Admin Dose 1,000 UNIT; Start 12/28/16 at 09:00 Ondansetron HCl (Zofran Inj) 4 mg Q6H PRN IV NAUSEA AND/OR VOMITING Last administered on 01/15/17 09:50; Admin Dose 4 MG; Start 01/01/17 at 10:00 Haloperidol (Haldol) 2 mg Q4H PRN IM AGITATION/ANXIETY Last administered on 22:46; Admin Dose 2 MG; Start 01/08/17 at 01:30 Acetaminophen (Tylenol Tab) 650 mg Q6H PRN PO PAIN AND OR ELEVATED TEMP Last administered on 01/16/17 10:25; Admin Dose 650 MG; Start 01/08/17 at 22:30 Quetiapine Fumarate (Seroquel) 25 mg QHS PRN PO agitation/hallucinations Last administered on 01/09/17 22:15; Admin Dose 25 MG; Start 01/09/17 at 21:00 Morphine Sulfate (morphine) 2 mg Q8H PRN IV PAIN LEVEL 6-10 Last administered on 01/19/17 16:02; Admin Dose 2 MG; Start 01/11/17 at 14:00 Clonidine (Catapres) 0.1 mg Q6H PRN PO hypertension Last administered on 02:41; Admin Dose 0.1 MG; Start 01/14/17 at 02:30 Hydralazine HCl (Apresoline) 25 mg Q6H PRN IV ELEVATED SYSTOLIC BP Last administered on 01/14/17 07:04; Admin Dose 25 MG; Start 01/14/17 at 07:00 Insulin Glargine (Lantus) 5 unit DAILY@20 SC Last administered on 01/27/17 21: 05; Admin Dose 5 UNIT; Start 01/17/17 at 20:00 Tacrolimus (Prograf) 2 mg Q12 PO Last administered on 01/28/17 09:26; Admin Dose 2 MG; Start 01/18/17 at 09:00 IV Flush (NS 10 ml) 10 ml PRN PRN IV IV PROTOCOL; Start 01/19/17 at 12:30 Acetaminophen/ Hydrocodone Bitart ([place] (5/325)) 1 tab Q8H PRN PO PAIN Last administered on 01/28/17 09:25; Admin Dose 1 TAB; Start 01/19/17 at 14:30 Benazepril HCl (Lotensin) 10 mg DAILY PO Last administered on 01/28/17 09:26 ; Admin Dose 10 MG; Start 01/24/17 at 09:00 Metoprolol Tartrate (Lopressor) 50 mg BID PO Last administered on 01/28/17 09 :27; Admin Dose 50 MG; Start 01/23/17 at 21:00 RAMON KEMP MD Jan 28, 2017 17:23
--- NOTE | 2017-01-28 18:04 | PN ---
Date/Time of Note Date/Time of Note DATE: 01/28/17 TIME: 18:02 Assessment/Plan VTE Prophylaxis VTE Prophylaxis Intervention: SCD's Lines/Catheters IV Catheter Type (from Nrsg): PICC Line Central line still needed: Yes Urinary Cath still in place: No Assessment/Plan Chief Complaint/Hosp Course No acute events overnight, pain is adequately controlled with [place] Assessment/Plan - Acute encephalopathy, resolved. CT brain is negative for any acute pathology. 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 S/p left AKA 01/[address] Valencia, vascular surgery. - Diabetes mellitus type II. Continue Lantus and NovoLog. - History of kidney transplant in 2009, on immunosuppressive therapy. - Hypertension. Continue metoprolol, benazepril. 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 - Anemia of chronic kidney disease. Further recommendations based on clinical course. Plan of care discussed with Dr. Cohen Problems: Exam/Review of Systems Vital Signs Vitals Vital Signs Date Time Temp Pulse Resp B/P Pulse Ox O2 Delivery O2 Flow Rate FiO2 01/28/17 14:00 98.6 76 18 100/56 96 Intake and Output 01/27/17 01/27/17 01/28/17 14:59 22:59 06:59 Intake Total 870 ml 360 ml Balance 870 ml 360 ml Exam Constitutional: awake, alert Neck: supple Respiratory: clear to auscultation Cardiovascular: nl pulses Gastrointestinal: non-tender, soft Extremities: other (S/p LAKA) Results Result Diagram: 01/27/17 0600 01/28/17 0523 Results 24 hrs Laboratory Tests Test 01/27/17 21:03 01/28/17 05:23 01/28/17 07:59 01/28/17 12:16 Bedside Glucose 104 85 153 Sodium Level 131 L Potassium Level 4.4 Chloride Level 100 Carbon Dioxide Level 27 Anion Gap 8 Blood Urea Nitrogen 15 Creatinine 0.62 Glucose Level 80 Calcium Level 9.5 Test 01/28/17 17:02 Bedside Glucose 101 Medications Medications Current Medications Aspirin (Halfprin) 81 mg DAILY PO Last administered on 01/28/17t 09:26; Admin Dose 81 MG; Start 12/27/16 at 09:00 Clopidogrel Bisulfate (plaVIX) 75 mg DAILY PO Last administered on 01/28/17 09:26; Admin Dose 75 MG; Start 12/27/16 at 09:00 Famotidine (Pepcid) 40 mg HS PO Last administered on 01/27/17 21:08; Admin Dose 40 MG; Start 12/26/16 at 21:00 Folic Acid (Folic Acid) 1 mg DAILY PO Last administered on 01/28/17 09:27; Admin Dose 1 MG; Start 12/27/16 at 09:00 Gabapentin (Neurontin) 100 mg TID PO Last administered on 01/28/17 12:25; Admin Dose 100 MG; Start 12/26/16 at 21:00 Mycophenolate Mofetil (Cellcept) 1,000 mg BID PO Last administered on 09:26; Admin Dose 1,000 MG; Start 12/26/16 at 21:00 Pantoprazole (Protonix Tab) 40 mg DAILY@06 PO Last administered on 01/28/17 05:09; Admin Dose 40 MG; Start 12/27/16 at 06:00 Diagnostic Test (Pha) (Accu-Chek) 1 ea 02 XX ; Start 12/27/16 at 02:00 Miscellaneous Information 1 ea NOTE XX ; Start 12/26/16 at 14:30 Glucose (Glutose) 15 gm Q15M PRN PO DECREASED GLUCOSE; Start 12/26/16 at 14:30 Glucose (Glutose) 22.5 gm Q15M PRN PO DECREASED GLUCOSE; Start 12/26/16 at 14:30 Dextrose (D50w Syringe) 25 ml Q15M PRN IV DECREASED GLUCOSE; Start 12/26/16 at 14:30 Dextrose (D50w Syringe) 50 ml Q15M PRN IV DECREASED GLUCOSE; Start 12/26/16 at 14:30 Glucagon (Glucagen) 1 mg Q15M PRN IM DECREASED GLUCOSE; Start 12/26/16 at 14:30 Glucose (Glutose) 15 gm Q15M PRN BUCCAL DECREASED GLUCOSE; Start 12/26/16 at 14: 30 Cholecalciferol (Vitamin D) 1,000 unit DAILY PO Last administered on 09:26; Admin Dose 1,000 UNIT; Start 12/28/16 at 09:00 Ondansetron HCl (Zofran Inj) 4 mg Q6H PRN IV NAUSEA AND/OR VOMITING Last administered on 01/15/17 09:50; Admin Dose 4 MG; Start 01/01/17 at 10:00 Haloperidol (Haldol) 2 mg Q4H PRN IM AGITATION/ANXIETY Last administered on 22:46; Admin Dose 2 MG; Start 01/08/17 at 01:30 Acetaminophen (Tylenol Tab) 650 mg Q6H PRN PO PAIN AND OR ELEVATED TEMP Last administered on 01/16/17 10:25; Admin Dose 650 MG; Start 01/08/17 at 22:30 Quetiapine Fumarate (Seroquel) 25 mg QHS PRN PO agitation/hallucinations Last administered on 01/09/17 22:15; Admin Dose 25 MG; Start 01/09/17 at 21:00 Morphine Sulfate (morphine) 2 mg Q8H PRN IV PAIN LEVEL 6-10 Last administered on 01/19/17 16:02; Admin Dose 2 MG; Start 01/11/17 at 14:00 Clonidine (Catapres) 0.1 mg Q6H PRN PO hypertension Last administered on 02:41; Admin Dose 0.1 MG; Start 01/14/17 at 02:30 Hydralazine HCl (Apresoline) 25 mg Q6H PRN IV ELEVATED SYSTOLIC BP Last administered on 01/14/17 07:04; Admin Dose 25 MG; Start 01/14/17 at 07:00 Insulin Glargine (Lantus) 5 unit DAILY@20 SC Last administered on 01/27/17 21: 05; Admin Dose 5 UNIT; Start 01/17/17 at 20:00 Tacrolimus (Prograf) 2 mg Q12 PO Last administered on 01/28/17 09:26; Admin Dose 2 MG; Start 01/18/17 at 09:00 IV Flush (NS 10 ml) 10 ml PRN PRN IV IV PROTOCOL; Start 01/19/17 at 12:30 Acetaminophen/ Hydrocodone Bitart ([place] (5/325)) 1 tab Q8H PRN PO PAIN Last administered on 01/28/17 09:25; Admin Dose 1 TAB; Start 01/19/17 at 14:30 Benazepril HCl (Lotensin) 10 mg DAILY PO Last administered on 01/28/17 09:26 ; Admin Dose 10 MG; Start 01/24/17 at 09:00 Metoprolol Tartrate (Lopressor) 50 mg BID PO Last administered on 01/28/17 09 :27; Admin Dose 50 MG; Start 01/23/17 at 21:00 LES GILLILAND Jan 28, 2017 18:04
[2017-01-28 20:21] VITALS: BP 105/55; RESP 20
[2017-01-28] MEDS: FAMOTIDINE 20 MG TAB PO SCH (20:47)
[2017-01-28] MEDS: INSULIN GLARGINE [LANtus] 3 ML PEN SC SCH (20:48)
[2017-01-29] MEDS: ACCU-CHEK XX SCH (02:00)
[2017-01-29 02:59] VITALS: BP 104/55; RESP 22
[2017-01-29 05:18] LABS: CALCIUM 9.2 mg/dl (8.4-10.2); CREATININE 0.69 mg/dl (0.44-1.00); POTASSIUM 4.3 mmol/L (3.5-5.1)
[2017-01-29] MEDS: PANTOPRAZOLE (EC) 40 MG TAB PO SCH (05:59)
[2017-01-29 08:00] VITALS: BP 132/62; RESP 16
[2017-01-29] MEDS: INSULIN ASPART [NOVOLOG] 3 ML PEN SC SCH ×4 (08:00→20:46)
[2017-01-29] MEDS: BENAZEPRIL 10 MG TAB PO SCH (08:43)
[2017-01-29] MEDS: MYCOPHENOLATE 250 MG CAP PO SCH ×2 (08:43→20:47)
[2017-01-29] MEDS: METOPROLOL 50 MG TAB PO SCH ×2 (08:44→20:47)
[2017-01-29] MEDS: CHOLECALCIFEROL 1,000 UNIT TAB PO SCH (08:44)
[2017-01-29] MEDS: ASPIRIN (EC) 81 MG TAB PO SCH (08:44)
[2017-01-29] MEDS: FOLIC ACID 1 MG TAB PO SCH (08:44)
[2017-01-29] MEDS: GABAPENTIN 100 MG CAP PO SCH ×3 (08:44→20:47)
[2017-01-29] MEDS: CLOPIDOGREL 75 MG TAB PO SCH (08:44)
[2017-01-29] MEDS: HYDROCODONE/APAP (5/325) TAB PO PRN ×2 (08:44→21:59)
[2017-01-29] MEDS: TACROLIMUS 1 MG CAP PO SCH ×2 (08:44→20:47)
[2017-01-29 14:00] VITALS: BP 132/64; RESP 20
--- NOTE | 2017-01-29 16:46 | CONS ---
Date/Time of Note Date/Time of Note DATE: 01/29/17 TIME: 16:43 Assessment/Plan Assessment/Plan Chief Complaint/Hosp Course IMP: 1.[id number] test 10/2016 with no ischemia/only scar/NL EF. Negative trop x 3. 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 Encephalopathy Recc: -Continue asa/plavix -Continue benazepril/BB at current doses and follow BP closely -Local wound care -Continue abx's and f/u cx data -Continue immuonosuppresives Problems: Consultation Date/Type/Reason Admit Date/Time Dec 26, 2016 at 13:22 Initial Consult Date 12/27/16 Type of Consultation: cardiology Reason for Consultation HTN Referring Provider: LES GILLILAND Exam/Review of Systems Vital Signs Vitals Vital Signs Date Time Temp Pulse Resp B/P Pulse Ox O2 Delivery O2 Flow Rate FiO2 01/29/17 14:00 97.8 76 20 132/64 96 Intake and Output 01/28/17 01/28/17 01/29/17 15:00 23:00 07:00 Intake Total 720 ml 420 ml Balance 720 ml 420 ml Exam Review of Systems: CONSTITUTIONAL: No fevers, chills. PULMONARY: No sob CARDIOVASCULAR: No chest pain/palpitations GASTROINTESTINAL: No nausea/vomiting. GENITOURINARY: No hematuria/dysuria. MUSCULOSKELETAL: mild pain in leg/foot PSYCHIATRIC: The patient denies depression. NEUROLOGIC: lethargic Constitutional: other (sleeping, arousable) Psych: no complaints Head: normocephalic Eyes: nl conjunctiva ENMT: mucosa pink and moist Neck: jvd (8 cm water) Respiratory: diminished breath sounds (at bases/B) Cardiovascular: regular rate and rhythm Gastrointestinal: non-tender, soft Musculoskeletal: muscle weakness (generalized) Extremities: other (s/p LLE amputation, RLE covered by dressing) Results Result Diagram: 01/27/17 0600 01/29/17 0430 Results 24 hrs Laboratory Tests Test 01/28/17 17:02 01/28/17 20:45 01/29/17 04:30 01/29/17 05:35 Bedside Glucose 101 99 Sodium Level 130 L Potassium Level 4.3 Chloride Level 100 Carbon Dioxide Level 26 Anion Gap 8 Blood Urea Nitrogen 25 H Creatinine 0.69 Glucose Level 87 Calcium Level 9.2 Lab Scanned Report BLOOD TRANSFUSION Test 01/29/17 07:59 01/29/17 11:51 Bedside Glucose 97 141 Medications Medications Current Medications Aspirin (Halfprin) 81 mg DAILY PO Last administered on 01/29/17 08:44; Admin Dose 81 MG; Start 12/27/16 at 09:00 Clopidogrel Bisulfate (plaVIX) 75 mg DAILY PO Last administered on 01/29/17 08:44; Admin Dose 75 MG; Start 12/27/16 at 09:00 Famotidine (Pepcid) 40 mg HS PO Last administered on 01/28/17 20:47; Admin Dose 40 MG; Start 12/26/16 at 21:00 Folic Acid (Folic Acid) 1 mg DAILY PO Last administered on 01/29/17 08:44; Admin Dose 1 MG; Start 12/27/16 at 09:00 Gabapentin (Neurontin) 100 mg TID PO Last administered on 01/29/17 12:04; Admin Dose 100 MG; Start 12/26/16 at 21:00 Mycophenolate Mofetil (Cellcept) 1,000 mg BID PO Last administered on 08:43; Admin Dose 1,000 MG; Start 12/26/16 at 21:00 Pantoprazole (Protonix Tab) 40 mg DAILY@06 PO Last administered on 01/29/17 05:59; Admin Dose 40 MG; Start 12/27/16 at 06:00 Diagnostic Test (Pha) (Accu-Chek) 1 ea 02 XX ; Start 12/27/16 at 02:00 Miscellaneous Information 1 ea NOTE XX ; Start 12/26/16 at 14:30 Glucose (Glutose) 15 gm Q15M PRN PO DECREASED GLUCOSE; Start 12/26/16 at 14:30 Glucose (Glutose) 22.5 gm Q15M PRN PO DECREASED GLUCOSE; Start 12/26/16 at 14:30 Dextrose (D50w Syringe) 25 ml Q15M PRN IV DECREASED GLUCOSE; Start 12/26/16 at 14:30 Dextrose (D50w Syringe) 50 ml Q15M PRN IV DECREASED GLUCOSE; Start 12/26/16 at 14:30 Glucagon (Glucagen) 1 mg Q15M PRN IM DECREASED GLUCOSE; Start 12/26/16 at 14:30 Glucose (Glutose) 15 gm Q15M PRN BUCCAL DECREASED GLUCOSE; Start 12/26/16 at 14: 30 Cholecalciferol (Vitamin D) 1,000 unit DAILY PO Last administered on 08:44; Admin Dose 1,000 UNIT; Start 12/28/16 at 09:00 Ondansetron HCl (Zofran Inj) 4 mg Q6H PRN IV NAUSEA AND/OR VOMITING Last administered on 01/15/17 09:50; Admin Dose 4 MG; Start 01/01/17 at 10:00 Haloperidol (Haldol) 2 mg Q4H PRN IM AGITATION/ANXIETY Last administered on 22:46; Admin Dose 2 MG; Start 01/08/17 at 01:30 Acetaminophen (Tylenol Tab) 650 mg Q6H PRN PO PAIN AND OR ELEVATED TEMP Last administered on 01/16/17 10:25; Admin Dose 650 MG; Start 01/08/17 at 22:30 Quetiapine Fumarate (Seroquel) 25 mg QHS PRN PO agitation/hallucinations Last administered on 01/09/17 22:15; Admin Dose 25 MG; Start 01/09/17 at 21:00 Morphine Sulfate (morphine) 2 mg Q8H PRN IV PAIN LEVEL 6-10 Last administered on 01/19/17 16:02; Admin Dose 2 MG; Start 01/11/17 at 14:00 Clonidine (Catapres) 0.1 mg Q6H PRN PO hypertension Last administered on 02:41; Admin Dose 0.1 MG; Start 01/14/17 at 02:30 Hydralazine HCl (Apresoline) 25 mg Q6H PRN IV ELEVATED SYSTOLIC BP Last administered on 01/14/17 07:04; Admin Dose 25 MG; Start 01/14/17 at 07:00 Insulin Glargine (Lantus) 5 unit DAILY@20 SC Last administered on 01/28/17 20 :48; Admin Dose 5 UNIT; Start 01/17/17 at 20:00 Tacrolimus (Prograf) 2 mg Q12 PO Last administered on 01/29/17 08:44; Admin Dose 2 MG; Start 01/18/17 at 09:00 IV Flush (NS 10 ml) 10 ml PRN PRN IV IV PROTOCOL; Start 01/19/17 at 12:30 Acetaminophen/ Hydrocodone Bitart ([place] (5/325)) 1 tab Q8H PRN PO PAIN Last administered on 01/29/17 08:44; Admin Dose 1 TAB; Start 01/19/17 at 14:30 Benazepril HCl (Lotensin) 10 mg DAILY PO Last administered on 01/29/17 08:43 ; Admin Dose 10 MG; Start 01/24/17 at 09:00 Metoprolol Tartrate (Lopressor) 50 mg BID PO Last administered on 01/29/17 08 :44; Admin Dose 50 MG; Start 01/23/17 at 21:00 TIMOTHY CORTES Jan 29, 2017 16:46
--- NOTE | 2017-01-29 17:34 | PN ---
Date/Time of Note Date/Time of Note DATE: 01/29/17 TIME: 17:31 Assessment/Plan VTE Prophylaxis VTE Prophylaxis Intervention: SCD's Lines/Catheters IV Catheter Type (from Nrsg): PICC Line Central line still needed: Yes Urinary Cath still in place: No Assessment/Plan Chief Complaint/Hosp Course Patient remains hemodynamically stable pain is well controlled, acute rehabilitation evaluation versus intermediate facility placement for further physical therapy. Assessment/Plan - Acute encephalopathy, resolved. CT brain is negative for any acute pathology. 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 S/p left AKA 01/[address] Valencia, vascular surgery. - Diabetes mellitus type II. Continue Lantus and NovoLog. - History of kidney transplant in 2009, on immunosuppressive therapy. - Hypertension. Continue metoprolol, benazepril. 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 - Anemia of chronic kidney disease. Further recommendations based on clinical course. Plan of care discussed with Dr. Cohen Problems: Exam/Review of Systems Vital Signs Vitals Vital Signs Date Time Temp Pulse Resp B/P Pulse Ox O2 Delivery O2 Flow Rate FiO2 01/29/17 14:00 97.8 76 20 132/64 96 Intake and Output 01/28/17 01/28/17 01/29/17 15:00 23:00 07:00 Intake Total 720 ml 420 ml Balance 720 ml 420 ml Exam Constitutional: awake, alert Neck: supple Respiratory: clear to auscultation Cardiovascular: nl pulses Gastrointestinal: non-tender, soft Extremities: other (S/p LAKA) Results Result Diagram: 01/27/17 0600 01/29/17 0430 Results 24 hrs Laboratory Tests Test 01/28/17 20:45 01/29/17 04:30 01/29/17 05:35 01/29/17 07:59 Bedside Glucose 99 97 Sodium Level 130 L Potassium Level 4.3 Chloride Level 100 Carbon Dioxide Level 26 Anion Gap 8 Blood Urea Nitrogen 25 H Creatinine 0.69 Glucose Level 87 Calcium Level 9.2 Lab Scanned Report BLOOD TRANSFUSION Test 01/29/17 11:51 01/29/17 17:10 Bedside Glucose 141 106 Medications Medications Current Medications Aspirin (Halfprin) 81 mg DAILY PO Last administered on 01/29/17t 08:44; Admin Dose 81 MG; Start 12/27/16 at 09:00 Clopidogrel Bisulfate (plaVIX) 75 mg DAILY PO Last administered on 01/29/17 08:44; Admin Dose 75 MG; Start 12/27/16 at 09:00 Famotidine (Pepcid) 40 mg HS PO Last administered on 01/28/17 20:47; Admin Dose 40 MG; Start 12/26/16 at 21:00 Folic Acid (Folic Acid) 1 mg DAILY PO Last administered on 01/29/17 08:44; Admin Dose 1 MG; Start 12/27/16 at 09:00 Gabapentin (Neurontin) 100 mg TID PO Last administered on 01/29/17 12:04; Admin Dose 100 MG; Start 12/26/16 at 21:00 Mycophenolate Mofetil (Cellcept) 1,000 mg BID PO Last administered on 08:43; Admin Dose 1,000 MG; Start 12/26/16 at 21:00 Pantoprazole (Protonix Tab) 40 mg DAILY@06 PO Last administered on 01/29/17 05:59; Admin Dose 40 MG; Start 12/27/16 at 06:00 Diagnostic Test (Pha) (Accu-Chek) 1 ea 02 XX ; Start 12/27/16 at 02:00 Miscellaneous Information 1 ea NOTE XX ; Start 12/26/16 at 14:30 Glucose (Glutose) 15 gm Q15M PRN PO DECREASED GLUCOSE; Start 12/26/16 at 14:30 Glucose (Glutose) 22.5 gm Q15M PRN PO DECREASED GLUCOSE; Start 12/26/16 at 14:30 Dextrose (D50w Syringe) 25 ml Q15M PRN IV DECREASED GLUCOSE; Start 12/26/16 at 14:30 Dextrose (D50w Syringe) 50 ml Q15M PRN IV DECREASED GLUCOSE; Start 12/26/16 at 14:30 Glucagon (Glucagen) 1 mg Q15M PRN IM DECREASED GLUCOSE; Start 12/26/16 at 14:30 Glucose (Glutose) 15 gm Q15M PRN BUCCAL DECREASED GLUCOSE; Start 12/26/16 at 14: 30 Cholecalciferol (Vitamin D) 1,000 unit DAILY PO Last administered on 08:44; Admin Dose 1,000 UNIT; Start 12/28/16 at 09:00 Ondansetron HCl (Zofran Inj) 4 mg Q6H PRN IV NAUSEA AND/OR VOMITING Last administered on 01/15/17 09:50; Admin Dose 4 MG; Start 01/01/17 at 10:00 Haloperidol (Haldol) 2 mg Q4H PRN IM AGITATION/ANXIETY Last administered on 22:46; Admin Dose 2 MG; Start 01/08/17 at 01:30 Acetaminophen (Tylenol Tab) 650 mg Q6H PRN PO PAIN AND OR ELEVATED TEMP Last administered on 01/16/17 10:25; Admin Dose 650 MG; Start 01/08/17 at 22:30 Quetiapine Fumarate (Seroquel) 25 mg QHS PRN PO agitation/hallucinations Last administered on 01/09/17 22:15; Admin Dose 25 MG; Start 01/09/17 at 21:00 Morphine Sulfate (morphine) 2 mg Q8H PRN IV PAIN LEVEL 6-10 Last administered on 01/19/17 16:02; Admin Dose 2 MG; Start 01/11/17 at 14:00 Clonidine (Catapres) 0.1 mg Q6H PRN PO hypertension Last administered on 02:41; Admin Dose 0.1 MG; Start 01/14/17 at 02:30 Hydralazine HCl (Apresoline) 25 mg Q6H PRN IV ELEVATED SYSTOLIC BP Last administered on 01/14/17 07:04; Admin Dose 25 MG; Start 01/14/17 at 07:00 Insulin Glargine (Lantus) 5 unit DAILY@20 SC Last administered on 01/28/17 20 :48; Admin Dose 5 UNIT; Start 01/17/17 at 20:00 Tacrolimus (Prograf) 2 mg Q12 PO Last administered on 01/29/17 08:44; Admin Dose 2 MG; Start 01/18/17 at 09:00 IV Flush (NS 10 ml) 10 ml PRN PRN IV IV PROTOCOL; Start 01/19/17 at 12:30 Acetaminophen/ Hydrocodone Bitart ([place] (5/325)) 1 tab Q8H PRN PO PAIN Last administered on 01/29/17 08:44; Admin Dose 1 TAB; Start 01/19/17 at 14:30 Benazepril HCl (Lotensin) 10 mg DAILY PO Last administered on 01/29/17 08:43 ; Admin Dose 10 MG; Start 01/24/17 at 09:00 Metoprolol Tartrate (Lopressor) 50 mg BID PO Last administered on 01/29/17 08 :44; Admin Dose 50 MG; Start 01/23/17 at 21:00 LES GILLILAND Jan 29, 2017 17:33
[2017-01-29] MEDS ORDERED: SOD CHLORIDE 0.9% 1,000 ML IV SCH (19:00)
--- NOTE | 2017-01-29 19:00 | CONS ---
Date/Time of Note Date/Time of Note DATE: 01/29/17 TIME: 18:56 Assessment/Plan Assessment/Plan Additional Assessment/Plan 1. 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 h/o donor kidney transplant in [address] [facility], currently on immunosuppression with Prograf, CellCept 4. 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 History of hypertension. 6. History of diabetes mellitus. 7. History of previous left upper extremity arteriovenous fistula. 8. Hyponatremia due to hypovolemic hyponatremia post op 9. -CT chest+ abd+pelvis with and without contrast negative for mass/LAD/ Malignancy Plan: continue Current immunosuppression Prograf and cellcept, Cr normal s/p Left AKA, off IV abx now, continue lotensin for now Na dropped to 130- I will give NS at 75 cc/hr x 1 liter then stop Crnormal ID following will follow up Consultation Date/Type/Reason Admit Date/Time Dec 26, 2016 at 13:22 Initial Consult Date 12/27/16 Type of Consultation: NEPHROLOGY Referring Provider: LES GILLILAND 24 HR Interval Summary Free Text/Dictation Na dropped to 130, Bp stable , cr normal Exam/Review of Systems Vital Signs Vitals Vital Signs Date Time Temp Pulse Resp B/P Pulse Ox O2 Delivery O2 Flow Rate FiO2 01/29/17 14:00 97.8 76 20 132/64 96 Intake and Output 01/28/17 01/28/17 01/29/17 15:00 23:00 07:00 Intake Total 720 ml 420 ml Balance 720 ml 420 ml Exam GEN: fragile elderly woman who is awake in no distress. HEENT: Head atraumatic, normocephalic. Sclerae anicteric. NECK: Supple. CHEST: Rise symmetrical. Breath sounds clear. HEART: S1, S2. ABDOMEN: Soft, bowel sounds present. left BKA dressing clean Results Result Diagram: 01/27/17 0600 01/29/17 0430 Results 24 hrs Laboratory Tests Test 01/28/17 20:45 01/29/17 04:30 01/29/17 05:35 01/29/17 07:59 Bedside Glucose 99 97 Sodium Level 130 L Potassium Level 4.3 Chloride Level 100 Carbon Dioxide Level 26 Anion Gap 8 Blood Urea Nitrogen 25 H Creatinine 0.69 Glucose Level 87 Calcium Level 9.2 Lab Scanned Report BLOOD TRANSFUSION Test 01/29/17 11:51 01/29/17 17:10 Bedside Glucose 141 106 Medications Medications Current Medications Aspirin (Halfprin) 81 mg DAILY PO Last administered on 01/29/17 08:44; Admin Dose 81 MG; Start 12/27/16 at 09:00 Clopidogrel Bisulfate (plaVIX) 75 mg DAILY PO Last administered on 01/29/17 08:44; Admin Dose 75 MG; Start 12/27/16 at 09:00 Famotidine (Pepcid) 40 mg HS PO Last administered on 01/28/17 20:47; Admin Dose 40 MG; Start 12/26/16 at 21:00 Folic Acid (Folic Acid) 1 mg DAILY PO Last administered on 01/29/17 08:44; Admin Dose 1 MG; Start 12/27/16 at 09:00 Gabapentin (Neurontin) 100 mg TID PO Last administered on 01/29/17 12:04; Admin Dose 100 MG; Start 12/26/16 at 21:00 Mycophenolate Mofetil (Cellcept) 1,000 mg BID PO Last administered on 08:43; Admin Dose 1,000 MG; Start 12/26/16 at 21:00 Pantoprazole (Protonix Tab) 40 mg DAILY@06 PO Last administered on 01/29/17 05:59; Admin Dose 40 MG; Start 12/27/16 at 06:00 Diagnostic Test (Pha) (Accu-Chek) 1 ea 02 XX ; Start 12/27/16 at 02:00 Miscellaneous Information 1 ea NOTE XX ; Start 12/26/16 at 14:30 Glucose (Glutose) 15 gm Q15M PRN PO DECREASED GLUCOSE; Start 12/26/16 at 14:30 Glucose (Glutose) 22.5 gm Q15M PRN PO DECREASED GLUCOSE; Start 12/26/16 at 14:30 Dextrose (D50w Syringe) 25 ml Q15M PRN IV DECREASED GLUCOSE; Start 12/26/16 at 14:30 Dextrose (D50w Syringe) 50 ml Q15M PRN IV DECREASED GLUCOSE; Start 12/26/16 at 14:30 Glucagon (Glucagen) 1 mg Q15M PRN IM DECREASED GLUCOSE; Start 12/26/16 at 14:30 Glucose (Glutose) 15 gm Q15M PRN BUCCAL DECREASED GLUCOSE; Start 12/26/16 at 14: 30 Cholecalciferol (Vitamin D) 1,000 unit DAILY PO Last administered on 08:44; Admin Dose 1,000 UNIT; Start 12/28/16 at 09:00 Ondansetron HCl (Zofran Inj) 4 mg Q6H PRN IV NAUSEA AND/OR VOMITING Last administered on 01/15/17 09:50; Admin Dose 4 MG; Start 01/01/17 at 10:00 Haloperidol (Haldol) 2 mg Q4H PRN IM AGITATION/ANXIETY Last administered on 22:46; Admin Dose 2 MG; Start 01/08/17 at 01:30 Acetaminophen (Tylenol Tab) 650 mg Q6H PRN PO PAIN AND OR ELEVATED TEMP Last administered on 01/16/17 10:25; Admin Dose 650 MG; Start 01/08/17 at 22:30 Quetiapine Fumarate (Seroquel) 25 mg QHS PRN PO agitation/hallucinations Last administered on 01/09/17 22:15; Admin Dose 25 MG; Start 01/09/17 at 21:00 Morphine Sulfate (morphine) 2 mg Q8H PRN IV PAIN LEVEL 6-10 Last administered on 01/19/17 16:02; Admin Dose 2 MG; Start 01/11/17 at 14:00 Clonidine (Catapres) 0.1 mg Q6H PRN PO hypertension Last administered on 02:41; Admin Dose 0.1 MG; Start 01/14/17 at 02:30 Hydralazine HCl (Apresoline) 25 mg Q6H PRN IV ELEVATED SYSTOLIC BP Last administered on 01/14/17 07:04; Admin Dose 25 MG; Start 01/14/17 at 07:00 Insulin Glargine (Lantus) 5 unit DAILY@20 SC Last administered on 01/28/17 20 :48; Admin Dose 5 UNIT; Start 01/17/17 at 20:00 Tacrolimus (Prograf) 2 mg Q12 PO Last administered on 01/29/17 08:44; Admin Dose 2 MG; Start 01/18/17 at 09:00 IV Flush (NS 10 ml) 10 ml PRN PRN IV IV PROTOCOL; Start 01/19/17 at 12:30 Acetaminophen/ Hydrocodone Bitart ([place] (5/325)) 1 tab Q8H PRN PO PAIN Last administered on 01/29/17 08:44; Admin Dose 1 TAB; Start 01/19/17 at 14:30 Benazepril HCl (Lotensin) 10 mg DAILY PO Last administered on 01/29/17 08:43 ; Admin Dose 10 MG; Start 01/24/17 at 09:00 Metoprolol Tartrate (Lopressor) 50 mg BID PO Last administered on 01/29/17 08 :44; Admin Dose 50 MG; Start 01/23/17 at 21:00 RAMON KEMP MD Jan 29, 2017 19:00
[2017-01-29 20:15] VITALS: BP 121/57; RESP 21
[2017-01-29] MEDS: FAMOTIDINE 20 MG TAB PO SCH (20:46)
[2017-01-29] MEDS: INSULIN GLARGINE [LANtus] 3 ML PEN SC SCH (20:49)
[2017-01-30] MEDS: ACCU-CHEK XX SCH ×2 (01:31→21:01)
[2017-01-30 03:01] VITALS: BP 113/56; RESP 20
[2017-01-30 03:14] VITALS: BP 135/68; RESP 18
[2017-01-30 05:22] LABS: BASOPHILS % 0.4 % (0.0-2.0); EOSINOPHILS # 0.1 10^3/ul (0.0-0.5); EOSINOPHILS % 1.9 % (0.0-7.0); HEMATOCRIT 27.7 % (37.0-47.0); LYMPHOCYTES % 21.6 % (15.0-51.0); MEAN CORPUSCULAR HEMOGLOBIN 27.9 pg (29.0-33.0); MEAN CORPUSCULAR HGB CONC 32.5 g/dl (32.0-37.0); MEAN CORPUSCULAR VOLUME 85.8 fl (82.0-101.0); MEAN PLATELET VOLUME 11.1 fl (7.4-10.4); MONOCYTE # 0.8 10^3/ul (0.3-0.9); MONOCYTES % 16.9 % (0.0-11.0); NEUTROPHIL # 2.8 10^3/ul (1.6-7.5); NEUTROPHILS % 58.8 % (39.0-77.0); PLATELET COUNT 290 10^3/UL (140-415); RED BLOOD COUNT 3.23 10^6/ul (4.20-5.40); RED CELL DISTRIBUTION WIDTH 14.8 % (11.5-14.5); WHITE BLOOD COUNT 4.7 10^3/ul (4.8-10.8)
[2017-01-30 05:44] LABS: CALCIUM 8.7 mg/dl (8.4-10.2); CREATININE 0.67 mg/dl (0.44-1.00); POTASSIUM 4.4 mmol/L (3.5-5.1)
[2017-01-30] MEDS: PANTOPRAZOLE (EC) 40 MG TAB PO SCH (06:09)
[2017-01-30 07:45] VITALS: BP 135/65; RESP 16
[2017-01-30] MEDS: INSULIN ASPART [NOVOLOG] 3 ML PEN SC SCH ×4 (08:00→21:00)
[2017-01-30] MEDS: BENAZEPRIL 10 MG TAB PO SCH (08:03)
[2017-01-30] MEDS: GABAPENTIN 100 MG CAP PO SCH ×3 (08:03→21:01)
[2017-01-30] MEDS: CLOPIDOGREL 75 MG TAB PO SCH (08:03)
[2017-01-30] MEDS: FOLIC ACID 1 MG TAB PO SCH (08:03)
[2017-01-30] MEDS: TACROLIMUS 1 MG CAP PO SCH ×2 (08:03→21:01)
[2017-01-30] MEDS: ASPIRIN (EC) 81 MG TAB PO SCH (08:03)
[2017-01-30] MEDS: CHOLECALCIFEROL 1,000 UNIT TAB PO SCH (08:03)
[2017-01-30] MEDS: MYCOPHENOLATE 250 MG CAP PO SCH ×2 (08:03→21:00)
[2017-01-30] MEDS: METOPROLOL 50 MG TAB PO SCH ×2 (08:04→21:01)
[2017-01-30] MEDS: HYDROCODONE/APAP (5/325) TAB PO PRN (11:13)
--- NOTE | 2017-01-30 11:46 | CONS ---
Date/Time of Note Date/Time of Note DATE: 01/30/17 TIME: 11:43 Assessment/Plan Assessment/Plan Additional Assessment/Plan 1. 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 h/o donor kidney transplant [place] [address] [facility], currently on immunosuppression with Prograf, CellCept 4. 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 History of hypertension. 6. History of diabetes mellitus. 7. History of previous left upper extremity arteriovenous fistula. 8. Hyponatremia due to hypovolemic hyponatremia post op 9. -CT chest+ abd+pelvis with and without contrast negative for mass/LAD/ Malignancy Plan: continue Current immunosuppression Prograf and cellcept, Cr normal, Na improved to 132 with 1 L NS yesterday, will give another 1 liter NS today s/p Left AKA, off IV abx now, continue lotensin for now ID following will follow up Consultation Date/Type/Reason Admit Date/Time Dec 26, 2016 at 13:22 Initial Consult Date 12/27/16 Type of Consultation: NEPHROLOGY Referring Provider: LES GILLILAND 24 HR Interval Summary Free Text/Dictation Na 132, Bp stable, afebrile, Cr stable, Exam/Review of Systems Vital Signs Vitals Vital Signs Date Time Temp Pulse Resp B/P Pulse Ox O2 Delivery O2 Flow Rate FiO2 01/30/17 07:45 97.5 72 16 135/65 99 Intake and Output 01/29/17 01/29/17 01/30/17 15:00 23:00 07:00 Intake Total 680 ml 900 ml Balance 680 ml 900 ml Exam GEN: fragile elderly woman who is awake in no distress. HEENT: Head atraumatic, normocephalic. Sclerae anicteric. NECK: Supple. CHEST: Rise symmetrical. Breath sounds clear. HEART: S1, S2. ABDOMEN: Soft, bowel sounds present. left BKA dressing clean Results Result Diagram: 01/30/17 0437 01/30/17 0437 Results 24 hrs Laboratory Tests Test 01/29/17 11:51 01/29/17 17:10 01/29/17 20:46 01/30/17 04:37 Bedside Glucose 141 106 108 White Blood Count 4.7 #L Red Blood Count 3.23 L Hemoglobin 9.0 L Hematocrit 27.7 L Mean Corpuscular Volume 85.8 Mean Corpuscular Hemoglobin 27.9 L Mean Corpuscular Hemoglobin Concent 32.5 Red Cell Distribution Width 14.8 H Platelet Count 290 Mean Platelet Volume 11.1 H Neutrophils % 58.8 Lymphocytes % 21.6 Monocytes % 16.9 H Eosinophils % 1.9 Basophils % 0.4 Nucleated Red Blood Cells % 0.0 Neutrophils # 2.8 Lymphocytes # 1.0 Monocytes # 0.8 Eosinophils # 0.1 Basophils # 0.0 Nucleated Red Blood Cells # 0.0 Sodium Level 132 L Potassium Level 4.4 Chloride Level 104 Carbon Dioxide Level 23 Anion Gap 9 Blood Urea Nitrogen 26 H Creatinine 0.67 Glucose Level 75 Calcium Level 8.7 Test 01/30/17 07:55 01/30/17 11:14 Bedside Glucose 85 118 Medications Medications Current Medications Aspirin (Halfprin) 81 mg DAILY PO Last administered on 01/30/17 08:03; Admin Dose 81 MG; Start 12/27/16 at 09:00 Clopidogrel Bisulfate (plaVIX) 75 mg DAILY PO Last administered on 01/30/17 08:03; Admin Dose 75 MG; Start 12/27/16 at 09:00 Famotidine (Pepcid) 40 mg HS PO Last administered on 01/29/17 20:46; Admin Dose 40 MG; Start 12/26/16 at 21:00 Folic Acid (Folic Acid) 1 mg DAILY PO Last administered on 01/30/17 08:03; Admin Dose 1 MG; Start 12/27/16 at 09:00 Gabapentin (Neurontin) 100 mg TID PO Last administered on 01/30/17 08:03; Admin Dose 100 MG; Start 12/26/16 at 21:00 Mycophenolate Mofetil (Cellcept) 1,000 mg BID PO Last administered on 08:03; Admin Dose 1,000 MG; Start 12/26/16 at 21:00 Pantoprazole (Protonix Tab) 40 mg DAILY@06 PO Last administered on 01/30/17 06:09; Admin Dose 40 MG; Start 12/27/16 at 06:00 Diagnostic Test (Pha) (Accu-Chek) 1 ea 02 XX ; Start 12/27/16 at 02:00 Miscellaneous Information 1 ea NOTE XX ; Start 12/26/16 at 14:30 Glucose (Glutose) 15 gm Q15M PRN PO DECREASED GLUCOSE; Start 12/26/16 at 14:30 Glucose (Glutose) 22.5 gm Q15M PRN PO DECREASED GLUCOSE; Start 12/26/16 at 14:30 Dextrose (D50w Syringe) 25 ml Q15M PRN IV DECREASED GLUCOSE; Start 12/26/16 at 14:30 Dextrose (D50w Syringe) 50 ml Q15M PRN IV DECREASED GLUCOSE; Start 12/26/16 at 14:30 Glucagon (Glucagen) 1 mg Q15M PRN IM DECREASED GLUCOSE; Start 12/26/16 at 14:30 Glucose (Glutose) 15 gm Q15M PRN BUCCAL DECREASED GLUCOSE; Start 12/26/16 at 14: 30 Cholecalciferol (Vitamin D) 1,000 unit DAILY PO Last administered on 08:03; Admin Dose 1,000 UNIT; Start 12/28/16 at 09:00 Ondansetron HCl (Zofran Inj) 4 mg Q6H PRN IV NAUSEA AND/OR VOMITING Last administered on 01/15/17 09:50; Admin Dose 4 MG; Start 01/01/17 at 10:00 Haloperidol (Haldol) 2 mg Q4H PRN IM AGITATION/ANXIETY Last administered on 22:46; Admin Dose 2 MG; Start 01/08/17 at 01:30 Acetaminophen (Tylenol Tab) 650 mg Q6H PRN PO PAIN AND OR ELEVATED TEMP Last administered on 01/16/17 10:25; Admin Dose 650 MG; Start 01/08/17 at 22:30 Quetiapine Fumarate (Seroquel) 25 mg QHS PRN PO agitation/hallucinations Last administered on 01/09/17 22:15; Admin Dose 25 MG; Start 01/09/17 at 21:00 Morphine Sulfate (morphine) 2 mg Q8H PRN IV PAIN LEVEL 6-10 Last administered on 01/19/17 16:02; Admin Dose 2 MG; Start 01/11/17 at 14:00 Clonidine (Catapres) 0.1 mg Q6H PRN PO hypertension Last administered on 02:41; Admin Dose 0.1 MG; Start 01/14/17 at 02:30 Hydralazine HCl (Apresoline) 25 mg Q6H PRN IV ELEVATED SYSTOLIC BP Last administered on 01/14/17 07:04; Admin Dose 25 MG; Start 01/14/17 at 07:00 Insulin Glargine (Lantus) 5 unit DAILY@20 SC Last administered on 01/29/17 20 :49; Admin Dose 5 UNIT; Start 01/17/17 at 20:00 Tacrolimus (Prograf) 2 mg Q12 PO Last administered on 01/30/17 08:03; Admin Dose 2 MG; Start 01/18/17 at 09:00 IV Flush (NS 10 ml) 10 ml PRN PRN IV IV PROTOCOL Last administered on 08:06; Admin Dose 10 ML; Start 01/19/17 at 12:30 Acetaminophen/ Hydrocodone Bitart ([place] (5/325)) 1 tab Q8H PRN PO PAIN Last administered on 01/30/17 11:13; Admin Dose 1 TAB; Start 01/19/17 at 14:30 Benazepril HCl (Lotensin) 10 mg DAILY PO Last administered on 01/30/17 08:03 ; Admin Dose 10 MG; Start 01/24/17 at 09:00 Metoprolol Tartrate (Lopressor) 50 mg BID PO Last administered on 01/30/17 08 :04; Admin Dose 50 MG; Start 01/23/17 at 21:00 RAMON KEMP MD Jan 30, 2017 11:45
[2017-01-30] MEDS: SOD CHLORIDE 0.9% 1,000 ML IV SCH (11:54)
[2017-01-30 14:06] VITALS: BP 149/67; RESP 16
--- NOTE | 2017-01-30 17:37 | CONS ---
Date/Time of Note Date/Time of Note DATE: 01/30/17 TIME: 17:34 Assessment/Plan Assessment/Plan Chief Complaint/Hosp Course IMP: 1.Aya-ms-lqbuil test 10/2016 with no ischemia/only scar/NL EF. Negative trop x 3. 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 Encephalopathy 7. Hyponatremia Recc: -Continue asa/plavix -Continue benazepril/BB at current doses and follow BP closely -Local wound care -Continue abx's and f/u cx data -Continue immuonosuppresives -Follow volume status clsoely on IVF hydration Problems: Consultation Date/Type/Reason Admit Date/Time Dec 26, 2016 at 13:22 Initial Consult Date 12/27/16 Type of Consultation: cardiology Reason for Consultation HTN Referring Provider: LES GILLILAND Exam/Review of Systems Vital Signs Vitals Vital Signs Date Time Temp Pulse Resp B/P Pulse Ox O2 Delivery O2 Flow Rate FiO2 01/30/17 14:06 97.8 69 16 149/67 96 Intake and Output 01/29/17 01/29/17 01/30/17 15:00 23:00 07:00 Intake Total 680 ml 900 ml Balance 680 ml 900 ml Exam Review of Systems: CONSTITUTIONAL: No fevers, chills. PULMONARY: No sob CARDIOVASCULAR: No chest pain/palpitations GASTROINTESTINAL: No nausea/vomiting. GENITOURINARY: No hematuria/dysuria. MUSCULOSKELETAL: mild pain in leg PSYCHIATRIC: The patient denies depression. NEUROLOGIC: No weakness Constitutional: other (sleeping, arousable) Psych: no complaints Head: normocephalic ENMT: mucosa pink and moist Neck: jvd (9 cm water), supple Respiratory: diminished breath sounds (at bases/B) Cardiovascular: regular rate and rhythm Gastrointestinal: non-tender, soft Musculoskeletal: muscle weakness (mild generalized) Extremities: edema (none) Results Result Diagram: 01/30/17 0437 01/30/17 0437 Results 24 hrs Laboratory Tests Test 01/29/17 20:46 01/30/17 04:37 01/30/17 07:55 01/30/17 11:14 Bedside Glucose 108 85 118 White Blood Count 4.7 #L Red Blood Count 3.23 L Hemoglobin 9.0 L Hematocrit 27.7 L Mean Corpuscular Volume 85.8 Mean Corpuscular Hemoglobin 27.9 L Mean Corpuscular Hemoglobin Concent 32.5 Red Cell Distribution Width 14.8 H Platelet Count 290 Mean Platelet Volume 11.1 H Neutrophils % 58.8 Lymphocytes % 21.6 Monocytes % 16.9 H Eosinophils % 1.9 Basophils % 0.4 Nucleated Red Blood Cells % 0.0 Neutrophils # 2.8 Lymphocytes # 1.0 Monocytes # 0.8 Eosinophils # 0.1 Basophils # 0.0 Nucleated Red Blood Cells # 0.0 Sodium Level 132 L Potassium Level 4.4 Chloride Level 104 Carbon Dioxide Level 23 Anion Gap 9 Blood Urea Nitrogen 26 H Creatinine 0.67 Glucose Level 75 Calcium Level 8.7 Medications Medications Current Medications Aspirin (Halfprin) 81 mg DAILY PO Last administered on 01/30/17 08:03; Admin Dose 81 MG; Start 12/27/16 at 09:00 Clopidogrel Bisulfate (plaVIX) 75 mg DAILY PO Last administered on 01/30/17 08:03; Admin Dose 75 MG; Start 12/27/16 at 09:00 Famotidine (Pepcid) 40 mg HS PO Last administered on 01/29/17 20:46; Admin Dose 40 MG; Start 12/26/16 at 21:00 Folic Acid (Folic Acid) 1 mg DAILY PO Last administered on 01/30/17 08:03; Admin Dose 1 MG; Start 12/27/16 at 09:00 Gabapentin (Neurontin) 100 mg TID PO Last administered on 01/30/17 12:57; Admin Dose 100 MG; Start 12/26/16 at 21:00 Mycophenolate Mofetil (Cellcept) 1,000 mg BID PO Last administered on 08:03; Admin Dose 1,000 MG; Start 12/26/16 at 21:00 Pantoprazole (Protonix Tab) 40 mg DAILY@06 PO Last administered on 01/30/17 06:09; Admin Dose 40 MG; Start 12/27/16 at 06:00 Diagnostic Test (Pha) (Accu-Chek) 1 ea 02 XX ; Start 12/27/16 at 02:00 Miscellaneous Information 1 ea NOTE XX ; Start 12/26/16 at 14:30 Glucose (Glutose) 15 gm Q15M PRN PO DECREASED GLUCOSE; Start 12/26/16 at 14:30 Glucose (Glutose) 22.5 gm Q15M PRN PO DECREASED GLUCOSE; Start 12/26/16 at 14:30 Dextrose (D50w Syringe) 25 ml Q15M PRN IV DECREASED GLUCOSE; Start 12/26/16 at 14:30 Dextrose (D50w Syringe) 50 ml Q15M PRN IV DECREASED GLUCOSE; Start 12/26/16 at 14:30 Glucagon (Glucagen) 1 mg Q15M PRN IM DECREASED GLUCOSE; Start 12/26/16 at 14:30 Glucose (Glutose) 15 gm Q15M PRN BUCCAL DECREASED GLUCOSE; Start 12/26/16 at 14: 30 Cholecalciferol (Vitamin D) 1,000 unit DAILY PO Last administered on 08:03; Admin Dose 1,000 UNIT; Start 12/28/16 at 09:00 Ondansetron HCl (Zofran Inj) 4 mg Q6H PRN IV NAUSEA AND/OR VOMITING Last administered on 01/15/17 09:50; Admin Dose 4 MG; Start 01/01/17 at 10:00 Haloperidol (Haldol) 2 mg Q4H PRN IM AGITATION/ANXIETY Last administered on 22:46; Admin Dose 2 MG; Start 01/08/17 at 01:30 Acetaminophen (Tylenol Tab) 650 mg Q6H PRN PO PAIN AND OR ELEVATED TEMP Last administered on 01/16/17 10:25; Admin Dose 650 MG; Start 01/08/17 at 22:30 Quetiapine Fumarate (Seroquel) 25 mg QHS PRN PO agitation/hallucinations Last administered on 01/09/17 22:15; Admin Dose 25 MG; Start 01/09/17 at 21:00 Morphine Sulfate (morphine) 2 mg Q8H PRN IV PAIN LEVEL 6-10 Last administered on 01/19/17 16:02; Admin Dose 2 MG; Start 01/11/17 at 14:00 Clonidine (Catapres) 0.1 mg Q6H PRN PO hypertension Last administered on 02:41; Admin Dose 0.1 MG; Start 01/14/17 at 02:30 Hydralazine HCl (Apresoline) 25 mg Q6H PRN IV ELEVATED SYSTOLIC BP Last administered on 01/14/17 07:04; Admin Dose 25 MG; Start 01/14/17 at 07:00 Insulin Glargine (Lantus) 5 unit DAILY@20 SC Last administered on 01/29/17 20 :49; Admin Dose 5 UNIT; Start 01/17/17 at 20:00 Tacrolimus (Prograf) 2 mg Q12 PO Last administered on 01/30/17 08:03; Admin Dose 2 MG; Start 01/18/17 at 09:00 IV Flush (NS 10 ml) 10 ml PRN PRN IV IV PROTOCOL Last administered on 11:54; Admin Dose 10 ML; Start 01/19/17 at 12:30 Acetaminophen/ Hydrocodone Bitart ([place] (5/325)) 1 tab Q8H PRN PO PAIN Last administered on 01/30/17 11:13; Admin Dose 1 TAB; Start 01/19/17 at 14:30 Benazepril HCl (Lotensin) 10 mg DAILY PO Last administered on 01/30/17 08:03 ; Admin Dose 10 MG; Start 01/24/17 at 09:00 Metoprolol Tartrate 50 mg 50 mg BID PO Last administered on 01/30/17 08:04; Admin Dose 50 MG; Start 01/23/17 at 21:00 Sodium Chloride (NS) 1,000 ml @ 75 mls/hr [id number] IV Last administered on 11:54; Admin Dose 75 MLS/HR; Start 01/30/17 at 12:00 TIMOTHY CORTES Jan 30, 2017 17:37
[2017-01-30 20:00] VITALS: BP 132/64; RESP 20
--- NOTE | 2017-01-30 20:56 | PN ---
Date/Time of Note Date/Time of Note DATE: 01/30/17 TIME: 20:56 Assessment/Plan Lines/Catheters IV Catheter Type (from [facility]): PICC Line Urinary Cath still in place: No Assessment/Plan Assessment/Plan - Acute encephalopathy, resolved. CT brain is negative for any acute pathology. 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 S/p left AKA 01/[address] Valencia, vascular surgery. - Diabetes mellitus type II. Continue Lantus and NovoLog. - History of kidney transplant in 2009, on immunosuppressive therapy. - Hypertension. Continue metoprolol, benazepril. 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 - Anemia of chronic kidney disease. Further recommendations based on clinical course. Plan of care discussed with Dr. Cohen Exam/Review of Systems Vital Signs Vitals Vital Signs Date Time Temp Pulse Resp B/P Pulse Ox O2 Delivery O2 Flow Rate FiO2 01/30/17 14:06 97.8 69 16 149/67 96 Intake and Output 01/29/17 01/29/17 01/30/17 15:00 23:00 07:00 Intake Total 680 ml 900 ml Balance 680 ml 900 ml Results Result Diagram: 01/30/17 0437 01/30/17 0437 Results 24 hrs Laboratory Tests Test 01/30/17 04:37 01/30/17 07:55 01/30/17 11:14 01/30/17 17:25 White Blood Count 4.7 #L Red Blood Count 3.23 L Hemoglobin 9.0 L Hematocrit 27.7 L Mean Corpuscular Volume 85.8 Mean Corpuscular Hemoglobin 27.9 L Mean Corpuscular Hemoglobin Concent 32.5 Red Cell Distribution Width 14.8 H Platelet Count 290 Mean Platelet Volume 11.1 H Neutrophils % 58.8 Lymphocytes % 21.6 Monocytes % 16.9 H Eosinophils % 1.9 Basophils % 0.4 Nucleated Red Blood Cells % 0.0 Neutrophils # 2.8 Lymphocytes # 1.0 Monocytes # 0.8 Eosinophils # 0.1 Basophils # 0.0 Nucleated Red Blood Cells # 0.0 Sodium Level 132 L Potassium Level 4.4 Chloride Level 104 Carbon Dioxide Level 23 Anion Gap 9 Blood Urea Nitrogen 26 H Creatinine 0.67 Glucose Level 75 Calcium Level 8.7 Bedside Glucose 85 118 108 Medications Medications Current Medications Aspirin (Halfprin) 81 mg DAILY PO Last administered on 01/30/17 08:03; Admin Dose 81 MG; Start 12/27/16 at 09:00 Clopidogrel Bisulfate (plaVIX) 75 mg DAILY PO Last administered on 01/30/17 08:03; Admin Dose 75 MG; Start 12/27/16 at 09:00 Famotidine (Pepcid) 40 mg HS PO Last administered on 01/29/17 20:46; Admin Dose 40 MG; Start 12/26/16 at 21:00 Folic Acid (Folic Acid) 1 mg DAILY PO Last administered on 01/30/17 08:03; Admin Dose 1 MG; Start 12/27/16 at 09:00 Gabapentin (Neurontin) 100 mg TID PO Last administered on 01/30/17 12:57; Admin Dose 100 MG; Start 12/26/16 at 21:00 Mycophenolate Mofetil (Cellcept) 1,000 mg BID PO Last administered on 08:03; Admin Dose 1,000 MG; Start 12/26/16 at 21:00 Pantoprazole (Protonix Tab) 40 mg DAILY@06 PO Last administered on 01/30/17 06:09; Admin Dose 40 MG; Start 12/27/16 at 06:00 Diagnostic Test (Pha) (Accu-Chek) 1 ea 02 XX ; Start 12/27/16 at 02:00 Miscellaneous Information 1 ea NOTE XX ; Start 12/26/16 at 14:30 Glucose (Glutose) 15 gm Q15M PRN PO DECREASED GLUCOSE; Start 12/26/16 at 14:30 Glucose (Glutose) 22.5 gm Q15M PRN PO DECREASED GLUCOSE; Start 12/26/16 at 14:30 Dextrose (D50w Syringe) 25 ml Q15M PRN IV DECREASED GLUCOSE; Start 12/26/16 at 14:30 Dextrose (D50w Syringe) 50 ml Q15M PRN IV DECREASED GLUCOSE; Start 12/26/16 at 14:30 Glucagon (Glucagen) 1 mg Q15M PRN IM DECREASED GLUCOSE; Start 12/26/16 at 14:30 Glucose (Glutose) 15 gm Q15M PRN BUCCAL DECREASED GLUCOSE; Start 12/26/16 at 14: 30 Cholecalciferol (Vitamin D) 1,000 unit DAILY PO Last administered on 08:03; Admin Dose 1,000 UNIT; Start 12/28/16 at 09:00 Ondansetron HCl (Zofran Inj) 4 mg Q6H PRN IV NAUSEA AND/OR VOMITING Last administered on 01/15/17 09:50; Admin Dose 4 MG; Start 01/01/17 at 10:00 Haloperidol (Haldol) 2 mg Q4H PRN IM AGITATION/ANXIETY Last administered on 22:46; Admin Dose 2 MG; Start 01/08/17 at 01:30 Acetaminophen (Tylenol Tab) 650 mg Q6H PRN PO PAIN AND OR ELEVATED TEMP Last administered on 01/16/17 10:25; Admin Dose 650 MG; Start 01/08/17 at 22:30 Quetiapine Fumarate (Seroquel) 25 mg QHS PRN PO agitation/hallucinations Last administered on 01/09/17 22:15; Admin Dose 25 MG; Start 01/09/17 at 21:00 Morphine Sulfate (morphine) 2 mg Q8H PRN IV PAIN LEVEL 6-10 Last administered on 01/19/17 16:02; Admin Dose 2 MG; Start 01/11/17 at 14:00 Clonidine (Catapres) 0.1 mg Q6H PRN PO hypertension Last administered on 02:41; Admin Dose 0.1 MG; Start 01/14/17 at 02:30 Hydralazine HCl (Apresoline) 25 mg Q6H PRN IV ELEVATED SYSTOLIC BP Last administered on 01/14/17 07:04; Admin Dose 25 MG; Start 01/14/17 at 07:00 Insulin Glargine (Lantus) 5 unit DAILY@20 SC Last administered on 01/29/17 20 :49; Admin Dose 5 UNIT; Start 01/17/17 at 20:00 Tacrolimus (Prograf) 2 mg Q12 PO Last administered on 01/30/17 08:03; Admin Dose 2 MG; Start 01/18/17 at 09:00 IV Flush (NS 10 ml) 10 ml PRN PRN IV IV PROTOCOL Last administered on 11:54; Admin Dose 10 ML; Start 01/19/17 at 12:30 Acetaminophen/ Hydrocodone Bitart ([place] (5/325)) 1 tab Q8H PRN PO PAIN Last administered on 01/30/17 11:13; Admin Dose 1 TAB; Start 01/19/17 at 14:30 Benazepril HCl (Lotensin) 10 mg DAILY PO Last administered on 01/30/17 08:03 ; Admin Dose 10 MG; Start 01/24/17 at 09:00 Metoprolol Tartrate 50 mg 50 mg BID PO Last administered on 01/30/17 08:04; Admin Dose 50 MG; Start 01/23/17 at 21:00 Sodium Chloride (NS) 1,000 ml @ 75 mls/hr [id number] IV Last administered on 11:54; Admin Dose 75 MLS/HR; Start 01/30/17 at 12:00 TIM BENNETT Jan 30, 2017 20:56
[2017-01-30] MEDS: FAMOTIDINE 20 MG TAB PO SCH (21:00)
[2017-01-30] MEDS: INSULIN GLARGINE [LANtus] 3 ML PEN SC SCH (21:03)
[2017-01-31] MEDS: SOD CHLORIDE 0.9% 1,000 ML IV SCH (01:20)
[2017-01-31 02:00] VITALS: BP 138/60; RESP 20
[2017-01-31] MEDS: PANTOPRAZOLE (EC) 40 MG TAB PO SCH (05:24)
[2017-01-31 07:50] VITALS: BP 155/72; RESP 18
[2017-01-31] MEDS: INSULIN ASPART [NOVOLOG] 3 ML PEN SC SCH ×4 (08:00→21:00)
[2017-01-31] MEDS: TACROLIMUS 1 MG CAP PO SCH ×2 (08:04→22:15)
[2017-01-31] MEDS: MYCOPHENOLATE 250 MG CAP PO SCH ×2 (08:04→22:14)
[2017-01-31] MEDS: GABAPENTIN 100 MG CAP PO SCH ×3 (08:04→22:15)
[2017-01-31] MEDS: CHOLECALCIFEROL 1,000 UNIT TAB PO SCH (08:05)
[2017-01-31] MEDS: ASPIRIN (EC) 81 MG TAB PO SCH (08:05)
[2017-01-31] MEDS: FOLIC ACID 1 MG TAB PO SCH (08:05)
[2017-01-31] MEDS: CLOPIDOGREL 75 MG TAB PO SCH (08:05)
[2017-01-31] MEDS: METOPROLOL 50 MG TAB PO SCH ×2 (10:00→21:00)
[2017-01-31] MEDS: BENAZEPRIL 10 MG TAB PO SCH ×2 (10:00→22:18)
[2017-01-31] MEDS: HYDROCODONE/APAP (5/325) TAB PO PRN ×2 (14:26→22:22)
[2017-01-31 14:30] VITALS: BP 166/79; RESP 16
[2017-01-31 15:00] VITALS: BP 124/75
--- NOTE | 2017-01-31 16:23 | CONS ---
Date/Time of Note Date/Time of Note DATE: 01/31/17 TIME: 16:22 Assessment/Plan Assessment/Plan Additional Assessment/Plan 1. 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 h/o donor kidney transplant in 2009 at [facility], currently on immunosuppression with Prograf, CellCept 4. 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 History of hypertension. 6. History of diabetes mellitus. 7. History of previous left upper extremity arteriovenous fistula. 8. Hyponatremia due to hypovolemic hyponatremia post op 9. -CT chest+ abd+pelvis with and without contrast negative for mass/LAD/ Malignancy Plan: continue Current immunosuppression Prograf and cellcept, no labs today, AM labs ordered s/p Left AKA, off IV abx now, continue lotensin for now ID following will follow up Consultation Date/Type/Reason Admit Date/Time Dec 26, 2016 at 13:22 Initial Consult Date 12/27/16 Type of Consultation: NEPHROLOG Y Referring Provider: LES GILLILAND 24 HR Interval Summary Free Text/Dictation no labs today, BP stable, Exam/Review of Systems Vital Signs Vitals Vital Signs Date Time Temp Pulse Resp B/P Pulse Ox O2 Delivery O2 Flow Rate FiO2 01/31/17 14:30 98.1 73 16 166/79 100 Intake and Output 01/30/17 01/30/17 01/31/17 15:00 23:00 07:00 Intake Total 225 ml 1115 ml 1105 ml Balance 225 ml 1115 ml 1105 ml Exam GEN: fragile elderly woman who is awake in no distress. HEENT: Head atraumatic, normocephalic. Sclerae anicteric. NECK: Supple. CHEST: Rise symmetrical. Breath sounds clear. HEART: S1, S2. ABDOMEN: Soft, bowel sounds present. left BKA dressing clean Results Result Diagram: 01/30/177 01/30/177 Results 24 hrs Laboratory Tests Test 01/30/17 17:25 01/30/17 20:59 01/31/17 08:02 01/31/17 12:17 Bedside Glucose 108 123 94 132 Medications Medications Current Medications Aspirin (Halfprin) 81 mg DAILY PO Last administered on 01/31/17 08:05; Admin Dose 81 MG; Start 12/27/16 at 09:00 Clopidogrel Bisulfate (plaVIX) 75 mg DAILY PO Last administered on 01/31/17 08:05; Admin Dose 75 MG; Start 12/27/16 at 09:00 Famotidine (Pepcid) 40 mg HS PO Last administered on 01/30/17 21:00; Admin Dose 40 MG; Start 12/26/16 at 21:00 Folic Acid (Folic Acid) 1 mg DAILY PO Last administered on 01/31/17 08:05; Admin Dose 1 MG; Start 12/27/16 at 09:00 Gabapentin (Neurontin) 100 mg TID PO Last administered on 01/31/17 12:19; Admin Dose 100 MG; Start 12/26/16 at 21:00 Mycophenolate Mofetil (Cellcept) 1,000 mg BID PO Last administered on 08:04; Admin Dose 1,000 MG; Start 12/26/16 at 21:00 Pantoprazole (Protonix Tab) 40 mg DAILY@06 PO Last administered on 01/31/17 05:24; Admin Dose 40 MG; Start 12/27/16 at 06:00 Diagnostic Test (Pha) (Accu-Chek) 1 ea 02 XX ; Start 12/27/16 at 02:00 Miscellaneous Information 1 ea NOTE XX ; Start 12/26/16 at 14:30 Glucose (Glutose) 15 gm Q15M PRN PO DECREASED GLUCOSE; Start 12/26/16 at 14:30 Glucose (Glutose) 22.5 gm Q15M PRN PO DECREASED GLUCOSE; Start 12/26/16 at 14:30 Dextrose (D50w Syringe) 25 ml Q15M PRN IV DECREASED GLUCOSE; Start 12/26/16 at 14:30 Dextrose (D50w Syringe) 50 ml Q15M PRN IV DECREASED GLUCOSE; Start 12/26/16 at 14:30 Glucagon (Glucagen) 1 mg Q15M PRN IM DECREASED GLUCOSE; Start 12/26/16 at 14:30 Glucose (Glutose) 15 gm Q15M PRN BUCCAL DECREASED GLUCOSE; Start 12/26/16 at 14: 30 Cholecalciferol (Vitamin D) 1,000 unit DAILY PO Last administered on 08:05; Admin Dose 1,000 UNIT; Start 12/28/16 at 09:00 Ondansetron HCl (Zofran Inj) 4 mg Q6H PRN IV NAUSEA AND/OR VOMITING Last administered on 01/15/17 09:50; Admin Dose 4 MG; Start 01/01/17 at 10:00 Haloperidol (Haldol) 2 mg Q4H PRN IM AGITATION/ANXIETY Last administered on 22:46; Admin Dose 2 MG; Start 01/08/17 at 01:30 Acetaminophen (Tylenol Tab) 650 mg Q6H PRN PO PAIN AND OR ELEVATED TEMP Last administered on 01/16/17 10:25; Admin Dose 650 MG; Start 01/08/17 at 22:30 Quetiapine Fumarate (Seroquel) 25 mg QHS PRN PO agitation/hallucinations Last administered on 01/09/17 22:15; Admin Dose 25 MG; Start 01/09/17 at 21:00 Morphine Sulfate (morphine) 2 mg Q8H PRN IV PAIN LEVEL 6-10 Last administered on 01/19/17 16:02; Admin Dose 2 MG; Start 01/11/17 at 14:00 Clonidine (Catapres) 0.1 mg Q6H PRN PO hypertension Last administered on 02:41; Admin Dose 0.1 MG; Start 01/14/17 at 02:30 Hydralazine HCl (Apresoline) 25 mg Q6H PRN IV ELEVATED SYSTOLIC BP Last administered on 01/14/17 07:04; Admin Dose 25 MG; Start 01/14/17 at 07:00 Insulin Glargine (Lantus) 5 unit DAILY@20 SC Last administered on 01/30/17 21 :03; Admin Dose 5 UNIT; Start 01/17/17 at 20:00 Tacrolimus (Prograf) 2 mg Q12 PO Last administered on 01/31/17 08:04; Admin Dose 2 MG; Start 01/18/17 at 09:00 IV Flush (NS 10 ml) 10 ml PRN PRN IV IV PROTOCOL Last administered on 11:54; Admin Dose 10 ML; Start 01/19/17 at 12:30 Acetaminophen/ Hydrocodone Bitart ([place] (5/325)) 1 tab Q8H PRN PO PAIN Last administered on 01/31/17 14:26; Admin Dose 1 TAB; Start 01/19/17 at 14:30 Benazepril HCl (Lotensin) 10 mg DAILY PO Last administered on 01/31/17 10:00 ; Admin Dose 10 MG; Start 01/24/17 at 09:00 Metoprolol Tartrate (Lopressor) 50 mg BID PO Last administered on 01/31/17 10 :00; Admin Dose 50 MG; Start 01/23/17 at 21:00 RAMON KEMP MD Jan 31, 2017 16:23
--- NOTE | 2017-01-31 17:44 | CONS ---
Date/Time of Note Date/Time of Note DATE: 01/31/17 TIME: 17:39 Assessment/Plan Assessment/Plan Chief Complaint/Hosp Course IMP: 1.Lmp-eg-sqchai test 10/2016 with no ischemia/only scar/NL EF. Negative trop x 3. 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 Encephalopathy 7. Hyponatremia Recc: -Continue asa/plavix -Continue benazepril/BB with slight increase to improve BP -Local wound care -Continue abx's and f/u cx data -Continue immuonosuppresives -Follow volume status clsoely on IVF hydration Problems: Consultation Date/Type/Reason Admit Date/Time Dec 26, 2016 at 13:22 Initial Consult Date 12/27/16 Type of Consultation: cardiology Reason for Consultation HTN Referring Provider: LES GLILILAND Exam/Review of Systems Vital Signs Vitals Vital Signs Date Time Temp Pulse Resp B/P Pulse Ox O2 Delivery O2 Flow Rate FiO2 01/31/17 14:30 98.1 73 16 166/79 100 Intake and Output 01/30/17 01/30/17 01/31/17 14:59 22:59 06:59 Intake Total 225 ml 1115 ml 1105 ml Balance 225 ml 1115 ml 1105 ml Exam Review of Systems: CONSTITUTIONAL: No fevers, chills. PULMONARY: No sob CARDIOVASCULAR: No chest pain/palpitations GASTROINTESTINAL: No nausea/vomiting. GENITOURINARY: No hematuria/dysuria. MUSCULOSKELETAL: No myagias/arthalgias. PSYCHIATRIC: The patient denies depression. NEUROLOGIC: No weakness Constitutional: alert, oriented Psych: no complaints Head: normocephalic ENMT: mucosa pink and moist Neck: jvd, supple Respiratory: diminished breath sounds (at bases/B) Cardiovascular: regular rate and rhythm Gastrointestinal: non-tender, soft Musculoskeletal: muscle tone, other Extremities: edema Neurological: other (No edema) Results Result Diagram: 01/30/17 0437 01/30/17 0437 Results 24 hrs Laboratory Tests Test 01/30/17 20:59 01/31/17 08:02 01/31/17 12:17 01/31/17 17:21 Bedside Glucose 123 94 132 101 Medications Medications Current Medications Aspirin (Halfprin) 81 mg DAILY PO Last administered on 01/31/17 08:05; Admin Dose 81 MG; Start 12/27/16 at 09:00 Clopidogrel Bisulfate (plaVIX) 75 mg DAILY PO Last administered on 01/31/17 08:05; Admin Dose 75 MG; Start 12/27/16 at 09:00 Famotidine (Pepcid) 40 mg HS PO Last administered on 01/30/17 21:00; Admin Dose 40 MG; Start 12/26/16 at 21:00 Folic Acid (Folic Acid) 1 mg DAILY PO Last administered on 01/31/17 08:05; Admin Dose 1 MG; Start 12/27/16 at 09:00 Gabapentin (Neurontin) 100 mg TID PO Last administered on 01/31/17 12:19; Admin Dose 100 MG; Start 12/26/16 at 21:00 Mycophenolate Mofetil (Cellcept) 1,000 mg BID PO Last administered on 08:04; Admin Dose 1,000 MG; Start 12/26/16 at 21:00 Pantoprazole (Protonix Tab) 40 mg DAILY@06 PO Last administered on 01/31/17 05:24; Admin Dose 40 MG; Start 12/27/16 at 06:00 Diagnostic Test (Pha) (Accu-Chek) 1 ea 02 XX ; Start 12/27/16 at 02:00 Miscellaneous Information 1 ea NOTE XX ; Start 12/26/16 at 14:30 Glucose (Glutose) 15 gm Q15M PRN PO DECREASED GLUCOSE; Start 12/26/16 at 14:30 Glucose (Glutose) 22.5 gm Q15M PRN PO DECREASED GLUCOSE; Start 12/26/16 at 14:30 Dextrose (D50w Syringe) 25 ml Q15M PRN IV DECREASED GLUCOSE; Start 12/26/16 at 14:30 Dextrose (D50w Syringe) 50 ml Q15M PRN IV DECREASED GLUCOSE; Start 12/26/16 at 14:30 Glucagon (Glucagen) 1 mg Q15M PRN IM DECREASED GLUCOSE; Start 12/26/16 at 14:30 Glucose (Glutose) 15 gm Q15M PRN BUCCAL DECREASED GLUCOSE; Start 12/26/16 at 14: 30 Cholecalciferol (Vitamin D) 1,000 unit DAILY PO Last administered on 08:05; Admin Dose 1,000 UNIT; Start 12/28/16 at 09:00 Ondansetron HCl (Zofran Inj) 4 mg Q6H PRN IV NAUSEA AND/OR VOMITING Last administered on 01/15/17 09:50; Admin Dose 4 MG; Start 01/01/17 at 10:00 Haloperidol (Haldol) 2 mg Q4H PRN IM AGITATION/ANXIETY Last administered on 22:46; Admin Dose 2 MG; Start 01/08/17 at 01:30 Acetaminophen (Tylenol Tab) 650 mg Q6H PRN PO PAIN AND OR ELEVATED TEMP Last administered on 01/16/17 10:25; Admin Dose 650 MG; Start 01/08/17 at 22:30 Quetiapine Fumarate (Seroquel) 25 mg QHS PRN PO agitation/hallucinations Last administered on 01/09/17 22:15; Admin Dose 25 MG; Start 01/09/17 at 21:00 Morphine Sulfate (morphine) 2 mg Q8H PRN IV PAIN LEVEL 6-10 Last administered on 01/19/17 16:02; Admin Dose 2 MG; Start 01/11/17 at 14:00 Clonidine (Catapres) 0.1 mg Q6H PRN PO hypertension Last administered on 02:41; Admin Dose 0.1 MG; Start 01/14/17 at 02:30 Hydralazine HCl (Apresoline) 25 mg Q6H PRN IV ELEVATED SYSTOLIC BP Last administered on 01/14/17 07:04; Admin Dose 25 MG; Start 01/14/17 at 07:00 Insulin Glargine (Lantus) 5 unit DAILY@20 SC Last administered on 01/30/17 21 :03; Admin Dose 5 UNIT; Start 01/17/17 at 20:00 Tacrolimus (Prograf) 2 mg Q12 PO Last administered on 01/31/17 08:04; Admin Dose 2 MG; Start 01/18/17 at 09:00 IV Flush (NS 10 ml) 10 ml PRN PRN IV IV PROTOCOL Last administered on 11:54; Admin Dose 10 ML; Start 01/19/17 at 12:30 Acetaminophen/ Hydrocodone Bitart ([place] (5/325)) 1 tab Q8H PRN PO PAIN Last administered on 01/31/17 14:26; Admin Dose 1 TAB; Start 01/19/17 at 14:30 Benazepril HCl (Lotensin) 10 mg DAILY PO Last administered on 01/31/17 10:00 ; Admin Dose 10 MG; Start 01/24/17 at 09:00 Metoprolol Tartrate (Lopressor) 50 mg BID PO Last administered on 01/31/17 10 :00; Admin Dose 50 MG; Start 01/23/17 at 21:00 TIMOTHY CORTES Jan 31, 2017 17:44
--- NOTE | 2017-01-31 19:01 | PN ---
Date/Time of Note Date/Time of Note DATE: 01/31/17 TIME: 18:59 Assessment/Plan VTE Prophylaxis VTE Prophylaxis Intervention: SCD's Lines/Catheters IV Catheter Type (from Nrs): PICC Line Central line still needed: Yes Urinary Cath still in place: No Assessment/Plan Chief Complaint/Hosp Course Patient remains hemodynamically stable, pain is well controlled, continue physical therapy, pending acute rehabilitation evaluation versus snf facility placement. Assessment/Plan - Acute encephalopathy, resolved. CT brain is negative for any acute pathology. 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 S/p left AKA 01/[address] Valencia, vascular surgery. - Diabetes mellitus type II. Continue Lantus and NovoLog. - History of kidney transplant in 2009, on immunosuppressive therapy. - Hypertension. Continue metoprolol, benazepril. 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 - Anemia of chronic kidney disease. Further recommendations based on clinical course. Plan of care discussed with Dr. Cohen Problems: Exam/Review of Systems Vital Signs Vitals Vital Signs Date Time Temp Pulse Resp B/P Pulse Ox O2 Delivery O2 Flow Rate FiO2 01/31/17 14:30 98.1 73 16 166/79 100 Intake and Output 01/30/17 01/30/17 01/31/17 15:00 23:00 07:00 Intake Total 225 ml 1115 ml 1105 ml Balance 225 ml 1115 ml 1105 ml Exam Constitutional: awake, alert Neck: supple Respiratory: clear to auscultation Cardiovascular: nl pulses Gastrointestinal: non-tender, soft Extremities: other (S/p LAKA) Results Result Diagram: 01/30/17 0437 01/30/17 0437 Results 24 hrs Laboratory Tests Test 01/30/17 20:59 01/31/17 08:02 01/31/17 12:17 01/31/17 17:21 Bedside Glucose 123 94 132 101 Medications Medications Current Medications Aspirin (Halfprin) 81 mg DAILY PO Last administered on 01/31/17 08:05; Admin Dose 81 MG; Start 12/27/16 at 09:00 Clopidogrel Bisulfate (plaVIX) 75 mg DAILY PO Last administered on 01/31/17 08:05; Admin Dose 75 MG; Start 12/27/16 at 09:00 Famotidine (Pepcid) 40 mg HS PO Last administered on 01/30/17 21:00; Admin Dose 40 MG; Start 12/26/16 at 21:00 Folic Acid (Folic Acid) 1 mg DAILY PO Last administered on 01/31/17 08:05; Admin Dose 1 MG; Start 12/27/16 at 09:00 Gabapentin (Neurontin) 100 mg TID PO Last administered on 01/31/17 12:19; Admin Dose 100 MG; Start 12/26/16 at 21:00 Mycophenolate Mofetil (Cellcept) 1,000 mg BID PO Last administered on 08:04; Admin Dose 1,000 MG; Start 12/26/16 at 21:00 Pantoprazole (Protonix Tab) 40 mg DAILY@06 PO Last administered on 01/31/17 05:24; Admin Dose 40 MG; Start 12/27/16 at 06:00 Diagnostic Test (Pha) (Accu-Chek) 1 ea 02 XX ; Start 12/27/16 at 02:00 Miscellaneous Information 1 ea NOTE XX ; Start 12/26/16 at 14:30 Glucose (Glutose) 15 gm Q15M PRN PO DECREASED GLUCOSE; Start 12/26/16 at 14:30 Glucose (Glutose) 22.5 gm Q15M PRN PO DECREASED GLUCOSE; Start 12/26/16 at 14:30 Dextrose (D50w Syringe) 25 ml Q15M PRN IV DECREASED GLUCOSE; Start 12/26/16 at 14:30 Dextrose (D50w Syringe) 50 ml Q15M PRN IV DECREASED GLUCOSE; Start 12/26/16 at 14:30 Glucagon (Glucagen) 1 mg Q15M PRN IM DECREASED GLUCOSE; Start 12/26/16 at 14:30 Glucose (Glutose) 15 gm Q15M PRN BUCCAL DECREASED GLUCOSE; Start 12/26/16 at 14: 30 Cholecalciferol (Vitamin D) 1,000 unit DAILY PO Last administered on 08:05; Admin Dose 1,000 UNIT; Start 12/28/16 at 09:00 Ondansetron HCl (Zofran Inj) 4 mg Q6H PRN IV NAUSEA AND/OR VOMITING Last administered on 01/15/17 09:50; Admin Dose 4 MG; Start 01/01/17 at 10:00 Haloperidol (Haldol) 2 mg Q4H PRN IM AGITATION/ANXIETY Last administered on 22:46; Admin Dose 2 MG; Start 01/08/17 at 01:30 Acetaminophen (Tylenol Tab) 650 mg Q6H PRN PO PAIN AND OR ELEVATED TEMP Last administered on 01/16/17 10:25; Admin Dose 650 MG; Start 01/08/17 at 22:30 Quetiapine Fumarate (Seroquel) 25 mg QHS PRN PO agitation/hallucinations Last administered on 01/09/17 22:15; Admin Dose 25 MG; Start 01/09/17 at 21:00 Morphine Sulfate (morphine) 2 mg Q8H PRN IV PAIN LEVEL 6-10 Last administered on 01/19/17 16:02; Admin Dose 2 MG; Start 01/11/17 at 14:00 Clonidine (Catapres) 0.1 mg Q6H PRN PO hypertension Last administered on 02:41; Admin Dose 0.1 MG; Start 01/14/17 at 02:30 Hydralazine HCl (Apresoline) 25 mg Q6H PRN IV ELEVATED SYSTOLIC BP Last administered on 01/14/17 07:04; Admin Dose 25 MG; Start 01/14/17 at 07:00 Insulin Glargine (Lantus) 5 unit DAILY@20 SC Last administered on 01/30/17 21 :03; Admin Dose 5 UNIT; Start 01/17/17 at 20:00 Tacrolimus (Prograf) 2 mg Q12 PO Last administered on 01/31/17 08:04; Admin Dose 2 MG; Start 01/18/17 at 09:00 IV Flush (NS 10 ml) 10 ml PRN PRN IV IV PROTOCOL Last administered on 11:54; Admin Dose 10 ML; Start 01/19/17 at 12:30 Acetaminophen/ Hydrocodone Bitart ([place] (5/325)) 1 tab Q8H PRN PO PAIN Last administered on 01/31/17 14:26; Admin Dose 1 TAB; Start 01/19/17 at 14:30 Metoprolol Tartrate (Lopressor) 50 mg BID PO Last administered on 01/31/17 10 :00; Admin Dose 50 MG; Start 01/23/17 at 21:00 Benazepril HCl (Lotensin) 10 mg BID PO ; Start 01/31/17 at 21:00 LES GILLILAND Jan 31, 2017 19:01
[2017-01-31 20:00] VITALS: BP 134/66; RESP 18
[2017-01-31] MEDS: INSULIN GLARGINE [LANtus] 3 ML PEN SC SCH (22:14)
[2017-01-31] MEDS: FAMOTIDINE 20 MG TAB PO SCH (22:15)
[2017-01-31 22:26] VITALS: BP 112/62; PULSE 69
[2017-02-01] MEDS: ACCU-CHEK XX SCH (02:00)
[2017-02-01 02:05] VITALS: BP 116/57; RESP 18
[2017-02-01] MEDS: PANTOPRAZOLE (EC) 40 MG TAB PO SCH (05:18)
[2017-02-01 06:29] LABS: ABNORMAL IP MESSAGE 1; BASOPHILS % 0.2 % (0.0-2.0); EOSINOPHILS # 0.1 10^3/ul (0.0-0.5); EOSINOPHILS % 2.1 % (0.0-7.0); HEMATOCRIT 17.6 % (37.0-47.0); LYMPHOCYTES # 1.3 10^3/ul (0.8-2.9); LYMPHOCYTES % 24.7 % (15.0-51.0); MEAN CORPUSCULAR HEMOGLOBIN 27.2 pg (29.0-33.0); MEAN CORPUSCULAR HGB CONC 31.3 g/dl (32.0-37.0); MEAN CORPUSCULAR VOLUME 87.1 fl (82.0-101.0); MEAN PLATELET VOLUME 11.2 fl (7.4-10.4); MONOCYTES % 19.5 % (0.0-11.0); NEUTROPHIL # 2.7 10^3/ul (1.6-7.5); NEUTROPHILS % 53.3 % (39.0-77.0); PLATELET COUNT 344 10^3/UL (140-415); RED BLOOD COUNT 2.02 10^6/ul (4.20-5.40); WHITE BLOOD COUNT 5.1 10^3/ul (4.8-10.8)
[2017-02-01 06:37] LABS: POSITIVE DIFF @See below
[2017-02-01 06:39] LABS: HEMOGLOBIN 5.5 g/dl (12.0-16.0)
[2017-02-01 07:10] LABS: CALCIUM 9.3 mg/dl (8.4-10.2); CREATININE 0.58 mg/dl (0.44-1.00); POTASSIUM 4.2 mmol/L (3.5-5.1)
[2017-02-01 07:40] LABS: ANISOCYTOSIS 2+ (0-0); EOSINOPHILS % (M) 3 % (0-7); GIANT THROMBO% (M) 3 % (0-0); HYPOCHROMASIA 2+ (0-0); MICROCYTOSIS 1+ (0-0); MONOCYTES % (M) 11 % (0-11); PLATELET ESTIMATE NORMAL; POIKILOCYTOSIS 1+ (0-0); POLYCHROMASIA 3+ (0-0)
[2017-02-01 07:56] VITALS: BP 130/56; RESP 19
[2017-02-01] MEDS: INSULIN ASPART [NOVOLOG] 3 ML PEN SC SCH ×4 (08:00→21:00)
[2017-02-01] MEDS: CHOLECALCIFEROL 1,000 UNIT TAB PO SCH (08:07)
[2017-02-01] MEDS: FOLIC ACID 1 MG TAB PO SCH (08:08)
[2017-02-01] MEDS: ASPIRIN (EC) 81 MG TAB PO SCH (08:08)
[2017-02-01] MEDS: MYCOPHENOLATE 250 MG CAP PO SCH ×2 (08:08→21:24)
[2017-02-01] MEDS: GABAPENTIN 100 MG CAP PO SCH ×3 (08:08→21:25)
[2017-02-01] MEDS: CLOPIDOGREL 75 MG TAB PO SCH (08:08)
[2017-02-01] MEDS: TACROLIMUS 1 MG CAP PO SCH ×2 (08:08→21:25)
[2017-02-01] MEDS: BENAZEPRIL 10 MG TAB PO SCH ×2 (08:08→21:25)
[2017-02-01] MEDS: METOPROLOL 50 MG TAB PO SCH ×2 (08:09→21:24)
[2017-02-01 08:17] LABS: BASOPHILS % 0.5 % (0.0-2.0); EOSINOPHILS # 0.1 10^3/ul (0.0-0.5); EOSINOPHILS % 2.1 % (0.0-7.0); HEMATOCRIT 31.4 % (37.0-47.0); HEMOGLOBIN 10.2 g/dl (12.0-16.0); LYMPHOCYTES # 0.8 10^3/ul (0.8-2.9); MEAN CORPUSCULAR HEMOGLOBIN 27.8 pg (29.0-33.0); MEAN CORPUSCULAR HGB CONC 32.5 g/dl (32.0-37.0); MEAN CORPUSCULAR VOLUME 85.6 fl (82.0-101.0); MEAN PLATELET VOLUME 11.1 fl (7.4-10.4); MONOCYTE # 0.7 10^3/ul (0.3-0.9); MONOCYTES % 16.2 % (0.0-11.0); NEUTROPHIL # 2.6 10^3/ul (1.6-7.5); PLATELET COUNT 306 10^3/UL (140-415); RED BLOOD COUNT 3.67 10^6/ul (4.20-5.40); WHITE BLOOD COUNT 4.2 10^3/ul (4.8-10.8)
--- NOTE | 2017-02-01 11:18 | CONS ---
Date/Time of Note Date/Time of Note DATE: 02/01/17 TIME: 11:12 Assessment/Plan Assessment/Plan Additional Assessment/Plan 1. Bilateral LE gangrene, s/p recent amputation by podiatry, worsening LE wounds - per vascular sx - failed debridement and revascularization process.s/p Left AKA 2. h/o donor kidney transplant in 2009 at [facility], currently on immunosuppression with Prograf, CellCept - BUN/Cr stable 4. 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 History of hypertension. 6. History of diabetes mellitus. 7. History of previous left upper extremity arteriovenous fistula. 8. Hyponatremia due to hypovolemic hyponatremia post op - resolved 9. -CT chest+ abd+pelvis with and without contrast negative for mass/LAD/ Malignancy Plan: -Acute Rehab Evaluation pending -continue Current immunosuppression Prograf and CellCept, no labs today, AM labs ordered -s/p Left AKA, off IV abx now -continue Lotensin for now -ID following -will follow up Plan of care [facility] Consultation Date/Type/Reason Admit Date/Time Dec 26, 2016 at 13:22 Initial Consult Date 12/27/16 Type of Consultation: NEPHROLOGY Referring Provider: LES GILLILAND 24 HR Interval Summary Free Text/Dictation afebrile, c/o left stump pain, but medicine is effective, [facility] staff - no new events reported overnight, Detailed Summary Respiratory: no complaints Cardiovascular: no complaints Gastrointestinal: no complaints Genitourinary: no complaints Musculoskeletal: bone/joint pain Skin: skin lesions Exam/Review of Systems Vital Signs Vitals Vital Signs Date Time Temp Pulse Resp B/P Pulse Ox O2 Delivery O2 Flow Rate FiO2 02/01/17 07:56 97.6 70 19 130/56 100 Intake and Output 01/31/17 01/31/17 02/01/17 15:00 23:00 07:00 Intake Total 870 ml 370 ml Balance 870 ml 370 ml Exam Constitutional: alert, oriented Respiratory: diminished breath sounds, normal air movement Cardiovascular: nl pulses, regular rate and rhythm Gastrointestinal: non-tender, soft Musculoskeletal: other ( sp left aka- DDI, Bilateral LE gangrene, s/p recent amputation by podiatry, worsening LE wounds) Neurological: nl mental status, nl speech Skin: other ( Bilateral LE gangrene, s/p recent amputation by podiatry, worsening LE wounds) Results Result Diagram: 02/01/17 0744 02/01/17 0531 Results 24 hrs Laboratory Tests Test 01/31/17 12:17 01/31/17 17:21 01/31/17 22:11 02/01/17 05:31 Bedside Glucose 132 101 107 White Blood Count 5.1 Red Blood Count 2.02 #L Hemoglobin 5.5 #*L Hematocrit 17.6 #L Mean Corpuscular Volume 87.1 Mean Corpuscular Hemoglobin 27.2 L Mean Corpuscular Hemoglobin Concent 31.3 L Red Cell Distribution Width 15.0 H Platelet Count 344 Mean Platelet Volume 11.2 H Neutrophils % 53.3 Segmented Neutrophils % (Manual) 59 Lymphocytes % 24.7 Lymphocytes % (Manual) 27 Monocytes % 19.5 H Monocytes % (Manual) 11 Eosinophils % 2.1 Eosinophils % (Manual) 3 Basophils % 0.2 Nucleated Red Blood Cells % 0.0 Neutrophils # 2.7 Absolute Lymphocytes (Manual) 1.3 Lymphocytes # 1.3 Monocytes # 1.0 H Absolute Monocytes (Manual) 0.5 Eosinophils # 0.1 Basophils # 0.0 Nucleated Red Blood Cells # 0.0 Platelet Estimate NORMAL Giant Platelets 3 H Polychromasia 3+ Hypochromasia 2+ Poikilocytosis 1+ Anisocytosis 2+ Microcytosis 1+ Macrocytosis 1+ Sodium Level 138 Potassium Level 4.2 Chloride Level 104 Carbon Dioxide Level 26 Anion Gap 12 Blood Urea Nitrogen 17 Creatinine 0.58 Glucose Level 66 L Calcium Level 9.3 Test 02/01/17 07:44 02/01/17 08:05 White Blood Count 4.2 L Red Blood Count 3.67 #L Hemoglobin 10.2 #L Hematocrit 31.4 #L Mean Corpuscular Volume 85.6 Mean Corpuscular Hemoglobin 27.8 L Mean Corpuscular Hemoglobin Concent 32.5 Red Cell Distribution Width 15.0 H Platelet Count 306 Mean Platelet Volume 11.1 H Neutrophils % 61.0 Lymphocytes % 20.0 Monocytes % 16.2 H Eosinophils % 2.1 Basophils % 0.5 Nucleated Red Blood Cells % 0.0 Neutrophils # 2.6 Lymphocytes # 0.8 Monocytes # 0.7 Eosinophils # 0.1 Basophils # 0.0 Nucleated Red Blood Cells # 0.0 Bedside Glucose 78 Medications Medications Current Medications Aspirin (Halfprin) 81 mg DAILY PO Last administered on 02/01/17 08:08; Admin Dose 81 MG; Start 12/27/16 at 09:00 Clopidogrel Bisulfate (plaVIX) 75 mg DAILY PO Last administered on 02/01/17 08:08; Admin Dose 75 MG; Start 12/27/16 at 09:00 Famotidine (Pepcid) 40 mg HS PO Last administered on 01/31/17 22:15; Admin Dose 40 MG; Start 12/26/16 at 21:00 Folic Acid (Folic Acid) 1 mg DAILY PO Last administered on 02/01/17 08:08; Admin Dose 1 MG; Start 12/27/16 at 09:00 Gabapentin (Neurontin) 100 mg TID PO Last administered on 02/01/17 08:08; Admin Dose 100 MG; Start 12/26/16 at 21:00 Mycophenolate Mofetil (Cellcept) 1,000 mg BID PO Last administered on 08:08; Admin Dose 1,000 MG; Start 12/26/16 at 21:00 Pantoprazole (Protonix Tab) 40 mg DAILY@06 PO Last administered on 02/01/17 05:18; Admin Dose 40 MG; Start 12/27/16 at 06:00 Diagnostic Test (Pha) (Accu-Chek) 1 ea 02 XX ; Start 12/27/16 at 02:00 Miscellaneous Information 1 ea NOTE XX ; Start 12/26/16 at 14:30 Glucose (Glutose) 15 gm Q15M PRN PO DECREASED GLUCOSE; Start 12/26/16 at 14:30 Glucose (Glutose) 22.5 gm Q15M PRN PO DECREASED GLUCOSE; Start 12/26/16 at 14:30 Dextrose (D50w Syringe) 25 ml Q15M PRN IV DECREASED GLUCOSE; Start 12/26/16 at 14:30 Dextrose (D50w Syringe) 50 ml Q15M PRN IV DECREASED GLUCOSE; Start 12/26/16 at 14:30 Glucagon (Glucagen) 1 mg Q15M PRN IM DECREASED GLUCOSE; Start 12/26/16 at 14:30 Glucose (Glutose) 15 gm Q15M PRN BUCCAL DECREASED GLUCOSE; Start 12/26/16 at 14: 30 Cholecalciferol (Vitamin D) 1,000 unit DAILY PO Last administered on 08:07; Admin Dose 1,000 UNIT; Start 12/28/16 at 09:00 Ondansetron HCl (Zofran Inj) 4 mg Q6H PRN IV NAUSEA AND/OR VOMITING Last administered on 01/15/17 09:50; Admin Dose 4 MG; Start 01/01/17 at 10:00 Haloperidol (Haldol) 2 mg Q4H PRN IM AGITATION/ANXIETY Last administered on 22:46; Admin Dose 2 MG; Start 01/08/17 at 01:30 Acetaminophen (Tylenol Tab) 650 mg Q6H PRN PO PAIN AND OR ELEVATED TEMP Last administered on 01/16/17 10:25; Admin Dose 650 MG; Start 01/08/17 at 22:30 Quetiapine Fumarate (Seroquel) 25 mg QHS PRN PO agitation/hallucinations Last administered on 01/09/17 22:15; Admin Dose 25 MG; Start 01/09/17 at 21:00 Morphine Sulfate (morphine) 2 mg Q8H PRN IV PAIN LEVEL 6-10 Last administered on 01/19/17 16:02; Admin Dose 2 MG; Start 01/11/17 at 14:00 Clonidine (Catapres) 0.1 mg Q6H PRN PO hypertension Last administered on 02:41; Admin Dose 0.1 MG; Start 01/14/17 at 02:30 Hydralazine HCl (Apresoline) 25 mg Q6H PRN IV ELEVATED SYSTOLIC BP Last administered on 01/14/17 07:04; Admin Dose 25 MG; Start 01/14/17 at 07:00 Insulin Glargine (Lantus) 5 unit DAILY@20 SC Last administered on 01/31/17 22 :14; Admin Dose 5 UNIT; Start 01/17/17 at 20:00 Tacrolimus (Prograf) 2 mg Q12 PO Last administered on 02/01/17 08:08; Admin Dose 2 MG; Start 01/18/17 at 09:00 IV Flush (NS 10 ml) 10 ml PRN PRN IV IV PROTOCOL Last administered on 11:54; Admin Dose 10 ML; Start 01/19/17 at 12:30 Acetaminophen/ Hydrocodone Bitart ([place] (5/325)) 1 tab Q8H PRN PO PAIN Last administered on 01/31/17 22:22; Admin Dose 1 TAB; Start 01/19/17 at 14:30 Metoprolol Tartrate (Lopressor) 50 mg BID PO Last administered on 02/01/17 08 :09; Admin Dose 50 MG; Start 01/23/17 at 21:00 Benazepril HCl (Lotensin) 10 mg BID PO Last administered on 02/01/17 08:08; Admin Dose 10 MG; Start 01/31/17 at 21:00 TIM BENNETT Feb 01, 2017 11:18
--- NOTE | 2017-02-01 12:27 | PN ---
Date/Time of Note Date/Time of Note DATE: 02/01/17 TIME: 12:26 Assessment/Plan VTE Prophylaxis VTE Prophylaxis Intervention: other Lines/Catheters IV [facility] Type [facility] P[facility] Line Central line still needed: Yes Urinary Cath still in place: No Assessment/Plan Chief Complaint/Hosp Course - Acute encephalopathy, resolved. CT brain is negative for any acute pathology. 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 S/p left AKA 01/[address] Valencia, vascular surgery. - Diabetes mellitus type II. Continue Lantus and NovoLog. - History of kidney transplant in 2009, on immunosuppressive therapy. - Hypertension. Continue metoprolol, benazepril. 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 - Anemia of chronic kidney disease. Problems: Subjective 24 Hr Interval Summary Free Text/Dictation Patient has no complaints Exam/Review of Systems Vital Signs Vitals Vital Signs Date Time Temp Pulse Resp B/P Pulse Ox O2 Delivery O2 Flow Rate FiO2 02/01/17 07:56 97.6 70 19 130/56 100 Intake and Output 01/31/17 01/31/17 02/01/17 15:00 23:00 07:00 Intake Total 870 ml 370 ml Balance 870 ml 370 ml Exam Constitutional: well developed Head: atraumatic, normocephalic Neck: supple Respiratory: clear to auscultation Cardiovascular: regular rate and rhythm Gastrointestinal: non-tender, soft Extremities: normal pulses Results Result Diagram: 02/01/17 0744 02/01/17 0531 Results 24 hrs Laboratory Tests Test 01/31/17 17:21 01/31/17 22:11 02/01/17 05:31 02/01/17 07:44 Bedside Glucose 101 107 White Blood Count 5.1 4.2 L Red Blood Count 2.02 #L 3.67 #L Hemoglobin 5.5 #*L 10.2 #L Hematocrit 17.6 #L 31.4 #L Mean Corpuscular Volume 87.1 85.6 Mean Corpuscular Hemoglobin 27.2 L 27.8 L Mean Corpuscular Hemoglobin Concent 31.3 L 32.5 Red Cell Distribution Width 15.0 H 15.0 H Platelet Count 344 306 Mean Platelet Volume 11.2 H 11.1 H Neutrophils % 53.3 61.0 Segmented Neutrophils % (Manual) 59 Lymphocytes % 24.7 20.0 Lymphocytes % (Manual) 27 Monocytes % 19.5 H 16.2 H Monocytes % (Manual) 11 Eosinophils % 2.1 2.1 Eosinophils % (Manual) 3 Basophils % 0.2 0.5 Nucleated Red Blood Cells % 0.0 0.0 Neutrophils # 2.7 2.6 Absolute Lymphocytes (Manual) 1.3 Lymphocytes # 1.3 0.8 Monocytes # 1.0 H 0.7 Absolute Monocytes (Manual) 0.5 Eosinophils # 0.1 0.1 Basophils # 0.0 0.0 Nucleated Red Blood Cells # 0.0 0.0 Platelet Estimate NORMAL Giant Platelets 3 H Polychromasia 3+ Hypochromasia 2+ Poikilocytosis 1+ Anisocytosis 2+ Microcytosis 1+ Macrocytosis 1+ Sodium Level 138 Potassium Level 4.2 Chloride Level 104 Carbon Dioxide Level 26 Anion Gap 12 Blood Urea Nitrogen 17 Creatinine 0.58 Glucose Level 66 L Calcium Level 9.3 Test 02/01/17 08:05 Bedside Glucose 78 Medications Medications Current Medications Aspirin (Halfprin) 81 mg DAILY PO Last administered on 02/01/17 08:08; Admin Dose 81 MG; Start 12/27/16 at 09:00 Clopidogrel Bisulfate (plaVIX) 75 mg DAILY PO Last administered on 02/01/17 08:08; Admin Dose 75 MG; Start 12/27/16 at 09:00 Famotidine (Pepcid) 40 mg HS PO Last administered on 01/31/17 22:15; Admin Dose 40 MG; Start 12/26/16 at 21:00 Folic Acid (Folic Acid) 1 mg DAILY PO Last administered on 02/01/17 08:08; Admin Dose 1 MG; Start 12/27/16 at 09:00 Gabapentin (Neurontin) 100 mg TID PO Last administered on 02/01/17 12:13; Admin Dose 100 MG; Start 12/26/16 at 21:00 Mycophenolate Mofetil (Cellcept) 1,000 mg BID PO Last administered on 08:08; Admin Dose 1,000 MG; Start 12/26/16 at 21:00 Pantoprazole (Protonix Tab) 40 mg DAILY@06 PO Last administered on 02/01/17 05:18; Admin Dose 40 MG; Start 12/27/16 at 06:00 Diagnostic Test (Pha) (Accu-Chek) 1 ea 02 XX ; Start 12/27/16 at 02:00 Miscellaneous Information 1 ea NOTE XX ; Start 12/26/16 at 14:30 Glucose (Glutose) 15 gm Q15M PRN PO DECREASED GLUCOSE; Start 12/26/16 at 14:30 Glucose (Glutose) 22.5 gm Q15M PRN PO DECREASED GLUCOSE; Start 12/26/16 at 14:30 Dextrose (D50w Syringe) 25 ml Q15M PRN IV DECREASED GLUCOSE; Start 12/26/16 at 14:30 Dextrose (D50w Syringe) 50 ml Q15M PRN IV DECREASED GLUCOSE; Start 12/26/16 at 14:30 Glucagon (Glucagen) 1 mg Q15M PRN IM DECREASED GLUCOSE; Start 12/26/16 at 14:30 Glucose (Glutose) 15 gm Q15M PRN BUCCAL DECREASED GLUCOSE; Start 12/26/16 at 14: 30 Cholecalciferol (Vitamin D) 1,000 unit DAILY PO Last administered on 08:07; Admin Dose 1,000 UNIT; Start 12/28/16 at 09:00 Ondansetron HCl (Zofran Inj) 4 mg Q6H PRN IV NAUSEA AND/OR VOMITING Last administered on 01/15/17 09:50; Admin Dose 4 MG; Start 01/01/17 at 10:00 Haloperidol (Haldol) 2 mg Q4H PRN IM AGITATION/ANXIETY Last administered on 22:46; Admin Dose 2 MG; Start 01/08/17 at 01:30 Acetaminophen (Tylenol Tab) 650 mg Q6H PRN PO PAIN AND OR ELEVATED TEMP Last administered on 01/16/17 10:25; Admin Dose 650 MG; Start 01/08/17 at 22:30 Quetiapine Fumarate (Seroquel) 25 mg QHS PRN PO agitation/hallucinations Last administered on 01/09/17 22:15; Admin Dose 25 MG; Start 01/09/17 at 21:00 Morphine Sulfate (morphine) 2 mg Q8H PRN IV PAIN LEVEL 6-10 Last administered on 01/19/17 16:02; Admin Dose 2 MG; Start 01/11/17 at 14:00 Clonidine (Catapres) 0.1 mg Q6H PRN PO hypertension Last administered on 02:41; Admin Dose 0.1 MG; Start 01/14/17 at 02:30 Hydralazine HCl (Apresoline) 25 mg Q6H PRN IV ELEVATED SYSTOLIC BP Last administered on 01/14/17 07:04; Admin Dose 25 MG; Start 01/14/17 at 07:00 Insulin Glargine (Lantus) 5 unit DAILY@20 SC Last administered on 01/31/17 22 :14; Admin Dose 5 UNIT; Start 01/17/17 at 20:00 Tacrolimus (Prograf) 2 mg Q12 PO Last administered on 02/01/17 08:08; Admin Dose 2 MG; Start 01/18/17 at 09:00 IV Flush (NS 10 ml) 10 ml PRN PRN IV IV PROTOCOL Last administered on 11:54; Admin Dose 10 ML; Start 01/19/17 at 12:30 Acetaminophen/ Hydrocodone Bitart ([place] (5/325)) 1 tab Q8H PRN PO PAIN Last administered on 01/31/17 22:22; Admin Dose 1 TAB; Start 01/19/17 at 14:30 Metoprolol Tartrate (Lopressor) 50 mg BID PO Last administered on 02/01/17 08 :09; Admin Dose 50 MG; Start 01/23/17 at 21:00 Benazepril HCl (Lotensin) 10 mg BID PO Last administered on 02/01/17 08:08; Admin Dose 10 MG; Start 01/31/17 at 21:00 RUPERTO ANDUJAR Feb 01, 2017 12:27
--- NOTE | 2017-02-01 12:57 | CONS ---
Date/Time of Note Date/Time of Note DATE: 02/01/17 TIME: 12:56 Assessment/Plan Assessment/Plan Additional Assessment/Plan 1.Dop-us-yvtcgz test 10/2016 with no ischemia/only scar/NL EF. Negative trop x 3. 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 Encephalopathy - much improved Consultation Date/Type/Reason Admit Date/Time Dec 26, 2016 at 13:22 Initial Consult Date 12/27/16 Type of Consultation: NEPHROLOGY Referring Provider: LES GILLILAND 24 HR Interval Summary Free Text/Dictation No acute change - BP in good range ROS: No fever, no chills, no nausea, no vomiting, no diarrhea/constipation No recent weight changes No chest pain, no PND, no orthopnea No dizziness, blurred vision No thirst, no heat or cold intolerance Exam/Review of Systems Vital Signs Vitals Vital Signs Date Time Temp Pulse Resp B/P Pulse Ox O2 Delivery O2 Flow Rate FiO2 02/01/17 07:56 97.6 70 19 130/56 100 Intake and Output 01/31/17 01/31/17 02/01/17 15:00 23:00 07:00 Intake Total 870 ml 370 ml Balance 870 ml 370 ml Exam General: WN/WD/NAD, AOx 3 HEENT: Unicetric/atraumatic/EOMI (follows commands) NECK: JVD elevated, no thyromegaly Lymph: no lymphadenopathy HEART: regular with no S3, II/ systolic murmur at apex LUNGS: Coarse sounds ABD: soft, NT, ND, +BS : Intact Neuro: non focal SKIN: chronic changes EXT: post amputation Results Result Diagram: 02/01/17 0744 02/01/17 0531 Results 24 hrs Laboratory Tests Test 01/31/17 17:21 01/31/17 22:11 02/01/17 05:31 02/01/17 07:44 Bedside Glucose 101 107 White Blood Count 5.1 4.2 L Red Blood Count 2.02 #L 3.67 #L Hemoglobin 5.5 #*L 10.2 #L Hematocrit 17.6 #L 31.4 #L Mean Corpuscular Volume 87.1 85.6 Mean Corpuscular Hemoglobin 27.2 L 27.8 L Mean Corpuscular Hemoglobin Concent 31.3 L 32.5 Red Cell Distribution Width 15.0 H 15.0 H Platelet Count 344 306 Mean Platelet Volume 11.2 H 11.1 H Neutrophils % 53.3 61.0 Segmented Neutrophils % (Manual) 59 Lymphocytes % 24.7 20.0 Lymphocytes % (Manual) 27 Monocytes % 19.5 H 16.2 H Monocytes % (Manual) 11 Eosinophils % 2.1 2.1 Eosinophils % (Manual) 3 Basophils % 0.2 0.5 Nucleated Red Blood Cells % 0.0 0.0 Neutrophils # 2.7 2.6 Absolute Lymphocytes (Manual) 1.3 Lymphocytes # 1.3 0.8 Monocytes # 1.0 H 0.7 Absolute Monocytes (Manual) 0.5 Eosinophils # 0.1 0.1 Basophils # 0.0 0.0 Nucleated Red Blood Cells # 0.0 0.0 Platelet Estimate NORMAL Giant Platelets 3 H Polychromasia 3+ Hypochromasia 2+ Poikilocytosis 1+ Anisocytosis 2+ Microcytosis 1+ Macrocytosis 1+ Sodium Level 138 Potassium Level 4.2 Chloride Level 104 Carbon Dioxide Level 26 Anion Gap 12 Blood Urea Nitrogen 17 Creatinine 0.58 Glucose Level 66 L Calcium Level 9.3 Test 02/01/17 08:05 02/01/17 12:10 Bedside Glucose 78 128 Medications Medications Current Medications Aspirin (Halfprin) 81 mg DAILY PO Last administered on 02/01/17 08:08; Admin Dose 81 MG; Start 12/27/16 at 09:00 Clopidogrel Bisulfate (plaVIX) 75 mg DAILY PO Last administered on 02/01/17 08:08; Admin Dose 75 MG; Start 12/27/16 at 09:00 Famotidine (Pepcid) 40 mg HS PO Last administered on 01/31/17 22:15; Admin Dose 40 MG; Start 12/26/16 at 21:00 Folic Acid (Folic Acid) 1 mg DAILY PO Last administered on 02/01/17 08:08; Admin Dose 1 MG; Start 12/27/16 at 09:00 Gabapentin (Neurontin) 100 mg TID PO Last administered on 02/01/17 12:13; Admin Dose 100 MG; Start 12/26/16 at 21:00 Mycophenolate Mofetil (Cellcept) 1,000 mg BID PO Last administered on 08:08; Admin Dose 1,000 MG; Start 12/26/16 at 21:00 Pantoprazole (Protonix Tab) 40 mg DAILY@06 PO Last administered on 02/01/17 05:18; Admin Dose 40 MG; Start 12/27/16 at 06:00 Diagnostic Test (Pha) (Accu-Chek) 1 ea 02 XX ; Start 12/27/16 at 02:00 Miscellaneous Information 1 ea NOTE XX ; Start 12/26/16 at 14:30 Glucose (Glutose) 15 gm Q15M PRN PO DECREASED GLUCOSE; Start 12/26/16 at 14:30 Glucose (Glutose) 22.5 gm Q15M PRN PO DECREASED GLUCOSE; Start 12/26/16 at 14:30 Dextrose (D50w Syringe) 25 ml Q15M PRN IV DECREASED GLUCOSE; Start 12/26/16 at 14:30 Dextrose (D50w Syringe) 50 ml Q15M PRN IV DECREASED GLUCOSE; Start 12/26/16 at 14:30 Glucagon (Glucagen) 1 mg Q15M PRN IM DECREASED GLUCOSE; Start 12/26/16 at 14:30 Glucose (Glutose) 15 gm Q15M PRN BUCCAL DECREASED GLUCOSE; Start 12/26/16 at 14: 30 Cholecalciferol (Vitamin D) 1,000 unit DAILY PO Last administered on 08:07; Admin Dose 1,000 UNIT; Start 12/28/16 at 09:00 Ondansetron HCl (Zofran Inj) 4 mg Q6H PRN IV NAUSEA AND/OR VOMITING Last administered on 01/15/17 09:50; Admin Dose 4 MG; Start 01/01/17 at 10:00 Haloperidol (Haldol) 2 mg Q4H PRN IM AGITATION/ANXIETY Last administered on 22:46; Admin Dose 2 MG; Start 01/08/17 at 01:30 Acetaminophen (Tylenol Tab) 650 mg Q6H PRN PO PAIN AND OR ELEVATED TEMP Last administered on 01/16/17 10:25; Admin Dose 650 MG; Start 01/08/17 at 22:30 Quetiapine Fumarate (Seroquel) 25 mg QHS PRN PO agitation/hallucinations Last administered on 01/09/17 22:15; Admin Dose 25 MG; Start 01/09/17 at 21:00 Morphine Sulfate (morphine) 2 mg Q8H PRN IV PAIN LEVEL 6-10 Last administered on 01/19/17 16:02; Admin Dose 2 MG; Start 01/11/17 at 14:00 Clonidine (Catapres) 0.1 mg Q6H PRN PO hypertension Last administered on 02:41; Admin Dose 0.1 MG; Start 01/14/17 at 02:30 Hydralazine HCl (Apresoline) 25 mg Q6H PRN IV ELEVATED SYSTOLIC BP Last administered on 01/14/17 07:04; Admin Dose 25 MG; Start 01/14/17 at 07:00 Insulin Glargine (Lantus) 5 unit DAILY@20 SC Last administered on 01/31/17 22 :14; Admin Dose 5 UNIT; Start 01/17/17 at 20:00 Tacrolimus (Prograf) 2 mg Q12 PO Last administered on 02/01/17 08:08; Admin Dose 2 MG; Start 01/18/17 at 09:00 IV Flush (NS 10 ml) 10 ml PRN PRN IV IV PROTOCOL Last administered on 11:54; Admin Dose 10 ML; Start 01/19/17 at 12:30 Acetaminophen/ Hydrocodone Bitart ([place] (5/325)) 1 tab Q8H PRN PO PAIN Last administered on 01/31/17 22:22; Admin Dose 1 TAB; Start 01/19/17 at 14:30 Metoprolol Tartrate (Lopressor) 50 mg BID PO Last administered on 02/01/17 08 :09; Admin Dose 50 MG; Start 01/23/17 at 21:00 Benazepril HCl (Lotensin) 10 mg BID PO Last administered on 02/01/17 08:08; Admin Dose 10 MG; Start 01/31/17 at 21:00 MIRELLA MOSER MD Feb 01, 2017 12:57
[2017-02-01 14:00] VITALS: BP 108/61; RESP 19
[2017-02-01 20:00] VITALS: BP 118/57; RESP 19
[2017-02-01] MEDS: INSULIN GLARGINE [LANtus] 3 ML PEN SC SCH (21:24)
[2017-02-01] MEDS: FAMOTIDINE 20 MG TAB PO SCH (21:25)
[2017-02-01] MEDS: HYDROCODONE/APAP (5/325) TAB PO PRN (21:26)
[2017-02-02 02:00] VITALS: BP 131/64; RESP 19; RESP 20
[2017-02-02] MEDS: ACCU-CHEK XX SCH (02:00)
[2017-02-02] MEDS: PANTOPRAZOLE (EC) 40 MG TAB PO SCH (05:42)
[2017-02-02 07:32] VITALS: BP 136/71; RESP 18
[2017-02-02] MEDS: INSULIN ASPART [NOVOLOG] 3 ML PEN SC SCH ×4 (07:53→20:39)
[2017-02-02] MEDS: GABAPENTIN 100 MG CAP PO SCH ×3 (08:28→20:31)
[2017-02-02] MEDS: ASPIRIN (EC) 81 MG TAB PO SCH (08:28)
[2017-02-02] MEDS: FOLIC ACID 1 MG TAB PO SCH (08:28)
[2017-02-02] MEDS: METOPROLOL 50 MG TAB PO SCH ×2 (08:28→20:37)
[2017-02-02] MEDS: CHOLECALCIFEROL 1,000 UNIT TAB PO SCH (08:28)
[2017-02-02] MEDS: BENAZEPRIL 10 MG TAB PO SCH ×2 (08:28→20:38)
[2017-02-02] MEDS: CLOPIDOGREL 75 MG TAB PO SCH (08:28)
[2017-02-02] MEDS: TACROLIMUS 1 MG CAP PO SCH ×2 (08:29→20:30)
[2017-02-02] MEDS: MYCOPHENOLATE 250 MG CAP PO SCH ×3 (08:29→23:39)
--- NOTE | 2017-02-02 12:51 | CONS ---
Date/Time of Note Date/Time of Note DATE: 02/02/17 TIME: 12:46 Assessment/Plan Assessment/Plan Additional Assessment/Plan 1. Bilateral LE gangrene, s/p recent amputation by podiatry, worsening LE wounds - per vascular sx - failed debridement and revascularization process.s/p Left AKA - stump site - purple, awaiting vascular sx to check, stump binder was removed, DDI 2. h/o donor kidney transplant in [address] [facility], currently on immunosuppression with Prograf, CellCept - BUN/Cr stable 4. 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 History of hypertension. 6. History of diabetes mellitus. 7. History of previous left upper extremity arteriovenous fistula. 8. Hyponatremia due to hypovolemic hyponatremia post op - resolved 9. -CT chest+ abd+pelvis with and without contrast negative for mass/LAD/ Malignancy Plan: -Acute Rehab Evaluation pending -continue Current immunosuppression Prograf and CellCept, no labs today, AM labs ordered -s/p Left AKA, off IV abx now -continue Lotensin for now -ID following -will follow up Plan of care dw Dr Swapna Briscoe Consultation Date/Type/Reason Admit Date/Time Dec 26, 2016 at 13:22 Initial Consult Date 12/27/16 Type of Consultation: NEPHROLOGY Referring Provider: LES GILLILAND 24 HR Interval Summary Free Text/Dictation afebrile, c/o right foot, left stump pain, pain med is effective, dw staff- Detailed Summary Respiratory: no complaints Cardiovascular: no complaints Gastrointestinal: no complaints Musculoskeletal: bone/joint pain Skin: skin lesions Exam/Review of Systems Vital Signs Vitals Vital Signs Date Time Temp Pulse Resp B/P Pulse Ox O2 Delivery O2 Flow Rate FiO2 02/02/17 07:32 97.7 69 18 136/71 100 Intake and Output 02/01/17 02/01/17 02/02/17 15:00 23:00 07:00 Intake Total 1060 ml 600 ml Output Total 600 ml Balance 460 ml 600 ml Exam Constitutional: alert Cardiovascular: other (s1s2) Gastrointestinal: non-tender, soft Musculoskeletal: other Extremities: other Neurological: nl speech Results Result Diagram: 02/01/17 0744 02/01/17 0531 Results 24 hrs Laboratory Tests Test 02/01/17 17:17 02/01/17 21:20 02/02/17 07:52 02/02/17 11:49 Bedside Glucose 116 103 94 142 Medications Medications Current Medications Aspirin (Halfprin) 81 mg DAILY PO Last administered on 02/02/17 08:28; Admin Dose 81 MG; Start 12/27/16 at 09:00 Clopidogrel Bisulfate (plaVIX) 75 mg DAILY PO Last administered on 02/02/17 08:28; Admin Dose 75 MG; Start 12/27/16 at 09:00 Famotidine (Pepcid) 40 mg HS PO Last administered on 02/01/17 21:25; Admin Dose 40 MG; Start 12/26/16 at 21:00 Folic Acid (Folic Acid) 1 mg DAILY PO Last administered on 02/02/17 08:28; Admin Dose 1 MG; Start 12/27/16 at 09:00 Gabapentin (Neurontin) 100 mg TID PO Last administered on 02/02/17 11:59; Admin Dose 100 MG; Start 12/26/16 at 21:00 Mycophenolate Mofetil (Cellcept) 1,000 mg BID PO Last administered on 08:29; Admin Dose 1,000 MG; Start 12/26/16 at 21:00 Pantoprazole (Protonix Tab) 40 mg DAILY@06 PO Last administered on 02/02/17 05:42; Admin Dose 40 MG; Start 12/27/16 at 06:00 Diagnostic Test (Pha) (Accu-Chek) 1 ea 02 XX ; Start 12/27/16 at 02:00 Miscellaneous Information 1 ea NOTE XX ; Start 12/26/16 at 14:30 Glucose (Glutose) 15 gm Q15M PRN PO DECREASED GLUCOSE; Start 12/26/16 at 14:30 Glucose (Glutose) 22.5 gm Q15M PRN PO DECREASED GLUCOSE; Start 12/26/16 at 14:30 Dextrose (D50w Syringe) 25 ml Q15M PRN IV DECREASED GLUCOSE; Start 12/26/16 at 14:30 Dextrose (D50w Syringe) 50 ml Q15M PRN IV DECREASED GLUCOSE; Start 12/26/16 at 14:30 Glucagon (Glucagen) 1 mg Q15M PRN IM DECREASED GLUCOSE; Start 12/26/16 at 14:30 Glucose (Glutose) 15 gm Q15M PRN BUCCAL DECREASED GLUCOSE; Start 12/26/16 at 14: 30 Cholecalciferol (Vitamin D) 1,000 unit DAILY PO Last administered on 08:28; Admin Dose 1,000 UNIT; Start 12/28/16 at 09:00 Ondansetron HCl (Zofran Inj) 4 mg Q6H PRN IV NAUSEA AND/OR VOMITING Last administered on 01/15/17 09:50; Admin Dose 4 MG; Start 01/01/17 at 10:00 Haloperidol (Haldol) 2 mg Q4H PRN IM AGITATION/ANXIETY Last administered on 22:46; Admin Dose 2 MG; Start 01/08/17 at 01:30 Acetaminophen (Tylenol Tab) 650 mg Q6H PRN PO PAIN AND OR ELEVATED TEMP Last administered on 01/16/17 10:25; Admin Dose 650 MG; Start 01/08/17 at 22:30 Quetiapine Fumarate (Seroquel) 25 mg QHS PRN PO agitation/hallucinations Last administered on 01/09/17 22:15; Admin Dose 25 MG; Start 01/09/17 at 21:00 Morphine Sulfate (morphine) 2 mg Q8H PRN IV PAIN LEVEL 6-10 Last administered on 01/19/17 16:02; Admin Dose 2 MG; Start 01/11/17 at 14:00 Clonidine (Catapres) 0.1 mg Q6H PRN PO hypertension Last administered on 02:41; Admin Dose 0.1 MG; Start 01/14/17 at 02:30 Hydralazine HCl (Apresoline) 25 mg Q6H PRN IV ELEVATED SYSTOLIC BP Last administered on 01/14/17 07:04; Admin Dose 25 MG; Start 01/14/17 at 07:00 Insulin Glargine (Lantus) 5 unit DAILY@20 SC Last administered on 02/01/17 21 :24; Admin Dose 5 UNIT; Start 01/17/17 at 20:00 Tacrolimus (Prograf) 2 mg Q12 PO Last administered on 02/02/17 08:29; Admin Dose 2 MG; Start 01/18/17 at 09:00 IV Flush (NS 10 ml) 10 ml PRN PRN IV IV PROTOCOL Last administered on 11:54; Admin Dose 10 ML; Start 01/19/17 at 12:30 Acetaminophen/ Hydrocodone Bitart ([place] (5/325)) 1 tab Q8H PRN PO PAIN Last administered on 02/01/17 21:26; Admin Dose 1 TAB; Start 01/19/17 at 14:30 Metoprolol Tartrate (Lopressor) 50 mg BID PO Last administered on 02/02/17 08 :28; Admin Dose 50 MG; Start 01/23/17 at 21:00 Benazepril HCl (Lotensin) 10 mg BID PO Last administered on 02/02/17 08:28; Admin Dose 10 MG; Start 01/31/17 at 21:00 TIM EBNNETT Feb 02, 2017 12:51
--- NOTE | 2017-02-02 13:27 | CONS ---
Date/Time of Note Date/Time of Note DATE: 02/02/17 TIME: 13:26 Assessment/Plan Assessment/Plan Additional Assessment/Plan 1.Lwy-no-recwln test 10/2016 with no ischemia/only scar/NL EF. Negative trop x 3. 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 NO CP now. 2.HTN-now toleratig anti-hypertensives as lower doses - stable overall- will monitpr clinically. 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 4.DM - on meds, keep euglycemic 5.Anemia - H/H stale, no bleed 6. Encephalopathy - much improved Consultation Date/Type/Reason Admit Date/Time Dec 26, 2016 at 13:22 Initial Consult Date 12/27/16 Type of Consultation: NEPHROLOGY Referring Provider: LES GILLILAND 24 HR Interval Summary Free Text/Dictation NO acute events - BP in good range - no CP now, will monitor clinically. ROS: No fever, no chills, no nausea, no vomiting, no diarrhea/constipation No recent weight changes No chest pain, no PND, no orthopnea No dizziness, blurred vision No thirst, no heat or cold intolerance Exam/Review of Systems Vital Signs Vitals Vital Signs Date Time Temp Pulse Resp B/P Pulse Ox O2 Delivery O2 Flow Rate FiO2 02/02/17 07:32 97.7 69 18 136/71 100 Intake and Output 02/01/17 02/01/17 02/02/17 15:00 23:00 07:00 Intake Total 1060 ml 600 ml Output Total 600 ml Balance 460 ml 600 ml Exam General: WN/WD/NAD, AOx 3 HEENT: Unicetric/atraumatic/EOMI (follow commands) NECK: JVD elevated, no thyromegaly Lymph: no lymphadenopathy HEART: regular with no S3, II/ systolic murmur at apex LUNGS: Coarse sounds ABD: soft, NT, ND, +BS : Intact Neuro: non focal SKIN: chronic changes EXT: post op Results Result Diagram: 02/01/17 0744 02/01/17 0531 Results 24 hrs Laboratory Tests Test 02/01/17 17:17 02/01/17 21:20 02/02/17 07:52 02/02/17 11:49 Bedside Glucose 116 103 94 142 Medications Medications Current Medications Aspirin (Halfprin) 81 mg DAILY PO Last administered on 02/02/17 08:28; Admin Dose 81 MG; Start 12/27/16 at 09:00 Clopidogrel Bisulfate (plaVIX) 75 mg DAILY PO Last administered on 02/02/17 08:28; Admin Dose 75 MG; Start 12/27/16 at 09:00 Famotidine (Pepcid) 40 mg HS PO Last administered on 02/01/17 21:25; Admin Dose 40 MG; Start 12/26/16 at 21:00 Folic Acid (Folic Acid) 1 mg DAILY PO Last administered on 02/02/17 08:28; Admin Dose 1 MG; Start 12/27/16 at 09:00 Gabapentin (Neurontin) 100 mg TID PO Last administered on 02/02/17 11:59; Admin Dose 100 MG; Start 12/26/16 at 21:00 Mycophenolate Mofetil (Cellcept) 1,000 mg BID PO Last administered on 08:29; Admin Dose 1,000 MG; Start 12/26/16 at 21:00 Pantoprazole (Protonix Tab) 40 mg DAILY@06 PO Last administered on 02/02/17 05:42; Admin Dose 40 MG; Start 12/27/16 at 06:00 Diagnostic Test (Pha) (Accu-Chek) 1 ea 02 XX ; Start 12/27/16 at 02:00 Miscellaneous Information 1 ea NOTE XX ; Start 12/26/16 at 14:30 Glucose (Glutose) 15 gm Q15M PRN PO DECREASED GLUCOSE; Start 12/26/16 at 14:30 Glucose (Glutose) 22.5 gm Q15M PRN PO DECREASED GLUCOSE; Start 12/26/16 at 14:30 Dextrose (D50w Syringe) 25 ml Q15M PRN IV DECREASED GLUCOSE; Start 12/26/16 at 14:30 Dextrose (D50w Syringe) 50 ml Q15M PRN IV DECREASED GLUCOSE; Start 12/26/16 at 14:30 Glucagon (Glucagen) 1 mg Q15M PRN IM DECREASED GLUCOSE; Start 12/26/16 at 14:30 Glucose (Glutose) 15 gm Q15M PRN BUCCAL DECREASED GLUCOSE; Start 12/26/16 at 14: 30 Cholecalciferol (Vitamin D) 1,000 unit DAILY PO Last administered on 08:28; Admin Dose 1,000 UNIT; Start 12/28/16 at 09:00 Ondansetron HCl (Zofran Inj) 4 mg Q6H PRN IV NAUSEA AND/OR VOMITING Last administered on 01/15/17 09:50; Admin Dose 4 MG; Start 01/01/17 at 10:00 Haloperidol (Haldol) 2 mg Q4H PRN IM AGITATION/ANXIETY Last administered on 22:46; Admin Dose 2 MG; Start 01/08/17 at 01:30 Acetaminophen (Tylenol Tab) 650 mg Q6H PRN PO PAIN AND OR ELEVATED TEMP Last administered on 01/16/17 10:25; Admin Dose 650 MG; Start 01/08/17 at 22:30 Quetiapine Fumarate (Seroquel) 25 mg QHS PRN PO agitation/hallucinations Last administered on 01/09/17 22:15; Admin Dose 25 MG; Start 01/09/17 at 21:00 Morphine Sulfate (morphine) 2 mg Q8H PRN IV PAIN LEVEL 6-10 Last administered on 01/19/17 16:02; Admin Dose 2 MG; Start 01/11/17 at 14:00 Clonidine (Catapres) 0.1 mg Q6H PRN PO hypertension Last administered on 02:41; Admin Dose 0.1 MG; Start 01/14/17 at 02:30 Hydralazine HCl (Apresoline) 25 mg Q6H PRN IV ELEVATED SYSTOLIC BP Last administered on 01/14/17 07:04; Admin Dose 25 MG; Start 01/14/17 at 07:00 Insulin Glargine (Lantus) 5 unit DAILY@20 SC Last administered on 02/01/17 21 :24; Admin Dose 5 UNIT; Start 01/17/17 at 20:00 Tacrolimus (Prograf) 2 mg Q12 PO Last administered on 02/02/17 08:29; Admin Dose 2 MG; Start 01/18/17 at 09:00 IV Flush (NS 10 ml) 10 ml PRN PRN IV IV PROTOCOL Last administered on 11:54; Admin Dose 10 ML; Start 01/19/17 at 12:30 Acetaminophen/ Hydrocodone Bitart ([place] (5/325)) 1 tab Q8H PRN PO PAIN Last administered on 02/01/17 21:26; Admin Dose 1 TAB; Start 01/19/17 at 14:30 Metoprolol Tartrate (Lopressor) 50 mg BID PO Last administered on 02/02/17 08 :28; Admin Dose 50 MG; Start 01/23/17 at 21:00 Benazepril HCl (Lotensin) 10 mg BID PO Last administered on 02/02/17 08:28; Admin Dose 10 MG; Start 01/31/17 at 21:00 MIRELLA MOSER MD Feb 02, 2017 13:27
--- NOTE | 2017-02-02 13:40 | PN ---
Date/Time of Note Date/Time of Note DATE: 02/02/17 TIME: 13:39 Assessment/Plan VTE Prophylaxis VTE Prophylaxis Intervention: other Lines/Catheters IV [facility] Type ([facility] PICC Line Central line still needed: Yes Urinary Cath still in place: No Assessment/Plan Chief Complaint/Hosp Course - Acute encephalopathy, resolved. CT brain is negative for any acute pathology. 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 S/p left AKA 01/[address] Valencia, vascular surgery. - Diabetes mellitus type II. Continue Lantus and NovoLog. - History of kidney transplant in 2009, on immunosuppressive therapy. - Hypertension. Continue metoprolol, benazepril. 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 - Anemia of chronic kidney disease. Problems: Subjective 24 Hr Interval Summary Free Text/Dictation Patient has no complaints Exam/Review of Systems Vital Signs Vitals Vital Signs Date Time Temp Pulse Resp B/P Pulse Ox O2 Delivery O2 Flow Rate FiO2 02/02/17 07:32 97.7 69 18 136/71 100 Intake and Output 02/01/17 02/01/17 02/02/17 15:00 23:00 07:00 Intake Total 1060 ml 600 ml Output Total 600 ml Balance 460 ml 600 ml Exam Constitutional: well developed Head: atraumatic, normocephalic Neck: supple Cardiovascular: regular rate and rhythm Gastrointestinal: soft Genitourinary - Female: nl adnexae Extremities: normal pulses Results Result Diagram: 02/01/17 0744 02/01/17 0531 Results 24 hrs Laboratory Tests Test 02/01/17 17:17 02/01/17 21:20 02/02/17 07:52 02/02/17 11:49 Bedside Glucose 116 103 94 142 Medications Medications Current Medications Aspirin (Halfprin) 81 mg DAILY PO Last administered on 02/02/17 08:28; Admin Dose 81 MG; Start 12/27/16 at 09:00 Clopidogrel Bisulfate (plaVIX) 75 mg DAILY PO Last administered on 02/02/17 08:28; Admin Dose 75 MG; Start 12/27/16 at 09:00 Famotidine (Pepcid) 40 mg HS PO Last administered on 02/01/17 21:25; Admin Dose 40 MG; Start 12/26/16 at 21:00 Folic Acid (Folic Acid) 1 mg DAILY PO Last administered on 02/02/17 08:28; Admin Dose 1 MG; Start 12/27/16 at 09:00 Gabapentin (Neurontin) 100 mg TID PO Last administered on 02/02/17 11:59; Admin Dose 100 MG; Start 12/26/16 at 21:00 Mycophenolate Mofetil (Cellcept) 1,000 mg BID PO Last administered on 08:29; Admin Dose 1,000 MG; Start 12/26/16 at 21:00 Pantoprazole (Protonix Tab) 40 mg DAILY@06 PO Last administered on 02/02/17 05:42; Admin Dose 40 MG; Start 12/27/16 at 06:00 Diagnostic Test (Pha) (Accu-Chek) 1 ea 02 XX ; Start 12/27/16 at 02:00 Miscellaneous Information 1 ea NOTE XX ; Start 12/26/16 at 14:30 Glucose (Glutose) 15 gm Q15M PRN PO DECREASED GLUCOSE; Start 12/26/16 at 14:30 Glucose (Glutose) 22.5 gm Q15M PRN PO DECREASED GLUCOSE; Start 12/26/16 at 14:30 Dextrose (D50w Syringe) 25 ml Q15M PRN IV DECREASED GLUCOSE; Start 12/26/16 at 14:30 Dextrose (D50w Syringe) 50 ml Q15M PRN IV DECREASED GLUCOSE; Start 12/26/16 at 14:30 Glucagon (Glucagen) 1 mg Q15M PRN IM DECREASED GLUCOSE; Start 12/26/16 at 14:30 Glucose (Glutose) 15 gm Q15M PRN BUCCAL DECREASED GLUCOSE; Start 12/26/16 at 14: 30 Cholecalciferol (Vitamin D) 1,000 unit DAILY PO Last administered on 08:28; Admin Dose 1,000 UNIT; Start 12/28/16 at 09:00 Ondansetron HCl (Zofran Inj) 4 mg Q6H PRN IV NAUSEA AND/OR VOMITING Last administered on 01/15/17 09:50; Admin Dose 4 MG; Start 01/01/17 at 10:00 Haloperidol (Haldol) 2 mg Q4H PRN IM AGITATION/ANXIETY Last administered on 22:46; Admin Dose 2 MG; Start 01/08/17 at 01:30 Acetaminophen (Tylenol Tab) 650 mg Q6H PRN PO PAIN AND OR ELEVATED TEMP Last administered on 01/16/17 10:25; Admin Dose 650 MG; Start 01/08/17 at 22:30 Quetiapine Fumarate (Seroquel) 25 mg QHS PRN PO agitation/hallucinations Last administered on 01/09/17 22:15; Admin Dose 25 MG; Start 01/09/17 at 21:00 Morphine Sulfate (morphine) 2 mg Q8H PRN IV PAIN LEVEL 6-10 Last administered on 01/19/17 16:02; Admin Dose 2 MG; Start 01/11/17 at 14:00 Clonidine (Catapres) 0.1 mg Q6H PRN PO hypertension Last administered on 02:41; Admin Dose 0.1 MG; Start 01/14/17 at 02:30 Hydralazine HCl (Apresoline) 25 mg Q6H PRN IV ELEVATED SYSTOLIC BP Last administered on 01/14/17 07:04; Admin Dose 25 MG; Start 01/14/17 at 07:00 Insulin Glargine (Lantus) 5 unit DAILY@20 SC Last administered on 02/01/17 21 :24; Admin Dose 5 UNIT; Start 01/17/17 at 20:00 Tacrolimus (Prograf) 2 mg Q12 PO Last administered on 02/02/17 08:29; Admin Dose 2 MG; Start 01/18/17 at 09:00 IV Flush (NS 10 ml) 10 ml PRN PRN IV IV PROTOCOL Last administered on 11:54; Admin Dose 10 ML; Start 01/19/17 at 12:30 Acetaminophen/ Hydrocodone Bitart ([place] (5/325)) 1 tab Q8H PRN PO PAIN Last administered on 02/01/17 21:26; Admin Dose 1 TAB; Start 01/19/17 at 14:30 Metoprolol Tartrate (Lopressor) 50 mg BID PO Last administered on 02/02/17 08 :28; Admin Dose 50 MG; Start 01/23/17 at 21:00 Benazepril HCl (Lotensin) 10 mg BID PO Last administered on 02/02/17 08:28; Admin Dose 10 MG; Start 01/31/17 at 21:00 RUPERTO ANDUJAR Feb 02, 2017 13:40
[2017-02-02 14:00] VITALS: BP 122/69; RESP 17
--- NOTE | 2017-02-02 14:54 | PN ---
Date/Time of Note Date/Time of Note DATE: 02/02/17 TIME: 14:52 Assessment/Plan Lines/Catheters IV Catheter Type (from Nrsg): PICC Line [place] in Place (from Nrsg): No Assessment/Plan Chief Complaint/Hosp Course -Bilateral lower extremity atherosclerosis with bilateral foot gangrene: S/P Left AKA -Her medial aspect of the AKA has developed superficial eschar that may be related to damian wrap dressing, recommend applying just gauze with Betadine paint daily -PT/OT as tolerated -Unfortunately she may encounter the same issue with her RLE. However, at the moment no significant rest pain reported and stable -Optimize vascular status (BP medications, diet, nutrition and exercise, sugar control, antiplatelets). -Podiatry colleagues are involved with the local wound care -Discussed findings, plan and management with the patient with a certified gas generator operator and she understands. -Thank you for allowing us to partake in the care of your patient. Please call with any questions. Problems: Subjective 24 Hr Interval Summary no new vascular events overnight Exam/Review of Systems Vital Signs Vitals Vital Signs Date Time Temp Pulse Resp B/P Pulse Ox O2 Delivery O2 Flow Rate FiO2 02/02/17 07:32 97.7 69 18 136/71 100 Intake and Output 02/01/17 02/01/17 02/02/17 15:00 23:00 07:00 Intake Total 1060 ml 600 ml Output Total 600 ml Balance 460 ml 600 ml Exam Free Text/Dictation Alert and oriented x3 LUNGS: Clear to auscultation bilaterally. CARDIOVASCULAR: S1 and S2 present ABDOMEN: Soft, nontender and nondistended. Bowel sounds positive. Surgical scar well healed. EXTREMITIES: -Right lower extremity faint femoral pulse. Nonpalpable pedal pulse. Motor and sensory intact. Capillary refill 4 seconds. 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 -Left lower extremity faint femoral pulse. AKA-stump intact with art dry. her medial aspect has developed superficial eschar that may be related to damian wrap dressing Results Result Diagram: 02/01/17 0744 02/01/17 0531 WILD DUARTE MD Feb 02, 2017 14:54
[2017-02-02] MEDS: HYDROCODONE/APAP (5/325) TAB PO PRN (14:56)
--- NOTE | 2017-02-02 16:00 | CONS ---
Date/Time of Note Date/Time of Note DATE: 02/02/17 TIME: 15:54 Assessment/Plan Assessment/Plan Chief Complaint/Hosp Course ID PROGRESS NOTE CURRENT ABX: =>OFF ABX 24H INTERVAL SUMMARY * s/p 01/13/17 Left AKA =>Nurses report concern about eschar on left stump -- seen by APC who recommended paint the healing stump wound with betadine. * NO fevers, VSS, NAD, tells me she has "poquito dolor"; pain is well controlled * Right foot with open non-healing wound 5th digit amputation site, wound is dry , gangrenous dry changes -> s/p Ertapenem for ESBL right wound infx. EXAM GEN: VSS, NAD HEENT: Unremarkable NECK: supple CVS: RRR, S1 and S2 CHEST: Equal chest rise bilaterally without dyspnea on observation ABD: Soft, NT, EXT: warm, DSG C/D/I SKIN: No rash, no diaphoresis ID ASSESSMENT 61 yo F admit with: 1. Bilateral lower extremities gangrene secondary to severe peripheral arterial disease, failed debridement and revascularization procedures. * s/p 01/13/17 Left AKA * Pending R-AKA -> s/p Ertapenem ABX course for R 5th digit amputation Foot wound Cx (+) ESCHERICHIA COLI (ESBL) 2. Diabetes. 3. History of kidney transplant in 2009, on immunosuppressive therapy. 4. Diabetes. 5. Hypertension. 6. Hx of E.coli-ESBL UTI 7. ABX associated diarrhea => resolved off ABX INVASIVES: PICC 01/19/17 ABX ALLERGY: PCN CURRENT ABX: =>OFF ABX ID RECOMMENDATIONS 1. Left stump wound superficial eschar ?superficial infection ? * Patient is high risk due to immunocompromised status; hence, I swabbed left stump eschar soft, moist wound for cx 2. > per notes possible R-AKA pending, s/p L-AKA . . Problems: Consultation Date/Type/Reason Admit Date/Time Dec 26, 2016 at 13:22 Initial Consult Date 12/27/16 Type of Consultation: ID Referring Provider: LES GILLILAND Exam/Review of Systems Vital Signs Vitals Vital Signs Date Time Temp Pulse Resp B/P Pulse Ox O2 Delivery O2 Flow Rate FiO2 02/02/17 07:32 97.7 69 18 136/71 100 Intake and Output 02/01/17 02/01/17 02/02/17 15:00 23:00 07:00 Intake Total 1060 ml 600 ml Output Total 600 ml Balance 460 ml 600 ml Results Result Diagram: 02/01/17 0744 02/01/17 0531 Results 24 hrs Laboratory Tests Test 02/01/17 17:17 02/01/17 21:20 02/02/17 07:52 02/02/17 11:49 Bedside Glucose 116 103 94 142 Medications Medications Current Medications Aspirin (Halfprin) 81 mg DAILY PO Last administered on 02/02/17 08:28; Admin Dose 81 MG; Start 12/27/16 at 09:00 Clopidogrel Bisulfate (plaVIX) 75 mg DAILY PO Last administered on 02/02/17 08:28; Admin Dose 75 MG; Start 12/27/16 at 09:00 Famotidine (Pepcid) 40 mg HS PO Last administered on 02/01/17 21:25; Admin Dose 40 MG; Start 12/26/16 at 21:00 Folic Acid (Folic Acid) 1 mg DAILY PO Last administered on 02/02/17 08:28; Admin Dose 1 MG; Start 12/27/16 at 09:00 Gabapentin (Neurontin) 100 mg TID PO Last administered on 02/02/17 11:59; Admin Dose 100 MG; Start 12/26/16 at 21:00 Mycophenolate Mofetil (Cellcept) 1,000 mg BID PO Last administered on 08:29; Admin Dose 1,000 MG; Start 12/26/16 at 21:00 Pantoprazole (Protonix Tab) 40 mg DAILY@06 PO Last administered on 02/02/17 05:42; Admin Dose 40 MG; Start 12/27/16 at 06:00 Diagnostic Test (Pha) (Accu-Chek) 1 ea 02 XX ; Start 12/27/16 at 02:00 Miscellaneous Information 1 ea NOTE XX ; Start 12/26/16 at 14:30 Glucose (Glutose) 15 gm Q15M PRN PO DECREASED GLUCOSE; Start 12/26/16 at 14:30 Glucose (Glutose) 22.5 gm Q15M PRN PO DECREASED GLUCOSE; Start 12/26/16 at 14:30 Dextrose (D50w Syringe) 25 ml Q15M PRN IV DECREASED GLUCOSE; Start 12/26/16 at 14:30 Dextrose (D50w Syringe) 50 ml Q15M PRN IV DECREASED GLUCOSE; Start 12/26/16 at 14:30 Glucagon (Glucagen) 1 mg Q15M PRN IM DECREASED GLUCOSE; Start 12/26/16 at 14:30 Glucose (Glutose) 15 gm Q15M PRN BUCCAL DECREASED GLUCOSE; Start 12/26/16 at 14: 30 Cholecalciferol (Vitamin D) 1,000 unit DAILY PO Last administered on 08:28; Admin Dose 1,000 UNIT; Start 12/28/16 at 09:00 Ondansetron HCl (Zofran Inj) 4 mg Q6H PRN IV NAUSEA AND/OR VOMITING Last administered on 01/15/17 09:50; Admin Dose 4 MG; Start 01/01/17 at 10:00 Haloperidol (Haldol) 2 mg Q4H PRN IM AGITATION/ANXIETY Last administered on 22:46; Admin Dose 2 MG; Start 01/08/17 at 01:30 Acetaminophen (Tylenol Tab) 650 mg Q6H PRN PO PAIN AND OR ELEVATED TEMP Last administered on 01/16/17 10:25; Admin Dose 650 MG; Start 01/08/17 at 22:30 Quetiapine Fumarate (Seroquel) 25 mg QHS PRN PO agitation/hallucinations Last administered on 01/09/17 22:15; Admin Dose 25 MG; Start 01/09/17 at 21:00 Morphine Sulfate (morphine) 2 mg Q8H PRN IV PAIN LEVEL 6-10 Last administered on 01/19/17 16:02; Admin Dose 2 MG; Start 01/11/17 at 14:00 Clonidine (Catapres) 0.1 mg Q6H PRN PO hypertension Last administered on 02:41; Admin Dose 0.1 MG; Start 01/14/17 at 02:30 Hydralazine HCl (Apresoline) 25 mg Q6H PRN IV ELEVATED SYSTOLIC BP Last administered on 01/14/17 07:04; Admin Dose 25 MG; Start 01/14/17 at 07:00 Insulin Glargine (Lantus) 5 unit DAILY@20 SC Last administered on 02/01/17 21 :24; Admin Dose 5 UNIT; Start 01/17/17 at 20:00 Tacrolimus (Prograf) 2 mg Q12 PO Last administered on 02/02/17 08:29; Admin Dose 2 MG; Start 01/18/17 at 09:00 IV Flush (NS 10 ml) 10 ml PRN PRN IV IV PROTOCOL Last administered on 11:54; Admin Dose 10 ML; Start 01/19/17 at 12:30 Acetaminophen/ Hydrocodone Bitart ([place] (5/325)) 1 tab Q8H PRN PO PAIN Last administered on 02/02/17 14:56; Admin Dose 1 TAB; Start 01/19/17 at 14:30 Metoprolol Tartrate (Lopressor) 50 mg BID PO Last administered on 02/02/17 08 :28; Admin Dose 50 MG; Start 01/23/17 at 21:00 Benazepril HCl (Lotensin) 10 mg BID PO Last administered on 02/02/17 08:28; Admin Dose 10 MG; Start 01/31/17 at 21:00 HAMZAH GARZA NP Feb 02, 2017 16:00
[2017-02-02 20:00] VITALS: BP 104/59; RESP 19
[2017-02-02] MEDS: FAMOTIDINE 20 MG TAB PO SCH (20:31)
[2017-02-02] MEDS: INSULIN GLARGINE [LANtus] 3 ML PEN SC SCH (20:39)
[2017-02-03 02:00] VITALS: BP 114/55; RESP 18
[2017-02-03] MEDS: ACCU-CHEK XX SCH (02:00)
[2017-02-03] MEDS: PANTOPRAZOLE (EC) 40 MG TAB PO SCH (05:37)
[2017-02-03 05:40] LABS: BASOPHILS % 0.5 % (0.0-2.0); EOSINOPHILS # 0.1 10^3/ul (0.0-0.5); EOSINOPHILS % 2.3 % (0.0-7.0); HEMATOCRIT 29.9 % (37.0-47.0); HEMOGLOBIN 9.6 g/dl (12.0-16.0); LYMPHOCYTES # 0.9 10^3/ul (0.8-2.9); LYMPHOCYTES % 21.4 % (15.0-51.0); MEAN CORPUSCULAR HEMOGLOBIN 27.5 pg (29.0-33.0); MEAN CORPUSCULAR HGB CONC 32.1 g/dl (32.0-37.0); MEAN CORPUSCULAR VOLUME 85.7 fl (82.0-101.0); MEAN PLATELET VOLUME 11.3 fl (7.4-10.4); MONOCYTE # 0.6 10^3/ul (0.3-0.9); MONOCYTES % 14.7 % (0.0-11.0); NEUTROPHIL # 2.6 10^3/ul (1.6-7.5); NEUTROPHILS % 60.9 % (39.0-77.0); PLATELET COUNT 278 10^3/UL (140-415); RED BLOOD COUNT 3.49 10^6/ul (4.20-5.40); RED CELL DISTRIBUTION WIDTH 14.9 % (11.5-14.5); WHITE BLOOD COUNT 4.3 10^3/ul (4.8-10.8)
[2017-02-03 06:23] LABS: CALCIUM 9.7 mg/dl (8.4-10.2); CREATININE 0.68 mg/dl (0.44-1.00); POTASSIUM 4.5 mmol/L (3.5-5.1)
[2017-02-03 08:00] VITALS: BP 148/71; RESP 19
[2017-02-03] MEDS: INSULIN ASPART [NOVOLOG] 3 ML PEN SC SCH ×4 (08:00→21:00)
[2017-02-03] MEDS: GABAPENTIN 100 MG CAP PO SCH ×3 (09:28→20:27)
[2017-02-03] MEDS: CLOPIDOGREL 75 MG TAB PO SCH (09:28)
[2017-02-03] MEDS: FOLIC ACID 1 MG TAB PO SCH (09:28)
[2017-02-03] MEDS: BENAZEPRIL 10 MG TAB PO SCH ×2 (09:28→20:28)
[2017-02-03] MEDS: ASPIRIN (EC) 81 MG TAB PO SCH (09:28)
[2017-02-03] MEDS: TACROLIMUS 1 MG CAP PO SCH ×2 (09:28→20:27)
[2017-02-03] MEDS: CHOLECALCIFEROL 1,000 UNIT TAB PO SCH (09:29)
[2017-02-03] MEDS: METOPROLOL 50 MG TAB PO SCH ×2 (09:29→20:28)
--- NOTE | 2017-02-03 10:26 | CONS ---
Date/Time of Note Date/Time of Note DATE: 02/03/17 TIME: 10:25 Assessment/Plan Assessment/Plan Additional Assessment/Plan 1. 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 h/o donor kidney transplant in 2009 at [facility], currently on immunosuppression with Prograf, CellCept 4. 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 History of hypertension. 6. History of diabetes mellitus. 7. History of previous left upper extremity arteriovenous fistula. 8. Hyponatremia due to hypovolemic hyponatremia post op 9. -CT chest+ abd+pelvis with and without contrast negative for mass/LAD/ Malignancy Plan: continue Current immunosuppression Prograf and cellcept, Na dropped to 130 from 138 yesteday, will give NS 1 liter then stop s/p Left AKA, off IV abx now, continue lotensin for now ID following will follow up Consultation Date/Type/Reason Admit Date/Time Dec 26, 2016 at 13:22 Initial Consult Date 12/27/16 Type of Consultation: NEPHROLOGY Referring Provider: LES GILLILAND 24 HR Interval Summary Free Text/Dictation Na 130 today from 138 yesterday, Cr normal Exam/Review of Systems Vital Signs Vitals Vital Signs Date Time Temp Pulse Resp B/P Pulse Ox O2 Delivery O2 Flow Rate FiO2 02/03/17 08:00 97.7 72 19 148/71 100 Intake and Output 02/02/17 02/02/17 02/03/17 15:00 23:00 07:00 Intake Total 680 ml 250 ml Output Total 700 ml Balance -20 ml 250 ml Exam GEN: fragile elderly woman who is awake in no distress. HEENT: Head atraumatic, normocephalic. Sclerae anicteric. NECK: Supple. CHEST: Rise symmetrical. Breath sounds clear. HEART: S1, S2. ABDOMEN: Soft, bowel sounds present. left BKA dressing clean Results Result Diagram: 02/03/17 0413 02/03/17 0413 Results 24 hrs Laboratory Tests Test 02/02/17 11:49 02/02/17 17:01 02/02/17 20:27 02/03/17 04:13 Bedside Glucose 142 111 103 White Blood Count 4.3 L Red Blood Count 3.49 L Hemoglobin 9.6 L Hematocrit 29.9 L Mean Corpuscular Volume 85.7 Mean Corpuscular Hemoglobin 27.5 L Mean Corpuscular Hemoglobin Concent 32.1 Red Cell Distribution Width 14.9 H Platelet Count 278 Mean Platelet Volume 11.3 H Neutrophils % 60.9 Lymphocytes % 21.4 Monocytes % 14.7 H Eosinophils % 2.3 Basophils % 0.5 Nucleated Red Blood Cells % 0.0 Neutrophils # 2.6 Lymphocytes # 0.9 Monocytes # 0.6 Eosinophils # 0.1 Basophils # 0.0 Nucleated Red Blood Cells # 0.0 Sodium Level 130 L Potassium Level 4.5 Chloride Level 96 L Carbon Dioxide Level 29 Anion Gap 10 Blood Urea Nitrogen 24 H Creatinine 0.68 Glucose Level 91 Calcium Level 9.7 Test 02/03/17 08:17 Bedside Glucose 107 Medications Medications Current Medications Aspirin (Halfprin) 81 mg DAILY PO Last administered on 02/03/17 09:28; Admin Dose 81 MG; Start 12/27/16 at 09:00 Clopidogrel Bisulfate (plaVIX) 75 mg DAILY PO Last administered on 02/03/17 09:28; Admin Dose 75 MG; Start 12/27/16 at 09:00 Famotidine (Pepcid) 40 mg HS PO Last administered on 02/02/17 20:31; Admin Dose 40 MG; Start 12/26/16 at 21:00 Folic Acid (Folic Acid) 1 mg DAILY PO Last administered on 02/03/17 09:28; Admin Dose 1 MG; Start 12/27/16 at 09:00 Gabapentin (Neurontin) 100 mg TID PO Last administered on 02/03/17 09:28; Admin Dose 100 MG; Start 12/26/16 at 21:00 Mycophenolate Mofetil (Cellcept) 1,000 mg BID PO Last administered on 23:39; Admin Dose 1,000 MG; Start 12/26/16 at 21:00 Pantoprazole (Protonix Tab) 40 mg DAILY@06 PO Last administered on 02/03/17 05:37; Admin Dose 40 MG; Start 12/27/16 at 06:00 Diagnostic Test (Pha) (Accu-Chek) 1 ea 02 XX ; Start 12/27/16 at 02:00 Miscellaneous Information 1 ea NOTE XX ; Start 12/26/16 at 14:30 Glucose (Glutose) 15 gm Q15M PRN PO DECREASED GLUCOSE; Start 12/26/16 at 14:30 Glucose (Glutose) 22.5 gm Q15M PRN PO DECREASED GLUCOSE; Start 12/26/16 at 14:30 Dextrose (D50w Syringe) 25 ml Q15M PRN IV DECREASED GLUCOSE; Start 12/26/16 at 14:30 Dextrose (D50w Syringe) 50 ml Q15M PRN IV DECREASED GLUCOSE; Start 12/26/16 at 14:30 Glucagon (Glucagen) 1 mg Q15M PRN IM DECREASED GLUCOSE; Start 12/26/16 at 14:30 Glucose (Glutose) 15 gm Q15M PRN BUCCAL DECREASED GLUCOSE; Start 12/26/16 at 14: 30 Cholecalciferol (Vitamin D) 1,000 unit DAILY PO Last administered on 09:29; Admin Dose 1,000 UNIT; Start 12/28/16 at 09:00 Ondansetron HCl (Zofran Inj) 4 mg Q6H PRN IV NAUSEA AND/OR VOMITING Last administered on 01/15/17 09:50; Admin Dose 4 MG; Start 01/01/17 at 10:00 Haloperidol (Haldol) 2 mg Q4H PRN IM AGITATION/ANXIETY Last administered on 22:46; Admin Dose 2 MG; Start 01/08/17 at 01:30 Acetaminophen (Tylenol Tab) 650 mg Q6H PRN PO PAIN AND OR ELEVATED TEMP Last administered on 01/16/17 10:25; Admin Dose 650 MG; Start 01/08/17 at 22:30 Quetiapine Fumarate (Seroquel) 25 mg QHS PRN PO agitation/hallucinations Last administered on 01/09/17 22:15; Admin Dose 25 MG; Start 01/09/17 at 21:00 Morphine Sulfate (morphine) 2 mg Q8H PRN IV PAIN LEVEL 6-10 Last administered on 01/19/17 16:02; Admin Dose 2 MG; Start 01/11/17 at 14:00 Clonidine (Catapres) 0.1 mg Q6H PRN PO hypertension Last administered on 02:41; Admin Dose 0.1 MG; Start 01/14/17 at 02:30 Hydralazine HCl (Apresoline) 25 mg Q6H PRN IV ELEVATED SYSTOLIC BP Last administered on 01/14/17 07:04; Admin Dose 25 MG; Start 01/14/17 at 07:00 Insulin Glargine (Lantus) 5 unit DAILY@20 SC Last administered on 02/02/17 20 :39; Admin Dose 5 UNIT; Start 01/17/17 at 20:00 Tacrolimus (Prograf) 2 mg Q12 PO Last administered on 02/03/17 09:28; Admin Dose 2 MG; Start 01/18/17 at 09:00 IV Flush (NS 10 ml) 10 ml PRN PRN IV IV PROTOCOL Last administered on 11:54; Admin Dose 10 ML; Start 01/19/17 at 12:30 Acetaminophen/ Hydrocodone Bitart ([place] (5/325)) 1 tab Q8H PRN PO PAIN Last administered on 02/02/17 14:56; Admin Dose 1 TAB; Start 01/19/17 at 14:30 Metoprolol Tartrate (Lopressor) 50 mg BID PO Last administered on 02/03/17 09 :29; Admin Dose 50 MG; Start 01/23/17 at 21:00 Benazepril HCl (Lotensin) 10 mg BID PO Last administered on 02/03/17 09:28; Admin Dose 10 MG; Start 01/31/17 at 21:00 RAMON KEMP MD Feb 03, 2017 10:26
[2017-02-03] MEDS: MYCOPHENOLATE 250 MG CAP PO SCH ×2 (11:02→20:28)
[2017-02-03] MEDS: SOD CHLORIDE 0.9% 1,000 ML IV SCH ×2 (11:02→23:39)
[2017-02-03 14:00] VITALS: BP 125/65; RESP 18
--- NOTE | 2017-02-03 14:18 | PN ---
Date/Time of Note Date/Time of Note DATE: 02/03/17 TIME: 14:13 Assessment/Plan VTE Prophylaxis VTE Prophylaxis Intervention: SCD's Lines/Catheters IV Catheter Type (from Nrs): PICC Line Central line still needed: Yes Urinary Cath still in place: No Assessment/Plan Chief Complaint/Hosp Course Patient remains hemodynamically stable,stump with necrotic tissue, no drainage, pain is well controlled, continue physical therapy, pending acute rehabilitation placement. Assessment/Plan - Acute encephalopathy, resolved. CT brain is negative for any acute pathology. 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 S/p left AKA 01/[address] Valencia, vascular surgery. - Diabetes mellitus type II. Continue Lantus and NovoLog. - History of kidney transplant in 2009, on immunosuppressive therapy. - Hypertension. Continue metoprolol, benazepril. 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 - Anemia of chronic kidney disease. Further recommendations based on clinical course. Plan of care discussed with Dr. Cohen Problems: Exam/Review of Systems Vital Signs Vitals Vital Signs Date Time Temp Pulse Resp B/P Pulse Ox O2 Delivery O2 Flow Rate FiO2 02/03/17 08:00 97.7 72 19 148/71 100 Intake and Output 02/02/17 02/02/17 02/03/17 15:00 23:00 07:00 Intake Total 680 ml 250 ml Output Total 700 ml Balance -20 ml 250 ml Exam Constitutional: awake, alert Neck: supple Respiratory: clear to auscultation Cardiovascular: nl pulses Gastrointestinal: non-tender, soft Extremities: other (S/p LAKA, eschar) Results Result Diagram: 02/03/17 0413 02/03/17 0413 Results 24 hrs Laboratory Tests Test 02/02/17 17:01 02/02/17 20:27 02/03/17 04:13 02/03/17 08:17 Bedside Glucose 111 103 107 White Blood Count 4.3 L Red Blood Count 3.49 L Hemoglobin 9.6 L Hematocrit 29.9 L Mean Corpuscular Volume 85.7 Mean Corpuscular Hemoglobin 27.5 L Mean Corpuscular Hemoglobin Concent 32.1 Red Cell Distribution Width 14.9 H Platelet Count 278 Mean Platelet Volume 11.3 H Neutrophils % 60.9 Lymphocytes % 21.4 Monocytes % 14.7 H Eosinophils % 2.3 Basophils % 0.5 Nucleated Red Blood Cells % 0.0 Neutrophils # 2.6 Lymphocytes # 0.9 Monocytes # 0.6 Eosinophils # 0.1 Basophils # 0.0 Nucleated Red Blood Cells # 0.0 Sodium Level 130 L Potassium Level 4.5 Chloride Level 96 L Carbon Dioxide Level 29 Anion Gap 10 Blood Urea Nitrogen 24 H Creatinine 0.68 Glucose Level 91 Calcium Level 9.7 Test 02/03/17 11:06 Bedside Glucose 117 Medications Medications Current Medications Aspirin (Halfprin) 81 mg DAILY PO Last administered on 02/03/17 09:28; Admin Dose 81 MG; Start 12/27/16 at 09:00 Clopidogrel Bisulfate (plaVIX) 75 mg DAILY PO Last administered on 02/03/17 09:28; Admin Dose 75 MG; Start 12/27/16 at 09:00 Famotidine (Pepcid) 40 mg HS PO Last administered on 02/02/17 20:31; Admin Dose 40 MG; Start 12/26/16 at 21:00 Folic Acid (Folic Acid) 1 mg DAILY PO Last administered on 02/03/17 09:28; Admin Dose 1 MG; Start 12/27/16 at 09:00 Gabapentin (Neurontin) 100 mg TID PO Last administered on 02/03/17 12:48; Admin Dose 100 MG; Start 12/26/16 at 21:00 Mycophenolate Mofetil (Cellcept) 1,000 mg BID PO Last administered on 11:02; Admin Dose 1,000 MG; Start 12/26/16 at 21:00 Pantoprazole (Protonix Tab) 40 mg DAILY@06 PO Last administered on 02/03/17 05:37; Admin Dose 40 MG; Start 12/27/16 at 06:00 Diagnostic Test (Pha) (Accu-Chek) 1 ea 02 XX ; Start 12/27/16 at 02:00 Miscellaneous Information 1 ea NOTE XX ; Start 12/26/16 at 14:30 Glucose (Glutose) 15 gm Q15M PRN PO DECREASED GLUCOSE; Start 12/26/16 at 14:30 Glucose (Glutose) 22.5 gm Q15M PRN PO DECREASED GLUCOSE; Start 12/26/16 at 14:30 Dextrose (D50w Syringe) 25 ml Q15M PRN IV DECREASED GLUCOSE; Start 12/26/16 at 14:30 Dextrose (D50w Syringe) 50 ml Q15M PRN IV DECREASED GLUCOSE; Start 12/26/16 at 14:30 Glucagon (Glucagen) 1 mg Q15M PRN IM DECREASED GLUCOSE; Start 12/26/16 at 14:30 Glucose (Glutose) 15 gm Q15M PRN BUCCAL DECREASED GLUCOSE; Start 12/26/16 at 14: 30 Cholecalciferol (Vitamin D) 1,000 unit DAILY PO Last administered on 09:29; Admin Dose 1,000 UNIT; Start 12/28/16 at 09:00 Ondansetron HCl (Zofran Inj) 4 mg Q6H PRN IV NAUSEA AND/OR VOMITING Last administered on 01/15/17 09:50; Admin Dose 4 MG; Start 01/01/17 at 10:00 Haloperidol (Haldol) 2 mg Q4H PRN IM AGITATION/ANXIETY Last administered on 22:46; Admin Dose 2 MG; Start 01/08/17 at 01:30 Acetaminophen (Tylenol Tab) 650 mg Q6H PRN PO PAIN AND OR ELEVATED TEMP Last administered on 01/16/17 10:25; Admin Dose 650 MG; Start 01/08/17 at 22:30 Quetiapine Fumarate (Seroquel) 25 mg QHS PRN PO agitation/hallucinations Last administered on 01/09/17 22:15; Admin Dose 25 MG; Start 01/09/17 at 21:00 Morphine Sulfate (morphine) 2 mg Q8H PRN IV PAIN LEVEL 6-10 Last administered on 01/19/17 16:02; Admin Dose 2 MG; Start 01/11/17 at 14:00 Clonidine (Catapres) 0.1 mg Q6H PRN PO hypertension Last administered on 02:41; Admin Dose 0.1 MG; Start 01/14/17 at 02:30 Hydralazine HCl (Apresoline) 25 mg Q6H PRN IV ELEVATED SYSTOLIC BP Last administered on 01/14/17 07:04; Admin Dose 25 MG; Start 01/14/17 at 07:00 Insulin Glargine (Lantus) 5 unit DAILY@20 SC Last administered on 02/02/17 20 :39; Admin Dose 5 UNIT; Start 01/17/17 at 20:00 Tacrolimus (Prograf) 2 mg Q12 PO Last administered on 02/03/17 09:28; Admin Dose 2 MG; Start 01/18/17 at 09:00 IV Flush (NS 10 ml) 10 ml PRN PRN IV IV PROTOCOL Last administered on 11:54; Admin Dose 10 ML; Start 01/19/17 at 12:30 Acetaminophen/ Hydrocodone Bitart ([place] (5/325)) 1 tab Q8H PRN PO PAIN Last administered on 02/02/17 14:56; Admin Dose 1 TAB; Start 01/19/17 at 14:30 Metoprolol Tartrate (Lopressor) 50 mg BID PO Last administered on 02/03/17 09 :29; Admin Dose 50 MG; Start 01/23/17 at 21:00 Benazepril HCl 10 mg 10 mg BID PO Last administered on 02/03/17 09:28; Admin Dose 10 MG; Start 01/31/17 at 21:00 Sodium Chloride (NS) 1,000 ml @ 80 mls/hr [id number] IV Last administered on 11:02; Admin Dose 80 MLS/HR; Start 02/03/17 at 10:30 LES GILLILAND Feb 03, 2017 14:18
--- NOTE | 2017-02-03 16:26 | CONS ---
Date/Time of Note Date/Time of Note DATE: 02/03/17 TIME: 16:22 Assessment/Plan Assessment/Plan Chief Complaint/Hosp Course SUBJECTIVE DATA: No events overnight. The patient is awake, looks comfortable, complaining of pain. She is afebrile. LABORATORY AND DIAGNOSTIC DATA: reviewed. ANTIMICROBIALS: The patient remains on doxycycline and meropenem. Rt foot cx ESBL PHYSICAL EXAMINATION: This is a fragile, well-developed, elderly woman, who is alert, in no distress. HEENT: Head is atraumatic and normocephalic. Sclerae are anicteric. Buccal mucosa is pink. NECK: Supple. LUNGS: Chest rise is symmetrical. Breath sounds are clear. HEART: S1, S2. ABDOMEN: Soft. Bowel sounds are present. EXTREMITIES: With bilateral foot gangrene. There is an open wound next to her little finger on the right with some drainage. ASSESSMENT: 1. Bilateral lower extremities gangrene secondary to severe peripheral arterial disease, failed debridement and revascularization procedures. 2. Diabetes. 3. History of kidney transplant in 2009, on immunosuppressive therapy. 4. Diabetes. 5. Hypertension. PLAN: The patient remains clinically unchanged. As per vascular note, the patient will require bilateral BKA or AKA. Cleared by cardiology for surgery. D/C alexandrey, change Meropenem to Invanz. F/U Vascular surgery Recommendations. Problems: Consultation Date/Type/Reason Admit Date/Time Dec 26, 2016 at 13:22 Initial Consult Date Chief Complaint/Hosp Course SUBJECTIVE DATA: No acute events. Patient looks comfortable. Denies fevers. States pain on the Lt stump. VS: 125/65 P68 R:18 T:97.9 SO2:99% Labs: reviewed. Stable. ANTIMICROBIALS: none OBJECTIVE DATA: GENERAL: Chronically ill-appearing, elderly woman, who is awake, in no distress. HEENT: Head atraumatic, normocephalic. Sclerae anicteric. Buccal mucosa dry. NECK: Supple. CHEST: Rise symmetrical. Breath sounds diminished at the bases. HEART: S1, S2. ABDOMEN: Soft, bowel sounds present. EXTREMITIES: With left above-knee amputation. The right foot dressing intact. ASSESSMENT: 1. Bilateral lower extremities gangrene, status post left above- knee amputation. 2. Severe peripheral arterial disease, failed multiple revascularization procedures. 3. History of kidney transplant, remains on immunosuppressive therapy. 4. Resolved diarrhea, on empiric oral vancomycin. 5. Diabetes. 6. History of yzfwpfnj-vreexxrt-frvs-lactamase urinary tract infection. 7. R foot gangrene with open wound==> cx + E coli ESBL==> treated PLAN: Patient remains stable. Off abx, f/u vascular rec-s Type of Consultation: ID Referring Provider: LES GILLILAND Exam/Review of Systems Vital Signs Vitals Vital Signs Date Time Temp Pulse Resp B/P Pulse Ox O2 Delivery O2 Flow Rate FiO2 02/03/17 14:00 97.9 68 18 125/65 99 Intake and Output 02/02/17 02/02/17 02/03/17 15:00 23:00 07:00 Intake Total 680 ml 250 ml Output Total 700 ml Balance -20 ml 250 ml Results Result Diagram: 02/03/17 0413 02/03/17 0413 Results 24 hrs Laboratory Tests Test 02/02/17 17:01 02/02/17 20:27 02/03/17 04:13 02/03/17 08:17 Bedside Glucose 111 103 107 White Blood Count 4.3 L Red Blood Count 3.49 L Hemoglobin 9.6 L Hematocrit 29.9 L Mean Corpuscular Volume 85.7 Mean Corpuscular Hemoglobin 27.5 L Mean Corpuscular Hemoglobin Concent 32.1 Red Cell Distribution Width 14.9 H Platelet Count 278 Mean Platelet Volume 11.3 H Neutrophils % 60.9 Lymphocytes % 21.4 Monocytes % 14.7 H Eosinophils % 2.3 Basophils % 0.5 Nucleated Red Blood Cells % 0.0 Neutrophils # 2.6 Lymphocytes # 0.9 Monocytes # 0.6 Eosinophils # 0.1 Basophils # 0.0 Nucleated Red Blood Cells # 0.0 Sodium Level 130 L Potassium Level 4.5 Chloride Level 96 L Carbon Dioxide Level 29 Anion Gap 10 Blood Urea Nitrogen 24 H Creatinine 0.68 Glucose Level 91 Calcium Level 9.7 Test 02/03/17 11:06 Bedside Glucose 117 Medications Medications Current Medications Aspirin (Halfprin) 81 mg DAILY PO Last administered on 02/03/17 09:28; Admin Dose 81 MG; Start 12/27/16 at 09:00 Clopidogrel Bisulfate (plaVIX) 75 mg DAILY PO Last administered on 02/03/17 09:28; Admin Dose 75 MG; Start 12/27/16 at 09:00 Famotidine (Pepcid) 40 mg HS PO Last administered on 02/02/17 20:31; Admin Dose 40 MG; Start 12/26/16 at 21:00 Folic Acid (Folic Acid) 1 mg DAILY PO Last administered on 02/03/17 09:28; Admin Dose 1 MG; Start 12/27/16 at 09:00 Gabapentin (Neurontin) 100 mg TID PO Last administered on 02/03/17 12:48; Admin Dose 100 MG; Start 12/26/16 at 21:00 Mycophenolate Mofetil (Cellcept) 1,000 mg BID PO Last administered on 11:02; Admin Dose 1,000 MG; Start 12/26/16 at 21:00 Pantoprazole (Protonix Tab) 40 mg DAILY@06 PO Last administered on 02/03/17 05:37; Admin Dose 40 MG; Start 12/27/16 at 06:00 Diagnostic Test (Pha) (Accu-Chek) 1 ea 02 XX ; Start 12/27/16 at 02:00 Miscellaneous Information 1 ea NOTE XX ; Start 12/26/16 at 14:30 Glucose (Glutose) 15 gm Q15M PRN PO DECREASED GLUCOSE; Start 12/26/16 at 14:30 Glucose (Glutose) 22.5 gm Q15M PRN PO DECREASED GLUCOSE; Start 12/26/16 at 14:30 Dextrose (D50w Syringe) 25 ml Q15M PRN IV DECREASED GLUCOSE; Start 12/26/16 at 14:30 Dextrose (D50w Syringe) 50 ml Q15M PRN IV DECREASED GLUCOSE; Start 12/26/16 at 14:30 Glucagon (Glucagen) 1 mg Q15M PRN IM DECREASED GLUCOSE; Start 12/26/16 at 14:30 Glucose (Glutose) 15 gm Q15M PRN BUCCAL DECREASED GLUCOSE; Start 12/26/16 at 14: 30 Cholecalciferol (Vitamin D) 1,000 unit DAILY PO Last administered on 09:29; Admin Dose 1,000 UNIT; Start 12/28/16 at 09:00 Ondansetron HCl (Zofran Inj) 4 mg Q6H PRN IV NAUSEA AND/OR VOMITING Last administered on 01/15/17 09:50; Admin Dose 4 MG; Start 01/01/17 at 10:00 Haloperidol (Haldol) 2 mg Q4H PRN IM AGITATION/ANXIETY Last administered on 22:46; Admin Dose 2 MG; Start 01/08/17 at 01:30 Acetaminophen (Tylenol Tab) 650 mg Q6H PRN PO PAIN AND OR ELEVATED TEMP Last administered on 01/16/17 10:25; Admin Dose 650 MG; Start 01/08/17 at 22:30 Quetiapine Fumarate (Seroquel) 25 mg QHS PRN PO agitation/hallucinations Last administered on 01/09/17 22:15; Admin Dose 25 MG; Start 01/09/17 at 21:00 Morphine Sulfate (morphine) 2 mg Q8H PRN IV PAIN LEVEL 6-10 Last administered on 01/19/17 16:02; Admin Dose 2 MG; Start 01/11/17 at 14:00 Clonidine (Catapres) 0.1 mg Q6H PRN PO hypertension Last administered on 02:41; Admin Dose 0.1 MG; Start 01/14/17 at 02:30 Hydralazine HCl (Apresoline) 25 mg Q6H PRN IV ELEVATED SYSTOLIC BP Last administered on 01/14/17 07:04; Admin Dose 25 MG; Start 01/14/17 at 07:00 Insulin Glargine (Lantus) 5 unit DAILY@20 SC Last administered on 02/02/17 20 :39; Admin Dose 5 UNIT; Start 01/17/17 at 20:00 Tacrolimus (Prograf) 2 mg Q12 PO Last administered on 02/03/17 09:28; Admin Dose 2 MG; Start 01/18/17 at 09:00 IV Flush (NS 10 ml) 10 ml PRN PRN IV IV PROTOCOL Last administered on 11:54; Admin Dose 10 ML; Start 01/19/17 at 12:30 Acetaminophen/ Hydrocodone Bitart ([place] (5/325)) 1 tab Q8H PRN PO PAIN Last administered on 02/02/17 14:56; Admin Dose 1 TAB; Start 01/19/17 at 14:30 Metoprolol Tartrate (Lopressor) 50 mg BID PO Last administered on 02/03/17 09 :29; Admin Dose 50 MG; Start 01/23/17 at 21:00 Benazepril HCl 10 mg 10 mg BID PO Last administered on 02/03/17 09:28; Admin Dose 10 MG; Start 01/31/17 at 21:00 Sodium Chloride (NS) 1,000 ml @ 80 mls/hr [id number] IV Last administered on 11:02; Admin Dose 80 MLS/HR; Start 02/03/17 at 10:30 MEMO TORRES Feb 03, 2017 16:26
--- NOTE | 2017-02-03 16:57 | CONS ---
Date/Time of Note Date/Time of Note DATE: 02/03/17 TIME: 16:54 Assessment/Plan Assessment/Plan Chief Complaint/Hosp Course IMP: 1.Zwg-ta-vxktkt test 10/2016 with no ischemia/only scar/NL EF. Negative trop x 3. 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 Encephalopathy 7. Hyponatremia-ongoing Recc: -Continue asa/plavix -Continue benazepril/BB at current doses with well controlled BP currently -Local wound care -Continue abx's and f/u cx data -Continue immuonosuppresives -Follow volume status clsoely on IVF hydration Problems: Consultation Date/Type/Reason Admit Date/Time Dec 26, 2016 at 13:22 Initial Consult Date 12/27/16 Type of Consultation: cardiology Reason for Consultation HTN Referring Provider: LES GILLILAND Exam/Review of Systems Vital Signs Vitals Vital Signs Date Time Temp Pulse Resp B/P Pulse Ox O2 Delivery O2 Flow Rate FiO2 02/03/17 14:00 97.9 68 18 125/65 99 Intake and Output 02/02/17 02/02/17 02/03/17 15:00 23:00 07:00 Intake Total 680 ml 250 ml Output Total 700 ml Balance -20 ml 250 ml Exam Review of Systems: CONSTITUTIONAL: No fevers, chills. PULMONARY: No sob CARDIOVASCULAR: No chest pain/palpitations GASTROINTESTINAL: No nausea/vomiting. GENITOURINARY: No hematuria/dysuria. MUSCULOSKELETAL: mild pain in leg PSYCHIATRIC: The patient denies depression. NEUROLOGIC: lethargic Constitutional: alert Psych: no complaints Head: normocephalic ENMT: mucosa pink and moist Neck: jvd (9 cm water), supple Respiratory: clear to auscultation Cardiovascular: regular rate and rhythm Gastrointestinal: non-tender, soft Musculoskeletal: muscle weakness (generalized) Extremities: other (s/p LE amputation) Neurological: other (No focal deficits) Results Result Diagram: 02/03/17 0413 02/03/17 0413 Results 24 hrs Laboratory Tests Test 02/02/17 17:01 02/02/17 20:27 02/03/17 04:13 02/03/17 08:17 Bedside Glucose 111 103 107 White Blood Count 4.3 L Red Blood Count 3.49 L Hemoglobin 9.6 L Hematocrit 29.9 L Mean Corpuscular Volume 85.7 Mean Corpuscular Hemoglobin 27.5 L Mean Corpuscular Hemoglobin Concent 32.1 Red Cell Distribution Width 14.9 H Platelet Count 278 Mean Platelet Volume 11.3 H Neutrophils % 60.9 Lymphocytes % 21.4 Monocytes % 14.7 H Eosinophils % 2.3 Basophils % 0.5 Nucleated Red Blood Cells % 0.0 Neutrophils # 2.6 Lymphocytes # 0.9 Monocytes # 0.6 Eosinophils # 0.1 Basophils # 0.0 Nucleated Red Blood Cells # 0.0 Sodium Level 130 L Potassium Level 4.5 Chloride Level 96 L Carbon Dioxide Level 29 Anion Gap 10 Blood Urea Nitrogen 24 H Creatinine 0.68 Glucose Level 91 Calcium Level 9.7 Test 02/03/17 11:06 Bedside Glucose 117 Medications Medications Current Medications Aspirin (Halfprin) 81 mg DAILY PO Last administered on 02/03/17 09:28; Admin Dose 81 MG; Start 12/27/16 at 09:00 Clopidogrel Bisulfate (plaVIX) 75 mg DAILY PO Last administered on 02/03/17 09:28; Admin Dose 75 MG; Start 12/27/16 at 09:00 Famotidine (Pepcid) 40 mg HS PO Last administered on 02/02/17 20:31; Admin Dose 40 MG; Start 12/26/16 at 21:00 Folic Acid (Folic Acid) 1 mg DAILY PO Last administered on 02/03/17 09:28; Admin Dose 1 MG; Start 12/27/16 at 09:00 Gabapentin (Neurontin) 100 mg TID PO Last administered on 02/03/17 12:48; Admin Dose 100 MG; Start 12/26/16 at 21:00 Mycophenolate Mofetil (Cellcept) 1,000 mg BID PO Last administered on 11:02; Admin Dose 1,000 MG; Start 12/26/16 at 21:00 Pantoprazole (Protonix Tab) 40 mg DAILY@06 PO Last administered on 02/03/17 05:37; Admin Dose 40 MG; Start 12/27/16 at 06:00 Diagnostic Test (Pha) (Accu-Chek) 1 ea 02 XX ; Start 12/27/16 at 02:00 Miscellaneous Information 1 ea NOTE XX ; Start 12/26/16 at 14:30 Glucose (Glutose) 15 gm Q15M PRN PO DECREASED GLUCOSE; Start 12/26/16 at 14:30 Glucose (Glutose) 22.5 gm Q15M PRN PO DECREASED GLUCOSE; Start 12/26/16 at 14:30 Dextrose (D50w Syringe) 25 ml Q15M PRN IV DECREASED GLUCOSE; Start 12/26/16 at 14:30 Dextrose (D50w Syringe) 50 ml Q15M PRN IV DECREASED GLUCOSE; Start 12/26/16 at 14:30 Glucagon (Glucagen) 1 mg Q15M PRN IM DECREASED GLUCOSE; Start 12/26/16 at 14:30 Glucose (Glutose) 15 gm Q15M PRN BUCCAL DECREASED GLUCOSE; Start 12/26/16 at 14: 30 Cholecalciferol (Vitamin D) 1,000 unit DAILY PO Last administered on 09:29; Admin Dose 1,000 UNIT; Start 12/28/16 at 09:00 Ondansetron HCl (Zofran Inj) 4 mg Q6H PRN IV NAUSEA AND/OR VOMITING Last administered on 01/15/17 09:50; Admin Dose 4 MG; Start 01/01/17 at 10:00 Haloperidol (Haldol) 2 mg Q4H PRN IM AGITATION/ANXIETY Last administered on 22:46; Admin Dose 2 MG; Start 01/08/17 at 01:30 Acetaminophen (Tylenol Tab) 650 mg Q6H PRN PO PAIN AND OR ELEVATED TEMP Last administered on 01/16/17 10:25; Admin Dose 650 MG; Start 01/08/17 at 22:30 Quetiapine Fumarate (Seroquel) 25 mg QHS PRN PO agitation/hallucinations Last administered on 01/09/17 22:15; Admin Dose 25 MG; Start 01/09/17 at 21:00 Morphine Sulfate (morphine) 2 mg Q8H PRN IV PAIN LEVEL 6-10 Last administered on 01/19/17 16:02; Admin Dose 2 MG; Start 01/11/17 at 14:00 Clonidine (Catapres) 0.1 mg Q6H PRN PO hypertension Last administered on 02:41; Admin Dose 0.1 MG; Start 01/14/17 at 02:30 Hydralazine HCl (Apresoline) 25 mg Q6H PRN IV ELEVATED SYSTOLIC BP Last administered on 01/14/17 07:04; Admin Dose 25 MG; Start 01/14/17 at 07:00 Insulin Glargine (Lantus) 5 unit DAILY@20 SC Last administered on 02/02/17 20 :39; Admin Dose 5 UNIT; Start 01/17/17 at 20:00 Tacrolimus (Prograf) 2 mg Q12 PO Last administered on 02/03/17 09:28; Admin Dose 2 MG; Start 01/18/17 at 09:00 IV Flush (NS 10 ml) 10 ml PRN PRN IV IV PROTOCOL Last administered on 11:54; Admin Dose 10 ML; Start 01/19/17 at 12:30 Acetaminophen/ Hydrocodone Bitart ([place] (5/325)) 1 tab Q8H PRN PO PAIN Last administered on 02/02/17 14:56; Admin Dose 1 TAB; Start 01/19/17 at 14:30 Metoprolol Tartrate (Lopressor) 50 mg BID PO Last administered on 02/03/17 09 :29; Admin Dose 50 MG; Start 01/23/17 at 21:00 Benazepril HCl 10 mg 10 mg BID PO Last administered on 02/03/17 09:28; Admin Dose 10 MG; Start 01/31/17 at 21:00 Sodium Chloride (NS) 1,000 ml @ 80 mls/hr [id number] IV Last administered on 11:02; Admin Dose 80 MLS/HR; Start 02/03/17 at 10:30 TIMOTHY CORTES Feb 03, 2017 16:57
[2017-02-03] MEDS: FAMOTIDINE 20 MG TAB PO SCH (20:27)
[2017-02-03] MEDS: INSULIN GLARGINE [LANtus] 3 ML PEN SC SCH (20:29)
[2017-02-03] MEDS: HYDROCODONE/APAP (5/325) TAB PO PRN (20:34)
[2017-02-03 20:37] VITALS: BP 130/64; RESP 18
[2017-02-04] MEDS: ACCU-CHEK XX SCH (02:00)
[2017-02-04 02:19] VITALS: BP 107/59; RESP 18
[2017-02-04] MEDS: PANTOPRAZOLE (EC) 40 MG TAB PO SCH (05:14)
[2017-02-04 07:45] VITALS: BP 135/63; RESP 16
[2017-02-04] MEDS: INSULIN ASPART [NOVOLOG] 3 ML PEN SC SCH ×4 (08:00→20:53)
[2017-02-04] MEDS: TACROLIMUS 1 MG CAP PO SCH ×2 (08:19→20:46)
[2017-02-04] MEDS: GABAPENTIN 100 MG CAP PO SCH ×3 (08:20→20:46)
[2017-02-04] MEDS: CLOPIDOGREL 75 MG TAB PO SCH (08:20)
[2017-02-04] MEDS: MYCOPHENOLATE 250 MG CAP PO SCH ×2 (08:20→20:46)
[2017-02-04] MEDS: ASPIRIN (EC) 81 MG TAB PO SCH (08:20)
[2017-02-04] MEDS: FOLIC ACID 1 MG TAB PO SCH (08:20)
[2017-02-04] MEDS: CHOLECALCIFEROL 1,000 UNIT TAB PO SCH (08:20)
[2017-02-04] MEDS: BENAZEPRIL 10 MG TAB PO SCH ×2 (08:20→20:49)
[2017-02-04] MEDS: METOPROLOL 50 MG TAB PO SCH ×2 (08:21→20:52)
--- NOTE | 2017-02-04 09:18 | CONS ---
Date/Time of Note Date/Time of Note DATE: 02/04/17 TIME: 09:16 Assessment/Plan Assessment/Plan Additional Assessment/Plan 1. 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 h/o donor kidney transplant in 2009 at [facility], currently on immunosuppression with Prograf, CellCept 4. 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 History of hypertension. 6. History of diabetes mellitus. 7. History of previous left upper extremity arteriovenous fistula. 8. Hyponatremia due to hypovolemic hyponatremia post op 9. -CT chest+ abd+pelvis with and without contrast negative for mass/LAD/ Malignancy Plan: continue Current immunosuppression Prograf and cellcept, Cr 0.68, Na dropped to 130 from 138 yesteday, getting IVF NS, no labs today to review yet s/p Left AKA, off IV abx now, continue lotensin for now ID following will continue to follow up on patient Consultation Date/Type/Reason Admit Date/Time Dec 26, 2016 at 13:22 Initial Consult Date 12/27/16 Type of Consultation: NEPHROLOGY Referring Provider: LES GILLILAND 24 HR Interval Summary Free Text/Dictation Na 130 yesterday, getting IVF NS, no labs today to review yet Exam/Review of Systems Vital Signs Vitals Vital Signs Date Time Temp Pulse Resp B/P Pulse Ox O2 Delivery O2 Flow Rate FiO2 02/04/17 07:45 97.9 16 135/63 100 02/04/17 02:19 61 Intake and Output 02/03/17 02/03/17 02/04/17 15:00 23:00 07:00 Intake Total 1560 ml 1440 ml Output Total 600 ml Balance 960 ml 1440 ml Exam GEN: fragile elderly woman who is awake in no distress. HEENT: Head atraumatic, normocephalic. Sclerae anicteric. NECK: Supple. CHEST: Rise symmetrical. Breath sounds clear. HEART: S1, S2. ABDOMEN: Soft, bowel sounds present. left BKA dressing clean Results Result Diagram: 02/03/17 0413 02/03/17 0413 Results 24 hrs Laboratory Tests Test 02/03/17 11:06 02/03/17 17:16 02/03/17 20:24 02/04/17 08:18 Bedside Glucose 117 103 104 85 Medications Medications Current Medications Aspirin (Halfprin) 81 mg DAILY PO Last administered on 02/04/17 08:20; Admin Dose 81 MG; Start 12/27/16 at 09:00 Clopidogrel Bisulfate (plaVIX) 75 mg DAILY PO Last administered on 02/04/17 08:20; Admin Dose 75 MG; Start 12/27/16 at 09:00 Famotidine (Pepcid) 40 mg HS PO Last administered on 02/03/17 20:27; Admin Dose 40 MG; Start 12/26/16 at 21:00 Folic Acid (Folic Acid) 1 mg DAILY PO Last administered on 02/04/17 08:20; Admin Dose 1 MG; Start 12/27/16 at 09:00 Gabapentin (Neurontin) 100 mg TID PO Last administered on 02/04/17 08:20; Admin Dose 100 MG; Start 12/26/16 at 21:00 Mycophenolate Mofetil (Cellcept) 1,000 mg BID PO Last administered on 08:20; Admin Dose 1,000 MG; Start 12/26/16 at 21:00 Pantoprazole (Protonix Tab) 40 mg DAILY@06 PO Last administered on 02/04/17 05:14; Admin Dose 40 MG; Start 12/27/16 at 06:00 Diagnostic Test (Pha) (Accu-Chek) 1 ea 02 XX ; Start 12/27/16 at 02:00 Miscellaneous Information 1 ea NOTE XX ; Start 12/26/16 at 14:30 Glucose (Glutose) 15 gm Q15M PRN PO DECREASED GLUCOSE; Start 12/26/16 at 14:30 Glucose (Glutose) 22.5 gm Q15M PRN PO DECREASED GLUCOSE; Start 12/26/16 at 14:30 Dextrose (D50w Syringe) 25 ml Q15M PRN IV DECREASED GLUCOSE; Start 12/26/16 at 14:30 Dextrose (D50w Syringe) 50 ml Q15M PRN IV DECREASED GLUCOSE; Start 12/26/16 at 14:30 Glucagon (Glucagen) 1 mg Q15M PRN IM DECREASED GLUCOSE; Start 12/26/16 at 14:30 Glucose (Glutose) 15 gm Q15M PRN BUCCAL DECREASED GLUCOSE; Start 12/26/16 at 14: 30 Cholecalciferol (Vitamin D) 1,000 unit DAILY PO Last administered on 08:20; Admin Dose 1,000 UNIT; Start 12/28/16 at 09:00 Ondansetron HCl (Zofran Inj) 4 mg Q6H PRN IV NAUSEA AND/OR VOMITING Last administered on 01/15/17 09:50; Admin Dose 4 MG; Start 01/01/17 at 10:00 Haloperidol (Haldol) 2 mg Q4H PRN IM AGITATION/ANXIETY Last administered on 22:46; Admin Dose 2 MG; Start 01/08/17 at 01:30 Acetaminophen (Tylenol Tab) 650 mg Q6H PRN PO PAIN AND OR ELEVATED TEMP Last administered on 01/16/17 10:25; Admin Dose 650 MG; Start 01/08/17 at 22:30 Quetiapine Fumarate (Seroquel) 25 mg QHS PRN PO agitation/hallucinations Last administered on 01/09/17 22:15; Admin Dose 25 MG; Start 01/09/17 at 21:00 Morphine Sulfate (morphine) 2 mg Q8H PRN IV PAIN LEVEL 6-10 Last administered on 01/19/17 16:02; Admin Dose 2 MG; Start 01/11/17 at 14:00 Clonidine (Catapres) 0.1 mg Q6H PRN PO hypertension Last administered on 02:41; Admin Dose 0.1 MG; Start 01/14/17 at 02:30 Hydralazine HCl (Apresoline) 25 mg Q6H PRN IV ELEVATED SYSTOLIC BP Last administered on 01/14/17 07:04; Admin Dose 25 MG; Start 01/14/17 at 07:00 Insulin Glargine (Lantus) 5 unit DAILY@20 SC Last administered on 02/03/17 20 :29; Admin Dose 5 UNIT; Start 01/17/17 at 20:00 Tacrolimus (Prograf) 2 mg Q12 PO Last administered on 02/04/17 08:19; Admin Dose 2 MG; Start 01/18/17 at 09:00 IV Flush (NS 10 ml) 10 ml PRN PRN IV IV PROTOCOL Last administered on 11:54; Admin Dose 10 ML; Start 01/19/17 at 12:30 Acetaminophen/ Hydrocodone Bitart ([place] (5/325)) 1 tab Q8H PRN PO PAIN Last administered on 02/03/17 20:34; Admin Dose 1 TAB; Start 01/19/17 at 14:30 Metoprolol Tartrate (Lopressor) 50 mg BID PO Last administered on 02/04/17 08 :21; Admin Dose 50 MG; Start 01/23/17 at 21:00 Benazepril HCl 10 mg 10 mg BID PO Last administered on 02/04/17 08:20; Admin Dose 10 MG; Start 01/31/17 at 21:00 Sodium Chloride (NS) 1,000 ml @ 80 mls/hr [id number] IV Last administered on 23:39; Admin Dose 80 MLS/HR; Start 02/03/17 at 10:30 RAMON KEMP MD Feb 04, 2017 09:18
--- NOTE | 2017-02-04 09:42 | CONS ---
Date/Time of Note Date/Time of Note DATE: 02/04/17 TIME: 09:41 Assessment/Plan Assessment/Plan Additional Assessment/Plan 1.Baj-jv-nonltq test 10/2016 with no ischemia/only scar/NL EF. Negative trop x 3. No CP/sob - SEQUINS SPOOLER CP now, no cardiac intervention planned - stable overall. NO CP now. 2.HTN-now toleratig anti-hypertensives as lower doses - stable overall- will monitpr clinically. 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 STABLE - WOUND CARE. 4.DM - on meds, keep euglycemic 5.Anemia - H/H stale, no bleed 6. Encephalopathy - much improved Consultation Date/Type/Reason Admit Date/Time Dec 26, 2016 at 13:22 Initial Consult Date 12/27/16 Type of Consultation: NEPHROLOGY Referring Provider: LES GILLILAND 24 HR Interval Summary Free Text/Dictation NO acute events - con't wound care. Pain controlled. ROS: No fever, no chills, no nausea, no vomiting, no diarrhea/constipation No recent weight changes No chest pain, no PND, no orthopnea No dizziness, blurred vision No thirst, no heat or cold intolerance Exam/Review of Systems Vital Signs Vitals Vital Signs Date Time Temp Pulse Resp B/P Pulse Ox O2 Delivery O2 Flow Rate FiO2 02/04/17 07:45 97.9 16 135/63 100 02/04/17 02:19 61 Intake and Output 02/03/17 02/03/17 02/04/17 15:00 23:00 07:00 Intake Total 1560 ml 1440 ml Output Total 600 ml Balance 960 ml 1440 ml Exam General: WN/WD/NAD, AOx 3 HEENT: Unicetric/atraumatic/EOMI (follow commands) NECK: JVD elevated, no thyromegaly Lymph: no lymphadenopathy HEART: regular with no S3, II/ systolic murmur at apex LUNGS: Coarse sounds ABD: soft, NT, ND, +BS : Intact Neuro: non focal SKIN: chronic changes EXT: post amputation Results Result Diagram: 02/03/17 0413 02/03/17 0413 Results 24 hrs Laboratory Tests Test 02/03/17 11:06 02/03/17 17:16 02/03/17 20:24 02/04/17 08:18 Bedside Glucose 117 103 104 85 Medications Medications Current Medications Aspirin (Halfprin) 81 mg DAILY PO Last administered on 02/04/17 08:20; Admin Dose 81 MG; Start 12/27/16 at 09:00 Clopidogrel Bisulfate (plaVIX) 75 mg DAILY PO Last administered on 02/04/17 08:20; Admin Dose 75 MG; Start 12/27/16 at 09:00 Famotidine (Pepcid) 40 mg HS PO Last administered on 02/03/17 20:27; Admin Dose 40 MG; Start 12/26/16 at 21:00 Folic Acid (Folic Acid) 1 mg DAILY PO Last administered on 02/04/17 08:20; Admin Dose 1 MG; Start 12/27/16 at 09:00 Gabapentin (Neurontin) 100 mg TID PO Last administered on 02/04/17 08:20; Admin Dose 100 MG; Start 12/26/16 at 21:00 Mycophenolate Mofetil (Cellcept) 1,000 mg BID PO Last administered on 08:20; Admin Dose 1,000 MG; Start 12/26/16 at 21:00 Pantoprazole (Protonix Tab) 40 mg DAILY@06 PO Last administered on 02/04/17 05:14; Admin Dose 40 MG; Start 12/27/16 at 06:00 Diagnostic Test (Pha) (Accu-Chek) 1 ea 02 XX ; Start 12/27/16 at 02:00 Miscellaneous Information 1 ea NOTE XX ; Start 12/26/16 at 14:30 Glucose (Glutose) 15 gm Q15M PRN PO DECREASED GLUCOSE; Start 12/26/16 at 14:30 Glucose (Glutose) 22.5 gm Q15M PRN PO DECREASED GLUCOSE; Start 12/26/16 at 14:30 Dextrose (D50w Syringe) 25 ml Q15M PRN IV DECREASED GLUCOSE; Start 12/26/16 at 14:30 Dextrose (D50w Syringe) 50 ml Q15M PRN IV DECREASED GLUCOSE; Start 12/26/16 at 14:30 Glucagon (Glucagen) 1 mg Q15M PRN IM DECREASED GLUCOSE; Start 12/26/16 at 14:30 Glucose (Glutose) 15 gm Q15M PRN BUCCAL DECREASED GLUCOSE; Start 12/26/16 at 14: 30 Cholecalciferol (Vitamin D) 1,000 unit DAILY PO Last administered on 08:20; Admin Dose 1,000 UNIT; Start 12/28/16 at 09:00 Ondansetron HCl (Zofran Inj) 4 mg Q6H PRN IV NAUSEA AND/OR VOMITING Last administered on 01/15/17 09:50; Admin Dose 4 MG; Start 01/01/17 at 10:00 Haloperidol (Haldol) 2 mg Q4H PRN IM AGITATION/ANXIETY Last administered on 22:46; Admin Dose 2 MG; Start 01/08/17 at 01:30 Acetaminophen (Tylenol Tab) 650 mg Q6H PRN PO PAIN AND OR ELEVATED TEMP Last administered on 01/16/17 10:25; Admin Dose 650 MG; Start 01/08/17 at 22:30 Quetiapine Fumarate (Seroquel) 25 mg QHS PRN PO agitation/hallucinations Last administered on 01/09/17 22:15; Admin Dose 25 MG; Start 01/09/17 at 21:00 Morphine Sulfate (morphine) 2 mg Q8H PRN IV PAIN LEVEL 6-10 Last administered on 01/19/17 16:02; Admin Dose 2 MG; Start 01/11/17 at 14:00 Clonidine (Catapres) 0.1 mg Q6H PRN PO hypertension Last administered on 02:41; Admin Dose 0.1 MG; Start 01/14/17 at 02:30 Hydralazine HCl (Apresoline) 25 mg Q6H PRN IV ELEVATED SYSTOLIC BP Last administered on 01/14/17 07:04; Admin Dose 25 MG; Start 01/14/17 at 07:00 Insulin Glargine (Lantus) 5 unit DAILY@20 SC Last administered on 02/03/17 20 :29; Admin Dose 5 UNIT; Start 01/17/17 at 20:00 Tacrolimus (Prograf) 2 mg Q12 PO Last administered on 02/04/17 08:19; Admin Dose 2 MG; Start 01/18/17 at 09:00 IV Flush (NS 10 ml) 10 ml PRN PRN IV IV PROTOCOL Last administered on 11:54; Admin Dose 10 ML; Start 01/19/17 at 12:30 Acetaminophen/ Hydrocodone Bitart ([place] (5/325)) 1 tab Q8H PRN PO PAIN Last administered on 02/03/17 20:34; Admin Dose 1 TAB; Start 01/19/17 at 14:30 Metoprolol Tartrate (Lopressor) 50 mg BID PO Last administered on 02/04/17 08 :21; Admin Dose 50 MG; Start 01/23/17 at 21:00 Benazepril HCl 10 mg 10 mg BID PO Last administered on 02/04/17 08:20; Admin Dose 10 MG; Start 01/31/17 at 21:00 Sodium Chloride (NS) 1,000 ml @ 80 mls/hr [id number] IV Last administered on 23:39; Admin Dose 80 MLS/HR; Start 02/03/17 at 10:30 MIRELLA MOSER MD Feb 04, 2017 09:42
[2017-02-04] MEDS: HYDROCODONE/APAP (5/325) TAB PO PRN ×2 (10:31→20:58)
[2017-02-04] MEDS: SOD CHLORIDE 0.9% 1,000 ML IV SCH (12:01)
[2017-02-04 14:02] VITALS: BP 130/68; RESP 18
--- NOTE | 2017-02-04 14:19 | CONS ---
Date/Time of Note Date/Time of Note DATE: 02/04/17 TIME: 14:19 Consult Date/Type/Reason Admit Date/Time Dec 26, 2016 at 13:22 Initial Consult Date 12/27/16 Type of Consultation: id Ordering Provider: LES GILLILAND Objective Vital Signs Date Time Temp Pulse Resp B/P Pulse Ox O2 Delivery O2 Flow Rate FiO2 02/04/17 14:02 97.7 70 18 130/68 99 Intake and Output 02/03/17 02/03/17 02/04/17 15:00 23:00 07:00 Intake Total 1560 ml 1440 ml Output Total 600 ml Balance 960 ml 1440 ml Results/Medications Result Diagram: 02/03/17 0413 02/03/17 041 Results 24 hrs Laboratory Tests Test 02/03/17 17:16 02/03/17 20:24 02/04/17 08:18 02/04/17 11:58 Bedside Glucose 103 104 85 178 Medications Current Medications Aspirin (Halfprin) 81 mg DAILY PO Last administered on 02/04/17 08:20; Admin Dose 81 MG; Start 12/27/16 at 09:00 Clopidogrel Bisulfate (plaVIX) 75 mg DAILY PO Last administered on 02/04/17 08:20; Admin Dose 75 MG; Start 12/27/16 at 09:00 Famotidine (Pepcid) 40 mg HS PO Last administered on 02/03/17 20:27; Admin Dose 40 MG; Start 12/26/16 at 21:00 Folic Acid (Folic Acid) 1 mg DAILY PO Last administered on 02/04/17 08:20; Admin Dose 1 MG; Start 12/27/16 at 09:00 Gabapentin (Neurontin) 100 mg TID PO Last administered on 02/04/17 12:03; Admin Dose 100 MG; Start 12/26/16 at 21:00 Mycophenolate Mofetil (Cellcept) 1,000 mg BID PO Last administered on 08:20; Admin Dose 1,000 MG; Start 12/26/16 at 21:00 Pantoprazole (Protonix Tab) 40 mg DAILY@06 PO Last administered on 02/04/17 05:14; Admin Dose 40 MG; Start 12/27/16 at 06:00 Diagnostic Test (Pha) (Accu-Chek) 1 ea 02 XX ; Start 12/27/16 at 02:00 Miscellaneous Information 1 ea NOTE XX ; Start 12/26/16 at 14:30 Glucose (Glutose) 15 gm Q15M PRN PO DECREASED GLUCOSE; Start 12/26/16 at 14:30 Glucose (Glutose) 22.5 gm Q15M PRN PO DECREASED GLUCOSE; Start 12/26/16 at 14:30 Dextrose (D50w Syringe) 25 ml Q15M PRN IV DECREASED GLUCOSE; Start 12/26/16 at 14:30 Dextrose (D50w Syringe) 50 ml Q15M PRN IV DECREASED GLUCOSE; Start 12/26/16 at 14:30 Glucagon (Glucagen) 1 mg Q15M PRN IM DECREASED GLUCOSE; Start 12/26/16 at 14:30 Glucose (Glutose) 15 gm Q15M PRN BUCCAL DECREASED GLUCOSE; Start 12/26/16 at 14: 30 Cholecalciferol (Vitamin D) 1,000 unit DAILY PO Last administered on 08:20; Admin Dose 1,000 UNIT; Start 12/28/16 at 09:00 Ondansetron HCl (Zofran Inj) 4 mg Q6H PRN IV NAUSEA AND/OR VOMITING Last administered on 01/15/17 09:50; Admin Dose 4 MG; Start 01/01/17 at 10:00 Haloperidol (Haldol) 2 mg Q4H PRN IM AGITATION/ANXIETY Last administered on 22:46; Admin Dose 2 MG; Start 01/08/17 at 01:30 Acetaminophen (Tylenol Tab) 650 mg Q6H PRN PO PAIN AND OR ELEVATED TEMP Last administered on 01/16/17 10:25; Admin Dose 650 MG; Start 01/08/17 at 22:30 Quetiapine Fumarate (Seroquel) 25 mg QHS PRN PO agitation/hallucinations Last administered on 01/09/17 22:15; Admin Dose 25 MG; Start 01/09/17 at 21:00 Morphine Sulfate (morphine) 2 mg Q8H PRN IV PAIN LEVEL 6-10 Last administered on 01/19/17 16:02; Admin Dose 2 MG; Start 01/11/17 at 14:00 Clonidine (Catapres) 0.1 mg Q6H PRN PO hypertension Last administered on 02:41; Admin Dose 0.1 MG; Start 01/14/17 at 02:30 Hydralazine HCl (Apresoline) 25 mg Q6H PRN IV ELEVATED SYSTOLIC BP Last administered on 01/14/17 07:04; Admin Dose 25 MG; Start 01/14/17 at 07:00 Insulin Glargine (Lantus) 5 unit DAILY@20 SC Last administered on 02/03/17 20 :29; Admin Dose 5 UNIT; Start 01/17/17 at 20:00 Tacrolimus (Prograf) 2 mg Q12 PO Last administered on 02/04/17 08:19; Admin Dose 2 MG; Start 01/18/17 at 09:00 IV Flush (NS 10 ml) 10 ml PRN PRN IV IV PROTOCOL Last administered on 11:54; Admin Dose 10 ML; Start 01/19/17 at 12:30 Acetaminophen/ Hydrocodone Bitart ([place] (5/325)) 1 tab Q8H PRN PO PAIN Last administered on 02/04/17 10:31; Admin Dose 1 TAB; Start 01/19/17 at 14:30 Metoprolol Tartrate (Lopressor) 50 mg BID PO Last administered on 02/04/17 08 :21; Admin Dose 50 MG; Start 01/23/17 at 21:00 Benazepril HCl 10 mg 10 mg BID PO Last administered on 02/04/17 08:20; Admin Dose 10 MG; Start 01/31/17 at 21:00 Sodium Chloride (NS) 1,000 ml @ 80 mls/hr [id number] IV Last administered on 12:01; Admin Dose 80 MLS/HR; Start 02/03/17 at 10:30 Assessment/Plan Chief Complaint/Hosp Course SUBJECTIVE DATA: No acute events. Patient is alert, looks comfortable. No fevers. ANTIMICROBIALS: none OBJECTIVE DATA: GENERAL: Chronically ill-appearing, elderly woman, who is awake, in no distress. HEENT: Head atraumatic, normocephalic. Sclerae anicteric. Buccal mucosa dry. NECK: Supple. CHEST: Rise symmetrical. Breath sounds diminished at the bases. HEART: S1, S2. ABDOMEN: Soft, bowel sounds present. EXTREMITIES: With left above-knee amputation. The right foot dressing intact. ASSESSMENT: 1. Bilateral lower extremities gangrene, status post left above- knee amputation. 2. Severe peripheral arterial disease, failed multiple revascularization procedures. 3. History of kidney transplant, remains on immunosuppressive therapy. 4. Resolved diarrhea, on empiric oral vancomycin. 5. Diabetes. 6. History of ikhoerpb-pvqxawiz-neil-lactamase urinary tract infection. 7. R foot gangrene with open wound==> cx + E coli ESBL==> treated PLAN: Patient remains stable. Off abx, f/u vascular rec-s [facility] staff Problems: JACQUES HUERTA NP Feb 04, 2017 14:19
--- NOTE | 2017-02-04 18:19 | PN ---
Date/Time of Note Date/Time of Note DATE: 02/04/17 TIME: 18:17 Assessment/Plan VTE Prophylaxis VTE Prophylaxis Intervention: SCD's Lines/Catheters IV Catheter Type (from Nrsg): PICC Line Central line still needed: Yes Urinary Cath still in place: No Assessment/Plan Chief Complaint/Hosp Course Patient remains hemodynamically stable, blood sugars well controlled, continue pain management, continue physical therapy, pending acute rehabilitation placement. Assessment/Plan - Acute encephalopathy, resolved. CT brain is negative for any acute pathology. 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 S/p left AKA 01/[address] Valencia, vascular surgery. - Diabetes mellitus type II. Continue Lantus and NovoLog. - History of kidney transplant in 2009, on immunosuppressive therapy. - Hypertension. Continue metoprolol, benazepril. 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 - Anemia of chronic kidney disease. Further recommendations based on clinical course. Plan of care discussed with Dr. Cohen Problems: Exam/Review of Systems Vital Signs Vitals Vital Signs Date Time Temp Pulse Resp B/P Pulse Ox O2 Delivery O2 Flow Rate FiO2 02/04/17 14:02 97.7 70 18 130/68 99 Intake and Output 02/03/17 02/03/17 02/04/17 14:59 22:59 06:59 Intake Total 1560 ml 1440 ml Output Total 600 ml Balance 960 ml 1440 ml Exam Constitutional: awake, alert Neck: supple Respiratory: clear to auscultation Cardiovascular: nl pulses Gastrointestinal: non-tender, soft Extremities: other (S/p LAKA, eschar) Results Result Diagram: 02/03/17 0413 02/03/17 0413 Results 24 hrs Laboratory Tests Test 02/03/17 20:24 02/04/17 08:18 02/04/17 11:58 02/04/17 17:24 Bedside Glucose 104 85 178 104 Medications Medications Current Medications Aspirin (Halfprin) 81 mg DAILY PO Last administered on 02/04/17 08:20; Admin Dose 81 MG; Start 12/27/16 at 09:00 Clopidogrel Bisulfate (plaVIX) 75 mg DAILY PO Last administered on 02/04/17 08:20; Admin Dose 75 MG; Start 12/27/16 at 09:00 Famotidine (Pepcid) 40 mg HS PO Last administered on 02/03/17 20:27; Admin Dose 40 MG; Start 12/26/16 at 21:00 Folic Acid (Folic Acid) 1 mg DAILY PO Last administered on 02/04/17 08:20; Admin Dose 1 MG; Start 12/27/16 at 09:00 Gabapentin (Neurontin) 100 mg TID PO Last administered on 02/04/17 12:03; Admin Dose 100 MG; Start 12/26/16 at 21:00 Mycophenolate Mofetil (Cellcept) 1,000 mg BID PO Last administered on 08:20; Admin Dose 1,000 MG; Start 12/26/16 at 21:00 Pantoprazole (Protonix Tab) 40 mg DAILY@06 PO Last administered on 02/04/17 05:14; Admin Dose 40 MG; Start 12/27/16 at 06:00 Diagnostic Test (Pha) (Accu-Chek) 1 ea 02 XX ; Start 12/27/16 at 02:00 Miscellaneous Information 1 ea NOTE XX ; Start 12/26/16 at 14:30 Glucose (Glutose) 15 gm Q15M PRN PO DECREASED GLUCOSE; Start 12/26/16 at 14:30 Glucose (Glutose) 22.5 gm Q15M PRN PO DECREASED GLUCOSE; Start 12/26/16 at 14:30 Dextrose (D50w Syringe) 25 ml Q15M PRN IV DECREASED GLUCOSE; Start 12/26/16 at 14:30 Dextrose (D50w Syringe) 50 ml Q15M PRN IV DECREASED GLUCOSE; Start 12/26/16 at 14:30 Glucagon (Glucagen) 1 mg Q15M PRN IM DECREASED GLUCOSE; Start 12/26/16 at 14:30 Glucose (Glutose) 15 gm Q15M PRN BUCCAL DECREASED GLUCOSE; Start 12/26/16 at 14: 30 Cholecalciferol (Vitamin D) 1,000 unit DAILY PO Last administered on 08:20; Admin Dose 1,000 UNIT; Start 12/28/16 at 09:00 Ondansetron HCl (Zofran Inj) 4 mg Q6H PRN IV NAUSEA AND/OR VOMITING Last administered on 01/15/17 09:50; Admin Dose 4 MG; Start 01/01/17 at 10:00 Haloperidol (Haldol) 2 mg Q4H PRN IM AGITATION/ANXIETY Last administered on 22:46; Admin Dose 2 MG; Start 01/08/17 at 01:30 Acetaminophen (Tylenol Tab) 650 mg Q6H PRN PO PAIN AND OR ELEVATED TEMP Last administered on 01/16/17 10:25; Admin Dose 650 MG; Start 01/08/17 at 22:30 Quetiapine Fumarate (Seroquel) 25 mg QHS PRN PO agitation/hallucinations Last administered on 01/09/17 22:15; Admin Dose 25 MG; Start 01/09/17 at 21:00 Morphine Sulfate (morphine) 2 mg Q8H PRN IV PAIN LEVEL 6-10 Last administered on 01/19/17 16:02; Admin Dose 2 MG; Start 01/11/17 at 14:00 Clonidine (Catapres) 0.1 mg Q6H PRN PO hypertension Last administered on 02:41; Admin Dose 0.1 MG; Start 01/14/17 at 02:30 Hydralazine HCl (Apresoline) 25 mg Q6H PRN IV ELEVATED SYSTOLIC BP Last administered on 01/14/17 07:04; Admin Dose 25 MG; Start 01/14/17 at 07:00 Insulin Glargine (Lantus) 5 unit DAILY@20 SC Last administered on 02/03/17 20 :29; Admin Dose 5 UNIT; Start 01/17/17 at 20:00 Tacrolimus (Prograf) 2 mg Q12 PO Last administered on 02/04/17 08:19; Admin Dose 2 MG; Start 01/18/17 at 09:00 IV Flush (NS 10 ml) 10 ml PRN PRN IV IV PROTOCOL Last administered on 11:54; Admin Dose 10 ML; Start 01/19/17 at 12:30 Acetaminophen/ Hydrocodone Bitart ([place] (5/325)) 1 tab Q8H PRN PO PAIN Last administered on 02/04/17 10:31; Admin Dose 1 TAB; Start 01/19/17 at 14:30 Metoprolol Tartrate (Lopressor) 50 mg BID PO Last administered on 02/04/17 08 :21; Admin Dose 50 MG; Start 01/23/17 at 21:00 Benazepril HCl 10 mg 10 mg BID PO Last administered on 02/04/17 08:20; Admin Dose 10 MG; Start 01/31/17 at 21:00 Sodium Chloride (NS) 1,000 ml @ 80 mls/hr [id number] IV Last administered on 12:01; Admin Dose 80 MLS/HR; Start 02/03/17 at 10:30 LES GILLILAND Feb 04, 2017 18:18
--- NOTE | 2017-02-04 20:14 | PN ---
Date/Time of Note Date/Time of Note DATE: 02/04/17 TIME: 20:11 Assessment/Plan Lines/Catheters IV Catheter Type (from Nrsg): PICC Line Moreira in Place (from Nrsg): No Assessment/Plan Chief Complaint/Hosp Course -Bilateral lower extremity atherosclerosis with bilateral foot gangrene: S/P Left AKA -Her medial aspect of the AKA has developed superficial eschar that may be related to damian wrap dressing, recommend applying just gauze with Betadine paint daily -PT/OT as tolerated -Unfortunately she may encounter the same issue with her RLE. However, at the moment no significant rest pain reported and stable -Optimize vascular status (BP medications, diet, nutrition and exercise, sugar control, antiplatelets). -Podiatry colleagues are involved with the local wound care -Discussed findings, plan and management with the patient with a certified solar energy consultant and designer and she understands. -Thank you for allowing us to partake in the care of your patient. Please call with any questions. Problems: Subjective 24 Hr Interval Summary no new events overnight Exam/Review of Systems Vital Signs Vitals Vital Signs Date Time Temp Pulse Resp B/P Pulse Ox O2 Delivery O2 Flow Rate FiO2 02/04/17 14:02 97.7 70 18 130/68 99 Intake and Output 02/03/17 02/03/17 02/04/17 15:00 23:00 07:00 Intake Total 1560 ml 1440 ml Output Total 600 ml Balance 960 ml 1440 ml Exam Free Text/Dictation Alert and oriented x3 LUNGS: Clear to auscultation bilaterally. CARDIOVASCULAR: S1 and S2 present ABDOMEN: Soft, nontender and nondistended. Bowel sounds positive. Surgical scar well healed. EXTREMITIES: -Right lower extremity faint femoral pulse. Nonpalpable pedal pulse. Motor and sensory intact. Capillary refill 4 seconds. 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 -Left lower extremity faint femoral pulse. AKA-stump intact with art dry. Medial aspect with superficial eschar Results Result Diagram: 02/03/17 0413 02/03/17 0413 WILD DUARTE MD Feb 04, 2017 20:14
[2017-02-04] MEDS: INSULIN GLARGINE [LANtus] 3 ML PEN SC SCH (20:43)
[2017-02-04] MEDS: FAMOTIDINE 20 MG TAB PO SCH (20:46)
[2017-02-04 20:53] VITALS: BP 119/58; RESP 18
--- NOTE | 2017-02-04 23:58 | PN ---
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 Subjective 24 Hr Interval Summary Patient was seen at bedside. Patient is in no acute distress. Denies overnight adverse events. Denies fever, chills, nausea or vomiting. Reports bandages are being changed daily. Denies recent trauma. Exam/Review of Systems Vital Signs Vitals Vital Signs Date Time Temp Pulse Resp B/P Pulse Ox O2 Delivery O2 Flow Rate FiO2 02/13/17 20:16 97.8 71 18 111/62 100 Exam Free Text/Dictation Lower extremity exam: Right lower extremity nonpalpable pedal pulse. Motor and sensory intact. Capillary refill 4 seconds. 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 Left lower extremity s/p TROYA. PHILLIP EMANUEL DPM Feb 04, 2017 23:58
[2017-02-05] MEDS: SOD CHLORIDE 0.9% 1,000 ML IV SCH ×2 (00:57→14:45)
[2017-02-05] MEDS: ACCU-CHEK XX SCH (02:00)
[2017-02-05 02:43] VITALS: BP 108/56; RESP 18
[2017-02-05] MEDS: PANTOPRAZOLE (EC) 40 MG TAB PO SCH (05:17)
[2017-02-05 07:46] VITALS: BP 146/70; RESP 15
[2017-02-05] MEDS: INSULIN ASPART [NOVOLOG] 3 ML PEN SC SCH ×4 (07:53→20:15)
[2017-02-05] MEDS: ASPIRIN (EC) 81 MG TAB PO SCH (09:07)
[2017-02-05] MEDS: TACROLIMUS 1 MG CAP PO SCH ×2 (09:07→20:15)
[2017-02-05] MEDS: MYCOPHENOLATE 250 MG CAP PO SCH ×2 (09:07→20:14)
[2017-02-05] MEDS: FOLIC ACID 1 MG TAB PO SCH (09:07)
[2017-02-05] MEDS: GABAPENTIN 100 MG CAP PO SCH ×3 (09:07→20:15)
[2017-02-05] MEDS: CLOPIDOGREL 75 MG TAB PO SCH (09:07)
[2017-02-05] MEDS: CHOLECALCIFEROL 1,000 UNIT TAB PO SCH (09:08)
[2017-02-05] MEDS: BENAZEPRIL 10 MG TAB PO SCH ×2 (09:08→20:16)
[2017-02-05] MEDS: METOPROLOL 50 MG TAB PO SCH ×2 (09:08→20:16)
--- NOTE | 2017-02-05 12:55 | PN ---
Date/Time of Note Date/Time of Note DATE: 02/05/17 TIME: 12:53 Assessment/Plan VTE Prophylaxis VTE Prophylaxis Intervention: SCD's Lines/Catheters IV Catheter Type (from Nrsg): PICC Line Central line still needed: Yes Urinary Cath still in place: No Assessment/Plan Chief Complaint/Hosp Course Patient remains hemodynamically stable, complains of moderate pain in the left stump, blood sugars well controlled, continue pain management, pending placement. Assessment/Plan - Acute encephalopathy, resolved. CT brain is negative for any acute pathology. 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 S/p left AKA 01/[address] Valencia, vascular surgery. - Diabetes mellitus type II. Continue Lantus and NovoLog. - History of kidney transplant in 2009, on immunosuppressive therapy. - Hypertension. Continue metoprolol, benazepril. 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 - Anemia of chronic kidney disease. Further recommendations based on clinical course. Plan of care discussed with Dr. Cohen Problems: Exam/Review of Systems Vital Signs Vitals Vital Signs Date Time Temp Pulse Resp B/P Pulse Ox O2 Delivery O2 Flow Rate FiO2 02/05/17 07:46 97.4 73 15 146/70 100 Intake and Output 02/04/17 02/04/17 02/05/17 15:00 23:00 07:00 Intake Total 800 ml 1720 ml Balance 800 ml 1720 ml Exam Constitutional: awake, alert Neck: supple Respiratory: clear to auscultation Cardiovascular: nl pulses Gastrointestinal: non-tender, soft Extremities: other (S/p LAKA, eschar) Results Result Diagram: 02/03/17 0413 02/03/17 0413 Results 24 hrs Laboratory Tests Test 02/04/17 17:24 02/04/17 20:39 02/05/17 07:52 02/05/17 12:09 Bedside Glucose 104 113 73 128 Medications Medications Current Medications Aspirin (Halfprin) 81 mg DAILY PO Last administered on 02/05/17 09:07; Admin Dose 81 MG; Start 12/27/16 at 09:00 Clopidogrel Bisulfate (plaVIX) 75 mg DAILY PO Last administered on 02/05/17 09:07; Admin Dose 75 MG; Start 12/27/16 at 09:00 Famotidine (Pepcid) 40 mg HS PO Last administered on 02/04/17 20:46; Admin Dose 40 MG; Start 12/26/16 at 21:00 Folic Acid (Folic Acid) 1 mg DAILY PO Last administered on 02/05/17 09:07; Admin Dose 1 MG; Start 12/27/16 at 09:00 Gabapentin (Neurontin) 100 mg TID PO Last administered on 02/05/17 09:07; Admin Dose 100 MG; Start 12/26/16 at 21:00 Mycophenolate Mofetil (Cellcept) 1,000 mg BID PO Last administered on 09:07; Admin Dose 1,000 MG; Start 12/26/16 at 21:00 Pantoprazole (Protonix Tab) 40 mg DAILY@06 PO Last administered on 02/05/17 05:17; Admin Dose 40 MG; Start 12/27/16 at 06:00 Diagnostic Test (Pha) (Accu-Chek) 1 ea 02 XX ; Start 12/27/16 at 02:00 Miscellaneous Information 1 ea NOTE XX ; Start 12/26/16 at 14:30 Glucose (Glutose) 15 gm Q15M PRN PO DECREASED GLUCOSE; Start 12/26/16 at 14:30 Glucose (Glutose) 22.5 gm Q15M PRN PO DECREASED GLUCOSE; Start 12/26/16 at 14:30 Dextrose (D50w Syringe) 25 ml Q15M PRN IV DECREASED GLUCOSE; Start 12/26/16 at 14:30 Dextrose (D50w Syringe) 50 ml Q15M PRN IV DECREASED GLUCOSE; Start 12/26/16 at 14:30 Glucagon (Glucagen) 1 mg Q15M PRN IM DECREASED GLUCOSE; Start 12/26/16 at 14:30 Glucose (Glutose) 15 gm Q15M PRN BUCCAL DECREASED GLUCOSE; Start 12/26/16 at 14: 30 Cholecalciferol (Vitamin D) 1,000 unit DAILY PO Last administered on 09:08; Admin Dose 1,000 UNIT; Start 12/28/16 at 09:00 Ondansetron HCl (Zofran Inj) 4 mg Q6H PRN IV NAUSEA AND/OR VOMITING Last administered on 01/15/17 09:50; Admin Dose 4 MG; Start 01/01/17 at 10:00 Haloperidol (Haldol) 2 mg Q4H PRN IM AGITATION/ANXIETY Last administered on 22:46; Admin Dose 2 MG; Start 01/08/17 at 01:30 Acetaminophen (Tylenol Tab) 650 mg Q6H PRN PO PAIN AND OR ELEVATED TEMP Last administered on 01/16/17 10:25; Admin Dose 650 MG; Start 01/08/17 at 22:30 Quetiapine Fumarate (Seroquel) 25 mg QHS PRN PO agitation/hallucinations Last administered on 01/09/17 22:15; Admin Dose 25 MG; Start 01/09/17 at 21:00 Morphine Sulfate (morphine) 2 mg Q8H PRN IV PAIN LEVEL 6-10 Last administered on 01/19/17 16:02; Admin Dose 2 MG; Start 01/11/17 at 14:00 Clonidine (Catapres) 0.1 mg Q6H PRN PO hypertension Last administered on 02:41; Admin Dose 0.1 MG; Start 01/14/17 at 02:30 Hydralazine HCl (Apresoline) 25 mg Q6H PRN IV ELEVATED SYSTOLIC BP Last administered on 01/14/17 07:04; Admin Dose 25 MG; Start 01/14/17 at 07:00 Insulin Glargine (Lantus) 5 unit DAILY@20 SC Last administered on 02/04/17 20 :43; Admin Dose 5 UNIT; Start 01/17/17 at 20:00 Tacrolimus (Prograf) 2 mg Q12 PO Last administered on 02/05/17 09:07; Admin Dose 2 MG; Start 01/18/17 at 09:00 IV Flush (NS 10 ml) 10 ml PRN PRN IV IV PROTOCOL Last administered on 11:54; Admin Dose 10 ML; Start 01/19/17 at 12:30 Acetaminophen/ Hydrocodone Bitart ([place] (5/325)) 1 tab Q8H PRN PO PAIN Last administered on 02/04/17 20:58; Admin Dose 1 TAB; Start 01/19/17 at 14:30 Metoprolol Tartrate (Lopressor) 50 mg BID PO Last administered on 02/05/17 09 :08; Admin Dose 50 MG; Start 01/23/17 at 21:00 Benazepril HCl 10 mg 10 mg BID PO Last administered on 02/05/17 09:08; Admin Dose 10 MG; Start 01/31/17 at 21:00 Sodium Chloride (NS) 1,000 ml @ 80 mls/hr [id number] IV Last administered on 00:57; Admin Dose 80 MLS/HR; Start 02/03/17 at 10:30 LES GILLILAND Feb 05, 2017 12:55
[2017-02-05 14:00] VITALS: BP 130/65; RESP 18
[2017-02-05] MEDS: HYDROCODONE/APAP (5/325) TAB PO PRN (14:50)
--- NOTE | 2017-02-05 15:50 | CONS ---
Date/Time of Note Date/Time of Note DATE: 02/05/17 TIME: 15:45 Assessment/Plan Assessment/Plan Chief Complaint/Hosp Course IMP: 1.Txh-vd-esfslx test 10/2016 with no ischemia/only scar/NL EF. Negative trop x 3. 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 Encephalopathy 7. Hyponatremia-ongoing Recc: -Continue asa/plavix -Continue benazepril/BB at current doses with well controlled BP currently -Local wound care -Continue abx's and f/u cx data -Continue immuonosuppresives -Follow volume status closely on IVF hydration Problems: Consultation Date/Type/Reason Admit Date/Time Dec 26, 2016 at 13:22 Initial Consult Date 12/27/16 Type of Consultation: cardiology Reason for Consultation HTN Referring Provider: LES GILLILAND Exam/Review of Systems Vital Signs Vitals Vital Signs Date Time Temp Pulse Resp B/P Pulse Ox O2 Delivery O2 Flow Rate FiO2 02/05/17 14:00 98.0 68 18 130/65 99 Intake and Output 02/04/17 02/04/17 02/05/17 15:00 23:00 07:00 Intake Total 800 ml 1720 ml Balance 800 ml 1720 ml Exam Review of Systems: CONSTITUTIONAL: No fevers, chills. PULMONARY: No sob CARDIOVASCULAR: No chest pain/palpitations GASTROINTESTINAL: No nausea/vomiting. GENITOURINARY: No hematuria/dysuria. MUSCULOSKELETAL: No myagias/arthalgias. PSYCHIATRIC: The patient denies depression. NEUROLOGIC: No weakness Constitutional: alert, oriented Psych: no complaints Head: normocephalic ENMT: mucosa pink and moist Neck: jvd (9 cm water), supple Cardiovascular: regular rate and rhythm Gastrointestinal: soft Musculoskeletal: muscle tone (normal) Extremities: edema (none), other (s/p LLE amputation) Neurological: other (No focal deficits) Results Result Diagram: 02/03/17 0413 02/03/17 0413 Results 24 hrs Laboratory Tests Test 02/04/17 17:24 02/04/17 20:39 02/05/17 07:52 02/05/17 12:09 Bedside Glucose 104 113 73 128 Medications Medications Current Medications Aspirin (Halfprin) 81 mg DAILY PO Last administered on 02/05/17 09:07; Admin Dose 81 MG; Start 12/27/16 at 09:00 Clopidogrel Bisulfate (plaVIX) 75 mg DAILY PO Last administered on 02/05/17 09:07; Admin Dose 75 MG; Start 12/27/16 at 09:00 Famotidine (Pepcid) 40 mg HS PO Last administered on 02/04/17 20:46; Admin Dose 40 MG; Start 12/26/16 at 21:00 Folic Acid (Folic Acid) 1 mg DAILY PO Last administered on 02/05/17 09:07; Admin Dose 1 MG; Start 12/27/16 at 09:00 Gabapentin (Neurontin) 100 mg TID PO Last administered on 02/05/17 14:45; Admin Dose 100 MG; Start 12/26/16 at 21:00 Mycophenolate Mofetil (Cellcept) 1,000 mg BID PO Last administered on 09:07; Admin Dose 1,000 MG; Start 12/26/16 at 21:00 Pantoprazole (Protonix Tab) 40 mg DAILY@06 PO Last administered on 02/05/17 05:17; Admin Dose 40 MG; Start 12/27/16 at 06:00 Diagnostic Test (Pha) (Accu-Chek) 1 ea 02 XX ; Start 12/27/16 at 02:00 Miscellaneous Information 1 ea NOTE XX ; Start 12/26/16 at 14:30 Glucose (Glutose) 15 gm Q15M PRN PO DECREASED GLUCOSE; Start 12/26/16 at 14:30 Glucose (Glutose) 22.5 gm Q15M PRN PO DECREASED GLUCOSE; Start 12/26/16 at 14:30 Dextrose (D50w Syringe) 25 ml Q15M PRN IV DECREASED GLUCOSE; Start 12/26/16 at 14:30 Dextrose (D50w Syringe) 50 ml Q15M PRN IV DECREASED GLUCOSE; Start 12/26/16 at 14:30 Glucagon (Glucagen) 1 mg Q15M PRN IM DECREASED GLUCOSE; Start 12/26/16 at 14:30 Glucose (Glutose) 15 gm Q15M PRN BUCCAL DECREASED GLUCOSE; Start 12/26/16 at 14: 30 Cholecalciferol (Vitamin D) 1,000 unit DAILY PO Last administered on 09:08; Admin Dose 1,000 UNIT; Start 12/28/16 at 09:00 Ondansetron HCl (Zofran Inj) 4 mg Q6H PRN IV NAUSEA AND/OR VOMITING Last administered on 01/15/17 09:50; Admin Dose 4 MG; Start 01/01/17 at 10:00 Haloperidol (Haldol) 2 mg Q4H PRN IM AGITATION/ANXIETY Last administered on 22:46; Admin Dose 2 MG; Start 01/08/17 at 01:30 Acetaminophen (Tylenol Tab) 650 mg Q6H PRN PO PAIN AND OR ELEVATED TEMP Last administered on 01/16/17 10:25; Admin Dose 650 MG; Start 01/08/17 at 22:30 Quetiapine Fumarate (Seroquel) 25 mg QHS PRN PO agitation/hallucinations Last administered on 01/09/17 22:15; Admin Dose 25 MG; Start 01/09/17 at 21:00 Morphine Sulfate (morphine) 2 mg Q8H PRN IV PAIN LEVEL 6-10 Last administered on 01/19/17 16:02; Admin Dose 2 MG; Start 01/11/17 at 14:00 Clonidine (Catapres) 0.1 mg Q6H PRN PO hypertension Last administered on 02:41; Admin Dose 0.1 MG; Start 01/14/17 at 02:30 Hydralazine HCl (Apresoline) 25 mg Q6H PRN IV ELEVATED SYSTOLIC BP Last administered on 01/14/17 07:04; Admin Dose 25 MG; Start 01/14/17 at 07:00 Insulin Glargine (Lantus) 5 unit DAILY@20 SC Last administered on 02/04/17 20 :43; Admin Dose 5 UNIT; Start 01/17/17 at 20:00 Tacrolimus (Prograf) 2 mg Q12 PO Last administered on 02/05/17 09:07; Admin Dose 2 MG; Start 01/18/17 at 09:00 IV Flush (NS 10 ml) 10 ml PRN PRN IV IV PROTOCOL Last administered on 11:54; Admin Dose 10 ML; Start 01/19/17 at 12:30 Acetaminophen/ Hydrocodone Bitart ([place] (5/325)) 1 tab Q8H PRN PO PAIN Last administered on 02/05/17 14:50; Admin Dose 1 TAB; Start 01/19/17 at 14:30 Metoprolol Tartrate (Lopressor) 50 mg BID PO Last administered on 02/05/17 09 :08; Admin Dose 50 MG; Start 01/23/17 at 21:00 Benazepril HCl 10 mg 10 mg BID PO Last administered on 02/05/17 09:08; Admin Dose 10 MG; Start 01/31/17 at 21:00 Sodium Chloride (NS) 1,000 ml @ 80 mls/hr [id number] IV Last administered on 14:45; Admin Dose 80 MLS/HR; Start 02/03/17 at 10:30 TIMOTHY CORTES Feb 05, 2017 15:50
--- NOTE | 2017-02-05 16:18 | CONS ---
Date/Time of Note Date/Time of Note DATE: 02/05/17 TIME: 16:17 Assessment/Plan Assessment/Plan Additional Assessment/Plan 1. 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 h/o donor kidney transplant in 2009 at [facility], currently on immunosuppression with Prograf, CellCept 4. 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 History of hypertension. 6. History of diabetes mellitus. 7. History of previous left upper extremity arteriovenous fistula. 8. Hyponatremia due to hypovolemic hyponatremia post op 9. -CT chest+ abd+pelvis with and without contrast negative for mass/LAD/ Malignancy Plan: continue Current immunosuppression Prograf and cellcept, Cr 0.68, Na dropped to 130 from 138 - currently getting IVF NS, no chemistry today to review yet, AM labs incluidng BMP has been ordered. s/p Left AKA, off IV abx now, continue lotensin for now ID following will continue to follow up on patient Consultation Date/Type/Reason Admit Date/Time Dec 26, 2016 at 13:22 Initial Consult Date 12/27/16 Type of Consultation: NEPHROLOGY Referring Provider: LES GILLILAND 24 HR Interval Summary Free Text/Dictation no chemistry today to review yet Exam/Review of Systems Vital Signs Vitals Vital Signs Date Time Temp Pulse Resp B/P Pulse Ox O2 Delivery O2 Flow Rate FiO2 02/05/17 14:00 98.0 68 18 130/65 99 Intake and Output 02/04/17 02/04/17 02/05/17 15:00 23:00 07:00 Intake Total 800 ml 1720 ml Balance 800 ml 1720 ml Results Result Diagram: 02/03/17 0413 02/03/17 0413 Results 24 hrs Laboratory Tests Test 02/04/17 17:24 02/04/17 20:39 02/05/17 07:52 02/05/17 12:09 Bedside Glucose 104 113 73 128 Medications Medications Current Medications Aspirin (Halfprin) 81 mg DAILY PO Last administered on 02/05/17 09:07; Admin Dose 81 MG; Start 12/27/16 at 09:00 Clopidogrel Bisulfate (plaVIX) 75 mg DAILY PO Last administered on 02/05/17 09:07; Admin Dose 75 MG; Start 12/27/16 at 09:00 Famotidine (Pepcid) 40 mg HS PO Last administered on 02/04/17 20:46; Admin Dose 40 MG; Start 12/26/16 at 21:00 Folic Acid (Folic Acid) 1 mg DAILY PO Last administered on 02/05/17 09:07; Admin Dose 1 MG; Start 12/27/16 at 09:00 Gabapentin (Neurontin) 100 mg TID PO Last administered on 02/05/17 14:45; Admin Dose 100 MG; Start 12/26/16 at 21:00 Mycophenolate Mofetil (Cellcept) 1,000 mg BID PO Last administered on 09:07; Admin Dose 1,000 MG; Start 12/26/16 at 21:00 Pantoprazole (Protonix Tab) 40 mg DAILY@06 PO Last administered on 02/05/17 05:17; Admin Dose 40 MG; Start 12/27/16 at 06:00 Diagnostic Test (Pha) (Accu-Chek) 1 ea 02 XX ; Start 12/27/16 at 02:00 Miscellaneous Information 1 ea NOTE XX ; Start 12/26/16 at 14:30 Glucose (Glutose) 15 gm Q15M PRN PO DECREASED GLUCOSE; Start 12/26/16 at 14:30 Glucose (Glutose) 22.5 gm Q15M PRN PO DECREASED GLUCOSE; Start 12/26/16 at 14:30 Dextrose (D50w Syringe) 25 ml Q15M PRN IV DECREASED GLUCOSE; Start 12/26/16 at 14:30 Dextrose (D50w Syringe) 50 ml Q15M PRN IV DECREASED GLUCOSE; Start 12/26/16 at 14:30 Glucagon (Glucagen) 1 mg Q15M PRN IM DECREASED GLUCOSE; Start 12/26/16 at 14:30 Glucose (Glutose) 15 gm Q15M PRN BUCCAL DECREASED GLUCOSE; Start 12/26/16 at 14: 30 Cholecalciferol (Vitamin D) 1,000 unit DAILY PO Last administered on 09:08; Admin Dose 1,000 UNIT; Start 12/28/16 at 09:00 Ondansetron HCl (Zofran Inj) 4 mg Q6H PRN IV NAUSEA AND/OR VOMITING Last administered on 01/15/17 09:50; Admin Dose 4 MG; Start 01/01/17 at 10:00 Haloperidol (Haldol) 2 mg Q4H PRN IM AGITATION/ANXIETY Last administered on 22:46; Admin Dose 2 MG; Start 01/08/17 at 01:30 Acetaminophen (Tylenol Tab) 650 mg Q6H PRN PO PAIN AND OR ELEVATED TEMP Last administered on 01/16/17 10:25; Admin Dose 650 MG; Start 01/08/17 at 22:30 Quetiapine Fumarate (Seroquel) 25 mg QHS PRN PO agitation/hallucinations Last administered on 01/09/17 22:15; Admin Dose 25 MG; Start 01/09/17 at 21:00 Morphine Sulfate (morphine) 2 mg Q8H PRN IV PAIN LEVEL 6-10 Last administered on 01/19/17 16:02; Admin Dose 2 MG; Start 01/11/17 at 14:00 Clonidine (Catapres) 0.1 mg Q6H PRN PO hypertension Last administered on 02:41; Admin Dose 0.1 MG; Start 01/14/17 at 02:30 Hydralazine HCl (Apresoline) 25 mg Q6H PRN IV ELEVATED SYSTOLIC BP Last administered on 01/14/17 07:04; Admin Dose 25 MG; Start 01/14/17 at 07:00 Insulin Glargine (Lantus) 5 unit DAILY@20 SC Last administered on 02/04/17 20 :43; Admin Dose 5 UNIT; Start 01/17/17 at 20:00 Tacrolimus (Prograf) 2 mg Q12 PO Last administered on 02/05/17 09:07; Admin Dose 2 MG; Start 01/18/17 at 09:00 IV Flush (NS 10 ml) 10 ml PRN PRN IV IV PROTOCOL Last administered on 11:54; Admin Dose 10 ML; Start 01/19/17 at 12:30 Acetaminophen/ Hydrocodone Bitart ([place] (5/325)) 1 tab Q8H PRN PO PAIN Last administered on 02/05/17 14:50; Admin Dose 1 TAB; Start 01/19/17 at 14:30 Metoprolol Tartrate (Lopressor) 50 mg BID PO Last administered on 02/05/17 09 :08; Admin Dose 50 MG; Start 01/23/17 at 21:00 Benazepril HCl 10 mg 10 mg BID PO Last administered on 02/05/17 09:08; Admin Dose 10 MG; Start 01/31/17 at 21:00 Sodium Chloride (NS) 1,000 ml @ 80 mls/hr [id number] IV Last administered on 14:45; Admin Dose 80 MLS/HR; Start 02/03/17 at 10:30 RAMON KEMP MD Feb 05, 2017 16:18
[2017-02-05 20:14] VITALS: BP 110/57; RESP 18
[2017-02-05] MEDS: FAMOTIDINE 20 MG TAB PO SCH (20:14)
[2017-02-05] MEDS: INSULIN GLARGINE [LANtus] 3 ML PEN SC SCH (20:18)
--- NOTE | 2017-02-05 21:42 | CONS ---
Date/Time of Note Date/Time of Note DATE: 02/05/17 TIME: 21:40 Consult Date/Type/Reason Admit Date/Time Dec 26, 2016 at 13:22 Initial Consult Date 12/27/16 Type of Consultation: ID Ordering Provider: LES GILLILAND Objective Vital Signs Date Time Temp Pulse Resp B/P Pulse Ox O2 Delivery O2 Flow Rate FiO2 02/05/17 20:14 97.7 64 18 110/57 99 Intake and Output 02/04/17 02/04/17 02/05/17 15:00 23:00 07:00 Intake Total 800 ml 1720 ml Balance 800 ml 1720 ml Results/Medications Result Diagram: 02/03/17 0413 02/03/17 0413 Results 24 hrs Laboratory Tests Test 02/05/17 07:52 02/05/17 12:09 02/05/17 17:54 02/05/17 20:13 Bedside Glucose 73 128 99 103 Medications Current Medications Aspirin (Halfprin) 81 mg DAILY PO Last administered on 02/05/17 09:07; Admin Dose 81 MG; Start 12/27/16 at 09:00 Clopidogrel Bisulfate (plaVIX) 75 mg DAILY PO Last administered on 02/05/17 09:07; Admin Dose 75 MG; Start 12/27/16 at 09:00 Famotidine (Pepcid) 40 mg HS PO Last administered on 02/05/17 20:14; Admin Dose 40 MG; Start 12/26/16 at 21:00 Folic Acid (Folic Acid) 1 mg DAILY PO Last administered on 02/05/17 09:07; Admin Dose 1 MG; Start 12/27/16 at 09:00 Gabapentin (Neurontin) 100 mg TID PO Last administered on 02/05/17 20:15; Admin Dose 100 MG; Start 12/26/16 at 21:00 Mycophenolate Mofetil (Cellcept) 1,000 mg BID PO Last administered on 20:14; Admin Dose 1,000 MG; Start 12/26/16 at 21:00 Pantoprazole (Protonix Tab) 40 mg DAILY@06 PO Last administered on 02/05/17 05:17; Admin Dose 40 MG; Start 12/27/16 at 06:00 Diagnostic Test (Pha) (Accu-Chek) 1 ea 02 XX ; Start 12/27/16 at 02:00 Miscellaneous Information 1 ea NOTE XX ; Start 12/26/16 at 14:30 Glucose (Glutose) 15 gm Q15M PRN PO DECREASED GLUCOSE; Start 12/26/16 at 14:30 Glucose (Glutose) 22.5 gm Q15M PRN PO DECREASED GLUCOSE; Start 12/26/16 at 14:30 Dextrose (D50w Syringe) 25 ml Q15M PRN IV DECREASED GLUCOSE; Start 12/26/16 at 14:30 Dextrose (D50w Syringe) 50 ml Q15M PRN IV DECREASED GLUCOSE; Start 12/26/16 at 14:30 Glucagon (Glucagen) 1 mg Q15M PRN IM DECREASED GLUCOSE; Start 12/26/16 at 14:30 Glucose (Glutose) 15 gm Q15M PRN BUCCAL DECREASED GLUCOSE; Start 12/26/16 at 14: 30 Cholecalciferol (Vitamin D) 1,000 unit DAILY PO Last administered on 09:08; Admin Dose 1,000 UNIT; Start 12/28/16 at 09:00 Ondansetron HCl (Zofran Inj) 4 mg Q6H PRN IV NAUSEA AND/OR VOMITING Last administered on 01/15/17 09:50; Admin Dose 4 MG; Start 01/01/17 at 10:00 Haloperidol (Haldol) 2 mg Q4H PRN IM AGITATION/ANXIETY Last administered on 22:46; Admin Dose 2 MG; Start 01/08/17 at 01:30 Acetaminophen (Tylenol Tab) 650 mg Q6H PRN PO PAIN AND OR ELEVATED TEMP Last administered on 01/16/17 10:25; Admin Dose 650 MG; Start 01/08/17 at 22:30 Quetiapine Fumarate (Seroquel) 25 mg QHS PRN PO agitation/hallucinations Last administered on 01/09/17 22:15; Admin Dose 25 MG; Start 01/09/17 at 21:00 Morphine Sulfate (morphine) 2 mg Q8H PRN IV PAIN LEVEL 6-10 Last administered on 01/19/17 16:02; Admin Dose 2 MG; Start 01/11/17 at 14:00 Clonidine (Catapres) 0.1 mg Q6H PRN PO hypertension Last administered on 02:41; Admin Dose 0.1 MG; Start 01/14/17 at 02:30 Hydralazine HCl (Apresoline) 25 mg Q6H PRN IV ELEVATED SYSTOLIC BP Last administered on 01/14/17 07:04; Admin Dose 25 MG; Start 01/14/17 at 07:00 Insulin Glargine (Lantus) 5 unit DAILY@20 SC Last administered on 02/05/17 20 :18; Admin Dose 5 UNIT; Start 01/17/17 at 20:00 Tacrolimus (Prograf) 2 mg Q12 PO Last administered on 02/05/17 20:15; Admin Dose 2 MG; Start 01/18/17 at 09:00 IV Flush (NS 10 ml) 10 ml PRN PRN IV IV PROTOCOL Last administered on 11:54; Admin Dose 10 ML; Start 01/19/17 at 12:30 Acetaminophen/ Hydrocodone Bitart ([place] (5/325)) 1 tab Q8H PRN PO PAIN Last administered on 02/05/17 14:50; Admin Dose 1 TAB; Start 01/19/17 at 14:30 Metoprolol Tartrate (Lopressor) 50 mg BID PO Last administered on 02/05/17 09 :08; Admin Dose 50 MG; Start 01/23/17 at 21:00 Benazepril HCl 10 mg 10 mg BID PO Last administered on 02/05/17 09:08; Admin Dose 10 MG; Start 01/31/17 at 21:00 Sodium Chloride (NS) 1,000 ml @ 80 mls/hr [id number] IV Last administered on 14:45; Admin Dose 80 MLS/HR; Start 02/03/17 at 10:30 Assessment/Plan Chief Complaint/Hosp Course SUBJECTIVE DATA: No acute events. Patient is alert, c/o stump pain, looks comfortable. No fevers. ANTIMICROBIALS: none OBJECTIVE DATA: GENERAL: Chronically ill-appearing, elderly woman, who is awake, in no distress. HEENT: Head atraumatic, normocephalic. Sclerae anicteric. Buccal mucosa dry. NECK: Supple. CHEST: Rise symmetrical. Breath sounds diminished at the bases. HEART: S1, S2. ABDOMEN: Soft, bowel sounds present. EXTREMITIES: With left above-knee amputation. The right foot necrotic with open wound and scant drainage ASSESSMENT: 1. Bilateral lower extremities gangrene, status post left above- knee amputation. 2. Severe peripheral arterial disease, failed multiple revascularization procedures. 3. History of kidney transplant, remains on immunosuppressive therapy. 4. Resolved diarrhea, on empiric oral vancomycin. 5. Diabetes. 6. History of fpkjfizp-dmydgtwz-yglw-lactamase urinary tract infection. 7. R foot gangrene with open wound==> cx + E coli ESBL==> treated PLAN: Patient remains stable. Pending repeated wound cx, she is off abx, vascular follows, continue pain management/PT [facility] staff Problems: JACQUES HUERTA NP Feb 05, 2017 21:42
[2017-02-06] MEDS: SOD CHLORIDE 0.9% 1,000 ML IV SCH ×3 (00:40→20:18)
[2017-02-06] MEDS: ACCU-CHEK XX SCH (01:01)
[2017-02-06 03:03] VITALS: BP 151/70; RESP 18
[2017-02-06] MEDS: PANTOPRAZOLE (EC) 40 MG TAB PO SCH (05:17)
[2017-02-06] MEDS: HYDROCODONE/APAP (5/325) TAB PO PRN ×2 (05:17→22:30)
[2017-02-06 05:18] LABS: BASOPHILS % 0.5 % (0.0-2.0); EOSINOPHILS # 0.1 10^3/ul (0.0-0.5); EOSINOPHILS % 2.9 % (0.0-7.0); HEMATOCRIT 29.1 % (37.0-47.0); LYMPHOCYTES # 0.9 10^3/ul (0.8-2.9); LYMPHOCYTES % 21.1 % (15.0-51.0); MEAN CORPUSCULAR HEMOGLOBIN 27.2 pg (29.0-33.0); MEAN CORPUSCULAR HGB CONC 30.9 g/dl (32.0-37.0); MEAN CORPUSCULAR VOLUME 87.9 fl (82.0-101.0); MONOCYTE # 0.6 10^3/ul (0.3-0.9); MONOCYTES % 14.7 % (0.0-11.0); NEUTROPHIL # 2.5 10^3/ul (1.6-7.5); NEUTROPHILS % 60.6 % (39.0-77.0); PLATELET COUNT 211 10^3/UL (140-415); RED BLOOD COUNT 3.31 10^6/ul (4.20-5.40); RED CELL DISTRIBUTION WIDTH 15.4 % (11.5-14.5); WHITE BLOOD COUNT 4.1 10^3/ul (4.8-10.8)
[2017-02-06 06:20] LABS: CALCIUM 9.1 mg/dl (8.4-10.2); CREATININE 0.57 mg/dl (0.44-1.00); POTASSIUM 4.2 mmol/L (3.5-5.1)
[2017-02-06] MEDS: INSULIN ASPART [NOVOLOG] 3 ML PEN SC SCH ×4 (07:53→20:17)
[2017-02-06 08:00] VITALS: BP 100/62; RESP 18
[2017-02-06] MEDS: TACROLIMUS 1 MG CAP PO SCH ×2 (09:12→20:17)
[2017-02-06] MEDS: FOLIC ACID 1 MG TAB PO SCH (09:13)
[2017-02-06] MEDS: CLOPIDOGREL 75 MG TAB PO SCH (09:13)
[2017-02-06] MEDS: ASPIRIN (EC) 81 MG TAB PO SCH (09:13)
[2017-02-06] MEDS: CHOLECALCIFEROL 1,000 UNIT TAB PO SCH (09:13)
[2017-02-06] MEDS: MYCOPHENOLATE 250 MG CAP PO SCH ×2 (09:13→20:17)
[2017-02-06] MEDS: METOPROLOL 50 MG TAB PO SCH ×2 (09:13→20:18)
[2017-02-06] MEDS: GABAPENTIN 100 MG CAP PO SCH ×3 (09:13→20:17)
[2017-02-06] MEDS: BENAZEPRIL 10 MG TAB PO SCH ×2 (09:13→20:18)
[2017-02-06] MEDS: ZYVOX 600 MG TAB PO SCH ×2 (11:51→20:17)
[2017-02-06 14:00] VITALS: BP 121/72; RESP 16
--- NOTE | 2017-02-06 17:02 | CONS ---
Date/Time of Note Date/Time of Note DATE: 02/06/17 TIME: 17:01 Assessment/Plan Assessment/Plan Chief Complaint/Hosp Course IMP: 1.Lzv-gl-przjoo test 10/2016 with no ischemia/only scar/NL EF. Negative trop x 3. 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 Encephalopathy 7. Hyponatremia-ongoing Recc: -Continue asa/plavix -Continue benazepril/BB at current doses with well controlled BP currently -Local wound care -Continue abx's and f/u cx data -Continue immuonosuppresives -Follow volume status closely on IVF hydration Problems: Consultation Date/Type/Reason Admit Date/Time Dec 26, 2016 at 13:22 Initial Consult Date 12/27/16 Type of Consultation: cardiology Reason for Consultation HTN Referring Provider: LES GILLILAND Exam/Review of Systems Vital Signs Vitals Vital Signs Date Time Temp Pulse Resp B/P Pulse Ox O2 Delivery O2 Flow Rate FiO2 02/06/17 14:00 98.0 65 16 121/72 98 Intake and Output 02/05/17 02/05/17 02/06/17 15:00 23:00 07:00 Intake Total 680 ml 840 ml 1400 ml Balance 680 ml 840 ml 1400 ml Exam Review of Systems: CONSTITUTIONAL: No fevers, chills. PULMONARY: No sob CARDIOVASCULAR: No chest pain/palpitations GASTROINTESTINAL: No nausea/vomiting. GENITOURINARY: No hematuria/dysuria. MUSCULOSKELETAL:mild pain in leg PSYCHIATRIC: The patient denies depression. NEUROLOGIC: No weakness Constitutional: other (sleeping, arousable) Psych: no complaints Head: normocephalic ENMT: mucosa pink and moist Neck: jvd (9 cm water), supple Respiratory: diminished breath sounds (at bases/B) Cardiovascular: regular rate and rhythm Gastrointestinal: non-tender, soft Musculoskeletal: muscle tone (normal) Extremities: other (s/p LE amputation) Neurological: lethargic Results Result Diagram: 02/06/17 0445 02/06/17 0445 Results 24 hrs Laboratory Tests Test 02/05/17 17:54 02/05/17 20:13 02/06/17 04:45 02/06/17 07:43 Bedside Glucose 99 103 82 White Blood Count 4.1 L Red Blood Count 3.31 L Hemoglobin 9.0 L Hematocrit 29.1 L Mean Corpuscular Volume 87.9 Mean Corpuscular Hemoglobin 27.2 L Mean Corpuscular Hemoglobin Concent 30.9 L Red Cell Distribution Width 15.4 H Platelet Count 211 # Mean Platelet Volume 11.0 H Neutrophils % 60.6 Lymphocytes % 21.1 Monocytes % 14.7 H Eosinophils % 2.9 Basophils % 0.5 Nucleated Red Blood Cells % 0.0 Neutrophils # 2.5 Lymphocytes # 0.9 Monocytes # 0.6 Eosinophils # 0.1 Basophils # 0.0 Nucleated Red Blood Cells # 0.0 Sodium Level 138 Potassium Level 4.2 Chloride Level 109 Carbon Dioxide Level 24 Anion Gap 9 Blood Urea Nitrogen 13 Creatinine 0.57 Glucose Level 79 Calcium Level 9.1 Test 02/06/17 11:51 02/06/17 16:59 Bedside Glucose 112 117 Medications Medications Current Medications Aspirin (Halfprin) 81 mg DAILY PO Last administered on 02/06/17 09:13; Admin Dose 81 MG; Start 12/27/16 at 09:00 Clopidogrel Bisulfate (plaVIX) 75 mg DAILY PO Last administered on 02/06/17 09:13; Admin Dose 75 MG; Start 12/27/16 at 09:00 Famotidine (Pepcid) 40 mg HS PO Last administered on 02/05/17 20:14; Admin Dose 40 MG; Start 12/26/16 at 21:00 Folic Acid (Folic Acid) 1 mg DAILY PO Last administered on 02/06/17 09:13; Admin Dose 1 MG; Start 12/27/16 at 09:00 Gabapentin (Neurontin) 100 mg TID PO Last administered on 02/06/17 12:25; Admin Dose 100 MG; Start 12/26/16 at 21:00 Mycophenolate Mofetil (Cellcept) 1,000 mg BID PO Last administered on 09:13; Admin Dose 1,000 MG; Start 12/26/16 at 21:00 Pantoprazole (Protonix Tab) 40 mg DAILY@06 PO Last administered on 02/06/17 05:17; Admin Dose 40 MG; Start 12/27/16 at 06:00 Diagnostic Test (Pha) (Accu-Chek) 1 ea 02 XX ; Start 12/27/16 at 02:00 Miscellaneous Information 1 ea NOTE XX ; Start 12/26/16 at 14:30 Glucose (Glutose) 15 gm Q15M PRN PO DECREASED GLUCOSE; Start 12/26/16 at 14:30 Glucose (Glutose) 22.5 gm Q15M PRN PO DECREASED GLUCOSE; Start 12/26/16 at 14:30 Dextrose (D50w Syringe) 25 ml Q15M PRN IV DECREASED GLUCOSE; Start 12/26/16 at 14:30 Dextrose (D50w Syringe) 50 ml Q15M PRN IV DECREASED GLUCOSE; Start 12/26/16 at 14:30 Glucagon (Glucagen) 1 mg Q15M PRN IM DECREASED GLUCOSE; Start 12/26/16 at 14:30 Glucose (Glutose) 15 gm Q15M PRN BUCCAL DECREASED GLUCOSE; Start 12/26/16 at 14: 30 Cholecalciferol (Vitamin D) 1,000 unit DAILY PO Last administered on 09:13; Admin Dose 1,000 UNIT; Start 12/28/16 at 09:00 Ondansetron HCl (Zofran Inj) 4 mg Q6H PRN IV NAUSEA AND/OR VOMITING Last administered on 01/15/17 09:50; Admin Dose 4 MG; Start 01/01/17 at 10:00 Haloperidol (Haldol) 2 mg Q4H PRN IM AGITATION/ANXIETY Last administered on 22:46; Admin Dose 2 MG; Start 01/08/17 at 01:30 Acetaminophen (Tylenol Tab) 650 mg Q6H PRN PO PAIN AND OR ELEVATED TEMP Last administered on 01/16/17 10:25; Admin Dose 650 MG; Start 01/08/17 at 22:30 Quetiapine Fumarate (Seroquel) 25 mg QHS PRN PO agitation/hallucinations Last administered on 01/09/17 22:15; Admin Dose 25 MG; Start 01/09/17 at 21:00 Morphine Sulfate (morphine) 2 mg Q8H PRN IV PAIN LEVEL 6-10 Last administered on 01/19/17 16:02; Admin Dose 2 MG; Start 01/11/17 at 14:00 Clonidine (Catapres) 0.1 mg Q6H PRN PO hypertension Last administered on 02:41; Admin Dose 0.1 MG; Start 01/14/17 at 02:30 Hydralazine HCl (Apresoline) 25 mg Q6H PRN IV ELEVATED SYSTOLIC BP Last administered on 01/14/17 07:04; Admin Dose 25 MG; Start 01/14/17 at 07:00 Insulin Glargine (Lantus) 5 unit DAILY@20 SC Last administered on 02/05/17 20 :18; Admin Dose 5 UNIT; Start 01/17/17 at 20:00 Tacrolimus (Prograf) 2 mg Q12 PO Last administered on 02/06/17 09:12; Admin Dose 2 MG; Start 01/18/17 at 09:00 IV Flush (NS 10 ml) 10 ml PRN PRN IV IV PROTOCOL Last administered on 11:54; Admin Dose 10 ML; Start 01/19/17 at 12:30 Acetaminophen/ Hydrocodone Bitart ([place] (5/325)) 1 tab Q8H PRN PO PAIN Last administered on 02/06/17 05:17; Admin Dose 1 TAB; Start 01/19/17 at 14:30 Metoprolol Tartrate (Lopressor) 50 mg BID PO Last administered on 02/06/17 09 :13; Admin Dose 50 MG; Start 01/23/17 at 21:00 Benazepril HCl 10 mg 10 mg BID PO Last administered on 02/06/17 09:13; Admin Dose 10 MG; Start 01/31/17 at 21:00 Sodium Chloride (NS) 1,000 ml @ 80 mls/hr [id number] IV Last administered on 04:44; Admin Dose 80 MLS/HR; Start 02/03/17 at 10:30 Linezolid (Zyvox) 600 mg BID PO Last administered on 02/06/17 11:51; Admin Dose 600 MG; Start 02/06/17 at 11:00 TIMOTHY CORTES Feb 06, 2017 17:02
--- NOTE | 2017-02-06 18:03 | CONS ---
Date/Time of Note Date/Time of Note DATE: 02/06/17 TIME: 18:02 Assessment/Plan Assessment/Plan Additional Assessment/Plan 1. 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 h/o donor kidney transplant in 2009 at [facility], currently on immunosuppression with Prograf, CellCept 4. 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 History of hypertension. 6. History of diabetes mellitus. 7. History of previous left upper extremity arteriovenous fistula. 8. Hyponatremia due to hypovolemic hyponatremia post op 9. -CT chest+ abd+pelvis with and without contrast negative for mass/LAD/ Malignancy Plan: continue Current immunosuppression Prograf and cellcept, Cr 0.68,Electrolytes and Na normal today, plan is to d/c IVF in AM s/p Left AKA, off IV abx now, continue lotensin for now ID following will continue to follow up on patient Consultation Date/Type/Reason Admit Date/Time Dec 26, 2016 at 13:22 Initial Consult Date 12/27/16 Type of Consultation: NEPHRHOLOGY Referring Provider: LES GILLILAND 24 HR Interval Summary Free Text/Dictation doing ok, BP stable, afebrile Exam/Review of Systems Vital Signs Vitals Vital Signs Date Time Temp Pulse Resp B/P Pulse Ox O2 Delivery O2 Flow Rate FiO2 02/06/17 14:00 98.0 65 16 121/72 98 Intake and Output 02/05/17 02/05/17 02/06/17 15:00 23:00 07:00 Intake Total 680 ml 840 ml 1400 ml Balance 680 ml 840 ml 1400 ml Exam GEN: fragile elderly woman who is awake in no distress. HEENT: Head atraumatic, normocephalic. Sclerae anicteric. NECK: Supple. CHEST: Rise symmetrical. Breath sounds clear. HEART: S1, S2. ABDOMEN: Soft, bowel sounds present. left BKA dressing clean Results Result Diagram: 02/06/17 0445 02/06/17 0445 Results 24 hrs Laboratory Tests Test 02/05/17 20:13 02/06/17 04:45 02/06/17 07:43 02/06/17 11:51 Bedside Glucose 103 82 112 White Blood Count 4.1 L Red Blood Count 3.31 L Hemoglobin 9.0 L Hematocrit 29.1 L Mean Corpuscular Volume 87.9 Mean Corpuscular Hemoglobin 27.2 L Mean Corpuscular Hemoglobin Concent 30.9 L Red Cell Distribution Width 15.4 H Platelet Count 211 # Mean Platelet Volume 11.0 H Neutrophils % 60.6 Lymphocytes % 21.1 Monocytes % 14.7 H Eosinophils % 2.9 Basophils % 0.5 Nucleated Red Blood Cells % 0.0 Neutrophils # 2.5 Lymphocytes # 0.9 Monocytes # 0.6 Eosinophils # 0.1 Basophils # 0.0 Nucleated Red Blood Cells # 0.0 Sodium Level 138 Potassium Level 4.2 Chloride Level 109 Carbon Dioxide Level 24 Anion Gap 9 Blood Urea Nitrogen 13 Creatinine 0.57 Glucose Level 79 Calcium Level 9.1 Test 02/06/17 16:59 Bedside Glucose 117 Medications Medications Current Medications Aspirin (Halfprin) 81 mg DAILY PO Last administered on 02/06/17 09:13; Admin Dose 81 MG; Start 12/27/16 at 09:00 Clopidogrel Bisulfate (plaVIX) 75 mg DAILY PO Last administered on 02/06/17 09:13; Admin Dose 75 MG; Start 12/27/16 at 09:00 Famotidine (Pepcid) 40 mg HS PO Last administered on 02/05/17 20:14; Admin Dose 40 MG; Start 12/26/16 at 21:00 Folic Acid (Folic Acid) 1 mg DAILY PO Last administered on 02/06/17 09:13; Admin Dose 1 MG; Start 12/27/16 at 09:00 Gabapentin (Neurontin) 100 mg TID PO Last administered on 02/06/17 12:25; Admin Dose 100 MG; Start 12/26/16 at 21:00 Mycophenolate Mofetil (Cellcept) 1,000 mg BID PO Last administered on 09:13; Admin Dose 1,000 MG; Start 12/26/16 at 21:00 Pantoprazole (Protonix Tab) 40 mg DAILY@06 PO Last administered on 02/06/17 05:17; Admin Dose 40 MG; Start 12/27/16 at 06:00 Diagnostic Test (Pha) (Accu-Chek) 1 ea 02 XX ; Start 12/27/16 at 02:00 Miscellaneous Information 1 ea NOTE XX ; Start 12/26/16 at 14:30 Glucose (Glutose) 15 gm Q15M PRN PO DECREASED GLUCOSE; Start 12/26/16 at 14:30 Glucose (Glutose) 22.5 gm Q15M PRN PO DECREASED GLUCOSE; Start 12/26/16 at 14:30 Dextrose (D50w Syringe) 25 ml Q15M PRN IV DECREASED GLUCOSE; Start 12/26/16 at 14:30 Dextrose (D50w Syringe) 50 ml Q15M PRN IV DECREASED GLUCOSE; Start 12/26/16 at 14:30 Glucagon (Glucagen) 1 mg Q15M PRN IM DECREASED GLUCOSE; Start 12/26/16 at 14:30 Glucose (Glutose) 15 gm Q15M PRN BUCCAL DECREASED GLUCOSE; Start 12/26/16 at 14: 30 Cholecalciferol (Vitamin D) 1,000 unit DAILY PO Last administered on 09:13; Admin Dose 1,000 UNIT; Start 12/28/16 at 09:00 Ondansetron HCl (Zofran Inj) 4 mg Q6H PRN IV NAUSEA AND/OR VOMITING Last administered on 01/15/17 09:50; Admin Dose 4 MG; Start 01/01/17 at 10:00 Haloperidol (Haldol) 2 mg Q4H PRN IM AGITATION/ANXIETY Last administered on 22:46; Admin Dose 2 MG; Start 01/08/17 at 01:30 Acetaminophen (Tylenol Tab) 650 mg Q6H PRN PO PAIN AND OR ELEVATED TEMP Last administered on 01/16/17 10:25; Admin Dose 650 MG; Start 01/08/17 at 22:30 Quetiapine Fumarate (Seroquel) 25 mg QHS PRN PO agitation/hallucinations Last administered on 01/09/17 22:15; Admin Dose 25 MG; Start 01/09/17 at 21:00 Morphine Sulfate (morphine) 2 mg Q8H PRN IV PAIN LEVEL 6-10 Last administered on 01/19/17 16:02; Admin Dose 2 MG; Start 01/11/17 at 14:00 Clonidine (Catapres) 0.1 mg Q6H PRN PO hypertension Last administered on 02:41; Admin Dose 0.1 MG; Start 01/14/17 at 02:30 Hydralazine HCl (Apresoline) 25 mg Q6H PRN IV ELEVATED SYSTOLIC BP Last administered on 01/14/17 07:04; Admin Dose 25 MG; Start 01/14/17 at 07:00 Insulin Glargine (Lantus) 5 unit DAILY@20 SC Last administered on 02/05/17 20 :18; Admin Dose 5 UNIT; Start 01/17/17 at 20:00 Tacrolimus (Prograf) 2 mg Q12 PO Last administered on 02/06/17 09:12; Admin Dose 2 MG; Start 01/18/17 at 09:00 IV Flush (NS 10 ml) 10 ml PRN PRN IV IV PROTOCOL Last administered on 11:54; Admin Dose 10 ML; Start 01/19/17 at 12:30 Acetaminophen/ Hydrocodone Bitart ([place] (5/325)) 1 tab Q8H PRN PO PAIN Last administered on 02/06/17 05:17; Admin Dose 1 TAB; Start 01/19/17 at 14:30 Metoprolol Tartrate (Lopressor) 50 mg BID PO Last administered on 02/06/17 09 :13; Admin Dose 50 MG; Start 01/23/17 at 21:00 Benazepril HCl 10 mg 10 mg BID PO Last administered on 02/06/17 09:13; Admin Dose 10 MG; Start 01/31/17 at 21:00 Sodium Chloride (NS) 1,000 ml @ 80 mls/hr [id number] IV Last administered on 04:44; Admin Dose 80 MLS/HR; Start 02/03/17 at 10:30 Linezolid (Zyvox) 600 mg BID PO Last administered on 02/06/17 11:51; Admin Dose 600 MG; Start 02/06/17 at 11:00 RAMON KEMP MD Feb 06, 2017 18:03
[2017-02-06 20:13] VITALS: BP 156/68; RESP 19
[2017-02-06] MEDS: FAMOTIDINE 20 MG TAB PO SCH (20:17)
[2017-02-06] MEDS: INSULIN GLARGINE [LANtus] 3 ML PEN SC SCH (20:20)
--- NOTE | 2017-02-06 22:03 | CONS ---
Date/Time of Note Date/Time of Note DATE: 02/06/17 TIME: 22:02 Consult Date/Type/Reason Admit Date/Time Dec 26, 2016 at 13:22 Initial Consult Date 12/27/16 Type of Consultation: ID Ordering Provider: LES GILLILAND Objective Vital Signs Date Time Temp Pulse Resp B/P Pulse Ox O2 Delivery O2 Flow Rate FiO2 02/06/17 20:13 98.3 71 19 156/68 98 Intake and Output 02/05/17 02/05/17 02/06/17 15:00 23:00 07:00 Intake Total 680 ml 840 ml 1400 ml Balance 680 ml 840 ml 1400 ml Results/Medications Result Diagram: 02/06/17 0445 02/06/17 0445 Results 24 hrs Laboratory Tests Test 02/06/17 04:45 02/06/17 07:43 02/06/17 11:51 02/06/17 16:59 White Blood Count 4.1 L Red Blood Count 3.31 L Hemoglobin 9.0 L Hematocrit 29.1 L Mean Corpuscular Volume 87.9 Mean Corpuscular Hemoglobin 27.2 L Mean Corpuscular Hemoglobin Concent 30.9 L Red Cell Distribution Width 15.4 H Platelet Count 211 # Mean Platelet Volume 11.0 H Neutrophils % 60.6 Lymphocytes % 21.1 Monocytes % 14.7 H Eosinophils % 2.9 Basophils % 0.5 Nucleated Red Blood Cells % 0.0 Neutrophils # 2.5 Lymphocytes # 0.9 Monocytes # 0.6 Eosinophils # 0.1 Basophils # 0.0 Nucleated Red Blood Cells # 0.0 Sodium Level 138 Potassium Level 4.2 Chloride Level 109 Carbon Dioxide Level 24 Anion Gap 9 Blood Urea Nitrogen 13 Creatinine 0.57 Glucose Level 79 Calcium Level 9.1 Bedside Glucose 82 112 117 Test 02/06/17 20:16 Bedside Glucose 106 Medications Current Medications Aspirin (Halfprin) 81 mg DAILY PO Last administered on 02/06/17 09:13; Admin Dose 81 MG; Start 12/27/16 at 09:00 Clopidogrel Bisulfate (plaVIX) 75 mg DAILY PO Last administered on 02/06/17 09:13; Admin Dose 75 MG; Start 12/27/16 at 09:00 Famotidine (Pepcid) 40 mg HS PO Last administered on 02/06/17 20:17; Admin Dose 40 MG; Start 12/26/16 at 21:00 Folic Acid (Folic Acid) 1 mg DAILY PO Last administered on 02/06/17 09:13; Admin Dose 1 MG; Start 12/27/16 at 09:00 Gabapentin (Neurontin) 100 mg TID PO Last administered on 02/06/17 20:17; Admin Dose 100 MG; Start 12/26/16 at 21:00 Mycophenolate Mofetil (Cellcept) 1,000 mg BID PO Last administered on 20:17; Admin Dose 1,000 MG; Start 12/26/16 at 21:00 Pantoprazole (Protonix Tab) 40 mg DAILY@06 PO Last administered on 02/06/17 05:17; Admin Dose 40 MG; Start 12/27/16 at 06:00 Diagnostic Test (Pha) (Accu-Chek) 1 ea 02 XX ; Start 12/27/16 at 02:00 Miscellaneous Information 1 ea NOTE XX ; Start 12/26/16 at 14:30 Glucose (Glutose) 15 gm Q15M PRN PO DECREASED GLUCOSE; Start 12/26/16 at 14:30 Glucose (Glutose) 22.5 gm Q15M PRN PO DECREASED GLUCOSE; Start 12/26/16 at 14:30 Dextrose (D50w Syringe) 25 ml Q15M PRN IV DECREASED GLUCOSE; Start 12/26/16 at 14:30 Dextrose (D50w Syringe) 50 ml Q15M PRN IV DECREASED GLUCOSE; Start 12/26/16 at 14:30 Glucagon (Glucagen) 1 mg Q15M PRN IM DECREASED GLUCOSE; Start 12/26/16 at 14:30 Glucose (Glutose) 15 gm Q15M PRN BUCCAL DECREASED GLUCOSE; Start 12/26/16 at 14: 30 Cholecalciferol (Vitamin D) 1,000 unit DAILY PO Last administered on 09:13; Admin Dose 1,000 UNIT; Start 12/28/16 at 09:00 Ondansetron HCl (Zofran Inj) 4 mg Q6H PRN IV NAUSEA AND/OR VOMITING Last administered on 01/15/17 09:50; Admin Dose 4 MG; Start 01/01/17 at 10:00 Haloperidol (Haldol) 2 mg Q4H PRN IM AGITATION/ANXIETY Last administered on 22:46; Admin Dose 2 MG; Start 01/08/17 at 01:30 Acetaminophen (Tylenol Tab) 650 mg Q6H PRN PO PAIN AND OR ELEVATED TEMP Last administered on 01/16/17 10:25; Admin Dose 650 MG; Start 01/08/17 at 22:30 Quetiapine Fumarate (Seroquel) 25 mg QHS PRN PO agitation/hallucinations Last administered on 01/09/17 22:15; Admin Dose 25 MG; Start 01/09/17 at 21:00 Morphine Sulfate (morphine) 2 mg Q8H PRN IV PAIN LEVEL 6-10 Last administered on 01/19/17 16:02; Admin Dose 2 MG; Start 01/11/17 at 14:00 Clonidine (Catapres) 0.1 mg Q6H PRN PO hypertension Last administered on 02:41; Admin Dose 0.1 MG; Start 01/14/17 at 02:30 Hydralazine HCl (Apresoline) 25 mg Q6H PRN IV ELEVATED SYSTOLIC BP Last administered on 01/14/17 07:04; Admin Dose 25 MG; Start 01/14/17 at 07:00 Insulin Glargine (Lantus) 5 unit DAILY@20 SC Last administered on 02/06/17 20 :20; Admin Dose 5 UNIT; Start 01/17/17 at 20:00 Tacrolimus (Prograf) 2 mg Q12 PO Last administered on 02/06/17 20:17; Admin Dose 2 MG; Start 01/18/17 at 09:00 IV Flush (NS 10 ml) 10 ml PRN PRN IV IV PROTOCOL Last administered on 11:54; Admin Dose 10 ML; Start 01/19/17 at 12:30 Acetaminophen/ Hydrocodone Bitart ([place] (5/325)) 1 tab Q8H PRN PO PAIN Last administered on 02/06/17 05:17; Admin Dose 1 TAB; Start 01/19/17 at 14:30 Metoprolol Tartrate (Lopressor) 50 mg BID PO Last administered on 02/06/17 20 :18; Admin Dose 50 MG; Start 01/23/17 at 21:00 Benazepril HCl 10 mg 10 mg BID PO Last administered on 02/06/17 20:18; Admin Dose 10 MG; Start 01/31/17 at 21:00 Sodium Chloride (NS) 1,000 ml @ 80 mls/hr [id number] IV Last administered on 20:18; Admin Dose 80 MLS/HR; Start 02/03/17 at 10:30 Linezolid (Zyvox) 600 mg BID PO Last administered on 02/06/17 20:17; Admin Dose 600 MG; Start 02/06/17 at 11:00 Assessment/Plan Chief Complaint/Hosp Course SUBJECTIVE DATA: No acute events. Patient is alert, looks comfortable. No fevers. ANTIMICROBIALS: Zyvox OBJECTIVE DATA: GENERAL: Chronically ill-appearing, elderly woman, who is awake, in no distress. HEENT: Head atraumatic, normocephalic. Sclerae anicteric. Buccal mucosa dry. NECK: Supple. CHEST: Rise symmetrical. Breath sounds diminished at the bases. HEART: S1, S2. ABDOMEN: Soft, bowel sounds present. EXTREMITIES: With left above-knee amputation. The right foot necrotic with open wound and scant drainage ASSESSMENT: 1. 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 2. Severe peripheral arterial disease, failed multiple revascularization procedures. 3. History of kidney transplant, remains on immunosuppressive therapy. 4. Resolved diarrhea, on empiric oral vancomycin. 5. Diabetes. 6. History of kcqhrneb-dvyfckvp-wnfb-lactamase urinary tract infection. 7. R foot gangrene with open wound==> cx + E coli ESBL==> treated PLAN: Patient remains stable. Started on Zyvox, continue present care, f/u vascular rec-s [facility] staff Problems: JACQUES HUERTA NP Feb 06, 2017 22:03
--- NOTE | 2017-02-06 22:27 | PN ---
Date/Time of Note Date/Time of Note DATE: 02/06/17 TIME: 22:25 Assessment/Plan Lines/Catheters IV Catheter Type (from [facility]): PICC Line Urinary Cath still in place: No Assessment/Plan Assessment/Plan - Acute encephalopathy, resolved. CT brain is negative for any acute pathology. 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 S/p left AKA 01/[address] Valencia, vascular surgery. - Diabetes mellitus type II. Continue Lantus and NovoLog. - History of kidney transplant in 2009, on immunosuppressive therapy. - Hypertension. Continue metoprolol, benazepril. 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 - Anemia of chronic kidney disease. Further recommendations based on clinical course. Plan of care discussed with Dr. Cohen Exam/Review of Systems Vital Signs Vitals Vital Signs Date Time Temp Pulse Resp B/P Pulse Ox O2 Delivery O2 Flow Rate FiO2 02/06/17 20:13 98.3 71 19 156/68 98 Intake and Output 02/05/17 02/05/17 02/06/17 15:00 23:00 07:00 Intake Total 680 ml 840 ml 1400 ml Balance 680 ml 840 ml 1400 ml Results Result Diagram: 02/06/17 0445 02/06/17 0445 Results 24 hrs Laboratory Tests Test 02/06/17 04:45 02/06/17 07:43 02/06/17 11:51 02/06/17 16:59 White Blood Count 4.1 L Red Blood Count 3.31 L Hemoglobin 9.0 L Hematocrit 29.1 L Mean Corpuscular Volume 87.9 Mean Corpuscular Hemoglobin 27.2 L Mean Corpuscular Hemoglobin Concent 30.9 L Red Cell Distribution Width 15.4 H Platelet Count 211 # Mean Platelet Volume 11.0 H Neutrophils % 60.6 Lymphocytes % 21.1 Monocytes % 14.7 H Eosinophils % 2.9 Basophils % 0.5 Nucleated Red Blood Cells % 0.0 Neutrophils # 2.5 Lymphocytes # 0.9 Monocytes # 0.6 Eosinophils # 0.1 Basophils # 0.0 Nucleated Red Blood Cells # 0.0 Sodium Level 138 Potassium Level 4.2 Chloride Level 109 Carbon Dioxide Level 24 Anion Gap 9 Blood Urea Nitrogen 13 Creatinine 0.57 Glucose Level 79 Calcium Level 9.1 Bedside Glucose 82 112 117 Test 02/06/17 20:16 Bedside Glucose 106 Medications Medications Current Medications Aspirin (Halfprin) 81 mg DAILY PO Last administered on 02/06/17 09:13; Admin Dose 81 MG; Start 12/27/16 at 09:00 Clopidogrel Bisulfate (plaVIX) 75 mg DAILY PO Last administered on 02/06/17 09:13; Admin Dose 75 MG; Start 12/27/16 at 09:00 Famotidine (Pepcid) 40 mg HS PO Last administered on 02/06/17 20:17; Admin Dose 40 MG; Start 12/26/16 at 21:00 Folic Acid (Folic Acid) 1 mg DAILY PO Last administered on 02/06/17 09:13; Admin Dose 1 MG; Start 12/27/16 at 09:00 Gabapentin (Neurontin) 100 mg TID PO Last administered on 02/06/17 20:17; Admin Dose 100 MG; Start 12/26/16 at 21:00 Mycophenolate Mofetil (Cellcept) 1,000 mg BID PO Last administered on 20:17; Admin Dose 1,000 MG; Start 12/26/16 at 21:00 Pantoprazole (Protonix Tab) 40 mg DAILY@06 PO Last administered on 02/06/17 05:17; Admin Dose 40 MG; Start 12/27/16 at 06:00 Diagnostic Test (Pha) (Accu-Chek) 1 ea 02 XX ; Start 12/27/16 at 02:00 Miscellaneous Information 1 ea NOTE XX ; Start 12/26/16 at 14:30 Glucose (Glutose) 15 gm Q15M PRN PO DECREASED GLUCOSE; Start 12/26/16 at 14:30 Glucose (Glutose) 22.5 gm Q15M PRN PO DECREASED GLUCOSE; Start 12/26/16 at 14:30 Dextrose (D50w Syringe) 25 ml Q15M PRN IV DECREASED GLUCOSE; Start 12/26/16 at 14:30 Dextrose (D50w Syringe) 50 ml Q15M PRN IV DECREASED GLUCOSE; Start 12/26/16 at 14:30 Glucagon (Glucagen) 1 mg Q15M PRN IM DECREASED GLUCOSE; Start 12/26/16 at 14:30 Glucose (Glutose) 15 gm Q15M PRN BUCCAL DECREASED GLUCOSE; Start 12/26/16 at 14: 30 Cholecalciferol (Vitamin D) 1,000 unit DAILY PO Last administered on 09:13; Admin Dose 1,000 UNIT; Start 12/28/16 at 09:00 Ondansetron HCl (Zofran Inj) 4 mg Q6H PRN IV NAUSEA AND/OR VOMITING Last administered on 01/15/17 09:50; Admin Dose 4 MG; Start 01/01/17 at 10:00 Haloperidol (Haldol) 2 mg Q4H PRN IM AGITATION/ANXIETY Last administered on 22:46; Admin Dose 2 MG; Start 01/08/17 at 01:30 Acetaminophen (Tylenol Tab) 650 mg Q6H PRN PO PAIN AND OR ELEVATED TEMP Last administered on 01/16/17 10:25; Admin Dose 650 MG; Start 01/08/17 at 22:30 Quetiapine Fumarate (Seroquel) 25 mg QHS PRN PO agitation/hallucinations Last administered on 01/09/17 22:15; Admin Dose 25 MG; Start 01/09/17 at 21:00 Morphine Sulfate (morphine) 2 mg Q8H PRN IV PAIN LEVEL 6-10 Last administered on 01/19/17 16:02; Admin Dose 2 MG; Start 01/11/17 at 14:00 Clonidine (Catapres) 0.1 mg Q6H PRN PO hypertension Last administered on 02:41; Admin Dose 0.1 MG; Start 01/14/17 at 02:30 Hydralazine HCl (Apresoline) 25 mg Q6H PRN IV ELEVATED SYSTOLIC BP Last administered on 01/14/17 07:04; Admin Dose 25 MG; Start 01/14/17 at 07:00 Insulin Glargine (Lantus) 5 unit DAILY@20 SC Last administered on 02/06/17 20 :20; Admin Dose 5 UNIT; Start 01/17/17 at 20:00 Tacrolimus (Prograf) 2 mg Q12 PO Last administered on 02/06/17 20:17; Admin Dose 2 MG; Start 01/18/17 at 09:00 IV Flush (NS 10 ml) 10 ml PRN PRN IV IV PROTOCOL Last administered on 11:54; Admin Dose 10 ML; Start 01/19/17 at 12:30 Acetaminophen/ Hydrocodone Bitart ([place] (5/325)) 1 tab Q8H PRN PO PAIN Last administered on 02/06/17 05:17; Admin Dose 1 TAB; Start 01/19/17 at 14:30 Metoprolol Tartrate (Lopressor) 50 mg BID PO Last administered on 02/06/17 20 :18; Admin Dose 50 MG; Start 01/23/17 at 21:00 Benazepril HCl 10 mg 10 mg BID PO Last administered on 02/06/17 20:18; Admin Dose 10 MG; Start 01/31/17 at 21:00 Sodium Chloride (NS) 1,000 ml @ 80 mls/hr [id number] IV Last administered on 20:18; Admin Dose 80 MLS/HR; Start 02/03/17 at 10:30 Linezolid (Zyvox) 600 mg BID PO Last administered on 02/06/17 20:17; Admin Dose 600 MG; Start 02/06/17 at 11:00 TIM BENNETT Feb 06, 2017 22:27
[2017-02-07] MEDS: ACCU-CHEK XX SCH (02:00)
[2017-02-07 03:07] VITALS: BP 129/65; RESP 18
[2017-02-07] MEDS: PANTOPRAZOLE (EC) 40 MG TAB PO SCH (05:03)
[2017-02-07 06:11] LABS: BASOPHILS % 0.3 % (0.0-2.0); EOSINOPHILS # 0.1 10^3/ul (0.0-0.5); EOSINOPHILS % 3.6 % (0.0-7.0); HEMATOCRIT 28.6 % (37.0-47.0); HEMOGLOBIN 8.9 g/dl (12.0-16.0); LYMPHOCYTES % 26.7 % (15.0-51.0); MEAN CORPUSCULAR HEMOGLOBIN 27.1 pg (29.0-33.0); MEAN CORPUSCULAR HGB CONC 31.1 g/dl (32.0-37.0); MEAN CORPUSCULAR VOLUME 87.2 fl (82.0-101.0); MEAN PLATELET VOLUME 11.9 fl (7.4-10.4); MONOCYTE # 0.5 10^3/ul (0.3-0.9); MONOCYTES % 13.1 % (0.0-11.0); PLATELET COUNT 200 10^3/UL (140-415); RED BLOOD COUNT 3.28 10^6/ul (4.20-5.40); RED CELL DISTRIBUTION WIDTH 15.4 % (11.5-14.5); WHITE BLOOD COUNT 3.6 10^3/ul (4.8-10.8)
[2017-02-07 06:53] LABS: CREATININE 0.59 mg/dl (0.44-1.00); POTASSIUM 3.9 mmol/L (3.5-5.1)
[2017-02-07] MEDS: INSULIN ASPART [NOVOLOG] 3 ML PEN SC SCH ×4 (08:00→20:21)
[2017-02-07 08:01] VITALS: BP 128/60; RESP 17
[2017-02-07] MEDS: CLOPIDOGREL 75 MG TAB PO SCH (08:32)
[2017-02-07] MEDS: CHOLECALCIFEROL 1,000 UNIT TAB PO SCH (08:32)
[2017-02-07] MEDS: TACROLIMUS 1 MG CAP PO SCH ×2 (08:32→20:21)
[2017-02-07] MEDS: ASPIRIN (EC) 81 MG TAB PO SCH (08:32)
[2017-02-07] MEDS: GABAPENTIN 100 MG CAP PO SCH ×3 (08:32→20:21)
[2017-02-07] MEDS: ZYVOX 600 MG TAB PO SCH ×2 (08:32→20:21)
[2017-02-07] MEDS: FOLIC ACID 1 MG TAB PO SCH (08:33)
[2017-02-07] MEDS: BENAZEPRIL 10 MG TAB PO SCH ×2 (08:33→20:23)
[2017-02-07] MEDS: MYCOPHENOLATE 250 MG CAP PO SCH ×2 (08:33→20:21)
[2017-02-07] MEDS: METOPROLOL 50 MG TAB PO SCH ×2 (08:33→20:23)
[2017-02-07] MEDS: SOD CHLORIDE 0.9% 1,000 ML IV SCH (12:19)
--- NOTE | 2017-02-07 13:07 | CONS ---
Date/Time of Note Date/Time of Note DATE: 02/07/17 TIME: 13:06 Consult Date/Type/Reason Admit Date/Time Dec 26, 2016 at 13:22 Initial Consult Date 12/27/16 Type of Consultation: ID Ordering Provider: LES GILLILAND Objective Vital Signs Date Time Temp Pulse Resp B/P Pulse Ox O2 Delivery O2 Flow Rate FiO2 02/07/17 08:01 97.9 60 17 128/60 100 Intake and Output 02/06/17 02/06/17 02/07/17 15:00 23:00 07:00 Intake Total 2680 ml 1380 ml Balance 2680 ml 1380 ml Results/Medications Result Diagram: 02/07/17 0422 02/07/17 0450 Results 24 hrs Laboratory Tests Test 02/06/17 16:59 02/06/17 20:16 02/07/17 04:22 02/07/17 04:50 Bedside Glucose 117 106 White Blood Count 3.6 L Red Blood Count 3.28 L Hemoglobin 8.9 L Hematocrit 28.6 L Mean Corpuscular Volume 87.2 Mean Corpuscular Hemoglobin 27.1 L Mean Corpuscular Hemoglobin Concent 31.1 L Red Cell Distribution Width 15.4 H Platelet Count 200 Mean Platelet Volume 11.9 H Neutrophils % 56.0 Lymphocytes % 26.7 Monocytes % 13.1 H Eosinophils % 3.6 Basophils % 0.3 Nucleated Red Blood Cells % 0.0 Neutrophils # 2.0 Lymphocytes # 1.0 Monocytes # 0.5 Eosinophils # 0.1 Basophils # 0.0 Nucleated Red Blood Cells # 0.0 Sodium Level 138 Potassium Level 3.9 Chloride Level 108 Carbon Dioxide Level 24 Anion Gap 10 Blood Urea Nitrogen 12 Creatinine 0.59 Glucose Level 71 Calcium Level 9.0 Test 02/07/17 08:08 02/07/17 12:17 Bedside Glucose 85 116 Medications Current Medications Aspirin (Halfprin) 81 mg DAILY PO Last administered on 02/07/17 08:32; Admin Dose 81 MG; Start 12/27/16 at 09:00 Clopidogrel Bisulfate (plaVIX) 75 mg DAILY PO Last administered on 02/07/17 08:32; Admin Dose 75 MG; Start 12/27/16 at 09:00 Famotidine (Pepcid) 40 mg HS PO Last administered on 02/06/17 20:17; Admin Dose 40 MG; Start 12/26/16 at 21:00 Folic Acid (Folic Acid) 1 mg DAILY PO Last administered on 02/07/17 08:33; Admin Dose 1 MG; Start 12/27/16 at 09:00 Gabapentin (Neurontin) 100 mg TID PO Last administered on 02/07/17 12:19; Admin Dose 100 MG; Start 12/26/16 at 21:00 Mycophenolate Mofetil (Cellcept) 1,000 mg BID PO Last administered on 08:33; Admin Dose 1,000 MG; Start 12/26/16 at 21:00 Pantoprazole (Protonix Tab) 40 mg DAILY@06 PO Last administered on 02/07/17 05:03; Admin Dose 40 MG; Start 12/27/16 at 06:00 Diagnostic Test (Pha) (Accu-Chek) 1 ea 02 XX ; Start 12/27/16 at 02:00 Miscellaneous Information 1 ea NOTE XX ; Start 12/26/16 at 14:30 Glucose (Glutose) 15 gm Q15M PRN PO DECREASED GLUCOSE; Start 12/26/16 at 14:30 Glucose (Glutose) 22.5 gm Q15M PRN PO DECREASED GLUCOSE; Start 12/26/16 at 14:30 Dextrose (D50w Syringe) 25 ml Q15M PRN IV DECREASED GLUCOSE; Start 12/26/16 at 14:30 Dextrose (D50w Syringe) 50 ml Q15M PRN IV DECREASED GLUCOSE; Start 12/26/16 at 14:30 Glucagon (Glucagen) 1 mg Q15M PRN IM DECREASED GLUCOSE; Start 12/26/16 at 14:30 Glucose (Glutose) 15 gm Q15M PRN BUCCAL DECREASED GLUCOSE; Start 12/26/16 at 14: 30 Cholecalciferol (Vitamin D) 1,000 unit DAILY PO Last administered on 08:32; Admin Dose 1,000 UNIT; Start 12/28/16 at 09:00 Ondansetron HCl (Zofran Inj) 4 mg Q6H PRN IV NAUSEA AND/OR VOMITING Last administered on 01/15/17 09:50; Admin Dose 4 MG; Start 01/01/17 at 10:00 Haloperidol (Haldol) 2 mg Q4H PRN IM AGITATION/ANXIETY Last administered on 22:46; Admin Dose 2 MG; Start 01/08/17 at 01:30 Acetaminophen (Tylenol Tab) 650 mg Q6H PRN PO PAIN AND OR ELEVATED TEMP Last administered on 01/16/17 10:25; Admin Dose 650 MG; Start 01/08/17 at 22:30 Quetiapine Fumarate (Seroquel) 25 mg QHS PRN PO agitation/hallucinations Last administered on 01/09/17 22:15; Admin Dose 25 MG; Start 01/09/17 at 21:00 Morphine Sulfate (morphine) 2 mg Q8H PRN IV PAIN LEVEL 6-10 Last administered on 01/19/17 16:02; Admin Dose 2 MG; Start 01/11/17 at 14:00 Clonidine (Catapres) 0.1 mg Q6H PRN PO hypertension Last administered on 02:41; Admin Dose 0.1 MG; Start 01/14/17 at 02:30 Hydralazine HCl (Apresoline) 25 mg Q6H PRN IV ELEVATED SYSTOLIC BP Last administered on 01/14/17 07:04; Admin Dose 25 MG; Start 01/14/17 at 07:00 Insulin Glargine (Lantus) 5 unit DAILY@20 SC Last administered on 02/06/17 20 :20; Admin Dose 5 UNIT; Start 01/17/17 at 20:00 Tacrolimus (Prograf) 2 mg Q12 PO Last administered on 02/07/17 08:32; Admin Dose 2 MG; Start 01/18/17 at 09:00 IV Flush (NS 10 ml) 10 ml PRN PRN IV IV PROTOCOL Last administered on 11:54; Admin Dose 10 ML; Start 01/19/17 at 12:30 Acetaminophen/ Hydrocodone Bitart ([place] (5/325)) 1 tab Q8H PRN PO PAIN Last administered on 02/06/17 22:30; Admin Dose 1 TAB; Start 01/19/17 at 14:30 Metoprolol Tartrate (Lopressor) 50 mg BID PO Last administered on 02/07/17 08 :33; Admin Dose 50 MG; Start 01/23/17 at 21:00 Benazepril HCl 10 mg 10 mg BID PO Last administered on 02/07/17 08:33; Admin Dose 10 MG; Start 01/31/17 at 21:00 Sodium Chloride (NS) 1,000 ml @ 80 mls/hr [id number] IV Last administered on 12:19; Admin Dose 80 MLS/HR; Start 02/03/17 at 10:30 Linezolid (Zyvox) 600 mg BID PO Last administered on 02/07/17 08:32; Admin Dose 600 MG; Start 02/06/17 at 11:00 Assessment/Plan Chief Complaint/Hosp Course SUBJECTIVE DATA: No acute events. Patient is alert, looks comfortable. No fevers. ANTIMICROBIALS: Zyvox OBJECTIVE DATA: GENERAL: Chronically ill-appearing, elderly woman, who is awake, in no distress. HEENT: Head atraumatic, normocephalic. Sclerae anicteric. Buccal mucosa dry. NECK: Supple. CHEST: Rise symmetrical. Breath sounds diminished at the bases. HEART: S1, S2. ABDOMEN: Soft, bowel sounds present. EXTREMITIES: With left stump dsg intact. The right foot dry necrotic wound ASSESSMENT: 1. 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 2. Severe peripheral arterial disease, failed multiple revascularization procedures. 3. History of kidney transplant, remains on immunosuppressive therapy. 4. Resolved diarrhea, on empiric oral vancomycin. 5. Diabetes. 6. History of ndqeogja-mbodnild-kant-lactamase urinary tract infection. 7. R foot gangrene with open wound==> cx + E coli ESBL==> treated PLAN: Patient remains stable. Started on Zyvox, continue present care, PT, f/u vascular rec-s [facility] staff Problems: JACQUES HUERTA NP Feb 07, 2017 13:07
[2017-02-07 14:15] VITALS: BP 137/66; RESP 18
--- NOTE | 2017-02-07 14:30 | CONS ---
Date/Time of Note Date/Time of Note DATE: 02/07/17 TIME: 14:28 Assessment/Plan Assessment/Plan Chief Complaint/Hosp Course IMP: 1.[id number] test 10/2016 with no ischemia/only scar/NL EF. Negative trop x 3. 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 Encephalopathy 7. Hyponatremia-ongoing Recc: -Continue asa/plavix -Continue benazepril/BB at current doses with well controlled BP currently -Local wound care -Continue abx's and f/u cx data -Continue immuonosuppresives -Follow volume status closely on IVF hydration Problems: Consultation Date/Type/Reason Admit Date/Time Dec 26, 2016 at 13:22 Initial Consult Date 12/27/16 Type of Consultation: cardiology Reason for Consultation HTN Referring Provider: LES GILLILAND Exam/Review of Systems Vital Signs Vitals Vital Signs Date Time Temp Pulse Resp B/P Pulse Ox O2 Delivery O2 Flow Rate FiO2 02/07/17 14:15 97.6 65 18 137/66 98 Intake and Output 02/06/17 02/06/17 02/07/17 15:00 23:00 07:00 Intake Total 2680 ml 1380 ml Balance 2680 ml 1380 ml Exam Review of Systems: CONSTITUTIONAL: No fevers, chills. PULMONARY: No sob CARDIOVASCULAR: No chest pain/palpitations GASTROINTESTINAL: No nausea/vomiting. GENITOURINARY: No hematuria/dysuria. MUSCULOSKELETAL: Mild pain in foot PSYCHIATRIC: The patient denies depression. NEUROLOGIC: No weakness Constitutional: alert Psych: no complaints Eyes: nl conjunctiva ENMT: mucosa pink and moist Neck: jvd (8 cm water), supple Respiratory: clear to auscultation Cardiovascular: regular rate and rhythm Gastrointestinal: non-tender, soft Musculoskeletal: muscle weakness (mild generalized) Extremities: other (s/p LE amputation) Neurological: other (No focal deficits) Results Result Diagram: 02/07/17 0422 02/07/17 0450 Results 24 hrs Laboratory Tests Test 02/06/17 16:59 02/06/17 20:16 02/07/17 04:22 02/07/17 04:50 Bedside Glucose 117 106 White Blood Count 3.6 L Red Blood Count 3.28 L Hemoglobin 8.9 L Hematocrit 28.6 L Mean Corpuscular Volume 87.2 Mean Corpuscular Hemoglobin 27.1 L Mean Corpuscular Hemoglobin Concent 31.1 L Red Cell Distribution Width 15.4 H Platelet Count 200 Mean Platelet Volume 11.9 H Neutrophils % 56.0 Lymphocytes % 26.7 Monocytes % 13.1 H Eosinophils % 3.6 Basophils % 0.3 Nucleated Red Blood Cells % 0.0 Neutrophils # 2.0 Lymphocytes # 1.0 Monocytes # 0.5 Eosinophils # 0.1 Basophils # 0.0 Nucleated Red Blood Cells # 0.0 Sodium Level 138 Potassium Level 3.9 Chloride Level 108 Carbon Dioxide Level 24 Anion Gap 10 Blood Urea Nitrogen 12 Creatinine 0.59 Glucose Level 71 Calcium Level 9.0 Test 02/07/17 08:08 02/07/17 12:17 Bedside Glucose 85 116 Medications Medications Current Medications Aspirin (Halfprin) 81 mg DAILY PO Last administered on 02/07/17 08:32; Admin Dose 81 MG; Start 12/27/16 at 09:00 Clopidogrel Bisulfate (plaVIX) 75 mg DAILY PO Last administered on 02/07/17 08:32; Admin Dose 75 MG; Start 12/27/16 at 09:00 Famotidine (Pepcid) 40 mg HS PO Last administered on 02/06/17 20:17; Admin Dose 40 MG; Start 12/26/16 at 21:00 Folic Acid (Folic Acid) 1 mg DAILY PO Last administered on 02/07/17 08:33; Admin Dose 1 MG; Start 12/27/16 at 09:00 Gabapentin (Neurontin) 100 mg TID PO Last administered on 02/07/17 12:19; Admin Dose 100 MG; Start 12/26/16 at 21:00 Mycophenolate Mofetil (Cellcept) 1,000 mg BID PO Last administered on 08:33; Admin Dose 1,000 MG; Start 12/26/16 at 21:00 Pantoprazole (Protonix Tab) 40 mg DAILY@06 PO Last administered on 02/07/17 05:03; Admin Dose 40 MG; Start 12/27/16 at 06:00 Diagnostic Test (Pha) (Accu-Chek) 1 ea 02 XX ; Start 12/27/16 at 02:00 Miscellaneous Information 1 ea NOTE XX ; Start 12/26/16 at 14:30 Glucose (Glutose) 15 gm Q15M PRN PO DECREASED GLUCOSE; Start 12/26/16 at 14:30 Glucose (Glutose) 22.5 gm Q15M PRN PO DECREASED GLUCOSE; Start 12/26/16 at 14:30 Dextrose (D50w Syringe) 25 ml Q15M PRN IV DECREASED GLUCOSE; Start 12/26/16 at 14:30 Dextrose (D50w Syringe) 50 ml Q15M PRN IV DECREASED GLUCOSE; Start 12/26/16 at 14:30 Glucagon (Glucagen) 1 mg Q15M PRN IM DECREASED GLUCOSE; Start 12/26/16 at 14:30 Glucose (Glutose) 15 gm Q15M PRN BUCCAL DECREASED GLUCOSE; Start 12/26/16 at 14: 30 Cholecalciferol (Vitamin D) 1,000 unit DAILY PO Last administered on 08:32; Admin Dose 1,000 UNIT; Start 12/28/16 at 09:00 Ondansetron HCl (Zofran Inj) 4 mg Q6H PRN IV NAUSEA AND/OR VOMITING Last administered on 01/15/17 09:50; Admin Dose 4 MG; Start 01/01/17 at 10:00 Haloperidol (Haldol) 2 mg Q4H PRN IM AGITATION/ANXIETY Last administered on 22:46; Admin Dose 2 MG; Start 01/08/17 at 01:30 Acetaminophen (Tylenol Tab) 650 mg Q6H PRN PO PAIN AND OR ELEVATED TEMP Last administered on 01/16/17 10:25; Admin Dose 650 MG; Start 01/08/17 at 22:30 Quetiapine Fumarate (Seroquel) 25 mg QHS PRN PO agitation/hallucinations Last administered on 01/09/17 22:15; Admin Dose 25 MG; Start 01/09/17 at 21:00 Morphine Sulfate (morphine) 2 mg Q8H PRN IV PAIN LEVEL 6-10 Last administered on 01/19/17 16:02; Admin Dose 2 MG; Start 01/11/17 at 14:00 Clonidine (Catapres) 0.1 mg Q6H PRN PO hypertension Last administered on 02:41; Admin Dose 0.1 MG; Start 01/14/17 at 02:30 Hydralazine HCl (Apresoline) 25 mg Q6H PRN IV ELEVATED SYSTOLIC BP Last administered on 01/14/17 07:04; Admin Dose 25 MG; Start 01/14/17 at 07:00 Insulin Glargine (Lantus) 5 unit DAILY@20 SC Last administered on 02/06/17 20 :20; Admin Dose 5 UNIT; Start 01/17/17 at 20:00 Tacrolimus (Prograf) 2 mg Q12 PO Last administered on 02/07/17 08:32; Admin Dose 2 MG; Start 01/18/17 at 09:00 IV Flush (NS 10 ml) 10 ml PRN PRN IV IV PROTOCOL Last administered on 11:54; Admin Dose 10 ML; Start 01/19/17 at 12:30 Acetaminophen/ Hydrocodone Bitart ([place] (5/325)) 1 tab Q8H PRN PO PAIN Last administered on 02/06/17 22:30; Admin Dose 1 TAB; Start 01/19/17 at 14:30 Metoprolol Tartrate (Lopressor) 50 mg BID PO Last administered on 02/07/17 08 :33; Admin Dose 50 MG; Start 01/23/17 at 21:00 Benazepril HCl 10 mg 10 mg BID PO Last administered on 02/07/17 08:33; Admin Dose 10 MG; Start 01/31/17 at 21:00 Sodium Chloride (NS) 1,000 ml @ 80 mls/hr [id number] IV Last administered on 12:19; Admin Dose 80 MLS/HR; Start 02/03/17 at 10:30 Linezolid (Zyvox) 600 mg BID PO Last administered on 02/07/17 08:32; Admin Dose 600 MG; Start 02/06/17 at 11:00 TIMOTHY CORTES Feb 07, 2017 14:30
--- NOTE | 2017-02-07 18:41 | CONS ---
Date/Time of Note Date/Time of Note DATE: 02/07/17 TIME: 18:40 Assessment/Plan Assessment/Plan Additional Assessment/Plan 1. 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 h/o donor kidney transplant in 2009 at [facility], currently on immunosuppression with Prograf, CellCept 4. 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 History of hypertension. 6. History of diabetes mellitus. 7. History of previous left upper extremity arteriovenous fistula. 8. Hyponatremia due to hypovolemic hyponatremia post op 9. -CT chest+ abd+pelvis with and without contrast negative for mass/LAD/ Malignancy Plan: continue Current immunosuppression Prograf and cellcept, Cr 0.68,Electrolytes and Na normal today, d/c IV fluids s/p Left AKA, off IV abx now, continue lotensin for now ID following will continue to follow up on patient Consultation Date/Type/Reason Admit Date/Time Dec 26, 2016 at 13:22 Initial Consult Date 12/27/16 Type of Consultation: NEPHROLOGY Referring Provider: LES GILLILAND Exam/Review of Systems Vital Signs Vitals Vital Signs Date Time Temp Pulse Resp B/P Pulse Ox O2 Delivery O2 Flow Rate FiO2 02/07/17 14:15 97.6 65 18 137/66 98 Intake and Output 02/06/17 02/06/17 02/07/17 15:00 23:00 07:00 Intake Total 2680 ml 1380 ml Balance 2680 ml 1380 ml Results Result Diagram: 02/07/17 0422 02/07/17 0450 Results 24 hrs Laboratory Tests Test 02/06/17 20:16 02/07/17 04:22 02/07/17 04:50 02/07/17 08:08 Bedside Glucose 106 85 White Blood Count 3.6 L Red Blood Count 3.28 L Hemoglobin 8.9 L Hematocrit 28.6 L Mean Corpuscular Volume 87.2 Mean Corpuscular Hemoglobin 27.1 L Mean Corpuscular Hemoglobin Concent 31.1 L Red Cell Distribution Width 15.4 H Platelet Count 200 Mean Platelet Volume 11.9 H Neutrophils % 56.0 Lymphocytes % 26.7 Monocytes % 13.1 H Eosinophils % 3.6 Basophils % 0.3 Nucleated Red Blood Cells % 0.0 Neutrophils # 2.0 Lymphocytes # 1.0 Monocytes # 0.5 Eosinophils # 0.1 Basophils # 0.0 Nucleated Red Blood Cells # 0.0 Sodium Level 138 Potassium Level 3.9 Chloride Level 108 Carbon Dioxide Level 24 Anion Gap 10 Blood Urea Nitrogen 12 Creatinine 0.59 Glucose Level 71 Calcium Level 9.0 Test 02/07/17 12:17 02/07/17 17:48 Bedside Glucose 116 134 Medications Medications Current Medications Aspirin (Halfprin) 81 mg DAILY PO Last administered on 02/07/17 08:32; Admin Dose 81 MG; Start 12/27/16 at 09:00 Clopidogrel Bisulfate (plaVIX) 75 mg DAILY PO Last administered on 02/07/17 08:32; Admin Dose 75 MG; Start 12/27/16 at 09:00 Famotidine (Pepcid) 40 mg HS PO Last administered on 02/06/17 20:17; Admin Dose 40 MG; Start 12/26/16 at 21:00 Folic Acid (Folic Acid) 1 mg DAILY PO Last administered on 02/07/17 08:33; Admin Dose 1 MG; Start 12/27/16 at 09:00 Gabapentin (Neurontin) 100 mg TID PO Last administered on 02/07/17 12:19; Admin Dose 100 MG; Start 12/26/16 at 21:00 Mycophenolate Mofetil (Cellcept) 1,000 mg BID PO Last administered on 08:33; Admin Dose 1,000 MG; Start 12/26/16 at 21:00 Pantoprazole (Protonix Tab) 40 mg DAILY@06 PO Last administered on 02/07/17 05:03; Admin Dose 40 MG; Start 12/27/16 at 06:00 Diagnostic Test (Pha) (Accu-Chek) 1 ea 02 XX ; Start 12/27/16 at 02:00 Miscellaneous Information 1 ea NOTE XX ; Start 12/26/16 at 14:30 Glucose (Glutose) 15 gm Q15M PRN PO DECREASED GLUCOSE; Start 12/26/16 at 14:30 Glucose (Glutose) 22.5 gm Q15M PRN PO DECREASED GLUCOSE; Start 12/26/16 at 14:30 Dextrose (D50w Syringe) 25 ml Q15M PRN IV DECREASED GLUCOSE; Start 12/26/16 at 14:30 Dextrose (D50w Syringe) 50 ml Q15M PRN IV DECREASED GLUCOSE; Start 12/26/16 at 14:30 Glucagon (Glucagen) 1 mg Q15M PRN IM DECREASED GLUCOSE; Start 12/26/16 at 14:30 Glucose (Glutose) 15 gm Q15M PRN BUCCAL DECREASED GLUCOSE; Start 12/26/16 at 14: 30 Cholecalciferol (Vitamin D) 1,000 unit DAILY PO Last administered on 08:32; Admin Dose 1,000 UNIT; Start 12/28/16 at 09:00 Ondansetron HCl (Zofran Inj) 4 mg Q6H PRN IV NAUSEA AND/OR VOMITING Last administered on 01/15/17 09:50; Admin Dose 4 MG; Start 01/01/17 at 10:00 Haloperidol (Haldol) 2 mg Q4H PRN IM AGITATION/ANXIETY Last administered on 22:46; Admin Dose 2 MG; Start 01/08/17 at 01:30 Acetaminophen (Tylenol Tab) 650 mg Q6H PRN PO PAIN AND OR ELEVATED TEMP Last administered on 01/16/17 10:25; Admin Dose 650 MG; Start 01/08/17 at 22:30 Quetiapine Fumarate (Seroquel) 25 mg QHS PRN PO agitation/hallucinations Last administered on 01/09/17 22:15; Admin Dose 25 MG; Start 01/09/17 at 21:00 Morphine Sulfate (morphine) 2 mg Q8H PRN IV PAIN LEVEL 6-10 Last administered on 01/19/17 16:02; Admin Dose 2 MG; Start 01/11/17 at 14:00 Clonidine (Catapres) 0.1 mg Q6H PRN PO hypertension Last administered on 02:41; Admin Dose 0.1 MG; Start 01/14/17 at 02:30 Hydralazine HCl (Apresoline) 25 mg Q6H PRN IV ELEVATED SYSTOLIC BP Last administered on 01/14/17 07:04; Admin Dose 25 MG; Start 01/14/17 at 07:00 Insulin Glargine (Lantus) 5 unit DAILY@20 SC Last administered on 02/06/17 20 :20; Admin Dose 5 UNIT; Start 01/17/17 at 20:00 Tacrolimus (Prograf) 2 mg Q12 PO Last administered on 02/07/17 08:32; Admin Dose 2 MG; Start 01/18/17 at 09:00 IV Flush (NS 10 ml) 10 ml PRN PRN IV IV PROTOCOL Last administered on 11:54; Admin Dose 10 ML; Start 01/19/17 at 12:30 Acetaminophen/ Hydrocodone Bitart ([place] (5/325)) 1 tab Q8H PRN PO PAIN Last administered on 02/06/17 22:30; Admin Dose 1 TAB; Start 01/19/17 at 14:30 Metoprolol Tartrate (Lopressor) 50 mg BID PO Last administered on 02/07/17 08 :33; Admin Dose 50 MG; Start 01/23/17 at 21:00 Benazepril HCl 10 mg 10 mg BID PO Last administered on 02/07/17 08:33; Admin Dose 10 MG; Start 01/31/17 at 21:00 Sodium Chloride (NS) 1,000 ml @ 80 mls/hr [id number] IV Last administered on 12:19; Admin Dose 80 MLS/HR; Start 02/03/17 at 10:30 Linezolid (Zyvox) 600 mg BID PO Last administered on 02/07/17 08:32; Admin Dose 600 MG; Start 02/06/17 at 11:00 RAMON KEMP MD Feb 07, 2017 18:41
[2017-02-07 20:00] VITALS: BP 134/65; RESP 18
--- NOTE | 2017-02-07 20:05 | PN ---
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 Assessment/Plan - Acute encephalopathy, resolved. CT brain is negative for any acute pathology. 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 S/p left AKA 01/[address] Valencia, vascular surgery. - Diabetes mellitus type II. Continue Lantus and NovoLog. - History of kidney transplant in 2009, on immunosuppressive therapy. - Hypertension. Continue metoprolol, benazepril. 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 - Anemia of chronic kidney disease. Further recommendations based on clinical course. Plan of care discussed with Dr. Cohen Problems: Exam/Review of Systems Vital Signs Vitals Vital Signs Date Time Temp Pulse Resp B/P Pulse Ox O2 Delivery O2 Flow Rate FiO2 02/07/17 14:15 97.6 65 18 137/66 98 Intake and Output 02/06/17 02/06/17 02/07/17 15:00 23:00 07:00 Intake Total 2680 ml 1380 ml Balance 2680 ml 1380 ml Exam Constitutional: awake, alert Neck: supple Respiratory: clear to auscultation Cardiovascular: nl pulses Gastrointestinal: non-tender, soft Extremities: other (S/p LAKA, necrotic tissue) Results Result Diagram: 02/07/17 0422 02/07/17 0450 Results 24 hrs Laboratory Tests Test 02/06/17 20:16 02/07/17 04:22 02/07/17 04:50 02/07/17 08:08 Bedside Glucose 106 85 White Blood Count 3.6 L Red Blood Count 3.28 L Hemoglobin 8.9 L Hematocrit 28.6 L Mean Corpuscular Volume 87.2 Mean Corpuscular Hemoglobin 27.1 L Mean Corpuscular Hemoglobin Concent 31.1 L Red Cell Distribution Width 15.4 H Platelet Count 200 Mean Platelet Volume 11.9 H Neutrophils % 56.0 Lymphocytes % 26.7 Monocytes % 13.1 H Eosinophils % 3.6 Basophils % 0.3 Nucleated Red Blood Cells % 0.0 Neutrophils # 2.0 Lymphocytes # 1.0 Monocytes # 0.5 Eosinophils # 0.1 Basophils # 0.0 Nucleated Red Blood Cells # 0.0 Sodium Level 138 Potassium Level 3.9 Chloride Level 108 Carbon Dioxide Level 24 Anion Gap 10 Blood Urea Nitrogen 12 Creatinine 0.59 Glucose Level 71 Calcium Level 9.0 Test 02/07/17 12:17 02/07/17 17:48 Bedside Glucose 116 134 Medications Medications Current Medications Aspirin (Halfprin) 81 mg DAILY PO Last administered on 02/07/17 08:32; Admin Dose 81 MG; Start 12/27/16 at 09:00 Clopidogrel Bisulfate (plaVIX) 75 mg DAILY PO Last administered on 02/07/17 08:32; Admin Dose 75 MG; Start 12/27/16 at 09:00 Famotidine (Pepcid) 40 mg HS PO Last administered on 02/06/17 20:17; Admin Dose 40 MG; Start 12/26/16 at 21:00 Folic Acid (Folic Acid) 1 mg DAILY PO Last administered on 02/07/17 08:33; Admin Dose 1 MG; Start 12/27/16 at 09:00 Gabapentin (Neurontin) 100 mg TID PO Last administered on 02/07/17 12:19; Admin Dose 100 MG; Start 12/26/16 at 21:00 Mycophenolate Mofetil (Cellcept) 1,000 mg BID PO Last administered on 08:33; Admin Dose 1,000 MG; Start 12/26/16 at 21:00 Pantoprazole (Protonix Tab) 40 mg DAILY@06 PO Last administered on 02/07/17 05:03; Admin Dose 40 MG; Start 12/27/16 at 06:00 Diagnostic Test (Pha) (Accu-Chek) 1 ea 02 XX ; Start 12/27/16 at 02:00 Miscellaneous Information 1 ea NOTE XX ; Start 12/26/16 at 14:30 Glucose (Glutose) 15 gm Q15M PRN PO DECREASED GLUCOSE; Start 12/26/16 at 14:30 Glucose (Glutose) 22.5 gm Q15M PRN PO DECREASED GLUCOSE; Start 12/26/16 at 14:30 Dextrose (D50w Syringe) 25 ml Q15M PRN IV DECREASED GLUCOSE; Start 12/26/16 at 14:30 Dextrose (D50w Syringe) 50 ml Q15M PRN IV DECREASED GLUCOSE; Start 12/26/16 at 14:30 Glucagon (Glucagen) 1 mg Q15M PRN IM DECREASED GLUCOSE; Start 12/26/16 at 14:30 Glucose (Glutose) 15 gm Q15M PRN BUCCAL DECREASED GLUCOSE; Start 12/26/16 at 14: 30 Cholecalciferol (Vitamin D) 1,000 unit DAILY PO Last administered on 08:32; Admin Dose 1,000 UNIT; Start 12/28/16 at 09:00 Ondansetron HCl (Zofran Inj) 4 mg Q6H PRN IV NAUSEA AND/OR VOMITING Last administered on 01/15/17 09:50; Admin Dose 4 MG; Start 01/01/17 at 10:00 Haloperidol (Haldol) 2 mg Q4H PRN IM AGITATION/ANXIETY Last administered on 22:46; Admin Dose 2 MG; Start 01/08/17 at 01:30 Acetaminophen (Tylenol Tab) 650 mg Q6H PRN PO PAIN AND OR ELEVATED TEMP Last administered on 01/16/17 10:25; Admin Dose 650 MG; Start 01/08/17 at 22:30 Quetiapine Fumarate (Seroquel) 25 mg QHS PRN PO agitation/hallucinations Last administered on 01/09/17 22:15; Admin Dose 25 MG; Start 01/09/17 at 21:00 Morphine Sulfate (morphine) 2 mg Q8H PRN IV PAIN LEVEL 6-10 Last administered on 01/19/17 16:02; Admin Dose 2 MG; Start 01/11/17 at 14:00 Clonidine (Catapres) 0.1 mg Q6H PRN PO hypertension Last administered on 02:41; Admin Dose 0.1 MG; Start 01/14/17 at 02:30 Hydralazine HCl (Apresoline) 25 mg Q6H PRN IV ELEVATED SYSTOLIC BP Last administered on 01/14/17 07:04; Admin Dose 25 MG; Start 01/14/17 at 07:00 Insulin Glargine (Lantus) 5 unit DAILY@20 SC Last administered on 02/06/17 20 :20; Admin Dose 5 UNIT; Start 01/17/17 at 20:00 Tacrolimus (Prograf) 2 mg Q12 PO Last administered on 02/07/17 08:32; Admin Dose 2 MG; Start 01/18/17 at 09:00 IV Flush (NS 10 ml) 10 ml PRN PRN IV IV PROTOCOL Last administered on 11:54; Admin Dose 10 ML; Start 01/19/17 at 12:30 Acetaminophen/ Hydrocodone Bitart ([place] (5/325)) 1 tab Q8H PRN PO PAIN Last administered on 02/06/17 22:30; Admin Dose 1 TAB; Start 01/19/17 at 14:30 Metoprolol Tartrate (Lopressor) 50 mg BID PO Last administered on 02/07/17 08 :33; Admin Dose 50 MG; Start 01/23/17 at 21:00 Benazepril HCl (Lotensin) 10 mg BID PO Last administered on 02/07/17 08:33; Admin Dose 10 MG; Start 01/31/17 at 21:00 Linezolid (Zyvox) 600 mg BID PO Last administered on 02/07/17 08:32; Admin Dose 600 MG; Start 02/06/17 at 11:00 LES GILLILAND Feb 07, 2017 20:05
[2017-02-07] MEDS: FAMOTIDINE 20 MG TAB PO SCH (20:21)
[2017-02-07] MEDS: INSULIN GLARGINE [LANtus] 3 ML PEN SC SCH (20:24)
[2017-02-08] MEDS: ACCU-CHEK XX SCH ×2 (01:34→20:57)
[2017-02-08 02:00] VITALS: BP 145/71; RESP 18
[2017-02-08] MEDS: PANTOPRAZOLE (EC) 40 MG TAB PO SCH (06:10)
[2017-02-08] MEDS: INSULIN ASPART [NOVOLOG] 3 ML PEN SC SCH ×4 (08:00→20:56)
[2017-02-08 08:09] VITALS: BP 124/60; RESP 18
[2017-02-08] MEDS: MYCOPHENOLATE 250 MG CAP PO SCH ×2 (08:24→20:54)
[2017-02-08] MEDS: CLOPIDOGREL 75 MG TAB PO SCH (08:24)
[2017-02-08] MEDS: CHOLECALCIFEROL 1,000 UNIT TAB PO SCH (08:24)
[2017-02-08] MEDS: FOLIC ACID 1 MG TAB PO SCH (08:24)
[2017-02-08] MEDS: ZYVOX 600 MG TAB PO SCH ×2 (08:24→20:55)
[2017-02-08] MEDS: GABAPENTIN 100 MG CAP PO SCH ×3 (08:24→20:54)
[2017-02-08] MEDS: TACROLIMUS 1 MG CAP PO SCH ×2 (08:25→20:55)
[2017-02-08] MEDS: BENAZEPRIL 10 MG TAB PO SCH ×2 (08:25→20:56)
[2017-02-08] MEDS: ASPIRIN (EC) 81 MG TAB PO SCH (08:25)
[2017-02-08] MEDS: METOPROLOL 50 MG TAB PO SCH ×2 (08:25→20:55)
[2017-02-08 14:27] VITALS: BP 110/60; RESP 18
[2017-02-08] MEDS: HYDROCODONE/APAP (5/325) TAB PO PRN (15:15)
--- NOTE | 2017-02-08 16:37 | CONS ---
Date/Time of Note Date/Time of Note DATE: 02/08/17 TIME: 16:36 Assessment/Plan Assessment/Plan Chief Complaint/Hosp Course IMP: 1.Flo-pf-fdtbwb test 10/2016 with no ischemia/only scar/NL EF. Negative trop x 3. 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 Encephalopathy 7. Hyponatremia-ongoing Recc: -Continue asa/plavix -Continue benazepril/BB at current doses with well controlled BP currently -Local wound care -Continue abx's and f/u cx data -Continue immuonosuppresives -Follow volume status closely on IVF hydration Problems: Consultation Date/Type/Reason Admit Date/Time Dec 26, 2016 at 13:22 Initial Consult Date 12/27/16 Type of Consultation: cardiology Reason for Consultation HTN Referring Provider: LES GILLILAND Exam/Review of Systems Vital Signs Vitals Vital Signs Date Time Temp Pulse Resp B/P Pulse Ox O2 Delivery O2 Flow Rate FiO2 02/08/17 14:27 97.5 65 18 110/60 100 Intake and Output 02/07/17 02/07/17 02/08/17 15:00 23:00 07:00 Intake Total 240 ml 480 ml 360 ml Balance 240 ml 480 ml 360 ml Exam Review of Systems: CONSTITUTIONAL: No fevers, chills. PULMONARY: No sob CARDIOVASCULAR: No chest pain/palpitations GASTROINTESTINAL: No nausea/vomiting. GENITOURINARY: No hematuria/dysuria. MUSCULOSKELETAL: No myagias/arthalgias. PSYCHIATRIC: The patient denies depression. NEUROLOGIC: No weakness Psych: no complaints Head: normocephalic ENMT: mucosa pink and moist Neck: jvd, supple Respiratory: diminished breath sounds Cardiovascular: regular rate and rhythm Gastrointestinal: non-tender, soft Musculoskeletal: muscle tone (normal) Extremities: edema (none) Neurological: other (No focal deficits) Results Result Diagram: 02/07/17 0422 02/07/17 0450 Results 24 hrs Laboratory Tests Test 02/07/17 17:48 02/07/17 20:20 02/08/17 08:21 02/08/17 12:03 Bedside Glucose 134 112 99 140 Medications Medications Current Medications Aspirin (Halfprin) 81 mg DAILY PO Last administered on 02/08/17 08:25; Admin Dose 81 MG; Start 12/27/16 at 09:00 Clopidogrel Bisulfate (plaVIX) 75 mg DAILY PO Last administered on 02/08/17 08:24; Admin Dose 75 MG; Start 12/27/16 at 09:00 Famotidine (Pepcid) 40 mg HS PO Last administered on 02/07/17 20:21; Admin Dose 40 MG; Start 12/26/16 at 21:00 Folic Acid (Folic Acid) 1 mg DAILY PO Last administered on 02/08/17 08:24; Admin Dose 1 MG; Start 12/27/16 at 09:00 Gabapentin (Neurontin) 100 mg TID PO Last administered on 02/08/17 12:10; Admin Dose 100 MG; Start 12/26/16 at 21:00 Mycophenolate Mofetil (Cellcept) 1,000 mg BID PO Last administered on 08:24; Admin Dose 1,000 MG; Start 12/26/16 at 21:00 Pantoprazole (Protonix Tab) 40 mg DAILY@06 PO Last administered on 02/08/17 06:10; Admin Dose 40 MG; Start 12/27/16 at 06:00 Diagnostic Test (Pha) (Accu-Chek) 1 ea 02 XX ; Start 12/27/16 at 02:00 Miscellaneous Information 1 ea NOTE XX ; Start 12/26/16 at 14:30 Glucose (Glutose) 15 gm Q15M PRN PO DECREASED GLUCOSE; Start 12/26/16 at 14:30 Glucose (Glutose) 22.5 gm Q15M PRN PO DECREASED GLUCOSE; Start 12/26/16 at 14:30 Dextrose (D50w Syringe) 25 ml Q15M PRN IV DECREASED GLUCOSE; Start 12/26/16 at 14:30 Dextrose (D50w Syringe) 50 ml Q15M PRN IV DECREASED GLUCOSE; Start 12/26/16 at 14:30 Glucagon (Glucagen) 1 mg Q15M PRN IM DECREASED GLUCOSE; Start 12/26/16 at 14:30 Glucose (Glutose) 15 gm Q15M PRN BUCCAL DECREASED GLUCOSE; Start 12/26/16 at 14: 30 Cholecalciferol (Vitamin D) 1,000 unit DAILY PO Last administered on 08:24; Admin Dose 1,000 UNIT; Start 12/28/16 at 09:00 Ondansetron HCl (Zofran Inj) 4 mg Q6H PRN IV NAUSEA AND/OR VOMITING Last administered on 01/15/17 09:50; Admin Dose 4 MG; Start 01/01/17 at 10:00 Haloperidol (Haldol) 2 mg Q4H PRN IM AGITATION/ANXIETY Last administered on 22:46; Admin Dose 2 MG; Start 01/08/17 at 01:30 Acetaminophen (Tylenol Tab) 650 mg Q6H PRN PO PAIN AND OR ELEVATED TEMP Last administered on 01/16/17 10:25; Admin Dose 650 MG; Start 01/08/17 at 22:30 Quetiapine Fumarate (Seroquel) 25 mg QHS PRN PO agitation/hallucinations Last administered on 01/09/17 22:15; Admin Dose 25 MG; Start 01/09/17 at 21:00 Morphine Sulfate (morphine) 2 mg Q8H PRN IV PAIN LEVEL 6-10 Last administered on 01/19/17 16:02; Admin Dose 2 MG; Start 01/11/17 at 14:00 Clonidine (Catapres) 0.1 mg Q6H PRN PO hypertension Last administered on 02:41; Admin Dose 0.1 MG; Start 01/14/17 at 02:30 Hydralazine HCl (Apresoline) 25 mg Q6H PRN IV ELEVATED SYSTOLIC BP Last administered on 01/14/17 07:04; Admin Dose 25 MG; Start 01/14/17 at 07:00 Insulin Glargine (Lantus) 5 unit DAILY@20 SC Last administered on 02/07/17 20 :24; Admin Dose 5 UNIT; Start 01/17/17 at 20:00 Tacrolimus (Prograf) 2 mg Q12 PO Last administered on 02/08/17 08:25; Admin Dose 2 MG; Start 01/18/17 at 09:00 IV Flush (NS 10 ml) 10 ml PRN PRN IV IV PROTOCOL Last administered on 11:54; Admin Dose 10 ML; Start 01/19/17 at 12:30 Acetaminophen/ Hydrocodone Bitart ([place] (5/325)) 1 tab Q8H PRN PO PAIN Last administered on 02/08/17 15:15; Admin Dose 1 TAB; Start 01/19/17 at 14:30 Metoprolol Tartrate (Lopressor) 50 mg BID PO Last administered on 02/08/17 08 :25; Admin Dose 50 MG; Start 01/23/17 at 21:00 Benazepril HCl (Lotensin) 10 mg BID PO Last administered on 02/08/17 08:25; Admin Dose 10 MG; Start 01/31/17 at 21:00 Linezolid (Zyvox) 600 mg BID PO Last administered on 02/08/17 08:24; Admin Dose 600 MG; Start 02/06/17 at 11:00 TIMOTHY CORTES Feb 08, 2017 16:37
--- NOTE | 2017-02-08 17:52 | CONS ---
Date/Time of Note Date/Time of Note DATE: 02/08/17 TIME: 17:52 Assessment/Plan Assessment/Plan Additional Assessment/Plan 1. 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 h/o donor kidney transplant in 2009 at [facility], currently on immunosuppression with Prograf, CellCept 4. 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 History of hypertension. 6. History of diabetes mellitus. 7. History of previous left upper extremity arteriovenous fistula. 8. Hyponatremia due to hypovolemic hyponatremia post op 9. -CT chest+ abd+pelvis with and without contrast negative for mass/LAD/ Malignancy Plan: continue Current immunosuppression Prograf and cellcept, Cr 0.68,Electrolytes and Na normal today, d/c IV fluids s/p Left AKA, off IV abx now, continue lotensin for now ID following will continue to follow up on patient Consultation Date/Type/Reason Admit Date/Time Dec 26, 2016 at 13:22 Initial Consult Date 12/27/16 Type of Consultation: NEPHROLOGY Referring Provider: LES GILLILAND 24 HR Interval Summary Free Text/Dictation stable, no complaints Exam/Review of Systems Vital Signs Vitals Vital Signs Date Time Temp Pulse Resp B/P Pulse Ox O2 Delivery O2 Flow Rate FiO2 02/08/17 14:27 97.5 65 18 110/60 100 Intake and Output 02/07/17 02/07/17 02/08/17 15:00 23:00 07:00 Intake Total 240 ml 480 ml 360 ml Balance 240 ml 480 ml 360 ml Results Result Diagram: 02/07/17 0422 02/07/17 0450 Results 24 hrs Laboratory Tests Test 02/07/17 20:20 02/08/17 08:21 02/08/17 12:03 02/08/17 17:38 Bedside Glucose 112 99 140 116 Medications Medications Current Medications Aspirin (Halfprin) 81 mg DAILY PO Last administered on 02/08/17 08:25; Admin Dose 81 MG; Start 12/27/16 at 09:00 Clopidogrel Bisulfate (plaVIX) 75 mg DAILY PO Last administered on 02/08/17 08:24; Admin Dose 75 MG; Start 12/27/16 at 09:00 Famotidine (Pepcid) 40 mg HS PO Last administered on 02/07/17 20:21; Admin Dose 40 MG; Start 12/26/16 at 21:00 Folic Acid (Folic Acid) 1 mg DAILY PO Last administered on 02/08/17 08:24; Admin Dose 1 MG; Start 12/27/16 at 09:00 Gabapentin (Neurontin) 100 mg TID PO Last administered on 02/08/17 12:10; Admin Dose 100 MG; Start 12/26/16 at 21:00 Mycophenolate Mofetil (Cellcept) 1,000 mg BID PO Last administered on 08:24; Admin Dose 1,000 MG; Start 12/26/16 at 21:00 Pantoprazole (Protonix Tab) 40 mg DAILY@06 PO Last administered on 02/08/17 06:10; Admin Dose 40 MG; Start 12/27/16 at 06:00 Diagnostic Test (Pha) (Accu-Chek) 1 ea 02 XX ; Start 12/27/16 at 02:00 Miscellaneous Information 1 ea NOTE XX ; Start 12/26/16 at 14:30 Glucose (Glutose) 15 gm Q15M PRN PO DECREASED GLUCOSE; Start 12/26/16 at 14:30 Glucose (Glutose) 22.5 gm Q15M PRN PO DECREASED GLUCOSE; Start 12/26/16 at 14:30 Dextrose (D50w Syringe) 25 ml Q15M PRN IV DECREASED GLUCOSE; Start 12/26/16 at 14:30 Dextrose (D50w Syringe) 50 ml Q15M PRN IV DECREASED GLUCOSE; Start 12/26/16 at 14:30 Glucagon (Glucagen) 1 mg Q15M PRN IM DECREASED GLUCOSE; Start 12/26/16 at 14:30 Glucose (Glutose) 15 gm Q15M PRN BUCCAL DECREASED GLUCOSE; Start 12/26/16 at 14: 30 Cholecalciferol (Vitamin D) 1,000 unit DAILY PO Last administered on 08:24; Admin Dose 1,000 UNIT; Start 12/28/16 at 09:00 Ondansetron HCl (Zofran Inj) 4 mg Q6H PRN IV NAUSEA AND/OR VOMITING Last administered on 01/15/17 09:50; Admin Dose 4 MG; Start 01/01/17 at 10:00 Haloperidol (Haldol) 2 mg Q4H PRN IM AGITATION/ANXIETY Last administered on 22:46; Admin Dose 2 MG; Start 01/08/17 at 01:30 Acetaminophen (Tylenol Tab) 650 mg Q6H PRN PO PAIN AND OR ELEVATED TEMP Last administered on 01/16/17 10:25; Admin Dose 650 MG; Start 01/08/17 at 22:30 Quetiapine Fumarate (Seroquel) 25 mg QHS PRN PO agitation/hallucinations Last administered on 01/09/17 22:15; Admin Dose 25 MG; Start 01/09/17 at 21:00 Morphine Sulfate (morphine) 2 mg Q8H PRN IV PAIN LEVEL 6-10 Last administered on 01/19/17 16:02; Admin Dose 2 MG; Start 01/11/17 at 14:00 Clonidine (Catapres) 0.1 mg Q6H PRN PO hypertension Last administered on 02:41; Admin Dose 0.1 MG; Start 01/14/17 at 02:30 Hydralazine HCl (Apresoline) 25 mg Q6H PRN IV ELEVATED SYSTOLIC BP Last administered on 01/14/17 07:04; Admin Dose 25 MG; Start 01/14/17 at 07:00 Insulin Glargine (Lantus) 5 unit DAILY@20 SC Last administered on 02/07/17 20 :24; Admin Dose 5 UNIT; Start 01/17/17 at 20:00 Tacrolimus (Prograf) 2 mg Q12 PO Last administered on 02/08/17 08:25; Admin Dose 2 MG; Start 01/18/17 at 09:00 IV Flush (NS 10 ml) 10 ml PRN PRN IV IV PROTOCOL Last administered on 11:54; Admin Dose 10 ML; Start 01/19/17 at 12:30 Acetaminophen/ Hydrocodone Bitart ([place] (5/325)) 1 tab Q8H PRN PO PAIN Last administered on 02/08/17 15:15; Admin Dose 1 TAB; Start 01/19/17 at 14:30 Metoprolol Tartrate (Lopressor) 50 mg BID PO Last administered on 02/08/17 08 :25; Admin Dose 50 MG; Start 01/23/17 at 21:00 Benazepril HCl (Lotensin) 10 mg BID PO Last administered on 02/08/17 08:25; Admin Dose 10 MG; Start 01/31/17 at 21:00 Linezolid (Zyvox) 600 mg BID PO Last administered on 02/08/17 08:24; Admin Dose 600 MG; Start 02/06/17 at 11:00 RAMON KEMP MD Feb 08, 2017 17:52
[2017-02-08 20:21] VITALS: BP 111/58; RESP 18
[2017-02-08] MEDS: FAMOTIDINE 20 MG TAB PO SCH (20:55)
[2017-02-08] MEDS: INSULIN GLARGINE [LANtus] 3 ML PEN SC SCH (20:58)
--- NOTE | 2017-02-08 21:42 | CONS ---
Date/Time of Note Date/Time of Note DATE: 02/08/17 TIME: 21:41 Consult Date/Type/Reason Admit Date/Time Dec 26, 2016 at 13:22 Initial Consult Date 12/27/16 Type of Consultation: ID Ordering Provider: LES GILLILAND Objective Vital Signs Date Time Temp Pulse Resp B/P Pulse Ox O2 Delivery O2 Flow Rate FiO2 02/08/17 20:21 97.8 63 18 111/58 99 Intake and Output 02/07/17 02/07/17 02/08/17 15:00 23:00 07:00 Intake Total 240 ml 480 ml 360 ml Balance 240 ml 480 ml 360 ml Results/Medications Result Diagram: 02/07/17 0422 02/07/17 0450 Results 24 hrs Laboratory Tests Test 02/08/17 08:21 02/08/17 12:03 02/08/17 17:38 02/08/17 20:52 Bedside Glucose 99 140 116 127 Medications Current Medications Aspirin (Halfprin) 81 mg DAILY PO Last administered on 02/08/17 08:25; Admin Dose 81 MG; Start 12/27/16 at 09:00 Clopidogrel Bisulfate (plaVIX) 75 mg DAILY PO Last administered on 02/08/17 08:24; Admin Dose 75 MG; Start 12/27/16 at 09:00 Famotidine (Pepcid) 40 mg HS PO Last administered on 02/08/17 20:55; Admin Dose 40 MG; Start 12/26/16 at 21:00 Folic Acid (Folic Acid) 1 mg DAILY PO Last administered on 02/08/17 08:24; Admin Dose 1 MG; Start 12/27/16 at 09:00 Gabapentin (Neurontin) 100 mg TID PO Last administered on 02/08/17 20:54; Admin Dose 100 MG; Start 12/26/16 at 21:00 Mycophenolate Mofetil (Cellcept) 1,000 mg BID PO Last administered on 20:54; Admin Dose 1,000 MG; Start 12/26/16 at 21:00 Pantoprazole (Protonix Tab) 40 mg DAILY@06 PO Last administered on 02/08/17 06:10; Admin Dose 40 MG; Start 12/27/16 at 06:00 Diagnostic Test (Pha) (Accu-Chek) 1 ea 02 XX ; Start 12/27/16 at 02:00 Miscellaneous Information 1 ea NOTE XX ; Start 12/26/16 at 14:30 Glucose (Glutose) 15 gm Q15M PRN PO DECREASED GLUCOSE; Start 12/26/16 at 14:30 Glucose (Glutose) 22.5 gm Q15M PRN PO DECREASED GLUCOSE; Start 12/26/16 at 14:30 Dextrose (D50w Syringe) 25 ml Q15M PRN IV DECREASED GLUCOSE; Start 12/26/16 at 14:30 Dextrose (D50w Syringe) 50 ml Q15M PRN IV DECREASED GLUCOSE; Start 12/26/16 at 14:30 Glucagon (Glucagen) 1 mg Q15M PRN IM DECREASED GLUCOSE; Start 12/26/16 at 14:30 Glucose (Glutose) 15 gm Q15M PRN BUCCAL DECREASED GLUCOSE; Start 12/26/16 at 14: 30 Cholecalciferol (Vitamin D) 1,000 unit DAILY PO Last administered on 08:24; Admin Dose 1,000 UNIT; Start 12/28/16 at 09:00 Ondansetron HCl (Zofran Inj) 4 mg Q6H PRN IV NAUSEA AND/OR VOMITING Last administered on 01/15/17 09:50; Admin Dose 4 MG; Start 01/01/17 at 10:00 Haloperidol (Haldol) 2 mg Q4H PRN IM AGITATION/ANXIETY Last administered on 22:46; Admin Dose 2 MG; Start 01/08/17 at 01:30 Acetaminophen (Tylenol Tab) 650 mg Q6H PRN PO PAIN AND OR ELEVATED TEMP Last administered on 01/16/17 10:25; Admin Dose 650 MG; Start 01/08/17 at 22:30 Quetiapine Fumarate (Seroquel) 25 mg QHS PRN PO agitation/hallucinations Last administered on 01/09/17 22:15; Admin Dose 25 MG; Start 01/09/17 at 21:00 Morphine Sulfate (morphine) 2 mg Q8H PRN IV PAIN LEVEL 6-10 Last administered on 01/19/17 16:02; Admin Dose 2 MG; Start 01/11/17 at 14:00 Clonidine (Catapres) 0.1 mg Q6H PRN PO hypertension Last administered on 02:41; Admin Dose 0.1 MG; Start 01/14/17 at 02:30 Hydralazine HCl (Apresoline) 25 mg Q6H PRN IV ELEVATED SYSTOLIC BP Last administered on 01/14/17 07:04; Admin Dose 25 MG; Start 01/14/17 at 07:00 Insulin Glargine (Lantus) 5 unit DAILY@20 SC Last administered on 02/08/17 20 :58; Admin Dose 5 UNIT; Start 01/17/17 at 20:00 Tacrolimus (Prograf) 2 mg Q12 PO Last administered on 02/08/17 20:55; Admin Dose 2 MG; Start 01/18/17 at 09:00 IV Flush (NS 10 ml) 10 ml PRN PRN IV IV PROTOCOL Last administered on 11:54; Admin Dose 10 ML; Start 01/19/17 at 12:30 Acetaminophen/ Hydrocodone Bitart ([place] (5/325)) 1 tab Q8H PRN PO PAIN Last administered on 02/08/17 15:15; Admin Dose 1 TAB; Start 01/19/17 at 14:30 Metoprolol Tartrate (Lopressor) 50 mg BID PO Last administered on 02/08/17 08 :25; Admin Dose 50 MG; Start 01/23/17 at 21:00 Benazepril HCl (Lotensin) 10 mg BID PO Last administered on 02/08/17 20:56; Admin Dose 10 MG; Start 01/31/17 at 21:00 Linezolid (Zyvox) 600 mg BID PO Last administered on 02/08/17 20:55; Admin Dose 600 MG; Start 02/06/17 at 11:00 Assessment/Plan Chief Complaint/Hosp Course SUBJECTIVE DATA: No acute events. Patient is alert, looks comfortable. No fevers. ANTIMICROBIALS: Zyvox OBJECTIVE DATA: GENERAL: Chronically ill-appearing, elderly woman, who is awake, in no distress. HEENT: Head atraumatic, normocephalic. Sclerae anicteric. Buccal mucosa dry. NECK: Supple. CHEST: Rise symmetrical. Breath sounds diminished at the bases. HEART: S1, S2. ABDOMEN: Soft, bowel sounds present. EXTREMITIES: With left stump dsg intact. The right foot dry necrotic wound ASSESSMENT: 1. 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 2. Severe peripheral arterial disease, failed multiple revascularization procedures. 3. History of kidney transplant, remains on immunosuppressive therapy. 4. Resolved diarrhea, on empiric oral vancomycin. 5. Diabetes. 6. History of ybloosno-kjxytclc-nbdf-lactamase urinary tract infection. 7. R foot gangrene with open wound==> cx + E coli ESBL==> treated PLAN: Patient remains stable. Continue Zyvox, continue present care, will follow vascular rec-s [facility] staff Problems: JACQUES HUERTA NP Feb 08, 2017 21:42
[2017-02-09 02:18] VITALS: BP 140/64; RESP 18
[2017-02-09] MEDS: PANTOPRAZOLE (EC) 40 MG TAB PO SCH (05:22)
[2017-02-09 05:28] LABS: BASOPHILS % 0.2 % (0.0-2.0); EOSINOPHILS # 0.1 10^3/ul (0.0-0.5); EOSINOPHILS % 2.6 % (0.0-7.0); HEMATOCRIT 28.5 % (37.0-47.0); HEMOGLOBIN 9.2 g/dl (12.0-16.0); LYMPHOCYTES # 0.9 10^3/ul (0.8-2.9); LYMPHOCYTES % 20.2 % (15.0-51.0); MEAN CORPUSCULAR HGB CONC 32.3 g/dl (32.0-37.0); MEAN CORPUSCULAR VOLUME 86.6 fl (82.0-101.0); MEAN PLATELET VOLUME 12.1 fl (7.4-10.4); MONOCYTE # 0.7 10^3/ul (0.3-0.9); MONOCYTES % 14.1 % (0.0-11.0); NEUTROPHIL # 2.9 10^3/ul (1.6-7.5); NEUTROPHILS % 62.7 % (39.0-77.0); PLATELET COUNT 206 10^3/UL (140-415); RED BLOOD COUNT 3.29 10^6/ul (4.20-5.40); RED CELL DISTRIBUTION WIDTH 15.5 % (11.5-14.5); WHITE BLOOD COUNT 4.6 10^3/ul (4.8-10.8)
[2017-02-09 06:05] LABS: CALCIUM 9.3 mg/dl (8.4-10.2); CREATININE 0.64 mg/dl (0.44-1.00)
[2017-02-09] MEDS: INSULIN ASPART [NOVOLOG] 3 ML PEN SC SCH ×4 (08:00→20:47)
[2017-02-09 08:26] VITALS: BP 139/63; RESP 19
[2017-02-09] MEDS: FOLIC ACID 1 MG TAB PO SCH (08:52)
[2017-02-09] MEDS: MYCOPHENOLATE 250 MG CAP PO SCH ×2 (08:52→20:42)
[2017-02-09] MEDS: ASPIRIN (EC) 81 MG TAB PO SCH (08:52)
[2017-02-09] MEDS: METOPROLOL 50 MG TAB PO SCH ×2 (08:53→20:49)
[2017-02-09] MEDS: GABAPENTIN 100 MG CAP PO SCH ×3 (08:53→20:42)
[2017-02-09] MEDS: CLOPIDOGREL 75 MG TAB PO SCH (08:53)
[2017-02-09] MEDS: BENAZEPRIL 10 MG TAB PO SCH ×2 (08:53→20:49)
[2017-02-09] MEDS: CHOLECALCIFEROL 1,000 UNIT TAB PO SCH (08:54)
[2017-02-09] MEDS: TACROLIMUS 1 MG CAP PO SCH ×2 (08:54→21:02)
[2017-02-09] MEDS: ZYVOX 600 MG TAB PO SCH ×2 (08:54→20:47)
--- NOTE | 2017-02-09 11:59 | CONS ---
Date/Time of Note Date/Time of Note DATE: 02/09/17 TIME: 11:58 Assessment/Plan Assessment/Plan Additional Assessment/Plan 1. 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 h/o donor kidney transplant in 2009 at [facility], currently on immunosuppression with Prograf, CellCept 4. 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 History of hypertension. 6. History of diabetes mellitus. 7. History of previous left upper extremity arteriovenous fistula. 8. Hyponatremia due to hypovolemic hyponatremia post op 9. -CT chest+ abd+pelvis with and without contrast negative for mass/LAD/ Malignancy Plan: continue Current immunosuppression Prograf and cellcept, Cr 0.68,Electrolytes and Na normal today, Off IV Fluids now s/p Left AKA, off IV abx now, continue Lotensin for now ID following will continue to follow up on patient Consultation Date/Type/Reason Admit Date/Time Dec 26, 2016 at 13:22 Initial Consult Date 12/27/16 Type of Consultation: NEPHROLOGY Referring Provider: LES GILLILAND 24 HR Interval Summary Free Text/Dictation Stable, Cr and electrolytes stable Exam/Review of Systems Vital Signs Vitals Vital Signs Date Time Temp Pulse Resp B/P Pulse Ox O2 Delivery O2 Flow Rate FiO2 02/09/17 08:26 97.7 77 19 139/63 100 Intake and Output 02/08/17 02/08/17 02/09/17 15:00 23:00 07:00 Intake Total 1000 ml 250 ml Balance 1000 ml 250 ml Exam GEN: fragile elderly woman who is awake in no distress. HEENT: Head atraumatic, normocephalic. Sclerae anicteric. NECK: Supple. CHEST: Rise symmetrical. Breath sounds clear. HEART: S1, S2. ABDOMEN: Soft, bowel sounds present. left BKA dressing clean Results Result Diagram: 02/09/17 0434 02/09/17 0434 Results 24 hrs Laboratory Tests Test 02/08/17 12:03 02/08/17 17:38 02/08/17 20:52 02/09/17 04:34 Bedside Glucose 140 116 127 White Blood Count 4.6 #L Red Blood Count 3.29 L Hemoglobin 9.2 L Hematocrit 28.5 L Mean Corpuscular Volume 86.6 Mean Corpuscular Hemoglobin 28.0 L Mean Corpuscular Hemoglobin Concent 32.3 Red Cell Distribution Width 15.5 H Platelet Count 206 Mean Platelet Volume 12.1 H Neutrophils % 62.7 Lymphocytes % 20.2 Monocytes % 14.1 H Eosinophils % 2.6 Basophils % 0.2 Nucleated Red Blood Cells % 0.0 Neutrophils # 2.9 Lymphocytes # 0.9 Monocytes # 0.7 Eosinophils # 0.1 Basophils # 0.0 Nucleated Red Blood Cells # 0.0 Sodium Level 136 Potassium Level 4.0 Chloride Level 103 Carbon Dioxide Level 26 Anion Gap 11 Blood Urea Nitrogen 15 Creatinine 0.64 Glucose Level 76 Calcium Level 9.3 Test 02/09/17 08:14 Bedside Glucose 84 Medications Medications Current Medications Aspirin (Halfprin) 81 mg DAILY PO Last administered on 02/09/17 08:52; Admin Dose 81 MG; Start 12/27/16 at 09:00 Clopidogrel Bisulfate (plaVIX) 75 mg DAILY PO Last administered on 02/09/17 08:53; Admin Dose 75 MG; Start 12/27/16 at 09:00 Famotidine (Pepcid) 40 mg HS PO Last administered on 02/08/17 20:55; Admin Dose 40 MG; Start 12/26/16 at 21:00 Folic Acid (Folic Acid) 1 mg DAILY PO Last administered on 02/09/17 08:52; Admin Dose 1 MG; Start 12/27/16 at 09:00 Gabapentin (Neurontin) 100 mg TID PO Last administered on 02/09/17 08:53; Admin Dose 100 MG; Start 12/26/16 at 21:00 Mycophenolate Mofetil (Cellcept) 1,000 mg BID PO Last administered on 08:52; Admin Dose 1,000 MG; Start 12/26/16 at 21:00 Pantoprazole (Protonix Tab) 40 mg DAILY@06 PO Last administered on 02/09/17 05:22; Admin Dose 40 MG; Start 12/27/16 at 06:00 Diagnostic Test (Pha) (Accu-Chek) 1 ea 02 XX ; Start 12/27/16 at 02:00 Miscellaneous Information 1 ea NOTE XX ; Start 12/26/16 at 14:30 Glucose (Glutose) 15 gm Q15M PRN PO DECREASED GLUCOSE; Start 12/26/16 at 14:30 Glucose (Glutose) 22.5 gm Q15M PRN PO DECREASED GLUCOSE; Start 12/26/16 at 14:30 Dextrose (D50w Syringe) 25 ml Q15M PRN IV DECREASED GLUCOSE; Start 12/26/16 at 14:30 Dextrose (D50w Syringe) 50 ml Q15M PRN IV DECREASED GLUCOSE; Start 12/26/16 at 14:30 Glucagon (Glucagen) 1 mg Q15M PRN IM DECREASED GLUCOSE; Start 12/26/16 at 14:30 Glucose (Glutose) 15 gm Q15M PRN BUCCAL DECREASED GLUCOSE; Start 12/26/16 at 14: 30 Cholecalciferol (Vitamin D) 1,000 unit DAILY PO Last administered on 08:54; Admin Dose 1,000 UNIT; Start 12/28/16 at 09:00 Ondansetron HCl (Zofran Inj) 4 mg Q6H PRN IV NAUSEA AND/OR VOMITING Last administered on 01/15/17 09:50; Admin Dose 4 MG; Start 01/01/17 at 10:00 Haloperidol (Haldol) 2 mg Q4H PRN IM AGITATION/ANXIETY Last administered on 22:46; Admin Dose 2 MG; Start 01/08/17 at 01:30 Acetaminophen (Tylenol Tab) 650 mg Q6H PRN PO PAIN AND OR ELEVATED TEMP Last administered on 01/16/17 10:25; Admin Dose 650 MG; Start 01/08/17 at 22:30 Quetiapine Fumarate (Seroquel) 25 mg QHS PRN PO agitation/hallucinations Last administered on 01/09/17 22:15; Admin Dose 25 MG; Start 01/09/17 at 21:00 Morphine Sulfate (morphine) 2 mg Q8H PRN IV PAIN LEVEL 6-10 Last administered on 01/19/17 16:02; Admin Dose 2 MG; Start 01/11/17 at 14:00 Clonidine (Catapres) 0.1 mg Q6H PRN PO hypertension Last administered on 02:41; Admin Dose 0.1 MG; Start 01/14/17 at 02:30 Hydralazine HCl (Apresoline) 25 mg Q6H PRN IV ELEVATED SYSTOLIC BP Last administered on 01/14/17 07:04; Admin Dose 25 MG; Start 01/14/17 at 07:00 Insulin Glargine (Lantus) 5 unit DAILY@20 SC Last administered on 02/08/17 20 :58; Admin Dose 5 UNIT; Start 01/17/17 at 20:00 Tacrolimus (Prograf) 2 mg Q12 PO Last administered on 02/09/17 08:54; Admin Dose 2 MG; Start 01/18/17 at 09:00 IV Flush (NS 10 ml) 10 ml PRN PRN IV IV PROTOCOL Last administered on 11:54; Admin Dose 10 ML; Start 01/19/17 at 12:30 Acetaminophen/ Hydrocodone Bitart ([place] (5/325)) 1 tab Q8H PRN PO PAIN Last administered on 02/08/17 15:15; Admin Dose 1 TAB; Start 01/19/17 at 14:30 Metoprolol Tartrate (Lopressor) 50 mg BID PO Last administered on 02/09/17 08 :53; Admin Dose 50 MG; Start 01/23/17 at 21:00 Benazepril HCl (Lotensin) 10 mg BID PO Last administered on 02/09/17 08:53; Admin Dose 10 MG; Start 01/31/17 at 21:00 Linezolid (Zyvox) 600 mg BID PO Last administered on 02/09/17 08:54; Admin Dose 600 MG; Start 02/06/17 at 11:00 RAMON KEMP MD Feb 09, 2017 11:59
--- NOTE | 2017-02-09 12:43 | PN ---
Date/Time of Note Date/Time of Note DATE: 02/09/17 TIME: 12:41 Assessment/Plan Lines/Catheters IV Catheter Type (from Nrsg): PICC Line More[place] in Place (from Nrsg): No Assessment/Plan Chief Complaint/Hosp Course -Bilateral lower extremity atherosclerosis with bilateral foot gangrene: S/P Left AKA -Her medial aspect of the AKA has developed superficial eschar, recommend applying Betadine paint daily -PT/OT as tolerated -Unfortunately she may encounter the same issue with her RLE. However, at the moment no significant rest pain reported and wounds are stable -Optimize vascular status (BP medications, diet, nutrition and exercise, sugar control, antiplatelets). -Podiatry colleagues are involved with the local wound care -Discussed findings, plan and management with the patient with a certified ergonomics technician and she understands. -Thank you for allowing us to partake in the care of your patient. Please call with any questions. Problems: Subjective 24 Hr Interval Summary no new vascular events Exam/Review of Systems Vital Signs Vitals Vital Signs Date Time Temp Pulse Resp B/P Pulse Ox O2 Delivery O2 Flow Rate FiO2 02/09/17 08:26 97.7 77 19 139/63 100 Intake and Output 02/08/17 02/08/17 02/09/17 15:00 23:00 07:00 Intake Total 1000 ml 250 ml Balance 1000 ml 250 ml Exam Free Text/Dictation Alert and oriented x3 LUNGS: Clear to auscultation bilaterally. CARDIOVASCULAR: S1 and S2 present ABDOMEN: Soft, nontender and nondistended. Bowel sounds positive. Surgical scar well healed. EXTREMITIES: -Right lower extremity faint femoral pulse. Nonpalpable pedal pulse. Motor and sensory intact. Capillary refill 4 seconds. Gangrene of fifth toe amputation stump site and dependant rubor stable. -Left lower extremity faint femoral pulse. AKA-stump intact with Medial aspect having a superficial eschar. no pus or erythema identified Results Result Diagram: 02/09/17 0434 02/09/17 0434 WILD DUARTE MD Feb 09, 2017 12:43
--- NOTE | 2017-02-09 13:46 | CONS ---
Date/Time of Note Date/Time of Note DATE: 02/09/17 TIME: 13:44 Assessment/Plan Assessment/Plan Chief Complaint/Hosp Course IMP: 1.Unt-fi-lzqash test 10/2016 with no ischemia/only scar/NL EF. Negative trop x 3. 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 Encephalopathy-improved 7. Hyponatremia-improved Recc: -Continue asa/plavix -Continue benazepril/BB at current doses with reasonable controlled BP currently -Local wound care -Continue abx's and f/u cx data -Continue immuonosuppresives -Follow volume status closely Problems: Consultation Date/Type/Reason Admit Date/Time Dec 26, 2016 at 13:22 Initial Consult Date 12/27/16 Type of Consultation: cardiology Reason for Consultation HTN Referring Provider: LES GILLILAND Exam/Review of Systems Vital Signs Vitals Vital Signs Date Time Temp Pulse Resp B/P Pulse Ox O2 Delivery O2 Flow Rate FiO2 02/09/17 08:26 97.7 77 19 139/63 100 Intake and Output 02/08/17 02/08/17 02/09/17 15:00 23:00 07:00 Intake Total 1000 ml 250 ml Balance 1000 ml 250 ml Exam Review of Systems: CONSTITUTIONAL: No fevers, chills. PULMONARY: No sob CARDIOVASCULAR: No chest pain/palpitations GASTROINTESTINAL: No nausea/vomiting. GENITOURINARY: No hematuria/dysuria. MUSCULOSKELETAL: mild pain in foot/leg PSYCHIATRIC: The patient denies depression. NEUROLOGIC: No weakness Constitutional: alert, oriented Psych: no complaints Head: normocephalic ENMT: mucosa pink and moist Neck: jvd (8 cm water), supple Respiratory: clear to auscultation Cardiovascular: regular rate and rhythm Gastrointestinal: non-tender, soft Musculoskeletal: muscle tone (normal) Extremities: edema (none) Neurological: other (No focal deficits) Results Result Diagram: 02/09/17 0434 02/09/17 0434 Results 24 hrs Laboratory Tests Test 02/08/17 17:38 02/08/17 20:52 02/09/17 04:34 02/09/17 08:14 Bedside Glucose 116 127 84 White Blood Count 4.6 #L Red Blood Count 3.29 L Hemoglobin 9.2 L Hematocrit 28.5 L Mean Corpuscular Volume 86.6 Mean Corpuscular Hemoglobin 28.0 L Mean Corpuscular Hemoglobin Concent 32.3 Red Cell Distribution Width 15.5 H Platelet Count 206 Mean Platelet Volume 12.1 H Neutrophils % 62.7 Lymphocytes % 20.2 Monocytes % 14.1 H Eosinophils % 2.6 Basophils % 0.2 Nucleated Red Blood Cells % 0.0 Neutrophils # 2.9 Lymphocytes # 0.9 Monocytes # 0.7 Eosinophils # 0.1 Basophils # 0.0 Nucleated Red Blood Cells # 0.0 Sodium Level 136 Potassium Level 4.0 Chloride Level 103 Carbon Dioxide Level 26 Anion Gap 11 Blood Urea Nitrogen 15 Creatinine 0.64 Glucose Level 76 Calcium Level 9.3 Test 02/09/17 12:05 Bedside Glucose 127 Medications Medications Current Medications Aspirin (Halfprin) 81 mg DAILY PO Last administered on 02/09/17 08:52; Admin Dose 81 MG; Start 12/27/16 at 09:00 Clopidogrel Bisulfate (plaVIX) 75 mg DAILY PO Last administered on 02/09/17 08:53; Admin Dose 75 MG; Start 12/27/16 at 09:00 Famotidine (Pepcid) 40 mg HS PO Last administered on 02/08/17 20:55; Admin Dose 40 MG; Start 12/26/16 at 21:00 Folic Acid (Folic Acid) 1 mg DAILY PO Last administered on 02/09/17 08:52; Admin Dose 1 MG; Start 12/27/16 at 09:00 Gabapentin (Neurontin) 100 mg TID PO Last administered on 02/09/17 12:07; Admin Dose 100 MG; Start 12/26/16 at 21:00 Mycophenolate Mofetil (Cellcept) 1,000 mg BID PO Last administered on 08:52; Admin Dose 1,000 MG; Start 12/26/16 at 21:00 Pantoprazole (Protonix Tab) 40 mg DAILY@06 PO Last administered on 02/09/17 05:22; Admin Dose 40 MG; Start 12/27/16 at 06:00 Diagnostic Test (Pha) (Accu-Chek) 1 ea 02 XX ; Start 12/27/16 at 02:00 Miscellaneous Information 1 ea NOTE XX ; Start 12/26/16 at 14:30 Glucose (Glutose) 15 gm Q15M PRN PO DECREASED GLUCOSE; Start 12/26/16 at 14:30 Glucose (Glutose) 22.5 gm Q15M PRN PO DECREASED GLUCOSE; Start 12/26/16 at 14:30 Dextrose (D50w Syringe) 25 ml Q15M PRN IV DECREASED GLUCOSE; Start 12/26/16 at 14:30 Dextrose (D50w Syringe) 50 ml Q15M PRN IV DECREASED GLUCOSE; Start 12/26/16 at 14:30 Glucagon (Glucagen) 1 mg Q15M PRN IM DECREASED GLUCOSE; Start 12/26/16 at 14:30 Glucose (Glutose) 15 gm Q15M PRN BUCCAL DECREASED GLUCOSE; Start 12/26/16 at 14: 30 Cholecalciferol (Vitamin D) 1,000 unit DAILY PO Last administered on 08:54; Admin Dose 1,000 UNIT; Start 12/28/16 at 09:00 Ondansetron HCl (Zofran Inj) 4 mg Q6H PRN IV NAUSEA AND/OR VOMITING Last administered on 01/15/17 09:50; Admin Dose 4 MG; Start 01/01/17 at 10:00 Haloperidol (Haldol) 2 mg Q4H PRN IM AGITATION/ANXIETY Last administered on 22:46; Admin Dose 2 MG; Start 01/08/17 at 01:30 Acetaminophen (Tylenol Tab) 650 mg Q6H PRN PO PAIN AND OR ELEVATED TEMP Last administered on 01/16/17 10:25; Admin Dose 650 MG; Start 01/08/17 at 22:30 Quetiapine Fumarate (Seroquel) 25 mg QHS PRN PO agitation/hallucinations Last administered on 01/09/17 22:15; Admin Dose 25 MG; Start 01/09/17 at 21:00 Morphine Sulfate (morphine) 2 mg Q8H PRN IV PAIN LEVEL 6-10 Last administered on 01/19/17 16:02; Admin Dose 2 MG; Start 01/11/17 at 14:00 Clonidine (Catapres) 0.1 mg Q6H PRN PO hypertension Last administered on 02:41; Admin Dose 0.1 MG; Start 01/14/17 at 02:30 Hydralazine HCl (Apresoline) 25 mg Q6H PRN IV ELEVATED SYSTOLIC BP Last administered on 01/14/17 07:04; Admin Dose 25 MG; Start 01/14/17 at 07:00 Insulin Glargine (Lantus) 5 unit DAILY@20 SC Last administered on 02/08/17 20 :58; Admin Dose 5 UNIT; Start 01/17/17 at 20:00 Tacrolimus (Prograf) 2 mg Q12 PO Last administered on 02/09/17 08:54; Admin Dose 2 MG; Start 01/18/17 at 09:00 IV Flush (NS 10 ml) 10 ml PRN PRN IV IV PROTOCOL Last administered on 11:54; Admin Dose 10 ML; Start 01/19/17 at 12:30 Acetaminophen/ Hydrocodone Bitart ([place] (5/325)) 1 tab Q8H PRN PO PAIN Last administered on 02/08/17 15:15; Admin Dose 1 TAB; Start 01/19/17 at 14:30 Metoprolol Tartrate (Lopressor) 50 mg BID PO Last administered on 02/09/17 08 :53; Admin Dose 50 MG; Start 01/23/17 at 21:00 Benazepril HCl (Lotensin) 10 mg BID PO Last administered on 02/09/17 08:53; Admin Dose 10 MG; Start 01/31/17 at 21:00 Linezolid (Zyvox) 600 mg BID PO Last administered on 02/09/17 08:54; Admin Dose 600 MG; Start 02/06/17 at 11:00 TIMOTHY CORTES Feb 09, 2017 13:46
[2017-02-09 14:46] VITALS: BP 110/60; RESP 17
--- NOTE | 2017-02-09 16:12 | CONS ---
Date/Time of Note Date/Time of Note DATE: 02/09/17 TIME: 16:07 Assessment/Plan Assessment/Plan Chief Complaint/Hosp Course Assessment/Plan Chief Complaint/Hosp Course SUBJECTIVE DATA: No Fever. No acute Events Overnight. No Acute distress. ANTIMICROBIALS: Zyvox OBJECTIVE DATA: GENERAL: Chronically ill-appearing, elderly woman, who is awake, in no distress. HEENT: Head atraumatic, normocephalic. Sclerae anicteric. Buccal mucosa dry. NECK: Supple. CHEST: Rise symmetrical. Breath sounds diminished at the bases. HEART: S1, S2. ABDOMEN: Soft, bowel sounds present. EXTREMITIES: With left stump dsg intact. The right foot dry necrotic wound ASSESSMENT: 1. 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 2. Severe peripheral arterial disease, failed multiple revascularization procedures. 3. History of kidney transplant, remains on immunosuppressive therapy. 4. Resolved diarrhea, on empiric oral vancomycin. 5. Diabetes. 6. History of djwqazrl-itqtkbnj-iqbb-lactamase urinary tract infection. 7. R foot gangrene with open wound==> cx + E coli ESBL==> treated PLAN: Continue Zyvox. Wound care as per Vascular Specialist Recommendations. Pain Management. GI Prophylaxis. DVT prophylaxis. Monitor Labs. DW patient. Problems: Consultation Date/Type/Reason Admit Date/Time Dec 26, 2016 at 13:22 Initial Consult Date 12/27/16 Type of Consultation: id Referring Provider: LES GILLILAND Exam/Review of Systems Vital Signs Vitals Vital Signs Date Time Temp Pulse Resp B/P Pulse Ox O2 Delivery O2 Flow Rate FiO2 02/09/17 14:46 98.0 67 17 110/60 100 Intake and Output 02/08/17 02/08/17 02/09/17 15:00 23:00 07:00 Intake Total 1000 ml 250 ml Balance 1000 ml 250 ml Results Result Diagram: 02/09/17 0434 02/09/17 0434 Results 24 hrs Laboratory Tests Test 02/08/17 17:38 02/08/17 20:52 02/09/17 04:34 02/09/17 08:14 Bedside Glucose 116 127 84 White Blood Count 4.6 #L Red Blood Count 3.29 L Hemoglobin 9.2 L Hematocrit 28.5 L Mean Corpuscular Volume 86.6 Mean Corpuscular Hemoglobin 28.0 L Mean Corpuscular Hemoglobin Concent 32.3 Red Cell Distribution Width 15.5 H Platelet Count 206 Mean Platelet Volume 12.1 H Neutrophils % 62.7 Lymphocytes % 20.2 Monocytes % 14.1 H Eosinophils % 2.6 Basophils % 0.2 Nucleated Red Blood Cells % 0.0 Neutrophils # 2.9 Lymphocytes # 0.9 Monocytes # 0.7 Eosinophils # 0.1 Basophils # 0.0 Nucleated Red Blood Cells # 0.0 Sodium Level 136 Potassium Level 4.0 Chloride Level 103 Carbon Dioxide Level 26 Anion Gap 11 Blood Urea Nitrogen 15 Creatinine 0.64 Glucose Level 76 Calcium Level 9.3 Test 02/09/17 12:05 Bedside Glucose 127 Medications Medications Current Medications Aspirin (Halfprin) 81 mg DAILY PO Last administered on 02/09/17 08:52; Admin Dose 81 MG; Start 12/27/16 at 09:00 Clopidogrel Bisulfate (plaVIX) 75 mg DAILY PO Last administered on 02/09/17 08:53; Admin Dose 75 MG; Start 12/27/16 at 09:00 Famotidine (Pepcid) 40 mg HS PO Last administered on 02/08/17 20:55; Admin Dose 40 MG; Start 12/26/16 at 21:00 Folic Acid (Folic Acid) 1 mg DAILY PO Last administered on 02/09/17 08:52; Admin Dose 1 MG; Start 12/27/16 at 09:00 Gabapentin (Neurontin) 100 mg TID PO Last administered on 02/09/17 12:07; Admin Dose 100 MG; Start 12/26/16 at 21:00 Mycophenolate Mofetil (Cellcept) 1,000 mg BID PO Last administered on 08:52; Admin Dose 1,000 MG; Start 12/26/16 at 21:00 Pantoprazole (Protonix Tab) 40 mg DAILY@06 PO Last administered on 02/09/17 05:22; Admin Dose 40 MG; Start 12/27/16 at 06:00 Diagnostic Test (Pha) (Accu-Chek) 1 ea 02 XX ; Start 12/27/16 at 02:00 Miscellaneous Information 1 ea NOTE XX ; Start 12/26/16 at 14:30 Glucose (Glutose) 15 gm Q15M PRN PO DECREASED GLUCOSE; Start 12/26/16 at 14:30 Glucose (Glutose) 22.5 gm Q15M PRN PO DECREASED GLUCOSE; Start 12/26/16 at 14:30 Dextrose (D50w Syringe) 25 ml Q15M PRN IV DECREASED GLUCOSE; Start 12/26/16 at 14:30 Dextrose (D50w Syringe) 50 ml Q15M PRN IV DECREASED GLUCOSE; Start 12/26/16 at 14:30 Glucagon (Glucagen) 1 mg Q15M PRN IM DECREASED GLUCOSE; Start 12/26/16 at 14:30 Glucose (Glutose) 15 gm Q15M PRN BUCCAL DECREASED GLUCOSE; Start 12/26/16 at 14: 30 Cholecalciferol (Vitamin D) 1,000 unit DAILY PO Last administered on 08:54; Admin Dose 1,000 UNIT; Start 12/28/16 at 09:00 Ondansetron HCl (Zofran Inj) 4 mg Q6H PRN IV NAUSEA AND/OR VOMITING Last administered on 01/15/17 09:50; Admin Dose 4 MG; Start 01/01/17 at 10:00 Haloperidol (Haldol) 2 mg Q4H PRN IM AGITATION/ANXIETY Last administered on 22:46; Admin Dose 2 MG; Start 01/08/17 at 01:30 Acetaminophen (Tylenol Tab) 650 mg Q6H PRN PO PAIN AND OR ELEVATED TEMP Last administered on 01/16/17 10:25; Admin Dose 650 MG; Start 01/08/17 at 22:30 Quetiapine Fumarate (Seroquel) 25 mg QHS PRN PO agitation/hallucinations Last administered on 01/09/17 22:15; Admin Dose 25 MG; Start 01/09/17 at 21:00 Morphine Sulfate (morphine) 2 mg Q8H PRN IV PAIN LEVEL 6-10 Last administered on 01/19/17 16:02; Admin Dose 2 MG; Start 01/11/17 at 14:00 Clonidine (Catapres) 0.1 mg Q6H PRN PO hypertension Last administered on 02:41; Admin Dose 0.1 MG; Start 01/14/17 at 02:30 Hydralazine HCl (Apresoline) 25 mg Q6H PRN IV ELEVATED SYSTOLIC BP Last administered on 01/14/17 07:04; Admin Dose 25 MG; Start 01/14/17 at 07:00 Insulin Glargine (Lantus) 5 unit DAILY@20 SC Last administered on 02/08/17 20 :58; Admin Dose 5 UNIT; Start 01/17/17 at 20:00 Tacrolimus (Prograf) 2 mg Q12 PO Last administered on 02/09/17 08:54; Admin Dose 2 MG; Start 01/18/17 at 09:00 IV Flush (NS 10 ml) 10 ml PRN PRN IV IV PROTOCOL Last administered on 11:54; Admin Dose 10 ML; Start 01/19/17 at 12:30 Acetaminophen/ Hydrocodone Bitart ([place] (5/325)) 1 tab Q8H PRN PO PAIN Last administered on 02/08/17 15:15; Admin Dose 1 TAB; Start 01/19/17 at 14:30 Metoprolol Tartrate (Lopressor) 50 mg BID PO Last administered on 02/09/17 08 :53; Admin Dose 50 MG; Start 01/23/17 at 21:00 Benazepril HCl (Lotensin) 10 mg BID PO Last administered on 02/09/17 08:53; Admin Dose 10 MG; Start 01/31/17 at 21:00 Linezolid (Zyvox) 600 mg BID PO Last administered on 02/09/17 08:54; Admin Dose 600 MG; Start 02/06/17 at 11:00 ROBERT GOETZ NP Feb 09, 2017 16:12
--- NOTE | 2017-02-09 19:40 | PN ---
Date/Time of Note Date/Time of Note DATE: 02/09/17 TIME: 19:35 Assessment/Plan Lines/Catheters IV [facility] PICC Line Urinary Cath still in place: No Assessment/Plan Assessment/Plan - Acute encephalopathy, resolved. CT brain is negative for any acute pathology. 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 S/p left AKA 01/[address] Valencia, vascular surgery. - Diabetes mellitus type II. Continue Lantus and NovoLog. - History of kidney transplant in 2009, on immunosuppressive therapy. - Hypertension. Continue metoprolol, benazepril. 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 - Anemia of chronic kidney disease. Further recommendations based on clinical course. Plan of care discussed with Dr. Cohen Subjective 24 Hr Interval Summary Free Text/Dictation Late chrting 02/08/2107- 1699 Patient has VRE in the wound , ID follows, vss stable, anticipate transfer tomorrow.. dw staff Exam/Review of Systems Vital Signs Vitals Vital Signs Date Time Temp Pulse Resp B/P Pulse Ox O2 Delivery O2 Flow Rate FiO2 02/09/17 14:46 98.0 67 17 110/60 100 Intake and Output 02/08/17 02/08/17 02/09/17 15:00 23:00 07:00 Intake Total 1000 ml 250 ml Balance 1000 ml 250 ml Exam Constitutional: alert Respiratory: clear to auscultation Gastrointestinal: non-tender, soft Musculoskeletal: other Extremities: normal pulses Neurological: nl speech Skin: other Results Result Diagram: 02/09/17 0434 02/09/17 0434 Results 24 hrs Laboratory Tests Test 02/08/17 20:52 02/09/17 04:34 02/09/17 08:14 02/09/17 12:05 Bedside Glucose 127 84 127 White Blood Count 4.6 #L Red Blood Count 3.29 L Hemoglobin 9.2 L Hematocrit 28.5 L Mean Corpuscular Volume 86.6 Mean Corpuscular Hemoglobin 28.0 L Mean Corpuscular Hemoglobin Concent 32.3 Red Cell Distribution Width 15.5 H Platelet Count 206 Mean Platelet Volume 12.1 H Neutrophils % 62.7 Lymphocytes % 20.2 Monocytes % 14.1 H Eosinophils % 2.6 Basophils % 0.2 Nucleated Red Blood Cells % 0.0 Neutrophils # 2.9 Lymphocytes # 0.9 Monocytes # 0.7 Eosinophils # 0.1 Basophils # 0.0 Nucleated Red Blood Cells # 0.0 Sodium Level 136 Potassium Level 4.0 Chloride Level 103 Carbon Dioxide Level 26 Anion Gap 11 Blood Urea Nitrogen 15 Creatinine 0.64 Glucose Level 76 Calcium Level 9.3 Test 02/09/17 17:35 Bedside Glucose 92 Medications Medications Current Medications Aspirin (Halfprin) 81 mg DAILY PO Last administered on 02/09/17 08:52; Admin Dose 81 MG; Start 12/27/16 at 09:00 Clopidogrel Bisulfate (plaVIX) 75 mg DAILY PO Last administered on 02/09/17 08:53; Admin Dose 75 MG; Start 12/27/16 at 09:00 Famotidine (Pepcid) 40 mg HS PO Last administered on 02/08/17 20:55; Admin Dose 40 MG; Start 12/26/16 at 21:00 Folic Acid (Folic Acid) 1 mg DAILY PO Last administered on 02/09/17 08:52; Admin Dose 1 MG; Start 12/27/16 at 09:00 Gabapentin (Neurontin) 100 mg TID PO Last administered on 02/09/17 12:07; Admin Dose 100 MG; Start 12/26/16 at 21:00 Mycophenolate Mofetil (Cellcept) 1,000 mg BID PO Last administered on 08:52; Admin Dose 1,000 MG; Start 12/26/16 at 21:00 Pantoprazole (Protonix Tab) 40 mg DAILY@06 PO Last administered on 02/09/17 05:22; Admin Dose 40 MG; Start 12/27/16 at 06:00 Diagnostic Test (Pha) (Accu-Chek) 1 ea 02 XX ; Start 12/27/16 at 02:00 Miscellaneous Information 1 ea NOTE XX ; Start 12/26/16 at 14:30 Glucose (Glutose) 15 gm Q15M PRN PO DECREASED GLUCOSE; Start 12/26/16 at 14:30 Glucose (Glutose) 22.5 gm Q15M PRN PO DECREASED GLUCOSE; Start 12/26/16 at 14:30 Dextrose (D50w Syringe) 25 ml Q15M PRN IV DECREASED GLUCOSE; Start 12/26/16 at 14:30 Dextrose (D50w Syringe) 50 ml Q15M PRN IV DECREASED GLUCOSE; Start 12/26/16 at 14:30 Glucagon (Glucagen) 1 mg Q15M PRN IM DECREASED GLUCOSE; Start 12/26/16 at 14:30 Glucose (Glutose) 15 gm Q15M PRN BUCCAL DECREASED GLUCOSE; Start 12/26/16 at 14: 30 Cholecalciferol (Vitamin D) 1,000 unit DAILY PO Last administered on 08:54; Admin Dose 1,000 UNIT; Start 12/28/16 at 09:00 Ondansetron HCl (Zofran Inj) 4 mg Q6H PRN IV NAUSEA AND/OR VOMITING Last administered on 01/15/17 09:50; Admin Dose 4 MG; Start 01/01/17 at 10:00 Haloperidol (Haldol) 2 mg Q4H PRN IM AGITATION/ANXIETY Last administered on 22:46; Admin Dose 2 MG; Start 01/08/17 at 01:30 Acetaminophen (Tylenol Tab) 650 mg Q6H PRN PO PAIN AND OR ELEVATED TEMP Last administered on 01/16/17 10:25; Admin Dose 650 MG; Start 01/08/17 at 22:30 Quetiapine Fumarate (Seroquel) 25 mg QHS PRN PO agitation/hallucinations Last administered on 01/09/17 22:15; Admin Dose 25 MG; Start 01/09/17 at 21:00 Morphine Sulfate (morphine) 2 mg Q8H PRN IV PAIN LEVEL 6-10 Last administered on 01/19/17 16:02; Admin Dose 2 MG; Start 01/11/17 at 14:00 Clonidine (Catapres) 0.1 mg Q6H PRN PO hypertension Last administered on 02:41; Admin Dose 0.1 MG; Start 01/14/17 at 02:30 Hydralazine HCl (Apresoline) 25 mg Q6H PRN IV ELEVATED SYSTOLIC BP Last administered on 01/14/17 07:04; Admin Dose 25 MG; Start 01/14/17 at 07:00 Insulin Glargine (Lantus) 5 unit DAILY@20 SC Last administered on 02/08/17 20 :58; Admin Dose 5 UNIT; Start 01/17/17 at 20:00 Tacrolimus (Prograf) 2 mg Q12 PO Last administered on 02/09/17 08:54; Admin Dose 2 MG; Start 01/18/17 at 09:00 IV Flush (NS 10 ml) 10 ml PRN PRN IV IV PROTOCOL Last administered on 11:54; Admin Dose 10 ML; Start 01/19/17 at 12:30 Acetaminophen/ Hydrocodone Bitart ([place] (5/325)) 1 tab Q8H PRN PO PAIN Last administered on 02/08/17 15:15; Admin Dose 1 TAB; Start 01/19/17 at 14:30 Metoprolol Tartrate (Lopressor) 50 mg BID PO Last administered on 02/09/17 08 :53; Admin Dose 50 MG; Start 01/23/17 at 21:00 Benazepril HCl (Lotensin) 10 mg BID PO Last administered on 02/09/17 08:53; Admin Dose 10 MG; Start 01/31/17 at 21:00 Linezolid (Zyvox) 600 mg BID PO Last administered on 02/09/17 08:54; Admin Dose 600 MG; Start 02/06/17 at 11:00 TIM BENNETT Feb 09, 2017 19:40
--- NOTE | 2017-02-09 19:42 | PN ---
Date/Time of Note Date/Time of Note DATE: 02/09/17 TIME: 19:40 Assessment/Plan Lines/Catheters IV [facility] (from [facility] PICC Line Urinary Cath still in place: No Assessment/Plan Assessment/Plan - Acute encephalopathy, resolved. CT brain is negative for any acute pathology. 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 S/p left AKA 01/[address] Valencia, vascular surgery. - Diabetes mellitus type II. Continue Lantus and NovoLog. - History of kidney transplant in 2009, on immunosuppressive therapy. - Hypertension. Continue metoprolol, benazepril. 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 - Anemia of chronic kidney disease. anticipate transfer today but transfer arrangement are not complete per case loader operator, Further recommendations based on clinical course. Plan of care discussed with Dr. Cohen Subjective 24 Hr Interval Summary Free Text/Dictation Patient has VRE in the wound , ID follows, vss stable, anticipate transfer tomorrow.- transfer is not arranged until present. dw staff Exam/Review of Systems Vital Signs Vitals Vital Signs Date Time Temp Pulse Resp B/P Pulse Ox O2 Delivery O2 Flow Rate FiO2 02/09/17 14:46 98.0 67 17 110/60 100 Intake and Output 02/08/17 02/08/17 02/09/17 15:00 23:00 07:00 Intake Total 1000 ml 250 ml Balance 1000 ml 250 ml Results Result Diagram: 02/09/17 0434 02/09/17 0434 Results 24 hrs Laboratory Tests Test 02/08/17 20:52 02/09/17 04:34 02/09/17 08:14 02/09/17 12:05 Bedside Glucose 127 84 127 White Blood Count 4.6 #L Red Blood Count 3.29 L Hemoglobin 9.2 L Hematocrit 28.5 L Mean Corpuscular Volume 86.6 Mean Corpuscular Hemoglobin 28.0 L Mean Corpuscular Hemoglobin Concent 32.3 Red Cell Distribution Width 15.5 H Platelet Count 206 Mean Platelet Volume 12.1 H Neutrophils % 62.7 Lymphocytes % 20.2 Monocytes % 14.1 H Eosinophils % 2.6 Basophils % 0.2 Nucleated Red Blood Cells % 0.0 Neutrophils # 2.9 Lymphocytes # 0.9 Monocytes # 0.7 Eosinophils # 0.1 Basophils # 0.0 Nucleated Red Blood Cells # 0.0 Sodium Level 136 Potassium Level 4.0 Chloride Level 103 Carbon Dioxide Level 26 Anion Gap 11 Blood Urea Nitrogen 15 Creatinine 0.64 Glucose Level 76 Calcium Level 9.3 Test 02/09/17 17:35 Bedside Glucose 92 Medications Medications Current Medications Aspirin (Halfprin) 81 mg DAILY PO Last administered on 02/09/17 08:52; Admin Dose 81 MG; Start 12/27/16 at 09:00 Clopidogrel Bisulfate (plaVIX) 75 mg DAILY PO Last administered on 02/09/17 08:53; Admin Dose 75 MG; Start 12/27/16 at 09:00 Famotidine (Pepcid) 40 mg HS PO Last administered on 02/08/17 20:55; Admin Dose 40 MG; Start 12/26/16 at 21:00 Folic Acid (Folic Acid) 1 mg DAILY PO Last administered on 02/09/17 08:52; Admin Dose 1 MG; Start 12/27/16 at 09:00 Gabapentin (Neurontin) 100 mg TID PO Last administered on 02/09/17 12:07; Admin Dose 100 MG; Start 12/26/16 at 21:00 Mycophenolate Mofetil (Cellcept) 1,000 mg BID PO Last administered on 08:52; Admin Dose 1,000 MG; Start 12/26/16 at 21:00 Pantoprazole (Protonix Tab) 40 mg DAILY@06 PO Last administered on 02/09/17 05:22; Admin Dose 40 MG; Start 12/27/16 at 06:00 Diagnostic Test (Pha) (Accu-Chek) 1 ea 02 XX ; Start 12/27/16 at 02:00 Miscellaneous Information 1 ea NOTE XX ; Start 12/26/16 at 14:30 Glucose (Glutose) 15 gm Q15M PRN PO DECREASED GLUCOSE; Start 12/26/16 at 14:30 Glucose (Glutose) 22.5 gm Q15M PRN PO DECREASED GLUCOSE; Start 12/26/16 at 14:30 Dextrose (D50w Syringe) 25 ml Q15M PRN IV DECREASED GLUCOSE; Start 12/26/16 at 14:30 Dextrose (D50w Syringe) 50 ml Q15M PRN IV DECREASED GLUCOSE; Start 12/26/16 at 14:30 Glucagon (Glucagen) 1 mg Q15M PRN IM DECREASED GLUCOSE; Start 12/26/16 at 14:30 Glucose (Glutose) 15 gm Q15M PRN BUCCAL DECREASED GLUCOSE; Start 12/26/16 at 14: 30 Cholecalciferol (Vitamin D) 1,000 unit DAILY PO Last administered on 08:54; Admin Dose 1,000 UNIT; Start 12/28/16 at 09:00 Ondansetron HCl (Zofran Inj) 4 mg Q6H PRN IV NAUSEA AND/OR VOMITING Last administered on 01/15/17 09:50; Admin Dose 4 MG; Start 01/01/17 at 10:00 Haloperidol (Haldol) 2 mg Q4H PRN IM AGITATION/ANXIETY Last administered on 22:46; Admin Dose 2 MG; Start 01/08/17 at 01:30 Acetaminophen (Tylenol Tab) 650 mg Q6H PRN PO PAIN AND OR ELEVATED TEMP Last administered on 01/16/17 10:25; Admin Dose 650 MG; Start 01/08/17 at 22:30 Quetiapine Fumarate (Seroquel) 25 mg QHS PRN PO agitation/hallucinations Last administered on 01/09/17 22:15; Admin Dose 25 MG; Start 01/09/17 at 21:00 Morphine Sulfate (morphine) 2 mg Q8H PRN IV PAIN LEVEL 6-10 Last administered on 01/19/17 16:02; Admin Dose 2 MG; Start 01/11/17 at 14:00 Clonidine (Catapres) 0.1 mg Q6H PRN PO hypertension Last administered on 02:41; Admin Dose 0.1 MG; Start 01/14/17 at 02:30 Hydralazine HCl (Apresoline) 25 mg Q6H PRN IV ELEVATED SYSTOLIC BP Last administered on 01/14/17 07:04; Admin Dose 25 MG; Start 01/14/17 at 07:00 Insulin Glargine (Lantus) 5 unit DAILY@20 SC Last administered on 02/08/17 20 :58; Admin Dose 5 UNIT; Start 01/17/17 at 20:00 Tacrolimus (Prograf) 2 mg Q12 PO Last administered on 02/09/17 08:54; Admin Dose 2 MG; Start 01/18/17 at 09:00 IV Flush (NS 10 ml) 10 ml PRN PRN IV IV PROTOCOL Last administered on 11:54; Admin Dose 10 ML; Start 01/19/17 at 12:30 Acetaminophen/ Hydrocodone Bitart ([place] (5/325)) 1 tab Q8H PRN PO PAIN Last administered on 02/08/17 15:15; Admin Dose 1 TAB; Start 01/19/17 at 14:30 Metoprolol Tartrate (Lopressor) 50 mg BID PO Last administered on 02/09/17 08 :53; Admin Dose 50 MG; Start 01/23/17 at 21:00 Benazepril HCl (Lotensin) 10 mg BID PO Last administered on 02/09/17 08:53; Admin Dose 10 MG; Start 01/31/17 at 21:00 Linezolid (Zyvox) 600 mg BID PO Last administered on 02/09/17 08:54; Admin Dose 600 MG; Start 02/06/17 at 11:00 TIM BENNETT Feb 09, 2017 19:42
[2017-02-09 20:42] VITALS: BP 114/59; RESP 18
[2017-02-09] MEDS: FAMOTIDINE 20 MG TAB PO SCH (20:46)
[2017-02-09] MEDS: INSULIN GLARGINE [LANtus] 3 ML PEN SC SCH (20:50)
[2017-02-09 20:58] LABS: BASOPHILS % 0.4 % (0.0-2.0); EOSINOPHILS # 0.2 10^3/ul (0.0-0.5); EOSINOPHILS % 2.8 % (0.0-7.0); HEMATOCRIT 28.1 % (37.0-47.0); HEMOGLOBIN 9.1 g/dl (12.0-16.0); LYMPHOCYTES # 1.1 10^3/ul (0.8-2.9); LYMPHOCYTES % 20.4 % (15.0-51.0); MEAN CORPUSCULAR HGB CONC 32.4 g/dl (32.0-37.0); MEAN CORPUSCULAR VOLUME 86.5 fl (82.0-101.0); MEAN PLATELET VOLUME 10.2 fl (7.4-10.4); MONOCYTE # 0.7 10^3/ul (0.3-0.9); MONOCYTES % 13.8 % (0.0-11.0); NEUTROPHIL # 3.3 10^3/ul (1.6-7.5); NEUTROPHILS % 62.2 % (39.0-77.0); PLATELET COUNT 185 10^3/UL (140-415); RED BLOOD COUNT 3.25 10^6/ul (4.20-5.40); RED CELL DISTRIBUTION WIDTH 15.8 % (11.5-14.5); WHITE BLOOD COUNT 5.3 10^3/ul (4.8-10.8)
[2017-02-09 21:13] LABS: CREATININE 0.67 mg/dl (0.44-1.00)
[2017-02-09 21:19] LABS: INR 1.05; PROTIME 13.7 Sec (12.2-14.2); PT RATIO 1.1
[2017-02-09 21:20] LABS: PARTIAL THROMBOPLASTIN TIME 27.2 Sec (25.0-35.0)
[2017-02-09] MEDS: TOBRAMYCIN/DEXAMETH 2.5 ML OPH LEFT EYE SCH (23:43)
[2017-02-10] MEDS: ACCU-CHEK XX SCH (02:00)
[2017-02-10 02:45] VITALS: BP 120/63; RESP 18
[2017-02-10 05:36] LABS: BASOPHILS % 0.2 % (0.0-2.0); EOSINOPHILS # 0.1 10^3/ul (0.0-0.5); HEMATOCRIT 29.1 % (37.0-47.0); HEMOGLOBIN 9.1 g/dl (12.0-16.0); LYMPHOCYTES % 22.2 % (15.0-51.0); MEAN CORPUSCULAR HEMOGLOBIN 26.8 pg (29.0-33.0); MEAN CORPUSCULAR HGB CONC 31.3 g/dl (32.0-37.0); MEAN CORPUSCULAR VOLUME 85.8 fl (82.0-101.0); MEAN PLATELET VOLUME 11.8 fl (7.4-10.4); MONOCYTE # 0.5 10^3/ul (0.3-0.9); MONOCYTES % 12.2 % (0.0-11.0); NEUTROPHIL # 2.7 10^3/ul (1.6-7.5); NEUTROPHILS % 61.9 % (39.0-77.0); PLATELET COUNT 211 10^3/UL (140-415); RED BLOOD COUNT 3.39 10^6/ul (4.20-5.40); RED CELL DISTRIBUTION WIDTH 15.8 % (11.5-14.5); WHITE BLOOD COUNT 4.3 10^3/ul (4.8-10.8)
[2017-02-10] MEDS: PANTOPRAZOLE (EC) 40 MG TAB PO SCH (05:45)
[2017-02-10 05:57] LABS: CALCIUM 8.9 mg/dl (8.4-10.2); CREATININE 0.65 mg/dl (0.44-1.00); POTASSIUM 3.9 mmol/L (3.5-5.1)
[2017-02-10 08:00] VITALS: BP 110/59; RESP 18
[2017-02-10] MEDS: INSULIN ASPART [NOVOLOG] 3 ML PEN SC SCH ×4 (08:00→21:00)
[2017-02-10] MEDS: MYCOPHENOLATE 250 MG CAP PO SCH ×2 (08:19→20:44)
[2017-02-10] MEDS: FOLIC ACID 1 MG TAB PO SCH (08:20)
[2017-02-10] MEDS: ZYVOX 600 MG TAB PO SCH ×2 (08:20→20:43)
[2017-02-10] MEDS: TACROLIMUS 1 MG CAP PO SCH ×2 (08:20→20:45)
[2017-02-10] MEDS: METOPROLOL 50 MG TAB PO SCH ×2 (08:20→20:44)
[2017-02-10] MEDS: TOBRAMYCIN/DEXAMETH 2.5 ML OPH LEFT EYE SCH ×3 (08:20→20:42)
[2017-02-10] MEDS: GABAPENTIN 100 MG CAP PO SCH ×3 (08:20→20:45)
[2017-02-10] MEDS: CHOLECALCIFEROL 1,000 UNIT TAB PO SCH (08:20)
[2017-02-10] MEDS: BENAZEPRIL 10 MG TAB PO SCH ×2 (08:21→20:45)
[2017-02-10 09:21] VITALS: BP 102/55; PULSE 67
[2017-02-10 09:47] VITALS: RESP 12
[2017-02-10 14:00] VITALS: BP 122/61; RESP 16
--- NOTE | 2017-02-10 16:51 | CONS ---
Date/Time of Note Date/Time of Note DATE: 02/10/17 TIME: 16:42 Assessment/Plan Assessment/Plan Chief Complaint/Hosp Course SUBJECTIVE DATA: No events overnight. The patient is awake, looks comfortable, complaining of pain. She is afebrile. LABORATORY AND DIAGNOSTIC DATA: reviewed. ANTIMICROBIALS: The patient remains on doxycycline and meropenem. Rt foot cx ESBL PHYSICAL EXAMINATION: This is a fragile, well-developed, elderly woman, who is alert, in no distress. HEENT: Head is atraumatic and normocephalic. Sclerae are anicteric. Buccal mucosa is pink. NECK: Supple. LUNGS: Chest rise is symmetrical. Breath sounds are clear. HEART: S1, S2. ABDOMEN: Soft. Bowel sounds are present. EXTREMITIES: With bilateral foot gangrene. There is an open wound next to her little finger on the right with some drainage. ASSESSMENT: 1. Bilateral lower extremities gangrene secondary to severe peripheral arterial disease, failed debridement and revascularization procedures. 2. Diabetes. 3. History of kidney transplant in 2009, on immunosuppressive therapy. 4. Diabetes. 5. Hypertension. PLAN: The patient remains clinically unchanged. As per vascular note, the patient will require bilateral BKA or AKA. Cleared by cardiology for surgery. D/C doxy, change Meropenem to Invanz. F/U Vascular surgery Recommendations. Problems: Consultation Date/Type/Reason Admit Date/Time Dec 26, 2016 at 13:22 Initial Consult Date Chief Complaint/Hosp Course SUBJECTIVE DATA: No acute events. Patient looks comfortable. Denies fevers. Improved pain on the AKA Lt stump. VS: P67 R:18 T:97.9 SO2:100% Labs: reviewed. CBC stable. WBC- WNL ANTIMICROBIALS: Zyvox PO OBJECTIVE DATA: GENERAL: Chronically ill-appearing, elderly woman, who is awake, in no distress. HEENT: Head atraumatic, normocephalic. Sclerae anicteric. Buccal mucosa dry. NECK: Supple. CHEST: Rise symmetrical. Breath sounds diminished at the bases. HEART: S1, S2. ABDOMEN: Soft, bowel sounds present. EXTREMITIES: With left above-knee amputation. The right foot dressing intact. ASSESSMENT: 1. Bilateral lower extremities gangrene, status post left above- knee amputation. 2. Severe peripheral arterial disease, failed multiple revascularization procedures. 3. History of kidney transplant, remains on immunosuppressive therapy. 4. Resolved diarrhea, on empiric oral vancomycin. 5. Diabetes. 6. History of wvqqbodu-isifwfms-zxmu-lactamase urinary tract infection. 7. R foot gangrene with open wound==> cx + E coli ESBL==> treated PLAN: Patient remains stable. Zyvox PO abx, Daily wound care, pain management. F/u vascular and wound care rec-s Type of Consultation: id Referring Provider: LES GILLILAND Exam/Review of Systems Vital Signs Vitals Vital Signs Date Time Temp Pulse Resp B/P Pulse Ox O2 Delivery O2 Flow Rate FiO2 02/10/17 09:47 12 02/10/17 09:21 97.9 67 102/55 100 Room Air Intake and Output 02/09/17 02/09/17 02/10/17 15:00 23:00 07:00 Intake Total 940 ml 450 ml Balance 940 ml 450 ml Results Result Diagram: 02/10/17 0509 02/10/17 0509 Results 24 hrs Laboratory Tests Test 02/09/17 17:35 02/09/17 20:41 02/09/17 20:48 02/09/17 20:57 Bedside Glucose 92 94 White Blood Count 5.3 Red Blood Count 3.25 L Hemoglobin 9.1 L Hematocrit 28.1 L Mean Corpuscular Volume 86.5 Mean Corpuscular Hemoglobin 28.0 L Mean Corpuscular Hemoglobin Concent 32.4 Red Cell Distribution Width 15.8 H Platelet Count 185 Mean Platelet Volume 10.2 Neutrophils % 62.2 Lymphocytes % 20.4 Monocytes % 13.8 H Eosinophils % 2.8 Basophils % 0.4 Nucleated Red Blood Cells % 0.0 Neutrophils # 3.3 Lymphocytes # 1.1 Monocytes # 0.7 Eosinophils # 0.2 Basophils # 0.0 Nucleated Red Blood Cells # 0.0 Sodium Level 131 L Potassium Level 4.0 Chloride Level 100 Carbon Dioxide Level 25 Anion Gap 10 Blood Urea Nitrogen 12 Creatinine 0.67 Glucose Level 84 Calcium Level 9.0 Prothrombin Time 13.7 Prothrombin Time Ratio 1.1 INR International Normalized Ratio 1.05 Activated Partial Thromboplast Time 27.2 Test 02/10/17 05:09 02/10/17 08:18 02/10/17 12:03 White Blood Count 4.3 L Red Blood Count 3.39 L Hemoglobin 9.1 L Hematocrit 29.1 L Mean Corpuscular Volume 85.8 Mean Corpuscular Hemoglobin 26.8 L Mean Corpuscular Hemoglobin Concent 31.3 L Red Cell Distribution Width 15.8 H Platelet Count 211 Mean Platelet Volume 11.8 H Neutrophils % 61.9 Lymphocytes % 22.2 Monocytes % 12.2 H Eosinophils % 3.0 Basophils % 0.2 Nucleated Red Blood Cells % 0.0 Neutrophils # 2.7 Lymphocytes # 1.0 Monocytes # 0.5 Eosinophils # 0.1 Basophils # 0.0 Nucleated Red Blood Cells # 0.0 Sodium Level 135 Potassium Level 3.9 Chloride Level 102 Carbon Dioxide Level 24 Anion Gap 13 Blood Urea Nitrogen 12 Creatinine 0.65 Glucose Level 72 Calcium Level 8.9 Bedside Glucose 94 124 Medications Medications Current Medications Famotidine (Pepcid) 40 mg HS PO Last administered on 02/09/17 20:46; Admin Dose 40 MG; Start 12/26/16 at 21:00 Folic Acid (Folic Acid) 1 mg DAILY PO Last administered on 02/10/17 08:20; Admin Dose 1 MG; Start 12/27/16 at 09:00 Gabapentin (Neurontin) 100 mg TID PO Last administered on 02/10/17 12:04; Admin Dose 100 MG; Start 12/26/16 at 21:00 Mycophenolate Mofetil (Cellcept) 1,000 mg BID PO Last administered on 08:19; Admin Dose 1,000 MG; Start 12/26/16 at 21:00 Pantoprazole (Protonix Tab) 40 mg DAILY@06 PO Last administered on 02/10/17 05:45; Admin Dose 40 MG; Start 12/27/16 at 06:00 Diagnostic Test (Pha) (Accu-Chek) 1 ea 02 XX ; Start 12/27/16 at 02:00 Miscellaneous Information 1 ea NOTE XX ; Start 12/26/16 at 14:30 Glucose (Glutose) 15 gm Q15M PRN PO DECREASED GLUCOSE; Start 12/26/16 at 14:30 Glucose (Glutose) 22.5 gm Q15M PRN PO DECREASED GLUCOSE; Start 12/26/16 at 14:30 Dextrose (D50w Syringe) 25 ml Q15M PRN IV DECREASED GLUCOSE; Start 12/26/16 at 14:30 Dextrose (D50w Syringe) 50 ml Q15M PRN IV DECREASED GLUCOSE; Start 12/26/16 at 14:30 Glucagon (Glucagen) 1 mg Q15M PRN IM DECREASED GLUCOSE; Start 12/26/16 at 14:30 Glucose (Glutose) 15 gm Q15M PRN BUCCAL DECREASED GLUCOSE; Start 12/26/16 at 14: 30 Cholecalciferol (Vitamin D) 1,000 unit DAILY PO Last administered on 08:20; Admin Dose 1,000 UNIT; Start 12/28/16 at 09:00 Ondansetron HCl (Zofran Inj) 4 mg Q6H PRN IV NAUSEA AND/OR VOMITING Last administered on 01/15/17 09:50; Admin Dose 4 MG; Start 01/01/17 at 10:00 Haloperidol (Haldol) 2 mg Q4H PRN IM AGITATION/ANXIETY Last administered on 22:46; Admin Dose 2 MG; Start 01/08/17 at 01:30 Acetaminophen (Tylenol Tab) 650 mg Q6H PRN PO PAIN AND OR ELEVATED TEMP Last administered on 01/16/17 10:25; Admin Dose 650 MG; Start 01/08/17 at 22:30 Quetiapine Fumarate (Seroquel) 25 mg QHS PRN PO agitation/hallucinations Last administered on 01/09/17 22:15; Admin Dose 25 MG; Start 01/09/17 at 21:00 Morphine Sulfate (morphine) 2 mg Q8H PRN IV PAIN LEVEL 6-10 Last administered on 01/19/17 16:02; Admin Dose 2 MG; Start 01/11/17 at 14:00 Clonidine (Catapres) 0.1 mg Q6H PRN PO hypertension Last administered on 02:41; Admin Dose 0.1 MG; Start 01/14/17 at 02:30 Hydralazine HCl (Apresoline) 25 mg Q6H PRN IV ELEVATED SYSTOLIC BP Last administered on 01/14/17 07:04; Admin Dose 25 MG; Start 01/14/17 at 07:00 Insulin Glargine (Lantus) 5 unit DAILY@20 SC Last administered on 02/09/17 20 :50; Admin Dose 5 UNIT; Start 01/17/17 at 20:00 Tacrolimus (Prograf) 2 mg Q12 PO Last administered on 02/10/17 08:20; Admin Dose 2 MG; Start 01/18/17 at 09:00 IV Flush (NS 10 ml) 10 ml PRN PRN IV IV PROTOCOL Last administered on 11:54; Admin Dose 10 ML; Start 01/19/17 at 12:30 Acetaminophen/ Hydrocodone Bitart ([place] (5/325)) 1 tab Q8H PRN PO PAIN Last administered on 02/08/17 15:15; Admin Dose 1 TAB; Start 01/19/17 at 14:30 Metoprolol Tartrate (Lopressor) 50 mg BID PO Last administered on 02/09/17 08 :53; Admin Dose 50 MG; Start 01/23/17 at 21:00 Benazepril HCl (Lotensin) 10 mg BID PO Last administered on 02/09/17 20:49; Admin Dose 10 MG; Start 01/31/17 at 21:00 Linezolid (Zyvox) 600 mg BID PO Last administered on 02/10/17 08:20; Admin Dose 600 MG; Start 02/06/17 at 11:00 Tobramycin/ Dexamethasone (Tobradex Oph Drop) 2 drop TID LEFT EYE Last administered on 02/10/17 12:04; Admin Dose 2 DROP; Start 02/09/17 at 21:00 MEMO TORRES Feb 10, 2017 16:51
--- NOTE | 2017-02-10 17:22 | CONS ---
Date/Time of Note Date/Time of Note DATE: 02/10/17 TIME: 17:21 Assessment/Plan Assessment/Plan Additional Assessment/Plan 1. 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 h/o donor kidney transplant in 2009 at [facility], currently on immunosuppression with Prograf, CellCept 4. 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 History of hypertension. 6. History of diabetes mellitus. 7. History of previous left upper extremity arteriovenous fistula. 8. Hyponatremia due to hypovolemic hyponatremia post op 9. -CT chest+ abd+pelvis with and without contrast negative for mass/LAD/ Malignancy Plan: continue Current immunosuppression Prograf and cellcept, Cr 0.68,Electrolytes and Na normal today, Off IV Fluids now s/p Left AKA, off IV abx now, continue Lotensin for now ID following will continue to follow up on patient Consultation Date/Type/Reason Admit Date/Time Dec 26, 2016 at 13:22 Initial Consult Date 12/27/16 Type of Consultation: NEPHROLOGY Referring Provider: LES GILLILAND 24 HR Interval Summary Free Text/Dictation no acute events BP stable Exam/Review of Systems Vital Signs Vitals Vital Signs Date Time Temp Pulse Resp B/P Pulse Ox O2 Delivery O2 Flow Rate FiO2 02/10/17 09:47 12 02/10/17 09:21 97.9 67 102/55 100 Room Air Intake and Output 02/09/17 02/09/17 02/10/17 15:00 23:00 07:00 Intake Total 940 ml 450 ml Balance 940 ml 450 ml Exam GEN: fragile elderly woman who is awake in no distress. HEENT: Head atraumatic, normocephalic. Sclerae anicteric. NECK: Supple. CHEST: Rise symmetrical. Breath sounds clear. HEART: S1, S2. ABDOMEN: Soft, bowel sounds present. left BKA dressing clean Results Result Diagram: 02/10/17 0509 02/10/17 0509 Results 24 hrs Laboratory Tests Test 02/09/17 17:35 02/09/17 20:41 02/09/17 20:48 02/09/17 20:57 Bedside Glucose 92 94 White Blood Count 5.3 Red Blood Count 3.25 L Hemoglobin 9.1 L Hematocrit 28.1 L Mean Corpuscular Volume 86.5 Mean Corpuscular Hemoglobin 28.0 L Mean Corpuscular Hemoglobin Concent 32.4 Red Cell Distribution Width 15.8 H Platelet Count 185 Mean Platelet Volume 10.2 Neutrophils % 62.2 Lymphocytes % 20.4 Monocytes % 13.8 H Eosinophils % 2.8 Basophils % 0.4 Nucleated Red Blood Cells % 0.0 Neutrophils # 3.3 Lymphocytes # 1.1 Monocytes # 0.7 Eosinophils # 0.2 Basophils # 0.0 Nucleated Red Blood Cells # 0.0 Sodium Level 131 L Potassium Level 4.0 Chloride Level 100 Carbon Dioxide Level 25 Anion Gap 10 Blood Urea Nitrogen 12 Creatinine 0.67 Glucose Level 84 Calcium Level 9.0 Prothrombin Time 13.7 Prothrombin Time Ratio 1.1 INR International Normalized Ratio 1.05 Activated Partial Thromboplast Time 27.2 Test 02/10/17 05:09 02/10/17 08:18 02/10/17 12:03 White Blood Count 4.3 L Red Blood Count 3.39 L Hemoglobin 9.1 L Hematocrit 29.1 L Mean Corpuscular Volume 85.8 Mean Corpuscular Hemoglobin 26.8 L Mean Corpuscular Hemoglobin Concent 31.3 L Red Cell Distribution Width 15.8 H Platelet Count 211 Mean Platelet Volume 11.8 H Neutrophils % 61.9 Lymphocytes % 22.2 Monocytes % 12.2 H Eosinophils % 3.0 Basophils % 0.2 Nucleated Red Blood Cells % 0.0 Neutrophils # 2.7 Lymphocytes # 1.0 Monocytes # 0.5 Eosinophils # 0.1 Basophils # 0.0 Nucleated Red Blood Cells # 0.0 Sodium Level 135 Potassium Level 3.9 Chloride Level 102 Carbon Dioxide Level 24 Anion Gap 13 Blood Urea Nitrogen 12 Creatinine 0.65 Glucose Level 72 Calcium Level 8.9 Bedside Glucose 94 124 Medications Medications Current Medications Famotidine (Pepcid) 40 mg HS PO Last administered on 02/09/17 20:46; Admin Dose 40 MG; Start 12/26/16 at 21:00 Folic Acid (Folic Acid) 1 mg DAILY PO Last administered on 02/10/17 08:20; Admin Dose 1 MG; Start 12/27/16 at 09:00 Gabapentin (Neurontin) 100 mg TID PO Last administered on 02/10/17 12:04; Admin Dose 100 MG; Start 12/26/16 at 21:00 Mycophenolate Mofetil (Cellcept) 1,000 mg BID PO Last administered on 08:19; Admin Dose 1,000 MG; Start 12/26/16 at 21:00 Pantoprazole (Protonix Tab) 40 mg DAILY@06 PO Last administered on 02/10/17 05:45; Admin Dose 40 MG; Start 12/27/16 at 06:00 Diagnostic Test (Pha) (Accu-Chek) 1 ea 02 XX ; Start 12/27/16 at 02:00 Miscellaneous Information 1 ea NOTE XX ; Start 12/26/16 at 14:30 Glucose (Glutose) 15 gm Q15M PRN PO DECREASED GLUCOSE; Start 12/26/16 at 14:30 Glucose (Glutose) 22.5 gm Q15M PRN PO DECREASED GLUCOSE; Start 12/26/16 at 14:30 Dextrose (D50w Syringe) 25 ml Q15M PRN IV DECREASED GLUCOSE; Start 12/26/16 at 14:30 Dextrose (D50w Syringe) 50 ml Q15M PRN IV DECREASED GLUCOSE; Start 12/26/16 at 14:30 Glucagon (Glucagen) 1 mg Q15M PRN IM DECREASED GLUCOSE; Start 12/26/16 at 14:30 Glucose (Glutose) 15 gm Q15M PRN BUCCAL DECREASED GLUCOSE; Start 12/26/16 at 14: 30 Cholecalciferol (Vitamin D) 1,000 unit DAILY PO Last administered on 08:20; Admin Dose 1,000 UNIT; Start 12/28/16 at 09:00 Ondansetron HCl (Zofran Inj) 4 mg Q6H PRN IV NAUSEA AND/OR VOMITING Last administered on 01/15/17 09:50; Admin Dose 4 MG; Start 01/01/17 at 10:00 Haloperidol (Haldol) 2 mg Q4H PRN IM AGITATION/ANXIETY Last administered on 22:46; Admin Dose 2 MG; Start 01/08/17 at 01:30 Acetaminophen (Tylenol Tab) 650 mg Q6H PRN PO PAIN AND OR ELEVATED TEMP Last administered on 01/16/17 10:25; Admin Dose 650 MG; Start 01/08/17 at 22:30 Quetiapine Fumarate (Seroquel) 25 mg QHS PRN PO agitation/hallucinations Last administered on 01/09/17 22:15; Admin Dose 25 MG; Start 01/09/17 at 21:00 Morphine Sulfate (morphine) 2 mg Q8H PRN IV PAIN LEVEL 6-10 Last administered on 01/19/17 16:02; Admin Dose 2 MG; Start 01/11/17 at 14:00 Clonidine (Catapres) 0.1 mg Q6H PRN PO hypertension Last administered on 02:41; Admin Dose 0.1 MG; Start 01/14/17 at 02:30 Hydralazine HCl (Apresoline) 25 mg Q6H PRN IV ELEVATED SYSTOLIC BP Last administered on 01/14/17 07:04; Admin Dose 25 MG; Start 01/14/17 at 07:00 Insulin Glargine (Lantus) 5 unit DAILY@20 SC Last administered on 02/09/17 20 :50; Admin Dose 5 UNIT; Start 01/17/17 at 20:00 Tacrolimus (Prograf) 2 mg Q12 PO Last administered on 02/10/17 08:20; Admin Dose 2 MG; Start 01/18/17 at 09:00 IV Flush (NS 10 ml) 10 ml PRN PRN IV IV PROTOCOL Last administered on 11:54; Admin Dose 10 ML; Start 01/19/17 at 12:30 Acetaminophen/ Hydrocodone Bitart ([place] (5/325)) 1 tab Q8H PRN PO PAIN Last administered on 02/08/17 15:15; Admin Dose 1 TAB; Start 01/19/17 at 14:30 Metoprolol Tartrate (Lopressor) 50 mg BID PO Last administered on 02/09/17 08 :53; Admin Dose 50 MG; Start 01/23/17 at 21:00 Benazepril HCl (Lotensin) 10 mg BID PO Last administered on 02/09/17 20:49; Admin Dose 10 MG; Start 01/31/17 at 21:00 Linezolid (Zyvox) 600 mg BID PO Last administered on 02/10/17 08:20; Admin Dose 600 MG; Start 02/06/17 at 11:00 Tobramycin/ Dexamethasone (Tobradex Oph Drop) 2 drop TID LEFT EYE Last administered on 02/10/17t 12:04; Admin Dose 2 DROP; Start 02/09/17 at 21:00 RAMON KEMP MD Feb 10, 2017 17:22
--- NOTE | 2017-02-10 19:01 | CONS ---
Date/Time of Note Date/Time of Note DATE: 02/10/17 TIME: 18:57 Assessment/Plan Assessment/Plan Chief Complaint/Hosp Course IMP: 1.Ynb-qo-bnvjst test 10/2016 with no ischemia/only scar/NL EF. Negative trop x 3. 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 Encephalopathy-improved 7. Hyponatremia-improved Recc: -Continue asa/plavix -Continue benazepril/BB but were held today and if continue to be held will decrease doses -Local wound care -Continue abx's and f/u cx data -Continue immuonosuppresives -Follow volume status closely -awaiting placemment Problems: Consultation Date/Type/Reason Admit Date/Time Dec 26, 2016 at 13:22 Initial Consult Date 12/27/16 Type of Consultation: cardiology Reason for Consultation HTN Referring Provider: LES GILLILAND Exam/Review of Systems Vital Signs Vitals Vital Signs Date Time Temp Pulse Resp B/P Pulse Ox O2 Delivery O2 Flow Rate FiO2 02/10/17 09:47 12 02/10/17 09:21 97.9 67 102/55 100 Room Air Intake and Output 02/09/17 02/09/17 02/10/17 15:00 23:00 07:00 Intake Total 940 ml 450 ml Balance 940 ml 450 ml Exam Review of Systems: CONSTITUTIONAL: No fevers, chills. PULMONARY: No sob CARDIOVASCULAR: No chest pain/palpitations GASTROINTESTINAL: No nausea/vomiting. GENITOURINARY: No hematuria/dysuria. MUSCULOSKELETAL: MIld pain in foot. PSYCHIATRIC: The patient denies depression. NEUROLOGIC: No weakness Constitutional: alert, oriented Psych: no complaints Head: normocephalic ENMT: mucosa pink and moist Neck: jvd (9 cm water), supple Respiratory: clear to auscultation Cardiovascular: regular rate and rhythm Gastrointestinal: non-tender, soft Musculoskeletal: muscle weakness (generalized), other (s/p LE amputation) Extremities: pitting pedal edema (none) Neurological: other (No focal deficits) Results Result Diagram: 02/10/17 0509 02/10/17 0509 Results 24 hrs Laboratory Tests Test 02/09/17 20:41 02/09/17 20:48 02/09/17 20:57 02/10/17 05:09 Bedside Glucose 94 White Blood Count 5.3 4.3 L Red Blood Count 3.25 L 3.39 L Hemoglobin 9.1 L 9.1 L Hematocrit 28.1 L 29.1 L Mean Corpuscular Volume 86.5 85.8 Mean Corpuscular Hemoglobin 28.0 L 26.8 L Mean Corpuscular Hemoglobin Concent 32.4 31.3 L Red Cell Distribution Width 15.8 H 15.8 H Platelet Count 185 211 Mean Platelet Volume 10.2 11.8 H Neutrophils % 62.2 61.9 Lymphocytes % 20.4 22.2 Monocytes % 13.8 H 12.2 H Eosinophils % 2.8 3.0 Basophils % 0.4 0.2 Nucleated Red Blood Cells % 0.0 0.0 Neutrophils # 3.3 2.7 Lymphocytes # 1.1 1.0 Monocytes # 0.7 0.5 Eosinophils # 0.2 0.1 Basophils # 0.0 0.0 Nucleated Red Blood Cells # 0.0 0.0 Sodium Level 131 L 135 Potassium Level 4.0 3.9 Chloride Level 100 102 Carbon Dioxide Level 25 24 Anion Gap 10 13 Blood Urea Nitrogen 12 12 Creatinine 0.67 0.65 Glucose Level 84 72 Calcium Level 9.0 8.9 Prothrombin Time 13.7 Prothrombin Time Ratio 1.1 INR International Normalized Ratio 1.05 Activated Partial Thromboplast Time 27.2 Test 02/10/17 08:18 02/10/17 12:03 02/10/17 17:28 Bedside Glucose 94 124 122 Medications Medications Current Medications Famotidine (Pepcid) 40 mg HS PO Last administered on 02/09/17 20:46; Admin Dose 40 MG; Start 12/26/16 at 21:00 Folic Acid (Folic Acid) 1 mg DAILY PO Last administered on 02/10/17 08:20; Admin Dose 1 MG; Start 12/27/16 at 09:00 Gabapentin (Neurontin) 100 mg TID PO Last administered on 02/10/17 12:04; Admin Dose 100 MG; Start 12/26/16 at 21:00 Mycophenolate Mofetil (Cellcept) 1,000 mg BID PO Last administered on 08:19; Admin Dose 1,000 MG; Start 12/26/16 at 21:00 Pantoprazole (Protonix Tab) 40 mg DAILY@06 PO Last administered on 02/10/17 05:45; Admin Dose 40 MG; Start 12/27/16 at 06:00 Diagnostic Test (Pha) (Accu-Chek) 1 ea 02 XX ; Start 12/27/16 at 02:00 Miscellaneous Information 1 ea NOTE XX ; Start 12/26/16 at 14:30 Glucose (Glutose) 15 gm Q15M PRN PO DECREASED GLUCOSE; Start 12/26/16 at 14:30 Glucose (Glutose) 22.5 gm Q15M PRN PO DECREASED GLUCOSE; Start 12/26/16 at 14:30 Dextrose (D50w Syringe) 25 ml Q15M PRN IV DECREASED GLUCOSE; Start 12/26/16 at 14:30 Dextrose (D50w Syringe) 50 ml Q15M PRN IV DECREASED GLUCOSE; Start 12/26/16 at 14:30 Glucagon (Glucagen) 1 mg Q15M PRN IM DECREASED GLUCOSE; Start 12/26/16 at 14:30 Glucose (Glutose) 15 gm Q15M PRN BUCCAL DECREASED GLUCOSE; Start 12/26/16 at 14: 30 Cholecalciferol (Vitamin D) 1,000 unit DAILY PO Last administered on 08:20; Admin Dose 1,000 UNIT; Start 12/28/16 at 09:00 Ondansetron HCl (Zofran Inj) 4 mg Q6H PRN IV NAUSEA AND/OR VOMITING Last administered on 01/15/17 09:50; Admin Dose 4 MG; Start 01/01/17 at 10:00 Haloperidol (Haldol) 2 mg Q4H PRN IM AGITATION/ANXIETY Last administered on 22:46; Admin Dose 2 MG; Start 01/08/17 at 01:30 Acetaminophen (Tylenol Tab) 650 mg Q6H PRN PO PAIN AND OR ELEVATED TEMP Last administered on 01/16/17 10:25; Admin Dose 650 MG; Start 01/08/17 at 22:30 Quetiapine Fumarate (Seroquel) 25 mg QHS PRN PO agitation/hallucinations Last administered on 01/09/17 22:15; Admin Dose 25 MG; Start 01/09/17 at 21:00 Morphine Sulfate (morphine) 2 mg Q8H PRN IV PAIN LEVEL 6-10 Last administered on 01/19/17 16:02; Admin Dose 2 MG; Start 01/11/17 at 14:00 Clonidine (Catapres) 0.1 mg Q6H PRN PO hypertension Last administered on 02:41; Admin Dose 0.1 MG; Start 01/14/17 at 02:30 Hydralazine HCl (Apresoline) 25 mg Q6H PRN IV ELEVATED SYSTOLIC BP Last administered on 01/14/17 07:04; Admin Dose 25 MG; Start 01/14/17 at 07:00 Insulin Glargine (Lantus) 5 unit DAILY@20 SC Last administered on 02/09/17 20 :50; Admin Dose 5 UNIT; Start 01/17/17 at 20:00 Tacrolimus (Prograf) 2 mg Q12 PO Last administered on 02/10/17 08:20; Admin Dose 2 MG; Start 01/18/17 at 09:00 IV Flush (NS 10 ml) 10 ml PRN PRN IV IV PROTOCOL Last administered on 11:54; Admin Dose 10 ML; Start 01/19/17 at 12:30 Acetaminophen/ Hydrocodone Bitart ([place] (5/325)) 1 tab Q8H PRN PO PAIN Last administered on 02/08/17 15:15; Admin Dose 1 TAB; Start 01/19/17 at 14:30 Metoprolol Tartrate (Lopressor) 50 mg BID PO Last administered on 02/09/17 08 :53; Admin Dose 50 MG; Start 01/23/17 at 21:00 Benazepril HCl (Lotensin) 10 mg BID PO Last administered on 02/09/17 20:49; Admin Dose 10 MG; Start 01/31/17 at 21:00 Linezolid (Zyvox) 600 mg BID PO Last administered on 02/10/17 08:20; Admin Dose 600 MG; Start 02/06/17 at 11:00 Tobramycin/ Dexamethasone (Tobradex Oph Drop) 2 drop TID LEFT EYE Last administered on 02/10/17 12:04; Admin Dose 2 DROP; Start 02/09/17 at 21:00 TIMOTHY CORTES Feb 10, 2017 19:00
--- NOTE | 2017-02-10 19:10 | PN ---
Date/Time of Note Date/Time of Note DATE: 02/10/17 TIME: 19:05 Assessment/Plan VTE Prophylaxis VTE Prophylaxis Intervention: SCD's Lines/Catheters IV Catheter Type (from Nrs): PICC Line Central line still needed: Yes Urinary Cath still in place: No Assessment/Plan Chief Complaint/Hosp Course Patient is unable to get up the stairs, continue PT, awaits for SNIF placement. VRE in the wound , need authorization Zyvox, patient remains hemodynamically stable. Assessment/Plan - Acute encephalopathy, resolved. CT brain is negative for any acute pathology. 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 S/p left AKA 01/[address] Valencia, vascular surgery. - Diabetes mellitus type II. Continue Lantus and NovoLog. - History of kidney transplant in 2009, on immunosuppressive therapy. - Hypertension. Continue metoprolol, benazepril. 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 - Anemia of chronic kidney disease. Further recommendations based on clinical course. Plan of care discussed with Dr. Cohen Problems: Exam/Review of Systems Vital Signs Vitals Vital Signs Date Time Temp Pulse Resp B/P Pulse Ox O2 Delivery O2 Flow Rate FiO2 02/10/17 09:47 12 02/10/17 09:21 97.9 67 102/55 100 Room Air Intake and Output 02/09/17 02/09/17 02/10/17 15:00 23:00 07:00 Intake Total 940 ml 450 ml Balance 940 ml 450 ml Exam Constitutional: awake, alert Neck: supple Respiratory: clear to auscultation Cardiovascular: nl pulses Gastrointestinal: non-tender, soft Extremities: other (S/p LAKA, necrotic tissue) Results Result Diagram: 02/10/17 0509 02/10/17 0509 Results 24 hrs Laboratory Tests Test 02/09/17 20:41 02/09/17 20:48 02/09/17 20:57 02/10/17 05:09 Bedside Glucose 94 White Blood Count 5.3 4.3 L Red Blood Count 3.25 L 3.39 L Hemoglobin 9.1 L 9.1 L Hematocrit 28.1 L 29.1 L Mean Corpuscular Volume 86.5 85.8 Mean Corpuscular Hemoglobin 28.0 L 26.8 L Mean Corpuscular Hemoglobin Concent 32.4 31.3 L Red Cell Distribution Width 15.8 H 15.8 H Platelet Count 185 211 Mean Platelet Volume 10.2 11.8 H Neutrophils % 62.2 61.9 Lymphocytes % 20.4 22.2 Monocytes % 13.8 H 12.2 H Eosinophils % 2.8 3.0 Basophils % 0.4 0.2 Nucleated Red Blood Cells % 0.0 0.0 Neutrophils # 3.3 2.7 Lymphocytes # 1.1 1.0 Monocytes # 0.7 0.5 Eosinophils # 0.2 0.1 Basophils # 0.0 0.0 Nucleated Red Blood Cells # 0.0 0.0 Sodium Level 131 L 135 Potassium Level 4.0 3.9 Chloride Level 100 102 Carbon Dioxide Level 25 24 Anion Gap 10 13 Blood Urea Nitrogen 12 12 Creatinine 0.67 0.65 Glucose Level 84 72 Calcium Level 9.0 8.9 Prothrombin Time 13.7 Prothrombin Time Ratio 1.1 INR International Normalized Ratio 1.05 Activated Partial Thromboplast Time 27.2 Test 02/10/17 08:18 02/10/17 12:03 02/10/17 17:28 Bedside Glucose 94 124 122 Medications Medications Current Medications Famotidine (Pepcid) 40 mg HS PO Last administered on 02/09/17 20:46; Admin Dose 40 MG; Start 12/26/16 at 21:00 Folic Acid (Folic Acid) 1 mg DAILY PO Last administered on 02/10/17 08:20; Admin Dose 1 MG; Start 12/27/16 at 09:00 Gabapentin (Neurontin) 100 mg TID PO Last administered on 02/10/17 12:04; Admin Dose 100 MG; Start 12/26/16 at 21:00 Mycophenolate Mofetil (Cellcept) 1,000 mg BID PO Last administered on 08:19; Admin Dose 1,000 MG; Start 12/26/16 at 21:00 Pantoprazole (Protonix Tab) 40 mg DAILY@06 PO Last administered on 02/10/17 05:45; Admin Dose 40 MG; Start 12/27/16 at 06:00 Diagnostic Test (Pha) (Accu-Chek) 1 ea 02 XX ; Start 12/27/16 at 02:00 Miscellaneous Information 1 ea NOTE XX ; Start 12/26/16 at 14:30 Glucose (Glutose) 15 gm Q15M PRN PO DECREASED GLUCOSE; Start 12/26/16 at 14:30 Glucose (Glutose) 22.5 gm Q15M PRN PO DECREASED GLUCOSE; Start 12/26/16 at 14:30 Dextrose (D50w Syringe) 25 ml Q15M PRN IV DECREASED GLUCOSE; Start 12/26/16 at 14:30 Dextrose (D50w Syringe) 50 ml Q15M PRN IV DECREASED GLUCOSE; Start 12/26/16 at 14:30 Glucagon (Glucagen) 1 mg Q15M PRN IM DECREASED GLUCOSE; Start 12/26/16 at 14:30 Glucose (Glutose) 15 gm Q15M PRN BUCCAL DECREASED GLUCOSE; Start 12/26/16 at 14: 30 Cholecalciferol (Vitamin D) 1,000 unit DAILY PO Last administered on 08:20; Admin Dose 1,000 UNIT; Start 12/28/16 at 09:00 Ondansetron HCl (Zofran Inj) 4 mg Q6H PRN IV NAUSEA AND/OR VOMITING Last administered on 01/15/17 09:50; Admin Dose 4 MG; Start 01/01/17 at 10:00 Haloperidol (Haldol) 2 mg Q4H PRN IM AGITATION/ANXIETY Last administered on 22:46; Admin Dose 2 MG; Start 01/08/17 at 01:30 Acetaminophen (Tylenol Tab) 650 mg Q6H PRN PO PAIN AND OR ELEVATED TEMP Last administered on 01/16/17 10:25; Admin Dose 650 MG; Start 01/08/17 at 22:30 Quetiapine Fumarate (Seroquel) 25 mg QHS PRN PO agitation/hallucinations Last administered on 01/09/17 22:15; Admin Dose 25 MG; Start 01/09/17 at 21:00 Morphine Sulfate (morphine) 2 mg Q8H PRN IV PAIN LEVEL 6-10 Last administered on 01/19/17 16:02; Admin Dose 2 MG; Start 01/11/17 at 14:00 Clonidine (Catapres) 0.1 mg Q6H PRN PO hypertension Last administered on 02:41; Admin Dose 0.1 MG; Start 01/14/17 at 02:30 Hydralazine HCl (Apresoline) 25 mg Q6H PRN IV ELEVATED SYSTOLIC BP Last administered on 01/14/17 07:04; Admin Dose 25 MG; Start 01/14/17 at 07:00 Insulin Glargine (Lantus) 5 unit DAILY@20 SC Last administered on 02/09/17 20 :50; Admin Dose 5 UNIT; Start 01/17/17 at 20:00 Tacrolimus (Prograf) 2 mg Q12 PO Last administered on 02/10/17 08:20; Admin Dose 2 MG; Start 01/18/17 at 09:00 IV Flush (NS 10 ml) 10 ml PRN PRN IV IV PROTOCOL Last administered on 11:54; Admin Dose 10 ML; Start 01/19/17 at 12:30 Acetaminophen/ Hydrocodone Bitart ([place] (5/325)) 1 tab Q8H PRN PO PAIN Last administered on 02/08/17 15:15; Admin Dose 1 TAB; Start 01/19/17 at 14:30 Metoprolol Tartrate (Lopressor) 50 mg BID PO Last administered on 02/09/17 08 :53; Admin Dose 50 MG; Start 01/23/17 at 21:00 Benazepril HCl (Lotensin) 10 mg BID PO Last administered on 02/09/17 20:49; Admin Dose 10 MG; Start 01/31/17 at 21:00 Linezolid (Zyvox) 600 mg BID PO Last administered on 02/10/17 08:20; Admin Dose 600 MG; Start 02/06/17 at 11:00 Tobramycin/ Dexamethasone (Tobradex Oph Drop) 2 drop TID LEFT EYE Last administered on 02/10/17 12:04; Admin Dose 2 DROP; Start 02/09/17 at 21:00 LES GILLILAND Feb 10, 2017 19:10
[2017-02-10] MEDS: INSULIN GLARGINE [LANtus] 3 ML PEN SC SCH (20:00)
[2017-02-10 20:30] VITALS: BP 118/59; RESP 17
[2017-02-10] MEDS: FAMOTIDINE 20 MG TAB PO SCH (20:45)
[2017-02-11] MEDS: ACCU-CHEK XX SCH (02:00)
[2017-02-11 02:15] VITALS: BP 128/59; RESP 17
[2017-02-11] MEDS: PANTOPRAZOLE (EC) 40 MG TAB PO SCH (05:31)
[2017-02-11 05:52] LABS: BASOPHILS % 0.2 % (0.0-2.0); EOSINOPHILS # 0.1 10^3/ul (0.0-0.5); EOSINOPHILS % 2.3 % (0.0-7.0); HEMATOCRIT 30.4 % (37.0-47.0); HEMOGLOBIN 9.9 g/dl (12.0-16.0); LYMPHOCYTES % 18.4 % (15.0-51.0); MEAN CORPUSCULAR HEMOGLOBIN 28.2 pg (29.0-33.0); MEAN CORPUSCULAR HGB CONC 32.6 g/dl (32.0-37.0); MEAN CORPUSCULAR VOLUME 86.6 fl (82.0-101.0); MEAN PLATELET VOLUME 11.8 fl (7.4-10.4); MONOCYTE # 0.7 10^3/ul (0.3-0.9); MONOCYTES % 13.9 % (0.0-11.0); NEUTROPHIL # 3.5 10^3/ul (1.6-7.5); PLATELET COUNT 208 10^3/UL (140-415); RED BLOOD COUNT 3.51 10^6/ul (4.20-5.40); RED CELL DISTRIBUTION WIDTH 15.7 % (11.5-14.5); WHITE BLOOD COUNT 5.3 10^3/ul (4.8-10.8)
[2017-02-11 06:18] LABS: CALCIUM 9.3 mg/dl (8.4-10.2); CREATININE 0.67 mg/dl (0.44-1.00); POTASSIUM 4.4 mmol/L (3.5-5.1)
[2017-02-11 07:51] VITALS: BP 114/56; RESP 16
[2017-02-11] MEDS: INSULIN ASPART [NOVOLOG] 3 ML PEN SC SCH ×4 (08:00→20:48)
[2017-02-11] MEDS: TOBRAMYCIN/DEXAMETH 2.5 ML OPH LEFT EYE SCH ×3 (08:49→20:39)
[2017-02-11] MEDS: CHOLECALCIFEROL 1,000 UNIT TAB PO SCH (08:50)
[2017-02-11] MEDS: TACROLIMUS 1 MG CAP PO SCH ×2 (08:50→20:42)
[2017-02-11] MEDS: MYCOPHENOLATE 250 MG CAP PO SCH ×2 (08:50→20:39)
[2017-02-11] MEDS: ZYVOX 600 MG TAB PO SCH ×2 (08:51→20:41)
[2017-02-11] MEDS: FOLIC ACID 1 MG TAB PO SCH (08:51)
[2017-02-11] MEDS: METOPROLOL 50 MG TAB PO SCH ×2 (08:51→20:47)
[2017-02-11] MEDS: GABAPENTIN 100 MG CAP PO SCH ×3 (08:52→20:42)
[2017-02-11] MEDS: BENAZEPRIL 10 MG TAB PO SCH ×2 (08:52→20:47)
--- NOTE | 2017-02-11 10:02 | CONS ---
Date/Time of Note Date/Time of Note DATE: 02/11/17 TIME: 10:01 Assessment/Plan Assessment/Plan Additional Assessment/Plan 1.Gog-bk-ekzndq test 10/2016 with no ischemia/only scar/NL EF. Negative trop x 3. 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 NO CP now. 2.HTN-now toleratig anti-hypertensives as lower doses - stable overall- will monitpr clinically. 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 4.DM - on meds, keep euglycemic 5.Anemia - H/H stale, no bleed 6. Encephalopathy - much improved -now alert and oriented Consultation Date/Type/Reason Admit Date/Time Dec 26, 2016 at 13:22 Initial Consult Date 12/27/16 Type of Consultation: cardiology Referring Provider: LES GILLILAND 24 HR Interval Summary Free Text/Dictation NO acute events - improved fluid status. ROS: No fever, no chills, no nausea, no vomiting, no diarrhea/constipation No recent weight changes No chest pain, no PND, no orthopnea No dizziness, blurred vision No thirst, no heat or cold intolerance Exam/Review of Systems Vital Signs Vitals Vital Signs Date Time Temp Pulse Resp B/P Pulse Ox O2 Delivery O2 Flow Rate FiO2 02/11/17 07:51 97.6 69 16 114/56 100 02/10/17 09:21 Room Air Intake and Output 02/10/17 02/10/17 02/11/17 15:00 23:00 07:00 Intake Total 680 ml 350 ml Balance 680 ml 350 ml Exam General: WN/WD/NAD, AOx 3 HEENT: Unicetric/atraumatic/EOMI (follows commands) NECK: JVD elevated, no thyromegaly Lymph: no lymphadenopathy HEART: regular with no S3, II/ systolic murmur at apex LUNGS: Coarse sounds ABD: soft, NT, ND, +BS : Intact Neuro: non focal SKIN: chronic changes EXT: wounds post op Results Result Diagram: 02/11/17 0526 02/11/17 0526 Results 24 hrs Laboratory Tests Test 02/10/17 12:03 02/10/17 17:28 02/10/17 20:41 02/11/17 05:26 Bedside Glucose 124 122 97 White Blood Count 5.3 # Red Blood Count 3.51 L Hemoglobin 9.9 L Hematocrit 30.4 L Mean Corpuscular Volume 86.6 Mean Corpuscular Hemoglobin 28.2 L Mean Corpuscular Hemoglobin Concent 32.6 Red Cell Distribution Width 15.7 H Platelet Count 208 Mean Platelet Volume 11.8 H Neutrophils % 65.0 Lymphocytes % 18.4 Monocytes % 13.9 H Eosinophils % 2.3 Basophils % 0.2 Nucleated Red Blood Cells % 0.0 Neutrophils # 3.5 Lymphocytes # 1.0 Monocytes # 0.7 Eosinophils # 0.1 Basophils # 0.0 Nucleated Red Blood Cells # 0.0 Sodium Level 134 L Potassium Level 4.4 Chloride Level 101 Carbon Dioxide Level 23 Anion Gap 14 Blood Urea Nitrogen 12 Creatinine 0.67 Glucose Level 79 Calcium Level 9.3 Test 02/11/17 08:47 Bedside Glucose 88 Medications Medications Current Medications Famotidine (Pepcid) 40 mg HS PO Last administered on 02/10/17 20:45; Admin Dose 40 MG; Start 12/26/16 at 21:00 Folic Acid (Folic Acid) 1 mg DAILY PO Last administered on 02/11/17 08:51; Admin Dose 1 MG; Start 12/27/16 at 09:00 Gabapentin (Neurontin) 100 mg TID PO Last administered on 02/11/17 08:52; Admin Dose 100 MG; Start 12/26/16 at 21:00 Mycophenolate Mofetil (Cellcept) 1,000 mg BID PO Last administered on 08:50; Admin Dose 1,000 MG; Start 12/26/16 at 21:00 Pantoprazole (Protonix Tab) 40 mg DAILY@06 PO Last administered on 02/11/17 05:31; Admin Dose 40 MG; Start 12/27/16 at 06:00 Diagnostic Test (Pha) (Accu-Chek) 1 ea 02 XX ; Start 12/27/16 at 02:00 Miscellaneous Information 1 ea NOTE XX ; Start 12/26/16 at 14:30 Glucose (Glutose) 15 gm Q15M PRN PO DECREASED GLUCOSE; Start 12/26/16 at 14:30 Glucose (Glutose) 22.5 gm Q15M PRN PO DECREASED GLUCOSE; Start 12/26/16 at 14:30 Dextrose (D50w Syringe) 25 ml Q15M PRN IV DECREASED GLUCOSE; Start 12/26/16 at 14:30 Dextrose (D50w Syringe) 50 ml Q15M PRN IV DECREASED GLUCOSE; Start 12/26/16 at 14:30 Glucagon (Glucagen) 1 mg Q15M PRN IM DECREASED GLUCOSE; Start 12/26/16 at 14:30 Glucose (Glutose) 15 gm Q15M PRN BUCCAL DECREASED GLUCOSE; Start 12/26/16 at 14: 30 Cholecalciferol (Vitamin D) 1,000 unit DAILY PO Last administered on 08:50; Admin Dose 1,000 UNIT; Start 12/28/16 at 09:00 Ondansetron HCl (Zofran Inj) 4 mg Q6H PRN IV NAUSEA AND/OR VOMITING Last administered on 01/15/17 09:50; Admin Dose 4 MG; Start 01/01/17 at 10:00 Haloperidol (Haldol) 2 mg Q4H PRN IM AGITATION/ANXIETY Last administered on 22:46; Admin Dose 2 MG; Start 01/08/17 at 01:30 Acetaminophen (Tylenol Tab) 650 mg Q6H PRN PO PAIN AND OR ELEVATED TEMP Last administered on 01/16/17 10:25; Admin Dose 650 MG; Start 01/08/17 at 22:30 Quetiapine Fumarate (Seroquel) 25 mg QHS PRN PO agitation/hallucinations Last administered on 01/09/17 22:15; Admin Dose 25 MG; Start 01/09/17 at 21:00 Morphine Sulfate (morphine) 2 mg Q8H PRN IV PAIN LEVEL 6-10 Last administered on 01/19/17 16:02; Admin Dose 2 MG; Start 01/11/17 at 14:00 Clonidine (Catapres) 0.1 mg Q6H PRN PO hypertension Last administered on 02:41; Admin Dose 0.1 MG; Start 01/14/17 at 02:30 Hydralazine HCl (Apresoline) 25 mg Q6H PRN IV ELEVATED SYSTOLIC BP Last administered on 01/14/17 07:04; Admin Dose 25 MG; Start 01/14/17 at 07:00 Insulin Glargine (Lantus) 5 unit DAILY@20 SC Last administered on 02/09/17 20 :50; Admin Dose 5 UNIT; Start 01/17/17 at 20:00 Tacrolimus (Prograf) 2 mg Q12 PO Last administered on 02/11/17 08:50; Admin Dose 2 MG; Start 01/18/17 at 09:00 IV Flush (NS 10 ml) 10 ml PRN PRN IV IV PROTOCOL Last administered on 11:54; Admin Dose 10 ML; Start 01/19/17 at 12:30 Acetaminophen/ Hydrocodone Bitart ([place] (5/325)) 1 tab Q8H PRN PO PAIN Last administered on 02/08/17 15:15; Admin Dose 1 TAB; Start 01/19/17 at 14:30 Metoprolol Tartrate (Lopressor) 50 mg BID PO Last administered on 02/10/17 20 :44; Admin Dose 50 MG; Start 01/23/17 at 21:00 Benazepril HCl (Lotensin) 10 mg BID PO Last administered on 02/11/17 08:52; Admin Dose 10 MG; Start 01/31/17 at 21:00 Linezolid (Zyvox) 600 mg BID PO Last administered on 02/11/17 08:51; Admin Dose 600 MG; Start 02/06/17 at 11:00 Tobramycin/ Dexamethasone (Tobradex Oph Drop) 2 drop TID LEFT EYE Last administered on 02/11/17 08:49; Admin Dose 2 DROP; Start 02/09/17 at 21:00 MIRELLA MOSER MD Feb 11, 2017 10:02
--- NOTE | 2017-02-11 14:04 | CONS ---
Date/Time of Note Date/Time of Note DATE: 02/11/17 TIME: 14:03 Consult Date/Type/Reason Admit Date/Time Dec 26, 2016 at 13:22 Initial Consult Date 12/27/16 Type of Consultation: id Ordering Provider: LES GILLILAND Objective Vital Signs Date Time Temp Pulse Resp B/P Pulse Ox O2 Delivery O2 Flow Rate FiO2 02/11/17 07:51 97.6 69 16 114/56 100 02/10/17 09:21 Room Air Intake and Output 02/10/17 02/10/17 02/11/17 15:00 23:00 07:00 Intake Total 680 ml 350 ml Balance 680 ml 350 ml Results/Medications Result Diagram: 02/11/1752502/11/17525 Results 24 hrs Laboratory Tests Test 02/10/17 17:28 02/10/17 20:41 02/11/17 05:26 02/11/17 08:47 Bedside Glucose 122 97 88 White Blood Count 5.3 # Red Blood Count 3.51 L Hemoglobin 9.9 L Hematocrit 30.4 L Mean Corpuscular Volume 86.6 Mean Corpuscular Hemoglobin 28.2 L Mean Corpuscular Hemoglobin Concent 32.6 Red Cell Distribution Width 15.7 H Platelet Count 208 Mean Platelet Volume 11.8 H Neutrophils % 65.0 Lymphocytes % 18.4 Monocytes % 13.9 H Eosinophils % 2.3 Basophils % 0.2 Nucleated Red Blood Cells % 0.0 Neutrophils # 3.5 Lymphocytes # 1.0 Monocytes # 0.7 Eosinophils # 0.1 Basophils # 0.0 Nucleated Red Blood Cells # 0.0 Sodium Level 134 L Potassium Level 4.4 Chloride Level 101 Carbon Dioxide Level 23 Anion Gap 14 Blood Urea Nitrogen 12 Creatinine 0.67 Glucose Level 79 Calcium Level 9.3 Test 02/11/17 12:19 Bedside Glucose 127 Medications Current Medications Famotidine (Pepcid) 40 mg HS PO Last administered on 02/10/17 20:45; Admin Dose 40 MG; Start 12/26/16 at 21:00 Folic Acid (Folic Acid) 1 mg DAILY PO Last administered on 02/11/17 08:51; Admin Dose 1 MG; Start 12/27/16 at 09:00 Gabapentin (Neurontin) 100 mg TID PO Last administered on 02/11/17 12:21; Admin Dose 100 MG; Start 12/26/16 at 21:00 Mycophenolate Mofetil (Cellcept) 1,000 mg BID PO Last administered on 08:50; Admin Dose 1,000 MG; Start 12/26/16 at 21:00 Pantoprazole (Protonix Tab) 40 mg DAILY@06 PO Last administered on 02/11/17 05:31; Admin Dose 40 MG; Start 12/27/16 at 06:00 Diagnostic Test (Pha) (Accu-Chek) 1 ea 02 XX ; Start 12/27/16 at 02:00 Miscellaneous Information 1 ea NOTE XX ; Start 12/26/16 at 14:30 Glucose (Glutose) 15 gm Q15M PRN PO DECREASED GLUCOSE; Start 12/26/16 at 14:30 Glucose (Glutose) 22.5 gm Q15M PRN PO DECREASED GLUCOSE; Start 12/26/16 at 14:30 Dextrose (D50w Syringe) 25 ml Q15M PRN IV DECREASED GLUCOSE; Start 12/26/16 at 14:30 Dextrose (D50w Syringe) 50 ml Q15M PRN IV DECREASED GLUCOSE; Start 12/26/16 at 14:30 Glucagon (Glucagen) 1 mg Q15M PRN IM DECREASED GLUCOSE; Start 12/26/16 at 14:30 Glucose (Glutose) 15 gm Q15M PRN BUCCAL DECREASED GLUCOSE; Start 12/26/16 at 14: 30 Cholecalciferol (Vitamin D) 1,000 unit DAILY PO Last administered on 08:50; Admin Dose 1,000 UNIT; Start 12/28/16 at 09:00 Ondansetron HCl (Zofran Inj) 4 mg Q6H PRN IV NAUSEA AND/OR VOMITING Last administered on 01/15/17 09:50; Admin Dose 4 MG; Start 01/01/17 at 10:00 Haloperidol (Haldol) 2 mg Q4H PRN IM AGITATION/ANXIETY Last administered on 22:46; Admin Dose 2 MG; Start 01/08/17 at 01:30 Acetaminophen (Tylenol Tab) 650 mg Q6H PRN PO PAIN AND OR ELEVATED TEMP Last administered on 01/16/17 10:25; Admin Dose 650 MG; Start 01/08/17 at 22:30 Quetiapine Fumarate (Seroquel) 25 mg QHS PRN PO agitation/hallucinations Last administered on 01/09/17 22:15; Admin Dose 25 MG; Start 01/09/17 at 21:00 Morphine Sulfate (morphine) 2 mg Q8H PRN IV PAIN LEVEL 6-10 Last administered on 01/19/17 16:02; Admin Dose 2 MG; Start 01/11/17 at 14:00 Clonidine (Catapres) 0.1 mg Q6H PRN PO hypertension Last administered on 02:41; Admin Dose 0.1 MG; Start 01/14/17 at 02:30 Hydralazine HCl (Apresoline) 25 mg Q6H PRN IV ELEVATED SYSTOLIC BP Last administered on 01/14/17 07:04; Admin Dose 25 MG; Start 01/14/17 at 07:00 Insulin Glargine (Lantus) 5 unit DAILY@20 SC Last administered on 02/09/17 20 :50; Admin Dose 5 UNIT; Start 01/17/17 at 20:00 Tacrolimus (Prograf) 2 mg Q12 PO Last administered on 02/11/17 08:50; Admin Dose 2 MG; Start 01/18/17 at 09:00 IV Flush (NS 10 ml) 10 ml PRN PRN IV IV PROTOCOL Last administered on 11:54; Admin Dose 10 ML; Start 01/19/17 at 12:30 Acetaminophen/ Hydrocodone Bitart ([place] (5/325)) 1 tab Q8H PRN PO PAIN Last administered on 02/08/17 15:15; Admin Dose 1 TAB; Start 01/19/17 at 14:30 Metoprolol Tartrate (Lopressor) 50 mg BID PO Last administered on 02/10/17 20 :44; Admin Dose 50 MG; Start 01/23/17 at 21:00 Benazepril HCl (Lotensin) 10 mg BID PO Last administered on 02/11/17 08:52; Admin Dose 10 MG; Start 01/31/17 at 21:00 Linezolid (Zyvox) 600 mg BID PO Last administered on 02/11/17 08:51; Admin Dose 600 MG; Start 02/06/17 at 11:00 Tobramycin/ Dexamethasone (Tobradex Oph Drop) 2 drop TID LEFT EYE Last administered on 02/11/17t 12:20; Admin Dose 2 DROP; Start 02/09/17 at 21:00 Assessment/Plan Chief Complaint/Hosp Course SUBJECTIVE DATA: No acute events. Patient is alert, looks comfortable. No fevers. ANTIMICROBIALS: Zyvox #6 OBJECTIVE DATA: GENERAL: Chronically ill-appearing, elderly woman, who is awake, in no distress. HEENT: Head atraumatic, normocephalic. Sclerae anicteric. Buccal mucosa dry. NECK: Supple. CHEST: Rise symmetrical. Breath sounds diminished at the bases. HEART: S1, S2. ABDOMEN: Soft, bowel sounds present. EXTREMITIES: With left stump dsg intact. The right foot dry necrotic wound ASSESSMENT: 1. 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 2. Severe peripheral arterial disease, failed multiple revascularization procedures. 3. History of kidney transplant, remains on immunosuppressive therapy. 4. Resolved diarrhea, on empiric oral vancomycin. 5. Diabetes. 6. History of euyiroxq-xdwsuafh-hcpb-lactamase urinary tract infection. 7. R foot gangrene with open wound==> cx + E coli ESBL==> treated PLAN: Patient remains stable. Continue Zyvox, will discuss with vascular surgery further plan of care [facility] staff Problems: JACQUES HUERTA NP Feb 11, 2017 14:04
[2017-02-11 14:35] VITALS: BP 125/63; RESP 18
--- NOTE | 2017-02-11 17:01 | CONS ---
Date/Time of Note Date/Time of Note DATE: 02/11/17 TIME: 17:00 Assessment/Plan Assessment/Plan Additional Assessment/Plan 1. 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 h/o donor kidney transplant in 2009 at [facility], currently on immunosuppression with Prograf, CellCept 4. 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 History of hypertension. 6. History of diabetes mellitus. 7. History of previous left upper extremity arteriovenous fistula. 8. Hyponatremia due to hypovolemic hyponatremia post op 9. -CT chest+ abd+pelvis with and without contrast negative for mass/LAD/ Malignancy Plan: continue Current immunosuppression Prograf and cellcept, Cr 0.67,Electrolytes and Na normal today, Off IV Fluids now s/p Left AKA, off IV abx now, continue Lotensin ID following will continue to follow up on patient Consultation Date/Type/Reason Admit Date/Time Dec 26, 2016 at 13:22 Initial Consult Date 12/27/16 Type of Consultation: NEPHROLOGY Referring Provider: LES GILLILAND Exam/Review of Systems Vital Signs Vitals Vital Signs Date Time Temp Pulse Resp B/P Pulse Ox O2 Delivery O2 Flow Rate FiO2 02/11/17 14:35 97.9 70 18 125/63 100 02/10/17 09:21 Room Air Intake and Output 02/10/17 02/10/17 02/11/17 15:00 23:00 07:00 Intake Total 680 ml 350 ml Balance 680 ml 350 ml Exam GEN: fragile elderly woman who is awake in no distress. HEENT: Head atraumatic, normocephalic. Sclerae anicteric. NECK: Supple. CHEST: Rise symmetrical. Breath sounds clear. HEART: S1, S2. ABDOMEN: Soft, bowel sounds present. left BKA dressing clean Results Result Diagram: 02/11/1752502/11/17525 Results 24 hrs Laboratory Tests Test 02/10/17 17:28 02/10/17 20:41 02/11/17 05:26 02/11/17 08:47 Bedside Glucose 122 97 88 White Blood Count 5.3 # Red Blood Count 3.51 L Hemoglobin 9.9 L Hematocrit 30.4 L Mean Corpuscular Volume 86.6 Mean Corpuscular Hemoglobin 28.2 L Mean Corpuscular Hemoglobin Concent 32.6 Red Cell Distribution Width 15.7 H Platelet Count 208 Mean Platelet Volume 11.8 H Neutrophils % 65.0 Lymphocytes % 18.4 Monocytes % 13.9 H Eosinophils % 2.3 Basophils % 0.2 Nucleated Red Blood Cells % 0.0 Neutrophils # 3.5 Lymphocytes # 1.0 Monocytes # 0.7 Eosinophils # 0.1 Basophils # 0.0 Nucleated Red Blood Cells # 0.0 Sodium Level 134 L Potassium Level 4.4 Chloride Level 101 Carbon Dioxide Level 23 Anion Gap 14 Blood Urea Nitrogen 12 Creatinine 0.67 Glucose Level 79 Calcium Level 9.3 Test 02/11/17 12:19 Bedside Glucose 127 Medications Medications Current Medications Famotidine (Pepcid) 40 mg HS PO Last administered on 02/10/17 20:45; Admin Dose 40 MG; Start 12/26/16 at 21:00 Folic Acid (Folic Acid) 1 mg DAILY PO Last administered on 02/11/17 08:51; Admin Dose 1 MG; Start 12/27/16 at 09:00 Gabapentin (Neurontin) 100 mg TID PO Last administered on 02/11/17 12:21; Admin Dose 100 MG; Start 12/26/16 at 21:00 Mycophenolate Mofetil (Cellcept) 1,000 mg BID PO Last administered on 08:50; Admin Dose 1,000 MG; Start 12/26/16 at 21:00 Pantoprazole (Protonix Tab) 40 mg DAILY@06 PO Last administered on 02/11/17 05:31; Admin Dose 40 MG; Start 12/27/16 at 06:00 Diagnostic Test (Pha) (Accu-Chek) 1 ea 02 XX ; Start 12/27/16 at 02:00 Miscellaneous Information 1 ea NOTE XX ; Start 12/26/16 at 14:30 Glucose (Glutose) 15 gm Q15M PRN PO DECREASED GLUCOSE; Start 12/26/16 at 14:30 Glucose (Glutose) 22.5 gm Q15M PRN PO DECREASED GLUCOSE; Start 12/26/16 at 14:30 Dextrose (D50w Syringe) 25 ml Q15M PRN IV DECREASED GLUCOSE; Start 12/26/16 at 14:30 Dextrose (D50w Syringe) 50 ml Q15M PRN IV DECREASED GLUCOSE; Start 12/26/16 at 14:30 Glucagon (Glucagen) 1 mg Q15M PRN IM DECREASED GLUCOSE; Start 12/26/16 at 14:30 Glucose (Glutose) 15 gm Q15M PRN BUCCAL DECREASED GLUCOSE; Start 12/26/16 at 14: 30 Cholecalciferol (Vitamin D) 1,000 unit DAILY PO Last administered on 08:50; Admin Dose 1,000 UNIT; Start 12/28/16 at 09:00 Ondansetron HCl (Zofran Inj) 4 mg Q6H PRN IV NAUSEA AND/OR VOMITING Last administered on 01/15/17 09:50; Admin Dose 4 MG; Start 01/01/17 at 10:00 Haloperidol (Haldol) 2 mg Q4H PRN IM AGITATION/ANXIETY Last administered on 22:46; Admin Dose 2 MG; Start 01/08/17 at 01:30 Acetaminophen (Tylenol Tab) 650 mg Q6H PRN PO PAIN AND OR ELEVATED TEMP Last administered on 01/16/17 10:25; Admin Dose 650 MG; Start 01/08/17 at 22:30 Quetiapine Fumarate (Seroquel) 25 mg QHS PRN PO agitation/hallucinations Last administered on 01/09/17 22:15; Admin Dose 25 MG; Start 01/09/17 at 21:00 Morphine Sulfate (morphine) 2 mg Q8H PRN IV PAIN LEVEL 6-10 Last administered on 01/19/17 16:02; Admin Dose 2 MG; Start 01/11/17 at 14:00 Clonidine (Catapres) 0.1 mg Q6H PRN PO hypertension Last administered on 02:41; Admin Dose 0.1 MG; Start 01/14/17 at 02:30 Hydralazine HCl (Apresoline) 25 mg Q6H PRN IV ELEVATED SYSTOLIC BP Last administered on 01/14/17 07:04; Admin Dose 25 MG; Start 01/14/17 at 07:00 Insulin Glargine (Lantus) 5 unit DAILY@20 SC Last administered on 02/09/17 20 :50; Admin Dose 5 UNIT; Start 01/17/17 at 20:00 Tacrolimus (Prograf) 2 mg Q12 PO Last administered on 02/11/17 08:50; Admin Dose 2 MG; Start 01/18/17 at 09:00 IV Flush (NS 10 ml) 10 ml PRN PRN IV IV PROTOCOL Last administered on 11:54; Admin Dose 10 ML; Start 01/19/17 at 12:30 Acetaminophen/ Hydrocodone Bitart ([place] (5/325)) 1 tab Q8H PRN PO PAIN Last administered on 02/08/17 15:15; Admin Dose 1 TAB; Start 01/19/17 at 14:30 Metoprolol Tartrate (Lopressor) 50 mg BID PO Last administered on 02/10/17 20 :44; Admin Dose 50 MG; Start 01/23/17 at 21:00 Benazepril HCl (Lotensin) 10 mg BID PO Last administered on 02/11/17 08:52; Admin Dose 10 MG; Start 01/31/17 at 21:00 Linezolid (Zyvox) 600 mg BID PO Last administered on 02/11/17 08:51; Admin Dose 600 MG; Start 02/06/17 at 11:00 Tobramycin/ Dexamethasone (Tobradex Oph Drop) 2 drop TID LEFT EYE Last administered on 02/11/17 12:20; Admin Dose 2 DROP; Start 02/09/17 at 21:00 RAMON KEMP MD Feb 11, 2017 17:01
--- NOTE | 2017-02-11 17:36 | PN ---
Date/Time of Note Date/Time of Note DATE: 02/11/17 TIME: 17:35 Assessment/Plan VTE Prophylaxis VTE Prophylaxis Intervention: SCD's Lines/Catheters IV Catheter Type (from Nrs): PICC Line Central line still needed: Yes Urinary Cath still in place: No Assessment/Plan Chief Complaint/Hosp Course Patient is unable to get up the stairs, continue PT, awaits for SNIF placement. VRE in the wound , need authorization Zyvox. Assessment/Plan - Acute encephalopathy, resolved. CT brain is negative for any acute pathology. 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 S/p left AKA 01/[address] Valencia, vascular surgery. - Diabetes mellitus type II. Continue Lantus and NovoLog. - History of kidney transplant in 2009, on immunosuppressive therapy. - Hypertension. Continue metoprolol, benazepril. 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 - Anemia of chronic kidney disease. Further recommendations based on clinical course. Plan of care discussed with Dr. Cohen Problems: Exam/Review of Systems Vital Signs Vitals Vital Signs Date Time Temp Pulse Resp B/P Pulse Ox O2 Delivery O2 Flow Rate FiO2 02/11/17 14:35 97.9 70 18 125/63 100 02/10/17 09:21 Room Air Intake and Output 02/10/17 02/10/17 02/11/17 15:00 23:00 07:00 Intake Total 680 ml 350 ml Balance 680 ml 350 ml Exam Constitutional: awake, alert Neck: supple Respiratory: clear to auscultation Cardiovascular: nl pulses Gastrointestinal: non-tender, soft Extremities: other (S/p LAKA, necrotic tissue) Results Result Diagram: 02/11/1726 02/11/17525 Results 24 hrs Laboratory Tests Test 02/10/17 20:41 02/11/17 05:26 02/11/17 08:47 02/11/17 12:19 Bedside Glucose 97 88 127 White Blood Count 5.3 # Red Blood Count 3.51 L Hemoglobin 9.9 L Hematocrit 30.4 L Mean Corpuscular Volume 86.6 Mean Corpuscular Hemoglobin 28.2 L Mean Corpuscular Hemoglobin Concent 32.6 Red Cell Distribution Width 15.7 H Platelet Count 208 Mean Platelet Volume 11.8 H Neutrophils % 65.0 Lymphocytes % 18.4 Monocytes % 13.9 H Eosinophils % 2.3 Basophils % 0.2 Nucleated Red Blood Cells % 0.0 Neutrophils # 3.5 Lymphocytes # 1.0 Monocytes # 0.7 Eosinophils # 0.1 Basophils # 0.0 Nucleated Red Blood Cells # 0.0 Sodium Level 134 L Potassium Level 4.4 Chloride Level 101 Carbon Dioxide Level 23 Anion Gap 14 Blood Urea Nitrogen 12 Creatinine 0.67 Glucose Level 79 Calcium Level 9.3 Medications Medications Current Medications Famotidine (Pepcid) 40 mg HS PO Last administered on 02/10/17 20:45; Admin Dose 40 MG; Start 12/26/16 at 21:00 Folic Acid (Folic Acid) 1 mg DAILY PO Last administered on 02/11/17 08:51; Admin Dose 1 MG; Start 12/27/16 at 09:00 Gabapentin (Neurontin) 100 mg TID PO Last administered on 02/11/17 12:21; Admin Dose 100 MG; Start 12/26/16 at 21:00 Mycophenolate Mofetil (Cellcept) 1,000 mg BID PO Last administered on 08:50; Admin Dose 1,000 MG; Start 12/26/16 at 21:00 Pantoprazole (Protonix Tab) 40 mg DAILY@06 PO Last administered on 02/11/17 05:31; Admin Dose 40 MG; Start 12/27/16 at 06:00 Diagnostic Test (Pha) (Accu-Chek) 1 ea 02 XX ; Start 12/27/16 at 02:00 Miscellaneous Information 1 ea NOTE XX ; Start 12/26/16 at 14:30 Glucose (Glutose) 15 gm Q15M PRN PO DECREASED GLUCOSE; Start 12/26/16 at 14:30 Glucose (Glutose) 22.5 gm Q15M PRN PO DECREASED GLUCOSE; Start 12/26/16 at 14:30 Dextrose (D50w Syringe) 25 ml Q15M PRN IV DECREASED GLUCOSE; Start 12/26/16 at 14:30 Dextrose (D50w Syringe) 50 ml Q15M PRN IV DECREASED GLUCOSE; Start 12/26/16 at 14:30 Glucagon (Glucagen) 1 mg Q15M PRN IM DECREASED GLUCOSE; Start 12/26/16 at 14:30 Glucose (Glutose) 15 gm Q15M PRN BUCCAL DECREASED GLUCOSE; Start 12/26/16 at 14: 30 Cholecalciferol (Vitamin D) 1,000 unit DAILY PO Last administered on 08:50; Admin Dose 1,000 UNIT; Start 12/28/16 at 09:00 Ondansetron HCl (Zofran Inj) 4 mg Q6H PRN IV NAUSEA AND/OR VOMITING Last administered on 01/15/17 09:50; Admin Dose 4 MG; Start 01/01/17 at 10:00 Haloperidol (Haldol) 2 mg Q4H PRN IM AGITATION/ANXIETY Last administered on 22:46; Admin Dose 2 MG; Start 01/08/17 at 01:30 Acetaminophen (Tylenol Tab) 650 mg Q6H PRN PO PAIN AND OR ELEVATED TEMP Last administered on 01/16/17 10:25; Admin Dose 650 MG; Start 01/08/17 at 22:30 Quetiapine Fumarate (Seroquel) 25 mg QHS PRN PO agitation/hallucinations Last administered on 01/09/17 22:15; Admin Dose 25 MG; Start 01/09/17 at 21:00 Morphine Sulfate (morphine) 2 mg Q8H PRN IV PAIN LEVEL 6-10 Last administered on 01/19/17 16:02; Admin Dose 2 MG; Start 01/11/17 at 14:00 Clonidine (Catapres) 0.1 mg Q6H PRN PO hypertension Last administered on 02:41; Admin Dose 0.1 MG; Start 01/14/17 at 02:30 Hydralazine HCl (Apresoline) 25 mg Q6H PRN IV ELEVATED SYSTOLIC BP Last administered on 01/14/17 07:04; Admin Dose 25 MG; Start 01/14/17 at 07:00 Insulin Glargine (Lantus) 5 unit DAILY@20 SC Last administered on 02/09/17 20 :50; Admin Dose 5 UNIT; Start 01/17/17 at 20:00 Tacrolimus (Prograf) 2 mg Q12 PO Last administered on 02/11/17 08:50; Admin Dose 2 MG; Start 01/18/17 at 09:00 IV Flush (NS 10 ml) 10 ml PRN PRN IV IV PROTOCOL Last administered on 11:54; Admin Dose 10 ML; Start 01/19/17 at 12:30 Acetaminophen/ Hydrocodone Bitart ([place] (5/325)) 1 tab Q8H PRN PO PAIN Last administered on 02/08/17 15:15; Admin Dose 1 TAB; Start 01/19/17 at 14:30 Metoprolol Tartrate (Lopressor) 50 mg BID PO Last administered on 02/10/17 20 :44; Admin Dose 50 MG; Start 01/23/17 at 21:00 Benazepril HCl (Lotensin) 10 mg BID PO Last administered on 02/11/17 08:52; Admin Dose 10 MG; Start 01/31/17 at 21:00 Linezolid (Zyvox) 600 mg BID PO Last administered on 02/11/17 08:51; Admin Dose 600 MG; Start 02/06/17 at 11:00 Tobramycin/ Dexamethasone (Tobradex Oph Drop) 2 drop TID LEFT EYE Last administered on 02/11/17 12:20; Admin Dose 2 DROP; Start 02/09/17 at 21:00 LES GILLILAND Feb 11, 2017 17:36
[2017-02-11 20:11] VITALS: BP 97/56; RESP 18
[2017-02-11] MEDS: INSULIN GLARGINE [LANtus] 3 ML PEN SC SCH (20:39)
[2017-02-11] MEDS: FAMOTIDINE 20 MG TAB PO SCH (20:41)
[2017-02-12] MEDS: ACCU-CHEK XX SCH (02:00)
[2017-02-12 02:23] VITALS: BP 91/55; RESP 18
[2017-02-12] MEDS: PANTOPRAZOLE (EC) 40 MG TAB PO SCH (05:42)
[2017-02-12 07:55] VITALS: BP 109/57; RESP 16
[2017-02-12] MEDS: INSULIN ASPART [NOVOLOG] 3 ML PEN SC SCH ×4 (08:00→21:00)
[2017-02-12] MEDS: TOBRAMYCIN/DEXAMETH 2.5 ML OPH LEFT EYE SCH ×3 (08:33→22:08)
[2017-02-12] MEDS: BENAZEPRIL 10 MG TAB PO SCH ×2 (08:33→22:11)
[2017-02-12] MEDS: CHOLECALCIFEROL 1,000 UNIT TAB PO SCH (08:33)
[2017-02-12] MEDS: FOLIC ACID 1 MG TAB PO SCH (08:33)
[2017-02-12] MEDS: GABAPENTIN 100 MG CAP PO SCH ×3 (08:33→22:09)
[2017-02-12] MEDS: ZYVOX 600 MG TAB PO SCH ×2 (08:33→22:09)
[2017-02-12] MEDS: TACROLIMUS 1 MG CAP PO SCH ×2 (08:33→22:09)
[2017-02-12] MEDS: MYCOPHENOLATE 250 MG CAP PO SCH ×2 (08:33→22:08)
[2017-02-12] MEDS: METOPROLOL 50 MG TAB PO SCH ×2 (08:34→22:11)
[2017-02-12 14:00] VITALS: BP 116/62; RESP 18
--- NOTE | 2017-02-12 14:03 | CONS ---
Date/Time of Note Date/Time of Note DATE: 02/12/17 TIME: 14:02 Consult Date/Type/Reason Admit Date/Time Dec 26, 2016 at 13:22 Initial Consult Date 12/27/16 Type of Consultation: ID Ordering Provider: LES GILLILAND Objective Vital Signs Date Time Temp Pulse Resp B/P Pulse Ox O2 Delivery O2 Flow Rate FiO2 02/12/17 07:55 97.5 74 16 109/57 100 02/10/17 09:21 Room Air Intake and Output 02/11/17 02/11/17 02/12/17 15:00 23:00 07:00 Intake Total 840 ml 200 ml Balance 840 ml 200 ml Results/Medications Result Diagram: 02/11/1752502/11/17 05 Results 24 hrs Laboratory Tests Test 02/11/17 17:40 02/11/17 20:36 02/12/17 08:29 02/12/17 12:10 Bedside Glucose 111 108 83 112 Medications Current Medications Famotidine (Pepcid) 40 mg HS PO Last administered on 02/11/17 20:41; Admin Dose 40 MG; Start 12/26/16 at 21:00 Folic Acid (Folic Acid) 1 mg DAILY PO Last administered on 02/12/17 08:33; Admin Dose 1 MG; Start 12/27/16 at 09:00 Gabapentin (Neurontin) 100 mg TID PO Last administered on 02/12/17 12:14; Admin Dose 100 MG; Start 12/26/16 at 21:00 Mycophenolate Mofetil (Cellcept) 1,000 mg BID PO Last administered on 08:33; Admin Dose 1,000 MG; Start 12/26/16 at 21:00 Pantoprazole (Protonix Tab) 40 mg DAILY@06 PO Last administered on 02/12/17 05:42; Admin Dose 40 MG; Start 12/27/16 at 06:00 Diagnostic Test (Pha) (Accu-Chek) 1 ea 02 XX ; Start 12/27/16 at 02:00 Miscellaneous Information 1 ea NOTE XX ; Start 12/26/16 at 14:30 Glucose (Glutose) 15 gm Q15M PRN PO DECREASED GLUCOSE; Start 12/26/16 at 14:30 Glucose (Glutose) 22.5 gm Q15M PRN PO DECREASED GLUCOSE; Start 12/26/16 at 14:30 Dextrose (D50w Syringe) 25 ml Q15M PRN IV DECREASED GLUCOSE; Start 12/26/16 at 14:30 Dextrose (D50w Syringe) 50 ml Q15M PRN IV DECREASED GLUCOSE; Start 12/26/16 at 14:30 Glucagon (Glucagen) 1 mg Q15M PRN IM DECREASED GLUCOSE; Start 12/26/16 at 14:30 Glucose (Glutose) 15 gm Q15M PRN BUCCAL DECREASED GLUCOSE; Start 12/26/16 at 14: 30 Cholecalciferol (Vitamin D) 1,000 unit DAILY PO Last administered on 08:33; Admin Dose 1,000 UNIT; Start 12/28/16 at 09:00 Ondansetron HCl (Zofran Inj) 4 mg Q6H PRN IV NAUSEA AND/OR VOMITING Last administered on 01/15/17 09:50; Admin Dose 4 MG; Start 01/01/17 at 10:00 Haloperidol (Haldol) 2 mg Q4H PRN IM AGITATION/ANXIETY Last administered on 22:46; Admin Dose 2 MG; Start 01/08/17 at 01:30 Acetaminophen (Tylenol Tab) 650 mg Q6H PRN PO PAIN AND OR ELEVATED TEMP Last administered on 01/16/17 10:25; Admin Dose 650 MG; Start 01/08/17 at 22:30 Quetiapine Fumarate (Seroquel) 25 mg QHS PRN PO agitation/hallucinations Last administered on 01/09/17 22:15; Admin Dose 25 MG; Start 01/09/17 at 21:00 Morphine Sulfate (morphine) 2 mg Q8H PRN IV PAIN LEVEL 6-10 Last administered on 01/19/17 16:02; Admin Dose 2 MG; Start 01/11/17 at 14:00 Clonidine (Catapres) 0.1 mg Q6H PRN PO hypertension Last administered on 02:41; Admin Dose 0.1 MG; Start 01/14/17 at 02:30 Hydralazine HCl (Apresoline) 25 mg Q6H PRN IV ELEVATED SYSTOLIC BP Last administered on 01/14/17 07:04; Admin Dose 25 MG; Start 01/14/17 at 07:00 Insulin Glargine (Lantus) 5 unit DAILY@20 SC Last administered on 02/11/17 20 :39; Admin Dose 5 UNIT; Start 01/17/17 at 20:00 Tacrolimus (Prograf) 2 mg Q12 PO Last administered on 02/12/17 08:33; Admin Dose 2 MG; Start 01/18/17 at 09:00 IV Flush (NS 10 ml) 10 ml PRN PRN IV IV PROTOCOL Last administered on 11:54; Admin Dose 10 ML; Start 01/19/17 at 12:30 Acetaminophen/ Hydrocodone Bitart ([place] (5/325)) 1 tab Q8H PRN PO PAIN Last administered on 02/08/17 15:15; Admin Dose 1 TAB; Start 01/19/17 at 14:30 Metoprolol Tartrate (Lopressor) 50 mg BID PO Last administered on 02/10/17 20 :44; Admin Dose 50 MG; Start 01/23/17 at 21:00 Benazepril HCl (Lotensin) 10 mg BID PO Last administered on 02/11/17 08:52; Admin Dose 10 MG; Start 01/31/17 at 21:00 Linezolid (Zyvox) 600 mg BID PO Last administered on 02/12/17 08:33; Admin Dose 600 MG; Start 02/06/17 at 11:00 Tobramycin/ Dexamethasone (Tobradex Oph Drop) 2 drop TID LEFT EYE Last administered on 02/12/17 12:14; Admin Dose 2 DROP; Start 02/09/17 at 21:00 Assessment/Plan Chief Complaint/Hosp Course SUBJECTIVE DATA: No acute events. Patient is alert, looks comfortable. No fevers. ANTIMICROBIALS: Zyvox #7 OBJECTIVE DATA: GENERAL: Chronically ill-appearing, elderly woman, who is awake, in no distress. HEENT: Head atraumatic, normocephalic. Sclerae anicteric. Buccal mucosa dry. NECK: Supple. CHEST: Rise symmetrical. Breath sounds diminished at the bases. HEART: S1, S2. ABDOMEN: Soft, bowel sounds present. EXTREMITIES: With left stump with gangrenous changes and open wound. The right foot dry necrotic wound ASSESSMENT: 1. 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 2. Severe peripheral arterial disease, failed multiple revascularization procedures. 3. History of kidney transplant, remains on immunosuppressive therapy. 4. Resolved diarrhea, on empiric oral vancomycin. 5. Diabetes. 6. History of odfvijav-fwymznit-cjnn-lactamase urinary tract infection. 7. R foot gangrene with open wound==> cx + E coli ESBL==> treated PLAN: Clinically unchanged. Continue Zyvox, will discuss with vascular surgery further plan of care, consider hospice DW staff Problems: JACQUES HUERTA NP Feb 12, 2017 14:03
--- NOTE | 2017-02-12 16:48 | CONS ---
Date/Time of Note Date/Time of Note DATE: 02/12/17 TIME: 16:47 Assessment/Plan Assessment/Plan Additional Assessment/Plan 1. 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 h/o donor kidney transplant in 2009 at [facility], currently on immunosuppression with Prograf, CellCept 4. 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 History of hypertension. 6. History of diabetes mellitus. 7. History of previous left upper extremity arteriovenous fistula. 8. Hyponatremia due to hypovolemic hyponatremia post op 9. -CT chest+ abd+pelvis with and without contrast negative for mass/LAD/ Malignancy Plan: continue Current immunosuppression Prograf and cellcept, Cr 0.67 Na 134 s/p Left AKA, off IV abx now, continue Lotensin ID following will continue to follow up on patient Consultation Date/Type/Reason Admit Date/Time Dec 26, 2016 at 13:22 Initial Consult Date 12/27/16 Type of Consultation: NEPHROLOGY Referring Provider: LES GILLILAND Exam/Review of Systems Vital Signs Vitals Vital Signs Date Time Temp Pulse Resp B/P Pulse Ox O2 Delivery O2 Flow Rate FiO2 02/12/17 14:00 97.6 72 18 116/62 100 02/10/17 09:21 Room Air Intake and Output 02/11/17 02/11/17 02/12/17 15:00 23:00 07:00 Intake Total 840 ml 200 ml Balance 840 ml 200 ml Exam GEN: fragile elderly woman who is awake in no distress. HEENT: Head atraumatic, normocephalic. Sclerae anicteric. NECK: Supple. CHEST: Rise symmetrical. Breath sounds clear. HEART: S1, S2. ABDOMEN: Soft, bowel sounds present. left BKA dressing clean Results Result Diagram: 02/11/1752502/11/17525 Results 24 hrs Laboratory Tests Test 02/11/17 17:40 02/11/17 20:36 02/12/17 08:29 02/12/17 12:10 Bedside Glucose 111 108 83 112 Medications Medications Current Medications Famotidine (Pepcid) 40 mg HS PO Last administered on 02/11/17t 20:41; Admin Dose 40 MG; Start 12/26/16 at 21:00 Folic Acid (Folic Acid) 1 mg DAILY PO Last administered on 02/12/17 08:33; Admin Dose 1 MG; Start 12/27/16 at 09:00 Gabapentin (Neurontin) 100 mg TID PO Last administered on 02/12/17 12:14; Admin Dose 100 MG; Start 12/26/16 at 21:00 Mycophenolate Mofetil (Cellcept) 1,000 mg BID PO Last administered on 08:33; Admin Dose 1,000 MG; Start 12/26/16 at 21:00 Pantoprazole (Protonix Tab) 40 mg DAILY@06 PO Last administered on 02/12/17 05:42; Admin Dose 40 MG; Start 12/27/16 at 06:00 Diagnostic Test (Pha) (Accu-Chek) 1 ea 02 XX ; Start 12/27/16 at 02:00 Miscellaneous Information 1 ea NOTE XX ; Start 12/26/16 at 14:30 Glucose (Glutose) 15 gm Q15M PRN PO DECREASED GLUCOSE; Start 12/26/16 at 14:30 Glucose (Glutose) 22.5 gm Q15M PRN PO DECREASED GLUCOSE; Start 12/26/16 at 14:30 Dextrose (D50w Syringe) 25 ml Q15M PRN IV DECREASED GLUCOSE; Start 12/26/16 at 14:30 Dextrose (D50w Syringe) 50 ml Q15M PRN IV DECREASED GLUCOSE; Start 12/26/16 at 14:30 Glucagon (Glucagen) 1 mg Q15M PRN IM DECREASED GLUCOSE; Start 12/26/16 at 14:30 Glucose (Glutose) 15 gm Q15M PRN BUCCAL DECREASED GLUCOSE; Start 12/26/16 at 14: 30 Cholecalciferol (Vitamin D) 1,000 unit DAILY PO Last administered on 08:33; Admin Dose 1,000 UNIT; Start 12/28/16 at 09:00 Ondansetron HCl (Zofran Inj) 4 mg Q6H PRN IV NAUSEA AND/OR VOMITING Last administered on 01/15/17 09:50; Admin Dose 4 MG; Start 01/01/17 at 10:00 Haloperidol (Haldol) 2 mg Q4H PRN IM AGITATION/ANXIETY Last administered on 22:46; Admin Dose 2 MG; Start 01/08/17 at 01:30 Acetaminophen (Tylenol Tab) 650 mg Q6H PRN PO PAIN AND OR ELEVATED TEMP Last administered on 01/16/17 10:25; Admin Dose 650 MG; Start 01/08/17 at 22:30 Quetiapine Fumarate (Seroquel) 25 mg QHS PRN PO agitation/hallucinations Last administered on 01/09/17 22:15; Admin Dose 25 MG; Start 01/09/17 at 21:00 Morphine Sulfate (morphine) 2 mg Q8H PRN IV PAIN LEVEL 6-10 Last administered on 01/19/17 16:02; Admin Dose 2 MG; Start 01/11/17 at 14:00 Clonidine (Catapres) 0.1 mg Q6H PRN PO hypertension Last administered on 02:41; Admin Dose 0.1 MG; Start 01/14/17 at 02:30 Hydralazine HCl (Apresoline) 25 mg Q6H PRN IV ELEVATED SYSTOLIC BP Last administered on 01/14/17 07:04; Admin Dose 25 MG; Start 01/14/17 at 07:00 Insulin Glargine (Lantus) 5 unit DAILY@20 SC Last administered on 02/11/17 20 :39; Admin Dose 5 UNIT; Start 01/17/17 at 20:00 Tacrolimus (Prograf) 2 mg Q12 PO Last administered on 02/12/17 08:33; Admin Dose 2 MG; Start 01/18/17 at 09:00 IV Flush (NS 10 ml) 10 ml PRN PRN IV IV PROTOCOL Last administered on 11:54; Admin Dose 10 ML; Start 01/19/17 at 12:30 Acetaminophen/ Hydrocodone Bitart ([place] (5/325)) 1 tab Q8H PRN PO PAIN Last administered on 02/08/17 15:15; Admin Dose 1 TAB; Start 01/19/17 at 14:30 Metoprolol Tartrate (Lopressor) 50 mg BID PO Last administered on 02/10/17 20 :44; Admin Dose 50 MG; Start 01/23/17 at 21:00 Benazepril HCl (Lotensin) 10 mg BID PO Last administered on 02/11/17 08:52; Admin Dose 10 MG; Start 01/31/17 at 21:00 Linezolid (Zyvox) 600 mg BID PO Last administered on 02/12/17 08:33; Admin Dose 600 MG; Start 02/06/17 at 11:00 Tobramycin/ Dexamethasone (Tobradex Oph Drop) 2 drop TID LEFT EYE Last administered on 02/12/17 12:14; Admin Dose 2 DROP; Start 02/09/17 at 21:00 RAMON KEMP MD Feb 12, 2017 16:48
--- NOTE | 2017-02-12 16:59 | CONS ---
Date/Time of Note Date/Time of Note DATE: 02/12/17 TIME: 16:58 Assessment/Plan Assessment/Plan Chief Complaint/Hosp Course IMP: 1.Xpp-zf-vrsqcs test 10/2016 with no ischemia/only scar/NL EF. Negative trop x 3. 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 Encephalopathy-improved 7. Hyponatremia-improved Recc: -Continue asa/plavix -Continue benazepril/BB but were held today and if continue to be held will decrease doses -Local wound care -Continue abx's and f/u cx data -Continue immuonosuppresives -Follow volume status closely -awaiting placemment Problems: Consultation Date/Type/Reason Admit Date/Time Dec 26, 2016 at 13:22 Initial Consult Date 12/27/16 Type of Consultation: cardiology Reason for Consultation HTN Referring Provider: LES GILLILAND Exam/Review of Systems Vital Signs Vitals Vital Signs Date Time Temp Pulse Resp B/P Pulse Ox O2 Delivery O2 Flow Rate FiO2 02/12/17 14:00 97.6 72 18 116/62 100 02/10/17 09:21 Room Air Intake and Output 02/11/17 02/11/17 02/12/17 15:00 23:00 07:00 Intake Total 840 ml 200 ml Balance 840 ml 200 ml Exam Review of Systems: CONSTITUTIONAL: No fevers, chills. PULMONARY: No sob CARDIOVASCULAR: No chest pain/palpitations GASTROINTESTINAL: No nausea/vomiting. GENITOURINARY: No hematuria/dysuria. MUSCULOSKELETAL: No myagias/arthalgias. PSYCHIATRIC: The patient denies depression. NEUROLOGIC: No weakness Constitutional: alert Psych: no complaints Head: normocephalic ENMT: mucosa pink and moist Neck: jvd (9 cm water), supple Respiratory: diminished breath sounds (at bases/B) Cardiovascular: regular rate and rhythm Gastrointestinal: non-tender, soft Musculoskeletal: muscle tone (normal) Extremities: edema (none) Neurological: other (No focal deficits) Results Result Diagram: 02/11/17 0526 02/11/17 0526 Results 24 hrs Laboratory Tests Test 02/11/17 17:40 02/11/17 20:36 02/12/17 08:29 02/12/17 12:10 Bedside Glucose 111 108 83 112 Medications Medications Current Medications Famotidine (Pepcid) 40 mg HS PO Last administered on 02/11/17 20:41; Admin Dose 40 MG; Start 12/26/16 at 21:00 Folic Acid (Folic Acid) 1 mg DAILY PO Last administered on 02/12/17 08:33; Admin Dose 1 MG; Start 12/27/16 at 09:00 Gabapentin (Neurontin) 100 mg TID PO Last administered on 02/12/17 12:14; Admin Dose 100 MG; Start 12/26/16 at 21:00 Mycophenolate Mofetil (Cellcept) 1,000 mg BID PO Last administered on 08:33; Admin Dose 1,000 MG; Start 12/26/16 at 21:00 Pantoprazole (Protonix Tab) 40 mg DAILY@06 PO Last administered on 02/12/17 05:42; Admin Dose 40 MG; Start 12/27/16 at 06:00 Diagnostic Test (Pha) (Accu-Chek) 1 ea 02 XX ; Start 12/27/16 at 02:00 Miscellaneous Information 1 ea NOTE XX ; Start 12/26/16 at 14:30 Glucose (Glutose) 15 gm Q15M PRN PO DECREASED GLUCOSE; Start 12/26/16 at 14:30 Glucose (Glutose) 22.5 gm Q15M PRN PO DECREASED GLUCOSE; Start 12/26/16 at 14:30 Dextrose (D50w Syringe) 25 ml Q15M PRN IV DECREASED GLUCOSE; Start 12/26/16 at 14:30 Dextrose (D50w Syringe) 50 ml Q15M PRN IV DECREASED GLUCOSE; Start 12/26/16 at 14:30 Glucagon (Glucagen) 1 mg Q15M PRN IM DECREASED GLUCOSE; Start 12/26/16 at 14:30 Glucose (Glutose) 15 gm Q15M PRN BUCCAL DECREASED GLUCOSE; Start 12/26/16 at 14: 30 Cholecalciferol (Vitamin D) 1,000 unit DAILY PO Last administered on 08:33; Admin Dose 1,000 UNIT; Start 12/28/16 at 09:00 Ondansetron HCl (Zofran Inj) 4 mg Q6H PRN IV NAUSEA AND/OR VOMITING Last administered on 01/15/17 09:50; Admin Dose 4 MG; Start 01/01/17 at 10:00 Haloperidol (Haldol) 2 mg Q4H PRN IM AGITATION/ANXIETY Last administered on 22:46; Admin Dose 2 MG; Start 01/08/17 at 01:30 Acetaminophen (Tylenol Tab) 650 mg Q6H PRN PO PAIN AND OR ELEVATED TEMP Last administered on 01/16/17 10:25; Admin Dose 650 MG; Start 01/08/17 at 22:30 Quetiapine Fumarate (Seroquel) 25 mg QHS PRN PO agitation/hallucinations Last administered on 01/09/17 22:15; Admin Dose 25 MG; Start 01/09/17 at 21:00 Morphine Sulfate (morphine) 2 mg Q8H PRN IV PAIN LEVEL 6-10 Last administered on 01/19/17 16:02; Admin Dose 2 MG; Start 01/11/17 at 14:00 Clonidine (Catapres) 0.1 mg Q6H PRN PO hypertension Last administered on 02:41; Admin Dose 0.1 MG; Start 01/14/17 at 02:30 Hydralazine HCl (Apresoline) 25 mg Q6H PRN IV ELEVATED SYSTOLIC BP Last administered on 01/14/17 07:04; Admin Dose 25 MG; Start 01/14/17 at 07:00 Insulin Glargine (Lantus) 5 unit DAILY@20 SC Last administered on 02/11/17 20 :39; Admin Dose 5 UNIT; Start 01/17/17 at 20:00 Tacrolimus (Prograf) 2 mg Q12 PO Last administered on 02/12/17 08:33; Admin Dose 2 MG; Start 01/18/17 at 09:00 IV Flush (NS 10 ml) 10 ml PRN PRN IV IV PROTOCOL Last administered on 11:54; Admin Dose 10 ML; Start 01/19/17 at 12:30 Acetaminophen/ Hydrocodone Bitart ([place] (5/325)) 1 tab Q8H PRN PO PAIN Last administered on 02/08/17 15:15; Admin Dose 1 TAB; Start 01/19/17 at 14:30 Metoprolol Tartrate (Lopressor) 50 mg BID PO Last administered on 02/10/17 20 :44; Admin Dose 50 MG; Start 01/23/17 at 21:00 Benazepril HCl (Lotensin) 10 mg BID PO Last administered on 02/11/17 08:52; Admin Dose 10 MG; Start 01/31/17 at 21:00 Linezolid (Zyvox) 600 mg BID PO Last administered on 02/12/17 08:33; Admin Dose 600 MG; Start 02/06/17 at 11:00 Tobramycin/ Dexamethasone (Tobradex Oph Drop) 2 drop TID LEFT EYE Last administered on 02/12/17 12:14; Admin Dose 2 DROP; Start 02/09/17 at 21:00 TIMOTHY CORTES Feb 12, 2017 16:59
--- NOTE | 2017-02-12 18:29 | PN ---
Date/Time of Note Date/Time of Note DATE: 02/12/17 TIME: 18:27 Assessment/Plan VTE Prophylaxis VTE Prophylaxis Intervention: other Lines/Catheters IV Catheter Type (from Nrs): PICC Line Central line still needed: Yes Urinary Cath still in place: No Assessment/Plan Chief Complaint/Hosp Course Patient stump is necrotic, Dr Valencia is asked to reevaluate pt from vascular surgery point, pt is unable to get up the stairs to go home , continue PT, awaits for SNIF placement. VRE in the wound , need authorization Zyvox. Assessment/Plan - Acute encephalopathy, resolved. CT brain is negative for any acute pathology. 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 S/p left AKA 01/[address] Valencia, vascular surgery. - Diabetes mellitus type II. Continue Lantus and NovoLog. - History of kidney transplant in 2009, on immunosuppressive therapy. - Hypertension. Continue metoprolol, benazepril. 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 - Anemia of chronic kidney disease. Further recommendations based on clinical course. Plan of care discussed with Dr. Cohen Problems: Exam/Review of Systems Vital Signs Vitals Vital Signs Date Time Temp Pulse Resp B/P Pulse Ox O2 Delivery O2 Flow Rate FiO2 02/12/17 14:00 97.6 72 18 116/62 100 02/10/17 09:21 Room Air Intake and Output 02/11/17 02/11/17 02/12/17 15:00 23:00 07:00 Intake Total 840 ml 200 ml Balance 840 ml 200 ml Exam Constitutional: awake, alert Neck: supple Respiratory: clear to auscultation Cardiovascular: nl pulses Gastrointestinal: non-tender, soft Extremities: other (S/p LAKA, necrotic tissue) Results Result Diagram: 02/11/1752502/11/17525 Results 24 hrs Laboratory Tests Test 02/11/17 20:36 02/12/17 08:29 02/12/17 12:10 02/12/17 18:02 Bedside Glucose 108 83 112 97 Medications Medications Current Medications Famotidine (Pepcid) 40 mg HS PO Last administered on 02/11/17t 20:41; Admin Dose 40 MG; Start 12/26/16 at 21:00 Folic Acid (Folic Acid) 1 mg DAILY PO Last administered on 02/12/17 08:33; Admin Dose 1 MG; Start 12/27/16 at 09:00 Gabapentin (Neurontin) 100 mg TID PO Last administered on 02/12/17 12:14; Admin Dose 100 MG; Start 12/26/16 at 21:00 Mycophenolate Mofetil (Cellcept) 1,000 mg BID PO Last administered on 08:33; Admin Dose 1,000 MG; Start 12/26/16 at 21:00 Pantoprazole (Protonix Tab) 40 mg DAILY@06 PO Last administered on 02/12/17 05:42; Admin Dose 40 MG; Start 12/27/16 at 06:00 Diagnostic Test (Pha) (Accu-Chek) 1 ea 02 XX ; Start 12/27/16 at 02:00 Miscellaneous Information 1 ea NOTE XX ; Start 12/26/16 at 14:30 Glucose (Glutose) 15 gm Q15M PRN PO DECREASED GLUCOSE; Start 12/26/16 at 14:30 Glucose (Glutose) 22.5 gm Q15M PRN PO DECREASED GLUCOSE; Start 12/26/16 at 14:30 Dextrose (D50w Syringe) 25 ml Q15M PRN IV DECREASED GLUCOSE; Start 12/26/16 at 14:30 Dextrose (D50w Syringe) 50 ml Q15M PRN IV DECREASED GLUCOSE; Start 12/26/16 at 14:30 Glucagon (Glucagen) 1 mg Q15M PRN IM DECREASED GLUCOSE; Start 12/26/16 at 14:30 Glucose (Glutose) 15 gm Q15M PRN BUCCAL DECREASED GLUCOSE; Start 12/26/16 at 14: 30 Cholecalciferol (Vitamin D) 1,000 unit DAILY PO Last administered on 08:33; Admin Dose 1,000 UNIT; Start 12/28/16 at 09:00 Ondansetron HCl (Zofran Inj) 4 mg Q6H PRN IV NAUSEA AND/OR VOMITING Last administered on 01/15/17 09:50; Admin Dose 4 MG; Start 01/01/17 at 10:00 Haloperidol (Haldol) 2 mg Q4H PRN IM AGITATION/ANXIETY Last administered on 22:46; Admin Dose 2 MG; Start 01/08/17 at 01:30 Acetaminophen (Tylenol Tab) 650 mg Q6H PRN PO PAIN AND OR ELEVATED TEMP Last administered on 01/16/17 10:25; Admin Dose 650 MG; Start 01/08/17 at 22:30 Quetiapine Fumarate (Seroquel) 25 mg QHS PRN PO agitation/hallucinations Last administered on 01/09/17 22:15; Admin Dose 25 MG; Start 01/09/17 at 21:00 Morphine Sulfate (morphine) 2 mg Q8H PRN IV PAIN LEVEL 6-10 Last administered on 01/19/17 16:02; Admin Dose 2 MG; Start 01/11/17 at 14:00 Clonidine (Catapres) 0.1 mg Q6H PRN PO hypertension Last administered on 02:41; Admin Dose 0.1 MG; Start 01/14/17 at 02:30 Hydralazine HCl (Apresoline) 25 mg Q6H PRN IV ELEVATED SYSTOLIC BP Last administered on 01/14/17 07:04; Admin Dose 25 MG; Start 01/14/17 at 07:00 Insulin Glargine (Lantus) 5 unit DAILY@20 SC Last administered on 02/11/17 20 :39; Admin Dose 5 UNIT; Start 01/17/17 at 20:00 Tacrolimus (Prograf) 2 mg Q12 PO Last administered on 02/12/17 08:33; Admin Dose 2 MG; Start 01/18/17 at 09:00 IV Flush (NS 10 ml) 10 ml PRN PRN IV IV PROTOCOL Last administered on 11:54; Admin Dose 10 ML; Start 01/19/17 at 12:30 Acetaminophen/ Hydrocodone Bitart ([place] (5/325)) 1 tab Q8H PRN PO PAIN Last administered on 02/08/17 15:15; Admin Dose 1 TAB; Start 01/19/17 at 14:30 Metoprolol Tartrate (Lopressor) 50 mg BID PO Last administered on 02/10/17 20 :44; Admin Dose 50 MG; Start 01/23/17 at 21:00 Benazepril HCl (Lotensin) 10 mg BID PO Last administered on 02/11/17 08:52; Admin Dose 10 MG; Start 01/31/17 at 21:00 Linezolid (Zyvox) 600 mg BID PO Last administered on 02/12/17 08:33; Admin Dose 600 MG; Start 02/06/17 at 11:00 Tobramycin/ Dexamethasone (Tobradex Oph Drop) 2 drop TID LEFT EYE Last administered on 02/12/17 12:14; Admin Dose 2 DROP; Start 02/09/17 at 21:00 LES GILLILAND Feb 12, 2017 18:29
[2017-02-12 20:39] VITALS: BP 145/65; RESP 18
[2017-02-12] MEDS: FAMOTIDINE 20 MG TAB PO SCH (22:09)
[2017-02-12] MEDS: INSULIN GLARGINE [LANtus] 3 ML PEN SC SCH (22:12)
[2017-02-13] MEDS: ACCU-CHEK XX SCH (02:00)
[2017-02-13 02:21] VITALS: BP 98/55; RESP 17
[2017-02-13] MEDS: PANTOPRAZOLE (EC) 40 MG TAB PO SCH (05:06)
--- NOTE | 2017-02-13 07:23 | PN ---
Date/Time of Note Date/Time of Note DATE: 02/13/17 TIME: 07:09 Assessment/Plan Lines/Catheters IV Catheter Type (from Nrs): PICC Line [place] in Place (from Nrs): No Assessment/Plan Chief Complaint/Hosp Course -Bilateral lower extremity atherosclerosis with bilateral foot gangrene: S/P Left AKA -Her medial aspect of the AKA has developed superficial eschar at the moment, recommend applying Betadine paint daily -Patient is cleared to be discharge with the eschar as there is no surrounding erythema, purulent drainage, or pain associated with the stump. Further, she does not have osteomyelitis of the femur as she had recent amputation and surrounding edema with inflammatory changes are as expected. -Recommend arrange for home health or educate patient to apply Betadine paint to the stump daily -Patient to followup at [facility] in one week for observation of her stump progress and will apply localized debridements as needed -No need to discharge for prolonged antibiotics at the moment -PT/OT as tolerated -Unfortunately she may encounter the same issue with her RLE. However, at the moment no significant rest pain reported and wounds are stable -Optimize vascular status (BP medications, diet, nutrition and exercise, sugar control, antiplatelets). -Podiatry colleagues are involved with the local wound care -Discussed findings, plan and management with the patient with a certified lead oxide mill tender and she understands. -Thank you for allowing us to partake in the care of your patient. Please call with any questions. Problems: Subjective 24 Hr Interval Summary no new vascular events overnight Exam/Review of Systems Vital Signs Vitals Vital Signs Date Time Temp Pulse Resp B/P Pulse Ox O2 Delivery O2 Flow Rate FiO2 02/13/17 02:21 97.9 66 17 98/55 100 02/10/17 09:21 Room Air Intake and Output 02/12/17 02/12/17 02/13/17 15:00 23:00 07:00 Intake Total 1040 ml 400 ml Balance 1040 ml 400 ml Exam Free Text/Dictation Alert and oriented x3 LUNGS: Clear to auscultation bilaterally. CARDIOVASCULAR: S1 and S2 present ABDOMEN: Soft, nontender and nondistended. Bowel sounds positive. Surgical scar well healed. EXTREMITIES: -Right lower extremity faint femoral pulse. Nonpalpable pedal pulse. Motor and sensory intact. Capillary refill 4 seconds. Gangrene of fifth toe amputation stump site and dependant rubor stable. -Left lower extremity faint femoral pulse. AKA-stump intact with Medial aspect having a superficial eschar. no pus or erythema identified, no drainage Results Result Diagram: 02/11/17 0526 02/11/17 05 WILD DUARTE MD Feb 13, 2017 07:23
[2017-02-13 07:33] VITALS: BP 111/56; RESP 17
[2017-02-13] MEDS: INSULIN ASPART [NOVOLOG] 3 ML PEN SC SCH ×4 (07:52→20:33)
[2017-02-13] MEDS: CHOLECALCIFEROL 1,000 UNIT TAB PO SCH (08:46)
[2017-02-13] MEDS: TOBRAMYCIN/DEXAMETH 2.5 ML OPH LEFT EYE SCH ×3 (08:46→20:20)
[2017-02-13] MEDS: ZYVOX 600 MG TAB PO SCH (08:47)
[2017-02-13] MEDS: FOLIC ACID 1 MG TAB PO SCH (08:47)
[2017-02-13] MEDS: GABAPENTIN 100 MG CAP PO SCH ×3 (08:47→20:26)
[2017-02-13] MEDS: MYCOPHENOLATE 250 MG CAP PO SCH ×2 (08:47→20:21)
[2017-02-13] MEDS: METOPROLOL 50 MG TAB PO SCH ×2 (08:47→20:28)
[2017-02-13] MEDS: TACROLIMUS 1 MG CAP PO SCH ×2 (08:48→20:25)
[2017-02-13] MEDS: BENAZEPRIL 10 MG TAB PO SCH ×2 (08:48→20:28)
[2017-02-13 13:45] VITALS: BP 116/56; RESP 17
--- NOTE | 2017-02-13 13:49 | CONS ---
Date/Time of Note Date/Time of Note DATE: 02/13/17 TIME: 13:46 Consult Date/Type/Reason Admit Date/Time Dec 26, 2016 at 13:22 Initial Consult Date 12/27/16 Type of Consultation: ID Ordering Provider: LES GILLILAND Objective Vital Signs Date Time Temp Pulse Resp B/P Pulse Ox O2 Delivery O2 Flow Rate FiO2 02/13/17 07:33 97.6 66 17 111/56 100 02/10/17 09:21 Room Air Intake and Output 02/12/17 02/12/17 02/13/17 15:00 23:00 07:00 Intake Total 1040 ml 400 ml Balance 1040 ml 400 ml Results/Medications Result Diagram: 02/11/1752502/11/17525 Results 24 hrs Laboratory Tests Test 02/12/17 18:02 02/12/17 22:07 02/13/17 07:51 02/13/17 12:03 Bedside Glucose 97 115 81 114 Medications Current Medications Famotidine (Pepcid) 40 mg HS PO Last administered on 02/12/17 22:09; Admin Dose 40 MG; Start 12/26/16 at 21:00 Folic Acid (Folic Acid) 1 mg DAILY PO Last administered on 02/13/17 08:47; Admin Dose 1 MG; Start 12/27/16 at 09:00 Gabapentin (Neurontin) 100 mg TID PO Last administered on 02/13/17 12:07; Admin Dose 100 MG; Start 12/26/16 at 21:00 Mycophenolate Mofetil (Cellcept) 1,000 mg BID PO Last administered on 08:47; Admin Dose 1,000 MG; Start 12/26/16 at 21:00 Pantoprazole (Protonix Tab) 40 mg DAILY@06 PO Last administered on 02/13/17 05:06; Admin Dose 40 MG; Start 12/27/16 at 06:00 Diagnostic Test (Pha) (Accu-Chek) 1 ea 02 XX ; Start 12/27/16 at 02:00 Miscellaneous Information 1 ea NOTE XX ; Start 12/26/16 at 14:30 Glucose (Glutose) 15 gm Q15M PRN PO DECREASED GLUCOSE; Start 12/26/16 at 14:30 Glucose (Glutose) 22.5 gm Q15M PRN PO DECREASED GLUCOSE; Start 12/26/16 at 14:30 Dextrose (D50w Syringe) 25 ml Q15M PRN IV DECREASED GLUCOSE; Start 12/26/16 at 14:30 Dextrose (D50w Syringe) 50 ml Q15M PRN IV DECREASED GLUCOSE; Start 12/26/16 at 14:30 Glucagon (Glucagen) 1 mg Q15M PRN IM DECREASED GLUCOSE; Start 12/26/16 at 14:30 Glucose (Glutose) 15 gm Q15M PRN BUCCAL DECREASED GLUCOSE; Start 12/26/16 at 14: 30 Cholecalciferol (Vitamin D) 1,000 unit DAILY PO Last administered on 08:46; Admin Dose 1,000 UNIT; Start 12/28/16 at 09:00 Ondansetron HCl (Zofran Inj) 4 mg Q6H PRN IV NAUSEA AND/OR VOMITING Last administered on 01/15/17 09:50; Admin Dose 4 MG; Start 01/01/17 at 10:00 Haloperidol (Haldol) 2 mg Q4H PRN IM AGITATION/ANXIETY Last administered on 22:46; Admin Dose 2 MG; Start 01/08/17 at 01:30 Acetaminophen (Tylenol Tab) 650 mg Q6H PRN PO PAIN AND OR ELEVATED TEMP Last administered on 01/16/17 10:25; Admin Dose 650 MG; Start 01/08/17 at 22:30 Quetiapine Fumarate (Seroquel) 25 mg QHS PRN PO agitation/hallucinations Last administered on 01/09/17 22:15; Admin Dose 25 MG; Start 01/09/17 at 21:00 Morphine Sulfate (morphine) 2 mg Q8H PRN IV PAIN LEVEL 6-10 Last administered on 01/19/17 16:02; Admin Dose 2 MG; Start 01/11/17 at 14:00 Clonidine (Catapres) 0.1 mg Q6H PRN PO hypertension Last administered on 02:41; Admin Dose 0.1 MG; Start 01/14/17 at 02:30 Hydralazine HCl (Apresoline) 25 mg Q6H PRN IV ELEVATED SYSTOLIC BP Last administered on 01/14/17 07:04; Admin Dose 25 MG; Start 01/14/17 at 07:00 Insulin Glargine (Lantus) 5 unit DAILY@20 SC Last administered on 02/12/17 22 :12; Admin Dose 5 UNIT; Start 01/17/17 at 20:00 Tacrolimus (Prograf) 2 mg Q12 PO Last administered on 02/13/17 08:48; Admin Dose 2 MG; Start 01/18/17 at 09:00 IV Flush (NS 10 ml) 10 ml PRN PRN IV IV PROTOCOL Last administered on 11:54; Admin Dose 10 ML; Start 01/19/17 at 12:30 Acetaminophen/ Hydrocodone Bitart ([place] (5/325)) 1 tab Q8H PRN PO PAIN Last administered on 02/08/17 15:15; Admin Dose 1 TAB; Start 01/19/17 at 14:30 Metoprolol Tartrate (Lopressor) 50 mg BID PO Last administered on 02/12/17 22 :11; Admin Dose 50 MG; Start 01/23/17 at 21:00 Benazepril HCl (Lotensin) 10 mg BID PO Last administered on 02/13/17 08:48; Admin Dose 10 MG; Start 01/31/17 at 21:00 Linezolid (Zyvox) 600 mg BID PO Last administered on 02/13/17 08:47; Admin Dose 600 MG; Start 02/06/17 at 11:00 Tobramycin/ Dexamethasone (Tobradex Oph Drop) 2 drop TID LEFT EYE Last administered on 02/13/17 12:03; Admin Dose 2 DROP; Start 02/09/17 at 21:00 Assessment/Plan Chief Complaint/Hosp Course SUBJECTIVE DATA: No acute events. Patient is alert, looks comfortable. No fevers. ANTIMICROBIALS: Zyvox #8 OBJECTIVE DATA: GENERAL: Chronically ill-appearing, elderly woman, who is awake, in no distress. HEENT: Head atraumatic, normocephalic. Sclerae anicteric. Buccal mucosa dry. NECK: Supple. CHEST: Rise symmetrical. Breath sounds diminished at the bases. HEART: S1, S2. ABDOMEN: Soft, bowel sounds present. EXTREMITIES: With left stump with gangrenous changes and open wound. The right foot dry necrotic wound ASSESSMENT: 1. 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 2. Severe peripheral arterial disease, failed multiple revascularization procedures. 3. History of kidney transplant, remains on immunosuppressive therapy. 4. Resolved diarrhea, on empiric oral vancomycin. 5. Diabetes. 6. History of lozjexfn-hwvvvcvu-iztj-lactamase urinary tract infection. 7. R foot gangrene with open wound==> cx + E coli ESBL==> treated PLAN: Clinically unchanged. Vascular surgery rec-s noted, will dc abx, continue local wound care ?dc plan [facility] staff Problems: JACQUES HUERTA NP Feb 13, 2017 13:48
--- NOTE | 2017-02-13 17:11 | CONS ---
Date/Time of Note Date/Time of Note DATE: 02/13/17 TIME: 17:10 Assessment/Plan Assessment/Plan Additional Assessment/Plan 1. 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 h/o donor kidney transplant in 2009 at [facility], currently on immunosuppression with Prograf, CellCept 4. 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 History of hypertension. 6. History of diabetes mellitus. 7. History of previous left upper extremity arteriovenous fistula. 8. Hyponatremia due to hypovolemic hyponatremia post op 9. -CT chest+ abd+pelvis with and without contrast negative for mass/LAD/ Malignancy Plan: continue Current immunosuppression Prograf and cellcept, Cr 0.67 Na 134 on 02/11/17- no Labs since t hen, BMP ordered with AM labs s/p Left AKA, off IV abx now, continue Lotensin ID following will continue to follow up on patient Consultation Date/Type/Reason Admit Date/Time Dec 26, 2016 at 13:22 Initial Consult Date 12/27/16 Type of Consultation: NEPHROLOGY Referring Provider: LES GILLILAND 24 HR Interval Summary Free Text/Dictation no labs today, awaitign placement Exam/Review of Systems Vital Signs Vitals Vital Signs Date Time Temp Pulse Resp B/P Pulse Ox O2 Delivery O2 Flow Rate FiO2 02/13/17 13:45 97.9 77 17 116/56 100 02/10/17 09:21 Room Air Intake and Output 02/12/17 02/12/17 02/13/17 15:00 23:00 07:00 Intake Total 1040 ml 400 ml Balance 1040 ml 400 ml Exam GEN: fragile elderly woman who is awake in no distress. HEENT: Head atraumatic, normocephalic. Sclerae anicteric. NECK: Supple. CHEST: Rise symmetrical. Breath sounds clear. HEART: S1, S2. ABDOMEN: Soft, bowel sounds present. left BKA dressing clean Results Result Diagram: 02/11/17 0526 02/11/17 0526 Results 24 hrs Laboratory Tests Test 02/12/17 18:02 02/12/17 22:07 02/13/17 07:51 02/13/17 12:03 Bedside Glucose 97 115 81 114 Medications Medications Current Medications Famotidine (Pepcid) 40 mg HS PO Last administered on 02/12/17 22:09; Admin Dose 40 MG; Start 12/26/16 at 21:00 Folic Acid (Folic Acid) 1 mg DAILY PO Last administered on 02/13/17 08:47; Admin Dose 1 MG; Start 12/27/16 at 09:00 Gabapentin (Neurontin) 100 mg TID PO Last administered on 02/13/17 12:07; Admin Dose 100 MG; Start 12/26/16 at 21:00 Mycophenolate Mofetil (Cellcept) 1,000 mg BID PO Last administered on 08:47; Admin Dose 1,000 MG; Start 12/26/16 at 21:00 Pantoprazole (Protonix Tab) 40 mg DAILY@06 PO Last administered on 02/13/17 05:06; Admin Dose 40 MG; Start 12/27/16 at 06:00 Diagnostic Test (Pha) (Accu-Chek) 1 ea 02 XX ; Start 12/27/16 at 02:00 Miscellaneous Information 1 ea NOTE XX ; Start 12/26/16 at 14:30 Glucose (Glutose) 15 gm Q15M PRN PO DECREASED GLUCOSE; Start 12/26/16 at 14:30 Glucose (Glutose) 22.5 gm Q15M PRN PO DECREASED GLUCOSE; Start 12/26/16 at 14:30 Dextrose (D50w Syringe) 25 ml Q15M PRN IV DECREASED GLUCOSE; Start 12/26/16 at 14:30 Dextrose (D50w Syringe) 50 ml Q15M PRN IV DECREASED GLUCOSE; Start 12/26/16 at 14:30 Glucagon (Glucagen) 1 mg Q15M PRN IM DECREASED GLUCOSE; Start 12/26/16 at 14:30 Glucose (Glutose) 15 gm Q15M PRN BUCCAL DECREASED GLUCOSE; Start 12/26/16 at 14: 30 Cholecalciferol (Vitamin D) 1,000 unit DAILY PO Last administered on 08:46; Admin Dose 1,000 UNIT; Start 12/28/16 at 09:00 Ondansetron HCl (Zofran Inj) 4 mg Q6H PRN IV NAUSEA AND/OR VOMITING Last administered on 01/15/17 09:50; Admin Dose 4 MG; Start 01/01/17 at 10:00 Haloperidol (Haldol) 2 mg Q4H PRN IM AGITATION/ANXIETY Last administered on 22:46; Admin Dose 2 MG; Start 01/08/17 at 01:30 Acetaminophen (Tylenol Tab) 650 mg Q6H PRN PO PAIN AND OR ELEVATED TEMP Last administered on 01/16/17 10:25; Admin Dose 650 MG; Start 01/08/17 at 22:30 Quetiapine Fumarate (Seroquel) 25 mg QHS PRN PO agitation/hallucinations Last administered on 01/09/17 22:15; Admin Dose 25 MG; Start 01/09/17 at 21:00 Morphine Sulfate (morphine) 2 mg Q8H PRN IV PAIN LEVEL 6-10 Last administered on 01/19/17 16:02; Admin Dose 2 MG; Start 01/11/17 at 14:00 Clonidine (Catapres) 0.1 mg Q6H PRN PO hypertension Last administered on 02:41; Admin Dose 0.1 MG; Start 01/14/17 at 02:30 Hydralazine HCl (Apresoline) 25 mg Q6H PRN IV ELEVATED SYSTOLIC BP Last administered on 01/14/17 07:04; Admin Dose 25 MG; Start 01/14/17 at 07:00 Insulin Glargine (Lantus) 5 unit DAILY@20 SC Last administered on 02/12/17 22 :12; Admin Dose 5 UNIT; Start 01/17/17 at 20:00 Tacrolimus (Prograf) 2 mg Q12 PO Last administered on 02/13/17 08:48; Admin Dose 2 MG; Start 01/18/17 at 09:00 IV Flush (NS 10 ml) 10 ml PRN PRN IV IV PROTOCOL Last administered on 11:54; Admin Dose 10 ML; Start 01/19/17 at 12:30 Acetaminophen/ Hydrocodone Bitart ([place] (5/325)) 1 tab Q8H PRN PO PAIN Last administered on 02/08/17 15:15; Admin Dose 1 TAB; Start 01/19/17 at 14:30 Metoprolol Tartrate (Lopressor) 50 mg BID PO Last administered on 02/12/17 22 :11; Admin Dose 50 MG; Start 01/23/17 at 21:00 Benazepril HCl (Lotensin) 10 mg BID PO Last administered on 02/13/17 08:48; Admin Dose 10 MG; Start 01/31/17 at 21:00 Tobramycin/ Dexamethasone (Tobradex Oph Drop) 2 drop TID LEFT EYE Last administered on 02/13/17 12:03; Admin Dose 2 DROP; Start 02/09/17 at 21:00 RAMON KEMP MD Feb 13, 2017 17:11
[2017-02-13] MEDS ORDERED: HYDR-3498 PO (19:04)
[2017-02-13] MEDS ORDERED: CLON0.1T14 PO (19:04)
[2017-02-13] MEDS ORDERED: LINA5TAB PO (19:04)
--- NOTE | 2017-02-13 19:11 | DS ---
Date/Time of Note Date/Time of Note DATE: 02/13/17 TIME: 19:11 Discharge Summary Admission/Discharge Info Admit Date/Time Dec 26, 2016 at 13:22 Discharge Date/Time Hospital Course SUBJECTIVE DATA: No acute events. Patient is alert, looks comfortable. No fevers. ANTIMICROBIALS: Zyvox #8 OBJECTIVE DATA: GENERAL: Chronically ill-appearing, elderly woman, who is awake, in no distress. HEENT: Head atraumatic, normocephalic. Sclerae anicteric. Buccal mucosa dry. NECK: Supple. CHEST: Rise symmetrical. Breath sounds diminished at the bases. HEART: S1, S2. ABDOMEN: Soft, bowel sounds present. EXTREMITIES: With left stump with gangrenous changes and open wound. The right foot dry necrotic wound ASSESSMENT: 1. 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 2. Severe peripheral arterial disease, failed multiple revascularization procedures. 3. History of kidney transplant, remains on immunosuppressive therapy. 4. Resolved diarrhea, on empiric oral vancomycin. 5. Diabetes. 6. History of tpiffbjx-ahbvpbbk-vmrn-lactamase urinary tract infection. 7. R foot gangrene with open wound==> cx + E coli ESBL==> treated PLAN: Clinically unchanged. Vascular surgery rec-s noted, will dc abx, continue local wound care ?dc plan staff Home Meds Active Scripts Linagliptin (TRADJENTA) 5 Mg Tablet, 5 MG PO DAILY, #30 TAB Prov:TIM BENNETT 02/13/17 Hydrocodone Bit-Acetaminophen (Hydrocodone Bit-APAP) 5-325MG Tablet, 1 TAB PO Q8H Y for PAIN for 14 Days, TAB Prov:TIM BENNETT 02/13/17 Clonidine Hcl* (Catapres*) 0.1 Mg Tablet, 0.1 MG PO Q6H Y for hypertension for 30 Days, TAB Prov:TIM BENNETT 02/13/17 Hydrocodone Bit-Acetaminophen (Hydrocodone Bit-APAP) 5-325MG Tablet, 1 TAB PO Q8 , #30 TAB Prov:TIM BENNETT 01/03/17 Gabapentin* (Gabapentin*) 100 Mg Capsule, 100 MG PO TID, #90 CAP Prov:HELEN ANDREWS NP 12/09/16 Metoprolol Tartrate* (Lopressor*) 25 Mg Tab, 75 MG PO BID, #60 TAB Prov:HELEN ANDREWS V. POUNCER 12/09/16 Benazepril Hcl* (Benazepril Hcl*) 10 Mg Tablet, 10 MG PO DAILY, #30 TAB Prov:ANDREWSKODAKA V. POUNCER 12/09/16 Clopidogrel Bisulfate (Clopidogrel) 75 Mg Tablet, 75 MG PO DAILY, #30 TAB Prov:HELEN ANDREWS V. POUNCER 12/09/16 Reported Medications Omeprazole* (Omeprazole*) 40 Mg Capsule., 40 MG PO DAILY, #30 CAP 11/12/16 Aspirin (Low Dose Aspirin) 81 Mg Tablet.dr, 81 MG PO DAILY, #30 TAB 11/12/16 Folic Acid* (Folic Acid*) 1 Mg Tablet, 1 MG PO DAILY, TAB 11/12/16 Hydrocodone/Acetaminophen ([place] 5-325 Tablet) 1 Each Tablet, 1 EACH PO Q6 Y for PAIN, TAB 11/12/16 Tacrolimus* (Tacrolimus*) 1 Mg Capsule, 2 MG PO Q12, CAP 09/26/16 Cholecalciferol* (Vitamin D3*) 1,000 Unit Tablet, 1 TAB PO DAILY, #30 06/03/16 Mycophenolate Mofetil (Cellcept) 250 Mg Capsule, 1000 MG PO BID 07/31/12 Diltiazem Hcl (Diltiazem Er) 180 Mg Capsule.cr, 180 MG PO DAILY 07/30/12 Discontinued Reported Medications Famotidine* (Famotidine*) 40 Mg Tablet, 40 MG PO HS, #30 TAB 11/12/16 Discontinued Scripts Doxycycline Hyclate* (Doxycycline Hyclate*) 100 Mg Tablet., 100 MG PO BID for 14 Days, #28 TAB Prov:HELEN ANDREWS V. POUNCER 12/09/16 Levofloxacin* (Levofloxacin*) 500 Mg Tablet, 500 MG PO DAILY for 14 Days, #28 TAB Prov:HELEN ANDREWS V. POUNCER 12/09/16 Follow-up Plan FU with Primary MD X 1 WEEK FU with vascular surgery as recommended Call 911 or go to the nearest hospital if symptoms get worse. Patient/friend verbalized understanding dc instructions Dw Dr mantilla/staff Primary Care Provider Guicho Nowak Pending Labs Laboratory Tests Test 02/12/17 22:07 02/13/17 07:51 02/13/17 12:03 02/13/17 17:47 Bedside Glucose 115mg/dL (70-220) 81mg/dL (70-220) 114mg/dL (70-220) 86mg/dL (70-220) TIM BENNETT Feb 13, 2017 19:11
--- NOTE | 2017-02-13 20:03 | CONS ---
Date/Time of Note Date/Time of Note DATE: 02/13/17 TIME: 20:01 Assessment/Plan Assessment/Plan Chief Complaint/Hosp Course IMP: 1.Aei-yh-ulqafm test 10/2016 with no ischemia/only scar/NL EF. Negative trop x 3. 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 Encephalopathy-improved 7. Hyponatremia-improved Recc: -Continue asa/plavix -Decrease doses of BB/ACEI given marginal BP and intermittent holding -Local wound care -Continue abx's and f/u cx data -Continue immuonosuppresives -Follow volume status closely -awaiting placemment Problems: Consultation Date/Type/Reason Admit Date/Time Dec 26, 2016 at 13:22 Initial Consult Date 12/27/16 Type of Consultation: cardiology Reason for Consultation HTN Referring Provider: LES GILLILAND Exam/Review of Systems Vital Signs Vitals Vital Signs Date Time Temp Pulse Resp B/P Pulse Ox O2 Delivery O2 Flow Rate FiO2 02/13/17 13:45 97.9 77 17 116/56 100 02/10/17 09:21 Room Air Intake and Output 02/12/17 02/12/17 02/13/17 15:00 23:00 07:00 Intake Total 1040 ml 400 ml Balance 1040 ml 400 ml Exam Review of Systems: CONSTITUTIONAL: No fevers, chills. PULMONARY: No sob CARDIOVASCULAR: No chest pain/palpitations GASTROINTESTINAL: No nausea/vomiting. GENITOURINARY: No hematuria/dysuria. MUSCULOSKELETAL: mild pain in foot PSYCHIATRIC: The patient denies depression. NEUROLOGIC: No weakness Constitutional: alert Psych: no complaints Head: normocephalic ENMT: mucosa pink and moist Neck: jvd (8 cm water), supple Respiratory: diminished breath sounds (at bases/B) Cardiovascular: regular rate and rhythm Gastrointestinal: non-tender, soft Musculoskeletal: muscle weakness (generalized), other (s/p LLE amputation) Extremities: other (RLE covered by dressing) Neurological: other (No focal deficits) Results Result Diagram: 02/11/17 0526 02/11/17 0526 Results 24 hrs Laboratory Tests Test 02/12/17 22:07 02/13/17 07:51 02/13/17 12:03 02/13/17 17:47 Bedside Glucose 115 81 114 86 Medications Medications Current Medications Famotidine (Pepcid) 40 mg HS PO Last administered on 02/12/17 22:09; Admin Dose 40 MG; Start 12/26/16 at 21:00 Folic Acid (Folic Acid) 1 mg DAILY PO Last administered on 02/13/17 08:47; Admin Dose 1 MG; Start 12/27/16 at 09:00 Gabapentin (Neurontin) 100 mg TID PO Last administered on 02/13/17 12:07; Admin Dose 100 MG; Start 12/26/16 at 21:00 Mycophenolate Mofetil (Cellcept) 1,000 mg BID PO Last administered on 08:47; Admin Dose 1,000 MG; Start 12/26/16 at 21:00 Pantoprazole (Protonix Tab) 40 mg DAILY@06 PO Last administered on 02/13/17 05:06; Admin Dose 40 MG; Start 12/27/16 at 06:00 Diagnostic Test (Pha) (Accu-Chek) 1 ea 02 XX ; Start 12/27/16 at 02:00 Miscellaneous Information 1 ea NOTE XX ; Start 12/26/16 at 14:30 Glucose (Glutose) 15 gm Q15M PRN PO DECREASED GLUCOSE; Start 12/26/16 at 14:30 Glucose (Glutose) 22.5 gm Q15M PRN PO DECREASED GLUCOSE; Start 12/26/16 at 14:30 Dextrose (D50w Syringe) 25 ml Q15M PRN IV DECREASED GLUCOSE; Start 12/26/16 at 14:30 Dextrose (D50w Syringe) 50 ml Q15M PRN IV DECREASED GLUCOSE; Start 12/26/16 at 14:30 Glucagon (Glucagen) 1 mg Q15M PRN IM DECREASED GLUCOSE; Start 12/26/16 at 14:30 Glucose (Glutose) 15 gm Q15M PRN BUCCAL DECREASED GLUCOSE; Start 12/26/16 at 14: 30 Cholecalciferol (Vitamin D) 1,000 unit DAILY PO Last administered on 08:46; Admin Dose 1,000 UNIT; Start 12/28/16 at 09:00 Ondansetron HCl (Zofran Inj) 4 mg Q6H PRN IV NAUSEA AND/OR VOMITING Last administered on 01/15/17 09:50; Admin Dose 4 MG; Start 01/01/17 at 10:00 Haloperidol (Haldol) 2 mg Q4H PRN IM AGITATION/ANXIETY Last administered on 22:46; Admin Dose 2 MG; Start 01/08/17 at 01:30 Acetaminophen (Tylenol Tab) 650 mg Q6H PRN PO PAIN AND OR ELEVATED TEMP Last administered on 01/16/17 10:25; Admin Dose 650 MG; Start 01/08/17 at 22:30 Quetiapine Fumarate (Seroquel) 25 mg QHS PRN PO agitation/hallucinations Last administered on 01/09/17 22:15; Admin Dose 25 MG; Start 01/09/17 at 21:00 Morphine Sulfate (morphine) 2 mg Q8H PRN IV PAIN LEVEL 6-10 Last administered on 01/19/17 16:02; Admin Dose 2 MG; Start 01/11/17 at 14:00 Clonidine (Catapres) 0.1 mg Q6H PRN PO hypertension Last administered on 02:41; Admin Dose 0.1 MG; Start 01/14/17 at 02:30 Hydralazine HCl (Apresoline) 25 mg Q6H PRN IV ELEVATED SYSTOLIC BP Last administered on 01/14/17 07:04; Admin Dose 25 MG; Start 01/14/17 at 07:00 Insulin Glargine (Lantus) 5 unit DAILY@20 SC Last administered on 02/12/17 22 :12; Admin Dose 5 UNIT; Start 01/17/17 at 20:00 Tacrolimus (Prograf) 2 mg Q12 PO Last administered on 02/13/17 08:48; Admin Dose 2 MG; Start 01/18/17 at 09:00 IV Flush (NS 10 ml) 10 ml PRN PRN IV IV PROTOCOL Last administered on 11:54; Admin Dose 10 ML; Start 01/19/17 at 12:30 Acetaminophen/ Hydrocodone Bitart ([place] (5/325)) 1 tab Q8H PRN PO PAIN Last administered on 02/08/17 15:15; Admin Dose 1 TAB; Start 01/19/17 at 14:30 Metoprolol Tartrate (Lopressor) 50 mg BID PO Last administered on 02/12/17 22 :11; Admin Dose 50 MG; Start 01/23/17 at 21:00 Benazepril HCl (Lotensin) 10 mg BID PO Last administered on 02/13/17 08:48; Admin Dose 10 MG; Start 01/31/17 at 21:00 Tobramycin/ Dexamethasone (Tobradex Oph Drop) 2 drop TID LEFT EYE Last administered on 02/13/17 12:03; Admin Dose 2 DROP; Start 02/09/17 at 21:00 TIMOTHY CORTES Feb 13, 2017 20:03
[2017-02-13 20:16] VITALS: BP 111/62; RESP 18
[2017-02-13] MEDS: INSULIN GLARGINE [LANtus] 3 ML PEN SC SCH (20:20)
[2017-02-13] MEDS: FAMOTIDINE 20 MG TAB PO SCH (20:21)
== END 2017-02-13 21:30 | disposition home or self-care (01) | DRG 239 ==
LOC: PP2 13:22
PROVIDERS: ADMIT Internal Medicine; ATTEND Internal Medicine
PROC: 30233N1 Transfusion of Nonautologous Red Blood Cells into Peripheral Vein, Percutaneous Approach (ICD-10-PCS; 2017-01-06)
PROC: 0Y6D0Z1 Detachment at Left Upper Leg, High, Open Approach (ICD-10-PCS; principal; 2017-01-13 15:00)
PROC: 02HV33Z Insertion of Infusion Device into Superior Vena Cava, Percutaneous Approach (ICD-10-PCS; 2017-01-19)
DX: E11.52 Type 2 diabetes mellitus with diabetic peripheral angiopathy with gangrene (principal); G93.40 Encephalopathy, unspecified; R64 Cachexia; E43 Unspecified severe protein-calorie malnutrition; R65.10 Systemic inflammatory response syndrome (SIRS) of non-infectious origin without acute organ dysfunction; T87.43 Infection of amputation stump, right lower extremity; T81.72XA Complication of vein following a procedure, not elsewhere classified, initial encounter; E44.0 Moderate protein-calorie malnutrition; E87.1 Hypo-osmolality and hyponatremia; I70.263 Atherosclerosis of native arteries of extremities with gangrene, bilateral legs; Z68.1 Body mass index [BMI] 19.9 or less, adult; Z94.0 Kidney transplant status; I70.261 Atherosclerosis of native arteries of extremities with gangrene, right leg; T81.4XXA Infection following a procedure, initial encounter; T87.44 Infection of amputation stump, left lower extremity; T87.89 Other complications of amputation stump; E11.621 Type 2 diabetes mellitus with foot ulcer; I10 Essential (primary) hypertension; D63.1 Anemia in chronic kidney disease; B95.2 Enterococcus as the cause of diseases classified elsewhere; B96.20 Unspecified Escherichia coli [E. coli] as the cause of diseases classified elsewhere; I70.222 Atherosclerosis of native arteries of extremities with rest pain, left leg; Y83.5 Amputation of limb(s) as the cause of abnormal reaction of the patient, or of later complication, without mention of misadventure at the time of the procedure; Z89.421 Acquired absence of other right toe(s); Z16.21 Resistance to vancomycin; Z79.4 Long term (current) use of insulin; Z87.441 Personal history of nephrotic syndrome; Z87.440 Personal history of urinary (tract) infections; D64.89 Other specified anemias; R19.7 Diarrhea, unspecified
CPT/HCPCS: 36430; 36569; 70450; 70553; 71010; 71260; 74177; 76937; 80048; 80053; 82550; 82553; 82962; 83036; 84484; 85025; 85610; 85730; 86850; 86900; 86901; 86920; 87040; 87070; 87075; 87081; 87086; 88307; 88311; 93005; 93923; 97003; 97110; 97116; 97164; 97166; 97530; 97535; C1769; J0360; J0690; J1335; J1630; J1815; J2060; J2185; J2250; J2270; J2370; J2405; J2765; J2795; J3010; J3370; J3480; J7030; J7040; J7042; J7507; J7517; L8440; P9016; Q9967

== ENCOUNTER 2017-03-18 08:41 | Day surgery (SDC) | payer OTHER ==
[2017-03-18] VITALS (12 sets, daily range): BP systolic 103–123; BP diastolic 54–66; PULSE 52–60; RESP 16–30; Ht 152.4 cm; Wt 40.2 kg
[~2017-03-18] VITALS: Ht 152.4 cm; Wt 40.2 kg
[~2017-03-18 08:41] MED LIST changes: +CLON0.1T14 PO; -DOXY100T20 PO; -FAMO40TA52 PO; +HYDR-3498 PO; -LEVO500T10 PO; +LINA5TAB PO
[2017-03-18] MEDS ORDERED: METO-407 PO (09:22)
[2017-03-18] MEDS ORDERED: BENA20TA48 PO (09:23)
[2017-03-18] MEDS ORDERED: TACR1CAP26 PO (09:24)
[2017-03-18] MEDS ORDERED: PRED5TAB PO (09:27)
[2017-03-18] MEDS ORDERED: ESOM40CA PO (09:28)
[2017-03-18] MEDS ORDERED: LANT3I SC (09:28)
[2017-03-18] MEDS ORDERED: NOVO3I SC (09:29)
[2017-03-18] MEDS ORDERED: SIMV20TA PO (09:29)
[2017-03-18] MEDS ORDERED: HYDR-3672 PO (09:30)
[2017-03-18] MEDS ORDERED: DOCU-159 PO (09:30)
--- NOTE | 2017-03-18 09:35 | HPN ---
Date/Time of Note Date/Time of Note DATE: 03/18/17 TIME: 09:35 Interval H&P Admission Note Pt. seen H&P reviewed: No system changes WILD DUARTE MD Mar 18, 2017 09:35
[2017-03-18] MEDS ORDERED: BUPIVACAINE 0.25% (MPF) 30 ML INJ ONE (09:40)
[2017-03-18] MEDS ORDERED: LIDOCAINE 1% (MPF) 30 ML INJ ONE (09:40)
[2017-03-18] MEDS ORDERED: MIDAZOLAM 1 MG/ML 2 ML INJ ONE (09:44)
[2017-03-18] MEDS ORDERED: CEFAZOLIN 1 GM INJ ONE (09:44)
[2017-03-18] MEDS ORDERED: PROPOFOL 20 ML ONE (09:44)
[2017-03-18] MEDS ORDERED: FENTAnyl 50 MCG/ML VIAL ONE (09:45)
[2017-03-18] MEDS ORDERED: MEPERIDINE 25 MG INJ IV PRN (10:30)
[2017-03-18] MEDS ORDERED: HYDROmorphONE (0.2 MG/ML) 10ML SYG IV PRN ×3 (10:30)
[2017-03-18] MEDS ORDERED: FENTAnyl 50 MCG/ML VIAL IV PRN ×2 (10:30)
[2017-03-18] MEDS ORDERED: ONDANSETRON 4 MG INJ IV PRN (10:30)
[2017-03-18] MEDS ORDERED: hydrALAzine 20 MG INJ IV PRN (10:30)
[2017-03-18] MEDS ORDERED: LABETALOL HCL 20MG INJ IV PRN (10:30)
--- NOTE | 2017-03-18 11:02 | SIPON ---
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
--- NOTE | 2017-03-18 11:05 | PDOCDIS ---
Discharge Instructions DIAGNOSIS Discharge Diagnosis LEFT STUMP WOUND CONDITION Patient Condition: Good HOME CARE INSTRUCTIONS: Diet Instructions: Regular ACTIVITY: Activity Restrictions: Do not Drive Do not operate Machinery Do not operate Power Tool Avoid Heavy Housework Keep Limb Elevated Activity Restrictions Comment: NO SHOWER UNTIL DRESSING HAS BEEN CHANGED IN THE OFFICE ON FridayMAR 20 FOLLOW UP/APPOINTMENTS Follow-up Plan FOLLOWUP WITH FELI[facility] ON FridayFebruary TO REMOVE THE DRESSING IN AM AT [facility] LEAVE DRESSING INTACT UNTIL OFFICE VISIT DO NOT SHOWER UNTIL WOUND DRESSING HAS BEEN EVALUATED BY FELICIA IN THE OFFICE (SPONGE BATH IS FINE) WILD DUARTE MD Mar 18, 2017 11:05
--- NOTE | 2017-03-18 11:59 | OPR ---
DATE OF OPERATION: 03/18/2017 SURGEON: Aung Valencia MD PREOPERATIVE DIAGNOSIS: Left lower extremity nonhealing wound of an above-knee amputation stump. POSTOPERATIVE DIAGNOSIS: Left lower extremity nonhealing wound of an above- knee amputation stump. ANESTHESIA: Local with moderate sedation. ESTIMATED BLOOD LOSS: Minimal. COMPLICATIONS: None. INDICATIONS: This is a 61-year-old female with history of bilateral lower extremity atherosclerosis and gangrene in which multiple interventions had been done of her left lower extremity in order to salvage her limb. Unfortunately, on the patient's admission to the hospital back in December, the patient's left lower extremity was not salvageable and was not amenable for any endovascular or open vascular surgery procedures. Subsequently, the patient underwent left lower extremity above-knee amputation. Postoperatively, she did fine; however, the patient did develop an eschar on the medial aspect of the AKA stump that gradually enlarged; however, stayed stable throughout the past few months. It seems that the patient's eschar at this point will need to be unroofed and revision of AKA needs to be done in order to close her wound and allow the patient to be fitted for a prosthetic in order for resumption of her ambulation. Therefore, the patient was informed of the risks, benefits and alternatives of the procedure. Risks including but not limited to bleeding, thrombosis, myocardial infarction, , stroke, infection, possible future revision, pneumonia, hematoma, nerve injury, and the patient has agreed to proceed. OPERATION PERFORMED: 1. Left above knee amputation revision. 2. Posterior muscle rotation flap to cover the medial aspect. DESCRIPTION OF PROCEDURE: The patient was brought into the operating room table and positioned in supine position on the operating room table. The left lower extremity was then prepped and draped in usual standard sterile fashion. Preoperative antibiotics were given. Anesthesia initiated the appropriate sedation. Patient was comfortable and tolerated it well. The correct site was marked and confirmed. A timeout was performed. Using our sharp scissors, we went ahead and debrided the eschar from the medial aspect of the AKA stump laterally as it spanned across the previous AKA stump incision site as well. Once that was unroofed, there seemed to be healthy tissue; however, we needed to debride further in order to provide adequate bleeding and viable tissue. Therefore, Versajet debridement was used in order to debride the superficial layer of skin, subcutaneous tissue and muscle. The debridement size was 10 cm x 4 cm x 2 cm depth (~50 cm2 area). Once this was performed reapproximation of the anterior and posterior flaps were evaluated and it seems that on the medial aspect, we had to create an undermining in a Y- incision fashion in order to bring the skin layer together. When this was performed, the patient had an area of her neurovascular bundle exposed; therefore, a posterior rotation flap was created by dissecting the posterior flap of the AKA stump and traversed it medially in order to cover the neurovascular bundle. Once this was performed, this was secured with 3-0 Vicryl suture. Upon completion of this, the wound was irrigated and using a 2- 0 nylon suture, mattress interrupted sutures were placed across the revised stump. Following that, between each mattress suture, we placed a simple 3-0 nylon suture in an interrupted fashion. The patient tolerated the procedure well and was taken to the postanesthesia care unit in stable condition. All instrument, sponge and needle counts were correct x2. Dictated By: AUNG PRATHER/SIRISHA Conf#: [id number] DID#: [id number] ISABEL
== END 2017-03-18 12:55 | disposition home or self-care (01) ==
LOC: SDS 08:41
PROVIDERS: ATTEND Student in an Organized Health Care Education/Training Program
DX: I96 Gangrene, not elsewhere classified (principal); I12.9 Hypertensive chronic kidney disease with stage 1 through stage 4 chronic kidney disease, or unspecified chronic kidney disease; N18.9 Chronic kidney disease, unspecified; E11.9 Type 2 diabetes mellitus without complications; E78.5 Hyperlipidemia, unspecified
CPT/HCPCS: 11043; 82962; 88304; J0690; J1170; J2250; J3010; Z7512; Z7610

== ENCOUNTER 2017-06-14 14:03 | Inpatient (IN) | END 2017-06-26 03:40 | disposition EXP | DRG 300 ==